=== PATIENT | female | born 1945 | race Caucasian/White ===

== ENCOUNTER 2016-07-11 23:00 | Inpatient (IN) | payer MEDICARE, MEDICAID ==
[2016-07-11] MEDS ORDERED: NORMAL SALINE 1000 ML 1,000 ML IV ONE (23:37)
[2016-07-11 23:45] LABS: VENOUS BLOOD HCO3 32.3 mmol/L (20-32); VENOUS BLOOD PCO2 60.3 mmHg (35-63); VENOUS BLOOD PH 7.35 (7.30-7.42)
[2016-07-11 23:47] LABS: ABSOLUTE EOSINOPHILS # (AUTO) 0.1 10^3/uL (0.0-0.6); ABSOLUTE LYMPHOCYTES (AUTO) 1.2 10^3/uL (0.5-4.7); ABSOLUTE MONOCYTES (AUTO) 0.8 10^3/uL (0.1-1.4); ABSOLUTE NEUT (AUTO) 6.4 10^3/uL (1.7-8.2); BASOPHILS % (AUTO) 0.1 % (0-2); EOSINOPHILS % (AUTO) 0.6 % (0-6); HEMATOCRIT 35.5 % (36.0-47.0); HEMOGLOBIN 11.8 g/dL (12.0-15.5); HGB HCT DIFFERENCE -0.1; LYMPHOCYTES % (AUTO) 13.7 % (13-45); MEAN CORPUSCULAR HEMOGLOBIN 29.1 pg (27.0-33.4); MEAN CORPUSCULAR HGB CONC 33.4 g/dL (32.0-36.0); MEAN CORPUSCULAR VOLUME 87 fl (80-97); MONOCYTES % (AUTO) 9.1 % (3-13); RED BLOOD COUNT 4.08 10^6/uL (3.72-5.28); RED CELL DISTRIBUTION WIDTH 15.5 % (11.5-14.0); SEGMENTED NEUTROPHILS % (AUTO) 76.5 % (42-78); WHITE BLOOD COUNT 8.4 10^3/uL (4.0-10.5)
[2016-07-11 23:53] LABS: PROTHROMBIN TIME 13.2 SEC (11.4-15.4)
[2016-07-11 23:59] LABS: ALANINE AMINOTRANSFERASE 31 U/L (9-52); ALKALINE PHOSPHATASE 133 U/L (38-126); ANION GAP 8 (5-19); ASPARTATE AMINO TRANSFERASE 20 U/L (14-36); BILIRUBIN,TOTAL 0.2 mg/dL (0.2-1.3); BLOOD UREA NITROGEN 42 mg/dL (7-20); CALCIUM 8.8 mg/dL (8.4-10.2); CARBON DIOXIDE 36 mmol/L (22-30); CHLORIDE 98 mmol/L (98-107); CREATINE KINASE 43 U/L (30-135); GLUCOSE 159 mg/dL (75-110); POTASSIUM 3.7 mmol/L (3.6-5.0); SODIUM 142.1 mmol/L (137-145); TOTAL PROTEIN 5.7 g/dL (6.3-8.2)
[2016-07-12 00:15] LABS: TROPONIN I 0.064 ng/mL
[2016-07-12 00:56] LABS: AMORPHOUS SEDIMENT,URINE TRACE /HPF; APPEARANCE,URINE CLOUDY; BILIRUBIN,URINE NEGATIVE (NEGATIVE); GLUCOSE, URINE NEGATIVE (NEGATIVE); KETONES,URINE NEGATIVE (NEGATIVE); LEUKOCYTE ESTERASE,URINE LARGE (NEGATIVE); NITRITE,URINE POSITIVE (NEGATIVE); PROTEIN,URINE NEGATIVE (NEGATIVE); URIC ACID CRYSTALS,URINE TOO NUMEROUS TO CNT /HPF; URINE SPECIFIC GRAVITY 1.014; UROBILINOGEN,URINE NEGATIVE mg/dL (<2.0)
[2016-07-12] MEDS: MAGNESIUM SULFATE/D5W 100 ML IV SCH ×2 (01:25)
--- NOTE | 2016-07-12 03:13 | ER Document Report ---
ED Respiratory Problem - General Time seen by provider: 01:20 Mode of Arrival: Medic Information source: Patient TRAVEL OUTSIDE OF THE [place] IN LAST 30 DAYS: No - HPI Patient complains to provider of: COPD, Short of breath Onset: Other - see HPI Context: Hx COPD Associated symptoms: Short of breath <SERGIO MEZA - Last Filed: 07/12/16 03:57> <LANA GARCIA - Last Filed: 07/12/16 05:59> - General Chief Complaint: Shortness Of Breath Stated Complaint: SHORTNESS OF BREATH Notes: Patient is a 71 year old female presenting to the emergency department complaining of shortness of breath for the past 4 days. Patient is from the [facility] and she was recently discharged from the hospital on . Patient continued her IV antibiotics until 06/21 and her steroid was recently decreased from 60-30mg. Patient states she had bronchitis in March and had pneumonia from May to May. Patient denies any chest pain or discomfort. Patient states her breathing got worse today. Patient had a 99.8 F temperature this afternoon. Patient received 2 nebulizer treatments at [facility] and 1 125 mg Solumedrol treatment from EMS in [facility]. 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 Villafana next week. (SERGIO MEZA) - Related Data Allergies/Adverse Reactions: Sulfa (Sulfonamide Antibiotics) Allergy (Intermediate, Verified 10/01/15 18:47) adhesive tape Allergy (Verified 10/01/15 18:47) atorvastatin calcium [From Lipitor] Allergy (Verified 10/01/15 18:47) celecoxib [From Celebrex] Allergy (Verified 10/01/15 18:47) Past Medical History - General Information source: Patient - Social History Smoking Status: Former Smoker Family History: Arthritis, CAD, CVA, DM, Hypertension - Past Medical History Cardiac Medical History: Reports: Hx Atrial Fibrillation, Hx Congestive Heart Failure, Hx Heart Attack, Hx Hypertension - essential, Hx Pulmonary Embolism, Hx Heart Murmur Pulmonary Medical History: Reports: Hx Asthma, Hx Bronchitis, Hx COPD, Hx Pneumonia - Recent history of MRSA pneumonia., Hx Sleep Apnea Endocrine Medical History: Reports: Hx Diabetes Mellitus Type 2 Renal/ Medical History: Reports: Hx Renal Insufficiency GI Medical History: Reports: Hx Gastroesophageal Reflux Disease, Hx Hiatal Hernia Musculoskeltal Medical History: Reports Hx Arthritis, Reports Hx Fibromyalgia, Reports Hx Gout, Reports Hx Muscle Weakness Psychiatric Medical History: Reports: Hx Anxiety, Hx Depression Infectious Medical History: Reports: Hx MRSA Past Surgical History: Reports: Hx Appendectomy, Hx Cholecystectomy, Hx Hysterectomy, Hx Orthopedic Surgery - Multiple left hip or seizures, 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 - Immunizations Hx Diphtheria, Pertussis, Tetanus Vaccination: Yes Hx Pneumococcal Vaccination: 05/20/13 <SERGIO MEZA - Last Filed: 07/12/16 03:57> Review of Systems - Review of Systems Constitutional: No symptoms reported EENT: No symptoms reported Cardiovascular: No symptoms reported Respiratory: See HPI, Short of breath, Wheezing Gastrointestinal: No symptoms reported Genitourinary: No symptoms reported Female Genitourinary: No symptoms reported Musculoskeletal: No symptoms reported Skin: No symptoms reported Hematologic/Lymphatic: No symptoms reported Neurological/Psychological: No symptoms reported -: Yes All other systems reviewed and negative <SERGIO MEZA - Last Filed: 07/12/16 03:57> Physical Exam - Vital signs Interpretation: Hypotensive, Tachycardic - General General appearance: Alert In distress: Mild - HEENT Head: Normocephalic, Atraumatic Eyes: Normal Pupils: PERRL Mucous membranes: Normal - Respiratory Respiratory status: Retractions Chest status: Nontender Breath sounds: Wheezing Chest palpation: Normal - Cardiovascular Rhythm: Regular Heart sounds: Normal auscultation - Abdominal Inspection: Normal Distension: No distension Bowel sounds: Normal Tenderness: Nontender Organomegaly: No organomegaly - Back Back: Normal, Nontender - Extremities General upper extremity: Normal inspection, Normal ROM, Normal strength General lower extremity: Normal inspection, Normal ROM, Normal strength - Neurological Neuro grossly intact: Yes Cognition: Normal Orientation: AAOx4 Upper Tract Coma Scale Eye Opening: Spontaneous Duy Coma Scale Verbal: Oriented Upper Tract Coma Scale Motor: Obeys Commands Duy Coma Scale Total: 15 Speech: Normal - Psychological Associated symptoms: Normal affect, Normal mood - Skin Skin Temperature: Warm Skin Moisture: Dry <SERGIO MEZA - Last Filed: 07/12/16 03:57> Course - Laboratory Result Diagrams: 07/11/16 23:25 07/11/16 23:25 <SERGIO MEZA - Last Filed: 07/12/16 03:57> - Laboratory Result Diagrams: 07/11/16 23:25 07/11/16 23:25 <LANA GARCIA - Last Filed: 07/12/16 05:59> - Re-evaluation Re-evalutation: 07/12/16 05:52 Patient is a 71-year-old female with a recent hospital admission for pneumonia and ESBL urine. Patient comes in with difficulty breathing. Patient was feeling better after side measuring, DuoNeb. Patient is also given magnesium. Patient was initially tachycardic and hypotensive but has responded well to fluids. Patient does still have episodes of tachycardia when she is asleep. No evidence for atrial fibrillation. Patient states that she is having increasing trouble breathing over the last 4 days. Patient will be referred to the hospital service for admission due to her COPD exacerbation today. No evidence for pneumonia. Patient has been afebrile. Patient is concerned about her urine and does have some white blood cells leuk esterase. Ertapenem was started. Cultures have been sent. (LANA GARCIA) - Vital Signs Vital signs: Temp Pulse Resp BP Pulse Ox 98.1 F 130/70 H 95 07/11/16 23:04 07/12/16 01:31 07/12/16 01:31 (SERGIO MEZA) (LANA GARCIA) - Laboratory Laboratory results interpreted by me: 07/11/16 07/11/16 07/11/16 23:25 23:25 23:25 Hgb 11.8 L Hct 35.5 L RDW 15.5 H VBG HCO3 32.3 H Carbon Dioxide 36 H BUN 42 H Est GFR ( Amer) 53 L Est GFR (Non-Af Amer) 44 L Glucose 159 H Alkaline Phosphatase 133 H Total Protein 5.7 L Albumin 3.0 L Urine Nitrite Ur Leukocyte Esterase Urine Ascorbic Acid 07/12/16 00:34 Hgb Hct RDW VBG HCO3 Carbon Dioxide BUN Est GFR ( Amer) Est GFR (Non-Af Amer) Glucose Alkaline Phosphatase Total Protein Albumin Urine Nitrite POSITIVE H Ur Leukocyte Esterase LARGE H Urine Ascorbic Acid 40 H (SERGIO MEZA) (LANA GARCIA) Discharge <SERGIO MEZA - Last Filed: 07/12/16 03:57> - Discharge Admitting Provider: Hospitalist Unit Admitted: I[facility]U <LANA GARCIA - Last Filed: 07/12/16 05:59> - Discharge Clinical Impression: Obstructive sleep apnea, COPD exacerbation Urinary tract infection Qualifiers: Urinary tract infection type: catheter-associated UTI Indwelling urinary catheter type: indwelling urethral catheter Encounter type: initial encounter Qualified Code(s): T83.511A - Infection and inflammatory reaction due to indwelling urethral catheter, initial encounter Condition: Stable Disposition: ADMITTED INPATIENT Referrals: MUSA HODGSON MD [Primary Care Provider] - Follow up as needed Scribe Attestation: 07/12/16 05:59 I personally performed the services described in the documentation, reviewed and edited the documentation which was dictated to the scribe in my presence, and it accurately records my words and actions. (LANA GARCIA) Scribe Documentation <SERGIO MEZA - Last Filed: 07/12/16 03:57> <LANA GARCIA - Last Filed: 07/12/16 05:59> - Scribe Written by Liliane:: SEFERINO HANCOCK 07/12/16 0552 Acting as scribe for: Dr. Garcia (SERGIO MEZA) (LANA GARCIA)
[2016-07-12] MEDS ORDERED: IPRATROPIUM/ALBUTEROL 0.5-2.5 MG/3 ML AMPUL NEB ONE (04:26)
[2016-07-12] MEDS ORDERED: ERTAPENEM SODIUM INJ 1 GM VIAL IV ONE (04:27)
[2016-07-12] MEDS ORDERED: LEVALBUTEROL HCL NEB 0.63 MG/3 ML AMPUL NEB PRN (08:21)
[2016-07-12] MEDS ORDERED: VANCOMYCIN HCL 0 MG in DEXTROSE 5%-WATER 250 ML IV NR (08:30)
--- NOTE | 2016-07-12 09:04 | PDOC H&P ---
History of Present Illness Admission Date/PCP: 07[facility]12[facility]16 06[facility] Patient complains of: Dyspnea History of Present Illness: PORSHA WALDRON is a 71 year old female who is well known to the hospitalist and the emergency department. The patient presented to the emergency department from [facility] complaining of shortness of breath for the past 4 days. The patient has frequent readmissions due to recurrent pneumonia and UTIs associated with chronic indwelling catheter. She was recently discharged from the hospital on 06/10. Patient continued her IV antibiotics until 06/21 and her steroid was recently decreased from 60-30mg. Patient states she had bronchitis in March and had pneumonia from May to May. Patient denies any chest pain or discomfort. Patient states her breathing got worse just prior to presentation. Patient had a 99.8 F temperature the evening of presentation. Patient received 2 nebulizer treatments at [facility] and 125 mg Solumedrol treatment from EMS in [facility]. Patient states she has an appointment with her swinging cut off saw operator Dr. Ahuja next week. Upon presentation to emergency department the patient was found to have a significant white count and findings on UA a to suggest a urinary tract infection. Although the patient's chest x-ray did not show an overt area of pneumonia the patient is significantly congested and is requiring O2. The patient's been referred to the hospitalist remission and management. MEDICATIONS: The medications listed in this document may have been auto- populated from previous contact and may not been verified or reconciled. This may not be an accurate reflection of the patient's home medication(s); however, authors are unable to edit or delete the medications listed in this document as "home medications". Past Medical History Cardiac Medical History: Reports: Atrial Fibrillation, Congestive Heart Failure - Diastolic dysfunction, Myocardial Infarction, Hypertension - essential, Pulmonary Embolism Pulmonary Medical History: Reports: Chronic Obstructive Pulmonary Disease (COPD) , Pneumonia - Recurrent MRSA pneumonia., Sleep Apnea - Uses C Pap Endocrine Medical History: Reports: Diabetes Mellitus Type 2, Other - Adrenal insufficiency Renal/ Medical History: Reports: Chronic Kidney Disease - Stage II to 3 GI Medical History: Reports: Gastroesophageal Reflux Disease, Hiatal Hernia Musculoskeltal Medical History: Reports: Arthritis, Fibromyalgia, Gout, Other - Bedbound status Psychiatric Medical History: Reports: Depression, General Anxiety Disorder - Benzodiazepine dependency continuous, Other - Opiate dependency continuous Hematology: Reports: Anemia Infectious Medical History: Reports: Methicillin-Resistant Staph Aureus Past Surgical History Past Surgical History: Reports: Appendectomy, Cholecystectomy, Hysterectomy, Orthopedic Surgery - Multiple left hip or seizures, 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 Social History Information Source: Patient Occupation: Disabled, retired Lives with: [facility] Smoking Status: Former Smoker Frequency of Alcohol Use: None Hx Recreational Drug Use: No Drugs: None Hx Prescription Drug Abuse: No - Advance Directive Resuscitation Status: Do Not Resuscitate - Portable DO NOT RESUSCITATE DO NOT INTUBATE Surrogate healthcare decision maker:: Her granddaughter Family History Family History: Arthritis, CAD, CVA, DM, Hypertension Parental Family History Reviewed: Yes Children Family History Reviewed: Yes Sibling(s) Family History Reviewed.: Yes Medication/Allergy Home Medications: Fluticasone Propionate [Flonase Nasal [place] 50 Mcg/[place] 16 gm] 2 spray IH Q12 04/02/15 Olopatadine HCl [Patanol 0.1% Oph Soln 5 ml] 1 drop BTH_EYE DAILY 04/02/15 Tiotropium [place] [Spiriva Handihaler 18 mcg/dose (30 Dose)] 1 cap IH DAILY 09/12 Sennosides/Docusate 8.6-50 mg [Senna Plus Tablet] 1 each PO BID #60 tablet 04/06 Apixaban [Eliquis 2.5 mg Tablet] 2.5 mg PO BID 09/09/15 Cetirizine HCl [Zyrtec 10 mg Tablet] 10 mg PO QHS 09/09/15 Montelukast Sodium [Singulair 10 mg Tablet] 10 mg PO DAILY 09/09/15 Amlodipine Besylate [Norvasc 5 mg Tablet] 5 mg PO DAILY 11/07/15 Polyethylene Glycol 3350 [Miralax Powder 17 gm/Packet] 1 packet PO BID 11/07/15 Simethicone [Gas-X] 80 mg PO DAILY PRN 11/07/15 Melatonin 5 mg PO QHS 11/13/15 Ascorbic Acid [Vitamin C 500 mg Tablet] 500 mg PO BID 01/05/16 Benzonatate [Tessalon Perle 100 mg Capsule] 400 mg PO QHS 01/05/16 Clonidine HCl [Catapres 0.2 mg Tablet] 0.2 mg PO Q12 01/05/16 Duloxetine HCl [Cymbalta] 90 mg PO DAILY 01/05/16 Ferrous Sulfate [Feosol] 325 mg PO BID 01/05/16 Saccharomyces Boulardii [Florastor] 250 mg PO BID 01/05/16 Budesonide [Pulmicort Neb 0.5 mg/2 ml Ampul] 0.5 mg NEB RTQ12 ampul.neb Bupropion HCl [Wellbutrin 75 mg Tablet] 75 mg PO DAILY tablet 01/10/16 Albuterol Sulfate [Ventolin 0.083% Neb 2.5 mg/3 mL Ampul] 2.5 mg NEB RTQ6 PRN Ipratropium [place] [Atrovent 0.06% Nasal [place]] 1 spray NASL BID 02/12/16 Potassium Chloride [Klor-Con 10 Meq Tablet.sa] 20 meq PO Q12 tablet.sa Hydrocortisone Acetate [Hydrocortisone] 1 applic TD Q8 04/18/16 Mag Oxide/D3/Turmeric Rt Xt [Magnesium-Vit D3-Turmeric Cap] 400 mg PO BID Menthol [Biofreeze] 1 applic TD Q8 PRN 04/18/16 Baclofen [Baclofen 10 mg Tablet] 10 mg PO TID #20 tablet 04/23/16 Lidocaine [Lidoderm 5% (700 mg) Transdermal Patch] 3 patch TP DAILY #7 adh..patch 04/23/16 Alprazolam [Xanax 0.25 mg Tablet] 0.25 mg PO TID #15 tablet 05/18/16 Fentanyl [Duragesic 50 Mcg/Hr Transdermal Patch] 1 each TD Q3DAYS #2 patch.td72 05/18/16 Clonidine HCl [Catapres 0.2 mg Tablet] 0.2 mg PO Q12 06/10/16 Cranberry [Cranberry 400 mg Capsule] 1 tab PO BID 06/10/16 Gabapentin 300 mg PO TID 06/10/16 Omeprazole Magnesium [Prilosec Otc] 1 tab PO QAM 06/10/16 Oxycodone HCl [Oxycodone HCl 10 MG Tablet] 10 mg PO Q6 06/10/16 Ertapenem Sodium [Invanz Inj 1 gm Vial] 1 gm IV DAILY #5 vial 06/15/16 Furosemide [Lasix 40 mg Tablet] 40 mg PO BID tablet 06/15/16 Guaifenesin [Mucinex Sr 600 mg Tablet.sa] 1,200 mg PO Q12 tablet.sa 06/15/16 Pregabalin [Lyrica 100 mg Capsule] 100 mg PO TID #90 capsule 06/15/16 Acetaminophen [Tylenol 325 mg Tablet] 650 mg PO Q4HP PRN tablet 06/16/16 Glipizide [Glucotrol 10 mg Tablet] 10 mg PO BIDBS tablet 06/16/16 Insulin Glargine,Hum.rec.anlog [Lantus] 20 unit SQ QAM #1 vial 06/16/16 Metformin HCl 500 mg PO BID #60 tablet 06/16/16 Prednisone [Deltasone 20 mg Tablet] 30 mg PO BID tablet 06/16/16 Sitagliptin Phosphate [Januvia 50 mg Tablet] 50 mg PO BIDACBS tablet 06/16/16 Allergies/Adverse Reactions: Sulfa (Sulfonamide Antibiotics) Allergy (Intermediate, Verified 10/01/15 18:47) adhesive tape Allergy (Verified 10/01/15 18:47) atorvastatin calcium [From Lipitor] Allergy (Verified 10/01/15 18:47) celecoxib [From Celebrex] Allergy (Verified 10/01/15 18:47) Review of Systems Constitutional: PRESENT: chills, fatigue, fever(s), headache(s), weakness. ABSENT: anorexia, weight gain, weight loss Eyes: ABSENT: visual disturbances Ears: ABSENT: hearing changes Nose, Mouth, and Throat: PRESENT: headache(s), sore throat, vertigo. ABSENT: mouth pain Cardiovascular: PRESENT: dyspnea on exertion, edema, orthropnea. ABSENT: chest pain, palpitations Respiratory: PRESENT: cough, dyspnea. ABSENT: hemoptysis, sputum Gastrointestinal: PRESENT: abdominal pain, bloating, constipation, heartburn, nausea. ABSENT: coffee ground emesis, diarrhea, dysphagia, hematemesis, hematochezia, melena, vomiting Genitourinary: PRESENT: other - Indwelling catheter. ABSENT: hematuria Musculoskeletal: PRESENT: back pain - Chronic, muscle weakness - Chronic. ABSENT: joint swelling Integumentary: PRESENT: diaphoresis. ABSENT: erythema, lesions, pruritus, rash Neurological: PRESENT: memory loss - Associated polypharmacy, vertigo, weakness. ABSENT: abnormal speech, confusion, convulsions, dizziness, focal weakness, frequent falls, lack of coordination, numbness, paresthesias, restless legs, syncope, tingling, tremor(s) Psychiatric: PRESENT: anxiety, depression. ABSENT: hallucinations, homidical ideation, suicidal ideation Endocrine: ABSENT: cold intolerance, flushing, heat intolerance, polydipsia, polyphagia, polyuria Hematologic/Lymphatic: ABSENT: easy bleeding, easy bruising, lymphadenopathy Allergic/Immunologic: PRESENT: seasonal rhinorrhea Physical Exam Vital Signs: Temp Pulse Resp BP Pulse Ox 98.1 F 128/66 H 96 07/11/16 23:04 07/12/16 07:21 07/12/16 07:21 General appearance: PRESENT: no acute distress, cooperative, disheveled, obese, other - Chronically ill-appearing Head exam: PRESENT: atraumatic, normocephalic Eye exam: PRESENT: conjunctiva pale, periorbital swelling, PERRLA. ABSENT: scleral icterus Ear exam: PRESENT: normal external ear exam Mouth exam: PRESENT: moist, neck supple, tongue midline. ABSENT: dry mucosa, laceration Teeth exam: ABSENT: poor dentation Throat exam: ABSENT: post pharyngeal erythema, tonsillar erythema Neck exam: ABSENT: carotid bruit, full ROM, JVD, lymphadenopathy, tenderness, thyromegaly, tracheal deviation, tracheostomy Respiratory exam: PRESENT: accessory muscle use, decreased breath sounds, rhonchi, symmetrical, tachypnea, wheezes. ABSENT: chest wall tenderness, unlabored Cardiovascular exam: PRESENT: RRR. ABSENT: gallop, irregular rhythm, tachycardia Pulses: PRESENT: +1 pedal pulses bilateral Vascular exam: PRESENT: pallor GI/Abdominal exam: PRESENT: firm, normal bowel sounds. ABSENT: ascites, diminished bowel sounds, distended, guarding, mass, organolmegaly, tenderness Rectal exam: PRESENT: deferred Gentrourinary exam: PRESENT: indwelling catheter - Sediment field Extremities exam: PRESENT: clubbing. ABSENT: pedal edema, tenderness Musculoskeletal exam: ABSENT: ambulatory Neurological exam: PRESENT: alert, awake, oriented to person, oriented to place , oriented to time, oriented to situation. ABSENT: normal gait, aphasic Psychiatric exam: PRESENT: anxious, unusual affect, other - Patient is at her baseline. ABSENT: homicidal ideation, suicidal ideation Skin exam: PRESENT: dry, intact, pallor. ABSENT: cyanosis, erythema, jaundice Results Laboratory Results: Labs- Last Values WBC 8.4 10^3/uL (4.0-10.5) 07/11/16 23: RBC 4.08 10^6/uL (3.72-5.28) 07/11/16 23:25 Hgb 11.8 g/dL (12.0-15.5) L 07/11/16 23:25 Hct 35.5 % (36.0-47.0) L 07/11/16 23: MCV 87 fl (80-97) 07/11/16 23: MCH 29.1 pg (27.0-33.4) 07/11/16: MCHC 33.4 g/dL (32.0-36.0) 07/11/16: RDW 15.5 % (11.5-14.0) H 07/11/16: Plt Count 160 10^3/uL (150-450) 07/11/16: Seg Neutrophils % 76.5 % (42-78) 07/11/16: Lymphocytes % 13.7 % (13-45) 07/11/16: Monocytes % 9.1 % (3-13) 07/11/16: Eosinophils % 0.6 % (0-6) 07/11/16: Basophils % 0.1 % (0-2) 07/11/16: Absolute Neutrophils 6.4 10^3/uL (1.7-8.2) 07/11/16: Absolute Lymphocytes 1.2 10^3/uL (0.5-4.7) 07/11/16: Absolute Monocytes 0.8 10^3/uL (0.1-1.4) 07/11/16: Absolute Eosinophils 0.1 10^3/uL (0.0-0.6) 07/11/16: Absolute Basophils 0.0 10^3/uL (0.0-0.2) 07/11/16 23:25 PT 13.2 SEC (11.4-15.4) 07/11/16 23:25 INR 0.97 07/11/16 23: VBG pH 7.35 (7.30-7.42) 07/11/16 23:25 VBG pCO2 60.3 mmHg (35-63) 07/11/16 23:25 VBG HCO3 32.3 mmol/L (20-32) H 07/11/16 23:25 VBG Base Excess 5.0 mmol/L 07/11/16 23:25 Sodium 142.1 mmol/L (137-145) 07/11/16 23:25 Potassium 3.7 mmol/L (3.6-5.0) 07/11/16 23:25 Chloride 98 mmol/L (98-107) 07/11/16 23:25 Carbon Dioxide 36 mmol/L (22-30) H 07/11/16 23:25 Anion Gap 8 (5-19) 07/11/16 23:25 BUN 42 mg/dL (7-20) H 07/11/16 23:25 Creatinine 1.20 mg/dL (0.52-1.25) 07/11/16 23:25 Est GFR ( Amer) 53 (>60) L 07/11/16:25 Est GFR (Non-Af Amer) 44 (>60) L 07/11/16 23:25 Glucose 159 mg/dL (75-110) H 07/11/16 23:25 Lactic Acid 1.5 mmol/L (0.7-2.1) 07/11/16:25 Calcium 8.8 mg/dL (8.4-10.2) 07/11/16:25 Total Bilirubin 0.2 mg/dL (0.2-1.3) 07/11/16: Direct Bilirubin 0.0 mg/dL (0.0-0.3) 07/11/16 23:25 AST 20 U/L (14-36) 07/11/16 23:25 ALT 31 U/L (9-52) 07/11/16 23:25 Alkaline Phosphatase 133 U/L (38-126) H 07/11/16 23:25 Creatine Kinase 43 U/L (30-135) 07/11/16 23:25 CK-MB (CK-2) 2.00 ng/mL (<4.55) 07/11/16 23:25 Troponin I 0.064 ng/mL 07/11/16 23:25 NT-Pro-B Natriuret Pep 852 pg/mL (5-900) 07/11/16 23:25 Total Protein 5.7 g/dL (6.3-8.2) L 07/11/16 23:25 Albumin 3.0 g/dL (3.5-5.0) L 07/11/16 23:25 Urine Color YELLOW 07/12/16 00:34 Urine Appearance CLOUDY 07/12/16 00:34 Urine pH 8.0 (5.0-9.0) 07/12/16 00:34 Ur Specific [place] 1.014 07/12/16 00:34 Urine Protein NEGATIVE mg/dL (NEGATIVE) 07/12/16 00:34 Urine Glucose (UA) NEGATIVE mg/dL (NEGATIVE) 07/12/16 00:34 Urine Ketones NEGATIVE mg/dL (NEGATIVE) 07/12/16 00:34 Urine Blood NEGATIVE (NEGATIVE) 07/12/16 00:34 Urine Nitrite POSITIVE (NEGATIVE) H 07/12/16 00:34 Urine Bilirubin NEGATIVE (NEGATIVE) 07/12/16 00:34 Urine Urobilinogen NEGATIVE mg/dL (<2.0) 07/12/16 00:34 Ur Leukocyte Esterase LARGE (NEGATIVE) H 07/12/16 00:34 Urine WBC (Auto) 12 /HPF 07/12/16 00:34 Urine RBC (Auto) 3 /HPF 07/12/16 00:34 Squamous Epi Cells Auto 1 /HPF 07/12/16 00:34 Uric Acid Cryst (Auto) TOO NUMEROUS TO CNT /HPF 07/12/16 00:34 Amorphous Sediment Auto TRACE /HPF 07/12/16 00:34 Urine Ascorbic Acid 40 (NEGATIVE) H 07/12/16 00:34 Impressions: Chest X-Ray 07/11/16 23:04 IMPRESSION: HEART ENLARGED WITHOUT FAILURE. NO OTHER SIGNIFICANT RADIOGRAPHIC FINDING IN THE CHEST. Assessment & Plan - Diagnosis (1) UTI (urinary tract infection) due to urinary indwelling Barton catheter Qualifiers: Indwelling urinary catheter type: indwelling urethral catheter Encounter type: initial encounter Qualified Code(s): T83.511A - Infection and inflammatory reaction due to indwelling urethral catheter, initial encounter; N39.0 - Urinary tract infection, site not specified Is this a current diagnosis for this admission?: YesPlan: Will start the patient broad-spectrum antibiotic coverage and await culture and sensitivity. 07/12/16 00:34 Ur Leukocyte Esterase LARGE H Urine WBC (Auto) 12 06/10/16 08:20 Urine Culture - Final Catheterized Urine Escherichia Coli Esbl 07/12/16 00:34 Urine Culture - Pending Catheterized Urine (2) Acute exacerbation of chronic obstructive pulmonary disease (COPD) Is this a current diagnosis for this admission?: YesPlan: Will schedule nebulizers and steroids. (3) Obstructive sleep apnea Is this a current diagnosis for this admission?: YesPlan: Will add C Pap at night (4) Adrenal insufficiency Is this a current diagnosis for this admission?: YesPlan: Resume home steroids. (5) Chronic kidney disease Qualifiers: Chronic kidney disease stage: stage 3 (moderate) Qualified Code(s): N18.3 - Chronic kidney disease, stage 3 (moderate) Is this a current diagnosis for this admission?: YesPlan: Patient is around her baseline. 05/18/16 07/11/16 06:40 23:25 Creatinine 1.04 1.20 (6) Diabetes mellitus type II, controlled Qualifiers: Diabetes mellitus complication status: without complication Diabetes mellitus exterminator helper insulin use: without nursing home use Qualified Code(s): E11.9 - Type 2 diabetes mellitus without complications Is this a current diagnosis for this admission?: YesPlan: Will continue home medications. (7) Diastolic dysfunction Is this a current diagnosis for this admission?: YesPlan: Patient appears optivolemic at this point. (8) Gastroesophageal reflux disease Qualifiers: Esophagitis presence: without esophagitis Qualified Code(s): K21.9 - Gastro-esophageal reflux disease without esophagitis Is this a current diagnosis for this admission?: YesPlan: Will continue home medications. 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 (11) Major depression Qualifiers: Major depression recurrence: recurrent Active/Remission status: remission status unspecified Qualified Code(s): F33.9 - Major depressive disorder, recurrent, unspecified Is this a current diagnosis for this admission?: YesPlan: Will continue home medications. (12) Morbid (severe) obesity with alveolar hypoventilation Is this a current diagnosis for this admission?: Yes (13) Physical debility Is this a current diagnosis for this admission?: Yes (14) A-fib Qualifiers: Atrial fibrillation type: paroxysmal Qualified Code(s): I48.0 - Paroxysmal atrial fibrillation Is this a current diagnosis for this admission?: Yes (15) Anemia, chronic disease Is this a current diagnosis for this admission?: Yes (16) Generalized anxiety disorder Is this a current diagnosis for this admission?: YesPlan: Will continue home medications. (17) Benzodiazepine dependence, continuous Is this a current diagnosis for this admission?: YesPlan: Will continue home medications. (18) Chronic pain syndrome Is this a current diagnosis for this admission?: Yes (19) Opiate dependence, continuous Is this a current diagnosis for this admission?: Yes (20) Polypharmacy Is this a current diagnosis for this admission?: Yes (21) DVT prophylaxis Is this a current diagnosis for this admission?: Yes (22) Do not resuscitate Is this a current diagnosis for this admission?: Yes (23) History of MRSA infection of lungs Is this a current diagnosis for this admission?: Yes (24) History of ESBL E. coli infection Is this a current diagnosis for this admission?: Yes - Time Time Spent with patient: Time spent on this admission including assessment, plan, physical examination, extensive review of records, and patient education is 70 minutes. Time Spent: Greater than 70 Minutes Medications reviewed and adjusted accordingly: Yes Anticipated discharge: SNF Within: within 48 hours Disposition: The patient is a DO NOT RESUSCITATE DO NOT INTUBATE. Pending patient's symptomatology and diagnostic findings will reevaluate as needed. - Inpatient Certification Based on my medical assessment, after consideration of the patient's comorbidities, presenting symptoms, or acuity I expect that the services needed warrant INPATIENT care.: Yes I certify that my determination is in accordance with my understanding of Medicare's requirements for reasonable and necessary INPATIENT services [42 CFR 412.3e].: Yes Medical Necessity: Significant Comorbidiites Make Outpatient Treatment Too Risky , Need Close Monitoring Due to Risk of Patient Decompensation, Need For Continuous Telemetry Monitoring, Need for Nebulizer Therapy and Monitoring of Response, Need for Pain Control, Need for IV Antibiotics Post Hospital Care: D/C or Transfer Summary
--- NOTE | 2016-07-12 09:43 | EKG REPORT ---
SEVERITY:- ABNORMAL ECG - SINUS TACHYCARDIA WITH IRREGULAR RATE [id number] INCOMPLETE LEFT BUNDLE BRANCH BLOCK LVH WITH SECONDARY REPOLARIZATION ABNORMALITY : Confirmed by: Yesenia Graham MD 12-Jul-2016 09:42:03
[2016-07-12 10:11] LABS: HEMATOCRIT 35.7 % (36.0-47.0); HEMOGLOBIN 11.8 g/dL (12.0-15.5); HGB HCT DIFFERENCE -0.3; MEAN CORPUSCULAR VOLUME 88 fl (80-97); RED BLOOD COUNT 4.07 10^6/uL (3.72-5.28); RED CELL DISTRIBUTION WIDTH 15.8 % (11.5-14.0); WHITE BLOOD COUNT 11.9 10^3/uL (4.0-10.5)
[2016-07-12 10:26] LABS: ANION GAP 11 (5-19); BLOOD UREA NITROGEN 35 mg/dL (7-20); CALCIUM 8.8 mg/dL (8.4-10.2); CARBON DIOXIDE 32 mmol/L (22-30); CHLORIDE 100 mmol/L (98-107); GLUCOSE 246 mg/dL (75-110); MAGNESIUM 2.7 mg/dL (1.6-2.3); POTASSIUM 4.2 mmol/L (3.6-5.0); SODIUM 143.3 mmol/L (137-145)
[2016-07-12 10:46] LABS: ANISOCYTOSIS SLIGHT; BASOPHILS % (MANUAL) 0 % (0-2); EOSINOPHILS % (MANUAL) 0 % (0-6); LYMPHOCYTES % (MANUAL) 4 % (13-45); TOTAL CELLS COUNTED 100; TOXIC GRANULATION SLIGHT
[2016-07-12] MEDS ORDERED: VANCOMYCIN HCL 1,500 MG in DEXTROSE 5%-WATER 250 ML IV ONE (11:00)
[2016-07-12] MEDS ORDERED: ACETAMINOPHEN 325 MG TABLET PO PRN ×2 (11:37→14:53)
[2016-07-12] MEDS ORDERED: (PENDING PHARMACY ID) (Menthol [Biofreeze] 1 APPLIC) TD PRN (11:37)
[2016-07-12] MEDS ORDERED: SIMETHICONE 80 MG TAB.CHEW PO PRN (11:37)
[2016-07-12] MEDS ORDERED: DULOXETINE HCL 90 MG PO SCH (11:45)
[2016-07-12] MEDS ORDERED: PIPERACILLIN SODIUM/TAZOBACTAM 4.5 GM in NORMAL SALINE 100 ML IV SCH (12:00)
[2016-07-12] MEDS ORDERED: LIDOCAINE 5% (700 MG) TRANSDERMAL ADH..PATCH TP ONE (13:00)
[2016-07-12] MEDS ORDERED: FENTANYL 50 MCG/HR PATCH.TD72 TD ONE (13:45)
[2016-07-12] MEDS ORDERED: GUAIFENESIN 600 MG TABLET.SA PO ONE (14:00)
[2016-07-12] MEDS ORDERED: MONTELUKAST SODIUM 10 MG TABLET PO ONE (14:00)
[2016-07-12] MEDS ORDERED: ALBUTEROL SULFATE 0.083% NEB 2.5 MG/3 ML AMPUL NEB SCH (14:00)
[2016-07-12] MEDS ORDERED: HYDROCORTISONE ACETATE TD SCH (14:00)
[2016-07-12] MEDS: LEVALBUTEROL HCL NEB 1.25 MG/3 ML AMPUL NEB SCH ×2 (14:25→19:27)
[2016-07-12] MEDS: ALPRAZOLAM 0.25 MG TABLET PO SCH ×2 (15:39→18:23)
[2016-07-12] MEDS: GABAPENTIN 300 MG CAPSULE PO SCH ×2 (15:39→21:24)
[2016-07-12] MEDS: BACLOFEN 10 MG TABLET PO SCH ×2 (15:40→21:24)
[2016-07-12] MEDS: PREGABALIN 100 MG CAPSULE PO SCH ×2 (15:40→18:23)
[2016-07-12] MEDS: SITAGLIPTIN PHOSPHATE 50 MG TABLET PO SCH (15:40)
[2016-07-12] MEDS ORDERED: CLONIDINE HCL 0.2 MG TABLET PO ONE (16:00)
[2016-07-12] MEDS: GLIPIZIDE 10 MG TABLET PO SCH (16:02)
[2016-07-12] MEDS ORDERED: D3 PO SCH (18:00)
[2016-07-12] MEDS ORDERED: CRANBERRY PO SCH (18:00)
[2016-07-12] MEDS ORDERED: (PENDING PHARMACY ID) (Saccharomyces Boulardii [Florastor] 250 MG) PO SCH (18:00)
[2016-07-12] MEDS ORDERED: TURMERIC RT XT PO SCH (18:00)
[2016-07-12] MEDS ORDERED: [UNRECOGNIZED DRUG - OTHER] PO SCH (18:00)
[2016-07-12] MEDS ORDERED: MAG OXIDE PO SCH (18:00)
[2016-07-12] MEDS: LACTOBACILLUS ACIDOPHILUS 250 MG TAB PO SCH (18:10)
[2016-07-12] MEDS: PREDNISONE 10 MG TABLET PO SCH (18:11)
[2016-07-12] MEDS: FERROUS SULFATE 325 MG TABLET PO SCH (18:11)
[2016-07-12] MEDS: MAGNESIUM OXIDE 400 MG TABLET PO SCH (18:11)
[2016-07-12] MEDS: METFORMIN HCL 500 MG TABLET PO SCH (18:12)
[2016-07-12] MEDS: FUROSEMIDE 40 MG TABLET PO SCH (18:12)
[2016-07-12] MEDS: SENNOSIDES/DOCUSATE 8.6-50 MG 1 EACH TABLET PO SCH (18:12)
[2016-07-12] MEDS: OXYCODONE HCL IR 5 MG TABLET PO SCH ×2 (18:13→23:37)
[2016-07-12] MEDS: APIXABAN 2.5 MG TABLET PO SCH (18:14)
[2016-07-12] MEDS: ASCORBIC ACID 500 MG TABLET PO SCH (18:14)
[2016-07-12] MEDS: POLYETHYLENE GLYCOL 3350 POWDER 17 GM/1 PACKET PO SCH (18:14)
[2016-07-12] MEDS: IPRATROPIUM BROMIDE 0.06% NASAL SPRAY 15 ML NASL SCH (18:20)
[2016-07-12] MEDS: HYDROCORTISONE 0.5% CREAM 28.35 GM TP SCH ×2 (18:23→21:31)
[2016-07-12] MEDS: BUDESONIDE NEB 0.5 MG/2 ML AMPUL NEB SCH (19:28)
[2016-07-12] MEDS: CLONIDINE HCL 0.2 MG TABLET PO SCH (21:23)
[2016-07-12] MEDS: CETIRIZINE 10 MG TABLET PO SCH (21:23)
[2016-07-12] MEDS: PIPERACILLIN SODIUM/TAZOBACTAM 4.5 GM in NORMAL SALINE 100 ML IV SCH (21:23)
[2016-07-12] MEDS: BENZONATATE 100 MG CAPSULE PO SCH (21:24)
[2016-07-12] MEDS: GUAIFENESIN 600 MG TABLET.SA PO SCH (21:25)
[2016-07-12] MEDS: POTASSIUM CHLORIDE 10 MEQ TABLET.SA PO SCH (21:25)
[2016-07-12] MEDS: FLUTICASONE NASAL SPRAY 50 MCG/SPRY 120 SPRAY/16 GM NASL SCH (21:32)
[2016-07-12] MEDS ORDERED: (PENDING PHARMACY ID) (Melatonin [Melatonin] 5 MG) PO SCH (22:00)
[2016-07-12] MEDS: DILTIAZEM HCL INJ 25 MG/5 ML VIAL IV PRN (23:32)
[2016-07-13] MEDS: PIPERACILLIN SODIUM/TAZOBACTAM 4.5 GM in NORMAL SALINE 100 ML IV SCH ×4 (03:38→20:57)
[2016-07-13 04:36] LABS: VENOUS BLOOD BASE EXCESS 5.4 mmol/L; VENOUS BLOOD HCO3 32.9 mmol/L (20-32); VENOUS BLOOD PCO2 56.3 mmHg (35-63); VENOUS BLOOD PH 7.38 (7.30-7.42)
[2016-07-13] MEDS: OXYCODONE HCL IR 5 MG TABLET PO SCH ×3 (06:13→18:46)
[2016-07-13] MEDS: LANSOPRAZOLE 15 MG TAB.RAP.DR PO SCH (06:13)
[2016-07-13] MEDS: HYDROCORTISONE 0.5% CREAM 28.35 GM TP SCH ×3 (06:14→22:58)
[2016-07-13] MEDS: GABAPENTIN 300 MG CAPSULE PO SCH ×3 (06:14→22:52)
[2016-07-13] MEDS: BACLOFEN 10 MG TABLET PO SCH ×3 (06:14→22:52)
[2016-07-13] MEDS: LEVALBUTEROL HCL NEB 1.25 MG/3 ML AMPUL NEB SCH ×3 (07:37→19:03)
[2016-07-13] MEDS: BUDESONIDE NEB 0.5 MG/2 ML AMPUL NEB SCH ×2 (07:38→19:04)
[2016-07-13] MEDS ORDERED: (PENDING PHARMACY ID) (Omeprazole Magnesium [Prilosec Otc] 1 TAB) PO SCH (08:00)
[2016-07-13] MEDS: GLIPIZIDE 10 MG TABLET PO SCH ×2 (08:42→16:25)
[2016-07-13] MEDS: SITAGLIPTIN PHOSPHATE 50 MG TABLET PO SCH ×2 (08:42→16:24)
[2016-07-13] MEDS: INSULIN GLARGINE,HUM.REC.ANLOG 300 UNIT/3 ML INSULN.PEN SUBCUT SCH (08:42)
--- NOTE | 2016-07-13 09:14 | PDOC PROGRESS REPORT ---
Subjective Progress Note for:: 07/13/16 Subjective:: The patient is currently lying in bed. The patient denies any vomiting, diarrhea, , dizziness, chest pain, fevers, or chills. Overnight the patient states that she did have a strong cough which was productive of yellow sputum. The patient states that "my heart went crazy overnight" describing heart palpitations. Patient did have some episodes of sinus tachycardia but no evidence of atrial fibrillation was noted on the monitor. Patient admits to persistent dyspnea. These are mainly associated with her neb treatments. The patient has remained afebrile. Blood pressures have been in a good range. The patient voices no other concerns at this time. Review of systems: The rest of the review of systems is negative. Physical Exam Vital Signs: Temp Pulse Resp BP Pulse Ox 98.2 F 73 19 128/75 H 97 07/13/16 07:40 07/13/16 07:40 07/13/16 07:40 07/13/16 07:40 07/13/16 07:40 Intake & Output 07/11/16 07/12/16 07/13/16 23:59 23:59 23:59 Intake Total 322 715 Output Total 1800 1350 Balance -1478 -635 Weight 105.4 kg 248.7 kg General appearance: PRESENT: no acute distress, cooperative, disheveled, obese, other - Chronically ill-appearing Head exam: PRESENT: atraumatic, normocephalic Eye exam: PRESENT: conjunctiva pale, periorbital swelling, PERRLA. ABSENT: scleral icterus Ear exam: PRESENT: normal external ear exam Mouth exam: PRESENT: moist, neck supple, tongue midline. ABSENT: dry mucosa, laceration Teeth exam: ABSENT: poor dentation Throat exam: ABSENT: post pharyngeal erythema, tonsillar erythema Neck exam: ABSENT: carotid bruit, full ROM, JVD, lymphadenopathy, tenderness, thyromegaly, tracheal deviation, tracheostomy Respiratory exam: PRESENT: no accessory muscle use, decreased breath sounds, symmetrical, wheezes. ABSENT: chest wall tenderness, unlabored Cardiovascular exam: PRESENT: RRR. ABSENT: gallop, irregular rhythm, tachycardia Pulses: PRESENT: +1 pedal pulses bilateral Vascular exam: PRESENT: pallor GI/Abdominal exam: PRESENT: firm, normal bowel sounds. ABSENT: ascites, diminished bowel sounds, distended, guarding, mass, organolmegaly, tenderness Rectal exam: PRESENT: deferred Gentrourinary exam: PRESENT: indwelling catheter - Sediment field Extremities exam: PRESENT: clubbing. ABSENT: pedal edema, tenderness Musculoskeletal exam: ABSENT: ambulatory Neurological exam: PRESENT: alert, awake, oriented to person, oriented to place , oriented to time, oriented to situation. ABSENT: normal gait, aphasic Psychiatric exam: PRESENT: anxious, unusual affect, other - Patient is at her baseline. ABSENT: homicidal ideation, suicidal ideation Skin exam: PRESENT: dry, intact, pallor. ABSENT: cyanosis, erythema, jaundice Results Laboratory Results: 07/12/16 09:00 07/12/16 09:00 07/12/16 07/12/16 07/12/16 09:00 09:00 09:00 WBC 11.9 H RBC 4.07 Hgb 11.8 L Hct 35.7 L MCV 88 MCH 29.0 MCHC 33.0 RDW 15.8 H Plt Count 174 Seg Neutrophils % Not Reportable Lymphocytes % Not Reportable Monocytes % Not Reportable Eosinophils % Not Reportable Basophils % Not Reportable Absolute Neutrophils Not Reportable Absolute Lymphocytes Not Reportable Absolute Monocytes Not Reportable Absolute Eosinophils Not Reportable Absolute Basophils Not Reportable VBG pH VBG pCO2 VBG HCO3 VBG Base Excess Sodium 143.3 Potassium 4.2 Chloride 100 Carbon Dioxide 32 H Anion Gap 11 BUN 35 H Creatinine 0.90 Est GFR ( Amer) > 60 Est GFR (Non-Af Amer) > 60 Glucose 246 H Calcium 8.8 Magnesium 2.7 H TSH 0.59 07/13/16 04:13 WBC RBC Hgb Hct MCV MCH MCHC RDW Plt Count Seg Neutrophils % Lymphocytes % Monocytes % Eosinophils % Basophils % Absolute Neutrophils Absolute Lymphocytes Absolute Monocytes Absolute Eosinophils Absolute Basophils VBG pH 7.38 VBG pCO2 56.3 VBG HCO3 32.9 H VBG Base Excess 5.4 Sodium Potassium Chloride Carbon Dioxide Anion Gap BUN Creatinine Est GFR ( Amer) Est GFR (Non-Af Amer) Glucose Calcium Magnesium TSH 07/12/16 09:00 Troponin I 0.043 Impressions: Chest X-Ray 07/11/16 23:04 IMPRESSION: HEART ENLARGED WITHOUT FAILURE. NO OTHER SIGNIFICANT RADIOGRAPHIC FINDING IN THE CHEST. Assessment & Plan - Diagnosis (1) UTI (urinary tract infection) due to urinary indwelling Barton catheter Qualifiers: Indwelling urinary catheter type: indwelling urethral catheter Encounter type: initial encounter Qualified Code(s): T83.511A - Infection and inflammatory reaction due to indwelling urethral catheter, initial encounter; N39.0 - Urinary tract infection, site not specified Is this a current diagnosis for this admission?: YesPlan: Will continue the patient broad-spectrum antibiotic coverage and await culture and sensitivity. 07/12/16 00:34 Ur Leukocyte Esterase LARGE H Urine WBC (Auto) 12 06/10/16 08:20 Urine Culture - Final Catheterized Urine Escherichia Coli Esbl 07/12/16 00:34 Urine Culture - Pending Catheterized Urine (2) Acute exacerbation of chronic obstructive pulmonary disease (COPD) Is this a current diagnosis for this admission?: YesPlan: Will schedule nebulizers and steroids. (3) Obstructive sleep apnea Is this a current diagnosis for this admission?: YesPlan: Will add C Pap at night (4) Adrenal insufficiency Is this a current diagnosis for this admission?: YesPlan: Resume home steroids. (5) Chronic kidney disease Qualifiers: Chronic kidney disease stage: stage 3 (moderate) Qualified Code(s): N18.3 - Chronic kidney disease, stage 3 (moderate) Is this a current diagnosis for this admission?: YesPlan: Patient is around her baseline. 05/18/16 07/11/16 06:40 23:25 Creatinine 1.04 1.20 (6) Diabetes mellitus type II, controlled Qualifiers: Diabetes mellitus complication status: without complication Diabetes mellitus longterm insulin use: without supervisor intermediates use Qualified Code(s): E11.9 - Type 2 diabetes mellitus without complications Is this a current diagnosis for this admission?: YesPlan: Will continue home medications. (7) Diastolic dysfunction Is this a current diagnosis for this admission?: YesPlan: Patient appears optivolemic at this point. (8) Gastroesophageal reflux disease Qualifiers: Esophagitis presence: without esophagitis Qualified Code(s): K21.9 - Gastro-esophageal reflux disease without esophagitis Is this a current diagnosis for this admission?: YesPlan: Will continue home medications. 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 (11) Major depression Qualifiers: Major depression recurrence: recurrent Active/Remission status: remission status unspecified Qualified Code(s): F33.9 - Major depressive disorder, recurrent, unspecified Is this a current diagnosis for this admission?: YesPlan: Will continue home medications. (12) Morbid (severe) obesity with alveolar hypoventilation Is this a current diagnosis for this admission?: Yes (13) Physical debility Is this a current diagnosis for this admission?: Yes (14) A-fib Qualifiers: Atrial fibrillation type: paroxysmal Qualified Code(s): I48.0 - Paroxysmal atrial fibrillation Is this a current diagnosis for this admission?: Yes (15) Anemia, chronic disease Is this a current diagnosis for this admission?: Yes (16) Generalized anxiety disorder Is this a current diagnosis for this admission?: YesPlan: Will continue home medications. (17) Benzodiazepine dependence, continuous Is this a current diagnosis for this admission?: YesPlan: Will continue home medications. (18) Chronic pain syndrome Is this a current diagnosis for this admission?: Yes (19) Opiate dependence, continuous Is this a current diagnosis for this admission?: Yes (20) Polypharmacy Is this a current diagnosis for this admission?: Yes (21) DVT prophylaxis Is this a current diagnosis for this admission?: Yes (22) Do not resuscitate Is this a current diagnosis for this admission?: Yes (23) History of MRSA infection of lungs Is this a current diagnosis for this admission?: Yes (24) History of ESBL E. coli infection Is this a current diagnosis for this admission?: Yes - Time Time Spent with patient: on this visit including assessment, plan, physical examination, and patient education is 35 minutes. Time Spent with patient: 35 or more minutes Medications reviewed and adjusted accordingly: Yes Anticipated discharge: Home Within: within 48 hours Disposition: The patient is a DO NOT RESUSCITATE DO NOT INTUBATE. Pending patient's symptomatology and diagnostic findings will reevaluate as needed.
[2016-07-13] MEDS: VANCOMYCIN HCL 1,000 MG in DEXTROSE 5%-WATER 250 ML IV SCH (09:46)
[2016-07-13] MEDS: TIOTROPIUM BROMIDE DPI 5 CAP/KIT (18 MCG/CAP) IH SCH (09:46)
[2016-07-13] MEDS: FLUTICASONE NASAL SPRAY 50 MCG/SPRY 120 SPRAY/16 GM NASL SCH ×2 (09:47→22:56)
[2016-07-13] MEDS: OLOPATADINE HCL 0.1% OPH SOLN 5 ML OU SCH (09:47)
[2016-07-13] MEDS: LIDOCAINE 5% (700 MG) TRANSDERMAL ADH..PATCH TP SCH (09:47)
[2016-07-13] MEDS: DULOXETINE HCL 30 MG CAPSULE.DR PO SCH (09:48)
[2016-07-13] MEDS: POLYETHYLENE GLYCOL 3350 POWDER 17 GM/1 PACKET PO SCH ×2 (09:48→18:49)
[2016-07-13] MEDS: CLONIDINE HCL 0.2 MG TABLET PO SCH ×2 (09:49→22:52)
[2016-07-13] MEDS: MAGNESIUM OXIDE 400 MG TABLET PO SCH ×2 (09:49→18:48)
[2016-07-13] MEDS: LACTOBACILLUS ACIDOPHILUS 250 MG TAB PO SCH ×2 (09:49→18:48)
[2016-07-13] MEDS: GUAIFENESIN 600 MG TABLET.SA PO SCH ×2 (09:50→22:52)
[2016-07-13] MEDS: PREGABALIN 100 MG CAPSULE PO SCH ×3 (09:50→18:46)
[2016-07-13] MEDS: BUPROPION HCL 75 MG TABLET PO SCH (09:50)
[2016-07-13] MEDS: SENNOSIDES/DOCUSATE 8.6-50 MG 1 EACH TABLET PO SCH ×2 (09:50→18:46)
[2016-07-13] MEDS: POTASSIUM CHLORIDE 10 MEQ TABLET.SA PO SCH ×2 (09:50→22:52)
[2016-07-13] MEDS: FUROSEMIDE 40 MG TABLET PO SCH ×2 (09:50→18:48)
[2016-07-13] MEDS: APIXABAN 2.5 MG TABLET PO SCH ×2 (09:50→18:48)
[2016-07-13] MEDS: METFORMIN HCL 500 MG TABLET PO SCH ×2 (09:51→18:46)
[2016-07-13] MEDS: ASCORBIC ACID 500 MG TABLET PO SCH ×2 (09:51→18:48)
[2016-07-13] MEDS: AMLODIPINE BESYLATE 5 MG TABLET PO SCH (09:51)
[2016-07-13] MEDS: PREDNISONE 10 MG TABLET PO SCH ×2 (09:51→18:45)
[2016-07-13] MEDS: ALPRAZOLAM 0.25 MG TABLET PO SCH ×3 (09:51→18:46)
[2016-07-13] MEDS: IPRATROPIUM BROMIDE 0.06% NASAL SPRAY 15 ML NASL SCH ×2 (09:52→18:49)
[2016-07-13] MEDS: FERROUS SULFATE 325 MG TABLET PO SCH ×2 (09:52→19:00)
[2016-07-13] MEDS: MONTELUKAST SODIUM 10 MG TABLET PO SCH (09:52)
[2016-07-13] MEDS ORDERED: LIDOCAINE 5% (700 MG) TRANSDERMAL ADH..PATCH TP SCH (10:00)
--- NOTE | 2016-07-13 14:56 | EKG REPORT ---
SEVERITY:- ABNORMAL ECG - SINUS RHYTHM MULTIPLE ATRIAL PREMATURE COMPLEXES INCOMPLETE LEFT BUNDLE BRANCH BLOCK LVH WITH SECONDARY REPOLARIZATION ABNORMALITY : Confirmed by: Jung Olvera 13-Jul-2016 14:56:08
[2016-07-13] MEDS: BENZONATATE 100 MG CAPSULE PO SCH (22:51)
[2016-07-13] MEDS: CETIRIZINE 10 MG TABLET PO SCH (22:52)
[2016-07-14] MEDS: OXYCODONE HCL IR 5 MG TABLET PO SCH ×4 (00:07→17:03)
[2016-07-14] MEDS: PIPERACILLIN SODIUM/TAZOBACTAM 4.5 GM in NORMAL SALINE 100 ML IV SCH ×4 (02:48→20:08)
[2016-07-14] MEDS: BACLOFEN 10 MG TABLET PO SCH ×3 (05:41→22:29)
[2016-07-14] MEDS: GABAPENTIN 300 MG CAPSULE PO SCH ×3 (05:41→22:29)
[2016-07-14] MEDS: LANSOPRAZOLE 15 MG TAB.RAP.DR PO SCH (05:41)
[2016-07-14] MEDS: HYDROCORTISONE 0.5% CREAM 28.35 GM TP SCH ×3 (05:42→22:30)
[2016-07-14] MEDS: BUDESONIDE NEB 0.5 MG/2 ML AMPUL NEB SCH ×2 (08:15→20:29)
[2016-07-14] MEDS: LEVALBUTEROL HCL NEB 1.25 MG/3 ML AMPUL NEB SCH ×3 (08:15→20:29)
[2016-07-14] MEDS: PREDNISONE 10 MG TABLET PO SCH ×2 (09:15→17:02)
[2016-07-14] MEDS: GUAIFENESIN 600 MG TABLET.SA PO SCH ×2 (09:15→22:29)
[2016-07-14] MEDS: SENNOSIDES/DOCUSATE 8.6-50 MG 1 EACH TABLET PO SCH ×2 (09:16→17:03)
[2016-07-14] MEDS: BUPROPION HCL 75 MG TABLET PO SCH (09:16)
[2016-07-14] MEDS: MONTELUKAST SODIUM 10 MG TABLET PO SCH (09:16)
[2016-07-14] MEDS: FERROUS SULFATE 325 MG TABLET PO SCH ×2 (09:17→17:02)
[2016-07-14] MEDS: AMLODIPINE BESYLATE 5 MG TABLET PO SCH (09:17)
[2016-07-14] MEDS: POTASSIUM CHLORIDE 10 MEQ TABLET.SA PO SCH ×2 (09:17→22:29)
[2016-07-14] MEDS: SITAGLIPTIN PHOSPHATE 50 MG TABLET PO SCH ×2 (09:17→15:54)
[2016-07-14] MEDS: PREGABALIN 100 MG CAPSULE PO SCH ×3 (09:17→17:04)
[2016-07-14] MEDS: GLIPIZIDE 10 MG TABLET PO SCH ×2 (09:18→17:03)
[2016-07-14] MEDS: ALPRAZOLAM 0.25 MG TABLET PO SCH ×3 (09:18→22:29)
[2016-07-14] MEDS: APIXABAN 2.5 MG TABLET PO SCH ×2 (09:18→17:03)
[2016-07-14] MEDS: FUROSEMIDE 40 MG TABLET PO SCH ×2 (09:18→17:02)
[2016-07-14] MEDS: MAGNESIUM OXIDE 400 MG TABLET PO SCH ×2 (09:18→17:04)
[2016-07-14] MEDS: CLONIDINE HCL 0.2 MG TABLET PO SCH (09:18)
[2016-07-14] MEDS: ASCORBIC ACID 500 MG TABLET PO SCH ×2 (09:19→17:03)
[2016-07-14] MEDS: LACTOBACILLUS ACIDOPHILUS 250 MG TAB PO SCH ×2 (09:19→17:03)
[2016-07-14] MEDS: METFORMIN HCL 500 MG TABLET PO SCH ×2 (09:19→17:03)
[2016-07-14] MEDS: DULOXETINE HCL 30 MG CAPSULE.DR PO SCH (09:19)
[2016-07-14] MEDS: TIOTROPIUM BROMIDE DPI 5 CAP/KIT (18 MCG/CAP) IH SCH (09:20)
[2016-07-14] MEDS: FLUTICASONE NASAL SPRAY 50 MCG/SPRY 120 SPRAY/16 GM NASL SCH ×2 (09:20→22:29)
[2016-07-14] MEDS: OLOPATADINE HCL 0.1% OPH SOLN 5 ML OU SCH (09:21)
[2016-07-14] MEDS: LIDOCAINE 5% (700 MG) TRANSDERMAL ADH..PATCH TP SCH (09:21)
[2016-07-14] MEDS: VANCOMYCIN HCL 1,000 MG in DEXTROSE 5%-WATER 250 ML IV SCH (09:22)
[2016-07-14] MEDS: POLYETHYLENE GLYCOL 3350 POWDER 17 GM/1 PACKET PO SCH (09:22)
[2016-07-14] MEDS: INSULIN GLARGINE,HUM.REC.ANLOG 300 UNIT/3 ML INSULN.PEN SUBCUT SCH (09:25)
[2016-07-14] MEDS: IPRATROPIUM BROMIDE 0.06% NASAL SPRAY 15 ML NASL SCH ×2 (09:31→17:05)
[2016-07-14] MEDS: DILTIAZEM HCL 30 MG TABLET PO SCH ×2 (13:19→17:03)
--- NOTE | 2016-07-14 14:54 | PDOC PROGRESS REPORT ---
Subjective Progress Note for:: 07/14/16 Subjective:: The patient is currently lying in bed. The patient denies any vomiting, diarrhea, , dizziness, chest pain, fevers, or chills. Overnight the patient states that she did have a strong cough which was productive of yellow sputum. The patient does admit to feeling much better. Patient did have some episodes of sinus tachycardia and brief episodes of A. fib with spontaneous conversion. These are mainly associated with her neb treatments. Patient admits to persistent dyspnea. The patient has remained afebrile. Blood pressures have been in a good range. The patient voices no other concerns at this time. Review of systems: The rest of the review of systems is negative. Physical Exam Vital Signs: Temp Pulse Resp BP Pulse Ox 98.3 F 87 18 130/85 H 97 07/14/16 06:50 07/14/16 14:13 07/14/16 14:13 07/14/16 06:50 07/14/16 08:15 Intake & Output 07/12/16 07/13/16 07/14/16 23:59 23:59 23:59 Intake Total 322 1518 1658 Output Total 1800 2950 2200 Balance -3088 -1432 -542 Weight 105.4 kg 248.7 kg 109.1 kg General appearance: PRESENT: no acute distress, cooperative, disheveled, obese, other - Chronically ill-appearing Head exam: PRESENT: atraumatic, normocephalic Eye exam: PRESENT: conjunctiva pale, periorbital swelling, PERRLA. ABSENT: scleral icterus Ear exam: PRESENT: normal external ear exam Mouth exam: PRESENT: moist, neck supple, tongue midline. ABSENT: dry mucosa, laceration Teeth exam: ABSENT: poor dentation Throat exam: ABSENT: post pharyngeal erythema, tonsillar erythema Neck exam: ABSENT: carotid bruit, full ROM, JVD, lymphadenopathy, tenderness, thyromegaly, tracheal deviation, tracheostomy Respiratory exam: PRESENT: no accessory muscle use, decreased breath sounds, symmetrical, wheezes. ABSENT: chest wall tenderness, unlabored Cardiovascular exam: PRESENT: RRR. ABSENT: gallop, irregular rhythm, tachycardia Pulses: PRESENT: +1 pedal pulses bilateral Vascular exam: PRESENT: pallor GI/Abdominal exam: PRESENT: firm, normal bowel sounds. ABSENT: ascites, diminished bowel sounds, distended, guarding, mass, organolmegaly, tenderness Rectal exam: PRESENT: deferred Gentrourinary exam: PRESENT: indwelling catheter - Sediment field Extremities exam: PRESENT: clubbing. ABSENT: pedal edema, tenderness Musculoskeletal exam: ABSENT: ambulatory Neurological exam: PRESENT: alert, awake, oriented to person, oriented to place , oriented to time, oriented to situation. ABSENT: normal gait, aphasic Psychiatric exam: PRESENT: anxious, unusual affect, other - Patient is at her baseline. ABSENT: homicidal ideation, suicidal ideation Skin exam: PRESENT: dry, intact, pallor. ABSENT: cyanosis, erythema, jaundice Results Laboratory Results: 07/12/16 09:00 07/12/16 09:00 07/12/16 10:30 Sputum Gram Stain - Final 07/12/16 09:00 Troponin I 0.043 Impressions: Chest X-Ray 07/11/16 23:04 IMPRESSION: HEART ENLARGED WITHOUT FAILURE. NO OTHER SIGNIFICANT RADIOGRAPHIC FINDING IN THE CHEST. Assessment & Plan - Diagnosis (1) Bronchitis, mucopurulent recurrent Is this a current diagnosis for this admission?: YesPlan: The patient's sputum is also multi-microbial at this point in time. The patient had no evidence of overt pneumonia on chest x-ray or infiltrate. Patient has requested to see her director of radiology. 07/12/16 10:30 Gram Stain - Final Sputum Sputum Culture - Preliminary Gram Positive Cocci Clusters Gram Negative Rods C.albicans/C.dubliniensis Normal Catarina Absent (2) UTI (urinary tract infection) due to urinary indwelling Barton catheter Qualifiers: Indwelling urinary catheter type: indwelling urethral catheter Encounter type: initial encounter Qualified Code(s): T83.511A - Infection and inflammatory reaction due to indwelling urethral catheter, initial encounter; N39.0 - Urinary tract infection, site not specified Is this a current diagnosis for this admission?: YesPlan: Will continue current antibiotic coverage appears the patient has 2 separate organisms showing growth at this point in time. The patient does have a history of multi-microbial infections. 07/12/16 00:34 Urine Culture - Preliminary Catheterized Urine Gram Negative Rods Gram Negative Rods#2 (3) Acute exacerbation of chronic obstructive pulmonary disease (COPD) Is this a current diagnosis for this admission?: YesPlan: Will schedule nebulizers and steroids. (4) Obstructive sleep apnea Is this a current diagnosis for this admission?: YesPlan: Will add C Pap at night (5) Adrenal insufficiency Is this a current diagnosis for this admission?: YesPlan: Resume home steroids. (6) Chronic kidney disease Qualifiers: Chronic kidney disease stage: stage 3 (moderate) Qualified Code(s): N18.3 - Chronic kidney disease, stage 3 (moderate) Is this a current diagnosis for this admission?: YesPlan: Patient is around her baseline. 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 (8) Diastolic dysfunction Is this a current diagnosis for this admission?: YesPlan: Patient appears optivolemic at this point. (9) Gastroesophageal reflux disease Qualifiers: Esophagitis presence: without esophagitis Qualified Code(s): K21.9 - Gastro-esophageal reflux disease without esophagitis Is this a current diagnosis for this admission?: YesPlan: Will continue home medications. (10) Hypersomnia due to drug Is this a current diagnosis for this admission?: Yes (11) Hypertension Qualifiers: Hypertension type: essential hypertension Qualified Code(s): I10 - Essential (primary) hypertension Is this a current diagnosis for this admission?: YesPlan: Will continue home medications. (12) Major depression Qualifiers: Major depression recurrence: recurrent Active/Remission status: remission status unspecified Qualified Code(s): F33.9 - Major depressive disorder, recurrent, unspecified Is this a current diagnosis for this admission?: YesPlan: Will continue home medications. (13) Morbid (severe) obesity with alveolar hypoventilation Is this a current diagnosis for this admission?: Yes (14) Physical debility Is this a current diagnosis for this admission?: Yes (15) A-fib Qualifiers: Atrial fibrillation type: paroxysmal Qualified Code(s): I48.0 - Paroxysmal atrial fibrillation Is this a current diagnosis for this admission?: YesPlan: Wean the patient from clonidine. The patient has a preserved EF will use Cardizem for anti-dysrhythmia. (16) Anemia, chronic disease Is this a current diagnosis for this admission?: Yes (17) Generalized anxiety disorder Is this a current diagnosis for this admission?: YesPlan: Will continue home medications. (18) Benzodiazepine dependence, continuous Is this a current diagnosis for this admission?: YesPlan: Will continue home medications. (19) Chronic pain syndrome Is this a current diagnosis for this admission?: Yes (20) Opiate dependence, continuous Is this a current diagnosis for this admission?: Yes (21) Polypharmacy Is this a current diagnosis for this admission?: Yes (22) DVT prophylaxis Is this a current diagnosis for this admission?: Yes (23) Do not resuscitate Is this a current diagnosis for this admission?: Yes (24) History of MRSA infection of lungs Is this a current diagnosis for this admission?: Yes (25) History of ESBL E. coli infection Is this a current diagnosis for this admission?: Yes - Time Time Spent with patient: on this visit including assessment, plan, physical examination, and patient education is 35 minutes. Time Spent with patient: 35 or more minutes Medications reviewed and adjusted accordingly: Yes Anticipated discharge: SNF Within: within 48 hours Disposition: The patient is a DO NOT RESUSCITATE DO NOT INTUBATE. Pending patient's symptomatology and diagnostic findings will reevaluate as needed.
[2016-07-14] MEDS: LACTULOSE SYRUP 20 GM/30 ML UDCUP PO SCH (17:02)
[2016-07-14] MEDS: BENZONATATE 100 MG CAPSULE PO SCH (22:28)
[2016-07-14] MEDS: CETIRIZINE 10 MG TABLET PO SCH (22:28)
[2016-07-15] MEDS: OXYCODONE HCL IR 5 MG TABLET PO SCH ×4 (00:16→17:58)
[2016-07-15] MEDS: DILTIAZEM HCL 30 MG TABLET PO SCH ×4 (00:17→18:00)
[2016-07-15] MEDS: PIPERACILLIN SODIUM/TAZOBACTAM 4.5 GM in NORMAL SALINE 100 ML IV SCH (02:54)
[2016-07-15 03:59] LABS: HEMATOCRIT 36.4 % (36.0-47.0); HEMOGLOBIN 11.6 g/dL (12.0-15.5); HGB HCT DIFFERENCE -1.6; MEAN CORPUSCULAR HEMOGLOBIN 28.3 pg (27.0-33.4); MEAN CORPUSCULAR HGB CONC 31.9 g/dL (32.0-36.0); MEAN CORPUSCULAR VOLUME 89 fl (80-97); RED CELL DISTRIBUTION WIDTH 15.6 % (11.5-14.0)
[2016-07-15 04:15] LABS: ANION GAP 11 (5-19); BLOOD UREA NITROGEN 35 mg/dL (7-20); CALCIUM 9.1 mg/dL (8.4-10.2); CARBON DIOXIDE 34 mmol/L (22-30); CHLORIDE 98 mmol/L (98-107); CREATININE RESULT 1.05 mg/dL (0.52-1.25); GLUCOSE 195 mg/dL (75-110); MAGNESIUM 2.3 mg/dL (1.6-2.3); POTASSIUM 3.8 mmol/L (3.6-5.0); SODIUM 143.4 mmol/L (137-145)
[2016-07-15] MEDS: ALPRAZOLAM 0.25 MG TABLET PO SCH ×3 (06:17→22:41)
[2016-07-15] MEDS: BACLOFEN 10 MG TABLET PO SCH ×3 (06:17→22:41)
[2016-07-15] MEDS: GABAPENTIN 300 MG CAPSULE PO SCH ×3 (06:17→22:41)
[2016-07-15] MEDS: LANSOPRAZOLE 15 MG TAB.RAP.DR PO SCH (06:18)
[2016-07-15] MEDS: HYDROCORTISONE 0.5% CREAM 28.35 GM TP SCH ×3 (06:24→22:55)
[2016-07-15] MEDS: LEVALBUTEROL HCL NEB 1.25 MG/3 ML AMPUL NEB SCH ×3 (08:19→19:56)
[2016-07-15] MEDS: BUDESONIDE NEB 0.5 MG/2 ML AMPUL NEB SCH ×2 (08:25→19:56)
[2016-07-15] MEDS ORDERED: GENTAMICIN SULFATE 0 MG in DEXTROSE 5%-WATER 100 ML IV NR (09:00)
[2016-07-15 10:41] LABS: CREATININE RESULT 1.12 mg/dL (0.52-1.25)
[2016-07-15] MEDS: LIDOCAINE 5% (700 MG) TRANSDERMAL ADH..PATCH TP SCH (11:02)
[2016-07-15] MEDS: FENTANYL 50 MCG/HR PATCH.TD72 TD SCH (11:04)
[2016-07-15] MEDS: GUAIFENESIN 600 MG TABLET.SA PO SCH ×2 (11:06→22:40)
[2016-07-15] MEDS: SENNOSIDES/DOCUSATE 8.6-50 MG 1 EACH TABLET PO SCH ×2 (11:07→18:00)
[2016-07-15] MEDS: LACTULOSE SYRUP 20 GM/30 ML UDCUP PO SCH ×2 (11:07→18:00)
[2016-07-15] MEDS: GLIPIZIDE 10 MG TABLET PO SCH ×2 (11:07→17:59)
[2016-07-15] MEDS: DULOXETINE HCL 30 MG CAPSULE.DR PO SCH (11:08)
[2016-07-15] MEDS: ASCORBIC ACID 500 MG TABLET PO SCH ×2 (11:09→17:58)
[2016-07-15] MEDS: FUROSEMIDE 40 MG TABLET PO SCH ×2 (11:09→17:58)
[2016-07-15] MEDS: MONTELUKAST SODIUM 10 MG TABLET PO SCH (11:09)
[2016-07-15] MEDS: SITAGLIPTIN PHOSPHATE 50 MG TABLET PO SCH ×2 (11:10→17:59)
[2016-07-15] MEDS: PREDNISONE 10 MG TABLET PO SCH ×2 (11:10→18:00)
[2016-07-15] MEDS: FERROUS SULFATE 325 MG TABLET PO SCH ×2 (11:11→17:59)
[2016-07-15] MEDS: LACTOBACILLUS ACIDOPHILUS 250 MG TAB PO SCH ×2 (11:11→17:59)
[2016-07-15] MEDS: BUPROPION HCL 75 MG TABLET PO SCH (11:11)
[2016-07-15] MEDS: AMLODIPINE BESYLATE 5 MG TABLET PO SCH (11:12)
[2016-07-15] MEDS: APIXABAN 2.5 MG TABLET PO SCH ×2 (11:13→17:58)
[2016-07-15] MEDS: METFORMIN HCL 500 MG TABLET PO SCH ×2 (11:13→17:59)
[2016-07-15] MEDS: POTASSIUM CHLORIDE 10 MEQ TABLET.SA PO SCH ×2 (11:13→22:40)
[2016-07-15] MEDS: PREGABALIN 100 MG CAPSULE PO SCH ×3 (11:13→18:00)
[2016-07-15] MEDS: FLUTICASONE NASAL SPRAY 50 MCG/SPRY 120 SPRAY/16 GM NASL SCH ×2 (11:14→22:41)
[2016-07-15] MEDS: IPRATROPIUM BROMIDE 0.06% NASAL SPRAY 15 ML NASL SCH ×2 (11:14→18:12)
[2016-07-15] MEDS: TIOTROPIUM BROMIDE DPI 5 CAP/KIT (18 MCG/CAP) IH SCH (11:15)
[2016-07-15] MEDS: OLOPATADINE HCL 0.1% OPH SOLN 5 ML OU SCH (11:15)
[2016-07-15] MEDS: INSULIN GLARGINE,HUM.REC.ANLOG 300 UNIT/3 ML INSULN.PEN SUBCUT SCH (11:16)
[2016-07-15] MEDS: MAGNESIUM OXIDE 400 MG TABLET PO SCH ×2 (11:24→17:59)
--- NOTE | 2016-07-15 14:26 | PDOC PROGRESS REPORT ---
Subjective Progress Note for:: 07/15/16 Subjective:: The patient is currently lying in bed. The patient denies any vomiting, diarrhea, , dizziness, chest pain, fevers, or chills. Overnight the patient states that she did have a strong cough which was productive of yellow sputum. The patient does admit to feeling much better. Episodes of tachycardia have improved since starting Cardizem.. These are mainly associated with her neb treatments. Patient admits to persistent dyspnea. The patient has remained afebrile. Blood pressures have been in a good range. The patient voices no other concerns at this time. Review of systems: The rest of the review of systems is negative. Physical Exam Vital Signs: Temp Pulse Resp BP Pulse Ox 98.2 F 84 20 145/68 H 97 07/15/16 11:30 07/15/16 11:30 07/15/16 11:30 07/15/16 11:30 07/15/16 11:30 Intake & Output 07/13/16 07/14/16 07/15/16 23:59 23:59 23:59 Intake Total 1518 4618 980 Output Total 2950 3850 2700 Balance -1432 768 -1720 Weight 248.7 kg 109.1 kg 109.1 kg General appearance: PRESENT: no acute distress, cooperative, disheveled, obese, other - Chronically ill-appearing Head exam: PRESENT: atraumatic, normocephalic Eye exam: PRESENT: conjunctiva pale, periorbital swelling, PERRLA. ABSENT: scleral icterus Ear exam: PRESENT: normal external ear exam Mouth exam: PRESENT: moist, neck supple, tongue midline. ABSENT: dry mucosa, laceration Teeth exam: ABSENT: poor dentation Throat exam: ABSENT: post pharyngeal erythema, tonsillar erythema Neck exam: ABSENT: carotid bruit, full ROM, JVD, lymphadenopathy, tenderness, thyromegaly, tracheal deviation, tracheostomy Respiratory exam: PRESENT: no accessory muscle use, decreased breath sounds, symmetrical, wheezes. ABSENT: chest wall tenderness, unlabored Cardiovascular exam: PRESENT: RRR. ABSENT: gallop, irregular rhythm, tachycardia Pulses: PRESENT: +1 pedal pulses bilateral Vascular exam: PRESENT: pallor GI/Abdominal exam: PRESENT: firm, normal bowel sounds. ABSENT: ascites, diminished bowel sounds, distended, guarding, mass, organolmegaly, tenderness Rectal exam: PRESENT: deferred Gentrourinary exam: PRESENT: indwelling catheter - Sediment field Extremities exam: PRESENT: clubbing. ABSENT: pedal edema, tenderness Musculoskeletal exam: ABSENT: ambulatory Neurological exam: PRESENT: alert, awake, oriented to person, oriented to place , oriented to time, oriented to situation. ABSENT: normal gait, aphasic Psychiatric exam: PRESENT: anxious, unusual affect, other - Patient is at her baseline. ABSENT: homicidal ideation, suicidal ideation Skin exam: PRESENT: dry, intact, pallor. ABSENT: cyanosis, erythema, jaundice Results Laboratory Results: 07/15/16 03:33 07/15/16 09:55 07/15/16 07/15/16 07/15/16 03:33 03:33 09:55 WBC 8.0 RBC 4.10 Hgb 11.6 L Hct 36.4 MCV 89 MCH 28.3 MCHC 31.9 L RDW 15.6 H Plt Count 169 Sodium 143.4 Potassium 3.8 Chloride 98 Carbon Dioxide 34 H Anion Gap 11 BUN 35 H Creatinine 1.05 1.12 Est GFR ( Amer) > 60 58 L Est GFR (Non-Af Amer) 51 L 48 L Glucose 195 H Calcium 9.1 Magnesium 2.3 07/12/16 10:30 Sputum Gram Stain - Final 07/12/16 09:00 Troponin I 0.043 Impressions: Chest X-Ray 07/11/16 23:04 IMPRESSION: HEART ENLARGED WITHOUT FAILURE. NO OTHER SIGNIFICANT RADIOGRAPHIC FINDING IN THE CHEST. Assessment & Plan - Diagnosis (1) Bronchitis, mucopurulent recurrent Is this a current diagnosis for this admission?: YesPlan: Patient's sputum has grown out MRSA and gram-negative sarai is still pending. The patient's the Siemens Dr. Ahuja. Discussed the case will add tobramycin nebs. Will cover with gentamicin given that the patient's UTI was also sensitive to this. (2) Acute on chronic respiratory failure with hypoxia and hypercapnia Is this a current diagnosis for this admission?: Yes (3) UTI (urinary tract infection) due to urinary indwelling Barton catheter Qualifiers: Indwelling urinary catheter type: indwelling urethral catheter Encounter type: initial encounter Qualified Code(s): T83.511A - Infection and inflammatory reaction due to indwelling urethral catheter, initial encounter; N39.0 - Urinary tract infection, site not specified Is this a current diagnosis for this admission?: YesPlan: Both organisms are sensitive to gentamicin will cover 07/12/16 00:34 Urine Culture - Final Catheterized Urine Proteus Mirabilis Escherichia Coli Esbl (4) Acute exacerbation of chronic obstructive pulmonary disease (COPD) Is this a current diagnosis for this admission?: YesPlan: Will schedule nebulizers and steroids. (5) Obstructive sleep apnea Is this a current diagnosis for this admission?: YesPlan: Will add C Pap at night (6) Adrenal insufficiency Is this a current diagnosis for this admission?: YesPlan: Resume home steroids. (7) Chronic kidney disease Qualifiers: Chronic kidney disease stage: stage 3 (moderate) Qualified Code(s): N18.3 - Chronic kidney disease, stage 3 (moderate) Is this a current diagnosis for this admission?: YesPlan: Patient is around her baseline. 05/18/16 07/11/16 06:40 23:25 Creatinine 1.04 1.20 (8) Diabetes mellitus type II, controlled Qualifiers: Diabetes mellitus complication status: without complication Diabetes mellitus terminal superintendent insulin use: without custodial use Qualified Code(s): E11.9 - Type 2 diabetes mellitus without complications Is this a current diagnosis for this admission?: YesPlan: Will continue home medications. (9) Diastolic dysfunction Is this a current diagnosis for this admission?: YesPlan: Patient appears optivolemic at this point. (10) Gastroesophageal reflux disease Qualifiers: Esophagitis presence: without esophagitis Qualified Code(s): K21.9 - Gastro-esophageal reflux disease without esophagitis Is this a current diagnosis for this admission?: YesPlan: Will continue home medications. (11) Hypersomnia due to drug Is this a current diagnosis for this admission?: Yes (12) Hypertension Qualifiers: Hypertension type: essential hypertension Qualified Code(s): I10 - Essential (primary) hypertension Is this a current diagnosis for this admission?: YesPlan: Will continue home medications. (13) Major depression Qualifiers: Major depression recurrence: recurrent Active/Remission status: remission status unspecified Qualified Code(s): F33.9 - Major depressive disorder, recurrent, unspecified Is this a current diagnosis for this admission?: YesPlan: Will continue home medications. (14) Morbid (severe) obesity with alveolar hypoventilation Is this a current diagnosis for this admission?: Yes (15) Physical debility Is this a current diagnosis for this admission?: Yes (16) A-fib Qualifiers: Atrial fibrillation type: paroxysmal Qualified Code(s): I48.0 - Paroxysmal atrial fibrillation Is this a current diagnosis for this admission?: YesPlan: Wean the patient from clonidine. The patient has a preserved EF will use Cardizem for anti-dysrhythmia. (17) Anemia, chronic disease Is this a current diagnosis for this admission?: Yes (18) Generalized anxiety disorder Is this a current diagnosis for this admission?: YesPlan: Will continue home medications. (19) Benzodiazepine dependence, continuous Is this a current diagnosis for this admission?: YesPlan: Will continue home medications. (20) Chronic pain syndrome Is this a current diagnosis for this admission?: Yes (21) Opiate dependence, continuous Is this a current diagnosis for this admission?: Yes (22) Polypharmacy Is this a current diagnosis for this admission?: Yes (23) MRSA infection Is this a current diagnosis for this admission?: Yes (24) ESBL (extended spectrum beta-lactamase) producing bacteria infection Is this a current diagnosis for this admission?: Yes (25) Proteus mirabilis infection Is this a current diagnosis for this admission?: Yes (26) DVT prophylaxis Is this a current diagnosis for this admission?: Yes (27) Do not resuscitate Is this a current diagnosis for this admission?: Yes - Time Time Spent with patient: on this visit including assessment, plan, physical examination, family meeting, and specialty collaboration, and patient education is 35 minutes. Time Spent with patient: 35 or more minutes Medications reviewed and adjusted accordingly: Yes Anticipated discharge: SNF Within: within 24 hours
[2016-07-15] MEDS ORDERED: METHYL SALICYLATE/MENTHOL BALM 29 GM TP PRN (14:28)
[2016-07-15] MEDS: GENTAMICIN SULFATE 150 MG in DEXTROSE 5%-WATER 100 ML IV SCH (14:35)
--- NOTE | 2016-07-15 17:50 | PDOC CONSULTATION ---
Consultation Consult Date: 07/15/16 Attending physician:: PAXTON FOFANA Consult reason:: Acute on chronic respiratory History of Present Illness Admission Date/PCP: 07/12/16 08:21 MUSA HODGSON History of Present Illness: PORSHA WALDRON is a 71 year [facility] Chronic respiratory failure chronic atrial fibrillation;Chronic aspiration due to dysphagia emergency room shortness of breath. She is currently a resident of [facility] multiple antibiotic resistant agents She has been complaining of progressive cough and dyspnea over 48 hours prior to admission;Currently she has slowly been improving and is wearing her BiPAP at nighttime Past Medical History Cardiac Medical History: Reports: Atrial Fibrillation, Congestive Heart Failure - Diastolic dysfunction, Myocardial Infarction, Hypertension - essential, Pulmonary Embolism, Heart Murmur Denies: Coronary Artery Disease, DVT, Hyperlipidema, Peripheral Vascular Disease Pulmonary Medical History: Reports: Asthma, Bronchitis, Chronic Obstructive Pulmonary Disease (COPD), Pneumonia - Recurrent MRSA pneumonia., Sleep Apnea - Uses C Pap Denies: Tuberculosis Neurological Medical History: Denies: Seizures Endocrine Medical History: Reports: Diabetes Mellitus Type 2, Other - Adrenal insufficiency Denies: Diabetes Mellitus Type 1, Hyperthyroidism, Hypothyroidism Renal/ Medical History: Reports: Chronic Kidney Disease - Stage II to 3 GI Medical History: Reports: Gastroesophageal Reflux Disease, Hiatal Hernia Denies: Cirrhosis, Hepatitis Musculoskeltal Medical History: Reports: Arthritis, Fibromyalgia, Gout, Other - Bedbound status Skin Medical History: Denies: Eczema, Psoriasis Psychiatric Medical History: Reports: Depression, General Anxiety Disorder - Benzodiazepine dependency continuous, Other - Opiate dependency continuous Hematology: Reports: Anemia Infectious Medical History: Reports: Methicillin-Resistant Staph Aureus Past Surgical History Past Surgical History: Reports: Appendectomy, Cholecystectomy, Hysterectomy, Orthopedic Surgery - Multiple left hip or seizures, 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 Social History Information Source: Patient, [facility] Records Lives with: Intermediate Smoking Status: Former Smoker Passive smoke exposure as: Both Frequency of Alcohol Use: None Hx Recreational Drug Use: No Drugs: None Hx Prescription Drug Abuse: No Do you have pets?: No Have you had any respiratory illnesses as a child?: No Have you been exposed to any sick contacts recently?: No Have you had any recent respiratory illnesses?: Yes Have you travelled outside of [place] in the past 12 months?: No - Advance Directive Resuscitation Status: Do Not Resuscitate - Portable DO NOT RESUSCITATE DO NOT INTUBATE Family History Family History: Arthritis, CAD, CVA, DM, Hypertension Parental Family History Reviewed: Yes Children Family History Reviewed: Yes Sibling(s) Family History Reviewed.: Yes Medication/Allergy Home Medications: Fluticasone Propionate [Flonase Nasal Welton 50 Mcg/Welton 16 gm] 2 spray IH Q12 04/02/15 Olopatadine HCl [Patanol 0.1% Oph Soln 5 ml] 1 drop BTH_EYE DAILY 04/02/15 Tiotropium Sterling [Spiriva Handihaler 18 mcg/dose (30 Dose)] 1 cap IH DAILY 09/12 Sennosides/Docusate 8.6-50 mg [Senna Plus Tablet] 1 each PO BID #60 tablet 04/06 Apixaban [Eliquis 2.5 mg Tablet] 2.5 mg PO BID 09/09/15 Cetirizine HCl [Zyrtec 10 mg Tablet] 10 mg PO QHS 09/09/15 Montelukast Sodium [Singulair 10 mg Tablet] 10 mg PO DAILY 09/09/15 Amlodipine Besylate [Norvasc 5 mg Tablet] 5 mg PO DAILY 11/07/15 Polyethylene Glycol 3350 [Miralax Powder 17 gm/Packet] 1 packet PO BID 11/07/15 Simethicone [Gas-X] 80 mg PO DAILYP PRN 11/07/15 Melatonin 5 mg PO QHS 11/13/15 Ascorbic Acid [Vitamin C 500 mg Tablet] 500 mg PO BID 01/05/16 Benzonatate [Tessalon Perle 100 mg Capsule] 400 mg PO QHS 01/05/16 Clonidine HCl [Catapres 0.2 mg Tablet] 0.2 mg PO Q12 01/05/16 Duloxetine HCl [Cymbalta] 90 mg PO DAILY 01/05/16 Ferrous Sulfate [Feosol] 325 mg PO BID 01/05/16 Saccharomyces Boulardii [Florastor] 250 mg PO BID 01/05/16 Budesonide [Pulmicort Neb 0.5 mg/2 ml Ampul] 0.5 mg NEB RTQ12 ampul.neb Bupropion HCl [Wellbutrin 75 mg Tablet] 75 mg PO DAILY tablet 01/10/16 Albuterol Sulfate [Ventolin 0.083% Neb 2.5 mg/3 mL Ampul] 2.5 mg NEB RTQ6 PRN Ipratropium Sterling [Atrovent 0.06% Nasal Welton] 1 spray NASL BID 02/12/16 Potassium Chloride [Klor-Con 10 Meq Tablet.sa] 20 meq PO Q12 tablet.sa Hydrocortisone Acetate [Hydrocortisone] 1 applic TOP Q8 04/18/16 Mag Oxide/D3/Turmeric Rt Xt [Magnesium-Vit D3-Turmeric Cap] 400 mg PO BID Menthol [Biofreeze] 1 applic TP Q8HP PRN 04/18/16 Baclofen [Baclofen 10 mg Tablet] 10 mg PO TID #20 tablet 04/23/16 Lidocaine [Lidoderm 5% (700 mg) Transdermal Patch] 3 patch TP DAILY #7 adh..patch 04/23/16 Alprazolam [Xanax 0.25 mg Tablet] 0.25 mg PO TID #15 tablet 05/18/16 Fentanyl [Duragesic 50 Mcg/Hr Transdermal Patch] 1 each TD Q3DAYS #2 patch.td72 05/18/16 Cranberry [Cranberry 400 mg Capsule] 1 tab PO BID 06/10/16 Gabapentin 300 mg PO TID 06/10/16 Omeprazole Magnesium [Prilosec Otc] 20 mg PO QAM 06/10/16 Oxycodone HCl [Oxycodone HCl 10 MG Tablet] 10 mg PO Q6 06/10/16 Ertapenem Sodium [Invanz Inj 1 gm Vial] 1 gm IV DAILY #5 vial 06/15/16 Furosemide [Lasix 40 mg Tablet] 40 mg PO BID tablet 06/15/16 Guaifenesin [Mucinex Sr 600 mg Tablet.sa] 1,200 mg PO Q12 tablet.sa 06/15/16 Pregabalin [Lyrica 100 mg Capsule] 100 mg PO TID #90 capsule 06/15/16 Glipizide [Glucotrol 10 mg Tablet] 10 mg PO BIDBS tablet 06/16/16 Insulin Glargine,Hum.rec.anlog [Lantus] 20 unit SQ QAM #1 vial 06/16/16 Metformin HCl 500 mg PO BID #60 tablet 06/16/16 Prednisone [Deltasone 20 mg Tablet] 30 mg PO BID tablet 06/16/16 Sitagliptin Phosphate [Januvia 50 mg Tablet] 50 mg PO BIDACBS tablet 06/16/16 Acetaminophen [Tylenol 325 mg Tablet] 650 mg PO Q4HP PRN 07/12/16 Allergies/Adverse Reactions: Sulfa (Sulfonamide Antibiotics) Allergy (Intermediate, Verified 10/01/15 18:47) adhesive tape Allergy (Verified 10/01/15 18:47) atorvastatin calcium [From Lipitor] Allergy (Verified 10/01/15 18:47) celecoxib [From Celebrex] Allergy (Verified 10/01/15 18:47) Review of Systems All systems: reviewed and no additional remarkable complaints except as stated Physical Exam Vital Signs: Temp Pulse Resp BP Pulse Ox 98.3 F 83 17 145/71 H 97 07/15/16 07:20 07/15/16 08:25 07/15/16 08:25 07/15/16 07:20 07/15/16 07:20 Intake & Output 07/14/16 07/15/16 07/16/16 06:59 06:59 06:59 Intake Total 2461 3940 Output Total 3800 4350 Balance -1339 -410 Weight 109.1 kg 109.1 kg General appearance: PRESENT: cooperative, disheveled, obese Head exam: PRESENT: atraumatic, normocephalic Eye exam: PRESENT: conjunctiva pale, EOMI Mouth exam: PRESENT: moist, neck supple Neck exam: ABSENT: carotid bruit, JVD, lymphadenopathy, thyromegaly Respiratory exam: PRESENT: decreased breath sounds, prolonged expiratory phas, rhonchi, symmetrical, wheezes Cardiovascular exam: PRESENT: irregular rhythm Pulses: PRESENT: normal radial pulses GI/Abdominal exam: PRESENT: normal bowel sounds, soft. ABSENT: distended, guarding, mass, organolmegaly, rebound, tenderness Rectal exam: PRESENT: deferred Gentrourinary exam: PRESENT: indwelling catheter Extremities exam: PRESENT: pedal edema Neurological exam: PRESENT: alert Psychiatric exam: PRESENT: normal mood Skin exam: PRESENT: dry, warm Results Laboratory Results: 07/15/16 03:33 07/15/16 09:55 07/15/16 07/15/16 07/15/16 03:33 03:33 09:55 WBC 8.0 RBC 4.10 Hgb 11.6 L Hct 36.4 MCV 89 MCH 28.3 MCHC 31.9 L RDW 15.6 H Plt Count 169 Sodium 143.4 Potassium 3.8 Chloride 98 Carbon Dioxide 34 H Anion Gap 11 BUN 35 H Creatinine 1.05 1.12 Est GFR ( Amer) > 60 58 L Est GFR (Non-Af Amer) 51 L 48 L Glucose 195 H Calcium 9.1 Magnesium 2.3 07/12/16 10:30 Sputum Gram Stain - Final 07/12/16 09:00 Troponin I 0.043 Impressions: Chest X-Ray 07/11/16 23:04 IMPRESSION: HEART ENLARGED WITHOUT FAILURE. NO OTHER SIGNIFICANT RADIOGRAPHIC FINDING IN THE CHEST. Assessment & Plan - Diagnosis (1) Obstructive sleep apnea Is this a current diagnosis for this admission?: YesPlan: Continue BiPAP machine from home (2) Acute exacerbation of chronic obstructive pulmonary disease (COPD) Is this a current diagnosis for this admission?: YesPlan: Bronchodilator therapy as well as steroids (3) Acute on chronic respiratory failure with hypoxia and hypercapnia Is this a current diagnosis for this admission?: YesPlan: Chronic respiratory failure and hypoventilation as well as ROSETTA should be addressed with the use of BiPAP
[2016-07-15] MEDS: METHYL SALICYLATE/MENTHOL BALM 29 GM TP PRN (18:01)
[2016-07-15] MEDS: BACITRACIN ZINC OINTMENT 15 GM TP SCH (18:09)
[2016-07-15] MEDS: TOBRAMYCIN SULFATE NEB 40 MG/ML 30 ML NEB SCH (19:56)
[2016-07-15] MEDS ORDERED: TOBRAMYCIN SULFATE INJ 80 MG/2 ML VIAL NEB SCH (20:00)
[2016-07-15] MEDS: CETIRIZINE 10 MG TABLET PO SCH (22:41)
[2016-07-15] MEDS: BENZONATATE 100 MG CAPSULE PO SCH (22:41)
[2016-07-16] MEDS: OXYCODONE HCL IR 5 MG TABLET PO SCH ×5 (00:48→23:53)
[2016-07-16] MEDS: DILTIAZEM HCL 30 MG TABLET PO SCH ×5 (00:49→23:53)
[2016-07-16] MEDS: GABAPENTIN 300 MG CAPSULE PO SCH ×3 (05:31→22:12)
[2016-07-16] MEDS: ALPRAZOLAM 0.25 MG TABLET PO SCH ×3 (05:31→22:11)
[2016-07-16] MEDS: LANSOPRAZOLE 15 MG TAB.RAP.DR PO SCH (05:31)
[2016-07-16] MEDS: BACLOFEN 10 MG TABLET PO SCH ×3 (05:32→22:12)
[2016-07-16] MEDS: HYDROCORTISONE 0.5% CREAM 28.35 GM TP SCH ×3 (05:32→22:23)
[2016-07-16] MEDS: LEVALBUTEROL HCL NEB 1.25 MG/3 ML AMPUL NEB SCH ×3 (07:53→19:48)
[2016-07-16] MEDS: BUDESONIDE NEB 0.5 MG/2 ML AMPUL NEB SCH ×2 (07:54→19:50)
[2016-07-16] MEDS: TOBRAMYCIN SULFATE NEB 40 MG/ML 30 ML NEB SCH ×2 (07:54→19:47)
[2016-07-16] MEDS: INSULIN GLARGINE,HUM.REC.ANLOG 300 UNIT/3 ML INSULN.PEN SUBCUT SCH (08:16)
[2016-07-16] MEDS: SITAGLIPTIN PHOSPHATE 50 MG TABLET PO SCH ×2 (10:27→17:50)
[2016-07-16] MEDS: GLIPIZIDE 10 MG TABLET PO SCH ×2 (10:29→17:56)
[2016-07-16] MEDS: ASCORBIC ACID 500 MG TABLET PO SCH ×2 (10:32→17:56)
[2016-07-16] MEDS: APIXABAN 2.5 MG TABLET PO SCH ×2 (10:33→17:56)
[2016-07-16] MEDS: METFORMIN HCL 500 MG TABLET PO SCH ×2 (10:33→17:56)
[2016-07-16] MEDS: MONTELUKAST SODIUM 10 MG TABLET PO SCH (10:34)
[2016-07-16] MEDS: PREDNISONE 10 MG TABLET PO SCH ×2 (10:34→17:56)
[2016-07-16] MEDS: FUROSEMIDE 40 MG TABLET PO SCH ×2 (10:34→17:50)
[2016-07-16] MEDS: BUPROPION HCL 75 MG TABLET PO SCH (10:35)
[2016-07-16] MEDS: SENNOSIDES/DOCUSATE 8.6-50 MG 1 EACH TABLET PO SCH ×2 (10:35→17:50)
[2016-07-16] MEDS: FERROUS SULFATE 325 MG TABLET PO SCH ×2 (10:35→17:55)
[2016-07-16] MEDS: LACTULOSE SYRUP 20 GM/30 ML UDCUP PO SCH ×2 (10:36→17:56)
[2016-07-16] MEDS: GUAIFENESIN 600 MG TABLET.SA PO SCH ×2 (10:36→22:11)
[2016-07-16] MEDS: POTASSIUM CHLORIDE 10 MEQ TABLET.SA PO SCH ×2 (10:36→22:23)
[2016-07-16] MEDS: MAGNESIUM OXIDE 400 MG TABLET PO SCH ×2 (10:37→17:55)
[2016-07-16] MEDS: DULOXETINE HCL 30 MG CAPSULE.DR PO SCH (10:38)
[2016-07-16] MEDS: PREGABALIN 100 MG CAPSULE PO SCH ×3 (10:38→17:55)
[2016-07-16] MEDS: LACTOBACILLUS ACIDOPHILUS 250 MG TAB PO SCH ×2 (10:39→17:55)
[2016-07-16] MEDS: AMLODIPINE BESYLATE 5 MG TABLET PO SCH (10:39)
[2016-07-16] MEDS: TIOTROPIUM BROMIDE DPI 5 CAP/KIT (18 MCG/CAP) IH SCH (10:44)
[2016-07-16] MEDS: FLUTICASONE NASAL SPRAY 50 MCG/SPRY 120 SPRAY/16 GM NASL SCH ×2 (10:46→22:20)
[2016-07-16] MEDS: LIDOCAINE 5% (700 MG) TRANSDERMAL ADH..PATCH TP SCH (10:47)
[2016-07-16] MEDS: OLOPATADINE HCL 0.1% OPH SOLN 5 ML OU SCH (10:47)
[2016-07-16] MEDS: IPRATROPIUM BROMIDE 0.06% NASAL SPRAY 15 ML NASL SCH ×2 (10:47→18:05)
[2016-07-16] MEDS: BACITRACIN ZINC OINTMENT 15 GM TP SCH ×2 (10:48→18:03)
--- NOTE | 2016-07-16 11:36 | PDOC PROGRESS REPORT ---
Subjective Progress Note for:: 07/16/16 Subjective:: feel better but I am not ready yet Physical Exam Vital Signs: Temp Pulse Resp BP Pulse Ox 98.1 F 76 20 173/79 H 97 07/16/16 07:59 07/16/16 07:59 07/16/16 07:59 07/16/16 07:59 07/16/16 07:59 Intake & Output 07/15/16 07/16/16 07/17/16 06:59 06:59 06:59 Intake Total 3940 2417 Output Total 4350 4400 Balance -410 Weight 109.1 kg 109.1 kg General appearance: PRESENT: no acute distress, cooperative, disheveled, morbidly obese Head exam: PRESENT: atraumatic, normocephalic Eye exam: PRESENT: conjunctiva pale, EOMI Mouth exam: PRESENT: moist, neck supple, tongue midline Neck exam: ABSENT: carotid bruit, JVD, lymphadenopathy, thyromegaly Respiratory exam: PRESENT: decreased breath sounds, prolonged expiratory phas, rhonchi, symmetrical, unlabored Cardiovascular exam: PRESENT: RRR, +S1, +S2 GI/Abdominal exam: PRESENT: normal bowel sounds, soft. ABSENT: distended, guarding, mass, organolmegaly, rebound, tenderness Rectal exam: PRESENT: deferred Gentrourinary exam: PRESENT: indwelling catheter Musculoskeletal exam: PRESENT: normal inspection Neurological exam: PRESENT: alert, awake Psychiatric exam: PRESENT: normal mood Skin exam: PRESENT: warm Results Laboratory Results: 07/15/16 03:33 07/15/16 09:55 07/12/16 10:30 Sputum Gram Stain - Final 07/12/16 09:00 Troponin I 0.043 Impressions: Chest X-Ray 07/11/16 23:04 IMPRESSION: HEART ENLARGED WITHOUT FAILURE. NO OTHER SIGNIFICANT RADIOGRAPHIC FINDING IN THE CHEST. Assessment & Plan - Diagnosis (1) Obstructive sleep apnea Is this a current diagnosis for this admission?: YesPlan: Continue BiPAP machine from home (2) Acute exacerbation of chronic obstructive pulmonary disease (COPD) Is this a current diagnosis for this admission?: YesPlan: Increased air movement over the last 24 hours (3) Acute on chronic respiratory failure with hypoxia and hypercapnia Is this a current diagnosis for this admission?: YesPlan: Improving
[2016-07-16] MEDS: GENTAMICIN SULFATE 150 MG in DEXTROSE 5%-WATER 100 ML IV SCH (12:09)
--- NOTE | 2016-07-16 13:17 | PDOC PROGRESS REPORT ---
Subjective Progress Note for:: 07/16/16 Subjective:: The patient is currently lying in bed. The patient denies any vomiting, diarrhea, dizziness, chest pain, fevers, or chills. The patient does admit to feeling much better. Episodes of tachycardia have improved since starting Cardizem. These are mainly associated with her neb treatments. Patient admits to persistent dyspnea. The patient has remained afebrile. Blood pressures have been in a good range. The patient voices no other concerns at this time. Review of systems: The rest of the review of systems is negative. Brief history: Ms. Clements is 71-year-old female that is well known to our service. The patient presented with shortness of breath. She was found to have a UA consistent with UTI as well as on producing yellow sputum. The patient had no findings of overt pneumonia or infiltrate on chest x-ray but given the patient's history and fever or white count patient was referred to hospitals for [facility] and management. The patient does have multi microbial infections. At this time all organisms are sensitive to gentamicin. The patient does have a gram-negative sarai pending and her sputum which can only be assumed to be Pseudomonas therefore it should be sensitive to gent. The patient has been seen and evaluated by her fnp Dr. Ahuja and tobramycin nebs have been recommended as will treat this as a bronchiectasis given the patient's recurrence. Physical Exam Vital Signs: Temp Pulse Resp BP Pulse Ox 98.1 F 76 20 173/79 H 97 07/16/16 07:59 07/16/16 07:59 07/16/16 07:59 07/16/16 07:59 07/16/16 07:59 Intake & Output 07/14/16 07/15/16 07/16/16 23:59 23:59 23:59 Intake Total 4618 2490 1707 Output Total 4310 9300 4100 Balance 458 -6078 -5993 Weight 109.1 kg 109.1 kg 109.1 kg General appearance: PRESENT: no acute distress, cooperative, disheveled, obese, other - Chronically ill-appearing Head exam: PRESENT: atraumatic, normocephalic Eye exam: PRESENT: conjunctiva pale, periorbital swelling, PERRLA. ABSENT: scleral icterus Ear exam: PRESENT: normal external ear exam Mouth exam: PRESENT: moist, neck supple, tongue midline. ABSENT: dry mucosa, laceration Teeth exam: ABSENT: poor dentation Throat exam: ABSENT: post pharyngeal erythema, tonsillar erythema Neck exam: ABSENT: carotid bruit, full ROM, JVD, lymphadenopathy, tenderness, thyromegaly, tracheal deviation, tracheostomy Respiratory exam: PRESENT: no accessory muscle use, decreased breath sounds, symmetrical, wheezes. ABSENT: chest wall tenderness, unlabored Cardiovascular exam: PRESENT: RRR. ABSENT: gallop, irregular rhythm, tachycardia Pulses: PRESENT: +1 pedal pulses bilateral Vascular exam: PRESENT: pallor GI/Abdominal exam: PRESENT: firm, normal bowel sounds. ABSENT: ascites, diminished bowel sounds, distended, guarding, mass, organolmegaly, tenderness Rectal exam: PRESENT: deferred Gentrourinary exam: PRESENT: indwelling catheter - Sediment field Extremities exam: PRESENT: clubbing. ABSENT: pedal edema, tenderness Musculoskeletal exam: ABSENT: ambulatory Neurological exam: PRESENT: alert, awake, oriented to person, oriented to place , oriented to time, oriented to situation. ABSENT: normal gait, aphasic Psychiatric exam: PRESENT: anxious, unusual affect, other - Patient is at her baseline. ABSENT: homicidal ideation, suicidal ideation Skin exam: PRESENT: dry, intact, pallor. ABSENT: cyanosis, erythema, jaundice Results Laboratory Results: 07/15/16 03:33 07/15/16 09:55 07/12/16 10:30 Sputum Gram Stain - Final 07/12/16 09:00 Troponin I 0.043 Impressions: Chest X-Ray 07/11/16 23:04 IMPRESSION: HEART ENLARGED WITHOUT FAILURE. NO OTHER SIGNIFICANT RADIOGRAPHIC FINDING IN THE CHEST. Assessment & Plan - Diagnosis (1) Bronchitis, mucopurulent recurrent Is this a current diagnosis for this admission?: YesPlan: Patient's sputum has grown out MRSA and gram-negative sarai is still pending. Will cover with gentamicin given that the patient's UTI was also sensitive to this. (2) Bronchiectasis Qualifiers: Bronchiectasis type: with acute exacerbation Qualified Code(s): J47.1 - Bronchiectasis with (acute) exacerbation Is this a current diagnosis for this admission?: YesPlan: The patient has been seen by Dr. Ahuja. Will treat aggressively with tobramycin nebs for a total of 28 days. (3) Acute on chronic respiratory failure with hypoxia and hypercapnia Is this a current diagnosis for this admission?: Yes (4) UTI (urinary tract infection) due to urinary indwelling Barton catheter Qualifiers: Indwelling urinary catheter type: indwelling urethral catheter Encounter type: initial encounter Qualified Code(s): T83.511A - Infection and inflammatory reaction due to indwelling urethral catheter, initial encounter; N39.0 - Urinary tract infection, site not specified Is this a current diagnosis for this admission?: YesPlan: Both organisms are sensitive to gentamicin will cover 07/12/16 00:34 Urine Culture - Final Catheterized Urine Proteus Mirabilis Escherichia Coli Esbl (5) Acute exacerbation of chronic obstructive pulmonary disease (COPD) Is this a current diagnosis for this admission?: No (6) Obstructive sleep apnea Is this a current diagnosis for this admission?: YesPlan: Will continue C Pap at night (7) Adrenal insufficiency Is this a current diagnosis for this admission?: YesPlan: On chronic home steroids. (8) Chronic kidney disease Qualifiers: Chronic kidney disease stage: stage 3 (moderate) Qualified Code(s): N18.3 - Chronic kidney disease, stage 3 (moderate) Is this a current diagnosis for this admission?: YesPlan: At baseline (9) Diabetes mellitus type II, controlled Qualifiers: Diabetes mellitus complication status: without complication Diabetes mellitus intermediate insulin use: without supervisor intermediates use Qualified Code(s): E11.9 - Type 2 diabetes mellitus without complications Is this a current diagnosis for this admission?: YesPlan: Will continue home medications (10) Diastolic dysfunction Is this a current diagnosis for this admission?: YesPlan: The patient is optivolemic at this point (11) Gastroesophageal reflux disease Qualifiers: Esophagitis presence: without esophagitis Qualified Code(s): K21.9 - Gastro-esophageal reflux disease without esophagitis Is this a current diagnosis for this admission?: YesPlan: Will continue home medications. (12) Hypersomnia due to drug Is this a current diagnosis for this admission?: Yes (13) Hypertension Qualifiers: Hypertension type: essential hypertension Qualified Code(s): I10 - Essential (primary) hypertension Is this a current diagnosis for this admission?: YesPlan: Will continue home medications (14) Major depression Qualifiers: Major depression recurrence: recurrent Active/Remission status: remission status unspecified Qualified Code(s): F33.9 - Major depressive disorder, recurrent, unspecified Is this a current diagnosis for this admission?: Yes (15) Morbid (severe) obesity with alveolar hypoventilation Is this a current diagnosis for this admission?: Yes (16) Physical debility Is this a current diagnosis for this admission?: Yes (17) A-fib Qualifiers: Atrial fibrillation type: paroxysmal Qualified Code(s): I48.0 - Paroxysmal atrial fibrillation Is this a current diagnosis for this admission?: YesPlan: The patient has been weaned from clonidine. The patient has a preserved EF will use Cardizem for anti-dysrhythmia. (18) Anemia, chronic disease Is this a current diagnosis for this admission?: Yes (19) Generalized anxiety disorder Is this a current diagnosis for this admission?: YesPlan: Will continue home medications. (20) Benzodiazepine dependence, continuous Is this a current diagnosis for this admission?: YesPlan: Will continue home medications. (21) Chronic pain syndrome Is this a current diagnosis for this admission?: Yes (22) Opiate dependence, continuous Is this a current diagnosis for this admission?: Yes (23) Polypharmacy Is this a current diagnosis for this admission?: Yes (24) MRSA infection Is this a current diagnosis for this admission?: Yes (25) ESBL (extended spectrum beta-lactamase) producing bacteria infection Is this a current diagnosis for this admission?: Yes (26) Proteus mirabilis infection Is this a current diagnosis for this admission?: Yes (27) DVT prophylaxis Is this a current diagnosis for this admission?: Yes (28) Do not resuscitate Is this a current diagnosis for this admission?: Yes - Time Time Spent with patient: on this visit including assessment, plan, physical examination, family meeting, and specialty collaboration, and patient education is 35 minutes. Time Spent with patient: 35 or more minutes Medications reviewed and adjusted accordingly: Yes Anticipated discharge: SNF Within: within 48 hours Disposition: The patient is a DO NOT RESUSCITATE DO NOT INTUBATE. Pending patient's symptomatology and diagnostic findings will reevaluate as needed.
[2016-07-16] MEDS: BENZONATATE 100 MG CAPSULE PO SCH (22:10)
[2016-07-16] MEDS: CETIRIZINE 10 MG TABLET PO SCH (22:11)
[2016-07-17 05:34] LABS: ALANINE AMINOTRANSFERASE 35 U/L (9-52); ALBUMIN 3.3 g/dL (3.5-5.0); ALKALINE PHOSPHATASE 129 U/L (38-126); ANION GAP 10 (5-19); ASPARTATE AMINO TRANSFERASE 21 U/L (14-36); BILIRUBIN,TOTAL 0.3 mg/dL (0.2-1.3); BLOOD UREA NITROGEN 35 mg/dL (7-20); CALCIUM 9.7 mg/dL (8.4-10.2); CARBON DIOXIDE 39 mmol/L (22-30); CHLORIDE 94 mmol/L (98-107); CREATININE RESULT 1.12 mg/dL (0.52-1.25); GLUCOSE 185 mg/dL (75-110); MAGNESIUM 2.5 mg/dL (1.6-2.3); POTASSIUM 4.6 mmol/L (3.6-5.0); SODIUM 143.1 mmol/L (137-145); TOTAL PROTEIN 6.3 g/dL (6.3-8.2)
[2016-07-17 05:47] LABS: HEMATOCRIT 38.7 % (36.0-47.0); HEMOGLOBIN 12.2 g/dL (12.0-15.5); HGB HCT DIFFERENCE -2.1; MEAN CORPUSCULAR HGB CONC 31.5 g/dL (32.0-36.0); MEAN CORPUSCULAR VOLUME 89 fl (80-97); RED BLOOD COUNT 4.36 10^6/uL (3.72-5.28); RED CELL DISTRIBUTION WIDTH 15.7 % (11.5-14.0); WHITE BLOOD COUNT 11.1 10^3/uL (4.0-10.5)
[2016-07-17 06:10] LABS: BASOPHILS % (MANUAL) 0 % (0-2); EOSINOPHILS % (MANUAL) 1 % (0-6); LYMPHOCYTES % (MANUAL) 12 % (13-45); TOTAL CELLS COUNTED 100
[2016-07-17 06:12] LABS: ANISOCYTOSIS SLIGHT; OVALOCYTES SLIGHT; POIKILOCYTOSIS SLIGHT; TOXIC GRANULATION SLIGHT
[2016-07-17] MEDS: DILTIAZEM HCL 30 MG TABLET PO SCH (06:19)
[2016-07-17] MEDS: LANSOPRAZOLE 15 MG TAB.RAP.DR PO SCH (06:19)
[2016-07-17] MEDS: BACLOFEN 10 MG TABLET PO SCH ×3 (06:20→22:28)
[2016-07-17] MEDS: ALPRAZOLAM 0.25 MG TABLET PO SCH ×3 (06:20→22:27)
[2016-07-17] MEDS: OXYCODONE HCL IR 5 MG TABLET PO SCH ×4 (06:20→23:56)
[2016-07-17] MEDS: GABAPENTIN 300 MG CAPSULE PO SCH ×3 (06:20→22:28)
[2016-07-17] MEDS: HYDROCORTISONE 0.5% CREAM 28.35 GM TP SCH ×3 (06:23→22:30)
[2016-07-17] MEDS: BUDESONIDE NEB 0.5 MG/2 ML AMPUL NEB SCH ×2 (08:38→19:31)
[2016-07-17] MEDS: LEVALBUTEROL HCL NEB 1.25 MG/3 ML AMPUL NEB SCH ×3 (08:38→19:31)
[2016-07-17] MEDS: TOBRAMYCIN SULFATE NEB 40 MG/ML 30 ML NEB SCH ×2 (08:39→19:31)
[2016-07-17] MEDS ORDERED: DILTIAZEM HCL 30 MG TABLET PO SCH (08:50)
[2016-07-17] MEDS: GUAIFENESIN 600 MG TABLET.SA PO SCH ×2 (10:01→22:27)
[2016-07-17] MEDS: MONTELUKAST SODIUM 10 MG TABLET PO SCH (10:02)
[2016-07-17] MEDS: FUROSEMIDE 40 MG TABLET PO SCH ×2 (10:02→17:23)
[2016-07-17] MEDS: MAGNESIUM OXIDE 400 MG TABLET PO SCH ×2 (10:02→17:25)
[2016-07-17] MEDS: DULOXETINE HCL 30 MG CAPSULE.DR PO SCH (10:03)
[2016-07-17] MEDS: POTASSIUM CHLORIDE 10 MEQ TABLET.SA PO SCH ×2 (10:03→22:27)
[2016-07-17] MEDS: SENNOSIDES/DOCUSATE 8.6-50 MG 1 EACH TABLET PO SCH ×2 (10:03→17:22)
[2016-07-17] MEDS: METFORMIN HCL 500 MG TABLET PO SCH ×2 (10:03→17:24)
[2016-07-17] MEDS: AMLODIPINE BESYLATE 5 MG TABLET PO SCH (10:04)
[2016-07-17] MEDS: APIXABAN 2.5 MG TABLET PO SCH ×2 (10:04→17:24)
[2016-07-17] MEDS: PREGABALIN 100 MG CAPSULE PO SCH ×3 (10:04→17:22)
[2016-07-17] MEDS: PREDNISONE 10 MG TABLET PO SCH ×2 (10:04→17:23)
[2016-07-17] MEDS: FERROUS SULFATE 325 MG TABLET PO SCH ×2 (10:05→17:24)
[2016-07-17] MEDS: LACTOBACILLUS ACIDOPHILUS 250 MG TAB PO SCH ×2 (10:05→17:24)
[2016-07-17] MEDS: SITAGLIPTIN PHOSPHATE 50 MG TABLET PO SCH ×2 (10:05→17:23)
[2016-07-17] MEDS: GLIPIZIDE 10 MG TABLET PO SCH ×2 (10:05→17:24)
[2016-07-17] MEDS: BUPROPION HCL 75 MG TABLET PO SCH (10:05)
[2016-07-17] MEDS: ASCORBIC ACID 500 MG TABLET PO SCH ×2 (10:05→17:24)
[2016-07-17] MEDS: LIDOCAINE 5% (700 MG) TRANSDERMAL ADH..PATCH TP SCH (10:09)
[2016-07-17] MEDS: TIOTROPIUM BROMIDE DPI 5 CAP/KIT (18 MCG/CAP) IH SCH (10:10)
[2016-07-17] MEDS: OLOPATADINE HCL 0.1% OPH SOLN 5 ML OU SCH (10:11)
[2016-07-17] MEDS: IPRATROPIUM BROMIDE 0.06% NASAL SPRAY 15 ML NASL SCH ×2 (10:11→17:25)
[2016-07-17] MEDS: FLUTICASONE NASAL SPRAY 50 MCG/SPRY 120 SPRAY/16 GM NASL SCH ×2 (10:11→22:29)
[2016-07-17] MEDS: BACITRACIN ZINC OINTMENT 15 GM TP SCH ×2 (10:12→17:25)
[2016-07-17] MEDS: LACTULOSE SYRUP 20 GM/30 ML UDCUP PO SCH ×2 (12:06→17:22)
[2016-07-17] MEDS: GENTAMICIN SULFATE 150 MG in DEXTROSE 5%-WATER 100 ML IV SCH (12:07)
[2016-07-17] MEDS: INSULIN GLARGINE,HUM.REC.ANLOG 300 UNIT/3 ML INSULN.PEN SUBCUT SCH (12:08)
[2016-07-17] MEDS: DILTIAZEM HCL 60 MG TABLET PO SCH ×3 (12:08→23:57)
[2016-07-17 12:20] LABS: CREATININE RESULT 1.14 mg/dL (0.52-1.25)
[2016-07-17 12:27] LABS: GENTAMICIN-TROUGH < 0.6 ug/mL (<2.0); TROUGH DRAW TIME 1152
[2016-07-17 14:09] LABS: GENTAMICIN-PEAK 7.1 ug/mL (5.0-10.0)
[2016-07-17] MEDS: BENZONATATE 100 MG CAPSULE PO SCH (22:27)
[2016-07-17] MEDS: CETIRIZINE 10 MG TABLET PO SCH (22:28)
[2016-07-17] MEDS: METHYL SALICYLATE/MENTHOL BALM 29 GM TP PRN (22:30)
[2016-07-18] MEDS: OXYCODONE HCL IR 5 MG TABLET PO SCH ×3 (06:30→18:59)
[2016-07-18] MEDS: GABAPENTIN 300 MG CAPSULE PO SCH ×3 (06:31→23:31)
[2016-07-18] MEDS: BACLOFEN 10 MG TABLET PO SCH ×3 (06:31→23:31)
[2016-07-18] MEDS: ALPRAZOLAM 0.25 MG TABLET PO SCH ×3 (06:31→23:31)
[2016-07-18] MEDS: DILTIAZEM HCL 60 MG TABLET PO SCH ×3 (06:32→18:18)
[2016-07-18] MEDS: LANSOPRAZOLE 15 MG TAB.RAP.DR PO SCH (06:32)
[2016-07-18] MEDS: HYDROCORTISONE 0.5% CREAM 28.35 GM TP SCH ×3 (06:37→23:39)
[2016-07-18] MEDS: LEVALBUTEROL HCL NEB 1.25 MG/3 ML AMPUL NEB SCH ×3 (08:25→19:32)
[2016-07-18] MEDS: BUDESONIDE NEB 0.5 MG/2 ML AMPUL NEB SCH ×2 (08:25→19:33)
[2016-07-18] MEDS: TOBRAMYCIN SULFATE NEB 40 MG/ML 30 ML NEB SCH ×2 (08:26→19:32)
--- NOTE | 2016-07-18 11:10 | PDOC PROGRESS REPORT ---
Subjective Progress Note for:: 07/17/16 Subjective:: feel better but I am not ready yet Physical Exam Vital Signs: Temp Pulse Resp BP Pulse Ox 98.0 F 83 22 H 174/87 H 100 07/17/16 06:46 07/17/16 08:00 07/17/16 08:00 07/17/16 06:46 07/17/16 08:00 Intake & Output 07/16/16 07/17/16 07/18/16 06:59 06:59 06:59 Intake Total 2417 2213 Output Total 4407 9465 -1982 Weight 109.1 kg 109.3 kg General appearance: PRESENT: no acute distress, cooperative, disheveled Head exam: PRESENT: atraumatic, normocephalic Eye exam: PRESENT: conjunctiva pale, EOMI Mouth exam: PRESENT: neck supple, tongue midline Neck exam: ABSENT: carotid bruit, JVD, lymphadenopathy, thyromegaly Respiratory exam: PRESENT: decreased breath sounds, prolonged expiratory phas, rhonchi, symmetrical, unlabored, wheezes Cardiovascular exam: PRESENT: RRR, +S1, +S2 Pulses: PRESENT: normal radial pulses GI/Abdominal exam: PRESENT: normal bowel sounds, soft. ABSENT: distended, guarding, mass, organolmegaly, rebound, tenderness Rectal exam: PRESENT: deferred Gentrourinary exam: PRESENT: indwelling catheter Musculoskeletal exam: PRESENT: normal inspection Neurological exam: PRESENT: alert, awake Psychiatric exam: PRESENT: normal mood Skin exam: PRESENT: dry, warm Results Laboratory Results: 07/17/16 03:59 07/17/16 03:59 07/17/16 07/17/16 03:59 03:59 WBC 11.1 H RBC 4.36 Hgb 12.2 Hct 38.7 MCV 89 MCH 28.0 MCHC 31.5 L RDW 15.7 H Plt Count 186 Seg Neutrophils % Not Reportable Lymphocytes % Not Reportable Monocytes % Not Reportable Eosinophils % Not Reportable Basophils % Not Reportable Absolute Neutrophils Not Reportable Absolute Lymphocytes Not Reportable Absolute Monocytes Not Reportable Absolute Eosinophils Not Reportable Absolute Basophils Not Reportable Sodium 143.1 Potassium 4.6 Chloride 94 L Carbon Dioxide 39 H Anion Gap 10 BUN 35 H Creatinine 1.12 Est GFR ( Amer) 58 L Est GFR (Non-Af Amer) 48 L Glucose 185 H Calcium 9.7 Magnesium 2.5 H Total Bilirubin 0.3 AST 21 ALT 35 Alkaline Phosphatase 129 H Total Protein 6.3 Albumin 3.3 L 07/12/16 10:30 Sputum Gram Stain - Final 07/12/16 10:30 Sputum Sputum Culture - Final Mrsa (Meth Resis Staph Aureus) Klebsiella Pneumoniae C.albicans/C.dubliniensis Normal Catarina Absent 07/12/16 09:00 Troponin I 0.043 Impressions: Chest X-Ray 07/11/16 23:04 IMPRESSION: HEART ENLARGED WITHOUT FAILURE. NO OTHER SIGNIFICANT RADIOGRAPHIC FINDING IN THE CHEST. Assessment & Plan - Diagnosis (1) Obstructive sleep apnea Is this a current diagnosis for this admission?: YesPlan: Continue BiPAP machine from home (2) Acute exacerbation of chronic obstructive pulmonary disease (COPD) Is this a current diagnosis for this admission?: NoPlan: Increased air movement over the last 24 hours (3) Acute on chronic respiratory failure with hypoxia and hypercapnia Is this a current diagnosis for this admission?: YesPlan: Improving multiple drug-resistant organisms in sputum and urine
--- NOTE | 2016-07-18 11:12 | PDOC PROGRESS REPORT ---
Subjective Progress Note for:: 07/17/16 Subjective:: Patient seen on morning rounds. She is presently resting in bed. She states she is feeling much better. She is breathing easier. She denies any chest pain, dyspnea or dizziness. She denies any nausea, vomiting, or diarrhea. She complains of neck pain, and back pain which is chronic. She denies any other complaints at the present time. Patient's rest of review of systems are negative. Physical Exam Vital Signs: Temp Pulse Resp BP Pulse Ox 98.0 F 89 18 129/72 H 97 07/18/16 07:56 07/18/16 08:00 07/18/16 08:00 07/18/16 07:56 07/18/16 08:00 Intake & Output 07/17/16 07/18/16 07/19/16 06:59 06:59 06:59 Intake Total 2213 2448 Output Total 3675 3650 Balance -1462 -1202 Weight 109.3 kg 109.5 kg General appearance: PRESENT: no acute distress, well-developed, well-nourished Head exam: PRESENT: atraumatic, normocephalic Eye exam: PRESENT: conjunctiva pink, EOMI, PERRLA. ABSENT: scleral icterus Ear exam: PRESENT: normal external ear exam Mouth exam: PRESENT: moist, tongue midline Neck exam: ABSENT: carotid bruit, JVD, lymphadenopathy, thyromegaly Respiratory exam: PRESENT: clear to auscultation elia. ABSENT: rales, rhonchi, wheezes Cardiovascular exam: PRESENT: RRR. ABSENT: diastolic murmur, rubs, systolic murmur Pulses: PRESENT: normal dorsalis pedis pul Vascular exam: PRESENT: normal capillary refill GI/Abdominal exam: PRESENT: normal bowel sounds, soft. ABSENT: distended, guarding, mass, organolmegaly, rebound, tenderness Rectal exam: PRESENT: deferred Extremities exam: PRESENT: full ROM. ABSENT: calf tenderness, clubbing, pedal edema Neurological exam: PRESENT: alert, awake, oriented to person, oriented to place , oriented to time, oriented to situation, CN II-XII grossly intact. ABSENT: motor sensory deficit Psychiatric exam: PRESENT: appropriate affect, normal mood. ABSENT: homicidal ideation, suicidal ideation Skin exam: PRESENT: dry, intact, warm. ABSENT: cyanosis, rash Results Laboratory Results: 07/17/16 03:59 07/17/16 11:52 07/17/16 11:52 Creatinine 1.14 Est GFR ( Amer) 57 L Est GFR (Non-Af Amer) 47 L 07/12/16 09:00 Troponin I 0.043 Impressions: Chest X-Ray 07/11/16 23:04 IMPRESSION: HEART ENLARGED WITHOUT FAILURE. NO OTHER SIGNIFICANT RADIOGRAPHIC FINDING IN THE CHEST. Assessment & Plan - Diagnosis (1) Acute on chronic respiratory failure with hypoxia and hypercapnia Is this a current diagnosis for this admission?: YesPlan: Much improved patient now on a nasal cannula at 2l/min via which is her baseline. 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 She is on appropriate coverage for both. She is no longer coughing productively. (2) Bronchiectasis Qualifiers: Bronchiectasis type: with acute exacerbation Qualified Code(s): J47.1 - Bronchiectasis with (acute) exacerbation Is this a current diagnosis for this admission?: YesPlan: Continue nebulizers treatments and antibiotics. (3) MRSA infection Is this a current diagnosis for this admission?: YesPlan: Continue present antibiotics (4) Diabetes mellitus type II, controlled Qualifiers: Diabetes mellitus complication status: without complication Diabetes mellitus mcfp insulin use: without mcfp use Qualified Code(s): E11.9 - Type 2 diabetes mellitus without complications Is this a current diagnosis for this admission?: YesPlan: Continue current medications and sliding scale coverage. (5) Gastroesophageal reflux disease Qualifiers: Esophagitis presence: without esophagitis Qualified Code(s): K21.9 - Gastro-esophageal reflux disease without esophagitis Is this a current diagnosis for this admission?: YesPlan: Continue PPI therapy (6) Generalized anxiety disorder Is this a current diagnosis for this admission?: YesPlan: Continue current antianxiety medications (7) Major depression Qualifiers: Major depression recurrence: recurrent Active/Remission status: remission status unspecified Qualified Code(s): F33.9 - Major depressive disorder, recurrent, unspecified Is this a current diagnosis for this admission?: YesPlan: Continue current medications (8) UTI (urinary tract infection) due to urinary indwelling Barton catheter Qualifiers: Indwelling urinary catheter type: indwelling urethral catheter Encounter type: initial encounter Qualified Code(s): T83.511A - Infection and inflammatory reaction due to indwelling urethral catheter, initial encounter; N39.0 - Urinary tract infection, site not specified Is this a current diagnosis for this admission?: YesPlan: Continue current medications as directed (9) A-fib Qualifiers: Atrial fibrillation type: paroxysmal Qualified Code(s): I48.0 - Paroxysmal atrial fibrillation Is this a current diagnosis for this admission?: YesPlan: Cardiazem dose increased now rate controlled (10) Anemia, chronic disease Is this a current diagnosis for this admission?: Yes (11) Do not resuscitate Is this a current diagnosis for this admission?: YesPlan: Patient's request. Her MPOA agrees (12) Opiate dependence, continuous Is this a current diagnosis for this admission?: YesPlan: Continue prn opioid pain medications - Time Time Spent with patient: 25-34 minutes Critical Time spent with patient: 25-34 minutes Medications reviewed and adjusted accordingly: Yes Anticipated discharge: SNF
[2016-07-18] MEDS: GUAIFENESIN 600 MG TABLET.SA PO SCH ×2 (11:17→23:32)
[2016-07-18] MEDS: LACTOBACILLUS ACIDOPHILUS 250 MG TAB PO SCH ×2 (11:17→18:19)
[2016-07-18] MEDS: BUPROPION HCL 75 MG TABLET PO SCH (11:17)
[2016-07-18] MEDS: POTASSIUM CHLORIDE 10 MEQ TABLET.SA PO SCH ×2 (11:18→23:32)
[2016-07-18] MEDS: MAGNESIUM OXIDE 400 MG TABLET PO SCH ×2 (11:18→18:19)
[2016-07-18] MEDS: PREDNISONE 10 MG TABLET PO SCH ×2 (11:18→18:21)
[2016-07-18] MEDS: SITAGLIPTIN PHOSPHATE 50 MG TABLET PO SCH ×2 (11:19→15:54)
[2016-07-18] MEDS: SENNOSIDES/DOCUSATE 8.6-50 MG 1 EACH TABLET PO SCH ×2 (11:19→18:20)
[2016-07-18] MEDS: AMLODIPINE BESYLATE 5 MG TABLET PO SCH (11:19)
[2016-07-18] MEDS: METFORMIN HCL 500 MG TABLET PO SCH ×2 (11:19→18:20)
[2016-07-18] MEDS: GLIPIZIDE 10 MG TABLET PO SCH ×2 (11:20→18:20)
[2016-07-18] MEDS: PREGABALIN 100 MG CAPSULE PO SCH ×3 (11:20→23:32)
[2016-07-18] MEDS: MONTELUKAST SODIUM 10 MG TABLET PO SCH (11:20)
[2016-07-18] MEDS: APIXABAN 2.5 MG TABLET PO SCH ×2 (11:21→18:19)
[2016-07-18] MEDS: ASCORBIC ACID 500 MG TABLET PO SCH ×2 (11:21→18:21)
[2016-07-18] MEDS: FUROSEMIDE 40 MG TABLET PO SCH ×2 (11:21→18:18)
[2016-07-18] MEDS: FERROUS SULFATE 325 MG TABLET PO SCH ×2 (11:21→18:19)
[2016-07-18] MEDS: DULOXETINE HCL 30 MG CAPSULE.DR PO SCH (11:22)
[2016-07-18] MEDS: LACTULOSE SYRUP 20 GM/30 ML UDCUP PO SCH ×2 (11:22→18:21)
[2016-07-18] MEDS: GENTAMICIN SULFATE 150 MG in DEXTROSE 5%-WATER 100 ML IV SCH (11:22)
[2016-07-18] MEDS: FENTANYL 50 MCG/HR PATCH.TD72 TD SCH (11:23)
[2016-07-18] MEDS: FLUTICASONE NASAL SPRAY 50 MCG/SPRY 120 SPRAY/16 GM NASL SCH ×2 (11:25→23:38)
[2016-07-18] MEDS: IPRATROPIUM BROMIDE 0.06% NASAL SPRAY 15 ML NASL SCH ×2 (11:25→18:22)
[2016-07-18] MEDS: OLOPATADINE HCL 0.1% OPH SOLN 5 ML OU SCH (11:25)
[2016-07-18] MEDS: TIOTROPIUM BROMIDE DPI 5 CAP/KIT (18 MCG/CAP) IH SCH (11:26)
[2016-07-18] MEDS: INSULIN GLARGINE,HUM.REC.ANLOG 300 UNIT/3 ML INSULN.PEN SUBCUT SCH (11:27)
[2016-07-18] MEDS: LIDOCAINE 5% (700 MG) TRANSDERMAL ADH..PATCH TP SCH (11:30)
[2016-07-18] MEDS: BACITRACIN ZINC OINTMENT 15 GM TP SCH ×2 (11:31→18:22)
[2016-07-18] MEDS: BENZONATATE 100 MG CAPSULE PO SCH (23:30)
[2016-07-18] MEDS: CETIRIZINE 10 MG TABLET PO SCH (23:33)
[2016-07-19] MEDS: DILTIAZEM HCL 60 MG TABLET PO SCH ×4 (00:01→18:39)
[2016-07-19] MEDS: OXYCODONE HCL IR 5 MG TABLET PO SCH ×3 (05:19→12:02)
[2016-07-19] MEDS: BACLOFEN 10 MG TABLET PO SCH ×3 (05:20→22:20)
[2016-07-19] MEDS: ALPRAZOLAM 0.25 MG TABLET PO SCH ×2 (05:20→22:19)
[2016-07-19] MEDS: LANSOPRAZOLE 15 MG TAB.RAP.DR PO SCH (05:20)
[2016-07-19] MEDS: GABAPENTIN 300 MG CAPSULE PO SCH ×3 (05:20→22:20)
[2016-07-19] MEDS: PREGABALIN 100 MG CAPSULE PO SCH ×3 (05:21→22:21)
[2016-07-19] MEDS: HYDROCORTISONE 0.5% CREAM 28.35 GM TP SCH ×3 (05:24→22:22)
[2016-07-19] MEDS: TOBRAMYCIN SULFATE NEB 40 MG/ML 30 ML NEB SCH ×2 (08:47→19:48)
[2016-07-19] MEDS: BUDESONIDE NEB 0.5 MG/2 ML AMPUL NEB SCH ×2 (08:47→19:49)
[2016-07-19] MEDS: LEVALBUTEROL HCL NEB 1.25 MG/3 ML AMPUL NEB SCH ×3 (08:48→19:49)
[2016-07-19] MEDS ORDERED: NA PHOS,M-B/NA PHOS,DI-BA (ADULT) 133 ML ENEMA PR PRN (09:32)
[2016-07-19] MEDS ORDERED: BISACODYL 10 MG SUPP.RECT PR PRN (09:32)
[2016-07-19] MEDS ORDERED: DOCUSATE SODIUM 100 MG CAPSULE PO ONE (11:00)
[2016-07-19] MEDS: INSULIN GLARGINE,HUM.REC.ANLOG 300 UNIT/3 ML INSULN.PEN SUBCUT SCH (11:00)
[2016-07-19] MEDS: SENNOSIDES/DOCUSATE 8.6-50 MG 1 EACH TABLET PO SCH ×2 (11:58→18:38)
[2016-07-19] MEDS: MONTELUKAST SODIUM 10 MG TABLET PO SCH (11:58)
[2016-07-19] MEDS: APIXABAN 2.5 MG TABLET PO SCH ×2 (11:58→18:38)
[2016-07-19] MEDS: ASCORBIC ACID 500 MG TABLET PO SCH ×2 (11:59→18:38)
[2016-07-19] MEDS: AMLODIPINE BESYLATE 5 MG TABLET PO SCH (11:59)
[2016-07-19] MEDS: PREDNISONE 10 MG TABLET PO SCH ×2 (12:00→18:37)
[2016-07-19] MEDS: METFORMIN HCL 500 MG TABLET PO SCH ×2 (12:00→18:39)
[2016-07-19] MEDS: MAGNESIUM OXIDE 400 MG TABLET PO SCH ×2 (12:00→18:37)
[2016-07-19] MEDS: GUAIFENESIN 600 MG TABLET.SA PO SCH ×2 (12:00→22:19)
[2016-07-19] MEDS: FUROSEMIDE 40 MG TABLET PO SCH ×2 (12:01→18:37)
[2016-07-19] MEDS: BUPROPION HCL 75 MG TABLET PO SCH (12:01)
[2016-07-19] MEDS: SITAGLIPTIN PHOSPHATE 50 MG TABLET PO SCH ×2 (12:01→15:46)
[2016-07-19] MEDS: GLIPIZIDE 10 MG TABLET PO SCH ×2 (12:01→18:38)
[2016-07-19] MEDS: FERROUS SULFATE 325 MG TABLET PO SCH ×2 (12:01→18:37)
[2016-07-19] MEDS: LACTOBACILLUS ACIDOPHILUS 250 MG TAB PO SCH ×2 (12:02→18:38)
[2016-07-19] MEDS: POTASSIUM CHLORIDE 10 MEQ TABLET.SA PO SCH ×2 (12:02→22:19)
[2016-07-19] MEDS: DULOXETINE HCL 30 MG CAPSULE.DR PO SCH (12:02)
[2016-07-19] MEDS: LACTULOSE SYRUP 20 GM/30 ML UDCUP PO SCH ×2 (12:03→18:40)
[2016-07-19] MEDS: GENTAMICIN SULFATE 150 MG in DEXTROSE 5%-WATER 100 ML IV SCH (12:04)
[2016-07-19] MEDS: LIDOCAINE 5% (700 MG) TRANSDERMAL ADH..PATCH TP SCH (12:05)
[2016-07-19] MEDS: FLUTICASONE NASAL SPRAY 50 MCG/SPRY 120 SPRAY/16 GM NASL SCH ×2 (12:06→22:22)
[2016-07-19] MEDS: OLOPATADINE HCL 0.1% OPH SOLN 5 ML OU SCH (12:06)
[2016-07-19] MEDS: IPRATROPIUM BROMIDE 0.06% NASAL SPRAY 15 ML NASL SCH ×2 (12:07→18:40)
[2016-07-19] MEDS: TIOTROPIUM BROMIDE DPI 5 CAP/KIT (18 MCG/CAP) IH SCH (12:07)
[2016-07-19] MEDS: BACITRACIN ZINC OINTMENT 15 GM TP SCH ×2 (12:08→18:40)
[2016-07-19] MEDS ORDERED: ALPRAZOLAM 0.25 MG TABLET PO ONE (17:15)
[2016-07-19] MEDS: DOCUSATE SODIUM 100 MG CAPSULE PO SCH (18:37)
[2016-07-19] MEDS: BENZONATATE 100 MG CAPSULE PO SCH (22:20)
[2016-07-19] MEDS: CETIRIZINE 10 MG TABLET PO SCH (22:20)
[2016-07-20] MEDS: OXYCODONE HCL IR 5 MG TABLET PO SCH ×5 (00:25→23:21)
[2016-07-20] MEDS: DILTIAZEM HCL 60 MG TABLET PO SCH ×5 (00:26→23:24)
[2016-07-20 06:26] LABS: ABSOLUTE LYMPHOCYTES (AUTO) 0.8 10^3/uL (0.5-4.7); ABSOLUTE MONOCYTES (AUTO) 0.6 10^3/uL (0.1-1.4); ABSOLUTE NEUT (AUTO) 13.7 10^3/uL (1.7-8.2); BASOPHILS % (AUTO) 0.2 % (0-2); EOSINOPHILS % (AUTO) 0.1 % (0-6); HEMATOCRIT 39.5 % (36.0-47.0); HEMOGLOBIN 12.4 g/dL (12.0-15.5); HGB HCT DIFFERENCE -2.3; LYMPHOCYTES % (AUTO) 5.4 % (13-45); MEAN CORPUSCULAR HEMOGLOBIN 28.1 pg (27.0-33.4); MEAN CORPUSCULAR HGB CONC 31.5 g/dL (32.0-36.0); MEAN CORPUSCULAR VOLUME 89 fl (80-97); MONOCYTES % (AUTO) 3.7 % (3-13); RED BLOOD COUNT 4.42 10^6/uL (3.72-5.28); RED CELL DISTRIBUTION WIDTH 15.3 % (11.5-14.0); SEGMENTED NEUTROPHILS % (AUTO) 90.6 % (42-78); WHITE BLOOD COUNT 15.1 10^3/uL (4.0-10.5)
[2016-07-20] MEDS: LANSOPRAZOLE 15 MG TAB.RAP.DR PO SCH (06:28)
[2016-07-20] MEDS: ALPRAZOLAM 0.25 MG TABLET PO SCH ×3 (06:28→23:19)
[2016-07-20] MEDS: PREGABALIN 100 MG CAPSULE PO SCH ×3 (06:28→23:20)
[2016-07-20] MEDS: BACLOFEN 10 MG TABLET PO SCH ×3 (06:28→23:21)
[2016-07-20] MEDS: GABAPENTIN 300 MG CAPSULE PO SCH ×3 (06:29→23:18)
[2016-07-20 06:30] LABS: ANION GAP 11 (5-19); BLOOD UREA NITROGEN 45 mg/dL (7-20); CALCIUM 10.1 mg/dL (8.4-10.2); CARBON DIOXIDE 39 mmol/L (22-30); CHLORIDE 93 mmol/L (98-107); CREATININE RESULT 1.01 mg/dL (0.52-1.25); GLUCOSE 157 mg/dL (75-110); POTASSIUM 4.7 mmol/L (3.6-5.0); SODIUM 142.9 mmol/L (137-145)
[2016-07-20] MEDS: HYDROCORTISONE 0.5% CREAM 28.35 GM TP SCH ×3 (06:30→23:23)
[2016-07-20] MEDS: BUDESONIDE NEB 0.5 MG/2 ML AMPUL NEB SCH ×2 (07:45→19:56)
[2016-07-20] MEDS: LEVALBUTEROL HCL NEB 1.25 MG/3 ML AMPUL NEB SCH ×3 (07:45→19:56)
[2016-07-20] MEDS: TOBRAMYCIN SULFATE NEB 40 MG/ML 30 ML NEB SCH ×2 (07:46→19:57)
[2016-07-20] MEDS: TIOTROPIUM BROMIDE DPI 5 CAP/KIT (18 MCG/CAP) IH SCH (09:19)
[2016-07-20] MEDS: IPRATROPIUM BROMIDE 0.06% NASAL SPRAY 15 ML NASL SCH ×2 (09:20→18:44)
[2016-07-20] MEDS: BACITRACIN ZINC OINTMENT 15 GM TP SCH ×2 (09:20→18:44)
[2016-07-20] MEDS: FLUTICASONE NASAL SPRAY 50 MCG/SPRY 120 SPRAY/16 GM NASL SCH ×2 (09:20→23:23)
[2016-07-20] MEDS: OLOPATADINE HCL 0.1% OPH SOLN 5 ML OU SCH (09:21)
[2016-07-20] MEDS: LACTULOSE SYRUP 20 GM/30 ML UDCUP PO SCH ×2 (09:22→17:59)
[2016-07-20] MEDS: LACTOBACILLUS ACIDOPHILUS 250 MG TAB PO SCH ×2 (09:23→18:02)
[2016-07-20] MEDS: POTASSIUM CHLORIDE 10 MEQ TABLET.SA PO SCH ×2 (09:23→23:20)
[2016-07-20] MEDS: AMLODIPINE BESYLATE 5 MG TABLET PO SCH (09:23)
[2016-07-20] MEDS: BUPROPION HCL 75 MG TABLET PO SCH (09:23)
[2016-07-20] MEDS: GUAIFENESIN 600 MG TABLET.SA PO SCH ×2 (09:23→23:17)
[2016-07-20] MEDS: APIXABAN 2.5 MG TABLET PO SCH ×2 (09:23→18:01)
[2016-07-20] MEDS: ASCORBIC ACID 500 MG TABLET PO SCH ×2 (09:23→18:00)
[2016-07-20] MEDS: FERROUS SULFATE 325 MG TABLET PO SCH ×2 (09:23→18:00)
[2016-07-20] MEDS: PREDNISONE 20 MG TABLET PO SCH (09:24)
[2016-07-20] MEDS: MAGNESIUM OXIDE 400 MG TABLET PO SCH ×2 (09:24→18:01)
[2016-07-20] MEDS: DOCUSATE SODIUM 100 MG CAPSULE PO SCH ×2 (09:24→18:02)
[2016-07-20] MEDS: FUROSEMIDE 40 MG TABLET PO SCH ×2 (09:24→18:02)
[2016-07-20] MEDS: METFORMIN HCL 500 MG TABLET PO SCH ×2 (09:24→17:59)
[2016-07-20] MEDS: GLIPIZIDE 10 MG TABLET PO SCH ×2 (09:24→18:01)
[2016-07-20] MEDS: DULOXETINE HCL 30 MG CAPSULE.DR PO SCH (09:25)
[2016-07-20] MEDS: SITAGLIPTIN PHOSPHATE 50 MG TABLET PO SCH ×2 (09:25→18:01)
[2016-07-20] MEDS: SENNOSIDES/DOCUSATE 8.6-50 MG 1 EACH TABLET PO SCH ×2 (09:25→18:01)
[2016-07-20] MEDS: MONTELUKAST SODIUM 10 MG TABLET PO SCH (09:25)
[2016-07-20] MEDS: INSULIN GLARGINE,HUM.REC.ANLOG 300 UNIT/3 ML INSULN.PEN SUBCUT SCH (09:26)
[2016-07-20] MEDS: LIDOCAINE 5% (700 MG) TRANSDERMAL ADH..PATCH TP SCH (09:26)
[2016-07-20 12:50] LABS: CREATININE RESULT 1.03 mg/dL (0.52-1.25)
[2016-07-20 12:53] LABS: GENTAMICIN-TROUGH 0.8 ug/mL (<2.0)
[2016-07-20] MEDS: GENTAMICIN SULFATE 150 MG in DEXTROSE 5%-WATER 100 ML IV SCH (13:42)
--- NOTE | 2016-07-20 16:19 | PDOC PROGRESS REPORT ---
Subjective Progress Note for:: 07/20/16 Subjective:: Patient seen on morning rounds. She is presently resting in bed. She states she is feeling much better. She is breathing easier. She denies any chest pain, dyspnea or dizziness. She denies any nausea, vomiting, or diarrhea. She complains of neck pain, and back pain which is chronic. She denies any other complaints at the present time. Patient's rest of review of systems are negative. Physical Exam Vital Signs: Temp Pulse Resp BP Pulse Ox 97.8 F 88 18 137/69 H 98 07/20/16 12:31 07/20/16 13:37 07/20/16 13:37 07/20/16 12:31 07/20/16 13:37 Intake & Output 07/19/16 07/20/16 07/21/16 06:59 06:59 06:59 Intake Total 1858 1628 222 Output Total 3500 2600 900 Balance -1642 -972 -678 Weight 111.4 kg 112 kg General appearance: PRESENT: no acute distress, morbidly obese, well-developed, well-nourished Head exam: PRESENT: atraumatic, normocephalic Eye exam: PRESENT: conjunctiva pink, EOMI, PERRLA. ABSENT: scleral icterus Ear exam: PRESENT: normal external ear exam Mouth exam: PRESENT: moist, tongue midline Neck exam: ABSENT: carotid bruit, JVD, lymphadenopathy, thyromegaly Respiratory exam: PRESENT: crackles - bilteral bases. ABSENT: rales, rhonchi, wheezes Cardiovascular exam: PRESENT: RRR. ABSENT: diastolic murmur, rubs, systolic murmur Pulses: PRESENT: normal dorsalis pedis pul Vascular exam: PRESENT: normal capillary refill GI/Abdominal exam: PRESENT: normal bowel sounds, soft. ABSENT: distended, guarding, mass, organolmegaly, rebound, tenderness Rectal exam: PRESENT: deferred Extremities exam: PRESENT: full ROM. ABSENT: calf tenderness, clubbing, pedal edema Neurological exam: PRESENT: alert, awake, oriented to person, oriented to place , oriented to time, oriented to situation, CN II-XII grossly intact. ABSENT: motor sensory deficit Psychiatric exam: PRESENT: appropriate affect, normal mood. ABSENT: homicidal ideation, suicidal ideation Results Laboratory Results: 07/20/16 05:07 07/20/16 12:16 07/20/16 07/20/16 07/20/16 05:07 05:07 12:16 WBC 15.1 H RBC 4.42 Hgb 12.4 Hct 39.5 MCV 89 MCH 28.1 MCHC 31.5 L RDW 15.3 H Plt Count 223 Seg Neutrophils % 90.6 H Lymphocytes % 5.4 L Monocytes % 3.7 Eosinophils % 0.1 Basophils % 0.2 Absolute Neutrophils 13.7 H Absolute Lymphocytes 0.8 Absolute Monocytes 0.6 Absolute Eosinophils 0.0 Absolute Basophils 0.0 Sodium 142.9 Potassium 4.7 Chloride 93 L Carbon Dioxide 39 H Anion Gap 11 BUN 45 H Creatinine 1.01 1.03 Est GFR ( Amer) > 60 > 60 Est GFR (Non-Af Amer) 54 L 53 L Glucose 157 H Calcium 10.1 07/12/16 09:00 Troponin I 0.043 Impressions: Chest X-Ray 07/20/16 00:00 IMPRESSION: Cardiomegaly and vascular congestion Assessment & Plan - Diagnosis (1) Acute on chronic respiratory failure with hypoxia and hypercapnia Is this a current diagnosis for this admission?: YesPlan: Much improved patient now on a nasal cannula at 2l/min via which is her baseline. 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 She is on appropriate coverage for both. She is no longer coughing productively. (2) Bronchiectasis Qualifiers: Bronchiectasis type: with acute exacerbation Qualified Code(s): J47.1 - Bronchiectasis with (acute) exacerbation Is this a current diagnosis for this admission?: YesPlan: Continue nebulizers treatments and antibiotics. (3) MRSA infection Is this a current diagnosis for this admission?: YesPlan: Continue present antibiotics (4) Diabetes mellitus type II, controlled Qualifiers: Diabetes mellitus complication status: without complication Diabetes mellitus longterm insulin use: without longterm use Qualified Code(s): E11.9 - Type 2 diabetes mellitus without complications Is this a current diagnosis for this admission?: YesPlan: Continue current medications and sliding scale coverage. (5) Gastroesophageal reflux disease Qualifiers: Esophagitis presence: without esophagitis Qualified Code(s): K21.9 - Gastro-esophageal reflux disease without esophagitis Is this a current diagnosis for this admission?: YesPlan: Continue PPI therapy (6) Generalized anxiety disorder Is this a current diagnosis for this admission?: YesPlan: Continue current antianxiety medications (7) Major depression Qualifiers: Major depression recurrence: recurrent Active/Remission status: remission status unspecified Qualified Code(s): F33.9 - Major depressive disorder, recurrent, unspecified Is this a current diagnosis for this admission?: YesPlan: Continue current medications (8) UTI (urinary tract infection) due to urinary indwelling Barton catheter Qualifiers: Indwelling urinary catheter type: indwelling urethral catheter Encounter type: initial encounter Qualified Code(s): T83.511A - Infection and inflammatory reaction due to indwelling urethral catheter, initial encounter; N39.0 - Urinary tract infection, site not specified Is this a current diagnosis for this admission?: YesPlan: Continue current medications as directed (9) A-fib Qualifiers: Atrial fibrillation type: paroxysmal Qualified Code(s): I48.0 - Paroxysmal atrial fibrillation Is this a current diagnosis for this admission?: YesPlan: Cardiazem dose increased now rate controlled (10) Anemia, chronic disease Is this a current diagnosis for this admission?: YesPlan: Stable hemoglobin (11) Do not resuscitate Is this a current diagnosis for this admission?: YesPlan: Patient's request. Her MPOA agrees (12) Opiate dependence, continuous Is this a current diagnosis for this admission?: YesPlan: Continue prn opioid pain medications - Time Time Spent with patient: 25-34 minutes Critical Time spent with patient: 15-24 minutes Medications reviewed and adjusted accordingly: Yes Anticipated discharge: SNF
[2016-07-20] MEDS: BENZONATATE 100 MG CAPSULE PO SCH (23:19)
[2016-07-20] MEDS: CETIRIZINE 10 MG TABLET PO SCH (23:20)
[2016-07-21] MEDS: ALPRAZOLAM 0.25 MG TABLET PO SCH ×3 (05:50→21:35)
[2016-07-21] MEDS: OXYCODONE HCL IR 5 MG TABLET PO SCH ×4 (05:50→23:45)
[2016-07-21] MEDS: BACLOFEN 10 MG TABLET PO SCH ×3 (05:50→21:35)
[2016-07-21] MEDS: GABAPENTIN 300 MG CAPSULE PO SCH ×3 (05:50→21:34)
[2016-07-21] MEDS: DILTIAZEM HCL 60 MG TABLET PO SCH ×4 (05:51→23:46)
[2016-07-21] MEDS: LANSOPRAZOLE 15 MG TAB.RAP.DR PO SCH (05:51)
[2016-07-21] MEDS: PREGABALIN 100 MG CAPSULE PO SCH ×3 (05:51→21:35)
[2016-07-21] MEDS: HYDROCORTISONE 0.5% CREAM 28.35 GM TP SCH ×3 (05:57→21:37)
[2016-07-21] MEDS: BUDESONIDE NEB 0.5 MG/2 ML AMPUL NEB SCH ×2 (08:53→19:57)
[2016-07-21] MEDS: LEVALBUTEROL HCL NEB 1.25 MG/3 ML AMPUL NEB SCH ×3 (08:53→20:02)
[2016-07-21] MEDS: TOBRAMYCIN SULFATE NEB 40 MG/ML 30 ML NEB SCH ×2 (08:54→19:57)
[2016-07-21] MEDS: OLOPATADINE HCL 0.1% OPH SOLN 5 ML OU SCH (10:04)
[2016-07-21] MEDS: LIDOCAINE 5% (700 MG) TRANSDERMAL ADH..PATCH TP SCH (10:04)
[2016-07-21] MEDS: IPRATROPIUM BROMIDE 0.06% NASAL SPRAY 15 ML NASL SCH ×2 (10:04→18:21)
[2016-07-21] MEDS: FLUTICASONE NASAL SPRAY 50 MCG/SPRY 120 SPRAY/16 GM NASL SCH ×2 (10:05→21:36)
[2016-07-21] MEDS: LACTULOSE SYRUP 20 GM/30 ML UDCUP PO SCH ×2 (10:06→18:19)
[2016-07-21] MEDS: SITAGLIPTIN PHOSPHATE 50 MG TABLET PO SCH ×2 (10:07→18:19)
[2016-07-21] MEDS: PREDNISONE 20 MG TABLET PO SCH (10:07)
[2016-07-21] MEDS: METFORMIN HCL 500 MG TABLET PO SCH ×2 (10:07→18:18)
[2016-07-21] MEDS: MAGNESIUM OXIDE 400 MG TABLET PO SCH ×2 (10:07→18:18)
[2016-07-21] MEDS: SENNOSIDES/DOCUSATE 8.6-50 MG 1 EACH TABLET PO SCH ×2 (10:07→18:18)
[2016-07-21] MEDS: APIXABAN 2.5 MG TABLET PO SCH ×2 (10:07→18:18)
[2016-07-21] MEDS: DULOXETINE HCL 30 MG CAPSULE.DR PO SCH (10:07)
[2016-07-21] MEDS: DOCUSATE SODIUM 100 MG CAPSULE PO SCH ×2 (10:08→18:17)
[2016-07-21] MEDS: ASCORBIC ACID 500 MG TABLET PO SCH ×2 (10:08→18:26)
[2016-07-21] MEDS: MONTELUKAST SODIUM 10 MG TABLET PO SCH (10:08)
[2016-07-21] MEDS: GLIPIZIDE 10 MG TABLET PO SCH ×2 (10:09→18:18)
[2016-07-21] MEDS: FUROSEMIDE 40 MG TABLET PO SCH ×2 (10:09→18:18)
[2016-07-21] MEDS: FERROUS SULFATE 325 MG TABLET PO SCH ×2 (10:09→18:19)
[2016-07-21] MEDS: GUAIFENESIN 600 MG TABLET.SA PO SCH ×2 (10:09→21:35)
[2016-07-21] MEDS: BUPROPION HCL 75 MG TABLET PO SCH (10:09)
[2016-07-21] MEDS: LACTOBACILLUS ACIDOPHILUS 250 MG TAB PO SCH ×2 (10:09→18:19)
[2016-07-21] MEDS: BACITRACIN ZINC OINTMENT 15 GM TP SCH ×2 (10:10→18:21)
[2016-07-21] MEDS: AMLODIPINE BESYLATE 5 MG TABLET PO SCH (10:10)
[2016-07-21] MEDS: FENTANYL 50 MCG/HR PATCH.TD72 TD SCH (10:10)
[2016-07-21] MEDS: POTASSIUM CHLORIDE 10 MEQ TABLET.SA PO SCH ×2 (10:10→21:34)
[2016-07-21] MEDS: INSULIN GLARGINE,HUM.REC.ANLOG 300 UNIT/3 ML INSULN.PEN SUBCUT SCH (10:10)
--- NOTE | 2016-07-21 12:12 | PDOC PROGRESS REPORT ---
Subjective Progress Note for:: 07/21/16 Subjective:: Patient seen on morning rounds. She is presently resting in bed. She states she is feeling much better. She is breathing easier. She denies any chest pain, dyspnea or dizziness. She denies any nausea, vomiting, or diarrhea. She complains of neck pain, and back pain which is chronic. She denies any other complaints at the present time. Patient's rest of review of systems are negative. Physical Exam Vital Signs: Temp Pulse Resp BP Pulse Ox 98.2 F 92 20 128/59 H 97 07/21/16 07:25 07/21/16 08:00 07/21/16 08:00 07/21/16 07:25 07/21/16 08:00 Intake & Output 07/20/16 07/21/16 07/22/16 06:59 06:59 06:59 Intake Total 1628 1677 Output Total 2600 2700 Balance -972 -1023 Weight 112 kg 110 kg General appearance: PRESENT: no acute distress, morbidly obese, well-developed, well-nourished Head exam: PRESENT: atraumatic, normocephalic Eye exam: PRESENT: conjunctiva pink, EOMI, PERRLA. ABSENT: scleral icterus Ear exam: PRESENT: normal external ear exam Mouth exam: PRESENT: moist, tongue midline Neck exam: ABSENT: carotid bruit, JVD, lymphadenopathy, thyromegaly Respiratory exam: PRESENT: decreased breath sounds. ABSENT: rales, rhonchi, wheezes Cardiovascular exam: PRESENT: RRR. ABSENT: diastolic murmur, rubs, systolic murmur Pulses: PRESENT: normal dorsalis pedis pul GI/Abdominal exam: PRESENT: normal bowel sounds, soft. ABSENT: distended, guarding, mass, organolmegaly, rebound, tenderness Rectal exam: PRESENT: deferred Extremities exam: PRESENT: full ROM. ABSENT: calf tenderness, clubbing, pedal edema Neurological exam: PRESENT: alert, awake, oriented to person, oriented to place , oriented to time, oriented to situation, CN II-XII grossly intact. ABSENT: motor sensory deficit Psychiatric exam: PRESENT: appropriate affect, normal mood Skin exam: PRESENT: dry, intact, warm. ABSENT: cyanosis, rash Results Laboratory Results: 07/20/16 05:07 07/20/16 12:16 07/20/16 12:16 Creatinine 1.03 Est GFR ( Amer) > 60 Est GFR (Non-Af Amer) 53 L 07/12/16 09:00 Troponin I 0.043 Impressions: Chest X-Ray 07/20/16 00:00 IMPRESSION: Cardiomegaly and vascular congestion Assessment & Plan - Diagnosis (1) Acute on chronic respiratory failure with hypoxia and hypercapnia Is this a current diagnosis for this admission?: YesPlan: Much improved patient now on a nasal cannula at 2l/min via which is her baseline. 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 She is on appropriate coverage for both. She is no longer coughing productively. (2) Bronchiectasis Qualifiers: Bronchiectasis type: with acute exacerbation Qualified Code(s): J47.1 - Bronchiectasis with (acute) exacerbation Is this a current diagnosis for this admission?: YesPlan: Continue nebulizers treatments and antibiotics. 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 (5) Gastroesophageal reflux disease Qualifiers: Esophagitis presence: without esophagitis Qualified Code(s): K21.9 - Gastro-esophageal reflux disease without esophagitis Is this a current diagnosis for this admission?: YesPlan: Continue PPI therapy (6) Generalized anxiety disorder Is this a current diagnosis for this admission?: YesPlan: Continue current antianxiety medications (7) Major depression Qualifiers: Major depression recurrence: recurrent Active/Remission status: remission status unspecified Qualified Code(s): F33.9 - Major depressive disorder, recurrent, unspecified Is this a current diagnosis for this admission?: YesPlan: Continue current medications (8) UTI (urinary tract infection) due to urinary indwelling Barton catheter Qualifiers: Indwelling urinary catheter type: indwelling urethral catheter Encounter type: initial encounter Qualified Code(s): T83.511A - Infection and inflammatory reaction due to indwelling urethral catheter, initial encounter; N39.0 - Urinary tract infection, site not specified Is this a current diagnosis for this admission?: YesPlan: Continue current medications as directed (9) A-fib Qualifiers: Atrial fibrillation type: paroxysmal Qualified Code(s): I48.0 - Paroxysmal atrial fibrillation Is this a current diagnosis for this admission?: YesPlan: Cardiazem dose increased now rate controlled (10) Anemia, chronic disease Is this a current diagnosis for this admission?: YesPlan: Stable hemoglobin (11) Do not resuscitate Is this a current diagnosis for this admission?: YesPlan: Patient's request. Her MPOA agrees (12) Opiate dependence, continuous Is this a current diagnosis for this admission?: YesPlan: Continue prn opioid pain medications - Time Time Spent with patient: 25-34 minutes Critical Time spent with patient: 15-24 minutes Medications reviewed and adjusted accordingly: Yes Anticipated discharge: SNF
[2016-07-21] MEDS: GENTAMICIN SULFATE 150 MG in DEXTROSE 5%-WATER 100 ML IV SCH (13:32)
[2016-07-21] MEDS: TIOTROPIUM BROMIDE DPI 5 CAP/KIT (18 MCG/CAP) IH SCH (13:34)
[2016-07-21] MEDS: BENZONATATE 100 MG CAPSULE PO SCH ×2 (13:35→21:34)
[2016-07-21] MEDS ORDERED: MAG HYDROX/AL HYDROX/SIMETH SUSP 30 ML UDCUP ONE (16:11)
[2016-07-21] MEDS: DILTIAZEM HCL INJ 25 MG/5 ML VIAL IV PRN (18:15)
[2016-07-21] MEDS: CETIRIZINE 10 MG TABLET PO SCH (21:35)
[2016-07-22 05:13] LABS: ABSOLUTE EOSINOPHILS # (AUTO) 0.1 10^3/uL (0.0-0.6); ABSOLUTE LYMPHOCYTES (AUTO) 1.2 10^3/uL (0.5-4.7); ABSOLUTE MONOCYTES (AUTO) 0.8 10^3/uL (0.1-1.4); ABSOLUTE NEUT (AUTO) 10.1 10^3/uL (1.7-8.2); BASOPHILS % (AUTO) 0.2 % (0-2); EOSINOPHILS % (AUTO) 0.5 % (0-6); HEMATOCRIT 37.7 % (36.0-47.0); HEMOGLOBIN 11.9 g/dL (12.0-15.5); LYMPHOCYTES % (AUTO) 9.4 % (13-45); MEAN CORPUSCULAR HEMOGLOBIN 27.8 pg (27.0-33.4); MEAN CORPUSCULAR HGB CONC 31.5 g/dL (32.0-36.0); MEAN CORPUSCULAR VOLUME 88 fl (80-97); MONOCYTES % (AUTO) 6.8 % (3-13); RED BLOOD COUNT 4.27 10^6/uL (3.72-5.28); RED CELL DISTRIBUTION WIDTH 15.5 % (11.5-14.0); SEGMENTED NEUTROPHILS % (AUTO) 83.1 % (42-78); WHITE BLOOD COUNT 12.2 10^3/uL (4.0-10.5)
[2016-07-22 05:30] LABS: BLOOD UREA NITROGEN 40 mg/dL (7-20); CHLORIDE 93 mmol/L (98-107); CREATININE RESULT 1.08 mg/dL (0.52-1.25); GLUCOSE 125 mg/dL (75-110); POTASSIUM 4.1 mmol/L (3.6-5.0); SODIUM 141.1 mmol/L (137-145)
[2016-07-22 05:46] LABS: ANION GAP 8 (5-19)
[2016-07-22 05:54] LABS: CARBON DIOXIDE 40 mmol/L (22-30)
[2016-07-22] MEDS: LANSOPRAZOLE 15 MG TAB.RAP.DR PO SCH (06:53)
[2016-07-22] MEDS: ALPRAZOLAM 0.25 MG TABLET PO SCH ×3 (06:53→21:38)
[2016-07-22] MEDS: BENZONATATE 100 MG CAPSULE PO SCH ×3 (06:53→21:39)
[2016-07-22] MEDS: GABAPENTIN 300 MG CAPSULE PO SCH ×3 (06:53→21:38)
[2016-07-22] MEDS: OXYCODONE HCL IR 5 MG TABLET PO SCH ×3 (06:53→17:14)
[2016-07-22] MEDS: PREGABALIN 100 MG CAPSULE PO SCH ×3 (06:53→21:38)
[2016-07-22] MEDS: DILTIAZEM HCL 60 MG TABLET PO SCH ×3 (06:54→17:30)
[2016-07-22] MEDS: BACLOFEN 10 MG TABLET PO SCH ×3 (06:54→21:38)
[2016-07-22] MEDS: HYDROCORTISONE 0.5% CREAM 28.35 GM TP SCH ×3 (06:55→21:43)
[2016-07-22] MEDS: BUDESONIDE NEB 0.5 MG/2 ML AMPUL NEB SCH ×2 (07:33→20:07)
[2016-07-22] MEDS: TOBRAMYCIN SULFATE NEB 40 MG/ML 30 ML NEB SCH (07:33)
[2016-07-22] MEDS: LEVALBUTEROL HCL NEB 1.25 MG/3 ML AMPUL NEB SCH ×3 (07:33→20:07)
[2016-07-22] MEDS ORDERED: MAG HYDROX/AL HYDROX/SIMETH SUSP 30 ML UDCUP PO PRN (08:30)
[2016-07-22] MEDS ORDERED: MAGNESIUM HYDROXIDE SUSP 30 ML UDCUP PO PRN (08:32)
[2016-07-22] MEDS ORDERED: ALTEPLASE INJ 2 MG VIAL (CATH CLEARANCE) IV ONE (09:32)
[2016-07-22] MEDS: GLIPIZIDE 10 MG TABLET PO SCH ×2 (09:44→17:14)
[2016-07-22] MEDS: GUAIFENESIN 600 MG TABLET.SA PO SCH ×2 (09:45→21:37)
[2016-07-22] MEDS: SITAGLIPTIN PHOSPHATE 50 MG TABLET PO SCH ×2 (09:45→17:15)
[2016-07-22] MEDS: DOCUSATE SODIUM 100 MG CAPSULE PO SCH ×2 (09:45→17:15)
[2016-07-22] MEDS: SENNOSIDES/DOCUSATE 8.6-50 MG 1 EACH TABLET PO SCH ×2 (09:45→17:45)
[2016-07-22] MEDS: LACTULOSE SYRUP 20 GM/30 ML UDCUP PO SCH ×3 (09:45→17:45)
[2016-07-22] MEDS: BUPROPION HCL 75 MG TABLET PO SCH (09:45)
[2016-07-22] MEDS: APIXABAN 2.5 MG TABLET PO SCH ×2 (09:45→17:14)
[2016-07-22] MEDS: FUROSEMIDE 40 MG TABLET PO SCH (09:46)
[2016-07-22] MEDS: MONTELUKAST SODIUM 10 MG TABLET PO SCH (09:46)
[2016-07-22] MEDS: AMLODIPINE BESYLATE 5 MG TABLET PO SCH (09:46)
[2016-07-22] MEDS: DULOXETINE HCL 30 MG CAPSULE.DR PO SCH (09:46)
[2016-07-22] MEDS: METFORMIN HCL 500 MG TABLET PO SCH ×2 (09:47→17:15)
[2016-07-22] MEDS: POTASSIUM CHLORIDE 10 MEQ TABLET.SA PO SCH ×2 (09:47→21:38)
[2016-07-22] MEDS: FERROUS SULFATE 325 MG TABLET PO SCH ×2 (09:47→17:45)
[2016-07-22] MEDS: ASCORBIC ACID 500 MG TABLET PO SCH ×2 (09:47→17:14)
[2016-07-22] MEDS: PREDNISONE 20 MG TABLET PO SCH (09:47)
[2016-07-22] MEDS: INSULIN GLARGINE,HUM.REC.ANLOG 300 UNIT/3 ML INSULN.PEN SUBCUT SCH (09:47)
[2016-07-22] MEDS: LACTOBACILLUS ACIDOPHILUS 250 MG TAB PO SCH ×2 (09:48→17:16)
[2016-07-22] MEDS: TIOTROPIUM BROMIDE DPI 5 CAP/KIT (18 MCG/CAP) IH SCH (09:48)
[2016-07-22] MEDS: BACITRACIN ZINC OINTMENT 15 GM TP SCH (09:48)
[2016-07-22] MEDS: MAGNESIUM OXIDE 400 MG TABLET PO SCH ×2 (09:48→17:15)
[2016-07-22] MEDS: IPRATROPIUM BROMIDE 0.06% NASAL SPRAY 15 ML NASL SCH ×2 (09:49→17:45)
[2016-07-22] MEDS: FLUTICASONE NASAL SPRAY 50 MCG/SPRY 120 SPRAY/16 GM NASL SCH ×2 (09:49→21:42)
[2016-07-22] MEDS: OLOPATADINE HCL 0.1% OPH SOLN 5 ML OU SCH (09:49)
--- NOTE | 2016-07-22 11:07 | PDOC PROGRESS REPORT ---
Subjective Progress Note for:: 07/22/16 Subjective:: Patient seen on morning rounds. She is presently resting in bed. She states she is feeling much better. She is breathing easier. She denies any chest pain, dyspnea or dizziness. She denies any nausea, vomiting, or diarrhea. She is complaining of feeling bloated and constipated. Her bowels haven't moved in 2 days. She complains of neck pain, and back pain which is chronic. She denies any other complaints at the present time. Patient's rest of review of systems are negative. Physical Exam Vital Signs: Temp Pulse Resp BP Pulse Ox 97.2 F 120 H 18 125/62 97 07/22/16 07:30 07/22/16 07:33 07/22/16 07:33 07/22/16 07:30 07/22/16 07:33 Intake & Output 07/21/16 07/22/16 07/23/16 06:59 06:59 06:59 Intake Total 1677 1720 Output Total 2700 3350 Balance -1023 -1630 Weight 110 kg 111.3 kg General appearance: PRESENT: no acute distress, morbidly obese, well-developed, well-nourished Head exam: PRESENT: atraumatic, normocephalic Eye exam: PRESENT: conjunctiva pink, EOMI, PERRLA. ABSENT: scleral icterus Ear exam: PRESENT: normal external ear exam Mouth exam: PRESENT: moist, tongue midline Neck exam: ABSENT: carotid bruit, JVD, lymphadenopathy, thyromegaly Respiratory exam: PRESENT: clear to auscultation elia. ABSENT: rales, rhonchi, wheezes Cardiovascular exam: PRESENT: RRR. ABSENT: diastolic murmur, rubs, systolic murmur Pulses: PRESENT: normal dorsalis pedis pul Vascular exam: PRESENT: normal capillary refill GI/Abdominal exam: PRESENT: distended, normal bowel sounds, soft Rectal exam: PRESENT: deferred Extremities exam: PRESENT: full ROM. ABSENT: calf tenderness, clubbing, pedal edema Neurological exam: PRESENT: alert, awake, oriented to person, oriented to place , oriented to time, oriented to situation, CN II-XII grossly intact. ABSENT: motor sensory deficit Psychiatric exam: PRESENT: appropriate affect, normal mood. ABSENT: homicidal ideation, suicidal ideation Skin exam: PRESENT: dry, intact, warm. ABSENT: cyanosis, rash Results Laboratory Results: 07/22/16 04:01 07/22/16 04:01 07/22/16 07/22/16 04:01 04:01 WBC 12.2 H RBC 4.27 Hgb 11.9 L Hct 37.7 MCV 88 MCH 27.8 MCHC 31.5 L RDW 15.5 H Plt Count 215 Seg Neutrophils % 83.1 H Lymphocytes % 9.4 L Monocytes % 6.8 Eosinophils % 0.5 Basophils % 0.2 Absolute Neutrophils 10.1 H Absolute Lymphocytes 1.2 Absolute Monocytes 0.8 Absolute Eosinophils 0.1 Absolute Basophils 0.0 Sodium 141.1 Potassium 4.1 Chloride 93 L Carbon Dioxide 40 H* Anion Gap 8 BUN 40 H Creatinine 1.08 Est GFR ( Amer) > 60 Est GFR (Non-Af Amer) 50 L Glucose 125 H Calcium 10.0 07/12/16 09:00 Troponin I 0.043 Impressions: Chest X-Ray 07/20/16 00:00 IMPRESSION: Cardiomegaly and vascular congestion Assessment & Plan - Diagnosis (1) Acute on chronic respiratory failure with hypoxia and hypercapnia Is this a current diagnosis for this admission?: YesPlan: Much improved patient now on a nasal cannula at 2l/min via which is her baseline. 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 She is on appropriate coverage for both. She is no longer coughing productively. (2) Bronchiectasis Qualifiers: Bronchiectasis type: with acute exacerbation Qualified Code(s): J47.1 - Bronchiectasis with (acute) exacerbation Is this a current diagnosis for this admission?: YesPlan: Continue nebulizers treatments and antibiotics. (3) MRSA infection Is this a current diagnosis for this admission?: YesPlan: Continue present antibiotics (4) Diabetes mellitus type II, controlled Qualifiers: Diabetes mellitus complication status: without complication Diabetes mellitus snf insulin use: without adjunct faculty for medical terminology use Qualified Code(s): E11.9 - Type 2 diabetes mellitus without complications Is this a current diagnosis for this admission?: YesPlan: Continue current medications and sliding scale coverage. (5) Gastroesophageal reflux disease Qualifiers: Esophagitis presence: without esophagitis Qualified Code(s): K21.9 - Gastro-esophageal reflux disease without esophagitis Is this a current diagnosis for this admission?: YesPlan: Continue PPI therapy (6) Generalized anxiety disorder Is this a current diagnosis for this admission?: YesPlan: Continue current antianxiety medications (7) Major depression Qualifiers: Major depression recurrence: recurrent Active/Remission status: remission status unspecified Qualified Code(s): F33.9 - Major depressive disorder, recurrent, unspecified Is this a current diagnosis for this admission?: YesPlan: Continue current medications (8) UTI (urinary tract infection) due to urinary indwelling Barton catheter Qualifiers: Indwelling urinary catheter type: indwelling urethral catheter Encounter type: initial encounter Qualified Code(s): T83.511A - Infection and inflammatory reaction due to indwelling urethral catheter, initial encounter; N39.0 - Urinary tract infection, site not specified Is this a current diagnosis for this admission?: YesPlan: Continue current medications as directed (9) A-fib Qualifiers: Atrial fibrillation type: paroxysmal Qualified Code(s): I48.0 - Paroxysmal atrial fibrillation Is this a current diagnosis for this admission?: YesPlan: Cardiazem dose increased now rate controlled (10) Anemia, chronic disease Is this a current diagnosis for this admission?: YesPlan: Stable hemoglobin (11) Do not resuscitate Is this a current diagnosis for this admission?: YesPlan: Patient's request. Her MPOA agrees (12) Opiate dependence, continuous Is this a current diagnosis for this admission?: YesPlan: Continue prn opioid pain medications (13) Constipation due to opioid therapy Is this a current diagnosis for this admission?: YesPlan: Will increase lactulose to tid, prn enema - Time Time Spent with patient: 25-34 minutes Medications reviewed and adjusted accordingly: Yes Anticipated discharge: SNF
[2016-07-22 12:46] LABS: GENTAMICIN-TROUGH 0.9 ug/mL (<2.0)
[2016-07-22] MEDS ORDERED: GENTAMICIN SULFATE 150 MG in DEXTROSE 5%-WATER 100 ML IV ONE (14:30)
[2016-07-22] MEDS: LIDOCAINE 5% (700 MG) TRANSDERMAL ADH..PATCH TP SCH (14:57)
[2016-07-22 17:22] LABS: GENTAMICIN-PEAK 8.9 ug/mL (5.0-10.0)
[2016-07-22] MEDS: CETIRIZINE 10 MG TABLET PO SCH (21:37)
[2016-07-23] MEDS: OXYCODONE HCL IR 5 MG TABLET PO SCH ×3 (00:06→14:10)
[2016-07-23] MEDS: DILTIAZEM HCL 60 MG TABLET PO SCH ×3 (00:07→14:10)
[2016-07-23 04:59] LABS: ABSOLUTE LYMPHOCYTES (AUTO) 0.9 10^3/uL (0.5-4.7); ABSOLUTE MONOCYTES (AUTO) 0.8 10^3/uL (0.1-1.4); ABSOLUTE NEUT (AUTO) 10.2 10^3/uL (1.7-8.2); BASOPHILS % (AUTO) 0.1 % (0-2); EOSINOPHILS % (AUTO) 0.3 % (0-6); HEMATOCRIT 37.8 % (36.0-47.0); HGB HCT DIFFERENCE -1.8; LYMPHOCYTES % (AUTO) 7.4 % (13-45); MEAN CORPUSCULAR HEMOGLOBIN 28.1 pg (27.0-33.4); MEAN CORPUSCULAR HGB CONC 31.8 g/dL (32.0-36.0); MEAN CORPUSCULAR VOLUME 88 fl (80-97); MONOCYTES % (AUTO) 6.7 % (3-13); RED BLOOD COUNT 4.29 10^6/uL (3.72-5.28); RED CELL DISTRIBUTION WIDTH 15.3 % (11.5-14.0); SEGMENTED NEUTROPHILS % (AUTO) 85.5 % (42-78)
[2016-07-23 05:05] LABS: BLOOD UREA NITROGEN 37 mg/dL (7-20); CALCIUM 10.4 mg/dL (8.4-10.2); CHLORIDE 92 mmol/L (98-107); CREATININE RESULT 1.09 mg/dL (0.52-1.25); GLUCOSE 114 mg/dL (75-110); POTASSIUM 4.4 mmol/L (3.6-5.0); SODIUM 143.2 mmol/L (137-145)
[2016-07-23 05:19] LABS: ANION GAP 9 (5-19)
[2016-07-23 05:20] LABS: CARBON DIOXIDE 42 mmol/L (22-30)
[2016-07-23] MEDS: BACLOFEN 10 MG TABLET PO SCH ×2 (06:11→14:32)
[2016-07-23] MEDS: LANSOPRAZOLE 15 MG TAB.RAP.DR PO SCH (06:11)
[2016-07-23] MEDS: ALPRAZOLAM 0.25 MG TABLET PO SCH ×2 (06:11→14:32)
[2016-07-23] MEDS: BENZONATATE 100 MG CAPSULE PO SCH ×2 (06:11→14:34)
[2016-07-23] MEDS: PREGABALIN 100 MG CAPSULE PO SCH ×2 (06:12→14:33)
[2016-07-23] MEDS: GABAPENTIN 300 MG CAPSULE PO SCH ×2 (06:12→14:32)
[2016-07-23] MEDS: HYDROCORTISONE 0.5% CREAM 28.35 GM TP SCH ×2 (06:15→14:35)
[2016-07-23] MEDS: LEVALBUTEROL HCL NEB 1.25 MG/3 ML AMPUL NEB SCH ×2 (07:38→14:10)
[2016-07-23] MEDS: BUDESONIDE NEB 0.5 MG/2 ML AMPUL NEB SCH (07:38)
--- NOTE | 2016-07-23 08:42 | PDOC TRANSFER SUMMARY ---
General - Admit/Disc Date/PCP Admission Date/Primary Care [facility]: 07[facility]23/16 - Discharge Diagnosis (1) Acute on chronic respiratory failure with hypoxia and hypercapnia Is this a current diagnosis for this admission?: YesSummary: Hypercapnea and hypoxia have resolved. Patient treated 10 days for mucopurulent bronchiectasis (2) Bronchiectasis Is this a current diagnosis for this admission?: YesSummary: Improved. 10 days of antibiotic treatment have been completed (3) MRSA infection Is this a current diagnosis for this admission?: YesSummary: Treated and improved. (4) Diabetes mellitus type II, controlled Is this a current diagnosis for this admission?: YesSummary: Continue present insulin coverage (5) Gastroesophageal reflux disease Is this a current diagnosis for this admission?: YesSummary: Continue PPI therapy (6) Generalized anxiety disorder Is this a current diagnosis for this admission?: YesSummary: Continue xanax as directed (7) Major depression Is this a current diagnosis for this admission?: YesSummary: Continue SSRI (8) UTI (urinary tract infection) due to urinary indwelling Barton catheter Is this a current diagnosis for this admission?: YesSummary: Completed antibiotic course (9) A-fib Is this a current diagnosis for this admission?: YesSummary: Paroxymal increase Cardiazem on Eliquis (10) Anemia, chronic disease Is this a current diagnosis for this admission?: YesSummary: Stable (11) Do not resuscitate Is this a current diagnosis for this admission?: YesSummary: Patient and MPOA agree (12) Opiate dependence, continuous Is this a current diagnosis for this admission?: YesSummary: Continue current pain regimen (13) Constipation due to opioid therapy Is this a current diagnosis for this admission?: YesSummary: Continue bowel regimen. - Additional Information Resuscitation Status: Do Not Resuscitate - Portable DO NOT RESUSCITATE DO NOT INTUBATE Discharge Diet: Cardiac, Diabetic Discharge Activity: Activity As Tolerated Home Medications: Fluticasone Propionate [Flonase Nasal [place] 50 Mcg/[place] 16 gm] 2 spray IH Q12 04/02/15 Olopatadine HCl [Patanol 0.1% Oph Soln 5 ml] 1 drop BTH_EYE DAILY 04/02/15 Tiotropium [place] [Spiriva Handihaler 18 mcg/dose (30 Dose)] 1 cap IH DAILY 09/12 Sennosides/Docusate 8.6-50 mg [Senna Plus Tablet] 1 each PO BID #60 tablet 04/06 Apixaban [Eliquis 2.5 mg Tablet] 2.5 mg PO BID 09/09/15 Cetirizine HCl [Zyrtec 10 mg Tablet] 10 mg PO QHS 09/09/15 Montelukast Sodium [Singulair 10 mg Tablet] 10 mg PO DAILY 09/09/15 Amlodipine Besylate [Norvasc 5 mg Tablet] 5 mg PO DAILY 11/07/15 Polyethylene Glycol 3350 [Miralax Powder 17 gm/Packet] 1 packet PO BID 11/07/15 Simethicone [Gas-X] 80 mg PO DAILYP PRN 11/07/15 Melatonin 5 mg PO QHS 11/13/15 Ascorbic Acid [Vitamin C 500 mg Tablet] 500 mg PO BID 01/05/16 Clonidine HCl [Catapres 0.2 mg Tablet] 0.2 mg PO Q12 01/05/16 Duloxetine HCl [Cymbalta] 90 mg PO DAILY 01/05/16 Ferrous Sulfate [Feosol] 325 mg PO BID 01/05/16 Saccharomyces Boulardii [Florastor] 250 mg PO BID 01/05/16 Budesonide [Pulmicort Neb 0.5 mg/2 ml Ampul] 0.5 mg NEB RTQ12 ampul.neb Bupropion HCl [Wellbutrin 75 mg Tablet] 75 mg PO DAILY tablet 01/10/16 Albuterol Sulfate [Ventolin 0.083% Neb 2.5 mg/3 mL Ampul] 2.5 mg NEB RTQ6 PRN Ipratropium [place] [Atrovent 0.06% Nasal [place]] 1 spray NASL BID 02/12/16 Potassium Chloride [Klor-Con 10 Meq Tablet.sa] 20 meq PO Q12 tablet.sa Hydrocortisone Acetate [Hydrocortisone] 1 applic TOP Q8 04/18/16 Mag Oxide/D3/Turmeric Rt Xt [Magnesium-Vit D3-Turmeric Cap] 400 mg PO BID Menthol [Biofreeze] 1 applic TP Q8HP PRN 04/18/16 Baclofen [Baclofen 10 mg Tablet] 10 mg PO TID #20 tablet 04/23/16 Lidocaine [Lidoderm 5% (700 mg) Transdermal Patch] 3 patch TP DAILY #7 adh..patch 04/23/16 Fentanyl [Duragesic 50 Mcg/Hr Transdermal Patch] 1 each TD Q3DAYS #2 patch.td72 05/18/16 Cranberry [Cranberry 400 mg Capsule] 1 tab PO BID 06/10/16 Gabapentin 300 mg PO TID 06/10/16 Omeprazole Magnesium [Prilosec Otc] 20 mg PO QAM 06/10/16 Furosemide [Lasix 40 mg Tablet] 40 mg PO BID tablet 06/15/16 Guaifenesin [Mucinex Sr 600 mg Tablet.sa] 1,200 mg PO Q12 tablet.sa 06/15/16 Pregabalin [Lyrica 100 mg Capsule] 100 mg PO TID #90 capsule 06/15/16 Glipizide [Glucotrol 10 mg Tablet] 10 mg PO BIDBS tablet 06/16/16 Insulin Glargine,Hum.rec.anlog [Lantus] 20 unit SQ QAM #1 vial 06/16/16 Metformin HCl 500 mg PO BID #60 tablet 06/16/16 Prednisone [Deltasone 20 mg Tablet] 30 mg PO BID tablet 06/16/16 Sitagliptin Phosphate [Januvia 50 mg Tablet] 50 mg PO BIDACBS tablet 06/16/16 Acetaminophen [Tylenol 325 mg Tablet] 650 mg PO Q4HP PRN 07/12/16 Alprazolam [Xanax 0.25 mg Tablet] 0.25 mg PO TID #15 tablet 07/23/16 Benzonatate [Tessalon Perles 100 mg Capsule] 200 mg PO Q8 capsule 07/23/16 Diltiazem HCl [Cardizem 60 mg Tablet] 60 mg PO Q6 tablet 07/23/16 Magnesium Hydroxide [Milk of Magnesia 30 ml Udcup] 30 ml PO Q6HP PRN udc Na Phos,M-B/Na Phos,Di-Ba [Fleet Enema (Adult) 133 ml] 133 ml PA DAILYP PRN enema 07/23/16 Oxycodone HCl [Oxycodone HCl 10 MG Tablet] 10 mg PO Q6 #20 tablet 07/23/16 History of Present Illness Admission Date/PCP: 07/12/16 08:21 MUSA HODGSON Patient complains of: Cough, shortness of breath and dyspnea History of Present Illness: PORSHA WALDRON is a 71 year [facility] Chronic respiratory failure chronic atrial fibrillation;Chronic aspiration due to dysphagia emergency room shortness of breath. She is currently a resident of [facility] multiple antibiotic resistant agents She has been complaining of progressive cough and dyspnea over 48 hours prior to admission;Currently she has slowly been improving and is wearing her BiPAP at nighttime Hospital Course Hospital Course: Patient was admitted to the Hospitalist service from the ED with acute on chronic respiratory failure with hypoxia and hypercapnea , and UTI. She was admitted to the IMCU on telemetry. She was pancultured and started on empiric antibiotic therapy according to previous cultures. Dr Ahuja saw the patient for pulmonary consult. After cultures were obtained. Her antibiotics were descalated. Sputum culture grew MRSA and CRE bacteria. [facility] was consulted. She was covered with 10 day course of Tobramycin nebulizer and IV Gentamycin. Her leucocytosis and fever resolved. Her cough has improved. She was reminded she needs to wear CPAP all night. Today she is ready to return to [place]. Physical Exam Vital Signs: Temp Pulse Resp BP Pulse Ox 98.0 F 89 20 151/70 H 98 07/23/16 04:06 07/23/16 07:00 07/23/16 04:06 07/23/16 04:06 07/23/16 04:06 Intake & Output 07/22/16 07/23/16 07/24/16 06:59 06:59 06:59 Intake Total 1720 1265 Output Total 3350 2550 Balance -1630 -1285 Weight 111.3 kg 111.7 kg General appearance: PRESENT: no acute distress, morbidly obese, well-developed, well-nourished Head exam: PRESENT: atraumatic, normocephalic Eye exam: PRESENT: conjunctiva pink, EOMI, PERRLA. ABSENT: scleral icterus Ear exam: PRESENT: normal external ear exam Mouth exam: PRESENT: moist, tongue midline Neck exam: ABSENT: carotid bruit, JVD, lymphadenopathy, thyromegaly Respiratory exam: PRESENT: decreased breath sounds, symmetrical, unlabored Pulses: PRESENT: normal dorsalis pedis pul Vascular exam: PRESENT: normal capillary refill Rectal exam: PRESENT: deferred Extremities exam: PRESENT: full ROM. ABSENT: calf tenderness, clubbing, pedal edema Neurological exam: PRESENT: alert, awake, oriented to person, oriented to place , oriented to time, oriented to situation, CN II-XII grossly intact. ABSENT: motor sensory deficit Psychiatric exam: PRESENT: appropriate affect, normal mood. ABSENT: homicidal ideation, suicidal ideation Skin exam: PRESENT: dry, intact, warm. ABSENT: cyanosis, rash Results Laboratory Results: 07/23/16 03:36 07/23/16 03:36 07/22/16 07/23/16 07/23/16 12:00 03:36 03:36 WBC 12.0 H RBC 4.29 Hgb 12.0 Hct 37.8 MCV 88 MCH 28.1 MCHC 31.8 L RDW 15.3 H Plt Count 230 Seg Neutrophils % 85.5 H Lymphocytes % 7.4 L Monocytes % 6.7 Eosinophils % 0.3 Basophils % 0.1 Absolute Neutrophils 10.2 H Absolute Lymphocytes 0.9 Absolute Monocytes 0.8 Absolute Eosinophils 0.0 Absolute Basophils 0.0 Sodium 143.2 Potassium 4.4 Chloride 92 L Carbon Dioxide 42 H* Anion Gap 9 BUN 37 H Creatinine 1.20 1.09 Est GFR ( Amer) 53 L > 60 Est GFR (Non-Af Amer) 44 L 49 L Glucose 114 H Calcium 10.4 H 07/12/16 09:00 Troponin I 0.043 Impressions: Chest X-Ray 07/20/16 00:00 IMPRESSION: Cardiomegaly and vascular congestion Transfer Plan - Disposition Transfer Plan: Patient will return to [facility] Qualifiers [facility] BEING DISCHARGED WITH ANY OF THE FOLLOWING DIAGNOSIS?: No Plan Time Spent: Less than 30 Minutes
[2016-07-23] MEDS: POTASSIUM CHLORIDE 10 MEQ TABLET.SA PO SCH (10:47)
[2016-07-23] MEDS: MAGNESIUM OXIDE 400 MG TABLET PO SCH (10:49)
[2016-07-23] MEDS: GLIPIZIDE 10 MG TABLET PO SCH (10:49)
[2016-07-23] MEDS: GUAIFENESIN 600 MG TABLET.SA PO SCH (10:50)
[2016-07-23] MEDS: SITAGLIPTIN PHOSPHATE 50 MG TABLET PO SCH (10:50)
[2016-07-23] MEDS: DULOXETINE HCL 30 MG CAPSULE.DR PO SCH (10:51)
[2016-07-23] MEDS: BUPROPION HCL 75 MG TABLET PO SCH (10:51)
[2016-07-23] MEDS: FERROUS SULFATE 325 MG TABLET PO SCH (10:52)
[2016-07-23] MEDS: METFORMIN HCL 500 MG TABLET PO SCH (10:52)
[2016-07-23] MEDS: FUROSEMIDE 40 MG TABLET PO SCH (10:52)
[2016-07-23] MEDS: AMLODIPINE BESYLATE 5 MG TABLET PO SCH (10:53)
[2016-07-23] MEDS: ASCORBIC ACID 500 MG TABLET PO SCH (10:53)
[2016-07-23] MEDS: SENNOSIDES/DOCUSATE 8.6-50 MG 1 EACH TABLET PO SCH (10:53)
[2016-07-23] MEDS: DOCUSATE SODIUM 100 MG CAPSULE PO SCH (10:53)
[2016-07-23] MEDS: LACTOBACILLUS ACIDOPHILUS 250 MG TAB PO SCH (10:54)
[2016-07-23] MEDS: PREDNISONE 20 MG TABLET PO SCH (10:54)
[2016-07-23] MEDS: APIXABAN 2.5 MG TABLET PO SCH (10:54)
[2016-07-23] MEDS: MONTELUKAST SODIUM 10 MG TABLET PO SCH (10:54)
[2016-07-23] MEDS: FLUTICASONE NASAL SPRAY 50 MCG/SPRY 120 SPRAY/16 GM NASL SCH (10:55)
[2016-07-23] MEDS: TIOTROPIUM BROMIDE DPI 5 CAP/KIT (18 MCG/CAP) IH SCH (10:56)
[2016-07-23] MEDS: IPRATROPIUM BROMIDE 0.06% NASAL SPRAY 15 ML NASL SCH (10:57)
[2016-07-23] MEDS: INSULIN GLARGINE,HUM.REC.ANLOG 300 UNIT/3 ML INSULN.PEN SUBCUT SCH (10:58)
[2016-07-23] MEDS: OLOPATADINE HCL 0.1% OPH SOLN 5 ML OU SCH (10:58)
[2016-07-23] MEDS: LACTULOSE SYRUP 20 GM/30 ML UDCUP PO SCH ×2 (11:07→14:35)
[2016-07-23] MEDS: LIDOCAINE 5% (700 MG) TRANSDERMAL ADH..PATCH TP SCH (11:07)
[2016-07-23 12:13] VITALS: BP 150/71
== END 2016-07-23 15:38 | DRG 698 ==
LOC: ER 23:00 → UNDOADMIN 07-12 06:29 → EH 07-12 06:29 → 3N 07-12 14:12
PROVIDERS: ADMIT Family Medicine; ATTEND Family Medicine
PROC: 3E0F73Z Introduction of Anti-inflammatory into Respiratory Tract, Via Natural or Artificial Opening (ICD-10-PCS; 2016-07-12)
PROC: 5A09457 Assistance with Respiratory Ventilation, 24-96 Consecutive Hours, Continuous Positive Airway Pressure (ICD-10-PCS; principal; 2016-07-13)
DX: T83.511A Infection and inflammatory reaction due to indwelling urethral catheter, initial encounter (principal); J96.21 Acute and chronic respiratory failure with hypoxia; J96.22 Acute and chronic respiratory failure with hypercapnia; J47.1 Bronchiectasis with (acute) exacerbation; I50.32 Chronic diastolic (congestive) heart failure; I13.0 Hypertensive heart and chronic kidney disease with heart failure and stage 1 through stage 4 chronic kidney disease, or unspecified chronic kidney disease; F33.9 Major depressive disorder, recurrent, unspecified; E66.2 Morbid (severe) obesity with alveolar hypoventilation; Z68.42 Body mass index [BMI] 45.0-49.9, adult; E27.40 Unspecified adrenocortical insufficiency; N39.0 Urinary tract infection, site not specified; K21.9 Gastro-esophageal reflux disease without esophagitis; F41.1 Generalized anxiety disorder; Z66 Do not resuscitate; K59.03 Drug induced constipation; T40.2X5A Adverse effect of other opioids, initial encounter; B96.89 Other specified bacterial agents as the cause of diseases classified elsewhere; Z16.10 Resistance to unspecified beta lactam antibiotics; J45.909 Unspecified asthma, uncomplicated; E11.22 Type 2 diabetes mellitus with diabetic chronic kidney disease; N18.3 Chronic kidney disease, stage 3 (moderate); D63.1 Anemia in chronic kidney disease; M19.90 Unspecified osteoarthritis, unspecified site; M10.9 Gout, unspecified; I25.2 Old myocardial infarction; I48.0 Paroxysmal atrial fibrillation; F19.982 Other psychoactive substance use, unspecified with psychoactive substance-induced sleep disorder; G89.4 Chronic pain syndrome; B95.62 Methicillin resistant Staphylococcus aureus infection as the cause of diseases classified elsewhere; B96.4 Proteus (mirabilis) (morganii) as the cause of diseases classified elsewhere; Z79.899 Other long term (current) drug therapy; Z88.2 Allergy status to sulfonamides; Z88.8 Allergy status to other drugs, medicaments and biological substances; Z79.4 Long term (current) use of insulin; Z86.711 Personal history of pulmonary embolism; Z74.01 Bed confinement status; Z90.49 Acquired absence of other specified parts of digestive tract; Z90.710 Acquired absence of both cervix and uterus; Z87.891 Personal history of nicotine dependence; Z82.61 Family history of arthritis; Z83.3 Family history of diabetes mellitus; Z82.49 Family history of ischemic heart disease and other diseases of the circulatory system; Z82.3 Family history of stroke
CPT/HCPCS: 36415; 71010; 80048; 80053; 80170; 80202; 81001; 82550; 82553; 82565; 82728; 82803; 82962; 83540; 83550; 83605; 83735; 83880; 84443; 84484; 85025; 85027; 85610; 87040; 87070; 87077; 87086; 87088; 87186; 87205; 93005; 93010; 94640; 94660; 94668; 94799; 96361; 96365; 99285; J1580; J1642; J1815; J2543; J2997; J3370; J3475; J3490; J7030; J7060; J7512; J7614; J7620; J7685

== ENCOUNTER 2016-07-26 15:55 | Emergency (ER) | payer MEDICARE, MEDICAID ==
[2016-07-26] MEDS ORDERED: HEPARIN SOD (PORCINE) 1 UNIT/ML PF 3 ML SYRINGE IV ONE (17:06)
[2016-07-26] MEDS ORDERED: IPRATROPIUM/ALBUTEROL 0.5-2.5 MG/3 ML AMPUL NEB SCH (17:30)
--- NOTE | 2016-07-26 17:33 | ER Document Report ---
ED Respiratory Problem - General Chief Complaint: Shortness Of Breath Stated Complaint: DIFFICULTY BREATHING Information source: Patient Notes: Patient is a 71-year-old female who comes from the [facility] care with past medical history as recorded including some chronic respiratory issues who presents today with some shortness of breath and cough. Patient was just discharged on 07/27/2016 for acute on chronic respiratory failure with hypoxia and hypercapnia. Patient received a ten-day course of antibiotics. Patient is a DO NOT RESUSCITATE. Patient denies any chest pain, nausea, vomiting, or diarrhea. On this previous admission she had some sputum that grew MRSA and CRE bacteria. da infectious disease was consulted. She was covered with a ten-day course of tobramycin nebulizer and IV gentamicin. Her leukocytosis and fever resolved. Patient has had no fevers at the facility. TRAVEL OUTSIDE OF THE [place] IN LAST 30 DAYS: No - HPI Patient complains to provider of: Short of breath Onset: Other - See above Duration: Better, Continuous Quality of pain: No pain Severity: Moderate Pain Level: Denies Context: Other - See above Short of Breath: Moderate Cough: Nonproductive Sputum amount: None Associated symptoms: Other - See above - Related Data Allergies/Adverse Reactions: Sulfa (Sulfonamide Antibiotics) Allergy (Intermediate, Verified 10/01/15 18:47) adhesive tape Allergy (Verified 10/01/15 18:47) atorvastatin calcium [From Lipitor] Allergy (Verified 10/01/15 18:47) celecoxib [From Celebrex] Allergy (Verified 10/01/15 18:47) Past Medical History - General Information source: Patient - Social History Smoking Status: Unknown if Ever Smoked Cigarette use (# per day): No Chew tobacco use (# tins/day): No Smoking Education Provided: No Frequency of alcohol use: None Drug Abuse: None Family History: Arthritis, CAD, CVA, DM, Hypertension - Past Medical History Cardiac Medical History: Reports: Hx Atrial Fibrillation, Hx Congestive Heart Failure - Diastolic dysfunction, Hx Heart Attack, Hx Hypertension - essential, Hx Pulmonary Embolism, Hx Heart Murmur Denies: Hx Coronary Artery Disease, Hx DVT, Hx Hypercholesterolemia, Hx Peripheral Vascular Disease Pulmonary Medical History: Reports: Hx Asthma, Hx Bronchitis, Hx COPD, Hx Pneumonia - Recurrent MRSA pneumonia., Hx Sleep Apnea - Uses C Pap Denies: Hx Tuberculosis Neurological Medical History: Denies: Hx Seizures Endocrine Medical History: Reports: Hx Diabetes Mellitus Type 2. Denies: Hx Diabetes Mellitus Type 1, Hx Hyperthyroidism, Hx Hypothyroidism Renal/ Medical History: Reports: Hx Renal Insufficiency GI Medical History: Reports: Hx Gastroesophageal Reflux Disease, Hx Hiatal Hernia. Denies: Hx Cirrhosis, Hx Hepatitis Musculoskeltal Medical History: Reports Hx Arthritis, Reports Hx Fibromyalgia, Reports Hx Gout, Reports Hx Muscle Weakness Skin Medical History: Denies Hx Eczema, Denies Hx Psoriasis Psychiatric Medical History: Reports: Hx Anxiety, Hx Depression Infectious Medical History: Reports: Hx MRSA. 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 - Immunizations Hx Diphtheria, Pertussis, Tetanus Vaccination: Yes Hx Pneumococcal Vaccination: 05/20/13 Review of Systems - Review of Systems Constitutional: denies: Fever EENT: denies: Eye discharge, Nose discharge Cardiovascular: denies: Chest pain, Palpitations, Heart racing, Lightheaded Respiratory: Cough, Short of breath. denies: Hurts to breathe, Hemoptysis Gastrointestinal: denies: Vomiting Genitourinary: denies: Dysuria Musculoskeletal: denies: Leg swelling Skin: Other - no hives. denies: Rash Neurological/Psychological: Other - no slurred speech -: Yes All other systems reviewed and negative Physical Exam - Vital signs Vitals: Temp Pulse Resp BP Pulse Ox 98.2 F 80 16 133/78 H 100 07/26/16 16:05 07/26/16 16:05 07/26/16 16:05 07/26/16 16:05 07/26/16 16:05 Notes: Reviewed vital signs and nursing note as charted by RN. CONSTITUTIONAL: Alert and oriented and responds appropriately to questions. Patient is sitting wearing a nasal cannula speaking in complete sentences. NECK: Supple without meningismus; non-tender; no cervical lymphadenopathy, no masses CARD: Regular rate and rhythm; no murmurs, no clicks, no rubs, no gallops; symmetric distal pulses RESP: Normal chest excursion without splinting or tachypnea; breath sounds clear and equal bilaterally; minimal end expiratory wheezing on auscultation without any obvious rhonchi or rales. ABD/GI: Normal bowel sounds; very elevated BMI; soft, non-tender BACK: The back appears normal and is non-tender to palpation, there is no CVA tenderness EXT: Normal ROM in all joints; non-tender to palpation; no cyanosis, no effusions, 1+ bilateral tibial edema. No calf pain or unilateral leg swelling. SKIN: Normal color for age and race; warm; dry; good turgor; capillary refill < 2 seconds; no acute lesions noted NEURO: Moves all extremities equally; Motor and sensory function intact PSYCH: The patient's mood and manner are appropriate. Grooming and personal hygiene are appropriate. Course - Re-evaluation Re-evalutation: 07/26/16 17:32 Given the history and physical examination, with stable vital signs, heart rate in the 70s, and oxygen saturation at 100%, I will order basic labs, cardiac labs , x-ray of the chest, and EKG. Given the previous cultures, a blood and sputum culture has been ordered. Patient denies any and all chest pain. I believe the risk of pulmonary embolism and aortic dissection to be unlikely. 07/26/16 19:04 X-ray of the chest as recorded. Patient has a history of cardiomegaly. Patient 's BMP is actually better than it was this past recent admission. I detect no obvious infiltrates. Patient's creatinine is slightly elevated. 500 mL of normal saline has been given. Patient still is excellent oxygen saturations. 07/26/16 19:11 EKG shows a heart of 81, normal sinus rhythm, left axis deviation, PACs present , no obvious ST elevation or depression. Old EKG from 07/12/2016 shows no obvious appreciable change. Troponin appears to be at baseline for the patient. 07/26/16 19:19 I spoke with Jennifer one of the nurses who takes care of the patient. I've explained the history and physical examination as well as laboratory values. Patient is currently sleeping in the room snoring loudly satting 97% on her baseline oxygen. Patient is not tachycardic and has a stable blood pressure. I believe given the risk of nosocomial infection in this sick patient, with stable vital signs and labs as recorded above that it may benefit the patient to actually go back to the facility with strict return precautions and follow- up on the cultures. Jennifer is agreeable to this plan as is the patient. - Vital Signs Vital signs: Temp Pulse Resp BP Pulse Ox 98.2 F 80 17 130/64 H 96 07/26/16 16:05 07/26/16 16:05 07/26/16 19:00 07/26/16 17:01 07/26/16 19:00 - Laboratory Result Diagrams: 07/26/16 18:00 07/26/16 18:00 Laboratory results interpreted by me: 07/26/16 07/26/16 18:00 18:00 WBC 11.5 H Hgb 11.0 L Hct 35.6 L MCHC 30.8 L RDW 15.5 H Seg Neuts % (Manual) 79 H Band Neutrophils % 1 L Lymphocytes % (Manual) 12 L Metamyelocytes % 1 H Abs Neuts (Manual) 9.3 H Chloride 93 L Carbon Dioxide 39 H BUN 43 H Creatinine 1.41 H Est GFR ( Amer) 44 L Est GFR (Non-Af Amer) 37 L Discharge - Discharge Clinical Impression: Shortness of breath, Cough Condition: Good Disposition: HOME, SELF-CARE Additional Instructions: Please come back immediately for any return of shortness of breath, any fevers, leg swelling, vomiting, or any other acute problems. Please make sure that her primary care physician follows up on her kidney function with a creatinine today of 1.4 as well as to recheck the patient's breathing status as well as to follow-up on the blood and sputum cultures. Please feel free to send the patient back to this facility at any time for further evaluation and care.
[2016-07-26 18:28] LABS: HEMATOCRIT 35.6 % (36.0-47.0); HGB HCT DIFFERENCE -2.6; MEAN CORPUSCULAR HEMOGLOBIN 27.3 pg (27.0-33.4); MEAN CORPUSCULAR HGB CONC 30.8 g/dL (32.0-36.0); MEAN CORPUSCULAR VOLUME 89 fl (80-97); RED BLOOD COUNT 4.02 10^6/uL (3.72-5.28); RED CELL DISTRIBUTION WIDTH 15.5 % (11.5-14.0); WHITE BLOOD COUNT 11.5 10^3/uL (4.0-10.5)
[2016-07-26 18:46] LABS: ANION GAP 8 (5-19); BLOOD UREA NITROGEN 43 mg/dL (7-20); CALCIUM 9.3 mg/dL (8.4-10.2); CARBON DIOXIDE 39 mmol/L (22-30); CHLORIDE 93 mmol/L (98-107); CREATININE RESULT 1.41 mg/dL (0.52-1.25); GLUCOSE 100 mg/dL (75-110); POTASSIUM 4.9 mmol/L (3.6-5.0); SODIUM 140.1 mmol/L (137-145)
[2016-07-26 18:55] LABS: BAND NEUTROPHILS % (MANUAL) 1 % (3-5); BASOPHILS % (MANUAL) 0 % (0-2); EOSINOPHILS % (MANUAL) 0 % (0-6); LYMPHOCYTES % (MANUAL) 12 % (13-45); TOTAL CELLS COUNTED 100
[2016-07-26 18:57] LABS: ANISOCYTOSIS SLIGHT; TOXIC GRANULATION SLIGHT
[2016-07-26 19:00] LABS: TROPONIN I 0.045 ng/mL
[2016-07-26] MEDS ORDERED: NORMAL SALINE 1000 ML 500 ML IV ONE (19:05)
--- NOTE | 2016-07-26 19:21 | EKG REPORT ---
SEVERITY:- ABNORMAL ECG - SINUS RHYTHM MULTIPLE ATRIAL PREMATURE COMPLEXES LEFT ANTERIOR FASCICULAR BLOCK LEFT VENTRICULAR HYPERTROPHY : Confirmed by: Yesenia Graham MD 26-Jul-2016 19:20:39
[2016-07-27 00:01] VITALS: BP 140/84
== END 2016-07-27 00:26 | disposition home or self-care (01) ==
LOC: ER 15:55
DX: R06.02 Shortness of breath (principal); R05 Cough; R06.00 Dyspnea, unspecified; I48.91 Unspecified atrial fibrillation; I50.9 Heart failure, unspecified; I10 Essential (primary) hypertension; J45.909 Unspecified asthma, uncomplicated; J44.9 Chronic obstructive pulmonary disease, unspecified; E11.9 Type 2 diabetes mellitus without complications; Z66 Do not resuscitate; Z86.14 Personal history of Methicillin resistant Staphylococcus aureus infection; Z86.711 Personal history of pulmonary embolism; I25.2 Old myocardial infarction; Z88.2 Allergy status to sulfonamides; Z90.49 Acquired absence of other specified parts of digestive tract; Z90.710 Acquired absence of both cervix and uterus
CPT/HCPCS: 93005; 94640; 99285; 36415; 87040; 85025; 80048; 84484; 83880; 71020; 93010; A9270; J1642; J7620

== ENCOUNTER 2016-07-29 16:01 | Inpatient (IN) | payer MEDICARE, MEDICAID ==
--- NOTE | 2016-07-29 17:09 | ER Document Report ---
[id number] EVALUATION Mode of Arrival: Medic Information source: Patient, Transfer Record, Emergency Med Personnel TRAVEL OUTSIDE OF THE [place] IN LAST 30 DAYS: No - HPI Patient complains to provider of: Cough, Hurts to breath, Short of breath Onset: Other - SEVERAL DAYS Duration: Intermittent episodes Initiating Event: URI Quality of pain: Dull, Other - SORENESS Severity: Moderate Context: Hx asthma. denies: Recent cardiac event, Smoker Short of Breath: Moderate Chest pain/discomfort: Center - AND BOTH COSTAL MARGINS Cough: Productive - MINIMAL Sputum amount: Scant Sputum color: White Sputum consistency: Mucoid EMS treatments: Bronchodilators, CPAP Associated symptoms: Chest pain/discomfort, Congestion, Cough, Heart racing, Short of breath Similar symptoms previously: Yes Recently seen / treated by doctor: Yes - Related Data Allergies/Adverse Reactions: Sulfa (Sulfonamide Antibiotics) Allergy (Intermediate, Verified 07/29/16 21:27) adhesive tape Allergy (Verified 07/29/16 21:27) atorvastatin calcium [From Lipitor] Allergy (Verified 07/29/16 21:27) celecoxib [From Celebrex] Allergy (Verified 07/29/16 21:27) Past Medical History - General Information source: Patient, [facility] Records - Social History Smoking Status: Former Smoker Cigarette use (# per day): No Chew tobacco use (# tins/day): No Frequency of alcohol use: None Drug Abuse: None Lives with: [facility] Family History: Arthritis, CAD, CVA, DM, Hypertension - Past Medical History Cardiac Medical History: Reports: Hx Atrial Fibrillation, Hx Congestive Heart Failure - Diastolic dysfunction, Hx Heart Attack, Hx Hypertension - essential, Hx Pulmonary Embolism, Hx Heart Murmur Denies: Hx Coronary Artery Disease, Hx DVT, Hx Hypercholesterolemia, Hx Peripheral Vascular Disease Pulmonary Medical History: Reports: Hx Asthma, Hx Bronchitis, Hx COPD, Hx Pneumonia - Recurrent MRSA pneumonia., Hx Sleep Apnea - Uses C Pap Denies: Hx Tuberculosis Neurological Medical History: Denies: Hx Seizures Endocrine Medical History: Reports: Hx Diabetes Mellitus Type 2. Denies: Hx Diabetes Mellitus Type 1, Hx Hyperthyroidism, Hx Hypothyroidism Renal/ Medical History: Reports: Hx Renal Insufficiency GI Medical History: Reports: Hx Gastroesophageal Reflux Disease, Hx Hiatal Hernia. Denies: Hx Cirrhosis, Hx Hepatitis Musculoskeltal Medical History: Reports Hx Arthritis, Reports Hx Fibromyalgia, Reports Hx Gout, Reports Hx Muscle Weakness Skin Medical History: Denies Hx Eczema, Denies Hx Psoriasis Psychiatric Medical History: Reports: Hx Anxiety, Hx Depression Infectious Medical History: Reports: Hx MRSA. 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 - Immunizations Hx Diphtheria, Pertussis, Tetanus Vaccination: Yes Hx Pneumococcal Vaccination: 05/20/13 Review of Systems - Review of Systems Constitutional: Diaphoresis EENT: No symptoms reported Cardiovascular: See HPI Respiratory: See HPI Gastrointestinal: Nausea Genitourinary: No symptoms reported Female Genitourinary: Post menopausal Musculoskeletal: No symptoms reported Skin: No symptoms reported Neurological/Psychological: No symptoms reported Physical Exam - Vital signs Vitals: Resp Pulse Ox 16 96 07/29/16 16:16 07/29/16 16:16 Interpretation: Tachycardic - INTERMITTENTLY. No: Hypoxic, Tachypneic, Febrile - General General appearance: Alert, Anxious In distress: None - HEENT Head: Normocephalic Eyes: Normal Conjunctiva: Normal Ears: Normal Nasal: Normal Mouth/Lips: Normal Mucous membranes: Normal Pharynx: Normal Neck: Normal - Respiratory Respiratory status: No respiratory distress Chest status: Tender - COSTOCHONDRAL AND COSTAL MARGINS Breath sounds: Rales - FEW BASILAR, BILATERAL - Cardiovascular Rhythm: Regular - MOSTLY, Irregularly irregular - INTERMITTENTLY, Tachycardia - INTERMITTENTLY Heart sounds: Normal auscultation Murmur: No - Abdominal Inspection: Obese Bowel sounds: Normal Tenderness: Nontender - Extremities General upper extremity: Normal inspection General lower extremity: Edema - 1+ BILATERAL. No: Normal inspection - Neurological Neuro grossly intact: Yes Cognition: Normal Orientation: AAOx4 - Psychological Associated symptoms: Normal affect, Normal mood - Skin Skin Temperature: Warm Skin Moisture: Dry Skin Color: Normal Skin Turgor: Elastic Course - Vital Signs Vital signs: Temp Pulse Resp BP Pulse Ox 97.9 F 78 20 127/66 H 98 08/01/16 15:42 08/01/16 19:50 08/01/16 19:50 08/01/16 15:42 08/01/16 19:50 - Laboratory Result Diagrams: 08/01/16 06:00 08/01/16 06:00 Laboratory results interpreted by me: 07/29/16 07/29/1607/29/17 18:30 18:30 18:30 WBC 19.3 H MCHC 31.9 L RDW 15.7 H Seg Neuts % (Manual) 90 H Lymphocytes % (Manual) 7 L Abs Neuts (Manual) 17.4 H Chloride 93 L Carbon Dioxide 35 H BUN 40 H Creatinine 1.41 H Est GFR ( Amer) 44 L Est GFR (Non-Af Amer) 37 L POC Glucose Magnesium 2.4 H Creatine Kinase 27 L TSH Ur Leukocyte Esterase Urine Ascorbic Acid 07/29/16 07/29/16 07/29/16 18:30 21:15 21:18 WBC MCHC RDW Seg Neuts % (Manual) Lymphocytes % (Manual) Abs Neuts (Manual) Chloride Carbon Dioxide BUN Creatinine Est GFR ( Amer) Est GFR (Non-Af Amer) POC Glucose 129 H Magnesium Creatine Kinase TSH 0.15 L Ur Leukocyte Esterase MODERATE H Urine Ascorbic Acid 40 H - Diagnostic Test Radiology reviewed: Image reviewed, Reports reviewed - EKG Interpretation by Ga EKG shows normal: Sinus rhythm - WITH RUNS OF PAROXYSMAL A. FIB / RVR. Rate: Tachycardia Rhythm: NSR, A.Fib - Consults DR. HERNANDEZ Time consulted: 19:54 Reason for consultation: 07/29/16 20:03 AGREES TO ADMIT - IMCU Consulted provider: will come to ER Critical Care Note - Critical Care Note Total time excluding time spent on procedures (mins): 30 Comments: UNSTABLE VITAL SIGNS REQUIRING INTRAVENOUS MEDICATION FOR STABILIZATION. Discharge - Discharge Clinical Impression: Paroxysmal atrial fibrillation with RVR, Bronchitis, mucopurulent recurrent, Shortness of breath Condition: Fair Disposition: ADMITTED OBSERVATION Admitting Provider: Hospitalist Unit Admitted: IMCU
[2016-07-29 19:04] LABS: HEMATOCRIT 37.9 % (36.0-47.0); HEMOGLOBIN 12.1 g/dL (12.0-15.5); HGB HCT DIFFERENCE -1.6; MEAN CORPUSCULAR HEMOGLOBIN 28.1 pg (27.0-33.4); MEAN CORPUSCULAR HGB CONC 31.9 g/dL (32.0-36.0); MEAN CORPUSCULAR VOLUME 88 fl (80-97); RED BLOOD COUNT 4.31 10^6/uL (3.72-5.28); RED CELL DISTRIBUTION WIDTH 15.7 % (11.5-14.0); WHITE BLOOD COUNT 19.3 10^3/uL (4.0-10.5)
[2016-07-29 19:19] LABS: MAGNESIUM 2.4 mg/dL (1.6-2.3)
[2016-07-29 19:20] LABS: ALANINE AMINOTRANSFERASE 49 U/L (9-52); ALBUMIN 3.7 g/dL (3.5-5.0); ALKALINE PHOSPHATASE 89 U/L (38-126); ANION GAP 12 (5-19); ASPARTATE AMINO TRANSFERASE 19 U/L (14-36); BILIRUBIN,TOTAL 0.5 mg/dL (0.2-1.3); BLOOD UREA NITROGEN 40 mg/dL (7-20); CALCIUM 9.4 mg/dL (8.4-10.2); CARBON DIOXIDE 35 mmol/L (22-30); CHLORIDE 93 mmol/L (98-107); CREATININE RESULT 1.41 mg/dL (0.52-1.25); GLUCOSE 77 mg/dL (75-110); POTASSIUM 3.9 mmol/L (3.6-5.0); SODIUM 140.3 mmol/L (137-145); TOTAL PROTEIN 7.4 g/dL (6.3-8.2)
[2016-07-29 19:26] LABS: BASOPHILS % (MANUAL) 0 % (0-2); EOSINOPHILS % (MANUAL) 0 % (0-6); LYMPHOCYTES % (MANUAL) 7 % (13-45); RBC MORPHOLOGY COMMENT NORMO-CYTIC/CHROMIC; TOTAL CELLS COUNTED 100; TOXIC GRANULATION SLIGHT
[2016-07-29 19:32] LABS: CREATINE KINASE MB 1.3 ng/mL (<4.55)
[2016-07-29 19:39] LABS: TROPONIN I 0.053 ng/mL
[2016-07-29] MEDS ORDERED: DILTIAZEM HCL/D5W 125 ML IV PRN (20:00)
[2016-07-29 21:54] LABS: APPEARANCE,URINE SLIGHTLY-CLOUDY; BILIRUBIN,URINE NEGATIVE (NEGATIVE); GLUCOSE, URINE NEGATIVE (NEGATIVE); KETONES,URINE NEGATIVE (NEGATIVE); LEUKOCYTE ESTERASE,URINE MODERATE (NEGATIVE); NITRITE,URINE NEGATIVE (NEGATIVE); PROTEIN,URINE NEGATIVE (NEGATIVE); URINE SPECIFIC GRAVITY 1.015; UROBILINOGEN,URINE NEGATIVE mg/dL (<2.0)
--- NOTE | 2016-07-29 23:03 | EKG REPORT ---
SEVERITY:- ABNORMAL ECG - LEFT ANTERIOR FASCICULAR BLOCK LVH WITH SECONDARY REPOLARIZATION ABNORMALITY SVT TO SINUS RHYTHM : Confirmed by: Yesenia Graham MD 29-Jul-2016 23:02:06
[2016-07-29] MEDS ORDERED: DEXTROSE 50%-WATER 25 GM/50 ML DISP.SYRIN IV PRN ×2 (23:06)
[2016-07-29] MEDS ORDERED: GLUCAGON,HUMAN RECOMB 1 MG INJ IM PRN (23:06)
[2016-07-29] MEDS ORDERED: DEXTROSE 40% GEL 15 GM TUBE PO PRN ×2 (23:06)
[2016-07-29] MEDS ORDERED: DILTIAZEM HCL/D5W 125 MG/125 ML RTUINJ IV PRN (23:08)
[2016-07-29] MEDS ORDERED: ACETAMINOPHEN 325 MG TABLET PO PRN (23:08)
[2016-07-29] MEDS ORDERED: ALBUTEROL SULFATE 0.083% NEB 2.5 MG/3 ML AMPUL NEB PRN (23:08)
[2016-07-29] MEDS ORDERED: GENTAMICIN SULFATE 0 MG in DEXTROSE 5%-WATER 100 ML IV NR (23:15)
[2016-07-29] MEDS ORDERED: TOBRAMYCIN SULFATE INJ 80 MG/2 ML VIAL NEB SCH (23:15)
--- NOTE | 2016-07-29 23:39 | PDOC H&P ---
History of Present Illness Admission Date/PCP: 07/29/16 20:[address] Patient complains of: Difficulty breathing History of Present Illness: POSRHA WALDRON is a 71 year old obese diabetic female, with underlying asthma and 24/7 3 L per nasal cannula oxygen-dependent COPD, along with underlying obstructive sleep apnea, diabetes mellitus, and multiple other comorbidities, well known to the hospitalist service for multiple admissions for respiratory problems and/or recurrent urinary tract infections, who presents to the emergency room for evaluation of above complaint. She describes a 2 day history or so of slowly progressive difficulty breathing, subjective fever, increased cough, gradually producing more and more sputum. Hospitalized on our service the through the of this month with final diagnoses including acute on chronic respiratory failure with hypoxia and hypercapnia along with bronchiectasis, and MRSA infection, along with multiple other diagnoses. 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 Infectious diseases at [facility] was consulted. She was covered with a 10 day course of tobramycin nebulizer and intravenous gentamicin. She did make the comment that upon transfer back to [facility], she felt "the best I' ve felt in a while." No nausea vomiting diarrhea or dysuria. No abdominal pain. Occasional mild brief chest "soreness", only with a cough. Noted to be in atrial fib, with rapid ventricular response, requiring Cardizem drip, started by ER MD. Chronic indwelling Barton catheter since December of last year. CPAP daily at bedtime, with setting of "7.2." States she is due to be evaluated in the near future for possible need for BiPAP. Patient has been discussed with emergency room physician who evaluated the patient. . Laboratory results are listed in [employer] and are reviewed. X-ray summary results are listed below, with full report(s) reviewed. . EKG reviewed. And compared to July 26 of this year. Social history/personal habits: . Long-term resident of [facility]. No use of alcohol tobacco or illicit drugs. Allergies/adverse reactions are listed in [employer] and are reviewed. Home medications are reviewed from a copy of the medication administration record from her snf and are to be reconciled by nursing staff in [facility]. Home medications initially autopopulated into [employer] may not accurately reflect patient's true medications, dosages, and/or frequencies. REVIEW OF SYSTEMS: Constitutional: See history and present illness. Eyes: Wears glasses. ENT: No swallowing problems or complaints. No hearing problems or complaints. Pulmonary: See history and present illness. Cardiovascular: See history and present illness. Gastrointestinal: No current complaints, including nausea or vomiting. Skin: No current complaints, including rashes. Hematologic: Easy bruising. Neurologic: Chronic intermittent numbness and tingling of her feet area Musculoskeletal: Joint pain from arthritis. Psychiatric: Anxiety depression; denies suicidal or homicidal ideation. Endocrine: No current complaints, including polyuria. Genitourinary: No current complaints, including dysuria. PHYSICAL EXAMINATION: Neither height nor weight are recorded on the chart. Blood pressure 149/78. Pulse 107 and slightly irregular. 97% saturation on 3 L oxygen per nasal cannula. Respirations are 16 and unlabored. Temperature 99.1. Obese chronically ill-appearing female who appears perhaps a bit older than her stated age. Initially asleep, but awakens easily. Pleasant awake alert and cooperative. No obvious distress other than somewhat anxious. Skin is warm and dry. No grossly obvious evidence of rash in areas of skin examined. No subcutaneous nodules palpated. ENT: Hearing grossly normal to normal conversation. Tongue midline on protrusion pink and slightly moist. Eyes: No scleral icterus. Pupils equal and reactive to light at 4 mm. [place] conjunctivae. Neck is supple and nontender to gentle active range of motion and palpation. Midline trachea. No palpable thyroid nodule mass enlargement or tenderness. Lymphatic: No palpable cervical or clavicular nodes. Neck and lymphatic exams limited by patient body habitus. Psychiatric: Reasonable insight into acute and chronic medical issues. Oriented to time location and why here. Lungs: Auscultation reveals equal breath sounds bilaterally. No use of accessory respiratory muscles. Mild brief diffuse expiratory wheezing bilaterally. Cardiovascular: Heart slightly irregular rate and rhythm, without gallop murmur or rub. No carotid or abdominal aortic bruits. No ankle or pedal edema. Faintly palpable dorsalis pedis pulses. Abdomen: soft, obese, nontender with positive bowel sounds. Unable to adequately evaluate abdomen for masses or organomegaly due to body habitus. Extremities: Feet are warm and dry. No calf tenderness to compression. No grossly obvious visual evidence of calf swelling. Gentle manipulation of lower extremities fails to reveal any obvious evidence of injury or instability to knees hips or ankles, although chronic (per patient) quite limited range of motion at left hip due to multiple prior surgeries. Neurologic: Moves upper extremities grossly normally. Patellar reflexes absent. Absent Babinski. Light touch is intact at feet. Dorsiflexion and plantarflexion of feet 5 / 5 and symmetric. Past Medical History Cardiac Medical History: Reports: Atrial Fibrillation, Congestive Heart Failure - Diastolic dysfunction, Myocardial Infarction, Hypertension - essential, Pulmonary Embolism, Heart Murmur Denies: Coronary Artery Disease, DVT, Hyperlipidema, Peripheral Vascular Disease Pulmonary Medical History: Reports: Asthma, Bronchitis, Chronic Obstructive Pulmonary Disease (COPD), Pneumonia - Recurrent MRSA pneumonia., Sleep Apnea - Uses C Pap Denies: Tuberculosis Neurological Medical History: Denies: Seizures Endocrine Medical History: Reports: Diabetes Mellitus Type 2 Denies: Diabetes Mellitus Type 1, Hyperthyroidism, Hypothyroidism GI Medical History: Reports: Gastroesophageal Reflux Disease, Hiatal Hernia Denies: Cirrhosis, Hepatitis Musculoskeltal Medical History: Reports: Arthritis, Fibromyalgia, Gout Skin Medical History: Denies: Eczema, Psoriasis Psychiatric Medical History: Reports: Depression Hematology: Reports: Anemia Infectious Medical History: Reports: Methicillin-Resistant Staph Aureus Past Surgical History Past Surgical History: Reports: Appendectomy, Cholecystectomy, Hysterectomy, Orthopedic Surgery - Multiple left hip procedures, 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 Social History Information Source: Patient, Emergency Med Personnel, [facility] Records Lives with: Long Term Smoking Status: Unknown if Ever Smoked Frequency of Alcohol Use: None Hx Recreational Drug Use: No Drugs: None Hx Prescription Drug Abuse: No - Advance Directive Resuscitation Status: Do Not Resuscitate - Portable document snf, as has been the case in the past, and confirmed by ER nurses. Will follow this directive. Surrogate healthcare decision maker:: Her niece Lida Cowart Family History Family History: Arthritis, CAD, CVA, DM, Hypertension Parental Family History Reviewed: Yes Children Family History Reviewed: Yes Sibling(s) Family History Reviewed.: Yes Medication/Allergy Home Medications: Fluticasone Propionate [Flonase Nasal [place] 50 Mcg/[place] 16 gm] 2 spray IH Q12 04/02/15 Olopatadine HCl [Patanol 0.1% Oph Soln 5 ml] 1 drop BTH_EYE DAILY 04/02/15 Tiotropium [place] [Spiriva Handihaler 18 mcg/dose (30 Dose)] 1 cap IH DAILY 09/12 Sennosides/Docusate 8.6-50 mg [Senna Plus Tablet] 1 each PO BID #60 tablet 04/06 Apixaban [Eliquis 2.5 mg Tablet] 2.5 mg PO BID 09/09/15 Cetirizine HCl [Zyrtec 10 mg Tablet] 10 mg PO QHS 09/09/15 Montelukast Sodium [Singulair 10 mg Tablet] 10 mg PO DAILY 09/09/15 Amlodipine Besylate [Norvasc 5 mg Tablet] 5 mg PO DAILY 11/07/15 Polyethylene Glycol 3350 [Miralax Powder 17 gm/Packet] 1 packet PO BID 11/07/15 Simethicone [Gas-X] 80 mg PO DAILYP PRN 11/07/15 Melatonin 5 mg PO QHS 11/13/15 Ascorbic Acid [Vitamin C 500 mg Tablet] 500 mg PO BID 01/05/16 Clonidine HCl [Catapres 0.2 mg Tablet] 0.2 mg PO Q12 01/05/16 Duloxetine HCl [Cymbalta] 90 mg PO DAILY 01/05/16 Ferrous Sulfate [Feosol] 325 mg PO BID 01/05/16 Saccharomyces Boulardii [Florastor] 250 mg PO BID 01/05/16 Budesonide [Pulmicort Neb 0.5 mg/2 ml Ampul] 0.5 mg NEB RTQ12 ampul.neb Bupropion HCl [Wellbutrin 75 mg Tablet] 75 mg PO DAILY tablet 01/10/16 Albuterol Sulfate [Ventolin 0.083% Neb 2.5 mg/3 mL Ampul] 2.5 mg NEB RTQ6 PRN Ipratropium [place] [Atrovent 0.06% Nasal [place]] 1 spray NASL BID 02/12/16 Potassium Chloride [Klor-Con 10 Meq Tablet.sa] 20 meq PO Q12 tablet.sa Hydrocortisone Acetate [Hydrocortisone] 1 applic TOP Q8 04/18/16 Mag Oxide/D3/Turmeric Rt Xt [Magnesium-Vit D3-Turmeric Cap] 400 mg PO BID Menthol [Biofreeze] 1 applic TP Q8HP PRN 04/18/16 Baclofen [Baclofen 10 mg Tablet] 10 mg PO TID #20 tablet 04/23/16 Lidocaine [Lidoderm 5% (700 mg) Transdermal Patch] 3 patch TP DAILY #7 adh..patch 04/23/16 Fentanyl [Duragesic 50 Mcg/Hr Transdermal Patch] 1 each TD Q3DAYS #2 patch.td72 05/18/16 Cranberry [Cranberry 400 mg Capsule] 1 tab PO BID 06/10/16 Gabapentin 300 mg PO TID 06/10/16 Omeprazole Magnesium [Prilosec Otc] 20 mg PO QAM 06/10/16 Furosemide [Lasix 40 mg Tablet] 40 mg PO BID tablet 06/15/16 Guaifenesin [Mucinex Sr 600 mg Tablet.sa] 1,200 mg PO Q12 tablet.sa 06/15/16 Pregabalin [Lyrica 100 mg Capsule] 100 mg PO TID #90 capsule 06/15/16 Glipizide [Glucotrol 10 mg Tablet] 10 mg PO BIDBS tablet 06/16/16 Insulin Glargine,Hum.rec.anlog [Lantus] 20 unit SQ QAM #1 vial 06/16/16 Metformin HCl 500 mg PO BID #60 tablet 06/16/16 Prednisone [Deltasone 20 mg Tablet] 30 mg PO BID tablet 06/16/16 Sitagliptin Phosphate [Januvia 50 mg Tablet] 50 mg PO BIDACBS tablet 06/16/16 Acetaminophen [Tylenol 325 mg Tablet] 650 mg PO Q4HP PRN 07/12/16 Alprazolam [Xanax 0.25 mg Tablet] 0.25 mg PO TID #15 tablet 07/23/16 Benzonatate [Tessalon Perles 100 mg Capsule] 200 mg PO Q8 capsule 07/23/16 Diltiazem HCl [Cardizem 60 mg Tablet] 60 mg PO Q6 tablet 07/23/16 Magnesium Hydroxide [Milk of Magnesia 30 ml Udcup] 30 ml PO Q6HP PRN udc Na Phos,M-B/Na Phos,Di-Ba [Fleet Enema (Adult) 133 ml] 133 ml DC DAILYP PRN enema 07/23/16 Oxycodone HCl [Oxycodone HCl 10 MG Tablet] 10 mg PO Q6 #20 tablet 07/23/16 Allergies/Adverse Reactions: Sulfa (Sulfonamide Antibiotics) Allergy (Intermediate, Verified 07/29/16 21:27) adhesive tape Allergy (Verified 07/29/16 21:27) atorvastatin calcium [From Lipitor] Allergy (Verified 07/29/16 21:27) celecoxib [From Celebrex] Allergy (Verified 07/29/16 21:27) Physical Exam Vital Signs: Temp Pulse Resp BP Pulse Ox 99.1 F 15 149/78 H 96 07/29/16 21:17 07/29/16 22:01 07/29/16 22:01 07/29/16 22:01 Results Laboratory Results: 07/29/16 21:18 Urine Color YELLOW Urine Appearance SLIGHTLY-CLOUDY Urine pH 5.0 Ur Specific [place] 1.015 Urine Protein NEGATIVE Urine Glucose (UA) NEGATIVE Urine Ketones NEGATIVE Urine Blood NEGATIVE Urine Nitrite NEGATIVE Ur Leukocyte Esterase MODERATE H Urine WBC (Auto) 49 Urine RBC (Auto) 6 Impressions: Chest X-Ray 07/29/16 17:21 IMPRESSION: Minimal lingular atelectasis. Assessment & Plan - Diagnosis (1) Asthma exacerbation Is this a current diagnosis for this admission?: Yes (2) COPD exacerbation Is this a current diagnosis for this admission?: YesPlan: Patient will be admitted under COPD exacerbation asthma and pneumonia protocol. Incentive spirometry twice a day. Scheduled DuoNeb's. PRN albuterol nebs daily prednisone. Prevacid for gastritis prophylaxis. Antibiotics will consist of intravenous gentamicin; tobramycin nebs also, from review of her recent transfer summary. Pharmacy to assist with gentamicin dosing.. Knee high SCDs for DVT prophylaxis; with patient on Eliquis, no need for Lovenox or heparin. Impression and plans were discussed with patient, who concurs. Time spent in evaluation and management of patient: 80 minutes. (3) Paroxysmal atrial fibrillation with RVR Is this a current diagnosis for this admission?: YesPlan: Continue current Cardizem drip, to be titrated as tolerated. Serial troponins. (4) UTI (urinary tract infection) Qualifiers: Urinary tract infection type: site unspecified Is this a current diagnosis for this admission?: YesPlan: Blood and urine cultures have been ordered. (5) Pneumonia involving left lung Qualifiers: Pneumonia type: due to unspecified organism Lung location: upper lobe of lung Qualified Code(s): J18.1 - Lobar pneumonia, unspecified organism Is this a current diagnosis for this admission?: Yes (6) History of MRSA infection Is this a current diagnosis for this admission?: YesPlan: Contact precautions. (7) CKD (chronic kidney disease), stage III Is this a current diagnosis for this admission?: Yes (8) Do not resuscitate Is this a current diagnosis for this admission?: Yes (9) Obstructive sleep apnea Is this a current diagnosis for this admission?: YesPlan: Daily at bedtime CPAP. - Inpatient Certification Based on my medical assessment, after consideration of the patient's comorbidities, presenting symptoms, or acuity I expect that the services needed warrant INPATIENT care.: Yes I certify that my determination is in accordance with my understanding of Medicare's requirements for reasonable and necessary INPATIENT services [42 CFR 412.3e].: Yes Medical Necessity: Significant Comorbidiites Make Outpatient Treatment Too Risky , Need Close Monitoring Due to Risk of Patient Decompensation, Need For Continuous Telemetry Monitoring, Need for Nebulizer Therapy and Monitoring of Response, Need for IV Antibiotics, Risk of Diagnosis Which Will Require Inpatient Eval/Care/Monitoring Post Hospital Care: D/C or Transfer Summary
[2016-07-30] MEDS ORDERED: NORMAL SALINE IV ONE (00:15)
[2016-07-30] MEDS ORDERED: GENTAMICIN SULFATE IV ONE (00:15)
[2016-07-30] MEDS ORDERED: PREDNISONE 20 MG TABLET PO ONE (01:45)
[2016-07-30] MEDS ORDERED: GENTAMICIN SULFATE INJ 80 MG/2 ML VIAL ONE ×2 (01:48→02:21)
[2016-07-30 02:29] LABS: VENOUS BLOOD BASE EXCESS 8.8 mmol/L; VENOUS BLOOD HCO3 35.8 mmol/L (20-32); VENOUS BLOOD PCO2 60.4 mmHg (35-63); VENOUS BLOOD PH 7.39 (7.30-7.42)
[2016-07-30] MEDS ORDERED: LANSOPRAZOLE 30 MG TAB.RAP.DR PO SCH (06:00)
[2016-07-30 07:39] LABS: HEMATOCRIT 35.7 % (36.0-47.0); HEMOGLOBIN 11.6 g/dL (12.0-15.5); HGB HCT DIFFERENCE -0.9; MEAN CORPUSCULAR HEMOGLOBIN 28.3 pg (27.0-33.4); MEAN CORPUSCULAR HGB CONC 32.6 g/dL (32.0-36.0); MEAN CORPUSCULAR VOLUME 87 fl (80-97); RED BLOOD COUNT 4.12 10^6/uL (3.72-5.28); RED CELL DISTRIBUTION WIDTH 15.4 % (11.5-14.0); WHITE BLOOD COUNT 15.3 10^3/uL (4.0-10.5)
[2016-07-30] MEDS ORDERED: ALBUTEROL SULFATE 0.083% NEB 2.5 MG/3 ML AMPUL NEB PRN (07:48)
[2016-07-30 07:51] LABS: ANION GAP 7 (5-19); BLOOD UREA NITROGEN 33 mg/dL (7-20); CALCIUM 9.1 mg/dL (8.4-10.2); CARBON DIOXIDE 37 mmol/L (22-30); CHLORIDE 95 mmol/L (98-107); CREATININE RESULT 1.07 mg/dL (0.52-1.25); GLUCOSE 146 mg/dL (75-110); POTASSIUM 3.7 mmol/L (3.6-5.0); SODIUM 139.3 mmol/L (137-145)
[2016-07-30 08:05] LABS: BASOPHILS % (MANUAL) 0 % (0-2); EOSINOPHILS % (MANUAL) 1 % (0-6); LYMPHOCYTES % (MANUAL) 1 % (13-45); TOTAL CELLS COUNTED 100
[2016-07-30 08:06] LABS: ANISOCYTOSIS SLIGHT; TOXIC GRANULATION SLIGHT
[2016-07-30] MEDS ORDERED: BENZONATATE 100 MG CAPSULE PO PRN (08:13)
[2016-07-30] MEDS ORDERED: (PENDING PHARMACY ID) (Oxycodone Hcl [Oxycodone Hcl 10 Mg Tablet] 5 MG) PO PRN (08:13)
[2016-07-30] MEDS: IPRATROPIUM/ALBUTEROL 0.5-2.5 MG/3 ML AMPUL NEB SCH ×3 (08:30→19:58)
[2016-07-30] MEDS ORDERED: MORPHINE SULFATE 10 MG/ML INJ IV ONE (09:00)
[2016-07-30] MEDS ORDERED: GLIPIZIDE 10 MG TABLET PO ONE (09:00)
[2016-07-30] MEDS ORDERED: INSULIN GLARGINE,HUM.REC.ANLOG 1,000 UNIT/10 ML UNIT SUBCUT ONE (09:00)
[2016-07-30] MEDS ORDERED: NA PHOS,M-B/NA PHOS,DI-BA (ADULT) 133 ML ENEMA PR PRN (09:13)
[2016-07-30] MEDS ORDERED: ACETAMINOPHEN 325 MG TABLET PO PRN (09:13)
[2016-07-30] MEDS ORDERED: MORPHINE SULFATE 10 MG/ML INJ IV PRN (09:16)
--- NOTE | 2016-07-30 09:25 | PDOC PROGRESS REPORT ---
Subjective Progress Note for:: 07/30/16 Subjective:: Patient is complaining of severe pain pains all over in her back and hips and especially in the left calf that she says is now swollen and extremely painful. Her breathing is better She's had no fever no chills no abdominal pain nausea vomiting She is still in atrial fibrillation with better controlled vent ventricular rate on Cardizem drip Physical Exam Vital Signs: Temp Pulse Resp BP Pulse Ox 98.5 F 90 20 167/73 H 99 07/30/16 07:07 07/30/16 08:44 07/30/16 08:44 07/30/16 09:02 07/30/16 08:44 Intake & Output 07/29/16 07/30/16 07/31/16 00:59 00:59 00:59 Intake Total 0 183 Output Total 0 0 Balance 0 183 Weight 101.2 kg 101.2 kg General appearance: PRESENT: mild distress, obese Head exam: PRESENT: atraumatic, normocephalic Eye exam: PRESENT: conjunctiva pink, EOMI, PERRLA. ABSENT: scleral icterus Neck exam: ABSENT: carotid bruit, JVD, lymphadenopathy, thyromegaly Respiratory exam: PRESENT: decreased breath sounds - Bilaterally, wheezes - Bilaterally. ABSENT: accessory muscle use, prolonged expiratory phas Cardiovascular exam: PRESENT: irregular rhythm, tachycardia. ABSENT: diastolic murmur, rubs, systolic murmur GI/Abdominal exam: PRESENT: normal bowel sounds, soft. ABSENT: distended, guarding, mass, organolmegaly, rebound, tenderness Extremities exam: PRESENT: other - Left lower extremity 2+ edema the calf is tender and swollen Neurological exam: PRESENT: alert, awake, oriented to person, oriented to place , oriented to time, oriented to situation, CN II-XII grossly intact. ABSENT: motor sensory deficit Results Laboratory Results: 07/30/16 06:45 07/30/16 06:45 07/30/16 07/30/16 07/30/16 02:20 06:45 06:45 WBC 15.3 H RBC 4.12 Hgb 11.6 L Hct 35.7 L MCV 87 MCH 28.3 MCHC 32.6 RDW 15.4 H Plt Count 174 Seg Neutrophils % Not Reportable Lymphocytes % Not Reportable Monocytes % Not Reportable Eosinophils % Not Reportable Basophils % Not Reportable Absolute Neutrophils Not Reportable Absolute Lymphocytes Not Reportable Absolute Monocytes Not Reportable Absolute Eosinophils Not Reportable Absolute Basophils Not Reportable VBG pH 7.39 VBG pCO2 60.4 VBG HCO3 35.8 H VBG Base Excess 8.8 Sodium 139.3 Potassium 3.7 Chloride 95 L Carbon Dioxide 37 H Anion Gap 7 BUN 33 H Creatinine 1.07 Est GFR ( Amer) > 60 Est GFR (Non-Af Amer) 50 L Glucose 146 H Calcium 9.1 07/30/16 07/30/16 00:45 06:45 Troponin I 0.051 0.047 Impressions: Chest X-Ray 07/29/16 17:21 IMPRESSION: Minimal lingular atelectasis. Assessment & Plan - Diagnosis (1) Bronchitis, mucopurulent recurrent Is this a current diagnosis for this admission?: YesPlan: Patient had a culture of the sputum is positive for MRSA and Klebsiella during the last admission Patient had improved with the gentamicin IV and tobramycin nebs which were continued during this admission (2) COPD exacerbation Is this a current diagnosis for this admission?: YesPlan: Patient has had multiple admissions in the past She is responding to steroids and antibiotics (3) Paroxysmal atrial fibrillation with RVR Is this a current diagnosis for this admission?: YesPlan: We will increase Cardizem by mouth and wean off the Cardizem drip Patient is chronically anticoagulated on Eliquis (4) UTI (urinary tract infection) Qualifiers: Urinary tract infection type: site unspecified Is this a current diagnosis for this admission?: YesPlan: Urine analysis is positive for leukocytes Cultures pending (5) Acute on chronic respiratory failure with hypoxia and hypercapnia Is this a current diagnosis for this admission?: YesPlan: Secondary to acute on chronic COPD Continue O2 supplementation (7) CKD (chronic kidney disease), stage III Is this a current diagnosis for this admission?: Yes (8) Opiate dependence, continuous Is this a current diagnosis for this admission?: YesPlan: Patient is complaining of severe pain and was crying earlier We did order intermittent doses of morphine Continue other opiates (9) Swelling of left lower extremity Is this a current diagnosis for this admission?: YesPlan: DVT study is pending Noted that patient is chronically anticoagulated on Eliquis 2.5 mg twice a day - Time Time Spent with patient: 35 or more minutes
[2016-07-30] MEDS: BUDESONIDE NEB 0.5 MG/2 ML AMPUL NEB SCH ×2 (09:31→19:58)
[2016-07-30] MEDS: TOBRAMYCIN SULFATE NEB 40 MG/ML 30 ML NEB SCH ×2 (09:46→19:57)
[2016-07-30] MEDS ORDERED: MAG OXIDE PO SCH (10:00)
[2016-07-30] MEDS ORDERED: HEPARIN SOD (PORCINE) 5,000 UNIT/ML 1 ML SYRINGE SUBCUT SCH (10:00)
[2016-07-30] MEDS ORDERED: D3 PO SCH (10:00)
[2016-07-30] MEDS ORDERED: TURMERIC RT XT PO SCH (10:00)
[2016-07-30] MEDS ORDERED: DULOXETINE HCL 90 MG PO SCH (10:00)
[2016-07-30] MEDS ORDERED: [UNRECOGNIZED DRUG - OTHER] PO SCH (10:00)
[2016-07-30] MEDS ORDERED: AMLODIPINE BESYLATE 5 MG TABLET PO SCH (10:00)
[2016-07-30] MEDS ORDERED: (PENDING PHARMACY ID) (Saccharomyces Boulardii [Florastor] 250 MG) PO SCH (10:00)
[2016-07-30] MEDS: INSULIN GLARGINE,HUM.REC.ANLOG 300 UNIT/3 ML INSULN.PEN SUBCUT SCH (11:38)
[2016-07-30] MEDS: INSULIN LISPRO 100 UNIT/ML 3 ML VIAL SUBCUT PRN ×2 (11:38→18:12)
[2016-07-30] MEDS: OLOPATADINE HCL 0.1% OPH SOLN 5 ML OU SCH (11:39)
[2016-07-30] MEDS: LIDOCAINE 5% (700 MG) TRANSDERMAL ADH..PATCH TP SCH (11:39)
[2016-07-30] MEDS: TIOTROPIUM BROMIDE DPI 5 CAP/KIT (18 MCG/CAP) IH SCH (11:40)
[2016-07-30] MEDS: FLUTICASONE NASAL SPRAY 50 MCG/SPRY 120 SPRAY/16 GM NASL SCH (11:41)
[2016-07-30] MEDS: IPRATROPIUM BROMIDE 0.06% NASAL SPRAY 15 ML NASL SCH ×2 (11:42→18:15)
[2016-07-30] MEDS: SITAGLIPTIN PHOSPHATE 25 MG TABLET PO SCH (11:44)
[2016-07-30] MEDS: POLYETHYLENE GLYCOL 3350 POWDER 17 GM/1 PACKET PO SCH ×2 (11:44→18:15)
[2016-07-30] MEDS: MAGNESIUM HYDROXIDE SUSP 30 ML UDCUP PO PRN (11:45)
[2016-07-30] MEDS: FENTANYL 50 MCG/HR PATCH.TD72 TD SCH (11:46)
[2016-07-30] MEDS: BACLOFEN 10 MG TABLET PO SCH ×2 (11:47→18:14)
[2016-07-30] MEDS: POTASSIUM CHLORIDE 10 MEQ TABLET.SA PO SCH ×2 (11:47→23:02)
[2016-07-30] MEDS: OXYCODONE HCL IR 5 MG TABLET PO PRN (11:48)
[2016-07-30] MEDS: APIXABAN 2.5 MG TABLET PO SCH ×2 (11:48→23:03)
[2016-07-30] MEDS: FERROUS SULFATE 325 MG TABLET PO SCH ×2 (11:49→18:14)
[2016-07-30] MEDS: GABAPENTIN 300 MG CAPSULE PO SCH ×2 (11:49→18:14)
[2016-07-30] MEDS: PREDNISONE 20 MG TABLET PO SCH (11:50)
[2016-07-30] MEDS: DILTIAZEM HCL 240 MG CAPSULE.CR PO SCH ×2 (11:50→23:03)
[2016-07-30] MEDS: GUAIFENESIN 600 MG TABLET.SA PO SCH ×2 (11:51→23:02)
[2016-07-30] MEDS: MAGNESIUM OXIDE 400 MG TABLET PO SCH ×2 (11:51→18:13)
[2016-07-30] MEDS: DULOXETINE HCL 30 MG CAPSULE.DR PO SCH (11:52)
[2016-07-30] MEDS: FUROSEMIDE 40 MG TABLET PO SCH ×2 (11:52→18:13)
[2016-07-30] MEDS: PREGABALIN 100 MG CAPSULE PO SCH (11:54)
[2016-07-30] MEDS: LACTOBACILLUS ACIDOPHILUS 250 MG TAB PO SCH ×2 (11:55→18:14)
[2016-07-30] MEDS: CLONIDINE HCL 0.2 MG TABLET PO SCH ×2 (11:55→23:04)
[2016-07-30] MEDS: ASCORBIC ACID 500 MG TABLET PO SCH ×2 (11:55→18:14)
[2016-07-30] MEDS: SENNOSIDES/DOCUSATE 8.6-50 MG 1 EACH TABLET PO SCH ×2 (11:56→18:13)
[2016-07-30] MEDS: BUPROPION HCL 75 MG TABLET PO SCH (11:56)
[2016-07-30] MEDS: METFORMIN HCL 500 MG TABLET PO SCH ×2 (11:57→18:14)
[2016-07-30] MEDS ORDERED: DILTIAZEM HCL 60 MG TABLET PO SCH (12:00)
[2016-07-30 12:36] LABS: VENOUS BLOOD BASE EXCESS 5.7 mmol/L; VENOUS BLOOD HCO3 33.2 mmol/L (20-32); VENOUS BLOOD PCO2 61.6 mmHg (35-63); VENOUS BLOOD PH 7.35 (7.30-7.42)
[2016-07-30] MEDS ORDERED: HYDROCORTISONE ACETATE TOP SCH (14:00)
[2016-07-30] MEDS: HYDROCORTISONE 0.5% CREAM 28.35 GM TP SCH ×2 (15:18→23:05)
--- NOTE | 2016-07-30 15:48 | XCELERA REPORT ---
[address] [address] Lower Extremity Venous Evaluation Name: PORSHA WALDRON Age: 71 yrs Gender: Female : 1945 Patient Status: Inpatient Patient Location: [id number] Study Date: 07/30/2016 11:39 AM Procedure: Color flow and duplex imaging of the veins of the left lower extremity as well as the right Common Femoral vein. Reason For Study: LLE swollen painful Ordering Physician: CRYS DANIEL Performed By: Joaquim Tavarez Right Sided Venous Evaluation The right common femoral vein is fully compressible. Spontaneous and phasic flow is present in the right common femoral vein. Left Sided Venous Evaluation Normal vessel filling wall to wall, compression and augmentation as well as Colour flow down to the infrageniculate veins. Interpretation Summary No duplex evidence of DVT or obstruction in the left lower extremity nor in the right Common Femoral vein. : CRYS DANIEL > Rivas Triplett
[2016-07-30] MEDS ORDERED: (PENDING PHARMACY ID) (Melatonin [Melatonin] 5 MG) PO SCH (22:00)
[2016-07-30] MEDS: PHARMACY COMMUNICATION ORDER MC SCH (23:00)
[2016-07-30] MEDS: MONTELUKAST SODIUM 10 MG TABLET PO SCH (23:04)
[2016-07-30] MEDS: CETIRIZINE 5 MG TABLET PO SCH (23:04)
[2016-07-31] MEDS: ALPRAZOLAM 0.25 MG TABLET PO PRN ×2 (00:11→22:54)
[2016-07-31] MEDS: OXYCODONE HCL IR 5 MG TABLET PO PRN ×4 (00:12→23:50)
[2016-07-31] MEDS: INSULIN LISPRO 100 UNIT/ML 3 ML VIAL SUBCUT PRN ×2 (00:14→22:45)
[2016-07-31] MEDS: GENTAMICIN SULFATE 160 MG in DEXTROSE 5%-WATER 100 ML IV SCH (06:15)
[2016-07-31] MEDS: LANSOPRAZOLE 15 MG TAB.RAP.DR PO SCH (06:15)
[2016-07-31] MEDS: HYDROCORTISONE 0.5% CREAM 28.35 GM TP SCH ×3 (06:22→23:06)
--- NOTE | 2016-07-31 09:56 | PDOC PROGRESS REPORT ---
Subjective Progress Note for:: 07/31/16 Subjective:: Patient is complaining of recurrent vomiting after she eats And indeed she did vomit yesterday Patient states she has dysphagia for solids No chest pains No heartburn Dysphasia has been going on for 3-4 weeks On the monitor patient is now in normal sinus rhythm with APCs Physical Exam Vital Signs: Temp Pulse Resp BP Pulse Ox 98.2 F 86 22 H 125/65 100 07/31/16 03:14 07/31/16 07:00 07/31/16 03:14 07/31/16 03:14 07/31/16 06:40 Intake & Output 07/30/16 07/31/16 08/01/16 00:59 00:59 00:59 Intake Total 0 1561 330 Output Total 0 3400 560 Balance 0 -1839 -230 Weight 101.2 kg 101.2 kg General appearance: PRESENT: no acute distress, well-developed, well-nourished Head exam: PRESENT: atraumatic, normocephalic Eye exam: PRESENT: conjunctiva pink, EOMI, PERRLA. ABSENT: scleral icterus Ear exam: PRESENT: normal external ear exam Mouth exam: PRESENT: moist, tongue midline Neck exam: ABSENT: carotid bruit, JVD, lymphadenopathy, thyromegaly Respiratory exam: PRESENT: decreased breath sounds, wheezes. ABSENT: rales, rhonchi Cardiovascular exam: PRESENT: RRR. ABSENT: diastolic murmur, rubs, systolic murmur Pulses: PRESENT: normal dorsalis pedis pul Vascular exam: PRESENT: normal capillary refill GI/Abdominal exam: PRESENT: normal bowel sounds, soft. ABSENT: distended, guarding, mass, organolmegaly, rebound, tenderness Rectal exam: PRESENT: deferred Extremities exam: PRESENT: full ROM. ABSENT: calf tenderness, clubbing, pedal edema Neurological exam: PRESENT: alert, awake, oriented to person, oriented to place , oriented to time, oriented to situation, CN II-XII grossly intact. ABSENT: motor sensory deficit Psychiatric exam: PRESENT: appropriate affect, normal mood. ABSENT: homicidal ideation, suicidal ideation Skin exam: PRESENT: dry, intact, warm. ABSENT: cyanosis, rash Results Laboratory Results: 07/30/16 06:45 07/30/16 06:45 07/30/16 12:23 VBG pH 7.35 VBG pCO2 61.6 VBG HCO3 33.2 H VBG Base Excess 5.7 07/30/16 07/30/16 00:45 06:45 Troponin I 0.051 0.047 Impressions: Chest X-Ray 07/29/16 17:21 IMPRESSION: Minimal lingular atelectasis. Assessment & Plan - Diagnosis (1) Bronchitis, mucopurulent recurrent Is this a current diagnosis for this admission?: Yes (2) COPD exacerbation Is this a current diagnosis for this admission?: Yes (3) Paroxysmal atrial fibrillation with RVR Is this a current diagnosis for this admission?: YesPlan: Patient is now in normal sinus rhythm with APCs ;we have increase Cardizem CD to 240 mg by mouth every 12 Cardizem drip has been discontinued (4) UTI (urinary tract infection) Qualifiers: Urinary tract infection type: site unspecified Is this a current diagnosis for this admission?: Yes (5) Acute on chronic respiratory failure with hypoxia and hypercapnia Is this a current diagnosis for this admission?: Yes (7) CKD (chronic kidney disease), stage III Is this a current diagnosis for this admission?: Yes (8) Opiate dependence, continuous Is this a current diagnosis for this admission?: Yes (9) Swelling of left lower extremity Is this a current diagnosis for this admission?: YesPlan: There was no evidence of DVT Edema likely secondary to venous stasis We will apply teds (10) Dysphagia Qualifiers: Dysphagia type: unspecified Qualified Code(s): R13.10 - Dysphagia, unspecified Is this a current diagnosis for this admission?: YesPlan: Unfortunately patient is not a candidate for EGD because of the respiratory status We will schedule the patient for barium swallow in a.m. Protonix IV will be prescribed Dysphagia may be secondary to stricture secondary to reflux esophagitis Patient may also have gastroparesis secondary to diabetes - Time Time Spent with patient: 35 or more minutes - Patient's condition is overall improved Noted also that she had mild renal dysfunction on admission; and the creatinine has improved after hydration
[2016-07-31] MEDS: BUDESONIDE NEB 0.5 MG/2 ML AMPUL NEB SCH ×2 (10:09→20:39)
[2016-07-31] MEDS: TOBRAMYCIN SULFATE NEB 40 MG/ML 30 ML NEB SCH ×2 (10:09→20:39)
[2016-07-31] MEDS: IPRATROPIUM/ALBUTEROL 0.5-2.5 MG/3 ML AMPUL NEB SCH ×3 (10:09→20:39)
[2016-07-31] MEDS ORDERED: HEPARIN SOD (PORCINE) 1 UNIT/ML PF 3 ML SYRINGE IV PRN (10:32)
[2016-07-31] MEDS: FERROUS SULFATE 325 MG TABLET PO SCH ×2 (11:33→18:26)
[2016-07-31] MEDS: LACTOBACILLUS ACIDOPHILUS 250 MG TAB PO SCH ×2 (11:34→18:26)
[2016-07-31] MEDS: GLIPIZIDE 10 MG TABLET PO SCH (11:34)
[2016-07-31] MEDS: MAGNESIUM OXIDE 400 MG TABLET PO SCH ×2 (11:34→18:26)
[2016-07-31] MEDS: DILTIAZEM HCL 240 MG CAPSULE.CR PO SCH ×2 (11:35→22:56)
[2016-07-31] MEDS: GUAIFENESIN 600 MG TABLET.SA PO SCH ×2 (11:36→22:55)
[2016-07-31] MEDS: PREDNISONE 20 MG TABLET PO SCH (11:37)
[2016-07-31] MEDS: DULOXETINE HCL 30 MG CAPSULE.DR PO SCH (11:38)
[2016-07-31] MEDS: PREGABALIN 100 MG CAPSULE PO SCH (11:38)
[2016-07-31] MEDS: ASCORBIC ACID 500 MG TABLET PO SCH ×2 (11:39→18:25)
[2016-07-31] MEDS: SENNOSIDES/DOCUSATE 8.6-50 MG 1 EACH TABLET PO SCH ×2 (11:39→18:27)
[2016-07-31] MEDS: GABAPENTIN 300 MG CAPSULE PO SCH ×2 (11:39→18:27)
[2016-07-31] MEDS: POTASSIUM CHLORIDE 10 MEQ TABLET.SA PO SCH ×2 (11:40→22:54)
[2016-07-31] MEDS: CLONIDINE HCL 0.2 MG TABLET PO SCH ×2 (11:40→22:53)
[2016-07-31] MEDS: BUPROPION HCL 75 MG TABLET PO SCH (11:41)
[2016-07-31] MEDS: APIXABAN 2.5 MG TABLET PO SCH ×2 (11:42→22:54)
[2016-07-31] MEDS: FUROSEMIDE 40 MG TABLET PO SCH ×2 (11:42→18:27)
[2016-07-31] MEDS: BACLOFEN 10 MG TABLET PO SCH ×2 (11:43→18:25)
[2016-07-31] MEDS: METFORMIN HCL 500 MG TABLET PO SCH ×2 (11:43→18:25)
[2016-07-31] MEDS: TIOTROPIUM BROMIDE DPI 5 CAP/KIT (18 MCG/CAP) IH SCH (11:44)
[2016-07-31] MEDS: PANTOPRAZOLE SODIUM 40 MG VIAL IV SCH ×2 (11:44→22:58)
[2016-07-31] MEDS: OLOPATADINE HCL 0.1% OPH SOLN 5 ML OU SCH (11:46)
[2016-07-31] MEDS: IPRATROPIUM BROMIDE 0.06% NASAL SPRAY 15 ML NASL SCH ×2 (11:47→18:28)
[2016-07-31] MEDS: POLYETHYLENE GLYCOL 3350 POWDER 17 GM/1 PACKET PO SCH ×2 (11:47→18:29)
[2016-07-31] MEDS: FLUTICASONE NASAL SPRAY 50 MCG/SPRY 120 SPRAY/16 GM NASL SCH (11:48)
[2016-07-31] MEDS: SITAGLIPTIN PHOSPHATE 25 MG TABLET PO SCH (11:49)
[2016-07-31] MEDS: LIDOCAINE 5% (700 MG) TRANSDERMAL ADH..PATCH TP SCH (11:49)
[2016-07-31] MEDS: PHARMACY COMMUNICATION ORDER MC SCH (22:45)
[2016-07-31] MEDS: MONTELUKAST SODIUM 10 MG TABLET PO SCH (22:52)
[2016-07-31] MEDS: CETIRIZINE 5 MG TABLET PO SCH (22:56)
[2016-07-31] MEDS: LACTULOSE SYRUP 20 GM/30 ML UDCUP PO SCH (22:57)
[2016-08-01] MEDS: GENTAMICIN SULFATE 160 MG in DEXTROSE 5%-WATER 100 ML IV SCH (05:54)
[2016-08-01] MEDS: OXYCODONE HCL IR 5 MG TABLET PO PRN ×3 (05:54→22:23)
[2016-08-01] MEDS: LANSOPRAZOLE 15 MG TAB.RAP.DR PO SCH (05:54)
[2016-08-01] MEDS: HYDROCORTISONE 0.5% CREAM 28.35 GM TP SCH ×2 (06:04→14:50)
[2016-08-01 06:36] LABS: ABSOLUTE MONOCYTES (AUTO) 0.9 10^3/uL (0.1-1.4); BASOPHILS % (AUTO) 0.1 % (0-2); EOSINOPHILS % (AUTO) 0.2 % (0-6); HEMATOCRIT 35.5 % (36.0-47.0); HEMOGLOBIN 11.7 g/dL (12.0-15.5); HGB HCT DIFFERENCE -0.4; LYMPHOCYTES % (AUTO) 9.1 % (13-45); MEAN CORPUSCULAR HEMOGLOBIN 28.9 pg (27.0-33.4); MEAN CORPUSCULAR VOLUME 88 fl (80-97); MONOCYTES % (AUTO) 8.5 % (3-13); RED BLOOD COUNT 4.06 10^6/uL (3.72-5.28); RED CELL DISTRIBUTION WIDTH 15.4 % (11.5-14.0); SEGMENTED NEUTROPHILS % (AUTO) 82.1 % (42-78)
[2016-08-01 06:52] LABS: ANION GAP 10 (5-19); BLOOD UREA NITROGEN 34 mg/dL (7-20); CALCIUM 8.9 mg/dL (8.4-10.2); CARBON DIOXIDE 37 mmol/L (22-30); CHLORIDE 98 mmol/L (98-107); CREATININE RESULT 0.95 mg/dL (0.52-1.25); GLUCOSE 72 mg/dL (75-110); SODIUM 144.9 mmol/L (137-145)
[2016-08-01] MEDS: IPRATROPIUM/ALBUTEROL 0.5-2.5 MG/3 ML AMPUL NEB SCH ×3 (08:46→19:57)
[2016-08-01] MEDS: TOBRAMYCIN SULFATE NEB 40 MG/ML 30 ML NEB SCH ×2 (08:46→19:57)
[2016-08-01] MEDS: BUDESONIDE NEB 0.5 MG/2 ML AMPUL NEB SCH ×2 (08:46→19:58)
[2016-08-01] MEDS: INSULIN GLARGINE,HUM.REC.ANLOG 300 UNIT/3 ML INSULN.PEN SUBCUT SCH (09:11)
[2016-08-01] MEDS: BACLOFEN 10 MG TABLET PO SCH ×2 (09:12→17:21)
[2016-08-01] MEDS: PREDNISONE 20 MG TABLET PO SCH (09:12)
[2016-08-01] MEDS: SITAGLIPTIN PHOSPHATE 25 MG TABLET PO SCH (09:12)
[2016-08-01] MEDS: DULOXETINE HCL 30 MG CAPSULE.DR PO SCH (09:13)
[2016-08-01] MEDS: LACTOBACILLUS ACIDOPHILUS 250 MG TAB PO SCH ×2 (09:13→17:22)
[2016-08-01] MEDS: FUROSEMIDE 40 MG TABLET PO SCH ×2 (09:13→17:23)
[2016-08-01] MEDS: SENNOSIDES/DOCUSATE 8.6-50 MG 1 EACH TABLET PO SCH ×2 (09:14→17:22)
[2016-08-01] MEDS: ASCORBIC ACID 500 MG TABLET PO SCH ×2 (09:14→17:23)
[2016-08-01] MEDS: GABAPENTIN 300 MG CAPSULE PO SCH ×2 (09:14→17:20)
[2016-08-01] MEDS: PREGABALIN 100 MG CAPSULE PO SCH (09:14)
[2016-08-01] MEDS: CLONIDINE HCL 0.2 MG TABLET PO SCH ×2 (09:15→22:20)
[2016-08-01] MEDS: METFORMIN HCL 500 MG TABLET PO SCH ×2 (09:15→17:21)
[2016-08-01] MEDS: FERROUS SULFATE 325 MG TABLET PO SCH ×2 (09:16→17:22)
[2016-08-01] MEDS: POTASSIUM CHLORIDE 10 MEQ TABLET.SA PO SCH ×2 (09:16→22:21)
[2016-08-01] MEDS: APIXABAN 2.5 MG TABLET PO SCH ×2 (09:16→22:23)
[2016-08-01] MEDS: DILTIAZEM HCL 240 MG CAPSULE.CR PO SCH ×2 (09:16→22:22)
[2016-08-01] MEDS: BUPROPION HCL 75 MG TABLET PO SCH (09:16)
[2016-08-01] MEDS: GUAIFENESIN 600 MG TABLET.SA PO SCH ×2 (09:17→22:22)
[2016-08-01] MEDS: MAGNESIUM OXIDE 400 MG TABLET PO SCH ×2 (09:17→17:22)
[2016-08-01] MEDS: GLIPIZIDE 10 MG TABLET PO SCH (09:17)
[2016-08-01] MEDS: POLYETHYLENE GLYCOL 3350 POWDER 17 GM/1 PACKET PO SCH ×2 (09:17→17:25)
[2016-08-01] MEDS: PANTOPRAZOLE SODIUM 40 MG VIAL IV SCH ×2 (09:18→22:24)
[2016-08-01] MEDS: TIOTROPIUM BROMIDE DPI 5 CAP/KIT (18 MCG/CAP) IH SCH (09:18)
[2016-08-01] MEDS: FLUTICASONE NASAL SPRAY 50 MCG/SPRY 120 SPRAY/16 GM NASL SCH (09:19)
[2016-08-01] MEDS: IPRATROPIUM BROMIDE 0.06% NASAL SPRAY 15 ML NASL SCH ×2 (09:19→17:25)
[2016-08-01] MEDS: OLOPATADINE HCL 0.1% OPH SOLN 5 ML OU SCH (09:20)
[2016-08-01] MEDS: LIDOCAINE 5% (700 MG) TRANSDERMAL ADH..PATCH TP SCH (09:21)
[2016-08-01] MEDS: ALPRAZOLAM 0.25 MG TABLET PO PRN (12:33)
[2016-08-01] MEDS: INSULIN LISPRO 100 UNIT/ML 3 ML VIAL SUBCUT PRN ×3 (12:33→22:30)
[2016-08-01] MEDS: SIMETHICONE 80 MG TAB.CHEW PO PRN (12:33)
--- NOTE | 2016-08-01 14:41 | PDOC PROGRESS REPORT ---
Subjective Progress Note for:: 08/01/16 Subjective:: Patient is depressed She had barium swallow this morning , did tolerate barium well results are pending Her respiratory status is stable and improved no fever chills, chesp pain or SOB Physical Exam Vital Signs: Temp Pulse Resp BP Pulse Ox 98.5 F 83 18 126/65 H 92 08/01/16 11:55 08/01/16 14:17 08/01/16 14:17 08/01/16 11:55 08/01/16 11:55 Intake & Output 07/31/16 08/01/16 08/02/16 00:59 00:59 00:59 Intake Total 1561 2259 645 Output Total 3400 0160 1800 Balance -3989 -3929 -2653 Weight 101.2 kg 104.1 kg General appearance: PRESENT: no acute distress, obese Head exam: PRESENT: atraumatic, normocephalic Eye exam: PRESENT: conjunctiva pink, EOMI, PERRLA. ABSENT: scleral icterus Neck exam: ABSENT: carotid bruit, JVD, lymphadenopathy, thyromegaly Respiratory exam: PRESENT: rhonchi, wheezes. ABSENT: accessory muscle use, rales Cardiovascular exam: PRESENT: RRR. ABSENT: diastolic murmur, rubs, systolic murmur GI/Abdominal exam: PRESENT: normal bowel sounds, soft. ABSENT: distended, guarding, mass, organolmegaly, rebound, tenderness Extremities exam: PRESENT: full ROM. ABSENT: calf tenderness, clubbing, pedal edema Neurological exam: PRESENT: alert, awake, oriented to person, oriented to place , oriented to time, oriented to situation, CN II-XII grossly intact. ABSENT: motor sensory deficit Results Laboratory Results: 08/01/16 06:00 08/01/16 06:00 08/01/16 08/01/16 06:00 06:00 WBC 11.0 H RBC 4.06 Hgb 11.7 L Hct 35.5 L MCV 88 MCH 28.9 MCHC 33.0 RDW 15.4 H Plt Count 241 Seg Neutrophils % 82.1 H Lymphocytes % 9.1 L Monocytes % 8.5 Eosinophils % 0.2 Basophils % 0.1 Absolute Neutrophils 9.0 H Absolute Lymphocytes 1.0 Absolute Monocytes 0.9 Absolute Eosinophils 0.0 Absolute Basophils 0.0 Sodium 144.9 Potassium 4.0 Chloride 98 Carbon Dioxide 37 H Anion Gap 10 BUN 34 H Creatinine 0.95 Est GFR ( Amer) > 60 Est GFR (Non-Af Amer) 58 L Glucose 72 L Calcium 8.9 07/30/16 07/30/16 00:45 06:45 Troponin I 0.051 0.047 Impressions: Chest X-Ray 07/29/16 17:21 IMPRESSION: Minimal lingular atelectasis. Assessment & Plan - Diagnosis (1) Bronchitis, mucopurulent recurrent Is this a current diagnosis for this admission?: Yes (2) COPD exacerbation Is this a current diagnosis for this admission?: Yes (3) Paroxysmal atrial fibrillation with RVR Is this a current diagnosis for this admission?: Yes (4) UTI (urinary tract infection) Qualifiers: Urinary tract infection type: site unspecified Is this a current diagnosis for this admission?: Yes (5) Acute on chronic respiratory failure with hypoxia and hypercapnia Is this a current diagnosis for this admission?: Yes (7) CKD (chronic kidney disease), stage III Is this a current diagnosis for this admission?: Yes (8) Opiate dependence, continuous Is this a current diagnosis for this admission?: Yes (9) Swelling of left lower extremity Is this a current diagnosis for this admission?: Yes (10) Dysphagia Qualifiers: Dysphagia type: unspecified Qualified Code(s): R13.10 - Dysphagia, unspecified Is this a current diagnosis for this admission?: Yes - Time Time Spent with patient: continue present management repeat sputum cultures pending gram stain gram pos cocci, gram negative bacilli and yeast will add fluconazole and doxycycline (prior cultures MRSA and klebsiella sensitive to doxy and genta) Time Spent with patient: 25-34 minutes
[2016-08-01] MEDS ORDERED: DOXYCYCLINE HYCLATE 100 MG TABLET PO ONE (15:30)
[2016-08-01] MEDS: FLUCONAZOLE 100 MG TABLET PO SCH (17:24)
[2016-08-01] MEDS: MONTELUKAST SODIUM 10 MG TABLET PO SCH (22:21)
[2016-08-01] MEDS: LACTULOSE SYRUP 20 GM/30 ML UDCUP PO SCH (22:22)
[2016-08-01] MEDS: DOXYCYCLINE HYCLATE 100 MG TABLET PO SCH (22:23)
[2016-08-02] MEDS: PHARMACY COMMUNICATION ORDER MC SCH (00:27)
[2016-08-02] MEDS: HYDROCORTISONE 0.5% CREAM 28.35 GM TP SCH ×3 (00:27→15:00)
[2016-08-02] MEDS: OXYCODONE HCL IR 5 MG TABLET PO PRN (04:22)
[2016-08-02] MEDS: CETIRIZINE 5 MG TABLET PO SCH ×2 (04:54→22:56)
[2016-08-02] MEDS: GENTAMICIN SULFATE 160 MG in DEXTROSE 5%-WATER 100 ML IV SCH (06:01)
[2016-08-02] MEDS: LANSOPRAZOLE 15 MG TAB.RAP.DR PO SCH (06:02)
[2016-08-02 06:31] LABS: GENTAMICIN-TROUGH 0.9 ug/mL (<2.0)
[2016-08-02] MEDS: IPRATROPIUM/ALBUTEROL 0.5-2.5 MG/3 ML AMPUL NEB SCH ×3 (08:00→19:20)
[2016-08-02] MEDS: TOBRAMYCIN SULFATE NEB 40 MG/ML 30 ML NEB SCH ×2 (08:01→19:20)
[2016-08-02] MEDS: BUDESONIDE NEB 0.5 MG/2 ML AMPUL NEB SCH ×2 (08:01→19:21)
[2016-08-02] MEDS: INSULIN GLARGINE,HUM.REC.ANLOG 300 UNIT/3 ML INSULN.PEN SUBCUT SCH (08:55)
[2016-08-02] MEDS: GLIPIZIDE 10 MG TABLET PO SCH (08:56)
[2016-08-02 09:05] LABS: GENTAMICIN-PEAK 9.6 ug/mL (5.0-10.0)
[2016-08-02] MEDS: GUAIFENESIN 600 MG TABLET.SA PO SCH ×2 (09:33→22:54)
[2016-08-02] MEDS: DILTIAZEM HCL 240 MG CAPSULE.CR PO SCH ×2 (09:34→22:55)
[2016-08-02] MEDS: ALPRAZOLAM 0.25 MG TABLET PO PRN (09:34)
[2016-08-02] MEDS: FERROUS SULFATE 325 MG TABLET PO SCH ×2 (09:34→17:55)
[2016-08-02] MEDS: LACTOBACILLUS ACIDOPHILUS 250 MG TAB PO SCH ×2 (09:34→17:54)
[2016-08-02] MEDS: MAGNESIUM OXIDE 400 MG TABLET PO SCH ×2 (09:34→17:56)
[2016-08-02] MEDS: METFORMIN HCL 500 MG TABLET PO SCH ×2 (09:36→17:53)
[2016-08-02] MEDS: BACLOFEN 10 MG TABLET PO SCH ×2 (09:36→17:53)
[2016-08-02] MEDS: CLONIDINE HCL 0.2 MG TABLET PO SCH ×2 (09:36→22:54)
[2016-08-02] MEDS: BUPROPION HCL 75 MG TABLET PO SCH (09:36)
[2016-08-02] MEDS: POTASSIUM CHLORIDE 10 MEQ TABLET.SA PO SCH ×2 (09:37→22:53)
[2016-08-02] MEDS: FUROSEMIDE 40 MG TABLET PO SCH ×2 (09:37→17:57)
[2016-08-02] MEDS: APIXABAN 2.5 MG TABLET PO SCH ×2 (09:37→22:54)
[2016-08-02] MEDS: GABAPENTIN 300 MG CAPSULE PO SCH ×2 (09:38→17:54)
[2016-08-02] MEDS: PREDNISONE 20 MG TABLET PO SCH (09:38)
[2016-08-02] MEDS: ASCORBIC ACID 500 MG TABLET PO SCH ×2 (09:39→17:58)
[2016-08-02] MEDS: PREGABALIN 100 MG CAPSULE PO SCH (09:39)
[2016-08-02] MEDS: DULOXETINE HCL 30 MG CAPSULE.DR PO SCH (09:39)
[2016-08-02] MEDS: SENNOSIDES/DOCUSATE 8.6-50 MG 1 EACH TABLET PO SCH ×2 (09:41→17:54)
[2016-08-02] MEDS: IPRATROPIUM BROMIDE 0.06% NASAL SPRAY 15 ML NASL SCH ×2 (09:41→17:53)
[2016-08-02] MEDS: TIOTROPIUM BROMIDE DPI 5 CAP/KIT (18 MCG/CAP) IH SCH (09:42)
[2016-08-02] MEDS: OLOPATADINE HCL 0.1% OPH SOLN 5 ML OU SCH (09:43)
[2016-08-02] MEDS: FLUTICASONE NASAL SPRAY 50 MCG/SPRY 120 SPRAY/16 GM NASL SCH (09:43)
[2016-08-02] MEDS: POLYETHYLENE GLYCOL 3350 POWDER 17 GM/1 PACKET PO SCH ×2 (09:44→17:59)
[2016-08-02] MEDS: SITAGLIPTIN PHOSPHATE 25 MG TABLET PO SCH (09:46)
[2016-08-02] MEDS: LIDOCAINE 5% (700 MG) TRANSDERMAL ADH..PATCH TP SCH (09:46)
[2016-08-02] MEDS: DOXYCYCLINE HYCLATE 100 MG TABLET PO SCH ×2 (11:17→22:55)
[2016-08-02] MEDS: FENTANYL 50 MCG/HR PATCH.TD72 TD SCH (11:18)
[2016-08-02] MEDS ORDERED: MELATONIN 7.5 MG PO SCH (12:52)
[2016-08-02] MEDS: ALPRAZOLAM 0.25 MG TABLET PO SCH ×3 (14:04→22:54)
--- NOTE | 2016-08-02 15:03 | PDOC PROGRESS REPORT ---
Subjective Progress Note for:: 08/02/16 Subjective:: Patient states her breathing is better but she could not sleep last night and was extremely anxious no chest pain no nausea or vomiting Patient yesterday underwent Barium swallow which showed reflux esophagitis and distal esophageal stricture diet was changed to mechanical soft Physical Exam Vital Signs: Temp Pulse Resp BP Pulse Ox 98.4 F 87 16 113/87 H 98 08/02/16 11:43 08/02/16 13:45 08/02/16 13:45 08/02/16 11:43 08/02/16 11:43 Intake & Output 08/01/16 08/02/16 08/03/16 00:59 00:59 00:59 Intake Total 2259 1105 475 Output Total 8342 1570 2075 Balance -150 Weight 104.1 kg 105.2 kg General appearance: PRESENT: mild distress, morbidly obese Head exam: PRESENT: atraumatic, normocephalic Eye exam: PRESENT: conjunctiva pink, EOMI, PERRLA. ABSENT: scleral icterus Neck exam: ABSENT: carotid bruit, JVD, lymphadenopathy, thyromegaly Respiratory exam: PRESENT: decreased breath sounds, rhonchi, wheezes Cardiovascular exam: PRESENT: RRR. ABSENT: diastolic murmur, rubs, systolic murmur GI/Abdominal exam: PRESENT: normal bowel sounds, soft. ABSENT: distended, guarding, mass, organolmegaly, rebound, tenderness Musculoskeletal exam: PRESENT: full ROM Neurological exam: PRESENT: alert, awake, oriented to person, oriented to place , oriented to time, oriented to situation, CN II-XII grossly intact. ABSENT: motor sensory deficit Skin exam: PRESENT: dry, intact, warm. ABSENT: cyanosis, rash Results Laboratory Results: 08/01/16 06:00 08/02/16 06:58 08/02/16 06:58 Creatinine 1.00 Est GFR ( Amer) > 60 Est GFR (Non-Af Amer) 54 L 07/30/16 05:30 Sputum Gram Stain - Final 07/30/16 07/30/16 00:45 06:45 Troponin I 0.051 0.047 08/01/16 06:30 Urine Culture - Preliminary Catheterized Urine Gram Negative Rods 07/30/16 05:30 Gram Stain - Final Sputum Sputum Culture - Preliminary Gram Positive Cocci Clusters C.albicans/C.dubliniensis Normal Catarina Impressions: Chest X-Ray 07/29/16 17:21 IMPRESSION: Minimal lingular atelectasis. Esophagus X-Ray 08/01/16 08:00 IMPRESSION: Very limited study. No retained food bolus. Prominent tertiary contractions. Gastroesophageal reflux. Assessment & Plan - Diagnosis (1) Bronchitis, mucopurulent recurrent Is this a current diagnosis for this admission?: YesPlan: continue present antibiotics awaiting identification and sensitivity sputum culture (2) COPD exacerbation Is this a current diagnosis for this admission?: YesPlan: improving (3) Paroxysmal atrial fibrillation with RVR Is this a current diagnosis for this admission?: Yes (4) UTI (urinary tract infection) Qualifiers: Urinary tract infection type: site unspecified Is this a current diagnosis for this admission?: YesPlan: gram negative rods identification sensitivity pending (5) Acute on chronic respiratory failure with hypoxia and hypercapnia Is this a current diagnosis for this admission?: Yes (7) CKD (chronic kidney disease), stage III Is this a current diagnosis for this admission?: Yes (8) Opiate dependence, continuous Is this a current diagnosis for this admission?: Yes (9) Swelling of left lower extremity Is this a current diagnosis for this admission?: YesPlan: secondary to venous stasis no evidence of DVT (10) Dysphagia Qualifiers: Dysphagia type: unspecified Qualified Code(s): R13.10 - Dysphagia, unspecified Is this a current diagnosis for this admission?: YesPlan: secondary to esophageal stricture will change diet to mechanical soft continue PPI Patient declined GI consult for endoscopy - Time Time Spent with patient: continue present management patient likely will remain in the hospital for 48- 72 hours Time Spent with patient: 25-34 minutes
[2016-08-02] MEDS: INSULIN LISPRO 100 UNIT/ML 3 ML VIAL SUBCUT PRN ×2 (17:53→22:59)
[2016-08-02] MEDS: FLUCONAZOLE 100 MG TABLET PO SCH (17:55)
[2016-08-02] MEDS: OXYCODONE HCL IR 5 MG TABLET PO SCH ×2 (17:56→22:56)
[2016-08-02] MEDS: MONTELUKAST SODIUM 10 MG TABLET PO SCH (22:55)
[2016-08-02] MEDS: LACTULOSE SYRUP 20 GM/30 ML UDCUP PO SCH (22:58)
[2016-08-03] MEDS: HYDROCORTISONE 0.5% CREAM 28.35 GM TP SCH ×3 (01:49→13:50)
[2016-08-03] MEDS: PHARMACY COMMUNICATION ORDER MC SCH (01:49)
[2016-08-03] MEDS ORDERED: GENTAMICIN SULFATE 150 MG in DEXTROSE 5%-WATER 100 ML IV SCH (06:00)
[2016-08-03] MEDS: LANSOPRAZOLE 15 MG TAB.RAP.DR PO SCH (06:13)
[2016-08-03] MEDS: OXYCODONE HCL IR 5 MG TABLET PO SCH ×3 (06:14→18:17)
[2016-08-03] MEDS: IPRATROPIUM/ALBUTEROL 0.5-2.5 MG/3 ML AMPUL NEB SCH ×3 (08:07→19:38)
[2016-08-03] MEDS: TOBRAMYCIN SULFATE NEB 40 MG/ML 30 ML NEB SCH ×2 (08:07→19:38)
[2016-08-03] MEDS: BUDESONIDE NEB 0.5 MG/2 ML AMPUL NEB SCH ×2 (08:07→19:38)
[2016-08-03] MEDS: BUPROPION HCL 75 MG TABLET PO SCH (10:39)
[2016-08-03] MEDS: PREGABALIN 100 MG CAPSULE PO SCH (10:40)
[2016-08-03] MEDS: POTASSIUM CHLORIDE 10 MEQ TABLET.SA PO SCH ×2 (10:40→21:45)
[2016-08-03] MEDS: FUROSEMIDE 40 MG TABLET PO SCH ×2 (10:41→18:15)
[2016-08-03] MEDS: SITAGLIPTIN PHOSPHATE 25 MG TABLET PO SCH (10:41)
[2016-08-03] MEDS: MAGNESIUM OXIDE 400 MG TABLET PO SCH ×2 (10:42→18:19)
[2016-08-03] MEDS: GUAIFENESIN 600 MG TABLET.SA PO SCH ×2 (10:42→21:43)
[2016-08-03] MEDS: METFORMIN HCL 500 MG TABLET PO SCH ×2 (10:43→18:19)
[2016-08-03] MEDS: FERROUS SULFATE 325 MG TABLET PO SCH ×2 (10:43→18:19)
[2016-08-03] MEDS: DOXYCYCLINE HYCLATE 100 MG TABLET PO SCH ×2 (10:44→21:47)
[2016-08-03] MEDS: DULOXETINE HCL 30 MG CAPSULE.DR PO SCH (10:44)
[2016-08-03] MEDS: CLONIDINE HCL 0.2 MG TABLET PO SCH ×2 (10:45→21:47)
[2016-08-03] MEDS: DILTIAZEM HCL 240 MG CAPSULE.CR PO SCH ×2 (10:45→21:46)
[2016-08-03] MEDS: ALPRAZOLAM 0.25 MG TABLET PO SCH ×4 (10:45→21:47)
[2016-08-03] MEDS: APIXABAN 2.5 MG TABLET PO SCH ×2 (10:46→21:46)
[2016-08-03] MEDS: PREDNISONE 20 MG TABLET PO SCH (10:46)
[2016-08-03] MEDS: GLIPIZIDE 10 MG TABLET PO SCH (10:47)
[2016-08-03] MEDS: LACTOBACILLUS ACIDOPHILUS 250 MG TAB PO SCH ×2 (10:48→18:19)
[2016-08-03] MEDS: BACLOFEN 10 MG TABLET PO SCH ×2 (10:48→18:19)
[2016-08-03] MEDS: GABAPENTIN 300 MG CAPSULE PO SCH ×2 (10:48→18:17)
[2016-08-03] MEDS: SENNOSIDES/DOCUSATE 8.6-50 MG 1 EACH TABLET PO SCH ×2 (10:49→18:18)
[2016-08-03] MEDS: INSULIN GLARGINE,HUM.REC.ANLOG 300 UNIT/3 ML INSULN.PEN SUBCUT SCH (10:49)
[2016-08-03] MEDS: ASCORBIC ACID 500 MG TABLET PO SCH ×2 (10:49→18:18)
[2016-08-03] MEDS: TIOTROPIUM BROMIDE DPI 5 CAP/KIT (18 MCG/CAP) IH SCH (10:50)
[2016-08-03] MEDS: LIDOCAINE 5% (700 MG) TRANSDERMAL ADH..PATCH TP SCH (10:51)
[2016-08-03] MEDS: OLOPATADINE HCL 0.1% OPH SOLN 5 ML OU SCH (10:52)
[2016-08-03] MEDS: FLUTICASONE NASAL SPRAY 50 MCG/SPRY 120 SPRAY/16 GM NASL SCH (10:53)
[2016-08-03] MEDS: POLYETHYLENE GLYCOL 3350 POWDER 17 GM/1 PACKET PO SCH ×2 (10:54→18:14)
[2016-08-03] MEDS: IPRATROPIUM BROMIDE 0.06% NASAL SPRAY 15 ML NASL SCH ×2 (10:55→18:20)
[2016-08-03] MEDS ORDERED: HYDROCORTISONE 0.5% CREAM 28.35 GM TP PRN (14:44)
[2016-08-03] MEDS ORDERED: ALTEPLASE INJ 2 MG VIAL (CATH CLEARANCE) INJ PRN (14:52)
--- NOTE | 2016-08-03 17:54 | PDOC PROGRESS REPORT ---
Subjective Progress Note for:: 08/03/16 Subjective:: Patient is finally feeling somewhat better Cough is still persistent as well as wheezing She has less dysphagia and now she is careful to take small bites No abdominal pain no fever no chills Physical Exam Vital Signs: Temp Pulse Resp BP Pulse Ox 98.2 F 79 16 111/59 L 96 08/02/16 15:31 08/03/16 14:27 08/03/16 14:27 08/02/16 15:31 08/02/16 19:21 Intake & Output 08/02/16 08/03/16 08/04/16 00:59 00:59 00:59 Intake Total 1105 1560 1352 Output Total 3100 4651 1700 Balance -1995 -3115 -348 Weight 104.1 kg 105.2 kg 105.3 kg General appearance: PRESENT: cooperative, mild distress Head exam: PRESENT: atraumatic, normocephalic Eye exam: PRESENT: conjunctiva pink, EOMI, PERRLA. ABSENT: scleral icterus Neck exam: ABSENT: carotid bruit, JVD, lymphadenopathy, thyromegaly Respiratory exam: PRESENT: rhonchi, wheezes. ABSENT: accessory muscle use, chest wall tenderness Cardiovascular exam: PRESENT: RRR. ABSENT: diastolic murmur, rubs, systolic murmur GI/Abdominal exam: PRESENT: normal bowel sounds, soft. ABSENT: distended, guarding, mass, organolmegaly, rebound, tenderness Gentrourinary exam: ABSENT: ecchymosis, erythema Extremities exam: PRESENT: full ROM. ABSENT: calf tenderness, clubbing, pedal edema Neurological exam: PRESENT: alert, awake, oriented to person, oriented to place , oriented to time, oriented to situation, CN II-XII grossly intact. ABSENT: motor sensory deficit Results Laboratory Results: 08/01/16 06:00 08/02/16 06:58 07/30/16 05:30 Sputum Gram Stain - Final 07/30/16 07/30/16 00:45 06:45 Troponin I 0.051 0.047 Impressions: Chest X-Ray 07/29/16 17:21 IMPRESSION: Minimal lingular atelectasis. Esophagus X-Ray 08/01/16 08:00 IMPRESSION: Very limited study. No retained food bolus. Prominent tertiary contractions. Gastroesophageal reflux. Assessment & Plan - Diagnosis (1) Bronchitis, mucopurulent recurrent Is this a current diagnosis for this admission?: Yes (2) COPD exacerbation Is this a current diagnosis for this admission?: Yes (3) Paroxysmal atrial fibrillation with RVR Is this a current diagnosis for this admission?: Yes (4) UTI (urinary tract infection) Qualifiers: Urinary tract infection type: site unspecified Is this a current diagnosis for this admission?: Yes (5) Acute on chronic respiratory failure with hypoxia and hypercapnia Is this a current diagnosis for this admission?: Yes (7) CKD (chronic kidney disease), stage III Is this a current diagnosis for this admission?: Yes (8) Opiate dependence, continuous Is this a current diagnosis for this admission?: Yes (9) Swelling of left lower extremity Is this a current diagnosis for this admission?: Yes (10) Dysphagia Qualifiers: Dysphagia type: unspecified Qualified Code(s): R13.10 - Dysphagia, unspecified Is this a current diagnosis for this admission?: Yes - Time Time Spent with patient: Sputum is positive for MRSA We will initiate vancomycin Continue other meds Time Spent with patient: 25-34 minutes
[2016-08-03] MEDS ORDERED: VANCOMYCIN HCL 0 MG in DEXTROSE 5%-WATER 250 ML IV NR (18:00)
[2016-08-03] MEDS ORDERED: GLIPIZIDE 10 MG TABLET PO SCH (18:02)
[2016-08-03] MEDS: LACTULOSE SYRUP 20 GM/30 ML UDCUP PO SCH (18:15)
[2016-08-03] MEDS: FLUCONAZOLE 100 MG TABLET PO SCH (18:15)
[2016-08-03] MEDS: MONTELUKAST SODIUM 10 MG TABLET PO SCH (21:46)
[2016-08-03] MEDS: VANCOMYCIN HCL 1,500 MG in DEXTROSE 5%-WATER 250 ML IV SCH (22:41)
[2016-08-04] MEDS: PHARMACY COMMUNICATION ORDER MC SCH (01:22)
[2016-08-04] MEDS: ERTAPENEM SODIUM 1 GM in NORMAL SALINE 50 ML IV SCH (02:04)
[2016-08-04] MEDS: CETIRIZINE 5 MG TABLET PO SCH (02:12)
[2016-08-04] MEDS: OXYCODONE HCL IR 5 MG TABLET PO SCH ×5 (05:22→23:12)
[2016-08-04] MEDS: LANSOPRAZOLE 15 MG TAB.RAP.DR PO SCH (05:29)
[2016-08-04 05:56] LABS: HEMATOCRIT 34.2 % (36.0-47.0); HEMOGLOBIN 11.4 g/dL (12.0-15.5); MEAN CORPUSCULAR HEMOGLOBIN 28.7 pg (27.0-33.4); MEAN CORPUSCULAR HGB CONC 33.3 g/dL (32.0-36.0); MEAN CORPUSCULAR VOLUME 86 fl (80-97); RED BLOOD COUNT 3.97 10^6/uL (3.72-5.28); RED CELL DISTRIBUTION WIDTH 15.3 % (11.5-14.0); WHITE BLOOD COUNT 9.9 10^3/uL (4.0-10.5)
[2016-08-04 06:18] LABS: ANION GAP 9 (5-19); BLOOD UREA NITROGEN 31 mg/dL (7-20); CALCIUM 9.6 mg/dL (8.4-10.2); CARBON DIOXIDE 39 mmol/L (22-30); CHLORIDE 94 mmol/L (98-107); CREATININE RESULT 0.92 mg/dL (0.52-1.25); GLUCOSE 155 mg/dL (75-110); POTASSIUM 4.2 mmol/L (3.6-5.0); SODIUM 141.5 mmol/L (137-145)
[2016-08-04] MEDS: BUDESONIDE NEB 0.5 MG/2 ML AMPUL NEB SCH ×2 (08:29→20:59)
[2016-08-04] MEDS: IPRATROPIUM/ALBUTEROL 0.5-2.5 MG/3 ML AMPUL NEB SCH ×3 (08:29→20:59)
[2016-08-04] MEDS: TOBRAMYCIN SULFATE NEB 40 MG/ML 30 ML NEB SCH ×2 (08:30→20:59)
--- NOTE | 2016-08-04 08:35 | PDOC PROGRESS REPORT ---
Subjective Progress Note for:: 08/04/16 Subjective:: Patient is feeling a lot better Cough and the shortness of breath have improved Leukocytosis is resolving Culture and sensitivity are not all available yet from sputum and urine And definitive antibiotic management will be decided later today or tomorrow Vancomycin was initiated IV Physical Exam Vital Signs: Temp Pulse Resp BP Pulse Ox 97.6 F 70 20 122/64 98 08/04/16 07:18 08/04/16 07:18 08/04/16 07:18 08/04/16 07:18 08/04/16 07:18 Intake & Output 08/03/16 08/04/16 08/05/16 00:59 00:59 00:59 Intake Total 1560 2452 Output Total 4647 6590 1400 Balance -1915 -6288 -0952 Weight 105.2 kg 105.3 kg 110.2 kg General appearance: PRESENT: no acute distress, morbidly obese Head exam: PRESENT: atraumatic, normocephalic Eye exam: PRESENT: conjunctiva pink, EOMI, PERRLA. ABSENT: scleral icterus Neck exam: ABSENT: carotid bruit, JVD, lymphadenopathy, thyromegaly Respiratory exam: PRESENT: decreased breath sounds, rhonchi, wheezes. ABSENT: rales Cardiovascular exam: PRESENT: RRR. ABSENT: diastolic murmur, rubs, systolic murmur Pulses: PRESENT: normal dorsalis pedis pul Vascular exam: PRESENT: normal capillary refill GI/Abdominal exam: PRESENT: normal bowel sounds, soft. ABSENT: distended, guarding, mass, organolmegaly, rebound, tenderness Extremities exam: PRESENT: full ROM. ABSENT: calf tenderness, clubbing, pedal edema Neurological exam: PRESENT: alert, awake, oriented to person, oriented to place , oriented to time, oriented to situation, CN II-XII grossly intact. ABSENT: motor sensory deficit Results Laboratory Results: 08/04/16 05:45 08/04/16 05:45 08/04/16 08/04/16 05:45 05:45 WBC 9.9 RBC 3.97 Hgb 11.4 L Hct 34.2 L MCV 86 MCH 28.7 MCHC 33.3 RDW 15.3 H Plt Count 215 Sodium 141.5 Potassium 4.2 Chloride 94 L Carbon Dioxide 39 H Anion Gap 9 BUN 31 H Creatinine 0.92 Est GFR ( Amer) > 60 Est GFR (Non-Af Amer) > 60 Glucose 155 H Calcium 9.6 07/30/16 05:30 Sputum Gram Stain - Final 07/30/16 05:30 Sputum Sputum Culture - Final Mrsa (Meth Resis Staph Aureus) C.albicans/C.dubliniensis Normal Catarina 07/30/16 07/30/16 00:45 06:45 Troponin I 0.051 0.047 08/01/16 06:30 Urine Culture - Preliminary Catheterized Urine Gram Negative Rods Gram Negative Rods#2 07/30/16 05:30 Gram Stain - Final Sputum Sputum Culture - Final Mrsa (Meth Resis Staph Aureus) C.albicans/C.dubliniensis Normal Catarina 07/30/16 00:45 Blood Culture - Preliminary Blood NO GROWTH 4 DAYS 07/29/16 18:30 Blood Culture - Final Blood NO GROWTH IN 5 DAYS 07/26/16 18:00 Blood Culture - Final Blood NO GROWTH IN 5 DAYS Impressions: Chest X-Ray 07/29/16 17:21 IMPRESSION: Minimal lingular atelectasis. Esophagus X-Ray 08/01/16 08:00 IMPRESSION: Very limited study. No retained food bolus. Prominent tertiary contractions. Gastroesophageal reflux. Assessment & Plan - Diagnosis (1) Bronchitis, mucopurulent recurrent Is this a current diagnosis for this admission?: Yes (2) COPD exacerbation Is this a current diagnosis for this admission?: Yes (3) Paroxysmal atrial fibrillation with RVR Is this a current diagnosis for this admission?: Yes (4) UTI (urinary tract infection) Qualifiers: Urinary tract infection type: site unspecified Is this a current diagnosis for this admission?: Yes (5) Acute on chronic respiratory failure with hypoxia and hypercapnia Is this a current diagnosis for this admission?: Yes (7) CKD (chronic kidney disease), stage III Is this a current diagnosis for this admission?: Yes (8) Opiate dependence, continuous Is this a current diagnosis for this admission?: Yes (9) Swelling of left lower extremity Is this a current diagnosis for this admission?: Yes (10) Dysphagia Qualifiers: Dysphagia type: unspecified Qualified Code(s): R13.10 - Dysphagia, unspecified Is this a current diagnosis for this admission?: Yes - Time Time Spent with patient: Awaiting culture results Most likely [facility] will be [facility] 2 [facility] of antibiotic therapy We will review prescribed medications and discontinue the non-essential ones Time Spent with patient: 25-34 minutes
[2016-08-04] MEDS: GLIPIZIDE 5 MG TABLET PO SCH (10:15)
[2016-08-04] MEDS: POLYETHYLENE GLYCOL 3350 POWDER 17 GM/1 PACKET PO SCH ×2 (10:15→18:06)
[2016-08-04] MEDS: LIDOCAINE 5% (700 MG) TRANSDERMAL ADH..PATCH TP SCH (10:16)
[2016-08-04] MEDS: ALPRAZOLAM 0.25 MG TABLET PO SCH ×4 (10:17→23:11)
[2016-08-04] MEDS: APIXABAN 2.5 MG TABLET PO SCH ×2 (10:17→23:10)
[2016-08-04] MEDS: METFORMIN HCL 500 MG TABLET PO SCH ×2 (10:17→18:05)
[2016-08-04] MEDS: LACTOBACILLUS ACIDOPHILUS 250 MG TAB PO SCH ×2 (10:17→18:04)
[2016-08-04] MEDS: POTASSIUM CHLORIDE 10 MEQ TABLET.SA PO SCH ×2 (10:17→23:11)
[2016-08-04] MEDS: CLONIDINE HCL 0.2 MG TABLET PO SCH ×2 (10:17→23:13)
[2016-08-04] MEDS: PREGABALIN 100 MG CAPSULE PO SCH (10:18)
[2016-08-04] MEDS: BUPROPION HCL 75 MG TABLET PO SCH (10:18)
[2016-08-04] MEDS: PREDNISONE 20 MG TABLET PO SCH (10:18)
[2016-08-04] MEDS: DULOXETINE HCL 30 MG CAPSULE.DR PO SCH (10:18)
[2016-08-04] MEDS: GABAPENTIN 300 MG CAPSULE PO SCH ×2 (10:18→18:06)
[2016-08-04] MEDS: SENNOSIDES/DOCUSATE 8.6-50 MG 1 EACH TABLET PO SCH ×2 (10:19→18:04)
[2016-08-04] MEDS: FUROSEMIDE 40 MG TABLET PO SCH ×2 (10:19→18:06)
[2016-08-04] MEDS: MAGNESIUM OXIDE 400 MG TABLET PO SCH ×2 (10:19→18:05)
[2016-08-04] MEDS: BACLOFEN 10 MG TABLET PO SCH ×2 (10:20→18:04)
[2016-08-04] MEDS: DILTIAZEM HCL 240 MG CAPSULE.CR PO SCH ×2 (10:20→23:10)
[2016-08-04] MEDS: GUAIFENESIN 600 MG TABLET.SA PO SCH ×2 (10:20→23:09)
[2016-08-04] MEDS: MAGNESIUM HYDROXIDE SUSP 30 ML UDCUP PO PRN ×2 (10:21→18:12)
[2016-08-04] MEDS: LACTULOSE SYRUP 20 GM/30 ML UDCUP PO SCH ×2 (10:21→18:04)
[2016-08-04] MEDS: OLOPATADINE HCL 0.1% OPH SOLN 5 ML OU SCH (10:39)
[2016-08-04] MEDS: FLUTICASONE NASAL SPRAY 50 MCG/SPRY 120 SPRAY/16 GM NASL SCH (10:39)
[2016-08-04] MEDS: IPRATROPIUM BROMIDE 0.06% NASAL SPRAY 15 ML NASL SCH ×2 (10:39→18:07)
[2016-08-04] MEDS: INSULIN GLARGINE,HUM.REC.ANLOG 300 UNIT/3 ML INSULN.PEN SUBCUT SCH (10:40)
[2016-08-04] MEDS: SITAGLIPTIN PHOSPHATE 25 MG TABLET PO SCH (10:45)
[2016-08-04] MEDS: TIOTROPIUM BROMIDE DPI 5 CAP/KIT (18 MCG/CAP) IH SCH (10:45)
[2016-08-04] MEDS: FLUCONAZOLE 100 MG TABLET PO SCH (18:04)
[2016-08-04] MEDS: VANCOMYCIN HCL 1,500 MG in DEXTROSE 5%-WATER 250 ML IV SCH (21:48)
[2016-08-04] MEDS: MONTELUKAST SODIUM 10 MG TABLET PO SCH (23:12)
[2016-08-05] MEDS: OXYCODONE HCL IR 5 MG TABLET PO SCH ×3 (06:00→18:51)
[2016-08-05] MEDS: PHARMACY COMMUNICATION ORDER MC SCH ×2 (06:04→22:50)
[2016-08-05] MEDS: ERTAPENEM SODIUM 1 GM in NORMAL SALINE 50 ML IV SCH (06:05)
[2016-08-05] MEDS: BUDESONIDE NEB 0.5 MG/2 ML AMPUL NEB SCH ×2 (09:01→20:06)
[2016-08-05] MEDS: IPRATROPIUM/ALBUTEROL 0.5-2.5 MG/3 ML AMPUL NEB SCH ×3 (09:02→20:06)
[2016-08-05] MEDS: TOBRAMYCIN SULFATE NEB 40 MG/ML 30 ML NEB SCH ×2 (09:02→20:07)
[2016-08-05] MEDS: POLYETHYLENE GLYCOL 3350 POWDER 17 GM/1 PACKET PO SCH ×2 (09:31→18:53)
[2016-08-05] MEDS: CLONIDINE HCL 0.2 MG TABLET PO SCH ×2 (09:32→22:49)
[2016-08-05] MEDS: POTASSIUM CHLORIDE 10 MEQ TABLET.SA PO SCH ×2 (09:32→22:50)
[2016-08-05] MEDS: BUPROPION HCL 75 MG TABLET PO SCH (09:32)
[2016-08-05] MEDS: DILTIAZEM HCL 240 MG CAPSULE.CR PO SCH ×2 (09:33→22:50)
[2016-08-05] MEDS: APIXABAN 2.5 MG TABLET PO SCH ×2 (09:33→22:49)
[2016-08-05] MEDS: DULOXETINE HCL 30 MG CAPSULE.DR PO SCH (09:33)
[2016-08-05] MEDS: BACLOFEN 10 MG TABLET PO SCH ×2 (09:33→18:50)
[2016-08-05] MEDS: GLIPIZIDE 5 MG TABLET PO SCH (09:33)
[2016-08-05] MEDS: MAGNESIUM OXIDE 400 MG TABLET PO SCH ×2 (09:38→18:50)
[2016-08-05] MEDS: SENNOSIDES/DOCUSATE 8.6-50 MG 1 EACH TABLET PO SCH ×2 (09:38→18:51)
[2016-08-05] MEDS: GUAIFENESIN 600 MG TABLET.SA PO SCH ×2 (09:38→22:49)
[2016-08-05] MEDS: PREDNISONE 20 MG TABLET PO SCH (09:38)
[2016-08-05 09:39] LABS: HEMATOCRIT 34.3 % (36.0-47.0); HEMOGLOBIN 11.2 g/dL (12.0-15.5); HGB HCT DIFFERENCE -0.7; MEAN CORPUSCULAR HEMOGLOBIN 28.4 pg (27.0-33.4); MEAN CORPUSCULAR HGB CONC 32.6 g/dL (32.0-36.0); MEAN CORPUSCULAR VOLUME 87 fl (80-97); RED BLOOD COUNT 3.93 10^6/uL (3.72-5.28); RED CELL DISTRIBUTION WIDTH 15.5 % (11.5-14.0); WHITE BLOOD COUNT 11.9 10^3/uL (4.0-10.5)
[2016-08-05] MEDS: ALPRAZOLAM 0.25 MG TABLET PO SCH ×4 (09:39→22:49)
[2016-08-05] MEDS: LACTOBACILLUS ACIDOPHILUS 250 MG TAB PO SCH ×2 (09:39→18:50)
[2016-08-05] MEDS: GABAPENTIN 300 MG CAPSULE PO SCH ×2 (09:39→18:52)
[2016-08-05] MEDS: METFORMIN HCL 500 MG TABLET PO SCH ×2 (09:39→18:51)
[2016-08-05] MEDS: PREGABALIN 100 MG CAPSULE PO SCH (09:39)
[2016-08-05] MEDS: FUROSEMIDE 40 MG TABLET PO SCH ×2 (09:39→18:50)
[2016-08-05] MEDS: LACTULOSE SYRUP 20 GM/30 ML UDCUP PO SCH ×2 (09:40→18:50)
[2016-08-05] MEDS: SITAGLIPTIN PHOSPHATE 25 MG TABLET PO SCH (09:41)
[2016-08-05] MEDS ORDERED: IMIPENEM/CILASTATIN SODIUM 1,000 MG in NORMAL SALINE 250 ML IV SCH (09:45)
[2016-08-05] MEDS: FENTANYL 50 MCG/HR PATCH.TD72 TD SCH (09:48)
[2016-08-05] MEDS: FLUTICASONE NASAL SPRAY 50 MCG/SPRY 120 SPRAY/16 GM NASL SCH (09:49)
[2016-08-05] MEDS: LANSOPRAZOLE 15 MG TAB.RAP.DR PO SCH (09:49)
[2016-08-05] MEDS: LIDOCAINE 5% (700 MG) TRANSDERMAL ADH..PATCH TP SCH (09:49)
[2016-08-05] MEDS: IPRATROPIUM BROMIDE 0.06% NASAL SPRAY 15 ML NASL SCH ×2 (09:49→18:41)
[2016-08-05] MEDS: OLOPATADINE HCL 0.1% OPH SOLN 5 ML OU SCH (09:49)
[2016-08-05] MEDS: INSULIN GLARGINE,HUM.REC.ANLOG 300 UNIT/3 ML INSULN.PEN SUBCUT SCH (10:00)
[2016-08-05 10:08] LABS: ANION GAP 8 (5-19); BLOOD UREA NITROGEN 34 mg/dL (7-20); CALCIUM 9.4 mg/dL (8.4-10.2); CARBON DIOXIDE 39 mmol/L (22-30); CHLORIDE 91 mmol/L (98-107); CREATININE RESULT 1.03 mg/dL (0.52-1.25); GLUCOSE 167 mg/dL (75-110); POTASSIUM 4.4 mmol/L (3.6-5.0); SODIUM 138.4 mmol/L (137-145)
[2016-08-05] MEDS ORDERED: NYSTATIN TOPICAL POWDER 15 GM TP ONE (11:00)
[2016-08-05] MEDS: IMIPENEM/CILASTATIN SODIUM 500 MG in NORMAL SALINE 100 ML IV SCH ×2 (12:46→18:52)
[2016-08-05] MEDS: TIOTROPIUM BROMIDE DPI 5 CAP/KIT (18 MCG/CAP) IH SCH (12:48)
--- NOTE | 2016-08-05 16:40 | PDOC PROGRESS REPORT ---
Subjective Progress Note for:: 08/05/16 Subjective:: Patient is finally improving. Her breathing is is better She's no chest pain No fever no chills she is eating better Urine culture recovered Providencia and Pseudomonas in the urine and MRSA in sputum Patient was placed on imipenem and vancomycin Physical Exam Vital Signs: Temp Pulse Resp BP Pulse Ox 97.6 F 77 20 123/68 94 08/05/16 15:24 08/05/16 15:24 08/05/16 15:24 08/05/16 15:24 08/05/16 15:24 Intake & Output 08/04/16 08/05/16 08/06/16 00:59 00:59 00:59 Intake Total 2452 1856 585 Output Total 4900 3150 1150 Balance -2448 -1294 -565 Weight 105.3 kg 110.2 kg 108 kg General appearance: PRESENT: no acute distress, morbidly obese Head exam: PRESENT: atraumatic, normocephalic Eye exam: PRESENT: conjunctiva pink, EOMI, PERRLA. ABSENT: scleral icterus Ear exam: PRESENT: normal external ear exam Mouth exam: PRESENT: moist, tongue midline Neck exam: ABSENT: carotid bruit, JVD, lymphadenopathy, thyromegaly Respiratory exam: PRESENT: decreased breath sounds, rhonchi, wheezes - Decreased. ABSENT: rales Cardiovascular exam: PRESENT: RRR. ABSENT: diastolic murmur, rubs, systolic murmur Pulses: PRESENT: normal dorsalis pedis pul Vascular exam: PRESENT: normal capillary refill GI/Abdominal exam: PRESENT: normal bowel sounds, soft. ABSENT: distended, guarding, mass, organolmegaly, rebound, tenderness Rectal exam: PRESENT: deferred Extremities exam: PRESENT: full ROM. ABSENT: calf tenderness, clubbing, pedal edema Neurological exam: PRESENT: alert, awake, oriented to person, oriented to place , oriented to time, oriented to situation, CN II-XII grossly intact. ABSENT: motor sensory deficit Psychiatric exam: PRESENT: appropriate affect, normal mood. ABSENT: homicidal ideation, suicidal ideation Skin exam: PRESENT: dry, intact, warm. ABSENT: cyanosis, rash Results Laboratory Results: 08/05/16 09:18 08/05/16 09:18 08/05/16 08/05/16 09:18 09:18 WBC 11.9 H RBC 3.93 Hgb 11.2 L Hct 34.3 L MCV 87 MCH 28.4 MCHC 32.6 RDW 15.5 H Plt Count 215 Sodium 138.4 Potassium 4.4 Chloride 91 L Carbon Dioxide 39 H Anion Gap 8 BUN 34 H Creatinine 1.03 Est GFR ( Amer) > 60 Est GFR (Non-Af Amer) 53 L Glucose 167 H Calcium 9.4 08/01/16 06:30 Catheterized Urine Urine Culture - Final Providencia Stuartii Pseudomonas Aeruginosa 07/30/16 07/30/16 00:45 06:45 Troponin I 0.051 0.047 Impressions: Chest X-Ray 07/29/16 17:21 IMPRESSION: Minimal lingular atelectasis. Esophagus X-Ray 08/01/16 08:00 IMPRESSION: Very limited study. No retained food bolus. Prominent tertiary contractions. Gastroesophageal reflux. Assessment & Plan - Diagnosis (1) Bronchitis, mucopurulent recurrent Is this a current diagnosis for this admission?: YesPlan: Continue vancomycin and fluconazole We'll discharge patient to weeks treatment (2) COPD exacerbation Is this a current diagnosis for this admission?: Yes (3) Paroxysmal atrial fibrillation with RVR Is this a current diagnosis for this admission?: Yes (4) UTI (urinary tract infection) Qualifiers: Urinary tract infection type: site unspecified Is this a current diagnosis for this admission?: YesPlan: Recurrent Continue Primaxin for 2 weeks (5) Acute on chronic respiratory failure with hypoxia and hypercapnia Is this a current diagnosis for this admission?: Yes (7) CKD (chronic kidney disease), stage III Is this a current diagnosis for this admission?: Yes (8) Opiate dependence, continuous Is this a current diagnosis for this admission?: Yes (9) Swelling of left lower extremity Is this a current diagnosis for this admission?: Yes (10) Dysphagia Qualifiers: Dysphagia type: unspecified Qualified Code(s): R13.10 - Dysphagia, unspecified Is this a current diagnosis for this admission?: Yes - Time Time Spent with patient: 25-34 minutes - We will discharge patient in a.m. back to shelter if still stable
[2016-08-05] MEDS: NYSTATIN TOPICAL POWDER 15 GM TP SCH (18:41)
[2016-08-05] MEDS: FLUCONAZOLE 100 MG TABLET PO SCH (18:52)
[2016-08-05] MEDS: VANCOMYCIN HCL 1,500 MG in DEXTROSE 5%-WATER 250 ML IV SCH (20:55)
[2016-08-05] MEDS: MONTELUKAST SODIUM 10 MG TABLET PO SCH (22:48)
[2016-08-06] MEDS: OXYCODONE HCL IR 5 MG TABLET PO SCH ×4 (00:50→16:52)
[2016-08-06] MEDS: IMIPENEM/CILASTATIN SODIUM 500 MG in NORMAL SALINE 100 ML IV SCH ×3 (02:40→11:16)
[2016-08-06] MEDS: LANSOPRAZOLE 15 MG TAB.RAP.DR PO SCH (05:34)
[2016-08-06 06:13] LABS: HEMATOCRIT 34.3 % (36.0-47.0); HEMOGLOBIN 11.5 g/dL (12.0-15.5); HGB HCT DIFFERENCE 0.2; MEAN CORPUSCULAR HEMOGLOBIN 28.5 pg (27.0-33.4); MEAN CORPUSCULAR HGB CONC 33.4 g/dL (32.0-36.0); MEAN CORPUSCULAR VOLUME 86 fl (80-97); RED BLOOD COUNT 4.01 10^6/uL (3.72-5.28); WHITE BLOOD COUNT 10.4 10^3/uL (4.0-10.5)
[2016-08-06 06:23] LABS: BLOOD UREA NITROGEN 37 mg/dL (7-20); CALCIUM 9.5 mg/dL (8.4-10.2); CHLORIDE 87 mmol/L (98-107); CREATININE RESULT 1.42 mg/dL (0.52-1.25); POTASSIUM 4.7 mmol/L (3.6-5.0); SODIUM 137.1 mmol/L (137-145)
[2016-08-06 06:24] LABS: GLUCOSE 138 mg/dL (75-110)
[2016-08-06 06:28] LABS: ANION GAP 10 (5-19)
[2016-08-06 06:36] LABS: CARBON DIOXIDE 40 mmol/L (22-30)
[2016-08-06 06:38] LABS: ANISOCYTOSIS SLIGHT; BASOPHILS % (MANUAL) 0 % (0-2); EOSINOPHILS % (MANUAL) 1 % (0-6); LYMPHOCYTES % (MANUAL) 5 % (13-45); TOTAL CELLS COUNTED 100
[2016-08-06] MEDS: IPRATROPIUM/ALBUTEROL 0.5-2.5 MG/3 ML AMPUL NEB SCH ×3 (09:00→20:58)
[2016-08-06] MEDS: BUDESONIDE NEB 0.5 MG/2 ML AMPUL NEB SCH ×2 (09:00→20:58)
[2016-08-06] MEDS ORDERED: NORMAL SALINE 1000 ML 1,000 ML IV PRN (09:41)
[2016-08-06] MEDS: INSULIN GLARGINE,HUM.REC.ANLOG 300 UNIT/3 ML INSULN.PEN SUBCUT SCH (10:45)
[2016-08-06] MEDS: GUAIFENESIN SYRP 200 MG/10 ML UDC PO PRN (10:46)
[2016-08-06] MEDS: POTASSIUM CHLORIDE 10 MEQ TABLET.SA PO SCH ×2 (10:47→22:18)
[2016-08-06] MEDS: DULOXETINE HCL 30 MG CAPSULE.DR PO SCH (10:47)
[2016-08-06] MEDS: DILTIAZEM HCL 240 MG CAPSULE.CR PO SCH ×2 (10:47→22:18)
[2016-08-06] MEDS: GABAPENTIN 300 MG CAPSULE PO SCH ×2 (10:47→16:51)
[2016-08-06] MEDS: CLONIDINE HCL 0.2 MG TABLET PO SCH ×2 (10:48→22:19)
[2016-08-06] MEDS: MAGNESIUM HYDROXIDE SUSP 30 ML UDCUP PO PRN (10:48)
[2016-08-06] MEDS: APIXABAN 2.5 MG TABLET PO SCH ×2 (10:48→22:19)
[2016-08-06] MEDS: SENNOSIDES/DOCUSATE 8.6-50 MG 1 EACH TABLET PO SCH ×2 (10:48→16:51)
[2016-08-06] MEDS: LACTULOSE SYRUP 20 GM/30 ML UDCUP PO SCH ×2 (10:48→16:53)
[2016-08-06] MEDS: PREDNISONE 20 MG TABLET PO SCH (10:48)
[2016-08-06] MEDS: FUROSEMIDE 40 MG TABLET PO SCH ×2 (10:49→16:51)
[2016-08-06] MEDS: BACLOFEN 10 MG TABLET PO SCH ×2 (10:49→16:52)
[2016-08-06] MEDS: ALPRAZOLAM 0.25 MG TABLET PO SCH ×4 (10:49→22:19)
[2016-08-06] MEDS: SIMETHICONE 80 MG TAB.CHEW PO PRN (10:49)
[2016-08-06] MEDS: LACTOBACILLUS ACIDOPHILUS 250 MG TAB PO SCH ×2 (10:49→16:50)
[2016-08-06] MEDS: SITAGLIPTIN PHOSPHATE 25 MG TABLET PO SCH (10:49)
[2016-08-06] MEDS: MAGNESIUM OXIDE 400 MG TABLET PO SCH ×2 (10:49→16:51)
[2016-08-06] MEDS: GLIPIZIDE 5 MG TABLET PO SCH (10:49)
[2016-08-06] MEDS: PREGABALIN 100 MG CAPSULE PO SCH (10:50)
[2016-08-06] MEDS: METFORMIN HCL 500 MG TABLET PO SCH ×2 (10:50→16:51)
[2016-08-06] MEDS: POLYETHYLENE GLYCOL 3350 POWDER 17 GM/1 PACKET PO SCH ×2 (10:51→16:53)
[2016-08-06] MEDS: BUPROPION HCL 75 MG TABLET PO SCH (10:51)
[2016-08-06] MEDS: NYSTATIN TOPICAL POWDER 15 GM TP SCH ×2 (10:51→16:53)
[2016-08-06] MEDS: LIDOCAINE 5% (700 MG) TRANSDERMAL ADH..PATCH TP SCH (10:52)
[2016-08-06] MEDS: FLUTICASONE NASAL SPRAY 50 MCG/SPRY 120 SPRAY/16 GM NASL SCH (10:53)
[2016-08-06] MEDS: IPRATROPIUM BROMIDE 0.06% NASAL SPRAY 15 ML NASL SCH ×2 (10:54→19:00)
[2016-08-06] MEDS: OLOPATADINE HCL 0.1% OPH SOLN 5 ML OU SCH (10:55)
[2016-08-06] MEDS: GUAIFENESIN 600 MG TABLET.SA PO SCH ×2 (11:15→22:18)
[2016-08-06] MEDS: TIOTROPIUM BROMIDE DPI 5 CAP/KIT (18 MCG/CAP) IH SCH (14:59)
[2016-08-06] MEDS: FLUCONAZOLE 100 MG TABLET PO SCH (16:50)
--- NOTE | 2016-08-06 17:54 | PDOC DISCHARGE SUMMARY ---
General - Admit/Disc Date/PCP Admission Date/Primary Care Provider: 07/29/16 23:08 Danna Camarillo [facility] Discharge Date: 08/07/16 - Discharge Diagnosis (1) Bronchitis, mucopurulent recurrent Is this a current diagnosis for this admission?: YesSummary: culture grew MRSA Patient was discharged on doxycycline 100 mg by mouth twice a day for 14 days She was treated with vancomycin during her hospital stay (2) COPD exacerbation Is this a current diagnosis for this admission?: YesSummary: Has improved; patient was treated during the hospital stay with nebs and steroids Patient was discharged on 20 mg of prednisone by mouth for 1 week; and prednisone to be tapered to 10 mg daily (3) Paroxysmal atrial fibrillation with RVR Is this a current diagnosis for this admission?: YesSummary: Cardizem dose was increased to 240 mg by mouth every 12 At discharge patient's rate is controlled Patient is chronically anticoagulated on Eliquis (4) UTI (urinary tract infection) Is this a current diagnosis for this admission?: YesSummary: 2 gram-negative were isolated in the urine, sensitive to cefepime She should be treated for 15 days (5) Acute on chronic respiratory failure with hypoxia and hypercapnia Is this a current diagnosis for this admission?: YesSummary: Patient is O2 dependent continue O2 supplementation (7) CKD (chronic kidney disease), stage III Is this a current diagnosis for this admission?: YesSummary: CK disease stage III Day prior to discharge her creatinine was 1.4 Vancomycin was discontinued Suggest to repeat a BMP in a week (8) Opiate dependence, continuous Is this a current diagnosis for this admission?: YesSummary: Continue prior fentanyl patch (9) Swelling of left lower extremity Is this a current diagnosis for this admission?: YesSummary: Left lower extremity was extremely swollen DVT study was negative Swelling likely to be secondary to venous stasis (10) Dysphagia Is this a current diagnosis for this admission?: YesSummary: Patient has dysphagia for solids Barium swallow showed stricture of the distal esophagus likely to be secondary to esophagitis Patient should continue PPI twice a day If dysphagia worsens patient should be evaluated by bunch maker hand and undergo endoscopy (11) Fungal dermatitis Is this a current diagnosis for this admission?: YesSummary: Patient was treated with nystatin powder and fluconazole (12) Morbid obesity with BMI of 40.0-44.9, adult Is this a current diagnosis for this admission?: Yes - Additional Information Resuscitation Status: Do Not Resuscitate - Portable document care home, as has been the case in the past, and confirmed by ER nurses. Will follow this directive. Home Medications: Fluticasone Propionate [Flonase Nasal [place] 50 Mcg/[place] 16 gm] 2 spray IH Q12 04/02/15 Olopatadine HCl [Patanol 0.1% Oph Soln 5 ml] 1 drop BTH_EYE DAILY 04/02/15 Tiotropium [place] [Spiriva Handihaler 18 mcg/dose (30 Dose)] 1 cap IH DAILY 09/12 Sennosides/Docusate 8.6-50 mg [Senna Plus Tablet] 1 each PO BID #60 tablet 04/06 Apixaban [Eliquis 2.5 mg Tablet] 2.5 mg PO BID 09/09/15 Cetirizine HCl [Zyrtec 10 mg Tablet] 10 mg PO QHS 09/09/15 Montelukast Sodium [Singulair 10 mg Tablet] 10 mg PO DAILY 09/09/15 Polyethylene Glycol 3350 [Miralax Powder 17 gm/Packet] 1 packet PO BID 11/07/15 Simethicone [Gas-X] 80 mg PO DAILYP PRN 11/07/15 Melatonin 5 mg PO QHS 11/13/15 Clonidine HCl [Catapres 0.2 mg Tablet] 0.2 mg PO Q12 01/05/16 Duloxetine HCl [Cymbalta] 90 mg PO DAILY 01/05/16 Ferrous Sulfate [Feosol] 325 mg PO BID 01/05/16 Saccharomyces Boulardii [Florastor] 250 mg PO BID 01/05/16 Budesonide [Pulmicort Neb 0.5 mg/2 ml Ampul] 0.5 mg NEB RTQ12 ampul.neb Bupropion HCl [Wellbutrin 75 mg Tablet] 75 mg PO DAILY tablet 01/10/16 Albuterol Sulfate [Ventolin 0.083% Neb 2.5 mg/3 mL Ampul] 2.5 mg NEB RTQ6 PRN Ipratropium [place] [Atrovent 0.06% Nasal [place]] 1 spray NASL BID 02/12/16 Potassium Chloride [Klor-Con 10 Meq Tablet.sa] 20 meq PO Q12 tablet.sa Hydrocortisone Acetate [Hydrocortisone] 1 applic TOP Q8 04/18/16 Mag Oxide/D3/Turmeric Rt Xt [Magnesium-Vit D3-Turmeric Cap] 400 mg PO BID Baclofen [Baclofen 10 mg Tablet] 10 mg PO TID #20 tablet 04/23/16 Lidocaine [Lidoderm 5% (700 mg) Transdermal Patch] 3 patch TP DAILY #7 adh..patch 04/23/16 Omeprazole Magnesium [Prilosec Otc] 20 mg PO QAM 06/10/16 Furosemide [Lasix 40 mg Tablet] 40 mg PO BID tablet 06/15/16 Guaifenesin [Mucinex Sr 600 mg Tablet.sa] 1,200 mg PO Q12 tablet.sa 06/15/16 Insulin Glargine,Hum.rec.anlog [Lantus] 20 unit SQ QAM #1 vial 06/16/16 Metformin HCl 500 mg PO BID #60 tablet 06/16/16 Sitagliptin Phosphate [Januvia 50 mg Tablet] 50 mg PO BIDACBS tablet 06/16/16 Acetaminophen [Tylenol 325 mg Tablet] 650 mg PO Q4HP PRN 07/12/16 Alprazolam [Xanax 0.25 mg Tablet] 0.25 mg PO TID #15 tablet 07/23/16 Benzonatate [Tessalon Perles 100 mg Capsule] 200 mg PO Q8 capsule 07/23/16 Magnesium Hydroxide [Milk of Magnesia 30 ml Udcup] 30 ml PO Q6HP PRN udc Na Phos,M-B/Na Phos,Di-Ba [Fleet Enema (Adult) 133 ml] 133 ml [place] DAILYP PRN enema 07/23/16 Oxycodone HCl [Oxycodone HCl 10 MG Tablet] 10 mg PO Q6 #20 tablet 07/23/16 Cefepime 1 gm/D5w RTU [Maxipime RTU 1 gm/D5w 50 ml Premix Bag] 1 gm IV DAILY # 15 rtupb 08/06/16 Diltiazem HCl [Cardizem Cd 240 mg Capsule.cr] 240 mg PO Q12 #60 capsule.cr 08/06 Doxycycline Hyclate 100 mg PO BID #30 tablet 08/06/16 Fentanyl [Duragesic 50 Mcg/Hr Transdermal Patch] 1 each TD Q3DAYS #8 patch.td72 08/06/16 Fentanyl [Duragesic 50 Mcg/Hr Transdermal Patch] 1 each TD Q3DAYS #8 patch.td72 08/06/16 Fluconazole [Diflucan 100 mg Tablet] 100 mg PO QPM #15 tablet 08/06/16 Gabapentin [Neurontin 300 mg Capsule] 300 mg PO BID #60 capsule 08/06/16 Glipizide [Glucotrol 5 mg Tablet] 5 mg PO QAM #30 tablet 08/06/16 Insulin Lispro [Humalog Insulin (Lispro) 100 unit/mL] 0 - 12 unit SUBCUT ACHSP PRN #1 unit 08/06/16 Lactulose [Cephulac Syrup 20 gm/30 ml Udcup] 20 gm PO BID #1 udc 08/06/16 Nystatin [Mycostatin Topical Powder 15 gm] 1 applic TP BID #1 bottle 08/06/16 Prednisone [Deltasone 20 mg Tablet] 20 mg PO DAILY #15 tablet 08/06/16 Pregabalin [Lyrica 100 mg Capsule] 100 mg PO DAILY #30 capsule 08/06/16 History of Present Illness Patient complains of: Shortness of breath History of Present Illness: PORSHA WALDRON is a 71 year old female obese diabetic female, with underlying asthma and 24/7 3 L per nasal cannula oxygen-dependent COPD, along with underlying obstructive sleep apnea, diabetes mellitus, and multiple other comorbidities, well known to the hospitalist service for multiple admissions for respiratory problems and/or recurrent urinary tract infections, who presents to the emergency room for evaluation of above complaint. She describes a 2 day history or so of slowly progressive difficulty breathing, subjective fever, increased cough, gradually producing more and more sputum. Hospitalized on our service the through the of this month with final diagnoses including acute on chronic respiratory failure with hypoxia and hypercapnia along with bronchiectasis, and MRSA infection, along with multiple other diagnoses. 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 Infectious diseases at [facility] was consulted. She was covered with a 10 day course of tobramycin nebulizer and intravenous gentamicin. She did make the comment that upon transfer back to [facility], she felt "the best I' ve felt in a while." Hospital Course Hospital Course: see above Physical Exam Vital Signs: Temp Pulse Resp BP Pulse Ox 97.9 F 77 17 130/67 H 99 08/06/16 00:51 08/06/16 14:34 08/06/16 14:34 08/06/16 11:40 08/06/16 11:40 Intake & Output 08/05/16 08/06/16 08/07/16 00:59 00:59 00:59 Intake Total 1856 1885 880 Output Total 3150 3050 1400 Balance -1294 -1165 -520 Weight 110.2 kg 108 kg 105 kg General appearance: PRESENT: morbidly obese Head exam: PRESENT: atraumatic, normocephalic Eye exam: PRESENT: conjunctiva pink, EOMI, PERRLA. ABSENT: scleral icterus Neck exam: ABSENT: carotid bruit, JVD, lymphadenopathy, thyromegaly Respiratory exam: PRESENT: decreased breath sounds. ABSENT: rales, rhonchi, wheezes Pulses: PRESENT: normal dorsalis pedis pul Vascular exam: PRESENT: normal capillary refill GI/Abdominal exam: PRESENT: normal bowel sounds, soft. ABSENT: distended, guarding, mass, organolmegaly, rebound, tenderness Extremities exam: PRESENT: full ROM, +2 edema - Left lower extremity. ABSENT: calf tenderness, clubbing, pedal edema Neurological exam: PRESENT: alert, awake, oriented to person, oriented to place , oriented to time, oriented to situation, CN II-XII grossly intact. ABSENT: motor sensory deficit Psychiatric exam: PRESENT: appropriate affect, normal mood. ABSENT: homicidal ideation, suicidal ideation Results Laboratory Results: 08/06/16 05:00 08/06/16 05:00 08/06/16 08/06/16 05:00 05:00 WBC 10.4 RBC 4.01 Hgb 11.5 L Hct 34.3 L MCV 86 MCH 28.5 MCHC 33.4 RDW 15.0 H Plt Count 224 Seg Neutrophils % Not Reportable Lymphocytes % Not Reportable Monocytes % Not Reportable Eosinophils % Not Reportable Basophils % Not Reportable Absolute Neutrophils Not Reportable Absolute Lymphocytes Not Reportable Absolute Monocytes Not Reportable Absolute Eosinophils Not Reportable Absolute Basophils Not Reportable Sodium 137.1 Potassium 4.7 Chloride 87 L Carbon Dioxide 40 H* Anion Gap 10 BUN 37 H Creatinine 1.42 H Est GFR ( Amer) 44 L Est GFR (Non-Af Amer) 36 L Glucose 138 H Calcium 9.5 08/01/16 06:30 Catheterized Urine Urine Culture - Final Providencia Stuartii Pseudomonas Aeruginosa 07/30/16 07/30/16 00:45 06:45 Troponin I 0.051 0.047 08/06/16 08/06/16 05:00 05:00 Hgb 11.5 L Hct 34.3 L MCV 86 BUN 37 H Creatinine 1.42 H 07/30/16 05:30 Gram Stain - Final Sputum Sputum Culture - Final Mrsa (Meth Resis Staph Aureus) C.albicans/C.dubliniensis Normal Catarina 07/30/16 00:45 Blood Culture - Final Blood NO GROWTH IN 5 DAYS 07/29/16 18:30 Blood Culture - Final Blood NO GROWTH IN 5 DAYS Using another was MSSA right by her is still not with a very deep Impressions: Chest X-Ray 07/29/16 17:21 IMPRESSION: Minimal lingular atelectasis. Esophagus X-Ray 08/01/16 08:00 IMPRESSION: Very limited study. No retained food bolus. Prominent tertiary contractions. Gastroesophageal reflux. Plan Discharge Plan: Transferred back to care home Suggest repeat BMP in a week Patient to have repeat urine culture in 2 weeks Time Spent: Greater than 30 Minutes
[2016-08-06 20:36] LABS: CREATININE RESULT 1.34 mg/dL (0.52-1.25)
[2016-08-06] MEDS: PHARMACY COMMUNICATION ORDER MC SCH (22:00)
[2016-08-06] MEDS: MONTELUKAST SODIUM 10 MG TABLET PO SCH (22:18)
[2016-08-06] MEDS: DOXYCYCLINE HYCLATE 100 MG TABLET PO SCH (22:31)
[2016-08-07] MEDS: OXYCODONE HCL IR 5 MG TABLET PO SCH ×3 (00:01→11:55)
[2016-08-07 05:36] LABS: BLOOD UREA NITROGEN 40 mg/dL (7-20); CALCIUM 9.5 mg/dL (8.4-10.2); CHLORIDE 89 mmol/L (98-107); CREATININE RESULT 1.19 mg/dL (0.52-1.25); GLUCOSE 115 mg/dL (75-110); POTASSIUM 4.4 mmol/L (3.6-5.0); SODIUM 138.9 mmol/L (137-145)
[2016-08-07 05:44] LABS: ANION GAP 11 (5-19)
[2016-08-07 05:48] LABS: CARBON DIOXIDE 39 mmol/L (22-30)
[2016-08-07] MEDS: SIMETHICONE 80 MG TAB.CHEW PO PRN (06:47)
[2016-08-07] MEDS: LANSOPRAZOLE 15 MG TAB.RAP.DR PO SCH (06:47)
[2016-08-07] MEDS: GUAIFENESIN SYRP 200 MG/10 ML UDC PO PRN (07:42)
[2016-08-07] MEDS: GLIPIZIDE 5 MG TABLET PO SCH (07:43)
[2016-08-07] MEDS: INSULIN GLARGINE,HUM.REC.ANLOG 300 UNIT/3 ML INSULN.PEN SUBCUT SCH (07:43)
[2016-08-07] MEDS: BUDESONIDE NEB 0.5 MG/2 ML AMPUL NEB SCH (08:33)
[2016-08-07] MEDS: IPRATROPIUM/ALBUTEROL 0.5-2.5 MG/3 ML AMPUL NEB SCH ×2 (08:33→13:58)
[2016-08-07] MEDS: OLOPATADINE HCL 0.1% OPH SOLN 5 ML OU SCH (09:38)
[2016-08-07] MEDS: IPRATROPIUM BROMIDE 0.06% NASAL SPRAY 15 ML NASL SCH (09:39)
[2016-08-07] MEDS: FLUTICASONE NASAL SPRAY 50 MCG/SPRY 120 SPRAY/16 GM NASL SCH (09:39)
[2016-08-07] MEDS: NYSTATIN TOPICAL POWDER 15 GM TP SCH (09:40)
[2016-08-07] MEDS: LACTULOSE SYRUP 20 GM/30 ML UDCUP PO SCH (09:48)
[2016-08-07] MEDS: POLYETHYLENE GLYCOL 3350 POWDER 17 GM/1 PACKET PO SCH (09:49)
[2016-08-07] MEDS: LIDOCAINE 5% (700 MG) TRANSDERMAL ADH..PATCH TP SCH (09:49)
[2016-08-07] MEDS: DOXYCYCLINE HYCLATE 100 MG TABLET PO SCH (09:49)
[2016-08-07] MEDS: TIOTROPIUM BROMIDE DPI 5 CAP/KIT (18 MCG/CAP) IH SCH (09:49)
[2016-08-07] MEDS: POTASSIUM CHLORIDE 10 MEQ TABLET.SA PO SCH (09:50)
[2016-08-07] MEDS: ALPRAZOLAM 0.25 MG TABLET PO SCH ×2 (09:51→13:08)
[2016-08-07] MEDS: DILTIAZEM HCL 240 MG CAPSULE.CR PO SCH (09:51)
[2016-08-07] MEDS: PREGABALIN 100 MG CAPSULE PO SCH (09:51)
[2016-08-07] MEDS: LACTOBACILLUS ACIDOPHILUS 250 MG TAB PO SCH (09:51)
[2016-08-07] MEDS: APIXABAN 2.5 MG TABLET PO SCH (09:51)
[2016-08-07] MEDS: SENNOSIDES/DOCUSATE 8.6-50 MG 1 EACH TABLET PO SCH (09:51)
[2016-08-07] MEDS: PREDNISONE 20 MG TABLET PO SCH (09:52)
[2016-08-07] MEDS: METFORMIN HCL 500 MG TABLET PO SCH (09:52)
[2016-08-07] MEDS: DULOXETINE HCL 30 MG CAPSULE.DR PO SCH (09:52)
[2016-08-07] MEDS: GABAPENTIN 300 MG CAPSULE PO SCH (09:52)
[2016-08-07] MEDS: CLONIDINE HCL 0.2 MG TABLET PO SCH (09:52)
[2016-08-07] MEDS: MAGNESIUM OXIDE 400 MG TABLET PO SCH (09:52)
[2016-08-07] MEDS: BACLOFEN 10 MG TABLET PO SCH (09:53)
[2016-08-07] MEDS: BUPROPION HCL 75 MG TABLET PO SCH (09:53)
[2016-08-07] MEDS: FUROSEMIDE 40 MG TABLET PO SCH (09:53)
[2016-08-07] MEDS ORDERED: CEFEPIME 1 GM/D5W RTU 50 ML IV SCH (10:00)
[2016-08-07] MEDS: SITAGLIPTIN PHOSPHATE 25 MG TABLET PO SCH (10:02)
[2016-08-07] MEDS: GUAIFENESIN 600 MG TABLET.SA PO SCH (10:06)
[2016-08-07 12:54] VITALS: BP 135/67
--- NOTE | 2016-08-07 18:56 | PDOC PROGRESS REPORT ---
Subjective Progress Note for:: 08/07/16 Subjective:: Patient was admitted to the hospital for pneumonia treated with appropriate antibiotics and found to have MRSA in her sputum and pseudomonas in her urine. She tolerated treatment without difficulty. She has progressive that she is clinically stable for transfer back to the [facility] facility with continued IV antibiotics for the pseudomonas and oral antibiotics for the bronchitis. Please see Dr. Medrano discharge summary from yesterday for full details. I found the patient hemodynamically stable, sitting upright in bed alert and oriented to person place and time, no obvious JVD, oral mucosa is moist, she moves all 4 extremities. Commands, there is chronic lower extremity edema trace to 1+ ankles unchanged from baseline, she is in no respiratory distress able to speak in complete sentences without positive for respiration and no increased work of breathing. This time patient is stable for transfer back to [facility] facility. Physical Exam Vital Signs: Temp Pulse Resp BP Pulse Ox 98.0 F 81 16 135/67 H 98 08/07/16 11:22 08/07/16 13:58 08/07/16 13:58 08/07/16 11:22 08/07/16 13:58 Intake & Output 08/06/16 08/07/16 08/08/16 06:59 06:59 06:59 Intake Total 2417 6235 350 Output Total 3750 4925 1000 Balance -1333 1310 -650 Weight 105 kg 106.8 kg Results Laboratory Results: 08/06/16 05:00 08/07/16 05:00 08/06/16 08/07/16 19:45 05:00 Sodium 138.9 Potassium 4.4 Chloride 89 L Carbon Dioxide 39 H Anion Gap 11 BUN 40 H Creatinine 1.34 H 1.19 Est GFR ( Amer) 47 L 54 L Est GFR (Non-Af Amer) 39 L 44 L Glucose 115 H Calcium 9.5 07/30/16 07/30/16 00:45 06:45 Troponin I 0.051 0.047 Reviewed and stable Impressions: Chest X-Ray 07/29/16 17:21 IMPRESSION: Minimal lingular atelectasis. Esophagus X-Ray 08/01/16 08:00 IMPRESSION: Very limited study. No retained food bolus. Prominent tertiary contractions. Gastroesophageal reflux. Status: Imported from PACS
== END 2016-08-07 16:07 | DRG 190 ==
LOC: ER 16:01 → EH 20:26 → UNDOADMOB 20:26 → EH 23:08 → OBSVTOIN 23:08 → 3W 07-30 00:09
PROVIDERS: ADMIT Family Medicine; ATTEND Family Medicine
DX: J41.1 Mucopurulent chronic bronchitis (principal); J96.22 Acute and chronic respiratory failure with hypercapnia; J96.21 Acute and chronic respiratory failure with hypoxia; N39.0 Urinary tract infection, site not specified; Z68.41 Body mass index [BMI] 40.0-44.9, adult; F11.20 Opioid dependence, uncomplicated; I48.0 Paroxysmal atrial fibrillation; B96.5 Pseudomonas (aeruginosa) (mallei) (pseudomallei) as the cause of diseases classified elsewhere; B96.89 Other specified bacterial agents as the cause of diseases classified elsewhere; N18.3 Chronic kidney disease, stage 3 (moderate); R13.10 Dysphagia, unspecified; M79.89 Other specified soft tissue disorders; B36.9 Superficial mycosis, unspecified; G47.33 Obstructive sleep apnea (adult) (pediatric); E66.01 Morbid (severe) obesity due to excess calories; Z79.899 Other long term (current) drug therapy; Z79.4 Long term (current) use of insulin; Z86.14 Personal history of Methicillin resistant Staphylococcus aureus infection; Z99.81 Dependence on supplemental oxygen; Z66 Do not resuscitate
CPT/HCPCS: 36415; 71020; 74220; 80048; 80053; 80170; 80202; 81001; 82550; 82553; 82565; 82803; 82962; 83735; 83880; 84443; 84484; 85025; 85027; 87040; 87070; 87077; 87086; 87088; 87186; 87205; 93005; 93010; 93971; 94640; 94660; 94799; 99285; J0692; J0743; J1335; J1580; J1642; J1815; J2270; J2997; J3370; J3490; J7030; J7060; J7512; J7620; J7685; S0164

== ENCOUNTER 2016-08-16 21:05 | Emergency (ER) | payer MEDICARE, MEDICAID ==
[2016-08-16 21:44] LABS: ABSOLUTE EOSINOPHILS # (AUTO) 0.1 10^3/uL (0.0-0.6); ABSOLUTE LYMPHOCYTES (AUTO) 1.1 10^3/uL (0.5-4.7); ABSOLUTE MONOCYTES (AUTO) 0.8 10^3/uL (0.1-1.4); ABSOLUTE NEUT (AUTO) 7.2 10^3/uL (1.7-8.2); BASOPHILS % (AUTO) 0.3 % (0-2); EOSINOPHILS % (AUTO) 0.6 % (0-6); HEMATOCRIT 33.9 % (36.0-47.0); HEMOGLOBIN 11.2 g/dL (12.0-15.5); HGB HCT DIFFERENCE -0.3; LYMPHOCYTES % (AUTO) 11.5 % (13-45); MEAN CORPUSCULAR HEMOGLOBIN 28.8 pg (27.0-33.4); MEAN CORPUSCULAR VOLUME 87 fl (80-97); RED BLOOD COUNT 3.88 10^6/uL (3.72-5.28); RED CELL DISTRIBUTION WIDTH 15.8 % (11.5-14.0); SEGMENTED NEUTROPHILS % (AUTO) 78.6 % (42-78); WHITE BLOOD COUNT 9.2 10^3/uL (4.0-10.5)
[2016-08-16 21:46] LABS: PROTHROMBIN TIME 13.1 SEC (11.4-15.4)
[2016-08-16 22:01] LABS: ALANINE AMINOTRANSFERASE 39 U/L (9-52); ALBUMIN 3.4 g/dL (3.5-5.0); ALKALINE PHOSPHATASE 98 U/L (38-126); ANION GAP 10 (5-19); ASPARTATE AMINO TRANSFERASE 22 U/L (14-36); BILIRUBIN,TOTAL 0.3 mg/dL (0.2-1.3); BLOOD UREA NITROGEN 41 mg/dL (7-20); CALCIUM 9.6 mg/dL (8.4-10.2); CARBON DIOXIDE 31 mmol/L (22-30); CHLORIDE 98 mmol/L (98-107); CREATINE KINASE 32 U/L (30-135); CREATININE RESULT 1.26 mg/dL (0.52-1.25); GLUCOSE 144 mg/dL (75-110); POTASSIUM 3.8 mmol/L (3.6-5.0); SODIUM 139.2 mmol/L (137-145); TOTAL PROTEIN 6.6 g/dL (6.3-8.2)
[2016-08-16 22:13] LABS: CREATINE KINASE MB 1.72 ng/mL (<4.55)
[2016-08-16 22:15] LABS: TROPONIN I 0.043 ng/mL
--- NOTE | 2016-08-16 23:38 | ER Document Report ---
ED Cardiac - General Chief Complaint: Chest Tightness Stated Complaint: CHEST PAIN Time seen by provider: 23:37 Mode of Arrival: Stretcher Information source: Patient TRAVEL OUTSIDE OF THE [place] IN LAST 30 DAYS: No - HPI Patient complains to provider of: Chest tightness Was the onset of pain: Sudden Is the pain a: Chronic problem Quality of pain: Tightness Severity now: None Severity at worst: Moderate Pain level currently: Denies Chest pain precipitating factors: At Rest Positive cardiac history: Yes Exacerbated by: Denies Relieved by: Nothing Similar symptoms previously: Yes Recently seen / treated by doctor: Yes Notes: Patient is a 71-year-old female who presents to the emergency room complaining of palpitations that started just prior to arrival and lasted approximately 30- 45 minutes, resolved without intervention, she reports a history of atrial fibrillation with similar symptoms previously, she was recently admitted to this hospital for this, states this is the first time since being discharged she had an episode, during the episode of atrial fibrillation she felt squeezing chest pain and the sensation of her heart pounding, at time of my evaluation she reports feeling much better and has no symptoms, she reports that she previously was taking Cardizem 240 mg twice daily, but at the long term today they started to give it to her as 120 mg doses 4 times a day, she believes this is likely why she had an episode this evening - Related Data Allergies/Adverse Reactions: Sulfa (Sulfonamide Antibiotics) Allergy (Intermediate, Verified 07/29/16 21:27) adhesive tape Allergy (Verified 07/29/16 21:27) atorvastatin calcium [From Lipitor] Allergy (Verified 07/29/16 21:27) celecoxib [From Celebrex] Allergy (Verified 07/29/16 21:27) Past Medical History - General Information source: Patient - Social History Smoking Status: Never Smoker Family History: Arthritis, CAD, CVA, DM, Hypertension - Past Medical History Cardiac Medical History: Reports: Hx Atrial Fibrillation, Hx Congestive Heart Failure - Diastolic dysfunction, Hx Heart Attack, Hx Hypertension - essential, Hx Pulmonary Embolism, Hx Heart Murmur Denies: Hx Coronary Artery Disease, Hx DVT, Hx Hypercholesterolemia, Hx Peripheral Vascular Disease Pulmonary Medical History: Reports: Hx Asthma, Hx Bronchitis, Hx COPD, Hx Pneumonia - Recurrent MRSA pneumonia., Hx Sleep Apnea - Uses C Pap Denies: Hx Tuberculosis Neurological Medical History: Denies: Hx Seizures Endocrine Medical History: Reports: Hx Diabetes Mellitus Type 2. Denies: Hx Diabetes Mellitus Type 1, Hx Hyperthyroidism, Hx Hypothyroidism Renal/ Medical History: Reports: Hx Renal Insufficiency GI Medical History: Reports: Hx Gastroesophageal Reflux Disease, Hx Hiatal Hernia. Denies: Hx Cirrhosis, Hx Hepatitis Musculoskeltal Medical History: Reports Hx Arthritis, Reports Hx Fibromyalgia, Reports Hx Gout, Reports Hx Muscle Weakness Skin Medical History: Denies Hx Eczema, Denies Hx Psoriasis Psychiatric Medical History: Reports: Hx Anxiety, Hx Depression Infectious Medical History: Reports: Hx MRSA. Denies: Hx Hepatitis Past Surgical History: Reports: Hx Appendectomy, Hx Cholecystectomy, Hx Hysterectomy, Hx Orthopedic Surgery - Multiple left hip procedures, 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 - Immunizations Hx Diphtheria, Pertussis, Tetanus Vaccination: Yes Hx Pneumococcal Vaccination: 05/20/13 Review of Systems - Review of Systems Constitutional: No symptoms reported EENT: No symptoms reported Cardiovascular: Chest pain, Palpitations, Heart racing Respiratory: No symptoms reported Gastrointestinal: No symptoms reported Genitourinary: No symptoms reported Female Genitourinary: No symptoms reported Musculoskeletal: No symptoms reported Skin: No symptoms reported Hematologic/Lymphatic: No symptoms reported Neurological/Psychological: No symptoms reported -: Yes All other systems reviewed and negative Physical Exam - Vital signs Vitals: Temp 98.6 F 08/16/16 21:09 Interpretation: Normal - General General appearance: Appears well, Alert - HEENT Head: Normocephalic, Atraumatic Eyes: Normal Pupils: PERRL - Respiratory Respiratory status: No respiratory distress Chest status: Nontender Breath sounds: Normal Chest palpation: Normal - Cardiovascular Rhythm: Irregularly irregular Heart sounds: Normal auscultation Murmur: No - Abdominal Inspection: Normal Distension: No distension Bowel sounds: Normal Tenderness: Nontender Organomegaly: No organomegaly - Back Back: Normal, Nontender - Extremities General upper extremity: Normal inspection, Nontender, Normal color, Normal ROM , Normal temperature General lower extremity: Normal inspection, Nontender, Edema, Normal color, Normal ROM, Normal temperature. No: Tavo's sign - Neurological Neuro grossly intact: Yes Cognition: Normal Orientation: AAOx4 [place] Coma Scale Eye Opening: Spontaneous Duy Coma Scale Verbal: Oriented [place] Coma Scale Motor: Obeys Commands Duy Coma Scale Total: 15 Speech: Normal Motor strength normal: LUE, RUE, LLE, RLE Sensory: Normal - Psychological Associated symptoms: Normal affect, Normal mood - Skin Skin Temperature: Warm Skin Moisture: Dry Skin Color: Normal Course - Re-evaluation Re-evalutation: 08/17/16 03:20 Patient with paroxysmal A. fib, episode lasted 30-45 minutes this evening, and then resolved without intervention, she has a history of A. fib previously, is currently on Cardizem for this although she tells me that they changed her dosing from 240 twice a day to 120 four times a day, likely the cause of her episodes this evening, patient was advised to continue taking 240 mg twice a day , follow up with her nutrition services manager in one to 2 days or return if symptoms worsen , patient acknowledges understanding and agreement with this plan - Vital Signs Vital signs: Temp Pulse Resp BP Pulse Ox 98.6 F 18 145/74 H 96 08/16/16 21:09 08/17/16 00:33 08/17/16 00:33 08/17/16 00:33 - Laboratory Result Diagrams: 08/16/16 21:20 08/16/16 21:20 Laboratory results interpreted by me: 08/16/16 08/16/16 21:20 21:20 Hgb 11.2 L Hct 33.9 L RDW 15.8 H Seg Neutrophils % 78.6 H Lymphocytes % 11.5 L Carbon Dioxide 31 H BUN 41 H Creatinine 1.26 H Est GFR ( Amer) 50 L Est GFR (Non-Af Amer) 42 L Glucose 144 H Albumin 3.4 L - Diagnostic Test Radiology reviewed: Image reviewed, Reports reviewed - EKG Interpretation by Me Rate: Normal Rhythm: A.Fib Discharge - Discharge Clinical Impression: Paroxysmal atrial fibrillation with RVR Condition: Stable Disposition: HOME, SELF-CARE Instructions: Atrial Fibrillation ([facility]) Additional Instructions: Follow up with your primary care provider in one to 2 days. Return to the emergency room immediately if symptoms worsen or any additional concerns. Referrals: MUSA HODGSON MD [Primary Care Provider] - Follow up as needed
[2016-08-17 00:44] VITALS: BP 145/74
--- NOTE | 2016-08-17 12:39 | EKG REPORT ---
SEVERITY:- ABNORMAL ECG - SINUS RHYTHM WITH FREQUENT APCs LEFT ANTERIOR FASCICULAR BLOCK LVH WITH SECONDARY REPOLARIZATION ABNORMALITY : Confirmed by: Jung Olvera 17-Aug-2016 12:38:36
== END 2016-08-17 00:45 | disposition home or self-care (01) ==
LOC: ER 21:05
DX: I48.0 Paroxysmal atrial fibrillation (principal); R07.89 Other chest pain; I25.2 Old myocardial infarction; I10 Essential (primary) hypertension; J45.909 Unspecified asthma, uncomplicated; J44.9 Chronic obstructive pulmonary disease, unspecified; E11.9 Type 2 diabetes mellitus without complications; Z87.01 Personal history of pneumonia (recurrent); Z86.711 Personal history of pulmonary embolism; Z91.048 Other nonmedicinal substance allergy status; Z88.8 Allergy status to other drugs, medicaments and biological substances; Z88.2 Allergy status to sulfonamides; Z86.14 Personal history of Methicillin resistant Staphylococcus aureus infection
CPT/HCPCS: 36415; 36591; 71010; 80053; 82550; 82553; 83690; 84484; 85025; 85610; 93005; 93010; 99285

== ENCOUNTER 2016-08-24 15:42 | Inpatient (IN) | payer MEDICARE, MEDICAID ==
--- NOTE | 2016-08-24 16:28 | ER Document Report ---
ED Respiratory Problem - General Time seen by provider: 16:19 Mode of Arrival: Medic - Friendly Information source: Patient, Emergency Med Personnel TRAVEL OUTSIDE OF THE [place] IN LAST 30 DAYS: No - HPI Patient complains to provider of: CHF, COPD, Cough, Short of breath Onset: Other - see HPI note Context: Hx CHF, Hx COPD Cough: Productive At home treatment: Oxygen EMS treatments: Oxygen <SERGIO MEZA - Last Filed: 08/24/16 17:34> <LANA GARCIA - Last Filed: 08/24/16 21:47> - General Stated Complaint: SHORTNESS OF BREATH Notes: Patient is a 71 year old female presenting to the emergency department for difficulty breathing. Patient has a history of COPD and has been to the emergency department several times in the past for this. Patient resides at [facility] [place]. Patient states that she is having increased difficulty breathing that started a few days ago. Patient states that she has been coughing up mucus which is a new symptom and she also has some new left lung pain. Patient states she had a fever of 104.2 F at [facility] and was given 2 Tylenol; patient's temperature was 99.9 F upon arrival. Patient is on 2-3 LPM of O2. Patient states she has been falling asleep a lot today. Friendly transport personnel state patient also has some edema to her lower extremities bilaterally. Patient is allergic to sulfa drugs. (SERGIO MEZA) - Related Data Allergies/Adverse Reactions: Sulfa (Sulfonamide Antibiotics) Allergy (Intermediate, Verified 07/29/16 21:27) adhesive tape Allergy (Verified 07/29/16 21:27) atorvastatin calcium [From Lipitor] Allergy (Verified 07/29/16 21:27) celecoxib [From Celebrex] Allergy (Verified 07/29/16 21:27) Past Medical History - General Information source: Patient, [facility] Records - Social History Smoking Status: Smoker,Current Status Unk Family History: Arthritis, CAD, CVA, DM, Hypertension - Past Medical History Cardiac Medical History: Reports: Hx Atrial Fibrillation, Hx Congestive Heart Failure - Diastolic dysfunction, Hx Heart Attack, Hx Hypertension - essential, Hx Pulmonary Embolism, Hx Heart Murmur Pulmonary Medical History: Reports: Hx Asthma, Hx Bronchitis, Hx COPD, Hx Pneumonia - Recurrent MRSA pneumonia., Hx Sleep Apnea - Uses C Pap Endocrine Medical History: Reports: Hx Diabetes Mellitus Type 2 Renal/ Medical History: Reports: Hx Renal Insufficiency GI Medical History: Reports: Hx Gastroesophageal Reflux Disease, Hx Hiatal Hernia Musculoskeltal Medical History: Reports Hx Arthritis, Reports Hx Fibromyalgia, Reports Hx Gout, Reports Hx Muscle Weakness Psychiatric Medical History: Reports: Hx Anxiety, Hx Depression Infectious Medical History: Reports: Hx MRSA Past Surgical History: Reports: Hx Appendectomy, Hx Cholecystectomy, Hx Hysterectomy, Hx Orthopedic Surgery - Multiple left hip procedures, 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 - Immunizations Hx Diphtheria, Pertussis, Tetanus Vaccination: Yes Hx Pneumococcal Vaccination: 05/20/13 <SERGIO MEZA - Last Filed: 08/24/16 17:34> Review of Systems - Review of Systems Constitutional: See HPI, Fever EENT: No symptoms reported Cardiovascular: No symptoms reported Respiratory: See HPI, Cough, Short of breath, Sputum, Wheezing Gastrointestinal: No symptoms reported Genitourinary: No symptoms reported Female Genitourinary: No symptoms reported Musculoskeletal: See HPI Skin: No symptoms reported Hematologic/Lymphatic: No symptoms reported Neurological/Psychological: No symptoms reported -: Yes All other systems reviewed and negative <SERGIO MEZA - Last Filed: 08/24/16 17:34> Physical Exam - Vital signs Interpretation: Tachycardic, Hypoxic - General General appearance: Alert In distress: Mild - HEENT Head: Normocephalic, Atraumatic Eyes: Normal Pupils: PERRL Mucous membranes: Moist - Respiratory Respiratory status: No respiratory distress Chest status: Nontender, Other - port in the right upper chest Breath sounds: Productive cough, Rales - in the left, Wheezing - in the apices bilaterally Chest palpation: Normal - Cardiovascular Rhythm: Regular, Tachycardia Heart sounds: Normal auscultation Murmur: No - Abdominal Inspection: Obese Distension: No distension Bowel sounds: Normal Tenderness: Nontender Organomegaly: No organomegaly - Back Back: Normal, Nontender - Extremities General upper extremity: Normal inspection, Normal ROM, Normal strength General lower extremity: Normal inspection, Edema - non-pitting edema bilaterally, Normal ROM, Normal strength - Neurological Neuro grossly intact: Yes Cognition: Normal Orientation: AAOx4 [place] Coma Scale Eye Opening: Spontaneous Duy Coma Scale Verbal: Oriented [place] Coma Scale Motor: Obeys Commands Duy Coma Scale Total: 15 Speech: Normal - Psychological Associated symptoms: Normal affect, Normal mood - Skin Skin Temperature: Hot Skin Moisture: Dry <SUSANASERGIO - Last Filed: 08/24/16 17:34> Course - Laboratory Result Diagrams: 08/24/16 16:28 08/24/16 16:28 - Consults Dr. Mendoza Time consulted: 17:02 Consulted provider: will see as inpatient <SERGIO MEZA - Last Filed: 08/24/16 17:34> - Laboratory Result Diagrams: 08/24/16 16:28 08/24/16 16:28 - Consults Dr. He Time consulted: 17:35 Consulted provider: will come to ER - Transfer of Care Care transferred to following provider: Neri <LANA GARCIA - Last Filed: 08/24/16 21:47> - Re-evaluation Re-evalutation: 08/24/16 21:44 Patient is a 71-year-old female with a history of COPD and CHF who comes in with a fever and productive cough that began 2-3 days ago. Patient initially was having some difficulty breathing and responded to nebulizer treatments. Patient then became very shaky and states she didn't feel well. Temperature is taken and patient with fever. Patient became very tired at that time and BiPAP was initiated for hypoxia. Patient responded well to BiPAP. Patient has DNR/ DNI paperwork but states that she would like to be intubated if necessary to maintain her airway. Patient is lucid at the time of this discussion. Repeat ABG is showing good response to BiPAP. Patient has been cultured and started on cefepime, Levaquin, and vancomycin for her left-sided pneumonia. COPD treated with Solu-Medrol, nebulizers, and magnesium. Patient was discussed with Dr. He and will be admitted to the ICU. (LANA GARCIA) - Vital Signs Vital signs: Temp Pulse Resp BP Pulse Ox 98.3 F 108 H 15 126/64 H 95 08/24/16 20:01 08/24/16 20:01 08/24/16 21:01 08/24/16 21:01 08/24/16 21:01 (LANA GARCIA) - Laboratory Laboratory results interpreted by me: 08/24/16 08/24/16 08/24/16 16:28 16:28 16:28 Hgb 11.1 L Hct 33.5 L RDW 16.3 H VBG pH 7.45 H VBG HCO3 34.5 H Chloride 96 L Carbon Dioxide 34 H BUN 27 H Est GFR ( Amer) 58 L Est GFR (Non-Af Amer) 48 L Total Protein 6.2 L Albumin 3.4 L (LANA GARCIA) - Consults Dr. Mendoza Reason for consultation: 08/24/16 17:[address] Mendoza for possible admission. Patient will be admitted and Dr. Mendoza will call back. (SERGIO MEZA) Dr. He Reason for consultation: 08/24/16 21:46 Admission to ICU (LANA GARCIA) Critical Care Note - Critical Care Note Total time excluding time spent on procedures (mins): 90 - evaluation and management of respiratory distress, multiple re-evaluations, diagnosis of pneumonia, initiation of BiPAP, coordination of admission to ICU, multiple re- evaluations, counseling of patient <LANA GARCIA - Last Filed: 08/24/16 21:47> Discharge <SERGIO MEZA - Last Filed: 08/24/16 17:34> - Discharge Admitting Provider: Karishma He Unit Admitted: ICU <LANA GARCIA - Last Filed: 08/24/16 21:47> - Discharge Clinical Impression: COPD exacerbation, Hypoxia Pneumonia Qualifiers: Pneumonia type: due to unspecified organism Laterality: left Lung location: lower lobe of lung Qualified Code(s): J18.1 - Lobar pneumonia, unspecified organism Condition: Stable Disposition: ADMITTED INPATIENT Scribe Attestation: 08/24/16 21:47 I personally performed the services described in the documentation, reviewed and edited the documentation which was dictated to the scribe in my presence, and it accurately records my words and actions. (LANA GARCIA) Scribe Documentation - Scribe Written by Scribe:: Sergio Mzea 08/24/16 17:40 acting as scribe for :: Debbie <SERGIO MEZA - Last Filed: 08/24/16 17:34>
[2016-08-24] MEDS ORDERED: IPRATROPIUM/ALBUTEROL 0.5-2.5 MG/3 ML AMPUL NEB ONE ×3 (16:32→17:49)
[2016-08-24] MEDS: MAGNESIUM SULFATE/D5W 100 ML IV SCH ×2 (16:38→19:48)
[2016-08-24 16:53] LABS: VENOUS BLOOD BASE EXCESS 9.1 mmol/L; VENOUS BLOOD HCO3 34.5 mmol/L (20-32); VENOUS BLOOD PCO2 50.3 mmHg (35-63); VENOUS BLOOD PH 7.45 (7.30-7.42)
--- NOTE | 2016-08-24 16:56 | EKG REPORT ---
SEVERITY:- ABNORMAL ECG - SINUS RHYTHM ATRIAL PREMATURE COMPLEX LEFT ANTERIOR FASCICULAR BLOCK PROBABLE LVH WITH SECONDARY REPOL ABNRM : Confirmed by: Yesenia Graham MD 24-Aug-2016 16:55:24
[2016-08-24 16:58] LABS: ABSOLUTE EOSINOPHILS # (AUTO) 0.1 10^3/uL (0.0-0.6); ABSOLUTE LYMPHOCYTES (AUTO) 1.5 10^3/uL (0.5-4.7); ABSOLUTE MONOCYTES (AUTO) 0.7 10^3/uL (0.1-1.4); BASOPHILS % (AUTO) 0.3 % (0-2); HEMATOCRIT 33.5 % (36.0-47.0); HEMOGLOBIN 11.1 g/dL (12.0-15.5); HGB HCT DIFFERENCE -0.2; LYMPHOCYTES % (AUTO) 16.1 % (13-45); MEAN CORPUSCULAR HEMOGLOBIN 29.3 pg (27.0-33.4); MEAN CORPUSCULAR HGB CONC 33.2 g/dL (32.0-36.0); MEAN CORPUSCULAR VOLUME 88 fl (80-97); RED CELL DISTRIBUTION WIDTH 16.3 % (11.5-14.0); SEGMENTED NEUTROPHILS % (AUTO) 74.6 % (42-78); WHITE BLOOD COUNT 9.4 10^3/uL (4.0-10.5)
[2016-08-24] MEDS ORDERED: VANCOMYCIN HCL INJ 1000 MG VIAL IV ONE (17:02)
[2016-08-24] MEDS ORDERED: LEVOFLOXACIN 750 MG/D5W RTU 150 ML IV ONE (17:02)
[2016-08-24] MEDS ORDERED: CEFEPIME 2 GM/D5W RTU 50 ML IV ONE (17:02)
[2016-08-24 17:09] LABS: PROTHROMBIN TIME 15.1 SEC (11.4-15.4)
[2016-08-24 17:19] LABS: ALANINE AMINOTRANSFERASE 34 U/L (9-52); ALBUMIN 3.4 g/dL (3.5-5.0); ALKALINE PHOSPHATASE 86 U/L (38-126); ANION GAP 10 (5-19); ASPARTATE AMINO TRANSFERASE 19 U/L (14-36); BILIRUBIN,TOTAL 0.7 mg/dL (0.2-1.3); BLOOD UREA NITROGEN 27 mg/dL (7-20); CALCIUM 9.6 mg/dL (8.4-10.2); CARBON DIOXIDE 34 mmol/L (22-30); CHLORIDE 96 mmol/L (98-107); CREATININE RESULT 1.12 mg/dL (0.52-1.25); GLUCOSE 97 mg/dL (75-110); POTASSIUM 3.6 mmol/L (3.6-5.0); SODIUM 140.3 mmol/L (137-145); TOTAL PROTEIN 6.2 g/dL (6.3-8.2)
[2016-08-24] MEDS ORDERED: ACETAMINOPHEN 650 MG SUPP.RECT PR ONE (17:39)
[2016-08-24] MEDS ORDERED: METHYLPREDNISOLONE INJ 125 MG/2 ML SDV IV ONE (17:49)
[2016-08-24 17:50] LABS: TROPONIN I 0.053 ng/mL
[2016-08-24] MEDS ORDERED: NORMAL SALINE 1000 ML 1,000 ML IV PRN (18:30)
[2016-08-24] MEDS ORDERED: VANCOMYCIN HCL 0 MG in DEXTROSE 5%-WATER 250 ML IV NR (18:45)
[2016-08-24] MEDS ORDERED: GENTAMICIN SULFATE 0 MG in DEXTROSE 5%-WATER 100 ML IV NR (18:45)
[2016-08-24] MEDS ORDERED: GLUCAGON,HUMAN RECOMB 1 MG INJ IM PRN (19:05)
[2016-08-24] MEDS ORDERED: DEXTROSE 50%-WATER 25 GM/50 ML DISP.SYRIN IV PRN ×2 (19:05)
[2016-08-24] MEDS ORDERED: DEXTROSE 40% GEL 15 GM TUBE PO PRN ×2 (19:05)
--- NOTE | 2016-08-24 19:09 | PDOC H&P ---
History of Present Illness Admission Date/PCP: MUSA HOGDSON MD Patient complains of: Shortness of breath and fever History of Present Illness: PORSHA WALDRON is a 71 year old female with multiple comorbid conditions currently a resident at [facility] just recently discharged from this facility for an MRSA bronchitis and multidrug resistant Pseudomonas urinary tract infection with underlying O2 and steroid dependent COPD, morbid obesity, obstructive sleep apnea CPAP dependent presents to the emergency department with a 2 to three-day history of progressive shortness of breath and cough productive of phlegm. She reported to staff at temperature of 104.2 at the facility and spiked a fever to 101 while in our emergency department according to my conversation with the ER physician. With her temperature she started having RIGORS, became confused and reportedly dropped her O2 sat 78% in spite of her usual supplemental O2; as a result she is now on BiPAP therapy with an FiO2 of 50% pressures of 14/6 and rate 12. She is currently lethargic, difficult to awaken for long periods of time and therefore unable to get a reliable review of systems her medical history at this time. According to the emergency room physician, and while in her right state of mind , she expressed her desire for intubation and wished to resend her community DO NOT RESUSCITATE. Evaluation in the emergency department is consistent with a left lower lobe pneumonia and acute on chronic hypoxic respiratory failure requiring admission to the ICU for further treatment and monitoring. Of note, in review of her previous cultures she grows extremely resistant organisms in her sputum including a carbopenem resistant Klebsiella susceptible only to gentamicin, MRSA, Cookie albicans, Moraxella paralysis, Pseudomonas aeruginosa among others. Past Medical History Cardiac Medical History: Reports: Atrial Fibrillation, Congestive Heart Failure - Diastolic dysfunction, Myocardial Infarction, Hypertension - essential, Pulmonary Embolism, Heart Murmur Denies: Coronary Artery Disease, DVT, Hyperlipidema, Peripheral Vascular Disease Pulmonary Medical History: Reports: Asthma, Bronchitis, Chronic Obstructive Pulmonary Disease (COPD), Pneumonia - Recurrent MRSA pneumonia., Sleep Apnea - Uses C Pap Denies: Tuberculosis Neurological Medical History: Denies: Seizures Endocrine Medical History: Reports: Diabetes Mellitus Type 2 Denies: Diabetes Mellitus Type 1, Hyperthyroidism, Hypothyroidism GI Medical History: Reports: Gastroesophageal Reflux Disease, Hiatal Hernia Denies: Cirrhosis, Hepatitis Musculoskeltal Medical History: Reports: Arthritis, Fibromyalgia, Gout Skin Medical History: Denies: Eczema, Psoriasis Psychiatric Medical History: Reports: Depression Hematology: Reports: Anemia Infectious Medical History: Reports: Methicillin-Resistant Staph Aureus Past Surgical History Past Surgical History: Reports: Appendectomy, Cholecystectomy, Hysterectomy, Orthopedic Surgery - Multiple left hip procedures, 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 Social History Smoking Status: Smoker,Current Status Unk Frequency of Alcohol Use: None Hx Recreational Drug Use: No Drugs: None Hx Prescription Drug Abuse: No - Advance Directive Resuscitation Status: Full Code - She willingly rescinded her DO NOT RESUSCITATE order. Family History Family History: Arthritis, CAD, CVA, DM, Hypertension Parental Family History Reviewed: Yes Children Family History Reviewed: Yes Sibling(s) Family History Reviewed.: Yes Medication/Allergy Home Medications: Fluticasone Propionate [Flonase Nasal [place] 50 Mcg/[place] 16 gm] 2 spray IH Q12 04/02/15 Olopatadine HCl [Patanol 0.1% Oph Soln 5 ml] 1 drop BTH_EYE DAILY 04/02/15 Tiotropium Paulina [Spiriva Handihaler 18 mcg/dose (30 Dose)] 1 cap IH DAILY 09/12 Sennosides/Docusate 8.6-50 mg [Senna Plus Tablet] 1 each PO BID #60 tablet 04/06 Apixaban [Eliquis 2.5 mg Tablet] 2.5 mg PO BID 09/09/15 Cetirizine HCl [Zyrtec 10 mg Tablet] 10 mg PO QHS 09/09/15 Montelukast Sodium [Singulair 10 mg Tablet] 10 mg PO DAILY 09/09/15 Polyethylene Glycol 3350 [Miralax Powder 17 gm/Packet] 1 packet PO BID 11/07/15 Simethicone [Gas-X] 80 mg PO DAILYP PRN 11/07/15 Melatonin 5 mg PO QHS 11/13/15 Clonidine HCl [Catapres 0.2 mg Tablet] 0.2 mg PO Q12 01/05/16 Duloxetine HCl [Cymbalta] 90 mg PO DAILY 01/05/16 Ferrous Sulfate [Feosol] 325 mg PO BID 01/05/16 Saccharomyces Boulardii [Florastor] 250 mg PO BID 01/05/16 Budesonide [Pulmicort Neb 0.5 mg/2 ml Ampul] 0.5 mg NEB RTQ12 ampul.neb Bupropion HCl [Wellbutrin 75 mg Tablet] 75 mg PO DAILY tablet 01/10/16 Albuterol Sulfate [Ventolin 0.083% Neb 2.5 mg/3 mL Ampul] 2.5 mg NEB RTQ6 PRN Ipratropium Paulina [Atrovent 0.06% Nasal [place]] 1 spray NASL BID 02/12/16 Potassium Chloride [Klor-Con 10 Meq Tablet.sa] 20 meq PO Q12 tablet.sa Hydrocortisone Acetate [Hydrocortisone] 1 applic TOP Q8 04/18/16 Mag Oxide/D3/Turmeric Rt Xt [Magnesium-Vit D3-Turmeric Cap] 400 mg PO BID Baclofen [Baclofen 10 mg Tablet] 10 mg PO TID #20 tablet 04/23/16 Lidocaine [Lidoderm 5% (700 mg) Transdermal Patch] 3 patch TP DAILY #7 adh..patch 04/23/16 Omeprazole Magnesium [Prilosec Otc] 20 mg PO QAM 06/10/16 Furosemide [Lasix 40 mg Tablet] 40 mg PO BID tablet 06/15/16 Guaifenesin [Mucinex Sr 600 mg Tablet.] 1,200 mg PO Q12 tablet. 06/15/16 Insulin Glargine,Hum.rec.anlog [Lantus] 20 unit SQ QAM #1 vial 06/16/16 Metformin HCl 500 mg PO BID #60 tablet 06/16/16 Sitagliptin Phosphate [Januvia 50 mg Tablet] 50 mg PO BIDACBS tablet 06/16/16 Acetaminophen [Tylenol 325 mg Tablet] 650 mg PO Q4HP PRN 07/12/16 Alprazolam [Xanax 0.25 mg Tablet] 0.25 mg PO TID #15 tablet 07/23/16 Benzonatate [Tessalon Perles 100 mg Capsule] 200 mg PO Q8 capsule 07/23/16 Magnesium Hydroxide [Milk of Magnesia 30 ml Udcup] 30 ml PO Q6HP PRN udc Na Phos,M-B/Na Phos,Di-Ba [Fleet Enema (Adult) 133 ml] 133 ml VA DAILYP PRN enema 07/23/16 Oxycodone HCl [Oxycodone HCl 10 MG Tablet] 10 mg PO Q6 #20 tablet 07/23/16 Cefepime 1 gm/D5w RTU [Maxipime RTU 1 gm/D5w 50 ml Premix Bag] 1 gm IV DAILY # 15 rtupb 08/06/16 Diltiazem HCl [Cardizem Cd 240 mg Capsule.cr] 240 mg PO Q12 #60 capsule.cr 08/06 Doxycycline Hyclate 100 mg PO BID #30 tablet 08/06/16 Fentanyl [Duragesic 50 Mcg/Hr Transdermal Patch] 1 each TD Q3DAYS #8 patch.td72 08/06/16 Fentanyl [Duragesic 50 Mcg/Hr Transdermal Patch] 1 each TD Q3DAYS #8 patch.td72 08/06/16 Fluconazole [Diflucan 100 mg Tablet] 100 mg PO QPM #15 tablet 08/06/16 Gabapentin [Neurontin 300 mg Capsule] 300 mg PO BID #60 capsule 08/06/16 Glipizide [Glucotrol 5 mg Tablet] 5 mg PO QAM #30 tablet 08/06/16 Insulin Lispro [Humalog Insulin (Lispro) 100 unit/mL] 0 - 12 unit SUBCUT ACHSP PRN #1 unit 08/06/16 Lactulose [Cephulac Syrup 20 gm/30 ml Udcup] 20 gm PO BID #1 udc 08/06/16 Nystatin [Mycostatin Topical Powder 15 gm] 1 applic TP BID #1 bottle 08/06/16 Prednisone [Deltasone 20 mg Tablet] 20 mg PO DAILY #15 tablet 08/06/16 Pregabalin [Lyrica 100 mg Capsule] 100 mg PO DAILY #30 capsule 08/06/16 Allergies/Adverse Reactions: Sulfa (Sulfonamide Antibiotics) Allergy (Intermediate, Verified 07/29/16 21:27) adhesive tape Allergy (Verified 07/29/16 21:27) atorvastatin calcium [From Lipitor] Allergy (Verified 07/29/16 21:27) celecoxib [From Celebrex] Allergy (Verified 07/29/16 21:27) Review of Systems ROS unobtainable: Due to mental status Physical Exam Vital Signs: Temp Pulse Resp BP Pulse Ox 99.9 F 19 126/48 H 90 L 08/24/16 15:49 08/24/16 16:02 08/24/16 16:02 08/24/16 16:02 PHYSICAL EXAM GENERAL: Lethargic, difficult to keep awake; morbidly obese; alert and oriented to person, place,, situation HEENT: normocephalic, atraumatic; no conjunctival injection, no scleral icterus ; oral mucosa dry,; neck supple, no LAD, RESPIRATORY: Abdominal accessory muscle use, increased WOB, poor air entry bilaterally diminished at the bases left greater than right; coarse diffuse crackles, anterior faint end expiratory wheezes CARDIO: no JVD; sinus arrhythmia on the monitor with tachycardia, appears to be underlying sinus rhythm with a first-degree AV block and frequent PACs VASCULAR: no pallor; 2+ radial, DP pulse; normal capillary refill GI: soft; massive pannus, diminished bowel sounds; no rebound, rigidity, guarding, no grimace to palpation NEURO: normal patella reflexes; MSK: Normal muscle tone; normal ROM hips; ambulatory without assistance; no tenderness EXTREMITIES: no calf tender; no palpable cords in calf; no clubbing, cyanosis ; 2+ bilateral pedal edema SKIN: warm; moist; no petechiae; no telengectasias; no jaundice; no rash Results Laboratory Results: 08/24/16 16:28 08/24/16 16:28 08/24/16 08/24/16 08/24/16 16:28 16:28 16:28 WBC 9.4 RBC 3.80 Hgb 11.1 L Hct 33.5 L MCV 88 MCH 29.3 MCHC 33.2 RDW 16.3 H Plt Count 174 Seg Neutrophils % 74.6 Lymphocytes % 16.1 Monocytes % 8.0 Eosinophils % 1.0 Basophils % 0.3 Absolute Neutrophils 7.0 Absolute Lymphocytes 1.5 Absolute Monocytes 0.7 Absolute Eosinophils 0.1 Absolute Basophils 0.0 VBG pH VBG pCO2 VBG HCO3 VBG Base Excess Sodium 140.3 Potassium 3.6 Chloride 96 L Carbon Dioxide 34 H Anion Gap 10 BUN 27 H Creatinine 1.12 Est GFR ( Amer) 58 L Est GFR (Non-Af Amer) 48 L Glucose 97 Lactic Acid 1.3 Calcium 9.6 Total Bilirubin 0.7 AST 19 ALT 34 Alkaline Phosphatase 86 Total Protein 6.2 L Albumin 3.4 L 08/24/16 16:28 WBC RBC Hgb Hct MCV MCH MCHC RDW Plt Count Seg Neutrophils % Lymphocytes % Monocytes % Eosinophils % Basophils % Absolute Neutrophils Absolute Lymphocytes Absolute Monocytes Absolute Eosinophils Absolute Basophils VBG pH 7.45 H VBG pCO2 50.3 VBG HCO3 34.5 H VBG Base Excess 9.1 Sodium Potassium Chloride Carbon Dioxide Anion Gap BUN Creatinine Est GFR ( Amer) Est GFR (Non-Af Amer) Glucose Lactic Acid Calcium Total Bilirubin AST ALT Alkaline Phosphatase Total Protein Albumin 08/24/16 16:28 Troponin I 0.053 NT-Pro-B Natriuret Pep 676 Labs and culture results reviewed, as noted above and in the history of present illness Impressions: Chest X-Ray 08/24/16 16:10 IMPRESSION: Left basilar densities as noted above. Other findings as noted above Status: Image reviewed by ar - Chest x-ray reviewed and compared to prior and there does appear to be some focal airspace disease at the left base Assessment & Plan - Diagnosis (1) Pneumonia involving left lung Qualifiers: Pneumonia type: due to unspecified organism Lung location: upper lobe of lung Qualified Code(s): J18.1 - Lobar pneumonia, unspecified organism Is this a current diagnosis for this admission?: YesPlan: Given her recent hospitalizations and previous culture results she will need all the antibiotics including cefepime, gentamicin, azithromycin, vancomycin, and had Diflucan if she fails to improve. She'll be admitted to the ICU and continued on BiPAP therapy with arterial blood gas, if she fails to awaken her show CO2 retention she will need to be intubated. Consult pulmonary, may need bronchoscopy for BAL and culture. (2) Acute on chronic respiratory failure with hypoxia and hypercapnia Is this a current diagnosis for this admission?: YesPlan: Normally wears 2-3 L of O2 continuous at home. She is also steroid dependent, so will place on Solu-Cortef 100 mg IV every 8 hours. (3) Adrenal insufficiency Is this a current diagnosis for this admission?: YesPlan: Stress dose steroids as noted above. (4) Chronic kidney disease Qualifiers: Chronic kidney disease stage: stage 3 (moderate) Qualified Code(s): N18.3 - Chronic kidney disease, stage 3 (moderate) Is this a current diagnosis for this admission?: YesPlan: Careful monitoring of volume status, renal function appears to be at baseline. (5) Diabetes mellitus type II, controlled Qualifiers: Diabetes mellitus complication status: without complication Diabetes mellitus assistant terminal manager insulin use: without assistant terminal manager use Qualified Code(s): E11.9 - Type 2 diabetes mellitus without complications Is this a current diagnosis for this admission?: YesPlan: Cover with sliding scale insulin every 6 hours for now. (6) Diastolic dysfunction Is this a current diagnosis for this admission?: YesPlan: Careful monitoring of her volume status as she has a propensity for third spacing (7) Dysphagia Qualifiers: Dysphagia type: unspecified Qualified Code(s): R13.10 - Dysphagia, unspecified Is this a current diagnosis for this admission?: YesPlan: On review of the old record she reportedly has dysphagia to solid foods reportedly secondary to distal esophageal stricture, unclear whether or not she aspirated to cause this latest pneumonia. May need gastroenterology consult. (8) History of MRSA infection Is this a current diagnosis for this admission?: YesPlan: Recent MRSA bronchitis, cover as noted above. (9) Generalized anxiety disorder Is this a current diagnosis for this admission?: YesPlan: Is usually micromanaging her medications, we will need to monitor for worsening anxiety and treat accordingly. (10) Obstructive sleep apnea Is this a current diagnosis for this admission?: YesPlan: Normally CPAP dependent and chronically hypercapnic. See above (11) ESBL (extended spectrum beta-lactamase) producing bacteria infection Is this a current diagnosis for this admission?: YesPlan: Coverages noted above - Time Time Spent: Greater than 70 Minutes Medications reviewed and adjusted accordingly: Yes Anticipated discharge: Other - May need transfer to tertiary care center if her condition were to decline given multiple comorbidities and lack of subspecialty support - Inpatient Certification Medical Necessity: Significant Comorbidiites Make Outpatient Treatment Too Risky , Need For IV Fluids, Need For Continuous Telemetry Monitoring, Need for IV Antibiotics, Risk of Complication if Not Cared For in Hospital
[2016-08-24 20:55] LABS: ARTERIAL BLOOD BASE EXCESS 6.2 mmol/L
[2016-08-24] MEDS ORDERED: VANCOMYCIN HCL INJ 1000 MG VIAL ONE (21:06)
[2016-08-24] MEDS ORDERED: GENTAMICIN SULFATE 180 MG in DEXTROSE 5%-WATER 100 ML IV ONE (23:00)
[2016-08-25] MEDS: DILTIAZEM HCL 240 MG CAPSULE.CR PO SCH ×3 (00:26→21:22)
[2016-08-25] MEDS: FAMOTIDINE INJ/PF 20 MG/2 ML SDV IV SCH ×3 (00:34→21:23)
[2016-08-25] MEDS: HYDROCORTISONE SOD SUCCINATE INJ/PF 100 MG/2 ML SDV IV SCH ×4 (00:35→21:23)
[2016-08-25] MEDS: IPRATROPIUM/ALBUTEROL 0.5-2.5 MG/3 ML AMPUL NEB SCH ×3 (00:48→16:40)
[2016-08-25 01:19] LABS: VENOUS BLOOD BASE EXCESS 7.6 mmol/L; VENOUS BLOOD HCO3 35.5 mmol/L (20-32); VENOUS BLOOD PH 7.34 (7.30-7.42)
[2016-08-25] MEDS ORDERED: CEFEPIME INJ 2 GM VIAL IV SCH (05:00)
[2016-08-25 05:12] LABS: VENOUS BLOOD BASE EXCESS 6.9 mmol/L; VENOUS BLOOD HCO3 33.3 mmol/L (20-32); VENOUS BLOOD PCO2 55.8 mmHg (35-63); VENOUS BLOOD PH 7.39 (7.30-7.42)
[2016-08-25 05:32] LABS: ANION GAP 11 (5-19); BLOOD UREA NITROGEN 25 mg/dL (7-20); CALCIUM 9.6 mg/dL (8.4-10.2); CARBON DIOXIDE 31 mmol/L (22-30); CHLORIDE 97 mmol/L (98-107); CREATININE RESULT 0.84 mg/dL (0.52-1.25); GLUCOSE 285 mg/dL (75-110); POTASSIUM 4.3 mmol/L (3.6-5.0); SODIUM 138.7 mmol/L (137-145)
[2016-08-25 05:38] LABS: HEMATOCRIT 32.9 % (36.0-47.0); HEMOGLOBIN 11.1 g/dL (12.0-15.5); HGB HCT DIFFERENCE 0.4; MEAN CORPUSCULAR HEMOGLOBIN 29.5 pg (27.0-33.4); MEAN CORPUSCULAR HGB CONC 33.9 g/dL (32.0-36.0); MEAN CORPUSCULAR VOLUME 87 fl (80-97); RED BLOOD COUNT 3.78 10^6/uL (3.72-5.28); RED CELL DISTRIBUTION WIDTH 16.1 % (11.5-14.0); WHITE BLOOD COUNT 11.5 10^3/uL (4.0-10.5)
[2016-08-25 05:53] LABS: AMORPHOUS SEDIMENT,URINE 1+ /HPF; APPEARANCE,URINE CLOUDY; BILIRUBIN,URINE NEGATIVE (NEGATIVE); GLUCOSE, URINE 150 mg/dL (NEGATIVE); KETONES,URINE TRACE mg/dL (NEGATIVE); LEUKOCYTE ESTERASE,URINE LARGE (NEGATIVE); NITRITE,URINE NEGATIVE (NEGATIVE); PROTEIN,URINE 30 mg/dL (NEGATIVE); URINE SPECIFIC GRAVITY 1.016; UROBILINOGEN,URINE NEGATIVE mg/dL (<2.0)
[2016-08-25] MEDS ORDERED: CEFEPIME 2 GM/D5W RTU 2 GM/50 ML RTUPB IV SCH (06:00)
[2016-08-25 06:14] LABS: ANISOCYTOSIS 1+; BASOPHILS % (MANUAL) 0 % (0-2); EOSINOPHILS % (MANUAL) 0 % (0-6); LYMPHOCYTES % (MANUAL) 3 % (13-45); OVALOCYTES SLIGHT; POIKILOCYTOSIS SLIGHT; POLYCHROMASIA SLIGHT; TOTAL CELLS COUNTED 100; TOXIC GRANULATION SLIGHT
[2016-08-25] MEDS: ACETAMINOPHEN 325 MG TABLET PO PRN (08:55)
[2016-08-25] MEDS ORDERED: CEFEPIME HCL 2 GM in DEXTROSE 5%-WATER 50 ML IV ONE (09:00)
[2016-08-25] MEDS: APIXABAN 2.5 MG TABLET PO SCH ×2 (11:32→17:15)
[2016-08-25] MEDS: INSULIN LISPRO 100 UNIT/ML 3 ML VIAL SUBCUT PRN (12:44)
[2016-08-25] MEDS ORDERED: GABAPENTIN 300 MG CAPSULE PO ONE (13:00)
[2016-08-25] MEDS ORDERED: FENTANYL 50 MCG/HR PATCH.TD72 TD ONE (13:00)
[2016-08-25] MEDS ORDERED: DULOXETINE HCL 30 MG CAPSULE.DR PO ONE (13:00)
--- NOTE | 2016-08-25 14:32 | PDOC PROGRESS REPORT ---
Subjective Progress Note for:: 08/25/16 Subjective:: Reason for visit: Follow-up pneumonia, acute on chronic hypoxic respiratory failure, sepsis Hospital course:PORSHA WALDRON is a 71 year old female with multiple comorbid conditions currently a resident at [facility] just recently discharged from this facility for an MRSA bronchitis and multidrug resistant Pseudomonas urinary tract infection with underlying O2 and steroid dependent COPD, morbid obesity, obstructive sleep apnea CPAP dependent presents to the emergency department with a 2 to three-day history of progressive shortness of breath and cough productive of phlegm. She reported to staff at temperature of 104.2 at the facility and spiked a fever to 101 while in our emergency department according to my conversation with the ER physician. With her temperature she started having RIGORS, became confused and reportedly dropped her O2 sat 78% in spite of her usual supplemental O2; as a result she is now on BiPAP therapy with an FiO2 of 50% pressures of 14/6 and rate 12. She is currently lethargic, difficult to awaken for long periods of time and therefore unable to get a reliable review of systems her medical history at this time. According to the emergency room physician, and while in her right state of mind , she expressed her desire for intubation and wished to resend her community DO NOT RESUSCITATE. Evaluation in the emergency department is consistent with a left lower lobe pneumonia and acute on chronic hypoxic respiratory failure requiring admission to the ICU for further treatment and monitoring. Of note, in review of her previous cultures she grows extremely resistant organisms in her sputum including a carbopenem resistant Klebsiella susceptible only to gentamicin, MRSA, Cookie albicans, Moraxella paralysis, Pseudomonas aeruginosa among others. Patient was admitted to the hospital and started on multidrug broad-spectrum antibiotic regimen given her history of resistant organisms as noted above. She spent the night utilizing BiPAP therapy and that seems to have improved her overall condition such that she is more awake alert and interactive this morning. She states that she hasn't been feeling well for the last several days and had become acutely short of breath on the 5 hours prior to her arrival. Subjective: The patient is clearly feeling better and she is now keenly aware of the fact she is not receiving many of the more than 40 medications she is routinely prescribed, seeking to have as many of those reinitiated as possible particularly her analgesics and anti-anxiety medicines. She endorses: Shortness of breath, fevers, chills, chest pain, headache, muscle aches, joint aches, abdominal pain, nausea, vomiting - essentially it is a positive review of systems. Physical Exam Vital Signs: Temp Pulse Resp BP Pulse Ox 99 F 102 H 20 135/76 H 98 08/25/16 14:08 08/25/16 12:00 08/25/16 14:00 08/25/16 13:39 08/25/16 14:00 Pulse Oximeter Continuous Start: 08/24/16 18: 36 Freq: RTQ4 Status: Complete Document 08/25/16 00:00 STI (Rec: 08/25/16 00:55 STI [id number]) Pulse Oximetry Assessment Oxygen Saturation (92-100) 100 Oxygen Delivery Method Bi-pap Fraction of Inspired Oxygen (FIO2) 50 Equipment Usage Equipment Standby Continuous SpO2 Machine # ER MONITOR Intake & Output 08/24/16 08/25/16 08/26/16 06:59 06:59 06:59 Intake Total 237 Output Total 900 Balance -900 237 Weight 104.8 kg PHYSICAL EXAM GENERAL: Awake, in no acute distress; morbidly obese; alert and oriented to person, place and situation HEENT: normocephalic, atraumatic; no conjunctival injection, no scleral icterus ; oral mucosa dry; neck supple, no LAD, RESPIRATORY: No accessory muscle use, no increased WOB, persistent poor air entry bilaterally diminished at the bases left greater than right; coarse diffuse crackles, and resolution of anterior faint end expiratory wheezes CARDIO: no JVD; sinus arrhythmia on the monitor with tachycardia, appears to be underlying sinus rhythm with a first-degree AV block and frequent PACs VASCULAR: no pallor; 2+ radial, DP pulse; normal capillary refill GI: soft; massive pannus, diminished bowel sounds; no rebound, rigidity, guarding, no grimace to palpation NEURO: Moves all extremities spontaneously will follow commands, speech is clear and lucid MSK: Normal muscle tone; normal ROM hips; EXTREMITIES: no calf tender; no palpable cords in calf; no clubbing, cyanosis ; 2+ bilateral pedal edema SKIN: warm; moist; no petechiae; no telengectasias; no jaundice; no rash Results Laboratory Results: 08/25/16 04:52 08/25/16 04:52 08/24/16 08/25/16 08/25/16 20:01 01:09 04:40 WBC RBC Hgb Hct MCV MCH MCHC RDW Plt Count Seg Neutrophils % Lymphocytes % Monocytes % Eosinophils % Basophils % Absolute Neutrophils Absolute Lymphocytes Absolute Monocytes Absolute Eosinophils Absolute Basophils Carbonic Acid 1.54 H HCO3/H2CO3 Ratio 20:1 ABG pH 7.41 ABG pCO2 51.1 H ABG pO2 74.7 L ABG HCO3 32.0 H ABG O2 Saturation 95.0 ABG Base Excess 6.2 VBG pH 7.34 VBG pCO2 67.0 H* VBG HCO3 35.5 H VBG Base Excess 7.6 FiO2 50% Sodium Potassium Chloride Carbon Dioxide Anion Gap BUN Creatinine Est GFR ( Amer) Est GFR (Non-Af Amer) Glucose Calcium Urine Color YELLOW Urine Appearance CLOUDY Urine pH 5.0 Ur Specific [place] 1.016 Urine Protein 30 H Urine Glucose (UA) 150 H Urine Ketones TRACE H Urine Blood SMALL H Urine Nitrite NEGATIVE Ur Leukocyte Esterase LARGE H Urine WBC (Auto) >182 Urine RBC (Auto) 7 08/25/16 08/25/16 08/25/16 04:52 04:52 05:05 WBC 11.5 H RBC 3.78 Hgb 11.1 L Hct 32.9 L MCV 87 MCH 29.5 MCHC 33.9 RDW 16.1 H Plt Count 137 L Seg Neutrophils % Not Reportable Lymphocytes % Not Reportable Monocytes % Not Reportable Eosinophils % Not Reportable Basophils % Not Reportable Absolute Neutrophils Not Reportable Absolute Lymphocytes Not Reportable Absolute Monocytes Not Reportable Absolute Eosinophils Not Reportable Absolute Basophils Not Reportable Carbonic Acid HCO3/H2CO3 Ratio ABG pH ABG pCO2 ABG pO2 ABG HCO3 ABG O2 Saturation ABG Base Excess VBG pH 7.39 VBG pCO2 55.8 VBG HCO3 33.3 H VBG Base Excess 6.9 FiO2 Sodium 138.7 Potassium 4.3 Chloride 97 L Carbon Dioxide 31 H Anion Gap 11 BUN 25 H Creatinine 0.84 Est GFR ( Amer) > 60 Est GFR (Non-Af Amer) > 60 Glucose 285 H Calcium 9.6 Urine Color Urine Appearance Urine pH Ur Specific [place] Urine Protein Urine Glucose (UA) Urine Ketones Urine Blood Urine Nitrite Ur Leukocyte Esterase Urine WBC (Auto) Urine RBC (Auto) 08/25/16 04:52 NT-Pro-B Natriuret Pep 585 Labs reviewed and show an encouraging trend in general Impressions: Chest X-Ray 08/24/16 16:10 IMPRESSION: Left basilar densities as noted above. Other findings as noted above Assessment & Plan - Diagnosis (1) Pneumonia involving left lung Qualifiers: Pneumonia type: due to unspecified organism Lung location: upper lobe of lung Qualified Code(s): J18.1 - Lobar pneumonia, unspecified organism Is this a current diagnosis for this admission?: YesPlan: Given her recent hospitalizations and previous culture results she will need all the antibiotics including cefepime, gentamicin, azithromycin, vancomycin, and add Diflucan if she fails to improve. She is stable to downgraded to telemetry at this time. Consult pulmonary, may need bronchoscopy for BAL and culture. (2) Acute on chronic respiratory failure with hypoxia and hypercapnia Is this a current diagnosis for this admission?: YesPlan: Improved. Wean BiPAP off. Normally wears 2-3 L of O2 continuous at home. She is also steroid dependent, so will place on Solu-Cortef 100 mg IV every 8 hours. (3) Adrenal insufficiency Is this a current diagnosis for this admission?: YesPlan: Stress dose steroids as noted above. (4) Chronic kidney disease Qualifiers: Chronic kidney disease stage: stage 3 (moderate) Qualified Code(s): N18.3 - Chronic kidney disease, stage 3 (moderate) Is this a current diagnosis for this admission?: Yes (5) Diabetes mellitus type II, controlled Qualifiers: Diabetes mellitus complication status: without complication Diabetes mellitus penitentiary insulin use: without director long term care use Qualified Code(s): E11.9 - Type 2 diabetes mellitus without complications Is this a current diagnosis for this admission?: Yes (6) Diastolic dysfunction Is this a current diagnosis for this admission?: Yes (7) Dysphagia Qualifiers: Dysphagia type: unspecified Qualified Code(s): R13.10 - Dysphagia, unspecified Is this a current diagnosis for this admission?: Yes (8) History of MRSA infection Is this a current diagnosis for this admission?: Yes (9) Generalized anxiety disorder Is this a current diagnosis for this admission?: Yes (10) Obstructive sleep apnea Is this a current diagnosis for this admission?: Yes (11) ESBL (extended spectrum beta-lactamase) producing bacteria infection Is this a current diagnosis for this admission?: Yes - Time Time Spent with patient: 25-34 minutes Medications reviewed and adjusted accordingly: Yes
[2016-08-25] MEDS: CEFEPIME HCL 2 GM in DEXTROSE 5%-WATER 50 ML IV SCH (17:15)
[2016-08-25] MEDS: VANCOMYCIN HCL 1,500 MG in DEXTROSE 5%-WATER 250 ML IV SCH (17:15)
[2016-08-25] MEDS: MOXIFLOXACIN HCL 0.5% OPH SOLN 3 ML OS SCH ×2 (17:23→17:30)
--- NOTE | 2016-08-25 19:00 | PDOC CONSULTATION ---
Consultation Consult Date: 08/25/16 Attending physician:: NASIM LÓPEZ Consult reason:: chronic resp failure History of Present Illness Admission Date/PCP: 08/24/16 18:30 MUSA HODGSON MD History of Present Illness: PORSHA WALDRON is a 71 year old female with multiple comorbid conditions currently a resident at [facility] just recently discharged from this facility for an MRSA bronchitis and multidrug resistant Pseudomonas urinary tract infection with underlying O2 and steroid dependent COPD, morbid obesity, obstructive sleep apnea CPAP dependent presents to the emergency department with a 2 to three-day history of progressive shortness of breath and cough productive of phlegm. She reported to staff at temperature of 104.2 at the facility and spiked a fever to 101 while in our emergency department according to my conversation with the ER physician. With her temperature she started having RIGORS, became confused and reportedly dropped her O2 sat 78% in spite of her usual supplemental O2; as a result she is now on BiPAP therapy with an FiO2 of 50% pressures of 14/6 and rate 12. She is currently lethargic, difficult to awaken for long periods of time and therefore unable to get a reliable review of systems her medical history at a left lower lobe pneumonia and acute on chronic hypoxic respiratory failure requiring admission to the ICU for further treatment and monitoring. Of note, in review of her previous cultures she grows extremely resistant organisms in her sputum including a carbopenem resistant Klebsiella susceptible only to gentamicin, MRSA, Cookie albicans, Moraxella paralysis, Pseudomonas aeruginosa among others. Past Medical History Cardiac Medical History: Reports: Atrial Fibrillation, Congestive Heart Failure - Diastolic dysfunction, Myocardial Infarction, Hypertension - essential, Pulmonary Embolism, Heart Murmur Denies: Coronary Artery Disease, DVT, Hyperlipidema, Peripheral Vascular Disease Pulmonary Medical History: Reports: Asthma, Bronchitis, Chronic Obstructive Pulmonary Disease (COPD), Pneumonia - Recurrent MRSA pneumonia., Sleep Apnea - Uses C Pap Denies: Tuberculosis Neurological Medical History: Denies: Seizures Endocrine Medical History: Reports: Diabetes Mellitus Type 2 Denies: Diabetes Mellitus Type 1, Hyperthyroidism, Hypothyroidism GI Medical History: Reports: Gastroesophageal Reflux Disease, Hiatal Hernia Denies: Cirrhosis, Hepatitis Musculoskeltal Medical History: Reports: Arthritis, Fibromyalgia, Gout Skin Medical History: Denies: Eczema, Psoriasis Psychiatric Medical History: Reports: Depression Hematology: Reports: Anemia Infectious Medical History: Reports: Methicillin-Resistant Staph Aureus Past Surgical History Past Surgical History: Reports: Appendectomy, Cholecystectomy, Hysterectomy, Orthopedic Surgery - Multiple left hip procedures, 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 Social History Information Source: [facility] Records Smoking Status: Current Every Day Smoker Passive smoke exposure as: Both Frequency of Alcohol Use: None Hx Recreational Drug Use: No Drugs: None Hx Prescription Drug Abuse: No Do you have pets?: No Have you had any recent respiratory illnesses?: Yes Have you travelled outside of [place] in the past 12 months?: No - Advance Directive Resuscitation Status: Full Code - She willingly rescinded her DO NOT RESUSCITATE order. Family History Family History: Arthritis, CAD, CVA, DM, Hypertension Parental Family History Reviewed: No Children Family History Reviewed: No Sibling(s) Family History Reviewed.: No Medication/Allergy Home Medications: Fluticasone Propionate [Flonase Nasal [place] 50 Mcg/[place] 16 gm] 2 spray IH Q12 04/02/15 Olopatadine HCl [Patanol 0.1% Oph Soln 5 ml] 1 drop BTH_EYE DAILY 04/02/15 Tiotropium [place] [Spiriva Handihaler 18 mcg/dose (30 Dose)] 1 cap IH DAILY 09/12 Sennosides/Docusate 8.6-50 mg [Senna Plus Tablet] 1 each PO BID #60 tablet 04/06 Apixaban [Eliquis 2.5 mg Tablet] 2.5 mg PO BID 09/09/15 Cetirizine HCl [Zyrtec 10 mg Tablet] 10 mg PO QHS 09/09/15 Montelukast Sodium [Singulair 10 mg Tablet] 10 mg PO DAILY 09/09/15 Polyethylene Glycol 3350 [Miralax Powder 17 gm/Packet] 1 packet PO BID 11/07/15 Simethicone [Gas-X] 80 mg PO DAILYP PRN 11/07/15 Melatonin 5 mg PO QHS 11/13/15 Clonidine HCl [Catapres 0.2 mg Tablet] 0.2 mg PO Q12 01/05/16 Duloxetine HCl [Cymbalta] 90 mg PO DAILY 01/05/16 Ferrous Sulfate [Feosol] 325 mg PO BID 01/05/16 Saccharomyces Boulardii [Florastor] 250 mg PO BID 01/05/16 Budesonide [Pulmicort Neb 0.5 mg/2 ml Ampul] 0.5 mg NEB RTQ12 ampul.neb Bupropion HCl [Wellbutrin 75 mg Tablet] 75 mg PO DAILY tablet 01/10/16 Albuterol Sulfate [Ventolin 0.083% Neb 2.5 mg/3 mL Ampul] 2.5 mg NEB RTQ6 PRN Ipratropium [place] [Atrovent 0.06% Nasal [place]] 1 spray NASL BID 02/12/16 Potassium Chloride [Klor-Con 10 Meq Tablet.sa] 20 meq PO Q12 tablet.sa Hydrocortisone Acetate [Hydrocortisone] 1 applic TOP Q8 04/18/16 Baclofen [Baclofen 10 mg Tablet] 10 mg PO TID #20 tablet 04/23/16 Lidocaine [Lidoderm 5% (700 mg) Transdermal Patch] 3 patch TP DAILY #7 adh..patch 04/23/16 Omeprazole Magnesium [Prilosec Otc] 20 mg PO QAM 06/10/16 Furosemide [Lasix 40 mg Tablet] 40 mg PO BID tablet 06/15/16 Guaifenesin [Mucinex Sr 600 mg Tablet.sa] 1,200 mg PO Q12 tablet.sa 06/15/16 Insulin Glargine,Hum.rec.anlog [Lantus] 20 unit SQ QAM #1 vial 06/16/16 Metformin HCl 500 mg PO BID #60 tablet 06/16/16 Sitagliptin Phosphate [Januvia 50 mg Tablet] 50 mg PO BIDACBS tablet 06/16/16 Acetaminophen [Tylenol 325 mg Tablet] 650 mg PO Q4HP PRN 07/12/16 Alprazolam [Xanax 0.25 mg Tablet] 0.25 mg PO TID #15 tablet 07/23/16 Na Phos,M-B/Na Phos,Di-Ba [Fleet Enema (Adult) 133 ml] 133 ml MN DAILYP PRN enema 07/23/16 Oxycodone HCl [Oxycodone HCl 10 MG Tablet] 10 mg PO Q6 #20 tablet 07/23/16 Fentanyl [Duragesic 50 Mcg/Hr Transdermal Patch] 1 each TD Q3DAYS #8 patch.td72 08/06/16 Gabapentin [Neurontin 300 mg Capsule] 300 mg PO BID #60 capsule 08/06/16 Glipizide [Glucotrol 5 mg Tablet] 5 mg PO QAM #30 tablet 08/06/16 Lactulose [Cephulac Syrup 20 gm/30 ml Udcup] 20 gm PO BID #1 udc 08/06/16 Nystatin [Mycostatin Topical Powder 15 gm] 1 applic TP BID #1 bottle 08/06/16 Pregabalin [Lyrica 100 mg Capsule] 100 mg PO DAILY #30 capsule 08/06/16 Allergies/Adverse Reactions: Sulfa (Sulfonamide Antibiotics) Allergy (Intermediate, Verified 07/29/16 21:27) adhesive tape Allergy (Verified 07/29/16 21:27) atorvastatin calcium [From Lipitor] Allergy (Verified 07/29/16 21:27) celecoxib [From Celebrex] Allergy (Verified 07/29/16 21:27) Physical Exam Vital Signs: Temp Pulse Resp BP Pulse Ox 98.1 F 101 H 14 111/63 100 08/25/16 04:41 08/25/16 08:00 08/25/16 09:39 08/25/16 09:39 08/25/16 09:39 Pulse Oximeter Continuous Start: 08/24/16 18: 36 Freq: RTQ4 Status: Complete Document 08/25/16 00:00 STI (Rec: 08/25/16 00:55 STI [id number]) Pulse Oximetry Assessment Oxygen Saturation (92-100) 100 Oxygen Delivery Method Bi-pap Fraction of Inspired Oxygen (FIO2) 50 Equipment Usage Equipment Standby Continuous SpO2 Machine # ER MONITOR Intake & Output 08/24/16 08/25/16 08/26/16 06:59 06:59 06:59 Output Total 900 Balance -900 Weight 104.8 kg General appearance: PRESENT: no acute distress, disheveled, morbidly obese Head exam: PRESENT: atraumatic, normocephalic Eye exam: PRESENT: conjunctiva pale, EOMI Mouth exam: PRESENT: neck supple Neck exam: ABSENT: carotid bruit, JVD, lymphadenopathy, thyromegaly Respiratory exam: PRESENT: decreased breath sounds, prolonged expiratory phas, rhonchi, unlabored, wheezes Cardiovascular exam: PRESENT: RRR, +S1, +S2 Pulses: PRESENT: normal radial pulses GI/Abdominal exam: PRESENT: normal bowel sounds, soft. ABSENT: distended, guarding, mass, organolmegaly, rebound, tenderness Rectal exam: PRESENT: deferred Gentrourinary exam: PRESENT: indwelling catheter Extremities exam: PRESENT: +1 edema Neurological exam: PRESENT: alert, awake Psychiatric exam: PRESENT: normal mood Skin exam: PRESENT: dry, intact, warm Results Laboratory Results: 08/25/16 04:52 08/25/16 04:52 08/24/16 08/25/16 08/25/16 20:01 01:09 04:40 WBC RBC Hgb Hct MCV MCH MCHC RDW Plt Count Seg Neutrophils % Lymphocytes % Monocytes % Eosinophils % Basophils % Absolute Neutrophils Absolute Lymphocytes Absolute Monocytes Absolute Eosinophils Absolute Basophils Carbonic Acid 1.54 H HCO3/H2CO3 Ratio 20:1 ABG pH 7.41 ABG pCO2 51.1 H ABG pO2 74.7 L ABG HCO3 32.0 H ABG O2 Saturation 95.0 ABG Base Excess 6.2 VBG pH 7.34 VBG pCO2 67.0 H* VBG HCO3 35.5 H VBG Base Excess 7.6 FiO2 50% Sodium Potassium Chloride Carbon Dioxide Anion Gap BUN Creatinine Est GFR ( Amer) Est GFR (Non-Af Amer) Glucose Calcium Urine Color YELLOW Urine Appearance CLOUDY Urine pH 5.0 Ur Specific [place] 1.016 Urine Protein 30 H Urine Glucose (UA) 150 H Urine Ketones TRACE H Urine Blood SMALL H Urine Nitrite NEGATIVE Ur Leukocyte Esterase LARGE H Urine WBC (Auto) >182 Urine RBC (Auto) 7 08/25/16 08/25/16 08/25/16 04:52 04:52 05:05 WBC 11.5 H RBC 3.78 Hgb 11.1 L Hct 32.9 L MCV 87 MCH 29.5 MCHC 33.9 RDW 16.1 H Plt Count 137 L Seg Neutrophils % Not Reportable Lymphocytes % Not Reportable Monocytes % Not Reportable Eosinophils % Not Reportable Basophils % Not Reportable Absolute Neutrophils Not Reportable Absolute Lymphocytes Not Reportable Absolute Monocytes Not Reportable Absolute Eosinophils Not Reportable Absolute Basophils Not Reportable Carbonic Acid HCO3/H2CO3 Ratio ABG pH ABG pCO2 ABG pO2 ABG HCO3 ABG O2 Saturation ABG Base Excess VBG pH 7.39 VBG pCO2 55.8 VBG HCO3 33.3 H VBG Base Excess 6.9 FiO2 Sodium 138.7 Potassium 4.3 Chloride 97 L Carbon Dioxide 31 H Anion Gap 11 BUN 25 H Creatinine 0.84 Est GFR ( Amer) > 60 Est GFR (Non-Af Amer) > 60 Glucose 285 H Calcium 9.6 Urine Color Urine Appearance Urine pH Ur Specific [place] Urine Protein Urine Glucose (UA) Urine Ketones Urine Blood Urine Nitrite Ur Leukocyte Esterase Urine WBC (Auto) Urine RBC (Auto) 08/25/16 04:52 NT-Pro-B Natriuret Pep 585 Impressions: Chest X-Ray 08/24/16 16:10 IMPRESSION: Left basilar densities as noted above. Other findings as noted above Assessment & Plan - Diagnosis (1) Bronchiectasis Qualifiers: Bronchiectasis type: with acute exacerbation Qualified Code(s): J47.1 - Bronchiectasis with (acute) exacerbation Is this a current diagnosis for this admission?: YesPlan: 06/11/16 14:47 Gram Stain - Final Sputum Sputum Culture - Final C.albicans/C.dubliniensis Greatly Reduced Normal Catarina 06/10/16 08:20 Urine Culture - Final Catheterized Urine Escherichia Coli Esbl 05/14/16 12:40 Gram Stain - Final Sputum Sputum Culture - Final Morax.(Branhamella)Catarrhalis Normal Catarina 05/14/16 12:40 Urine Culture - Final Catheterized Urine Providencia Stuartii Escherichia Coli Esbl 08/01/16 06:30 Urine Culture - Final Catheterized Urine Providencia Stuartii Pseudomonas Aeruginosa 07/30/16 05:30 Gram Stain - Final Sputum Sputum Culture - Final Mrsa (Meth Resis Staph Aureus) C.albicans/C.dubliniensis Normal Catarina 07/12/16 10:30 Gram Stain - Final Sputum Sputum Culture - Final Mrsa (Meth Resis Staph Aureus) Klebsiella Pneumoniae C.albicans/C.dubliniensis Normal Catarina Absent 07/12/16 00:34 Urine Culture - Final Catheterized Urine Proteus Mirabilis Escherichia Coli Esbl (2) COPD exacerbation Is this a current diagnosis for this admission?: Yes (3) Acute on chronic respiratory failure with hypoxia and hypercapnia Is this a current diagnosis for this admission?: Yes
[2016-08-25] MEDS: AZITHROMYCIN 500 MG in DEXTROSE 5%-WATER 250 ML IV SCH (21:22)
[2016-08-25] MEDS: GABAPENTIN 300 MG CAPSULE PO SCH (21:22)
[2016-08-25] MEDS: OXYCODONE HCL IR 5 MG TABLET PO PRN (21:29)
[2016-08-25] MEDS: GENTAMICIN SULFATE 200 MG in DEXTROSE 5%-WATER 100 ML IV SCH (23:26)
[2016-08-26] MEDS: CEFEPIME HCL 2 GM in DEXTROSE 5%-WATER 50 ML IV SCH ×2 (06:22→17:01)
[2016-08-26] MEDS: HYDROCORTISONE SOD SUCCINATE INJ/PF 100 MG/2 ML SDV IV SCH ×3 (06:22→21:28)
[2016-08-26 06:42] LABS: ABSOLUTE LYMPHOCYTES (AUTO) 0.8 10^3/uL (0.5-4.7); ABSOLUTE MONOCYTES (AUTO) 0.6 10^3/uL (0.1-1.4); ABSOLUTE NEUT (AUTO) 8.4 10^3/uL (1.7-8.2); BASOPHILS % (AUTO) 0.1 % (0-2); EOSINOPHILS % (AUTO) 0.1 % (0-6); HEMATOCRIT 28.7 % (36.0-47.0); HEMOGLOBIN 9.7 g/dL (12.0-15.5); HGB HCT DIFFERENCE 0.4; LYMPHOCYTES % (AUTO) 7.9 % (13-45); MEAN CORPUSCULAR HEMOGLOBIN 29.4 pg (27.0-33.4); MEAN CORPUSCULAR HGB CONC 33.7 g/dL (32.0-36.0); MEAN CORPUSCULAR VOLUME 87 fl (80-97); MONOCYTES % (AUTO) 6.6 % (3-13); RED CELL DISTRIBUTION WIDTH 15.8 % (11.5-14.0); SEGMENTED NEUTROPHILS % (AUTO) 85.3 % (42-78); WHITE BLOOD COUNT 9.8 10^3/uL (4.0-10.5)
[2016-08-26 06:58] LABS: ANION GAP 9 (5-19); BLOOD UREA NITROGEN 23 mg/dL (7-20); CALCIUM 9.5 mg/dL (8.4-10.2); CARBON DIOXIDE 32 mmol/L (22-30); CHLORIDE 99 mmol/L (98-107); CREATININE RESULT 0.87 mg/dL (0.52-1.25); GLUCOSE 128 mg/dL (75-110); POTASSIUM 3.6 mmol/L (3.6-5.0)
[2016-08-26] MEDS: IPRATROPIUM/ALBUTEROL 0.5-2.5 MG/3 ML AMPUL NEB SCH ×3 (07:57→16:14)
[2016-08-26] MEDS: DILTIAZEM HCL 240 MG CAPSULE.CR PO SCH ×2 (10:25→21:28)
[2016-08-26] MEDS: PREGABALIN 100 MG CAPSULE PO SCH (10:26)
[2016-08-26] MEDS: GABAPENTIN 300 MG CAPSULE PO SCH ×2 (10:26→21:29)
[2016-08-26] MEDS: DULOXETINE HCL 30 MG CAPSULE.DR PO SCH (10:26)
[2016-08-26] MEDS: FAMOTIDINE INJ/PF 20 MG/2 ML SDV IV SCH ×2 (10:26→21:28)
[2016-08-26] MEDS: LACTULOSE SYRUP 20 GM/30 ML UDCUP PO SCH ×2 (10:27→17:42)
[2016-08-26] MEDS: ALPRAZOLAM 0.25 MG TABLET PO PRN ×2 (10:28→21:29)
[2016-08-26] MEDS: MOXIFLOXACIN HCL 0.5% OPH SOLN 3 ML OS SCH (11:07)
[2016-08-26] MEDS ORDERED: BENZONATATE 100 MG CAPSULE PO ONE (11:45)
[2016-08-26] MEDS: INSULIN LISPRO 100 UNIT/ML 3 ML VIAL SUBCUT PRN (12:03)
[2016-08-26] MEDS: ALBUTEROL SULFATE 0.083% NEB 2.5 MG/3 ML AMPUL NEB PRN (13:48)
--- NOTE | 2016-08-26 14:14 | PDOC PROGRESS REPORT ---
Subjective Progress Note for:: 08/26/16 Subjective:: Reason for visit: Follow-up pneumonia, acute on chronic hypoxic respiratory failure, sepsis Hospital course:PORSHA WALDRON is a 71 year old female with multiple comorbid conditions currently a resident at [facility] just recently discharged from this facility for an MRSA bronchitis and multidrug resistant Pseudomonas urinary tract infection with underlying O2 and steroid dependent COPD, morbid obesity, obstructive sleep apnea CPAP dependent presents to the emergency department with a 2 to three-day history of progressive shortness of breath and cough productive of phlegm. She reported to staff at temperature of 104.2 at the facility and spiked a fever to 101 while in our emergency department according to my conversation with the ER physician. With her temperature she started having RIGORS, became confused and reportedly dropped her O2 sat 78% in spite of her usual supplemental O2; as a result she is now on BiPAP therapy with an FiO2 of 50% pressures of 14/6 and rate 12. She is currently lethargic, difficult to awaken for long periods of time and therefore unable to get a reliable review of systems her medical history at this time. According to the emergency room physician, and while in her right state of mind , she expressed her desire for intubation and wished to resend her community DO NOT RESUSCITATE. Evaluation in the emergency department is consistent with a left lower lobe pneumonia and acute on chronic hypoxic respiratory failure requiring admission to the ICU for further treatment and monitoring. Of note, in review of her previous cultures she grows extremely resistant organisms in her sputum including a carbopenem resistant Klebsiella susceptible only to gentamicin, MRSA, Cookie albicans, Moraxella paralysis, Pseudomonas aeruginosa among others. Patient was admitted to the hospital and started on multidrug broad-spectrum antibiotic regimen given her history of resistant organisms as noted above. She spent the night utilizing BiPAP therapy and that seems to have improved her overall condition such that she is more awake alert and interactive this morning. She states that she hasn't been feeling well for the last several days and had become acutely short of breath on the 5 hours prior to her arrival. Subjective: Complaining of hemoptysis, Shortness of breath, fevers, chills, chest pain, headache, muscle aches, joint aches, abdominal pain, nausea, vomiting - essentially it remains a positive review of systems, she does not endorse improvement in her condition. Physical Exam Vital Signs: Temp Pulse Resp BP Pulse Ox 98.5 F 83 17 157/74 H 95 02/26/17 11:48 08/26/16 11:48 08/26/16 11:48 08/26/16 11:48 08/26/16 11:48 Intake & Output 08/25/16 08/26/16 08/27/16 06:59 06:59 06:59 Intake Total 2700 Output Total 900 1650 Balance -900 1050 Weight 104.8 kg 106.2 kg PHYSICAL EXAM GENERAL: Awake, mild emotional distress; morbidly obese; alert and oriented to person, place and situation HEENT: normocephalic, atraumatic; no conjunctival injection, no scleral icterus ; oral mucosa dry; neck supple, no LAD, RESPIRATORY: No accessory muscle use, no increased WOB, persistent poor air entry bilaterally diminished at the bases; coarse diffuse crackles, and anterior faint end expiratory wheezes CARDIO: no JVD; regular rate and rhythm, distant heart sounds hard to auscultate for murmurs VASCULAR: no pallor; 2+ radial, DP pulse; normal capillary refill GI: soft; massive pannus, diminished bowel sounds; no rebound, rigidity, guarding, no grimace to palpation NEURO: Moves all extremities spontaneously will follow commands, speech is clear and lucid MSK: Normal muscle tone; normal ROM hips; EXTREMITIES: no calf tender; no palpable cords in calf; no clubbing, cyanosis ; 2+ bilateral pedal edema SKIN: warm; moist; no petechiae; no telengectasias; no jaundice; no rash Results Laboratory Results: 08/26/16 06:00 08/26/16 06:00 08/26/16 08/26/16 06:00 06:00 WBC 9.8 RBC 3.30 L Hgb 9.7 L Hct 28.7 L MCV 87 MCH 29.4 MCHC 33.7 RDW 15.8 H Plt Count 155 Seg Neutrophils % 85.3 H Lymphocytes % 7.9 L Monocytes % 6.6 Eosinophils % 0.1 Basophils % 0.1 Absolute Neutrophils 8.4 H Absolute Lymphocytes 0.8 Absolute Monocytes 0.6 Absolute Eosinophils 0.0 Absolute Basophils 0.0 Sodium 140.0 Potassium 3.6 Chloride 99 Carbon Dioxide 32 H Anion Gap 9 BUN 23 H Creatinine 0.87 Est GFR ( Amer) > 60 Est GFR (Non-Af Amer) > 60 Glucose 128 H Calcium 9.5 08/25/16 04:52 NT-Pro-B Natriuret Pep 585 Labs reviewed, CBC reassuring Assessment & Plan - Diagnosis (1) Hemoptysis Is this a current diagnosis for this admission?: YesPlan: Blood-tinged sputum noted at the bedside, most likely due to paroxysms of cough and the severity of her pneumonia while on eliquis. hold anticoagulant and continue to monitor. CBC reassuring so far, contincue to trend. (2) Pneumonia involving left lung Qualifiers: Pneumonia type: due to unspecified organism Lung location: upper lobe of lung Qualified Code(s): J18.1 - Lobar pneumonia, unspecified organism Is this a current diagnosis for this admission?: YesPlan: Given her recent hospitalizations and previous culture results she will need all the antibiotics including cefepime, gentamicin, azithromycin, vancomycin, and add Diflucan if she fails to improve. Consult pulmonary, may need bronchoscopy for BAL and culture. See Dr. Ahuja's notes for details (3) Acute on chronic respiratory failure with hypoxia and hypercapnia Is this a current diagnosis for this admission?: YesPlan: Improved. Continue nocturnal and as needed BiPAP. Normally wears 2-3 L of O2 continuous at home. She is also steroid dependent, so will place on Solu- Cortef 100 mg IV every 8 hours for 48 hours and then taper down. (4) Adrenal insufficiency Is this a current diagnosis for this admission?: YesPlan: Systemic steroids as noted above. (5) Chronic kidney disease Qualifiers: Chronic kidney disease stage: stage 3 (moderate) Qualified Code(s): N18.3 - Chronic kidney disease, stage 3 (moderate) Is this a current diagnosis for this admission?: Yes (6) Diabetes mellitus type II, controlled Qualifiers: Diabetes mellitus complication status: without complication Diabetes mellitus custodial insulin use: without custodial use Qualified Code(s): E11.9 - Type 2 diabetes mellitus without complications Is this a current diagnosis for this admission?: Yes (7) Diastolic dysfunction Is this a current diagnosis for this admission?: Yes (8) Dysphagia Qualifiers: Dysphagia type: unspecified Qualified Code(s): R13.10 - Dysphagia, unspecified Is this a current diagnosis for this admission?: Yes (9) History of MRSA infection Is this a current diagnosis for this admission?: Yes (10) Generalized anxiety disorder Is this a current diagnosis for this admission?: Yes (11) Obstructive sleep apnea Is this a current diagnosis for this admission?: Yes (12) ESBL (extended spectrum beta-lactamase) producing bacteria infection Is this a current diagnosis for this admission?: Yes - Time Time Spent with patient: 35 or more minutes
[2016-08-26] MEDS ORDERED: GUAIFENESIN 600 MG TABLET.SA PO ONE (15:00)
[2016-08-26] MEDS: BENZONATATE 100 MG CAPSULE PO SCH (17:34)
[2016-08-26] MEDS: OXYCODONE HCL IR 5 MG TABLET PO PRN (17:34)
[2016-08-26] MEDS: VANCOMYCIN HCL 1,500 MG in DEXTROSE 5%-WATER 250 ML IV SCH (17:41)
[2016-08-26] MEDS: GENTAMICIN SULFATE 200 MG in DEXTROSE 5%-WATER 100 ML IV SCH (21:28)
[2016-08-26] MEDS: GUAIFENESIN 600 MG TABLET.SA PO SCH (21:28)
[2016-08-26] MEDS: AZITHROMYCIN 500 MG in DEXTROSE 5%-WATER 250 ML IV SCH (23:40)
[2016-08-27] MEDS: IPRATROPIUM/ALBUTEROL 0.5-2.5 MG/3 ML AMPUL NEB SCH ×4 (00:06→23:56)
[2016-08-27] MEDS: HYDROCORTISONE SOD SUCCINATE INJ/PF 100 MG/2 ML SDV IV SCH ×3 (05:44→21:33)
[2016-08-27] MEDS: CEFEPIME HCL 2 GM in DEXTROSE 5%-WATER 50 ML IV SCH ×2 (05:44→17:39)
[2016-08-27] MEDS: INSULIN LISPRO 100 UNIT/ML 3 ML VIAL SUBCUT PRN ×3 (08:16→17:39)
[2016-08-27] MEDS: OXYCODONE HCL IR 5 MG TABLET PO PRN ×3 (08:35→20:39)
[2016-08-27] MEDS: BENZONATATE 100 MG CAPSULE PO SCH ×3 (09:25→17:39)
[2016-08-27] MEDS: GABAPENTIN 300 MG CAPSULE PO SCH ×2 (09:26→21:33)
[2016-08-27] MEDS: DULOXETINE HCL 30 MG CAPSULE.DR PO SCH (09:26)
[2016-08-27] MEDS: PREGABALIN 100 MG CAPSULE PO SCH (09:26)
[2016-08-27] MEDS: DILTIAZEM HCL 240 MG CAPSULE.CR PO SCH ×2 (09:26→21:33)
[2016-08-27] MEDS: FAMOTIDINE INJ/PF 20 MG/2 ML SDV IV SCH ×2 (09:27→21:33)
[2016-08-27] MEDS: GUAIFENESIN 600 MG TABLET.SA PO SCH ×2 (09:27→21:33)
[2016-08-27] MEDS: ALPRAZOLAM 0.25 MG TABLET PO PRN (09:33)
[2016-08-27] MEDS: LACTULOSE SYRUP 20 GM/30 ML UDCUP PO SCH ×2 (09:38→17:39)
--- NOTE | 2016-08-27 11:51 | PDOC PROGRESS REPORT ---
Subjective Progress Note for:: 08/27/16 Subjective:: Reason for visit: Follow-up pneumonia, acute on chronic hypoxic respiratory failure, sepsis Hospital course:PORSHA WALDRON is a 71 year old female with multiple comorbid conditions currently a resident at [facility] just recently discharged from this facility for an MRSA bronchitis and multidrug resistant Pseudomonas urinary tract infection with underlying O2 and steroid dependent COPD, morbid obesity, obstructive sleep apnea CPAP dependent presents to the emergency department with a 2 to three-day history of progressive shortness of breath and cough productive of phlegm. She reported to staff at temperature of 104.2 at the facility and spiked a fever to 101 while in our emergency department according to my conversation with the ER physician. With her temperature she started having RIGORS, became confused and reportedly dropped her O2 sat 78% in spite of her usual supplemental O2; as a result she is now on BiPAP therapy with an FiO2 of 50% pressures of 14/6 and rate 12. She is currently lethargic, difficult to awaken for long periods of time and therefore unable to get a reliable review of systems her medical history at this time. According to the emergency room physician, and while in her right state of mind , she expressed her desire for intubation and wished to resend her community DO NOT RESUSCITATE. Evaluation in the emergency department is consistent with a left lower lobe pneumonia and acute on chronic hypoxic respiratory failure requiring admission to the ICU for further treatment and monitoring. Of note, in review of her previous cultures she grows extremely resistant organisms in her sputum including a carbopenem resistant Klebsiella susceptible only to gentamicin, MRSA, Cookie albicans, Moraxella paralysis, Pseudomonas aeruginosa among others. Patient was admitted to the hospital and started on multidrug broad-spectrum antibiotic regimen given her history of resistant organisms as noted above. She spent the night utilizing BiPAP therapy and that seems to have improved her overall condition such that she is more awake alert and interactive this morning. She states that she hasn't been feeling well for the last several days and had become acutely short of breath on the 5 hours prior to her arrival. She developed mild hemoptysis that was more consistent with blood-tinged sputum then true hemoptysis, nevertheless her eliquis was discontinued, cough medicine was started and by this morning seems to have resolved. Urine cultures come back positive for an ESBL Escherichia coli, she remains on gentamicin. Subjective: She continues to endorse Shortness of breath, fevers, chills, chest pain, headache, muscle aches, joint aches, abdominal pain, nausea, vomiting - essentially it remains a positive review of systems and only reluctantly admits to at least a minimal improvement in her overall condition. Physical Exam Vital Signs: Temp Pulse Resp BP Pulse Ox 97.6 F 85 18 142/70 H 95 08/27/16 07:32 08/27/16 07:32 08/27/16 07:32 08/27/16 07:32 08/27/16 07:32 Intake & Output 08/26/16 08/27/16 08/28/16 06:59 06:59 06:59 Intake Total 2700 3026 Output Total 1650 2100 Balance 1050 926 Weight 106.2 kg 107.2 kg PHYSICAL EXAM GENERAL: Awake, no emotional distress this morning; morbidly obese; alert and oriented to person, place and situation HEENT: normocephalic, atraumatic; no conjunctival injection, no scleral icterus ; oral mucosa dry; neck supple, no LAD, RESPIRATORY: No accessory muscle use, no increased WOB, persistent poor air entry bilaterally diminished at the bases; coarse diffuse crackles, and resolution of anterior faint end expiratory wheezes CARDIO: no JVD; regular rate and rhythm, distant heart sounds hard to auscultate for murmurs VASCULAR: no pallor; 2+ radial, DP pulse; normal capillary refill GI: soft; massive pannus, diminished bowel sounds; no rebound, rigidity, guarding, no grimace to palpation NEURO: Moves all extremities spontaneously will follow commands, speech is clear and lucid MSK: Normal muscle tone; normal ROM hips; EXTREMITIES: no calf tender; no palpable cords in calf; no clubbing, cyanosis ; 1+ bilateral pedal edema SKIN: warm; moist; no petechiae; no telengectasias; no jaundice; no rash Results Laboratory Results: 08/25/16 04:40 Barton Catheter Urine Culture - Final Escherichia Coli Esbl Impressions: Chest X-Ray 08/24/16 16:10 IMPRESSION: Left basilar densities as noted above. Other findings as noted above Assessment & Plan - Diagnosis (1) Hemoptysis Is this a current diagnosis for this admission?: YesPlan: Blood-tinged sputum noted at the bedside, most likely due to paroxysms of cough and the severity of her pneumonia while on eliquis. Continue to hold anticoagulant and monitor for recurrence. CBC reassuring so far, continue to trend. (2) Pneumonia involving left lung Qualifiers: Pneumonia type: due to unspecified organism Lung location: upper lobe of lung Qualified Code(s): J18.1 - Lobar pneumonia, unspecified organism Is this a current diagnosis for this admission?: YesPlan: Given her recent hospitalizations and previous culture results she will need all the antibiotics including cefepime, gentamicin, azithromycin, vancomycin, and add Diflucan if she fails to improve. Consult pulmonary, may need bronchoscopy for BAL and culture. See Dr. Ahuja's notes for details (3) Acute on chronic respiratory failure with hypoxia and hypercapnia Is this a current diagnosis for this admission?: YesPlan: Improved. Continue nocturnal and as needed BiPAP. Normally wears 2-3 L of O2 continuous at home. She is also steroid dependent, so placed on Solu-Cortef 100 mg IV every 8 hours ok to taper down starting Saturday morning. (4) Adrenal insufficiency Is this a current diagnosis for this admission?: YesPlan: Systemic steroids as noted above. (5) ESBL (extended spectrum beta-lactamase) producing bacteria infection Is this a current diagnosis for this admission?: YesPlan: Awaiting final susceptibilities but should be covered by the gentamicin. (6) Chronic kidney disease Qualifiers: Chronic kidney disease stage: stage 3 (moderate) Qualified Code(s): N18.3 - Chronic kidney disease, stage 3 (moderate) Is this a current diagnosis for this admission?: Yes (7) Diabetes mellitus type II, controlled Qualifiers: Diabetes mellitus complication status: without complication Diabetes mellitus oysterman insulin use: without oysterman use Qualified Code(s): E11.9 - Type 2 diabetes mellitus without complications Is this a current diagnosis for this admission?: Yes (8) Diastolic dysfunction Is this a current diagnosis for this admission?: Yes (9) Dysphagia Qualifiers: Dysphagia type: unspecified Qualified Code(s): R13.10 - Dysphagia, unspecified Is this a current diagnosis for this admission?: Yes (10) History of MRSA infection Is this a current diagnosis for this admission?: Yes (11) Generalized anxiety disorder Is this a current diagnosis for this admission?: Yes (12) Obstructive sleep apnea Is this a current diagnosis for this admission?: Yes - Time Time Spent with patient: 15-24 minutes Medications reviewed and adjusted accordingly: Yes - Plan Summary Plan Summary: In spite of her willingness to admitted, clinically she does continue to improve day by day and will likely be ready for transfer back to [facility] in 48- 72 hours.
[2016-08-27] MEDS: VANCOMYCIN HCL 1,500 MG in DEXTROSE 5%-WATER 250 ML IV SCH (17:39)
[2016-08-27 19:25] LABS: CREATININE RESULT 0.77 mg/dL (0.52-1.25)
[2016-08-27] MEDS: AZITHROMYCIN 500 MG in DEXTROSE 5%-WATER 250 ML IV SCH (21:33)
[2016-08-27 23:01] LABS: GENTAMICIN-TROUGH 1.3 ug/mL (<2.0)
[2016-08-27] MEDS: GENTAMICIN SULFATE 200 MG in DEXTROSE 5%-WATER 100 ML IV SCH (23:54)
[2016-08-28] MEDS: CEFEPIME HCL 2 GM in DEXTROSE 5%-WATER 50 ML IV SCH (06:29)
[2016-08-28] MEDS: HYDROCORTISONE SOD SUCCINATE INJ/PF 100 MG/2 ML SDV IV SCH ×2 (06:29→17:55)
[2016-08-28] MEDS ORDERED: DILTIAZEM HCL INJ 25 MG/5 ML VIAL ONE (08:24)
[2016-08-28] MEDS: IPRATROPIUM/ALBUTEROL 0.5-2.5 MG/3 ML AMPUL NEB SCH ×2 (08:34→15:32)
[2016-08-28] MEDS: OXYCODONE HCL IR 5 MG TABLET PO PRN ×2 (08:54→15:57)
[2016-08-28] MEDS: ALPRAZOLAM 0.25 MG TABLET PO PRN ×2 (08:55→17:55)
[2016-08-28] MEDS ORDERED: DILTIAZEM HCL INJ 25 MG/5 ML VIAL IV ONE (09:00)
--- NOTE | 2016-08-28 09:42 | PDOC PROGRESS REPORT ---
Subjective Progress Note for:: 08/28/16 Subjective:: Patient is quite depressed this morning If family members suggested to her that should be on hospice She is crying, and went into A. fib with rapid ventricular rate at 170 The rate was controlled with 10 mg of Cardizem IV and we tried to comfort her Patient has had no fever no chills Under breathing appears stable; her oxygenation is adequate on nasal O2 and the urine grew Escherichia coli ESBL sensitive to ertapenem and resistant to gentamicin Physical Exam Vital Signs: Temp Pulse Resp BP Pulse Ox 98.4 F 92 20 170/84 H 98 08/28/16 08:00 08/28/16 08:00 08/28/16 08:00 08/28/16 08:00 08/28/16 08:00 Pulse Oximeter Continuous Start: 08/24/16 18: 36 Freq: RTQ4 Status: Complete Document 08/25/16 00:00 STI (Rec: 08/25/16 00:55 STI [email or web address]) Pulse Oximetry Assessment Oxygen Saturation (92-100) 100 Oxygen Delivery Method Bi-pap Fraction of Inspired Oxygen (FIO2) 50 Equipment Usage Equipment Standby Continuous SpO2 Machine # ER MONITOR Intake & Output 08/27/16 08/28/16 08/29/16 00:59 00:59 00:59 Intake Total 3226 2681 905 Output Total 2700 2940 425 Balance 526 -259 480 Weight 106.2 kg 107.2 kg 111.1 kg General appearance: PRESENT: mild distress, morbidly obese Head exam: PRESENT: atraumatic, normocephalic Eye exam: PRESENT: conjunctiva pink, EOMI, PERRLA. ABSENT: scleral icterus Ear exam: PRESENT: normal external ear exam Respiratory exam: PRESENT: decreased breath sounds, wheezes - Bilaterally. ABSENT: accessory muscle use Cardiovascular exam: PRESENT: irregular rhythm. ABSENT: diastolic murmur, rubs , systolic murmur GI/Abdominal exam: PRESENT: normal bowel sounds, soft - Obese. ABSENT: distended, guarding, mass, organolmegaly, rebound, tenderness Extremities exam: PRESENT: full ROM. ABSENT: calf tenderness, clubbing, pedal edema Neurological exam: PRESENT: alert, awake, oriented to person, oriented to place , oriented to time, oriented to situation, CN II-XII grossly intact. ABSENT: motor sensory deficit Results Laboratory Results: 08/26/16 06:00 08/27/16 18:49 08/27/16 18:49 Creatinine 0.77 Est GFR ( Amer) > 60 Est GFR (Non-Af Amer) > 60 08/25/16 04:40 Barton Catheter Urine Culture - Final Escherichia Coli Esbl 08/25/16 04:52 NT-Pro-B Natriuret Pep 585 Impressions: Chest X-Ray 08/24/16 16:10 IMPRESSION: Left basilar densities as noted above. Other findings as noted above Assessment & Plan - Diagnosis (1) Adrenal insufficiency Is this a current diagnosis for this admission?: Yes (2) Bronchitis, mucopurulent recurrent Is this a current diagnosis for this admission?: Yes (3) Diabetes mellitus type II, controlled Qualifiers: Diabetes mellitus complication status: without complication Diabetes mellitus watermelon harvesting supervisor insulin use: without watermelon harvesting supervisor use Qualified Code(s): E11.9 - Type 2 diabetes mellitus without complications Is this a current diagnosis for this admission?: Yes (4) Diastolic dysfunction Is this a current diagnosis for this admission?: Yes (5) UTI (urinary tract infection) due to urinary indwelling Barton catheter Qualifiers: Indwelling urinary catheter type: indwelling urethral catheter Encounter type: initial encounter Qualified Code(s): T83.511A - Infection and inflammatory reaction due to indwelling urethral catheter, initial encounter; N39.0 - Urinary tract infection, site not specified Is this a current diagnosis for this admission?: Yes (6) A-fib Qualifiers: Atrial fibrillation type: paroxysmal Qualified Code(s): I48.0 - Paroxysmal atrial fibrillation Is this a current diagnosis for this admission?: Yes (7) Do not resuscitate Is this a current diagnosis for this admission?: Yes (8) Generalized anxiety disorder Is this a current diagnosis for this admission?: Yes - Time Time Spent with patient: The antibiotics was switched to ertapenem and vancomycin We did add digoxin by mouth to the present medication regimen Continue all other medications as prescribed Unfortunately patient has a chronic condition, she clinically is deteriorating She wishes to be released again to [facility] when she is stable Time Spent with patient: 35 or more minutes
[2016-08-28] MEDS: FAMOTIDINE INJ/PF 20 MG/2 ML SDV IV SCH ×2 (11:25→21:20)
[2016-08-28] MEDS: DULOXETINE HCL 30 MG CAPSULE.DR PO SCH (11:25)
[2016-08-28] MEDS: DILTIAZEM HCL 240 MG CAPSULE.CR PO SCH (11:26)
[2016-08-28] MEDS: GABAPENTIN 300 MG CAPSULE PO SCH ×2 (11:26→21:21)
[2016-08-28] MEDS: PREGABALIN 100 MG CAPSULE PO SCH (11:26)
[2016-08-28] MEDS: GUAIFENESIN 600 MG TABLET.SA PO SCH ×2 (11:26→21:20)
[2016-08-28] MEDS: BENZONATATE 100 MG CAPSULE PO SCH ×3 (11:26→17:55)
[2016-08-28] MEDS: FENTANYL 50 MCG/HR PATCH.TD72 TD SCH (11:27)
[2016-08-28] MEDS: LACTULOSE SYRUP 20 GM/30 ML UDCUP PO SCH ×2 (11:29→17:56)
[2016-08-28] MEDS ORDERED: DIGOXIN 0.25 MG TABLET PO ONE (11:30)
[2016-08-28] MEDS: ALBUTEROL SULFATE 0.083% NEB 2.5 MG/3 ML AMPUL NEB PRN (14:35)
[2016-08-28] MEDS: INSULIN LISPRO 100 UNIT/ML 3 ML VIAL SUBCUT PRN ×2 (15:58→21:20)
[2016-08-28] MEDS: ERTAPENEM SODIUM 1 GM in NORMAL SALINE 50 ML IV SCH (16:04)
[2016-08-28] MEDS: ACETAMINOPHEN 325 MG TABLET PO PRN (17:54)
[2016-08-28] MEDS: VANCOMYCIN HCL 1,500 MG in DEXTROSE 5%-WATER 250 ML IV SCH (17:54)
--- NOTE | 2016-08-28 18:24 | EKG REPORT ---
SEVERITY:- ABNORMAL ECG - ATRIAL FIBRILLATION, V-RATE 70-110 NONSPECIFIC IVCD WITH LAD LATE TRANSITION. : Confirmed by: Inocencio Aguilar MD 28-Aug-2016 18:23:45
[2016-08-28] MEDS: DILTIAZEM HCL/D5W 125 MG/125 ML RTUINJ IV PRN (23:40)
[2016-08-29] MEDS: IPRATROPIUM/ALBUTEROL 0.5-2.5 MG/3 ML AMPUL NEB SCH ×3 (00:23→16:27)
[2016-08-29] MEDS: HYDROCORTISONE SOD SUCCINATE INJ/PF 100 MG/2 ML SDV IV SCH ×2 (06:10→17:38)
--- NOTE | 2016-08-29 08:28 | EKG REPORT ---
SEVERITY:- ABNORMAL ECG - SINUS TACHYCARDIA SUPRAVENTRICULAR BIGEMINY LEFT ANTERIOR FASCICULAR BLOCK PROBABLE LVH WITH SECONDARY REPOL ABNRM : Confirmed by: Inocencio Aguilar MD 29-Aug-2016 08:28:03
[2016-08-29] MEDS: DIGOXIN 0.25 MG TABLET PO SCH (09:00)
[2016-08-29] MEDS: DULOXETINE HCL 30 MG CAPSULE.DR PO SCH (09:01)
[2016-08-29] MEDS: GUAIFENESIN 600 MG TABLET.SA PO SCH ×2 (09:01→21:47)
[2016-08-29] MEDS: DILTIAZEM HCL/D5W 125 MG/125 ML RTUINJ IV PRN ×3 (09:01→23:22)
[2016-08-29] MEDS: LACTULOSE SYRUP 20 GM/30 ML UDCUP PO SCH ×2 (09:02→17:40)
[2016-08-29] MEDS: PREGABALIN 100 MG CAPSULE PO SCH (09:02)
[2016-08-29] MEDS: BENZONATATE 100 MG CAPSULE PO SCH ×3 (09:04→17:37)
[2016-08-29] MEDS: OXYCODONE HCL IR 5 MG TABLET PO PRN ×3 (09:04→21:48)
[2016-08-29] MEDS: ALPRAZOLAM 0.25 MG TABLET PO PRN ×2 (09:04→21:48)
[2016-08-29] MEDS: FAMOTIDINE INJ/PF 20 MG/2 ML SDV IV SCH ×2 (09:05→21:47)
[2016-08-29] MEDS: GABAPENTIN 300 MG CAPSULE PO SCH ×2 (09:05→21:47)
--- NOTE | 2016-08-29 12:05 | PDOC PROGRESS REPORT ---
Subjective Progress Note for:: 08/29/16 Subjective:: Patient is in atrial fibrillation was rapid ventricular rate She is on the Cardizem drip Yesterday we initiated digoxin IV and then by mouth We will give the patient metoprolol 50 mg by mouth every 12; and continue the Cardizem drip Lasix 20 mg IV every 12 was also ordered Patient is extremely depressed about her chronic condition And she states that she wishes to be DNR/DNI She has constipation no chest pain Physical Exam Vital Signs: Temp Pulse Resp BP Pulse Ox 98.2 F 91 18 153/77 H 95 08/29/16 07:52 08/29/16 07:49 08/29/16 07:52 08/29/16 06:02 08/29/16 07:52 Pulse Oximeter Continuous Start: 08/24/16 18: 36 Freq: RTQ4 Status: Complete Document 08/25/16 00:00 STI (Rec: 08/25/16 00:55 STI [email or web address]) Pulse Oximetry Assessment Oxygen Saturation (92-100) 100 Oxygen Delivery Method Bi-pap Fraction of Inspired Oxygen (FIO2) 50 Equipment Usage Equipment Standby Continuous SpO2 Machine # ER MONITOR Intake & Output 08/28/16 08/29/16 08/30/16 00:59 00:59 00:59 Intake Total 2681 2950 86 Output Total 2940 3125 Balance -259 -175 86 Weight 107.2 kg 111.1 kg General appearance: PRESENT: mild distress, morbidly obese Head exam: PRESENT: atraumatic, normocephalic Eye exam: PRESENT: conjunctiva pink, EOMI, PERRLA. ABSENT: scleral icterus Neck exam: ABSENT: carotid bruit, JVD, lymphadenopathy, thyromegaly Respiratory exam: PRESENT: decreased breath sounds, wheezes Cardiovascular exam: PRESENT: irregular rhythm. ABSENT: rubs, systolic murmur Pulses: PRESENT: normal dorsalis pedis pul Vascular exam: PRESENT: normal capillary refill Extremities exam: PRESENT: full ROM. ABSENT: calf tenderness, clubbing, pedal edema Neurological exam: PRESENT: alert, awake, oriented to person, oriented to place , oriented to time, oriented to situation, CN II-XII grossly intact. ABSENT: motor sensory deficit Results Laboratory Results: 08/26/16 06:00 08/27/16 18:49 08/25/16 04:52 NT-Pro-B Natriuret Pep 585 Impressions: Chest X-Ray 08/24/16 16:10 IMPRESSION: Left basilar densities as noted above. Other findings as noted above Assessment & Plan - Diagnosis (1) Adrenal insufficiency Is this a current diagnosis for this admission?: Yes (2) Bronchitis, mucopurulent recurrent Is this a current diagnosis for this admission?: Yes (3) Diabetes mellitus type II, controlled Qualifiers: Diabetes mellitus complication status: without complication Diabetes mellitus oil heaterman insulin use: without detention use Qualified Code(s): E11.9 - Type 2 diabetes mellitus without complications Is this a current diagnosis for this admission?: Yes (4) Diastolic dysfunction Is this a current diagnosis for this admission?: YesPlan: Chronic diastolic CHF we will diurese the patient (5) UTI (urinary tract infection) due to urinary indwelling Barton catheter Qualifiers: Indwelling urinary catheter type: indwelling urethral catheter Encounter type: initial encounter Qualified Code(s): T83.511A - Infection and inflammatory reaction due to indwelling urethral catheter, initial encounter; N39.0 - Urinary tract infection, site not specified Is this a current diagnosis for this admission?: Yes (6) A-fib Qualifiers: Atrial fibrillation type: paroxysmal Qualified Code(s): I48.0 - Paroxysmal atrial fibrillation Is this a current diagnosis for this admission?: YesPlan: A. fib with rapid ventricular rate Continue Cardizem IV Initiate beta blockers We'll keep the patient on Cardizem drip until rate is controlled (7) Do not resuscitate Is this a current diagnosis for this admission?: Yes (8) Generalized anxiety disorder Is this a current diagnosis for this admission?: Yes - Time Time Spent with patient: 25-34 minutes
[2016-08-29] MEDS ORDERED: FUROSEMIDE INJ/PF 40 MG/4 ML SDV IV ONE (12:30)
[2016-08-29] MEDS: ERTAPENEM SODIUM 1 GM in NORMAL SALINE 50 ML IV SCH (14:51)
[2016-08-29] MEDS: FUROSEMIDE INJ/PF 40 MG/4 ML SDV IV SCH (21:47)
[2016-08-29] MEDS: LINEZOLID 600 MG TABLET PO SCH (21:48)
[2016-08-29] MEDS: INSULIN LISPRO 100 UNIT/ML 3 ML VIAL SUBCUT PRN (21:49)
[2016-08-29] MEDS: ACETAMINOPHEN 325 MG TABLET PO PRN (23:30)
[2016-08-30] MEDS: IPRATROPIUM/ALBUTEROL 0.5-2.5 MG/3 ML AMPUL NEB SCH ×3 (00:16→16:26)
[2016-08-30] MEDS: HYDROCORTISONE SOD SUCCINATE INJ/PF 100 MG/2 ML SDV IV SCH ×2 (05:35→17:33)
[2016-08-30 06:00] LABS: HEMATOCRIT 33.6 % (36.0-47.0); HEMOGLOBIN 11.5 g/dL (12.0-15.5); HGB HCT DIFFERENCE 0.9; MEAN CORPUSCULAR HEMOGLOBIN 29.2 pg (27.0-33.4); MEAN CORPUSCULAR HGB CONC 34.1 g/dL (32.0-36.0); MEAN CORPUSCULAR VOLUME 86 fl (80-97); RED BLOOD COUNT 3.93 10^6/uL (3.72-5.28); RED CELL DISTRIBUTION WIDTH 15.6 % (11.5-14.0); WHITE BLOOD COUNT 9.4 10^3/uL (4.0-10.5)
[2016-08-30 06:08] LABS: ANION GAP 12 (5-19); BLOOD UREA NITROGEN 13 mg/dL (7-20); CALCIUM 8.9 mg/dL (8.4-10.2); CARBON DIOXIDE 32 mmol/L (22-30); CHLORIDE 97 mmol/L (98-107); CREATININE RESULT 0.69 mg/dL (0.52-1.25); GLUCOSE 144 mg/dL (75-110)
[2016-08-30 06:48] LABS: POTASSIUM 2.9 mmol/L (3.6-5.0)
[2016-08-30 06:54] LABS: BAND NEUTROPHILS % (MANUAL) 2 % (3-5); BASOPHILS % (MANUAL) 1 % (0-2); EOSINOPHILS % (MANUAL) 2 % (0-6); LYMPHOCYTES % (MANUAL) 11 % (13-45); TOTAL CELLS COUNTED 100
[2016-08-30 06:55] LABS: ANISOCYTOSIS SLIGHT; HYPOCHROMASIA SLIGHT; OVALOCYTES SLIGHT; POIKILOCYTOSIS SLIGHT; POLYCHROMASIA SLIGHT; TOXIC GRANULATION SLIGHT
[2016-08-30] MEDS: DILTIAZEM HCL/D5W 125 MG/125 ML RTUINJ IV PRN (07:29)
[2016-08-30] MEDS: POTASSIUM CHLORIDE 20 MEQ/50 ML RTU IV SCH ×3 (07:32→12:03)
[2016-08-30] MEDS: FUROSEMIDE INJ/PF 40 MG/4 ML SDV IV SCH ×2 (09:37→21:32)
[2016-08-30] MEDS: FAMOTIDINE INJ/PF 20 MG/2 ML SDV IV SCH ×2 (09:37→21:32)
[2016-08-30] MEDS: OXYCODONE HCL IR 5 MG TABLET PO PRN ×2 (09:38→17:33)
[2016-08-30] MEDS: PREGABALIN 100 MG CAPSULE PO SCH (09:38)
[2016-08-30] MEDS: GABAPENTIN 300 MG CAPSULE PO SCH ×2 (09:38→21:33)
[2016-08-30] MEDS: DULOXETINE HCL 30 MG CAPSULE.DR PO SCH (09:38)
[2016-08-30] MEDS: ALPRAZOLAM 0.25 MG TABLET PO PRN ×2 (09:39→17:33)
[2016-08-30] MEDS: LINEZOLID 600 MG TABLET PO SCH ×2 (09:39→21:33)
[2016-08-30] MEDS: BENZONATATE 100 MG CAPSULE PO SCH ×3 (09:39→17:33)
[2016-08-30] MEDS: GUAIFENESIN 600 MG TABLET.SA PO SCH ×2 (09:39→21:33)
[2016-08-30] MEDS: DIGOXIN 0.25 MG TABLET PO SCH (09:40)
[2016-08-30] MEDS: LACTULOSE SYRUP 20 GM/30 ML UDCUP PO SCH ×2 (09:43→17:25)
[2016-08-30] MEDS: ERTAPENEM SODIUM 1 GM in NORMAL SALINE 50 ML IV SCH (12:09)
[2016-08-30] MEDS: INSULIN LISPRO 100 UNIT/ML 3 ML VIAL SUBCUT PRN ×2 (12:20→21:32)
[2016-08-30] MEDS: ACETAMINOPHEN 325 MG TABLET PO PRN (21:32)
[2016-08-31] MEDS: IPRATROPIUM/ALBUTEROL 0.5-2.5 MG/3 ML AMPUL NEB SCH ×3 (00:01→15:53)
[2016-08-31] MEDS: DILTIAZEM HCL/D5W 125 MG/125 ML RTUINJ IV PRN ×3 (00:02→16:15)
[2016-08-31] MEDS: HYDROCORTISONE SOD SUCCINATE INJ/PF 100 MG/2 ML SDV IV SCH (05:10)
[2016-08-31 07:02] LABS: ANION GAP 7 (5-19); BLOOD UREA NITROGEN 16 mg/dL (7-20); CALCIUM 9.5 mg/dL (8.4-10.2); CHLORIDE 95 mmol/L (98-107); CREATININE RESULT 0.93 mg/dL (0.52-1.25); GLUCOSE 172 mg/dL (75-110); POTASSIUM 3.3 mmol/L (3.6-5.0); SODIUM 141.7 mmol/L (137-145)
[2016-08-31 07:24] LABS: CARBON DIOXIDE 40 mmol/L (22-30)
[2016-08-31] MEDS: OXYCODONE HCL IR 5 MG TABLET PO PRN ×2 (07:51→18:13)
[2016-08-31] MEDS: ALPRAZOLAM 0.25 MG TABLET PO PRN ×2 (07:52→18:13)
[2016-08-31] MEDS ORDERED: POTASSIUM CHLORIDE 10 MEQ TABLET.SA PO ONE (09:30)
[2016-08-31 10:07] LABS: ARTERIAL BLOOD BASE EXCESS 11.2 mmol/L; ARTERIAL BLOOD O2 SATURATION 93.2 % (94-98)
[2016-08-31] MEDS: FUROSEMIDE INJ/PF 40 MG/4 ML SDV IV SCH ×2 (10:13→22:35)
[2016-08-31] MEDS: FENTANYL 50 MCG/HR PATCH.TD72 TD SCH (10:14)
[2016-08-31] MEDS: FAMOTIDINE INJ/PF 20 MG/2 ML SDV IV SCH ×2 (10:14→22:35)
[2016-08-31] MEDS: DULOXETINE HCL 30 MG CAPSULE.DR PO SCH (10:17)
[2016-08-31] MEDS: GUAIFENESIN 600 MG TABLET.SA PO SCH ×2 (10:18→22:34)
[2016-08-31] MEDS: POTASSIUM CHLORIDE 10 MEQ TABLET.SA PO SCH ×2 (10:18→22:34)
[2016-08-31] MEDS: LINEZOLID 600 MG TABLET PO SCH ×2 (10:18→22:34)
[2016-08-31] MEDS: DILTIAZEM HCL 60 MG TABLET PO SCH ×3 (10:19→23:51)
[2016-08-31] MEDS: BENZONATATE 100 MG CAPSULE PO SCH ×3 (10:19→18:13)
[2016-08-31] MEDS: DIGOXIN 0.25 MG TABLET PO SCH (10:20)
[2016-08-31] MEDS: PREGABALIN 100 MG CAPSULE PO SCH (10:20)
[2016-08-31] MEDS: GABAPENTIN 300 MG CAPSULE PO SCH ×2 (10:20→22:34)
[2016-08-31] MEDS: LACTULOSE SYRUP 20 GM/30 ML UDCUP PO SCH ×2 (10:21→18:10)
[2016-08-31] MEDS: ACETAMINOPHEN 325 MG TABLET PO PRN ×2 (10:29→22:35)
[2016-08-31] MEDS: ERTAPENEM SODIUM 1 GM in NORMAL SALINE 50 ML IV SCH (11:41)
[2016-08-31] MEDS: INSULIN LISPRO 100 UNIT/ML 3 ML VIAL SUBCUT PRN (12:21)
--- NOTE | 2016-08-31 16:26 | PDOC PROGRESS REPORT ---
Subjective Progress Note for:: 08/31/16 Subjective:: still anxious and complaining of SOB overall stable ABG's performed this am compatible with chronic respiratory acidosis Physical Exam Vital Signs: Temp Pulse Resp BP Pulse Ox 98.3 F 91 16 126/89 H 96 08/31/16 05:00 08/31/16 15:53 08/31/16 15:53 08/31/16 15:43 08/31/16 15:53 Pulse Oximeter Continuous Start: 08/24/16 18: 36 Freq: RTQ4 Status: Complete Document 08/25/16 00:00 STI (Rec: 08/25/16 00:55 STI [id number]) Pulse Oximetry Assessment Oxygen Saturation (92-100) 100 Oxygen Delivery Method Bi-pap Fraction of Inspired Oxygen (FIO2) 50 Equipment Usage Equipment Standby Continuous SpO2 Machine # ER MONITOR Intake & Output 08/30/16 08/31/16 09/01/16 00:59 00:59 00:59 Intake Total 2381 2599 1006 Output Total 5707 6360 600 Balance -7377 -5035 406 Weight 111.1 kg 108.5 kg 109.2 kg General appearance: PRESENT: no acute distress Head exam: PRESENT: atraumatic Eye exam: PRESENT: conjunctiva pink, EOMI, PERRLA. ABSENT: scleral icterus Neck exam: ABSENT: carotid bruit, JVD, lymphadenopathy, thyromegaly Respiratory exam: PRESENT: decreased breath sounds, wheezes. ABSENT: rales, rhonchi Cardiovascular exam: PRESENT: irregular rhythm. ABSENT: diastolic murmur, rubs , systolic murmur GI/Abdominal exam: PRESENT: normal bowel sounds, soft. ABSENT: distended, guarding, mass, organolmegaly, rebound, tenderness Neurological exam: PRESENT: alert, awake, oriented to person, oriented to place , oriented to time, oriented to situation, CN II-XII grossly intact. ABSENT: motor sensory deficit Results Laboratory Results: 08/30/16 05:43 08/31/16 05:15 08/31/16 08/31/16 05:15 09:38 Carbonic Acid 1.90 H HCO3/H2CO3 Ratio 20:1 ABG pH 7.40 ABG pCO2 63.2 H ABG pO2 68.3 L ABG HCO3 38.6 H ABG O2 Saturation 93.2 L ABG Base Excess 11.2 FiO2 2L Sodium 141.7 Potassium 3.3 L Chloride 95 L Carbon Dioxide 40 H* Anion Gap 7 BUN 16 Creatinine 0.93 Est GFR ( Amer) > 60 Est GFR (Non-Af Amer) 59 L Glucose 172 H Calcium 9.5 Magnesium 2.0 08/25/16 04:52 NT-Pro-B Natriuret Pep 585 Impressions: Chest X-Ray 08/24/16 16:10 IMPRESSION: Left basilar densities as noted above. Other findings as noted above Assessment & Plan - Diagnosis (1) Adrenal insufficiency Is this a current diagnosis for this admission?: Yes (2) Bronchitis, mucopurulent recurrent Is this a current diagnosis for this admission?: Yes (3) Diabetes mellitus type II, controlled Qualifiers: Diabetes mellitus complication status: without complication Diabetes mellitus termite inspector insulin use: without termite inspector use Qualified Code(s): E11.9 - Type 2 diabetes mellitus without complications Is this a current diagnosis for this admission?: Yes (4) Diastolic dysfunction Is this a current diagnosis for this admission?: Yes (5) UTI (urinary tract infection) due to urinary indwelling Barton catheter Qualifiers: Indwelling urinary catheter type: indwelling urethral catheter Encounter type: initial encounter Qualified Code(s): T83.511A - Infection and inflammatory reaction due to indwelling urethral catheter, initial encounter; N39.0 - Urinary tract infection, site not specified Is this a current diagnosis for this admission?: Yes (6) A-fib Qualifiers: Atrial fibrillation type: paroxysmal Qualified Code(s): I48.0 - Paroxysmal atrial fibrillation Is this a current diagnosis for this admission?: Yes (7) Do not resuscitate Is this a current diagnosis for this admission?: Yes (8) Generalized anxiety disorder Is this a current diagnosis for this admission?: Yes - Time Time Spent with patient: will continue present Rx investigating pulmonary rehab for patient at discharge if possible Time Spent with patient: 25-34 minutes
[2016-09-01] MEDS: INSULIN LISPRO 100 UNIT/ML 3 ML VIAL SUBCUT PRN (00:03)
[2016-09-01] MEDS: DILTIAZEM HCL/D5W 125 MG/125 ML RTUINJ IV PRN ×2 (00:03→08:35)
[2016-09-01] MEDS: IPRATROPIUM/ALBUTEROL 0.5-2.5 MG/3 ML AMPUL NEB SCH ×2 (00:11→08:34)
[2016-09-01] MEDS: DILTIAZEM HCL 60 MG TABLET PO SCH (05:50)
--- NOTE | 2016-09-01 09:13 | PDOC TRANSFER SUMMARY ---
General Admission Date/PCP: 08/24/16 18:30 MUSA HODGSON MD Admission Date: 08/24/16 Transfer Date: 09/01/16 Accepting Facility: Other (Comments) - [facility] Resuscitation Status: Full Code - She willingly rescinded her DO NOT RESUSCITATE order. - Transfer Diagnosis (1) Bronchitis, mucopurulent recurrent Is this a current diagnosis for this admission?: YesDiagnosis Summary: reccurent MRSA and various gram negative infections Patient has been on tobramycin nebs for prolonged time without improvement 08/01/16 06:30 Urine Culture - Final Catheterized Urine Providencia Stuartii Pseudomonas Aeruginosa 07/30/16 05:30 Gram Stain - Final Sputum Sputum Culture - Final Mrsa (Meth Resis Staph Aureus) C.albicans/C.dubliniensis Normal Catarina 07/12/16 10:30 Gram Stain - Final Sputum Sputum Culture - Final Mrsa (Meth Resis Staph Aureus) Klebsiella Pneumoniae C.albicans/C.dubliniensis Normal Catarina Absent 07/12/16 00:34 Urine Culture - Final Catheterized Urine Proteus Mirabilis Escherichia Coli Esbl currently on ertapenem and Linezolid CXR did not show any infiltrate (2) Diabetes mellitus type II, controlled Is this a current diagnosis for this admission?: YesDiagnosis Summary: insulin dependant faily well controlled 08/16/16 08/31/16 08/31/16 12:10 11:44 16:17 POC Glucose 216 H 138 H Hemoglobin A1c % 6.7 H 08/31/16 09/01/16 22:39 05:48 POC Glucose 190 H 148 H Hemoglobin A1c % (3) Diastolic dysfunction Is this a current diagnosis for this admission?: YesDiagnosis Summary: Acute on chronic diastolic CHF last Echo in 2013 shows EF 50-55% and diastolic dysfunction Patient has been treated with IV lasix and improved (4) UTI (urinary tract infection) due to urinary indwelling Ghotra catheter Is this a current diagnosis for this admission?: YesDiagnosis Summary: reccurent ESBL infection and sepsis Patient has an indwelling ghotra currently treated with Ertapenem 06/10/16 08:20 Urine Culture - Final Catheterized Urine Escherichia Coli Esbl 08/25/16 04:40 Urine Culture - Final Ghotra Catheter Escherichia Coli Esbl 07/12/16 00:34 Urine Culture - Final Catheterized Urine Proteus Mirabilis Escherichia Coli Esbl (5) A-fib Is this a current diagnosis for this admission?: YesDiagnosis Summary: Paroxysmal afib with RVR was on cardizem drip which is being tapered down treated with cardizem , metoprolol, digoxin Patient had bloody sputum on admission Eliquis was held bleeding resolved ; we resumed anticoagualtion at time of transfer with eliquis 5 mg po bid H/H has been stable 08/30/16 05:43 Hgb 11.5 L Hct 33.6 L Plt Count 195 (6) Do not resuscitate Is this a current diagnosis for this admission?: Yes (7) Generalized anxiety disorder Is this a current diagnosis for this admission?: Yes (8) Respiratory failure with hypercapnia Is this a current diagnosis for this admission?: YesDiagnosis Summary: acute and chronic respiratory failure with hypoxemia and hypercapnia using bipap at night last ABG's : 08/31/16 09:38 ABG pH 7.40 ABG pCO2 63.2 H ABG pO2 68.3 L ABG HCO3 38.6 H ABG O2 Saturation 93.2 L FiO2 2L (9) Chronic kidney disease Is this a current diagnosis for this admission?: YesDiagnosis Summary: CKD stage 3 08/31/16 05:15 BUN 16 Creatinine 0.93 Est GFR (Non-Af Amer) 59 L (10) Morbid (severe) obesity with alveolar hypoventilation Is this a current diagnosis for this admission?: YesDiagnosis Summary: BMI 44 - Transfer Medications Home Medications: Fluticasone Propionate [Flonase Nasal [place] 50 Mcg/[place] 16 gm] 2 spray IH Q12 04/02/15 Olopatadine HCl [Patanol 0.1% Oph Soln 5 ml] 1 drop BTH_EYE DAILY 04/02/15 Tiotropium [place] [Spiriva Handihaler 18 mcg/dose (30 Dose)] 1 cap IH DAILY 09/12 Apixaban [Eliquis 2.5 mg Tablet] 2.5 mg PO BID 09/09/15 Cetirizine HCl [Zyrtec 10 mg Tablet] 10 mg PO QHS 09/09/15 Montelukast Sodium [Singulair 10 mg Tablet] 10 mg PO DAILY 09/09/15 Polyethylene Glycol 3350 [Miralax Powder 17 gm/Packet] 1 packet PO BID 05/09/16 Simethicone [Gas-X] 80 mg PO DAILYP PRN 11/07/15 Melatonin 5 mg PO QHS 11/13/15 Clonidine HCl [Catapres 0.2 mg Tablet] 0.2 mg PO Q12 01/05/16 Duloxetine HCl [Cymbalta] 90 mg PO DAILY 01/05/16 Ferrous Sulfate [Feosol] 325 mg PO BID 01/05/16 Saccharomyces Boulardii [Florastor] 250 mg PO BID 01/05/16 Albuterol Sulfate [Ventolin 0.083% Neb 2.5 mg/3 mL Ampul] 2.5 mg NEB RTQ6 PRN Ipratropium [place] [Atrovent 0.06% Nasal [place]] 1 spray NASL BID 02/12/16 Hydrocortisone Acetate [Hydrocortisone] 1 applic TOP Q8 04/18/16 Omeprazole Magnesium [Prilosec Otc] 20 mg PO QAM 06/10/16 Acetaminophen [Tylenol 325 mg Tablet] 650 mg PO Q4HP PRN 07/12/16 Alprazolam [Xanax 0.25 mg Tablet] 0.25 mg PO Q8 08/27/16 Gabapentin [Neurontin 300 mg Capsule] 300 mg PO Q12 08/27/16 Transfer Medications: Current Medications Acetaminophen (Tylenol 325 Mg Tablet) 650 mg PO Q4HP PRN PRN Reason: pain or temp greater than 101F Stop: 09/23/16 18:39 Last Admin: 08/31/16 22:35 Dose: 650 mg Albuterol (Ventolin 0.083% Neb 2.5 Mg/3 Ml Ampul) 2.5 mg NEB RTQ2HP PRN PRN Reason: SHORTNESS OF BREATH/WHEEZING Stop: 09/23/16 18:29 Last Admin: 08/28/16 14:35 Dose: 2.5 mg Albuterol/Ipratropium (Duoneb 3 Ml Ampul) 3 ml NEB RTQ8 ASA Stop: 09/24/16 00:00 Last Admin: 09/01/16 08:34 Dose: 3 ml Alprazolam (Xanax 0.25 Mg Tablet) 0.25 mg PO Q8HP PRN PRN Reason: ANXIETY Stop: 09/02/16 08:13 Last Admin: 08/31/16 18:13 Dose: 0.25 mg Benzonatate (Tessalon Perles 100 Mg Capsule) 100 mg PO TID [facility] Stop: 09/25/16 17:59 Last Admin: 08/31/16 18:13 Dose: 100 mg Dextrose (Dextrose Inj 50% Syringe (25 Gm/50 Ml)) 12.5 gm IV PRN PRN; Protocol PRN Reason: FOR BG 50-69 IN ALERT PATIENT Stop: 09/23/16 19:04 Dextrose (Dextrose Inj 50% Syringe (25 Gm/50 Ml)) 25 gm IV PRN PRN PRN Reason: Protocol Stop: 09/23/16 19:04 Digoxin (Lanoxin 0.25 Mg Tablet) 0.25 mg PO DAILY [facility] Stop: 09/28/16 09:59 Last Admin: 08/31/16 10:20 Dose: 0.25 mg Diltiazem HCl (Cardizem 60 Mg Tablet) 60 mg PO Q6 ASA Stop: 09/30/16 11:59 Last Admin: 09/01/16 05:50 Dose: 60 mg Duloxetine HCl (Cymbalta 30 Mg Capsule.Dr) 90 mg PO DAILY ASA Stop: 09/25/16 09:59 Last Admin: 08/31/16 10:17 Dose: 90 mg Famotidine (Pepcid Inj/Pf 20 Mg/2 Ml Sdv) 20 mg IV Q12 ASA Stop: 09/23/16 21:59 Last Admin: 08/31/16 22:35 Dose: 20 mg Fentanyl (Duragesic 50 Mcg/Hr Transdermal Patch) 1 each TD Q3DAYS ASA Stop: 09/04/16 09:59 Last Admin: 08/31/16 10:14 Dose: 1 each Furosemide (Lasix Inj/Pf 40 Mg/4 Ml Sdv) 40 mg IV Q12 ASA Stop: 09/28/16 21:59 Last Admin: 08/31/16 22:35 Dose: 40 mg Gabapentin (Neurontin 300 Mg Capsule) 300 mg PO Q12 ASA Stop: 09/24/16 21:59 Last Admin: 08/31/16 22:34 Dose: 300 mg Glucagon (Glucagen Inj 1 Mg Vial) 1 mg IM PRN PRN; Protocol PRN Reason: Evaluate for BG < 70 Stop: 09/23/16 19:04 Glucose (Glutose 40% Gel 15 Gm Tube) 15 gm PO PRN PRN; Protocol PRN Reason: FOR BG 50-69 IN ALERT PATIENT Stop: 09/23/16 19:04 Glucose (Glutose 40% Gel 15 Gm Tube) 30 gm PO PRN PRN; Protocol PRN Reason: FOR BG < 50 IN ALERT PATIENT Stop: 09/23/16 19:04 Guaifenesin (Mucinex Sr 600 Mg Tablet.Sa) 1,200 mg PO Q12 [facility] Stop: 09/25/16 21:59 Last Admin: 08/31/16 22:34 Dose: 1,200 mg Ertapenem 1 gm/ Sodium (Chloride) 50 mls @ 100 mls/hr IV DAILY@1200 ASA Stop: 09/04/16 11:59 Last Admin: 08/31/16 11:41 Dose: 1 gm Diltiazem HCl (Cardizem Rtu Inj 125 Mg-D5w 125 Ml Premix) 125 mg in 125 mls @ 0 mls/hr IV CONTINUOUS PRN; Protocol; Titrate PRN Reason: THIS MED IS NOT "PRN" Stop: 09/27/16 20:29 Last Admin: 09/01/16 08:35 Dose: 125 ml Insulin Human Lispro (Humalog Insulin 100 Unit/1 Ml 3 Ml Vial) 0 - 12 unit SUBCUT Q6HP PRN PRN Reason: Protocol Stop: 09/23/16 19:04 Last Admin: 09/01/16 00:03 Dose: 2 unit Lactulose (Cephulac Syrup 20 Gm/30 Ml Udcup) 20 gm PO BID [facility] Stop: 09/25/16 09:59 Last Admin: 08/31/16 18:10 Dose: Not Given Linezolid (Zyvox 600 Mg Tablet) 600 mg PO Q12 [facility] Stop: 09/05/16 21:59 Last Admin: 08/31/16 22:34 Dose: 600 mg Oxycodone HCl (Oxy-Ir 5 Mg Tablet) 5 mg PO Q6HP PRN PRN Reason: FOR PAIN Stop: 09/01/16 11:50 Last Admin: 08/31/16 18:13 Dose: 5 mg Potassium Chloride (Klor-Con 10 Meq Tablet.Sa) 20 meq PO Q12 [facility] Stop: 09/30/16 09:59 Last Admin: 08/31/16 22:34 Dose: 20 meq Pregabalin (Lyrica 100 Mg Capsule) 100 mg PO DAILY [facility] Stop: 09/25/16 09:59 Last Admin: 08/31/16 10:20 Dose: 100 mg Sodium Chloride (Saline Flush 2.5 Ml Monoject Prefil Syrin) 2.5 ml IV Q8 [facility] Stop: 09/23/16 21:59 Last Admin: 09/01/16 05:50 Dose: 2.5 ml Apixaban 5 mg po bid - Allergies Allergies/Adverse Reactions: Sulfa (Sulfonamide Antibiotics) Allergy (Intermediate, Verified 07/29/16 21:27) adhesive tape Allergy (Verified 07/29/16 21:27) atorvastatin calcium [From Lipitor] Allergy (Verified 07/29/16 21:27) celecoxib [From Celebrex] Allergy (Verified 07/29/16 21:27) - Diet/Activity Discharge Diet: Diabetic Discharge Activity: Bedrest Hospital Course Hospital Course: 71 year old female with multiple comorbid conditions currently a resident at [facility] just recently discharged from this facility for an MRSA bronchitis and multidrug resistant Pseudomonas urinary tract infection with underlying O2 and steroid dependent COPD, morbid obesity, obstructive sleep apnea CPAP dependent presents to the emergency department with a 2 to three-day history of progressive shortness of breath and cough productive of phlegm. She reported to staff at temperature of 104.2 at the facility and spiked a fever to 101 while in our emergency department according to my conversation with the ER physician. With her temperature she started having RIGORS, became confused and reportedly dropped her O2 sat 78% in spite of her usual supplemental O2; as a result she is now on BiPAP therapy with an FiO2 of 50% pressures of 14/6 and rate 12. She is currently lethargic, difficult to awaken for long periods of time and therefore unable to get a reliable review of systems her medical history at this time. According to the emergency room physician, and while in her right state of mind , she expressed her desire for intubation and wished to resend her community DO NOT RESUSCITATE. Evaluation in the emergency department is consistent with a left lower lobe pneumonia and acute on chronic hypoxic respiratory failure requiring admission to the ICU for further treatment and monitoring. Of note, in review of her previous cultures she grows extremely resistant organisms in her sputum including a carbopenem resistant Klebsiella susceptible only to gentamicin, MRSA, Cookie albicans, Moraxella paralysis, Pseudomonas aeruginosa among others. Patient improved somewhat during hospital stay we felt strongly that she should be transfered to pulmonary rehab facility as she failed to improve in the past 6 montjhs and her condition is slowly deteriorating see above for detailed issues Physical Exam Vital Signs: Temp Pulse Resp BP Pulse Ox 97.7 F 89 14 133/65 H 96 09/01/16 04:00 09/01/16 08:34 09/01/16 08:34 09/01/16 08:12 09/01/16 08:34 Pulse Oximeter Continuous Start: 08/24/16 18: 36 Freq: RTQ4 Status: Complete Document 08/25/16 00:00 STI (Rec: 08/25/16 00:55 STI [id number]) Pulse Oximetry Assessment Oxygen Saturation (92-100) 100 Oxygen Delivery Method Bi-pap Fraction of Inspired Oxygen (FIO2) 50 Equipment Usage Equipment Standby Continuous SpO2 Machine # ER MONITOR Intake & Output 08/31/16 09/01/16 09/02/16 00:59 00:59 00:59 Intake Total 7811 3335 570 Output Total 6395 2700 1000 Balance -3726 635 -430 Weight 108.5 kg 109.2 kg 106.6 kg General appearance: PRESENT: no acute distress, morbidly obese Head exam: PRESENT: atraumatic, normocephalic Eye exam: PRESENT: conjunctiva pink, EOMI, PERRLA. ABSENT: scleral icterus Neck exam: ABSENT: carotid bruit, JVD, lymphadenopathy, thyromegaly Respiratory exam: PRESENT: decreased breath sounds, wheezes - occasional. ABSENT: accessory muscle use Pulses: PRESENT: normal dorsalis pedis pul Vascular exam: PRESENT: normal capillary refill GI/Abdominal exam: PRESENT: normal bowel sounds, soft. ABSENT: distended, guarding, mass, organolmegaly, rebound, tenderness Extremities exam: PRESENT: full ROM. ABSENT: calf tenderness, clubbing, pedal edema Neurological exam: PRESENT: alert, awake, CN II-XII grossly intact Skin exam: PRESENT: dry, intact, warm. ABSENT: cyanosis, rash Results Laboratory Results: 08/30/16 05:43 08/31/16 05:15 08/31/16 09:38 Carbonic Acid 1.90 H HCO3/H2CO3 Ratio 20:1 ABG pH 7.40 ABG pCO2 63.2 H ABG pO2 68.3 L ABG HCO3 38.6 H ABG O2 Saturation 93.2 L ABG Base Excess 11.2 FiO2 2L 08/25/16 04:52 NT-Pro-B Natriuret Pep 585 Labs- Entire Visit 08/24/16 08/24/16 08/24/16 16:28 16:28 16:28 WBC 9.4 RBC 3.80 Hgb 11.1 L Hct 33.5 L MCV 88 MCH 29.3 MCHC 33.2 RDW 16.3 H Plt Count 174 Total Counted Seg Neutrophils % 74.6 Seg Neuts % (Manual) Band Neutrophils % Lymphocytes % 16.1 Lymphocytes % (Manual) Monocytes % 8.0 Monocytes % (Manual) Eosinophils % 1.0 Eosinophils % (Manual) Basophils % 0.3 Basophils % (Manual) Metamyelocytes % Absolute Neutrophils 7.0 Abs Neuts (Manual) Absolute Lymphocytes 1.5 Abs Lymphs (Manual) Absolute Monocytes 0.7 Abs Monocytes (Manual) Absolute Eosinophils 0.1 Absolute Eos (Manual) Absolute Basophils 0.0 Abs Basophils (Manual) Toxic Granulation Platelet Comment Polychromasia Hypochromasia Poikilocytosis Anisocytosis Ovalocytes PT 15.1 INR 1.15 Carbonic Acid HCO3/H2CO3 Ratio ABG pH ABG pCO2 ABG pO2 ABG HCO3 ABG Total CO2 ABG O2 Saturation ABG Base Excess VBG pH VBG pCO2 VBG HCO3 VBG Base Excess FiO2 Sodium 140.3 Potassium 3.6 Chloride 96 L Carbon Dioxide 34 H Anion Gap 10 BUN 27 H Creatinine 1.12 Est GFR ( Amer) 58 L Est GFR (Non-Af Amer) 48 L Glucose 97 POC Glucose Lactic Acid Calcium 9.6 Magnesium Total Bilirubin 0.7 Direct Bilirubin 0.0 AST 19 ALT 34 Alkaline Phosphatase 86 Troponin I NT-Pro-B Natriuret Pep Total Protein 6.2 L Albumin 3.4 L Urine Color Urine Appearance Urine pH Ur Specific [place] Urine Protein Urine Glucose (UA) Urine Ketones Urine Blood Urine Nitrite Urine Bilirubin Urine Urobilinogen Ur Leukocyte Esterase Urine WBC (Auto) Urine RBC (Auto) Urine Bacteria (Auto) Urine WBC Clumps Squamous Epi Cells Auto U Non-Squamous Epis Auto Amorphous Sediment Auto Urine Mucus (Auto) Urine Ascorbic Acid Time Trough Drawn Gentamicin Trough Vancomycin Trough Digoxin 08/24/16 08/24/16 08/24/16 16:28 16:28 16:28 WBC RBC Hgb Hct MCV MCH MCHC RDW Plt Count Total Counted Seg Neutrophils % Seg Neuts % (Manual) Band Neutrophils % Lymphocytes % Lymphocytes % (Manual) Monocytes % Monocytes % (Manual) Eosinophils % Eosinophils % (Manual) Basophils % Basophils % (Manual) Metamyelocytes % Absolute Neutrophils Abs Neuts (Manual) Absolute Lymphocytes Abs Lymphs (Manual) Absolute Monocytes Abs Monocytes (Manual) Absolute Eosinophils Absolute Eos (Manual) Absolute Basophils Abs Basophils (Manual) Toxic Granulation Platelet Comment Polychromasia Hypochromasia Poikilocytosis Anisocytosis Ovalocytes PT INR Carbonic Acid HCO3/H2CO3 Ratio ABG pH ABG pCO2 ABG pO2 ABG HCO3 ABG Total CO2 ABG O2 Saturation ABG Base Excess VBG pH 7.45 H VBG pCO2 50.3 VBG HCO3 34.5 H VBG Base Excess 9.1 FiO2 Sodium Potassium Chloride Carbon Dioxide Anion Gap BUN Creatinine Est GFR ( Amer) Est GFR (Non-Af Amer) Glucose POC Glucose Lactic Acid 1.3 Calcium Magnesium Total Bilirubin Direct Bilirubin AST ALT Alkaline Phosphatase Troponin I 0.053 NT-Pro-B Natriuret Pep 676 Total Protein Albumin Urine Color Urine Appearance Urine pH Ur Specific [place] Urine Protein Urine Glucose (UA) Urine Ketones Urine Blood Urine Nitrite Urine Bilirubin Urine Urobilinogen Ur Leukocyte Esterase Urine WBC (Auto) Urine RBC (Auto) Urine Bacteria (Auto) Urine WBC Clumps Squamous Epi Cells Auto U Non-Squamous Epis Auto Amorphous Sediment Auto Urine Mucus (Auto) Urine Ascorbic Acid Time Trough Drawn Gentamicin Trough Vancomycin Trough Digoxin 08/24/16 08/24/16 08/24/16 16:50 19:55 20:01 WBC RBC Hgb Hct MCV MCH MCHC RDW Plt Count Total Counted Seg Neutrophils % Seg Neuts % (Manual) Band Neutrophils % Lymphocytes % Lymphocytes % (Manual) Monocytes % Monocytes % (Manual) Eosinophils % Eosinophils % (Manual) Basophils % Basophils % (Manual) Metamyelocytes % Absolute Neutrophils Abs Neuts (Manual) Absolute Lymphocytes Abs Lymphs (Manual) Absolute Monocytes Abs Monocytes (Manual) Absolute Eosinophils Absolute Eos (Manual) Absolute Basophils Abs Basophils (Manual) Toxic Granulation Platelet Comment Polychromasia Hypochromasia Poikilocytosis Anisocytosis Ovalocytes PT INR Carbonic Acid 1.54 H HCO3/H2CO3 Ratio 20:1 ABG pH 7.41 ABG pCO2 51.1 H ABG pO2 74.7 L ABG HCO3 32.0 H ABG Total CO2 33.5 H ABG O2 Saturation 95.0 ABG Base Excess 6.2 VBG pH VBG pCO2 VBG HCO3 VBG Base Excess FiO2 50% Sodium Potassium Chloride Carbon Dioxide Anion Gap BUN Creatinine Est GFR ( Amer) Est GFR (Non-Af Amer) Glucose POC Glucose 97 125 H Lactic Acid Calcium Magnesium Total Bilirubin Direct Bilirubin AST ALT Alkaline Phosphatase Troponin I NT-Pro-B Natriuret Pep Total Protein Albumin Urine Color Urine Appearance Urine pH Ur Specific [place] Urine Protein Urine Glucose (UA) Urine Ketones Urine Blood Urine Nitrite Urine Bilirubin Urine Urobilinogen Ur Leukocyte Esterase Urine WBC (Auto) Urine RBC (Auto) Urine Bacteria (Auto) Urine WBC Clumps Squamous Epi Cells Auto U Non-Squamous Epis Auto Amorphous Sediment Auto Urine Mucus (Auto) Urine Ascorbic Acid Time Trough Drawn Gentamicin Trough Vancomycin Trough Digoxin 08/25/16 08/25/16 08/25/16 01:09 04:40 04:52 WBC 11.5 H RBC 3.78 Hgb 11.1 L Hct 32.9 L MCV 87 MCH 29.5 MCHC 33.9 RDW 16.1 H Plt Count 137 L Total Counted 100 Seg Neutrophils % Not Reportable Seg Neuts % (Manual) 94 H Band Neutrophils % Lymphocytes % Not Reportable Lymphocytes % (Manual) 3 L Monocytes % Not Reportable Monocytes % (Manual) 3 Eosinophils % Not Reportable Eosinophils % (Manual) 0 Basophils % Not Reportable Basophils % (Manual) 0 Metamyelocytes % Absolute Neutrophils Not Reportable Abs Neuts (Manual) 10.8 H Absolute Lymphocytes Not Reportable Abs Lymphs (Manual) 0.3 L Absolute Monocytes Not Reportable Abs Monocytes (Manual) 0.3 Absolute Eosinophils Not Reportable Absolute Eos (Manual) 0.0 Absolute Basophils Not Reportable Abs Basophils (Manual) 0.0 Toxic Granulation SLIGHT Platelet Comment DECREASED Polychromasia SLIGHT Hypochromasia Poikilocytosis SLIGHT Anisocytosis 1+ Ovalocytes SLIGHT PT INR Carbonic Acid HCO3/H2CO3 Ratio ABG pH ABG pCO2 ABG pO2 ABG HCO3 ABG Total CO2 ABG O2 Saturation ABG Base Excess VBG pH 7.34 VBG pCO2 67.0 H* VBG HCO3 35.5 H VBG Base Excess 7.6 FiO2 Sodium Potassium Chloride Carbon Dioxide Anion Gap BUN Creatinine Est GFR ( Amer) Est GFR (Non-Af Amer) Glucose POC Glucose Lactic Acid Calcium Magnesium Total Bilirubin Direct Bilirubin AST ALT Alkaline Phosphatase Troponin I NT-Pro-B Natriuret Pep Total Protein Albumin Urine Color YELLOW Urine Appearance CLOUDY Urine pH 5.0 Ur Specific [place] 1.016 Urine Protein 30 H Urine Glucose (UA) 150 H Urine Ketones TRACE H Urine Blood SMALL H Urine Nitrite NEGATIVE Urine Bilirubin NEGATIVE Urine Urobilinogen NEGATIVE Ur Leukocyte Esterase LARGE H Urine WBC (Auto) >182 Urine RBC (Auto) 7 Urine Bacteria (Auto) 3+ Urine WBC Clumps MANY Squamous Epi Cells Auto 2 U Non-Squamous Epis Auto 2 Amorphous Sediment Auto 1+ Urine Mucus (Auto) RARE Urine Ascorbic Acid NEGATIVE Time Trough Drawn Gentamicin Trough Vancomycin Trough Digoxin 08/25/16 08/25/16 08/25/16 04:52 04:52 05:05 WBC RBC Hgb Hct MCV MCH MCHC RDW Plt Count Total Counted Seg Neutrophils % Seg Neuts % (Manual) Band Neutrophils % Lymphocytes % Lymphocytes % (Manual) Monocytes % Monocytes % (Manual) Eosinophils % Eosinophils % (Manual) Basophils % Basophils % (Manual) Metamyelocytes % Absolute Neutrophils Abs Neuts (Manual) Absolute Lymphocytes Abs Lymphs (Manual) Absolute Monocytes Abs Monocytes (Manual) Absolute Eosinophils Absolute Eos (Manual) Absolute Basophils Abs Basophils (Manual) Toxic Granulation Platelet Comment Polychromasia Hypochromasia Poikilocytosis Anisocytosis Ovalocytes PT INR Carbonic Acid HCO3/H2CO3 Ratio ABG pH ABG pCO2 ABG pO2 ABG HCO3 ABG Total CO2 ABG O2 Saturation ABG Base Excess VBG pH 7.39 VBG pCO2 55.8 VBG HCO3 33.3 H VBG Base Excess 6.9 FiO2 Sodium 138.7 Potassium 4.3 Chloride 97 L Carbon Dioxide 31 H Anion Gap 11 BUN 25 H Creatinine 0.84 Est GFR ( Amer) > 60 Est GFR (Non-Af Amer) > 60 Glucose 285 H POC Glucose Lactic Acid Calcium 9.6 Magnesium Total Bilirubin Direct Bilirubin AST ALT Alkaline Phosphatase Troponin I NT-Pro-B Natriuret Pep 585 Total Protein Albumin Urine Color Urine Appearance Urine pH Ur Specific [place] Urine Protein Urine Glucose (UA) Urine Ketones Urine Blood Urine Nitrite Urine Bilirubin Urine Urobilinogen Ur Leukocyte Esterase Urine WBC (Auto) Urine RBC (Auto) Urine Bacteria (Auto) Urine WBC Clumps Squamous Epi Cells Auto U Non-Squamous Epis Auto Amorphous Sediment Auto Urine Mucus (Auto) Urine Ascorbic Acid Time Trough Drawn Gentamicin Trough Vancomycin Trough Digoxin 08/25/16 08/26/16 08/26/16 16:42 00:07 06:00 WBC 9.8 RBC 3.30 L Hgb 9.7 L Hct 28.7 L MCV 87 MCH 29.4 MCHC 33.7 RDW 15.8 H Plt Count 155 Total Counted Seg Neutrophils % 85.3 H Seg Neuts % (Manual) Band Neutrophils % Lymphocytes % 7.9 L Lymphocytes % (Manual) Monocytes % 6.6 Monocytes % (Manual) Eosinophils % 0.1 Eosinophils % (Manual) Basophils % 0.1 Basophils % (Manual) Metamyelocytes % Absolute Neutrophils 8.4 H Abs Neuts (Manual) Absolute Lymphocytes 0.8 Abs Lymphs (Manual) Absolute Monocytes 0.6 Abs Monocytes (Manual) Absolute Eosinophils 0.0 Absolute Eos (Manual) Absolute Basophils 0.0 Abs Basophils (Manual) Toxic Granulation Platelet Comment Polychromasia Hypochromasia Poikilocytosis Anisocytosis Ovalocytes PT INR Carbonic Acid HCO3/H2CO3 Ratio ABG pH ABG pCO2 ABG pO2 ABG HCO3 ABG Total CO2 ABG O2 Saturation ABG Base Excess VBG pH VBG pCO2 VBG HCO3 VBG Base Excess FiO2 Sodium Potassium Chloride Carbon Dioxide Anion Gap BUN Creatinine Est GFR ( Amer) Est GFR (Non-Af Amer) Glucose POC Glucose 130 H 187 H Lactic Acid Calcium Magnesium Total Bilirubin Direct Bilirubin AST ALT Alkaline Phosphatase Troponin I NT-Pro-B Natriuret Pep Total Protein Albumin Urine Color Urine Appearance Urine pH Ur Specific [place] Urine Protein Urine Glucose (UA) Urine Ketones Urine Blood Urine Nitrite Urine Bilirubin Urine Urobilinogen Ur Leukocyte Esterase Urine WBC (Auto) Urine RBC (Auto) Urine Bacteria (Auto) Urine WBC Clumps Squamous Epi Cells Auto U Non-Squamous Epis Auto Amorphous Sediment Auto Urine Mucus (Auto) Urine Ascorbic Acid Time Trough Drawn Gentamicin Trough Vancomycin Trough Digoxin 08/26/16 08/26/16 08/26/16 06:00 11:32 16:44 WBC RBC Hgb Hct MCV MCH MCHC RDW Plt Count Total Counted Seg Neutrophils % Seg Neuts % (Manual) Band Neutrophils % Lymphocytes % Lymphocytes % (Manual) Monocytes % Monocytes % (Manual) Eosinophils % Eosinophils % (Manual) Basophils % Basophils % (Manual) Metamyelocytes % Absolute Neutrophils Abs Neuts (Manual) Absolute Lymphocytes Abs Lymphs (Manual) Absolute Monocytes Abs Monocytes (Manual) Absolute Eosinophils Absolute Eos (Manual) Absolute Basophils Abs Basophils (Manual) Toxic Granulation Platelet Comment Polychromasia Hypochromasia Poikilocytosis Anisocytosis Ovalocytes PT INR Carbonic Acid HCO3/H2CO3 Ratio ABG pH ABG pCO2 ABG pO2 ABG HCO3 ABG Total CO2 ABG O2 Saturation ABG Base Excess VBG pH VBG pCO2 VBG HCO3 VBG Base Excess FiO2 Sodium 140.0 Potassium 3.6 Chloride 99 Carbon Dioxide 32 H Anion Gap 9 BUN 23 H Creatinine 0.87 Est GFR ( Amer) > 60 Est GFR (Non-Af Amer) > 60 Glucose 128 H POC Glucose 214 H 145 H Lactic Acid Calcium 9.5 Magnesium Total Bilirubin Direct Bilirubin AST ALT Alkaline Phosphatase Troponin I NT-Pro-B Natriuret Pep Total Protein Albumin Urine Color Urine Appearance Urine pH Ur Specific [place] Urine Protein Urine Glucose (UA) Urine Ketones Urine Blood Urine Nitrite Urine Bilirubin Urine Urobilinogen Ur Leukocyte Esterase Urine WBC (Auto) Urine RBC (Auto) Urine Bacteria (Auto) Urine WBC Clumps Squamous Epi Cells Auto U Non-Squamous Epis Auto Amorphous Sediment Auto Urine Mucus (Auto) Urine Ascorbic Acid Time Trough Drawn Gentamicin Trough Vancomycin Trough Digoxin 08/26/16 08/27/16 08/27/16 23:39 06:53 11:09 WBC RBC Hgb Hct MCV MCH MCHC RDW Plt Count Total Counted Seg Neutrophils % Seg Neuts % (Manual) Band Neutrophils % Lymphocytes % Lymphocytes % (Manual) Monocytes % Monocytes % (Manual) Eosinophils % Eosinophils % (Manual) Basophils % Basophils % (Manual) Metamyelocytes % Absolute Neutrophils Abs Neuts (Manual) Absolute Lymphocytes Abs Lymphs (Manual) Absolute Monocytes Abs Monocytes (Manual) Absolute Eosinophils Absolute Eos (Manual) Absolute Basophils Abs Basophils (Manual) Toxic Granulation Platelet Comment Polychromasia Hypochromasia Poikilocytosis Anisocytosis Ovalocytes PT INR Carbonic Acid HCO3/H2CO3 Ratio ABG pH ABG pCO2 ABG pO2 ABG HCO3 ABG Total CO2 ABG O2 Saturation ABG Base Excess VBG pH VBG pCO2 VBG HCO3 VBG Base Excess FiO2 Sodium Potassium Chloride Carbon Dioxide Anion Gap BUN Creatinine Est GFR ( Amer) Est GFR (Non-Af Amer) Glucose POC Glucose 158 H 156 H 227 H Lactic Acid Calcium Magnesium Total Bilirubin Direct Bilirubin AST ALT Alkaline Phosphatase Troponin I NT-Pro-B Natriuret Pep Total Protein Albumin Urine Color Urine Appearance Urine pH Ur Specific [place] Urine Protein Urine Glucose (UA) Urine Ketones Urine Blood Urine Nitrite Urine Bilirubin Urine Urobilinogen Ur Leukocyte Esterase Urine WBC (Auto) Urine RBC (Auto) Urine Bacteria (Auto) Urine WBC Clumps Squamous Epi Cells Auto U Non-Squamous Epis Auto Amorphous Sediment Auto Urine Mucus (Auto) Urine Ascorbic Acid Time Trough Drawn Gentamicin Trough Vancomycin Trough Digoxin 08/27/16 08/27/16 08/27/16 16:30 18:49 18:49 WBC RBC Hgb Hct MCV MCH MCHC RDW Plt Count Total Counted Seg Neutrophils % Seg Neuts % (Manual) Band Neutrophils % Lymphocytes % Lymphocytes % (Manual) Monocytes % Monocytes % (Manual) Eosinophils % Eosinophils % (Manual) Basophils % Basophils % (Manual) Metamyelocytes % Absolute Neutrophils Abs Neuts (Manual) Absolute Lymphocytes Abs Lymphs (Manual) Absolute Monocytes Abs Monocytes (Manual) Absolute Eosinophils Absolute Eos (Manual) Absolute Basophils Abs Basophils (Manual) Toxic Granulation Platelet Comment Polychromasia Hypochromasia Poikilocytosis Anisocytosis Ovalocytes PT INR Carbonic Acid HCO3/H2CO3 Ratio ABG pH ABG pCO2 ABG pO2 ABG HCO3 ABG Total CO2 ABG O2 Saturation ABG Base Excess VBG pH VBG pCO2 VBG HCO3 VBG Base Excess FiO2 Sodium Potassium Chloride Carbon Dioxide Anion Gap BUN Creatinine 0.77 Est GFR ( Amer) > 60 Est GFR (Non-Af Amer) > 60 Glucose POC Glucose 167 H Lactic Acid Calcium Magnesium Total Bilirubin Direct Bilirubin AST ALT Alkaline Phosphatase Troponin I NT-Pro-B Natriuret Pep Total Protein Albumin Urine Color Urine Appearance Urine pH Ur Specific [place] Urine Protein Urine Glucose (UA) Urine Ketones Urine Blood Urine Nitrite Urine Bilirubin Urine Urobilinogen Ur Leukocyte Esterase Urine WBC (Auto) Urine RBC (Auto) Urine Bacteria (Auto) Urine WBC Clumps Squamous Epi Cells Auto U Non-Squamous Epis Auto Amorphous Sediment Auto Urine Mucus (Auto) Urine Ascorbic Acid Time Trough Drawn 1849 Gentamicin Trough Vancomycin Trough 10.8 Digoxin 08/27/16 08/27/16 08/28/16 21:41 22:00 06:32 WBC RBC Hgb Hct MCV MCH MCHC RDW Plt Count Total Counted Seg Neutrophils % Seg Neuts % (Manual) Band Neutrophils % Lymphocytes % Lymphocytes % (Manual) Monocytes % Monocytes % (Manual) Eosinophils % Eosinophils % (Manual) Basophils % Basophils % (Manual) Metamyelocytes % Absolute Neutrophils Abs Neuts (Manual) Absolute Lymphocytes Abs Lymphs (Manual) Absolute Monocytes Abs Monocytes (Manual) Absolute Eosinophils Absolute Eos (Manual) Absolute Basophils Abs Basophils (Manual) Toxic Granulation Platelet Comment Polychromasia Hypochromasia Poikilocytosis Anisocytosis Ovalocytes PT INR Carbonic Acid HCO3/H2CO3 Ratio ABG pH ABG pCO2 ABG pO2 ABG HCO3 ABG Total CO2 ABG O2 Saturation ABG Base Excess VBG pH VBG pCO2 VBG HCO3 VBG Base Excess FiO2 Sodium Potassium Chloride Carbon Dioxide Anion Gap BUN Creatinine Est GFR ( Amer) Est GFR (Non-Af Amer) Glucose POC Glucose 201 H 148 H Lactic Acid Calcium Magnesium Total Bilirubin Direct Bilirubin AST ALT Alkaline Phosphatase Troponin I NT-Pro-B Natriuret Pep Total Protein Albumin Urine Color Urine Appearance Urine pH Ur Specific [place] Urine Protein Urine Glucose (UA) Urine Ketones Urine Blood Urine Nitrite Urine Bilirubin Urine Urobilinogen Ur Leukocyte Esterase Urine WBC (Auto) Urine RBC (Auto) Urine Bacteria (Auto) Urine WBC Clumps Squamous Epi Cells Auto U Non-Squamous Epis Auto Amorphous Sediment Auto Urine Mucus (Auto) Urine Ascorbic Acid Time Trough Drawn 2200 Gentamicin Trough 1.3 Vancomycin Trough Digoxin 08/28/16 08/28/16 08/28/16 11:24 18:00 21:07 WBC RBC Hgb Hct MCV MCH MCHC RDW Plt Count Total Counted Seg Neutrophils % Seg Neuts % (Manual) Band Neutrophils % Lymphocytes % Lymphocytes % (Manual) Monocytes % Monocytes % (Manual) Eosinophils % Eosinophils % (Manual) Basophils % Basophils % (Manual) Metamyelocytes % Absolute Neutrophils Abs Neuts (Manual) Absolute Lymphocytes Abs Lymphs (Manual) Absolute Monocytes Abs Monocytes (Manual) Absolute Eosinophils Absolute Eos (Manual) Absolute Basophils Abs Basophils (Manual) Toxic Granulation Platelet Comment Polychromasia Hypochromasia Poikilocytosis Anisocytosis Ovalocytes PT INR Carbonic Acid HCO3/H2CO3 Ratio ABG pH ABG pCO2 ABG pO2 ABG HCO3 ABG Total CO2 ABG O2 Saturation ABG Base Excess VBG pH VBG pCO2 VBG HCO3 VBG Base Excess FiO2 Sodium Potassium Chloride Carbon Dioxide Anion Gap BUN Creatinine Est GFR ( Amer) Est GFR (Non-Af Amer) Glucose POC Glucose 208 H 93 167 H Lactic Acid Calcium Magnesium Total Bilirubin Direct Bilirubin AST ALT Alkaline Phosphatase Troponin I NT-Pro-B Natriuret Pep Total Protein Albumin Urine Color Urine Appearance Urine pH Ur Specific [place] Urine Protein Urine Glucose (UA) Urine Ketones Urine Blood Urine Nitrite Urine Bilirubin Urine Urobilinogen Ur Leukocyte Esterase Urine WBC (Auto) Urine RBC (Auto) Urine Bacteria (Auto) Urine WBC Clumps Squamous Epi Cells Auto U Non-Squamous Epis Auto Amorphous Sediment Auto Urine Mucus (Auto) Urine Ascorbic Acid Time Trough Drawn Gentamicin Trough Vancomycin Trough Digoxin 08/28/16 08/29/16 08/29/16 22:39 06:11 11:48 WBC RBC Hgb Hct MCV MCH MCHC RDW Plt Count Total Counted Seg Neutrophils % Seg Neuts % (Manual) Band Neutrophils % Lymphocytes % Lymphocytes % (Manual) Monocytes % Monocytes % (Manual) Eosinophils % Eosinophils % (Manual) Basophils % Basophils % (Manual) Metamyelocytes % Absolute Neutrophils Abs Neuts (Manual) Absolute Lymphocytes Abs Lymphs (Manual) Absolute Monocytes Abs Monocytes (Manual) Absolute Eosinophils Absolute Eos (Manual) Absolute Basophils Abs Basophils (Manual) Toxic Granulation Platelet Comment Polychromasia Hypochromasia Poikilocytosis Anisocytosis Ovalocytes PT INR Carbonic Acid HCO3/H2CO3 Ratio ABG pH ABG pCO2 ABG pO2 ABG HCO3 ABG Total CO2 ABG O2 Saturation ABG Base Excess VBG pH VBG pCO2 VBG HCO3 VBG Base Excess FiO2 Sodium Potassium Chloride Carbon Dioxide Anion Gap BUN Creatinine Est GFR ( Amer) Est GFR (Non-Af Amer) Glucose POC Glucose 131 H 172 H Lactic Acid Calcium Magnesium Total Bilirubin Direct Bilirubin AST ALT Alkaline Phosphatase Troponin I NT-Pro-B Natriuret Pep Total Protein Albumin Urine Color Urine Appearance Urine pH Ur Specific [place] Urine Protein Urine Glucose (UA) Urine Ketones Urine Blood Urine Nitrite Urine Bilirubin Urine Urobilinogen Ur Leukocyte Esterase Urine WBC (Auto) Urine RBC (Auto) Urine Bacteria (Auto) Urine WBC Clumps Squamous Epi Cells Auto U Non-Squamous Epis Auto Amorphous Sediment Auto Urine Mucus (Auto) Urine Ascorbic Acid Time Trough Drawn Gentamicin Trough Vancomycin Trough Digoxin 0.41 L 08/29/16 08/29/16 08/30/16 15:52 21:20 05:43 WBC RBC Hgb Hct MCV MCH MCHC RDW Plt Count Total Counted Seg Neutrophils % Seg Neuts % (Manual) Band Neutrophils % Lymphocytes % Lymphocytes % (Manual) Monocytes % Monocytes % (Manual) Eosinophils % Eosinophils % (Manual) Basophils % Basophils % (Manual) Metamyelocytes % Absolute Neutrophils Abs Neuts (Manual) Absolute Lymphocytes Abs Lymphs (Manual) Absolute Monocytes Abs Monocytes (Manual) Absolute Eosinophils Absolute Eos (Manual) Absolute Basophils Abs Basophils (Manual) Toxic Granulation Platelet Comment Polychromasia Hypochromasia Poikilocytosis Anisocytosis Ovalocytes PT INR Carbonic Acid HCO3/H2CO3 Ratio ABG pH ABG pCO2 ABG pO2 ABG HCO3 ABG Total CO2 ABG O2 Saturation ABG Base Excess VBG pH VBG pCO2 VBG HCO3 VBG Base Excess FiO2 Sodium 141.0 Potassium 2.9 L* Chloride 97 L Carbon Dioxide 32 H Anion Gap 12 BUN 13 Creatinine 0.69 Est GFR ( Amer) > 60 Est GFR (Non-Af Amer) > 60 Glucose 144 H POC Glucose 183 H 248 H Lactic Acid Calcium 8.9 Magnesium Total Bilirubin Direct Bilirubin AST ALT Alkaline Phosphatase Troponin I NT-Pro-B Natriuret Pep Total Protein Albumin Urine Color Urine Appearance Urine pH Ur Specific [place] Urine Protein Urine Glucose (UA) Urine Ketones Urine Blood Urine Nitrite Urine Bilirubin Urine Urobilinogen Ur Leukocyte Esterase Urine WBC (Auto) Urine RBC (Auto) Urine Bacteria (Auto) Urine WBC Clumps Squamous Epi Cells Auto U Non-Squamous Epis Auto Amorphous Sediment Auto Urine Mucus (Auto) Urine Ascorbic Acid Time Trough Drawn Gentamicin Trough Vancomycin Trough Digoxin 08/30/16 08/30/16 08/30/16 05:43 05:58 11:13 WBC 9.4 RBC 3.93 Hgb 11.5 L Hct 33.6 L MCV 86 MCH 29.2 MCHC 34.1 RDW 15.6 H Plt Count 195 Total Counted 100 Seg Neutrophils % Not Reportable Seg Neuts % (Manual) 69 Band Neutrophils % 2 L Lymphocytes % Not Reportable Lymphocytes % (Manual) 11 L Monocytes % Not Reportable Monocytes % (Manual) 14 H Eosinophils % Not Reportable Eosinophils % (Manual) 2 Basophils % Not Reportable Basophils % (Manual) 1 Metamyelocytes % 1 H Absolute Neutrophils Not Reportable Abs Neuts (Manual) 6.8 Absolute Lymphocytes Not Reportable Abs Lymphs (Manual) 1.0 Absolute Monocytes Not Reportable Abs Monocytes (Manual) 1.3 Absolute Eosinophils Not Reportable Absolute Eos (Manual) 0.2 Absolute Basophils Not Reportable Abs Basophils (Manual) 0.1 Toxic Granulation SLIGHT Platelet Comment ADEQUATE Polychromasia SLIGHT Hypochromasia SLIGHT Poikilocytosis SLIGHT Anisocytosis SLIGHT Ovalocytes SLIGHT PT INR Carbonic Acid HCO3/H2CO3 Ratio ABG pH ABG pCO2 ABG pO2 ABG HCO3 ABG Total CO2 ABG O2 Saturation ABG Base Excess VBG pH VBG pCO2 VBG HCO3 VBG Base Excess FiO2 Sodium Potassium Chloride Carbon Dioxide Anion Gap BUN Creatinine Est GFR ( Amer) Est GFR (Non-Af Amer) Glucose POC Glucose 145 H 217 H Lactic Acid Calcium Magnesium Total Bilirubin Direct Bilirubin AST ALT Alkaline Phosphatase Troponin I NT-Pro-B Natriuret Pep Total Protein Albumin Urine Color Urine Appearance Urine pH Ur Specific [place] Urine Protein Urine Glucose (UA) Urine Ketones Urine Blood Urine Nitrite Urine Bilirubin Urine Urobilinogen Ur Leukocyte Esterase Urine WBC (Auto) Urine RBC (Auto) Urine Bacteria (Auto) Urine WBC Clumps Squamous Epi Cells Auto U Non-Squamous Epis Auto Amorphous Sediment Auto Urine Mucus (Auto) Urine Ascorbic Acid Time Trough Drawn Gentamicin Trough Vancomycin Trough Digoxin 08/30/16 08/30/16 08/31/16 15:51 21:04 05:15 WBC RBC Hgb Hct MCV MCH MCHC RDW Plt Count Total Counted Seg Neutrophils % Seg Neuts % (Manual) Band Neutrophils % Lymphocytes % Lymphocytes % (Manual) Monocytes % Monocytes % (Manual) Eosinophils % Eosinophils % (Manual) Basophils % Basophils % (Manual) Metamyelocytes % Absolute Neutrophils Abs Neuts (Manual) Absolute Lymphocytes Abs Lymphs (Manual) Absolute Monocytes Abs Monocytes (Manual) Absolute Eosinophils Absolute Eos (Manual) Absolute Basophils Abs Basophils (Manual) Toxic Granulation Platelet Comment Polychromasia Hypochromasia Poikilocytosis Anisocytosis Ovalocytes PT INR Carbonic Acid HCO3/H2CO3 Ratio ABG pH ABG pCO2 ABG pO2 ABG HCO3 ABG Total CO2 ABG O2 Saturation ABG Base Excess VBG pH VBG pCO2 VBG HCO3 VBG Base Excess FiO2 Sodium 141.7 Potassium 3.3 L Chloride 95 L Carbon Dioxide 40 H* Anion Gap 7 BUN 16 Creatinine 0.93 Est GFR ( Amer) > 60 Est GFR (Non-Af Amer) 59 L Glucose 172 H POC Glucose 136 H 199 H Lactic Acid Calcium 9.5 Magnesium 2.0 Total Bilirubin Direct Bilirubin AST ALT Alkaline Phosphatase Troponin I NT-Pro-B Natriuret Pep Total Protein Albumin Urine Color Urine Appearance Urine pH Ur Specific [place] Urine Protein Urine Glucose (UA) Urine Ketones Urine Blood Urine Nitrite Urine Bilirubin Urine Urobilinogen Ur Leukocyte Esterase Urine WBC (Auto) Urine RBC (Auto) Urine Bacteria (Auto) Urine WBC Clumps Squamous Epi Cells Auto U Non-Squamous Epis Auto Amorphous Sediment Auto Urine Mucus (Auto) Urine Ascorbic Acid Time Trough Drawn Gentamicin Trough Vancomycin Trough Digoxin 08/31/16 08/31/16 08/31/16 06:17 09:38 11:44 WBC RBC Hgb Hct MCV MCH MCHC RDW Plt Count Total Counted Seg Neutrophils % Seg Neuts % (Manual) Band Neutrophils % Lymphocytes % Lymphocytes % (Manual) Monocytes % Monocytes % (Manual) Eosinophils % Eosinophils % (Manual) Basophils % Basophils % (Manual) Metamyelocytes % Absolute Neutrophils Abs Neuts (Manual) Absolute Lymphocytes Abs Lymphs (Manual) Absolute Monocytes Abs Monocytes (Manual) Absolute Eosinophils Absolute Eos (Manual) Absolute Basophils Abs Basophils (Manual) Toxic Granulation Platelet Comment Polychromasia Hypochromasia Poikilocytosis Anisocytosis Ovalocytes PT INR Carbonic Acid 1.90 H HCO3/H2CO3 Ratio 20:1 ABG pH 7.40 ABG pCO2 63.2 H ABG pO2 68.3 L ABG HCO3 38.6 H ABG Total CO2 40.6 H ABG O2 Saturation 93.2 L ABG Base Excess 11.2 VBG pH VBG pCO2 VBG HCO3 VBG Base Excess FiO2 2L Sodium Potassium Chloride Carbon Dioxide Anion Gap BUN Creatinine Est GFR ( Amer) Est GFR (Non-Af Amer) Glucose POC Glucose 157 H 216 H Lactic Acid Calcium Magnesium Total Bilirubin Direct Bilirubin AST ALT Alkaline Phosphatase Troponin I NT-Pro-B Natriuret Pep Total Protein Albumin Urine Color Urine Appearance Urine pH Ur Specific [place] Urine Protein Urine Glucose (UA) Urine Ketones Urine Blood Urine Nitrite Urine Bilirubin Urine Urobilinogen Ur Leukocyte Esterase Urine WBC (Auto) Urine RBC (Auto) Urine Bacteria (Auto) Urine WBC Clumps Squamous Epi Cells Auto U Non-Squamous Epis Auto Amorphous Sediment Auto Urine Mucus (Auto) Urine Ascorbic Acid Time Trough Drawn Gentamicin Trough Vancomycin Trough Digoxin 08/31/16 08/31/16 09/01/16 16:17 22:39 05:48 WBC RBC Hgb Hct MCV MCH MCHC RDW Plt Count Total Counted Seg Neutrophils % Seg Neuts % (Manual) Band Neutrophils % Lymphocytes % Lymphocytes % (Manual) Monocytes % Monocytes % (Manual) Eosinophils % Eosinophils % (Manual) Basophils % Basophils % (Manual) Metamyelocytes % Absolute Neutrophils Abs Neuts (Manual) Absolute Lymphocytes Abs Lymphs (Manual) Absolute Monocytes Abs Monocytes (Manual) Absolute Eosinophils Absolute Eos (Manual) Absolute Basophils Abs Basophils (Manual) Toxic Granulation Platelet Comment Polychromasia Hypochromasia Poikilocytosis Anisocytosis Ovalocytes PT INR Carbonic Acid HCO3/H2CO3 Ratio ABG pH ABG pCO2 ABG pO2 ABG HCO3 ABG Total CO2 ABG O2 Saturation ABG Base Excess VBG pH VBG pCO2 VBG HCO3 VBG Base Excess FiO2 Sodium Potassium Chloride Carbon Dioxide Anion Gap BUN Creatinine Est GFR ( Amer) Est GFR (Non-Af Amer) Glucose POC Glucose 138 H 190 H 148 H Lactic Acid Calcium Magnesium Total Bilirubin Direct Bilirubin AST ALT Alkaline Phosphatase Troponin I NT-Pro-B Natriuret Pep Total Protein Albumin Urine Color Urine Appearance Urine pH Ur Specific [place] Urine Protein Urine Glucose (UA) Urine Ketones Urine Blood Urine Nitrite Urine Bilirubin Urine Urobilinogen Ur Leukocyte Esterase Urine WBC (Auto) Urine RBC (Auto) Urine Bacteria (Auto) Urine WBC Clumps Squamous Epi Cells Auto U Non-Squamous Epis Auto Amorphous Sediment Auto Urine Mucus (Auto) Urine Ascorbic Acid Time Trough Drawn Gentamicin Trough Vancomycin Trough Digoxin EKG Comments: SINUS TACHYCARDIA [SVBIG] . SUPRAVENTRICULAR BIGEMINY [LAFB] . LEFT ANTERIOR FASCICULAR BLOCK [LVHPRE] . PROBABLE LVH WITH SECONDARY REPOL ABNRM Impressions: Chest X-Ray 08/24/16 16:10 IMPRESSION: Left basilar densities as noted above. Other findings as noted above Plan Discharge Plan: transfer to [facility] Time Spent: Greater than 30 Minutes
[2016-09-01] MEDS ORDERED: APIXABAN 2.5 MG TABLET PO SCH ×2 (10:00)
[2016-09-01] MEDS: FAMOTIDINE INJ/PF 20 MG/2 ML SDV IV SCH (10:16)
[2016-09-01] MEDS: FUROSEMIDE INJ/PF 40 MG/4 ML SDV IV SCH (10:16)
[2016-09-01] MEDS: OXYCODONE HCL IR 5 MG TABLET PO PRN (10:17)
[2016-09-01] MEDS: ALPRAZOLAM 0.25 MG TABLET PO PRN (10:18)
[2016-09-01] MEDS: DIGOXIN 0.25 MG TABLET PO SCH (10:18)
[2016-09-01] MEDS: DULOXETINE HCL 30 MG CAPSULE.DR PO SCH (10:18)
[2016-09-01] MEDS: ACETAMINOPHEN 325 MG TABLET PO PRN (10:19)
[2016-09-01] MEDS: POTASSIUM CHLORIDE 10 MEQ TABLET.SA PO SCH (10:19)
[2016-09-01] MEDS: BENZONATATE 100 MG CAPSULE PO SCH (10:20)
[2016-09-01] MEDS: GUAIFENESIN 600 MG TABLET.SA PO SCH (10:20)
[2016-09-01] MEDS: GABAPENTIN 300 MG CAPSULE PO SCH (10:21)
[2016-09-01] MEDS: PREGABALIN 100 MG CAPSULE PO SCH (10:21)
[2016-09-01] MEDS: LACTULOSE SYRUP 20 GM/30 ML UDCUP PO SCH (10:27)
[2016-09-01] MEDS: LINEZOLID 600 MG TABLET PO SCH (10:27)
[2016-09-01 13:21] VITALS: BP 123/86
== END 2016-09-01 12:20 | disposition hospice, home (50) | DRG 190 ==
LOC: ER 15:42 → EH 18:30 → ICU 08-25 04:30 → 5 08-25 14:49 → 3N 08-28 23:32
PROVIDERS: ADMIT Family Medicine; ATTEND Family Medicine
DX: J41.1 Mucopurulent chronic bronchitis (principal); I50.33 Acute on chronic diastolic (congestive) heart failure; J96.21 Acute and chronic respiratory failure with hypoxia; J96.22 Acute and chronic respiratory failure with hypercapnia; I13.0 Hypertensive heart and chronic kidney disease with heart failure and stage 1 through stage 4 chronic kidney disease, or unspecified chronic kidney disease; Z68.41 Body mass index [BMI] 40.0-44.9, adult; T83.511A Infection and inflammatory reaction due to indwelling urethral catheter, initial encounter; N39.0 Urinary tract infection, site not specified; E27.40 Unspecified adrenocortical insufficiency; Z16.12 Extended spectrum beta lactamase (ESBL) resistance; B96.20 Unspecified Escherichia coli [E. coli] as the cause of diseases classified elsewhere; E11.22 Type 2 diabetes mellitus with diabetic chronic kidney disease; R13.10 Dysphagia, unspecified; F41.1 Generalized anxiety disorder; N18.3 Chronic kidney disease, stage 3 (moderate); I48.91 Unspecified atrial fibrillation; Z86.14 Personal history of Methicillin resistant Staphylococcus aureus infection; I48.0 Paroxysmal atrial fibrillation; G47.33 Obstructive sleep apnea (adult) (pediatric); E66.01 Morbid (severe) obesity due to excess calories; M19.90 Unspecified osteoarthritis, unspecified site; M79.7 Fibromyalgia; M10.9 Gout, unspecified; F32.9 Major depressive disorder, single episode, unspecified; Z79.899 Other long term (current) drug therapy; Z79.4 Long term (current) use of insulin; Z79.51 Long term (current) use of inhaled steroids; Z99.81 Dependence on supplemental oxygen; I25.2 Old myocardial infarction; Z86.711 Personal history of pulmonary embolism; Z90.49 Acquired absence of other specified parts of digestive tract; Z90.710 Acquired absence of both cervix and uterus; F17.210 Nicotine dependence, cigarettes, uncomplicated; Z88.1 Allergy status to other antibiotic agents; Z88.8 Allergy status to other drugs, medicaments and biological substances; Z66 Do not resuscitate
CPT/HCPCS: 36415; 36600; 71010; 80048; 80053; 80162; 80170; 80202; 81001; 82565; 82803; 82962; 83605; 83735; 83880; 84484; 85025; 85610; 87040; 87086; 87088; 87186; 93005; 93010; 94640; 94660; 96365; 96367; 99291; 99292; J0456; J0692; J1335; J1580; J1720; J1815; J1940; J1956; J2930; J3370; J3475; J3480; J3490; J7030; J7060; J7620; S0028

== ENCOUNTER 2016-10-17 20:15 | Inpatient (IN) | payer MEDICARE, MEDICAID ==
[2016-10-17] MEDS ORDERED: PREDNISONE 20 MG TABLET PO ONE (21:26)
[2016-10-17] MEDS ORDERED: IPRATROPIUM/ALBUTEROL 0.5-2.5 MG/3 ML AMPUL NEB ONE ×2 (21:26→21:36)
[2016-10-17] MEDS ORDERED: METHYLPREDNISOLONE INJ 125 MG/2 ML SDV IV ONE (21:37)
[2016-10-17] MEDS ORDERED: ALBUTEROL SULFATE 0.083% NEB 2.5 MG/3 ML AMPUL NEB SCH (21:41)
--- NOTE | 2016-10-17 21:41 | ER Document Report ---
ED General - General Chief Complaint: Shortness Of Breath Stated Complaint: SHORTNESS OF BREATH Notes: Patient is a 71-year-old female [id number] for chief complaint of fever since yesterday up to 102 which she has also had today, she also states that she has had bladder spasms and coughing with increased shortness of breath from her baseline. Patient has COPD with chronic respiratory failure, chronic steroid use, 24/7 4 L nasal cannula use, morbid obesity, ROSETTA, atrial fibrillation, type II diabetes, and history of Escherichia coli and MRSA infections. She denies chest pain. She has been intubated in the past. She states she has a DO NOT RESUSCITATE status. TRAVEL OUTSIDE OF THE [place] IN LAST 30 DAYS: No - Related Data Allergies/Adverse Reactions: Sulfa (Sulfonamide Antibiotics) Allergy (Intermediate, Verified 07/29/16 21:27) adhesive tape Allergy (Verified 07/29/16 21:27) atorvastatin calcium [From Lipitor] Allergy (Verified 07/29/16 21:27) celecoxib [From Celebrex] Allergy (Verified 07/29/16 21:27) Past Medical History - General Information source: Patient, Emergency Med Personnel - Social History Smoking Status: Never Smoker Frequency of alcohol use: None Drug Abuse: None Lives with: Longterm Family History: Arthritis, CAD, CVA, DM, Hypertension - Past Medical History Cardiac Medical History: Reports: Hx Atrial Fibrillation, Hx Congestive Heart Failure - Diastolic dysfunction, Hx Heart Attack, Hx Hypertension - essential, Hx Pulmonary Embolism, Hx Heart Murmur Denies: Hx Coronary Artery Disease, Hx DVT, Hx Hypercholesterolemia, Hx Peripheral Vascular Disease Pulmonary Medical History: Reports: Hx Asthma, Hx Bronchitis, Hx COPD, Hx Pneumonia - Recurrent MRSA pneumonia., Hx Sleep Apnea - Uses C Pap Denies: Hx Tuberculosis Neurological Medical History: Denies: Hx Seizures Endocrine Medical History: Reports: Hx Diabetes Mellitus Type 2. Denies: Hx Diabetes Mellitus Type 1, Hx Hyperthyroidism, Hx Hypothyroidism Renal/ Medical History: Reports: Hx Renal Insufficiency. Denies: Hx Peritoneal Dialysis GI Medical History: Reports: Hx Gastroesophageal Reflux Disease, Hx Hiatal Hernia. Denies: Hx Cirrhosis, Hx Hepatitis Musculoskeltal Medical History: Reports Hx Arthritis, Reports Hx Fibromyalgia, Reports Hx Gout, Reports Hx Muscle Weakness Skin Medical History: Denies Hx Eczema, Denies Hx Psoriasis Psychiatric Medical History: Reports: Hx Anxiety, Hx Depression Infectious Medical History: Reports: Hx MRSA. Denies: Hx Hepatitis Past Surgical History: Reports: Hx Appendectomy, Hx Cholecystectomy, Hx Hysterectomy, Hx Orthopedic Surgery - Multiple left hip procedures, 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 - Immunizations Hx Diphtheria, Pertussis, Tetanus Vaccination: Yes Hx Pneumococcal Vaccination: 05/20/13 Review of Systems - Review of Systems Constitutional: See HPI EENT: No symptoms reported Cardiovascular: No symptoms reported Respiratory: See HPI Gastrointestinal: No symptoms reported Genitourinary: No symptoms reported Female Genitourinary: No symptoms reported Musculoskeletal: No symptoms reported Skin: No symptoms reported Hematologic/Lymphatic: No symptoms reported Neurological/Psychological: No symptoms reported Physical Exam - Vital signs Vitals: Resp BP Pulse Ox 19 126/51 H 97 10/17/16 22:18 10/17/16 22:18 10/17/16 22:18 Interpretation: Normal - General General appearance: Appears well, Alert In distress: None - HEENT Head: Normocephalic, Atraumatic Eyes: Normal Extraocular movements intact: Yes Eyelashes: Normal Pupils: PERRL Nasal: Normal Mouth/Lips: Normal Mucous membranes: Normal Pharynx: Normal Neck: Normal - Respiratory Respiratory status: No respiratory distress Chest status: Nontender Breath sounds: Decreased air movement, Rhonchi, Wheezing Chest palpation: Normal - Cardiovascular Rhythm: Regular Heart sounds: Normal auscultation, S1 appreciated, S2 appreciated Murmur: Yes - 07/06 - Abdominal Inspection: Normal Distension: No distension Bowel sounds: Normal Tenderness: Nontender. No: Tender, Guarding Organomegaly: No organomegaly - Back Back: Normal, Nontender. No: Tender - Extremities General upper extremity: Normal inspection, Nontender, Normal ROM, Normal strength General lower extremity: Normal inspection, Nontender, Normal ROM, Normal strength - Neurological Neuro grossly intact: Yes Cognition: Normal Orientation: AAOx4 Duy Coma Scale Eye Opening: Spontaneous Duy Coma Scale Verbal: Oriented [place] Coma Scale Motor: Obeys Commands Duy Coma Scale Total: 15 Speech: Normal Motor strength normal: LUE, RUE, LLE, RLE Sensory: Normal - Psychological Associated symptoms: Normal affect, Normal mood - Skin Skin Temperature: Warm Skin Moisture: Dry Skin Color: Normal Course - Re-evaluation Re-evalutation: Patient initially with wheezing and tachypnea, this resolved with treatments. Abdomen is benign, patient is not tachycardic or hypotensive. CBC shows leukocytosis at 21,000 with elevation of neutrophils, patient reported to be febrile, patient began running a fever in the emergency department as well. Chest x-ray is unremarkable, urinalysis consistent with infection, this was drawn off through the port instead of taken from the bag, I do suspect this is the source of possible sepsis. Patient treated with Zosyn and vancomycin. Lactic acid is not elevated. EKG shows borderline ST segment depressions, discussed with Dr. Davis. Troponin is elevated at 0.6, patient is denying any chest pain, could be demand ischemia. I did discuss at length with patient who is very alert and oriented, she states she does not want transfer, she is not interested in any interventional procedure regardless of whether she is having a heart attack or not, she states that she would want to be treated medically only even if she does have a heart attack going on. Patient emphasizes that she also wants to remain a DO NOT RESUSCITATE status. Treated with aspirin, Lovenox, confirmed again with Dr. Davis. Troponin repeated it is actually downtrending. Patient is still not complaining of chest pain. Patient has improved in appearance and by states and under evaluations, vital signs remain unremarkable. Discussed with Dr. Borges, patient will be admitted to IMCU. He recommends patient given Invanz because of history of ESBL with intermediate resistance to vancomycin. - Vital Signs Vital signs: Temp Pulse Resp BP Pulse Ox 98.1 F 18 141/63 H 99 10/18/16 04:01 10/18/16 04:01 10/18/16 04:01 10/18/16 04:01 - Laboratory Result Diagrams: 10/17/16 23:20 10/17/16 23:20 Laboratory results interpreted by nd: 10/17/16 10/17/16 10/17/16 23:20 23:20 23:20 WBC 21.9 H RDW 16.1 H Plt Count 111 L Seg Neuts % (Manual) 82 H Abs Neuts (Manual) 18.0 H VBG pH 7.44 H Potassium 3.4 L Chloride 95 L Carbon Dioxide 31 H BUN 34 H Est GFR ( Amer) 58 L Est GFR (Non-Af Amer) 48 L Glucose 182 H Creatine Kinase < 20 L Total Protein 5.5 L Albumin 3.1 L Urine Protein Urine Blood Urine Nitrite Urine Urobilinogen Ur Leukocyte Esterase Urine Ascorbic Acid 10/18/16 02:06 WBC RDW Plt Count Seg Neuts % (Manual) Abs Neuts (Manual) VBG pH Potassium Chloride Carbon Dioxide BUN Est GFR ( Amer) Est GFR (Non-Af Amer) Glucose Creatine Kinase Total Protein Albumin Urine Protein 100 H Urine Blood MODERATE H Urine Nitrite POSITIVE H Urine Urobilinogen 4.0 H Ur Leukocyte Esterase LARGE H Urine Ascorbic Acid 40 H Discharge - Discharge Clinical Impression: COPD exacerbation, Shortness of breath UTI (urinary tract infection) Qualifiers: Urinary tract infection type: site unspecified Hematuria presence: without hematuria Qualified Code(s): N39.0 - Urinary tract infection, site not specified Leukocytosis Qualifiers: Leukocytosis type: unspecified Qualified Code(s): D72.829 - Elevated white blood cell count, unspecified Fever Qualifiers: Fever type: unspecified Qualified Code(s): R50.9 - Fever, unspecified Unit Admitted: [facility]
[2016-10-17] MEDS ORDERED: HYDROCODONE/ACETAMINOPHEN 5-325 MG TABLET PO ONE (22:56)
[2016-10-17] MEDS ORDERED: OXYCODONE HCL IR 5 MG TABLET PO ONE (23:19)
[2016-10-17 23:35] LABS: VENOUS BLOOD BASE EXCESS 6.4 mmol/L; VENOUS BLOOD HCO3 31.5 mmol/L (20-32); VENOUS BLOOD PH 7.44 (7.30-7.42)
[2016-10-17 23:46] LABS: ALANINE AMINOTRANSFERASE 51 U/L (9-52); ALBUMIN 3.1 g/dL (3.5-5.0); ALKALINE PHOSPHATASE 124 U/L (38-126); ANION GAP 12 (5-19); ASPARTATE AMINO TRANSFERASE 29 U/L (14-36); BILIRUBIN,TOTAL 0.8 mg/dL (0.2-1.3); BLOOD UREA NITROGEN 34 mg/dL (7-20); CALCIUM 9.3 mg/dL (8.4-10.2); CARBON DIOXIDE 31 mmol/L (22-30); CHLORIDE 95 mmol/L (98-107); CREATININE RESULT 1.12 mg/dL (0.52-1.25); GLUCOSE 182 mg/dL (75-110); POTASSIUM 3.4 mmol/L (3.6-5.0); SODIUM 137.8 mmol/L (137-145); TOTAL PROTEIN 5.5 g/dL (6.3-8.2)
[2016-10-17 23:47] LABS: CREATINE KINASE < 20 U/L (30-135)
[2016-10-17 23:53] LABS: HEMATOCRIT 37.9 % (36.0-47.0); HEMOGLOBIN 12.7 g/dL (12.0-15.5); HGB HCT DIFFERENCE 0.2; MEAN CORPUSCULAR HEMOGLOBIN 29.7 pg (27.0-33.4); MEAN CORPUSCULAR HGB CONC 33.5 g/dL (32.0-36.0); MEAN CORPUSCULAR VOLUME 89 fl (80-97); RED BLOOD COUNT 4.28 10^6/uL (3.72-5.28); RED CELL DISTRIBUTION WIDTH 16.1 % (11.5-14.0); WHITE BLOOD COUNT 21.9 10^3/uL (4.0-10.5)
[2016-10-17 23:57] LABS: CREATINE KINASE MB 1.87 ng/mL (<4.55)
[2016-10-18 00:01] LABS: TROPONIN I 0.612 ng/mL
[2016-10-18 00:12] LABS: BASOPHILS % (MANUAL) 0 % (0-2); EOSINOPHILS % (MANUAL) 0 % (0-6); LYMPHOCYTES % (MANUAL) 15 % (13-45); TOTAL CELLS COUNTED 100
[2016-10-18 00:17] LABS: ANISOCYTOSIS 1+; TOXIC GRANULATION SLIGHT; TOXIC VACUOLATION PRESENT
[2016-10-18] MEDS ORDERED: VANCOMYCIN HCL INJ 1000 MG VIAL IV ONE (00:17)
[2016-10-18] MEDS ORDERED: PIPERACILLIN/TAZOBACTAM 3.375 GM VIAL IV ONE (00:17)
[2016-10-18] MEDS ORDERED: ASPIRIN 81 MG TABLET, CHEWABLE PO ONE (00:34)
[2016-10-18] MEDS ORDERED: ACETAMINOPHEN 325 MG TABLET PO ONE (00:54)
[2016-10-18] MEDS ORDERED: ENOXAPARIN SODIUM INJ 100 MG/1 ML DISP.SYRIN SUBCUT SCH ×2 (01:00→10:00)
[2016-10-18 02:42] LABS: APPEARANCE,URINE CLOUDY; BILIRUBIN,URINE NEGATIVE (NEGATIVE); GLUCOSE, URINE NEGATIVE (NEGATIVE); KETONES,URINE NEGATIVE (NEGATIVE); LEUKOCYTE ESTERASE,URINE LARGE (NEGATIVE); NITRITE,URINE POSITIVE (NEGATIVE); PROTEIN,URINE 100 mg/dL (NEGATIVE); URINE SPECIFIC GRAVITY 1.011
[2016-10-18] MEDS ORDERED: ERTAPENEM SODIUM INJ 1 GM VIAL IV ONE (06:12)
--- NOTE | 2016-10-18 07:38 | EKG REPORT ---
SEVERITY:- ABNORMAL ECG - SINUS TACHYCARDIA WITH IRREGULAR RATE 65-136 INCOMPLETE LEFT BUNDLE BRANCH BLOCK LVH WITH SECONDARY REPOLARIZATION ABNORMALITY : Confirmed by: Yesenia Graham MD 18-Oct-2016 07:38:03
[2016-10-18 07:57] LABS: VENOUS BLOOD BASE EXCESS 1.6 mmol/L; VENOUS BLOOD HCO3 27.3 mmol/L (20-32); VENOUS BLOOD PCO2 47.7 mmHg (35-63); VENOUS BLOOD PH 7.38 (7.30-7.42)
[2016-10-18] MEDS ORDERED: NORMAL SALINE 1000 ML 1,000 ML IV PRN (07:57)
[2016-10-18] MEDS ORDERED: DEXTROSE 50%-WATER 25 GM/50 ML DISP.SYRIN IV PRN ×2 (08:00)
[2016-10-18] MEDS ORDERED: GLUCAGON,HUMAN RECOMB 1 MG INJ IM PRN (08:00)
[2016-10-18] MEDS ORDERED: DEXTROSE 40% GEL 15 GM TUBE PO PRN ×2 (08:00)
[2016-10-18] MEDS ORDERED: IMIPENEM/CILASTATIN SODIUM INJ 500 MG VIAL IV SCH (08:15)
[2016-10-18] MEDS ORDERED: PHARMACY COMMUNICATION ORDER MC SCH (08:15)
[2016-10-18] MEDS ORDERED: POTASSI CL 20 MEQ/50 ML RIDER 50 ML IV ONE (09:00)
[2016-10-18] MEDS ORDERED: ENOXAPARIN SODIUM INJ 100 MG/1 ML DISP.SYRIN SUBCUT ONE (10:00)
--- NOTE | 2016-10-18 10:09 | PDOC H&P ---
History of Present Illness Admission Date/PCP: 10/18/16 06:22 MUSA HODGSON MD Patient complains of: Fever History of Present Illness: PORSHA WALDRON is a 71 year old female resident of [facility], well known to the hospitalist service for multiple admissions, typically for urinary tract infection and/or COPD exacerbation with acute on chronic respiratory failure, who presents to the emergency room for evaluation of above complaint. Patient has been discussed with emergency room nurse practitioner who evaluated the patient. Patient herself is quite somnolent, not able to be fully awoken, and is able to provide no history whatsoever in terms of acute or chronic events , review of systems, personal habits, family history, etc. No friends or family are present. Old inpatient records are reviewed. Maintaining her airway well. Per nurse practitioner notes, intermittent fever to 102 for the last 24-36 hours. Report of bladder spasms and coughing with increased shortness of breath from her baseline. 24/ 4 L oxygen per nasal cannula use. Chronic steroid use. Obstructive sleep apnea, with CPAP or BiPAP. Patient did deny chest pain to the nurse practitioner. Stated she also desired DO NOT RESUSCITATE status. Elevated troponins were discussed with patient by emergency room nurse practitioner, with implications of possible acute myocardial infarction. Patient reportedly told nurse practitioner she desired no intervention related to same, and did not wish to be transferred to a larger medical center. Again, above information obtained by discussion with emergency room nurse practitioner and review of his notes. . Hospitalized on our service August 24 through September 01 of this year with final diagnoses including recurrent mucopurulent bronchitis, diabetes mellitus type II , controlled, diastolic dysfunction, urinary tract infection due to indwelling Barton catheter, among other diagnoses. Copy of the discharge summary has been reviewed. hospitalized on our service 29 of July of this year with diagnoses including asthma and COPD exacerbation paroxysmal atrial fibrillation with rapid ventricular response, urinary tract infection, and left lung pneumonia. Copy of the history and physical has been reviewed. Laboratory results are listed in [facility] and are reviewed. X-ray summary results are listed below, with full report(s) reviewed. . EKG reviewed. And compared to a tracing from August 29 of this year. Social history/personal habits: Per prior records, she is a . Long-term resident of [facility]. No use of alcohol tobacco or illicit drugs.No further information available this point in time. Allergies/adverse reactions are listed in [facility] and are reviewed. Home medications longterm medications initially autopopulated into [employer] may not accurately reflect patient's true medications, dosages, and/or frequencies. screening tech to reconcile medications. Unfortunately, patient not able to provide any information related to medications/dosages/frequencies, due to her current status.. REVIEW OF SYSTEMS: See history and present illness.No further information available this point in time, due to patient's current status.. PHYSICAL EXAMINATION: 5 feet 3 inches tall. 97.1 kg. BMI 37.9 kg/m. Blood pressure 144/95. Pulse 87 and regular. 100% saturation on 5 L oxygen per nasal cannula.; This is decreased to 3 L due to patient's underlying COPD, and tendency to retain CO2. Respirations are 17 and unlabored. Temperature 98.1. Obese chronically ill-appearing female who appears perhaps a bit older than her stated age. Asleep. Does open eyes slightly when spoken to in raised volume, but Not able to be completely awoken. maintaining her airway well. Skin is warm and dry. No grossly obvious evidence of rash in areas of skin examined. No subcutaneous nodules palpated. ENT: Hearing difficult to adequately evaluate due to her current status. Eyes: No scleral icterus. Pupils equal and reactive to light at 4 mm. Raub conjunctivae. No raccoon eyes. Neck is nontender to palpation. Midline trachea. No palpable thyroid nodule mass enlargement or tenderness. Lymphatic: No palpable cervical or clavicular nodes. Neck and lymphatic exams limited by patient body habitus. Psychiatric: Not able to be adequately evaluated due to her current status. Lungs: Auscultation reveals equal breath sounds bilaterally. No use of accessory respiratory muscles. Mild brief early expiratory wheezing bilaterally. Cardiovascular: Heart regular rate and rhythm, without gallop murmur or rub. No carotid or abdominal aortic bruits. Bilateral symmetric slightly pitting ankle and pedal edema. Faintly palpable dorsalis pedis pulses. Abdomen: soft, obese, nontender with positive bowel sounds. Unable to adequately evaluate abdomen for masses or organomegaly due to body habitus. Extremities: Feet are warm and dry. No calf tenderness to compression. No grossly obvious visual evidence of calf swelling. Gentle manipulation of lower extremities fails to reveal any obvious evidence of injury or instability to knees hips or ankles, although range of motion, left lower extremity is chronically less than right. Neurologic: Patellar reflexes absent. Absent Babinski. Light touch can't be adequately determined due to her current status. Past Medical History Cardiac Medical History: Reports: Atrial Fibrillation, Congestive Heart Failure - Diastolic dysfunction, Myocardial Infarction, Hypertension - essential, Pulmonary Embolism, Heart Murmur Denies: Coronary Artery Disease, DVT, Hyperlipidema, Peripheral Vascular Disease Pulmonary Medical History: Reports: Asthma, Bronchitis, Chronic Obstructive Pulmonary Disease (COPD), Pneumonia - Recurrent MRSA pneumonia., Sleep Apnea - Uses C Pap Denies: Tuberculosis Neurological Medical History: Denies: Seizures Endocrine Medical History: Reports: Diabetes Mellitus Type 2 Denies: Diabetes Mellitus Type 1, Hyperthyroidism, Hypothyroidism GI Medical History: Reports: Gastroesophageal Reflux Disease, Hiatal Hernia Denies: Cirrhosis, Hepatitis Musculoskeltal Medical History: Reports: Arthritis, Fibromyalgia, Gout Skin Medical History: Denies: Eczema, Psoriasis Psychiatric Medical History: Reports: Depression Hematology: Reports: Anemia Infectious Medical History: Reports: Methicillin-Resistant Staph Aureus Past Surgical History Past Surgical History: Reports: Appendectomy, Cholecystectomy, Hysterectomy, Orthopedic Surgery - Multiple left hip procedures, 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 Social History Information Source: Emergency Med Personnel, [facility] Lives with: Snf Smoking Status: Never Smoker Frequency of Alcohol Use: None Hx Recreational Drug Use: No Drugs: None Hx Prescription Drug Abuse: No - Advance Directive Resuscitation Status: Do Not Resuscitate - Per emergency room nurse practitioner , patient desires DO NOT RESUSCITATE status. Surrogate healthcare decision maker:: Uncertain at this point in time. Family History Family History: Arthritis, CAD, CVA, DM, Hypertension Parental Family History Reviewed: Yes - per review of history and exam, July 29 of this year, by Dr. Borges. Children Family History Reviewed: Yes - per review of history and exam, July 29 of this year, by Dr. Borges. Sibling(s) Family History Reviewed.: Yes - per review of history and exam, July 29 this year, by Dr. Borges. Medication/Allergy Home Medications: Duloxetine HCl [Cymbalta] 90 mg PO DAILY 01/05/16 Albuterol Sulfate [Ventolin 0.083% Neb 2.5 mg/3 mL Ampul] 2.5 mg NEB Q2HP PRN Omeprazole Magnesium [Prilosec Otc] 20 mg PO QAM 12/11/16 Guaifenesin [Mucinex Sr 600 mg Tablet.sa] 1,200 mg PO Q12 tablet.sa 06/15/16 Acetaminophen [Tylenol 325 mg Tablet] 650 mg PO Q4HP PRN 07/12/16 Apixaban [Eliquis 5 mg Tablet] 5 mg PO DAILY 10/18/16 Budesonide [Pulmicort Neb 0.5 mg/2 ml Ampul] 0.5 mg NEB Q4H 10/18/16 Buspirone HCl [Buspar 5 mg Tablet] 5 mg PO BID 10/18/16 Dextromethorphan HBr [Delsym] 10 ml PO Q12HP PRN 10/18/16 Dextrose 50 % in Water [Dextrose 50%-Water Vial] 50 ml IV PRN PRN 10/18/16 Digoxin [Lanoxin 0.25 mg Tablet] 0.25 mg PO DAILY 10/18/16 Diltiazem HCl [Cardizem 60 mg Tablet] 60 mg PO Q6 10/18/16 Diphenhydramine HCl [Benadryl] 25 mg PO Q6HP PRN 10/18/16 Dronabinol [Marinol 2.5 mg Capsule] 2.5 mg PO BID 10/18/16 Famotidine [Pepcid 20 mg Tablet] 20 mg PO BID 10/18/16 Fentanyl [Duragesic 25 mcg/hr Transdermal Patch] 1 patch TOP Q3D 10/18/16 Glucagon,Human Recombinant [Glucagon Emergency Kit] 1 mg SQ PRN PRN 10/18/16 Heparin Sodium,Porcine/Pf [Heparin 1,000 Unit/10 (100/ml)] 3 ml IV Q12 10/18/16 Hydrocodone/Acetaminophen [[place] 5-325 mg Tablet] 1 tab PO Q4HP PRN 10/18/16 Insulin Aspart [Novolog Insulin (Aspart) 100 unit/mL] See Protocol SQ ACHS 10/18 Insulin Detemir [Levemir Flextouch] 30 units SQ DAILY 10/18/16 Ipratropium [place] [Atrovent 0.02% Neb 0.5 mg/2.5 ml Ampul] 1 vial NEB Q4H Lactulose [Cephulac Syrup 20 gm/30 ml Udcup] 30 ml PO BID 10/18/16 Levalbuterol HCl [Xopenex Concentrate] 1 vial NEB Q4 10/18/16 Linaclotide [Linzess 145 Mcg Capsule] 145 mcg PO QAM 10/18/16 Metoclopramide HCl [Reglan] 5 mg PO MEALS 10/18/16 Nitroglycerin [Nitrostat] 0.4 mg SL Q5M 10/18/16 Prednisone [Deltasone 20 mg Tablet] 20 mg PO BID 10/18/16 Pregabalin [Lyrica 100 mg Capsule] 100 mg PO BID 10/18/16 Promethazine HCl [Phenergan 25 mg Tablet] 25 mg PO Q6HP PRN 10/18/16 Furosemide [Lasix] 40 mg PO DAILY 10/19/16 Allergies/Adverse Reactions: Sulfa (Sulfonamide Antibiotics) Allergy (Intermediate, Verified 07/29/16 21:27) adhesive tape Allergy (Verified 07/29/16 21:27) atorvastatin calcium [From Lipitor] Allergy (Verified 07/29/16 21:27) celecoxib [From Celebrex] Allergy (Verified 07/29/16 21:27) Physical Exam Vital Signs: Temp Pulse Resp BP Pulse Ox 98.1 F 18 141/63 H 99 10/18/16 04:01 10/18/16 04:01 10/18/16 04:01 10/18/16 04:01 Results Laboratory Results: 10/18/16 07:47 VBG pH 7.38 VBG pCO2 47.7 VBG HCO3 27.3 VBG Base Excess 1.6 Impressions: Chest X-Ray 10/17/16 22:46 IMPRESSION: No interval change in the chest. No acute findings. Assessment & Plan - Diagnosis (1) Elevated troponin Is this a current diagnosis for this admission?: YesPlan: Likely due to underlying infection. Cardiology consult. (2) Hypokalemia Is this a current diagnosis for this admission?: YesPlan: Potassium replacement, with follow-up chemistry. (3) Thrombocytopenia Is this a current diagnosis for this admission?: YesPlan: Likely at least partly due to underlying infection. Follow-up CBC. (4) UTI (urinary tract infection) Qualifiers: Urinary tract infection type: site unspecified Is this a current diagnosis for this admission?: YesPlan: Blood and urine cultures. Recent urine culture results noted. IV antibiotics. SCD's for DVT prophylaxis. (5) History of MRSA infection Is this a current diagnosis for this admission?: YesPlan: Contact precautions. (6) Hypersomnia Is this a current diagnosis for this admission?: YesPlan: Suspect due at least in part related to underlying CO2 retention. BiPAP to be applied. Follow-up venous gas. Discussed with daytime hospitalist team. - Inpatient Certification Based on my medical assessment, after consideration of the patient's comorbidities, presenting symptoms, or acuity I expect that the services needed warrant INPATIENT care.: Yes I certify that my determination is in accordance with my understanding of Medicare's requirements for reasonable and necessary INPATIENT services [42 CFR 412.3e].: Yes Medical Necessity: Significant Comorbidiites Make Outpatient Treatment Too Risky , Need Close Monitoring Due to Risk of Patient Decompensation, Need For IV Fluids, Need For Continuous Telemetry Monitoring, Need for Nebulizer Therapy and Monitoring of Response, Need for IV Antibiotics, Risk of Complication if Not Cared For in Hospital Post Hospital Care: D/C or Transfer Summary
[2016-10-18] MEDS ORDERED: IMIPENEM/CILASTATIN SODIUM 500 MG in NORMAL SALINE 100 ML IV SCH (12:00)
[2016-10-18] MEDS: INSULIN LISPRO 100 UNIT/ML 3 ML VIAL SUBCUT PRN (12:30)
--- NOTE | 2016-10-18 13:00 | PDOC CONSULTATION ---
Consultation Consult Date: 10/18/16 Attending physician:: CHRISTIANNE HERNANDEZ Consult reason:: Dyspnea, elevated troponin I History of Present Illness Admission Date/PCP: 10/18/16 06:22 MUSA HODGSON MD Patient complains of: Shortness of breath, general fatigue, tiredness and urinary tract infection History of Present Illness: Patient is a 71-year-old female that comes from [facility] for chief complaint of fever since yesterday up to 102 which she has also had today, she also states that she has had bladder spasms and coughing with increased shortness of breath from her baseline. Patient has COPD with chronic respiratory failure, chronic steroid use, 21/01 4 L nasal cannula use, morbid obesity, ROSETTA, atrial fibrillation, type II diabetes, and history of Escherichia coli and MRSA infections. She denies chest pain. She has been intubated in the past. She states she has a DO NOT RESUSCITATE status. Patient was subsequently admitted to the hospital. She was noted to have positive troponin I. On questioning this morning she denied any recent chest pains over last several weeks. She does complain of shortness of breath, fatigue and tiredness. This history was confirmed, supplements and agree with it. Past Medical History Cardiac Medical History: Reports: Atrial Fibrillation, Congestive Heart Failure - Diastolic dysfunction, Myocardial Infarction, Hypertension - essential, Pulmonary Embolism, Heart Murmur Denies: Coronary Artery Disease, DVT, Hyperlipidema, Peripheral Vascular Disease Pulmonary Medical History: Reports: Asthma, Bronchitis, Chronic Obstructive Pulmonary Disease (COPD), Pneumonia - Recurrent MRSA pneumonia., Sleep Apnea - Uses C Pap Denies: Tuberculosis Neurological Medical History: Denies: Seizures Endocrine Medical History: Reports: Diabetes Mellitus Type 2 Denies: Diabetes Mellitus Type 1, Hyperthyroidism, Hypothyroidism GI Medical History: Reports: Gastroesophageal Reflux Disease, Hiatal Hernia Denies: Cirrhosis, Hepatitis Musculoskeltal Medical History: Reports: Arthritis, Fibromyalgia, Gout Skin Medical History: Denies: Eczema, Psoriasis Psychiatric Medical History: Reports: Depression Hematology: Reports: Anemia Infectious Medical History: Reports: Methicillin-Resistant Staph Aureus Past Surgical History Past Surgical History: Reports: Appendectomy, Cholecystectomy, Hysterectomy, Orthopedic Surgery - Multiple left hip procedures, 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 Social History Information Source: Patient Lives with: [facility] Smoking Status: Never Smoker Frequency of Alcohol Use: None Hx Recreational Drug Use: No Drugs: None Hx Prescription Drug Abuse: No - Advance Directive Resuscitation Status: Do Not Resuscitate - Per emergency room nurse practitioner , patient desires DO NOT RESUSCITATE status. Family History Family History: Arthritis, CAD, CVA, DM, Hypertension Parental Family History Reviewed: Yes Children Family History Reviewed: Yes Sibling(s) Family History Reviewed.: Yes Medication/Allergy Home Medications: Duloxetine HCl [Cymbalta] 90 mg PO DAILY 01/05/16 Albuterol Sulfate [Ventolin 0.083% Neb 2.5 mg/3 mL Ampul] 2.5 mg NEB Q2HP PRN Omeprazole Magnesium [Prilosec Otc] 20 mg PO QAM 06/10/16 Furosemide [Lasix 40 mg Tablet] 40 mg PO BID tablet 06/15/16 Guaifenesin [Mucinex Sr 600 mg Tablet.sa] 1,200 mg PO Q12 tablet.sa 06/15/16 Acetaminophen [Tylenol 325 mg Tablet] 650 mg PO Q4HP PRN 07/12/16 Apixaban [Eliquis 5 mg Tablet] 5 mg PO DAILY 10/18/16 Budesonide [Pulmicort Neb 0.5 mg/2 ml Ampul] 0.5 mg NEB Q4H 10/18/16 Buspirone HCl [Buspar 5 mg Tablet] 5 mg PO BID 10/18/16 Dextromethorphan HBr [Delsym] 10 ml PO Q12HP PRN 10/18/16 Dextrose 50 % in Water [Dextrose 50%-Water Vial] 50 ml IV PRN PRN 10/18/16 Digoxin [Lanoxin 0.25 mg Tablet] 0.25 mg PO DAILY 10/18/16 Diltiazem HCl [Cardizem 60 mg Tablet] 60 mg PO Q6 10/18/16 Diphenhydramine HCl [Benadryl] 25 mg PO Q6HP PRN 10/18/16 Dronabinol [Marinol 2.5 mg Capsule] 2.5 mg PO BID 10/18/16 Famotidine [Pepcid 20 mg Tablet] 20 mg PO DAILY 10/18/16 Fentanyl [Duragesic 25 mcg/hr Transdermal Patch] 1 patch TOP Q3D 10/18/16 Glucagon,Human Recombinant [Glucagon Emergency Kit] 1 mg SQ PRN PRN 10/18/16 Heparin Sodium,Porcine/Pf [Heparin 1,000 Unit/10 (100/ml)] 3 ml IV Q12 10/18/16 Hydrocodone/Acetaminophen [[place] 5-325 mg Tablet] 1 tab PO Q4HP PRN 10/18/16 Insulin Aspart [Novolog Insulin (Aspart) 100 unit/mL] See Protocol SQ ACHS 10/18 Insulin Detemir [Levemir Flextouch] 30 units SQ DAILY 10/18/16 Ipratropium [place] [Atrovent 0.02% Neb 0.5 mg/2.5 ml Ampul] 1 vial NEB Q4H Lactulose [Cephulac Syrup 20 gm/30 ml Udcup] 30 ml PO BID 10/18/16 Levalbuterol HCl [Xopenex Concentrate] 1 vial NEB Q4 10/18/16 Linaclotide [Linzess 145 Mcg Capsule] 145 mcg PO QAM 10/18/16 Metoclopramide HCl [Reglan] 5 mg PO MEALS 10/18/16 Nitroglycerin [Nitrostat] 0.4 mg SL Q5M 10/18/16 Prednisone [Deltasone 20 mg Tablet] 20 mg PO BID 10/18/16 Pregabalin [Lyrica 100 mg Capsule] 100 mg PO BID 10/18/16 Promethazine HCl [Phenergan 25 mg Tablet] 25 mg PO Q6HP PRN 10/18/16 Allergies/Adverse Reactions: Sulfa (Sulfonamide Antibiotics) Allergy (Intermediate, Verified 07/29/16 21:27) adhesive tape Allergy (Verified 07/29/16 21:27) atorvastatin calcium [From Lipitor] Allergy (Verified 07/29/16 21:27) celecoxib [From Celebrex] Allergy (Verified 07/29/16 21:27) Review of Systems Review of Systems: Please see history of present illness and past medical history as wall. Constitutional: Fever and chills reported. Head : No recent chronic headaches, recent head injury. Eyes: No recent eye pain, diplopia, redness, discharge, acute visual changes. Ears: No recent chronic ear pain, acute hearing loss, ear discharge. Oral cavity: No recent ulcerations, bleeding, oral cavity discomfort. Neck: No recent acute neck pain reported. Hematologic: No recent easy bruising or bleeding or hematologic malignancy reported. Lymphatic: No recent lymphatic malignancy, chronic lymphadenopathy reported yet Cardiovascular system review: See history of present illness. Respiratory system review: No recent chronic cough, hemoptysis, blood clots in the lungs reported. Mild Shortness of breath on exertion Gastrointestinal system review: Negative for any recent acute or chronic abdominal pain, hematemesis, melena, recent change in bowel habits. Genitourinary system review: No recent acute or chronic hematuria, flank pain, recurrent UTI reported. Skin system review: Negative for any recent abnormal bruising, no rash, no pruritus reported. Neurologic: No prior history of strokes, mini strokes, seizure disorder. Psychologic: No history of major psychosis or major depression reported. Musculoskeletal: Minor aches and pains reported. No acute joint swelling reported. Patient claims significant weakness in both lower extremity and claims to be wheelchair-bound. Endocrine: No recent polyuria, polydipsia, recent heat or cold intolerance. Physical Exam Vital Signs: Temp Pulse Resp BP Pulse Ox 98.1 F 24 H 119/59 L 97 10/18/16 04:01 10/18/16 10:03 10/18/16 10:03 10/18/16 10:03 Exam: GENERAL: well-nourished and in no acute distress. Alert and oriented x3 HEAD: Atraumatic, normocephalic. EYES: Pupils equal round and reactive to light, extraocular movements intact, sclera anicteric, conjunctiva are normal. ENT: TMs normal, nares patent, oropharynx clear without exudates. Moist mucous membranes. No oral ulcerations or bleeding gums noted NECK: supple without lymphadenopathy. Trachea is central. No cervical or axillary lymphadenopathy noted. Carotids are 2+, JVD WNL LUNGS: Respiration seems nonlabored, no significant accessory muscle action noted. Breath sounds clear to auscultation bilaterally and equal noted. No wheezes rales or rhonchi noted. No significant dullness noted on percussion. CHEST: Palpation of the chest wall shows no significant chest wall tenderness. No other significant abnormalities noted. HEART: [place] [employer], No PSH, 1/6 REBECA aortic area, 1/6 morley systolic murmur mitral area, no rubs, no gallops. ABDOMEN: Soft, no significant tenderness appreciated, normoactive bowel sounds. No guarding, no rebound. No rigidity noted . No masses appreciated. EXTREMITIES: Pedal pulses are 1-2+, no calf tenderness noted. No clubbing or cyanosis.trace to 1+ pedal edema noted NEUROLOGICAL: Focused neurological exam showed no significant neurologic deficit. Normal speech, patient describes bilateral lower extremity weakness. A formal strength exam was not performed. PSYCH: Normal mood, normal affect. Judgment and insight within normal limits. SKIN: No significant ecchymosis, rash, ulcerations or signs of pruritus noted. MUSCULOSKELETAL EXAM: No significant joint swelling noted. Results Laboratory Results: 10/18/16 07:47 VBG pH 7.38 VBG pCO2 47.7 VBG HCO3 27.3 VBG Base Excess 1.6 EKG Comments: Sinus rhythm with left axis deviation, short PAT runs, ST-T wave changes are noted Impressions: Chest X-Ray 10/17/16 22:46 IMPRESSION: No interval change in the chest. No acute findings. Assessment & Plan - Diagnosis (1) Elevated troponin Is this a current diagnosis for this admission?: Yes (2) Fever Qualifiers: Fever type: unspecified Qualified Code(s): R50.9 - Fever, unspecified Is this a current diagnosis for this admission?: Yes (3) Shortness of breath Is this a current diagnosis for this admission?: Yes (4) UTI (urinary tract infection) Qualifiers: Urinary tract infection type: site unspecified Is this a current diagnosis for this admission?: Yes (5) Abnormal electrocardiogram Is this a current diagnosis for this admission?: Yes (6) Paroxysmal atrial tachycardia Is this a current diagnosis for this admission?: Yes - Notes Notes: Elevated troponin I: Most likely related to paroxysmal atrial tachycardia, sepsis etc. Patient does have abnormal EKG with some ST segment changes therefore cannot rule out acute coronary syndrome. However would recommend medical management at this point. Have placed patient on metoprolol succinate, aspirin, Ranexa, continue anticoagulation for total of 72-96 hours. Will recommend statin therapy. Febrile illness: Most likely related to recurrent UTI. Dyspnea: Most likely related to general debility, possible sepsis. Will order a 2-D echocardiogram to evaluate this further. Urinary tract infection: Most likely recurrent. Continue antibiotic therapy. Abnormal electrocardiogram: Please see assessment under elevated troponin I. Paroxysmal atrial tachycardia: Have placed patient on metoprolol succinate, Ranexa might help in this regard as well. Patient at risk for going into A. fib. - Time Time Spent: 50 to 70 Minutes - CODE STATUS : was discussed, patient remains DO NOT RESUSCITATE. Surrogate decision-maker unchanged. Multiple medical problems were addressed.More than 50% of the time spent coordinating care, discussing management plans with involved caregivers. Management plans discussed with involved personnels. Medical decision making was of moderate to high complexity, patient's has multiple severe comorbidities.
[2016-10-18] MEDS ORDERED: METOPROLOL SUCCINATE 25 MG TAB.SR.24H PO ONE (14:00)
[2016-10-18] MEDS ORDERED: RANOLAZINE 500 MG TAB.SR.12H PO ONE (14:00)
[2016-10-18 14:42] LABS: ARTERIAL BLOOD BASE EXCESS 2.5 mmol/L; ARTERIAL BLOOD O2 SATURATION 92.9 % (94-98)
[2016-10-18] MEDS: IMIPENEM/CILASTATIN SODIUM 500 MG in NORMAL SALINE 100 ML IV SCH ×2 (14:54→21:25)
[2016-10-18] MEDS: IPRATROPIUM/ALBUTEROL 0.5-2.5 MG/3 ML AMPUL NEB PRN ×2 (18:38→22:42)
--- NOTE | 2016-10-18 18:49 | XCELERA REPORT ---
[address] [address] Transthoracic Echocardiogram Report Name: PORSHA WALDRON Age: 71 yrs Gender: Female : 1945 Patient Status: Inpatient Patient Location: 3N\S\301\S\A Study Date: 10/18/2016 02:44 PM Height: 63 in Weight: 214 lb BSA: 2.0 m2 Procedure: A complete two-dimensional transthoracic echocardiogram was performed (2D, M-mode, spectral and color flow Doppler). The study was technically difficult with many images being suboptimal in quality. Reason For Study: non-STEMI Ordering Physician: JUNG MOHAN Performed By: Zora Gan Interpretation Summary The study was technically difficult with many images being suboptimal in quality. Left ventricular systolic function is low normal. Doppler measurements suggest pseudonormalized left ventricular relaxation, which is associated with grade II/IV or mild to moderate diastolic dysfunction There is mild concentric left ventricular hypertrophy. The left ventricle is grossly normal size. Wall motion cannot be accurately commented on, but no definite regional wall motion abnormalities noted. The right ventricle appears to be hypertrophied The right ventricular systolic function is normal. The left atrial size is normal. The right atrium is normal. There is a trace amount of mitral regurgitation There is no mitral valve stenosis. No aortic regurgitation is present. There is no aortic valve stenosis There is a trace or physiologic amount of tricuspid regurgitation Tricuspid regurgitation jet envelope not well defined to measure RV systolic pressure accurately. The aortic root is not well visualized. The inferior vena cava was not visualized Small pericardial effusion. There are no echocardiographic or Doppler indications for cardiac tamponade MMode/2D Measurements \T\ Calculations RVDd: 2.2 cm LVIDd: 5.2 cm FS: 29.6 % Ao root diam: 2.5 cm IVSd: 1.2 cm LVIDs: 3.6 cm EDV(Teich): 126.9 ml LVPWd: 1.2 cm ESV(Teich): 55.4 ml Ao root area: 5.0 cm2 EF(Teich): 56.3 % LA dimension: 3.5 cm Doppler Measurements \T\ Calculations MV E max master: MV P1/2t max master: Ao V2 max: LV V1 max P.2 cm/sec 122.2 cm/sec 203.6 cm/sec 13.7 mmHg MV A max master: MV P1/2t: 74.6 msec Ao max PG: LV V1 max: 145.0 cm/sec 16.6 mmHg 185.1 cm/sec MV E/A: 0.84 MVA(P1/2t): 2.9 cm2 MV dec slope: 479.4 cm/sec2 MV dec time: 0.26 sec PA V2 max: TR max master: 180.2 cm/sec 220.7 cm/sec PA max PG: TR max P.5 mmHg 13.0 mmHg Left Ventricle The left ventricle is grossly normal size. There is mild concentric left ventricular hypertrophy. Left ventricular systolic function is low normal. Doppler measurements suggest pseudonormalized left ventricular relaxation, which is associated with grade II/IV or mild to moderate diastolic dysfunction. Wall motion cannot be accurately commented on, but no definite regional wall motion abnormalities noted. Right Ventricle The right ventricle is normal size. The right ventricle appears to be hypertrophied. The right ventricular systolic function is normal. Atria The right atrium is normal. The left atrial size is normal. Interarterial septum not well visualized and not well dopplered. Cannot comment on ASD/PFO presence. Mitral Valve The mitral valve is grossly normal. There is no mitral valve stenosis. There is a trace amount of mitral regurgitation. Aortic Valve The aortic valve is not well visualized secondary to technical limitations. There is no aortic valve stenosis. No aortic regurgitation is present. Tricuspid Valve The tricuspid valve is not well visualized secondary to technical limitations. There is no tricuspid stenosis. There is a trace or physiologic amount of tricuspid regurgitation. Tricuspid regurgitation jet envelope not well defined to measure RV systolic pressure accurately. Pulmonic Valve The pulmonic valve is not well visualized. Great Vessels The aortic root is not well visualized. The inferior vena cava was not visualized. Effusions Small pericardial effusion. There are no echocardiographic or Doppler indications for cardiac tamponade. : JUNG MOHAN > Jung Mohan
[2016-10-18] MEDS: HYDROCODONE/ACETAMINOPHEN 5-325 MG TABLET PO PRN (19:00)
[2016-10-18] MEDS: METOPROLOL SUCCINATE 25 MG TAB.SR.24H PO SCH (21:28)
[2016-10-18] MEDS: PREGABALIN 100 MG CAPSULE PO SCH (21:32)
[2016-10-18] MEDS: RANOLAZINE 500 MG TAB.SR.12H PO SCH (21:34)
[2016-10-19] MEDS: INSULIN LISPRO 100 UNIT/ML 3 ML VIAL SUBCUT PRN ×4 (00:29→23:10)
[2016-10-19] MEDS: IMIPENEM/CILASTATIN SODIUM 500 MG in NORMAL SALINE 100 ML IV SCH ×4 (03:00→21:00)
[2016-10-19 05:28] LABS: HEMATOCRIT 31.9 % (36.0-47.0); HEMOGLOBIN 10.7 g/dL (12.0-15.5); HGB HCT DIFFERENCE 0.2; MEAN CORPUSCULAR HGB CONC 33.4 g/dL (32.0-36.0); MEAN CORPUSCULAR VOLUME 90 fl (80-97); RED BLOOD COUNT 3.56 10^6/uL (3.72-5.28); RED CELL DISTRIBUTION WIDTH 15.5 % (11.5-14.0); WHITE BLOOD COUNT 12.2 10^3/uL (4.0-10.5)
[2016-10-19 05:52] LABS: ANION GAP 8 (5-19); BLOOD UREA NITROGEN 32 mg/dL (7-20); CALCIUM 9.2 mg/dL (8.4-10.2); CARBON DIOXIDE 33 mmol/L (22-30); CHLORIDE 102 mmol/L (98-107); CREATININE RESULT 0.94 mg/dL (0.52-1.25); GLUCOSE 235 mg/dL (75-110); POTASSIUM 3.3 mmol/L (3.6-5.0); SODIUM 142.7 mmol/L (137-145)
[2016-10-19 05:59] LABS: BASOPHILS % (MANUAL) 0 % (0-2); EOSINOPHILS % (MANUAL) 0 % (0-6); LYMPHOCYTES % (MANUAL) 1 % (13-45); TOTAL CELLS COUNTED 100
[2016-10-19 06:01] LABS: ANISOCYTOSIS 1+; POLYCHROMASIA SLIGHT
[2016-10-19] MEDS: LANSOPRAZOLE 15 MG TAB.RAP.DR PO SCH (08:33)
[2016-10-19] MEDS ORDERED: DIPHENHYDRAMINE HCL 25 MG CAPSULE PO PRN (09:17)
--- NOTE | 2016-10-19 09:36 | PDOC PROGRESS REPORT ---
Subjective Progress Note for:: 10/19/16 Subjective:: Patient complains of coughing. Has chronic shortness of breath and sneezing and allergies. There is postnasal drip noted as well. No chills or fever reported. No diarrhea. No nausea or vomiting. Patient tolerating oral intake. Blood cultures were positive as well as urine for gram-negative rods. Physical Exam Vital Signs: Temp Pulse Resp BP Pulse Ox 98.3 F 65 18 136/50 H 97 10/19/16 06:02 10/19/16 07:00 10/19/16 06:02 10/19/16 06:02 10/19/16 06:02 Intake & Output 10/18/16 10/19/16 10/20/16 06:59 06:59 06:59 Intake Total 1140 Output Total 1000 Balance 140 Weight 100.3 kg General appearance: PRESENT: mild distress, morbidly obese Head exam: PRESENT: normocephalic Eye exam: PRESENT: conjunctiva pale, EOMI Mouth exam: PRESENT: moist, neck supple Respiratory exam: PRESENT: decreased breath sounds, rhonchi - few bilateral. ABSENT: wheezes Cardiovascular exam: PRESENT: irregular rhythm. ABSENT: gallop GI/Abdominal exam: PRESENT: hypoactive bowel sounds, soft. ABSENT: distended - Obese Extremities exam: PRESENT: +1 edema Neurological exam: PRESENT: alert, awake, oriented to situation Skin exam: PRESENT: dry, warm. ABSENT: cyanosis Results Laboratory Results: 10/19/16 05:00 10/19/16 05:00 10/18/16 10/19/16 10/19/16 14:25 05:00 05:00 WBC 12.2 H RBC 3.56 L Hgb 10.7 L Hct 31.9 L MCV 90 MCH 30.0 MCHC 33.4 RDW 15.5 H Plt Count 88 L Seg Neutrophils % Not Reportable Lymphocytes % Not Reportable Monocytes % Not Reportable Eosinophils % Not Reportable Basophils % Not Reportable Absolute Neutrophils Not Reportable Absolute Lymphocytes Not Reportable Absolute Monocytes Not Reportable Absolute Eosinophils Not Reportable Absolute Basophils Not Reportable Carbonic Acid 1.39 H HCO3/H2CO3 Ratio 20:1 ABG pH 7.40 ABG pCO2 46.2 H ABG pO2 65.9 L ABG HCO3 27.8 H ABG O2 Saturation 92.9 L ABG Base Excess 2.5 FiO2 28% Sodium 142.7 Potassium 3.3 L Chloride 102 Carbon Dioxide 33 H Anion Gap 8 BUN 32 H Creatinine 0.94 Est GFR ( Amer) > 60 Est GFR (Non-Af Amer) 58 L Glucose 235 H Calcium 9.2 Impressions: Chest X-Ray 10/17/16 22:46 IMPRESSION: No interval change in the chest. No acute findings. Assessment & Plan - Diagnosis (1) Sepsis Qualifiers: Sepsis type: sepsis due to unspecified organism Qualified Code(s): A41.9 - Sepsis, unspecified organism Is this a current diagnosis for this admission?: Yes (2) UTI (urinary tract infection) due to urinary indwelling Barton catheter Qualifiers: Indwelling urinary catheter type: indwelling urethral catheter Encounter type: initial encounter Qualified Code(s): T83.511A - Infection and inflammatory reaction due to indwelling urethral catheter, initial encounter; N39.0 - Urinary tract infection, site not specified Is this a current diagnosis for this admission?: Yes (3) Abnormal cardiac enzyme level Is this a current diagnosis for this admission?: Yes (4) Hypokalemia Is this a current diagnosis for this admission?: Yes (5) COPD (chronic obstructive pulmonary disease) Qualifiers: COPD type: unspecified COPD Qualified Code(s): J44.9 - Chronic obstructive pulmonary disease, unspecified Is this a current diagnosis for this admission?: Yes (6) Chronic respiratory failure with hypoxia Is this a current diagnosis for this admission?: Yes (7) Diabetes mellitus type II, controlled Qualifiers: Diabetes mellitus complication status: without complication Diabetes mellitus chcf insulin use: without 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 operator 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 Qualified Code(s): E11.9 - Type 2 diabetes mellitus without complications Is this a current diagnosis for this admission?: Yes (8) Morbid (severe) obesity with alveolar hypoventilation Is this a current diagnosis for this admission?: Yes (9) A-fib Qualifiers: Atrial fibrillation type: paroxysmal Qualified Code(s): I48.0 - Paroxysmal atrial fibrillation Is this a current diagnosis for this admission?: Yes (10) Anemia, chronic disease Is this a current diagnosis for this admission?: Yes (11) CKD (chronic kidney disease), stage III Is this a current diagnosis for this admission?: Yes (12) Chronic pain syndrome Is this a current diagnosis for this admission?: Yes (13) Generalized anxiety disorder Is this a current diagnosis for this admission?: Yes (14) Hypertension Qualifiers: Hypertension type: essential hypertension Qualified Code(s): I10 - Essential (primary) hypertension Is this a current diagnosis for this admission?: Yes (15) Obstructive sleep apnea Is this a current diagnosis for this admission?: Yes (16) Polypharmacy Is this a current diagnosis for this admission?: Yes (17) Heart failure Qualifiers: Heart failure type: diastolic Heart failure chronicity: chronic Qualified Code(s): I50.32 - Chronic diastolic (congestive) heart failure Is this a current diagnosis for this admission?: Yes (18) History of pulmonary embolism Is this a current diagnosis for this admission?: Yes - Time Time Spent with patient: 25-34 minutes - Plan Summary Plan Summary: I'm going to resume the patient's home bronchodilators as well as steroids. We will also resume inhaled steroids. I will add Zyrtec and Tessalon Perles. On data current antibiotics for now. Follow cultures. Continue supportive care. Decrease intravenous fluids.
[2016-10-19] MEDS: POTASSI CL 20 MEQ/50 ML RIDER 50 ML IV SCH ×2 (09:56→09:57)
[2016-10-19] MEDS ORDERED: DULOXETINE HCL 90 MG PO SCH (10:00)
[2016-10-19] MEDS ORDERED: PREGABALIN 100 MG CAPSULE PO SCH (10:00)
[2016-10-19] MEDS ORDERED: FUROSEMIDE 40 MG TABLET PO SCH (10:00)
[2016-10-19] MEDS: POTASSIUM CHLORIDE 10 MEQ TABLET.SA PO SCH ×2 (10:45→14:45)
[2016-10-19] MEDS: PREDNISONE 20 MG TABLET PO SCH ×2 (10:46→17:12)
[2016-10-19] MEDS: PREGABALIN 100 MG CAPSULE PO SCH ×2 (10:46→22:16)
[2016-10-19] MEDS: DIGOXIN 0.25 MG TABLET PO SCH (10:46)
[2016-10-19] MEDS: DULOXETINE HCL 30 MG CAPSULE.DR PO SCH (10:46)
[2016-10-19] MEDS: BENZONATATE 100 MG CAPSULE PO SCH ×2 (10:46→17:11)
[2016-10-19] MEDS: BUSPIRONE HCL 10 MG TABLET PO SCH ×2 (10:47→17:12)
[2016-10-19] MEDS: ASPIRIN 81 MG TABLET, ENT COATED PO SCH (10:47)
[2016-10-19] MEDS: HYDROCODONE/ACETAMINOPHEN 5-325 MG TABLET PO PRN ×3 (10:47→23:10)
[2016-10-19] MEDS: CETIRIZINE 10 MG TABLET PO SCH (10:47)
[2016-10-19] MEDS: METOPROLOL SUCCINATE 25 MG TAB.SR.24H PO SCH ×2 (10:48→22:16)
[2016-10-19] MEDS: APIXABAN 5 MG TABLET PO SCH (10:48)
[2016-10-19] MEDS: TIOTROPIUM BROMIDE DPI 5 CAP/KIT (18 MCG/CAP) IH SCH (10:48)
[2016-10-19] MEDS: INSULIN DETEMIR 100 UNIT/ML 3 ML PEN SUBCUT SCH (10:48)
[2016-10-19] MEDS: RANOLAZINE 500 MG TAB.SR.12H PO SCH ×2 (10:49→22:16)
[2016-10-19] MEDS: IPRATROPIUM/ALBUTEROL 0.5-2.5 MG/3 ML AMPUL NEB PRN ×3 (11:26→20:02)
[2016-10-19] MEDS ORDERED: BUDESONIDE NEB 0.5 MG/2 ML AMPUL NEB SCH (12:00)
--- NOTE | 2016-10-19 12:20 | PDOC PROGRESS REPORT ---
Subjective Progress Note for:: 10/19/16 Subjective:: Patient seems to be doing better with gradual improvement. Pt is denying any chest arm or neck discomfort. Patient denying any PND, orthopnea. Patient denied any sustained palpitations, dizziness, syncope, near syncope. Patient denying any fever chills. Patient denying any other significant discomfort. Patient is maintaining sinus rhythm. Patient has noted some nausea. Cardiac- espinosa she claims to be doing better. Review of systems: Rest review of systems negative. Medications: Medications have been reviewed. Nuclear stress test procedure, risks benefits were discussed with the patient. Patient however declines to pursue it. Patient understands that there is possible underlying CAD. Physical Exam Vital Signs: Temp Pulse Resp BP Pulse Ox 98.8 F 91 20 145/65 H 94 10/19/16 11:24 10/19/16 11:26 10/19/16 11:26 10/19/16 11:24 10/19/16 11:26 Intake & Output 10/18/16 10/19/16 10/20/16 06:59 06:59 06:59 Intake Total 1140 420 Output Total 1000 250 Balance 140 170 Weight 100.3 kg Exam: GENERAL: well-nourished and in no acute distress. Alert and oriented x3 HEAD: Atraumatic, normocephalic. EYES: Pupils equal round and reactive to light, extraocular movements intact, sclera anicteric, conjunctiva are normal. ENT: TMs normal, nares patent, oropharynx clear without exudates. Moist mucous membranes. No oral ulcerations or bleeding gums noted NECK: supple without lymphadenopathy. Trachea is central. No cervical or axillary lymphadenopathy noted. Carotids are 2+, JVD WNL LUNGS: Respiration seems nonlabored, no significant accessory muscle action noted. Breath sounds clear to auscultation bilaterally except for few wheezing and crackles. No dullness noted. CHEST: Palpation of the chest wall shows no significant chest wall tenderness. No other significant abnormalities noted. 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 ABDOMEN: Soft, no significant tenderness appreciated, normoactive bowel sounds. No guarding, no rebound. No rigidity noted . No masses appreciated. EXTREMITIES: Pedal pulses are 1-2+, no calf tenderness noted. No clubbing or cyanosis.trace to 1+ pedal edema noted NEUROLOGICAL: Focused neurological exam showed no significant neurologic deficit. Normal speech, lower extremity bilaterally weak but formal strength not checked. PSYCH: Normal mood, normal affect. Judgment and insight within normal limits. SKIN: No significant ecchymosis, rash, ulcerations or signs of pruritus noted. MUSCULOSKELETAL EXAM: No significant joint swelling noted. Results Laboratory Results: 10/19/16 05:00 10/19/16 05:00 10/18/16 10/19/16 10/19/16 14:25 05:00 05:00 WBC 12.2 H RBC 3.56 L Hgb 10.7 L Hct 31.9 L MCV 90 MCH 30.0 MCHC 33.4 RDW 15.5 H Plt Count 88 L Seg Neutrophils % Not Reportable Lymphocytes % Not Reportable Monocytes % Not Reportable Eosinophils % Not Reportable Basophils % Not Reportable Absolute Neutrophils Not Reportable Absolute Lymphocytes Not Reportable Absolute Monocytes Not Reportable Absolute Eosinophils Not Reportable Absolute Basophils Not Reportable Carbonic Acid 1.39 H HCO3/H2CO3 Ratio 20:1 ABG pH 7.40 ABG pCO2 46.2 H ABG pO2 65.9 L ABG HCO3 27.8 H ABG O2 Saturation 92.9 L ABG Base Excess 2.5 FiO2 28% Sodium 142.7 Potassium 3.3 L Chloride 102 Carbon Dioxide 33 H Anion Gap 8 BUN 32 H Creatinine 0.94 Est GFR ( Amer) > 60 Est GFR (Non-Af Amer) 58 L Glucose 235 H Calcium 9.2 Impressions: Chest X-Ray 10/17/16 22:46 IMPRESSION: No interval change in the chest. No acute findings. Assessment & Plan - Diagnosis (1) Elevated troponin Is this a current diagnosis for this admission?: Yes (2) Fever Qualifiers: Fever type: unspecified Qualified Code(s): R50.9 - Fever, unspecified Is this a current diagnosis for this admission?: Yes (3) Shortness of breath Is this a current diagnosis for this admission?: Yes (4) UTI (urinary tract infection) Qualifiers: Urinary tract infection type: site unspecified Is this a current diagnosis for this admission?: Yes (5) Abnormal electrocardiogram Is this a current diagnosis for this admission?: Yes (6) Paroxysmal atrial tachycardia Is this a current diagnosis for this admission?: Yes - Notes Notes: 2-D echocardiogram results were discussed. It showed lower limit of normal LVEF. No significant valvular stenosis or regurgitations were noted. As noted above patient did decline to pursue a nuclear stress test. Elevated troponin I: Most likely related to paroxysmal atrial tachycardia, sepsis etc. Patient does have abnormal EKG with some ST segment changes therefore cannot rule out acute coronary syndrome. Medical management is being recommended.. Have placed patient on metoprolol succinate, aspirin, Ranexa, continue anticoagulation with ELIQUIS for other condition that patient has. Will recommend statin therapy. Febrile illness: Most likely related to recurrent UTI. Dyspnea: Most likely related to general debility, possible sepsis. Will order a 2-D echocardiogram to evaluate this further. Urinary tract infection: Most likely recurrent. Continue antibiotic therapy. Abnormal electrocardiogram: Please see assessment under elevated troponin I. Paroxysmal atrial tachycardia: Have placed patient on metoprolol succinate, Ranexa might help in this regard as well. Patient at risk for going back into A. fib. Recent studies have shown that Ranexa may be of some in preventing recurrence of atrial fibrillation. I'm told by the hospitalist that patient has a prior history of pulmonary embolism and atrial fibrillation. - Time Time with patient: Greater than 35 minutes - CODE STATUS : was discussed, patient remains DO NOT RESUSCITATE. Surrogate decision-maker unchanged. Multiple medical problems were addressed.More than 50% of the time spent coordinating care, discussing management plans with involved caregivers. Management plans discussed with involved personnels. Medical decision making was of moderate to high complexity, patient's has multiple severe comorbidities.
[2016-10-19] MEDS: BUDESONIDE NEB 0.5 MG/2 ML AMPUL NEB SCH (20:02)
[2016-10-20] MEDS: IMIPENEM/CILASTATIN SODIUM 500 MG in NORMAL SALINE 100 ML IV SCH ×4 (03:00→21:08)
[2016-10-20] MEDS: BENZONATATE 100 MG CAPSULE PO SCH ×3 (03:25→18:05)
[2016-10-20 07:18] LABS: ANION GAP 9 (5-19); BLOOD UREA NITROGEN 29 mg/dL (7-20); CALCIUM 9.1 mg/dL (8.4-10.2); CARBON DIOXIDE 30 mmol/L (22-30); CHLORIDE 102 mmol/L (98-107); CREATININE RESULT 0.75 mg/dL (0.52-1.25); GLUCOSE 236 mg/dL (75-110); POTASSIUM 4.4 mmol/L (3.6-5.0); SODIUM 141.3 mmol/L (137-145)
[2016-10-20] MEDS: IPRATROPIUM/ALBUTEROL 0.5-2.5 MG/3 ML AMPUL NEB PRN ×3 (08:18→15:16)
[2016-10-20] MEDS: BUDESONIDE NEB 0.5 MG/2 ML AMPUL NEB SCH ×2 (08:18→19:40)
[2016-10-20] MEDS: INSULIN LISPRO 100 UNIT/ML 3 ML VIAL SUBCUT PRN ×2 (08:29→18:04)
[2016-10-20] MEDS: LANSOPRAZOLE 15 MG TAB.RAP.DR PO SCH (08:30)
[2016-10-20] MEDS: HYDROCODONE/ACETAMINOPHEN 5-325 MG TABLET PO PRN ×2 (08:31→15:31)
[2016-10-20] MEDS: POTASSIUM CHLORIDE 10 MEQ TABLET.SA PO SCH (10:43)
[2016-10-20] MEDS: DULOXETINE HCL 30 MG CAPSULE.DR PO SCH (10:44)
[2016-10-20] MEDS: DIGOXIN 0.25 MG TABLET PO SCH (10:45)
[2016-10-20] MEDS: PREGABALIN 100 MG CAPSULE PO SCH ×2 (10:45→21:09)
[2016-10-20] MEDS: APIXABAN 5 MG TABLET PO SCH (10:45)
[2016-10-20] MEDS: CETIRIZINE 10 MG TABLET PO SCH (10:45)
[2016-10-20] MEDS: RANOLAZINE 500 MG TAB.SR.12H PO SCH ×2 (10:45→21:08)
[2016-10-20] MEDS: METOPROLOL SUCCINATE 25 MG TAB.SR.24H PO SCH ×2 (10:47→21:08)
[2016-10-20] MEDS: PREDNISONE 20 MG TABLET PO SCH ×2 (10:47→18:05)
[2016-10-20] MEDS: FUROSEMIDE 40 MG TABLET PO SCH (10:48)
[2016-10-20] MEDS: BUSPIRONE HCL 10 MG TABLET PO SCH ×2 (10:48→18:05)
[2016-10-20] MEDS: ASPIRIN 81 MG TABLET, ENT COATED PO SCH (10:49)
[2016-10-20] MEDS: TIOTROPIUM BROMIDE DPI 5 CAP/KIT (18 MCG/CAP) IH SCH (11:00)
[2016-10-20] MEDS: INSULIN DETEMIR 100 UNIT/ML 3 ML PEN SUBCUT SCH (11:01)
--- NOTE | 2016-10-20 11:14 | PDOC PROGRESS REPORT ---
Subjective Progress Note for:: 10/20/16 Subjective:: Patient seems to be doing better with gradual improvement. Pt is denying any chest arm or neck discomfort. Patient denying any PND, orthopnea. Patient denied any sustained palpitations, dizziness, syncope, near syncope. Patient denying any fever chills. Patient denying any other significant discomfort. Patient is maintaining sinus rhythm. Patient continues to have mild nausea. Cardiac-espinosa she claims to be doing better. Review of systems: Rest review of systems negative. Medications: Medications have been reviewed. Nuclear stress test procedure, risks benefits were again discussed with the patient. Patient however declines to pursue it. Patient understands that there is possible underlying CAD. Physical Exam Vital Signs: Temp Pulse Resp BP Pulse Ox 98.0 F 90 20 161/83 H 95 10/20/16 07:46 10/20/16 08:18 10/20/16 08:18 10/20/16 07:46 10/20/16 08:18 Intake & Output 10/19/16 10/20/16 10/21/16 06:59 06:59 06:59 Intake Total 1140 1205 Output Total 1000 1700 Balance 140 -495 Weight 100.3 kg 103.8 kg Exam: GENERAL: well-nourished and in no acute distress. Alert and oriented x3 HEAD: Atraumatic, normocephalic. EYES: Pupils equal round and reactive to light, extraocular movements intact, sclera anicteric, conjunctiva are normal. ENT: TMs normal, nares patent, oropharynx clear without exudates. Moist mucous membranes. No oral ulcerations or bleeding gums noted NECK: supple without lymphadenopathy. Trachea is central. No cervical or axillary lymphadenopathy noted. Carotids are 2+, JVD WNL LUNGS: Respiration seems nonlabored, no significant accessory muscle action noted. Breath sounds clear to auscultation bilaterally and equal noted. No wheezes rales or rhonchi noted. No significant dullness noted on percussion. CHEST: Palpation of the chest wall shows no significant chest wall tenderness. No other significant abnormalities noted. 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 ABDOMEN: Soft, no significant tenderness appreciated, normoactive bowel sounds. No guarding, no rebound. No rigidity noted . No masses appreciated. EXTREMITIES: Pedal pulses are 1-2+, no calf tenderness noted. No clubbing or cyanosis.trace to 1+ pedal edema noted NEUROLOGICAL: Focused neurological exam showed no significant neurologic deficit. Normal speech, bilateral mild lower extremity weakness noted. PSYCH: Normal mood, normal affect. Judgment and insight within normal limits. SKIN: No significant ecchymosis, rash, ulcerations or signs of pruritus noted. MUSCULOSKELETAL EXAM: No significant joint swelling noted. Results Laboratory Results: 10/19/16 05:00 10/20/16 06:26 10/20/16 06:26 Sodium 141.3 Potassium 4.4 Chloride 102 Carbon Dioxide 30 Anion Gap 9 BUN 29 H Creatinine 0.75 Est GFR ( Amer) > 60 Est GFR (Non-Af Amer) > 60 Glucose 236 H Calcium 9.1 Impressions: Chest X-Ray 10/17/16 22:46 IMPRESSION: No interval change in the chest. No acute findings. Assessment & Plan - Diagnosis (1) Elevated troponin Is this a current diagnosis for this admission?: Yes (2) Fever Qualifiers: Fever type: unspecified Qualified Code(s): R50.9 - Fever, unspecified Is this a current diagnosis for this admission?: Yes (3) Shortness of breath Is this a current diagnosis for this admission?: Yes (4) UTI (urinary tract infection) Qualifiers: Urinary tract infection type: site unspecified Is this a current diagnosis for this admission?: Yes (5) Abnormal electrocardiogram Is this a current diagnosis for this admission?: Yes (6) Paroxysmal atrial tachycardia Is this a current diagnosis for this admission?: Yes - Notes Notes: Elevated troponin I: Most likely related to paroxysmal atrial tachycardia, sepsis etc. Patient does have abnormal EKG with some ST segment changes therefore cannot rule out acute coronary syndrome. Patient has declined to pursue an ischemia evaluation therefore on medical management. Have optimized medical management and placed patient on metoprolol succinate, aspirin, Ranexa, ELIQUIS. Continue statin therapy Febrile illness: Most likely related to recurrent UTI. Dyspnea: Most likely related to general debility, possible sepsis. 2-D echo results were reviewed.. Urinary tract infection: Most likely recurrent. Continue antibiotic therapy. Abnormal electrocardiogram: Please see assessment under elevated troponin I. Paroxysmal atrial tachycardia: Continue patient on metoprolol succinate, Ranexa might help in this regard as well. Patient was noted to be placed on digoxin at 0.25 mg by mouth daily, believe this is a high dose and have reduced digoxin to 0.125 mg by mouth daily. - Time Time with patient: 15-25 minutes - CODE STATUS : was discussed, patient remains DO NOT RESUSCITATE. Surrogate decision-maker patient's daughter by the name Lida Cowart. Multiple medical problems were addressed.More than 50% of the time spent coordinating care, discussing management plans with involved caregivers. Management plans discussed with involved personnels. Medical decision making was of moderate complexity, patient's has multiple severe comorbidities.
[2016-10-20] MEDS ORDERED: NORMAL SALINE 1000 ML 1,000 ML IV PRN (11:15)
--- NOTE | 2016-10-20 11:20 | PDOC PROGRESS REPORT ---
Subjective Progress Note for:: 10/20/16 Subjective:: Patient is resting comfortably. No reported temperature spikes or respiratory distress. Patient has a lot of anxiety on all issues, patient states that she needs an enema although she had bowel movements, she is having a lot of coughing that she attributes to allergies and wanting medication for allergies and so on. Her medications were decreased when she was in rehabilitation in [place], and likewise when she was at [facility]. Physical Exam Vital Signs: Temp Pulse Resp BP Pulse Ox 98.0 F 90 20 161/83 H 95 10/20/16 07:46 10/20/16 08:18 10/20/16 08:18 10/20/16 07:46 10/20/16 08:18 Intake & Output 10/19/16 10/20/16 10/21/16 06:59 06:59 06:59 Intake Total 1140 1205 Output Total 1000 1700 Balance 140 -495 Weight 100.3 kg 103.8 kg General appearance: PRESENT: no acute distress, obese Head exam: PRESENT: normocephalic Eye exam: PRESENT: conjunctiva pale Mouth exam: PRESENT: moist, neck supple Neck exam: ABSENT: JVD Respiratory exam: PRESENT: rhonchi - Scattered bilateral, unlabored. ABSENT: wheezes Cardiovascular exam: PRESENT: irregular rhythm. ABSENT: gallop GI/Abdominal exam: PRESENT: hypoactive bowel sounds, soft. ABSENT: tenderness Extremities exam: PRESENT: other - Trace lower extremity edema Skin exam: PRESENT: dry, warm. ABSENT: cyanosis Results Laboratory Results: 10/19/16 05:00 10/20/16 06:26 10/20/16 06:26 Sodium 141.3 Potassium 4.4 Chloride 102 Carbon Dioxide 30 Anion Gap 9 BUN 29 H Creatinine 0.75 Est GFR ( Amer) > 60 Est GFR (Non-Af Amer) > 60 Glucose 236 H Calcium 9.1 Impressions: Chest X-Ray 10/17/16 22:46 IMPRESSION: No interval change in the chest. No acute findings. Assessment & Plan - Diagnosis (1) Sepsis Qualifiers: Sepsis type: sepsis due to unspecified organism Qualified Code(s): A41.9 - Sepsis, unspecified organism Is this a current diagnosis for this admission?: Yes (2) UTI (urinary tract infection) due to urinary indwelling Barton catheter Qualifiers: Indwelling urinary catheter type: indwelling urethral catheter Encounter type: initial encounter Qualified Code(s): T83.511A - Infection and inflammatory reaction due to indwelling urethral catheter, initial encounter; N39.0 - Urinary tract infection, site not specified Is this a current diagnosis for this admission?: Yes (3) Abnormal cardiac enzyme level Is this a current diagnosis for this admission?: Yes (4) Hypokalemia Is this a current diagnosis for this admission?: Yes (5) COPD (chronic obstructive pulmonary disease) Qualifiers: COPD type: unspecified COPD Qualified Code(s): J44.9 - Chronic obstructive pulmonary disease, unspecified Is this a current diagnosis for this admission?: Yes (6) Chronic respiratory failure with hypoxia Is this a current diagnosis for this admission?: Yes (7) Diabetes mellitus type II, controlled Qualifiers: Diabetes mellitus complication status: without complication 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: without retirement use Qualified Code(s): E11.9 - Type 2 diabetes mellitus without complications Is this a current diagnosis for this admission?: Yes (8) Morbid (severe) obesity with alveolar hypoventilation Is this a current diagnosis for this admission?: Yes (9) A-fib Qualifiers: Atrial fibrillation type: paroxysmal Qualified Code(s): I48.0 - Paroxysmal atrial fibrillation Is this a current diagnosis for this admission?: Yes (10) Anemia, chronic disease Is this a current diagnosis for this admission?: Yes (11) CKD (chronic kidney disease), stage III Is this a current diagnosis for this admission?: Yes (12) Chronic pain syndrome Is this a current diagnosis for this admission?: Yes (13) Generalized anxiety disorder Is this a current diagnosis for this admission?: Yes (14) Hypertension Qualifiers: Hypertension type: essential hypertension Qualified Code(s): I10 - Essential (primary) hypertension Is this a current diagnosis for this admission?: Yes (15) Obstructive sleep apnea Is this a current diagnosis for this admission?: Yes (16) Polypharmacy Is this a current diagnosis for this admission?: Yes (17) Heart failure Qualifiers: Heart failure type: diastolic Heart failure chronicity: chronic Qualified Code(s): I50.32 - Chronic diastolic (congestive) heart failure Is this a current diagnosis for this admission?: Yes (18) History of pulmonary embolism Is this a current diagnosis for this admission?: Yes - Time Time Spent with patient: 15-24 minutes - Plan Summary Plan Summary: Continue current antibiotics. Follow cultures. So far Specimen is negative we will keep the IV line for now. Decrease intravenous fluids. Continue other medication and supportive care. Monitor electrolytes.
[2016-10-21] MEDS: INSULIN LISPRO 100 UNIT/ML 3 ML VIAL SUBCUT PRN ×3 (01:19→17:18)
[2016-10-21] MEDS: BENZONATATE 100 MG CAPSULE PO SCH ×3 (01:20→17:16)
[2016-10-21] MEDS: HYDROCODONE/ACETAMINOPHEN 5-325 MG TABLET PO PRN ×4 (01:44→22:09)
[2016-10-21] MEDS: IMIPENEM/CILASTATIN SODIUM 500 MG in NORMAL SALINE 100 ML IV SCH ×4 (03:51→22:08)
[2016-10-21 04:43] LABS: HEMATOCRIT 32.2 % (36.0-47.0); HEMOGLOBIN 10.8 g/dL (12.0-15.5); HGB HCT DIFFERENCE 0.2; MEAN CORPUSCULAR HEMOGLOBIN 30.1 pg (27.0-33.4); MEAN CORPUSCULAR HGB CONC 33.6 g/dL (32.0-36.0); MEAN CORPUSCULAR VOLUME 90 fl (80-97); RED BLOOD COUNT 3.59 10^6/uL (3.72-5.28); RED CELL DISTRIBUTION WIDTH 15.6 % (11.5-14.0); WHITE BLOOD COUNT 6.3 10^3/uL (4.0-10.5)
[2016-10-21] MEDS: BUDESONIDE NEB 0.5 MG/2 ML AMPUL NEB SCH ×2 (07:24→20:06)
[2016-10-21] MEDS: IPRATROPIUM/ALBUTEROL 0.5-2.5 MG/3 ML AMPUL NEB PRN ×2 (07:24→13:22)
[2016-10-21] MEDS: LANSOPRAZOLE 15 MG TAB.RAP.DR PO SCH (08:23)
[2016-10-21] MEDS: INSULIN DETEMIR 100 UNIT/ML 3 ML PEN SUBCUT SCH (09:35)
[2016-10-21] MEDS: TIOTROPIUM BROMIDE DPI 5 CAP/KIT (18 MCG/CAP) IH SCH (09:36)
[2016-10-21] MEDS: POTASSIUM CHLORIDE 10 MEQ TABLET.SA PO SCH (09:37)
[2016-10-21] MEDS: DULOXETINE HCL 30 MG CAPSULE.DR PO SCH (09:38)
[2016-10-21] MEDS: PREDNISONE 20 MG TABLET PO SCH ×2 (09:40→17:15)
[2016-10-21] MEDS: ASPIRIN 81 MG TABLET, ENT COATED PO SCH (09:40)
[2016-10-21] MEDS: DIGOXIN 0.125 MG TABLET PO SCH (09:41)
[2016-10-21] MEDS: CETIRIZINE 10 MG TABLET PO SCH (09:41)
[2016-10-21] MEDS: FUROSEMIDE 40 MG TABLET PO SCH (09:41)
[2016-10-21] MEDS: PREGABALIN 100 MG CAPSULE PO SCH ×2 (09:41→22:09)
[2016-10-21] MEDS: BUSPIRONE HCL 10 MG TABLET PO SCH ×2 (09:41→17:16)
[2016-10-21] MEDS: APIXABAN 5 MG TABLET PO SCH (09:42)
[2016-10-21] MEDS: RANOLAZINE 500 MG TAB.SR.12H PO SCH ×2 (09:43→22:14)
[2016-10-21] MEDS: METOPROLOL SUCCINATE 25 MG TAB.SR.24H PO SCH ×2 (09:43→22:09)
--- NOTE | 2016-10-21 10:53 | PDOC PROGRESS REPORT ---
Subjective Progress Note for:: 10/21/16 Subjective:: Patient has a lot of anxiety, reportedly needs laxatives when she actually has bowel movements, complaining of pneumonia, but no worsening congestion or cough nor wheezing. Patient reports aches and pain and has been on OxyContin and oxycodone in the [facility], however on the med rec patient is on as needed oxycodone. Reportedly her medications were reviewed, when she was in long-term acute care at [facility], wanting to resume back her sleeping pill. Physical Exam Vital Signs: Temp Pulse Resp BP Pulse Ox 98.0 F 84 24 H 177/93 H 100 10/21/16 08:33 10/21/16 08:33 10/21/16 08:33 10/21/16 08:33 10/21/16 08:33 Intake & Output 10/20/16 10/21/16 10/22/16 06:59 06:59 06:59 Intake Total 1205 2494 Output Total 1700 2425 Balance -495 69 Weight 103.8 kg 105.3 kg General appearance: PRESENT: no acute distress, morbidly obese Head exam: PRESENT: normocephalic Eye exam: PRESENT: EOMI Mouth exam: PRESENT: moist, neck supple Neck exam: ABSENT: JVD Respiratory exam: PRESENT: rhonchi - few, unlabored. ABSENT: wheezes Cardiovascular exam: PRESENT: RRR. ABSENT: gallop GI/Abdominal exam: PRESENT: normal bowel sounds, soft. ABSENT: distended - Obese, tenderness Extremities exam: PRESENT: other - Trace pretibial edema Neurological exam: PRESENT: alert, awake, oriented to situation Skin exam: PRESENT: dry, warm. ABSENT: cyanosis Results Laboratory Results: 10/21/16 03:35 10/20/16 06:26 10/21/16 03:35 WBC 6.3 RBC 3.59 L Hgb 10.8 L Hct 32.2 L MCV 90 MCH 30.1 MCHC 33.6 RDW 15.6 H Plt Count 95 L 10/18/16 21:00 Nasophary ([facility] Only) MRSA Surveillance Culture - Final MRSA RECOVERED Impressions: Chest X-Ray 10/17/16 22:46 IMPRESSION: No interval change in the chest. No acute findings. Assessment & Plan - Diagnosis (1) Sepsis Qualifiers: Sepsis type: sepsis due to unspecified organism Qualified Code(s): A41.9 - Sepsis, unspecified organism Is this a current diagnosis for this admission?: Yes (2) UTI (urinary tract infection) due to urinary indwelling Barton catheter Qualifiers: Indwelling urinary catheter type: indwelling urethral catheter Encounter type: initial encounter Qualified Code(s): T83.511A - Infection and inflammatory reaction due to indwelling urethral catheter, initial encounter; N39.0 - Urinary tract infection, site not specified Is this a current diagnosis for this admission?: Yes (3) Abnormal cardiac enzyme level Is this a current diagnosis for this admission?: Yes (4) Hypokalemia Is this a current diagnosis for this admission?: Yes (5) COPD (chronic obstructive pulmonary disease) Qualifiers: COPD type: unspecified COPD Qualified Code(s): J44.9 - Chronic obstructive pulmonary disease, unspecified Is this a current diagnosis for this admission?: Yes (6) Chronic respiratory failure with hypoxia Is this a current diagnosis for this admission?: Yes (7) Diabetes mellitus type II, controlled Qualifiers: Diabetes mellitus complication status: without complication Diabetes mellitus alf insulin use: without alf use Qualified Code(s): E11.9 - Type 2 diabetes mellitus without complications Is this a current diagnosis for this admission?: Yes (8) Morbid (severe) obesity with alveolar hypoventilation Is this a current diagnosis for this admission?: Yes (9) A-fib Qualifiers: Atrial fibrillation type: paroxysmal Qualified Code(s): I48.0 - Paroxysmal atrial fibrillation Is this a current diagnosis for this admission?: Yes (10) Anemia, chronic disease Is this a current diagnosis for this admission?: Yes (11) CKD (chronic kidney disease), stage III Is this a current diagnosis for this admission?: Yes (12) Chronic pain syndrome Is this a current diagnosis for this admission?: Yes (13) Generalized anxiety disorder Is this a current diagnosis for this admission?: Yes (14) Hypertension Qualifiers: Hypertension type: essential hypertension Qualified Code(s): I10 - Essential (primary) hypertension Is this a current diagnosis for this admission?: Yes (15) Obstructive sleep apnea Is this a current diagnosis for this admission?: Yes (16) Polypharmacy Is this a current diagnosis for this admission?: Yes (17) Heart failure Qualifiers: Heart failure type: diastolic Heart failure chronicity: chronic Qualified Code(s): I50.32 - Chronic diastolic (congestive) heart failure Is this a current diagnosis for this admission?: Yes (18) History of pulmonary embolism Is this a current diagnosis for this admission?: Yes - Plan Summary Plan Summary: We will arrange for 2 weeks of IV antibiotics in the prison with Primaxin. I will resume her melatonin, we will add Serevent to patient's inhaler, currently on Spiriva and Pulmicort. Continue supportive care. I have encouraged her to discontinue the Barton catheter, she is agreeable to start. We will discontinue it and monitor for voiding or retention
[2016-10-21] MEDS: LACTULOSE SYRUP 20 GM/30 ML UDCUP PO PRN (17:17)
--- NOTE | 2016-10-21 19:51 | PDOC PROGRESS REPORT ---
Subjective Progress Note for:: 10/21/16 Subjective:: Patient seems to be doing worse with increased wheezing and shortness of breath. Pt is denying any chest arm or neck discomfort. Patient denying any PND, orthopnea. Patient denied any sustained palpitations, dizziness, syncope, near syncope. Patient denying any fever chills. Patient denying any other significant discomfort. Patient concerned about CHF and also pneumonia being developing. Patient claims that she used to take Lasix 40 mg by mouth twice a day at home. Patient is maintaining sinus rhythm. Medications: Medications have been reviewed. Physical Exam Vital Signs: Temp Pulse Resp BP Pulse Ox 98.2 F 82 20 169/74 H 100 10/21/16 15:26 10/21/16 15:26 10/21/16 15:26 10/21/16 15:26 10/21/16 15:26 Intake & Output 10/20/16 10/21/16 10/22/16 06:59 06:59 06:59 Intake Total 1205 2494 650 Output Total 1700 2425 700 Balance -495 69 -50 Weight 103.8 kg 105.3 kg Exam: GENERAL: well-nourished and in no acute distress. Alert and oriented x3 HEAD: Atraumatic, normocephalic. EYES: Pupils equal round and reactive to light, extraocular movements intact, sclera anicteric, conjunctiva are normal. ENT: TMs normal, nares patent, oropharynx clear without exudates. Moist mucous membranes. No oral ulcerations or bleeding gums noted NECK: supple without lymphadenopathy. Trachea is central. No cervical or axillary lymphadenopathy noted. Carotids are 2+, JVD WNL LUNGS: Respiration seems nonlabored, no significant accessory muscle action noted. Bilateral wheezing noted bibasilar crackles noted CHEST: Palpation of the chest wall shows no significant chest wall tenderness. No other significant abnormalities noted. 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 ABDOMEN: Soft, no significant tenderness appreciated, normoactive bowel sounds. No guarding, no rebound. No rigidity noted . No masses appreciated. EXTREMITIES: Pedal pulses are 1-2+, no calf tenderness noted. No clubbing or cyanosis.1+ pedal edema noted NEUROLOGICAL: Focused neurological exam showed no significant neurologic deficit. Normal speech, patient claims bilateral lower extremity weakness. PSYCH: Normal mood, normal affect. Judgment and insight within normal limits. SKIN: No significant ecchymosis, rash, ulcerations or signs of pruritus noted. MUSCULOSKELETAL EXAM: No significant joint swelling noted. Results Laboratory Results: 10/21/16 03:35 10/20/16 06:26 10/21/16 03:35 WBC 6.3 RBC 3.59 L Hgb 10.8 L Hct 32.2 L MCV 90 MCH 30.1 MCHC 33.6 RDW 15.6 H Plt Count 95 L Impressions: Chest X-Ray 10/17/16 22:46 IMPRESSION: No interval change in the chest. No acute findings. Assessment & Plan - Diagnosis (1) Shortness of breath Is this a current diagnosis for this admission?: Yes (2) Elevated troponin Is this a current diagnosis for this admission?: Yes (3) Fever Qualifiers: Fever type: unspecified Qualified Code(s): R50.9 - Fever, unspecified Is this a current diagnosis for this admission?: Yes (4) UTI (urinary tract infection) Qualifiers: Urinary tract infection type: site unspecified Is this a current diagnosis for this admission?: Yes (5) Abnormal electrocardiogram Is this a current diagnosis for this admission?: Yes (6) Paroxysmal atrial tachycardia Is this a current diagnosis for this admission?: Yes - Notes Notes: Dyspnea: This is worse today. Patient and send about pneumonia and CHF. Will increase Lasix to 40 twice a day which she was taking at home. We'll check a BNP level, EKG and a chest x-ray PA and lateral in the morning. Elevated troponin I: Patient declines stress test. She has declined further evaluation. Have optimize therapy for underlying presumed CAD. Urinary tract infection: Seems improved. Paroxysmal atrial tachycardia: Telemetry strips reviewed no recurrence. Patient to report any recurrence. - Time Time with patient: 15-25 minutes - CODE STATUS : was discussed, patient remains DO NOT RESUSCITATE. Surrogate decision-maker unchanged. Multiple medical problems were addressed.More than 50% of the time spent coordinating care, discussing management plans with involved caregivers. Management plans discussed with involved personnels. Medical decision making was of moderate to high complexity, patient's has multiple severe comorbidities.
[2016-10-22] MEDS: INSULIN LISPRO 100 UNIT/ML 3 ML VIAL SUBCUT PRN ×4 (00:22→18:38)
[2016-10-22] MEDS: BENZONATATE 100 MG CAPSULE PO SCH ×3 (01:29→18:38)
[2016-10-22] MEDS: IMIPENEM/CILASTATIN SODIUM 500 MG in NORMAL SALINE 100 ML IV SCH ×4 (03:54→21:16)
[2016-10-22] MEDS ORDERED: ENALAPRILAT DIHYDRATE INJ/PF 1.25 MG/1 ML SDV IV ONE ×2 (04:12→04:30)
[2016-10-22] MEDS: HYDROCODONE/ACETAMINOPHEN 5-325 MG TABLET PO PRN ×3 (06:40→21:05)
[2016-10-22] MEDS: IPRATROPIUM/ALBUTEROL 0.5-2.5 MG/3 ML AMPUL NEB PRN ×2 (08:24→12:57)
[2016-10-22] MEDS: BUDESONIDE NEB 0.5 MG/2 ML AMPUL NEB SCH ×2 (08:24→19:40)
[2016-10-22] MEDS: LANSOPRAZOLE 15 MG TAB.RAP.DR PO SCH (08:40)
[2016-10-22] MEDS: INSULIN DETEMIR 100 UNIT/ML 3 ML PEN SUBCUT SCH (09:08)
[2016-10-22] MEDS: POTASSIUM CHLORIDE 10 MEQ TABLET.SA PO SCH (09:11)
[2016-10-22] MEDS: FUROSEMIDE 40 MG TABLET PO SCH ×2 (09:12→18:38)
[2016-10-22] MEDS: ASPIRIN 81 MG TABLET, ENT COATED PO SCH (09:12)
[2016-10-22] MEDS: BUSPIRONE HCL 10 MG TABLET PO SCH ×2 (09:13→18:39)
[2016-10-22] MEDS: PREGABALIN 100 MG CAPSULE PO SCH ×2 (09:13→21:07)
[2016-10-22] MEDS: CETIRIZINE 10 MG TABLET PO SCH (09:14)
[2016-10-22] MEDS: DULOXETINE HCL 30 MG CAPSULE.DR PO SCH (09:14)
[2016-10-22] MEDS: TIOTROPIUM BROMIDE DPI 5 CAP/KIT (18 MCG/CAP) IH SCH (09:16)
[2016-10-22] MEDS: RANOLAZINE 500 MG TAB.SR.12H PO SCH ×2 (09:16→21:07)
[2016-10-22] MEDS: PREDNISONE 20 MG TABLET PO SCH ×2 (09:16→18:39)
[2016-10-22] MEDS: DIGOXIN 0.125 MG TABLET PO SCH (09:18)
[2016-10-22] MEDS: METOPROLOL SUCCINATE 25 MG TAB.SR.24H PO SCH ×2 (09:18→21:06)
[2016-10-22] MEDS: APIXABAN 5 MG TABLET PO SCH (09:19)
--- NOTE | 2016-10-22 10:44 | EKG REPORT ---
SEVERITY:- ABNORMAL ECG - SINUS RHYTHM ATRIAL PREMATURE COMPLEX INCOMPLETE LEFT BUNDLE BRANCH BLOCK LVH WITH SECONDARY REPOLARIZATION ABNORMALITY : Confirmed by: Jung Olvera 22-Oct-2016 10:43:11
--- NOTE | 2016-10-22 11:57 | PDOC PROGRESS REPORT ---
Subjective Progress Note for:: 10/22/16 Subjective:: Patient chronically anxious. Complains of pneumonia also time, chest x-ray was negative for acute infiltrate. No temperature spikes. WBC is now normal. Patient apparently complains of no bowel movement as well, staff reports patient has good bowel. Denies diarrhea however. Able to void without Barton catheter. Finally agreed to discontinue Barton catheter completely. Physical Exam Vital Signs: Temp Pulse Resp BP Pulse Ox 98.1 F 79 18 172/89 H 100 10/22/16 08:03 10/22/16 08:24 10/22/16 08:24 10/22/16 08:03 10/22/16 08:24 Intake & Output 10/21/16 10/22/16 10/23/16 06:59 06:59 06:59 Intake Total 2494 1106 Output Total 2425 700 Balance 69 406 Weight 105.3 kg 104 kg General appearance: PRESENT: no acute distress, obese Head exam: PRESENT: normocephalic Eye exam: PRESENT: EOMI Mouth exam: PRESENT: moist, neck supple Neck exam: ABSENT: JVD Respiratory exam: PRESENT: rhonchi - B/L. ABSENT: wheezes Cardiovascular exam: PRESENT: RRR. ABSENT: gallop GI/Abdominal exam: PRESENT: hypoactive bowel sounds, soft. ABSENT: distended, tenderness Extremities exam: PRESENT: other - Trace lower extremity edema Neurological exam: PRESENT: alert, awake, oriented to situation Skin exam: PRESENT: dry, warm. ABSENT: cyanosis Results Laboratory Results: 10/21/16 03:35 10/20/16 06:26 10/22/16 03:30 NT-Pro-B Natriuret Pep 5570 H Impressions: Chest X-Ray 10/22/16 00:00 IMPRESSION: No acute cardiopulmonary findings. Assessment & Plan - Diagnosis (1) Sepsis Qualifiers: Sepsis type: sepsis due to unspecified organism Qualified Code(s): A41.9 - Sepsis, unspecified organism Is this a current diagnosis for this admission?: Yes (2) UTI (urinary tract infection) due to urinary indwelling Barton catheter Qualifiers: Indwelling urinary catheter type: indwelling urethral catheter Encounter type: initial encounter Qualified Code(s): T83.511A - Infection and inflammatory reaction due to indwelling urethral catheter, initial encounter; N39.0 - Urinary tract infection, site not specified Is this a current diagnosis for this admission?: Yes (3) Abnormal cardiac enzyme level Is this a current diagnosis for this admission?: Yes (4) Hypokalemia Is this a current diagnosis for this admission?: Yes (5) COPD (chronic obstructive pulmonary disease) Qualifiers: COPD type: unspecified COPD Qualified Code(s): J44.9 - Chronic obstructive pulmonary disease, unspecified Is this a current diagnosis for this admission?: Yes (6) Chronic respiratory failure with hypoxia Is this a current diagnosis for this admission?: Yes (7) Diabetes mellitus type II, controlled Qualifiers: Diabetes mellitus complication status: without complication 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 mellitus termination clerk insulin use: without termination clerk use Qualified Code(s): E11.9 - Type 2 diabetes mellitus without complications Is this a current diagnosis for this admission?: Yes (8) Morbid (severe) obesity with alveolar hypoventilation Is this a current diagnosis for this admission?: Yes (9) A-fib Qualifiers: Atrial fibrillation type: paroxysmal Qualified Code(s): I48.0 - Paroxysmal atrial fibrillation Is this a current diagnosis for this admission?: Yes (10) Anemia, chronic disease Is this a current diagnosis for this admission?: Yes (11) CKD (chronic kidney disease), stage III Is this a current diagnosis for this admission?: Yes (12) Chronic pain syndrome Is this a current diagnosis for this admission?: Yes (13) Generalized anxiety disorder Is this a current diagnosis for this admission?: Yes (14) Hypertension Qualifiers: Hypertension type: essential hypertension Qualified Code(s): I10 - Essential (primary) hypertension Is this a current diagnosis for this admission?: Yes (15) Obstructive sleep apnea Is this a current diagnosis for this admission?: Yes (16) Polypharmacy Is this a current diagnosis for this admission?: Yes (17) Heart failure Qualifiers: Heart failure type: diastolic Heart failure chronicity: chronic Qualified Code(s): I50.32 - Chronic diastolic (congestive) heart failure Is this a current diagnosis for this admission?: Yes (18) History of pulmonary embolism Is this a current diagnosis for this admission?: Yes - Time Time Spent with patient: 25-34 minutes - Plan Summary Plan Summary: Her blood culture specimen from the carly-cath site is now growing gram- negative rods. We we will consult interventional radiology, to place a PICC line, consult surgery to remove Port-A-Cath after PICC line is placed. Repeat blood cultures after Port-A-Cath was removed. Case discussed with infectious disease. Follow-up blood culture needs to be negative, total of 2 weeks of IV antibiotics if the repeat .blood culture is negative.
[2016-10-22 13:49] LABS: PARTIAL THROMBOPLASTIN TIME 28.1 SEC (23.5-35.8); PROTHROMBIN TIME 15.1 SEC (11.4-15.4)
[2016-10-22] MEDS ORDERED: LIDOCAINE 0.5% INJ-PF (5 MG/ML) 50 ML SDV ONE ×2 (15:17→15:28)
[2016-10-22] MEDS ORDERED: LIDOCAINE 2% INJ-PF (100 MG/5 ML) SYRINGE ONE (15:17)
--- NOTE | 2016-10-22 16:20 | Operative Report ---
Operative Report DATE OF SURGERY: 10/22/16 PREOPERATIVE DIAGNOSIS: Sepsis; portacatheter infection POSTOPERATIVE DIAGNOSIS: Same OPERATION: Removal of right subclavian [id number] catheter SURGEON: LEW PATTERSON ANESTHESIA: Local TISSUE REMOVED OR ALTERED: port removal COMPLICATIONS: see below ESTIMATED BLOOD LOSS: scant INTRAOPERATIVE FINDINGS: See below PROCEDURE: After informed consent was obtained, the right subclavian area and the patient was prepped with Betadine. Surgical plan and surgical timeout. The skin was anesthetized with 1% lidocaine without epinephrine. Approximately 3 cm incision was made over the previous scar in the right subclavian position. The dual-lumen Port-A-Cath was removed uneventfully. The exit site of the subcutaneous tissue leading into the area was oversewn with 2-0 Vicryl sutures, 2. Closed with interrupted 3-0 Ethilon suture and a compressive dressing applied. Patient tolerated procedure well Plan #1 leave dressing on for 48 hours 2. Hold off on PICC line insertion for at least 12-24 hours. 3. Hold off on 10 A inhibitor for this coming evening
--- NOTE | 2016-10-22 19:40 | PDOC PROGRESS REPORT ---
Subjective Progress Note for:: 10/22/16 Subjective:: Patient seems to be doing better today with less wheezing and shortness of breath. Pt is denying any chest arm or neck discomfort. Patient denying any PND, orthopnea. Patient denied any sustained palpitations, dizziness, syncope, near syncope. Patient denying any fever chills. Patient denying any other significant discomfort. Patient does describe generalized weakness. Patient was placed on increased Lasix dose yesterday. Chest x-ray shows cardiomegaly with mild pulmonary venous congestion. This was ordered and reviewed today. Twelve-lead EKG showed sinus rhythm with APCs and some ST-T wave changes. BNP level came back elevated. Patient is maintaining sinus rhythm. Medications: Medications have been reviewed. Physical Exam Vital Signs: Temp Pulse Resp BP Pulse Ox 97.9 F 78 20 158/80 H 97 10/22/16 16:57 10/22/16 16:57 10/22/16 16:57 10/22/16 16:57 10/22/16 16:57 Intake & Output 10/21/16 10/22/16 10/23/16 06:59 06:59 06:59 Intake Total 2494 1106 1291 Output Total 2425 700 Balance 69 406 1291 Weight 105.3 kg 104 kg Exam: GENERAL: well-nourished and in no acute distress. Alert and oriented x3 HEAD: Atraumatic, normocephalic. EYES: Pupils equal round and reactive to light, extraocular movements intact, sclera anicteric, conjunctiva are normal. ENT: TMs normal, nares patent, oropharynx clear without exudates. Moist mucous membranes. No oral ulcerations or bleeding gums noted NECK: supple without lymphadenopathy. Trachea is central. No cervical or axillary lymphadenopathy noted. Carotids are 2+, JVD WNL LUNGS: Respiration seems nonlabored, no significant accessory muscle action noted. Bibasilar mild crackles and wheezing noted. CHEST: Palpation of the chest wall shows no significant chest wall tenderness. No other significant abnormalities noted. 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 ABDOMEN: Soft, no significant tenderness appreciated, normoactive bowel sounds. No guarding, no rebound. No rigidity noted . No masses appreciated. EXTREMITIES: Pedal pulses are 1-2+, no calf tenderness noted. No clubbing or cyanosis.trace to 1+ pedal edema noted NEUROLOGICAL: Focused neurological exam showed no significant neurologic deficit. Normal speech, patient claims bilateral lower extremity weakness and difficulty with ambulation. PSYCH: Normal mood, normal affect. Judgment and insight within normal limits. SKIN: No significant ecchymosis, rash, ulcerations or signs of pruritus noted. MUSCULOSKELETAL EXAM: No significant joint swelling noted. Results Laboratory Results: 10/21/16 03:35 10/20/16 06:26 10/22/16 03:30 NT-Pro-B Natriuret Pep 5570 H Impressions: Chest X-Ray 10/22/16 00:00 IMPRESSION: No acute cardiopulmonary findings. Assessment & Plan - Diagnosis (1) Shortness of breath Is this a current diagnosis for this admission?: Yes (2) Elevated troponin Is this a current diagnosis for this admission?: Yes (3) Fever Qualifiers: Fever type: unspecified Qualified Code(s): R50.9 - Fever, unspecified Is this a current diagnosis for this admission?: Yes (4) UTI (urinary tract infection) Qualifiers: Urinary tract infection type: site unspecified Is this a current diagnosis for this admission?: Yes (5) Abnormal electrocardiogram Is this a current diagnosis for this admission?: Yes (6) Paroxysmal atrial tachycardia Is this a current diagnosis for this admission?: Yes - Notes Notes: Shortness of breath: This is due to multitudes of factors including CHF, COPD, acute bronchitis. Patient being treated for all these 3 conditions. Patient has been advised to reduce salt and fluid intake. Diuretic dose was optimized. Will continue to follow. Elevated troponin I: Patient has declined to pursue a stress test. Medical management is being pursued for presumed underlying CAD. Febrile illness: Possibly related to UTI, possible bronchitis. This is improved. Paroxysmal atrial tachycardia: No recurrence. History of atrial fibrillation: Patient to continue with chronic anticoagulation. Will follow patient tomorrow and if patient remains stable will consider signing off. - Time Time with patient: 15-25 minutes - CODE STATUS : was discussed, patient remains DO NOT RESUSCITATE. Surrogate decision-maker unchanged. Multiple medical problems were addressed. Medications reviewed and adjusted accordingly: Yes
[2016-10-23] MEDS: INSULIN LISPRO 100 UNIT/ML 3 ML VIAL SUBCUT PRN ×5 (00:53→22:45)
[2016-10-23] MEDS: IMIPENEM/CILASTATIN SODIUM 500 MG in NORMAL SALINE 100 ML IV SCH ×4 (02:46→22:44)
[2016-10-23] MEDS: BENZONATATE 100 MG CAPSULE PO SCH ×3 (04:20→17:25)
[2016-10-23] MEDS: HYDROCODONE/ACETAMINOPHEN 5-325 MG TABLET PO PRN ×3 (05:32→22:45)
[2016-10-23] MEDS: BUDESONIDE NEB 0.5 MG/2 ML AMPUL NEB SCH ×2 (08:00→19:36)
[2016-10-23] MEDS: IPRATROPIUM/ALBUTEROL 0.5-2.5 MG/3 ML AMPUL NEB PRN ×3 (08:00→19:36)
[2016-10-23] MEDS: LANSOPRAZOLE 15 MG TAB.RAP.DR PO SCH (08:04)
[2016-10-23] MEDS: INSULIN DETEMIR 100 UNIT/ML 3 ML PEN SUBCUT SCH (12:03)
[2016-10-23] MEDS: RANOLAZINE 500 MG TAB.SR.12H PO SCH ×2 (12:05→22:45)
[2016-10-23] MEDS: TIOTROPIUM BROMIDE DPI 5 CAP/KIT (18 MCG/CAP) IH SCH (12:05)
[2016-10-23] MEDS: DULOXETINE HCL 30 MG CAPSULE.DR PO SCH (12:06)
[2016-10-23] MEDS: POTASSIUM CHLORIDE 10 MEQ TABLET.SA PO SCH (12:07)
[2016-10-23] MEDS: METOPROLOL SUCCINATE 25 MG TAB.SR.24H PO SCH ×2 (12:07→22:45)
[2016-10-23] MEDS: FUROSEMIDE 40 MG TABLET PO SCH ×2 (12:07→17:25)
[2016-10-23] MEDS: CETIRIZINE 10 MG TABLET PO SCH (12:07)
[2016-10-23] MEDS: APIXABAN 5 MG TABLET PO SCH (12:08)
[2016-10-23] MEDS: DIGOXIN 0.125 MG TABLET PO SCH (12:09)
[2016-10-23] MEDS: BUSPIRONE HCL 10 MG TABLET PO SCH ×2 (12:09→17:25)
[2016-10-23] MEDS: PREGABALIN 100 MG CAPSULE PO SCH ×2 (12:09→22:46)
[2016-10-23] MEDS: ASPIRIN 81 MG TABLET, ENT COATED PO SCH (12:10)
[2016-10-23] MEDS: PREDNISONE 20 MG TABLET PO SCH ×2 (12:10→17:24)
--- NOTE | 2016-10-23 14:09 | PDOC PROGRESS REPORT ---
Subjective Progress Note for:: 10/23/16 Subjective:: Complains of pain in her hip. Physical Exam Vital Signs: Temp Pulse Resp BP Pulse Ox 98.2 F 78 18 177/64 H 97 10/23/16 12:01 10/23/16 13:51 10/23/16 13:51 10/23/16 12:01 10/23/16 13:51 Intake & Output 10/22/16 10/23/16 10/24/16 06:59 06:59 06:59 Intake Total 1106 1995 360 Output Total 700 150 Balance 406 1845 360 Weight 104 kg 97.2 kg General appearance: PRESENT: no acute distress Eye exam: PRESENT: conjunctiva pink. ABSENT: scleral icterus Mouth exam: PRESENT: moist, tongue midline Neck exam: ABSENT: carotid bruit, JVD, lymphadenopathy, thyromegaly Respiratory exam: PRESENT: wheezes - Scattered respiratory wheezes. ABSENT: rales, rhonchi Cardiovascular exam: PRESENT: RRR. ABSENT: diastolic murmur, rubs, systolic murmur GI/Abdominal exam: PRESENT: normal bowel sounds, soft. ABSENT: distended, guarding, mass, organolmegaly, rebound, tenderness Extremities exam: ABSENT: calf tenderness, clubbing, pedal edema Neurological exam: PRESENT: alert, awake, oriented to person, oriented to place , oriented to time, oriented to situation, CN II-XII grossly intact. ABSENT: motor sensory deficit Psychiatric exam: PRESENT: anxious Skin exam: PRESENT: dry, intact, warm. ABSENT: cyanosis, rash Results Laboratory Results: 10/21/16 03:35 10/20/16 06:26 10/18/16 21:00 Blood Blood Culture - Final Escherichia Coli Esbl 10/22/16 03:30 NT-Pro-B Natriuret Pep 5570 H Impressions: Chest X-Ray 10/22/16 00:00 IMPRESSION: No acute cardiopulmonary findings. Interventional Vascular Procedure 10/23/16 00:00 IMPRESSION: SUCCESSFUL PLACEMENT OF A 5 FR DUAL LUMEN 43 CM PICC IN THE left basilic VEIN. PICC Line Insertion 10/23/16 08:00 IMPRESSION: SUCCESSFUL PLACEMENT OF A 5 FR DUAL LUMEN 43 CM PICC IN THE left basilic VEIN. Assessment & Plan - Diagnosis (1) Sepsis Qualifiers: Sepsis type: sepsis due to unspecified organism Qualified Code(s): A41.9 - Sepsis, unspecified organism Is this a current diagnosis for this admission?: YesPlan: The patient has had positive blood cultures. The source is felt to be the Port- A-Cath. This has been removed and she has a PICC line in place now. (2) Elevated troponin Is this a current diagnosis for this admission?: Yes (3) COPD exacerbation Is this a current diagnosis for this admission?: YesPlan: Patient is currently on prednisone and nebulizers when necessary. (4) UTI (urinary tract infection) Qualifiers: Urinary tract infection type: site unspecified Is this a current diagnosis for this admission?: YesPlan: Patient is growing out Escherichia coli and Proteus. Continue imipenem. (5) Chronic respiratory failure with hypoxia Is this a current diagnosis for this admission?: YesPlan: Secondary to COPD. (6) COPD (chronic obstructive pulmonary disease) Qualifiers: COPD type: unspecified COPD Qualified Code(s): J44.9 - Chronic obstructive pulmonary disease, unspecified Is this a current diagnosis for this admission?: YesPlan: Continue with steroids and nebulizers. (7) Diabetes mellitus type II, controlled Qualifiers: Diabetes mellitus complication status: without complication Diabetes mellitus nursing home insulin use: without nursing home use Qualified Code(s): E11.9 - Type 2 diabetes mellitus without complications Is this a current diagnosis for this admission?: YesPlan: Continue with Levemir and sliding scale insulin. (8) Thrombocytopenia Is this a current diagnosis for this admission?: YesPlan: Most likely secondary to her underlying illness. Patient has seen oncology in the past and requests to see Dr. Choi (9) Adrenal insufficiency Is this a current diagnosis for this admission?: YesPlan: Patient is on steroids orally. (10) Chronic kidney disease Qualifiers: Chronic kidney disease stage: stage 3 (moderate) Qualified Code(s): N18.3 - Chronic kidney disease, stage 3 (moderate) Is this a current diagnosis for this admission?: YesPlan: Patient's creatinine has normalized. (11) Diastolic dysfunction Is this a current diagnosis for this admission?: YesPlan: Patient is euvolemic currently. (12) Major depression Qualifiers: Major depression recurrence: recurrent Active/Remission status: remission status unspecified Qualified Code(s): F33.9 - Major depressive disorder, recurrent, unspecified Is this a current diagnosis for this admission?: Yes (13) Morbid obesity with BMI of 40.0-44.9, adult Is this a current diagnosis for this admission?: Yes (14) A-fib Qualifiers: Atrial fibrillation type: paroxysmal Qualified Code(s): I48.0 - Paroxysmal atrial fibrillation Is this a current diagnosis for this admission?: Yes (15) Anemia, chronic disease Is this a current diagnosis for this admission?: Yes (16) Chronic pain syndrome Is this a current diagnosis for this admission?: YesPlan: Patient requests to be restarted on her fentanyl patch. We will try tramadol first see if that will control her pain with nonnarcotics. (17) Do not resuscitate Is this a current diagnosis for this admission?: Yes (18) Hypertension Qualifiers: Hypertension type: essential hypertension Qualified Code(s): I10 - Essential (primary) hypertension Is this a current diagnosis for this admission?: YesPlan: Continue with metoprolol. (19) Obstructive sleep apnea Is this a current diagnosis for this admission?: Yes - Time Time Spent with patient: 25-34 minutes - Inpatient Certification Medical Necessity: Need Close Monitoring Due to Risk of Patient Decompensation
--- NOTE | 2016-10-23 18:26 | PDOC CONSULTATION ---
Consultation Consult Date: 10/23/16 Attending physician:: LEW MCCRARY Consult reason:: Thrombocytopenia History of Present Illness Admission Date/PCP: 10/18/16 07:57 MUSA HODGSON MD Patient complains of: Thrombocytopenia History of Present Illness: 71-year-old female that I have seen in the past who is a chronic longterm patient, I have seen her in the past for iron deficiency anemia and have given her IV iron. On this visit she presented with recurrent UTI, was also found to be septic with positive blood cultures, she had Escherichia coli, ESBL. Upon admission she was found to be thrombocytopenic with a platelet count of 113 and it has gone down to 85. She did have a lower platelet count in August as well but had a normal platelet count in August. In August, she presented again with UTI at that time. Her hemoglobin has been 10-11, white count has been elevated. Past Medical History Cardiac Medical History: Reports: Atrial Fibrillation, Congestive Heart Failure - Diastolic dysfunction, Myocardial Infarction, Hypertension - essential, Pulmonary Embolism, Heart Murmur Denies: Coronary Artery Disease, DVT, Hyperlipidema, Peripheral Vascular Disease Pulmonary Medical History: Reports: Asthma, Bronchitis, Chronic Obstructive Pulmonary Disease (COPD), Pneumonia - Recurrent MRSA pneumonia., Sleep Apnea - Uses C Pap Denies: Tuberculosis Neurological Medical History: Denies: Seizures Endocrine Medical History: Reports: Diabetes Mellitus Type 2 Denies: Diabetes Mellitus Type 1, Hyperthyroidism, Hypothyroidism GI Medical History: Reports: Gastroesophageal Reflux Disease, Hiatal Hernia Denies: Cirrhosis, Hepatitis Musculoskeltal Medical History: Reports: Arthritis, Fibromyalgia, Gout Skin Medical History: Denies: Eczema, Psoriasis Psychiatric Medical History: Reports: Depression Hematology: Reports: Anemia Infectious Medical History: Reports: Methicillin-Resistant Staph Aureus Past Surgical History Past Surgical History: Reports: Appendectomy, Cholecystectomy, Hysterectomy, Orthopedic Surgery - Multiple left hip procedures, 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 Social History Lives with: Jail Smoking Status: Never Smoker Frequency of Alcohol Use: None Hx Recreational Drug Use: No Drugs: None Hx Prescription Drug Abuse: No - Advance Directive Resuscitation Status: Do Not Resuscitate - Per emergency room nurse practitioner , patient desires DO NOT RESUSCITATE status. Family History Family History: Arthritis, CAD, CVA, DM, Hypertension Parental Family History Reviewed: Yes Children Family History Reviewed: Yes Sibling(s) Family History Reviewed.: Yes Medication/Allergy Home Medications: Duloxetine HCl [Cymbalta] 90 mg PO DAILY 01/05/16 Albuterol Sulfate [Ventolin 0.083% Neb 2.5 mg/3 mL Ampul] 2.5 mg NEB Q2HP PRN Omeprazole Magnesium [Prilosec Otc] 20 mg PO QAM 06/10/16 Guaifenesin [Mucinex Sr 600 mg Tablet.sa] 1,200 mg PO Q12 tablet.sa 06/15/16 Acetaminophen [Tylenol 325 mg Tablet] 650 mg PO Q4HP PRN 07/12/16 Apixaban [Eliquis 5 mg Tablet] 5 mg PO DAILY 10/18/16 Budesonide [Pulmicort Neb 0.5 mg/2 ml Ampul] 0.5 mg NEB Q4H 10/18/16 Buspirone HCl [Buspar 5 mg Tablet] 5 mg PO BID 10/18/16 Dextromethorphan HBr [Delsym] 10 ml PO Q12HP PRN 10/18/16 Dextrose 50 % in Water [Dextrose 50%-Water Vial] 50 ml IV PRN PRN 10/18/16 Digoxin [Lanoxin 0.25 mg Tablet] 0.25 mg PO DAILY 10/18/16 Diltiazem HCl [Cardizem 60 mg Tablet] 60 mg PO Q6 10/18/16 Diphenhydramine HCl [Benadryl] 25 mg PO Q6HP PRN 10/18/16 Dronabinol [Marinol 2.5 mg Capsule] 2.5 mg PO BID 10/18/16 Famotidine [Pepcid 20 mg Tablet] 20 mg PO BID 10/18/16 Fentanyl [Duragesic 25 mcg/hr Transdermal Patch] 1 patch TOP Q3D 10/18/16 Glucagon,Human Recombinant [Glucagon Emergency Kit] 1 mg SQ PRN PRN 10/18/16 Heparin Sodium,Porcine/Pf [Heparin 1,000 Unit/10 (100/ml)] 3 ml IV Q12 10/18/16 Hydrocodone/Acetaminophen [[place] 5-325 mg Tablet] 1 tab PO Q4HP PRN 10/18/16 Insulin Aspart [Novolog Insulin (Aspart) 100 unit/mL] See Protocol SQ ACHS 10/18 Insulin Detemir [Levemir Flextouch] 30 units SQ DAILY 10/18/16 Ipratropium Kiln [Atrovent 0.02% Neb 0.5 mg/2.5 ml Ampul] 1 vial NEB Q4H Lactulose [Cephulac Syrup 20 gm/30 ml Udcup] 30 ml PO BID 10/18/16 Levalbuterol HCl [Xopenex Concentrate] 1 vial NEB Q4 10/18/16 Linaclotide [Linzess 145 Mcg Capsule] 145 mcg PO QAM 10/18/16 Metoclopramide HCl [Reglan] 5 mg PO MEALS 10/18/16 Nitroglycerin [Nitrostat] 0.4 mg SL Q5M 10/18/16 Prednisone [Deltasone 20 mg Tablet] 20 mg PO BID 10/18/16 Pregabalin [Lyrica 100 mg Capsule] 100 mg PO BID 10/18/16 Promethazine HCl [Phenergan 25 mg Tablet] 25 mg PO Q6HP PRN 10/18/16 Furosemide [Lasix] 40 mg PO DAILY 10/19/16 Allergies/Adverse Reactions: Sulfa (Sulfonamide Antibiotics) Allergy (Intermediate, Verified 07/29/16 21:27) adhesive tape Allergy (Verified 07/29/16 21:27) atorvastatin calcium [From Lipitor] Allergy (Verified 07/29/16 21:27) celecoxib [From Celebrex] Allergy (Verified 07/29/16 21:27) Physical Exam Vital Signs: Temp Pulse Resp BP Pulse Ox 98.4 F 81 18 140/46 H 98 10/23/16 15:34 10/23/16 15:34 10/23/16 15:34 10/23/16 15:34 10/23/16 15:34 Intake & Output 10/22/16 10/23/16 10/24/16 06:59 06:59 06:59 Intake Total 1106 1995 360 Output Total 700 150 Balance 406 1845 360 Weight 104 kg 97.2 kg General appearance: PRESENT: no acute distress, well-developed, well-nourished Head exam: PRESENT: atraumatic, normocephalic Eye exam: PRESENT: conjunctiva pink, EOMI, PERRLA. ABSENT: scleral icterus Ear exam: PRESENT: normal external ear exam Mouth exam: PRESENT: moist, tongue midline Neck exam: ABSENT: carotid bruit, JVD, lymphadenopathy, thyromegaly Respiratory exam: PRESENT: clear to auscultation elia. ABSENT: rales, rhonchi, wheezes Cardiovascular exam: PRESENT: RRR. ABSENT: diastolic murmur, rubs, systolic murmur Pulses: PRESENT: normal dorsalis pedis pul Vascular exam: PRESENT: normal capillary refill GI/Abdominal exam: PRESENT: normal bowel sounds, soft. ABSENT: distended, guarding, mass, organolmegaly, rebound, tenderness Rectal exam: PRESENT: deferred Extremities exam: PRESENT: full ROM. ABSENT: calf tenderness, clubbing, pedal edema Neurological exam: PRESENT: alert, awake, oriented to person, oriented to place , oriented to time, oriented to situation, CN II-XII grossly intact. ABSENT: motor sensory deficit Psychiatric exam: PRESENT: appropriate affect, normal mood. ABSENT: homicidal ideation, suicidal ideation Skin exam: PRESENT: dry, intact, warm. ABSENT: cyanosis, rash Results Laboratory Results: 10/21/16 03:35 10/20/16 06:26 10/18/16 21:00 Blood Blood Culture - Final Escherichia Coli Esbl 10/22/16 03:30 NT-Pro-B Natriuret Pep 5570 H Impressions: Chest X-Ray 10/22/16 00:00 IMPRESSION: No acute cardiopulmonary findings. Interventional Vascular Procedure 10/23/16 00:00 IMPRESSION: SUCCESSFUL PLACEMENT OF A 5 FR DUAL LUMEN 43 CM PICC IN THE left basilic VEIN. PICC Line Insertion 10/23/16 08:00 IMPRESSION: SUCCESSFUL PLACEMENT OF A 5 FR DUAL LUMEN 43 CM PICC IN THE left basilic VEIN. Assessment & Plan - Diagnosis (1) Thrombocytopenia Is this a current diagnosis for this admission?: YesPlan: Likely thrombocytopenia from myelosuppression from the sepsis and UTI, she may have a small element of DIC as well. Regardless, she is on appropriate antibiotics and this should resolve as the sepsis and UTI improves. However could take 1-2 weeks to rebound fully. But I do expect it to rebound fully. We will monitor while in house. (2) Anemia Qualifiers: Anemia type: iron deficiency Iron deficiency anemia type: other iron deficiency Qualified Code(s): D50.8 - Other iron deficiency anemias Is this a current diagnosis for this admission?: YesPlan: Previous history of iron deficiency anemia, she asked me whether she did get more IV iron right now, given the fact she is acutely infected I would recommend against it. We can test her as an outpatient and treat accordingly. - Time Time Spent: 50 to 70 Minutes Critical Time spent with patient: 25-34 minutes - Inpatient Certification Based on my medical assessment, after consideration of the patient's comorbidities, presenting symptoms, or acuity I expect that the services needed warrant INPATIENT care.: Yes I certify that my determination is in accordance with my understanding of Medicare's requirements for reasonable and necessary INPATIENT services [42 CFR 412.3e].: Yes Medical Necessity: Need for IV Antibiotics
--- NOTE | 2016-10-23 19:36 | PDOC PROGRESS REPORT ---
Subjective Progress Note for:: 10/23/16 Subjective:: Patient was noted to have a infected Port-A-Cath which was removed yesterday. Today she is undergoing a PICC line placement. Patient was noted to have positive blood cultures. Cardiac-espinosa, Patient seems to be doing better today with less wheezing and shortness of breath. Pt is denying any chest arm or neck discomfort. Patient denying any PND, orthopnea. Patient denied any sustained palpitations, dizziness, syncope, near syncope. Patient denying any fever chills. Patient denying any other significant discomfort. Patient does describe generalized weakness. Patient was placed on increased Lasix dose yesterday. Chest x-ray shows cardiomegaly with mild pulmonary venous congestion. This was ordered and reviewed today. Twelve-lead EKG showed sinus rhythm with APCs and some ST-T wave changes. BNP level came back elevated. Patient was placed on increased dose of diuretics. Patient is maintaining sinus rhythm. Will bleed EKG from today reviewed. It showed sinus rhythm with frequent APCs but otherwise unchanged. Medications: Medications have been reviewed. Physical Exam Vital Signs: Temp Pulse Resp BP Pulse Ox 98.4 F 81 18 140/46 H 98 10/23/16 15:34 10/23/16 15:34 10/23/16 15:34 10/23/16 15:34 10/23/16 15:34 Intake & Output 10/22/16 10/23/16 10/24/16 06:59 06:59 06:59 Intake Total 1106 1995 600 Output Total 700 150 Balance 406 1845 600 Weight 104 kg 97.2 kg Exam: GENERAL: well-nourished and in no acute distress. Alert and oriented x3 HEAD: Atraumatic, normocephalic. EYES: Pupils equal round and reactive to light, extraocular movements intact, sclera anicteric, conjunctiva are normal. ENT: TMs normal, nares patent, oropharynx clear without exudates. Moist mucous membranes. No oral ulcerations or bleeding gums noted NECK: supple without lymphadenopathy. Trachea is central. No cervical or axillary lymphadenopathy noted. Carotids are 2+, JVD WNL LUNGS: Respiration seems nonlabored, no significant accessory muscle action noted. Breath sounds clear to auscultation bilaterally and equal noted. No wheezes rales or rhonchi noted. No significant dullness noted on percussion. CHEST: Palpation of the chest wall shows no significant chest wall tenderness. No other significant abnormalities noted. 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 ABDOMEN: Soft, no significant tenderness appreciated, normoactive bowel sounds. No guarding, no rebound. No rigidity noted . No masses appreciated. EXTREMITIES: Pedal pulses are 1-2+, no calf tenderness noted. No clubbing or cyanosis.trace to 1+ pedal edema noted NEUROLOGICAL: Focused neurological exam showed no significant neurologic deficit. Normal speech, bilateral lower extremity weakness reported by the patient. PSYCH: Normal mood, normal affect. Judgment and insight within normal limits. SKIN: No significant ecchymosis, rash, ulcerations or signs of pruritus noted. MUSCULOSKELETAL EXAM: No significant joint swelling noted. Results Laboratory Results: 10/21/16 03:35 10/20/16 06:26 10/18/16 21:00 Blood Blood Culture - Final Escherichia Coli Esbl 10/22/16 03:30 NT-Pro-B Natriuret Pep 5570 H Impressions: Chest X-Ray 10/22/16 00:00 IMPRESSION: No acute cardiopulmonary findings. Interventional Vascular Procedure 10/23/16 00:00 IMPRESSION: SUCCESSFUL PLACEMENT OF A 5 FR DUAL LUMEN 43 CM PICC IN THE left basilic VEIN. PICC Line Insertion 10/23/16 08:00 IMPRESSION: SUCCESSFUL PLACEMENT OF A 5 FR DUAL LUMEN 43 CM PICC IN THE left basilic VEIN. Assessment & Plan - Diagnosis (1) Shortness of breath Is this a current diagnosis for this admission?: Yes (2) Elevated troponin Is this a current diagnosis for this admission?: Yes (3) Fever Qualifiers: Fever type: unspecified Qualified Code(s): R50.9 - Fever, unspecified Is this a current diagnosis for this admission?: Yes (4) UTI (urinary tract infection) Qualifiers: Urinary tract infection type: site unspecified Is this a current diagnosis for this admission?: Yes (5) Abnormal electrocardiogram Is this a current diagnosis for this admission?: Yes (6) Paroxysmal atrial tachycardia Is this a current diagnosis for this admission?: Yes - Notes Notes: Shortness of breath: This is due to multitudes of factors including CHF, COPD, acute bronchitis. Patient being treated for all these 3 conditions. Patient has been advised to reduce salt and fluid intake. Diuretic dose was optimized. Patient informed about salt and fluid restriction. Patient given my card and she could follow-up with me if she chooses.. Elevated troponin I: This is felt to be related to sepsis. Patient now has positive blood cultures. Patient has declined to pursue a stress test. Medical management is being pursued for presumed underlying CAD. Febrile illness: Possibly related to UTI, possible bronchitis. This is improved. Most likely related to urosepsis. Paroxysmal atrial tachycardia: No recurrence. History of atrial fibrillation: Patient to continue with chronic anticoagulation. Patient has remained stable from cardiac standpoint. Please reconsult if needed. Will sign off. Cardiac evaluations during this hospitalization reviewed with the patient. - Time Time with patient: 15-25 minutes - CODE STATUS : was discussed, patient remains DO NOT RESUSCITATE. Surrogate decision-maker unchanged. Multiple medical problems were addressed. Surrogate decision-maker unchanged. Multiple medical problems were addressed.More than 50% of the time spent coordinating care, discussing management plans with involved caregivers. Management plans discussed with involved personnels. Medical decision making was of moderate complexity, patient's has multiple severe comorbidities.
[2016-10-24] MEDS: BENZONATATE 100 MG CAPSULE PO SCH ×3 (02:59→18:39)
[2016-10-24] MEDS: IMIPENEM/CILASTATIN SODIUM 500 MG in NORMAL SALINE 100 ML IV SCH ×4 (03:57→21:55)
[2016-10-24 05:23] LABS: HEMATOCRIT 37.9 % (36.0-47.0); HEMOGLOBIN 12.7 g/dL (12.0-15.5); HGB HCT DIFFERENCE 0.2; MEAN CORPUSCULAR HEMOGLOBIN 29.4 pg (27.0-33.4); MEAN CORPUSCULAR HGB CONC 33.5 g/dL (32.0-36.0); MEAN CORPUSCULAR VOLUME 88 fl (80-97); RED BLOOD COUNT 4.31 10^6/uL (3.72-5.28); RED CELL DISTRIBUTION WIDTH 15.4 % (11.5-14.0); WHITE BLOOD COUNT 9.6 10^3/uL (4.0-10.5)
[2016-10-24 05:40] LABS: ANION GAP 12 (5-19); BLOOD UREA NITROGEN 42 mg/dL (7-20); CALCIUM 9.6 mg/dL (8.4-10.2); CARBON DIOXIDE 37 mmol/L (22-30); CHLORIDE 91 mmol/L (98-107); CREATININE RESULT 0.94 mg/dL (0.52-1.25); GLUCOSE 201 mg/dL (75-110); POTASSIUM 4.4 mmol/L (3.6-5.0); SODIUM 139.7 mmol/L (137-145)
[2016-10-24 06:06] LABS: ANISOCYTOSIS SLIGHT; BAND NEUTROPHILS % (MANUAL) 1 % (3-5); BASOPHILS % (MANUAL) 0 % (0-2); EOSINOPHILS % (MANUAL) 0 % (0-6); LYMPHOCYTES % (MANUAL) 10 % (13-45); POIKILOCYTOSIS SLIGHT; POLYCHROMASIA SLIGHT; TOTAL CELLS COUNTED 100; TOXIC GRANULATION SLIGHT
[2016-10-24 06:07] LABS: OVALOCYTES SLIGHT; TEAR DROP CELLS SLIGHT
--- NOTE | 2016-10-24 07:43 | EKG REPORT ---
SEVERITY:- ABNORMAL ECG - SINUS RHYTHM ATRIAL PREMATURE COMPLEX LVH WITH IVCD, LAD AND SECONDARY REPOL ABNRM : Confirmed by: uJng Olvera 24-Oct-2016 07:43:25
[2016-10-24] MEDS: INSULIN LISPRO 100 UNIT/ML 3 ML VIAL SUBCUT PRN ×3 (08:31→23:40)
[2016-10-24] MEDS: LANSOPRAZOLE 15 MG TAB.RAP.DR PO SCH (08:32)
--- NOTE | 2016-10-24 08:36 | PDOC PROGRESS REPORT ---
Subjective Progress Note for:: 10/24/16 Subjective:: No acute events overnight Physical Exam Vital Signs: Temp Pulse Resp BP Pulse Ox 98.2 F 79 19 105/69 97 10/24/16 08:17 10/24/16 08:17 10/24/16 08:17 10/24/16 08:17 10/24/16 08:17 Intake & Output 10/23/16 10/24/16 10/25/16 06:59 06:59 06:59 Intake Total 1994 152 Output Total 150 Balance 1845 1520 Weight 97.2 kg 98.9 kg General appearance: PRESENT: no acute distress, well-developed, well-nourished Head exam: PRESENT: atraumatic, normocephalic Eye exam: PRESENT: conjunctiva pink, EOMI, PERRLA. ABSENT: scleral icterus Ear exam: PRESENT: normal external ear exam Mouth exam: PRESENT: moist, tongue midline Neck exam: ABSENT: carotid bruit, JVD, lymphadenopathy, thyromegaly Respiratory exam: PRESENT: clear to auscultation elia. ABSENT: rales, rhonchi, wheezes Cardiovascular exam: PRESENT: RRR. ABSENT: diastolic murmur, rubs, systolic murmur Pulses: PRESENT: normal dorsalis pedis pul Vascular exam: PRESENT: normal capillary refill GI/Abdominal exam: PRESENT: normal bowel sounds, soft. ABSENT: distended, guarding, mass, organolmegaly, rebound, tenderness Rectal exam: PRESENT: deferred Extremities exam: PRESENT: full ROM. ABSENT: calf tenderness, clubbing, pedal edema Neurological exam: PRESENT: alert, awake, oriented to person, oriented to place , oriented to time, oriented to situation, CN II-XII grossly intact. ABSENT: motor sensory deficit Psychiatric exam: PRESENT: appropriate affect, normal mood. ABSENT: homicidal ideation, suicidal ideation Skin exam: PRESENT: dry, intact, warm. ABSENT: cyanosis, rash Results Laboratory Results: 10/24/16 05:03 10/24/16 05:03 10/24/16 10/24/16 05:03 05:03 WBC 9.6 RBC 4.31 Hgb 12.7 Hct 37.9 MCV 88 MCH 29.4 MCHC 33.5 RDW 15.4 H Plt Count 259 Seg Neutrophils % Not Reportable Lymphocytes % Not Reportable Monocytes % Not Reportable Eosinophils % Not Reportable Basophils % Not Reportable Absolute Neutrophils Not Reportable Absolute Lymphocytes Not Reportable Absolute Monocytes Not Reportable Absolute Eosinophils Not Reportable Absolute Basophils Not Reportable Sodium 139.7 Potassium 4.4 Chloride 91 L Carbon Dioxide 37 H Anion Gap 12 BUN 42 H Creatinine 0.94 Est GFR ( Amer) > 60 Est GFR (Non-Af Amer) 58 L Glucose 201 H Calcium 9.6 10/18/16 21:00 Blood Blood Culture - Final Escherichia Coli Esbl 10/22/16 03:30 NT-Pro-B Natriuret Pep 5570 H Impressions: Chest X-Ray 10/22/16 00:00 IMPRESSION: No acute cardiopulmonary findings. Interventional Vascular Procedure 10/23/16 00:00 IMPRESSION: SUCCESSFUL PLACEMENT OF A 5 FR DUAL LUMEN 43 CM PICC IN THE left basilic VEIN. PICC Line Insertion 10/23/16 08:00 IMPRESSION: SUCCESSFUL PLACEMENT OF A 5 FR DUAL LUMEN 43 CM PICC IN THE left basilic VEIN. Assessment & Plan - Diagnosis (1) Thrombocytopenia Is this a current diagnosis for this admission?: YesPlan: Resolved, secondary to myelosuppression, platelets are normal now, reassured patient, spent about 20 minutes talking with patient today. (2) Anemia Qualifiers: Anemia type: iron deficiency Iron deficiency anemia type: other iron deficiency Qualified Code(s): D50.8 - Other iron deficiency anemias Is this a current diagnosis for this admission?: YesPlan: Hb stable, continue to monitor - Time Time Spent with patient: 15-24 minutes Critical Time spent with patient: 15-24 minutes
[2016-10-24] MEDS: BUDESONIDE NEB 0.5 MG/2 ML AMPUL NEB SCH ×2 (08:50→19:30)
[2016-10-24] MEDS: IPRATROPIUM/ALBUTEROL 0.5-2.5 MG/3 ML AMPUL NEB PRN ×2 (08:50→19:29)
[2016-10-24] MEDS: INSULIN DETEMIR 100 UNIT/ML 3 ML PEN SUBCUT SCH (09:42)
[2016-10-24] MEDS: APIXABAN 5 MG TABLET PO SCH (09:44)
[2016-10-24] MEDS: METOPROLOL SUCCINATE 25 MG TAB.SR.24H PO SCH ×2 (09:44→22:59)
[2016-10-24] MEDS: TIOTROPIUM BROMIDE DPI 5 CAP/KIT (18 MCG/CAP) IH SCH (09:45)
[2016-10-24] MEDS: BUSPIRONE HCL 10 MG TABLET PO SCH ×2 (09:46→18:40)
[2016-10-24] MEDS: PREGABALIN 100 MG CAPSULE PO SCH ×2 (09:47→23:07)
[2016-10-24] MEDS: DULOXETINE HCL 30 MG CAPSULE.DR PO SCH (09:47)
[2016-10-24] MEDS: DIGOXIN 0.125 MG TABLET PO SCH (09:47)
[2016-10-24] MEDS: CETIRIZINE 10 MG TABLET PO SCH (09:48)
[2016-10-24] MEDS: ASPIRIN 81 MG TABLET, ENT COATED PO SCH (09:49)
[2016-10-24] MEDS: POTASSIUM CHLORIDE 10 MEQ TABLET.SA PO SCH (09:49)
[2016-10-24] MEDS: PREDNISONE 20 MG TABLET PO SCH ×2 (09:50→18:40)
[2016-10-24] MEDS: FUROSEMIDE 40 MG TABLET PO SCH ×2 (09:50→18:40)
[2016-10-24] MEDS: RANOLAZINE 500 MG TAB.SR.12H PO SCH ×2 (09:51→23:00)
[2016-10-24] MEDS: TRAMADOL HCL 50 MG TABLET PO PRN ×3 (10:02→23:40)
--- NOTE | 2016-10-24 12:08 | PDOC PROGRESS REPORT ---
Subjective Progress Note for:: 10/24/16 Subjective:: Reports that her pain is better with tramadol. Physical Exam Vital Signs: Temp Pulse Resp BP Pulse Ox 98.2 F 78 18 105/69 97 10/24/16 08:17 10/24/16 08:50 10/24/16 08:50 10/24/16 08:17 10/24/16 08:17 Intake & Output 10/23/16 10/24/16 10/25/16 06:59 06:59 06:59 Intake Total 1994 1520 Output Total 150 Balance 1845 1520 Weight 97.2 kg 98.9 kg General appearance: PRESENT: no acute distress Eye exam: PRESENT: conjunctiva pink. ABSENT: scleral icterus Mouth exam: PRESENT: moist, tongue midline Neck exam: ABSENT: JVD Respiratory exam: PRESENT: clear to auscultation elia. ABSENT: rales, rhonchi, wheezes Cardiovascular exam: PRESENT: RRR. ABSENT: diastolic murmur, rubs, systolic murmur GI/Abdominal exam: PRESENT: normal bowel sounds, soft. ABSENT: distended, guarding, mass, organolmegaly, rebound, tenderness Extremities exam: ABSENT: calf tenderness, clubbing, pedal edema Neurological exam: PRESENT: alert, awake, oriented to person, oriented to place , oriented to time, oriented to situation, CN II-XII grossly intact. ABSENT: motor sensory deficit Psychiatric exam: PRESENT: appropriate affect Results Laboratory Results: 10/24/16 05:03 10/24/16 05:03 10/24/16 10/24/16 05:03 05:03 WBC 9.6 RBC 4.31 Hgb 12.7 Hct 37.9 MCV 88 MCH 29.4 MCHC 33.5 RDW 15.4 H Plt Count 259 Seg Neutrophils % Not Reportable Lymphocytes % Not Reportable Monocytes % Not Reportable Eosinophils % Not Reportable Basophils % Not Reportable Absolute Neutrophils Not Reportable Absolute Lymphocytes Not Reportable Absolute Monocytes Not Reportable Absolute Eosinophils Not Reportable Absolute Basophils Not Reportable Sodium 139.7 Potassium 4.4 Chloride 91 L Carbon Dioxide 37 H Anion Gap 12 BUN 42 H Creatinine 0.94 Est GFR ( Amer) > 60 Est GFR (Non-Af Amer) 58 L Glucose 201 H Calcium 9.6 10/18/16 21:00 Blood Blood Culture - Final Escherichia Coli Esbl 10/22/16 03:30 NT-Pro-B Natriuret Pep 5570 H Impressions: Chest X-Ray 10/22/16 00:00 IMPRESSION: No acute cardiopulmonary findings. Interventional Vascular Procedure 10/23/16 00:00 IMPRESSION: SUCCESSFUL PLACEMENT OF A 5 FR DUAL LUMEN 43 CM PICC IN THE left basilic VEIN. PICC Line Insertion 10/23/16 08:00 IMPRESSION: SUCCESSFUL PLACEMENT OF A 5 FR DUAL LUMEN 43 CM PICC IN THE left basilic VEIN. Assessment & Plan - Diagnosis (1) Sepsis Qualifiers: Sepsis type: sepsis due to unspecified organism Qualified Code(s): A41.9 - Sepsis, unspecified organism Is this a current diagnosis for this admission?: YesPlan: The patient has had positive blood cultures. The source is felt to be the Port- A-Cath. This has been removed and she has a PICC line in place now. Blood cultures done on the are negative up to date. If they remain negative by tomorrow we can hopefully discharge home on IV antibiotics for total of 14 days of imipenem. (2) Elevated troponin Is this a current diagnosis for this admission?: Yes (3) COPD exacerbation Is this a current diagnosis for this admission?: YesPlan: Patient is currently on prednisone and nebulizers when necessary. (4) UTI (urinary tract infection) Qualifiers: Urinary tract infection type: site unspecified Is this a current diagnosis for this admission?: YesPlan: Patient is growing out Escherichia coli and Proteus. Continue imipenem. (5) Chronic respiratory failure with hypoxia Is this a current diagnosis for this admission?: YesPlan: Secondary to COPD. (6) COPD (chronic obstructive pulmonary disease) Qualifiers: COPD type: unspecified COPD Qualified Code(s): J44.9 - Chronic obstructive pulmonary disease, unspecified Is this a current diagnosis for this admission?: YesPlan: Continue with steroids and nebulizers. (7) Diabetes mellitus type II, controlled Qualifiers: Diabetes mellitus complication status: without complication Diabetes mellitus fci insulin use: without fci use Qualified Code(s): E11.9 - Type 2 diabetes mellitus without complications Is this a current diagnosis for this admission?: YesPlan: Continue with Levemir and sliding scale insulin. (8) Thrombocytopenia Is this a current diagnosis for this admission?: YesPlan: Most likely secondary to her underlying illness. It has resolved. Patient has seen Dr. Choi (9) Adrenal insufficiency Is this a current diagnosis for this admission?: YesPlan: Patient is on steroids orally. (10) Chronic kidney disease Qualifiers: Chronic kidney disease stage: stage 3 (moderate) Qualified Code(s): N18.3 - Chronic kidney disease, stage 3 (moderate) Is this a current diagnosis for this admission?: YesPlan: Patient's creatinine has normalized. (11) Diastolic dysfunction Is this a current diagnosis for this admission?: YesPlan: Patient is euvolemic currently. (12) Major depression Qualifiers: Major depression recurrence: recurrent Active/Remission status: remission status unspecified Qualified Code(s): F33.9 - Major depressive disorder, recurrent, unspecified Is this a current diagnosis for this admission?: Yes (13) Morbid obesity with BMI of 40.0-44.9, adult Is this a current diagnosis for this admission?: Yes (14) A-fib Qualifiers: Atrial fibrillation type: paroxysmal Qualified Code(s): I48.0 - Paroxysmal atrial fibrillation Is this a current diagnosis for this admission?: Yes (15) Anemia, chronic disease Is this a current diagnosis for this admission?: Yes (16) Chronic pain syndrome Is this a current diagnosis for this admission?: YesPlan: Patient reports that the tramadol is controlling her pain at this time. (17) Do not resuscitate Is this a current diagnosis for this admission?: Yes (18) Hypertension Qualifiers: Hypertension type: essential hypertension Qualified Code(s): I10 - Essential (primary) hypertension Is this a current diagnosis for this admission?: YesPlan: Continue with metoprolol. (19) Obstructive sleep apnea Is this a current diagnosis for this admission?: Yes - Time Time Spent with patient: 25-34 minutes - Inpatient Certification Medical Necessity: Need for IV Antibiotics - Plan Summary Plan Summary: If her cultures remain negative by tomorrow we can [facility].
[2016-10-24] MEDS: LACTULOSE SYRUP 20 GM/30 ML UDCUP PO PRN ×2 (16:46→23:39)
[2016-10-24] MEDS: GUAIFENESIN 600 MG TABLET.SA PO SCH (22:59)
[2016-10-25] MEDS: BENZONATATE 100 MG CAPSULE PO SCH ×2 (01:31→10:01)
[2016-10-25] MEDS: IMIPENEM/CILASTATIN SODIUM 500 MG in NORMAL SALINE 100 ML IV SCH ×2 (04:04→10:06)
[2016-10-25 06:52] LABS: HEMATOCRIT 40.4 % (36.0-47.0); HEMOGLOBIN 13.7 g/dL (12.0-15.5); HGB HCT DIFFERENCE 0.7; MEAN CORPUSCULAR HEMOGLOBIN 29.7 pg (27.0-33.4); MEAN CORPUSCULAR HGB CONC 33.8 g/dL (32.0-36.0); MEAN CORPUSCULAR VOLUME 88 fl (80-97); RED CELL DISTRIBUTION WIDTH 15.7 % (11.5-14.0)
[2016-10-25 07:01] LABS: ANION GAP 13 (5-19); BLOOD UREA NITROGEN 41 mg/dL (7-20); CALCIUM 9.6 mg/dL (8.4-10.2); CARBON DIOXIDE 35 mmol/L (22-30); CHLORIDE 93 mmol/L (98-107); CREATININE RESULT 0.92 mg/dL (0.52-1.25); GLUCOSE 231 mg/dL (75-110); POTASSIUM 4.6 mmol/L (3.6-5.0); SODIUM 140.7 mmol/L (137-145)
[2016-10-25 07:21] LABS: BASOPHILS % (MANUAL) 0 % (0-2); EOSINOPHILS % (MANUAL) 0 % (0-6); LYMPHOCYTES % (MANUAL) 22 % (13-45); TOTAL CELLS COUNTED 100
[2016-10-25 07:22] LABS: ANISOCYTOSIS SLIGHT; POLYCHROMASIA SLIGHT
[2016-10-25] MEDS: IPRATROPIUM/ALBUTEROL 0.5-2.5 MG/3 ML AMPUL NEB PRN (08:32)
[2016-10-25] MEDS: BUDESONIDE NEB 0.5 MG/2 ML AMPUL NEB SCH (08:32)
[2016-10-25] MEDS: PREDNISONE 20 MG TABLET PO SCH (09:53)
[2016-10-25] MEDS: TRAMADOL HCL 50 MG TABLET PO PRN (09:54)
[2016-10-25] MEDS: METOPROLOL SUCCINATE 25 MG TAB.SR.24H PO SCH (09:54)
[2016-10-25] MEDS: DIGOXIN 0.125 MG TABLET PO SCH (09:55)
[2016-10-25] MEDS: APIXABAN 5 MG TABLET PO SCH (09:57)
[2016-10-25] MEDS: FUROSEMIDE 40 MG TABLET PO SCH (09:57)
[2016-10-25] MEDS: ASPIRIN 81 MG TABLET, ENT COATED PO SCH (09:58)
[2016-10-25] MEDS: POTASSIUM CHLORIDE 10 MEQ TABLET.SA PO SCH (09:58)
[2016-10-25] MEDS: GUAIFENESIN 600 MG TABLET.SA PO SCH (09:59)
[2016-10-25] MEDS: PREGABALIN 100 MG CAPSULE PO SCH (10:00)
[2016-10-25] MEDS: CETIRIZINE 10 MG TABLET PO SCH (10:00)
[2016-10-25] MEDS: BUSPIRONE HCL 10 MG TABLET PO SCH (10:01)
[2016-10-25] MEDS: DULOXETINE HCL 30 MG CAPSULE.DR PO SCH (10:02)
[2016-10-25] MEDS: LANSOPRAZOLE 15 MG TAB.RAP.DR PO SCH (10:02)
[2016-10-25] MEDS: RANOLAZINE 500 MG TAB.SR.12H PO SCH (10:03)
[2016-10-25] MEDS: INSULIN DETEMIR 100 UNIT/ML 3 ML PEN SUBCUT SCH (10:03)
[2016-10-25] MEDS: TIOTROPIUM BROMIDE DPI 5 CAP/KIT (18 MCG/CAP) IH SCH (10:04)
--- NOTE | 2016-10-25 13:24 | PDOC TRANSFER SUMMARY ---
General - Admit/Disc Date/PCP Admission Date/Primary Care Provider: 10/18/16 07:57 MUSA HODGSON MD Discharge Date: 10/25/16 - Discharge Diagnosis (1) Sepsis Is this a current diagnosis for this admission?: YesSummary: Secondary to an infected Port-A-Cath which has been removed. Growing Escherichia coli ESBL from blood cultures. (2) Elevated troponin Is this a current diagnosis for this admission?: YesSummary: [place] to be secondary to her underlying illness. (3) COPD exacerbation Is this a current diagnosis for this admission?: Yes (4) UTI (urinary tract infection) Is this a current diagnosis for this admission?: YesSummary: Growing Escherichia coli and Proteus. (5) Chronic respiratory failure with hypoxia Is this a current diagnosis for this admission?: Yes (6) COPD (chronic obstructive pulmonary disease) Is this a current diagnosis for this admission?: Yes (7) Diabetes mellitus type II, controlled Is this a current diagnosis for this admission?: Yes (8) Thrombocytopenia Is this a current diagnosis for this admission?: YesSummary: Evaluated by Dr. Choi of oncology. (9) Adrenal insufficiency Is this a current diagnosis for this admission?: YesSummary: On chronic prednisone. (10) Chronic kidney disease Is this a current diagnosis for this admission?: Yes (11) Diastolic dysfunction Is this a current diagnosis for this admission?: Yes (12) Major depression Is this a current diagnosis for this admission?: Yes (13) Morbid obesity with BMI of 40.0-44.9, adult Is this a current diagnosis for this admission?: Yes (14) A-fib Is this a current diagnosis for this admission?: Yes (15) Anemia, chronic disease Is this a current diagnosis for this admission?: Yes (16) Chronic pain syndrome Is this a current diagnosis for this admission?: Yes (17) Do not resuscitate Is this a current diagnosis for this admission?: Yes (18) Hypertension Is this a current diagnosis for this admission?: Yes (19) Obstructive sleep apnea Is this a current diagnosis for this admission?: Yes - Additional Information Resuscitation Status: Do Not Resuscitate - Per emergency room nurse practitioner , patient desires DO NOT RESUSCITATE status. Discharge Diet: Cardiac, Diabetic Discharge Activity: Activity As Tolerated Home Medications: Duloxetine HCl [Cymbalta] 90 mg PO DAILY 01/05/16 Albuterol Sulfate [Ventolin 0.083% Neb 2.5 mg/3 mL Ampul] 2.5 mg NEB Q2HP PRN Omeprazole Magnesium [Prilosec Otc] 20 mg PO QAM 06/10/16 Guaifenesin [Mucinex Sr 600 mg Tablet.sa] 1,200 mg PO Q12 tablet.sa 06/15/16 Acetaminophen [Tylenol 325 mg Tablet] 650 mg PO Q4HP PRN 07/12/16 Apixaban [Eliquis 5 mg Tablet] 5 mg PO DAILY 10/18/16 Budesonide [Pulmicort Neb 0.5 mg/2 ml Ampul] 0.5 mg NEB Q4H 10/18/16 Buspirone HCl [Buspar 5 mg Tablet] 5 mg PO BID 10/18/16 Dextromethorphan HBr [Delsym] 10 ml PO Q12HP PRN 10/18/16 Dextrose 50 % in Water [Dextrose 50%-Water Vial] 50 ml IV PRN PRN 10/18/16 Digoxin [Lanoxin 0.25 mg Tablet] 0.25 mg PO DAILY 10/18/16 Diltiazem HCl [Cardizem 60 mg Tablet] 60 mg PO Q6 10/18/16 Diphenhydramine HCl [Benadryl] 25 mg PO Q6HP PRN 10/18/16 Famotidine [Pepcid 20 mg Tablet] 20 mg PO BID 10/18/16 Fentanyl [Duragesic 25 mcg/hr Transdermal Patch] 1 patch TOP Q3D 10/18/16 Glucagon,Human Recombinant [Glucagon Emergency Kit] 1 mg SQ PRN PRN 10/18/16 Heparin Sodium,Porcine/Pf [Heparin 1,000 Unit/10 (100/ml)] 3 ml IV Q12 10/18/16 Insulin Aspart [Novolog Insulin (Aspart) 100 unit/mL] See Protocol SQ ACHS 10/18 Insulin Detemir [Levemir Flextouch] 30 units SQ DAILY 10/18/16 Ipratropium [place] [Atrovent 0.02% Neb 0.5 mg/2.5 ml Ampul] 1 vial NEB Q4H Lactulose [Cephulac Syrup 20 gm/30 ml Udcup] 30 ml PO BID 10/18/16 Levalbuterol HCl [Xopenex Concentrate] 1 vial NEB Q4 10/18/16 Linaclotide [Linzess 145 Mcg Capsule] 145 mcg PO QAM 10/18/16 Metoclopramide HCl [Reglan] 5 mg PO MEALS 10/18/16 Nitroglycerin [Nitrostat] 0.4 mg SL Q5M 10/18/16 Prednisone [Deltasone 20 mg Tablet] 20 mg PO BID 10/18/16 Promethazine HCl [Phenergan 25 mg Tablet] 25 mg PO Q6HP PRN 10/18/16 Furosemide [Lasix] 40 mg PO DAILY 10/19/16 Aspirin [Ecotrin 81 mg EC Tablet] 81 mg PO DAILY tabec 10/25/16 Dronabinol [Marinol 2.5 mg Capsule] 2.5 mg PO BID #60 capsule 10/25/16 Hydrocodone/Acetaminophen [[place] 5-325 mg Tablet] 1 tab PO Q4HP PRN #30 tablet 10/25/16 Imipenem/Cilastatin Sodium [Imipenem-Cilastatin 500 mg Vl] 500 mg IV Q6 #28 vial 10/25/16 Metoprolol Succinate [Toprol Xl 25 mg Tab.sr] 25 mg PO Q12 tab.sr.24h 10/25/16 Potassium Chloride [Klor-Con 10 Meq Tablet.sa] 40 meq PO DAILY tablet.sa Pregabalin [Lyrica 100 mg Capsule] 100 mg PO BID #60 capsule 10/25/16 Ranolazine [Ranexa 500 mg Tab.sr] 500 mg PO Q12 tab.sr.12h 10/25/16 Tramadol HCl [Ultram 50 mg Tablet] 50 mg PO Q6HP PRN #90 tablet 10/25/16 History of Present Illness Admission Date/PCP: 10/18/16 07:57 MUSA HODGSON MD History of Present Illness: 71-year-old female who presented with a fever and confusion. Patient was found to have a urinary tract infection and she has a history of COPD, chronic pain, chronic respiratory failure. She was also noted have elevated troponin she presented but did not have any complaints of chest pain. The patient does have problems with chronic back and hip pain for which she takes narcotics on a regular basis. Hospital Course Hospital Course: 71-year-old female who presented with fever and confusion and was found to have sepsis. Was initially thought to be secondary to urinary tract infection which she had however her blood cultures grew out Escherichia coli with ESBL. She had a Port-A-Cath placed and given the positive cultures was felt that the Port- A-Cath was the likely source. Patient had this removed and had a PICC line placed. Patient has been treated with imipenem and will need an additional 7 days of imipenem done as an outpatient. The patient while here was noted have elevated troponins which was felt to be secondary to her underlying sepsis. Patient was evaluated by cardiology. She also is noted have thrombocytopenia which has resolved. She was evaluated by Dr. Serrato of oncology who suggested no further workup. Physical Exam Vital Signs: Temp Pulse Resp BP Pulse Ox 98.2 F 73 19 126/78 H 93 10/25/16 12:29 10/25/16 12:29 10/25/16 12:29 10/25/16 12:29 10/25/16 12:29 Intake & Output 10/24/16 10/25/16 10/26/16 06:59 06:59 06:59 Intake Total 1520 590 350 Balance 1520 590 350 Weight 98.9 kg 98.8 kg General appearance: PRESENT: no acute distress Eye exam: PRESENT: conjunctiva pink. ABSENT: scleral icterus Ear exam: PRESENT: normal external ear exam Mouth exam: PRESENT: moist, tongue midline Neck exam: ABSENT: JVD Respiratory exam: PRESENT: clear to auscultation elia. ABSENT: rales, rhonchi, wheezes Cardiovascular exam: PRESENT: RRR. ABSENT: diastolic murmur, rubs, systolic murmur GI/Abdominal exam: PRESENT: normal bowel sounds, soft. ABSENT: distended, guarding, mass, organolmegaly, rebound, tenderness Extremities exam: ABSENT: calf tenderness, clubbing, pedal edema Neurological exam: PRESENT: alert, awake, oriented to person, oriented to place , oriented to time, oriented to situation, CN II-XII grossly intact. ABSENT: motor sensory deficit Psychiatric exam: PRESENT: appropriate affect Skin exam: PRESENT: dry, intact, warm. ABSENT: cyanosis, rash Results Laboratory Results: 10/25/16 05:54 10/25/16 05:54 10/25/16 10/25/16 05:54 05:54 WBC 11.0 H RBC 4.60 Hgb 13.7 Hct 40.4 MCV 88 MCH 29.7 MCHC 33.8 RDW 15.7 H Plt Count 288 Seg Neutrophils % Not Reportable Lymphocytes % Not Reportable Monocytes % Not Reportable Eosinophils % Not Reportable Basophils % Not Reportable Absolute Neutrophils Not Reportable Absolute Lymphocytes Not Reportable Absolute Monocytes Not Reportable Absolute Eosinophils Not Reportable Absolute Basophils Not Reportable Sodium 140.7 Potassium 4.6 Chloride 93 L Carbon Dioxide 35 H Anion Gap 13 BUN 41 H Creatinine 0.92 Est GFR ( Amer) > 60 Est GFR (Non-Af Amer) > 60 Glucose 231 H Calcium 9.6 10/22/16 03:30 NT-Pro-B Natriuret Pep 5570 H Impressions: Chest X-Ray 10/22/16 00:00 IMPRESSION: No acute cardiopulmonary findings. Interventional Vascular Procedure 10/23/16 00:00 IMPRESSION: SUCCESSFUL PLACEMENT OF A 5 FR DUAL LUMEN 43 CM PICC IN THE left basilic VEIN. PICC Line Insertion 10/23/16 08:00 IMPRESSION: SUCCESSFUL PLACEMENT OF A 5 FR DUAL LUMEN 43 CM PICC IN THE left basilic VEIN. Transfer Plan - Disposition Transfer Plan: The patient is transferred back to [facility]. - Time Spent with Patient Time spent with patient: Greater than 30 Minutes Qualifiers PATEINT BEING DISCHARGED WITH ANY OF THE FOLLOWING DIAGNOSIS?: No Plan Discharge Plan: Patient transferred back to [facility]. Time Spent: Greater than 30 Minutes
[2016-10-25] MEDS: HYDROCODONE/ACETAMINOPHEN 5-325 MG TABLET PO PRN (13:36)
[2016-10-25 17:05] VITALS: BP 147/79
== END 2016-10-25 18:00 | DRG 314 ==
LOC: ER 20:15 → EH 10-18 06:22 → UNDOADMIN 10-18 06:22 → EH 10-18 07:57 → 3N 10-18 13:40
PROVIDERS: ADMIT Family Medicine; ATTEND Family Medicine
PROC: 0JPT0XZ Removal of Tunneled Vascular Access Device from Trunk Subcutaneous Tissue and Fascia, Open Approach (ICD-10-PCS; principal; 2016-10-22)
PROC: 02HV33Z Insertion of Infusion Device into Superior Vena Cava, Percutaneous Approach (ICD-10-PCS; 2016-10-23)
PROC: B548ZZA Ultrasonography of Superior Vena Cava, Guidance (ICD-10-PCS; 2016-10-23)
DX: T80.219A Unspecified infection due to central venous catheter, initial encounter (principal); A41.51 Sepsis due to Escherichia coli [E. coli]; T83.511A Infection and inflammatory reaction due to indwelling urethral catheter, initial encounter; N39.0 Urinary tract infection, site not specified; I13.0 Hypertensive heart and chronic kidney disease with heart failure and stage 1 through stage 4 chronic kidney disease, or unspecified chronic kidney disease; I50.32 Chronic diastolic (congestive) heart failure; J44.1 Chronic obstructive pulmonary disease with (acute) exacerbation; J96.11 Chronic respiratory failure with hypoxia; E27.40 Unspecified adrenocortical insufficiency; Z68.41 Body mass index [BMI] 40.0-44.9, adult; E11.22 Type 2 diabetes mellitus with diabetic chronic kidney disease; N18.3 Chronic kidney disease, stage 3 (moderate); D63.1 Anemia in chronic kidney disease; B96.20 Unspecified Escherichia coli [E. coli] as the cause of diseases classified elsewhere; B96.4 Proteus (mirabilis) (morganii) as the cause of diseases classified elsewhere; D69.6 Thrombocytopenia, unspecified; I48.0 Paroxysmal atrial fibrillation; E87.6 Hypokalemia; D50.8 Other iron deficiency anemias; K21.9 Gastro-esophageal reflux disease without esophagitis; K44.9 Diaphragmatic hernia without obstruction or gangrene; M19.90 Unspecified osteoarthritis, unspecified site; M79.7 Fibromyalgia; F41.1 Generalized anxiety disorder; F32.9 Major depressive disorder, single episode, unspecified; E66.01 Morbid (severe) obesity due to excess calories; M10.9 Gout, unspecified; G89.4 Chronic pain syndrome; Z66 Do not resuscitate; G47.33 Obstructive sleep apnea (adult) (pediatric); Z79.01 Long term (current) use of anticoagulants; Z79.4 Long term (current) use of insulin; Z79.82 Long term (current) use of aspirin; Z79.899 Other long term (current) drug therapy; I25.2 Old myocardial infarction; Z86.711 Personal history of pulmonary embolism; Z86.14 Personal history of Methicillin resistant Staphylococcus aureus infection; Z90.49 Acquired absence of other specified parts of digestive tract; Z90.710 Acquired absence of both cervix and uterus; Z74.01 Bed confinement status; Z88.8 Allergy status to other drugs, medicaments and biological substances; Z88.1 Allergy status to other antibiotic agents
CPT/HCPCS: 36415; 36569; 36591; 36600; 71010; 76937; 80048; 80053; 81001; 82550; 82553; 82803; 82962; 83605; 83880; 84484; 85025; 85027; 85610; 85730; 87040; 87077; 87086; 87088; 87186; 93005; 93010; 93306; 94640; 94660; 96365; 96372; 96375; 99285; J0743; J1335; J1642; J1650; J1815; J2543; J2930; J3370; J3480; J3490; J7030; J7512; J7620

== ENCOUNTER 2016-11-24 16:51 | Inpatient (IN) | payer MEDICARE, MEDICAID ==
--- NOTE | 2016-11-24 17:28 | ER Document Report ---
ED General - General Chief Complaint: Weakness Stated Complaint: LETHARGIC Time Seen by Provider: 11/24/16 17:25 Mode of Arrival: Medic Information source: Patient, [facility] Records Notes: 71-year-old female with a history of COPD (3 L nasal cannula, CPAP), CAD, hypertension, diabetes, CHF, atrial fibrillation (Eliquis, Cardizem, Toprol, digoxin). Patient is brought in by EMS from [facility] because of lethargy and bradycardia. Patient denies any chest pain or shortness of breath. Baseline: Patient is Nonambulatory for 8 years due to severe osteoarthritis and utilizes a motorized wheelchair. TRAVEL OUTSIDE OF THE [place] IN LAST 30 DAYS: No - HPI Onset: Just prior to arrival Onset/Duration: Gradual Quality of pain: No pain Severity: None Pain Level: Denies Associated symptoms: denies: Chest pain, Fever, Shortness of breath - Patient has chronic obstructive sleep apnea and COPD : There have been no changes. Exacerbated by: Denies Relieved by: Denies Similar symptoms previously: No Recently seen / treated by doctor: Yes - Related Data Allergies/Adverse Reactions: Sulfa (Sulfonamide Antibiotics) Allergy (Intermediate, Verified 11/24/16 17:35) adhesive tape Allergy (Verified 11/24/16 17:35) atorvastatin calcium [From Lipitor] Allergy (Verified 11/24/16 17:35) celecoxib [From Celebrex] Allergy (Verified 11/24/16 17:35) Past Medical History - General Information source: Patient - Social History Smoking Status: Former Smoker Cigarette use (# per day): No Chew tobacco use (# tins/day): No Frequency of alcohol use: None Drug Abuse: None Lives with: [facility] Family History: Arthritis, CAD, CVA, DM, Hypertension - Past Medical History Cardiac Medical History: Reports: Hx Atrial Fibrillation, Hx Congestive Heart Failure - Diastolic dysfunction, Hx Heart Attack, Hx Hypertension - essential, Hx Pulmonary Embolism, Hx Heart Murmur Denies: Hx Coronary Artery Disease, Hx DVT, Hx Hypercholesterolemia, Hx Peripheral Vascular Disease Pulmonary Medical History: Reports: Hx Asthma, Hx Bronchitis, Hx COPD, Hx Pneumonia - Recurrent MRSA pneumonia., Hx Sleep Apnea - Uses C Pap Denies: Hx Tuberculosis Neurological Medical History: Denies: Hx Seizures Endocrine Medical History: Reports: Hx Diabetes Mellitus Type 2. Denies: Hx Diabetes Mellitus Type 1, Hx Hyperthyroidism, Hx Hypothyroidism Renal/ Medical History: Reports: Hx Renal Insufficiency. Denies: Hx Peritoneal Dialysis GI Medical History: Reports: Hx Gastroesophageal Reflux Disease, Hx Hiatal Hernia. Denies: Hx Cirrhosis, Hx Hepatitis Musculoskeltal Medical History: Reports Hx Arthritis, Reports Hx Fibromyalgia, Reports Hx Gout, Reports Hx Muscle Weakness Skin Medical History: Denies Hx Eczema, Denies Hx Psoriasis Psychiatric Medical History: Reports: Hx Anxiety, Hx Depression Infectious Medical History: Reports: Hx MRSA. Denies: Hx Hepatitis Past Surgical History: Reports: Hx Appendectomy, Hx Cholecystectomy, Hx Hysterectomy, Hx Orthopedic Surgery - Multiple left hip procedures, 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 - Immunizations Hx Diphtheria, Pertussis, Tetanus Vaccination: Yes Hx Pneumococcal Vaccination: 05/20/13 Review of Systems - Review of Systems Constitutional: denies: Chills, Fever EENT: No symptoms reported Cardiovascular: See HPI Respiratory: No symptoms reported Gastrointestinal: No symptoms reported Genitourinary: No symptoms reported Female Genitourinary: No symptoms reported Musculoskeletal: No symptoms reported Skin: No symptoms reported Hematologic/Lymphatic: No symptoms reported Neurological/Psychological: No symptoms reported Physical Exam - Vital signs Vitals: Temp Pulse Resp BP Pulse Ox 98.5 F 67 21 H 150/88 H 100 11/24/16 17:05 11/24/16 17:05 11/24/16 17:05 11/24/16 17:05 11/24/16 17:05 Notes: GENERAL: 71-year-old female, no acute distress. HEAD: Atraumatic, normocephalic. EYES: Pupils equal round and reactive to light, extraocular movements intact, sclera anicteric, conjunctiva are normal. ENT: TMs normal, nares patent, oropharynx clear without exudates. Moist mucous membranes. NECK: Normal range of motion, supple without lymphadenopathy or JVD. LUNGS: Breath sounds clear to auscultation bilaterally and equal. No wheezes rales or rhonchi. HEART: Regular rate and rhythm without murmurs, rubs or gallops. ABDOMEN: Soft, normoactive bowel sounds. No tenderness to palpation. No guarding, no rebound. No masses appreciated. EXTREMITIES: Normal range of motion, no pitting or edema. No clubbing or cyanosis. NEUROLOGICAL: Cranial nerves II through XII grossly intact. Normal speech, normal gait. PSYCH: Normal mood, normal affect. SKIN: Warm, Dry, normal turgor, no rashes or lesions noted. Physical exam: Course - Re-evaluation Re-evalutation: 11/24/16 19:[address] Graham who recommends holding the digoxin, Cardizem and metoprolol and observe on monitor. Discussed case with the hospitalist Dr. Mejía who requests repeat troponin. 11/24/16 20:48 Note: Poison control did call back and recommended giving Digibind (a full dose would be 4 vials). Given that the patient has been hemodynamically stable For the past several hours and the heart rate is in the 60s, the plan will just be to watch closely for now, hold all beta blockers, calcium blockers and obviously the dig. If patient becomes hemodynamically unstable: Then give the Digibind which would be 4 vials. - Vital Signs Vital signs: Temp Pulse Resp BP Pulse Ox 98.5 F 67 19 146/75 H 99 11/24/16 17:05 11/24/16 17:05 11/24/16 18:31 11/24/16 18:31 11/24/16 18:31 - Laboratory Result Diagrams: 11/24/16 17:25 11/24/16 17:25 Laboratory results interpreted by me: 11/24/16 11/24/16 11/24/16 17:25 17:25 19:45 RBC 3.52 L Hgb 10.5 L Hct 31.6 L RDW 16.1 H Seg Neuts % (Manual) 80 H Band Neutrophils % 1 L Potassium 5.6 H Carbon Dioxide 34 H BUN 28 H Est GFR ( Amer) 59 L Est GFR (Non-Af Amer) 49 L Glucose 221 H Creatine Kinase < 20 L Albumin 3.2 L Urine Nitrite POSITIVE H Ur Leukocyte Esterase TRACE H Digoxin 3.48 H* - Diagnostic Test Radiology reviewed: Image reviewed, Reports reviewed - Chest x-ray shows no significant change from previous - EKG Interpretation by Me Rate: Bradycardia Rhythm: NSR - EKG shows sinus bradycardia with a ventricular rate of 64, left axis deviation, IVCD. No significant change from previous EKG 1 month previous. Discharge - Discharge Clinical Impression: Bradycardia, Dig toxicity, Chronic kidney disease Condition: Serious Disposition: ADMITTED INPATIENT Admitting Provider: Hospitalist - Dr. Mejía Unit Admitted: [facility]
[2016-11-24 17:52] LABS: HEMATOCRIT 31.6 % (36.0-47.0); HEMOGLOBIN 10.5 g/dL (12.0-15.5); HGB HCT DIFFERENCE -0.1; MEAN CORPUSCULAR HEMOGLOBIN 29.9 pg (27.0-33.4); MEAN CORPUSCULAR HGB CONC 33.3 g/dL (32.0-36.0); MEAN CORPUSCULAR VOLUME 90 fl (80-97); RED BLOOD COUNT 3.52 10^6/uL (3.72-5.28); RED CELL DISTRIBUTION WIDTH 16.1 % (11.5-14.0); WHITE BLOOD COUNT 8.5 10^3/uL (4.0-10.5)
--- NOTE | 2016-11-24 18:01 | RADIOLOGY REPORT (SQ) ---
EXAM DESCRIPTION: CHEST SINGLE VIEW COMPLETED DATE/TIME: 11/24/2016 5:49 pm REASON FOR STUDY: sob COMPARISON: September 2016 EXAM PARAMETERS: NUMBER OF VIEWS: One view. TECHNIQUE: Single frontal radiographic view of the chest acquired. RADIATION DOSE: NA LIMITATIONS: Patient has made a shallow inspiration. FINDINGS: LUNGS AND PLEURA: No opacities, masses or pneumothorax. No pleural effusion. MEDIASTINUM AND HILAR STRUCTURES: The previously described hilar fullness is again identified. HEART AND VASCULAR STRUCTURES: Cardiac silhouette is unchanged in configuration. BONES: No acute findings. HARDWARE: None in the chest. OTHER: No other significant finding. IMPRESSION: No significant interval change. No acute findings. Other findings as noted above TECHNICAL DOCUMENTATION: JOB ID: [id number]
[2016-11-24 18:18] LABS: ALANINE AMINOTRANSFERASE 37 U/L (9-52); ALBUMIN 3.2 g/dL (3.5-5.0); ALKALINE PHOSPHATASE 114 U/L (38-126); ANION GAP 6 (5-19); ASPARTATE AMINO TRANSFERASE 15 U/L (14-36); BAND NEUTROPHILS % (MANUAL) 1 % (3-5); BASOPHILS % (MANUAL) 0 % (0-2); BILIRUBIN,DIRECT 0.4 mg/dL (0.0-0.4); BILIRUBIN,TOTAL 0.6 mg/dL (0.2-1.3); BLOOD UREA NITROGEN 28 mg/dL (7-20); CALCIUM 9.4 mg/dL (8.4-10.2); CARBON DIOXIDE 34 mmol/L (22-30); CHLORIDE 99 mmol/L (98-107); CREATINE KINASE < 20 U/L (30-135); EOSINOPHILS % (MANUAL) 0 % (0-6); GLUCOSE 221 mg/dL (75-110); LYMPHOCYTES % (MANUAL) 14 % (13-45); POTASSIUM 5.6 mmol/L (3.6-5.0); SODIUM 138.9 mmol/L (137-145); TOTAL CELLS COUNTED 100; TOTAL PROTEIN 6.4 g/dL (6.3-8.2)
[2016-11-24 18:19] LABS: ANISOCYTOSIS 1+; HYPOCHROMASIA SLIGHT
[2016-11-24 18:26] LABS: CREATINE KINASE MB 1.94 ng/mL (<4.55)
[2016-11-24 18:34] LABS: DIGOXIN 3.48 ng/mL (0.8-2.0)
[2016-11-24 18:35] LABS: TROPONIN I 0.104 ng/mL
[2016-11-24] MEDS ORDERED: IPRATROPIUM/ALBUTEROL 0.5-2.5 MG/3 ML AMPUL NEB ONE (19:56)
[2016-11-24 20:09] LABS: APPEARANCE,URINE SLIGHTLY-CLOUDY; BILIRUBIN,URINE NEGATIVE (NEGATIVE); GLUCOSE, URINE NEGATIVE (NEGATIVE); KETONES,URINE NEGATIVE (NEGATIVE); LEUKOCYTE ESTERASE,URINE TRACE (NEGATIVE); NITRITE,URINE POSITIVE (NEGATIVE); PROTEIN,URINE NEGATIVE (NEGATIVE); URINE SPECIFIC GRAVITY 1.013; UROBILINOGEN,URINE NEGATIVE mg/dL (<2.0)
--- NOTE | 2016-11-24 20:19 | EKG REPORT ---
SEVERITY:- ABNORMAL ECG - SINUS RHYTHM LVH WITH IVCD, LAD AND SECONDARY REPOL ABNRM : Confirmed by: Inocencio Aguilar MD 24-Nov-2016 20:18:40
[2016-11-24] MEDS ORDERED: NORMAL SALINE 1000 ML 1,000 ML IV SCH (20:45)
[2016-11-24] MEDS ORDERED: GLUCAGON,HUMAN RECOMB 1 MG INJ IM PRN (20:45)
[2016-11-24] MEDS ORDERED: DEXTROSE 50%-WATER 25 GM/50 ML DISP.SYRIN IV PRN ×2 (20:45)
[2016-11-24] MEDS ORDERED: IPRATROPIUM/ALBUTEROL 0.5-2.5 MG/3 ML AMPUL NEB PRN (20:45)
[2016-11-24] MEDS ORDERED: DEXTROSE 40% GEL 15 GM TUBE PO PRN ×2 (20:45)
[2016-11-24] MEDS ORDERED: MAGNESIUM HYDROXIDE SUSP 30 ML UDCUP PO ONE (20:47)
[2016-11-25] MEDS: IPRATROPIUM/ALBUTEROL 0.5-2.5 MG/3 ML AMPUL NEB SCH ×4 (00:40→23:46)
--- NOTE | 2016-11-25 02:38 | PDOC H&P ---
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 Cardiology is consulted for management recommending telemetry monitoring. She was referred to the hospitalist for admission. She is found by hospitalist unable to stay awake and twitching evaluation of her chemistry reveals a bicarb of 34 she is started on BiPAP. Additional history is unavailable Past Medical History Cardiac Medical History: Reports: Atrial Fibrillation, Congestive Heart Failure - Diastolic dysfunction, Myocardial Infarction, Hypertension - essential, Pulmonary Embolism, Heart Murmur Denies: Coronary Artery Disease, DVT, Hyperlipidema, Peripheral Vascular Disease Pulmonary Medical History: Reports: Asthma, Bronchitis, Chronic Obstructive Pulmonary Disease (COPD), Pneumonia - Recurrent MRSA pneumonia., Sleep Apnea - Uses C Pap Denies: Tuberculosis Neurological Medical History: Denies: Seizures Endocrine Medical History: Reports: Diabetes Mellitus Type 2 Denies: Diabetes Mellitus Type 1, Hyperthyroidism, Hypothyroidism GI Medical History: Reports: Gastroesophageal Reflux Disease, Hiatal Hernia Denies: Cirrhosis, Hepatitis Musculoskeltal Medical History: Reports: Arthritis, Fibromyalgia, Gout Skin Medical History: Denies: Eczema, Psoriasis Psychiatric Medical History: Reports: Depression Hematology: Reports: Anemia Infectious Medical History: Reports: Methicillin-Resistant Staph Aureus Past Surgical History Past Surgical History: Reports: Appendectomy, Cholecystectomy, Hysterectomy, Orthopedic Surgery - Multiple left hip procedures, 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 Social History Information Source: [facility] Records Lives with: Group Home Smoking Status: Former Smoker Frequency of Alcohol Use: None Hx Recreational Drug Use: No Drugs: None Hx Prescription Drug Abuse: No - Advance Directive Resuscitation Status: Full Code Family History Family History: Arthritis, CAD, CVA, DM, Hypertension Parental Family History Reviewed: No - Obtainable Children Family History Reviewed: No Sibling(s) Family History Reviewed.: No - Unobtainable Medication/Allergy Home Medications: Duloxetine HCl [Cymbalta] 90 mg PO DAILY 01/05/16 Albuterol Sulfate [Ventolin 0.083% Neb 2.5 mg/3 mL Ampul] 2.5 mg NEB Q2HP PRN Omeprazole Magnesium [Prilosec Otc] 20 mg PO QAM 06/10/16 Guaifenesin [Mucinex Sr 600 mg Tablet.sa] 1,200 mg PO Q12 tablet.sa 06/15/16 Acetaminophen [Tylenol 325 mg Tablet] 650 mg PO Q4HP PRN 07/12/16 Apixaban [Eliquis 5 mg Tablet] 5 mg PO DAILY 10/18/16 Budesonide [Pulmicort Neb 0.5 mg/2 ml Ampul] 0.5 mg NEB Q4H 10/18/16 Buspirone HCl [Buspar 5 mg Tablet] 5 mg PO BID 10/18/16 Dextromethorphan HBr [Delsym] 10 ml PO Q12HP PRN 10/18/16 Digoxin [Lanoxin 0.25 mg Tablet] 0.25 mg PO DAILY 10/18/16 Diltiazem HCl [Cardizem 60 mg Tablet] 60 mg PO Q6 10/18/16 Diphenhydramine HCl [Benadryl] 25 mg PO Q6HP PRN 10/18/16 Famotidine [Pepcid 20 mg Tablet] 20 mg PO BID 10/18/16 Fentanyl [Duragesic 25 mcg/hr Transdermal Patch] 1 patch TOP Q3D 10/18/16 Insulin Detemir [Levemir Flextouch] 30 units SQ DAILY 10/18/16 Ipratropium [place] [Atrovent 0.02% Neb 0.5 mg/2.5 ml Ampul] 1 vial NEB Q4H Lactulose [Cephulac Syrup 20 gm/30 ml Udcup] 30 ml PO BID 10/18/16 Levalbuterol HCl [Xopenex Concentrate] 1 vial NEB Q4 10/18/16 Linaclotide [Linzess 145 Mcg Capsule] 145 mcg PO QAM 10/18/16 Nitroglycerin [Nitrostat] 0.4 mg SL Q5M 10/18/16 Prednisone [Deltasone 20 mg Tablet] 20 mg PO BID 10/18/16 Promethazine HCl [Phenergan 25 mg Tablet] 25 mg PO Q6HP PRN 10/18/16 Furosemide [Lasix] 40 mg PO DAILY 10/19/16 Aspirin [Ecotrin 81 mg EC Tablet] 81 mg PO DAILY tabec 10/25/16 Dronabinol [Marinol 2.5 mg Capsule] 2.5 mg PO BID #60 capsule 10/25/16 Hydrocodone/Acetaminophen [[place] 5-325 mg Tablet] 1 tab PO Q4HP PRN #30 tablet 10/25/16 Metoprolol Succinate [Toprol Xl 25 mg Tab.sr] 25 mg PO Q12 tab.sr.24h 10/25/16 Potassium Chloride [Klor-Con 10 Meq Tablet.sa] 40 meq PO DAILY tablet.sa Pregabalin [Lyrica 100 mg Capsule] 100 mg PO BID #60 capsule 10/25/16 Ranolazine [Ranexa 500 mg Tab.sr] 500 mg PO Q12 tab.sr.12h 10/25/16 Tramadol HCl [Ultram 50 mg Tablet] 50 mg PO Q6HP PRN #90 tablet 10/25/16 Allergies/Adverse Reactions: Sulfa (Sulfonamide Antibiotics) Allergy (Intermediate, Verified 11/24/16 17:35) adhesive tape Allergy (Verified 11/24/16 17:35) atorvastatin calcium [From Lipitor] Allergy (Verified 11/24/16 17:35) celecoxib [From Celebrex] Allergy (Verified 11/24/16 17:35) Review of Systems ROS unobtainable: Due to mental status Physical Exam Vital Signs: Temp Pulse Resp BP Pulse Ox 98.4 F 68 20 146/74 H 97 11/25/16 00:01 11/25/16 00:40 11/25/16 00:40 11/25/16 00:01 11/25/16 00:40 General appearance: PRESENT: disheveled, mild distress, morbidly obese. ABSENT : cooperative Head exam: PRESENT: atraumatic, normocephalic Eye exam: PRESENT: conjunctiva pink, EOMI, PERRLA. ABSENT: scleral icterus Ear exam: PRESENT: normal external ear exam Mouth exam: PRESENT: dry mucosa, tongue midline Neck exam: ABSENT: carotid bruit, JVD, lymphadenopathy, thyromegaly Respiratory exam: PRESENT: clear to auscultation elia, prolonged expiratory phas. ABSENT: rales, rhonchi, wheezes Cardiovascular exam: PRESENT: RRR. ABSENT: bradycardia, clicks, diastolic murmur, gallop, rubs, systolic murmur Pulses: PRESENT: normal dorsalis pedis pul Vascular exam: PRESENT: normal capillary refill GI/Abdominal exam: PRESENT: normal bowel sounds, soft. ABSENT: distended, guarding, mass, organolmegaly, rebound, tenderness Rectal exam: PRESENT: deferred Extremities exam: PRESENT: full ROM. ABSENT: calf tenderness, clubbing, pedal edema Neurological exam: PRESENT: altered Skin exam: PRESENT: dry, intact, warm. ABSENT: cyanosis, rash Results Impressions: Chest X-Ray 11/24/16 17:29 IMPRESSION: No significant interval change. No acute findings. Other findings as noted above Assessment & Plan - Diagnosis (1) Bradycardia Is this a current diagnosis for this admission?: YesPlan: The patient is dig toxic with a level of 3. She has nonsustained bradycardia currently in the 60s I will consider Digibind and cardiology consultation if bradycardia returns, digoxin is discontinued. (2) Hypercapnic respiratory failure Is this a current diagnosis for this admission?: YesPlan: Reduction in oxygen for O2 saturations of 89%, BiPAP avoidance of sedation and ABG (3) Hypokalemia Is this a current diagnosis for this admission?: YesPlan: Kayexalate versus lactulose, reevaluation of chemistry discontinue potassium supplements (4) COPD (chronic obstructive pulmonary disease) Qualifiers: COPD type: unspecified COPD Qualified Code(s): J44.9 - Chronic obstructive pulmonary disease, unspecified Is this a current diagnosis for this admission?: YesPlan: Albuterol and Atrovent, flutter valve, supplemental oxygen avoidance of sedation - Time Time Spent: 50 to 70 Minutes - Inpatient Certification Medical Necessity: Need Close Monitoring Due to Risk of Patient Decompensation
[2016-11-25 04:56] LABS: ARTERIAL BLOOD BASE EXCESS 5.5 mmol/L; ARTERIAL BLOOD O2 SATURATION 91.6 % (94-98)
[2016-11-25 05:08] LABS: MEAN CORPUSCULAR HEMOGLOBIN 29.5 pg (27.0-33.4); MEAN CORPUSCULAR HGB CONC 33.4 g/dL (32.0-36.0); MEAN CORPUSCULAR VOLUME 89 fl (80-97); RED BLOOD COUNT 3.39 10^6/uL (3.72-5.28); RED CELL DISTRIBUTION WIDTH 15.9 % (11.5-14.0); WHITE BLOOD COUNT 7.3 10^3/uL (4.0-10.5)
[2016-11-25 05:20] LABS: ANION GAP 6 (5-19); BLOOD UREA NITROGEN 24 mg/dL (7-20); CALCIUM 8.8 mg/dL (8.4-10.2); CARBON DIOXIDE 31 mmol/L (22-30); CHLORIDE 105 mmol/L (98-107); CREATININE RESULT 0.77 mg/dL (0.52-1.25); GLUCOSE 87 mg/dL (75-110); MAGNESIUM 2.1 mg/dL (1.6-2.3); SODIUM 141.9 mmol/L (137-145)
[2016-11-25 05:32] LABS: POTASSIUM 3.9 mmol/L (3.6-5.0)
[2016-11-25 05:39] LABS: BAND NEUTROPHILS % (MANUAL) 1 % (3-5); BASOPHILS % (MANUAL) 0 % (0-2); EOSINOPHILS % (MANUAL) 1 % (0-6); LYMPHOCYTES % (MANUAL) 11 % (13-45); TOTAL CELLS COUNTED 100
[2016-11-25] MEDS: HEPARIN SOD (PORCINE) 5,000 UNIT/ML 1 ML SYRINGE SUBCUT SCH ×3 (05:44→22:14)
[2016-11-25 05:47] LABS: POLYCHROMASIA SLIGHT; TOXIC GRANULATION 1+
[2016-11-25 05:48] LABS: ANISOCYTOSIS 1+; OVALOCYTES 1+; POIKILOCYTOSIS SLIGHT
[2016-11-25] MEDS: DOCUSATE SODIUM 100 MG CAPSULE PO SCH ×2 (09:56→16:56)
--- NOTE | 2016-11-25 10:11 | PDOC PROGRESS REPORT ---
Subjective Progress Note for:: 11/25/16 Subjective:: PORSHA WALDRON is a 71 year old female with a past medical history of MRSA pneumonia, Pseudomonas UTI, obstructive sleep apnea, COPD, morbid obesity, and gait disorder who is a long-term [facility] resident and found to have bradycardia and lethargy she is brought to the emergency room for evaluation where she is found to have a digoxin level of 3, heart rate of 40 which improved to 65 without intervention, excessive lethargy with twitching. Cardiology is consulted for management recommending telemetry monitoring. She was referred to the hospitalist for admission. She is found by hospitalist unable to stay awake and twitching evaluation of her chemistry reveals a bicarb of 34 she is started on BiPAP. This morning she is awake and alert. She is off BiPAP. As a loose coarse cough. Physical Exam Vital Signs: Temp Pulse Resp BP Pulse Ox 98.0 F 82 20 162/64 H 94 11/25/16 07:27 11/25/16 07:46 11/25/16 07:46 11/25/16 07:27 11/25/16 07:46 Intake & Output 11/24/16 11/25/16 11/26/16 06:59 06:59 06:59 Intake Total 5 Output Total 0 Balance 5 Weight 102.9 kg General appearance: PRESENT: no acute distress, morbidly obese, other - loose coarse cough Head exam: PRESENT: atraumatic, normocephalic Eye exam: PRESENT: conjunctiva pink, EOMI, PERRLA. ABSENT: scleral icterus Ear exam: PRESENT: normal external ear exam Mouth exam: PRESENT: moist, tongue midline Respiratory exam: PRESENT: decreased breath sounds, other - coarse breath sounds bilaterally. Loose, coarse cough. Cardiovascular exam: PRESENT: RRR. ABSENT: diastolic murmur, rubs, systolic murmur Pulses: PRESENT: normal dorsalis pedis pul GI/Abdominal exam: PRESENT: normal bowel sounds, soft, other - obese. ABSENT: distended, guarding, mass, organolmegaly, rebound, tenderness Rectal exam: PRESENT: deferred Extremities exam: PRESENT: full ROM. ABSENT: calf tenderness, clubbing, pedal edema Neurological exam: PRESENT: alert, awake, oriented to person, oriented to place , oriented to time, oriented to situation, CN II-XII grossly intact. ABSENT: motor sensory deficit Psychiatric exam: PRESENT: appropriate affect, normal mood. ABSENT: homicidal ideation, suicidal ideation Skin exam: PRESENT: dry, intact, warm. ABSENT: cyanosis, rash Results Laboratory Results: 11/25/16 04:18 11/25/16 04:18 11/25/16 11/25/16 11/25/16 04:18 04:18 04:40 WBC 7.3 RBC 3.39 L Hgb 10.0 L Hct 30.0 L MCV 89 MCH 29.5 MCHC 33.4 RDW 15.9 H Plt Count 232 Seg Neutrophils % Not Reportable Lymphocytes % Not Reportable Monocytes % Not Reportable Eosinophils % Not Reportable Basophils % Not Reportable Absolute Neutrophils Not Reportable Absolute Lymphocytes Not Reportable Absolute Monocytes Not Reportable Absolute Eosinophils Not Reportable Absolute Basophils Not Reportable Carbonic Acid 1.60 H HCO3/H2CO3 Ratio 19:1 ABG pH 7.39 ABG pCO2 53.2 H ABG pO2 63.3 L ABG HCO3 31.4 H ABG O2 Saturation 91.6 L ABG Base Excess 5.5 FiO2 21% Sodium 141.9 Potassium 3.9 D Chloride 105 Carbon Dioxide 31 H Anion Gap 6 BUN 24 H Creatinine 0.77 Est GFR ( Amer) > 60 Est GFR (Non-Af Amer) > 60 Glucose 87 Calcium 8.8 Magnesium 2.1 Impressions: Chest X-Ray 11/24/16 17:29 IMPRESSION: No significant interval change. No acute findings. Other findings as noted above Assessment & Plan - Diagnosis (1) Bradycardia Is this a current diagnosis for this admission?: YesPlan: Resolved. (2) Digoxin toxicity Qualifiers: Encounter type: initial encounter Injury intent: accidental or unintentional Qualified Code(s): T46.0X1A - Poisoning by cardiac- stimulant glycosides and drugs of similar action, accidental (unintentional), initial encounter Is this a current diagnosis for this admission?: YesPlan: We will recheck digoxin level in the morning. (3) Hypercapnic respiratory failure Qualifiers: Chronicity: acute Qualified Code(s): J96.02 - Acute respiratory failure with hypercapnia Is this a current diagnosis for this admission?: YesPlan: She is now off BiPAP and does not appear to require it any further. (4) COPD with acute bronchitis Is this a current diagnosis for this admission?: YesPlan: Check sputum culture. Monitor blood counts. (5) Morbid obesity with BMI of 40.0-44.9, adult Is this a current diagnosis for this admission?: Yes
[2016-11-25] MEDS: ACETAMINOPHEN 325 MG TABLET PO PRN (12:00)
--- NOTE | 2016-11-25 16:43 | CONSULTATION REPORT E ---
Consultation Report NAME: PORSHA WALDRON : 1945 AGE: 71Y DATE: 11/25/2016 313 A TO: SHANIKA BOWEN M.D. FROM: JANAE JONES M.D. Requesting Physician NOTE: I saw the patient from 10:50 a.m. to 11:30 a.m., a total of 40 minutes. REASON FOR CONSULTATION: Bradycardia with a raised digoxin level and indeterminate troponins in the patient. HISTORY OF PRESENT ILLNESS: The patient is a very poor historian and often contradicts herself. She says one history to the attending physician hospitalist and she tells me a different history. She is also very hard of hearing and finds it difficult to understand unless we talk very loudly to her. The patient is a 71-year-old female who is bedridden in [facility] due to her gait disturbance who has a history of paroxysmal atrial fibrillation, was found to be bradycardic and lethargic in the alf and sent to the emergency room. The heart rate was in the 40s but patient's blood pressure is stable. She was also found to be hypoxic and in acute exacerbation of COPD and initial blood gases showed both hypercapnia and hypoxia. She was placed on a CPAP and her heart rate went up into the 60s with a stable blood pressure. The ER physician, Dr. Echavarria called me last night whether to give her Digibind, since the dig level was only 3.48. Since the patient has no renal failure and since the heart rate is up, I told him not to give any Digibind but to hold the metoprolol XL and the digoxin and monitor the patient on telemetry. The patient denies any chest pain or discomfort. She does have some shortness of breath. She is actively wheezing and has rhonchi. She states she has a history of hypertension and history of paroxysmal atrial fibrillation but she is on Eliquis only on 5 mg once a day. She told another doctor that she had a history of congestive heart failure and NM, but she denies that to me. She says she has not had congestive heart failure or NM. The patient states that she is coughing up some yellowish green sputum and this has been sent for culture. The patient states it started 2 days prior to admission. She does have orthopnea but no PND. There is no leg edema although she says intermittently her legs swell. At present she has no chest pain or discomfort and the patient is in chaotic atrial mechanism/wandering atrial pacemaker) with a heart rate of 99 beats per minute with stable blood pressure. Note that the patient's troponin I was 0.104 and today has come down to 0.088. This I think is not a non-ST elevation NM; this is secondary to patient's hypoxia and acute exacerbation of COPD rather than a non-ST elevation NM. PAST MEDICAL HISTORY: Positive for history of MRSA pneumonia. She has also obstructive sleep apnea but it is not clear whether she uses CPAP. She has a history of COPD. She has morbid obesity. 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 She has a history of paroxysmal atrial fibrillation. She has a history of hypertension. She states she has a history of pulmonary embolism in the past. She has a history of asthma and COPD. To the other doctor she said that she uses CPAP for her sleep apnea. There is no history of TIA or CVA. She had a history of diabetes mellitus type 2. There is no history of chronic kidney disease. She has a history of arthritis, fibromyalgia, gout and also depression and also anemia. PAST SURGICAL HISTORY: Positive for appendectomy, cholecystectomy, hysterectomy, orthopedic surgery, multiple left hip procedures 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 SOCIAL HISTORY: To me she said she has never smoked and has COPD secondary to asthma, but to the attending physician she said that she quit smoking a long time ago. ADVANCED DIRECTIVE: When asked whether she wanted to be intubated or CPR done on her, she flatly refused it and wanted to be a DNR/DNI and, hence, this was conveyed to the attending physician covering the patient today by the nurse to get appropriate orders. ALLERGIES: 1. SULFA. 2. ADHESIVE TAPE. 3. LIPITOR. 4. CELEBREX. FAMILY HISTORY: Positive for arthritis, coronary artery disease, CVA, diabetes mellitus, and hypertension. It is not clear whether this is just the parents or grandparents or brothers or sisters, since the patient is not a good historian. PRESENT MEDICATIONS: 1. Tylenol 325 mg p.o. q.4 h. p.r.n. 2. Glucose 40% gel 10 gm p.o. p.r.n. and 30 gm p.o. p.r.n. hypoglycemia. 3. Dextrose 50% 12.5 gm IV and 25 gm IV p.r.n. hypoglycemia. 4. Colace 100 mg p.o. b.i.d. 5. Glucagon 1 mg IM p.r.n. 6. Heparin 5000 units subcutaneously q.8 h. 7. She did get normal saline 1000 mL IV into 2 bags. 8. Accu-Cheks t.i.d. and at bedtime with sliding scale insulin coverage. 9. Ipratropium Albuterol 3 mL nebulizer q.4 h. p.r.n. 10. Ipratropium Albuterol 3 mL nebulizer treatment q.8 h. p.r.n. 11. Magnesium hydroxide 30 mL p.o. x1. REVIEW OF SYSTEMS: CONSTITUTIONAL: Complains of generalized fatigue and weakness. HEENT: Head: Denies any headaches or head injury. Eyes: No history of amblyopia or diplopia. No history of amaurosis fugax. Ears: The patient is hard of hearing but no recurrent ear infections. Nose: No history of hay fever. No history of nosebleeds. Mouth: No history of ulcers in the mouth, no bleeding from the gums, no altered taste sensation. Throat: No odynophagia or dysphagia and no recurrent sore throats. SKIN: The patient denies any psoriasis, pruritus or skin cancer. NECK: Denies any neck pain. There is no goiter. There is no swelling of the lymph nodes in the neck. LUNGS: History of asthma, history of pulmonary embolism, history of COPD with now acute exacerbation, history of sleep apnea. According to the chart she is using CPAP. Past history of MRSA pneumonia. She does have cough which is productive of yellowish sputum now and the patient is actually wheezing and is on BiPAP. CARDIAC: History of palpitations. History of paroxysmal atrial fibrillation. At present the patient is in chaotic atrial mechanism/wandering atrial pacemaker. Note: Yesterday the patient was bradycardic with a stable blood pressure for a few minutes which is most likely secondary to hypoxemia and respiratory failure and raised dig level. She denies any *------* or nausea or vomiting suggestive of dig toxicity except for the bradycardia. To me she says she has no coronary artery disease or NM and no history of congestive heart failure. She says that intermittently her legs swell. There is no palpitations or syncope. MUSCULOSKELETAL: The patient has arthritis but no collagen vascular disease. She is not able to walk and is bedbound due to multiple hip procedures/surgeries. GASTROINTESTINAL: History of GERD present. History of hiatal hernia. No history of GI bleed. No history of fatty food intolerance. No history of altered bowel movements. RENAL: No history of chronic kidney disease. She has a past history of pseudomonal UTI, none recently. No hematuria, polyuria or dysuria recently. At present no symptoms of UTI. CENTRAL NERVOUS SYSTEM: No history of TIA or CVA. No history of seizures or headaches or migraines. History of sleep apnea present. PSYCHIATRIC: The patient has a history of depression but no history of anxiety, suicidal ideation or homicidal ideation. HEMATOLOGICAL: The patient claims that she has a history of chronic anemia, but she does not know the cause. There is no lymphoma. VASCULAR: No history of DVT, no history of calf or buttock claudication but the patient does not walk. PHYSICAL EXAMINATION: GENERAL: Patient is in mild respiratory distress but is not using accessory muscle use. She is morbidly obese. VITAL SIGNS: Her temperature is 99.1 degrees Fahrenheit, pulse is 95 beats per minute, blood pressure 106/69, respirations are 20 per minute, 02 sats are 91% on BIPAP. HEENT: Head is atraumatic, normocephalic. Eyes: Pupils are equal, round, regular, reactive to light and accommodation. Extraocular movements are normal. There is no conjunctival pallor. There is no scleral icterus. Ears: Tympanic membranes are intact. External auditory canals are clear. Nose: There is no deviated nasal septum. There is no inflammation of the nasal mucous membranes. Mouth: Mucous membranes of the mouth are moist. Tongue is moist. There are no ulcers in the mouth. There is no bleeding from the gums. Throat: There is no redness of the oropharynx. There is no exudate. SKIN: There are no skin rashes. There is no petechia or ecchymosis. There are no skin lesions. NECK: Supple. There is no JVD. Carotids are equal. There is no bruit. There is no goiter. Trachea is central. LUNGS: Show bilateral wheezing and rhonchi. There is diminished air entry and prolonged expiration. There is hyperresonance on percussion. HEART: S1 and S2 are heard. There is no S3 gallop. There is no S4 gallop. There is a systolic murmur in the left sternal border and the apex. There is no rub. ABDOMEN: Soft, obese, nontender. There is no hepatosplenomegaly. EXTREMITIES: Femorals are diminished. There are no femoral bruits. Leg pulses are diminished. There is no pedal edema. CENTRAL NERVOUS SYSTEM: The patient does seem to have some weakness in the lower extremities. She is awake, alert and oriented x3 but a very bad historian. PSYCHIATRIC: The patient does not appear to be anxious or depressed. I cannot assess her judgment and insight. DIAGNOSTIC TEST RESULTS: The patient's chest x-ray shows no acute findings. There is no evidence of congestive heart failure or pneumonia. The patient's EKG done yesterday shows chaotic atrial mechanism or wandering atrial pacemaker with 3 different T-wave morphologies. There is LVH with IVCD, left axis deviation, and secondary repolarization changes. The patient's EKG done today shows chaotic atrial mechanism with a rate of 91 beats per minute. There is left anterior fascicular block. There is possible LVH with secondary repolarization changes. Cannot exclude abnormality probably ischemia of the anterolateral leads, but the patient has no chest pain. The patient's sodium is 141.9, potassium 3.9, chloride 105, CO2 31, BUN 24, creatinine 0.77, GFR is greater than 60, glucose is 87, the patient's calcium is 8.8, the patient's magnesium is 2.1. The patient's CPK-MB was negative, yesterday her troponin I was 0.014; today it is 0.088. TSH is 1.31, lactic acid was 1.7 yesterday. Her ABG this morning showed a pH of 7.39, PCO2 is 53.2, PO2 63.3, and O2 sats are 91.6 on FiO2 of 21%. Her dig level yesterday was 3.48; today is 1.95. The patient's white count is 7300, hemoglobin is 10, hematocrit is 30, the platelet count is 232,000. IMPRESSION/PLAN: 1. Bradycardia due to elevated dig level and hypoxemia. This has resolved. Also the patient was on Toprol XL and Cardizem which Cardizem can increase the patient's dig level. At present the patient's dig level is within normal limits; yesterday's was 3.48, today it is 1.95. Would recommend holding the dig, the Toprol XL and the Cardizem. Will restart the Cardizem later at smaller doses. 2. Hypoxic hypercapnic respiratory failure. The patient is on anti-COPD inhalers and also the patient is on BIPAP and oxygen. 3. Indeterminate troponin I secondary to hypoxemia and respiratory failure. No evidence of non-ST elevation NM. 4. Acute exacerbation of COPD. Continue her anti-COPD medication and the patient most likely has bronchitis. Would recommend antibiotics. 5. Acute bronchitis. 6. History of asthma. 7. Hyperkalemia on admission. Now resolved. 8. Hypertension. Blood pressure acceptable range. 9. Diabetes mellitus type 2 insulin-dependent. 10. History of paroxysmal atrial fibrillation. 11. Now patient in chaotic atrial mechanism/wandering atrial pacemaker. 12. Past history of MRSA pneumonia. 13. Morbid obesity. 14. Bedbound due to gait disorder. 15. Depression. 16. History of GERD. 17. Questionable CAD. 18. Questionable history of NM. 19. History of pulmonary embolism. Would recommend continuing the patient on Eliquis. NOTE: Her medications have been reviewed. Will strongly recommend starting the patient on steroids, antibiotics and start the patient on Eliquis in view of her previous pulmonary embolism and the patient's bedbound status and the patient's morbid obesity. NOTE: Forty minutes spent on this patient with more than 50% of the time spent on direct patient care and also reviewing the patient's medications and discussions with the attending physician on the patient and also coordination of care done with other caregivers on the case. Would also recommend a pulmonary consult. Will follow with you. Thanking you. DICTATING PHYSICIAN: SHANIKA BOWEN M.D. [id number] PHY#: [id number] ID: [id number] JOB#: [id number] ACCT: [id number] cc:SHANIKA BOWEN M.D. >
--- NOTE | 2016-11-25 17:28 | EKG REPORT ---
SEVERITY:- ABNORMAL ECG - SINUS RHYTHM LEFT ANTERIOR FASCICULAR BLOCK PROBABLE LVH WITH SECONDARY REPOL ABNRM ABNORMAL T, PROBABLE ISCHEMIA, ANT-LAT LEADS : Confirmed by: Inocencio Aguilar MD 25-Nov-2016 17:27:57
[2016-11-25] MEDS ORDERED: BUSPIRONE HCL 10 MG TABLET PO ONE (23:30)
[2016-11-26] MEDS: ACETAMINOPHEN 325 MG TABLET PO PRN ×2 (03:15→21:45)
[2016-11-26] MEDS: DOCUSATE SODIUM 100 MG CAPSULE PO SCH ×2 (03:15→18:04)
[2016-11-26] MEDS: HEPARIN SOD (PORCINE) 5,000 UNIT/ML 1 ML SYRINGE SUBCUT SCH (05:36)
[2016-11-26 06:14] LABS: ANION GAP 8 (5-19); BLOOD UREA NITROGEN 16 mg/dL (7-20); CALCIUM 8.9 mg/dL (8.4-10.2); CARBON DIOXIDE 29 mmol/L (22-30); CHLORIDE 103 mmol/L (98-107); CREATININE RESULT 0.78 mg/dL (0.52-1.25); DIGOXIN 1.78 ng/mL (0.8-2.0); GLUCOSE 139 mg/dL (75-110); POTASSIUM 3.6 mmol/L (3.6-5.0); SODIUM 139.8 mmol/L (137-145)
[2016-11-26 06:15] LABS: HEMATOCRIT 32.3 % (36.0-47.0); HEMOGLOBIN 10.8 g/dL (12.0-15.5); HGB HCT DIFFERENCE 0.1; MEAN CORPUSCULAR HEMOGLOBIN 29.6 pg (27.0-33.4); MEAN CORPUSCULAR HGB CONC 33.5 g/dL (32.0-36.0); MEAN CORPUSCULAR VOLUME 88 fl (80-97); RED BLOOD COUNT 3.65 10^6/uL (3.72-5.28); RED CELL DISTRIBUTION WIDTH 16.3 % (11.5-14.0); WHITE BLOOD COUNT 8.2 10^3/uL (4.0-10.5)
[2016-11-26 06:38] LABS: BASOPHILS % (MANUAL) 0 % (0-2); EOSINOPHILS % (MANUAL) 0 % (0-6); LYMPHOCYTES % (MANUAL) 22 % (13-45); NUCLEATED RED BLOOD CELLS 1 /100 WBC (0); TOTAL CELLS COUNTED 100
[2016-11-26 06:39] LABS: POLYCHROMASIA SLIGHT; TOXIC GRANULATION SLIGHT
[2016-11-26 06:40] LABS: ANISOCYTOSIS 1+; OVALOCYTES SLIGHT; POIKILOCYTOSIS SLIGHT
[2016-11-26] MEDS: IPRATROPIUM/ALBUTEROL 0.5-2.5 MG/3 ML AMPUL NEB SCH (08:51)
[2016-11-26] MEDS ORDERED: NITROGLYCERIN 0.4 MG/TAB 25 TAB/BOTTLE SL PRN (09:29)
[2016-11-26] MEDS ORDERED: PROMETHAZINE HCL 25 MG TABLET PO PRN (09:29)
[2016-11-26] MEDS ORDERED: HYDROCODONE/ACETAMINOPHEN 5-325 MG TABLET PO PRN (09:29)
[2016-11-26] MEDS ORDERED: DIPHENHYDRAMINE HCL 25 MG CAPSULE PO PRN (09:29)
--- NOTE | 2016-11-26 09:29 | PDOC PROGRESS REPORT ---
Subjective Progress Note for:: 11/26/16 Subjective:: PORSHA WALDRON is a 71 year old female with a past medical history of MRSA pneumonia, Pseudomonas UTI, obstructive sleep apnea, COPD, morbid obesity, and gait disorder who is a long-term [facility] resident and found to have bradycardia and lethargy she is brought to the emergency room for evaluation where she is found to have a digoxin level of 3, heart rate of 40 which improved to 65 without intervention, excessive lethargy with twitching. Cardiology is consulted for management recommending telemetry monitoring. She was referred to the hospitalist for admission. She is found by hospitalist unable to stay awake and twitching evaluation of her chemistry reveals a bicarb of 34 she is started on BiPAP. 11/25 - This morning she is awake and alert. She is off BiPAP. She has a loose coarse cough. 11/26 -She is receiving breathing treatments. Her breath sounds are much improved. Admission chest x-ray of 11/24/2016 showed no acute changes. He has been afebrile. White blood count is normal. Her main complaint is of pain all over. She requests her OxyContin. The reason for admission was bradycardia related to digitalis toxicity. Digoxin 0.25 mg daily has been on hold. The digoxin level is now within treatment range. Heart rate this morning is 105. Will resume digoxin at a lower dose 0.125 mg daily. Physical Exam Vital Signs: Temp Pulse Resp BP Pulse Ox 98.1 F 105 H 20 166/86 H 97 11/26/16 08:36 11/26/16 08:36 11/26/16 08:36 11/26/16 08:36 11/26/16 08:36 Intake & Output 11/25/16 11/26/16 11/27/16 06:59 06:59 06:59 Intake Total 5 600 Output Total 0 1 Balance 5 599 Weight 102.9 kg 101.5 kg Additional comments: General appearance: PRESENT: no acute distress, morbidly obese, other - loose coarse cough Head exam: PRESENT: atraumatic, normocephalic Eye exam: PRESENT: conjunctiva pink, EOMI, PERRLA. ABSENT: scleral icterus Ear exam: PRESENT: normal external ear exam Mouth exam: PRESENT: moist, tongue midline Respiratory exam: PRESENT: Breath sounds much improved with decreased wheeze and better air movement. No rhonchus. Cardiovascular exam: PRESENT: RRR. ABSENT: diastolic murmur, rubs, systolic murmur Pulses: PRESENT: normal dorsalis pedis pul GI/Abdominal exam: PRESENT: normal bowel sounds, soft, other - obese. ABSENT: distended, guarding, mass, organolmegaly, rebound, tenderness Rectal exam: PRESENT: deferred Extremities exam: PRESENT: full ROM. ABSENT: calf tenderness, clubbing, pedal edema Neurological exam: PRESENT: alert, awake, oriented to person, oriented to place , oriented to time, oriented to situation, CN II-XII grossly intact. ABSENT: motor sensory deficit Psychiatric exam: PRESENT: anxious. ABSENT: homicidal ideation, suicidal ideation Skin exam: PRESENT: dry, intact, warm. ABSENT: cyanosis, rash Results Laboratory Results: 11/26/16 05:07 11/26/16 05:07 11/26/16 11/26/16 05:07 05:07 WBC 8.2 RBC 3.65 L Hgb 10.8 L Hct 32.3 L MCV 88 MCH 29.6 MCHC 33.5 RDW 16.3 H Plt Count 246 Seg Neutrophils % Not Reportable Lymphocytes % Not Reportable Monocytes % Not Reportable Eosinophils % Not Reportable Basophils % Not Reportable Absolute Neutrophils Not Reportable Absolute Lymphocytes Not Reportable Absolute Monocytes Not Reportable Absolute Eosinophils Not Reportable Absolute Basophils Not Reportable Sodium 139.8 Potassium 3.6 Chloride 103 Carbon Dioxide 29 Anion Gap 8 BUN 16 Creatinine 0.78 Est GFR ( Amer) > 60 Est GFR (Non-Af Amer) > 60 Glucose 139 H Calcium 8.9 Impressions: Chest X-Ray 11/24/16 17:29 IMPRESSION: No significant interval change. No acute findings. Other findings as noted above Assessment & Plan - Diagnosis (1) Bradycardia Is this a current diagnosis for this admission?: YesPlan: Resolved. (2) Digoxin toxicity Qualifiers: Encounter type: initial encounter Injury intent: accidental or unintentional Qualified Code(s): T46.0X1A - Poisoning by cardiac- stimulant glycosides and drugs of similar action, accidental (unintentional), initial encounter Is this a current diagnosis for this admission?: YesPlan: Digoxin level now within treatment range. Resume digoxin at a lower dose 0.125 mg daily. (3) Hypercapnic respiratory failure Qualifiers: Chronicity: acute Qualified Code(s): J96.02 - Acute respiratory failure with hypercapnia Is this a current diagnosis for this admission?: YesPlan: She is now off BiPAP and does not appear to require it any further. Breath sounds much improved with nebulized bronchodilator treatments. (4) COPD with acute bronchitis Is this a current diagnosis for this admission?: YesPlan: She has remained afebrile her white blood count is normal. Chest x-ray of 2016 shows no acute disease. Sputum culture of 11/25/2016 is pending. Will continue off antibiotics for now. (5) Morbid obesity with BMI of 40.0-44.9, adult Is this a current diagnosis for this admission?: Yes
[2016-11-26] MEDS ORDERED: ASPIRIN 81 MG TABLET, ENT COATED PO SCH (10:00)
[2016-11-26] MEDS ORDERED: DIGOXIN 0.125 MG TABLET PO SCH (10:00)
[2016-11-26] MEDS ORDERED: FENTANYL 25 MCG/HR PATCH.TD72 TD SCH (10:00)
[2016-11-26] MEDS ORDERED: METOPROLOL SUCCINATE 25 MG TAB.SR.24H PO SCH (10:00)
[2016-11-26] MEDS ORDERED: (PENDING PHARMACY ID) (Potassium Chloride [K-Tab Er] 40 MEQ) PO SCH (10:00)
[2016-11-26] MEDS: PREGABALIN 100 MG CAPSULE PO SCH ×2 (11:05→21:45)
[2016-11-26] MEDS: POTASSIUM CHLORIDE 10 MEQ TABLET.SA PO SCH (11:06)
[2016-11-26] MEDS: DULOXETINE HCL 30 MG CAPSULE.DR PO SCH (11:06)
[2016-11-26] MEDS: RANOLAZINE 500 MG TAB.SR.12H PO SCH ×2 (11:07→21:44)
[2016-11-26] MEDS: FUROSEMIDE 40 MG TABLET PO SCH (11:08)
[2016-11-26] MEDS: PREDNISONE 20 MG TABLET PO SCH ×2 (11:08→18:03)
[2016-11-26] MEDS: FAMOTIDINE 20 MG TABLET PO SCH ×2 (11:10→18:04)
[2016-11-26] MEDS: BUSPIRONE HCL 10 MG TABLET PO SCH ×2 (11:10→18:03)
[2016-11-26] MEDS: LACTULOSE SYRUP 20 GM/30 ML UDCUP PO SCH ×2 (11:11→18:04)
[2016-11-26] MEDS: INSULIN DETEMIR 100 UNIT/ML 3 ML PEN SUBCUT SCH (11:12)
[2016-11-26] MEDS: TRAMADOL HCL 50 MG TABLET PO PRN ×2 (11:26→18:03)
[2016-11-26] MEDS: IPRATROPIUM BROMIDE 0.02% NEB 0.5 MG/2.5 ML AMPUL NEB SCH ×4 (11:41→23:50)
[2016-11-26] MEDS ORDERED: BUDESONIDE NEB 0.5 MG/2 ML AMPUL NEB SCH (12:00)
[2016-11-26] MEDS ORDERED: DILTIAZEM HCL 60 MG TABLET PO SCH (12:00)
[2016-11-26] MEDS: DILTIAZEM HCL 60 MG TABLET PO SCH ×2 (14:31→21:45)
--- NOTE | 2016-11-26 16:33 | PROGRESS NOTE E ---
Progress Note NAME: PORSHA WALDRON : 1945 AGE: 71Y DATE: 11/26/2016 ROOM: 313 Note, that the patient was seen from 11:45 a.m. to 12:15 p.m. SUBJECTIVE: The patient states that her shortness of breath is slightly improved, but she is still having cough some scanty yellowish green sputum. She denies any chest pain or discomfort. The patient's monitor shows that the patient is multifocal atrial tachycardia (3 different *------* morphologies). There is no recurrence of atrial fibrillation. There is no bradycardia. The patient has chronic orthopnea, but no PND. The patient has no leg swelling. Note, the patient is bedridden. OBJECTIVE: GENERAL: On examination, the patient is morbidly obese. She is well groomed. VITAL SIGNS: She is afebrile with a temperature of 98.2 degrees Fahrenheit orally, pulse is 102 beats per minute with the monitor showing that the patient is in multifocal atrial tachycardia, her blood pressure is 163/81, respirations are 18 per minute, O2 sats are 100% on 2 L nasal cannula. HEAD: Atraumatic, normocephalic. EYES: Pupils are equal, round, regular, and reactive to light and accommodation. Extraocular movements are normal. There is no conjunctival pallor. There is no sclerae icterus. EARS: Tympanic membranes are intact. External auditory canals are clear. NOSE: There is no deviated nasal septum. There is no inflammation of the nasal mucous membranes. MOUTH: Mucous membranes of the mouth are moist. Tongue is moist. There are no ulcers in the mouth. There is no bleeding from the gums. THROAT: There is no redness of the oropharynx. There are no exudates. SKIN: There are no skin rashes. There is no petechiae or ecchymosis. There are no skin lesions. NECK: Supple. There is no JVD. Carotids are equal. There are no bruits. There is no goiter. Trachea is central. LUNGS: Lungs show bilateral rhonchi still present, but no wheezing. There is diminished air entry with prolonged expiration. There is hyperresonance on percussion. HEART: S1 and S2 are heard. There is no S3 gallop. There is no S4 gallop. There is a systolic murmur in the left sternal border and the apex. There is no rub. ABDOMEN: Soft, obese, and nontender. There is no hepatosplenomegaly. The bowel sounds are well heard. EXTREMITIES: Femorals are diminished. There are no femoral bruits. Leg pulses are diminished. There is no pedal edema. There is no DVT or cellulitis. There is no cyanosis or clubbing. CENTRAL NERVOUS SYSTEM: The patient does seem to have some weakness in the lower extremities. She is awake, alert, and oriented x3, but very bad historian and very hard of hearing. PSYCHIATRIC: The patient does not appear to be anxious or depressed. Her judgment and insight seem to be intact. MONITOR: Note that the patient's monitor shows multifocal atrial tachycardia. INTAKE/OUTPUT: The patient's intake and output are not accurate. DIAGNOSTIC DATA: The patient's white count is 8,200; hemoglobin is 10.8; hematocrit is 32.3; platelet count is 246,000. The patient's dig level is 1.78. The patient's sodium is 139.8, potassium is 3.6, chloride is 103, CO2 is 29. The patient's BUN is 16, creatinine is 0.78, and GFR is greater than 60, glucose is 136, calcium is 8.9. ASSESSMENT AND PLAN: 1. BRADYCARDIA DUE TO ELEVATED DIG LEVEL AND HYPOXEMIA; THIS HAS RESOLVED. Also, the patient was on Toprol XL and Cardizem, which Cardizem can increase the patient's dig level. At present, the patient's dig level is within normal limits, but would restart the patient on Cardizem only and would hold off on the metoprolol until the patient's lung function improves, also would stop the patient's digoxin since digoxin has been causing multifocal atrial tachycardia. 2. HYPOXIC HYPERCAPNIC RESPIRATORY FAILURE. The patient is on anti-COPD inhalers and also the patient is presently on *------* inhalers with good saturation on nasal cannula oxygen. 3. INDETERMINATE TROPONIN-I SECONDARY TO HYPOXEMIA AND RESPIRATORY FAILURE. NO EVIDENCE OF DFJ-OL-COSRDEBKM WI. 4. ACUTE EXACERBATION OF COPD. Continue anti-COPD medication. 5. ACUTE BRONCHITIS. I would recommend antibiotics. 6. HISTORY OF ASTHMA. 7. HYPERKALEMIA ON ADMISSION. NOW RESOLVED. 8. HYPERTENSION. BLOOD PRESSURE IS SLIGHTLY ELEVATED. 9. DIABETES MELLITUS TYPE 2, INSULIN DEPENDENT. 10. HISTORY OF PAROXYSMAL ATRIAL FIBRILLATION. 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 AT PRESENT, THE PATIENT IS IN MULTIFOCAL ATRIAL TACHYCARDIA. 12. PAST HISTORY OF MRSA PNEUMONIA. NOTE THAT THE PATIENT'S SPUTUM CULTURE SHOWS GRAM-POSITIVE COCCI IN CLUSTERS. 13. MORBID OBESITY. 14. BED BOUND DUE TO GAIT DISORDER. 15. DEPRESSION. 16. HISTORY OF GERD. 17. QUESTIONABLE CAD. THE PATIENT DENIES. 18. QUESTIONABLE HISTORY OF WI. THE PATIENT DENIES. 19. HISTORY OF PULMONARY EMBOLISM. Would recommend continuing the patient on Eliquis. Since the patient is bedridden, she is high risk for this. FURTHER RECOMMENDATIONS: Will see if the Cardizem will lower the patient's blood pressure, otherwise may have to add an CHARLIE inhibitor in view of the patient being a diabetic. Note, I strongly recommend antibiotics in spite of the white count being normal. The patient has wheezing and she is bringing up yellowish-green sputum. Note that the patient had an echo only a month ago, which showed LV ejection fraction being low normal. TIME SPENT: Note, 30 minutes were spent on this patient with more than 50% of that time spent in direct patient care, and medications were reviewed and medications were adjusted. Note, the case was also discussed with the hospitalist attending and the nurse taking care of the patient. This case did need highly complex medical decision making in view of choice of the medications to control the patient's heart rate. Will follow with you. I strongly recommend antibiotics, as mentioned earlier, can use oral antibiotics. Thanking you. DICTATING PHYSICIAN: SHANIKA BOWEN M.D. [id number] PHY#: [id number] ID: [id number] JOB#: [id number] ACCT: [id number] cc: >
[2016-11-26] MEDS: APIXABAN 2.5 MG TABLET PO SCH (17:59)
[2016-11-26] MEDS: INSULIN LISPRO 100 UNIT/ML 3 ML VIAL SUBCUT PRN ×2 (18:00→21:52)
[2016-11-26] MEDS: BUDESONIDE NEB 0.5 MG/2 ML AMPUL NEB SCH (20:00)
[2016-11-27] MEDS: IPRATROPIUM BROMIDE 0.02% NEB 0.5 MG/2.5 ML AMPUL NEB SCH ×4 (03:54→16:22)
[2016-11-27] MEDS: DILTIAZEM HCL 60 MG TABLET PO SCH ×2 (05:30→13:01)
[2016-11-27] MEDS: BUDESONIDE NEB 0.5 MG/2 ML AMPUL NEB SCH (09:02)
[2016-11-27] MEDS: BUSPIRONE HCL 10 MG TABLET PO SCH ×2 (10:22→17:34)
[2016-11-27] MEDS: LACTULOSE SYRUP 20 GM/30 ML UDCUP PO SCH ×2 (10:22→17:38)
[2016-11-27] MEDS: RANOLAZINE 500 MG TAB.SR.12H PO SCH (10:23)
[2016-11-27] MEDS: DULOXETINE HCL 30 MG CAPSULE.DR PO SCH (10:23)
[2016-11-27] MEDS: DOCUSATE SODIUM 100 MG CAPSULE PO SCH ×2 (10:23→17:34)
[2016-11-27] MEDS: POTASSIUM CHLORIDE 10 MEQ TABLET.SA PO SCH (10:23)
[2016-11-27] MEDS: FUROSEMIDE 40 MG TABLET PO SCH (10:24)
[2016-11-27] MEDS: FAMOTIDINE 20 MG TABLET PO SCH ×2 (10:24→17:34)
[2016-11-27] MEDS: TRAMADOL HCL 50 MG TABLET PO PRN ×2 (10:26→16:20)
[2016-11-27] MEDS: PREGABALIN 100 MG CAPSULE PO SCH (10:27)
[2016-11-27] MEDS: APIXABAN 2.5 MG TABLET PO SCH ×2 (10:27→17:35)
[2016-11-27] MEDS: INSULIN DETEMIR 100 UNIT/ML 3 ML PEN SUBCUT SCH (10:28)
[2016-11-27] MEDS: PREDNISONE 20 MG TABLET PO SCH ×2 (10:28→17:34)
--- NOTE | 2016-11-27 11:07 | PDOC TRANSFER SUMMARY ---
General - Admit/Disc Date/PCP Admission Date/Primary Care Provider: 11/24/16 20:45 Discharge Date: 11/27/16 - Discharge Diagnosis (1) Bradycardia Is this a current diagnosis for this admission?: YesSummary: 2/2 DIGOXIN TOXICITY EXACERBATED BY DUAL AV FRANTZ BLOCKADE. resolved with cessation of digoxin and toprol, cardiology recommending titrate cardizem to effect. f/u with dr wagoner in 2 wks for BP and rate control. (2) Digoxin toxicity Is this a current diagnosis for this admission?: YesSummary: per dr. wagoner will d/c digoxin (3) Acute on chronic respiratory failure with hypoxia and hypercapnia Is this a current diagnosis for this admission?: YesSummary: resolved and back to baseline 2L/min via NC. (4) History of MRSA infection Is this a current diagnosis for this admission?: YesSummary: sputum still growing MRSA but no evidence for acute infection with clear lungs, no leukocytosis and no fever. she is colonized and will always grow MRSA when sputum is colonized, recommending withholding Abx until clear clinical indicators of active infection. she is in agreement. - Additional Information Resuscitation Status: Full Code Discharge Diet: Cardiac Discharge Activity: Slowly Increase Activity, Supervised Activity Home Medications: Acetaminophen [Tylenol 325 mg Tablet] 650 mg PO Q4HP PRN 11/25/16 Albuterol Sulfate [Albuterol Sulfate 2.5mg/3 mL] 3 ml NEB RTQ2HP PRN 11/25/16 Aspirin [Ecotrin 81 mg EC Tablet] 81 mg PO DAILY 11/25/16 Budesonide [Pulmicort Neb 0.5 mg/2 ml Ampul] 2 ml NEB RTQ4 11/25/16 Buspirone HCl [Buspar 5 mg Tablet] 5 mg PO BID 11/25/16 Dextromethorphan HBr [Delsym] 10 ml PO Q12HP PRN 11/25/16 Diphenhydramine HCl [Benadryl 25 mg Capsule] 25 mg PO Q6HP PRN 11/25/16 Dronabinol [Marinol 2.5 mg Capsule] 2.5 mg PO BID 11/25/16 Duloxetine HCl 90 mg PO DAILY 11/25/16 Famotidine [Pepcid 20 mg Tablet] 20 mg PO BID 11/25/16 Furosemide [Lasix] 40 mg PO DAILY 11/25/16 Guaifenesin [Mucinex] 1,200 mg PO Q12 11/25/16 Hydrocodone/Acetaminophen [Aydlett 5-325 mg Tablet] 1 tab PO Q4HP PRN 11/25/16 Insulin Detemir [Levemir Insulin 100 units/mL] 30 units SQ DAILY 11/25/16 Ipratropium [place] [Atrovent 0.02% Neb 0.5 mg/2.5 ml Ampul] 2.5 ml NEB RTQ4 Lactulose [Cephulac Syrup 20 gm/30 ml Udcup] 30 ml PO BID 11/25/16 Levalbuterol HCl [Xopenex Neb 1.25 mg/3 ml Ampul] 3 ml NEB RTQ4 11/25/16 Linaclotide [Linzess 145 Mcg Capsule] 145 mg PO QAM 11/25/16 Nitroglycerin [Nitrostat 0.4 mg (1/150 Gr) Tabs 25/Bottle] 0.4 mg PO Q5MP PRN Omeprazole 20 mg PO QAM 11/25/16 Potassium Chloride [K-Tab ER] 40 meq PO DAILY 11/25/16 Prednisone [Deltasone 20 mg Tablet] 20 mg PO BID 11/25/16 Pregabalin [Lyrica 100 mg Capsule] 100 mg PO Q12 11/25/16 Promethazine HCl [Phenergan 25 mg Tablet] 25 mg PO Q6HP PRN 11/25/16 Ranolazine [Ranexa 500 mg Tab.sr] 500 mg PO Q12 11/25/16 Apixaban [Eliquis 2.5 mg Tablet] 2.5 mg PO BID tablet 11/27/16 Diltiazem HCl [Cardizem 60 mg Tablet] 60 mg PO Q8 tablet 11/27/16 Fentanyl [Duragesic 25 mcg/hr Transdermal Patch] 1 patch TD Q3DAYS #2 patch.td72 11/27/16 Tramadol HCl [Ultram 50 mg Tablet] 50 mg PO Q6HP PRN #7 tablet 11/27/16 History of Present Illness Admission Date/PCP: 11/24/16 20:45 History of Present Illness: presented to the hospital with bradycardia, fatigue and altered mental state; found to be digoxin toxic. Hospital Course Hospital Course: PORSHA WALDRON is a 71 year old female with a past medical history of MRSA pneumonia, Pseudomonas UTI, obstructive sleep apnea, COPD, morbid obesity, and gait disorder who is a long-term long-term resident and found to have bradycardia and lethargy she is brought to the emergency room for evaluation where she is found to have a digoxin level of 3, heart rate of 40 which improved to 65 without intervention, excessive lethargy with twitching. Cardiology is consulted for management recommending telemetry monitoring. She was referred to the hospitalist for admission. She is found by hospitalist unable to stay awake and twitching evaluation of her chemistry reveals a bicarb of 34 she is started on BiPAP. 11/25 - This morning she is awake and alert. She is off BiPAP. She has a loose coarse cough. 11/26 -She is receiving breathing treatments. Her breath sounds are much improved. Admission chest x-ray of 11/24/2016 showed no acute changes. He has been afebrile. White blood count is normal. Her main complaint is of pain all over. She requests her OxyContin. The reason for admission was bradycardia related to digitalis toxicity. Digoxin 0.25 mg daily has been on hold. The digoxin level is now within treatment range. Heart rate this morning is 105. Will resume digoxin at a lower dose 0.125 mg daily. cardio is recommending withdrawing digoxin altogether and holding toprol until her lung function improves and absolutely needed for HR or BP control. she is stable at this point on the cardizem only, further titration of her regimen per cardiology coordinated with her PCP. she is stable for d/c back to SNF at this point. Physical Exam Vital Signs: Temp Pulse Resp BP Pulse Ox 98.5 F 74 18 136/65 H 99 11/27/16 06:59 11/27/16 09:02 11/27/16 09:02 11/27/16 06:59 11/27/16 09:02 Intake & Output 11/26/16 11/27/16 11/28/16 06:59 06:59 06:59 Intake Total 600 1658 Output Total 1 Balance 599 1658 Weight 101.5 kg 100.7 kg General appearance: PRESENT: no acute distress, morbidly obese Head exam: PRESENT: atraumatic, normocephalic Eye exam: PRESENT: EOMI. ABSENT: conjunctival injection, scleral icterus Neck exam: ABSENT: JVD, tenderness Respiratory exam: PRESENT: clear to auscultation elia, unlabored. ABSENT: accessory muscle use Cardiovascular exam: PRESENT: irregular rhythm - rate controlled Pulses: PRESENT: normal radial pulses Vascular exam: PRESENT: normal capillary refill GI/Abdominal exam: PRESENT: normal bowel sounds, soft. ABSENT: tenderness Neurological exam: PRESENT: alert, awake, oriented to person, oriented to place , oriented to time, oriented to situation Psychiatric exam: PRESENT: appropriate affect, normal mood Skin exam: PRESENT: dry, warm Results Laboratory Results: 11/26/16 05:07 11/26/16 05:07 11/25/16 10:30 Sputum Gram Stain - Final Impressions: Chest X-Ray 11/24/16 17:29 IMPRESSION: No significant interval change. No acute findings. Other findings as noted above Status: Imported from PACS Transfer Plan - Disposition Transfer Plan: as outlined above; continue cardizem only Qualifiers PATEINT BEING DISCHARGED WITH ANY OF THE FOLLOWING DIAGNOSIS?: No VTE patient discharged on overlapping Therapy?: Yes
[2016-11-27 12:26] VITALS: BP 139/74
[2016-11-27] MEDS: INSULIN LISPRO 100 UNIT/ML 3 ML VIAL SUBCUT PRN ×2 (12:29→17:37)
[2016-11-27] MEDS: ACETAMINOPHEN 325 MG TABLET PO PRN (13:02)
== END 2016-11-27 18:21 | DRG 917 ==
LOC: ER 16:51 → EH 20:45 → UNDOADMIN 21:08 → EH 21:08 → 3W 11-25 00:27
PROVIDERS: ADMIT Internal Medicine; ATTEND Internal Medicine
PROC: 5A09457 Assistance with Respiratory Ventilation, 24-96 Consecutive Hours, Continuous Positive Airway Pressure (ICD-10-PCS; principal; 2016-11-24)
DX: T46.0X1A Poisoning by cardiac-stimulant glycosides and drugs of similar action, accidental (unintentional), initial encounter (principal); J96.02 Acute respiratory failure with hypercapnia; J96.01 Acute respiratory failure with hypoxia; J44.0 Chronic obstructive pulmonary disease with (acute) lower respiratory infection; Z68.41 Body mass index [BMI] 40.0-44.9, adult; J44.1 Chronic obstructive pulmonary disease with (acute) exacerbation; I50.32 Chronic diastolic (congestive) heart failure; I11.0 Hypertensive heart disease with heart failure; I48.0 Paroxysmal atrial fibrillation; J20.9 Acute bronchitis, unspecified; R00.1 Bradycardia, unspecified; Y92.129 Unspecified place in nursing home as the place of occurrence of the external cause; Z86.14 Personal history of Methicillin resistant Staphylococcus aureus infection; G47.33 Obstructive sleep apnea (adult) (pediatric); E66.01 Morbid (severe) obesity due to excess calories; R26.9 Unspecified abnormalities of gait and mobility; E11.9 Type 2 diabetes mellitus without complications; K21.9 Gastro-esophageal reflux disease without esophagitis; E87.6 Hypokalemia; K44.9 Diaphragmatic hernia without obstruction or gangrene; M79.7 Fibromyalgia; D64.9 Anemia, unspecified; M19.90 Unspecified osteoarthritis, unspecified site; F32.9 Major depressive disorder, single episode, unspecified; Z90.710 Acquired absence of both cervix and uterus; Z86.711 Personal history of pulmonary embolism; I25.2 Old myocardial infarction; Z22.322 Carrier or suspected carrier of Methicillin resistant Staphylococcus aureus; Z79.4 Long term (current) use of insulin; Z79.899 Other long term (current) drug therapy; Z88.2 Allergy status to sulfonamides; Z88.8 Allergy status to other drugs, medicaments and biological substances; R79.89 Other specified abnormal findings of blood chemistry; Z90.49 Acquired absence of other specified parts of digestive tract; Z74.01 Bed confinement status
CPT/HCPCS: 36415; 36600; 71010; 80048; 80053; 80162; 81001; 82550; 82553; 82803; 82962; 83605; 83735; 84443; 84484; 85025; 87070; 87077; 87186; 87205; 93005; 93010; 94660; 99285; J1644; J1815; J3490; J7512; J7620

== ENCOUNTER 2017-01-01 13:28 | Inpatient (IN) | payer MEDICARE, MEDICAID ==
[2017-01-01 13:52] LABS: VENOUS BLOOD BASE EXCESS 2.4 mmol/L; VENOUS BLOOD HCO3 28.6 mmol/L (20-32); VENOUS BLOOD PCO2 51.4 mmHg (35-63); VENOUS BLOOD PH 7.36 (7.30-7.42)
[2017-01-01 13:53] LABS: HEMOGLOBIN 11.5 g/dL (12.0-15.5); HGB HCT DIFFERENCE -0.5; MEAN CORPUSCULAR HEMOGLOBIN 29.4 pg (27.0-33.4); MEAN CORPUSCULAR VOLUME 89 fl (80-97); RED BLOOD COUNT 3.92 10^6/uL (3.72-5.28); RED CELL DISTRIBUTION WIDTH 15.4 % (11.5-14.0); WHITE BLOOD COUNT 11.2 10^3/uL (4.0-10.5)
--- NOTE | 2017-01-01 14:05 | ER Document Report ---
ED Respiratory Problem - General Chief Complaint: Shortness Of Breath Stated Complaint: SHORTNESS OF BREATH Time Seen by Provider: 01/01/17 14:00 Mode of Arrival: Medic - friendly Information source: Patient, Outside Facility Records TRAVEL OUTSIDE OF THE [place] IN LAST 30 DAYS: No - HPI Patient complains to provider of: Cough, Short of breath Onset: Other - 3 WEEKS Duration: Continuous Initiating Event: Other - UNKNOWN Quality of pain: Dull Context: Hx COPD Chest pain/discomfort: Left Cough: Productive Sputum amount: Moderate Sputum color: Yellow Sputum consistency: Mucoid At home treatment: Bronchodilators, Oral steroids, Oxygen Associated symptoms: Chest pain/discomfort, Chills, Fever - TO 101.5 TODAY Similar symptoms previously: Yes - NOT RECENT Recently seen / treated by doctor: No - ROUTINE CARE @ [facility] (DR. HODGSON) - Related Data Allergies/Adverse Reactions: Sulfa (Sulfonamide Antibiotics) Allergy (Intermediate, Verified 11/24/16 17:35) adhesive tape Allergy (Verified 11/24/16 17:35) atorvastatin calcium [From Lipitor] Allergy (Verified 11/24/16 17:35) celecoxib [From Celebrex] Allergy (Verified 11/24/16 17:35) Past Medical History - General Information source: Patient, [facility] Records - Social History Smoking Status: Never Smoker Cigarette use (# per day): No Chew tobacco use (# tins/day): No Frequency of alcohol use: None Drug Abuse: None Lives with: Long Term - [facility] Family History: Arthritis, CAD, CVA, DM, Hypertension Patient has suicidal ideation: No Patient has homicidal ideation: No - Past Medical History Cardiac Medical History: Reports: Hx Atrial Fibrillation, Hx Congestive Heart Failure - Diastolic dysfunction, Hx Heart Attack, Hx Hypertension - essential, Hx Pulmonary Embolism, Hx Heart Murmur Denies: Hx Coronary Artery Disease, Hx DVT, Hx Hypercholesterolemia, Hx Peripheral Vascular Disease Pulmonary Medical History: Reports: Hx Asthma, Hx Bronchitis, Hx COPD, Hx Pneumonia - Recurrent MRSA pneumonia., Hx Sleep Apnea - Uses C Pap Denies: Hx Tuberculosis Neurological Medical History: Denies: Hx Seizures Endocrine Medical History: Reports: Hx Diabetes Mellitus Type 2. Denies: Hx Diabetes Mellitus Type 1, Hx Hyperthyroidism, Hx Hypothyroidism Renal/ Medical History: Reports: Hx Renal Insufficiency. Denies: Hx Peritoneal Dialysis Malignancy Medical History: Reports: None GI Medical History: Reports: Hx Gastroesophageal Reflux Disease, Hx Hiatal Hernia. Denies: Hx Cirrhosis, Hx Hepatitis Musculoskeltal Medical History: Reports Hx Arthritis, Reports Hx Fibromyalgia, Reports Hx Gout, Reports Hx Muscle Weakness Skin Medical History: Denies Hx Eczema, Denies Hx Psoriasis Psychiatric Medical History: Reports: Hx Anxiety, Hx Depression Infectious Medical History: Reports: Hx MRSA. Denies: Hx Hepatitis Past Surgical History: Reports: Hx Appendectomy, Hx Cholecystectomy, Hx Hysterectomy, Hx Orthopedic Surgery - Multiple left hip procedures, 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 - Immunizations Hx Diphtheria, Pertussis, Tetanus Vaccination: Yes Hx Pneumococcal Vaccination: 05/20/13 Review of Systems - Review of Systems Constitutional: See HPI EENT: No symptoms reported Cardiovascular: No symptoms reported Respiratory: See HPI Gastrointestinal: Nausea Genitourinary: No symptoms reported Female Genitourinary: Post menopausal Musculoskeletal: No symptoms reported Skin: Other - ECCHYMOSES Hematologic/Lymphatic: Easy bruising Neurological/Psychological: No symptoms reported Physical Exam - Vital signs Vitals: Resp 22 H 01/01/17 13:30 Interpretation: Tachypneic, Febrile - General General appearance: Appears well, Alert In distress: None - HEENT Head: Normocephalic Eyes: Normal Conjunctiva: Normal Ears: Normal Nasal: Normal Mouth/Lips: Normal Mucous membranes: Normal Pharynx: Normal - Respiratory Respiratory status: No respiratory distress Chest status: Nontender Breath sounds: Productive cough, Rhonchi - FEW, SCATTERED. No: Rales, Wheezing - Cardiovascular Rhythm: Irregularly irregular Heart sounds: Normal auscultation Murmur: No - Abdominal Inspection: Morbidly Obese Bowel sounds: Normal - Extremities General upper extremity: Normal inspection General lower extremity: Edema - LEFT (CHRONIC) - Neurological Neuro grossly intact: Yes Cognition: Normal Orientation: AAOx4 - Psychological Associated symptoms: Normal affect, Normal mood - Skin Skin Temperature: Warm Skin Moisture: Dry Skin Color: Ecchymosis - ON FOREARMS Skin Turgor: Elastic Course - Vital Signs Vital signs: Temp Pulse Resp BP Pulse Ox 98.8 F 22 H 140/78 H 97 01/01/17 13:45 01/01/17 13:45 01/01/17 13:45 01/01/17 13:45 - Laboratory Result Diagrams: 01/01/17 13:40 01/01/17 13:40 Laboratory results interpreted by me: 01/01/17 01/01/17 13:40 13:40 WBC 11.2 H Hgb 11.5 L Hct 35.0 L RDW 15.4 H Seg Neuts % (Manual) 90 H Band Neutrophils % 1 L Lymphocytes % (Manual) 5 L Monocytes % (Manual) 1 L Metamyelocytes % 2 H Abs Neuts (Manual) 10.4 H Sodium 135.9 L BUN 29 H Est GFR ( Amer) 56 L Est GFR (Non-Af Amer) 46 L Glucose 257 H Direct Bilirubin 0.5 H - Diagnostic Test Radiology reviewed: Image reviewed, Reports reviewed - EKG Interpretation by Me EKG shows normal: Sinus rhythm, [place], Intervals. abnormal: QRS Complexes Rate: Normal Rhythm: NSR, APC's [place]/QRS: LAHB/LAFB Voltage: Consistant with LVH When compared to previous EKG there are: Changes noted - T ABNLS. RESOLVED - Consults DR. VERDUGO Time consulted: 14:50 Consulted provider: will come to ER Discharge - Discharge Clinical Impression: COPD with acute bronchitis, Paroxysmal atrial fibrillation with RVR, Morbid obesity with BMI of 40.0-44.9, adult Fever Qualifiers: Fever type: unspecified Qualified Code(s): R50.9 - Fever, unspecified Condition: Fair Disposition: ADMITTED INPATIENT Admitting Provider: Hospitalist Unit Admitted: [facility]
[2017-01-01 14:09] LABS: ALANINE AMINOTRANSFERASE 37 U/L (9-52); ALBUMIN 3.6 g/dL (3.5-5.0); ALKALINE PHOSPHATASE 111 U/L (38-126); ANION GAP 12 (5-19); ASPARTATE AMINO TRANSFERASE 17 U/L (14-36); BILIRUBIN,DIRECT 0.5 mg/dL (0.0-0.4); BILIRUBIN,TOTAL 0.8 mg/dL (0.2-1.3); BLOOD UREA NITROGEN 29 mg/dL (7-20); CALCIUM 9.2 mg/dL (8.4-10.2); CARBON DIOXIDE 26 mmol/L (22-30); CHLORIDE 98 mmol/L (98-107); CREATININE RESULT 1.15 mg/dL (0.52-1.25); GLUCOSE 257 mg/dL (75-110); POTASSIUM 4.6 mmol/L (3.6-5.0); SODIUM 135.9 mmol/L (137-145); TOTAL PROTEIN 6.7 g/dL (6.3-8.2)
--- NOTE | 2017-01-01 14:10 | RADIOLOGY REPORT (SQ) ---
EXAM DESCRIPTION: CHEST SINGLE VIEW COMPLETED DATE/TIME: 01/01/2017 1:56 pm REASON FOR STUDY: bed 1 sepsis protocol COMPARISON: 11/24/2016. NUMBER OF VIEWS: One view. TECHNIQUE: Single frontal radiographic view of the chest acquired. LIMITATIONS: None. FINDINGS: LUNGS AND PLEURA: Mild vascular congestion. No definitive pneumonia. MEDIASTINUM AND HILAR STRUCTURES: No masses. Contour normal. HEART AND VASCULAR STRUCTURES: Cardiac enlargement, stable. BONES: Osteopenic. Left shoulder DJD. Chronic deficiency in the right proximal humerus. HARDWARE: None in the chest. OTHER: No other significant finding. IMPRESSION: Cardiac enlargement and mild vascular congestion. TECHNICAL DOCUMENTATION: JOB ID: [id number] [employer]- All Rights Reserved
[2017-01-01 14:12] LABS: ANISOCYTOSIS SLIGHT; BAND NEUTROPHILS % (MANUAL) 1 % (3-5); BASOPHILS % (MANUAL) 0 % (0-2); EOSINOPHILS % (MANUAL) 0 % (0-6); LYMPHOCYTES % (MANUAL) 5 % (13-45); TOTAL CELLS COUNTED 100; TOXIC GRANULATION SLIGHT
[2017-01-01] MEDS ORDERED: DILTIAZEM HCL/D5W 125 ML IV PRN (14:45)
[2017-01-01 14:55] LABS: APPEARANCE,URINE SLIGHTLY-CLOUDY; BILIRUBIN,URINE NEGATIVE (NEGATIVE); GLUCOSE, URINE NEGATIVE (NEGATIVE); KETONES,URINE NEGATIVE (NEGATIVE); LEUKOCYTE ESTERASE,URINE MODERATE (NEGATIVE); NITRITE,URINE POSITIVE (NEGATIVE); PROTEIN,URINE NEGATIVE (NEGATIVE); URINE SPECIFIC GRAVITY 1.008; UROBILINOGEN,URINE NEGATIVE mg/dL (<2.0)
[2017-01-01] MEDS ORDERED: IPRATROPIUM/ALBUTEROL 0.5-2.5 MG/3 ML AMPUL NEB PRN (15:23)
[2017-01-01] MEDS ORDERED: PROMETHAZINE HCL 25 MG TABLET PO PRN (15:28)
[2017-01-01] MEDS ORDERED: DIPHENHYDRAMINE HCL 25 MG CAPSULE PO PRN (15:28)
[2017-01-01] MEDS ORDERED: DEXTROSE 40% GEL 15 GM TUBE PO PRN ×2 (15:39)
[2017-01-01] MEDS ORDERED: GLUCAGON,HUMAN RECOMB 1 MG INJ IM PRN (15:39)
[2017-01-01] MEDS ORDERED: DEXTROSE 50%-WATER 25 GM/50 ML DISP.SYRIN IV PRN ×2 (15:39)
[2017-01-01] MEDS ORDERED: VANCOMYCIN HCL 0 MG in DEXTROSE 5%-WATER 250 ML IV NR (15:45)
[2017-01-01] MEDS ORDERED: DEXTROMETHORPHAN HBR PO PRN (15:53)
[2017-01-01] MEDS ORDERED: BUDESONIDE NEB 0.5 MG/2 ML AMPUL NEB SCH (16:00)
[2017-01-01] MEDS ORDERED: LEVALBUTEROL HCL NEB 1.25 MG/3 ML AMPUL NEB SCH (16:00)
--- NOTE | 2017-01-01 16:10 | PDOC H&P ---
History of Present Illness Admission Date/PCP: 01/01/17 15:37 MUSA HODGSON MD Patient complains of: Increasing shortness of breath, productive cough and fever History of Present Illness: PORSHA WALDRON is a 71 year old obese diabetic female, with underlying asthma and 24/7 3 L per nasal cannula oxygen-dependent COPD, along with underlying obstructive sleep apnea, diabetes mellitus, and multiple other comorbidities, well known to the hospitalist service for multiple admissions for respiratory problems and/or recurrent urinary tract infections, who presents to the emergency room for evaluation of above complaint. She describes a 3 day history or so of slowly progressive difficulty breathing, subjective fever, increased cough, gradually producing more and more sputum. Past Medical History Cardiac Medical History: Reports: Atrial Fibrillation, Congestive Heart Failure - Diastolic dysfunction, Myocardial Infarction, Hypertension - essential, Pulmonary Embolism, Heart Murmur Denies: Coronary Artery Disease, DVT, Hyperlipidema, Peripheral Vascular Disease Pulmonary Medical History: Reports: Asthma, Bronchitis, Chronic Obstructive Pulmonary Disease (COPD), Pneumonia - Recurrent MRSA pneumonia., Sleep Apnea - Uses C Pap Denies: Tuberculosis EENT Medical History: Reports: None Neurological Medical History: Reports: None Denies: Seizures Endocrine Medical History: Reports: Diabetes Mellitus Type 2 Denies: Diabetes Mellitus Type 1, Hyperthyroidism, Hypothyroidism Renal/ Medical History: Reports: None Malignancy Medical History: Reports: None GI Medical History: Reports: Gastroesophageal Reflux Disease, Hiatal Hernia Denies: Cirrhosis, Hepatitis Musculoskeltal Medical History: Reports: Arthritis, Fibromyalgia, Gout Skin Medical History: Denies: Eczema, Psoriasis Psychiatric Medical History: Reports: Depression Traumatic Medical History: Reports: None Hematology: Reports: Anemia Infectious Medical History: Reports: Methicillin-Resistant Staph Aureus, Other - ESBL Past Surgical History Past Surgical History: Reports: Appendectomy, Cholecystectomy, Hysterectomy, Orthopedic Surgery - Multiple left hip procedures, 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 Social History Information Source: Patient, Transfer Record, [facility] Records, Outside Facility Records Lives with: [facility] Smoking Status: Never Smoker Frequency of Alcohol Use: None Hx Recreational Drug Use: No Drugs: None Hx Prescription Drug Abuse: No - Advance Directive Resuscitation Status: Do Not Resuscitate Surrogate healthcare decision maker:: Lida WESLEY Family History Family History: Arthritis, CAD, CVA, DM, Hypertension Parental Family History Reviewed: Yes Children Family History Reviewed: Yes Sibling(s) Family History Reviewed.: Yes Medication/Allergy Home Medications: Acetaminophen [Tylenol 325 mg Tablet] 650 mg PO Q4HP PRN 11/25/16 Albuterol Sulfate [Albuterol Sulfate 2.5mg/3 mL] 3 ml NEB RTQ2HP PRN 11/25/16 Aspirin [Ecotrin 81 mg EC Tablet] 81 mg PO DAILY 11/25/16 Budesonide [Pulmicort Neb 0.5 mg/2 ml Ampul] 2 ml NEB RTQ4 11/25/16 Buspirone HCl [Buspar 5 mg Tablet] 5 mg PO BID 11/25/16 Dextromethorphan HBr [Delsym] 10 ml PO Q12HP PRN 11/25/16 Diphenhydramine HCl [Benadryl 25 mg Capsule] 25 mg PO Q6HP PRN 11/25/16 Dronabinol [Marinol 2.5 mg Capsule] 2.5 mg PO BID 11/25/16 Duloxetine HCl 90 mg PO DAILY 11/25/16 Famotidine [Pepcid 20 mg Tablet] 20 mg PO BID 11/25/16 Furosemide [Lasix] 40 mg PO DAILY 11/25/16 Guaifenesin [Mucinex] 1,200 mg PO Q12 11/25/16 Hydrocodone/Acetaminophen [[place] 5-325 mg Tablet] 1 tab PO Q4HP PRN 11/25/16 Insulin Detemir [Levemir Insulin 100 units/mL] 30 units SQ DAILY 11/25/16 Ipratropium [place] [Atrovent 0.02% Neb 0.5 mg/2.5 ml Ampul] 2.5 ml NEB RTQ4 Lactulose [Cephulac Syrup 20 gm/30 ml Udcup] 30 ml PO BID 11/25/16 Levalbuterol HCl [Xopenex Neb 1.25 mg/3 ml Ampul] 3 ml NEB RTQ4 11/25/16 Linaclotide [Linzess 145 Mcg Capsule] 145 mg PO QAM 11/25/16 Nitroglycerin [Nitrostat 0.4 mg (1/150 Gr) Tabs 25/Bottle] 0.4 mg PO Q5MP PRN Omeprazole 20 mg PO QAM 11/25/16 Potassium Chloride [K-Tab ER] 40 meq PO DAILY 11/25/16 Prednisone [Deltasone 20 mg Tablet] 20 mg PO BID 11/25/16 Pregabalin [Lyrica 100 mg Capsule] 100 mg PO Q12 11/25/16 Promethazine HCl [Phenergan 25 mg Tablet] 25 mg PO Q6HP PRN 11/25/16 Ranolazine [Ranexa 500 mg Tab.sr] 500 mg PO Q12 11/25/16 Apixaban [Eliquis 2.5 mg Tablet] 2.5 mg PO BID tablet 11/27/16 Diltiazem HCl [Cardizem 60 mg Tablet] 60 mg PO Q8 tablet 11/27/16 Fentanyl [Duragesic 25 mcg/hr Transdermal Patch] 1 patch TD Q3DAYS #2 patch.td72 11/27/16 Tramadol HCl [Ultram 50 mg Tablet] 50 mg PO Q6HP PRN #7 tablet 11/27/16 Allergies/Adverse Reactions: Sulfa (Sulfonamide Antibiotics) Allergy (Intermediate, Verified 11/24/16 17:35) adhesive tape Allergy (Verified 11/24/16 17:35) atorvastatin calcium [From Lipitor] Allergy (Verified 11/24/16 17:35) celecoxib [From Celebrex] Allergy (Verified 11/24/16 17:35) Review of Systems Constitutional: PRESENT: chills, fatigue, fever(s), night sweats, weakness Eyes: ABSENT: visual disturbances Ears: ABSENT: hearing changes Nose, Mouth, and Throat: PRESENT: sore throat Cardiovascular: PRESENT: orthropnea, palpitations Respiratory: PRESENT: cough, dyspnea, sputum Gastrointestinal: PRESENT: constipation. ABSENT: abdominal pain, diarrhea, hematemesis, hematochezia, nausea, vomiting Genitourinary: PRESENT: other - Chronic indwelling ghotra Musculoskeletal: PRESENT: back pain, muscle weakness - lower extremities Integumentary: PRESENT: diaphoresis Neurological: PRESENT: restless legs, weakness, other - Bed or wheelchair bound Psychiatric: PRESENT: anxiety, depression Endocrine: ABSENT: cold intolerance, heat intolerance, polydipsia, polyuria Hematologic/Lymphatic: ABSENT: easy bleeding, easy bruising Physical Exam Vital Signs: Temp Pulse Resp BP Pulse Ox 99.2 F 21 H 126/75 H 97 01/01/17 15:41 01/01/17 15:41 01/01/17 15:41 01/01/17 15:41 General appearance: PRESENT: no acute distress, obese, well-developed, well- nourished Head exam: PRESENT: atraumatic, normocephalic Eye exam: PRESENT: conjunctiva pale Ear exam: PRESENT: normal external ear exam Mouth exam: PRESENT: moist, neck supple, tongue midline Throat exam: PRESENT: post pharyngeal erythema Neck exam: ABSENT: carotid bruit, JVD, lymphadenopathy, thyromegaly Respiratory exam: PRESENT: rhonchi - Bilaterally, symmetrical, unlabored Cardiovascular exam: PRESENT: irregular rhythm, +S1, +S2, tachycardia. ABSENT: diastolic murmur, rubs, systolic murmur Pulses: PRESENT: normal carotid pulses, normal radial pulses Vascular exam: PRESENT: normal capillary refill GI/Abdominal exam: PRESENT: hypoactive bowel sounds, soft Rectal exam: PRESENT: deferred Extremities exam: PRESENT: full ROM. ABSENT: calf tenderness, clubbing, pedal edema Neurological exam: PRESENT: alert, altered, oriented to person, oriented to place, oriented to time, oriented to situation, CN II-XII grossly intact, motor sensory deficit Psychiatric exam: PRESENT: appropriate affect Skin exam: PRESENT: dry, intact, warm. ABSENT: cyanosis, rash Results Impressions: Chest X-Ray 01/01/17 13:42 IMPRESSION: Cardiac enlargement and mild vascular congestion. Assessment & Plan - Diagnosis (1) Acute on chronic respiratory failure with hypoxia and hypercapnia Is this a current diagnosis for this admission?: YesPlan: Patient will be placed on BIPAP therapy prn. Broad spectrum antibiotics, nebulizer therapy and oral steroids. Chest xray does not show pneumonia (2) COPD with acute bronchitis Is this a current diagnosis for this admission?: YesPlan: As above (3) Paroxysmal atrial fibrillation with RVR Is this a current diagnosis for this admission?: YesPlan: Patient is on IV diltiazem will restart oral dialtiazem (4) Gastroesophageal reflux disease Qualifiers: Esophagitis presence: without esophagitis Qualified Code(s): K21.9 - Gastro-esophageal reflux disease without esophagitis Plan: Continue PPI therapy (5) Anemia, chronic disease Is this a current diagnosis for this admission?: YesPlan: Stable (6) Chronic pain syndrome Is this a current diagnosis for this admission?: YesPlan: Continue prn norco and fentanyl patch (7) Do not resuscitate Is this a current diagnosis for this admission?: Yes (8) Generalized anxiety disorder Is this a current diagnosis for this admission?: YesPlan: Continue SSRI, prn anxiolytics (9) Hypertension Qualifiers: Hypertension type: essential hypertension Qualified Code(s): I10 - Essential (primary) hypertension Is this a current diagnosis for this admission?: YesPlan: Continue home medications (10) Obstructive sleep apnea Is this a current diagnosis for this admission?: YesPlan: CPAP QHS (11) Opiate dependence, continuous Is this a current diagnosis for this admission?: Yes (12) Physical debility Is this a current diagnosis for this admission?: Yes - Time Time Spent: 50 to 70 Minutes Critical Time spent with patient: 25-34 minutes Medications reviewed and adjusted accordingly: Yes Anticipated discharge: SNF
[2017-01-01] MEDS: LANSOPRAZOLE 30 MG TAB.RAP.DR PO SCH (16:16)
[2017-01-01] MEDS: NORMAL SALINE 1000 ML 1,000 ML IV PRN (16:17)
[2017-01-01] MEDS ORDERED: LEVALBUTEROL HCL NEB 1.25 MG/3 ML AMPUL NEB PRN (17:00)
[2017-01-01] MEDS ORDERED: DRONABINOL 2.5 MG CAPSULE PO SCH (18:00)
[2017-01-01] MEDS: LACTOBACILLUS ACIDOPHILUS 250 MG TAB PO SCH (18:50)
[2017-01-01] MEDS: DOCUSATE SODIUM 100 MG CAPSULE PO SCH (18:50)
[2017-01-01] MEDS: BUSPIRONE HCL 10 MG TABLET PO SCH (18:51)
[2017-01-01] MEDS: APIXABAN 2.5 MG TABLET PO SCH (18:51)
[2017-01-01] MEDS: HYDROCODONE/ACETAMINOPHEN 5-325 MG TABLET PO PRN (18:52)
[2017-01-01] MEDS: PREDNISONE 20 MG TABLET PO SCH (18:53)
[2017-01-01] MEDS: LACTULOSE SYRUP 20 GM/30 ML UDCUP PO SCH (18:53)
[2017-01-01] MEDS: FAMOTIDINE 20 MG TABLET PO SCH (18:53)
[2017-01-01] MEDS: ERTAPENEM SODIUM 1 GM in NORMAL SALINE 50 ML IV SCH (19:22)
[2017-01-01] MEDS ORDERED: IPRATROPIUM/ALBUTEROL 0.5-2.5 MG/3 ML AMPUL NEB SCH (20:00)
--- NOTE | 2017-01-01 20:28 | EKG REPORT ---
SEVERITY:- ABNORMAL ECG - SINUS TACHYCARDIA MULTIPLE ATRIAL PREMATURE COMPLEXES LEFT ANTERIOR FASCICULAR BLOCK LVH WITH SECONDARY REPOLARIZATION ABNORMALITY : Confirmed by: Inocencio Aguilar MD 01-Jan-2017 20:26:58
[2017-01-01] MEDS: BUDESONIDE NEB 0.5 MG/2 ML AMPUL NEB SCH (20:31)
[2017-01-01] MEDS: IPRATROPIUM/ALBUTEROL 0.5-2.5 MG/3 ML AMPUL NEB SCH (20:31)
[2017-01-01] MEDS: VANCOMYCIN HCL 1,250 MG in DEXTROSE 5%-WATER 250 ML IV SCH (21:40)
[2017-01-01] MEDS ORDERED: GUAIFENESIN 600 MG TABLET.SA PO SCH (22:00)
[2017-01-01] MEDS: SENNOSIDES/DOCUSATE 8.6-50 MG 1 EACH TABLET PO SCH (22:53)
[2017-01-01] MEDS: PREGABALIN 100 MG CAPSULE PO SCH (22:54)
[2017-01-01] MEDS: DILTIAZEM HCL 60 MG TABLET PO SCH (22:55)
[2017-01-01] MEDS: GUAIFENESIN 600 MG TABLET.SA PO SCH (22:56)
[2017-01-01] MEDS: HEPARIN SOD (PORCINE) 5,000 UNIT/ML 1 ML SYRINGE SUBCUT SCH (23:05)
[2017-01-01] MEDS: INSULIN LISPRO 100 UNIT/ML 3 ML VIAL SUBCUT PRN (23:35)
[2017-01-02 05:16] LABS: ABSOLUTE LYMPHOCYTES (AUTO) 0.7 10^3/uL (0.5-4.7); ABSOLUTE MONOCYTES (AUTO) 0.7 10^3/uL (0.1-1.4); ABSOLUTE NEUT (AUTO) 7.2 10^3/uL (1.7-8.2); BASOPHILS % (AUTO) 0.2 % (0-2); EOSINOPHILS % (AUTO) 0.2 % (0-6); HEMATOCRIT 32.7 % (36.0-47.0); HGB HCT DIFFERENCE 0.3; MEAN CORPUSCULAR HEMOGLOBIN 29.7 pg (27.0-33.4); MEAN CORPUSCULAR HGB CONC 33.5 g/dL (32.0-36.0); MEAN CORPUSCULAR VOLUME 89 fl (80-97); MONOCYTES % (AUTO) 7.9 % (3-13); RED BLOOD COUNT 3.68 10^6/uL (3.72-5.28); RED CELL DISTRIBUTION WIDTH 15.5 % (11.5-14.0); SEGMENTED NEUTROPHILS % (AUTO) 83.7 % (42-78); WHITE BLOOD COUNT 8.6 10^3/uL (4.0-10.5)
[2017-01-02 05:51] LABS: ANION GAP 10 (5-19); BLOOD UREA NITROGEN 24 mg/dL (7-20); CALCIUM 9.3 mg/dL (8.4-10.2); CARBON DIOXIDE 29 mmol/L (22-30); CHLORIDE 99 mmol/L (98-107); CREATININE RESULT 0.96 mg/dL (0.52-1.25); GLUCOSE 217 mg/dL (75-110); POTASSIUM 4.1 mmol/L (3.6-5.0); SODIUM 137.6 mmol/L (137-145)
[2017-01-02] MEDS: DILTIAZEM HCL 60 MG TABLET PO SCH ×3 (06:38→21:22)
[2017-01-02] MEDS: LANSOPRAZOLE 30 MG TAB.RAP.DR PO SCH ×2 (06:39→17:15)
[2017-01-02] MEDS: HYDROCODONE/ACETAMINOPHEN 5-325 MG TABLET PO PRN (06:41)
[2017-01-02] MEDS ORDERED: LINACLOTIDE 145 MG PO SCH (08:00)
[2017-01-02] MEDS: INSULIN LISPRO 100 UNIT/ML 3 ML VIAL SUBCUT PRN ×4 (08:22→23:19)
[2017-01-02] MEDS: IPRATROPIUM/ALBUTEROL 0.5-2.5 MG/3 ML AMPUL NEB SCH ×4 (08:27→20:25)
[2017-01-02] MEDS: BUDESONIDE NEB 0.5 MG/2 ML AMPUL NEB SCH ×2 (08:27→20:26)
[2017-01-02] MEDS: HEPARIN SOD (PORCINE) 5,000 UNIT/ML 1 ML SYRINGE SUBCUT SCH ×3 (08:27→21:27)
[2017-01-02] MEDS ORDERED: PREDNISONE 20 MG TABLET PO SCH (10:00)
[2017-01-02] MEDS: PREGABALIN 100 MG CAPSULE PO SCH ×2 (10:25→21:24)
[2017-01-02] MEDS: FUROSEMIDE 40 MG TABLET PO SCH (10:25)
[2017-01-02] MEDS: BUSPIRONE HCL 10 MG TABLET PO SCH ×2 (10:25→17:15)
[2017-01-02] MEDS: LACTOBACILLUS ACIDOPHILUS 250 MG TAB PO SCH ×2 (10:25→17:15)
[2017-01-02] MEDS: DULOXETINE HCL 30 MG CAPSULE.DR PO SCH (10:26)
[2017-01-02] MEDS: FAMOTIDINE 20 MG TABLET PO SCH ×2 (10:26→17:15)
[2017-01-02] MEDS: APIXABAN 2.5 MG TABLET PO SCH ×2 (10:26→17:15)
[2017-01-02] MEDS: LACTULOSE SYRUP 20 GM/30 ML UDCUP PO SCH ×2 (10:26→17:15)
[2017-01-02] MEDS: GUAIFENESIN 600 MG TABLET.SA PO SCH ×2 (10:26→21:23)
[2017-01-02] MEDS: DOCUSATE SODIUM 100 MG CAPSULE PO SCH ×2 (10:26→17:15)
[2017-01-02] MEDS: PREDNISONE 20 MG TABLET PO SCH ×2 (10:26→17:15)
[2017-01-02] MEDS: INSULIN DETEMIR 100 UNIT/ML 3 ML PEN SUBCUT SCH (10:27)
[2017-01-02] MEDS: ASPIRIN 81 MG TABLET, ENT COATED PO SCH (10:29)
[2017-01-02] MEDS ORDERED: GENTAMICIN SULFATE 200 MG in DEXTROSE 5%-WATER 100 ML IV SCH (12:00)
[2017-01-02] MEDS: NORMAL SALINE 1000 ML 1,000 ML IV PRN (12:02)
[2017-01-02] MEDS: OXYCODONE HCL IR 5 MG TABLET PO PRN ×2 (13:18→21:24)
[2017-01-02] MEDS: BENZONATATE 100 MG CAPSULE PO SCH ×2 (13:18→21:24)
--- NOTE | 2017-01-02 14:58 | PDOC PROGRESS REPORT ---
Subjective Progress Note for:: 01/02/17 Subjective:: Patient seen on morning rounds. She is resting comfortably in bed at present time. She is off BiPAP on nasal cannula. She denies significant dyspnea at rest. She has a congested cough. She denies chest pain or palpitations. She denies any nausea, vomiting, or abdominal pain. She does have issues with constipation. She complains of chronic pain in her neck and back. Rest of the review of systems are negative. Physical Exam Vital Signs: Temp Pulse Resp BP Pulse Ox 98.7 F 104 H 16 141/84 H 96 01/02/17 11:34 01/02/17 14:00 01/02/17 13:22 01/02/17 11:34 01/02/17 13:22 Intake & Output 01/01/17 01/02/17 01/03/17 06:59 06:59 06:59 Intake Total 1700 Output Total 1500 Balance 200 Weight 99.7 kg 99.7 kg General appearance: PRESENT: no acute distress, morbidly obese, well-developed, well-nourished Head exam: PRESENT: atraumatic, normocephalic Eye exam: PRESENT: conjunctiva pink, EOMI, PERRLA. ABSENT: scleral icterus Ear exam: PRESENT: normal external ear exam Mouth exam: PRESENT: moist, tongue midline Neck exam: ABSENT: carotid bruit, JVD, lymphadenopathy, thyromegaly Respiratory exam: PRESENT: clear to auscultation elia. ABSENT: rales, rhonchi, wheezes Cardiovascular exam: PRESENT: irregular rhythm, +S1, +S2. ABSENT: diastolic murmur, rubs, systolic murmur Pulses: PRESENT: normal dorsalis pedis pul Vascular exam: PRESENT: normal capillary refill GI/Abdominal exam: PRESENT: normal bowel sounds, soft. ABSENT: distended, guarding, mass, organolmegaly, rebound, tenderness Rectal exam: PRESENT: deferred Extremities exam: PRESENT: full ROM. ABSENT: calf tenderness, clubbing, pedal edema Musculoskeletal exam: PRESENT: ambulatory, full ROM, normal inspection Neurological exam: PRESENT: alert, awake, oriented to person, oriented to place , oriented to time, oriented to situation, CN II-XII grossly intact. ABSENT: motor sensory deficit Psychiatric exam: PRESENT: appropriate affect, normal mood. ABSENT: homicidal ideation, suicidal ideation Skin exam: PRESENT: dry, intact, warm, other - forearms with echymotic areas. ABSENT: cyanosis, rash Results Laboratory Results: 01/02/17 04:49 01/02/17 04:49 01/02/17 01/02/17 04:49 04:49 WBC 8.6 RBC 3.68 L Hgb 11.0 L Hct 32.7 L MCV 89 MCH 29.7 MCHC 33.5 RDW 15.5 H Plt Count 195 Seg Neutrophils % 83.7 H Lymphocytes % 8.0 L Monocytes % 7.9 Eosinophils % 0.2 Basophils % 0.2 Absolute Neutrophils 7.2 Absolute Lymphocytes 0.7 Absolute Monocytes 0.7 Absolute Eosinophils 0.0 Absolute Basophils 0.0 Sodium 137.6 Potassium 4.1 Chloride 99 Carbon Dioxide 29 Anion Gap 10 BUN 24 H Creatinine 0.96 Est GFR ( Amer) > 60 Est GFR (Non-Af Amer) 57 L Glucose 217 H Calcium 9.3 01/02/17 04:49 NT-Pro-B Natriuret Pep 480 Impressions: Chest X-Ray 01/01/17 13:42 IMPRESSION: Cardiac enlargement and mild vascular congestion. Assessment & Plan - Diagnosis (1) Acute on chronic respiratory failure with hypoxia and hypercapnia Is this a current diagnosis for this admission?: YesPlan: Patient will be placed on BIPAP therapy prn. Broad spectrum antibiotics, nebulizer therapy and oral steroids. Chest xray does not show pneumonia (2) COPD with acute bronchitis Is this a current diagnosis for this admission?: YesPlan: As above (3) UTI (urinary tract infection) due to urinary indwelling [place] catheter Qualifiers: Indwelling urinary catheter type: indwelling urethral catheter Encounter type: sequela Qualified Code(s): T83.511S - Infection and inflammatory reaction due to indwelling urethral catheter, sequela; N39.0 - Urinary tract infection, site not specified Is this a current diagnosis for this admission?: YesPlan: Continue current IV antibiotics (4) Paroxysmal atrial fibrillation with RVR Is this a current diagnosis for this admission?: YesPlan: Patient is on IV diltiazem will restart oral dialtiazem (5) Gastroesophageal reflux disease Qualifiers: Esophagitis presence: without esophagitis Qualified Code(s): K21.9 - Gastro-esophageal reflux disease without esophagitis Plan: Continue PPI therapy (6) Anemia, chronic disease Is this a current diagnosis for this admission?: YesPlan: Stable (7) Chronic pain syndrome Is this a current diagnosis for this admission?: YesPlan: Continue prn norco and fentanyl patch (8) Do not resuscitate Is this a current diagnosis for this admission?: Yes (9) Generalized anxiety disorder Is this a current diagnosis for this admission?: YesPlan: Continue SSRI, prn anxiolytics (10) Hypertension Qualifiers: Hypertension type: essential hypertension Qualified Code(s): I10 - Essential (primary) hypertension Is this a current diagnosis for this admission?: YesPlan: Continue home medications (11) Obstructive sleep apnea Is this a current diagnosis for this admission?: YesPlan: CPAP QHS (12) Opiate dependence, continuous Is this a current diagnosis for this admission?: YesPlan: Will continue patient's current analgesics (13) Physical debility Is this a current diagnosis for this admission?: Yes - Time Time Spent with patient: 25-34 minutes Critical Time spent with patient: 15-24 minutes Medications reviewed and adjusted accordingly: Yes Anticipated discharge: SNF
[2017-01-02] MEDS: ERTAPENEM SODIUM 1 GM in NORMAL SALINE 50 ML IV SCH (17:16)
[2017-01-02] MEDS: SENNOSIDES/DOCUSATE 8.6-50 MG 1 EACH TABLET PO SCH (21:32)
[2017-01-02] MEDS: VANCOMYCIN HCL 1,250 MG in DEXTROSE 5%-WATER 250 ML IV SCH (21:39)
[2017-01-03] MEDS ORDERED: METOPROLOL TARTRATE PF/INJ 5 MG/5 ML SDV IV ONE ×2 (01:09→01:15)
[2017-01-03] MEDS: NORMAL SALINE 1000 ML 1,000 ML IV PRN (03:55)
[2017-01-03] MEDS: HEPARIN SOD (PORCINE) 5,000 UNIT/ML 1 ML SYRINGE SUBCUT SCH (05:40)
[2017-01-03] MEDS: LANSOPRAZOLE 30 MG TAB.RAP.DR PO SCH ×2 (05:44→17:42)
[2017-01-03] MEDS: DILTIAZEM HCL 60 MG TABLET PO SCH ×3 (05:45→23:45)
[2017-01-03] MEDS: BENZONATATE 100 MG CAPSULE PO SCH ×3 (05:45→23:46)
--- NOTE | 2017-01-03 08:00 | EKG REPORT ---
SEVERITY:- ABNORMAL ECG - SINUS TACHYCARDIA WITH FREQUENT PACS [id number] LEFT ANTERIOR FASCICULAR BLOCK LVH WITH SECONDARY REPOLARIZATION ABNORMALITY BORDERLINE PROLONGED QT INTERVAL : Confirmed by: Inocencio Aguilar MD 03-Jan-2017 08:00:13
[2017-01-03] MEDS: IPRATROPIUM/ALBUTEROL 0.5-2.5 MG/3 ML AMPUL NEB SCH ×4 (09:07→20:05)
[2017-01-03] MEDS: BUDESONIDE NEB 0.5 MG/2 ML AMPUL NEB SCH ×2 (09:07→20:05)
[2017-01-03] MEDS: OXYCODONE HCL IR 5 MG TABLET PO PRN ×2 (09:55→15:52)
[2017-01-03] MEDS: LACTULOSE SYRUP 20 GM/30 ML UDCUP PO SCH ×2 (09:58→17:42)
[2017-01-03] MEDS: INSULIN LISPRO 100 UNIT/ML 3 ML VIAL SUBCUT PRN ×2 (09:58→12:26)
[2017-01-03] MEDS: FUROSEMIDE 40 MG TABLET PO SCH (09:58)
[2017-01-03] MEDS: FAMOTIDINE 20 MG TABLET PO SCH ×2 (09:59→17:42)
[2017-01-03] MEDS: PREDNISONE 20 MG TABLET PO SCH ×2 (09:59→17:42)
[2017-01-03] MEDS: APIXABAN 2.5 MG TABLET PO SCH ×2 (09:59→17:42)
[2017-01-03] MEDS: DOCUSATE SODIUM 100 MG CAPSULE PO SCH ×2 (09:59→17:42)
[2017-01-03] MEDS: DULOXETINE HCL 30 MG CAPSULE.DR PO SCH (09:59)
[2017-01-03] MEDS: GUAIFENESIN 600 MG TABLET.SA PO SCH ×2 (09:59→23:44)
[2017-01-03] MEDS: LACTOBACILLUS ACIDOPHILUS 250 MG TAB PO SCH ×2 (09:59→17:42)
[2017-01-03] MEDS: PREGABALIN 100 MG CAPSULE PO SCH ×2 (09:59→23:46)
[2017-01-03] MEDS: INSULIN DETEMIR 100 UNIT/ML 3 ML PEN SUBCUT SCH (09:59)
[2017-01-03] MEDS: ASPIRIN 81 MG TABLET, ENT COATED PO SCH (09:59)
[2017-01-03] MEDS: BUSPIRONE HCL 10 MG TABLET PO SCH ×2 (09:59→17:42)
--- NOTE | 2017-01-03 11:14 | Physician Advisory Note ---
Physician Advisor ProgressNote .: Pursuant to the plan for Brad Ly, I have reviewed the medical record for this patient. Physician Advisor Statement: Nice documentation of chronic opioid dependence, ac/chr resp failure, Ac bronchitis w/Ac exac COPD, .... Please consider documentin. likely underlying cause of "anemia of chronic dz" - due to CKD? CA? hypothyroidism? ... 2. "Acute mild hyponatremia, now resolved, likely due to ____" 3. "morbid obesity with BMI 41" Supporting evidence for dx Ac on chr hypoxemic/hypercarbic resp failure: Pt requires 3L O2 24/7 at baseline for COPD/asthma, has ROSETTA & morbid obesity too. Initial eval by ED nurse documented labored breathing, pursed-lip breathing, tachypnea. CK
--- NOTE | 2017-01-03 14:18 | RADIOLOGY REPORT (SQ) ---
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 TECHNIQUE: Fluoroscopic and ultrasound guided PICC placement. LIMITATIONS: None. PROCEDURE: After written consent and assessment were obtained, the patient was brought into the fluo roscopy room and place supine on the table. Ultrasound was used on the patient's right arm for PICC access. The right arm was prepped and draped in a sterile fashion along with the ultrasound probe. Th e entry site was anesthetized with 1% lidocaine. A 21 gauge 7 cm needle was advanced through the skin and into the right basilic vein under live ultrasound guidance. An ultrasound image was saved to [facility] confirming access site. A .018 guide wire was then inserted through the needle and into the venou s system. The needle was the removed and an 11 blade scalpel was used to make a 1cm skin incision. A 5 fr peel-away sheath was advanced over the wire and into the venous system. A measurement was then made using the existing wire and live fluoroscopic guidance. The wire was then removed and the trimme d. The PICC was advanced through the peel-away sheath and into the venous system. The peel-away sheat h was removed and the catheter was adhered to the patients arm with a stat lock. The catheter was the n aspirated and flushed and a sterile bandage was placed over the access site. A fluoroscopic spot i mage was saved to PACS confirming the catheter tip within the superior vena cava. IMPRESSION: SUCCESSFUL PLACEMENT OF A 5 FR DUAL LUMEN 33 CM PICC IN THE right basilic VEIN. COMMENT: Patient medication list reviewed: Yes- Quality ID# 130:Eligible professional attests to doc umenting in the medical record they obtained, updated, or reviewed the patient's current medications. . Quality ID 145: Final reports for procedures using fluoroscopy that document radiation exposure jl artemio, or exposure time and number of fluorographic images (if radiation exposure indices are not avail able) Quality ID #76: The patient was prepped and draped using maximum sterile barrier technique including cap, mask, sterile gown, sterile gloves, a large sterile sheet, hand hygiene, and 2% Chlorhexidine fo r cutaneous antisepsis. When ultrasound is used, sterile ultrasound techniques are followed requiring sterile gel and sterile probes. TECHNICAL DOCUMENTATION: JOB ID: [id number] [email or web address]- All Rights Reserved
--- NOTE | 2017-01-03 14:18 | RADIOLOGY REPORT (SQ) ---
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 TECHNIQUE: Fluoroscopic and ultrasound guided PICC placement. LIMITATIONS: None. PROCEDURE: After written consent and assessment were obtained, the patient was brought into the fluo roscopy room and place supine on the table. Ultrasound was used on the patient's right arm for PICC access. The right arm was prepped and draped in a sterile fashion along with the ultrasound probe. Th e entry site was anesthetized with 1% lidocaine. A 21 gauge 7 cm needle was advanced through the skin and into the right basilic vein under live ultrasound guidance. An ultrasound image was saved to [facility] confirming access site. A .018 guide wire was then inserted through the needle and into the venou s system. The needle was the removed and an 11 blade scalpel was used to make a 1cm skin incision. A 5 fr peel-away sheath was advanced over the wire and into the venous system. A measurement was then made using the existing wire and live fluoroscopic guidance. The wire was then removed and the trimme d. The PICC was advanced through the peel-away sheath and into the venous system. The peel-away sheat h was removed and the catheter was adhered to the patients arm with a stat lock. The catheter was the n aspirated and flushed and a sterile bandage was placed over the access site. A fluoroscopic spot i mage was saved to PACS confirming the catheter tip within the superior vena cava. IMPRESSION: SUCCESSFUL PLACEMENT OF A 5 FR DUAL LUMEN 33 CM PICC IN THE right basilic VEIN. COMMENT: Patient medication list reviewed: Yes- Quality ID# 130:Eligible professional attests to doc umenting in the medical record they obtained, updated, or reviewed the patient's current medications. . Quality ID 145: Final reports for procedures using fluoroscopy that document radiation exposure jl artemio, or exposure time and number of fluorographic images (if radiation exposure indices are not avail able) Quality ID #76: The patient was prepped and draped using maximum sterile barrier technique including cap, mask, sterile gown, sterile gloves, a large sterile sheet, hand hygiene, and 2% Chlorhexidine fo r cutaneous antisepsis. When ultrasound is used, sterile ultrasound techniques are followed requiring sterile gel and sterile probes. TECHNICAL DOCUMENTATION: JOB ID: [id number] [employer]- All Rights Reserved
--- NOTE | 2017-01-03 14:18 | RADIOLOGY REPORT (SQ) ---
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 TECHNIQUE: Fluoroscopic and ultrasound guided PICC placement. LIMITATIONS: None. PROCEDURE: After written consent and assessment were obtained, the patient was brought into the fluo roscopy room and place supine on the table. Ultrasound was used on the patient's right arm for PICC access. The right arm was prepped and draped in a sterile fashion along with the ultrasound probe. Th e entry site was anesthetized with 1% lidocaine. A 21 gauge 7 cm needle was advanced through the skin and into the right basilic vein under live ultrasound guidance. An ultrasound image was saved to [facility] confirming access site. A .018 guide wire was then inserted through the needle and into the venou s system. The needle was the removed and an 11 blade scalpel was used to make a 1cm skin incision. A 5 fr peel-away sheath was advanced over the wire and into the venous system. A measurement was then made using the existing wire and live fluoroscopic guidance. The wire was then removed and the trimme d. The PICC was advanced through the peel-away sheath and into the venous system. The peel-away sheat h was removed and the catheter was adhered to the patients arm with a stat lock. The catheter was the n aspirated and flushed and a sterile bandage was placed over the access site. A fluoroscopic spot i mage was saved to PACS confirming the catheter tip within the superior vena cava. IMPRESSION: SUCCESSFUL PLACEMENT OF A 5 FR DUAL LUMEN 33 CM PICC IN THE right basilic VEIN. COMMENT: Patient medication list reviewed: Yes- Quality ID# 130:Eligible professional attests to doc umenting in the medical record they obtained, updated, or reviewed the patient's current medications. . Quality ID 145: Final reports for procedures using fluoroscopy that document radiation exposure jl artemio, or exposure time and number of fluorographic images (if radiation exposure indices are not avail able) Quality ID #76: The patient was prepped and draped using maximum sterile barrier technique including cap, mask, sterile gown, sterile gloves, a large sterile sheet, hand hygiene, and 2% Chlorhexidine fo r cutaneous antisepsis. When ultrasound is used, sterile ultrasound techniques are followed requiring sterile gel and sterile probes. TECHNICAL DOCUMENTATION: JOB ID: [id number] [employer]- All Rights Reserved
--- NOTE | 2017-01-03 14:35 | PDOC PROGRESS REPORT ---
Subjective Progress Note for:: 01/03/17 Subjective:: Patient seen on morning rounds. She is resting comfortably in bed at present time. She is off BiPAP on nasal cannula. She denies significant dyspnea at rest. She has a congested cough. She denies chest pain or palpitations. She denies any nausea, vomiting, or abdominal pain. She does have issues with constipation and has not had a bowel movement in 3 days. She complains of chronic pain in her neck and back. Rest of the review of systems are negative. Physical Exam Vital Signs: Temp Pulse Resp BP Pulse Ox 98.4 F 114 H 20 96/64 L 97 01/03/17 10:54 01/03/17 11:57 01/03/17 12:14 01/03/17 10:54 01/03/17 12:14 Intake & Output 01/02/17 01/03/17 01/04/17 06:59 06:59 06:59 Intake Total 1700 6676 400 Output Total 1500 2100 300 Balance 200 4576 100 Weight 99.7 kg 102.6 kg General appearance: PRESENT: no acute distress, morbidly obese, well-developed, well-nourished Head exam: PRESENT: atraumatic, normocephalic Eye exam: PRESENT: conjunctiva pale, EOMI, PERRLA. ABSENT: scleral icterus Ear exam: PRESENT: normal external ear exam Mouth exam: PRESENT: moist, tongue midline Neck exam: ABSENT: carotid bruit, JVD, lymphadenopathy, thyromegaly Respiratory exam: PRESENT: rhonchi - bilaterally, symmetrical, unlabored. ABSENT: rales, wheezes Cardiovascular exam: PRESENT: irregular rhythm, +S1, +S2 Pulses: PRESENT: normal carotid pulses, normal radial pulses Vascular exam: PRESENT: normal capillary refill GI/Abdominal exam: PRESENT: normal bowel sounds, soft. ABSENT: distended, guarding, mass, organolmegaly, rebound, tenderness Rectal exam: PRESENT: deferred Extremities exam: PRESENT: full ROM. ABSENT: calf tenderness, clubbing, pedal edema Musculoskeletal exam: PRESENT: ambulatory, full ROM, normal inspection Neurological exam: PRESENT: alert, awake, oriented to person, oriented to time, oriented to situation, CN II-XII grossly intact Psychiatric exam: PRESENT: appropriate affect, normal mood. ABSENT: homicidal ideation, suicidal ideation Skin exam: PRESENT: dry, intact, warm. ABSENT: cyanosis, rash Results Laboratory Results: 01/02/17 04:49 01/02/17 04:49 01/02/17 04:00 Sputum Gram Stain - Final 01/02/17 04:49 NT-Pro-B Natriuret Pep 480 Impressions: Chest X-Ray 01/01/17 13:42 IMPRESSION: Cardiac enlargement and mild vascular congestion. Guidance Fluoroscopy 01/03/17 00:00 IMPRESSION: SUCCESSFUL PLACEMENT OF A 5 FR DUAL LUMEN 33 CM PICC IN THE right basilic VEIN. Interventional Vascular Procedure 01/03/17 00:00 IMPRESSION: SUCCESSFUL PLACEMENT OF A 5 FR DUAL LUMEN 33 CM PICC IN THE right basilic VEIN. PICC Line Insertion 01/03/17 00:00 IMPRESSION: SUCCESSFUL PLACEMENT OF A 5 FR DUAL LUMEN 33 CM PICC IN THE right basilic VEIN. Assessment & Plan - Diagnosis (1) UTI (urinary tract infection) due to urinary indwelling Barton catheter Qualifiers: Indwelling urinary catheter type: indwelling urethral catheter Encounter type: sequela Qualified Code(s): T83.511S - Infection and inflammatory reaction due to indwelling urethral catheter, sequela; N39.0 - Urinary tract infection, site not specified Is this a current diagnosis for this admission?: YesPlan: Continue current IV antibiotics (2) Hyponatremia Is this a current diagnosis for this admission?: YesPlan: Resolved with IV hydration, secondary to mild intravascular dehydration secondary to infection (3) Acute on chronic respiratory failure with hypoxia and hypercapnia Is this a current diagnosis for this admission?: YesPlan: Patient will be placed on BIPAP therapy prn. Broad spectrum antibiotics, nebulizer therapy and oral steroids. Chest xray does not show pneumonia (4) COPD with acute bronchitis Is this a current diagnosis for this admission?: YesPlan: As above (5) Paroxysmal atrial fibrillation with RVR Is this a current diagnosis for this admission?: YesPlan: Patient is on IV diltiazem will restart oral dialtiazem. PRN IV metoprolol if rate increases (6) Gastroesophageal reflux disease Qualifiers: Esophagitis presence: without esophagitis Qualified Code(s): K21.9 - Gastro-esophageal reflux disease without esophagitis Plan: Continue PPI therapy (7) Anemia, chronic disease Is this a current diagnosis for this admission?: YesPlan: Stable. Likely secondary to chronic kidney disease (8) Chronic pain syndrome Is this a current diagnosis for this admission?: YesPlan: Patient has been on chronic opioids for several years being followed by pain management. Continue prn norco and fentanyl patch (9) Do not resuscitate Is this a current diagnosis for this admission?: Yes (10) Generalized anxiety disorder Is this a current diagnosis for this admission?: YesPlan: Continue SSRI, prn anxiolytics (11) Hypertension Qualifiers: Hypertension type: essential hypertension Qualified Code(s): I10 - Essential (primary) hypertension Is this a current diagnosis for this admission?: YesPlan: Continue home medications (12) Obstructive sleep apnea Is this a current diagnosis for this admission?: YesPlan: CPAP QHS (13) Opiate dependence, continuous Is this a current diagnosis for this admission?: YesPlan: Will continue patient's current analgesics (14) Physical debility Is this a current diagnosis for this admission?: Yes - Time Time Spent with patient: 25-34 minutes Critical Time spent with patient: 15-24 minutes Medications reviewed and adjusted accordingly: Yes Anticipated discharge: SNF
[2017-01-03] MEDS: METOPROLOL TARTRATE PF/INJ 5 MG/5 ML SDV IV PRN ×2 (17:43→23:50)
[2017-01-03] MEDS: ERTAPENEM SODIUM 1 GM in NORMAL SALINE 50 ML IV SCH (17:43)
[2017-01-03] MEDS: VANCOMYCIN HCL 1,250 MG in DEXTROSE 5%-WATER 250 ML IV SCH (20:58)
[2017-01-03] MEDS: SENNOSIDES/DOCUSATE 8.6-50 MG 1 EACH TABLET PO SCH (23:58)
[2017-01-04] MEDS: INSULIN LISPRO 100 UNIT/ML 3 ML VIAL SUBCUT PRN ×3 (00:18→23:11)
[2017-01-04] MEDS: METOPROLOL TARTRATE PF/INJ 5 MG/5 ML SDV IV PRN (04:58)
[2017-01-04] MEDS: BENZONATATE 100 MG CAPSULE PO SCH ×3 (06:26→22:18)
[2017-01-04] MEDS: LANSOPRAZOLE 30 MG TAB.RAP.DR PO SCH ×2 (06:27→17:54)
[2017-01-04] MEDS: DILTIAZEM HCL 60 MG TABLET PO SCH ×3 (06:27→22:18)
[2017-01-04 07:01] LABS: HEMATOCRIT 34.6 % (36.0-47.0); HEMOGLOBIN 11.3 g/dL (12.0-15.5); HGB HCT DIFFERENCE -0.7; MEAN CORPUSCULAR HEMOGLOBIN 29.2 pg (27.0-33.4); MEAN CORPUSCULAR HGB CONC 32.8 g/dL (32.0-36.0); MEAN CORPUSCULAR VOLUME 89 fl (80-97); RED BLOOD COUNT 3.89 10^6/uL (3.72-5.28); RED CELL DISTRIBUTION WIDTH 15.6 % (11.5-14.0); WHITE BLOOD COUNT 9.9 10^3/uL (4.0-10.5)
[2017-01-04 07:09] LABS: ANION GAP 10 (5-19); BLOOD UREA NITROGEN 25 mg/dL (7-20); CALCIUM 9.2 mg/dL (8.4-10.2); CARBON DIOXIDE 29 mmol/L (22-30); CHLORIDE 100 mmol/L (98-107); CREATININE RESULT 0.91 mg/dL (0.52-1.25); GLUCOSE 220 mg/dL (75-110); POTASSIUM 4.3 mmol/L (3.6-5.0); SODIUM 138.7 mmol/L (137-145)
[2017-01-04 07:42] LABS: BAND NEUTROPHILS % (MANUAL) 3 % (3-5); BASOPHILS % (MANUAL) 0 % (0-2); EOSINOPHILS % (MANUAL) 0 % (0-6); LYMPHOCYTES % (MANUAL) 14 % (13-45); TOTAL CELLS COUNTED 100
[2017-01-04 07:43] LABS: ANISOCYTOSIS SLIGHT; POLYCHROMASIA SLIGHT; TOXIC GRANULATION SLIGHT
[2017-01-04] MEDS: IPRATROPIUM/ALBUTEROL 0.5-2.5 MG/3 ML AMPUL NEB SCH ×4 (07:55→20:05)
[2017-01-04] MEDS: BUDESONIDE NEB 0.5 MG/2 ML AMPUL NEB SCH ×2 (07:55→20:05)
[2017-01-04] MEDS: APIXABAN 2.5 MG TABLET PO SCH ×2 (09:09→17:55)
[2017-01-04] MEDS: DOCUSATE SODIUM 100 MG CAPSULE PO SCH ×2 (09:12→17:55)
[2017-01-04] MEDS: ASPIRIN 81 MG TABLET, ENT COATED PO SCH (09:12)
[2017-01-04] MEDS: FAMOTIDINE 20 MG TABLET PO SCH ×2 (09:14→17:55)
[2017-01-04] MEDS: BUSPIRONE HCL 10 MG TABLET PO SCH ×2 (09:15→17:55)
[2017-01-04] MEDS: FENTANYL 25 MCG/HR PATCH.TD72 TD SCH (09:15)
[2017-01-04] MEDS: DULOXETINE HCL 30 MG CAPSULE.DR PO SCH (09:17)
[2017-01-04] MEDS: FUROSEMIDE 40 MG TABLET PO SCH (09:18)
[2017-01-04] MEDS: GUAIFENESIN 600 MG TABLET.SA PO SCH ×2 (09:19→22:17)
[2017-01-04] MEDS: LACTOBACILLUS ACIDOPHILUS 250 MG TAB PO SCH ×2 (09:19→17:56)
[2017-01-04] MEDS: PREDNISONE 20 MG TABLET PO SCH ×2 (09:20→17:55)
[2017-01-04] MEDS: LACTULOSE SYRUP 20 GM/30 ML UDCUP PO SCH ×2 (09:20→17:54)
[2017-01-04] MEDS: PREGABALIN 100 MG CAPSULE PO SCH ×2 (09:21→22:18)
[2017-01-04] MEDS: ACETAMINOPHEN 325 MG TABLET PO PRN (09:21)
[2017-01-04] MEDS: METOPROLOL TARTRATE 25 MG TABLET PO SCH ×2 (09:23→22:21)
[2017-01-04] MEDS: INSULIN DETEMIR 100 UNIT/ML 3 ML PEN SUBCUT SCH (10:54)
[2017-01-04] MEDS ORDERED: TOBRAMYCIN SULFATE INJ 80 MG/2 ML VIAL NEB SCH (11:15)
[2017-01-04] MEDS ORDERED: TRAMADOL HCL 50 MG TABLET PO PRN (11:50)
--- NOTE | 2017-01-04 15:55 | PDOC PROGRESS REPORT ---
Subjective Progress Note for:: 01/04/17 Subjective:: Patient seen on morning rounds. She is resting comfortably in bed at present time. She is on BiPAP at the present time. She denies significant dyspnea at rest. She continues to have a congested cough. She denies chest pain or palpitations. She denies any nausea, vomiting, or abdominal pain. She does have issues with constipation and has not had a bowel movement in 3 days. She complains of chronic pain in her neck and back. Rest of the review of systems are negative. Physical Exam Vital Signs: Temp Pulse Resp BP Pulse Ox 98.3 F 106 H 24 H 96/71 L 100 01/04/17 12:22 01/04/17 15:43 01/04/17 15:43 01/04/17 12:22 01/04/17 15:43 Intake & Output 01/03/17 01/04/17 01/05/17 06:59 06:59 06:59 Intake Total 6676 1450 150 Output Total 2100 2500 400 Balance 4576 -1050 -250 Weight 102.6 kg 106.1 kg General appearance: PRESENT: no acute distress, morbidly obese, well-developed, well-nourished Head exam: PRESENT: atraumatic, normocephalic Eye exam: PRESENT: conjunctiva pink, EOMI, PERRLA. ABSENT: scleral icterus Ear exam: PRESENT: normal external ear exam Mouth exam: PRESENT: moist, tongue midline Neck exam: ABSENT: carotid bruit, JVD, lymphadenopathy, thyromegaly Respiratory exam: PRESENT: rhonchi, symmetrical, unlabored. ABSENT: rales, wheezes Cardiovascular exam: PRESENT: irregular rhythm, +S1, +S2 Pulses: PRESENT: normal carotid pulses, normal radial pulses Vascular exam: PRESENT: normal capillary refill GI/Abdominal exam: PRESENT: normal bowel sounds, soft. ABSENT: distended, guarding, mass, organolmegaly, rebound, tenderness Rectal exam: PRESENT: deferred Extremities exam: PRESENT: full ROM. ABSENT: calf tenderness, clubbing, pedal edema Neurological exam: PRESENT: alert, awake, oriented to person, oriented to place , oriented to time, oriented to situation, CN II-XII grossly intact. ABSENT: motor sensory deficit Psychiatric exam: PRESENT: flat affect Skin exam: PRESENT: dry, intact, warm. ABSENT: cyanosis, rash Results Laboratory Results: 01/04/17 06:40 01/04/17 06:40 01/04/17 01/04/17 06:40 06:40 WBC 9.9 RBC 3.89 Hgb 11.3 L Hct 34.6 L MCV 89 MCH 29.2 MCHC 32.8 RDW 15.6 H Plt Count 256 Seg Neutrophils % Not Reportable Lymphocytes % Not Reportable Monocytes % Not Reportable Eosinophils % Not Reportable Basophils % Not Reportable Absolute Neutrophils Not Reportable Absolute Lymphocytes Not Reportable Absolute Monocytes Not Reportable Absolute Eosinophils Not Reportable Absolute Basophils Not Reportable Sodium 138.7 Potassium 4.3 Chloride 100 Carbon Dioxide 29 Anion Gap 10 BUN 25 H Creatinine 0.91 Est GFR ( Amer) > 60 Est GFR (Non-Af Amer) > 60 Glucose 220 H Calcium 9.2 01/02/17 04:00 Sputum Gram Stain - Final 01/02/17 04:49 NT-Pro-B Natriuret Pep 480 Impressions: Chest X-Ray 01/01/17 13:42 IMPRESSION: Cardiac enlargement and mild vascular congestion. Guidance Fluoroscopy 01/03/17 00:00 IMPRESSION: SUCCESSFUL PLACEMENT OF A 5 FR DUAL LUMEN 33 CM PICC IN THE right basilic VEIN. Interventional Vascular Procedure 01/03/17 00:00 IMPRESSION: SUCCESSFUL PLACEMENT OF A 5 FR DUAL LUMEN 33 CM PICC IN THE right basilic VEIN. PICC Line Insertion 01/03/17 00:00 IMPRESSION: SUCCESSFUL PLACEMENT OF A 5 FR DUAL LUMEN 33 CM PICC IN THE right basilic VEIN. Assessment & Plan - Diagnosis (1) UTI (urinary tract infection) due to urinary indwelling Barton catheter Qualifiers: Indwelling urinary catheter type: indwelling urethral catheter Encounter type: sequela Qualified Code(s): T83.511S - Infection and inflammatory reaction due to indwelling urethral catheter, sequela; N39.0 - Urinary tract infection, site not specified Is this a current diagnosis for this admission?: YesPlan: Continue current IV antibiotics (2) Acute on chronic respiratory failure with hypoxia and hypercapnia Is this a current diagnosis for this admission?: Yes (3) Hyponatremia Is this a current diagnosis for this admission?: YesPlan: Resolved with IV hydration, secondary to mild intravascular dehydration secondary to infection (4) COPD with acute bronchitis Is this a current diagnosis for this admission?: YesPlan: As above (5) Paroxysmal atrial fibrillation with RVR Is this a current diagnosis for this admission?: YesPlan: Patient is on IV diltiazem will restart oral dialtiazem. PRN IV metoprolol if rate increases (6) Gastroesophageal reflux disease Qualifiers: Esophagitis presence: without esophagitis Qualified Code(s): K21.9 - Gastro-esophageal reflux disease without esophagitis Plan: Continue PPI therapy (7) Anemia, chronic disease Is this a current diagnosis for this admission?: YesPlan: Stable. Likely secondary to chronic kidney disease (8) Chronic pain syndrome Is this a current diagnosis for this admission?: YesPlan: Patient has been on chronic opioids for several years being followed by pain management. Continue prn norco and fentanyl patch (9) Do not resuscitate Is this a current diagnosis for this admission?: Yes (10) Generalized anxiety disorder Is this a current diagnosis for this admission?: YesPlan: Continue SSRI, prn anxiolytics (11) Hypertension Qualifiers: Hypertension type: essential hypertension Qualified Code(s): I10 - Essential (primary) hypertension Is this a current diagnosis for this admission?: YesPlan: Continue home medications (12) Obstructive sleep apnea Is this a current diagnosis for this admission?: YesPlan: CPAP QHS (13) Opiate dependence, continuous Is this a current diagnosis for this admission?: YesPlan: Will continue patient's current analgesics (14) Physical debility Is this a current diagnosis for this admission?: Yes - Time Time Spent with patient: 25-34 minutes Critical Time spent with patient: 15-24 minutes Medications reviewed and adjusted accordingly: Yes Anticipated discharge: SNF
[2017-01-04] MEDS: ERTAPENEM SODIUM 1 GM in NORMAL SALINE 50 ML IV SCH (17:54)
[2017-01-04] MEDS: OXYCODONE HCL IR 5 MG TABLET PO PRN (17:56)
[2017-01-04] MEDS: TOBRAMYCIN SULFATE NEB 40 MG/ML 30 ML NEB SCH (20:06)
[2017-01-04] MEDS: SENNOSIDES/DOCUSATE 8.6-50 MG 1 EACH TABLET PO SCH (22:17)
[2017-01-04] MEDS: RANOLAZINE 500 MG TAB.SR.12H PO SCH (22:18)
[2017-01-04] MEDS: NORMAL SALINE 10 ML SDV (SCHEDULED) IV SCH (22:21)
[2017-01-05] MEDS: DILTIAZEM HCL 60 MG TABLET PO SCH ×3 (05:25→21:28)
[2017-01-05] MEDS: LANSOPRAZOLE 30 MG TAB.RAP.DR PO SCH ×2 (05:25→17:11)
[2017-01-05] MEDS: BENZONATATE 100 MG CAPSULE PO SCH ×3 (05:25→21:27)
[2017-01-05] MEDS: TOBRAMYCIN SULFATE NEB 40 MG/ML 30 ML NEB SCH ×2 (08:13→20:05)
[2017-01-05] MEDS: IPRATROPIUM/ALBUTEROL 0.5-2.5 MG/3 ML AMPUL NEB SCH ×4 (08:13→20:05)
[2017-01-05] MEDS: BUDESONIDE NEB 0.5 MG/2 ML AMPUL NEB SCH ×2 (08:13→20:05)
[2017-01-05] MEDS: APIXABAN 2.5 MG TABLET PO SCH ×2 (09:21→17:11)
[2017-01-05] MEDS: INSULIN LISPRO 100 UNIT/ML 3 ML VIAL SUBCUT PRN ×4 (09:21→21:40)
[2017-01-05] MEDS: GUAIFENESIN 600 MG TABLET.SA PO SCH ×2 (09:21→21:28)
[2017-01-05] MEDS: PREGABALIN 100 MG CAPSULE PO SCH ×2 (09:21→21:29)
[2017-01-05] MEDS: DOCUSATE SODIUM 100 MG CAPSULE PO SCH ×2 (09:22→17:14)
[2017-01-05] MEDS: PREDNISONE 20 MG TABLET PO SCH ×2 (09:22→17:14)
[2017-01-05] MEDS: LACTOBACILLUS ACIDOPHILUS 250 MG TAB PO SCH ×2 (09:22→17:11)
[2017-01-05] MEDS: FAMOTIDINE 20 MG TABLET PO SCH ×2 (09:22→17:14)
[2017-01-05] MEDS: DULOXETINE HCL 30 MG CAPSULE.DR PO SCH (09:22)
[2017-01-05] MEDS: BUSPIRONE HCL 10 MG TABLET PO SCH ×2 (09:22→17:11)
[2017-01-05] MEDS: METOPROLOL TARTRATE 25 MG TABLET PO SCH ×2 (09:22→21:29)
[2017-01-05] MEDS: RANOLAZINE 500 MG TAB.SR.12H PO SCH ×2 (09:22→21:30)
[2017-01-05] MEDS: ASPIRIN 81 MG TABLET, ENT COATED PO SCH (09:22)
[2017-01-05] MEDS: FUROSEMIDE 40 MG TABLET PO SCH (09:22)
[2017-01-05] MEDS: NORMAL SALINE 10 ML SDV (SCHEDULED) IV SCH ×2 (09:23→21:42)
[2017-01-05] MEDS: LACTULOSE SYRUP 20 GM/30 ML UDCUP PO SCH ×2 (09:23→17:14)
[2017-01-05] MEDS: INSULIN DETEMIR 100 UNIT/ML 3 ML PEN SUBCUT SCH (09:23)
[2017-01-05] MEDS: OXYCODONE HCL IR 5 MG TABLET PO PRN ×2 (09:26→21:31)
[2017-01-05] MEDS ORDERED: MAGNESIUM HYDROXIDE SUSP 30 ML UDCUP PO ONE (13:45)
[2017-01-05] MEDS ORDERED: MAGNESIUM HYDROXIDE SUSP 30 ML UDCUP PO PRN (13:52)
[2017-01-05] MEDS: ACETAMINOPHEN 325 MG TABLET PO PRN (13:57)
--- NOTE | 2017-01-05 15:04 | PDOC PROGRESS REPORT ---
Subjective Progress Note for:: 01/05/17 Subjective:: Patient seen on morning rounds. She is resting comfortably in bed at present time. She is on BiPAP at the present time. She denies significant dyspnea at rest. She continues to have a congested cough. She denies chest pain or palpitations. She denies any nausea, vomiting, or abdominal pain. She does have issues with constipation and has not had a bowel movement in 3 days. She complains of chronic pain in her neck and back. Rest of the review of systems are negative. Physical Exam Vital Signs: Temp Pulse Resp BP Pulse Ox 97.6 F 77 18 97/68 L 100 01/05/17 08:08 01/05/17 12:25 01/05/17 12:25 01/05/17 08:08 01/05/17 12:25 Intake & Output 01/04/17 01/05/17 01/06/17 06:59 06:59 06:59 Intake Total 1450 650 Output Total 2500 1600 Balance -1050 -950 Weight 106.1 kg 104.6 kg General appearance: PRESENT: no acute distress, morbidly obese, well-developed, well-nourished Head exam: PRESENT: atraumatic, normocephalic Eye exam: PRESENT: conjunctiva pink, EOMI, PERRLA. ABSENT: scleral icterus Ear exam: PRESENT: normal external ear exam Mouth exam: PRESENT: moist, tongue midline Neck exam: ABSENT: carotid bruit, JVD, lymphadenopathy, thyromegaly Respiratory exam: PRESENT: rhonchi, symmetrical, unlabored - bilaterally Cardiovascular exam: PRESENT: irregular rhythm, +S1, +S2 Pulses: PRESENT: normal dorsalis pedis pul Vascular exam: PRESENT: normal capillary refill GI/Abdominal exam: PRESENT: normal bowel sounds, soft. ABSENT: distended, guarding, mass, organolmegaly, rebound, tenderness Rectal exam: PRESENT: deferred Extremities exam: PRESENT: full ROM. ABSENT: calf tenderness, clubbing, pedal edema Neurological exam: PRESENT: alert, awake, oriented to person, oriented to place , oriented to time, oriented to situation, CN II-XII grossly intact. ABSENT: motor sensory deficit Psychiatric exam: PRESENT: appropriate affect, normal mood. ABSENT: homicidal ideation, suicidal ideation Skin exam: PRESENT: dry, intact, warm. ABSENT: cyanosis, rash Results Laboratory Results: 01/04/17 06:40 01/04/17 06:40 01/02/17 04:49 NT-Pro-B Natriuret Pep 480 Impressions: Chest X-Ray 01/01/17 13:42 IMPRESSION: Cardiac enlargement and mild vascular congestion. Guidance Fluoroscopy 01/03/17 00:00 IMPRESSION: SUCCESSFUL PLACEMENT OF A 5 FR DUAL LUMEN 33 CM PICC IN THE right basilic VEIN. Interventional Vascular Procedure 01/03/17 00:00 IMPRESSION: SUCCESSFUL PLACEMENT OF A 5 FR DUAL LUMEN 33 CM PICC IN THE right basilic VEIN. PICC Line Insertion 01/03/17 00:00 IMPRESSION: SUCCESSFUL PLACEMENT OF A 5 FR DUAL LUMEN 33 CM PICC IN THE right basilic VEIN. Assessment & Plan - Diagnosis (1) UTI (urinary tract infection) due to urinary indwelling Barton catheter Qualifiers: Indwelling urinary catheter type: indwelling urethral catheter Encounter type: sequela Qualified Code(s): T83.511S - Infection and inflammatory reaction due to indwelling urethral catheter, sequela; N39.0 - Urinary tract infection, site not specified Is this a current diagnosis for this admission?: YesPlan: Continue current IV antibiotics (2) Acute on chronic respiratory failure with hypoxia and hypercapnia Is this a current diagnosis for this admission?: YesPlan: Patient will be placed on BIPAP therapy prn. Sputum grew pseudomonas. Started on tobramycin nebulizers two times daily. Broad spectrum antibiotics, nebulizer therapy and oral steroids. Chest xray does not show pneumonia (3) COPD with acute bronchitis Is this a current diagnosis for this admission?: YesPlan: As above (4) Paroxysmal atrial fibrillation with RVR Is this a current diagnosis for this admission?: YesPlan: Patient is on IV diltiazem will restart oral dialtiazem. PRN IV metoprolol if rate increases (5) Gastroesophageal reflux disease Qualifiers: Esophagitis presence: without esophagitis Qualified Code(s): K21.9 - Gastro-esophageal reflux disease without esophagitis Plan: Continue PPI therapy (6) Anemia, chronic disease Is this a current diagnosis for this admission?: YesPlan: Stable. Likely secondary to chronic kidney disease (7) Chronic pain syndrome Is this a current diagnosis for this admission?: YesPlan: Patient has been on chronic opioids for several years being followed by pain management. Continue prn norco and fentanyl patch (8) Do not resuscitate Is this a current diagnosis for this admission?: Yes (9) Generalized anxiety disorder Is this a current diagnosis for this admission?: YesPlan: Continue SSRI, prn anxiolytics (10) Hypertension Qualifiers: Hypertension type: essential hypertension Qualified Code(s): I10 - Essential (primary) hypertension Is this a current diagnosis for this admission?: YesPlan: Continue home medications (11) Obstructive sleep apnea Is this a current diagnosis for this admission?: YesPlan: CPAP QHS (12) Opiate dependence, continuous Is this a current diagnosis for this admission?: YesPlan: Will continue patient's current analgesics (13) Physical debility Is this a current diagnosis for this admission?: Yes (14) Hyponatremia Is this a current diagnosis for this admission?: YesPlan: Resolved - Time Time Spent with patient: 25-34 minutes Critical Time spent with patient: 15-24 minutes Medications reviewed and adjusted accordingly: Yes Anticipated discharge: SNF Within: within 48 hours
[2017-01-05] MEDS: ERTAPENEM SODIUM 1 GM in NORMAL SALINE 50 ML IV SCH (17:15)
[2017-01-05] MEDS: NORMAL SALINE 10 ML SDV (AFTER EACH USE) IV PRN (18:01)
[2017-01-05] MEDS: SENNOSIDES/DOCUSATE 8.6-50 MG 1 EACH TABLET PO SCH (21:30)
[2017-01-06] MEDS: LANSOPRAZOLE 30 MG TAB.RAP.DR PO SCH ×2 (06:04→17:02)
[2017-01-06] MEDS: BENZONATATE 100 MG CAPSULE PO SCH ×3 (06:04→21:55)
[2017-01-06] MEDS: DILTIAZEM HCL 60 MG TABLET PO SCH ×3 (06:04→21:55)
[2017-01-06] MEDS: INSULIN LISPRO 100 UNIT/ML 3 ML VIAL SUBCUT PRN ×4 (07:37→21:45)
[2017-01-06] MEDS: BUDESONIDE NEB 0.5 MG/2 ML AMPUL NEB SCH ×2 (08:17→20:07)
[2017-01-06] MEDS: TOBRAMYCIN SULFATE NEB 40 MG/ML 30 ML NEB SCH ×2 (08:17→20:08)
[2017-01-06] MEDS: IPRATROPIUM/ALBUTEROL 0.5-2.5 MG/3 ML AMPUL NEB SCH ×4 (08:17→20:07)
[2017-01-06] MEDS: METOPROLOL TARTRATE 25 MG TABLET PO SCH ×2 (09:58→21:55)
[2017-01-06] MEDS: PREDNISONE 20 MG TABLET PO SCH ×2 (09:58→17:01)
[2017-01-06] MEDS: GUAIFENESIN 600 MG TABLET.SA PO SCH ×2 (09:58→21:55)
[2017-01-06] MEDS: APIXABAN 2.5 MG TABLET PO SCH ×2 (09:59→17:03)
[2017-01-06] MEDS: RANOLAZINE 500 MG TAB.SR.12H PO SCH ×2 (09:59→21:55)
[2017-01-06] MEDS: FAMOTIDINE 20 MG TABLET PO SCH ×2 (09:59→17:01)
[2017-01-06] MEDS: DULOXETINE HCL 30 MG CAPSULE.DR PO SCH (09:59)
[2017-01-06] MEDS: BUSPIRONE HCL 10 MG TABLET PO SCH ×2 (09:59→17:02)
[2017-01-06] MEDS: ASPIRIN 81 MG TABLET, ENT COATED PO SCH (09:59)
[2017-01-06] MEDS: OXYCODONE HCL IR 5 MG TABLET PO PRN (09:59)
[2017-01-06] MEDS: INSULIN DETEMIR 100 UNIT/ML 3 ML PEN SUBCUT SCH (10:00)
[2017-01-06] MEDS: LACTOBACILLUS ACIDOPHILUS 250 MG TAB PO SCH ×2 (10:00→17:01)
[2017-01-06] MEDS: FUROSEMIDE 40 MG TABLET PO SCH (10:00)
[2017-01-06] MEDS: LACTULOSE SYRUP 20 GM/30 ML UDCUP PO SCH ×2 (10:00→17:01)
[2017-01-06] MEDS: PREGABALIN 100 MG CAPSULE PO SCH ×2 (10:00→21:55)
[2017-01-06] MEDS: DOCUSATE SODIUM 100 MG CAPSULE PO SCH ×2 (10:00→17:01)
[2017-01-06] MEDS: NORMAL SALINE 10 ML SDV (SCHEDULED) IV SCH (10:01)
--- NOTE | 2017-01-06 10:12 | PDOC PROGRESS REPORT ---
Subjective Progress Note for:: 01/06/17 Subjective:: Patient seen on morning rounds. She is resting comfortably in bed at present time. She is on BiPAP at the present time. She denies significant dyspnea at rest. She continues to have a congested cough. She denies chest pain or palpitations. She denies any nausea, vomiting, or abdominal pain. She does have issues with constipation and has not had a bowel movement in 3 days. She complains of chronic pain in her neck and back. Rest of the review of systems are negative. Physical Exam Vital Signs: Temp Pulse Resp BP Pulse Ox 97.7 F 74 18 117/61 99 01/06/17 08:04 01/06/17 08:26 01/06/17 08:26 01/06/17 08:04 01/06/17 08:26 Intake & Output 01/05/17 01/06/17 01/07/17 06:59 06:59 06:59 Intake Total 650 1402 Output Total 1600 2500 Balance -950 -1098 Weight 104.6 kg 106 kg General appearance: PRESENT: no acute distress, morbidly obese, well-developed, well-nourished Head exam: PRESENT: atraumatic, normocephalic Eye exam: PRESENT: conjunctiva pink, EOMI, PERRLA. ABSENT: scleral icterus Ear exam: PRESENT: normal external ear exam Mouth exam: PRESENT: moist, tongue midline Neck exam: ABSENT: carotid bruit, JVD, lymphadenopathy, thyromegaly Respiratory exam: PRESENT: clear to auscultation elia. ABSENT: rales, rhonchi, wheezes Cardiovascular exam: PRESENT: RRR. ABSENT: diastolic murmur, rubs, systolic murmur Pulses: PRESENT: normal dorsalis pedis pul Vascular exam: PRESENT: normal capillary refill GI/Abdominal exam: PRESENT: normal bowel sounds, soft. ABSENT: distended, guarding, mass, organolmegaly, rebound, tenderness Rectal exam: PRESENT: deferred Extremities exam: PRESENT: full ROM. ABSENT: calf tenderness, clubbing, pedal edema Neurological exam: PRESENT: alert, awake, oriented to person, oriented to place , oriented to time, oriented to situation, CN II-XII grossly intact. ABSENT: motor sensory deficit Psychiatric exam: PRESENT: appropriate affect, normal mood. ABSENT: homicidal ideation, suicidal ideation Skin exam: PRESENT: dry, intact, warm. ABSENT: cyanosis, rash Results Laboratory Results: 01/04/17 06:40 01/04/17 06:40 01/02/17 04:00 Sputum Gram Stain - Final 01/02/17 04:00 Sputum Sputum Culture - Final Mrsa (Meth Resis Staph Aureus) Pseudomonas Aeruginosa Normal Catarina Absent 01/02/17 04:49 NT-Pro-B Natriuret Pep 480 Impressions: Chest X-Ray 01/01/17 13:42 IMPRESSION: Cardiac enlargement and mild vascular congestion. Guidance Fluoroscopy 01/03/17 00:00 IMPRESSION: SUCCESSFUL PLACEMENT OF A 5 FR DUAL LUMEN 33 CM PICC IN THE right basilic VEIN. Interventional Vascular Procedure 01/03/17 00:00 IMPRESSION: SUCCESSFUL PLACEMENT OF A 5 FR DUAL LUMEN 33 CM PICC IN THE right basilic VEIN. PICC Line Insertion 01/03/17 00:00 IMPRESSION: SUCCESSFUL PLACEMENT OF A 5 FR DUAL LUMEN 33 CM PICC IN THE right basilic VEIN. Assessment & Plan - Diagnosis (1) UTI (urinary tract infection) due to urinary indwelling Barton catheter Qualifiers: Indwelling urinary catheter type: indwelling urethral catheter Encounter type: sequela Qualified Code(s): T83.511S - Infection and inflammatory reaction due to indwelling urethral catheter, sequela; N39.0 - Urinary tract infection, site not specified Is this a current diagnosis for this admission?: YesPlan: Continue current IV antibiotics (2) Acute on chronic respiratory failure with hypoxia and hypercapnia Is this a current diagnosis for this admission?: YesPlan: Patient will be placed on BIPAP therapy prn. Sputum grew pseudomonas. Started on tobramycin nebulizers two times daily. Broad spectrum antibiotics, nebulizer therapy and oral steroids. Chest xray does not show pneumonia (3) COPD with acute bronchitis Is this a current diagnosis for this admission?: YesPlan: As above (4) Paroxysmal atrial fibrillation with RVR Is this a current diagnosis for this admission?: YesPlan: Patient is on IV diltiazem will restart oral dialtiazem. PRN IV metoprolol if rate increases (5) Gastroesophageal reflux disease Qualifiers: Esophagitis presence: without esophagitis Qualified Code(s): K21.9 - Gastro-esophageal reflux disease without esophagitis Plan: Continue PPI therapy (6) Anemia, chronic disease Is this a current diagnosis for this admission?: YesPlan: Stable. Likely secondary to chronic kidney disease (7) Chronic pain syndrome Is this a current diagnosis for this admission?: YesPlan: Patient has been on chronic opioids for several years being followed by pain management. Continue prn norco and fentanyl patch (8) Do not resuscitate Is this a current diagnosis for this admission?: Yes (9) Generalized anxiety disorder Is this a current diagnosis for this admission?: YesPlan: Continue SSRI, prn anxiolytics (10) Hypertension Qualifiers: Hypertension type: essential hypertension Qualified Code(s): I10 - Essential (primary) hypertension Is this a current diagnosis for this admission?: YesPlan: Continue home medications (11) Obstructive sleep apnea Is this a current diagnosis for this admission?: YesPlan: CPAP QHS (12) Opiate dependence, continuous Is this a current diagnosis for this admission?: YesPlan: Will continue patient's current analgesics (13) Physical debility Is this a current diagnosis for this admission?: Yes (14) Hyponatremia Is this a current diagnosis for this admission?: YesPlan: Resolved - Time Time Spent with patient: 25-34 minutes Critical Time spent with patient: 15-24 minutes Medications reviewed and adjusted accordingly: Yes Anticipated discharge: Home with Homehealth - Inpatient Certification Based on my medical assessment, after consideration of the patient's comorbidities, presenting symptoms, or acuity I expect that the services needed warrant INPATIENT care.: Yes I certify that my determination is in accordance with my understanding of Medicare's requirements for reasonable and necessary INPATIENT services [42 CFR 412.3e].: Yes Medical Necessity: Need for IV Antibiotics
[2017-01-06] MEDS ORDERED: POLYETHYLENE GLYCOL 3350 POWDER 17 GM/1 PACKET PO ONE (11:00)
[2017-01-06] MEDS: ACETAMINOPHEN 325 MG TABLET PO PRN (13:46)
[2017-01-06] MEDS: ERTAPENEM SODIUM 1 GM in NORMAL SALINE 50 ML IV SCH (17:02)
[2017-01-06] MEDS: SENNOSIDES/DOCUSATE 8.6-50 MG 1 EACH TABLET PO SCH (21:56)
[2017-01-06] MEDS: NORMAL SALINE 10 ML SDV (AFTER EACH USE) IV PRN (21:57)
[2017-01-07] MEDS: NORMAL SALINE 10 ML SDV (SCHEDULED) IV SCH ×2 (03:13→09:49)
[2017-01-07 05:41] LABS: ANION GAP 7 (5-19); BLOOD UREA NITROGEN 29 mg/dL (7-20); CALCIUM 8.7 mg/dL (8.4-10.2); CARBON DIOXIDE 31 mmol/L (22-30); CHLORIDE 99 mmol/L (98-107); CREATININE RESULT 1.08 mg/dL (0.52-1.25); GLUCOSE 225 mg/dL (75-110); POTASSIUM 4.2 mmol/L (3.6-5.0); SODIUM 136.8 mmol/L (137-145)
[2017-01-07] MEDS: DILTIAZEM HCL 60 MG TABLET PO SCH ×2 (06:11→14:20)
[2017-01-07] MEDS: BENZONATATE 100 MG CAPSULE PO SCH ×2 (06:11→14:20)
[2017-01-07] MEDS: LANSOPRAZOLE 30 MG TAB.RAP.DR PO SCH ×2 (06:12→16:07)
[2017-01-07 06:20] LABS: HEMATOCRIT 31.2 % (36.0-47.0); HEMOGLOBIN 10.5 g/dL (12.0-15.5); HGB HCT DIFFERENCE 0.3; MEAN CORPUSCULAR HEMOGLOBIN 29.6 pg (27.0-33.4); MEAN CORPUSCULAR HGB CONC 33.5 g/dL (32.0-36.0); MEAN CORPUSCULAR VOLUME 88 fl (80-97); RED BLOOD COUNT 3.53 10^6/uL (3.72-5.28); RED CELL DISTRIBUTION WIDTH 15.3 % (11.5-14.0)
[2017-01-07 06:24] LABS: BASOPHILS % (MANUAL) 0 % (0-2); EOSINOPHILS % (MANUAL) 0 % (0-6); LYMPHOCYTES % (MANUAL) 8 % (13-45); TOTAL CELLS COUNTED 100
[2017-01-07 06:29] LABS: ANISOCYTOSIS SLIGHT; HYPOCHROMASIA SLIGHT; POLYCHROMASIA SLIGHT; ROULEAUX SLIGHT
[2017-01-07] MEDS: IPRATROPIUM/ALBUTEROL 0.5-2.5 MG/3 ML AMPUL NEB SCH ×3 (08:05→16:13)
[2017-01-07] MEDS: BUDESONIDE NEB 0.5 MG/2 ML AMPUL NEB SCH (08:05)
[2017-01-07] MEDS: TOBRAMYCIN SULFATE NEB 40 MG/ML 30 ML NEB SCH (08:06)
[2017-01-07] MEDS: LACTULOSE SYRUP 20 GM/30 ML UDCUP PO SCH (09:41)
[2017-01-07] MEDS: BUSPIRONE HCL 10 MG TABLET PO SCH (09:42)
[2017-01-07] MEDS: FENTANYL 25 MCG/HR PATCH.TD72 TD SCH (09:44)
[2017-01-07] MEDS: FAMOTIDINE 20 MG TABLET PO SCH (09:45)
[2017-01-07] MEDS: RANOLAZINE 500 MG TAB.SR.12H PO SCH (09:45)
[2017-01-07] MEDS: PREDNISONE 20 MG TABLET PO SCH (09:46)
[2017-01-07] MEDS: ASPIRIN 81 MG TABLET, ENT COATED PO SCH (09:46)
[2017-01-07] MEDS: PREGABALIN 100 MG CAPSULE PO SCH (09:46)
[2017-01-07] MEDS: DOCUSATE SODIUM 100 MG CAPSULE PO SCH (09:46)
[2017-01-07] MEDS: DULOXETINE HCL 30 MG CAPSULE.DR PO SCH (09:46)
[2017-01-07] MEDS: GUAIFENESIN 600 MG TABLET.SA PO SCH (09:47)
[2017-01-07] MEDS: LACTOBACILLUS ACIDOPHILUS 250 MG TAB PO SCH (09:47)
[2017-01-07] MEDS: FUROSEMIDE 40 MG TABLET PO SCH (09:47)
[2017-01-07] MEDS: METOPROLOL TARTRATE 25 MG TABLET PO SCH (09:47)
[2017-01-07] MEDS: OXYCODONE HCL IR 5 MG TABLET PO PRN (09:48)
[2017-01-07] MEDS: APIXABAN 2.5 MG TABLET PO SCH (09:49)
[2017-01-07] MEDS ORDERED: POLYETHYLENE GLYCOL 3350 POWDER 17 GM/1 PACKET PO SCH (10:00)
[2017-01-07] MEDS: INSULIN DETEMIR 100 UNIT/ML 3 ML PEN SUBCUT SCH (10:01)
--- NOTE | 2017-01-07 11:53 | PDOC TRANSFER SUMMARY ---
General - Admit/Disc Date/PCP Admission Date/Primary Care Provider: 01/01/17 15:23 MUSA HODGSON MD Discharge Date: 01/07/17 - Discharge Diagnosis (1) UTI (urinary tract infection) due to urinary indwelling Barton catheter Is this a current diagnosis for this admission?: YesSummary: Continue Invanz for ESBL for 8 more days (2) Acute on chronic respiratory failure with hypoxia and hypercapnia Is this a current diagnosis for this admission?: YesSummary: Sputum grew pseudomonas, continue tobramycin nebulizers bid for the next 8 days (3) COPD with acute bronchitis Is this a current diagnosis for this admission?: YesSummary: As above, nebulizers, mucinex and delsym. Steroids weaned off (4) Paroxysmal atrial fibrillation with RVR Is this a current diagnosis for this admission?: YesSummary: Metoprolol added for improved rate control. Continue cardizem (5) Gastroesophageal reflux disease Summary: Continue PPO and H2 daniela (6) Anemia, chronic disease Is this a current diagnosis for this admission?: YesSummary: Stable (7) Chronic pain syndrome Is this a current diagnosis for this admission?: YesSummary: Continue current pain management (8) Do not resuscitate Is this a current diagnosis for this admission?: Yes (9) Generalized anxiety disorder Is this a current diagnosis for this admission?: YesSummary: Continue current medications (10) Hypertension Is this a current diagnosis for this admission?: YesSummary: Normotensive on current medications (11) Obstructive sleep apnea Is this a current diagnosis for this admission?: YesSummary: BIPAP at (12) Opiate dependence, continuous Is this a current diagnosis for this admission?: Yes (13) Physical debility Is this a current diagnosis for this admission?: Yes (14) Hyponatremia Is this a current diagnosis for this admission?: YesSummary: Resolved. Likely from mild dehydration resolved with hydration - Additional Information Resuscitation Status: Do Not Resuscitate Discharge Diet: Cardiac, Diabetic Discharge Activity: Activity As Tolerated, Balance Activity w/Rest Home Medications: Acetaminophen [Tylenol 325 mg Tablet] 650 mg PO Q4HP PRN 11/25/16 Albuterol Sulfate [Albuterol Sulfate 2.5mg/3 mL] 3 ml NEB RTQ2HP PRN 11/25/16 Aspirin [Ecotrin 81 mg EC Tablet] 81 mg PO DAILY 11/25/16 Buspirone HCl [Buspar 5 mg Tablet] 5 mg PO BID 11/25/16 Dextromethorphan HBr [Delsym] 10 ml PO Q12HP PRN 11/25/16 Diphenhydramine HCl [Benadryl 25 mg Capsule] 25 mg PO Q6HP PRN 11/25/16 Dronabinol [Marinol 2.5 mg Capsule] 2.5 mg PO BID 11/25/16 Duloxetine HCl 90 mg PO DAILY 11/25/16 Famotidine [Pepcid 20 mg Tablet] 20 mg PO BID 11/25/16 Furosemide [Lasix] 40 mg PO DAILY 11/25/16 Insulin Detemir [Levemir Insulin 100 units/mL] 30 units SQ DAILY 11/25/16 Ipratropium [place] [Atrovent 0.02% Neb 0.5 mg/2.5 ml Ampul] 2.5 ml NEB RTQ4 Lactulose [Cephulac Syrup 20 gm/30 ml Udcup] 30 ml PO BID 11/25/16 Levalbuterol HCl [Xopenex Neb 1.25 mg/3 ml Ampul] 3 ml NEB RTQ4 11/25/16 Linaclotide [Linzess 145 Mcg Capsule] 145 mg PO QAM 11/25/16 Nitroglycerin [Nitrostat 0.4 mg (1/150 Gr) Tabs 25/Bottle] 0.4 mg PO Q5MP PRN Omeprazole 20 mg PO QAM 11/25/16 Potassium Chloride [K-Tab ER] 40 meq PO DAILY 11/25/16 Pregabalin [Lyrica 100 mg Capsule] 100 mg PO Q12 11/25/16 Promethazine HCl [Phenergan 25 mg Tablet] 25 mg PO Q6HP PRN 11/25/16 Ranolazine [Ranexa 500 mg Tab.sr] 500 mg PO Q12 11/25/16 Apixaban [Eliquis 2.5 mg Tablet] 2.5 mg PO BID tablet 11/27/16 Diltiazem HCl [Cardizem 60 mg Tablet] 60 mg PO Q8 tablet 11/27/16 Benzonatate [Tessalon Perles 100 mg Capsule] 100 mg PO Q8 #30 capsule 01/07/17 Budesonide [Pulmicort Neb 0.5 mg/2 ml Ampul] 0.5 mg NEB RTQ12 ampul.neb Docusate Sodium [Colace 100 mg Capsule] 100 mg PO BID capsule 01/07/17 Ertapenem Sodium [Invanz Inj 1 gm Vial] 1 gm IV QPM vial 01/07/17 Fentanyl [Duragesic 25 mcg/hr Transdermal Patch] 1 patch TD Q3DAYS #2 patch.td72 01/07/17 Guaifenesin [Mucinex Sr 600 mg Tablet.sa] 1,200 mg PO Q12 tablet.sa 01/07/17 Heparin Sodium,Porcine [Heparin Flush 10 Unit/ml 5 ml Disp.syrg] 30 unit IV .AFTER EACH USE PRN disp.syrin 01/07/17 Heparin Sodium,Porcine [Heparin Flush 10 Unit/ml 5 ml Disp.syrg] 30 unit IV Q12 disp.syrin 01/07/17 Hydrocodone/Acetaminophen [[place] 5-325 mg Tablet] 1 tab PO Q4HP PRN #20 tablet 01/07/17 Ipratropium/Albuterol Sulfate [Duoneb 3 ml Ampul] 3 ml NEB [id number] vial.neb 04/16 Magnesium Hydroxide [Milk of Magnesia 30 ml Udcup] 30 ml PO DAILYP PRN udc 04/16 Metoprolol Tartrate [Lopressor 25 mg Tablet] 25 mg PO Q12 tablet 01/07/17 Polyethylene Glycol 3350 [Miralax Powder 17 gm/Packet] 17 gm PO DAILY powd.pack 01/07/17 Sennosides/Docusate 8.6-50 mg [Senna Plus Tablet] 2 each PO QHS tablet Tobramycin Sulfate [Tobramycin Neb 40 mg/ml 30 ml Vial] 300 mg NEB RTQ12 #0 ml 01/07/17 History of Present Illness Admission Date/PCP: 01/01/17 15:23 MUSA HODGSON MD Patient complains of: Fever and cough History of Present Illness: PORSHA WALDRON is a 71 year old obese diabetic female, with underlying asthma and 24/7 3 L per nasal cannula oxygen-dependent COPD, along with underlying obstructive sleep apnea, diabetes mellitus, and multiple other comorbidities, well known to the hospitalist service for multiple admissions for respiratory problems and/or recurrent urinary tract infections, who presents to the emergency room for evaluation of above complaint. She describes a 3 day history or so of slowly progressive difficulty breathing, subjective fever, increased cough, gradually producing more and more sputum. Hospital Course Hospital Course: Patient was started on IV diltiazem for rate control. She was restarted on her oral diltiazem and low-dose metoprolol. She has improved heart rate control with these medications. The IV diltiazem was discontinued. Urine is positive for UTI. Culture grew ESBL. Patient has been started on Invanz because of this to from prior cultures. Chest x-ray showed no infiltrates or effusions. Sputum grew Pseudomonas and MRSA. He was treated with IV gentamicin and tobramycin nebulizers. Labs normalized. She is back to baseline. Blood cultures remained clear. PICC line was placed to complete antibiotic treatment. She was transferred back to [facility] social work is aware. Physical Exam Vital Signs: Temp Pulse Resp BP Pulse Ox 97.5 F 64 20 125/71 100 01/07/17 07:17 01/07/17 08:05 01/07/17 08:05 01/07/17 07:17 01/07/17 08:05 Intake & Output 01/06/17 01/07/17 01/08/17 06:59 06:59 06:59 Intake Total 1402 1797 Output Total 2500 2790 Balance -1098 -993 Weight 106 kg 106.8 kg General appearance: PRESENT: no acute distress, morbidly obese, well-developed, well-nourished Head exam: PRESENT: atraumatic Eye exam: PRESENT: conjunctival injection Ear exam: PRESENT: normal external ear exam Mouth exam: PRESENT: moist, tongue midline Neck exam: ABSENT: carotid bruit, JVD, lymphadenopathy, thyromegaly Respiratory exam: PRESENT: rhonchi, symmetrical, unlabored Cardiovascular exam: PRESENT: irregular rhythm, +S1, +S2. ABSENT: diastolic murmur, rubs, systolic murmur Pulses: PRESENT: normal carotid pulses, normal radial pulses Vascular exam: PRESENT: normal capillary refill GI/Abdominal exam: PRESENT: normal bowel sounds, soft Rectal exam: PRESENT: deferred Extremities exam: PRESENT: full ROM, +1 edema - pedal. ABSENT: calf tenderness , clubbing, pedal edema Musculoskeletal exam: PRESENT: normal inspection Neurological exam: PRESENT: alert, awake, oriented to person, oriented to place , oriented to time, oriented to situation, CN II-XII grossly intact. ABSENT: motor sensory deficit Psychiatric exam: PRESENT: flat affect Skin exam: PRESENT: dry, intact, warm. ABSENT: cyanosis, rash Results Laboratory Results: 01/07/17 04:55 01/07/17 04:55 01/07/17 01/07/17 04:55 04:55 WBC 9.0 RBC 3.53 L Hgb 10.5 L Hct 31.2 L MCV 88 MCH 29.6 MCHC 33.5 RDW 15.3 H Plt Count 236 Seg Neutrophils % Not Reportable Lymphocytes % Not Reportable Monocytes % Not Reportable Eosinophils % Not Reportable Basophils % Not Reportable Absolute Neutrophils Not Reportable Absolute Lymphocytes Not Reportable Absolute Monocytes Not Reportable Absolute Eosinophils Not Reportable Absolute Basophils Not Reportable Sodium 136.8 L Potassium 4.2 Chloride 99 Carbon Dioxide 31 H Anion Gap 7 BUN 29 H Creatinine 1.08 Est GFR ( Amer) > 60 Est GFR (Non-Af Amer) 50 L Glucose 225 H Calcium 8.7 01/01/17 16:10 Blood Blood Culture - Final NO GROWTH IN 5 DAYS 01/02/17 04:49 NT-Pro-B Natriuret Pep 480 Impressions: Chest X-Ray 01/01/17 13:42 IMPRESSION: Cardiac enlargement and mild vascular congestion. Guidance Fluoroscopy 01/03/17 00:00 IMPRESSION: SUCCESSFUL PLACEMENT OF A 5 FR DUAL LUMEN 33 CM PICC IN THE right basilic VEIN. Interventional Vascular Procedure 01/03/17 00:00 IMPRESSION: SUCCESSFUL PLACEMENT OF A 5 FR DUAL LUMEN 33 CM PICC IN THE right basilic VEIN. PICC Line Insertion 01/03/17 00:00
[2017-01-07] MEDS: INSULIN LISPRO 100 UNIT/ML 3 ML VIAL SUBCUT PRN (12:09)
[2017-01-07 14:09] VITALS: BP 123/62
== END 2017-01-07 16:55 | DRG 698 ==
LOC: ER 13:28 → EH 15:23 → UNDOADMIN 15:37 → EH 15:37 → 3W 16:43
PROVIDERS: ADMIT Family Medicine; ATTEND Family Medicine
PROC: 5A09457 Assistance with Respiratory Ventilation, 24-96 Consecutive Hours, Continuous Positive Airway Pressure (ICD-10-PCS; principal; 2017-01-01)
PROC: 3E0F73Z Introduction of Anti-inflammatory into Respiratory Tract, Via Natural or Artificial Opening (ICD-10-PCS; 2017-01-01)
PROC: 02HV33Z Insertion of Infusion Device into Superior Vena Cava, Percutaneous Approach (ICD-10-PCS; 2017-01-03)
PROC: 3E04329 Introduction of Other Anti-infective into Central Vein, Percutaneous Approach (ICD-10-PCS; 2017-01-03)
PROC: B518ZZA Fluoroscopy of Superior Vena Cava, Guidance (ICD-10-PCS; 2017-01-03)
PROC: B548ZZA Ultrasonography of Superior Vena Cava, Guidance (ICD-10-PCS; 2017-01-03)
DX: T83.511A Infection and inflammatory reaction due to indwelling urethral catheter, initial encounter (principal); J96.21 Acute and chronic respiratory failure with hypoxia; J96.22 Acute and chronic respiratory failure with hypercapnia; J44.0 Chronic obstructive pulmonary disease with (acute) lower respiratory infection; E87.1 Hypo-osmolality and hyponatremia; Z68.41 Body mass index [BMI] 40.0-44.9, adult; I50.32 Chronic diastolic (congestive) heart failure; N39.0 Urinary tract infection, site not specified; B95.2 Enterococcus as the cause of diseases classified elsewhere; B96.20 Unspecified Escherichia coli [E. coli] as the cause of diseases classified elsewhere; J20.9 Acute bronchitis, unspecified; I48.0 Paroxysmal atrial fibrillation; K21.9 Gastro-esophageal reflux disease without esophagitis; G89.4 Chronic pain syndrome; Z66 Do not resuscitate; F41.1 Generalized anxiety disorder; G47.33 Obstructive sleep apnea (adult) (pediatric); E86.0 Dehydration; E11.9 Type 2 diabetes mellitus without complications; B95.62 Methicillin resistant Staphylococcus aureus infection as the cause of diseases classified elsewhere; E66.01 Morbid (severe) obesity due to excess calories; I11.0 Hypertensive heart disease with heart failure; I25.2 Old myocardial infarction; K44.9 Diaphragmatic hernia without obstruction or gangrene; M10.9 Gout, unspecified; F32.9 Major depressive disorder, single episode, unspecified; D63.1 Anemia in chronic kidney disease; Z79.891 Long term (current) use of opiate analgesic; Z79.899 Other long term (current) drug therapy; Z99.81 Dependence on supplemental oxygen; Z79.4 Long term (current) use of insulin; Z79.82 Long term (current) use of aspirin; Z88.2 Allergy status to sulfonamides; Z88.8 Allergy status to other drugs, medicaments and biological substances; Z86.711 Personal history of pulmonary embolism; Z90.49 Acquired absence of other specified parts of digestive tract; Z90.710 Acquired absence of both cervix and uterus; Z74.01 Bed confinement status; Z82.61 Family history of arthritis; Z83.3 Family history of diabetes mellitus; Z82.3 Family history of stroke; Z82.49 Family history of ischemic heart disease and other diseases of the circulatory system
CPT/HCPCS: 36415; 36569; 71010; 76937; 77001; 80048; 80053; 80202; 81001; 82803; 82962; 83605; 83880; 85025; 85610; 87040; 87070; 87077; 87086; 87088; 87186; 87205; 93005; 93010; 94660; 94667; 96365; 99285; J1335; J1580; J1642; J1815; J3370; J3490; J7030; J7060; J7512; J7620; J7685

== ENCOUNTER 2017-01-13 19:09 | Inpatient (IN) | payer MEDICARE, MEDICAID ==
[2017-01-13] MEDS ORDERED: ALBUTEROL SULFATE 0.083% NEB 2.5 MG/3 ML AMPUL NEB ONE (19:23)
[2017-01-13] MEDS ORDERED: IPRATROPIUM/ALBUTEROL 0.5-2.5 MG/3 ML AMPUL NEB ONE (19:23)
[2017-01-13] MEDS ORDERED: METHYLPREDNISOLONE INJ 125 MG/2 ML SDV IV ONE (19:25)
--- NOTE | 2017-01-13 19:31 | ER Document Report ---
ED General - General Stated Complaint: DIFFICULTY BREATHING Time Seen by Provider: 01/13/17 19:12 Notes: Patient is a 71-year-old female with an extensive past medical history including COPD with chronic oxygen dependence, chronic opiate dependency, recent pseudomonal pneumonia discharged on inhaled tobramycin which apparently she did not receive at the nursing facility, as well as a recurrent urinary tract infection. She has a PICC line in place for IV gentamicin and ertapenem which apparently she has been receiving. Patient arrives with 3 days of progressively worsening shortness of breath and generalized fatigue. States she is not able to exert herself at all or this makes her completely out of breath. States this is not all her normal. It is not improved by anything. She was referred to the hospital by her care home today. She has not had a recorded fever at that facility. History is otherwise limited at time of arrival secondary to patient's distress. TRAVEL OUTSIDE OF THE [place] IN LAST 30 DAYS: No - Related Data Allergies/Adverse Reactions: Sulfa (Sulfonamide Antibiotics) Allergy (Intermediate, Verified 11/24/16 17:35) adhesive tape Allergy (Verified 11/24/16 17:35) atorvastatin calcium [From Lipitor] Allergy (Verified 11/24/16 17:35) celecoxib [From Celebrex] Allergy (Verified 11/24/16 17:35) Past Medical History - General Information source: Patient, Emergency Med Personnel - Social History Smoking Status: Former Smoker Frequency of alcohol use: None Drug Abuse: None Lives with: [facility] Family History: Arthritis, CAD, CVA, DM, Hypertension - Past Medical History Cardiac Medical History: Reports: Hx Atrial Fibrillation, Hx Congestive Heart Failure - Diastolic dysfunction, Hx Heart Attack, Hx Hypertension - essential, Hx Pulmonary Embolism, Hx Heart Murmur Denies: Hx Coronary Artery Disease, Hx DVT, Hx Hypercholesterolemia, Hx Peripheral Vascular Disease Pulmonary Medical History: Reports: Hx Asthma, Hx Bronchitis, Hx COPD, Hx Pneumonia - Recurrent MRSA pneumonia., Hx Sleep Apnea - Uses C Pap Denies: Hx Tuberculosis Neurological Medical History: Denies: Hx Seizures Endocrine Medical History: Reports: Hx Diabetes Mellitus Type 2. Denies: Hx Diabetes Mellitus Type 1, Hx Hyperthyroidism, Hx Hypothyroidism Renal/ Medical History: Reports: Hx Renal Insufficiency. Denies: Hx Peritoneal Dialysis GI Medical History: Reports: Hx Gastroesophageal Reflux Disease, Hx Hiatal Hernia. Denies: Hx Cirrhosis, Hx Hepatitis Musculoskeltal Medical History: Reports Hx Arthritis, Reports Hx Fibromyalgia, Reports Hx Gout, Reports Hx Muscle Weakness Skin Medical History: Denies Hx Eczema, Denies Hx Psoriasis Psychiatric Medical History: Reports: Hx Anxiety, Hx Depression Infectious Medical History: Reports: Hx MRSA. Denies: Hx Hepatitis Past Surgical History: Reports: Hx Appendectomy, Hx Cholecystectomy, Hx Hysterectomy, Hx Orthopedic Surgery - Multiple left hip procedures, 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 - Immunizations Hx Diphtheria, Pertussis, Tetanus Vaccination: Yes Hx Pneumococcal Vaccination: 05/20/13 Review of Systems - Review of Systems Notes: Constitutional: Negative for fever. HENT: Negative for sore throat. Eyes: Negative for visual changes. Cardiovascular: Negative for chest pain. Respiratory: Positive for shortness of breath. Gastrointestinal: Negative for abdominal pain, vomiting or diarrhea. Genitourinary: Negative for dysuria. Musculoskeletal: Negative for back pain. Skin: Negative for rash. Neurological: Negative for headaches, weakness or numbness. 10 point ROS negative except as marked above and in HPI. Physical Exam - Vital signs Vitals: Temp Pulse Ox 99.3 F 100 01/13/17 19:26 01/13/17 19:26 Interpretation: Tachycardic, Tachypneic Notes: PHYSICAL EXAMINATION: GENERAL: Ill in appearance, in moderate to severe respiratory distress HEAD: Atraumatic, normocephalic. EYES: Pupils equal round and reactive to light, extraocular movements intact, sclera anicteric, conjunctiva are normal. ENT: nares patent, oropharynx clear without exudates. Moderately dry mucous membranes. NECK: Normal range of motion, supple without lymphadenopathy LUNGS: Diffuse wheezing in all lung mead worse on the expiratory phase. Mildly diminished air movement in all lung mead. HEART: Irregular tachycardia without murmurs ABDOMEN: Soft, nontender, normoactive bowel sounds. No guarding, no rebound. No masses appreciated. EXTREMITIES: Normal range of motion, no pitting or edema. No cyanosis. NEUROLOGICAL: No focal neurological deficits. Moves all extremities spontaneously and on command. PSYCH: Normal mood, normal affect. SKIN: Warm, Dry, normal turgor, there is erythema along the medial aspect of the distal left lower extremity which patient states has been present for a prolonged period of time. Course - Re-evaluation Re-evalutation: 01/13/17 19:29 Patient presents in moderate respiratory distress, initial respiratory rate of 32 saturating 98% on 4 L by nasal cannula which is 1 L above her baseline. Patient was recently discharged from this facility for pseudomonal pneumonia and currently receiving IV antibiotics through a PICC line. Patient was also supposed to be receiving tobramycin nebulizers as part of her therapy for the pseudomonal pneumonia. However review of the mar from [facility] reveals the patient has never received this medication during her stay in that facility despite the patient reported that she was told she had been given this medication. This would explain patient's clinical worsening as she has not received appropriate therapy for her diagnosed pseudomonal pneumonia. She does currently meet sepsis criteria secondary to her tachycardia, tachypnea, and presumed source of infection. sepsis laboratories have been obtained. She will placed on hospital monitor. She has significant expiratory wheezing in all lung mead on examination and I suspect a component of COPD exacerbation as prior to presentation today. She is in place on continuous nebulizers, IV Solu- Medrol and magnesium will be administered. Will begin IV fluids and place patient on a hospital monitor. Will also obtain a repeat chest x-ray. Patient is critically ill at this time will require frequent reassessments. 01/13/17 21:50 Patient continues to be with mild tachypnea current respiratory at 28 breaths per minute after receiving continuous nebulizers. She however appears much improved relative to initial assessment. Chest x-ray shows unchanged findings relative to prior chest x-ray. Other labs are overall unremarkable without any significant lactate elevation or acidosis on venous blood gas. However, given her continued tachypnea and inability to receive tobramycin nebulizers for pseudomonal pneumonia in her facility, will plan for admission to the hospitalist service. 01/14/17 02:43 Patient's work of breathing remains much improved since time of presentation after nebulizers, magnesium steroids and inhaled tobramycin. I discussed this case with Dr. Borges who is accepted the patient for admission. She is in stable condition at this time. - Vital Signs Vital signs: Temp Pulse Resp BP Pulse Ox 99.3 F 20 128/63 H 98 01/13/17 19:26 01/14/17 02:01 01/14/17 02:01 01/14/17 02:01 - Laboratory Result Diagrams: 01/13/17 19:40 01/13/17 19:40 Laboratory results interpreted by me: 01/13/17 01/13/17 01/13/17 19:40 19:40 19:40 RBC 3.70 L Hgb 10.7 L Hct 32.8 L RDW 15.7 H VBG HCO3 32.5 H Est GFR ( Amer) 59 L Est GFR (Non-Af Amer) 49 L Glucose 209 H Total Protein 6.2 L Albumin 3.1 L Ur Leukocyte Esterase 01/13/17 20:50 RBC Hgb Hct RDW VBG HCO3 Est GFR ( Amer) Est GFR (Non-Af Amer) Glucose Total Protein Albumin Ur Leukocyte Esterase MODERATE H - Diagnostic Test Radiology reviewed: Image reviewed, Reports reviewed Radiology results interpreted by me: 01/14/17 02:43 Chest x-ray: Unchanged from prior. No acute infiltrate. - EKG Interpretation by Me Additional EKG results interpreted by me: 01/14/17 02:43 Sinus rhythm with frequent PACs. Rate 96. No ST elevations or depressions. QTC is 471. Critical Care Note - Critical Care Note Total time excluding time spent on procedures (mins): 45 Comments: Critical care time spent obtaining history from patient or surrogate, discussions with consultants, development of treatment plan with patient or surrogate, evaluation of patient's response to treatment, examination of patient , ordering and performing treatments and interventions, ordering and review of laboratory studies, re-evaluation of patient's condition, ordering and review of radiographic studies and review of old charts Discharge - Discharge Clinical Impression: COPD exacerbation, Respiratory distress, Polypharmacy, Morbid obesity with BMI of 40.0-44.9, adult, Hypoxia Acute and chronic respiratory failure Qualifiers: Respiratory failure complication: hypoxia Qualified Code(s): J96.21 - Acute and chronic respiratory failure with hypoxia Condition: Fair Disposition: ADMITTED INPATIENT Admitting Provider: Hospitalist Unit Admitted: [facility]
[2017-01-13] MEDS ORDERED: CEFEPIME 2 GM/D5W RTU 50 ML IV ONE (19:33)
[2017-01-13] MEDS ORDERED: TOBRAMYCIN SULFATE INJ 80 MG/2 ML VIAL NEB ONE (19:34)
--- NOTE | 2017-01-13 20:07 | RADIOLOGY REPORT (SQ) ---
EXAM DESCRIPTION: CHEST SINGLE VIEW COMPLETED DATE/TIME: 01/13/2017 7:53 pm REASON FOR STUDY: bed 9 db COMPARISON: 01/01/2017. 11/24/2016. NUMBER OF VIEWS: One view. TECHNIQUE: Single frontal radiographic view of the chest acquired. LIMITATIONS: None. FINDINGS: LUNGS AND PLEURA: Streaky opacity in the lingula may be chronic scar. Present on radiogra phs from previously. No developing infiltrates or overt failure. MEDIASTINUM AND HILAR STRUCTURES: Stable contours. HEART AND VASCULAR STRUCTURES: Cardiac enlargement. BONES: Osteopenic. Limited assessment. Severe left shoulder arthropathy. Deficient right proximal humerus. HARDWARE: None in the chest. OTHER: No other significant finding. IMPRESSION: Suspect scar in the lingula. Heart enlarged without overt failure. Chest is felt to be relatively stable. TECHNICAL DOCUMENTATION: JOB ID: [id number] [employer]- All Rights Reserved
[2017-01-13] MEDS: MAGNESIUM SULFATE/D5W 100 ML IV SCH ×2 (20:10→21:21)
[2017-01-13 20:12] LABS: ABSOLUTE BASOPHILS # (AUTO) 0.1 10^3/uL (0.0-0.2); ABSOLUTE EOSINOPHILS # (AUTO) 0.1 10^3/uL (0.0-0.6); ABSOLUTE LYMPHOCYTES (AUTO) 1.5 10^3/uL (0.5-4.7); ABSOLUTE MONOCYTES (AUTO) 0.8 10^3/uL (0.1-1.4); ABSOLUTE NEUT (AUTO) 5.8 10^3/uL (1.7-8.2); BASOPHILS % (AUTO) 0.6 % (0-2); EOSINOPHILS % (AUTO) 1.4 % (0-6); HEMATOCRIT 32.8 % (36.0-47.0); HEMOGLOBIN 10.7 g/dL (12.0-15.5); HGB HCT DIFFERENCE -0.7; LYMPHOCYTES % (AUTO) 18.4 % (13-45); MEAN CORPUSCULAR HEMOGLOBIN 28.9 pg (27.0-33.4); MEAN CORPUSCULAR HGB CONC 32.6 g/dL (32.0-36.0); MEAN CORPUSCULAR VOLUME 89 fl (80-97); MONOCYTES % (AUTO) 10.1 % (3-13); RED CELL DISTRIBUTION WIDTH 15.7 % (11.5-14.0); SEGMENTED NEUTROPHILS % (AUTO) 69.5 % (42-78); WHITE BLOOD COUNT 8.4 10^3/uL (4.0-10.5)
[2017-01-13 20:17] LABS: ALANINE AMINOTRANSFERASE 29 U/L (9-52); ALBUMIN 3.1 g/dL (3.5-5.0); ALKALINE PHOSPHATASE 104 U/L (38-126); ANION GAP 10 (5-19); ASPARTATE AMINO TRANSFERASE 18 U/L (14-36); BILIRUBIN,DIRECT 0.4 mg/dL (0.0-0.4); BILIRUBIN,TOTAL 0.5 mg/dL (0.2-1.3); BLOOD UREA NITROGEN 12 mg/dL (7-20); CALCIUM 8.9 mg/dL (8.4-10.2); CARBON DIOXIDE 27 mmol/L (22-30); CHLORIDE 102 mmol/L (98-107); GLUCOSE 209 mg/dL (75-110); SODIUM 138.8 mmol/L (137-145); TOTAL PROTEIN 6.2 g/dL (6.3-8.2)
[2017-01-13] MEDS ORDERED: TOBRAMYCIN SULFATE INJ 80 MG/2 ML VIAL ONE (20:47)
[2017-01-13 21:03] LABS: VENOUS BLOOD BASE EXCESS 5.3 mmol/L; VENOUS BLOOD HCO3 32.5 mmol/L (20-32); VENOUS BLOOD PCO2 60.9 mmHg (35-63); VENOUS BLOOD PH 7.35 (7.30-7.42)
[2017-01-13 21:05] LABS: APPEARANCE,URINE SLIGHTLY-CLOUDY; BILIRUBIN,URINE NEGATIVE (NEGATIVE); GLUCOSE, URINE NEGATIVE (NEGATIVE); KETONES,URINE NEGATIVE (NEGATIVE); LEUKOCYTE ESTERASE,URINE MODERATE (NEGATIVE); NITRITE,URINE NEGATIVE (NEGATIVE); PROTEIN,URINE NEGATIVE (NEGATIVE); URINE SPECIFIC GRAVITY 1.017; UROBILINOGEN,URINE NEGATIVE mg/dL (<2.0)
--- NOTE | 2017-01-13 21:57 | EKG REPORT ---
SEVERITY:- ABNORMAL ECG - SINUS RHYTHM, WITH PACS INCOMPLETE LEFT BUNDLE BRANCH BLOCK LVH WITH SECONDARY REPOLARIZATION ABNORMALITY : Confirmed by: Inocencio Aguilar MD 13-Jan-2017 21:57:14
[2017-01-14] MEDS ORDERED: IPRATROPIUM/ALBUTEROL 0.5-2.5 MG/3 ML AMPUL NEB ONE (00:25)
[2017-01-14] MEDS ORDERED: ACETAMINOPHEN 325 MG TABLET ONE (00:26)
[2017-01-14] MEDS ORDERED: ACETAMINOPHEN 325 MG TABLET PO ONE (00:28)
[2017-01-14] MEDS ORDERED: ALBUTEROL SULFATE 0.083% NEB 2.5 MG/3 ML AMPUL NEB ONE (00:28)
[2017-01-14] MEDS ORDERED: DEXTROSE 40% GEL 15 GM TUBE PO PRN ×2 (03:09)
[2017-01-14] MEDS ORDERED: ALBUTEROL SULFATE 0.083% NEB 2.5 MG/3 ML AMPUL NEB PRN (03:09)
[2017-01-14] MEDS ORDERED: DEXTROSE 50%-WATER 25 GM/50 ML DISP.SYRIN IV PRN ×2 (03:09)
[2017-01-14] MEDS ORDERED: GLUCAGON,HUMAN RECOMB 1 MG INJ IM PRN (03:09)
[2017-01-14] MEDS ORDERED: NORMAL SALINE 1000 ML 1,000 ML IV PRN (03:24)
[2017-01-14] MEDS ORDERED: VANCOMYCIN HCL 0 MG in DEXTROSE 5%-WATER 250 ML IV NR (03:30)
[2017-01-14] MEDS ORDERED: PHARMACY COMMUNICATION ORDER MC SCH (03:30)
[2017-01-14] MEDS ORDERED: PIPERACILLIN/TAZOBACTAM 4.5 GM VIAL IV PRN (03:35)
[2017-01-14] MEDS ORDERED: VANCOMYCIN HCL INJ 1000 MG VIAL IV PRN (03:59)
[2017-01-14] MEDS ORDERED: METHYLPREDNISOLONE INJ 125 MG/2 ML SDV IV ONE (04:00)
--- NOTE | 2017-01-14 04:02 | PDOC H&P ---
History of Present Illness Admission Date/PCP: 01/14/17 03:04 MUSA HODGSON MD Patient complains of: Difficulty breathing History of Present Illness: PORSHA WALDRON is a 71 year old morbidly obese female, well-known to the hospitalist service for multiple admissions, typically for urinary tract infection, and/or COPD exacerbation with acute on chronic respiratory failure. Presents to the emergency room for evaluation of above complaint. Patient has been discussed with emergency room physician who evaluated the patient. Patient appears quite fatigued, and while she is maintaining her airway well, and does open her eyes when spoken to in a somewhat loud voice, is able to provide no history whatsoever in terms of acute or chronic events, review of systems, personal habits, family history, etc. No friends or family are present. Old inpatient records are reviewed. Was noted to be in significant respiratory distress upon initial evaluation in the emergency room, but has improved with treatment so far. According to the emergency room physician, when patient was recently transferred from our facility back to [facility], she was supposed to be receiving tobramycin nebulizer treatments twice a day. However, from his review of the [facility] record from the jail, she has not received these treatments. No further information available this point in time. Hospitalized on our service the fourth through the of this month with final diagnoses including ESBL E. coli urinary tract infection due to chronic indwelling Barton catheter, paroxysmal atrial fibrillation with rapid ventricular response, acute on chronic respiratory failure with hypoxia and hypercapnia, along with multiple other diagnoses. Sputum grew Pseudomonas and MRSA. History and physical and transfer summary have been reviewed. Laboratory results are listed in [facility] and are reviewed. X-ray summary results are listed below, with full report(s) reviewed. . EKG reviewed and compared to prior tracing from the sixth of this month. Social history/personal habits: From prior records, she is a . Long-term resident of [facility]. No use of alcohol tobacco or illicit drugs. No further information available this point in time. Allergies/adverse reactions are listed in [facility] and are reviewed. Home medications initially autopopulated into [employer] may not accurately reflect patient's true medications, dosages, and/or frequencies. 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 Unfortunately, patient cannot provide any information related to medications/ dosages/frequencies. REVIEW OF SYSTEMS: See history and present illness. No further information available this point in time. PHYSICAL EXAMINATION: 5 feet 2 inches tall. 99.8 kg. BMI 40.2 kg/m. Pulse 101 and regular. Blood pressure 128/63. 97% saturation on 4 L oxygen per nasal cannula, which is turned down to 3 L, due to her underlying COPD. Respirations are 24 and unlabored. Obese chronically ill-appearing female who appears a bit older than her stated age. Asleep, does awaken slightly when spoken to in a loud voice, but fairly quickly falls back asleep. Maintaining airway well. Respiratory therapy has been contacted to place BiPAP on patient, given her known obstructive sleep apnea. Skin is warm and dry. No grossly obvious evidence of rash in areas of skin examined. No subcutaneous nodules palpated. ENT: Hearing difficult to adequately evaluate due to her current status; see above comments. Eyes: No scleral icterus. Pupils equal and reactive to light at 4 mm. Amberg conjunctivae. No raccoon eyes. Neck is nontender to palpation. Midline trachea. No palpable thyroid nodule mass enlargement or tenderness. Lymphatic: No palpable cervical or clavicular nodes. Neck and lymphatic exams limited by patient body habitus. Psychiatric: Cannot be adequately evaluated due to her current status. See history and present illness. Lungs: Auscultation reveals clear and equal breath sounds bilaterally. No use of accessory respiratory muscles. Cardiovascular: Heart regular rate and rhythm, without gallop murmur or rub. No abdominal aortic bruits. Mild bilateral symmetric very slightly pitting calf ankle and pedal edema. Faintly palpable dorsalis pedis pulses. Not able to adequately auscultate for carotid bruits due to airway sounds. Abdomen:soft obese nontender with positive bowel sounds. Unable to adequately evaluate abdomen for masses or organomegaly due to body habitus. Extremities: Feet are warm and dry. No calf tenderness to compression. Gentle manipulation of lower extremities fails to reveal any obvious evidence of injury or instability to knees hips or ankles, although somewhat decreased range of motion, left lower extremity, likely due to chronic problem she has with her left hip, from multiple prior surgeries. Neurologic: Patellar reflexes absent. Absent Babinski. Light touch cannot be determined due to her current status. Dorsiflexion and plantarflexion of feet 5 / 5 and symmetric. Past Medical History Past Medical History: Information from current and prior records; patient not able to provide any information herself. Cardiac Medical History: Reports: Atrial Fibrillation, Congestive Heart Failure - Diastolic dysfunction, Myocardial Infarction, Hypertension - essential, Pulmonary Embolism, Heart Murmur Denies: Coronary Artery Disease, DVT, Hyperlipidema, Peripheral Vascular Disease Pulmonary Medical History: Reports: Asthma, Bronchitis, Chronic Obstructive Pulmonary Disease (COPD), Pneumonia - Recurrent MRSA pneumonia., Sleep Apnea - Uses C Pap Denies: Tuberculosis Neurological Medical History: Denies: Seizures Endocrine Medical History: Reports: Diabetes Mellitus Type 2 Denies: Diabetes Mellitus Type 1, Hyperthyroidism, Hypothyroidism GI Medical History: Reports: Gastroesophageal Reflux Disease, Hiatal Hernia Denies: Cirrhosis, Hepatitis Musculoskeltal Medical History: Reports: Arthritis, Fibromyalgia, Gout Skin Medical History: Denies: Eczema, Psoriasis Psychiatric Medical History: Reports: Depression Hematology: Reports: Anemia Infectious Medical History: Reports: Methicillin-Resistant Staph Aureus Past Surgical History Past Surgical History: Information from current and prior records; patient not able to provide any information herself. Past Surgical History: Reports: Appendectomy, Cholecystectomy, Hysterectomy, Orthopedic Surgery - Multiple left hip procedures, 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 Social History Information Source: Emergency Med Personnel, [facility] Records Lives with: Retirement Smoking Status: Former Smoker Frequency of Alcohol Use: None Hx Recreational Drug Use: No Drugs: None Hx Prescription Drug Abuse: No - Advance Directive Resuscitation Status: Do Not Resuscitate Surrogate healthcare decision maker:: Uncertain at this point in time. Family History Family History: Arthritis, CAD, CVA, DM, Hypertension Parental Family History Reviewed: Yes - Information from prior records; patient not able to supply any information. Children Family History Reviewed: No - Information from prior records; patient not able to supply any information. Sibling(s) Family History Reviewed.: No - Information from prior records; patient not able to supply any information. Medication/Allergy Home Medications: Acetaminophen [Tylenol 325 mg Tablet] 650 mg PO Q4HP PRN 01/14/17 Albuterol Sulfate [Albuterol Sulfate 2.5mg/3 mL] 2.5 mg IH RTQ2HP PRN 01/14/17 Aspirin [Aspirin 81 mg Chewable Tablet] 81 mg PO DAILY 01/14/17 Benzonatate [Tessalon Perles 100 mg Capsule] 100 mg PO Q8 01/14/17 Budesonide [Pulmicort Neb 0.5 mg/2 ml Ampul] 0.5 mg NEB RTQ12 01/14/17 Buspirone HCl [Buspar 5 mg Tablet] 5 mg PO Q12 01/14/17 Dextromethorphan HBr [Delsym] 60 mg PO Q12HP PRN 01/14/17 Diltiazem HCl [Cardizem 60 mg Tablet] 60 mg PO Q8 01/14/17 Diphenhydramine HCl [Benadryl 25 mg Capsule] 25 mg PO Q6HP PRN 01/14/17 Docusate Sodium [Colace 100 mg Capsule] 100 mg PO BID 01/14/17 Duloxetine HCl 90 mg PO DAILY 01/14/17 Ertapenem Sodium [Invanz Inj 1 gm Vial] 1 gm IVPB DAILY 01/14/17 Famotidine [Pepcid 20 mg Tablet] 20 mg PO BID 01/14/17 Fentanyl [Duragesic 25 Mcg/Hr Transdermal Patch] 1 each TD Q3D 01/14/17 Furosemide [Lasix] 40 mg PO QAM 01/14/17 Guaifenesin [Mucinex Sr 600 mg Tablet.sa] 1,200 mg PO Q12 01/14/17 Hydrocodone Bit/Acetaminophen [Hydrocodon-Acetaminophen 5-325] 1 tab PO Q4HP PRN 01/14/17 Insulin Aspart [Novolog Insulin 100 Unit/1 ml 10 ml] 0 unit SUBCUT .SLD SCALE Insulin Detemir [Levemir Flextouch] 30 unit SQ DAILY 01/14/17 Ipratropium/Albuterol Sulfate [Duoneb 3 ml Ampul] 3 ml NEB [id number] 01/14/17 Lactulose [Cephulac 20 gm/30 ml Syrup UD Cup] 20 gm PO BID 01/14/17 Levalbuterol HCl [Xopenex Neb 1.25 mg/3 ml Ampul] 1.25 mg NEB RTQ4 01/14/17 Linaclotide [Linzess 145 Mcg Capsule] 145 mcg PO QAM 01/14/17 Magnesium Hydroxide [Milk of Magnesia 30 ml Udcup] 30 ml PO DAILYP PRN 01/14/17 Metoprolol Tartrate [Lopressor 25 mg Tablet] 25 mg PO Q12 01/14/17 Nitroglycerin [Nitrostat 0.4 mg (1/150 Gr) Tabs 25/Bottle] 1 tab SL Q5MP PRN Omeprazole 20 mg PO Q6AM 01/14/17 Polyethylene Glycol 3350 [Miralax Powder 17 gm/Packet] 17 gm PO DAILY 01/14/17 Potassium Chloride [K-Tab] 40 meq PO DAILY 01/14/17 Pregabalin [Lyrica 100 Mg Capsule] 100 mg PO Q12 01/14/17 Promethazine HCl [Phenergan 25 mg Tablet] 25 mg PO Q6HP PRN 01/14/17 Ranolazine [Ranexa 500 mg Tab.sr] 500 mg PO Q12 01/14/17 Sennosides/Docusate 8.6-50 mg [Senna Plus Tablet] 2 tab PO QHS 01/14/17 Tobramycin Sulfate [Tobramycin Neb 40 mg/ml 30 ml Vial] 300 mg NEB RTQ12 Allergies/Adverse Reactions: Sulfa (Sulfonamide Antibiotics) Allergy (Intermediate, Verified 11/24/16 17:35) adhesive tape Allergy (Verified 11/24/16 17:35) atorvastatin calcium [From Lipitor] Allergy (Verified 11/24/16 17:35) celecoxib [From Celebrex] Allergy (Verified 11/24/16 17:35) Physical Exam Vital Signs: Temp Pulse Resp BP Pulse Ox 99.3 F 20 128/63 H 98 01/13/17 19:26 01/14/17 02:01 01/14/17 02:01 01/14/17 02:01 Results Impressions: Chest X-Ray 01/13/17 19:11 IMPRESSION: Suspect scar in the lingula. Heart enlarged without overt failure. Chest is felt to be relatively stable. Assessment & Plan - Diagnosis (1) ARF (acute renal failure) Qualifiers: Acute renal failure type: unspecified Qualified Code(s): N17.9 - Acute kidney failure, unspecified Is this a current diagnosis for this admission?: YesPlan: Suspect at least partially prerenal in etiology. IV fluids. Follow-up chemistry. (2) COPD exacerbation Is this a current diagnosis for this admission?: Yes (3) MRSA pneumonia Qualifiers: Laterality: unspecified laterality Lung location: unspecified part of lung Qualified Code(s): J15.212 - Pneumonia due to Methicillin resistant Staphylococcus aureus Is this a current diagnosis for this admission?: YesPlan: Patient will be admitted under COPD exacerbation and pneumonia protocol. Incentive spirometry twice a day. Scheduled DuoNeb's. As needed albuterol nebs. Solu-Medrol. Antibiotics will consist of Zosyn along with intravenous vancomycin; recent culture results reviewed. Pharmacy to assist with dosing. Knee high SCDs for DVT prophylaxis; with patient on systemic anticoagulation, no need for Lovenox or heparin. Time spent in evaluation and management of patient: 73 minutes. (4) Pseudomonal pneumonia Qualifiers: Laterality: unspecified laterality Lung location: unspecified part of lung Qualified Code(s): J15.1 - Pneumonia due to Pseudomonas Is this a current diagnosis for this admission?: YesPlan: As above. We will also reinstitute tobramycin nebulizer treatments. (5) UTI due to extended-spectrum beta lactamase (ESBL) producing Escherichia coli Is this a current diagnosis for this admission?: YesPlan: Recent culture results noted; Zosyn. (6) Obstructive sleep apnea Is this a current diagnosis for this admission?: YesPlan: BiPAP. (7) Do not resuscitate Is this a current diagnosis for this admission?: YesPlan: Portable document on chart. Will honor this directive. - Inpatient Certification Based on my medical assessment, after consideration of the patient's comorbidities, presenting symptoms, or acuity I expect that the services needed warrant INPATIENT care.: Yes I certify that my determination is in accordance with my understanding of Medicare's requirements for reasonable and necessary INPATIENT services [42 CFR 412.3e].: Yes Medical Necessity: Significant Comorbidiites Make Outpatient Treatment Too Risky , Need Close Monitoring Due to Risk of Patient Decompensation, Need For IV Fluids, Need For Continuous Telemetry Monitoring, Need for Nebulizer Therapy and Monitoring of Response, Need for IV Antibiotics, Risk of Diagnosis Which Will Require Inpatient Eval/Care/Monitoring Post Hospital Care: D/C or Transfer Summary
[2017-01-14] MEDS ORDERED: VANCOMYCIN HCL 2,000 MG in DEXTROSE 5%-WATER 500 ML IV ONE (05:00)
[2017-01-14] MEDS ORDERED: PIPERACILLIN SODIUM/TAZOBACTAM 4.5 GM in NORMAL SALINE 100 ML IV SCH (06:00)
[2017-01-14 06:53] LABS: VENOUS BLOOD BASE EXCESS -5.1 mmol/L; VENOUS BLOOD HCO3 20.9 mmol/L (20-32); VENOUS BLOOD PCO2 42.3 mmHg (35-63); VENOUS BLOOD PH 7.31 (7.30-7.42)
[2017-01-14 06:59] LABS: HEMATOCRIT 29.1 % (36.0-47.0); HGB HCT DIFFERENCE -3.6; MEAN CORPUSCULAR HEMOGLOBIN 28.9 pg (27.0-33.4); MEAN CORPUSCULAR HGB CONC 29.4 g/dL (32.0-36.0); RED BLOOD COUNT 2.96 10^6/uL (3.72-5.28); RED CELL DISTRIBUTION WIDTH 16.7 % (11.5-14.0); WHITE BLOOD COUNT 5.9 10^3/uL (4.0-10.5)
[2017-01-14 07:02] LABS: ANION GAP 11 (5-19); BLOOD UREA NITROGEN 11 mg/dL (7-20); CARBON DIOXIDE 19 mmol/L (22-30); CHLORIDE 84 mmol/L (98-107); CREATININE RESULT 0.68 mg/dL (0.52-1.25); POTASSIUM 3.6 mmol/L (3.6-5.0)
[2017-01-14 07:26] LABS: CALCIUM 6.5 mg/dL (8.4-10.2); GLUCOSE 1144 mg/dL (75-110); SODIUM 113.5 mmol/L (137-145)
[2017-01-14] MEDS ORDERED: TOBRAMYCIN SULFATE NEB 40 MG/ML 30 ML NEB SCH (08:00)
[2017-01-14] MEDS ORDERED: IPRATROPIUM/ALBUTEROL 0.5-2.5 MG/3 ML AMPUL NEB SCH (08:00)
[2017-01-14 08:14] LABS: BASOPHILS % (MANUAL) 0 % (0-2); EOSINOPHILS % (MANUAL) 0 % (0-6); LYMPHOCYTES % (MANUAL) 2 % (13-45); TOTAL CELLS COUNTED 100
[2017-01-14 08:15] LABS: ANISOCYTOSIS 1+; HYPOCHROMASIA SLIGHT
[2017-01-14 08:16] LABS: HEMOGLOBIN 8.5 g/dL (12.0-15.5); MEAN CORPUSCULAR VOLUME 98 fl (80-97)
[2017-01-14] MEDS ORDERED: NITROGLYCERIN 0.4 MG/TAB 25 TAB/BOTTLE SL PRN (11:51)
[2017-01-14] MEDS ORDERED: MAGNESIUM HYDROXIDE SUSP 30 ML UDCUP PO PRN (11:51)
[2017-01-14] MEDS ORDERED: PROMETHAZINE HCL 25 MG TABLET PO PRN (11:51)
[2017-01-14] MEDS ORDERED: DIPHENHYDRAMINE HCL 25 MG CAPSULE PO PRN (11:51)
[2017-01-14] MEDS ORDERED: ASPIRIN 81 MG TABLET, CHEWABLE PO ONE (13:00)
[2017-01-14] MEDS ORDERED: FUROSEMIDE INJ/PF 40 MG/4 ML SDV IV ONE (13:00)
[2017-01-14] MEDS ORDERED: METOPROLOL TARTRATE 25 MG TABLET PO ONE (13:00)
[2017-01-14] MEDS ORDERED: FENTANYL 25 MCG/HR PATCH.TD72 TD ONE (13:00)
[2017-01-14] MEDS: DILTIAZEM HCL 60 MG TABLET PO SCH ×2 (14:39→21:42)
[2017-01-14] MEDS: INSULIN LISPRO 100 UNIT/ML 3 ML VIAL SUBCUT PRN ×2 (14:43→19:48)
[2017-01-14] MEDS: METHYLPREDNISOLONE INJ 125 MG/2 ML SDV IV SCH ×2 (14:44→21:43)
[2017-01-14] MEDS: LEVALBUTEROL HCL NEB 1.25 MG/3 ML AMPUL NEB SCH (15:35)
--- NOTE | 2017-01-14 16:09 | PROGRESS NOTE E ---
Progress Note NAME: PORSHA WALDRON : 1945 AGE: 71Y DATE: 01/14/2017 ROOM: 313 SUBJECTIVE: The patient has been seen twice today on rounds. The patient reportedly is much better than when she came in. Apparently upon presentation, the patient was obtunded, however, she is now more appropriate and back to her baseline. She is currently on BiPAP and is tolerating nasal cannula. The patient still remains afebrile. Her blood pressures are improved. The patient's last chemistries are not credible in comparison to previous labs; however, repeat labs are still pending at the time of this dictation. There have been no reported episodes of vomiting nor diarrhea. The patient did not voice any concerns given her mental status. Called and discussed the case with Infectious Disease at [facility]. Spoke with Dr. Simons regarding this case. Presented the patient's case as she is well known to the hospitalist service. It appears that the patient has history of ESBL in both her urine and blood as well as MRSA in her sputum chronically with the first occurrence back in 2013 as well as previous CRE in the sputum, to get more defined criteria for treating this patient with antimicrobial agents. Recommendations have been made not to treat the patient with antibiotics unless she has 2 clinical indicators and 1 diagnostic indicator of infection. Example being a febrile state with elevated white count with positive findings on chest x-ray or positive blood cultures. Otherwise, the patient's microbiology finding should be considered and treated as a colonization and not an active infection. The patient had no diagnostic evidence of pneumonia. The patient's chest x-ray was unremarkable. She had no white count upon presentation. There was no bandemia. The patient also was afebrile and was not tachycardiac. The patient only presented with respiratory distress symptoms. REVIEW OF SYSTEMS: A full review of systems was unable to be appreciated given the patient's mental status. MEDICATIONS: An extensive list of the patient's medications have been reviewed. OBJECTIVE: GENERAL: On examination, the patient is a frail, chronically ill appearing, 71-year-old female who would awaken when addressed but was not very responsive. VITAL SIGNS: On initial examination are as follows: Temperature is 97.2, pulse 98, respirations 20, blood pressure 143/57, oxygen saturation is 96% on 2 L nasal cannula. SKIN: Pale and dry. No rash. She is not diaphoretic. HEENT: Pupils are reactive. Noted dark circles under the patient's eyes. There is no evidence of JVD. CARDIOVASCULAR: Heart is regular. There is no rub. CHEST: Coarse but diminished, symmetrical, unlabored. ABDOMEN: Soft, nontender, nondistended. BACK: There was no evidence of sacral edema. EXTREMITIES: No clubbing, cyanosis, edema. PSYCHIATRIC: Unable to be fully assessed. DIAGNOSTICS: Lab values are as follows: Hematology obtained on 01/14/2017: WBCs are 5.9, hemoglobin is 8.5, hematocrit is 29.1, platelet count is 193,000. Venous blood gas obtained on 01/14/2017: Her pH is 7.31, pCO2 is 42.3, bicarb is 20.9. Chemistry obtained on 01/14/2017 does not appear to be accurate. Repeat for this is pending. Lactic acid level was 0.9. Blood cultures obtained on 01/14/2017 are pending. IMPRESSION AND PLAN: 1. [id number] HYPOXEMIC RESPIRATORY FAILURE. The patient is no longer tachypneic. She is currently on nasal cannula. Patient overall appears much improved. Actually the wheezing has resolved on examination. Will begin to deescalate steroids and continue supportive measures. Will deescalate nebulizers given the patient's history of AFib. 2. HYPERTENSION. Will resume the patient's home blood pressure medications. 3. ACUTE EXACERBATION OF CHRONIC OBSTRUCTIVE PULMONARY DISEASE. Will continue the patient's home medications. 4. OBSTRUCTIVE SLEEP APNEA. Will continue CPAP at night. 5. ADRENAL INSUFFICIENCY. Will continue her chronic home steroids once this taper is complete. 6. CHRONIC INDWELLING CHAUDHARY. Will defer culture for now given the patient has no evidence of sepsis. 7. CHRONIC KIDNEY DISEASE STAGE III. The patient's creatinine is at baseline. 8. DIABETES MELLITUS TYPE 2. Blood glucose was reasonable upon presentation. Currently awaiting repeat labs. Will continue sliding scale coverage. 9. DIASTOLIC DYSFUNCTION. The patient appears that she may be a little volume up. Will actually diurese and follow. 10. GASTROESOPHAGEAL REFLUX DISEASE. Continue home medication. 11. POLYPHARMACY. This has been a chronic issue with this patient. 12. MAJOR DEPRESSION. Continue the patient's home medication. 13. MORBID OBESITY WITH HYPOVENTILATION SYNDROME. 14. PHYSICAL DEBILITY. 15. PAROXYSMAL ATRIAL FIBRILLATION. The patient is currently in sinus rhythm and rate controlled. Will continue her home medications. 16. ANEMIA OF CHRONIC DISEASE. Hemoglobin appears stable. 17. GENERAL ANXIETY DISORDER. Will continue the patient's home medication. 18. BENZODIAZEPINE DEPENDENCY CONTINUOUS. Continue home medications. 19. CHRONIC PAIN SYNDROME. Will continue the patient's home medications. 20. OPIATE DEPENDENCY CONTINUOUS. Continue the patient's home medication. 21. HISTORY OF MRSA PNEUMONIA. Spoken in detail to Infectious Disease. Will forego cultures for now given the patient does not have evidence of pneumonia on chest x-ray nor evidence of sepsis. 22. HISTORY OF ESBL UTI AND BACTEREMIA. Once again will forego urine culture for now as the patient has no evidence of sepsis. Blood cultures are pending. This should only be treated in the setting of a positive blood culture and other findings of sepsis. 23. HISTORY OF PROTEUS MIRABILIS INFECTION. Once again the patient has no evidence of active infection. 24. HISTORY OF CRE PNEUMONIA. Once again the patient is not producing any significant secretions. There is no evidence of pneumonia on chest x-ray. Will forego antibiotics for now. 25. DVT PROPHYLAXIS. Will continue subcutaneous heparin. 26. DO NOT RESUSCITATE/DO NOT INTUBATE status. DISPOSITION: The patient is a DO NOT RESUSCITATE/DO NOT INTUBATE. Pending patient's symptomatology and diagnostic findings, will reevaluate in the a.m. Time spent on this visit including assessment, plan, physical examination, patient education, and specialty collaboration is 35 minutes. DICTATING PHYSICIAN: PAXTON FOFANA NP [id number] PHY#: [id number] ID: [id number] JOB#: [id number] ACCT: [id number] cc: >
[2017-01-14 17:35] LABS: ANION GAP 10 (5-19); BLOOD UREA NITROGEN 14 mg/dL (7-20); CALCIUM 9.1 mg/dL (8.4-10.2); CARBON DIOXIDE 26 mmol/L (22-30); CHLORIDE 102 mmol/L (98-107); GLUCOSE 366 mg/dL (75-110); POTASSIUM 4.2 mmol/L (3.6-5.0)
[2017-01-14 17:46] LABS: SODIUM 138.4 mmol/L (137-145)
[2017-01-14] MEDS: FAMOTIDINE 20 MG TABLET PO SCH (19:46)
[2017-01-14] MEDS: HYDROCODONE/ACETAMINOPHEN 5-325 MG TABLET PO PRN (19:47)
[2017-01-14] MEDS: LACTULOSE SYRUP 20 GM/30 ML UDCUP PO SCH (19:53)
[2017-01-14] MEDS: DOCUSATE SODIUM 100 MG CAPSULE PO SCH (19:53)
[2017-01-14] MEDS: BUDESONIDE NEB 0.5 MG/2 ML AMPUL NEB SCH (20:35)
[2017-01-14] MEDS: LEVALBUTEROL HCL NEB 0.63 MG/3 ML AMPUL NEB PRN (20:35)
[2017-01-14] MEDS: ACETAMINOPHEN 325 MG TABLET PO PRN (21:40)
[2017-01-14] MEDS: RANOLAZINE 500 MG TAB.SR.12H PO SCH (21:41)
[2017-01-14] MEDS: SENNOSIDES/DOCUSATE 8.6-50 MG 1 EACH TABLET PO SCH (21:41)
[2017-01-14] MEDS: BUSPIRONE HCL 10 MG TABLET PO SCH (21:42)
[2017-01-14] MEDS: GUAIFENESIN 600 MG TABLET.SA PO SCH (21:42)
[2017-01-14] MEDS: METOPROLOL TARTRATE 25 MG TABLET PO SCH (21:42)
[2017-01-14] MEDS: PREGABALIN 100 MG CAPSULE PO SCH (21:42)
[2017-01-14] MEDS ORDERED: (PENDING PHARMACY ID) (Buspirone Hcl [Buspar 5 Mg Tablet] 5 MG) PO SCH (22:00)
[2017-01-15] MEDS: LEVALBUTEROL HCL NEB 1.25 MG/3 ML AMPUL NEB SCH ×3 (00:28→17:16)
[2017-01-15] MEDS: DILTIAZEM HCL 60 MG TABLET PO SCH ×3 (06:51→22:41)
[2017-01-15] MEDS: METHYLPREDNISOLONE INJ 125 MG/2 ML SDV IV SCH ×3 (06:52→22:41)
[2017-01-15] MEDS ORDERED: VANCOMYCIN HCL 1,500 MG in DEXTROSE 5%-WATER 250 ML IV SCH (08:00)
[2017-01-15] MEDS ORDERED: (PENDING PHARMACY ID) (Linaclotide 145 MCG) PO SCH (08:00)
[2017-01-15] MEDS: INSULIN LISPRO 100 UNIT/ML 3 ML VIAL SUBCUT PRN ×4 (08:00→22:41)
[2017-01-15] MEDS: BUDESONIDE NEB 0.5 MG/2 ML AMPUL NEB SCH ×2 (08:04→21:13)
[2017-01-15] MEDS ORDERED: INSULIN DETEMIR 100 UNIT/ML 3 ML PEN SUBCUT SCH (10:00)
[2017-01-15] MEDS: HYDROCODONE/ACETAMINOPHEN 5-325 MG TABLET PO PRN ×2 (11:51→18:53)
[2017-01-15] MEDS: RANOLAZINE 500 MG TAB.SR.12H PO SCH ×2 (11:51→22:41)
[2017-01-15] MEDS: FAMOTIDINE 20 MG TABLET PO SCH ×2 (11:52→18:45)
[2017-01-15] MEDS: PREGABALIN 100 MG CAPSULE PO SCH ×2 (11:52→22:41)
[2017-01-15] MEDS: DOCUSATE SODIUM 100 MG CAPSULE PO SCH ×2 (11:54→18:53)
[2017-01-15] MEDS: GUAIFENESIN 600 MG TABLET.SA PO SCH ×2 (11:54→22:41)
[2017-01-15] MEDS: DULOXETINE HCL 30 MG CAPSULE.DR PO SCH (11:55)
[2017-01-15] MEDS: BUSPIRONE HCL 10 MG TABLET PO SCH ×2 (11:56→22:41)
[2017-01-15] MEDS: ASPIRIN 81 MG TABLET, CHEWABLE PO SCH (11:56)
[2017-01-15] MEDS: METOPROLOL TARTRATE 25 MG TABLET PO SCH ×2 (12:03→22:41)
[2017-01-15] MEDS ORDERED: TIOTROPIUM BROMIDE DPI 5 CAP/KIT (18 MCG/CAP) IH ONE ×2 (12:07→15:00)
[2017-01-15] MEDS: LACTULOSE SYRUP 20 GM/30 ML UDCUP PO SCH ×2 (12:08→18:53)
[2017-01-15] MEDS: POLYETHYLENE GLYCOL 3350 POWDER 17 GM/1 PACKET PO SCH (12:08)
--- NOTE | 2017-01-15 12:33 | RADIOLOGY REPORT (SQ) ---
EXAM DESCRIPTION: PICC INSERTION; U/S GUIDE FOR VASCULAR ACCESS COMPLETED DATE/TIME: 01/15/2017 12:00 pm; 01/15/2017 11:25 am REASON FOR STUDY: PRIOR PICC PULLED OUT; PICC PULLED OUT COMPARISON: AP chest 01/13/2017 FLUOROSCOPY TIME: No fluoroscopy 1 limited digital chest radiograph, 1 ultrasound image saved to PACS. TECHNIQUE: Fluoroscopic and ultrasound guided PICC placement. LIMITATIONS: None. PROCEDURE: After written consent and assessment were obtained, bedside PICC insertion was performed. Ultrasound was used on the patient's right arm for PICC access. The right arm was prepped and drape d in a sterile fashion along with the ultrasound probe. The entry site was anesthetized with 4 mL of 1% lidocaine. A 21 gauge 7 cm needle was advanced through the skin and into the right basilic vein un hui live ultrasound guidance. An ultrasound image was saved to PACS confirming access site. A .018 guide wire was then inserted through the needle and into the venous system. The needle was the remove d and an 11 blade scalpel was used to make a 1cm skin incision. A 5 fr peel-away sheath was advanced over the wire and into the venous system. A measurement was then made using the existing wire and li ve fluoroscopic guidance. The wire was then removed and the trimmed. The PICC was advanced through th e peel-away sheath and into the venous system. The peel-away sheath was removed and the catheter was adhered to the patients arm with a stat lock. The catheter was then aspirated and flushed and a steri le bandage was placed over the access site. A portable limited chest image was saved to PACS confirm ing the catheter tip within the superior vena cava. IMPRESSION: SUCCESSFUL PLACEMENT OF A 5 FR DUAL LUMEN 37 CM PICC IN THE right basilic VEIN. COMMENT: Patient medication list reviewed: Yes- Quality ID# [id number]:Eligible professional attests to doc umenting in the medical record they obtained, updated, or reviewed the patient's current medications. . Quality ID 145: Final reports for procedures using fluoroscopy that document radiation exposure jl artemio, or exposure time and number of fluorographic images (if radiation exposure indices are not avail able) Quality ID #76: The patient was prepped and draped using maximum sterile barrier technique including cap, mask, sterile gown, sterile gloves, a large sterile sheet, hand hygiene, and 2% Chlorhexidine fo r cutaneous antisepsis. When ultrasound is used, sterile ultrasound techniques are followed requiring sterile gel and sterile probes. TECHNICAL DOCUMENTATION: JOB ID: [id number] [employer]- All Rights Reserved
[2017-01-15] MEDS: FLUTICASONE NASAL SPRAY 50 MCG/SPRY 120 SPRAY/16 GM NASL SCH (14:43)
[2017-01-15] MEDS ORDERED: LIDOCAINE 5% (700 MG) TRANSDERMAL ADH..PATCH TP ONE (15:00)
--- NOTE | 2017-01-15 15:09 | PDOC PROGRESS REPORT ---
Subjective Progress Note for:: 01/15/17 Subjective:: Patient was seen on morning rounds. She is resting in bed on BiPAP. She denies any respiratory distress at present time. She states she does have productive cough with thick white yellow mucus raised. She denies any chest pains, palpitations or dyspnea. She denies any nausea, vomiting or abdominal pain. She states most of her pain is in her neck and her back. She states she has not had her Lidoderm patches for the last several days. Remaining review of systems are all negative. Physical Exam Vital Signs: Temp Pulse Resp BP Pulse Ox 97.3 F 75 16 123/63 99 01/15/17 07:37 01/15/17 08:15 01/15/17 08:15 01/15/17 07:37 01/15/17 08:15 Intake & Output 01/14/17 01/15/17 01/16/17 06:59 06:59 06:59 Intake Total 442 Balance 442 Weight 103.7 kg General appearance: PRESENT: no acute distress, morbidly obese, well-developed, well-nourished Head exam: PRESENT: atraumatic, normocephalic Eye exam: PRESENT: conjunctiva pink, EOMI, PERRLA. ABSENT: scleral icterus Ear exam: PRESENT: normal external ear exam Mouth exam: PRESENT: moist, tongue midline Neck exam: ABSENT: carotid bruit, JVD, lymphadenopathy, thyromegaly Respiratory exam: PRESENT: clear to auscultation elia, rhonchi, symmetrical, unlabored. ABSENT: rales, wheezes Cardiovascular exam: PRESENT: irregular rhythm, +S1, +S2, systolic murmur Pulses: PRESENT: normal dorsalis pedis pul Vascular exam: PRESENT: normal capillary refill GI/Abdominal exam: PRESENT: normal bowel sounds, soft. ABSENT: distended, guarding, mass, organolmegaly, rebound, tenderness Rectal exam: PRESENT: deferred Extremities exam: PRESENT: full ROM. ABSENT: calf tenderness, clubbing, pedal edema Neurological exam: PRESENT: alert, awake, oriented to person, oriented to place , oriented to time, oriented to situation, CN II-XII grossly intact. ABSENT: motor sensory deficit Psychiatric exam: PRESENT: appropriate affect, normal mood. ABSENT: homicidal ideation, suicidal ideation Skin exam: PRESENT: dry, intact, warm. ABSENT: cyanosis, rash Results Laboratory Results: 01/14/17 06:40 01/14/17 14:40 01/14/17 14:40 Sodium 138.4 D Potassium 4.2 Chloride 102 Carbon Dioxide 26 Anion Gap 10 BUN 14 Creatinine 0.90 Est GFR ( Amer) > 60 Est GFR (Non-Af Amer) > 60 Glucose 366 H Calcium 9.1 Impressions: Chest X-Ray 01/13/17 19:11 IMPRESSION: Suspect scar in the lingula. Heart enlarged without overt failure. Chest is felt to be relatively stable. Interventional Vascular Procedure 01/15/17 00:00 IMPRESSION: SUCCESSFUL PLACEMENT OF A 5 FR DUAL LUMEN 37 CM PICC IN THE right basilic VEIN. PICC Line Insertion 01/15/17 00:00 IMPRESSION: SUCCESSFUL PLACEMENT OF A 5 FR DUAL LUMEN 37 CM PICC IN THE right basilic VEIN. Assessment & Plan - Diagnosis (1) Acute and chronic respiratory failure Qualifiers: Respiratory failure complication: hypoxia Qualified Code(s): J96.21 - Acute and chronic respiratory failure with hypoxia (3) COPD exacerbation Is this a current diagnosis for this admission?: Yes (4) Anemia Qualifiers: Anemia type: iron deficiency Iron deficiency anemia type: other iron deficiency Qualified Code(s): D50.8 - Other iron deficiency anemias Is this a current diagnosis for this admission?: Yes (5) Bronchitis, mucopurulent recurrent Is this a current diagnosis for this admission?: YesPlan: Continue nebulizer treatments and steroids (6) Constipation due to opioid therapy Is this a current diagnosis for this admission?: YesPlan: Continue bowel regimen (7) DVT prophylaxis Is this a current diagnosis for this admission?: YesPlan: Patient is on eliquis (8) Diabetes mellitus type II, controlled Qualifiers: Diabetes mellitus complication status: without complication Diabetes mellitus mcc insulin use: without terminologist use Qualified Code(s): E11.9 - Type 2 diabetes mellitus without complications Is this a current diagnosis for this admission?: YesPlan: continue current medications and sliding scale coverage (9) Morbid (severe) obesity with alveolar hypoventilation Is this a current diagnosis for this admission?: YesPlan: Counseled - Time Time Spent with patient: 25-34 minutes Critical Time spent with patient: 15-24 minutes Medications reviewed and adjusted accordingly: Yes Anticipated discharge: SNF
[2017-01-15] MEDS: LEVALBUTEROL HCL NEB 0.63 MG/3 ML AMPUL NEB PRN (21:13)
[2017-01-15] MEDS: SENNOSIDES/DOCUSATE 8.6-50 MG 1 EACH TABLET PO SCH (22:41)
[2017-01-15] MEDS ORDERED: INSULIN REG, HUMAN 100 UNIT/ML 3 ML VIAL (PYX) IV ONE (23:45)
[2017-01-16] MEDS: LEVALBUTEROL HCL NEB 1.25 MG/3 ML AMPUL NEB SCH ×3 (00:12→16:26)
[2017-01-16] MEDS: DILTIAZEM HCL 60 MG TABLET PO SCH ×3 (05:53→22:32)
[2017-01-16] MEDS: METHYLPREDNISOLONE INJ 125 MG/2 ML SDV IV SCH (05:54)
[2017-01-16] MEDS: INSULIN LISPRO 100 UNIT/ML 3 ML VIAL SUBCUT PRN ×3 (07:56→22:33)
[2017-01-16] MEDS: BUDESONIDE NEB 0.5 MG/2 ML AMPUL NEB SCH ×2 (08:23→20:39)
[2017-01-16] MEDS ORDERED: INSULIN DETEMIR 100 UNIT/ML 3 ML PEN SUBCUT SCH (10:00)
[2017-01-16] MEDS: POLYETHYLENE GLYCOL 3350 POWDER 17 GM/1 PACKET PO SCH (11:21)
[2017-01-16] MEDS: RANOLAZINE 500 MG TAB.SR.12H PO SCH ×2 (11:22→22:32)
[2017-01-16] MEDS: DULOXETINE HCL 30 MG CAPSULE.DR PO SCH (11:22)
[2017-01-16] MEDS: LACTULOSE SYRUP 20 GM/30 ML UDCUP PO SCH ×2 (11:22→17:49)
[2017-01-16] MEDS: LIDOCAINE 5% (700 MG) TRANSDERMAL ADH..PATCH TP SCH (11:24)
[2017-01-16] MEDS: GUAIFENESIN 600 MG TABLET.SA PO SCH ×2 (11:25→22:32)
[2017-01-16] MEDS: PREGABALIN 100 MG CAPSULE PO SCH ×2 (11:25→22:32)
[2017-01-16] MEDS: FAMOTIDINE 20 MG TABLET PO SCH ×2 (11:26→17:49)
[2017-01-16] MEDS: DOCUSATE SODIUM 100 MG CAPSULE PO SCH ×2 (11:26→17:49)
[2017-01-16] MEDS: METOPROLOL TARTRATE 25 MG TABLET PO SCH ×2 (11:27→22:32)
[2017-01-16] MEDS: ASPIRIN 81 MG TABLET, CHEWABLE PO SCH (11:27)
[2017-01-16] MEDS: FLUTICASONE NASAL SPRAY 50 MCG/SPRY 120 SPRAY/16 GM NASL SCH (11:28)
[2017-01-16] MEDS: ACETAMINOPHEN 325 MG TABLET PO PRN (11:29)
[2017-01-16] MEDS: TIOTROPIUM BROMIDE DPI 5 CAP/KIT (18 MCG/CAP) IH SCH (11:30)
[2017-01-16] MEDS: BUSPIRONE HCL 10 MG TABLET PO SCH ×2 (11:32→22:32)
[2017-01-16] MEDS: LEVALBUTEROL HCL NEB 0.63 MG/3 ML AMPUL NEB PRN ×2 (12:34→20:40)
--- NOTE | 2017-01-16 13:40 | PDOC PROGRESS REPORT ---
Subjective Progress Note for:: 01/16/17 Subjective:: Patient was seen on morning rounds. She is resting in bed on BiPAP. She denies any respiratory distress at present time. She states she does have productive cough with thick white yellow mucus raised. She denies any chest pains, palpitations or dyspnea. She denies any nausea, vomiting or abdominal pain. She states most of her pain is in her neck and her back. She states she has not had her Lidoderm patches for the last several days. Remaining review of systems are all negative. Physical Exam Vital Signs: Temp Pulse Resp BP Pulse Ox 98.2 F 73 18 128/60 H 98 01/16/17 06:56 01/16/17 12:34 01/16/17 12:34 01/16/17 06:56 01/16/17 06:56 Intake & Output 01/15/17 01/16/17 01/17/17 06:59 06:59 06:59 Intake Total 442 575 Balance 442 575 Weight 103.7 kg General appearance: PRESENT: no acute distress, morbidly obese, well-developed, well-nourished Head exam: PRESENT: atraumatic, normocephalic Eye exam: PRESENT: conjunctiva pink, EOMI, PERRLA. ABSENT: scleral icterus Ear exam: PRESENT: normal external ear exam Mouth exam: PRESENT: moist, tongue midline Neck exam: ABSENT: carotid bruit, JVD, lymphadenopathy, thyromegaly Respiratory exam: PRESENT: clear to auscultation elia, decreased breath sounds, symmetrical, unlabored Cardiovascular exam: PRESENT: irregular rhythm, +S1, +S2. ABSENT: diastolic murmur, rubs, systolic murmur Pulses: PRESENT: normal dorsalis pedis pul Vascular exam: PRESENT: normal capillary refill GI/Abdominal exam: PRESENT: normal bowel sounds, soft. ABSENT: distended, guarding, mass, organolmegaly, rebound, tenderness Rectal exam: PRESENT: deferred Extremities exam: PRESENT: full ROM. ABSENT: calf tenderness, clubbing, pedal edema Neurological exam: PRESENT: alert, awake, oriented to person, oriented to place , oriented to time, oriented to situation, CN II-XII grossly intact. ABSENT: motor sensory deficit Psychiatric exam: PRESENT: appropriate affect, normal mood. ABSENT: homicidal ideation, suicidal ideation Skin exam: PRESENT: dry, intact, warm. ABSENT: cyanosis, rash Results Laboratory Results: 01/14/17 06:40 01/14/17 14:40 Impressions: Chest X-Ray 01/13/17 19:11 IMPRESSION: Suspect scar in the lingula. Heart enlarged without overt failure. Chest is felt to be relatively stable. Interventional Vascular Procedure 01/15/17 00:00 IMPRESSION: SUCCESSFUL PLACEMENT OF A 5 FR DUAL LUMEN 37 CM PICC IN THE right basilic VEIN. PICC Line Insertion 01/15/17 00:00 IMPRESSION: SUCCESSFUL PLACEMENT OF A 5 FR DUAL LUMEN 37 CM PICC IN THE right basilic VEIN. Assessment & Plan - Diagnosis (1) Acute and chronic respiratory failure Qualifiers: Respiratory failure complication: hypoxia Qualified Code(s): J96.21 - Acute and chronic respiratory failure with hypoxia Is this a current diagnosis for this admission?: YesPlan: "Improved blood gas. Will wean steroids (2) Atrial fibrillation with rapid ventricular response Plan: Controlled rate on eliguis (3) COPD exacerbation Is this a current diagnosis for this admission?: YesPlan: Continue nebulizers, steroids and inhalers (4) Anemia Qualifiers: Anemia type: iron deficiency Iron deficiency anemia type: other iron deficiency Qualified Code(s): D50.8 - Other iron deficiency anemias Is this a current diagnosis for this admission?: YesPlan: Stable will continue to observe (5) Bronchitis, mucopurulent recurrent Is this a current diagnosis for this admission?: YesPlan: Continue nebulizer treatments and steroids (6) Constipation due to opioid therapy Is this a current diagnosis for this admission?: YesPlan: Continue bowel regimen (7) DVT prophylaxis Is this a current diagnosis for this admission?: YesPlan: Patient is on eliquis (8) Diabetes mellitus type II, controlled Qualifiers: Diabetes mellitus complication status: without complication Diabetes mellitus supervisor intermediates insulin use: without supervisor intermediates use Qualified Code(s): E11.9 - Type 2 diabetes mellitus without complications Is this a current diagnosis for this admission?: YesPlan: continue current medications and sliding scale coverage (9) Morbid (severe) obesity with alveolar hypoventilation Is this a current diagnosis for this admission?: YesPlan: Counseled - Time Time Spent with patient: 25-34 minutes Critical Time spent with patient: 15-24 minutes Medications reviewed and adjusted accordingly: Yes Anticipated discharge: SNF
[2017-01-16] MEDS: BENZONATATE 100 MG CAPSULE PO PRN (17:50)
[2017-01-16] MEDS ORDERED: PREDNISONE 20 MG TABLET PO SCH (18:00)
[2017-01-16] MEDS ORDERED: INSULIN REG, HUMAN 100 UNIT/ML 3 ML VIAL (PYX) ONE (18:51)
[2017-01-16] MEDS ORDERED: INSULIN REG, HUMAN 100 UNIT/ML 3 ML VIAL (PYX) IV ONE ×2 (19:45→22:30)
[2017-01-16] MEDS: SENNOSIDES/DOCUSATE 8.6-50 MG 1 EACH TABLET PO SCH (22:32)
[2017-01-17] MEDS: LEVALBUTEROL HCL NEB 1.25 MG/3 ML AMPUL NEB SCH ×3 (00:10→15:51)
[2017-01-17] MEDS: BENZONATATE 100 MG CAPSULE PO PRN (05:58)
[2017-01-17] MEDS: ACETAMINOPHEN 325 MG TABLET PO PRN (05:59)
[2017-01-17] MEDS: DILTIAZEM HCL 60 MG TABLET PO SCH ×3 (06:00→22:05)
[2017-01-17 06:46] LABS: ABSOLUTE LYMPHOCYTES (AUTO) 0.6 10^3/uL (0.5-4.7); ABSOLUTE MONOCYTES (AUTO) 0.7 10^3/uL (0.1-1.4); ABSOLUTE NEUT (AUTO) 6.2 10^3/uL (1.7-8.2); BASOPHILS % (AUTO) 0.1 % (0-2); HEMOGLOBIN 10.1 g/dL (12.0-15.5); HGB HCT DIFFERENCE -0.7; LYMPHOCYTES % (AUTO) 7.7 % (13-45); MEAN CORPUSCULAR HEMOGLOBIN 28.6 pg (27.0-33.4); MEAN CORPUSCULAR HGB CONC 32.5 g/dL (32.0-36.0); MONOCYTES % (AUTO) 9.6 % (3-13); RED BLOOD COUNT 3.51 10^6/uL (3.72-5.28); RED CELL DISTRIBUTION WIDTH 15.2 % (11.5-14.0); SEGMENTED NEUTROPHILS % (AUTO) 82.6 % (42-78); WHITE BLOOD COUNT 7.6 10^3/uL (4.0-10.5)
[2017-01-17 06:47] LABS: MEAN CORPUSCULAR VOLUME 88 fl (80-97)
[2017-01-17] MEDS ORDERED: INSULIN DETEMIR 100 UNIT/ML 3 ML PEN SUBCUT SCH (07:05)
[2017-01-17 07:33] LABS: ANION GAP 11 (5-19); BLOOD UREA NITROGEN 38 mg/dL (7-20); CALCIUM 9.4 mg/dL (8.4-10.2); CARBON DIOXIDE 28 mmol/L (22-30); CHLORIDE 98 mmol/L (98-107); CREATININE RESULT 1.15 mg/dL (0.52-1.25); GLUCOSE 304 mg/dL (75-110); SODIUM 137.4 mmol/L (137-145)
[2017-01-17] MEDS: BUDESONIDE NEB 0.5 MG/2 ML AMPUL NEB SCH ×2 (08:01→19:45)
[2017-01-17] MEDS: FUROSEMIDE 40 MG TABLET PO SCH (08:10)
[2017-01-17] MEDS: INSULIN LISPRO 100 UNIT/ML 3 ML VIAL SUBCUT PRN ×4 (08:10→23:16)
[2017-01-17] MEDS: LACTULOSE SYRUP 20 GM/30 ML UDCUP PO SCH ×2 (10:39→18:15)
[2017-01-17] MEDS: POLYETHYLENE GLYCOL 3350 POWDER 17 GM/1 PACKET PO SCH (10:40)
[2017-01-17] MEDS: ASPIRIN 81 MG TABLET, CHEWABLE PO SCH (10:40)
[2017-01-17] MEDS: PREGABALIN 100 MG CAPSULE PO SCH ×2 (10:40→22:02)
[2017-01-17] MEDS: FAMOTIDINE 20 MG TABLET PO SCH ×2 (10:41→18:15)
[2017-01-17] MEDS: METOPROLOL TARTRATE 25 MG TABLET PO SCH ×2 (10:41→22:06)
[2017-01-17] MEDS: BUSPIRONE HCL 10 MG TABLET PO SCH ×2 (10:41→22:04)
[2017-01-17] MEDS: RANOLAZINE 500 MG TAB.SR.12H PO SCH ×2 (10:42→22:02)
[2017-01-17] MEDS: PREDNISONE 20 MG TABLET PO SCH (10:42)
[2017-01-17] MEDS: DOCUSATE SODIUM 100 MG CAPSULE PO SCH ×2 (10:43→18:15)
[2017-01-17] MEDS: GUAIFENESIN 600 MG TABLET.SA PO SCH ×2 (10:43→22:03)
[2017-01-17] MEDS: DULOXETINE HCL 30 MG CAPSULE.DR PO SCH (10:43)
[2017-01-17] MEDS: FLUTICASONE NASAL SPRAY 50 MCG/SPRY 120 SPRAY/16 GM NASL SCH (10:44)
[2017-01-17] MEDS: TIOTROPIUM BROMIDE DPI 5 CAP/KIT (18 MCG/CAP) IH SCH (10:45)
[2017-01-17] MEDS: LIDOCAINE 5% (700 MG) TRANSDERMAL ADH..PATCH TP SCH (10:54)
[2017-01-17] MEDS: FENTANYL 25 MCG/HR PATCH.TD72 TD SCH (10:55)
[2017-01-17] MEDS ORDERED: BENZOCAINE/MENTHOL SORE THROAT LOZENGE BUCCAL PRN (11:21)
[2017-01-17] MEDS: HYDROCODONE/ACETAMINOPHEN 5-325 MG TABLET PO PRN ×2 (14:58→22:21)
--- NOTE | 2017-01-17 16:12 | PDOC PROGRESS REPORT ---
Subjective Progress Note for:: 01/17/17 Subjective:: Patient was seen on morning rounds. She is resting in bed on nasal cannula. She denies any respiratory distress at present time. She states she does have productive cough with thick white yellow mucus raised. She denies any chest pains, palpitations or dyspnea. She has not had a bowel movement in the last 2 days. She denies any nausea, vomiting or abdominal pain. She states most of her pain is in her neck and her back. Remaining review of systems are all negative. Physical Exam Vital Signs: Temp Pulse Resp BP Pulse Ox 98.7 F 73 18 153/95 H 98 01/17/17 11:16 01/17/17 15:51 01/17/17 15:51 01/17/17 11:16 01/17/17 15:51 Intake & Output 01/16/17 01/17/17 01/18/17 06:59 06:59 06:59 Intake Total 575 2035 475 Balance 575 2035 475 Weight 105 kg General appearance: PRESENT: no acute distress, morbidly obese, well-developed, well-nourished Head exam: PRESENT: atraumatic, normocephalic Eye exam: PRESENT: conjunctiva pink, EOMI, PERRLA. ABSENT: scleral icterus Ear exam: PRESENT: normal external ear exam Mouth exam: PRESENT: moist, tongue midline Neck exam: ABSENT: carotid bruit, JVD, lymphadenopathy, thyromegaly Respiratory exam: PRESENT: clear to auscultation elia. ABSENT: rales, rhonchi, wheezes Cardiovascular exam: PRESENT: RRR. ABSENT: diastolic murmur, rubs, systolic murmur Vascular exam: PRESENT: normal capillary refill GI/Abdominal exam: PRESENT: normal bowel sounds, soft. ABSENT: distended, guarding, mass, organolmegaly, rebound, tenderness Rectal exam: PRESENT: deferred Extremities exam: PRESENT: full ROM. ABSENT: calf tenderness, clubbing, pedal edema Neurological exam: PRESENT: alert, awake, oriented to person, oriented to place , oriented to time, oriented to situation, CN II-XII grossly intact. ABSENT: motor sensory deficit Psychiatric exam: PRESENT: appropriate affect, normal mood. ABSENT: homicidal ideation, suicidal ideation Skin exam: PRESENT: dry, intact, warm. ABSENT: cyanosis, rash Results Laboratory Results: 01/17/17 06:00 01/17/17 06:00 01/14/17 01/17/17 01/17/17 06:40 06:00 06:00 WBC 7.6 RBC 3.51 L Hgb 10.1 L Hct 31.0 L MCV 88 D MCH 28.6 MCHC 32.5 RDW 15.2 H Plt Count 262 Seg Neutrophils % 82.6 H Lymphocytes % 7.7 L Monocytes % 9.6 Eosinophils % 0.0 Basophils % 0.1 Absolute Neutrophils 6.2 Absolute Lymphocytes 0.6 Absolute Monocytes 0.7 Absolute Eosinophils 0.0 Absolute Basophils 0.0 VBG pH 7.31 VBG pCO2 42.3 VBG HCO3 20.9 VBG Base Excess -5.1 Sodium 137.4 Potassium 4.0 Chloride 98 Carbon Dioxide 28 Anion Gap 11 BUN 38 H Creatinine 1.15 Est GFR ( Amer) 56 L Est GFR (Non-Af Amer) 46 L Glucose 304 H Calcium 9.4 Impressions: Chest X-Ray 01/13/17 19:11 IMPRESSION: Suspect scar in the lingula. Heart enlarged without overt failure. Chest is felt to be relatively stable. Interventional Vascular Procedure 01/15/17 00:00 IMPRESSION: SUCCESSFUL PLACEMENT OF A 5 FR DUAL LUMEN 37 CM PICC IN THE right basilic VEIN. PICC Line Insertion 01/15/17 00:00 IMPRESSION: SUCCESSFUL PLACEMENT OF A 5 FR DUAL LUMEN 37 CM PICC IN THE right basilic VEIN. Assessment & Plan - Diagnosis (1) Acute and chronic respiratory failure Qualifiers: Respiratory failure complication: hypoxia Qualified Code(s): J96.21 - Acute and chronic respiratory failure with hypoxia Is this a current diagnosis for this admission?: YesPlan: "Improved blood gas. Will wean steroids (2) Atrial fibrillation with rapid ventricular response Plan: Controlled rate on eliguis (3) COPD exacerbation Is this a current diagnosis for this admission?: YesPlan: Continue nebulizers, steroids and inhalers (4) Anemia Qualifiers: Anemia type: iron deficiency Iron deficiency anemia type: other iron deficiency Qualified Code(s): D50.8 - Other iron deficiency anemias Is this a current diagnosis for this admission?: YesPlan: Stable will continue to observe (5) Bronchitis, mucopurulent recurrent Is this a current diagnosis for this admission?: YesPlan: Continue nebulizer treatments and steroids (6) Constipation due to opioid therapy Is this a current diagnosis for this admission?: YesPlan: Continue bowel regimen (7) DVT prophylaxis Is this a current diagnosis for this admission?: YesPlan: Patient is on eliquis (8) Diabetes mellitus type II, controlled Qualifiers: Diabetes mellitus complication status: without complication Diabetes mellitus prison insulin use: without medical terminologist use Qualified Code(s): E11.9 - Type 2 diabetes mellitus without complications Is this a current diagnosis for this admission?: YesPlan: continue current medications and sliding scale coverage (9) Morbid (severe) obesity with alveolar hypoventilation Is this a current diagnosis for this admission?: YesPlan: Counseled - Time Time Spent with patient: 25-34 minutes Critical Time spent with patient: 15-24 minutes Medications reviewed and adjusted accordingly: Yes Anticipated discharge: Home with Homehealth - Inpatient Certification Based on my medical assessment, after consideration of the patient's comorbidities, presenting symptoms, or acuity I expect that the services needed warrant INPATIENT care.: Yes I certify that my determination is in accordance with my understanding of Medicare's requirements for reasonable and necessary INPATIENT services [42 CFR 412.3e].: Yes
[2017-01-17] MEDS: SENNOSIDES/DOCUSATE 8.6-50 MG 1 EACH TABLET PO SCH (22:01)
[2017-01-18] MEDS: LEVALBUTEROL HCL NEB 1.25 MG/3 ML AMPUL NEB SCH ×4 (00:27→20:26)
[2017-01-18] MEDS: INSULIN LISPRO 100 UNIT/ML 3 ML VIAL SUBCUT PRN ×4 (06:48→23:07)
[2017-01-18] MEDS: DILTIAZEM HCL 60 MG TABLET PO SCH ×3 (06:48→22:59)
[2017-01-18] MEDS: BUDESONIDE NEB 0.5 MG/2 ML AMPUL NEB SCH ×2 (08:15→20:26)
[2017-01-18] MEDS: FUROSEMIDE 40 MG TABLET PO SCH (08:54)
[2017-01-18] MEDS ORDERED: INSULIN DETEMIR 100 UNIT/ML 3 ML PEN SUBCUT SCH (10:00)
[2017-01-18] MEDS: POLYETHYLENE GLYCOL 3350 POWDER 17 GM/1 PACKET PO SCH (10:15)
[2017-01-18] MEDS: LIDOCAINE 5% (700 MG) TRANSDERMAL ADH..PATCH TP SCH (10:15)
[2017-01-18] MEDS: LACTULOSE SYRUP 20 GM/30 ML UDCUP PO SCH ×2 (10:16→18:15)
[2017-01-18] MEDS: RANOLAZINE 500 MG TAB.SR.12H PO SCH ×2 (10:16→23:06)
[2017-01-18] MEDS: PREDNISONE 20 MG TABLET PO SCH (10:17)
[2017-01-18] MEDS: HYDROCODONE/ACETAMINOPHEN 5-325 MG TABLET PO PRN ×2 (10:17→20:52)
[2017-01-18] MEDS: PREGABALIN 100 MG CAPSULE PO SCH ×2 (10:17→23:00)
[2017-01-18] MEDS: DULOXETINE HCL 30 MG CAPSULE.DR PO SCH (10:18)
[2017-01-18] MEDS: FAMOTIDINE 20 MG TABLET PO SCH ×2 (10:18→17:55)
[2017-01-18] MEDS: GUAIFENESIN 600 MG TABLET.SA PO SCH ×2 (10:19→22:59)
[2017-01-18] MEDS: ASPIRIN 81 MG TABLET, CHEWABLE PO SCH (10:19)
[2017-01-18] MEDS: DOCUSATE SODIUM 100 MG CAPSULE PO SCH ×2 (10:20→17:55)
[2017-01-18] MEDS: BUSPIRONE HCL 10 MG TABLET PO SCH ×2 (10:20→22:58)
[2017-01-18] MEDS: METOPROLOL TARTRATE 25 MG TABLET PO SCH ×2 (10:20→23:01)
[2017-01-18] MEDS: FLUTICASONE NASAL SPRAY 50 MCG/SPRY 120 SPRAY/16 GM NASL SCH (10:22)
[2017-01-18] MEDS: TIOTROPIUM BROMIDE DPI 5 CAP/KIT (18 MCG/CAP) IH SCH (10:23)
[2017-01-18] MEDS: SENNOSIDES/DOCUSATE 8.6-50 MG 1 EACH TABLET PO SCH (22:58)
[2017-01-18] MEDS: LEVALBUTEROL HCL NEB 0.63 MG/3 ML AMPUL NEB PRN (23:50)
[2017-01-19] MEDS: INSULIN LISPRO 100 UNIT/ML 3 ML VIAL SUBCUT PRN ×4 (06:45→22:46)
[2017-01-19] MEDS: DILTIAZEM HCL 60 MG TABLET PO SCH ×3 (06:45→22:47)
[2017-01-19] MEDS: FUROSEMIDE 40 MG TABLET PO SCH (08:20)
[2017-01-19] MEDS: HYDROCODONE/ACETAMINOPHEN 5-325 MG TABLET PO PRN (08:21)
[2017-01-19] MEDS: BUDESONIDE NEB 0.5 MG/2 ML AMPUL NEB SCH ×2 (08:26→20:36)
[2017-01-19] MEDS: LEVALBUTEROL HCL NEB 0.63 MG/3 ML AMPUL NEB PRN ×2 (08:26→20:36)
[2017-01-19] MEDS ORDERED: INSULIN DETEMIR 100 UNIT/ML 3 ML PEN SUBCUT ONE (08:30)
[2017-01-19] MEDS: LEVALBUTEROL HCL NEB 1.25 MG/3 ML AMPUL NEB SCH ×2 (09:04→16:31)
[2017-01-19] MEDS ORDERED: ERTAPENEM SODIUM 1 GM in NORMAL SALINE 50 ML IV SCH (10:00)
[2017-01-19] MEDS: DOCUSATE SODIUM 100 MG CAPSULE PO SCH ×2 (10:02→17:25)
[2017-01-19] MEDS: FAMOTIDINE 20 MG TABLET PO SCH ×2 (10:02→17:25)
[2017-01-19] MEDS: ASPIRIN 81 MG TABLET, CHEWABLE PO SCH (10:02)
[2017-01-19] MEDS: GUAIFENESIN 600 MG TABLET.SA PO SCH ×2 (10:02→22:50)
[2017-01-19] MEDS: LIDOCAINE 5% (700 MG) TRANSDERMAL ADH..PATCH TP SCH (10:02)
[2017-01-19] MEDS: BUSPIRONE HCL 10 MG TABLET PO SCH ×2 (10:02→22:51)
[2017-01-19] MEDS: DULOXETINE HCL 30 MG CAPSULE.DR PO SCH (10:02)
[2017-01-19] MEDS: RANOLAZINE 500 MG TAB.SR.12H PO SCH ×2 (10:03→22:49)
[2017-01-19] MEDS: ACETAMINOPHEN 325 MG TABLET PO PRN ×2 (10:03→17:41)
[2017-01-19] MEDS: PREGABALIN 100 MG CAPSULE PO SCH ×2 (10:03→22:47)
[2017-01-19] MEDS: METOPROLOL TARTRATE 25 MG TABLET PO SCH ×2 (10:03→22:48)
[2017-01-19] MEDS: POLYETHYLENE GLYCOL 3350 POWDER 17 GM/1 PACKET PO SCH (10:03)
[2017-01-19] MEDS: PREDNISONE 20 MG TABLET PO SCH (10:03)
[2017-01-19] MEDS: FLUTICASONE NASAL SPRAY 50 MCG/SPRY 120 SPRAY/16 GM NASL SCH (10:04)
[2017-01-19] MEDS: BENZONATATE 100 MG CAPSULE PO PRN ×2 (10:04→22:46)
[2017-01-19] MEDS: LACTULOSE SYRUP 20 GM/30 ML UDCUP PO SCH ×2 (10:06→17:33)
[2017-01-19] MEDS: TIOTROPIUM BROMIDE DPI 5 CAP/KIT (18 MCG/CAP) IH SCH (11:19)
--- NOTE | 2017-01-19 14:22 | PDOC PROGRESS REPORT ---
Subjective Progress Note for:: 01/19/17 Subjective:: Patient was seen on morning rounds. She is resting in bed on nasal cannula. She denies any respiratory distress at present time. She states she does have productive cough with thick white yellow mucus raised. She denies any chest pains, palpitations or dyspnea. She has not had a bowel movement in the last 2 days. She denies any nausea, vomiting or abdominal pain. She states most of her pain is in her neck and her back. Remaining review of systems are all negative. Physical Exam Vital Signs: Temp Pulse Resp BP Pulse Ox 98.3 F 71 20 113/51 L 100 01/19/17 11:42 01/19/17 14:00 01/19/17 11:42 01/19/17 11:42 01/19/17 11:42 Intake & Output 01/18/17 01/19/17 01/20/17 06:59 06:59 06:59 Intake Total 2182 1561 637 Balance 2182 1561 637 Weight 104.9 kg 104 kg General appearance: PRESENT: no acute distress, morbidly obese, well-developed, well-nourished Head exam: PRESENT: atraumatic, normocephalic Eye exam: PRESENT: conjunctiva pink, EOMI, PERRLA. ABSENT: scleral icterus Ear exam: PRESENT: normal external ear exam Mouth exam: PRESENT: moist, tongue midline Neck exam: ABSENT: carotid bruit, JVD, lymphadenopathy, thyromegaly Respiratory exam: PRESENT: rhonchi - bilateral expiratory wheezing, symmetrical , unlabored, wheezes Cardiovascular exam: PRESENT: irregular rhythm, +S1, +S2 Pulses: PRESENT: normal dorsalis pedis pul Vascular exam: PRESENT: normal capillary refill GI/Abdominal exam: PRESENT: normal bowel sounds, soft. ABSENT: distended, guarding, mass, organolmegaly, rebound, tenderness Rectal exam: PRESENT: deferred Extremities exam: PRESENT: full ROM. ABSENT: calf tenderness, clubbing, pedal edema Neurological exam: PRESENT: alert, awake, oriented to person, oriented to place , oriented to time, oriented to situation, CN II-XII grossly intact. ABSENT: motor sensory deficit Psychiatric exam: PRESENT: appropriate affect, normal mood. ABSENT: homicidal ideation, suicidal ideation Skin exam: PRESENT: dry, intact, warm. ABSENT: cyanosis, rash Results Laboratory Results: 01/17/17 06:00 01/17/17 06:00 01/14/17 07:34 Blood Blood Culture - Final NO GROWTH IN 5 DAYS Impressions: Chest X-Ray 01/13/17 19:11 IMPRESSION: Suspect scar in the lingula. Heart enlarged without overt failure. Chest is felt to be relatively stable. Interventional Vascular Procedure 01/15/17 00:00 IMPRESSION: SUCCESSFUL PLACEMENT OF A 5 FR DUAL LUMEN 37 CM PICC IN THE right basilic VEIN. PICC Line Insertion 01/15/17 00:00 IMPRESSION: SUCCESSFUL PLACEMENT OF A 5 FR DUAL LUMEN 37 CM PICC IN THE right basilic VEIN. Assessment & Plan - Diagnosis (1) Acute and chronic respiratory failure Qualifiers: Respiratory failure complication: hypoxia Qualified Code(s): J96.21 - Acute and chronic respiratory failure with hypoxia Is this a current diagnosis for this admission?: YesPlan: "Improved blood gas. Will wean steroids (2) Gram-negative bacteremia Is this a current diagnosis for this admission?: YesPlan: Patient started on Invanz (3) Gram-negative bacteremia Is this a current diagnosis for this admission?: YesPlan: Will start Invanz and await final blood cultures (4) Atrial fibrillation with rapid ventricular response Plan: Controlled rate on eliguis (5) COPD exacerbation Is this a current diagnosis for this admission?: YesPlan: Continue nebulizers, steroids and inhalers (6) Anemia Qualifiers: Anemia type: iron deficiency Iron deficiency anemia type: other iron deficiency Qualified Code(s): D50.8 - Other iron deficiency anemias Is this a current diagnosis for this admission?: YesPlan: Stable will continue to observe (7) Bronchitis, mucopurulent recurrent Is this a current diagnosis for this admission?: YesPlan: Continue nebulizer treatments and steroids (8) Constipation due to opioid therapy Is this a current diagnosis for this admission?: YesPlan: Continue bowel regimen (9) DVT prophylaxis Is this a current diagnosis for this admission?: YesPlan: Patient is on eliquis (10) Diabetes mellitus type II, controlled Qualifiers: Diabetes mellitus complication status: without complication Diabetes mellitus terminal carman insulin use: without terminal carman use Qualified Code(s): E11.9 - Type 2 diabetes mellitus without complications Is this a current diagnosis for this admission?: YesPlan: continue current medications and sliding scale coverage (11) Morbid (severe) obesity with alveolar hypoventilation Is this a current diagnosis for this admission?: YesPlan: Counseled - Time Time Spent with patient: 25-34 minutes Critical Time spent with patient: 15-24 minutes Medications reviewed and adjusted accordingly: Yes Anticipated discharge: SNF Within: within 24 hours
[2017-01-19] MEDS ORDERED: NORMAL SALINE 10 ML SDV (AFTER EACH USE) IV PRN (15:47)
[2017-01-19] MEDS: SENNOSIDES/DOCUSATE 8.6-50 MG 1 EACH TABLET PO SCH (22:47)
[2017-01-19] MEDS: NORMAL SALINE 10 ML SDV (SCHEDULED) IV SCH (22:52)
[2017-01-20] MEDS: LEVALBUTEROL HCL NEB 1.25 MG/3 ML AMPUL NEB SCH ×4 (00:02→23:17)
[2017-01-20] MEDS: HYDROCODONE/ACETAMINOPHEN 5-325 MG TABLET PO PRN ×2 (00:33→22:59)
[2017-01-20] MEDS: DILTIAZEM HCL 60 MG TABLET PO SCH ×3 (06:57→23:01)
[2017-01-20] MEDS: INSULIN LISPRO 100 UNIT/ML 3 ML VIAL SUBCUT PRN ×4 (07:50→23:06)
[2017-01-20] MEDS: FUROSEMIDE 40 MG TABLET PO SCH (07:51)
[2017-01-20] MEDS: ACETAMINOPHEN 325 MG TABLET PO PRN (07:51)
[2017-01-20] MEDS: BUDESONIDE NEB 0.5 MG/2 ML AMPUL NEB SCH ×2 (08:44→20:08)
[2017-01-20] MEDS: ASPIRIN 81 MG TABLET, CHEWABLE PO SCH (10:00)
[2017-01-20] MEDS: BUSPIRONE HCL 10 MG TABLET PO SCH ×2 (10:01→23:02)
[2017-01-20] MEDS: DULOXETINE HCL 30 MG CAPSULE.DR PO SCH (10:02)
[2017-01-20] MEDS: DOCUSATE SODIUM 100 MG CAPSULE PO SCH ×2 (10:02→18:33)
[2017-01-20] MEDS: FAMOTIDINE 20 MG TABLET PO SCH ×2 (10:03→18:32)
[2017-01-20] MEDS: LACTULOSE SYRUP 20 GM/30 ML UDCUP PO SCH ×2 (10:04→19:08)
[2017-01-20] MEDS: FENTANYL 25 MCG/HR PATCH.TD72 TD SCH (10:04)
[2017-01-20] MEDS: GUAIFENESIN 600 MG TABLET.SA PO SCH ×2 (10:04→23:00)
[2017-01-20] MEDS: LIDOCAINE 5% (700 MG) TRANSDERMAL ADH..PATCH TP SCH (10:05)
[2017-01-20] MEDS: METOPROLOL TARTRATE 25 MG TABLET PO SCH ×2 (10:05→22:59)
[2017-01-20] MEDS: PREDNISONE 20 MG TABLET PO SCH (10:05)
[2017-01-20] MEDS: POLYETHYLENE GLYCOL 3350 POWDER 17 GM/1 PACKET PO SCH (10:05)
[2017-01-20] MEDS: NORMAL SALINE 10 ML SDV (SCHEDULED) IV SCH ×2 (10:06→23:04)
[2017-01-20] MEDS: RANOLAZINE 500 MG TAB.SR.12H PO SCH ×2 (10:06→23:01)
[2017-01-20] MEDS: PREGABALIN 100 MG CAPSULE PO SCH ×2 (10:06→23:00)
[2017-01-20] MEDS: FLUTICASONE NASAL SPRAY 50 MCG/SPRY 120 SPRAY/16 GM NASL SCH (10:07)
[2017-01-20] MEDS: TIOTROPIUM BROMIDE DPI 5 CAP/KIT (18 MCG/CAP) IH SCH (10:07)
[2017-01-20] MEDS: INSULIN DETEMIR 100 UNIT/ML 3 ML PEN SUBCUT SCH (10:09)
[2017-01-20] MEDS: BENZONATATE 100 MG CAPSULE PO PRN (10:25)
[2017-01-20] MEDS ORDERED: ACETYLCYSTEINE 20% SOLN 800 MG/4 ML VIAL.NEB NEB PRN (12:16)
--- NOTE | 2017-01-20 13:14 | PDOC PROGRESS REPORT ---
Subjective Progress Note for:: 01/20/17 Subjective:: Patient was seen on morning rounds. She is resting in bed on nasal cannula. She denies any respiratory distress at present time. She states she does have productive cough with thick white yellow mucus raised. She denies any chest pains, palpitations or dyspnea. She is complaining of posterior neck pain and headache. She denies any nausea, vomiting or abdominal pain. She states most of her pain is in her neck and her back. Remaining review of systems are all negative. Physical Exam Vital Signs: Temp Pulse Resp BP Pulse Ox 98.4 F 64 19 148/72 H 100 01/20/17 11:49 01/20/17 11:49 01/20/17 11:49 01/20/17 11:49 01/20/17 11:49 Intake & Output 01/19/17 01/20/17 01/21/17 06:59 06:59 06:59 Intake Total 1561 6 356 Balance 1562055 356 Weight 104 kg 104.9 kg General appearance: PRESENT: no acute distress, morbidly obese, well-developed, well-nourished Head exam: PRESENT: atraumatic, normocephalic Eye exam: PRESENT: conjunctiva pink, EOMI, PERRLA. ABSENT: scleral icterus Ear exam: PRESENT: normal external ear exam Mouth exam: PRESENT: moist, tongue midline Neck exam: ABSENT: carotid bruit, JVD, lymphadenopathy, thyromegaly Respiratory exam: PRESENT: rhonchi, symmetrical, unlabored, wheezes Cardiovascular exam: PRESENT: irregular rhythm, +S1, +S2. ABSENT: diastolic murmur, rubs, systolic murmur Pulses: PRESENT: normal carotid pulses Vascular exam: PRESENT: normal capillary refill GI/Abdominal exam: PRESENT: normal bowel sounds, soft. ABSENT: distended, guarding, mass, organolmegaly, rebound, tenderness Rectal exam: PRESENT: deferred Extremities exam: PRESENT: full ROM. ABSENT: calf tenderness, clubbing, pedal edema Musculoskeletal exam: PRESENT: normal inspection, tenderness - posterior neck Neurological exam: PRESENT: alert, awake, oriented to person, oriented to place , oriented to time, oriented to situation, CN II-XII grossly intact. ABSENT: motor sensory deficit Psychiatric exam: PRESENT: flat affect Skin exam: PRESENT: dry, intact, warm. ABSENT: cyanosis, rash Results Laboratory Results: 01/17/17 06:00 01/17/17 06:00 Impressions: Chest X-Ray 01/13/17 19:11 IMPRESSION: Suspect scar in the lingula. Heart enlarged without overt failure. Chest is felt to be relatively stable. Interventional Vascular Procedure 01/15/17 00:00 IMPRESSION: SUCCESSFUL PLACEMENT OF A 5 FR DUAL LUMEN 37 CM PICC IN THE right basilic VEIN. PICC Line Insertion 01/15/17 00:00 IMPRESSION: SUCCESSFUL PLACEMENT OF A 5 FR DUAL LUMEN 37 CM PICC IN THE right basilic VEIN. Assessment & Plan - Diagnosis (1) Acute and chronic respiratory failure Qualifiers: Respiratory failure complication: hypoxia Qualified Code(s): J96.21 - Acute and chronic respiratory failure with hypoxia Is this a current diagnosis for this admission?: YesPlan: Improved blood gas. Will wean steroids. She has some more congestion (2) Gram-negative bacteremia Is this a current diagnosis for this admission?: YesPlan: Patient started on Invanz (4) COPD exacerbation Is this a current diagnosis for this admission?: YesPlan: Continue nebulizers, steroids and inhalers (5) Anemia Qualifiers: Anemia type: iron deficiency Iron deficiency anemia type: other iron deficiency Qualified Code(s): D50.8 - Other iron deficiency anemias Is this a current diagnosis for this admission?: YesPlan: Stable will continue to observe (6) Bronchitis, mucopurulent recurrent Is this a current diagnosis for this admission?: YesPlan: Continue nebulizer treatments and steroids (7) Constipation due to opioid therapy Is this a current diagnosis for this admission?: YesPlan: Continue bowel regimen (8) DVT prophylaxis Is this a current diagnosis for this admission?: YesPlan: Patient is on eliquis (9) Diabetes mellitus type II, controlled Qualifiers: Diabetes mellitus complication status: without complication Diabetes mellitus group home insulin use: without technician terminal and repeater use Qualified Code(s): E11.9 - Type 2 diabetes mellitus without complications Is this a current diagnosis for this admission?: YesPlan: continue current medications and sliding scale coverage (10) Morbid (severe) obesity with alveolar hypoventilation Is this a current diagnosis for this admission?: YesPlan: Counseled - Time Time Spent with patient: 25-34 minutes Critical Time spent with patient: 15-24 minutes Medications reviewed and adjusted accordingly: Yes Anticipated discharge: SNF Within: within 24 hours
[2017-01-20] MEDS: BUTALB/ACETAMINOPHEN/CAFFEINE 1 TAB EACH PO PRN (13:59)
[2017-01-20] MEDS: LEVALBUTEROL HCL NEB 0.63 MG/3 ML AMPUL NEB PRN ×2 (14:36→20:08)
[2017-01-20] MEDS: ACETYLCYSTEINE 20% SOLN 800 MG/4 ML VIAL.NEB NEB SCH (20:04)
[2017-01-20] MEDS: SENNOSIDES/DOCUSATE 8.6-50 MG 1 EACH TABLET PO SCH (23:04)
[2017-01-21] MEDS: DILTIAZEM HCL 60 MG TABLET PO SCH ×2 (06:58→16:24)
--- NOTE | 2017-01-21 07:50 | PDOC TRANSFER SUMMARY ---
General - Admit/Disc Date/PCP Admission Date/Primary Care Provider: 01/14/17 03:09 MUSA HODGSON MD Discharge Date: 01/21/17 - Discharge Diagnosis (1) Acute and chronic respiratory failure Is this a current diagnosis for this admission?: YesSummary: Patient was hypercapneic. She had no pneumonia on chest xray or signs of sepsis. [facility] was consulted. They feel unless she has signs of sepsis or pneumonia antibiotic therapy should be avoided due to her multiple drug resistance. She was treated with IV steroids tapering dose of prednisone. She is presently down to prednisone 20 mg daily for the next 5 days (3) COPD exacerbation Is this a current diagnosis for this admission?: YesSummary: As above (4) Bronchitis, mucopurulent recurrent Is this a current diagnosis for this admission?: YesSummary: Treated with mucolytics and nebulizer treatments (5) Constipation due to opioid therapy Is this a current diagnosis for this admission?: YesSummary: Continue bowel regimen (6) Anemia Is this a current diagnosis for this admission?: YesSummary: Stable (7) Diabetes mellitus type II, controlled Is this a current diagnosis for this admission?: YesSummary: Continue current medications and sliding scale coverage (8) DVT prophylaxis Is this a current diagnosis for this admission?: YesSummary: Jennie (9) Morbid (severe) obesity with alveolar hypoventilation Is this a current diagnosis for this admission?: YesSummary: Counseled - Additional Information Resuscitation Status: Do Not Resuscitate Discharge Diet: Diabetic Discharge Activity: Activity As Tolerated Home Medications: Acetaminophen [Tylenol 325 mg Tablet] 650 mg PO Q4HP PRN 01/14/17 Albuterol Sulfate [Albuterol Sulfate 2.5mg/3 mL] 2.5 mg IH RTQ2HP PRN 01/14/17 Aspirin [Aspirin 81 mg Chewable Tablet] 81 mg PO DAILY 01/14/17 Benzonatate [Tessalon Perles 100 mg Capsule] 100 mg PO Q8 01/14/17 Budesonide [Pulmicort Neb 0.5 mg/2 ml Ampul] 0.5 mg NEB RTQ12 01/14/17 Buspirone HCl [Buspar 5 mg Tablet] 5 mg PO Q12 01/14/17 Dextromethorphan HBr [Delsym] 60 mg PO Q12HP PRN 01/14/17 Diltiazem HCl [Cardizem 60 mg Tablet] 60 mg PO Q8 01/14/17 Diphenhydramine HCl [Benadryl 25 mg Capsule] 25 mg PO Q6HP PRN 01/14/17 Docusate Sodium [Colace 100 mg Capsule] 100 mg PO BID 01/14/17 Duloxetine HCl 90 mg PO DAILY 01/14/17 Famotidine [Pepcid 20 mg Tablet] 20 mg PO BID 01/14/17 Furosemide [Lasix] 40 mg PO QAM 01/14/17 Guaifenesin [Mucinex Sr 600 mg Tablet.sa] 1,200 mg PO Q12 01/14/17 Insulin Aspart [Novolog Insulin (Aspart) 100 unit/mL] 0 unit SUBCUT .SLD SCALE 01/14/17 Insulin Detemir [Levemir Flextouch] 30 unit SQ DAILY 01/14/17 Ipratropium/Albuterol Sulfate [Duoneb 3 ml Ampul] 3 ml NEB [id number] 01/14/17 Lactulose [Cephulac Syrup 20 gm/30 ml Udcup] 20 gm PO BID 01/14/17 Linaclotide [Linzess 145 Mcg Capsule] 145 mcg PO QAM 01/14/17 Magnesium Hydroxide [Milk of Magnesia 30 ml Udcup] 30 ml PO DAILYP PRN 01/14/17 Metoprolol Tartrate [Lopressor 25 mg Tablet] 25 mg PO Q12 01/14/17 Nitroglycerin [Nitrostat 0.4 mg (1/150 Gr) Tabs 25/Bottle] 1 tab SL Q5MP PRN Omeprazole 20 mg PO Q6AM 01/14/17 Polyethylene Glycol 3350 [Miralax Powder 17 gm/Packet] 17 gm PO DAILY 01/14/17 Potassium Chloride [K-Tab ER] 40 meq PO DAILY 01/14/17 Pregabalin [Lyrica 100 mg Capsule] 100 mg PO Q12 01/14/17 Promethazine HCl [Phenergan 25 mg Tablet] 25 mg PO Q6HP PRN 01/14/17 Ranolazine [Ranexa 500 mg Tab.sr] 500 mg PO Q12 01/14/17 Sennosides/Docusate 8.6-50 mg [Senna Plus Tablet] 2 tab PO QHS 01/14/17 Tobramycin Sulfate [Tobramycin Neb 40 mg/ml 30 ml Vial] 300 mg NEB RTQ12 Benzocaine/Menthol [Chloraseptic Sore Throat Lozenge] 1 each BUCCAL Q1HP PRN lozenge 01/21/17 Butalb/Acetaminophen/Caffeine [Fioricet (50-325-40 mg) Tablet] 2 tab PO Q6HP PRN each 01/21/17 Fentanyl [Duragesic 25 mcg/hr Transdermal Patch] 1 each TD Q3D #2 patch.td72 Fluticasone Propionate [Flonase Nasal [place] 50 Mcg/[place] 16 gm] 2 spray NASL DAILY spray.pump 01/21/17 Hydrocodone Bit/Acetaminophen [Hydrocodon-Acetaminophen 5-325] 1 tab PO Q4HP PRN #18 tablet 01/21/17 Levalbuterol HCl [Xopenex Neb 1.25 mg/3 ml Ampul] 1.25 mg NEB RTQ8 vial.neb Lidocaine [Lidoderm 5% (700 mg) Transdermal Patch] 2 patch TP DAILY adh..patch 01/21/17 Prednisone [Deltasone 20 mg Tablet] 20 mg PO DAILY #5 tablet 01/21/17 Tiotropium [place] [Spiriva Handihaler 5 Cap/Kit (18 Mcg/Cap)] 1 cap IH DAILY kit 01/21/17 History of Present Illness Admission Date/PCP: 01/14/17 03:09 MUSA HODGSON MD Patient complains of: Shortness of breath and dyspnea History of Present Illness: PORSHA WALDRON is a 71 year old morbidly obese female, well-known to the hospitalist service for multiple admissions, typically for urinary tract infection, and/or COPD exacerbation with acute on chronic respiratory failure. Presents to the emergency room for evaluation of above complaint. Patient has been discussed with emergency room physician who evaluated the patient. Patient appears quite fatigued, and while she is maintaining her airway well, and does open her eyes when spoken to in a somewhat loud voice, is able to provide no history whatsoever in terms of acute or chronic events, review of systems, personal habits, family history, etc. No friends or family are present. Old inpatient records are reviewed. Was noted to be in significant respiratory distress upon initial evaluation in the emergency room, but has improved with treatment so far. According to the emergency room physician, when patient was recently transferred from our facility back to [facility], she was supposed to be receiving tobramycin nebulizer treatments twice a day. However, from his review of the medication administration record from the long-term, she has not received these treatments. No further information available this point in time. Hospitalized on our service the through the of this month with final diagnoses including ESBL E. coli urinary tract infection due to chronic indwelling Barton catheter, paroxysmal atrial fibrillation with rapid ventricular response, acute on chronic respiratory failure with hypoxia and hypercapnia, along with multiple other diagnoses. Sputum grew Pseudomonas and MRSA. History and physical and transfer summary have been reviewed. Laboratory results are listed in [facility] and are reviewed. X-ray summary results are listed below, with full report(s) reviewed. . EKG reviewed and compared to prior tracing from the sixth of this month. Social history/personal habits: From prior records, she is a . Long-term resident of [facility]. No use of alcohol tobacco or illicit drugs. No further information available this point in time. Allergies/adverse reactions are listed in [facility] and are reviewed. Home medications initially autopopulated into [employer] may not accurately reflect patient's true medications, dosages, and/or frequencies. instrumentation and control technician to reconcile medications. Unfortunately, patient cannot provide any information related to medications/ dosages/frequencies. Hospital Course Hospital Course: Patient was admitted to [facility] on telemetry. She was continued on IV solumedrol, nebulizer treatments and mucolytics. She was placed on BIPAP as needed during the day and all night. Her breathing status improved over the next 3 days. She had complaints of constipation and was given one soap suds enema with good results. She had one blood culture come back positive at 72 hrs for gram negative rods, which grew corynbacterium, a skin contaminant. She received no antibiotics. She also complained about headaches and was started on Fiorcet which helped. No other change in medications were made. Physical Exam Vital Signs: Temp Pulse Resp BP Pulse Ox 97.7 F 57 L 14 119/68 100 01/21/17 03:55 01/21/17 03:55 01/21/17 05:12 01/21/17 03:55 01/21/17 05:12 Intake & Output 01/20/17 01/21/17 01/22/17 06:59 06:59 06:59 Intake Total 2055 156 Balance 2055 1562 Weight 104.9 kg 105.2 kg General appearance: PRESENT: no acute distress, morbidly obese, well-developed, well-nourished Head exam: PRESENT: atraumatic, normocephalic Eye exam: PRESENT: conjunctiva pink, EOMI, PERRLA. ABSENT: scleral icterus Ear exam: PRESENT: normal external ear exam Mouth exam: PRESENT: moist, tongue midline Neck exam: ABSENT: carotid bruit, JVD, lymphadenopathy, thyromegaly Respiratory exam: PRESENT: rhonchi, symmetrical, unlabored Cardiovascular exam: PRESENT: irregular rhythm, +S1, +S2 Pulses: PRESENT: normal carotid pulses, normal radial pulses, normal femoral pulses GI/Abdominal exam: PRESENT: normal bowel sounds, soft. ABSENT: distended, guarding, mass, organolmegaly, rebound, tenderness Rectal exam: PRESENT: deferred Extremities exam: PRESENT: full ROM. ABSENT: calf tenderness, clubbing, pedal edema Musculoskeletal exam: PRESENT: full ROM - posterior neck, tenderness Neurological exam: PRESENT: alert, awake, oriented to person, oriented to place , oriented to time, oriented to situation, CN II-XII grossly intact. ABSENT: motor sensory deficit Psychiatric exam: PRESENT: flat affect Skin exam: PRESENT: dry, intact, warm. ABSENT: cyanosis, rash Results Laboratory Results: 01/17/17 06:00 01/17/17 06:00 Impressions: Chest X-Ray 01/13/17 19:11 IMPRESSION: Suspect scar in the lingula. Heart enlarged without overt failure. Chest is felt to be relatively stable. Interventional Vascular Procedure 01/15/17 00:00 IMPRESSION: SUCCESSFUL PLACEMENT OF A 5 FR DUAL LUMEN 37 CM PICC IN THE right basilic VEIN. PICC Line Insertion 01/15/17 00:00 IMPRESSION: SUCCESSFUL PLACEMENT OF A 5 FR DUAL LUMEN 37 CM PICC IN THE right basilic VEIN. Transfer Plan - Disposition Transfer Plan: Return to [facility] - Time Spent with Patient Time spent with patient: Less than 30 Minutes Plan Discharge Plan: Return to [place]
[2017-01-21 08:50] LABS: ABSOLUTE EOSINOPHILS # (AUTO) 0.1 10^3/uL (0.0-0.6); ABSOLUTE LYMPHOCYTES (AUTO) 1.2 10^3/uL (0.5-4.7); ABSOLUTE MONOCYTES (AUTO) 0.8 10^3/uL (0.1-1.4); ABSOLUTE NEUT (AUTO) 9.7 10^3/uL (1.7-8.2); BASOPHILS % (AUTO) 0.1 % (0-2); EOSINOPHILS % (AUTO) 0.6 % (0-6); HEMATOCRIT 31.3 % (36.0-47.0); HEMOGLOBIN 10.4 g/dL (12.0-15.5); HGB HCT DIFFERENCE -0.1; LYMPHOCYTES % (AUTO) 10.3 % (13-45); MEAN CORPUSCULAR HEMOGLOBIN 29.3 pg (27.0-33.4); MEAN CORPUSCULAR HGB CONC 33.2 g/dL (32.0-36.0); MEAN CORPUSCULAR VOLUME 88 fl (80-97); MONOCYTES % (AUTO) 6.5 % (3-13); RED BLOOD COUNT 3.55 10^6/uL (3.72-5.28); RED CELL DISTRIBUTION WIDTH 15.5 % (11.5-14.0); SEGMENTED NEUTROPHILS % (AUTO) 82.5 % (42-78); WHITE BLOOD COUNT 11.8 10^3/uL (4.0-10.5)
[2017-01-21] MEDS ORDERED: TRAMADOL HCL 50 MG TABLET PO PRN (09:15)
[2017-01-21 09:18] LABS: ANION GAP 6 (5-19); BLOOD UREA NITROGEN 23 mg/dL (7-20); CALCIUM 8.8 mg/dL (8.4-10.2); CARBON DIOXIDE 33 mmol/L (22-30); CHLORIDE 102 mmol/L (98-107); CREATININE RESULT 0.77 mg/dL (0.52-1.25); GLUCOSE 65 mg/dL (75-110); POTASSIUM 3.5 mmol/L (3.6-5.0); SODIUM 141.3 mmol/L (137-145)
[2017-01-21] MEDS: BUDESONIDE NEB 0.5 MG/2 ML AMPUL NEB SCH (09:39)
[2017-01-21] MEDS: LEVALBUTEROL HCL NEB 1.25 MG/3 ML AMPUL NEB SCH ×2 (09:39→16:27)
[2017-01-21] MEDS: ACETYLCYSTEINE 20% SOLN 800 MG/4 ML VIAL.NEB NEB SCH (09:40)
[2017-01-21] MEDS ORDERED: BUSPIRONE HCL 10 MG TABLET PO SCH (10:00)
[2017-01-21] MEDS: ASPIRIN 81 MG TABLET, CHEWABLE PO SCH (11:25)
[2017-01-21] MEDS: METOPROLOL TARTRATE 25 MG TABLET PO SCH (11:25)
[2017-01-21] MEDS: NORMAL SALINE 10 ML SDV (SCHEDULED) IV SCH (11:25)
[2017-01-21] MEDS: FUROSEMIDE 40 MG TABLET PO SCH (11:26)
[2017-01-21] MEDS: PREDNISONE 20 MG TABLET PO SCH (11:26)
[2017-01-21] MEDS: GUAIFENESIN 600 MG TABLET.SA PO SCH (11:26)
[2017-01-21] MEDS: DULOXETINE HCL 30 MG CAPSULE.DR PO SCH (11:27)
[2017-01-21] MEDS: PREGABALIN 100 MG CAPSULE PO SCH (11:31)
[2017-01-21] MEDS: RANOLAZINE 500 MG TAB.SR.12H PO SCH (11:31)
[2017-01-21] MEDS: TIOTROPIUM BROMIDE DPI 5 CAP/KIT (18 MCG/CAP) IH SCH (11:32)
[2017-01-21] MEDS: LIDOCAINE 5% (700 MG) TRANSDERMAL ADH..PATCH TP SCH (11:32)
[2017-01-21] MEDS: FAMOTIDINE 20 MG TABLET PO SCH ×2 (11:32→17:34)
[2017-01-21] MEDS: FLUTICASONE NASAL SPRAY 50 MCG/SPRY 120 SPRAY/16 GM NASL SCH (11:33)
[2017-01-21] MEDS: DOCUSATE SODIUM 100 MG CAPSULE PO SCH ×2 (11:34→17:34)
[2017-01-21] MEDS: LACTULOSE SYRUP 20 GM/30 ML UDCUP PO SCH ×2 (11:34→17:34)
[2017-01-21] MEDS: POLYETHYLENE GLYCOL 3350 POWDER 17 GM/1 PACKET PO SCH (11:34)
[2017-01-21] MEDS: BUTALB/ACETAMINOPHEN/CAFFEINE 1 TAB EACH PO PRN (11:49)
[2017-01-21] MEDS: INSULIN DETEMIR 100 UNIT/ML 3 ML PEN SUBCUT SCH (11:50)
[2017-01-21] MEDS: INSULIN LISPRO 100 UNIT/ML 3 ML VIAL SUBCUT PRN (16:24)
[2017-01-21 17:07] VITALS: BP 140/73
== END 2017-01-21 17:42 | DRG 190 ==
LOC: ER 19:09 → UNDOADMIN 01-14 03:04 → EH 01-14 03:04 → 3W 01-14 08:20
PROVIDERS: ADMIT Family Medicine; ATTEND Family Medicine
PROC: 5A09457 Assistance with Respiratory Ventilation, 24-96 Consecutive Hours, Continuous Positive Airway Pressure (ICD-10-PCS; 2017-01-14)
PROC: 3E0F73Z Introduction of Anti-inflammatory into Respiratory Tract, Via Natural or Artificial Opening (ICD-10-PCS; 2017-01-14)
PROC: 02HV33Z Insertion of Infusion Device into Superior Vena Cava, Percutaneous Approach (ICD-10-PCS; principal; 2017-01-15)
PROC: B548ZZA Ultrasonography of Superior Vena Cava, Guidance (ICD-10-PCS; 2017-01-15)
PROC: B518ZZA Fluoroscopy of Superior Vena Cava, Guidance (ICD-10-PCS; 2017-01-15)
DX: J44.0 Chronic obstructive pulmonary disease with (acute) lower respiratory infection (principal); J96.22 Acute and chronic respiratory failure with hypercapnia; N39.0 Urinary tract infection, site not specified; I50.32 Chronic diastolic (congestive) heart failure; I13.0 Hypertensive heart and chronic kidney disease with heart failure and stage 1 through stage 4 chronic kidney disease, or unspecified chronic kidney disease; N17.9 Acute kidney failure, unspecified; R78.81 Bacteremia; E66.2 Morbid (severe) obesity with alveolar hypoventilation; Z68.41 Body mass index [BMI] 40.0-44.9, adult; J20.9 Acute bronchitis, unspecified; J44.1 Chronic obstructive pulmonary disease with (acute) exacerbation; Z66 Do not resuscitate; K59.03 Drug induced constipation; T40.2X5A Adverse effect of other opioids, initial encounter; I48.0 Paroxysmal atrial fibrillation; K21.9 Gastro-esophageal reflux disease without esophagitis; K44.9 Diaphragmatic hernia without obstruction or gangrene; M19.90 Unspecified osteoarthritis, unspecified site; F32.9 Major depressive disorder, single episode, unspecified; M10.9 Gout, unspecified; N18.3 Chronic kidney disease, stage 3 (moderate); B96.20 Unspecified Escherichia coli [E. coli] as the cause of diseases classified elsewhere; D63.1 Anemia in chronic kidney disease; G89.4 Chronic pain syndrome; F41.1 Generalized anxiety disorder; D50.8 Other iron deficiency anemias; E11.22 Type 2 diabetes mellitus with diabetic chronic kidney disease; I25.2 Old myocardial infarction; Z79.891 Long term (current) use of opiate analgesic; Z79.82 Long term (current) use of aspirin; Z79.4 Long term (current) use of insulin; Z79.899 Other long term (current) drug therapy; Z86.14 Personal history of Methicillin resistant Staphylococcus aureus infection; Z86.711 Personal history of pulmonary embolism; Z90.49 Acquired absence of other specified parts of digestive tract; Z90.710 Acquired absence of both cervix and uterus; Z74.01 Bed confinement status; Z87.891 Personal history of nicotine dependence; Z88.8 Allergy status to other drugs, medicaments and biological substances; Z88.2 Allergy status to sulfonamides; Z82.61 Family history of arthritis; Z82.3 Family history of stroke; Z83.3 Family history of diabetes mellitus; Z82.49 Family history of ischemic heart disease and other diseases of the circulatory system
CPT/HCPCS: 36415; 36569; 71010; 76937; 80048; 80053; 81001; 82803; 82962; 83605; 83735; 85025; 87040; 87077; 93005; 93010; 94640; 94660; 94799; 96365; 96368; 96375; 99285; J0692; J1642; J1815; J1940; J2543; J2930; J3370; J3475; J3490; J7030; J7060; J7512; J7614; J7620; J7685

== ENCOUNTER 2017-02-01 08:49 | Emergency (ER) | payer MEDICARE, MEDICAID ==
[2017-02-01 09:27] LABS: VENOUS BLOOD BASE EXCESS 1.8 mmol/L; VENOUS BLOOD HCO3 28.1 mmol/L (20-32); VENOUS BLOOD PCO2 51.5 mmHg (35-63); VENOUS BLOOD PH 7.35 (7.30-7.42)
[2017-02-01 09:31] LABS: ABSOLUTE BASOPHILS # (AUTO) 0.1 10^3/uL (0.0-0.2); ABSOLUTE EOSINOPHILS # (AUTO) 0.1 10^3/uL (0.0-0.6); ABSOLUTE LYMPHOCYTES (AUTO) 1.3 10^3/uL (0.5-4.7); ABSOLUTE MONOCYTES (AUTO) 0.9 10^3/uL (0.1-1.4); ABSOLUTE NEUT (AUTO) 6.6 10^3/uL (1.7-8.2); BASOPHILS % (AUTO) 0.6 % (0-2); EOSINOPHILS % (AUTO) 1.1 % (0-6); HEMATOCRIT 32.7 % (36.0-47.0); HEMOGLOBIN 10.9 g/dL (12.0-15.5); LYMPHOCYTES % (AUTO) 14.8 % (13-45); MEAN CORPUSCULAR HEMOGLOBIN 29.4 pg (27.0-33.4); MEAN CORPUSCULAR HGB CONC 33.4 g/dL (32.0-36.0); MEAN CORPUSCULAR VOLUME 88 fl (80-97); MONOCYTES % (AUTO) 10.3 % (3-13); RED BLOOD COUNT 3.71 10^6/uL (3.72-5.28); RED CELL DISTRIBUTION WIDTH 16.3 % (11.5-14.0); SEGMENTED NEUTROPHILS % (AUTO) 73.2 % (42-78)
[2017-02-01 09:41] LABS: ALANINE AMINOTRANSFERASE 29 U/L (9-52); ALBUMIN 3.3 g/dL (3.5-5.0); ALKALINE PHOSPHATASE 106 U/L (38-126); ANION GAP 11 (5-19); ASPARTATE AMINO TRANSFERASE 18 U/L (14-36); BILIRUBIN,DIRECT 0.4 mg/dL (0.0-0.4); BILIRUBIN,TOTAL 0.6 mg/dL (0.2-1.3); BLOOD UREA NITROGEN 9 mg/dL (7-20); CALCIUM 9.2 mg/dL (8.4-10.2); CARBON DIOXIDE 27 mmol/L (22-30); CHLORIDE 101 mmol/L (98-107); CREATINE KINASE 27 U/L (30-135); CREATININE RESULT 0.98 mg/dL (0.52-1.25); GLUCOSE 232 mg/dL (75-110); LIPASE 15.6 U/L (23-300); MAGNESIUM 1.8 mg/dL (1.6-2.3); POTASSIUM 3.5 mmol/L (3.6-5.0); SODIUM 138.9 mmol/L (137-145); TOTAL PROTEIN 6.1 g/dL (6.3-8.2)
[2017-02-01 09:53] LABS: CREATINE KINASE MB 0.99 ng/mL (<4.55)
[2017-02-01 09:57] LABS: TROPONIN I 0.051 ng/mL
--- NOTE | 2017-02-01 10:18 | RADIOLOGY REPORT (SQ) ---
EXAM DESCRIPTION: CHEST SINGLE VIEW COMPLETED DATE/TIME: 02/01/2017 9:33 am REASON FOR STUDY: sob COMPARISON: 01/15/2017 EXAM PARAMETERS: NUMBER OF VIEWS: One view. TECHNIQUE: Single frontal radiographic view of the chest acquired. RADIATION DOSE: NA LIMITATIONS: None. FINDINGS: LUNGS AND PLEURA: Relatively low lung volumes. No acute infiltrates or effusions. MEDIASTINUM AND HILAR STRUCTURES: No masses. Contour normal. HEART AND VASCULAR STRUCTURES: Cardiomegaly without maddy CHF. BONES: No acute findings. HARDWARE: None in the chest. OTHER: No other significant finding. IMPRESSION: Cardiomegaly without CHF. TECHNICAL DOCUMENTATION: JOB ID: [id number]
[2017-02-01] MEDS ORDERED: MAGNESIUM SULFATE/D5W 100 ML IV ONE (11:26)
[2017-02-01] MEDS ORDERED: IPRATROPIUM/ALBUTEROL 0.5-2.5 MG/3 ML AMPUL NEB ONE (11:26)
--- NOTE | 2017-02-01 13:02 | EKG REPORT ---
SEVERITY:- ABNORMAL ECG - SINUS RHYTHM SUPRAVENTRICULAR BIGEMINY LEFT ANTERIOR FASCICULAR BLOCK LVH WITH SECONDARY REPOLARIZATION ABNORMALITY : Confirmed by: Inocencio Aguilar MD 01-Feb-2017 13:01:50
--- NOTE | 2017-02-01 14:14 | ER Document Report ---
ED General - General Chief Complaint: Shortness Of Breath Stated Complaint: SHORTNESS OF BREATH Time Seen by Provider: 02/01/17 09:21 TRAVEL OUTSIDE OF THE [place] IN LAST 30 DAYS: No - HPI Patient complains to provider of: Shortness of breath Notes: Patient coming in from snf center for evaluation shortness of breath. Patient has a history of multi resistant bacterial infections with multiple hospitalizations no fevers documented patient had outpatient chest x-ray performed showing probably hilar markings. Upon my evaluation patient is on her home O2 dose no signs of tachypnea or hypoxia patient states shortness of breath starting last 24 hours per - Related Data Allergies/Adverse Reactions: Sulfa (Sulfonamide Antibiotics) Allergy (Intermediate, Verified 02/01/17 09:00) adhesive tape Allergy (Verified 02/01/17 09:00) atorvastatin calcium [From Lipitor] Allergy (Verified 02/01/17 09:00) celecoxib [From Celebrex] Allergy (Verified 02/01/17 09:00) Home Medications: Current Home Medications Buspirone HCl [Buspar 10 mg Tablet] 5 mg PO Q12 02/01/17 [History] Past Medical History - Social History Smoking Status: Former Smoker Frequency of alcohol use: None Drug Abuse: None Family History: Arthritis, CAD, CVA, DM, Hypertension - Past Medical History Cardiac Medical History: Reports: Hx Atrial Fibrillation, Hx Congestive Heart Failure - Diastolic dysfunction, Hx Heart Attack, Hx Hypertension - essential, Hx Pulmonary Embolism, Hx Heart Murmur Denies: Hx Coronary Artery Disease, Hx DVT, Hx Hypercholesterolemia, Hx Peripheral Vascular Disease Pulmonary Medical History: Reports: Hx Asthma, Hx Bronchitis, Hx COPD, Hx Pneumonia - Recurrent MRSA pneumonia., Hx Sleep Apnea - Uses C Pap Denies: Hx Tuberculosis Neurological Medical History: Denies: Hx Seizures Endocrine Medical History: Reports: Hx Diabetes Mellitus Type 2. Denies: Hx Diabetes Mellitus Type 1, Hx Hyperthyroidism, Hx Hypothyroidism Renal/ Medical History: Reports: Hx Renal Insufficiency. Denies: Hx Peritoneal Dialysis GI Medical History: Reports: Hx Gastroesophageal Reflux Disease, Hx Hiatal Hernia. Denies: Hx Cirrhosis, Hx Hepatitis Musculoskeltal Medical History: Reports Hx Arthritis, Reports Hx Fibromyalgia, Reports Hx Gout, Reports Hx Muscle Weakness Skin Medical History: Denies Hx Eczema, Denies Hx Psoriasis Psychiatric Medical History: Reports: Hx Anxiety, Hx Depression Infectious Medical History: Reports: Hx MRSA. Denies: Hx Hepatitis Past Surgical History: Reports: Hx Appendectomy, Hx Cholecystectomy, Hx Hysterectomy, Hx Orthopedic Surgery - Multiple left hip procedures, 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 - Immunizations Hx Diphtheria, Pertussis, Tetanus Vaccination: Yes Hx Pneumococcal Vaccination: 05/20/13 Review of Systems - Review of Systems Constitutional: No symptoms reported EENT: No symptoms reported Cardiovascular: No symptoms reported Respiratory: Short of breath Gastrointestinal: No symptoms reported Genitourinary: No symptoms reported Female Genitourinary: No symptoms reported Musculoskeletal: No symptoms reported Skin: No symptoms reported Hematologic/Lymphatic: No symptoms reported Neurological/Psychological: No symptoms reported Physical Exam - Vital signs Vitals: Resp BP Pulse Ox 18 123/74 95 02/01/17 08:55 02/01/17 08:55 02/01/17 08:55 Interpretation: Normal - General General appearance: Appears well, Alert - HEENT Head: Normocephalic, Atraumatic Eyes: Normal Pupils: PERRL - Respiratory Respiratory status: No respiratory distress Chest status: Nontender Breath sounds: Wheezing Chest palpation: Normal - Cardiovascular Rhythm: Regular Heart sounds: Normal auscultation Murmur: No - Abdominal Inspection: Normal Distension: No distension Bowel sounds: Normal Tenderness: Nontender Organomegaly: No organomegaly - Back Back: Normal, Nontender - Extremities General upper extremity: Normal inspection, Nontender, Normal color, Normal ROM , Normal temperature General lower extremity: Normal inspection, Nontender, Edema, Normal color, Normal ROM, Normal temperature - Neurological Neuro grossly intact: Yes Cognition: Normal Orientation: AAOx4 Udy Coma Scale Eye Opening: Spontaneous Abercrombie Coma Scale Verbal: Oriented Abercrombie Coma Scale Motor: Obeys Commands Duy Coma Scale Total: 15 Speech: Normal Motor strength normal: LUE, RUE, LLE, RLE Sensory: Normal - Psychological Associated symptoms: Normal affect, Normal mood - Skin Skin Temperature: Warm Skin Moisture: Dry Skin Color: Normal Course - Re-evaluation Re-evalutation: 02/01/17 15:37 Lab work does not show any significant pathology. Troponins negative 2. Chest x-ray negative for infection. Patient was seen resting on home O2 with no signs of hypoxia no tachypnea. Wheezing improved after one single breathing treatment. Patient will be discharged back to snf follow-up with primary care physician. - Vital Signs Vital signs: Temp Pulse Resp BP Pulse Ox 98.8 F 94 22 H 118/77 98 02/01/17 15:16 02/01/17 08:59 02/01/17 15:16 02/01/17 15:16 02/01/17 15:16 - Laboratory Result Diagrams: 02/01/17 09:00 02/01/17 09:00 Laboratory results interpreted by me: 02/01/17 02/01/17 09:00 09:00 RBC 3.71 L Hgb 10.9 L Hct 32.7 L RDW 16.3 H Potassium 3.5 L Est GFR (Non-Af Amer) 56 L Glucose 232 H Creatine Kinase 27 L Total Protein 6.1 L Albumin 3.3 L Lipase 15.6 L Discharge - Discharge Clinical Impression: Do not resuscitate COPD (chronic obstructive pulmonary disease) Qualifiers: COPD type: unspecified COPD Qualified Code(s): J44.9 - Chronic obstructive pulmonary disease, unspecified Condition: Fair Disposition: HOME, SELF-CARE Instructions: Chronic Obstructive Lung Disease ([facility]) Additional Instructions: Patient has been observed here in the ER for greater than 4 hours. Patient upon arrival was given 1 single breathing treatment patient remained on her nasal cannula without any signs of hypoxia patient sleeping without any signs of hypoxia chest x-ray laboratory studies not show any signs of sepsis or impending severe infection. Recommend patient continue on her regular medications albuterol treatments at least every 4 hours for the next 5 days follow-up PCP in the next 24-48 hours Referrals: MUSA HODGSON MD [Primary Care Provider] -
[2017-02-01 15:19] VITALS: BP 118/77
== END 2017-02-01 15:43 | disposition home or self-care (01) ==
LOC: ER 08:49
DX: J44.9 Chronic obstructive pulmonary disease, unspecified (principal); Z99.81 Dependence on supplemental oxygen; I25.2 Old myocardial infarction; I10 Essential (primary) hypertension; Z66 Do not resuscitate; Z88.2 Allergy status to sulfonamides; Z91.048 Other nonmedicinal substance allergy status; Z88.6 Allergy status to analgesic agent; Z88.8 Allergy status to other drugs, medicaments and biological substances; Z87.891 Personal history of nicotine dependence; Z86.711 Personal history of pulmonary embolism; Z87.01 Personal history of pneumonia (recurrent); Z86.14 Personal history of Methicillin resistant Staphylococcus aureus infection
CPT/HCPCS: 93005; 94640; 99285; 96365; 36415; 82553; 82550; 83690; 83735; 85025; 80053; 84484; 82803; 71010; 93010; J3475; A9270; J7620

== ENCOUNTER 2017-02-04 02:16 | Emergency (ER) | payer MEDICARE, MEDICAID ==
[2017-02-04] MEDS ORDERED: IPRATROPIUM/ALBUTEROL 0.5-2.5 MG/3 ML AMPUL NEB ONE (02:31)
[2017-02-04] MEDS: MAGNESIUM SULFATE/D5W 100 ML IV SCH ×2 (02:50→03:50)
--- NOTE | 2017-02-04 03:33 | RADIOLOGY REPORT (SQ) ---
EXAM DESCRIPTION: CHEST SINGLE VIEW COMPLETED DATE/TIME: 02/04/2017 3:11 am REASON FOR STUDY: dyspnea COMPARISON: 8.4.17. 01/13/2017. EXAM PARAMETERS: NUMBER OF VIEWS: One view. TECHNIQUE: Single frontal radiographic view of the chest acquired. RADIATION DOSE: NA LIMITATIONS: None. FINDINGS: LUNGS AND PLEURA: Mild interstitial markings. Small atelectasis or scar of the peripheral and left mid lung field. MEDIASTINUM AND HILAR STRUCTURES: Mild bi hilar fullness. HEART AND VASCULAR STRUCTURES: Mild enlargement of the cardiac silhouette. BONES: No acute findings. Partial resection of the proximal right humerus. HARDWARE: None in the chest. OTHER: No other significant finding. IMPRESSION: No acute findings. TECHNICAL DOCUMENTATION: JOB ID: [id number]
[2017-02-04 03:37] LABS: ABSOLUTE BASOPHILS # (AUTO) 0.1 10^3/uL (0.0-0.2); ABSOLUTE EOSINOPHILS # (AUTO) 0.2 10^3/uL (0.0-0.6); ABSOLUTE LYMPHOCYTES (AUTO) 2.1 10^3/uL (0.5-4.7); ABSOLUTE NEUT (AUTO) 6.6 10^3/uL (1.7-8.2); BASOPHILS % (AUTO) 0.5 % (0-2); EOSINOPHILS % (AUTO) 1.6 % (0-6); HEMOGLOBIN 10.9 g/dL (12.0-15.5); HGB HCT DIFFERENCE -0.3; LYMPHOCYTES % (AUTO) 21.5 % (13-45); MEAN CORPUSCULAR VOLUME 88 fl (80-97); MONOCYTES % (AUTO) 10.4 % (3-13); RED BLOOD COUNT 3.75 10^6/uL (3.72-5.28); RED CELL DISTRIBUTION WIDTH 16.2 % (11.5-14.0); WHITE BLOOD COUNT 9.9 10^3/uL (4.0-10.5)
[2017-02-04 03:39] LABS: ALANINE AMINOTRANSFERASE 32 U/L (9-52); ALBUMIN 3.4 g/dL (3.5-5.0); ALKALINE PHOSPHATASE 116 U/L (38-126); ANION GAP 10 (5-19); ASPARTATE AMINO TRANSFERASE 20 U/L (14-36); BILIRUBIN,DIRECT 0.5 mg/dL (0.0-0.4); BILIRUBIN,TOTAL 0.6 mg/dL (0.2-1.3); BLOOD UREA NITROGEN 9 mg/dL (7-20); CALCIUM 9.2 mg/dL (8.4-10.2); CARBON DIOXIDE 26 mmol/L (22-30); CHLORIDE 104 mmol/L (98-107); CREATININE RESULT 1.13 mg/dL (0.52-1.25); GLUCOSE 165 mg/dL (75-110); POTASSIUM 4.4 mmol/L (3.6-5.0); SODIUM 139.8 mmol/L (137-145); TOTAL PROTEIN 6.5 g/dL (6.3-8.2)
[2017-02-04] MEDS ORDERED: ALBUTEROL SULFATE 0.083% NEB 2.5 MG/3 ML AMPUL NEB ONE (04:49)
--- NOTE | 2017-02-04 05:07 | ER Document Report ---
ED General - General Chief Complaint: Breathing Difficulty Stated Complaint: DIFFICULTY BREATHING Time Seen by Provider: 02/04/17 02:19 Notes: Patient is a 71-year-old female presents with complaint of difficulty breathing. She has a history of COPD. 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 Patient says for the last week she has felt unwell. She was seen here 4 days ago and received breathing treatments and was discharged home. She says tonight she started feeling short of breath again and therefore was brought to the ER. She received one breathing treatment [facility] the [facility] which did not help. She denies any fevers. No vomiting. No diarrhea. T-max at the [facility] was just over 99 . She was admitted to the hospital back in December and at that time infectious disease at [facility] was consulted and they recommend not starting the patient antibiotics and that she had a fever, or obvious infiltrate on chest x-ray. Patient is on inhaled tobramycin daily. Patient also mentions that she had a urinalysis sent off from the [facility] approximately a week ago but was never told the results by her doctor at the [facility]. TRAVEL OUTSIDE OF THE [place] IN LAST 30 DAYS: No - Related Data Allergies/Adverse Reactions: Sulfa (Sulfonamide Antibiotics) Allergy (Intermediate, Verified 02/01/17 09:00) adhesive tape Allergy (Verified 02/01/17 09:00) atorvastatin calcium [From Lipitor] Allergy (Verified 02/01/17 09:00) celecoxib [From Celebrex] Allergy (Verified 02/01/17 09:00) Past Medical History - Social History Smoking Status: Former Smoker Frequency of alcohol use: None Drug Abuse: None Family History: Arthritis, CAD, CVA, DM, Hypertension - Past Medical History Cardiac Medical History: Reports: Hx Atrial Fibrillation, Hx Congestive Heart Failure - Diastolic dysfunction, Hx Heart Attack, Hx Hypertension - essential, Hx Pulmonary Embolism, Hx Heart Murmur Denies: Hx Coronary Artery Disease, Hx DVT, Hx Hypercholesterolemia, Hx Peripheral Vascular Disease Pulmonary Medical History: Reports: Hx Asthma, Hx Bronchitis, Hx COPD, Hx Pneumonia - Recurrent MRSA pneumonia., Hx Sleep Apnea - Uses C Pap Denies: Hx Tuberculosis Neurological Medical History: Denies: Hx Seizures Endocrine Medical History: Reports: Hx Diabetes Mellitus Type 2. Denies: Hx Diabetes Mellitus Type 1, Hx Hyperthyroidism, Hx Hypothyroidism Renal/ Medical History: Reports: Hx Renal Insufficiency. Denies: Hx Peritoneal Dialysis GI Medical History: Reports: Hx Gastroesophageal Reflux Disease, Hx Hiatal Hernia. Denies: Hx Cirrhosis, Hx Hepatitis Musculoskeltal Medical History: Reports Hx Arthritis, Reports Hx Fibromyalgia, Reports Hx Gout, Reports Hx Muscle Weakness Skin Medical History: Denies Hx Eczema, Denies Hx Psoriasis Psychiatric Medical History: Reports: Hx Anxiety, Hx Depression Infectious Medical History: Reports: Hx MRSA. Denies: Hx Hepatitis Past Surgical History: Reports: Hx Appendectomy, Hx Cholecystectomy, Hx Hysterectomy, Hx Orthopedic Surgery - Multiple left hip procedures, 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 - Immunizations Hx Diphtheria, Pertussis, Tetanus Vaccination: Yes Hx Pneumococcal Vaccination: 05/20/13 Review of Systems - Review of Systems Notes: My Normal Review Basic REVIEW OF SYSTEMS: CONSTITUTIONAL : Denies fever, chills, or sweats. Has felt weak. EENT: Denies eye, ear, throat, or mouth pain or symptoms. Denies nasal or sinus congestion. CARDIOVASCULAR: Denies chest pain. RESPIRATORY: Wheezing and difficulty breathing. GASTROINTESTINAL: Denies abdominal pain. Denies nausea, vomiting, or diarrhea. GENITOURINARY: Denies difficulty urinating, painful urination, burning, frequency, or blood in urine. MUSCULOSKELETAL: Denies neck or back pain or joint pain or swelling. SKIN: Denies rash or skin lesions. NEUROLOGICAL: Denies altered mental status or loss of consciousness. Denies headache. Denies weakness or paralysis or loss of use of either side. Denies problems with gait or speech. Denies sensory or motor loss. ALL OTHER SYSTEMS REVIEWED AND NEGATIVE. Physical Exam - Vital signs Vitals: Pulse Ox 100 02/04/17 02:24 - Notes Notes: General Appearance: Well nourished, alert, cooperative, mild acute distress, no obvious discomfort. Vitals: reviewed, See vital signs table. Head: no swelling or tenderness to the head Eyes: PERRL, EOMI, Conjuctiva clear Mouth: No decreasd moisture Neck: Supple, no neck tenderness, No thyromegaly Lungs: Scattered wheezing. Mild tachypnea. Heart: Normal rate, Regular rythm, No murmur, no rub Abdomen: Normal BS, soft, No rigidity, No abdominal tenderness, No guarding, no rebound, no abdominal masses, no organomegaly Extremities: strength 5/5 in all extremities, good pulses in all extremities, no swelling or tenderness in the extremities, no edema. Skin: warm, dry, appropriate color, no rash Neuro: speech clear, oriented x 3, normal affect, responds appropriately to questions. Course - Re-evaluation Re-evalutation: 02/04/17 05:55 Patient's respiratory status is much improved. Her lung mead are clear. She is not tachypneic. Her oxygenation is normal on 1-1/2 L via nasal cannula. She [facility] 2[facility]/2 at the [facility]. She had a concern that she has been weak for last several days. A little back and see were Dr. Hodgson did order a urinalysis which is performed on January 29. It was positive. It does not appear the patient was placed on any antibiotics for this. There is no culture sent. I therefore sent a cath urine specimen which was positive. Due to her history of ESBL we will start her on nitrofurantoin. I sent her urine for culture. If it grows anything positive that is not appropriate with the current treatment and she will be called back to the ER for further treatment. I encouraged her return to ER immediately if she has difficulty breathing, fevers, or feels that she is worsening. Patient agrees with plan will be discharged home. Dictation of this chart was performed using voice recognition software; therefore, there may be some unintended grammatical errors. - Vital Signs Vital signs: Temp Pulse Resp BP Pulse Ox 88 22 H 140/74 H 96 02/04/17 02:30 02/04/17 05:02 02/04/17 05:02 02/04/17 05:02 - Laboratory Result Diagrams: 02/04/17 03:13 02/04/17 03:13 Laboratory results interpreted by me: 02/04/17 02/04/17 02/04/17 03:13 03:13 05:05 Hgb 10.9 L Hct 33.0 L RDW 16.2 H Est GFR ( Amer) 57 L Est GFR (Non-Af Amer) 47 L Glucose 165 H Direct Bilirubin 0.5 H Albumin 3.4 L Urine Protein 30 H Urine Nitrite POSITIVE H Ur Leukocyte Esterase LARGE H Discharge - Discharge Clinical Impression: Bronchitis UTI (urinary tract infection) Qualifiers: Urinary tract infection type: site unspecified Hematuria presence: without hematuria Qualified Code(s): N39.0 - Urinary tract infection, site not specified Condition: Good Disposition: HOME, SELF-CARE Additional Instructions: You do have some exacerbation of your COPD. This improved after receiving magnesium and breathing treatments. You do not have a pneumonia on chest xray. Your white count and temp are normal. You were concerned that you have been feeling weak over the last week. I saw where you had a positive UA 1 week ago. I repeated your UA via a cath specimen which was positive for infection. I will start you on Macrobid due to your history of ESBL. We will send your urine for culture. If your urine is positive for a bacteria not responding to the antibiotic than you will be called and notified to return so we can change your treatment. Please return to the ER immediately if you develop fevers, worsening difficulty breathing, or feel that you are worsening. Please get reevaluated by Dr. Hodgson in 1-2 days. Prescriptions: Nitrofurantoin Monohyd/M-Cryst [Macrobid 100 mg Capsule] 100 mg PO BID #14 capsule Referrals: MUSA HODGSON MD [Primary Care Provider] - Follow up tomorrow
[2017-02-04 05:40] LABS: APPEARANCE,URINE CLOUDY; BILIRUBIN,URINE NEGATIVE (NEGATIVE); GLUCOSE, URINE NEGATIVE (NEGATIVE); KETONES,URINE NEGATIVE (NEGATIVE); LEUKOCYTE ESTERASE,URINE LARGE (NEGATIVE); NITRITE,URINE POSITIVE (NEGATIVE); PROTEIN,URINE 30 mg/dL (NEGATIVE); URINE SPECIFIC GRAVITY 1.019; UROBILINOGEN,URINE NEGATIVE mg/dL (<2.0)
[2017-02-04] MEDS ORDERED: NITROFURANTOIN MONOHYD/M-CRYST 100 MG CAPSULE PO ONE (05:43)
[2017-02-04 08:01] VITALS: BP 151/79
--- NOTE | 2017-02-04 17:52 | EKG REPORT ---
SEVERITY:- ABNORMAL ECG - PEDIATRIC ECG INTERPRETATION SINUS RHYTHM ATRIAL PREMATURE COMPLEX NONSPECIFIC INTRAVENTRICULAR CONDUCTION DELAY BORDERLINE PROLONGED QT INTERVAL : Confirmed by: Jung Olvera 04-Feb-2017 17:51:12
== END 2017-02-04 08:01 | disposition home or self-care (01) ==
LOC: ER 02:16
DX: J40 Bronchitis, not specified as acute or chronic (principal); N39.0 Urinary tract infection, site not specified; R06.02 Shortness of breath; J44.9 Chronic obstructive pulmonary disease, unspecified; R50.9 Fever, unspecified; Z79.899 Other long term (current) drug therapy; Z87.891 Personal history of nicotine dependence
CPT/HCPCS: 94640 ×2; 99285; 51701; 96365; 96366; 36415; 87086; 85025; 87088; 80053; 81001; 87186; 71010; 93005; 93010; J3475; A9270 ×3; J7620; J8499

== ENCOUNTER 2017-02-22 15:06 | Emergency (ER) | payer MEDICARE, MEDICAID ==
[2017-02-22] MEDS ORDERED: GENTAMICIN SULFATE INJ 80 MG/2 ML VIAL IV ONE ×2 (15:10→15:45)
[2017-02-22] MEDS ORDERED: ERTAPENEM SODIUM INJ 1 GM VIAL IV ONE (15:10)
--- NOTE | 2017-02-22 15:22 | ER Document Report ---
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 IN LAST 30 DAYS: No - HPI Onset: Other Onset/Duration: Persistent, Worse Quality of pain: No pain Severity: Moderate Pain Level: Denies Associated symptoms: Productive cough, Shortness of breath Exacerbated by: Denies Relieved by: Denies Similar symptoms previously: Yes Recently seen / treated by doctor: Yes - Related Data Allergies/Adverse Reactions: Sulfa (Sulfonamide Antibiotics) Allergy (Intermediate, Verified 02/01/17 09:00) adhesive tape Allergy (Verified 02/01/17 09:00) atorvastatin calcium [From Lipitor] Allergy (Verified 02/01/17 09:00) celecoxib [From Celebrex] Allergy (Verified 02/01/17 09:00) Past Medical History - Social History Smoking Status: Never Smoker Cigarette use (# per day): No Chew tobacco use (# tins/day): No Smoking Education Provided: No Family History: Arthritis, CAD, CVA, DM, Hypertension - Past Medical History Cardiac Medical History: Reports: Hx Atrial Fibrillation, Hx Congestive Heart Failure - Diastolic dysfunction, Hx Heart Attack, Hx Hypertension - essential, Hx Pulmonary Embolism, Hx Heart Murmur Denies: Hx Coronary Artery Disease, Hx DVT, Hx Hypercholesterolemia, Hx Peripheral Vascular Disease Pulmonary Medical History: Reports: Hx Asthma, Hx Bronchitis, Hx COPD, Hx Pneumonia - Recurrent MRSA pneumonia., Hx Sleep Apnea - Uses C Pap Denies: Hx Tuberculosis Neurological Medical History: Denies: Hx Seizures Endocrine Medical History: Reports: Hx Diabetes Mellitus Type 2. Denies: Hx Diabetes Mellitus Type 1, Hx Hyperthyroidism, Hx Hypothyroidism Renal/ Medical History: Reports: Hx Renal Insufficiency. Denies: Hx Peritoneal Dialysis GI Medical History: Reports: Hx Gastroesophageal Reflux Disease, Hx Hiatal Hernia. Denies: Hx Cirrhosis, Hx Hepatitis Musculoskeltal Medical History: Reports Hx Arthritis, Reports Hx Fibromyalgia, Reports Hx Gout, Reports Hx Muscle Weakness Skin Medical History: Denies Hx Eczema, Denies Hx Psoriasis Psychiatric Medical History: Reports: Hx Anxiety, Hx Depression Infectious Medical History: Reports: Hx MRSA. Denies: Hx Hepatitis Past Surgical History: Reports: Hx Appendectomy, Hx Cholecystectomy, Hx Hysterectomy, Hx Orthopedic Surgery - Multiple left hip procedures, 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 - Immunizations Hx Diphtheria, Pertussis, Tetanus Vaccination: Yes Hx Pneumococcal Vaccination: 05/20/13 Review of Systems - Review of Systems Notes: REVIEW OF SYSTEMS: CONSTITUTIONAL : Denies fever, chills, or sweats. Denies recent illness. EENT: Denies eye, ear, throat, or mouth pain or symptoms. Denies nasal or sinus congestion or discharge. Denies throat, tongue, or mouth swelling or difficulty swallowing. CARDIOVASCULAR: Denies chest pain. Denies palpitations or racing or irregular heart beat. Denies ankle edema. RESPIRATORY: Admits to shortness of breath difficulty breathing GASTROINTESTINAL: Denies abdominal pain or distention. Denies nausea, vomiting , or diarrhea. Denies blood in vomitus, stools, or per rectum. Denies black, tarry stools. Denies constipation. GENITOURINARY: Denies difficulty urinating, painful urination, burning, frequency, blood in urine, or discharge. FEMALE GENITOURINARY: Denies vaginal bleeding, heavy or abnormal periods, irregular periods. Denies vaginal discharge or odor. MUSCULOSKELETAL: Denies back or neck pain or stiffness. Denies joint pain or swelling. SKIN: Denies rash, lesions or sores. HEMATOLOGIC : Denies easy bruising or bleeding. LYMPHATIC: Denies swollen, enlarged glands. NEUROLOGICAL: Denies confusion or altered mental status. Denies passing out or loss of consciousness. Denies dizziness or lightheadedness. Denies headache. Denies weakness or paralysis or loss of use of either side. Denies problems with gait or speech. Denies sensory loss, numbness, or tingling. Denies seizures. PSYCHIATRIC: Denies anxiety or stress. Denies depression, suicidal ideation, or homicidal ideation. ALL OTHER SYSTEMS REVIEWED AND NEGATIVE. PHYSICAL EXAMINATION: GENERAL: Well-appearing, well-nourished and in no acute distress. HEAD: Atraumatic, normocephalic. EYES: Pupils equal round and reactive to light, extraocular movements intact, conjunctiva are normal. ENT: Nares patent, oropharynx clear without exudates. Moist mucous membranes. NECK: Normal range of motion, supple without lymphadenopathy LUNGS: Coarse rhonchi at the bases HEART: Regular rate and rhythm without murmurs ABDOMEN: Soft, nontender, nondistended abdomen. No guarding, no rebound. No masses appreciated. Female : deferred Musculoskeletal: Normal range of motion, no pitting or edema. No cyanosis. NEUROLOGICAL: Cranial nerves grossly intact. Normal speech, normal gait. Normal sensory, motor exams PSYCH: Normal mood, normal affect. SKIN: Warm, Dry, normal turgor, no rashes or lesions noted. Dictation was performed using [employer] voice recognition software Physical Exam - Vital signs Vitals: Resp Pulse Ox 19 100 02/22/17 15:20 02/22/17 15:20 Course - Re-evaluation Re-evalutation: 02/22/17 15:25 Sputum culture results are noted in the computer system, it appears the CRE is sensitive to gentamicin, another culture which has a growth is noted to be sensitive to meropenem I will start both antibiotics at this time 02/22/17 15:[address] Ramírez she requests I do not start antibiotics given the patient is just colonized with CRE. Lab work imaging pending 02/22/17 18:[address] Mendoza, he requests duo neb and dc home 02/22/17 19:11 I will discharge home at this time Patient's vital signs are stable, she has no white count elevation, she does not have any pneumonia noted on x-ray We believe patient is colonized with this infectious process After performing a Medical Screening Examination, I estimate there is LOW risk for ACUTE CORONARY SYNDROME, RESPIRATORY FAILURE, SEPSIS OR MENINGITIS, thus I consider the discharge disposition reasonable. I have reevaluated this patient multiple times and no significant life threatening changes are noted. The patient and I have discussed the diagnosis and risks, and we agree with discharging home with close follow-up. We also discussed returning to the Emergency Department immediately if new or worsening symptoms occur. We have discussed the symptoms which are most concerning (e.g., changing or worsening pain, trouble swallowing or breathing, neck stiffness, fever) that necessitate immediate return. - Vital Signs Vital signs: Temp Pulse Resp BP Pulse Ox 25 H 135/70 H 99 02/22/17 17:01 02/22/17 17:01 02/22/17 17:01 - Laboratory Result Diagrams: 02/22/17 15:30 02/22/17 15:30 Laboratory results interpreted by me: 02/22/17 02/22/17 02/22/17 15:30 15:30 15:30 RBC 3.57 L Hgb 10.3 L Hct 31.1 L RDW 16.1 H Seg Neutrophils % 89.3 H Lymphocytes % 6.8 L Absolute Neutrophils 8.5 H BUN 27 H Creatinine 1.79 H Est GFR ( Amer) 34 L Est GFR (Non-Af Amer) 28 L Glucose 235 H Lactic Acid 2.3 H Direct Bilirubin 0.5 H - Diagnostic Test Radiology reviewed: Image reviewed, Reports reviewed Discharge - Discharge Clinical Impression: COPD exacerbation Condition: Stable Disposition: HOME, SELF-CARE Instructions: Chronic Obstructive Lung Disease ([facility]) Referrals: MUSA HODGSON MD [Primary Care Provider] - Follow up tomorrow
[2017-02-22 15:50] LABS: ABSOLUTE LYMPHOCYTES (AUTO) 0.7 10^3/uL (0.5-4.7); ABSOLUTE MONOCYTES (AUTO) 0.4 10^3/uL (0.1-1.4); ABSOLUTE NEUT (AUTO) 8.5 10^3/uL (1.7-8.2); BASOPHILS % (AUTO) 0.2 % (0-2); HEMATOCRIT 31.1 % (36.0-47.0); HEMOGLOBIN 10.3 g/dL (12.0-15.5); HGB HCT DIFFERENCE -0.2; LYMPHOCYTES % (AUTO) 6.8 % (13-45); MEAN CORPUSCULAR HEMOGLOBIN 28.7 pg (27.0-33.4); MEAN CORPUSCULAR VOLUME 87 fl (80-97); MONOCYTES % (AUTO) 3.7 % (3-13); RED BLOOD COUNT 3.57 10^6/uL (3.72-5.28); RED CELL DISTRIBUTION WIDTH 16.1 % (11.5-14.0); SEGMENTED NEUTROPHILS % (AUTO) 89.3 % (42-78); WHITE BLOOD COUNT 9.5 10^3/uL (4.0-10.5)
[2017-02-22] MEDS ORDERED: GENTAMICIN SULFATE 0.3% OPH SOLN 5 ML OD ONE (15:51)
[2017-02-22 15:56] LABS: PROTHROMBIN TIME 13.3 SEC (11.4-15.4)
[2017-02-22 16:22] LABS: ALANINE AMINOTRANSFERASE 30 U/L (9-52); ALBUMIN 3.7 g/dL (3.5-5.0); ALKALINE PHOSPHATASE 109 U/L (38-126); ANION GAP 14 (5-19); ASPARTATE AMINO TRANSFERASE 23 U/L (14-36); BILIRUBIN,DIRECT 0.5 mg/dL (0.0-0.4); BILIRUBIN,TOTAL 0.5 mg/dL (0.2-1.3); BLOOD UREA NITROGEN 27 mg/dL (7-20); CALCIUM 9.3 mg/dL (8.4-10.2); CARBON DIOXIDE 24 mmol/L (22-30); CHLORIDE 102 mmol/L (98-107); CREATININE RESULT 1.79 mg/dL (0.52-1.25); GLUCOSE 235 mg/dL (75-110); SODIUM 140.1 mmol/L (137-145); TOTAL PROTEIN 6.7 g/dL (6.3-8.2)
--- NOTE | 2017-02-22 16:44 | RADIOLOGY REPORT (SQ) ---
EXAM DESCRIPTION: CHEST SINGLE VIEW COMPLETED DATE/TIME: 02/22/2017 4:22 pm REASON FOR STUDY: + cre pneumonia COMPARISON: 02/04/2017 EXAM PARAMETERS: NUMBER OF VIEWS: One view. TECHNIQUE: Single frontal radiographic view of the chest acquired. RADIATION DOSE: NA LIMITATIONS: None. FINDINGS: LUNGS AND PLEURA: Mild scarring bilaterally. No acute opacities, masses or pneumothorax. No pleural effusion. MEDIASTINUM AND HILAR STRUCTURES: No masses. Contour normal. HEART AND VASCULAR STRUCTURES: Moderate cardiomegaly. Vasculature within normal limits. BONES: No acute findings. HARDWARE: None in the chest. OTHER: No other significant finding. IMPRESSION: Cardiomegaly and mild scarring without evidence of acute cardiopulmonary disease. TECHNICAL DOCUMENTATION: JOB ID: [id number]
[2017-02-22] MEDS ORDERED: NORMAL SALINE 1000 ML 1,000 ML IV ONE (16:50)
[2017-02-22] MEDS ORDERED: PREDNISONE 20 MG TABLET PO ONE (18:29)
[2017-02-22] MEDS ORDERED: IPRATROPIUM/ALBUTEROL 0.5-2.5 MG/3 ML AMPUL NEB ONE (18:29)
[2017-02-22] MEDS ORDERED: HYDROMORPHONE HCL INJ/PF 2 MG/ML AMPULE IV ONE (18:30)
[2017-02-22 19:30] VITALS: BP 108/58
--- NOTE | 2017-02-23 00:03 | EKG REPORT ---
SEVERITY:- ABNORMAL ECG - SINUS RHYTHM INCOMPLETE LEFT BUNDLE BRANCH BLOCK PROBABLE LEFT VENTRICULAR HYPERTROPHY : Confirmed by: Jung Olvera 23-Feb-2017 00:02:56
== END 2017-02-22 19:42 | disposition home or self-care (01) ==
LOC: ER 15:06
DX: J44.1 Chronic obstructive pulmonary disease with (acute) exacerbation (principal); B96.89 Other specified bacterial agents as the cause of diseases classified elsewhere; Z16.19 Resistance to other specified beta lactam antibiotics; R06.02 Shortness of breath; I10 Essential (primary) hypertension; I25.2 Old myocardial infarction; Z86.14 Personal history of Methicillin resistant Staphylococcus aureus infection; Z88.2 Allergy status to sulfonamides; Z91.048 Other nonmedicinal substance allergy status; Z88.8 Allergy status to other drugs, medicaments and biological substances; Z86.711 Personal history of pulmonary embolism; Z87.01 Personal history of pneumonia (recurrent)
CPT/HCPCS: 93005; 94640; 99285; 96361; 96375; 96365; 36415; 87040; 82962; 85025; 85610; 80053; 83605; 71010; 93010; J3490; J1335; J1170; A9270 ×2; J7030; J7512; J7620

== ENCOUNTER 2017-04-01 16:21 | Emergency (ER) | payer MEDICARE, MEDICAID ==
[2017-04-01 17:25] LABS: HEMATOCRIT 31.7 % (36.0-47.0); HEMOGLOBIN 10.7 g/dL (12.0-15.5); HGB HCT DIFFERENCE 0.4; MEAN CORPUSCULAR HEMOGLOBIN 28.9 pg (27.0-33.4); MEAN CORPUSCULAR HGB CONC 33.9 g/dL (32.0-36.0); MEAN CORPUSCULAR VOLUME 85 fl (80-97); RED BLOOD COUNT 3.71 10^6/uL (3.72-5.28); RED CELL DISTRIBUTION WIDTH 15.8 % (11.5-14.0); WHITE BLOOD COUNT 8.2 10^3/uL (4.0-10.5)
--- NOTE | 2017-04-01 17:28 | RADIOLOGY REPORT (SQ) ---
EXAM DESCRIPTION: CHEST SINGLE VIEW COMPLETED DATE/TIME: 04/01/2017 5:01 pm REASON FOR STUDY: bed 10 sob COMPARISON: 02/22/2017 EXAM PARAMETERS: NUMBER OF VIEWS: One view. TECHNIQUE: Single frontal radiographic view of the chest acquired. RADIATION DOSE: NA LIMITATIONS: None. FINDINGS: LUNGS AND PLEURA: There is subsegmental atelectasis in the left lung. There is no acute i nfiltrate or effusion. MEDIASTINUM AND HILAR STRUCTURES: No masses. Contour normal. HEART AND VASCULAR STRUCTURES: Cardiomegaly without failure. BONES: No acute findings. The right humeral head has been resected. Degenerative changes are seen i n the left shoulder. HARDWARE: None in the chest. OTHER: No other significant finding. IMPRESSION: Cardiomegaly without failure. TECHNICAL DOCUMENTATION: JOB ID: [id number]
[2017-04-01 17:34] LABS: ALANINE AMINOTRANSFERASE 22 U/L (9-52); ALKALINE PHOSPHATASE 149 U/L (38-126); ANION GAP 11 (5-19); ASPARTATE AMINO TRANSFERASE 14 U/L (14-36); BILIRUBIN,DIRECT 0.5 mg/dL (0.0-0.4); BILIRUBIN,TOTAL 0.5 mg/dL (0.2-1.3); BLOOD UREA NITROGEN 25 mg/dL (7-20); CALCIUM 9.6 mg/dL (8.4-10.2); CARBON DIOXIDE 27 mmol/L (22-30); CHLORIDE 104 mmol/L (98-107); CREATINE KINASE 23 U/L (30-135); CREATININE RESULT 1.58 mg/dL (0.52-1.25); GLUCOSE 233 mg/dL (75-110); POTASSIUM 4.9 mmol/L (3.6-5.0); SODIUM 142.3 mmol/L (137-145); TOTAL PROTEIN 6.7 g/dL (6.3-8.2)
[2017-04-01 17:45] LABS: CREATINE KINASE MB 2.15 ng/mL (<4.55); TROPONIN I 0.013 ng/mL
[2017-04-01 17:55] LABS: BASOPHILS % (MANUAL) 0 % (0-2); EOSINOPHILS % (MANUAL) 0 % (0-6); LYMPHOCYTES % (MANUAL) 12 % (13-45); TOTAL CELLS COUNTED 100
[2017-04-01 17:56] LABS: ANISOCYTOSIS SLIGHT; HYPOCHROMASIA 1+
[2017-04-01] MEDS ORDERED: IPRATROPIUM/ALBUTEROL 0.5-2.5 MG/3 ML AMPUL NEB ONE (18:29)
[2017-04-01] MEDS ORDERED: METHYLPREDNISOLONE INJ 125 MG/2 ML SDV IV ONE (18:29)
[2017-04-01] MEDS ORDERED: FUROSEMIDE INJ/PF 40 MG/4 ML SDV IV ONE (18:29)
--- NOTE | 2017-04-01 20:07 | ER Document Report ---
ED Respiratory Problem - General Chief Complaint: Shortness Of Breath Stated Complaint: SHORTNESS OF BREATH Time Seen by Provider: 04/01/17 18:02 Notes: The patient is a 71-year-old female, past medical history CHF, COPD, CRE colonization, presents from [facility] with mild shortness of breath. She tried an albuterol at home without much relief of her symptoms. She is taking 40 mg Lasix daily and her 10 mg prednisone daily was increased to 40 mg prednisone earlier today by her primary care physician. Patient denies chest pain, fevers, hemoptysis, nausea, vomiting, back pain, abdominal pain, numbness , tingling or headache. TRAVEL OUTSIDE OF THE [place] IN LAST 30 DAYS: No - Related Data Allergies/Adverse Reactions: Sulfa (Sulfonamide Antibiotics) Allergy (Intermediate, Verified 02/01/17 09:00) adhesive tape Allergy (Verified 02/01/17 09:00) atorvastatin calcium [From Lipitor] Allergy (Verified 02/01/17 09:00) celecoxib [From Celebrex] Allergy (Verified 02/01/17 09:00) Past Medical History - General Information source: Patient - Social History Smoking Status: Former Smoker Family History: Arthritis, CAD, CVA, DM, Hypertension - Past Medical History Cardiac Medical History: Reports: Hx Atrial Fibrillation, Hx Congestive Heart Failure - Diastolic dysfunction, Hx Heart Attack, Hx Hypertension - essential, Hx Pulmonary Embolism, Hx Heart Murmur Denies: Hx Coronary Artery Disease, Hx DVT, Hx Hypercholesterolemia, Hx Peripheral Vascular Disease Pulmonary Medical History: Reports: Hx Asthma, Hx Bronchitis, Hx COPD, Hx Pneumonia - Recurrent MRSA pneumonia., Hx Sleep Apnea - Uses C Pap Denies: Hx Tuberculosis Neurological Medical History: Denies: Hx Seizures Endocrine Medical History: Reports: Hx Diabetes Mellitus Type 2. Denies: Hx Diabetes Mellitus Type 1, Hx Hyperthyroidism, Hx Hypothyroidism Renal/ Medical History: Reports: Hx Renal Insufficiency. Denies: Hx Peritoneal Dialysis GI Medical History: Reports: Hx Gastroesophageal Reflux Disease, Hx Hiatal Hernia. Denies: Hx Cirrhosis, Hx Hepatitis Musculoskeltal Medical History: Reports Hx Arthritis, Reports Hx Fibromyalgia, Reports Hx Gout, Reports Hx Muscle Weakness Skin Medical History: Denies Hx Eczema, Denies Hx Psoriasis Psychiatric Medical History: Reports: Hx Anxiety, Hx Depression Infectious Medical History: Reports: Hx MRSA. Denies: Hx Hepatitis Past Surgical History: Reports: Hx Appendectomy, Hx Cholecystectomy, Hx Hysterectomy, Hx Orthopedic Surgery - Multiple left hip procedures, 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 - Immunizations Hx Diphtheria, Pertussis, Tetanus Vaccination: Yes Hx Pneumococcal Vaccination: 05/20/13 Review of Systems - Review of Systems Notes: REVIEW OF SYSTEMS: CONSTITUTIONAL: -fevers, -chills EENT: -eye pain, -difficulty swallowing, -nasal congestion CARDIOVASCULAR: -chest pain, -syncope. RESPIRATORY: -cough, +SOB GASTROINTESTINAL: -abdominal pain, - nausea, -vomiting, -diarrhea GENITOURINARY: -dysuria, -hematuria MUSCULOSKELETAL: -back pain, -neck pain SKIN: -rash or skin lesions. HEMATOLOGIC: -easy bruising or bleeding. LYMPHATIC: -swollen, enlarged glands. NEUROLOGICAL: -altered mental status or loss of consciousness, -headache, - neurologic symptoms PSYCHIATRIC: -anxiety, -depression. ALL OTHER SYSTEMS REVIEWED AND NEGATIVE. Physical Exam - Vital signs Vitals: Pulse Ox 98 04/01/17 16:35 - Notes Notes: PHYSICAL EXAMINATION: GENERAL: Well-appearing, well-nourished and in no acute distress. HEAD: Atraumatic, normocephalic. EYES: Pupils equal round and reactive to light, extraocular movements intact, sclera anicteric, conjunctiva are normal. ENT: nares patent, oropharynx clear without exudates. Moist mucous membranes. NECK: Normal range of motion, supple without lymphadenopathy LUNGS: Wheezing, mild respiratory distress, tachypnea HEART: Regular rate and rhythm without murmurs ABDOMEN: Soft, nontender, normoactive bowel sounds. No guarding, no rebound. No masses appreciated. EXTREMITIES: Normal range of motion, 1+ pitting edema in legs. No cyanosis. NEUROLOGICAL: Cranial nerves grossly intact. Normal speech, normal gait. Normal sensory and motor exams. PSYCH: Normal mood, normal affect. SKIN: Warm, Dry, normal turgor, no rashes or lesions noted. Course - Re-evaluation Re-evalutation: Patient appears well. After duonebs, IV steroids and IV Lasix, patient feels much better. Her repeat lung exam is clear. Chest x-ray does not show any acute abnormalities. Blood work is unremarkable, other than slightly elevated creatinine, but the value is lower than prior values. Pt had an episode of nausea that resolved after Zofran and she felt similar to her prior GERD episodes. She is eating without any nausea, vomiting or abdominal pain. Will discharge patient back to her senior living with strict return precautions and follow-up with her primary care physician tomorrow. - Vital Signs Vital signs: Temp Pulse Resp BP Pulse Ox 18 156/61 H 97 04/01/17 21:01 04/01/17 21:00 04/01/17 21:01 - Laboratory Result Diagrams: 04/01/17 16:44 04/01/17 16:44 Laboratory results interpreted by me: 04/01/17 04/01/17 16:44 16:44 RBC 3.71 L Hgb 10.7 L Hct 31.7 L RDW 15.8 H Seg Neuts % (Manual) 87 H Lymphocytes % (Manual) 12 L Monocytes % (Manual) 1 L BUN 25 H Creatinine 1.58 H Est GFR ( Amer) 39 L Est GFR (Non-Af Amer) 32 L Glucose 233 H Direct Bilirubin 0.5 H Alkaline Phosphatase 149 H Creatine Kinase 23 L - Diagnostic Test Radiology reviewed: Image reviewed, Reports reviewed Radiology results interpreted by me: CXR: cardiomegaly without evidence of failure - EKG Interpretation by Me EKG shows normal: Sinus rhythm, Rochelle, Intervals, QRS Complexes, ST-T Waves When compared to previous EKG there are: No significant change Discharge - Discharge Clinical Impression: COPD exacerbation Dyspnea Qualifiers: Dyspnea type: unspecified Qualified Code(s): R06.00 - Dyspnea, unspecified Condition: Stable Disposition: HOME, SELF-CARE Additional Instructions: SHORTNESS OF BREATH OR DYSPNEA: You were evaluated for shortness of breath, or dyspnea. Dyspnea has many causes, and some are more serious than others. Sometimes it's impossible to diagnose the cause of dyspnea with the tests that are available on an emergency basis. Based on our evaluation today, you do not need hospitalization now. We found no evidence of pneumonia, collapsed lung, blood clots in the lung, tumors , or heart failure. Causes of non-specific dyspnea can include asthma or bronchospasm, hyperventilation, emotional distress, heart disease, emphysema, fibrosis of the lung, and stiffness of the chest wall. In healthy individuals with a single episode, it's sometimes reasonable to do nothing but wait to see if the problem occurs again. Additional tests used to evaluate dyspnea can include cardiac stress testing, echocardiography, pulmonary function testing, CAT scan of the chest, bronchoscopy or pulmonary biopsy. Return if shortness of breath persists or worsens, or if you develop chest pain, fever, cough, confusion, or fainting. NORMAL EXAM AND WORKUP: At this time, your examination and workup show no significant abnormality. No significant abnormal physical findings were noted. All laboratory, EKG, and imaging (x-ray, CT scans, ultrasound) studies that were ordered show no significant abnormality. Although your examination and all studies that were ordered showed no significant abnormal finding, there are no examinations and no studies that are 100% accurate. There is always the possibility that some abnormality could exist and not be detected with physical examination or within the limits and capabilities of laboratory and other studies. You should return or follow up as you were instructed on your visit today for further evaluation if your symptoms do not resolve. FOLLOW-UP CARE: If you have been referred to a physician for follow-up care, call the physician s office for an appointment as you were instructed or within the next two days. If you experience worsening or a significant change in your symptoms, notify the physician immediately or return to the Emergency Department at any time for re-evaluation. BRONCHITIS WITH BRONCHOSPASM (WHEEZING): You have bronchitis with bronchospasm (wheezing). Sometimes people develop wheezing with a chest cold. This occurs either because of an underlying tendency toward asthma or because the virus itself irritates the bronchial tubes. This irritation causes cough, shortness of breath, and wheezing. Emergency treatment of bronchospasm may include adrenaline shots or bronchodilator aerosol. You may feel lightheaded and have a rapid pulse for an hour or two. Rest and get plenty of fluids. At home, we'll treat you with a bronchodilator inhaler. Corticosteroids may be required for some patients. Until you recover, avoid chemical fumes, dusts, pollens, and exercising in very cold or dry air. If you smoke, stop now! Most cases of bronchitis get better without antibiotics. We prescribe antibiotics when we believe bacteria are damaging your airways, or if there's high risk the bronchitis will worsen into pneumonia. Increase your fluid intake. A cool mist humidifier may make your lungs more comfortable. An expectorant (cough medicine that loosens phlegm) can help. Repeated episodes of bronchitis and bronchospasm may result in lung damage -- for example, chronic bronchitis, recurrent pneumonias, or emphysema. If you develop a fever, increased wheezing, chest pain, or severe shortness of breath, you should contact the doctor immediately. INHALED BRONCHODILATORS: You have received a treatment of and/or prescription for an inhaled bronchodilator -- a medication which stimulates the airways in the lung to dilate. This improves the flow of air in asthma, bronchitis, and emphysema. These medicines have some similarity to adrenaline, and can cause similar side effects: shakiness, racing heart, and a sense of nervousness. These side effects decrease with time. Contact your doctor if these side effects are severe. Do not over-use the medicine. Too-frequent use of the inhaler may make it ineffective. Call your doctor if the inhaler is not controlling your symptoms at the prescribed doses. STEROID MEDICATION: You have been given an injection of or oral medicine of the cortisone/ steroid class. This medication is used to control inflammation or allergy. Herbert t is usually only given for a short period of time, until the acute process subsides. There are usually no side effects from short-term use of cortisone-like medications. Some persons feel an increased sense of well-being and are not sleepy at bedtime. Long-term use of cortisone medications is best avoided, unless required for a severe condition. If your condition does not remit, or relapses after the course of corticosteroid medication, you should consult your physician. USE OF ACETAMINOPHEN (Tylenol): Acetaminophen may be taken for pain relief or fever control. It's much safer than aspirin, offering a wider range of "safe" dosages. It is safe during . Some brand names are Tylenol, Panadol, Datril, Anacin 3, Tempra, and Liquiprin. Acetaminophen can be repeated every four hours. The following are maximum recommended dosages: >89 pounds or adults 650 mg to 900 mg Acetaminophen can be repeated every four hours. Maximum dose not to exceed 4000 mg a day. SMOKING: If you smoke, you should stop smoking. The tar and chemicals in cigarette smoke are harmful. Smoking has been shown to cause: emphysema chronic bronchitis lung cancer mouth and throat cancer stomach and pancreas cancer premature aging defects In addition, smoking increases ear and lung infections in children of smokers. FOLLOW-UP CARE: If you have been referred to a physician for follow-up care, call the physician s office for an appointment as you were instructed or within the next two days. If you experience worsening or a significant change in your symptoms, notify the physician immediately or return to the Emergency Department at any time for re-evaluation. Prescriptions: Prednisone [Deltasone 10 mg Tablet] 10 mg PO ASDIR PRN #21 tablet PRN Reason: Referrals: MUSA HODGSON MD [Primary Care Provider] - Follow up as needed
[2017-04-01] MEDS ORDERED: ONDANSETRON HCL INJ/PF 4 MG/2 ML SDV IV ONE (20:36)
[2017-04-01] MEDS ORDERED: ONDANSETRON HCL INJ/PF 4 MG/2 ML SDV ONE (20:40)
[2017-04-01 21:02] LABS: APPEARANCE,URINE CLEAR; BILIRUBIN,URINE NEGATIVE (NEGATIVE); GLUCOSE, URINE NEGATIVE (NEGATIVE); KETONES,URINE NEGATIVE (NEGATIVE); LEUKOCYTE ESTERASE,URINE NEGATIVE (NEGATIVE); NITRITE,URINE NEGATIVE (NEGATIVE); PROTEIN,URINE NEGATIVE (NEGATIVE); URINE SPECIFIC GRAVITY 1.005; UROBILINOGEN,URINE NEGATIVE mg/dL (<2.0)
[2017-04-01 23:09] VITALS: BP 124/75
--- NOTE | 2017-04-02 04:45 | EKG REPORT ---
SEVERITY:- ABNORMAL ECG - SINUS RHYTHM ATRIAL PREMATURE COMPLEX LEFT ANTERIOR FASCICULAR BLOCK LEFT VENTRICULAR HYPERTROPHY : Confirmed by: Yesenia Graham MD 02-Apr-2017 04:28:41
== END 2017-04-01 23:20 | disposition home or self-care (01) ==
LOC: ER 16:21
DX: J44.1 Chronic obstructive pulmonary disease with (acute) exacerbation (principal); I50.9 Heart failure, unspecified; I48.91 Unspecified atrial fibrillation; E11.9 Type 2 diabetes mellitus without complications; Z88.2 Allergy status to sulfonamides; I25.2 Old myocardial infarction; Z86.711 Personal history of pulmonary embolism; Z86.14 Personal history of Methicillin resistant Staphylococcus aureus infection; Z90.49 Acquired absence of other specified parts of digestive tract; Z90.710 Acquired absence of both cervix and uterus; Z74.01 Bed confinement status
CPT/HCPCS: 93005; 94640; 99285; 96374; 96375; 36415; 87040; 82553; 82550; 85025; 80053; 81001; 84484; 71010; 93010; J1940; J2930; J2405; A9270; J7620

== ENCOUNTER 2017-04-17 08:07 | Emergency (ER) | payer MEDICARE, MEDICAID ==
[2017-04-17 08:57] LABS: ABSOLUTE EOSINOPHILS # (AUTO) 0.1 10^3/uL (0.0-0.6); ABSOLUTE LYMPHOCYTES (AUTO) 2.6 10^3/uL (0.5-4.7); ABSOLUTE MONOCYTES (AUTO) 1.2 10^3/uL (0.1-1.4); ABSOLUTE NEUT (AUTO) 7.2 10^3/uL (1.7-8.2); BASOPHILS % (AUTO) 0.3 % (0-2); EOSINOPHILS % (AUTO) 0.9 % (0-6); HEMATOCRIT 29.8 % (36.0-47.0); HGB HCT DIFFERENCE 0.2; LYMPHOCYTES % (AUTO) 23.6 % (13-45); MEAN CORPUSCULAR HEMOGLOBIN 28.6 pg (27.0-33.4); MEAN CORPUSCULAR HGB CONC 33.4 g/dL (32.0-36.0); MEAN CORPUSCULAR VOLUME 86 fl (80-97); MONOCYTES % (AUTO) 10.5 % (3-13); RED BLOOD COUNT 3.48 10^6/uL (3.72-5.28); RED CELL DISTRIBUTION WIDTH 16.8 % (11.5-14.0); SEGMENTED NEUTROPHILS % (AUTO) 64.7 % (42-78); WHITE BLOOD COUNT 11.2 10^3/uL (4.0-10.5)
[2017-04-17 08:58] LABS: VENOUS BLOOD BASE EXCESS 6.6 mmol/L; VENOUS BLOOD HCO3 32.6 mmol/L (20-32); VENOUS BLOOD PCO2 54.5 mmHg (35-63); VENOUS BLOOD PH 7.4 (7.30-7.42)
--- NOTE | 2017-04-17 09:03 | RADIOLOGY REPORT (SQ) ---
EXAM DESCRIPTION: CHEST SINGLE VIEW COMPLETED DATE/TIME: 04/17/2017 8:51 am REASON FOR STUDY: sob COMPARISON: CT angio chest 07/04/2014 Chest films 08/24/2016, 01/13/2017, 02/04/2017, 02/22/2017, 04/01/2017 EXAM PARAMETERS: NUMBER OF VIEWS: One view. TECHNIQUE: Single frontal radiographic view of the chest acquired. RADIATION DOSE: NA LIMITATIONS: Obese patient, portable technique FINDINGS: LUNGS AND PLEURA: There is bandlike airspace disease in the lingula, scarring versus atele ctasis. Lungs are otherwise free of focal infiltrates. No pleural effusion. No pneumothorax. MEDIASTINUM AND HILAR STRUCTURES: No masses. Contour normal. HEART AND VASCULAR STRUCTURES: Stable massive cardiomegaly BONES: Osteoporotic. Resection of the right humeral head. Advanced left glenohumeral joint arthriti s HARDWARE: None in the chest. OTHER: No other significant finding. IMPRESSION: Bandlike scarring or atelectasis in the lingula. Stable massive cardiomegaly. TECHNICAL DOCUMENTATION: JOB ID: [id number]
[2017-04-17 09:09] LABS: ALANINE AMINOTRANSFERASE 22 U/L (9-52); ALBUMIN 3.4 g/dL (3.5-5.0); ALKALINE PHOSPHATASE 131 U/L (38-126); ANION GAP 11 (5-19); ASPARTATE AMINO TRANSFERASE 12 U/L (14-36); BILIRUBIN,DIRECT 0.4 mg/dL (0.0-0.4); BILIRUBIN,TOTAL 0.6 mg/dL (0.2-1.3); BLOOD UREA NITROGEN 22 mg/dL (7-20); CARBON DIOXIDE 32 mmol/L (22-30); CHLORIDE 99 mmol/L (98-107); CREATINE KINASE 23 U/L (30-135); CREATININE RESULT 1.16 mg/dL (0.52-1.25); GLUCOSE 189 mg/dL (75-110); MAGNESIUM 2.3 mg/dL (1.6-2.3); POTASSIUM 3.8 mmol/L (3.6-5.0); SODIUM 142.2 mmol/L (137-145); TOTAL PROTEIN 5.6 g/dL (6.3-8.2)
[2017-04-17 09:22] LABS: CREATINE KINASE MB 1.66 ng/mL (<4.55); TROPONIN I 0.029 ng/mL
--- NOTE | 2017-04-17 10:53 | ER Document Report ---
ED General - General Chief Complaint: Breathing Difficulty Stated Complaint: SHORTNESS OF BREATH Time Seen by Provider: 04/17/17 08:17 TRAVEL OUTSIDE OF THE [place] IN LAST 30 DAYS: No - HPI Patient complains to provider of: Left leg swelling shortness of breath Notes: Patient coming in for evaluation of left leg swelling shortness of breath. Patient is in local skilled nursing. Patient has colonization a CRE VRE and MRSA. Patient has a history of COPD. Patient was recently seen for COPD exacerbation patient is on chronic steroids currently is on prednisone 30 mg. Patient states compliant with her medications as well as her nebulizer treatments. Patient was given an large treatment prior to arrival here. Upon my evaluation patient is on her home O2 dose 2 L with no signs of respiratory distress. Patient also complaining of left leg swelling. Patient has bruising to the lateral lower left leg patient has obvious swelling. Patient states this is been ongoing for the last 3-4 days after she hit her leg on her chair. Patient states that she is currently on Eliquis due to clotting disorder. Denies any head trauma. Patient resting comfortably - Related Data Allergies/Adverse Reactions: Sulfa (Sulfonamide Antibiotics) Allergy (Intermediate, Verified 02/01/17 09:00) adhesive tape Allergy (Verified 02/01/17 09:00) atorvastatin calcium [From Lipitor] Allergy (Verified 02/01/17 09:00) celecoxib [From Celebrex] Allergy (Verified 02/01/17 09:00) Past Medical History - Social History Smoking Status: Unknown if Ever Smoked Family History: Arthritis, CAD, CVA, DM, Hypertension Patient has suicidal ideation: No Patient has homicidal ideation: No - Past Medical History Cardiac Medical History: Reports: Hx Atrial Fibrillation, Hx Congestive Heart Failure - Diastolic dysfunction, Hx Heart Attack, Hx Hypertension - essential, Hx Pulmonary Embolism, Hx Heart Murmur Denies: Hx Coronary Artery Disease, Hx DVT, Hx Hypercholesterolemia, Hx Peripheral Vascular Disease Pulmonary Medical History: Reports: Hx Asthma, Hx Bronchitis, Hx COPD, Hx Pneumonia - Recurrent MRSA pneumonia., Hx Sleep Apnea - Uses C Pap Denies: Hx Tuberculosis Neurological Medical History: Denies: Hx Seizures Endocrine Medical History: Reports: Hx Diabetes Mellitus Type 2. Denies: Hx Diabetes Mellitus Type 1, Hx Hyperthyroidism, Hx Hypothyroidism Renal/ Medical History: Reports: Hx Renal Insufficiency. Denies: Hx Peritoneal Dialysis GI Medical History: Reports: Hx Gastroesophageal Reflux Disease, Hx Hiatal Hernia. Denies: Hx Cirrhosis, Hx Hepatitis Musculoskeltal Medical History: Reports Hx Arthritis, Reports Hx Fibromyalgia, Reports Hx Gout, Reports Hx Muscle Weakness Skin Medical History: Denies Hx Eczema, Denies Hx Psoriasis Psychiatric Medical History: Reports: Hx Anxiety, Hx Depression Infectious Medical History: Reports: Hx MRSA. Denies: Hx Hepatitis Past Surgical History: Reports: Hx Appendectomy, Hx Cholecystectomy, Hx Hysterectomy, Hx Orthopedic Surgery - Multiple left hip procedures, 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 - Immunizations Hx Diphtheria, Pertussis, Tetanus Vaccination: Yes Hx Pneumococcal Vaccination: 05/20/13 Review of Systems - Review of Systems Constitutional: No symptoms reported EENT: No symptoms reported Cardiovascular: No symptoms reported Respiratory: Short of breath Gastrointestinal: No symptoms reported Genitourinary: No symptoms reported Female Genitourinary: No symptoms reported Musculoskeletal: Leg swelling Skin: No symptoms reported Hematologic/Lymphatic: No symptoms reported Neurological/Psychological: No symptoms reported -: Yes All other systems reviewed and negative Physical Exam - Vital signs Vitals: Temp Resp BP Pulse Ox 99.0 F 16 123/82 98 04/17/17 08:15 04/17/17 08:15 04/17/17 08:15 04/17/17 08:15 Interpretation: Normal - General General appearance: Appears well, Alert - HEENT Head: Normocephalic, Atraumatic Eyes: Normal Pupils: PERRL - Respiratory Respiratory status: No respiratory distress Chest status: Nontender Breath sounds: Wheezing - Scattered Chest palpation: Normal - Cardiovascular Rhythm: Regular Heart sounds: Normal auscultation Murmur: No - Abdominal Inspection: Normal Distension: No distension Bowel sounds: Normal Tenderness: Nontender Organomegaly: No organomegaly - Back Back: Normal, Nontender - Extremities General upper extremity: Normal inspection, Nontender, Normal color, Normal ROM , Normal temperature General lower extremity: Normal inspection, Tender - Left leg tenderness, Edema - 2+ pitting edema with ecchymosis and bruising of the left lower leg. Right leg 1+ pitting edema, Normal color, Normal ROM, Normal temperature. No: Normal weight bearing - Neurological Neuro grossly intact: Yes Cognition: Normal Orientation: AAOx4 Spalding Coma Scale Eye Opening: Spontaneous Duy Coma Scale Verbal: Oriented Duy Coma Scale Motor: Obeys Commands Spalding Coma Scale Total: 15 Speech: Normal Motor strength normal: LUE, RUE, LLE, RLE Sensory: Normal - Psychological Associated symptoms: Normal affect, Normal mood - Skin Skin Temperature: Warm Skin Moisture: Dry Skin Color: Normal Course - Re-evaluation Re-evalutation: 04/17/17 14:35 Patient is afebrile with no significant leukocytosis bandemia. Ultrasound of the legs that showed clot however does show hematoma formation. Patient is in no signs of impingement distress will discharge patient back to skilled nursing to continue her care. - Vital Signs Vital signs: Temp Pulse Resp BP Pulse Ox 99.0 F 14 133/68 H 97 04/17/17 08:15 04/17/17 11:01 04/17/17 11:00 04/17/17 11:01 - Laboratory Result Diagrams: 04/17/17 08:40 04/17/17 08:40 Laboratory results interpreted by me: 04/17/17 04/17/17 04/17/17 08:40 08:40 08:40 WBC 11.2 H RBC 3.48 L Hgb 10.0 L Hct 29.8 L RDW 16.8 H VBG HCO3 32.6 H Carbon Dioxide 32 H BUN 22 H Est GFR ( Amer) 55 L Est GFR (Non-Af Amer) 46 L Glucose 189 H AST 12 L Alkaline Phosphatase 131 H Creatine Kinase 23 L Total Protein 5.6 L Albumin 3.4 L Discharge - Discharge Clinical Impression: COPD exacerbation Hematoma of left lower extremity Qualifiers: Encounter type: initial encounter Qualified Code(s): S80.12XA - Contusion of left lower leg, initial encounter Condition: Good Disposition: HOME, SELF-CARE Instructions: Chronic Obstructive Lung Disease ([facility]), Dependent Edema ([facility]) Additional Instructions: Your evaluation today shows slight COPD exacerbation chest x-ray does not show any signs of infection. Laboratory studies not show any acute changes. Your Doppler of your left lower leg does not show any blood clot but does show a large hematoma formation more likely from the trauma to experience no signs of any other pathology please continue your nebulizer treatments would recommend possibly increasing her albuterol from every 4 to every 2 hours as needed follow -up with your primary care physician return to the ER symptoms worsen. Referrals: MUSA HODGSON MD [Primary Care Provider] - Follow up as needed
[2017-04-17 11:20] VITALS: BP 133/68
--- NOTE | 2017-04-17 17:36 | EKG REPORT ---
SEVERITY:- ABNORMAL ECG - WANDERING PACEMAKER SUPRAVENTRICULAR BIGEMINY LEFT ANTERIOR FASCICULAR BLOCK LVH WITH SECONDARY REPOLARIZATION ABNORMALITY : Confirmed by: Yesenia Graham MD 17-Apr-2017 17:34:55
--- NOTE | 2017-04-18 08:15 | XCELERA REPORT ---
[address] [address] Lower Extremity Venous Evaluation Name: PORSHA WALDRON Age: 71 yrs Gender: Female : 1945 Patient Status: Emergency Patient Location: ER Study Date: 04/17/2017 09:40 AM Procedure: Color flow and duplex imaging of the veins of the left lower extremity as well as the right Common Femoral vein. Reason For Study: lle swelling Ordering Physician: ETIENNE CHAVEZ Performed By: Zora Gan Right Sided Venous Evaluation The right common femoral vein is fully compressible. Spontaneous and phasic flow is present in the right common femoral vein. Left Sided Venous Evaluation Normal vessel filling wall to wall, compression and augmentation as well as Colour flow down to the infrageniculate veins. Interpretation Summary No duplex evidence of DVT or obstruction in the left lower extremity nor in the right Common Femoral vein. : ETIENNE CHAVEZ > Rivas Triplett
== END 2017-04-17 11:35 | disposition home or self-care (01) ==
LOC: ER 08:07
DX: J44.1 Chronic obstructive pulmonary disease with (acute) exacerbation (principal); S80.12XA Contusion of left lower leg, initial encounter; R06.02 Shortness of breath; M79.89 Other specified soft tissue disorders; W22.03XA Walked into furniture, initial encounter; Z79.899 Other long term (current) drug therapy
CPT/HCPCS: 36415; 71010; 80053; 82550; 82553; 82803; 83735; 83880; 84484; 85025; 85610; 85730; 93005; 93010; 93971; 99285

== ENCOUNTER 2017-06-02 10:07 | Emergency (ER) | payer MEDICARE, MEDICAID ==
--- NOTE | 2017-06-02 10:19 | ER Document Report ---
ED General - General Stated Complaint: SHORTNESS OF BREATH Time Seen by Provider: 06/02/17 10:13 Mode of Arrival: Medic Information source: Patient, DrBarb Office Notes: 71-year-old female history COPD CHF asthma presents with complaints of shortness of breath. Patient was just diagnosed with pneumonia 5 days ago has been on Levaquin 500 mg daily with no improvement. Patient noted to have respiratory distress by EMS TRAVEL OUTSIDE OF THE [place] IN LAST 30 DAYS: No - HPI Onset: Last week Onset/Duration: Worse Quality of pain: Achy Severity: Mild Pain Level: 1 Associated symptoms: Productive cough, Shortness of breath Exacerbated by: Denies Relieved by: Denies Similar symptoms previously: Yes Recently seen / treated by doctor: Yes - Related Data Allergies/Adverse Reactions: Sulfa (Sulfonamide Antibiotics) Allergy (Intermediate, Verified 02/01/17 09:00) adhesive tape Allergy (Verified 02/01/17 09:00) atorvastatin calcium [From Lipitor] Allergy (Verified 02/01/17 09:00) celecoxib [From Celebrex] Allergy (Verified 02/01/17 09:00) Past Medical History - Social History Smoking Status: Former Smoker Cigarette use (# per day): No Chew tobacco use (# tins/day): No Smoking Education Provided: No Family History: Arthritis, CAD, CVA, DM, Hypertension - Past Medical History Cardiac Medical History: Reports: Hx Atrial Fibrillation, Hx Congestive Heart Failure - Diastolic dysfunction, Hx Heart Attack, Hx Hypertension - essential, Hx Pulmonary Embolism, Hx Heart Murmur Denies: Hx Coronary Artery Disease, Hx DVT, Hx Hypercholesterolemia, Hx Peripheral Vascular Disease Pulmonary Medical History: Reports: Hx Asthma, Hx Bronchitis, Hx COPD, Hx Pneumonia - Recurrent MRSA pneumonia., Hx Sleep Apnea - Uses C Pap Denies: Hx Tuberculosis Neurological Medical History: Denies: Hx Seizures Endocrine Medical History: Reports: Hx Diabetes Mellitus Type 2. Denies: Hx Diabetes Mellitus Type 1, Hx Hyperthyroidism, Hx Hypothyroidism Renal/ Medical History: Reports: Hx Renal Insufficiency. Denies: Hx Peritoneal Dialysis GI Medical History: Reports: Hx Gastroesophageal Reflux Disease, Hx Hiatal Hernia. Denies: Hx Cirrhosis, Hx Hepatitis Musculoskeltal Medical History: Reports Hx Arthritis, Reports Hx Fibromyalgia, Reports Hx Gout, Reports Hx Muscle Weakness Skin Medical History: Denies Hx Eczema, Denies Hx Psoriasis Psychiatric Medical History: Reports: Hx Anxiety, Hx Depression Infectious Medical History: Reports: Hx MRSA. Denies: Hx Hepatitis Past Surgical History: Reports: Hx Appendectomy, Hx Cholecystectomy, Hx Hysterectomy, Hx Orthopedic Surgery - Multiple left hip procedures, 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 - Immunizations Hx Diphtheria, Pertussis, Tetanus Vaccination: Yes Hx Pneumococcal Vaccination: 05/20/13 Review of Systems - Review of Systems Notes: REVIEW OF SYSTEMS: CONSTITUTIONAL : Denies fever, chills, or sweats. Denies recent illness. EENT: Denies eye, ear, throat, or mouth pain or symptoms. Denies nasal or sinus congestion or discharge. Denies throat, tongue, or mouth swelling or difficulty swallowing. CARDIOVASCULAR: Denies chest pain. Denies palpitations or racing or irregular heart beat. Denies ankle edema. RESPIRATORY: admits to sob, productive cough GASTROINTESTINAL: Denies abdominal pain or distention. Denies nausea, vomiting , or diarrhea. Denies blood in vomitus, stools, or per rectum. Denies black, tarry stools. Denies constipation. GENITOURINARY: Denies difficulty urinating, painful urination, burning, frequency, blood in urine, or discharge. FEMALE GENITOURINARY: Denies vaginal bleeding, heavy or abnormal periods, irregular periods. Denies vaginal discharge or odor. MUSCULOSKELETAL: Denies back or neck pain or stiffness. Denies joint pain or swelling. SKIN: Denies rash, lesions or sores. HEMATOLOGIC : Denies easy bruising or bleeding. LYMPHATIC: Denies swollen, enlarged glands. NEUROLOGICAL: Denies confusion or altered mental status. Denies passing out or loss of consciousness. Denies dizziness or lightheadedness. Denies headache. Denies weakness or paralysis or loss of use of either side. Denies problems with gait or speech. Denies sensory loss, numbness, or tingling. Denies seizures. PSYCHIATRIC: Denies anxiety or stress. Denies depression, suicidal ideation, or homicidal ideation. ALL OTHER SYSTEMS REVIEWED AND NEGATIVE. PHYSICAL EXAMINATION: GENERAL: Well-appearing, well-nourished and in no acute distress. HEAD: Atraumatic, normocephalic. EYES: Pupils equal round and reactive to light, extraocular movements intact, conjunctiva are normal. ENT: Nares patent, oropharynx clear without exudates. Moist mucous membranes. NECK: Normal range of motion, supple without lymphadenopathy LUNGS: coarse rhonchi all throughout HEART: Regular rate and rhythm without murmurs ABDOMEN: Soft, nontender, nondistended abdomen. No guarding, no rebound. No masses appreciated. Female : deferred Musculoskeletal: Normal range of motion, no pitting or edema. No cyanosis. NEUROLOGICAL: Cranial nerves grossly intact. Normal speech, normal gait. Normal sensory, motor exams PSYCH: Normal mood, normal affect. SKIN: chronic venous stasis legs Dictation was performed using [employer] voice recognition software Physical Exam - Vital signs Vitals: Temp Pulse Resp Pulse Ox 98.7 F 76 18 97 06/02/17 10:10 06/02/17 10:10 06/02/17 10:10 06/02/17 10:10 Course - Re-evaluation Re-evalutation: 06/02/17 10:23 Patient has not been improving on her antibiotics, septic workup pending 06/02/17 14:50 Patient's evaluation is quite benign, vital signs are stable, patient is in no distress, overall she looks well, I have had a very long discussion with her and I noted that she does have a UTI, I will start the patient on Macrobid based on previous E. coli microbiology results, patient's vital signs have been stable throughout, she does not ambulate at baseline, I did explain that given her presentation I will treat her symptomatically 06/02/17 14:51 After performing a Medical Screening Examination, I estimate there is LOW risk for ACUTE CORONARY SYNDROME, PULMONARY EMBOLI, RESPIRATORY FAILURE, SEPSIS OR MENINGITIS, thus I consider the discharge disposition reasonable. I have reevaluated this patient multiple times and no significant life threatening changes are noted. The patient and I have discussed the diagnosis and risks, and we agree with discharging home with close follow-up. We also discussed returning to the Emergency Department immediately if new or worsening symptoms occur. We have discussed the symptoms which are most concerning (e.g., changing or worsening pain, trouble swallowing or breathing, neck stiffness, fever) that necessitate immediate return. - Vital Signs Vital signs: Temp Pulse Resp BP Pulse Ox 98.3 F 76 14 130/72 H 98 06/02/17 14:16 06/02/17 10:10 06/02/17 14:00 06/02/17 14:16 06/02/17 14:00 - Laboratory Result Diagrams: 06/02/17 10:18 06/02/17 10:18 Laboratory results interpreted by me: 06/02/17 06/02/17 06/02/17 10:18 10:18 10:27 Hgb 11.0 L Hct 33.5 L RDW 15.3 H Seg Neutrophils % 79.9 H Lymphocytes % 8.7 L BUN 22 H Est GFR ( Amer) 53 L Est GFR (Non-Af Amer) 44 L Glucose 199 H POC Glucose Urine Nitrite POSITIVE H Ur Leukocyte Esterase TRACE H Urine Ascorbic Acid 40 H 06/02/17 10:38 Hgb Hct RDW Seg Neutrophils % Lymphocytes % BUN Est GFR ( Amer) Est GFR (Non-Af Amer) Glucose POC Glucose 197 H Urine Nitrite Ur Leukocyte Esterase Urine Ascorbic Acid Discharge - Discharge Clinical Impression: COPD exacerbation UTI (urinary tract infection) Qualifiers: Urinary tract infection type: acute cystitis Hematuria presence: without hematuria Qualified Code(s): N30.00 - Acute cystitis without hematuria Condition: Stable Disposition: HOME, SELF-CARE Instructions: Urinary Tract Infection ([facility]) Prescriptions: Hydrocodone Bit/Homatropine [Hycodan 5-1.5 mg Tablet] 1 tab PO Q4HP PRN #24 tablet PRN Reason: Nitrofurantoin Monohyd/M-Cryst [Macrobid 100 mg Capsule] 100 mg PO BID #14 capsule Prednisone [Deltasone 20 mg Tablet] 3 tab PO DAILY 5 Days tablet Referrals: MUSA HODGSON MD [Primary Care Provider] - Follow up tomorrow
[2017-06-02 10:38] LABS: VENOUS BLOOD BASE EXCESS 0.7 mmol/L; VENOUS BLOOD HCO3 27.3 mmol/L (20-32); VENOUS BLOOD PCO2 52.3 mmHg (35-63); VENOUS BLOOD PH 7.34 (7.30-7.42)
[2017-06-02 10:39] LABS: ABSOLUTE EOSINOPHILS # (AUTO) 0.2 10^3/uL (0.0-0.6); ABSOLUTE LYMPHOCYTES (AUTO) 0.8 10^3/uL (0.5-4.7); ABSOLUTE MONOCYTES (AUTO) 0.8 10^3/uL (0.1-1.4); ABSOLUTE NEUT (AUTO) 7.2 10^3/uL (1.7-8.2); BASOPHILS % (AUTO) 0.5 % (0-2); EOSINOPHILS % (AUTO) 1.7 % (0-6); HEMATOCRIT 33.5 % (36.0-47.0); HGB HCT DIFFERENCE -0.5; LYMPHOCYTES % (AUTO) 8.7 % (13-45); MEAN CORPUSCULAR HEMOGLOBIN 29.1 pg (27.0-33.4); MEAN CORPUSCULAR VOLUME 88 fl (80-97); MONOCYTES % (AUTO) 9.2 % (3-13); RED CELL DISTRIBUTION WIDTH 15.3 % (11.5-14.0); SEGMENTED NEUTROPHILS % (AUTO) 79.9 % (42-78); WHITE BLOOD COUNT 9.1 10^3/uL (4.0-10.5)
--- NOTE | 2017-06-02 10:40 | RADIOLOGY REPORT (SQ) ---
EXAM DESCRIPTION: CHEST SINGLE VIEW COMPLETED DATE/TIME: 06/02/2017 10:20 am REASON FOR STUDY: bed 2 sepsis protocol COMPARISON: 04/17/2017 NUMBER OF VIEWS: One view. TECHNIQUE: Single frontal radiographic view of the chest acquired. LIMITATIONS: None. FINDINGS: LUNGS AND PLEURA: No opacities, masses or pneumothorax. No pleural effusion. MEDIASTINUM AND HILAR STRUCTURES: No masses. Contour normal. HEART AND VASCULAR STRUCTURES: Heart enlarged without failure. Normal vasculature. BONES: No acute findings. HARDWARE: None in the chest. OTHER: No other significant finding. IMPRESSION: Cardiomegaly. No acute findings. TECHNICAL DOCUMENTATION: JOB ID: [id number] [employer]- All Rights Reserved
[2017-06-02 10:52] LABS: ALANINE AMINOTRANSFERASE 27 U/L (9-52); ALBUMIN 3.8 g/dL (3.5-5.0); ALKALINE PHOSPHATASE 114 U/L (38-126); ANION GAP 14 (5-19); ASPARTATE AMINO TRANSFERASE 17 U/L (14-36); BILIRUBIN,DIRECT 0.4 mg/dL (0.0-0.4); BILIRUBIN,TOTAL 0.5 mg/dL (0.2-1.3); BLOOD UREA NITROGEN 22 mg/dL (7-20); CALCIUM 9.3 mg/dL (8.4-10.2); CARBON DIOXIDE 26 mmol/L (22-30); CHLORIDE 105 mmol/L (98-107); CREATININE RESULT 1.21 mg/dL (0.52-1.25); GLUCOSE 199 mg/dL (75-110); POTASSIUM 4.3 mmol/L (3.6-5.0); SODIUM 144.6 mmol/L (137-145); TOTAL PROTEIN 6.3 g/dL (6.3-8.2)
[2017-06-02 10:59] LABS: APPEARANCE,URINE SLIGHTLY-CLOUDY; BILIRUBIN,URINE NEGATIVE (NEGATIVE); GLUCOSE, URINE NEGATIVE (NEGATIVE); KETONES,URINE NEGATIVE (NEGATIVE); LEUKOCYTE ESTERASE,URINE TRACE (NEGATIVE); NITRITE,URINE POSITIVE (NEGATIVE); PROTEIN,URINE NEGATIVE (NEGATIVE); URINE SPECIFIC GRAVITY 1.015; UROBILINOGEN,URINE NEGATIVE mg/dL (<2.0)
[2017-06-02 11:01] LABS: BACTERIA,URINE 2+ /HPF; WBC,URINE 0-1 /HPF
[2017-06-02 11:04] LABS: PROTHROMBIN TIME 13.2 SEC (11.4-15.4)
[2017-06-02 14:17] VITALS: BP 130/72
--- NOTE | 2017-06-02 17:41 | EKG REPORT ---
SEVERITY:- ABNORMAL ECG - SINUS RHYTHM INCOMPLETE LEFT BUNDLE BRANCH BLOCK PROBABLE LEFT VENTRICULAR HYPERTROPHY : Confirmed by: Inocencio Aguilar MD 02-Jun-2017 17:41:13
== END 2017-06-02 14:17 | disposition home or self-care (01) ==
LOC: ER 10:07
DX: J44.1 Chronic obstructive pulmonary disease with (acute) exacerbation (principal); N30.00 Acute cystitis without hematuria; R06.02 Shortness of breath; R05 Cough; Z87.891 Personal history of nicotine dependence
CPT/HCPCS: 36415; 71010; 80053; 81001; 82803; 82962; 83605; 83880; 85025; 85610; 87040; 87086; 87088; 87186; 93005; 93010; 99285

== ENCOUNTER 2017-06-26 12:03 | Inpatient (IN) | payer MEDICARE, MEDICAID ==
[2017-06-26 12:35] LABS: ABSOLUTE LYMPHOCYTES (AUTO) 0.6 10^3/uL (0.5-4.7); ABSOLUTE MONOCYTES (AUTO) 0.3 10^3/uL (0.1-1.4); ABSOLUTE NEUT (AUTO) 9.2 10^3/uL (1.7-8.2); EOSINOPHILS % (AUTO) 0.1 % (0-6); HEMATOCRIT 36.7 % (36.0-47.0); HEMOGLOBIN 11.9 g/dL (12.0-15.5); LYMPHOCYTES % (AUTO) 5.7 % (13-45); MEAN CORPUSCULAR HEMOGLOBIN 28.8 pg (27.0-33.4); MEAN CORPUSCULAR HGB CONC 32.3 g/dL (32.0-36.0); MEAN CORPUSCULAR VOLUME 89 fl (80-97); MONOCYTES % (AUTO) 2.9 % (3-13); PLATELET COUNT 186 10^3/uL (150-450); RED BLOOD COUNT 4.12 10^6/uL (3.72-5.28); SEGMENTED NEUTROPHILS % (AUTO) 91.3 % (42-78); TOTAL CELLS COUNTED % (AUTO) 100 %
[2017-06-26 12:47] LABS: ALANINE AMINOTRANSFERASE 28 U/L (9-52); ALBUMIN 3.9 g/dL (3.5-5.0); ALKALINE PHOSPHATASE 125 U/L (38-126); ANION GAP 11 (5-19); ASPARTATE AMINO TRANSFERASE 14 U/L (14-36); BILIRUBIN,DIRECT 0.4 mg/dL (0.0-0.4); BILIRUBIN,TOTAL 0.4 mg/dL (0.2-1.3); BLOOD UREA NITROGEN 24 mg/dL (7-20); CALCIUM 9.9 mg/dL (8.4-10.2); CARBON DIOXIDE 28 mmol/L (22-30); CHLORIDE 103 mmol/L (98-107); CREATINE KINASE 21 U/L (30-135); GLUCOSE 246 mg/dL (75-110); POTASSIUM 5.3 mmol/L (3.6-5.0); SODIUM 141.7 mmol/L (137-145); TOTAL PROTEIN 6.3 g/dL (6.3-8.2)
[2017-06-26 13:05] LABS: CREATINE KINASE MB 1.74 ng/mL (<4.55); NT PRO BNP 227 pg/mL (5-900)
[2017-06-26 13:06] LABS: TROPONIN I < 0.012 ng/mL
--- NOTE | 2017-06-26 13:19 | RADIOLOGY REPORT (SQ) ---
EXAM DESCRIPTION: CHEST SINGLE VIEW COMPLETED DATE/TIME: 06/26/2017 1:10 pm REASON FOR STUDY: SOB COMPARISON: 06/02/2017. NUMBER OF VIEWS: One view. TECHNIQUE: Single frontal radiographic view of the chest acquired. LIMITATIONS: None. FINDINGS: LUNGS AND PLEURA: No opacities, masses or pneumothorax. No pleural effusion. MEDIASTINUM AND HILAR STRUCTURES: No masses. Contour normal. HEART AND VASCULAR STRUCTURES: Heart enlarged without failure. Normal vasculature. BONES: No acute findings. Severe chronic changes in the shoulders. HARDWARE: None in the chest. OTHER: No other significant finding. IMPRESSION: HEART ENLARGED WITHOUT FAILURE. NO OTHER SIGNIFICANT RADIOGRAPHIC FINDING IN THE CHEST. TECHNICAL DOCUMENTATION: JOB ID: [id number] [employer]- All Rights Reserved
[2017-06-26] MEDS ORDERED: METHYLPREDNISOLONE INJ 125 MG/2 ML SDV IV ONE (13:20)
[2017-06-26] MEDS ORDERED: ALBUTEROL SULFATE 0.083% NEB 2.5 MG/3 ML AMPUL NEB ONE ×2 (13:20→15:39)
--- NOTE | 2017-06-26 13:21 | ER Document Report ---
ED General - General Mode of Arrival: Medic Information source: Patient TRAVEL OUTSIDE OF THE [place] IN LAST 30 DAYS: No - HPI Patient complains to provider of: Shortness of Breath Onset: Other - 6 weeks ago Associated symptoms: Other - see notes above <TIFFANIE ARANA - Last Filed: 06/26/17 19:10> <CHANDRA URIBE - Last Filed: 06/26/17 19:17> - General Chief Complaint: Breathing Difficulty Stated Complaint: BREATHING DIFFICULTY Time Seen by Provider: 06/26/17 12:55 Notes: 72 year old female with history of COPD (oxygen dependent on 2L), CHF, and atrial fibrillation presents to the ED complaining of shortness of breath that started 6 weeks ago, but exacerbated 3 days ago. 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 Patient is additionally complaining of left mid to upper back pain and states that she had similar pain when she had pneumonia in the past. Patient also has a productive cough (with no blood), nausea, dysuria, and chest pain with deep breathing. Patient denies fever. Patient normally uses 2L of oxygen at home, but has had to use 3L more recently. PCP: Dr. Borrego (TIFFANIE ARANA) - Related Data Allergies/Adverse Reactions: Sulfa (Sulfonamide Antibiotics) Allergy (Intermediate, Verified 06/26/17 12:49) adhesive tape Allergy (Verified 06/26/17 12:49) atorvastatin calcium [From Lipitor] Allergy (Verified 06/26/17 12:49) celecoxib [From Celebrex] Allergy (Verified 06/26/17 12:49) Past Medical History - General Information source: Patient - Social History Smoking Status: Former Smoker Chew tobacco use (# tins/day): No Drug Abuse: None Family History: Arthritis, CAD, CVA, DM, Hypertension Patient has suicidal ideation: No Patient has homicidal ideation: No - Past Medical History Cardiac Medical History: Reports: Hx Atrial Fibrillation, Hx Congestive Heart Failure - Diastolic dysfunction, Hx Heart Attack, Hx Hypertension - essential, Hx Pulmonary Embolism, Hx Heart Murmur Denies: Hx Coronary Artery Disease, Hx DVT, Hx Hypercholesterolemia, Hx Peripheral Vascular Disease Pulmonary Medical History: Reports: Hx Asthma, Hx Bronchitis, Hx COPD, Hx Pneumonia - Recurrent MRSA pneumonia., Hx Sleep Apnea - Uses C Pap Denies: Hx Tuberculosis Neurological Medical History: Denies: Hx Seizures Endocrine Medical History: Reports: Hx Diabetes Mellitus Type 2. Denies: Hx Diabetes Mellitus Type 1, Hx Hyperthyroidism, Hx Hypothyroidism Renal/ Medical History: Reports: Hx Renal Insufficiency. Denies: Hx Peritoneal Dialysis GI Medical History: Reports: Hx Gastroesophageal Reflux Disease, Hx Hiatal Hernia. Denies: Hx Cirrhosis, Hx Hepatitis Musculoskeltal Medical History: Reports Hx Arthritis, Reports Hx Fibromyalgia, Reports Hx Gout, Reports Hx Muscle Weakness Skin Medical History: Denies Hx Eczema, Denies Hx Psoriasis Psychiatric Medical History: Reports: Hx Anxiety, Hx Depression Infectious Medical History: Reports: Hx MRSA. Denies: Hx Hepatitis Past Surgical History: Reports: Hx Appendectomy, Hx Cholecystectomy, Hx Hysterectomy, Hx Orthopedic Surgery - Multiple left hip procedures, 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 - Immunizations Hx Diphtheria, Pertussis, Tetanus Vaccination: Yes Hx Pneumococcal Vaccination: 05/20/13 <TIFFANIE ARANA - Last Filed: 06/26/17 19:10> Review of Systems - Review of Systems Constitutional: No symptoms reported. denies: Fever EENT: No symptoms reported Cardiovascular: See HPI, Chest pain Respiratory: See HPI, Cough, Short of breath, Sputum. denies: Hemoptysis Gastrointestinal: See HPI, Nausea Genitourinary: See HPI, Burning, Dysuria Female Genitourinary: No symptoms reported Musculoskeletal: No symptoms reported Skin: No symptoms reported Hematologic/Lymphatic: No symptoms reported Neurological/Psychological: No symptoms reported <TIFFANIE ARANA - Last Filed: 06/26/17 19:10> Physical Exam <TIFFANIE ARANA - Last Filed: 06/26/17 19:10> <CHANDRA URIBE - Last Filed: 06/26/17 19:17> - Vital signs Vitals: Resp BP Pulse Ox 16 156/74 H 99 06/26/17 12:12 06/26/17 12:12 06/26/17 12:12 - Notes Notes: GENERAL: Alert, interacts well. HEAD: Normocephalic, atraumatic. EYES: Pupils equal, round, and reactive to light. Extraocular movements intact. ENT: Oral mucosa moist, tongue midline. NECK: Full range of motion. Supple. Trachea midline. LUNGS: Diffuse expiratory wheezing and right lower lobe rhonchi. No rales. Tachypnic. Appears short of breath. HEART: Regular rate and rhythm. No murmurs, gallops, or rubs. ABDOMEN: Soft. Bowel sounds present in all 4 quadrants. Mild diffuse abdominal tenderness to palpation. Mild distention. EXTREMITIES: Moves all 4 extremities spontaneously. Radial and dorsalis pedis pulses 2/4 bilaterally. No cyanosis. 1+ non-pitting edema bilaterally. Left leg is larger than right; appears chronic. NEUROLOGICAL: Alert and oriented x3. Normal speech. PSYCH: Normal affect, normal mood. SKIN: Warm and dry. No rashes or lesions noted. (TIFFANIE ARANA) Course - Laboratory Result Diagrams: 06/26/17 12:15 06/26/17 12:15 - Consults Dr. Childers Time consulted: 17:24 <TIFFANIE ARANA - Last Filed: 06/26/17 19:10> - Laboratory Result Diagrams: 06/26/17 12:15 06/26/17 12:15 <CHANDRA URIBE - Last Filed: 06/26/17 19:17> - Re-evaluation Re-evalutation: 06/26/17 15:40 Patient was rechecked and still has significant wheezing and appears more short of breath after the breathing treatment. Two more treatments will be given and if the patient still does not have relief she will be admitted. (TIFFANIE ARANA) 06/26/17 17:39 CBC shows anemia with hemoglobin 11.9, no leukocytosis, venous blood gas does not show any significant CO2 retention somewhat elevated 54.8 but not unexpected , no acidosis, chemistries show elevated glucose consistent with diabetes, mild renal failure, potassium somewhat elevated at 5.3, cardiac enzymes negative, proBNP unremarkable, chest x-ray shows no acute process. Despite being on Levaquin at the residential, multiple breathing treatments here and steroids here patient is not improving, still appears quite short of breath. Discussed with patient that she will need to be admitted for further breathing treatments and starting azithromycin. Discussed this is Dr. Childers the hospitalist who agreed to admit the patient to his service. 06/26/17 17:40 Patient just now began complaining of dysuria, patient will have straight cath performed to look for UTI and cultures will be sent for sensitivities. 06/26/17 17:41 Hospitalist will continue to follow hypertension as an inpatient. (CHANDRA URIBE) - Vital Signs Vital signs: Temp Pulse Resp BP Pulse Ox 15 144/75 H 100 06/26/17 15:00 06/26/17 14:02 06/26/17 15:00 - Laboratory Laboratory results interpreted by me: 06/26/17 06/26/17 12:15 12:15 Hgb 11.9 L RDW 15.0 H Seg Neutrophils % 91.3 H Lymphocytes % 5.7 L Monocytes % 2.9 L Absolute Neutrophils 9.2 H Potassium 5.3 H BUN 24 H Est GFR (Non-Af Amer) 52 L Glucose 246 H Creatine Kinase 21 L - EKG Interpretation by Me Additional EKG results interpreted by me: 06/26/17 17:40 EKG shows sinus rhythm at a rate of 65, incomplete left bundle branch block, no ST segment elevations or depressions, no T-wave inversions, nonspecific T-wave flattening in V2, poor R-wave progression per my interpretation. (CHANDRA URIBE) - Consults Dr. Childers Reason for consultation: 06/26/17 17:24 Patient was discussed with Dr. Childers who accepts to admit the patient. (TIFFANIE ARANA) Discharge <TIFFANIE ARANA - Last Filed: 06/26/17 19:10> - Discharge Admitting Provider: Hospitalist - [facility] Unit Admitted: [facility] <CHANDRA URIBE - Last Filed: 06/26/17 19:17> - Discharge Clinical Impression: Acute bronchitis with chronic obstructive pulmonary disease (COPD), Morbid obesity with BMI of 40.0-44.9, adult Hypertension Qualifiers: Hypertension type: essential hypertension Qualified Code(s): I10 - Essential ( primary) hypertension Condition: Fair Disposition: ADMITTED INPATIENT Scribe Attestation: 06/26/17 19:17 I personally performed the services described in the documentation, reviewed and edited the documentation which was dictated to the scribe in my presence, and it accurately records my words and actions. (CHANDRA URIBE) Scribe Documentation - Scribe Written by Scribe:: April Kearns, 06/26/2017 [id number] acting as scribe for :: Moshe <TIFFANIE ARANA - Last Filed: 06/26/17 19:10>
[2017-06-26 15:31] LABS: VENOUS BLOOD HCO3 31.5 mmol/L (20-32); VENOUS BLOOD PCO2 54.8 mmHg (35-63); VENOUS BLOOD PH 7.38 (7.30-7.42)
[2017-06-26] MEDS ORDERED: IPRATROPIUM/ALBUTEROL 0.5-2.5 MG/3 ML AMPUL NEB ONE (15:39)
[2017-06-26] MEDS ORDERED: AZITHROMYCIN INJ 500 MG VIAL IV ONE (17:22)
[2017-06-26] MEDS ORDERED: MAG HYDROX/AL HYDROX/SIMETH SUSP 30 ML UDCUP PO PRN (18:11)
[2017-06-26] MEDS ORDERED: ONDANSETRON HCL INJ/PF 4 MG/2 ML SDV IV PRN (18:11)
[2017-06-26] MEDS ORDERED: ACETAMINOPHEN 325 MG TABLET PO PRN ×2 (18:11→22:09)
--- NOTE | 2017-06-26 18:36 | PDOC H&P ---
History of Present Illness Admission Date/PCP: 06/26/17 18:04 Patient complains of: Shortness of breath History of Present Illness: PORSHA WALDRON is a 72 year old female with a history of chronic respiratory failure with hypoxia, 02 and steroid-dependent COPD, and morbid obesity who presents to the emergency department with a several day history of shortness of breath and cough. She states that she has been feeling poorly for several months. Her symptoms worsen in the last 3 days. She has been using her BiPAP more frequently as well as inhaled bronchodilators without significant improvement in her symptoms. She did not report fever or chills. Her cough has been nonproductive. He did not report chest pain or palpitations. She did not report GI symptoms either. She lives at [facility]. She is essentially bedbound. Past Medical History Cardiac Medical History: Reports: Atrial Fibrillation, Congestive Heart Failure - Diastolic dysfunction, Myocardial Infarction, Hypertension - essential, Pulmonary Embolism, Heart Murmur Denies: Coronary Artery Disease, DVT, Hyperlipidema, Peripheral Vascular Disease Pulmonary Medical History: Reports: Asthma, Bronchitis, Chronic Obstructive Pulmonary Disease (COPD), Pneumonia - Recurrent MRSA pneumonia., Sleep Apnea - Uses C Pap Denies: Tuberculosis Neurological Medical History: Denies: Seizures Endocrine Medical History: Reports: Diabetes Mellitus Type 2 Denies: Diabetes Mellitus Type 1, Hyperthyroidism, Hypothyroidism GI Medical History: Reports: Gastroesophageal Reflux Disease, Hiatal Hernia Denies: Cirrhosis, Hepatitis Musculoskeltal Medical History: Reports: Arthritis, Fibromyalgia, Gout Skin Medical History: Denies: Eczema, Psoriasis Psychiatric Medical History: Reports: Depression Hematology: Reports: Anemia Infectious Medical History: Reports: Methicillin-Resistant Staph Aureus Past Surgical History Past Surgical History: Reports: Appendectomy, Cholecystectomy, Hysterectomy, Orthopedic Surgery - Multiple left hip procedures, 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 Social History Information Source: Patient Lives with: Custodial Smoking Status: Never Smoker Frequency of Alcohol Use: None Hx Recreational Drug Use: No Drugs: None Hx Prescription Drug Abuse: No - Advance Directive Resuscitation Status: Do Not Resuscitate Family History Family History: Arthritis, CAD, CVA, DM, Hypertension Parental Family History Reviewed: No Children Family History Reviewed: No Sibling(s) Family History Reviewed.: No Medication/Allergy Allergies/Adverse Reactions: Sulfa (Sulfonamide Antibiotics) Allergy (Intermediate, Verified 06/26/17 12:49) adhesive tape Allergy (Verified 06/26/17 12:49) atorvastatin calcium [From Lipitor] Allergy (Verified 06/26/17 12:49) celecoxib [From Celebrex] Allergy (Verified 06/26/17 12:49) Review of Systems Constitutional: PRESENT: as per HPI Cardiovascular: ABSENT: chest pain, edema, palpitations Respiratory: PRESENT: cough, dyspnea. ABSENT: hemoptysis, sputum Gastrointestinal: PRESENT: as per HPI Musculoskeletal: PRESENT: deformity, muscle weakness Neurological: ABSENT: abnormal gait, abnormal speech, confusion, dizziness, focal weakness, syncope Psychiatric: ABSENT: anxiety, depression, homidical ideation, suicidal ideation Physical Exam Vital Signs: Temp Pulse Resp BP Pulse Ox 15 144/75 H 100 06/26/17 15:00 06/26/17 14:02 06/26/17 15:00 General appearance: PRESENT: no acute distress, morbidly obese Head exam: PRESENT: atraumatic, normocephalic Eye exam: PRESENT: EOMI, PERRLA Mouth exam: PRESENT: moist Teeth exam: PRESENT: poor dentation Neck exam: PRESENT: full ROM, JVD Respiratory exam: PRESENT: rhonchi, symmetrical, unlabored. ABSENT: accessory muscle use Cardiovascular exam: PRESENT: RRR. ABSENT: diastolic murmur, rubs, systolic murmur GI/Abdominal exam: PRESENT: normal bowel sounds, soft. ABSENT: distended, guarding, mass, organolmegaly, rebound, tenderness Rectal exam: PRESENT: deferred Extremities exam: PRESENT: pedal edema - Trace Neurological exam: PRESENT: alert, awake, oriented to person, oriented to place , oriented to time, oriented to situation, CN II-XII grossly intact. ABSENT: motor sensory deficit Psychiatric exam: PRESENT: appropriate affect, normal mood. ABSENT: homicidal ideation, suicidal ideation Skin exam: PRESENT: dry, intact, warm. ABSENT: cyanosis, rash Results Laboratory Results: Labs- All tests 24 hr 06/26/17 06/26/17 06/26/17 12:15 12:15 12:15 WBC 10.0 RBC 4.12 Hgb 11.9 L Hct 36.7 MCV 89 MCH 28.8 MCHC 32.3 RDW 15.0 H Plt Count 186 Seg Neutrophils % 91.3 H Lymphocytes % 5.7 L Monocytes % 2.9 L Eosinophils % 0.1 Basophils % 0.0 Absolute Neutrophils 9.2 H Absolute Lymphocytes 0.6 Absolute Monocytes 0.3 Absolute Eosinophils 0.0 Absolute Basophils 0.0 VBG pH VBG pCO2 VBG HCO3 VBG Base Excess Sodium 141.7 Potassium 5.3 H Chloride 103 Carbon Dioxide 28 Anion Gap 11 BUN 24 H Creatinine 1.03 Est GFR ( Amer) > 60 Est GFR (Non-Af Amer) 52 L Glucose 246 H Calcium 9.9 Total Bilirubin 0.4 Direct Bilirubin 0.4 Neonat Total Bilirubin Not Reportable Neonat Direct Bilirubin Not Reportable Neonat Indirect Bili Not Reportable AST 14 ALT 28 Alkaline Phosphatase 125 Creatine Kinase 21 L CK-MB (CK-2) 1.74 Troponin I < 0.012 NT-Pro-B Natriuret Pep 227 Total Protein 6.3 Albumin 3.9 06/26/17 15:04 WBC RBC Hgb Hct MCV MCH MCHC RDW Plt Count Seg Neutrophils % Lymphocytes % Monocytes % Eosinophils % Basophils % Absolute Neutrophils Absolute Lymphocytes Absolute Monocytes Absolute Eosinophils Absolute Basophils VBG pH 7.38 VBG pCO2 54.8 VBG HCO3 31.5 VBG Base Excess 5.0 Sodium Potassium Chloride Carbon Dioxide Anion Gap BUN Creatinine Est GFR ( Amer) Est GFR (Non-Af Amer) Glucose Calcium Total Bilirubin Direct Bilirubin Neonat Total Bilirubin Neonat Direct Bilirubin Neonat Indirect Bili AST ALT Alkaline Phosphatase Creatine Kinase CK-MB (CK-2) Troponin I NT-Pro-B Natriuret Pep Total Protein Albumin Impressions: Chest X-Ray 06/26/17 12:05 IMPRESSION: HEART ENLARGED WITHOUT FAILURE. NO OTHER SIGNIFICANT RADIOGRAPHIC FINDING IN THE CHEST. Assessment & Plan - Diagnosis (1) Morbid obesity with BMI of 40.0-44.9, adult Is this a current diagnosis for this admission?: Yes (2) Acute and chronic respiratory failure Qualifiers: Respiratory failure complication: hypoxia Qualified Code(s): J96.21 - Acute and chronic respiratory failure with hypoxia Is this a current diagnosis for this admission?: Yes Plan: Continue oxygen at 2 L via nasal cannula. Start Solu-Medrol 60 mg IV every 6. Continue inhaled bronchodilators. (3) COPD exacerbation Is this a current diagnosis for this admission?: Yes Plan: See above. 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 I suspect that her blood sugars will be a bit more elevated now that she is on IV steroids. (6) Diastolic dysfunction Is this a current diagnosis for this admission?: Yes (7) Do not resuscitate Is this a current diagnosis for this admission?: Yes (8) Obstructive sleep apnea Is this a current diagnosis for this admission?: Yes (9) Opiate dependence, continuous Is this a current diagnosis for this admission?: Yes (10) Physical debility Is this a current diagnosis for this admission?: Yes - Time Time Spent: Greater than 70 Minutes Medications reviewed and adjusted accordingly: Yes Anticipated discharge: SNF Within: within 72 hours
[2017-06-26 18:44] LABS: APPEARANCE,URINE SLIGHTLY-CLOUDY; BILIRUBIN,URINE NEGATIVE (NEGATIVE); COLOR,URINE YELLOW; GLUCOSE, URINE NEGATIVE (NEGATIVE); KETONES,URINE NEGATIVE (NEGATIVE); LEUKOCYTE ESTERASE,URINE SMALL (NEGATIVE); NITRITE,URINE NEGATIVE (NEGATIVE); PROTEIN,URINE NEGATIVE (NEGATIVE); URINE SPECIFIC GRAVITY 1.017; UROBILINOGEN,URINE NEGATIVE mg/dL (<2.0)
[2017-06-26] MEDS ORDERED: LEVALBUTEROL HCL NEB 0.63 MG/3 ML AMPUL NEB SCH (20:00)
[2017-06-26] MEDS ORDERED: IPRATROPIUM/ALBUTEROL 0.5-2.5 MG/3 ML AMPUL NEB SCH (20:00)
[2017-06-26] MEDS ORDERED: BENZOCAINE/MENTHOL SORE THROAT LOZENGE PO PRN (22:09)
[2017-06-26] MEDS ORDERED: (PENDING PHARMACY ID) (Menthol [Biofreeze] 1 APPLIC) TOP PRN (22:09)
[2017-06-26] MEDS ORDERED: DIPHENHYDRAMINE HCL 25 MG CAPSULE PO PRN (22:09)
[2017-06-26] MEDS ORDERED: MAGNESIUM HYDROXIDE SUSP 30 ML UDCUP PO PRN (22:09)
[2017-06-26] MEDS: METHYLPREDNISOLONE INJ 125 MG/2 ML SDV IV SCH (22:35)
[2017-06-26] MEDS ORDERED: SENNOSIDES/DOCUSATE 8.6-50 MG 1 EACH TABLET PO ONE (23:00)
[2017-06-26] MEDS ORDERED: LEVALBUTEROL HCL NEB 0.63 MG/3 ML AMPUL NEB PRN (23:17)
[2017-06-26] MEDS: IPRATROPIUM/ALBUTEROL 0.5-2.5 MG/3 ML AMPUL NEB SCH (23:55)
[2017-06-26] MEDS ORDERED: DEXTROSE 40% GEL 15 GM TUBE PO PRN (23:58)
[2017-06-26] MEDS ORDERED: GLUCAGON,HUMAN RECOMB 1 MG INJ IM PRN (23:58)
[2017-06-26] MEDS ORDERED: DEXTROSE 50%-WATER SYRINGE 12.5 GM/25 ML DOSE IV PRN (23:58)
[2017-06-26] MEDS ORDERED: DEXTROSE 40% GEL 15 GM TUBE X 2 PO PRN (23:58)
[2017-06-26] MEDS ORDERED: DEXTROSE 50%-WATER SYRINGE 25 GM/50 ML DOSE IV PRN (23:58)
[2017-06-27] MEDS ORDERED: IPRATROPIUM/ALBUTEROL 0.5-2.5 MG/3 ML AMPUL NEB SCH
[2017-06-27] MEDS ORDERED: LEVALBUTEROL HCL NEB 0.63 MG/3 ML AMPUL NEB SCH
[2017-06-27] MEDS: INSULIN LISPRO 100 UNIT/ML 3 ML VIAL SUBCUT PRN ×5 (00:48→22:39)
[2017-06-27] MEDS: OXYCODONE HCL IR 5 MG TABLET PO PRN ×3 (03:52→21:57)
[2017-06-27] MEDS: IPRATROPIUM/ALBUTEROL 0.5-2.5 MG/3 ML AMPUL NEB SCH ×6 (04:12→23:59)
[2017-06-27 05:02] LABS: HEMATOCRIT 37.4 % (36.0-47.0); HEMOGLOBIN 12.2 g/dL (12.0-15.5); MEAN CORPUSCULAR HEMOGLOBIN 28.7 pg (27.0-33.4); MEAN CORPUSCULAR HGB CONC 32.6 g/dL (32.0-36.0); MEAN CORPUSCULAR VOLUME 88 fl (80-97); PLATELET COUNT 188 10^3/uL (150-450); RED BLOOD COUNT 4.24 10^6/uL (3.72-5.28); RED CELL DISTRIBUTION WIDTH 14.8 % (11.5-14.0); WHITE BLOOD COUNT 10.1 10^3/uL (4.0-10.5)
[2017-06-27 05:22] LABS: ALANINE AMINOTRANSFERASE 24 U/L (9-52); ALBUMIN 3.9 g/dL (3.5-5.0); ALKALINE PHOSPHATASE 116 U/L (38-126); ANION GAP 12 (5-19); ASPARTATE AMINO TRANSFERASE 13 U/L (14-36); BILIRUBIN,DIRECT 0.3 mg/dL (0.0-0.4); BILIRUBIN,TOTAL 0.3 mg/dL (0.2-1.3); BLOOD UREA NITROGEN 27 mg/dL (7-20); CALCIUM 10.6 mg/dL (8.4-10.2); CARBON DIOXIDE 27 mmol/L (22-30); CHLORIDE 102 mmol/L (98-107); GLUCOSE 269 mg/dL (75-110); MAGNESIUM 2.2 mg/dL (1.6-2.3); PHOSPHORUS 3.5 mg/dL (2.5-4.5); POTASSIUM 4.7 mmol/L (3.6-5.0); SODIUM 141.2 mmol/L (137-145); TOTAL PROTEIN 6.4 g/dL (6.3-8.2)
[2017-06-27] MEDS: DILTIAZEM HCL 60 MG TABLET PO SCH ×3 (05:33→21:57)
[2017-06-27] MEDS: METHYLPREDNISOLONE INJ 125 MG/2 ML SDV IV SCH ×3 (05:33→21:57)
[2017-06-27] MEDS: LANSOPRAZOLE 15 MG TAB.RAP.DR PO SCH (05:34)
[2017-06-27] MEDS: BENZONATATE 100 MG CAPSULE PO SCH ×3 (05:34→21:57)
[2017-06-27] MEDS: PREGABALIN 75 MG CAPSULE PO SCH ×3 (05:34→21:57)
[2017-06-27] MEDS: BUTALB/ACETAMINOPHEN/CAFFEINE 1 TAB EACH PO PRN (06:41)
[2017-06-27] MEDS: BUDESONIDE NEB 0.5 MG/2 ML AMPUL NEB SCH ×2 (07:38→19:34)
--- NOTE | 2017-06-27 07:57 | EKG REPORT ---
SEVERITY:- ABNORMAL ECG - SINUS RHYTHM INCOMPLETE LEFT BUNDLE BRANCH BLOCK PROBABLE LEFT VENTRICULAR HYPERTROPHY : Confirmed by: Yesenia Graham MD 27-Jun-2017 07:56:44
[2017-06-27] MEDS ORDERED: FUROSEMIDE 20 MG TABLET PO SCH (08:00)
[2017-06-27] MEDS ORDERED: (PENDING PHARMACY ID) (Linaclotide 145 MCG) PO SCH (08:00)
[2017-06-27] MEDS: ASPIRIN 81 MG TABLET, CHEWABLE PO SCH (08:05)
[2017-06-27] MEDS: LORATADINE 10 MG TABLET PO SCH (08:07)
[2017-06-27] MEDS ORDERED: ONDANSETRON HCL INJ/PF 4 MG/2 ML SDV IV PRN (09:30)
[2017-06-27] MEDS ORDERED: (PENDING PHARMACY ID) (Potassium Chloride [K-Tab Er] 40 MEQ) PO SCH (10:00)
[2017-06-27] MEDS ORDERED: (PENDING PHARMACY ID) (Lactulose [Enulose 10 Gm/15 Ml Oral Solution] 30 ML) PO SCH (10:00)
[2017-06-27] MEDS ORDERED: (PENDING PHARMACY ID) (Ketotifen Fumarate [Refresh] 1 DROP) OU SCH (10:00)
[2017-06-27] MEDS ORDERED: BUSPIRONE HCL 10 MG TABLET PO SCH (10:00)
[2017-06-27] MEDS: ENOXAPARIN SODIUM INJ 40 MG/0.4 ML DISP.SYRIN SUBCUT SCH (10:14)
[2017-06-27] MEDS: INSULIN DETEMIR 100 UNIT/ML 3 ML PEN SUBCUT SCH (10:14)
[2017-06-27] MEDS: ASCORBIC ACID 500 MG TABLET PO SCH ×2 (10:15→17:23)
[2017-06-27] MEDS: AZITHROMYCIN 250 MG TABLET PO SCH (10:15)
[2017-06-27] MEDS: BACLOFEN 10 MG TABLET PO SCH ×3 (10:16→17:28)
[2017-06-27] MEDS: FERROUS SULFATE 325 MG TABLET PO SCH ×2 (10:19→17:24)
[2017-06-27] MEDS: RANOLAZINE 500 MG TAB.SR.12H PO SCH ×2 (10:19→22:07)
[2017-06-27] MEDS: DOCUSATE SODIUM 100 MG CAPSULE PO SCH ×2 (10:19→17:24)
[2017-06-27] MEDS: DULOXETINE HCL 30 MG CAPSULE.DR PO SCH (10:20)
[2017-06-27] MEDS: FAMOTIDINE 20 MG TABLET PO SCH ×2 (10:20→17:24)
[2017-06-27] MEDS: FLUTICASONE NASAL SPRAY 50 MCG/SPRY 120 SPRAY/16 GM NASL SCH (10:21)
[2017-06-27] MEDS: LUBIPROSTONE 24 MCG CAPSULE PO SCH ×2 (10:22→17:23)
[2017-06-27] MEDS: FLUTICASONE PROPIONATE HFA 110 MCG/PUFF 12 GM MDI IH SCH ×2 (10:23→17:24)
[2017-06-27] MEDS: POLYVINYL ALCOHOL 1.4% OPH SOLN 15 ML OU SCH ×4 (10:23→22:08)
[2017-06-27] MEDS: METOPROLOL TARTRATE 25 MG TABLET PO SCH ×2 (10:25→21:57)
[2017-06-27] MEDS: LIDOCAINE 5% (700 MG) TRANSDERMAL ADH..PATCH TOP SCH (10:28)
[2017-06-27] MEDS: LACTULOSE SYRUP 20 GM/30 ML UDCUP PO SCH ×2 (10:33→17:31)
[2017-06-27] MEDS: POLYETHYLENE GLYCOL 3350 POWDER 17 GM/1 PACKET PO SCH (10:33)
[2017-06-27] MEDS ORDERED: FUROSEMIDE 40 MG TABLET PO ONE (16:00)
--- NOTE | 2017-06-27 16:47 | PDOC PROGRESS REPORT ---
Subjective Progress Note for:: 06/27/17 Subjective:: Not feeling much better today. Reason For Visit: ACUTE ON CHRONIC RESPIRATORY FAILURE WITH HYPOXIA Physical Exam Vital Signs: Temp Pulse Resp BP Pulse Ox 99.3 F 80 20 158/65 H 100 06/27/17 13:00 06/27/17 14:00 06/27/17 13:00 06/27/17 13:00 06/27/17 13:00 Intake & Output 06/26/17 06/27/17 06/28/17 06:59 06:59 06:59 Intake Total 760 592 Output Total 1400 1300 Balance -640 -708 Weight 100.5 kg General appearance: PRESENT: no acute distress, morbidly obese Head exam: PRESENT: atraumatic, normocephalic Eye exam: PRESENT: conjunctiva pink, EOMI, PERRLA Mouth exam: PRESENT: moist Neck exam: PRESENT: full ROM Respiratory exam: PRESENT: prolonged expiratory phas, unlabored, wheezes. ABSENT: accessory muscle use Cardiovascular exam: PRESENT: RRR. ABSENT: diastolic murmur, rubs, systolic murmur GI/Abdominal exam: PRESENT: normal bowel sounds, soft. ABSENT: distended, guarding, mass, organolmegaly, rebound, tenderness Extremities exam: PRESENT: +1 edema - pretibial, bilateral Neurological exam: PRESENT: alert, awake, oriented to person, oriented to place , oriented to time, oriented to situation, CN II-XII grossly intact. ABSENT: motor sensory deficit Psychiatric exam: PRESENT: appropriate affect, normal mood. ABSENT: homicidal ideation, suicidal ideation Skin exam: PRESENT: dry, intact, warm. ABSENT: cyanosis, rash Results Laboratory Results: 06/27/17 04:25 06/27/17 04:25 06/26/17 06/27/17 06/27/17 18:15 04:25 04:25 WBC 10.1 RBC 4.24 Hgb 12.2 Hct 37.4 MCV 88 MCH 28.7 MCHC 32.6 RDW 14.8 H Plt Count 188 Sodium 141.2 Potassium 4.7 Chloride 102 Carbon Dioxide 27 Anion Gap 12 BUN 27 H Creatinine 1.00 Est GFR ( Amer) > 60 Est GFR (Non-Af Amer) 54 L Glucose 269 H Calcium 10.6 H Phosphorus 3.5 Magnesium 2.2 Total Bilirubin 0.3 AST 13 L ALT 24 Alkaline Phosphatase 116 Total Protein 6.4 Albumin 3.9 Urine Color YELLOW Urine Appearance SLIGHTLY-CLOUDY Urine pH 5.0 Ur Specific [place] 1.017 Urine Protein NEGATIVE Urine Glucose (UA) NEGATIVE Urine Ketones NEGATIVE Urine Blood NEGATIVE Urine Nitrite NEGATIVE Ur Leukocyte Esterase SMALL H Urine WBC (Auto) 71 Urine RBC (Auto) 1 Impressions: Chest X-Ray 06/26/17 12:05 IMPRESSION: HEART ENLARGED WITHOUT FAILURE. NO OTHER SIGNIFICANT RADIOGRAPHIC FINDING IN THE CHEST. Assessment & Plan - Diagnosis (1) Acute and chronic respiratory failure Qualifiers: Respiratory failure complication: hypoxia Qualified Code(s): J96.21 - Acute and chronic respiratory failure with hypoxia Is this a current diagnosis for this admission?: Yes Plan: Continue oxygen at 2 L via nasal cannula. Continue Solu-Medrol 60 mg IV every 6 hours for another day. Begin taper tomorrow. Continue inhaled bronchodilators. (2) COPD exacerbation Is this a current diagnosis for this admission?: Yes Plan: See above. (3) Morbid obesity with BMI of 40.0-44.9, adult Is this a current diagnosis for this admission?: Yes Plan: Very difficult situation. Is unable to exercise. Her weight is debilitating. (4) Diabetes mellitus type II, controlled Qualifiers: Diabetes mellitus complication status: with hyperglycemia Diabetes mellitus group home insulin use: with terminal worker use Qualified Code(s): E11.65 - Type 2 diabetes mellitus with hyperglycemia; Z79.4 - terminal worker (current) use of insulin; Z79.4 - terminal worker (current) use of insulin; Z79.4 - terminal worker ( current) use of insulin; Z79.4 - [facility] (current) use of insulin Is this a current diagnosis for this admission?: Yes Plan: Continue insulin. I suspect that her blood sugars will be a bit more elevated now that she is on IV steroids. Should improve after we start to taper off the steroids. (5) Diastolic dysfunction Is this a current diagnosis for this admission?: Yes Plan: Stable. (6) MRSA (methicillin resistant Staphylococcus aureus) colonization Is this a current diagnosis for this admission?: Yes Plan: Continue contact isolation (7) Do not resuscitate Is this a current diagnosis for this admission?: Yes Plan: Continue (8) Obstructive sleep apnea Is this a current diagnosis for this admission?: Yes Plan: BiPAP at night. (9) Opiate dependence, continuous Is this a current diagnosis for this admission?: Yes Plan: Continue has previously prescribed (10) Physical debility Is this a current diagnosis for this admission?: Yes Plan: Stable (11) Polypharmacy Is this a current diagnosis for this admission?: Yes Plan: No change - Time Time Spent with patient: 25-34 minutes Medications reviewed and adjusted accordingly: Yes Anticipated discharge: SNF - Inpatient Certification Medical Necessity: Failure to Improve With Outpatient Therapy, Need for Nebulizer Therapy and Monitoring of Response
[2017-06-27] MEDS: FUROSEMIDE 20 MG TABLET PO SCH (17:23)
[2017-06-27] MEDS: BUSPIRONE HCL 10 MG TABLET PO SCH (21:57)
[2017-06-27] MEDS: SENNOSIDES/DOCUSATE 8.6-50 MG 1 EACH TABLET PO SCH (21:57)
[2017-06-27] MEDS ORDERED: (PENDING PHARMACY ID) (Melatonin [Melatonin] 10 MG) PO SCH (22:00)
[2017-06-27] MEDS: PHARMACY COMMUNICATION ORDER MC SCH (22:12)
[2017-06-28] MEDS: IPRATROPIUM/ALBUTEROL 0.5-2.5 MG/3 ML AMPUL NEB SCH ×5 (04:06→19:11)
[2017-06-28] MEDS: DILTIAZEM HCL 60 MG TABLET PO SCH ×3 (05:40→21:20)
[2017-06-28] MEDS: PREGABALIN 75 MG CAPSULE PO SCH ×3 (05:40→21:20)
[2017-06-28] MEDS: LANSOPRAZOLE 15 MG TAB.RAP.DR PO SCH (05:40)
[2017-06-28] MEDS: METHYLPREDNISOLONE INJ 125 MG/2 ML SDV IV SCH ×2 (05:40→13:25)
[2017-06-28] MEDS: BENZONATATE 100 MG CAPSULE PO SCH ×3 (05:40→21:20)
[2017-06-28] MEDS: FUROSEMIDE 40 MG TABLET PO SCH (05:40)
[2017-06-28] MEDS: BUDESONIDE NEB 0.5 MG/2 ML AMPUL NEB SCH ×2 (07:56→19:11)
[2017-06-28] MEDS ORDERED: FUROSEMIDE 40 MG TABLET PO SCH (08:00)
[2017-06-28] MEDS: RANOLAZINE 500 MG TAB.SR.12H PO SCH ×2 (09:37→21:20)
[2017-06-28] MEDS: INSULIN LISPRO 100 UNIT/ML 3 ML VIAL SUBCUT PRN ×3 (09:38→18:46)
[2017-06-28] MEDS: INSULIN DETEMIR 100 UNIT/ML 3 ML PEN SUBCUT SCH (09:39)
[2017-06-28] MEDS: ASPIRIN 81 MG TABLET, CHEWABLE PO SCH (09:39)
[2017-06-28] MEDS: FAMOTIDINE 20 MG TABLET PO SCH ×2 (09:39→18:42)
[2017-06-28] MEDS: DULOXETINE HCL 30 MG CAPSULE.DR PO SCH (09:39)
[2017-06-28] MEDS: BACLOFEN 10 MG TABLET PO SCH ×3 (09:40→18:42)
[2017-06-28] MEDS: ASCORBIC ACID 500 MG TABLET PO SCH ×2 (09:40→18:41)
[2017-06-28] MEDS: METOPROLOL TARTRATE 25 MG TABLET PO SCH ×2 (09:40→21:19)
[2017-06-28] MEDS: FERROUS SULFATE 325 MG TABLET PO SCH ×2 (09:40→18:42)
[2017-06-28] MEDS: DOCUSATE SODIUM 100 MG CAPSULE PO SCH ×2 (09:41→18:42)
[2017-06-28] MEDS: BUTALB/ACETAMINOPHEN/CAFFEINE 1 TAB EACH PO PRN (09:41)
[2017-06-28] MEDS: LORATADINE 10 MG TABLET PO SCH (09:42)
[2017-06-28] MEDS: LUBIPROSTONE 24 MCG CAPSULE PO SCH ×2 (09:42→18:42)
[2017-06-28] MEDS: AZITHROMYCIN 250 MG TABLET PO SCH (09:43)
[2017-06-28] MEDS: BUSPIRONE HCL 10 MG TABLET PO SCH ×2 (09:43→21:20)
[2017-06-28] MEDS: POLYETHYLENE GLYCOL 3350 POWDER 17 GM/1 PACKET PO SCH (09:44)
[2017-06-28] MEDS: LIDOCAINE 5% (700 MG) TRANSDERMAL ADH..PATCH TOP SCH (09:45)
[2017-06-28] MEDS: FLUTICASONE PROPIONATE HFA 110 MCG/PUFF 12 GM MDI IH SCH ×2 (09:45→18:43)
[2017-06-28] MEDS: LACTULOSE SYRUP 20 GM/30 ML UDCUP PO SCH ×2 (09:46→18:41)
[2017-06-28] MEDS: FLUTICASONE NASAL SPRAY 50 MCG/SPRY 120 SPRAY/16 GM NASL SCH (09:46)
[2017-06-28] MEDS: POLYVINYL ALCOHOL 1.4% OPH SOLN 15 ML OU SCH ×4 (09:46→21:24)
[2017-06-28] MEDS: ENOXAPARIN SODIUM INJ 40 MG/0.4 ML DISP.SYRIN SUBCUT SCH (09:46)
[2017-06-28] MEDS: OXYCODONE HCL IR 5 MG TABLET PO PRN ×2 (13:24→20:06)
--- NOTE | 2017-06-28 14:16 | PDOC PROGRESS REPORT ---
Subjective Progress Note for:: 06/28/17 Subjective:: She still has a congested cough. Is concerned about her urine culture growing CRE. However, this is not new for her. She is agreeable to removing the Barton catheter. Reason For Visit: ACUTE ON CHRONIC RESPIRATORY FAILURE WITH HYPOXIA Physical Exam Vital Signs: Temp Pulse Resp BP Pulse Ox 98.3 F 66 18 151/80 H 100 06/28/17 12:28 06/28/17 12:28 06/28/17 12:28 06/28/17 12:28 06/28/17 12:28 Intake & Output 06/27/17 06/28/17 06/29/17 06:59 06:59 06:59 Intake Total 760 1820 350 Output Total 1400 2700 800 Balance -640 -880 -450 Weight 100.5 kg 102.5 kg General appearance: PRESENT: no acute distress, cooperative, morbidly obese Head exam: PRESENT: atraumatic, normocephalic Eye exam: PRESENT: EOMI, PERRLA Mouth exam: PRESENT: moist Teeth exam: PRESENT: poor dentation Neck exam: ABSENT: carotid bruit, JVD, lymphadenopathy, thyromegaly Respiratory exam: PRESENT: rhonchi, unlabored, wheezes. ABSENT: accessory muscle use Cardiovascular exam: PRESENT: RRR. ABSENT: diastolic murmur, rubs, systolic murmur GI/Abdominal exam: PRESENT: normal bowel sounds, soft. ABSENT: distended, guarding, mass, organolmegaly, rebound, tenderness Extremities exam: PRESENT: full ROM. ABSENT: calf tenderness, clubbing, pedal edema Musculoskeletal exam: ABSENT: ambulatory Neurological exam: PRESENT: alert, awake, oriented to person, oriented to place , oriented to time, oriented to situation, CN II-XII grossly intact. ABSENT: motor sensory deficit Psychiatric exam: PRESENT: appropriate affect, normal mood. ABSENT: homicidal ideation, suicidal ideation Skin exam: PRESENT: dry, intact, warm. ABSENT: cyanosis, rash Results Laboratory Results: 06/27/17 04:25 06/27/17 04:25 Impressions: Chest X-Ray 06/26/17 12:05 IMPRESSION: HEART ENLARGED WITHOUT FAILURE. NO OTHER SIGNIFICANT RADIOGRAPHIC FINDING IN THE CHEST. Assessment & Plan - Diagnosis (1) Acute and chronic respiratory failure Qualifiers: Respiratory failure complication: hypoxia Qualified Code(s): J96.21 - Acute and chronic respiratory failure with hypoxia Is this a current diagnosis for this admission?: Yes Plan: Continue oxygen at 2 L via nasal cannula. Discontinue Solu-Medrol. Start prednisone tomorrow. Continue inhaled bronchodilators. Add inhaled Mucomyst twice daily. She requested Magic mouthwash to use following Mucomyst therapy. Complete 5 day treat with Azithromycin. (2) COPD exacerbation Is this a current diagnosis for this admission?: Yes Plan: See above. (3) Morbid obesity with BMI of 40.0-44.9, adult Is this a current diagnosis for this admission?: Yes Plan: Very difficult situation. Is unable to exercise. Her weight is debilitating. 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 BG should improve starting tomorrow, now that Solumedrol will be stopped. (5) Diastolic dysfunction Is this a current diagnosis for this admission?: Yes Plan: Stable. (6) MRSA (methicillin resistant Staphylococcus aureus) colonization Is this a current diagnosis for this admission?: Yes Plan: Continue contact isolation (7) Do not resuscitate Is this a current diagnosis for this admission?: Yes Plan: Continue (8) Obstructive sleep apnea Is this a current diagnosis for this admission?: Yes Plan: BiPAP at night. (9) Opiate dependence, continuous Is this a current diagnosis for this admission?: Yes Plan: Continue has previously prescribed (10) Physical debility Is this a current diagnosis for this admission?: Yes Plan: Stable (11) Polypharmacy Is this a current diagnosis for this admission?: Yes Plan: No change - Time Time Spent with patient: 25-34 minutes Medications reviewed and adjusted accordingly: Yes Anticipated discharge: SNF - Inpatient Certification Based on my medical assessment, after consideration of the patient's comorbidities, presenting symptoms, or acuity I expect that the services needed warrant INPATIENT care.: Yes I certify that my determination is in accordance with my understanding of Medicare's requirements for reasonable and necessary INPATIENT services [42 CFR 412.3e].: Yes Medical Necessity: Failure to Improve With Outpatient Therapy, Significant Comorbidiites Make Outpatient Treatment Too Risky, Need Close Monitoring Due to Risk of Patient Decompensation, Need for Nebulizer Therapy and Monitoring of Response
[2017-06-28] MEDS: FUROSEMIDE 20 MG TABLET PO SCH (16:09)
[2017-06-28] MEDS ORDERED: NYSTATIN/DEXAMETH/DIPHEN SUSP 120 ML PO SCH (18:00)
[2017-06-28] MEDS: ACETYLCYSTEINE 10% NEB 400 MG/4 ML VIAL NEB SCH (19:18)
[2017-06-28] MEDS: NYSTATIN/DEXAMETH/DIPHEN SUSP 120 ML PO SCH (20:27)
[2017-06-28] MEDS: SENNOSIDES/DOCUSATE 8.6-50 MG 1 EACH TABLET PO SCH (21:20)
[2017-06-28] MEDS: PHARMACY COMMUNICATION ORDER MC SCH (21:24)
[2017-06-29] MEDS: IPRATROPIUM/ALBUTEROL 0.5-2.5 MG/3 ML AMPUL NEB SCH ×6 (00:08→19:38)
[2017-06-29] MEDS: INSULIN LISPRO 100 UNIT/ML 3 ML VIAL SUBCUT PRN ×5 (00:54→21:57)
[2017-06-29] MEDS: ACETYLCYSTEINE 10% NEB 400 MG/4 ML VIAL NEB SCH ×4 (02:20→19:37)
[2017-06-29] MEDS: NYSTATIN/DEXAMETH/DIPHEN SUSP 120 ML PO SCH ×4 (02:44→20:11)
[2017-06-29] MEDS: DILTIAZEM HCL 60 MG TABLET PO SCH ×3 (05:36→21:58)
[2017-06-29] MEDS: LANSOPRAZOLE 15 MG TAB.RAP.DR PO SCH (05:36)
[2017-06-29] MEDS: BENZONATATE 100 MG CAPSULE PO SCH ×3 (05:36→21:57)
[2017-06-29] MEDS: FUROSEMIDE 40 MG TABLET PO SCH (05:37)
[2017-06-29] MEDS: PREGABALIN 75 MG CAPSULE PO SCH ×3 (05:37→21:57)
[2017-06-29] MEDS: BUTALB/ACETAMINOPHEN/CAFFEINE 1 TAB EACH PO PRN ×2 (05:41→14:24)
[2017-06-29] MEDS: BUDESONIDE NEB 0.5 MG/2 ML AMPUL NEB SCH ×2 (07:50→19:37)
[2017-06-29] MEDS: ASPIRIN 81 MG TABLET, CHEWABLE PO SCH (08:29)
[2017-06-29] MEDS: LORATADINE 10 MG TABLET PO SCH (08:29)
[2017-06-29] MEDS: FENTANYL 25 MCG/HR PATCH.TD72 TD SCH (10:42)
[2017-06-29] MEDS: POLYVINYL ALCOHOL 1.4% OPH SOLN 15 ML OU SCH ×4 (10:43→21:58)
[2017-06-29] MEDS: DULOXETINE HCL 30 MG CAPSULE.DR PO SCH (10:43)
[2017-06-29] MEDS: PREDNISONE 20 MG TABLET PO SCH (10:44)
[2017-06-29] MEDS: METOPROLOL TARTRATE 25 MG TABLET PO SCH ×2 (10:44→21:58)
[2017-06-29] MEDS: BUSPIRONE HCL 10 MG TABLET PO SCH ×2 (10:44→22:02)
[2017-06-29] MEDS: FERROUS SULFATE 325 MG TABLET PO SCH ×2 (10:45→17:15)
[2017-06-29] MEDS: DOCUSATE SODIUM 100 MG CAPSULE PO SCH ×2 (10:45→17:15)
[2017-06-29] MEDS: BACLOFEN 10 MG TABLET PO SCH ×3 (10:45→17:15)
[2017-06-29] MEDS: AZITHROMYCIN 250 MG TABLET PO SCH (10:45)
[2017-06-29] MEDS: ASCORBIC ACID 500 MG TABLET PO SCH ×2 (10:45→17:15)
[2017-06-29] MEDS: FAMOTIDINE 20 MG TABLET PO SCH ×2 (10:46→17:15)
[2017-06-29] MEDS: RANOLAZINE 500 MG TAB.SR.12H PO SCH ×2 (10:46→21:58)
[2017-06-29] MEDS: LUBIPROSTONE 24 MCG CAPSULE PO SCH ×2 (10:46→17:16)
[2017-06-29] MEDS: POLYETHYLENE GLYCOL 3350 POWDER 17 GM/1 PACKET PO SCH (10:47)
[2017-06-29] MEDS: LIDOCAINE 5% (700 MG) TRANSDERMAL ADH..PATCH TOP SCH (10:48)
[2017-06-29] MEDS: FLUTICASONE NASAL SPRAY 50 MCG/SPRY 120 SPRAY/16 GM NASL SCH (10:49)
[2017-06-29] MEDS: OXYCODONE HCL IR 5 MG TABLET PO PRN ×2 (10:50→17:25)
[2017-06-29] MEDS: FLUTICASONE PROPIONATE HFA 110 MCG/PUFF 12 GM MDI IH SCH ×2 (10:50→17:16)
[2017-06-29] MEDS: INSULIN DETEMIR 100 UNIT/ML 3 ML PEN SUBCUT SCH (10:51)
[2017-06-29] MEDS: ENOXAPARIN SODIUM INJ 40 MG/0.4 ML DISP.SYRIN SUBCUT SCH (11:07)
[2017-06-29] MEDS: LACTULOSE SYRUP 20 GM/30 ML UDCUP PO SCH ×2 (11:07→17:16)
--- NOTE | 2017-06-29 14:05 | PDOC PROGRESS REPORT ---
Subjective Progress Note for:: 06/29/17 Subjective:: 72-year-old female with a history of chronic respiratory failure with hypoxia, O2 and steroid-dependent COPD, morbid obesity presented to the emergency department with a several day history of shortness of breath and cough. She stated that she was feeling poorly for several months. Her symptoms worsen in the past 3 days prior to admission. She states that she had been using her BiPAP more frequently as well as inhaled bronchodilators without significant improvement in her symptoms. She did not report fevers or chills. Her cough has been nonproductive. She lives at [facility]. She is essentially bedbound. She was admitted secondary to the above. She was continued on oxygen. She was treated with BiPAP at night. She was also started on high-dose IV steroids in addition to inhaled bronchodilators. Gradually her symptoms improved after Mucomyst was added to her nebs. She still has a congested cough. Today is the first day that she is starting to feel somewhat better. She says she did not sleep last night and is requesting melatonin. Reason For Visit: ACUTE ON CHRONIC RESPIRATORY FAILURE WITH HYPOXIA Physical Exam Vital Signs: Temp Pulse Resp BP Pulse Ox 98.1 F 72 16 147/77 H 95 06/29/17 07:13 06/29/17 12:26 06/29/17 12:26 06/29/17 07:13 06/29/17 12:26 Intake & Output 06/28/17 06/29/17 06/30/17 06:59 06:59 06:59 Intake Total 1820 970 Output Total 2700 1700 Balance -880 -730 Weight 102.5 kg 103.4 kg General appearance: PRESENT: no acute distress, morbidly obese Head exam: PRESENT: atraumatic, normocephalic Eye exam: PRESENT: EOMI, PERRLA Respiratory exam: PRESENT: rhonchi, unlabored. ABSENT: accessory muscle use, rales, wheezes Cardiovascular exam: PRESENT: RRR. ABSENT: diastolic murmur, rubs, systolic murmur GI/Abdominal exam: PRESENT: normal bowel sounds, soft. ABSENT: distended, guarding, mass, organolmegaly, rebound, tenderness Neurological exam: PRESENT: alert, awake, oriented to person, oriented to place , oriented to time, oriented to situation, CN II-XII grossly intact. ABSENT: motor sensory deficit Psychiatric exam: PRESENT: appropriate affect, normal mood. ABSENT: homicidal ideation, suicidal ideation Skin exam: PRESENT: dry, intact, warm. ABSENT: cyanosis, rash Results Laboratory Results: 06/27/17 04:25 06/27/17 04:25 Impressions: Chest X-Ray 06/26/17 12:05 IMPRESSION: HEART ENLARGED WITHOUT FAILURE. NO OTHER SIGNIFICANT RADIOGRAPHIC FINDING IN THE CHEST. Assessment & Plan - Diagnosis (1) Acute and chronic respiratory failure Qualifiers: Respiratory failure complication: hypoxia Qualified Code(s): J96.21 - Acute and chronic respiratory failure with hypoxia Is this a current diagnosis for this admission?: Yes Plan: Continue oxygen at 2 L via nasal cannula. Prednisone started today. Continue inhaled bronchodilators and Mucomyst twice daily along with Magic mouthwash to use following Mucomyst therapy. Day 3 of 5 of Azithromycin. (2) COPD exacerbation Is this a current diagnosis for this admission?: Yes Plan: See above. (3) Morbid obesity with BMI of 40.0-44.9, adult Is this a current diagnosis for this admission?: Yes Plan: Very difficult situation. Is unable to exercise. Her weight is debilitating. (4) Diabetes mellitus type II, controlled Qualifiers: Diabetes mellitus complication status: with hyperglycemia Diabetes mellitus longterm insulin use: with longterm use Qualified Code(s): E11.65 - Type 2 diabetes mellitus with hyperglycemia; Z79.4 - intermediate designer (current) use of insulin; Z79.4 - intermediate designer (current) use of insulin; Z79.4 - [facility] ( current) use of insulin; Z79.4 - intermediate designer (current) use of insulin Is this a current diagnosis for this admission?: Yes Plan: Continue insulin. BG should improve now that she is on prednisone. (5) Diastolic dysfunction Is this a current diagnosis for this admission?: Yes Plan: Stable. (6) MRSA (methicillin resistant Staphylococcus aureus) colonization Is this a current diagnosis for this admission?: Yes Plan: Continue contact isolation (7) Do not resuscitate Is this a current diagnosis for this admission?: Yes Plan: Continue (8) Obstructive sleep apnea Is this a current diagnosis for this admission?: Yes Plan: BiPAP at night. (9) Opiate dependence, continuous Is this a current diagnosis for this admission?: Yes Plan: Continue has previously prescribed (10) Physical debility Is this a current diagnosis for this admission?: Yes Plan: Stable (11) Polypharmacy Is this a current diagnosis for this admission?: Yes Plan: No change - Time Time Spent with patient: 15-24 minutes Medications reviewed and adjusted accordingly: Yes Anticipated discharge: SNF - Inpatient Certification Medical Necessity: Significant Comorbidiites Make Outpatient Treatment Too Risky , Need Close Monitoring Due to Risk of Patient Decompensation, Need for Nebulizer Therapy and Monitoring of Response
[2017-06-29] MEDS: FUROSEMIDE 20 MG TABLET PO SCH (17:14)
[2017-06-29] MEDS ORDERED: NYSTATIN/DEXAMETH/DIPHEN SUSP 120 ML PO SCH (20:00)
[2017-06-29] MEDS: SENNOSIDES/DOCUSATE 8.6-50 MG 1 EACH TABLET PO SCH (21:57)
[2017-06-29] MEDS: PHARMACY COMMUNICATION ORDER MC SCH (22:02)
[2017-06-30] MEDS: IPRATROPIUM/ALBUTEROL 0.5-2.5 MG/3 ML AMPUL NEB SCH ×6 (00:12→19:34)
[2017-06-30] MEDS: NYSTATIN/DEXAMETH/DIPHEN SUSP 120 ML PO SCH ×4 (01:28→20:50)
[2017-06-30] MEDS: ACETYLCYSTEINE 10% NEB 400 MG/4 ML VIAL NEB SCH ×4 (01:29→19:34)
[2017-06-30] MEDS: LEVALBUTEROL HCL NEB 0.63 MG/3 ML AMPUL NEB PRN (01:30)
[2017-06-30] MEDS: LANSOPRAZOLE 15 MG TAB.RAP.DR PO SCH (06:13)
[2017-06-30] MEDS: FUROSEMIDE 40 MG TABLET PO SCH (06:13)
[2017-06-30] MEDS: DILTIAZEM HCL 60 MG TABLET PO SCH ×3 (06:13→21:27)
[2017-06-30] MEDS: PREGABALIN 75 MG CAPSULE PO SCH ×3 (06:13→21:28)
[2017-06-30] MEDS: OXYCODONE HCL IR 5 MG TABLET PO PRN ×3 (06:14→21:28)
[2017-06-30] MEDS: BENZONATATE 100 MG CAPSULE PO SCH ×3 (06:14→21:27)
[2017-06-30] MEDS: BUDESONIDE NEB 0.5 MG/2 ML AMPUL NEB SCH ×2 (08:04→19:34)
[2017-06-30] MEDS: LORATADINE 10 MG TABLET PO SCH (08:29)
[2017-06-30] MEDS: ASPIRIN 81 MG TABLET, CHEWABLE PO SCH (08:29)
[2017-06-30] MEDS: INSULIN LISPRO 100 UNIT/ML 3 ML VIAL SUBCUT PRN ×3 (08:34→18:13)
--- NOTE | 2017-06-30 10:59 | PDOC PROGRESS REPORT ---
Subjective Progress Note for:: 06/30/17 Subjective:: The patient is a 72-year-old female who has acute on chronic hypoxic respiratory failure which appears to be due to steroid dependent COPD and super morbid obesity. The patient appears to be nearing her baseline. She is concerned because she has a carbapenem resistant urinary tract infection. 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 Reason For Visit: ACUTE ON CHRONIC RESPIRATORY FAILURE WITH HYPOXIA Physical Exam Vital Signs: Temp Pulse Resp BP Pulse Ox 99.0 F 51 L 22 H 139/70 H 97 06/30/17 08:47 06/30/17 08:47 06/30/17 08:47 06/30/17 08:47 06/30/17 08:47 Intake & Output 06/29/17 06/30/17 07/01/17 06:59 06:59 06:59 Intake Total 970 1438 Output Total 1700 2600 Balance -730 -1162 Weight 103.4 kg 94.8 kg Additional comments: The patient is alert, oriented 3 and competent. Her facial parents is unremarkable. Her lungs are diminished but clear throughout. Her cardiac exam is distant but regular. I do not appreciate any murmurs, gallops or rubs. The abdomen is obese but soft. Bowel sounds are noted in the lower quadrants. There is no guarding or rebound present and there are no hernias or masses present. The lower extremities are obese, but no pitting edema is present. The skin is warm, dry and intact without lesions or rashes. Results Laboratory Results: 06/27/17 04:25 06/27/17 04:25 Impressions: Chest X-Ray 06/26/17 12:05 IMPRESSION: HEART ENLARGED WITHOUT FAILURE. NO OTHER SIGNIFICANT RADIOGRAPHIC FINDING IN THE CHEST. Assessment & Plan - Diagnosis (1) Morbid obesity with BMI of 40.0-44.9, adult Is this a current diagnosis for this admission?: Yes (2) Acute and chronic respiratory failure Qualifiers: Respiratory failure complication: hypoxia Qualified Code(s): J96.21 - Acute and chronic respiratory failure with hypoxia Is this a current diagnosis for this admission?: Yes (3) COPD exacerbation Is this a current diagnosis for this admission?: Yes (4) Chronic respiratory failure with hypoxia Is this a current diagnosis for this admission?: Yes (5) Diabetes mellitus type II, controlled Qualifiers: Diabetes mellitus complication status: with hyperglycemia Diabetes mellitus long term care phlebotomist insulin use: with prison use Qualified Code(s): E11.65 - Type 2 diabetes mellitus with hyperglycemia; Z79.4 - intermission coordinator (current) use of insulin; Z79.4 - [facility] (current) use of insulin; Z79.4 - intermission coordinator ( current) use of insulin; Z79.4 - [facility] (current) use of insulin Is this a current diagnosis for this admission?: Yes (6) MRSA (methicillin resistant Staphylococcus aureus) colonization Is this a current diagnosis for this admission?: Yes (7) Morbid (severe) obesity with alveolar hypoventilation Is this a current diagnosis for this admission?: Yes (8) UTI (urinary tract infection) Qualifiers: Urinary tract infection type: acute cystitis Hematuria presence: without hematuria Qualified Code(s): N30.00 - Acute cystitis without hematuria Is this a current diagnosis for this admission?: No (9) Diastolic dysfunction Is this a current diagnosis for this admission?: Yes (10) Do not resuscitate Is this a current diagnosis for this admission?: Yes (11) Obstructive sleep apnea Is this a current diagnosis for this admission?: Yes (12) Physical debility Is this a current diagnosis for this admission?: Yes (13) Polypharmacy Is this a current diagnosis for this admission?: Yes - Time Time Spent with patient: 15-24 minutes - Inpatient Certification Medical Necessity: Need for Nebulizer Therapy and Monitoring of Response - The patient appears to be nearing her baseline. I anticipate that we can discharge her in the next 24-48 hours. - Plan Summary Plan Summary: The patient presented with acute on chronic hypoxic respiratory failure. This appears to be secondary to COPD with exacerbation and also exacerbated by her morbid obesity with a BMI of 40-45 and alveolar hypoventilation. In addition, patient has diastolic dysfunction which is not surprising due to her super morbid obesity. She also has obstructive sleep apnea. She is now back to her baseline dose of steroids at 60 mg per day. Opioid dependency complicates her picture. She is bedbound and physically disabled. As stated above she is nearing her baseline and I would like to get her back to [facility] in the next 24- 48 hours. She is colonized with a Klebsiella species. This is carbapenem resistant. She will not be treated for urinary tract infection unless she has fever, leukocytosis or symptoms.
[2017-06-30] MEDS: RANOLAZINE 500 MG TAB.SR.12H PO SCH ×2 (11:11→21:28)
[2017-06-30] MEDS: LUBIPROSTONE 24 MCG CAPSULE PO SCH ×2 (11:11→18:14)
[2017-06-30] MEDS: LIDOCAINE 5% (700 MG) TRANSDERMAL ADH..PATCH TOP SCH (11:11)
[2017-06-30] MEDS: FLUTICASONE PROPIONATE HFA 110 MCG/PUFF 12 GM MDI IH SCH ×2 (11:11→18:14)
[2017-06-30] MEDS: DULOXETINE HCL 30 MG CAPSULE.DR PO SCH (11:12)
[2017-06-30] MEDS: ENOXAPARIN SODIUM INJ 40 MG/0.4 ML DISP.SYRIN SUBCUT SCH (11:12)
[2017-06-30] MEDS: DOCUSATE SODIUM 100 MG CAPSULE PO SCH ×2 (11:12→18:26)
[2017-06-30] MEDS: LACTULOSE SYRUP 20 GM/30 ML UDCUP PO SCH ×2 (11:12→18:13)
[2017-06-30] MEDS: FERROUS SULFATE 325 MG TABLET PO SCH ×2 (11:12→18:14)
[2017-06-30] MEDS: BUSPIRONE HCL 10 MG TABLET PO SCH ×2 (11:13→21:26)
[2017-06-30] MEDS: FAMOTIDINE 20 MG TABLET PO SCH ×2 (11:13→18:27)
[2017-06-30] MEDS: AZITHROMYCIN 250 MG TABLET PO SCH (11:13)
[2017-06-30] MEDS: BACLOFEN 10 MG TABLET PO SCH ×3 (11:13→18:14)
[2017-06-30] MEDS: ASCORBIC ACID 500 MG TABLET PO SCH ×2 (11:13→18:13)
[2017-06-30] MEDS: INSULIN DETEMIR 100 UNIT/ML 3 ML PEN SUBCUT SCH (11:15)
[2017-06-30] MEDS: FLUTICASONE NASAL SPRAY 50 MCG/SPRY 120 SPRAY/16 GM NASL SCH (11:15)
[2017-06-30] MEDS: PREDNISONE 20 MG TABLET PO SCH (11:15)
[2017-06-30] MEDS: METOPROLOL TARTRATE 25 MG TABLET PO SCH ×2 (11:15→21:28)
[2017-06-30] MEDS: POLYETHYLENE GLYCOL 3350 POWDER 17 GM/1 PACKET PO SCH (11:15)
[2017-06-30] MEDS: POLYVINYL ALCOHOL 1.4% OPH SOLN 15 ML OU SCH ×4 (11:16→22:00)
[2017-06-30] MEDS: BUTALB/ACETAMINOPHEN/CAFFEINE 1 TAB EACH PO PRN (18:14)
[2017-06-30] MEDS: FUROSEMIDE 20 MG TABLET PO SCH (18:14)
[2017-06-30] MEDS: SENNOSIDES/DOCUSATE 8.6-50 MG 1 EACH TABLET PO SCH (21:26)
[2017-06-30] MEDS: PHARMACY COMMUNICATION ORDER MC SCH (22:00)
[2017-07-01] MEDS: IPRATROPIUM/ALBUTEROL 0.5-2.5 MG/3 ML AMPUL NEB SCH ×4 (00:22→20:01)
[2017-07-01] MEDS: LEVALBUTEROL HCL NEB 0.63 MG/3 ML AMPUL NEB PRN ×2 (01:13→12:44)
[2017-07-01] MEDS: ACETYLCYSTEINE 10% NEB 400 MG/4 ML VIAL NEB SCH ×3 (01:13→20:01)
[2017-07-01] MEDS: INSULIN LISPRO 100 UNIT/ML 3 ML VIAL SUBCUT PRN ×3 (01:52→21:58)
[2017-07-01] MEDS: OXYCODONE HCL IR 5 MG TABLET PO PRN ×2 (04:46→17:59)
[2017-07-01] MEDS: NYSTATIN/DEXAMETH/DIPHEN SUSP 120 ML PO SCH ×4 (04:47→19:46)
[2017-07-01] MEDS: PREGABALIN 75 MG CAPSULE PO SCH ×3 (05:16→21:34)
[2017-07-01] MEDS: BENZONATATE 100 MG CAPSULE PO SCH ×3 (05:16→21:34)
[2017-07-01] MEDS: LANSOPRAZOLE 15 MG TAB.RAP.DR PO SCH (05:16)
[2017-07-01] MEDS: DILTIAZEM HCL 60 MG TABLET PO SCH ×3 (05:16→21:33)
[2017-07-01] MEDS: FUROSEMIDE 40 MG TABLET PO SCH (05:17)
[2017-07-01] MEDS: ASPIRIN 81 MG TABLET, CHEWABLE PO SCH (07:29)
[2017-07-01] MEDS: PROMETHAZINE HCL 25 MG TABLET PO PRN (07:29)
[2017-07-01] MEDS: LORATADINE 10 MG TABLET PO SCH (07:29)
[2017-07-01] MEDS: BUDESONIDE NEB 0.5 MG/2 ML AMPUL NEB SCH ×2 (08:13→20:01)
[2017-07-01] MEDS ORDERED: PREDNISONE 20 MG TABLET PO ONE (11:00)
--- NOTE | 2017-07-01 11:11 | PDOC PROGRESS REPORT ---
Subjective Progress Note for:: 07/01/17 Subjective:: The patient is a 72-year-old female who has acute on chronic hypoxic respiratory failure which appears to be due to steroid dependent COPD and super morbid obesity. The patient appears to be nearing her baseline. She is concerned because she has a carbapenem resistant urinary tract infection. 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 Today, she mentioned that she has been sleeping poorly but she started to sleep better last evening. She feels that her breathing is certainly better than when she came in but not yet back to her baseline. Reason For Visit: ACUTE ON CHRONIC RESPIRATORY FAILURE WITH HYPOXIA Physical Exam Vital Signs: Temp Pulse Resp BP Pulse Ox 99.1 F 88 18 150/76 H 97 07/01/17 00:59 07/01/17 08:15 07/01/17 08:15 07/01/17 00:59 07/01/17 08:15 Intake & Output 06/30/17 07/01/17 07/02/17 06:59 06:59 06:59 Intake Total 1438 744 Output Total 2600 Balance -1162 744 Weight 94.8 kg 103 kg Additional comments: The patient is a morbidly obese white female. She does not appear to be in any distress. Her cognition and mentation are appropriate. Her lungs show coarse rales throughout. No end expiratory wheezing is noted. She did not have a cough during conversation. Her cardiac exam is regular but her exam is very distant. I did not appreciate any murmurs, gallops or rubs. The abdomen is obese but soft. Bowel sounds are present. The lower extremities demonstrate trace edema. The skin is otherwise warm, dry and intact without lesions or rashes. Results Laboratory Results: 06/27/17 04:25 06/27/17 04:25 06/26/17 18:15 Catheterized Urine Urine Culture - Final *Cre*Klebsiella Pneumoniae Escherichia Coli Esbl Impressions: Chest X-Ray 06/26/17 12:05 IMPRESSION: HEART ENLARGED WITHOUT FAILURE. NO OTHER SIGNIFICANT RADIOGRAPHIC FINDING IN THE CHEST. Assessment & Plan - Diagnosis (1) Morbid obesity with BMI of 40.0-44.9, adult Is this a current diagnosis for this admission?: Yes (2) Acute and chronic respiratory failure Qualifiers: Respiratory failure complication: hypoxia Qualified Code(s): J96.21 - Acute and chronic respiratory failure with hypoxia Is this a current diagnosis for this admission?: Yes (3) COPD exacerbation Is this a current diagnosis for this admission?: Yes (4) Chronic respiratory failure with hypoxia Is this a current diagnosis for this admission?: Yes (5) Diabetes mellitus type II, controlled Qualifiers: Diabetes mellitus complication status: with hyperglycemia Diabetes mellitus emt intermediate insulin use: with emt intermediate use Qualified Code(s): E11.65 - Type 2 diabetes mellitus with hyperglycemia; Z79.4 - emt intermediate (current) use of insulin; Z79.4 - emt intermediate (current) use of insulin; Z79.4 - [facility] ( current) use of insulin; Z79.4 - emt intermediate (current) use of insulin Is this a current diagnosis for this admission?: Yes (6) MRSA (methicillin resistant Staphylococcus aureus) colonization Is this a current diagnosis for this admission?: Yes (7) Morbid (severe) obesity with alveolar hypoventilation Is this a current diagnosis for this admission?: Yes (8) UTI (urinary tract infection) Qualifiers: Urinary tract infection type: acute cystitis Hematuria presence: without hematuria Qualified Code(s): N30.00 - Acute cystitis without hematuria Is this a current diagnosis for this admission?: No (9) Diastolic dysfunction Is this a current diagnosis for this admission?: Yes (10) Do not resuscitate Is this a current diagnosis for this admission?: Yes (11) Obstructive sleep apnea Is this a current diagnosis for this admission?: Yes (12) Physical debility Is this a current diagnosis for this admission?: Yes (13) Polypharmacy Is this a current diagnosis for this admission?: Yes - Time Time Spent with patient: 15-24 minutes - Plan Summary Plan Summary: The patient appears to be nearing her baseline. With the exception of corticosteroids she is now on her routine therapy. Today, I will begin to wean her prednisone. I plan on discharging her in the morning back to her assisted living facility.
[2017-07-01] MEDS: INSULIN DETEMIR 100 UNIT/ML 3 ML PEN SUBCUT SCH (11:31)
[2017-07-01] MEDS: LACTULOSE SYRUP 20 GM/30 ML UDCUP PO SCH ×2 (11:32→17:37)
[2017-07-01] MEDS: ENOXAPARIN SODIUM INJ 40 MG/0.4 ML DISP.SYRIN SUBCUT SCH (11:32)
[2017-07-01] MEDS: FAMOTIDINE 20 MG TABLET PO SCH ×2 (11:33→17:40)
[2017-07-01] MEDS: BUSPIRONE HCL 10 MG TABLET PO SCH ×2 (11:33→21:33)
[2017-07-01] MEDS: POLYETHYLENE GLYCOL 3350 POWDER 17 GM/1 PACKET PO SCH (11:33)
[2017-07-01] MEDS: DULOXETINE HCL 30 MG CAPSULE.DR PO SCH (11:34)
[2017-07-01] MEDS: ASCORBIC ACID 500 MG TABLET PO SCH ×2 (11:35→17:38)
[2017-07-01] MEDS: BACLOFEN 10 MG TABLET PO SCH ×3 (11:35→17:39)
[2017-07-01] MEDS: METOPROLOL TARTRATE 25 MG TABLET PO SCH ×2 (11:35→21:34)
[2017-07-01] MEDS: DOCUSATE SODIUM 100 MG CAPSULE PO SCH ×2 (11:36→17:39)
[2017-07-01] MEDS: FERROUS SULFATE 325 MG TABLET PO SCH ×2 (11:36→17:38)
[2017-07-01] MEDS: FLUTICASONE PROPIONATE HFA 110 MCG/PUFF 12 GM MDI IH SCH ×2 (11:37→17:41)
[2017-07-01] MEDS: FLUTICASONE NASAL SPRAY 50 MCG/SPRY 120 SPRAY/16 GM NASL SCH (11:37)
[2017-07-01] MEDS: LUBIPROSTONE 24 MCG CAPSULE PO SCH ×2 (11:38→17:41)
[2017-07-01] MEDS: RANOLAZINE 500 MG TAB.SR.12H PO SCH ×2 (11:38→21:33)
[2017-07-01] MEDS: LIDOCAINE 5% (700 MG) TRANSDERMAL ADH..PATCH TOP SCH (11:39)
[2017-07-01] MEDS ORDERED: ACETYLCYSTEINE 10% NEB 400 MG/4 ML VIAL NEB PRN (13:30)
[2017-07-01] MEDS: POLYVINYL ALCOHOL 1.4% OPH SOLN 15 ML OU SCH ×4 (13:35→21:44)
[2017-07-01] MEDS ORDERED: IPRATROPIUM/ALBUTEROL 0.5-2.5 MG/3 ML AMPUL NEB SCH (16:00)
[2017-07-01] MEDS: FUROSEMIDE 20 MG TABLET PO SCH (17:37)
[2017-07-01] MEDS: SENNOSIDES/DOCUSATE 8.6-50 MG 1 EACH TABLET PO SCH (21:33)
[2017-07-01] MEDS: PHARMACY COMMUNICATION ORDER MC SCH (21:34)
[2017-07-01] MEDS ORDERED: ERGOCALCIFEROL (VITAMIN D2) 50000 UNIT (1.25 MG) CAPSULE PO SCH (22:09)
[2017-07-02] MEDS: NYSTATIN/DEXAMETH/DIPHEN SUSP 120 ML PO SCH ×3 (02:17→13:50)
[2017-07-02] MEDS: BUTALB/ACETAMINOPHEN/CAFFEINE 1 TAB EACH PO PRN (04:07)
[2017-07-02] MEDS: FUROSEMIDE 40 MG TABLET PO SCH (05:31)
[2017-07-02] MEDS: PREGABALIN 75 MG CAPSULE PO SCH ×2 (05:31→13:48)
[2017-07-02] MEDS: LANSOPRAZOLE 15 MG TAB.RAP.DR PO SCH (05:31)
[2017-07-02] MEDS: BENZONATATE 100 MG CAPSULE PO SCH ×2 (05:32→13:48)
[2017-07-02] MEDS: DILTIAZEM HCL 60 MG TABLET PO SCH ×2 (05:32→13:48)
[2017-07-02] MEDS: PROMETHAZINE HCL 25 MG TABLET PO PRN (06:09)
[2017-07-02] MEDS: IPRATROPIUM/ALBUTEROL 0.5-2.5 MG/3 ML AMPUL NEB SCH ×2 (07:54→13:26)
[2017-07-02] MEDS: ACETYLCYSTEINE 10% NEB 400 MG/4 ML VIAL NEB SCH (07:54)
[2017-07-02] MEDS: BUDESONIDE NEB 0.5 MG/2 ML AMPUL NEB SCH (07:54)
[2017-07-02] MEDS: INSULIN LISPRO 100 UNIT/ML 3 ML VIAL SUBCUT PRN (08:16)
[2017-07-02] MEDS: ASPIRIN 81 MG TABLET, CHEWABLE PO SCH (08:16)
[2017-07-02] MEDS: LORATADINE 10 MG TABLET PO SCH (08:16)
[2017-07-02] MEDS ORDERED: PREDNISONE 20 MG TABLET PO SCH (10:00)
[2017-07-02] MEDS: ENOXAPARIN SODIUM INJ 40 MG/0.4 ML DISP.SYRIN SUBCUT SCH (11:03)
[2017-07-02] MEDS: FAMOTIDINE 20 MG TABLET PO SCH (11:03)
[2017-07-02] MEDS: LACTULOSE SYRUP 20 GM/30 ML UDCUP PO SCH (11:03)
[2017-07-02] MEDS: BACLOFEN 10 MG TABLET PO SCH ×2 (11:04→13:48)
[2017-07-02] MEDS: BUSPIRONE HCL 10 MG TABLET PO SCH (11:04)
[2017-07-02] MEDS: DULOXETINE HCL 30 MG CAPSULE.DR PO SCH (11:04)
[2017-07-02] MEDS: ASCORBIC ACID 500 MG TABLET PO SCH (11:04)
[2017-07-02] MEDS: FERROUS SULFATE 325 MG TABLET PO SCH (11:04)
[2017-07-02] MEDS: DOCUSATE SODIUM 100 MG CAPSULE PO SCH (11:05)
[2017-07-02] MEDS: LUBIPROSTONE 24 MCG CAPSULE PO SCH (11:06)
[2017-07-02] MEDS: RANOLAZINE 500 MG TAB.SR.12H PO SCH (11:06)
[2017-07-02] MEDS: METOPROLOL TARTRATE 25 MG TABLET PO SCH (11:06)
[2017-07-02] MEDS: FLUTICASONE PROPIONATE HFA 110 MCG/PUFF 12 GM MDI IH SCH (11:07)
[2017-07-02] MEDS: LIDOCAINE 5% (700 MG) TRANSDERMAL ADH..PATCH TOP SCH (11:07)
[2017-07-02] MEDS: FLUTICASONE NASAL SPRAY 50 MCG/SPRY 120 SPRAY/16 GM NASL SCH (11:07)
[2017-07-02] MEDS: POLYETHYLENE GLYCOL 3350 POWDER 17 GM/1 PACKET PO SCH (11:33)
[2017-07-02] MEDS: INSULIN DETEMIR 100 UNIT/ML 3 ML PEN SUBCUT SCH (11:33)
--- NOTE | 2017-07-02 12:02 | PDOC DISCHARGE SUMMARY ---
General - Admit/Disc Date/PCP Admission Date/Primary Care Provider: 06/26/17 18:04 Discharge Date: 07/02/17 - Discharge Diagnosis (1) Morbid obesity with BMI of 40.0-44.9, adult Is this a current diagnosis for this admission?: Yes (2) Acute and chronic respiratory failure Is this a current diagnosis for this admission?: Yes (3) COPD exacerbation Is this a current diagnosis for this admission?: Yes (4) Chronic respiratory failure with hypoxia Is this a current diagnosis for this admission?: Yes (5) Diabetes mellitus type II, controlled Is this a current diagnosis for this admission?: Yes (6) MRSA (methicillin resistant Staphylococcus aureus) colonization Is this a current diagnosis for this admission?: Yes (7) Morbid (severe) obesity with alveolar hypoventilation Is this a current diagnosis for this admission?: Yes (8) UTI (urinary tract infection) Is this a current diagnosis for this admission?: No (9) Diastolic dysfunction Is this a current diagnosis for this admission?: Yes (10) Do not resuscitate Is this a current diagnosis for this admission?: Yes (11) Obstructive sleep apnea Is this a current diagnosis for this admission?: Yes (12) Physical debility Is this a current diagnosis for this admission?: Yes (13) Polypharmacy Is this a current diagnosis for this admission?: Yes - Additional Information Resuscitation Status: Do Not Resuscitate Discharge Diet: Diabetic Discharge Activity: Supervised Activity Prescriptions: Acetylcysteine [Mucomist 10% Neb 400 mg/4 mL Vial] 400 mg NEB RTQ12 7 Days #14 vial.neb Dextrose [Glutose 40% Gel 15 gm Tube] 15 gm PO PRN PRN #1 tube PRN Reason: Glucagon,Human Recombinant [Glucagen Inj 1 mg Vial] 1 mg IM PRN PRN #1 vial PRN Reason: Home Medications: Acetaminophen [Tylenol 325 mg Tablet] 650 mg PO Q4HP PRN 06/26/17 Ascorbic Acid [Vitamin C 500 mg Tablet] 500 mg PO BID 06/26/17 Aspirin [Aspirin 81 mg Chewable Tablet] 81 mg PO QAM 06/26/17 Baclofen [Baclofen 10 mg Tablet] 10 mg PO TID 06/26/17 Benzocaine/Menthol [Chloraseptic Sore Throat Lozenge] 1 lozenge PO Q1HP PRN 12/ 27/17 Benzonatate [Tessalon Perles 100 mg Capsule] 200 mg PO Q8 06/26/17 Budesonide [Pulmicort 180 mcg Flexhaler] 2 puff IH BID 06/26/17 Budesonide [Pulmicort Neb 0.5 mg/2 ml Ampul] 2 ml NEB RTQ12 06/26/17 Buspirone HCl [Buspar 5 mg Tablet] 5 mg PO Q12 06/26/17 Butalb/Acetaminophen/Caffeine [Fioricet (50-325-40 mg) Tablet] 2 tab PO Q6HP PRN 06/26/17 Diltiazem HCl [Cardizem 60 mg Tablet] 60 mg PO Q8 06/26/17 Diphenhydramine HCl [Benadryl 25 mg Capsule] 25 mg PO Q6HP PRN 06/26/17 Docusate Sodium [Colace 100 mg Capsule] 100 mg PO BID 06/26/17 Duloxetine HCl [Cymbalta] 90 mg PO DAILY 06/26/17 Ergocalciferol (Vitamin D2) [Drisdol 50,000 unit (1.25MG) Capsule] 50,000 unit PO MO 06/26/17 Famotidine [Pepcid 20 mg Tablet] 20 mg PO BID 06/26/17 Fentanyl [Duragesic 25 mcg/hr Transdermal Patch] 1 patch TD Q72H 06/26/17 Ferrous Sulfate [Feosol 325 mg Tablet] 325 mg PO BID 06/26/17 Fluticasone Propionate [Flonase Nasal Draper 50 Mcg/Draper 16 gm] 2 spray NASL DAILY 06/26/17 Furosemide [Lasix 20 mg Tablet] 20 mg PO DAILY@1700 06/26/17 Furosemide [Lasix 20 mg Tablet] 40 mg PO QAM 06/26/17 Insulin Detemir [Levemir] 30 units SQ DAILY 06/26/17 Insulin Lispro [Humalog Insulin (Lispro) 100 unit/mL] 0 units SQ .[id number] 06/26/17 Ipratropium/Albuterol Sulfate [Duoneb 3 ml Ampul] 3 ml NEB RTQ4 06/26/17 Ketotifen Fumarate [Refresh] 1 drop OU QID 06/26/17 Lactulose [Enulose 10 gm/15 mL Oral Solution] 30 ml PO BID 06/26/17 Levalbuterol HCl [Xopenex Neb 0.63 mg/3 ml Ampul] 3 ml NEB RTQ8 06/26/17 Lidocaine [Lidoderm 5% (700 mg) Transdermal Patch] 3 patch TD DAILY 06/26/17 Linaclotide [Linzess 145 Mcg Capsule] 145 mcg PO QAM 06/26/17 Loratadine [Claritin 10 mg Tablet] 10 mg PO QAM 06/26/17 Magnesium Hydroxide [Milk of Magnesia 30 ml Udcup] 30 ml PO DAILYP PRN 06/26/17 Melatonin 10 mg PO QHS 06/26/17 Menthol [Biofreeze] 1 applic TOP PRN PRN 06/26/17 Metoprolol Tartrate [Lopressor 25 mg Tablet] 25 mg PO Q12 06/26/17 Nitrofurantoin Monohyd/M-Cryst [Macrobid 100 mg Capsule] 100 mg PO [id number] 06/26 Nitroglycerin [Nitrostat] 0.4 mg SL Q5MP PRN 06/26/17 Omeprazole 20 mg PO Q6AM 06/26/17 Oxycodone HCl [Oxycodone HCl 10 MG Tablet] 10 mg PO Q6 06/26/17 Polyethylene Glycol 3350 [Miralax Powder 17 gm/Packet] 17 gm PO DAILY 06/26/17 Potassium Chloride [K-Tab ER] 40 meq PO DAILY 06/26/17 Prednisone [Deltasone 20 mg Tablet] 40 mg PO [id number] 06/26/17 Pregabalin [Lyrica] 150 mg PO Q8 06/26/17 Promethazine HCl [Phenergan 25 mg Tablet] 25 mg PO Q6HP PRN 06/26/17 Ranolazine [Ranexa 500 mg Tab.sr] 500 mg PO Q12 06/26/17 Sennosides/Docusate 8.6-50 mg [Senna Plus Tablet] 2 tab PO QHS 06/26/17 Acetylcysteine [Mucomist 10% Neb 400 mg/4 mL Vial] 400 mg NEB RTQ12 7 Days #14 vial.neb 07/02/17 Dextrose [Glutose 40% Gel 15 gm Tube] 15 gm PO PRN PRN #1 tube 07/02/17 Glucagon,Human Recombinant [Glucagen Inj 1 mg Vial] 1 mg IM PRN PRN #1 vial 08/18 History of Present Illness History of Present Illness: PORSHA WALDRON is a 72 year old female with a history of chronic respiratory failure with hypoxia, 02 and steroid-dependent COPD, and morbid obesity who presents to the emergency department with a several day history of shortness of breath and cough. She states that she has been feeling poorly for several months. Her symptoms worsen in the last 3 days. She has been using her BiPAP more frequently as well as inhaled bronchodilators without significant improvement in her symptoms. She did not report fever or chills. Her cough has been nonproductive. He did not report chest pain or palpitations. She did not report GI symptoms either. She lives at [facility]. She is essentially bedbound. Hospital Course Hospital Course: The patient was admitted with acute on chronic respiratory failure secondary to a COPD exacerbation. Her respiratory status is also aggravated by her morbid obesity and underlying obstructive sleep apnea. During this hospitalization she was treated initially with IV corticosteroids followed by oral corticosteroids. She will be discharged on prednisone 40 mg. When she came into the hospital the lowest prednisone dose she was on is 30 mg. Therefore, I will defer further tapering of her steroids to her attending physician in the outpatient sector. In addition, during this hospitalization she was started on Mucomyst nebulizer treatments. She will also be discharged on Mucomyst nebulizer treatments. She was not treated with antibiotics during this hospitalization. Urinary culture demonstrated a carboplatinum resistant Klebsiella pneumoniae species. She did not receive antibiotics for this as she is felt to be colonized. Physical Exam Vital Signs: Temp Pulse Resp BP Pulse Ox 98.2 F 80 16 111/62 96 07/02/17 07:29 07/02/17 07:54 07/02/17 07:54 07/02/17 07:29 07/02/17 07:54 Intake & Output 07/01/17 07/02/17 07/03/17 06:59 06:59 06:59 Intake Total 744 1198 Output Total 300 Balance 744 898 Weight 103 kg 102.8 kg Additional comments: The patient relates that she feels that she is in her usual state of health. She does appear to be somewhat cushingoid. Her cognition and mentation are appropriate. She continues to have rhonchi on her pulmonary exam. This is bilateral. Her cardiac exam is regular. I do not appreciate any murmurs, gallops or rubs. The abdomen is obese but soft. Bowel sounds are present. The lower extremities do not demonstrate any pitting edema. The skin is warm, dry and intact without lesions or rashes. Results Laboratory Results: 06/27/17 04:25 06/27/17 04:25 Impressions: Chest X-Ray 06/26/17 12:05 IMPRESSION: HEART ENLARGED WITHOUT FAILURE. NO OTHER SIGNIFICANT RADIOGRAPHIC FINDING IN THE CHEST. Plan Discharge Plan: 1. Discharge back to [facility] facility 2. Discharge diet: Diabetic 3. Activity: Supervised 4. Follow-up: Attending of medical record in 1 week. Please note that the patient is currently on 40 mg of prednisone. She has been on 30 mg chronically. I defer further tapering to the attending of record in the outpatient setting. Time Spent: Greater than 30 Minutes
[2017-07-02 13:21] VITALS: BP 147/58
[2017-07-02] MEDS: FENTANYL 25 MCG/HR PATCH.TD72 TD SCH (13:49)
[2017-07-02] MEDS: POLYVINYL ALCOHOL 1.4% OPH SOLN 15 ML OU SCH ×2 (13:49→13:50)
== END 2017-07-02 14:57 | DRG 190 ==
LOC: ER 12:03 → EH 18:04 → 3N 21:22
PROVIDERS: ADMIT Pediatrics; ATTEND Pediatrics
DX: J44.1 Chronic obstructive pulmonary disease with (acute) exacerbation (principal); J96.21 Acute and chronic respiratory failure with hypoxia; F11.20 Opioid dependence, uncomplicated; Z68.41 Body mass index [BMI] 40.0-44.9, adult; N30.00 Acute cystitis without hematuria; E66.2 Morbid (severe) obesity with alveolar hypoventilation; Z66 Do not resuscitate; I50.9 Heart failure, unspecified; I11.0 Hypertensive heart disease with heart failure; J20.9 Acute bronchitis, unspecified; I48.2 Chronic atrial fibrillation; E11.9 Type 2 diabetes mellitus without complications; K21.9 Gastro-esophageal reflux disease without esophagitis; K44.9 Diaphragmatic hernia without obstruction or gangrene; R53.81 Other malaise; B96.1 Klebsiella pneumoniae [K. pneumoniae] as the cause of diseases classified elsewhere; Z16.39 Resistance to other specified antimicrobial drug; Z99.81 Dependence on supplemental oxygen; Z87.891 Personal history of nicotine dependence; Z86.14 Personal history of Methicillin resistant Staphylococcus aureus infection; Z74.01 Bed confinement status
CPT/HCPCS: 36415; 71010; 80053; 81001; 82550; 82553; 82803; 82962; 83735; 83880; 84100; 84484; 85025; 85027; 87040; 87086; 87088; 87186; 93005; 93010; 94640; 94660; 94667; 94668; 96374; 99285; J0456; J1650; J1815; J2405; J2930; J3490; J7512; J7614; J7620

== ENCOUNTER 2017-07-15 05:35 | Inpatient (IN) | payer MEDICARE, MEDICAID ==
[2017-07-15] MEDS ORDERED: IPRATROPIUM/ALBUTEROL 0.5-2.5 MG/3 ML AMPUL NEB ONE (06:06)
--- NOTE | 2017-07-15 06:07 | ER Document Report ---
ED General - General Chief Complaint: Shortness Of Breath Stated Complaint: FEVER Time Seen by Provider: 07/15/17 06:03 Notes: 72 year old female with history of COPD (oxygen dependent on 2L), CHF, atrial fibrillation, CRE, presents from [facility] after she began to have increased coughing and a fever today. She was admitted about 3 weeks ago treated for bronchitis. Patient is coughing up yellow phlegm and is having subjective shortness of breath. Patient denies increased leg swelling, chest pain, recent travel, hemoptysis, abdominal pain, nausea, vomiting TRAVEL OUTSIDE OF THE [place] IN LAST 30 DAYS: No - Related Data Allergies/Adverse Reactions: Sulfa (Sulfonamide Antibiotics) Allergy (Intermediate, Verified 06/26/17 12:49) adhesive tape Allergy (Verified 06/26/17 12:49) atorvastatin calcium [From Lipitor] Allergy (Verified 06/26/17 12:49) celecoxib [From Celebrex] Allergy (Verified 06/26/17 12:49) Past Medical History - General Information source: Patient, Emergency Med Personnel, Outside Facility Records - Social History Smoking Status: Never Smoker Chew tobacco use (# tins/day): No Frequency of alcohol use: None Drug Abuse: None Family History: Arthritis, CAD, CVA, DM, Hypertension Patient has suicidal ideation: No Patient has homicidal ideation: No - Past Medical History Cardiac Medical History: Reports: Hx Atrial Fibrillation, Hx Congestive Heart Failure - Diastolic dysfunction, Hx Heart Attack, Hx Hypertension - essential, Hx Pulmonary Embolism, Hx Heart Murmur Denies: Hx Coronary Artery Disease, Hx DVT, Hx Hypercholesterolemia, Hx Peripheral Vascular Disease Pulmonary Medical History: Reports: Hx Asthma, Hx Bronchitis, Hx COPD, Hx Pneumonia - Recurrent MRSA pneumonia., Hx Sleep Apnea - Uses C Pap Denies: Hx Tuberculosis Neurological Medical History: Denies: Hx Seizures Endocrine Medical History: Reports: Hx Diabetes Mellitus Type 2. Denies: Hx Diabetes Mellitus Type 1, Hx Hyperthyroidism, Hx Hypothyroidism Renal/ Medical History: Reports: Hx Renal Insufficiency. Denies: Hx Peritoneal Dialysis GI Medical History: Reports: Hx Gastroesophageal Reflux Disease, Hx Hiatal Hernia. Denies: Hx Cirrhosis, Hx Hepatitis Musculoskeltal Medical History: Reports Hx Arthritis, Reports Hx Fibromyalgia, Reports Hx Gout, Reports Hx Muscle Weakness Skin Medical History: Denies Hx Eczema, Denies Hx Psoriasis Psychiatric Medical History: Reports: Hx Anxiety, Hx Depression Infectious Medical History: Reports: Hx MRSA. Denies: Hx Hepatitis Past Surgical History: Reports: Hx Appendectomy, Hx Cholecystectomy, Hx Hysterectomy, Hx Orthopedic Surgery - Multiple left hip procedures, 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 - Immunizations Hx Diphtheria, Pertussis, Tetanus Vaccination: Yes Hx Pneumococcal Vaccination: 05/20/13 Review of Systems - Review of Systems Notes: REVIEW OF SYSTEMS: CONSTITUTIONAL: +fevers, +chills EENT: -eye pain, -difficulty swallowing, -nasal congestion CARDIOVASCULAR: -chest pain, -syncope. RESPIRATORY: +cough, +SOB GASTROINTESTINAL: -abdominal pain, -nausea, -vomiting, -diarrhea GENITOURINARY: -dysuria, -hematuria MUSCULOSKELETAL: -back pain, -neck pain SKIN: -rash or skin lesions. HEMATOLOGIC: -easy bruising or bleeding. LYMPHATIC: -swollen, enlarged glands. NEUROLOGICAL: -altered mental status or loss of consciousness, -headache, - neurologic symptoms PSYCHIATRIC: -anxiety, -depression. ALL OTHER SYSTEMS REVIEWED AND NEGATIVE. Physical Exam - Vital signs Vitals: Resp BP Pulse Ox 27 H 104/61 93 07/15/17 05:45 07/15/17 05:45 07/15/17 05:45 - Notes Notes: PHYSICAL EXAMINATION: GENERAL: Chronically ill-appearing. HEAD: Atraumatic, normocephalic. EYES: Pupils equal round and reactive to light, extraocular movements intact, sclera anicteric, conjunctiva are normal. ENT: nares patent, oropharynx clear without exudates. Moist mucous membranes. NECK: Normal range of motion, supple without lymphadenopathy LUNGS: Diffuse crackles, mild tachypnea. HEART: Tachycardia, irregularly irregular rhythm. ABDOMEN: Soft, nontender, normoactive bowel sounds. No guarding, no rebound. No masses appreciated. EXTREMITIES: Normal range of motion, no pitting or edema. No cyanosis. NEUROLOGICAL: Cranial nerves grossly intact. Normal speech. Normal sensory and motor exams. PSYCH: Normal mood, normal affect. SKIN: Warm, Dry, normal turgor, no rashes or lesions noted. Course - Re-evaluation Re-evalutation: Pt mildly tachypneic with productive cough and fever. She is satting 92% on her home 2 L nasal cannula. Susupect a HCAP clinically. CXR shows possible left lingula atelectasis, but suspect that the CXR is lagging behind her clinical picture. Looking through prior cultures, she frequently grows out MRSA, ESBL and CRE in her urine. She is in severe sepsis today with a lactate of 4.2 and hypotension. Patient provided with 30 mL/kg and broad-specturm antibiotics. Her MAP remained below 65 and Norepinephrine started for septic shock. Pt confirms that she is DNR and DNI, but she would like IVF, Abx and a central line. Pt verbally consented for the central line. 07/15/17 10:[address] Ruvalcaba and will admit patient to ICU as Inpatient. - Vital Signs Vital signs: Temp Pulse Resp BP Pulse Ox 101.2 F H 20 81/55 L 94 07/15/17 05:50 07/15/17 07:20 07/15/17 07:20 07/15/17 07:20 - Laboratory Result Diagrams: 07/15/17 06:20 07/15/17 06:20 Laboratory results interpreted by me: 07/15/17 07/15/17 07/15/17 06:20 06:20 06:20 WBC 13.3 H RDW 15.0 H Seg Neuts % (Manual) 90 H Lymphocytes % (Manual) 3 L Monocytes % (Manual) 2 L Abs Neuts (Manual) 12.6 H Abs Lymphs (Manual) 0.4 L BUN 32 H Creatinine 1.38 H Est GFR ( Amer) 45 L Est GFR (Non-Af Amer) 37 L Glucose 141 H Lactic Acid 4.2 H AST 79 H ALT 59 H Alkaline Phosphatase 140 H Total Protein 6.1 L Ur Leukocyte Esterase Urine Ascorbic Acid 07/15/17 06:20 WBC RDW Seg Neuts % (Manual) Lymphocytes % (Manual) Monocytes % (Manual) Abs Neuts (Manual) Abs Lymphs (Manual) BUN Creatinine Est GFR ( Amer) Est GFR (Non-Af Amer) Glucose Lactic Acid AST ALT Alkaline Phosphatase Total Protein Ur Leukocyte Esterase SMALL H Urine Ascorbic Acid 40 H - Diagnostic Test Radiology reviewed: Image reviewed, Reports reviewed Radiology results interpreted by me: CXR: 1. Cardiomegaly. 2. Linear opacities in the left midlung likely represent atelectasis. - EKG Interpretation by Me EKG shows normal: QRS Complexes Rate: Tachycardia Rhythm: A.Fib When compared to previous EKG there are: No significant change Procedures - Central Line Right Internal jugular Time completed: 09:55 Consent obtained: Yes - Verbal consent witnessed by RN and Tech Central line pre-insertion: Sterile PPE donned, Chloraprep applied, Sterile drapes applied Central line size (Fr.): 18 Central line lumen type: Triple Anesthetic type: 1% Lidocaine mL's of anesthesia: 5 Ultrasound guided: Yes CM at insertion site: 16 Line secured with sutures: Yes Central line post-insertion: Blood return from lumens, Biopatch applied, Sutured , Sterile dressing applied, Position confirmed w/ CXR Number of attempts: 1 Complications: No Critical Care Note - Critical Care Note Total time excluding time spent on procedures (mins): 40 Discharge - Discharge Clinical Impression: Septic shock Pneumonia Qualifiers: Pneumonia type: due to unspecified organism Laterality: left Lung location: lower lobe of lung Qualified Code(s): J18.1 - Lobar pneumonia, unspecified organism Condition: Serious Disposition: ADMITTED INPATIENT Admitting Provider: Hospitalist - [facility] Unit Admitted: ICU
[2017-07-15] MEDS ORDERED: IBUPROFEN 600 MG TABLET PO ONE (06:38)
[2017-07-15] MEDS ORDERED: NORMAL SALINE 1000 ML 1,000 ML IV ONE (06:38)
[2017-07-15 06:55] LABS: APPEARANCE,URINE SLIGHTLY-CLOUDY; BILIRUBIN,URINE NEGATIVE (NEGATIVE); COLOR,URINE YELLOW; GLUCOSE, URINE NEGATIVE (NEGATIVE); KETONES,URINE NEGATIVE (NEGATIVE); LEUKOCYTE ESTERASE,URINE SMALL (NEGATIVE); NITRITE,URINE NEGATIVE (NEGATIVE); PROTEIN,URINE NEGATIVE (NEGATIVE); URINE SPECIFIC GRAVITY 1.011; UROBILINOGEN,URINE NEGATIVE mg/dL (<2.0)
[2017-07-15 06:56] LABS: HEMOGLOBIN 13.5 g/dL (12.0-15.5); MEAN CORPUSCULAR HEMOGLOBIN 28.7 pg (27.0-33.4); MEAN CORPUSCULAR VOLUME 87 fl (80-97); PLATELET COUNT 177 10^3/uL (150-450); RED BLOOD COUNT 4.71 10^6/uL (3.72-5.28); WHITE BLOOD COUNT 13.3 10^3/uL (4.0-10.5)
[2017-07-15 07:06] LABS: ALANINE AMINOTRANSFERASE 59 U/L (9-52); ALBUMIN 3.7 g/dL (3.5-5.0); ALKALINE PHOSPHATASE 140 U/L (38-126); ANION GAP 14 (5-19); ASPARTATE AMINO TRANSFERASE 79 U/L (14-36); BILIRUBIN,DIRECT 0.4 mg/dL (0.0-0.4); BILIRUBIN,TOTAL 0.4 mg/dL (0.2-1.3); BLOOD UREA NITROGEN 32 mg/dL (7-20); CALCIUM 10.1 mg/dL (8.4-10.2); CARBON DIOXIDE 30 mmol/L (22-30); CHLORIDE 100 mmol/L (98-107); CREATINE KINASE 30 U/L (30-135); GLUCOSE 141 mg/dL (75-110); LIPASE 35.9 U/L (23-300); POTASSIUM 3.9 mmol/L (3.6-5.0); SODIUM 144.1 mmol/L (137-145); TOTAL PROTEIN 6.1 g/dL (6.3-8.2)
[2017-07-15 07:06] LABS: A TYPE INFLUENZA AG NEGATIVE (NEGATIVE); B INFLUENZA AG NEGATIVE (NEGATIVE)
--- NOTE | 2017-07-15 07:09 | RADIOLOGY REPORT (SQ) ---
EXAM DESCRIPTION: CHEST SINGLE VIEW CLINICAL HISTORY: fever COMPARISON: 06/26/2017 FINDINGS: Single frontal view of the chest. Cardiomegaly. Low lung volumes. Tortuosity of thoracic aorta. Leads overlie the chest. Linear opacities in the left midlung. No pneumothorax or large effusion. Upper abdominal soft tissues unremarkable. Degenerative change of the left glenohumeral joint. Unchanged appearance of the proximal right humerus IMPRESSION: 1. Cardiomegaly. 2. Linear opacities in the left midlung likely represent atelectasis.
[2017-07-15 07:18] LABS: ABSOLUTE LYMPHOCYTES# (MANUAL) 0.4 10^3/uL (0.5-4.7); ABSOLUTE MONOCYTES # (MANUAL) 0.3 10^3/uL (0.1-1.4); ABSOLUTE NEUTROPHILS# (MANUAL) 12.6 10^3/uL (1.7-8.2); BAND NEUTROPHILS % (MANUAL) 5 % (3-5); BASOPHILS % (MANUAL) 0 % (0-2); EOSINOPHILS % (MANUAL) 0 % (0-6); LYMPHOCYTES % (MANUAL) 3 % (13-45); MONOCYTES % (MANUAL) 2 % (3-13); SEGMENTED NEUTROPHILS % (MAN) 90 % (42-78); TOTAL CELLS COUNTED 100
[2017-07-15 07:19] LABS: PLATELET COMMENT ADEQUATE; POIKILOCYTOSIS 1+; STOMATOCYTES 1+
[2017-07-15] MEDS ORDERED: IMIPENEM/CILASTATIN SODIUM INJ 500 MG VIAL IV ONE (07:20)
[2017-07-15] MEDS ORDERED: VANCOMYCIN HCL INJ 1000 MG VIAL IV ONE (07:20)
[2017-07-15] MEDS ORDERED: NORMAL SALINE 1000 ML 1,000 ML IV PRN ×2 (07:24→10:18)
[2017-07-15 07:35] LABS: VENOUS BLOOD BASE EXCESS 4.1 mmol/L; VENOUS BLOOD HCO3 29.9 mmol/L (20-32); VENOUS BLOOD PCO2 49.3 mmHg (35-63); VENOUS BLOOD PH 7.4 (7.30-7.42)
[2017-07-15] MEDS ORDERED: DEXTROSE 5%-WATER 250 ML with NOREPINEPHRINE BITARTRATE 4 MG IV PRN ×2 (08:00)
[2017-07-15] MEDS ORDERED: FENTANYL CITRATE INJ/PF 100 MCG/2 ML AMPUL IV ONE (09:54)
[2017-07-15] MEDS ORDERED: ACETAMINOPHEN 325 MG TABLET PO PRN (10:18)
[2017-07-15] MEDS ORDERED: ZOLPIDEM TARTRATE 5 MG TABLET PO PRN (10:18)
[2017-07-15] MEDS ORDERED: OXYCODONE-ACETAMINOPHEN 5-325 MG TABLET PO PRN (10:18)
[2017-07-15] MEDS ORDERED: ONDANSETRON HCL INJ/PF 4 MG/2 ML SDV IV PRN (10:18)
--- NOTE | 2017-07-15 10:20 | RADIOLOGY REPORT (SQ) ---
EXAM DESCRIPTION: CHEST SINGLE VIEW COMPLETED DATE/TIME: 07/15/2017 10:10 am REASON FOR STUDY: central line placement COMPARISON: 07/15/2017 EXAM PARAMETERS: NUMBER OF VIEWS: One view. TECHNIQUE: Single frontal radiographic view of the chest acquired. RADIATION DOSE: NA LIMITATIONS: None. FINDINGS: LUNGS AND PLEURA: No new opacities, masses or pneumothorax. No pleural effusion. MEDIASTINUM AND HILAR STRUCTURES: No masses. Contour normal. HEART AND VASCULAR STRUCTURES: Heart stable in size. Normal vasculature. BONES: No acute findings. HARDWARE: Interval placement right IJ venous catheter terminating within the upper SVC. OTHER: No other significant finding. IMPRESSION: SATISFACTORY PLACEMENT RIGHT IJ VENOUS CATHETER WITHOUT COMPLICATION. OTHERWISE STABLE APPEARANCE OF THE CHEST. TECHNICAL DOCUMENTATION: JOB ID: [id number] [employer]- All Rights Reserved
[2017-07-15] MEDS ORDERED: VANCOMYCIN HCL 0 MG in DEXTROSE 5%-WATER 250 ML IV NR (10:30)
[2017-07-15] MEDS ORDERED: MEROPENEM 1 GM VIAL IV SCH (10:30)
[2017-07-15] MEDS ORDERED: NOREPINEPHRINE BITARTRATE INJ/PF 4 MG/4 ML SDV IV ONE (10:33)
[2017-07-15] MEDS ORDERED: VANCOMYCIN HCL INJ 1000 MG VIAL ONE (10:36)
[2017-07-15] MEDS: NORMAL SALINE 1000 ML 1,000 ML IV PRN ×2 (12:23→21:35)
[2017-07-15] MEDS: MEROPENEM 1 GM in NORMAL SALINE 50 ML IV SCH ×2 (13:14→23:30)
[2017-07-15] MEDS: ALBUTEROL SULFATE 0.083% NEB 2.5 MG/3 ML AMPUL NEB SCH ×4 (13:27→18:22)
--- NOTE | 2017-07-15 13:33 | PDOC H&P ---
History of Present Illness Patient complains of: Chest pain or shortness of breath worse today. History of Present Illness: PORSHA WALDRON is a 72 year old female was transferred from [facility] since patient has been having fever and cough. Patient states that since she was recently discharged from this facility she had not been doing well. She had been getting cough, chest pain and shortness of breath. Patient admits that she is DO NOT RESUSCITATE. She has been getting more and more ready with the idea that she will . On arrival to emergency room patient was hypotensive. Required insertion of is right IJ. Was administered 3 L of normal saline and was placed on levophed. MAP at the time of consulting was 60. Due to presentation of multiple comorbidities our service was consulted and prompted to admit for further management. Patient is on steroids chronically due to severe COPD. Past Medical History Cardiac Medical History: Reports: Atrial Fibrillation, Congestive Heart Failure - Diastolic dysfunction, Myocardial Infarction, Hypertension - essential, Pulmonary Embolism, Heart Murmur Denies: Coronary Artery Disease, DVT, Hyperlipidema, Peripheral Vascular Disease Pulmonary Medical History: Reports: Asthma, Bronchitis, Chronic Obstructive Pulmonary Disease (COPD), Pneumonia - Recurrent MRSA pneumonia., Sleep Apnea - Uses C Pap Denies: Tuberculosis EENT Medical History: Reports: Cataracts Neurological Medical History: Denies: Seizures Endocrine Medical History: Reports: Diabetes Mellitus Type 2 Denies: Diabetes Mellitus Type 1, Hyperthyroidism, Hypothyroidism Malignancy Medical History: Reports: None GI Medical History: Reports: Gastroesophageal Reflux Disease, Hiatal Hernia Denies: Cirrhosis, Hepatitis Musculoskeltal Medical History: Reports: Arthritis, Fibromyalgia, Gout Skin Medical History: Denies: Eczema, Psoriasis Psychiatric Medical History: Reports: Depression Traumatic Medical History: Reports: None Hematology: Reports: Anemia Infectious Medical History: Reports: Methicillin-Resistant Staph Aureus Past Surgical History Past Surgical History: Reports: Appendectomy, Cholecystectomy, Hysterectomy, Orthopedic Surgery - Multiple left hip procedures, 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 Social History Information Source: Patient, [facility] Records Lives with: [facility] Smoking Status: Never Smoker Frequency of Alcohol Use: None Hx Recreational Drug Use: No Drugs: None Hx Prescription Drug Abuse: No - Advance Directive Resuscitation Status: Do Not Resuscitate Family History Family History: Arthritis, CAD, CVA, DM, Hypertension Parental Family History Reviewed: Yes Children Family History Reviewed: Yes Sibling(s) Family History Reviewed.: Yes Medication/Allergy Allergies/Adverse Reactions: Sulfa (Sulfonamide Antibiotics) Allergy (Intermediate, Verified 06/26/17 12:49) adhesive tape Allergy (Verified 06/26/17 12:49) atorvastatin calcium [From Lipitor] Allergy (Verified 06/26/17 12:49) celecoxib [From Celebrex] Allergy (Verified 06/26/17 12:49) Review of Systems Constitutional: PRESENT: fatigue, fever(s), weakness. ABSENT: night sweats Eyes: ABSENT: visual disturbances Ears: ABSENT: hearing changes Nose, Mouth, and Throat: ABSENT: headache(s), mouth pain, sore throat Cardiovascular: PRESENT: chest pain Respiratory: PRESENT: cough, dyspnea Gastrointestinal: ABSENT: abdominal pain, diarrhea, nausea, vomiting Genitourinary: ABSENT: difficulty urinating, dysuria Neurological: PRESENT: weakness Psychiatric: PRESENT: depression Hematologic/Lymphatic: ABSENT: lymphadenopathy Physical Exam Vital Signs: Temp Pulse Resp BP Pulse Ox 101.2 F H 20 81/55 L 94 07/15/17 05:50 07/15/17 07:20 07/15/17 07:20 07/15/17 07:20 Intake & Output 07/14/17 07/15/17 07/16/17 06:59 06:59 06:59 Weight 97.522 kg General appearance: PRESENT: cooperative, obese Eye exam: PRESENT: conjunctiva pink, EOMI, periorbital swelling, PERRLA. ABSENT : scleral icterus Ear exam: PRESENT: normal external ear exam Mouth exam: PRESENT: moist Neck exam: ABSENT: JVD, lymphadenopathy, tenderness, thyromegaly Respiratory exam: PRESENT: crackles, decreased breath sounds, tachypnea Cardiovascular exam: PRESENT: tachycardia. ABSENT: diastolic murmur, systolic murmur Vascular exam: PRESENT: normal capillary refill GI/Abdominal exam: PRESENT: normal bowel sounds, soft. ABSENT: tenderness Extremities exam: PRESENT: pedal edema, other Neurological exam: PRESENT: alert, oriented to person, oriented to place, oriented to time, other - bedridden Psychiatric exam: PRESENT: depressed Skin exam: PRESENT: erythema - facial Results Laboratory Results: 07/15/17 06:20 07/15/17 06:20 07/15/17 07/15/17 07/15/17 06:20 06:20 06:20 WBC 13.3 H RBC 4.71 Hgb 13.5 Hct 41.0 MCV 87 MCH 28.7 MCHC 33.0 RDW 15.0 H Plt Count 177 Seg Neutrophils % Not Reportable Lymphocytes % Not Reportable Monocytes % Not Reportable Eosinophils % Not Reportable Basophils % Not Reportable Absolute Neutrophils Not Reportable Absolute Lymphocytes Not Reportable Absolute Monocytes Not Reportable Absolute Eosinophils Not Reportable Absolute Basophils Not Reportable VBG pH VBG pCO2 VBG HCO3 VBG Base Excess Sodium 144.1 Potassium 3.9 Chloride 100 Carbon Dioxide 30 Anion Gap 14 BUN 32 H Creatinine 1.38 H Est GFR ( Amer) 45 L Est GFR (Non-Af Amer) 37 L Glucose 141 H Lactic Acid 4.2 H Calcium 10.1 Total Bilirubin 0.4 AST 79 H ALT 59 H Alkaline Phosphatase 140 H Total Protein 6.1 L Albumin 3.7 Lipase 35.9 Urine Color Urine Appearance Urine pH Ur Specific [place] Urine Protein Urine Glucose (UA) Urine Ketones Urine Blood Urine Nitrite Ur Leukocyte Esterase Urine WBC (Auto) Urine RBC (Auto) 07/15/17 07/15/17 06:20 06:20 WBC RBC Hgb Hct MCV MCH MCHC RDW Plt Count Seg Neutrophils % Lymphocytes % Monocytes % Eosinophils % Basophils % Absolute Neutrophils Absolute Lymphocytes Absolute Monocytes Absolute Eosinophils Absolute Basophils VBG pH 7.40 VBG pCO2 49.3 VBG HCO3 29.9 VBG Base Excess 4.1 Sodium Potassium Chloride Carbon Dioxide Anion Gap BUN Creatinine Est GFR ( Amer) Est GFR (Non-Af Amer) Glucose Lactic Acid Calcium Total Bilirubin AST ALT Alkaline Phosphatase Total Protein Albumin Lipase Urine Color YELLOW Urine Appearance SLIGHTLY-CLOUDY Urine pH 5.0 Ur Specific [place] 1.011 Urine Protein NEGATIVE Urine Glucose (UA) NEGATIVE Urine Ketones NEGATIVE Urine Blood NEGATIVE Urine Nitrite NEGATIVE Ur Leukocyte Esterase SMALL H Urine WBC (Auto) 15 Urine RBC (Auto) 2 07/15/17 07/15/17 06:20 06:20 Creatine Kinase 30 NT-Pro-B Natriuret Pep 559 Impressions: Chest X-Ray 07/15/17 09:51 IMPRESSION: SATISFACTORY PLACEMENT RIGHT IJ VENOUS CATHETER WITHOUT COMPLICATION. OTHERWISE STABLE APPEARANCE OF THE CHEST. Assessment & Plan - Diagnosis (1) Septic shock Is this a current diagnosis for this admission?: Yes Plan: Continue Levophed which was started in emergency room and fluids. Patient does have a history of diastolic dysfunction and recommend close monitoring of fluids. To order Barton. To order meropenem and continue vancomycin IV. Patient to be admitted to ICU. To request lactic acid every 2 hours x3. (2) ARF (acute renal failure) Qualifiers: Acute renal failure type: unspecified Qualified Code(s): N17.9 - Acute kidney failure, unspecified Is this a current diagnosis for this admission?: Yes Plan: Likely due to septic shock. We will trend renal function. To order Barton catheter since patient states that she had not been able to pass water since she has been in emergency room. To order Flomax (3) Acute and chronic respiratory failure Qualifiers: Respiratory failure complication: hypoxia Qualified Code(s): J96.21 - Acute and chronic respiratory failure with hypoxia Is this a current diagnosis for this admission?: Yes Plan: Continue oxygen supplementation and CPAP (4) Adrenal insufficiency Is this a current diagnosis for this admission?: Yes (5) Anemia Qualifiers: Anemia type: iron deficiency Iron deficiency anemia type: other iron deficiency Qualified Code(s): D50.8 - Other iron deficiency anemias Is this a current diagnosis for this admission?: Yes Plan: Stable and to trend (6) Functional quadriplegia Is this a current diagnosis for this admission?: Yes Plan: Patient debilitated. Supportive and recommend decubiti precautions (7) Sleep apnea Qualifiers: Sleep apnea type: obstructive Qualified Code(s): G47.33 - Obstructive sleep apnea (adult) (pediatric) Is this a current diagnosis for this admission?: Yes Plan: Continue CPAP while in-house (8) COR (chronic cor pulmonale) Is this a current diagnosis for this admission?: Yes Plan: Patient is on Lasix as well for a history of diastolic dysfunction. Recommend to restart as soon as blood pressure allows (9) COPD exacerbation Is this a current diagnosis for this admission?: Yes Plan: Patient will be placed on nebulizer treatment, IV steroids, Daliresp and Mucinex - Time Time Spent: 50 to 70 Minutes Medications reviewed and adjusted accordingly: Yes Anticipated discharge: SNF Within: within 72 hours - Inpatient Certification Based on my medical assessment, after consideration of the patient's comorbidities, presenting symptoms, or acuity I expect that the services needed warrant INPATIENT care.: Yes I certify that my determination is in accordance with my understanding of Medicare's requirements for reasonable and necessary INPATIENT services [42 CFR 412.3e].: Yes Medical Necessity: Need Close Monitoring Due to Risk of Patient Decompensation, Need For IV Fluids, Need for IV Antibiotics
[2017-07-15] MEDS ORDERED: DEXTROSE 40% GEL 15 GM TUBE PO PRN ×2 (13:34)
[2017-07-15] MEDS ORDERED: GLUCAGON,HUMAN RECOMB 1 MG INJ IM PRN (13:34)
[2017-07-15] MEDS ORDERED: DEXTROSE 50%-WATER 25 GM/50 ML DISP.SYRIN IV PRN ×2 (13:34)
[2017-07-15] MEDS: IPRATROPIUM/ALBUTEROL 0.5-2.5 MG/3 ML AMPUL NEB SCH ×2 (14:32→20:36)
[2017-07-15] MEDS: HEPARIN SOD (PORCINE) 5,000 UNIT/ML 1 ML SYRINGE SUBCUT SCH ×2 (15:00→21:35)
[2017-07-15] MEDS: METHYLPREDNISOLONE INJ 40 MG/1 ML SDV IV SCH ×2 (15:01→21:30)
[2017-07-15] MEDS: ROFLUMILAST 500 MCG TABLET PO SCH (15:01)
--- NOTE | 2017-07-15 17:19 | EKG REPORT ---
SEVERITY:- ABNORMAL ECG - SINUS TACHYCARDIA MULTIPLE ATRIAL PREMATURE COMPLEXES LEFT POSTERIOR FASCICULAR BLOCK CONSIDER LEFT VENTRICULAR HYPERTROPHY ABNORMAL T, CONSIDER ISCHEMIA, INFERIOR LEADS : Confirmed by: Jung Olvera 15-Jul-2017 17:18:39
[2017-07-15] MEDS: OXYCODONE-ACETAMINOPHEN 5-325 MG TABLET PO PRN (21:30)
[2017-07-15] MEDS: INSULIN LISPRO 100 UNIT/ML 3 ML VIAL SUBCUT PRN (21:52)
[2017-07-15] MEDS ORDERED: METOPROLOL TARTRATE PF/INJ 5 MG/5 ML SDV IV ONE (23:25)
[2017-07-15] MEDS ORDERED: METOPROLOL TARTRATE PF/INJ 5 MG/5 ML SDV IV PRN (23:30)
[2017-07-16] MEDS ORDERED: DILTIAZEM HCL INJ 25 MG/5 ML VIAL ONE (02:18)
[2017-07-16] MEDS ORDERED: DILTIAZEM HCL INJ 25 MG/5 ML VIAL IV ONE (02:30)
[2017-07-16] MEDS: OXYCODONE-ACETAMINOPHEN 5-325 MG TABLET PO PRN ×2 (04:50→21:18)
[2017-07-16] MEDS: METHYLPREDNISOLONE INJ 40 MG/1 ML SDV IV SCH ×3 (04:52→21:19)
[2017-07-16] MEDS: HEPARIN SOD (PORCINE) 5,000 UNIT/ML 1 ML SYRINGE SUBCUT SCH ×3 (04:53→21:15)
[2017-07-16 05:48] LABS: HEMATOCRIT 35.6 % (36.0-47.0); HEMOGLOBIN 11.5 g/dL (12.0-15.5); MEAN CORPUSCULAR HEMOGLOBIN 28.5 pg (27.0-33.4); MEAN CORPUSCULAR HGB CONC 32.4 g/dL (32.0-36.0); MEAN CORPUSCULAR VOLUME 88 fl (80-97); PLATELET COUNT 117 10^3/uL (150-450); RED BLOOD COUNT 4.04 10^6/uL (3.72-5.28); RED CELL DISTRIBUTION WIDTH 15.1 % (11.5-14.0); WHITE BLOOD COUNT 23.2 10^3/uL (4.0-10.5)
[2017-07-16 05:56] LABS: ANION GAP 9 (5-19); BLOOD UREA NITROGEN 27 mg/dL (7-20); CALCIUM 8.7 mg/dL (8.4-10.2); CARBON DIOXIDE 28 mmol/L (22-30); CHLORIDE 106 mmol/L (98-107); GLUCOSE 236 mg/dL (75-110); PHOSPHORUS 3.6 mg/dL (2.5-4.5); POTASSIUM 4.4 mmol/L (3.6-5.0)
[2017-07-16] MEDS: VANCOMYCIN HCL 1,500 MG in DEXTROSE 5%-WATER 250 ML IV SCH (06:04)
[2017-07-16] MEDS: NORMAL SALINE 1000 ML 1,000 ML IV PRN (06:06)
[2017-07-16 06:51] LABS: ABSOLUTE LYMPHOCYTES# (MANUAL) 0.7 10^3/uL (0.5-4.7); ABSOLUTE MONOCYTES # (MANUAL) 0.9 10^3/uL (0.1-1.4); ABSOLUTE NEUTROPHILS# (MANUAL) 21.6 10^3/uL (1.7-8.2); BAND NEUTROPHILS % (MANUAL) 3 % (3-5); BASOPHILS % (MANUAL) 0 % (0-2); EOSINOPHILS % (MANUAL) 0 % (0-6); LYMPHOCYTES % (MANUAL) 3 % (13-45); MONOCYTES % (MANUAL) 4 % (3-13); SEGMENTED NEUTROPHILS % (MAN) 90 % (42-78); TOTAL CELLS COUNTED 100
[2017-07-16 06:52] LABS: ANISOCYTOSIS SLIGHT; OVALOCYTES SLIGHT; PLATELET COMMENT DECREASED; POIKILOCYTOSIS SLIGHT; TEAR DROP CELLS SLIGHT; TOXIC GRANULATION SLIGHT
[2017-07-16] MEDS: DOCUSATE SODIUM 100 MG CAPSULE PO SCH (08:35)
[2017-07-16] MEDS ORDERED: DILTIAZEM HCL 60 MG TABLET PO ONE (09:00)
[2017-07-16] MEDS ORDERED: FUROSEMIDE INJ/PF 20 MG/2 ML SDV IV ONE (09:00)
[2017-07-16] MEDS: IPRATROPIUM/ALBUTEROL 0.5-2.5 MG/3 ML AMPUL NEB SCH ×3 (09:13→19:40)
[2017-07-16] MEDS: FENTANYL 25 MCG/HR PATCH.TD72 TD SCH (09:50)
[2017-07-16] MEDS: GUAIFENESIN 600 MG TABLET.SA PO SCH ×2 (09:52→21:17)
[2017-07-16] MEDS: POLYETHYLENE GLYCOL 3350 POWDER 17 GM/1 PACKET PO SCH ×2 (09:53→17:12)
[2017-07-16] MEDS: PREGABALIN 75 MG CAPSULE PO SCH ×2 (09:54→21:17)
[2017-07-16] MEDS ORDERED: METOPROLOL SUCCINATE 50 MG TAB.SR.24H PO SCH ×2 (10:00→10:41)
[2017-07-16] MEDS: INSULIN LISPRO 100 UNIT/ML 3 ML VIAL SUBCUT PRN ×4 (10:01→21:15)
[2017-07-16] MEDS: TAMSULOSIN HCL 0.4 MG CAP.SR.24H PO SCH (10:07)
[2017-07-16] MEDS: RANOLAZINE 500 MG TAB.SR.12H PO SCH ×2 (10:07→21:16)
[2017-07-16] MEDS: INSULIN DETEMIR 100 UNIT/ML 3 ML PEN SUBCUT SCH (10:08)
[2017-07-16] MEDS ORDERED: DILTIAZEM HCL/D5W 125 MG/125 ML RTUINJ IV PRN (11:16)
[2017-07-16] MEDS ORDERED: METOPROLOL SUCCINATE 50 MG TAB.SR.24H PO ONE ×2 (11:30→12:30)
--- NOTE | 2017-07-16 11:36 | PDOC PROGRESS REPORT ---
Subjective Progress Note for:: 07/16/17 Subjective:: Patient complains of suffering from constipation and having a lot of gas. Patient also complained of soreness in her mouth and headache. She suffers from long-standing problems with headache. Reports that she is feeling better when compared to yesterday. Review of systems All organ systems evaluated and negative except as in subjective All laboratories and significant diagnostics have been reviewed Reason For Visit: SEPTIC SHOCK Physical Exam Vital Signs: Temp Pulse Resp BP Pulse Ox 97.2 F 86 17 149/82 H 98 07/16/17 05:10 07/15/17 20:35 07/16/17 06:00 07/16/17 05:26 07/16/17 06:00 Intake & Output 07/15/17 07/16/17 07/17/17 06:59 06:59 06:59 Intake Total 2972 Output Total 1125 Balance 1847 Weight 103 kg General appearance: PRESENT: no acute distress, cooperative, obese Head exam: PRESENT: atraumatic, normocephalic Eye exam: PRESENT: conjunctiva pink, EOMI, PERRLA, other - Mild edema of sclera Ear exam: PRESENT: normal external ear exam Mouth exam: PRESENT: moist, neck supple, other - Beefy tongue Neck exam: PRESENT: full ROM. ABSENT: JVD, tenderness, thyromegaly Respiratory exam: PRESENT: decreased breath sounds, rhonchi. ABSENT: tachypnea , unlabored Cardiovascular exam: PRESENT: tachycardia. ABSENT: diastolic murmur, systolic murmur Vascular exam: PRESENT: normal capillary refill GI/Abdominal exam: PRESENT: distended, normal bowel sounds, soft. ABSENT: tenderness Extremities exam: PRESENT: +2 edema. ABSENT: joint swelling Neurological exam: PRESENT: alert, oriented to person, oriented to place, oriented to time Skin exam: PRESENT: intact, normal color Results Laboratory Results: 07/16/17 04:35 07/16/17 04:35 07/15/17 07/16/17 07/16/17 11:30 04:35 04:35 WBC 23.2 H RBC 4.04 Hgb 11.5 L Hct 35.6 L MCV 88 MCH 28.5 MCHC 32.4 RDW 15.1 H Plt Count 117 L Seg Neutrophils % Not Reportable Lymphocytes % Not Reportable Monocytes % Not Reportable Eosinophils % Not Reportable Basophils % Not Reportable Absolute Neutrophils Not Reportable Absolute Lymphocytes Not Reportable Absolute Monocytes Not Reportable Absolute Eosinophils Not Reportable Absolute Basophils Not Reportable Sodium 143.0 Potassium 4.4 Chloride 106 Carbon Dioxide 28 Anion Gap 9 BUN 27 H Creatinine 1.00 Est GFR ( Amer) > 60 Est GFR (Non-Af Amer) 54 L Glucose 236 H Lactic Acid 2.6 H Calcium 8.7 Phosphorus 3.6 Magnesium 2.0 Impressions: Chest X-Ray 07/15/17 09:51 IMPRESSION: SATISFACTORY PLACEMENT RIGHT IJ VENOUS CATHETER WITHOUT COMPLICATION. OTHERWISE STABLE APPEARANCE OF THE CHEST. Assessment & Plan - Diagnosis (1) Septic shock Is this a current diagnosis for this admission?: Yes Plan: Resolved. Discontinue Levophed and IV fluids. Continue meropenem and vancomycin. So far culprit appears to be due to urinary tract infection (2) ARF (acute renal failure) Qualifiers: Acute renal failure type: unspecified Qualified Code(s): N17.9 - Acute kidney failure, unspecified Is this a current diagnosis for this admission?: Yes Plan: Resolving and trend (3) Acute and chronic respiratory failure Qualifiers: Respiratory failure complication: hypoxia Qualified Code(s): J96.21 - Acute and chronic respiratory failure with hypoxia Is this a current diagnosis for this admission?: Yes Plan: Continue oxygen supplementation and CPAP. Appears more comfortable today. Will order a dose of Lasix as she does have a history of diastolic dysfunction and received 3 L of fluid on admission while in ER (4) Adrenal insufficiency Is this a current diagnosis for this admission?: Yes Plan: Continue steroids (5) Anemia Qualifiers: Anemia type: iron deficiency Iron deficiency anemia type: other iron deficiency Qualified Code(s): D50.8 - Other iron deficiency anemias Is this a current diagnosis for this admission?: Yes Plan: There has been an acute drop however I do not think that patient is acutely bleeding but it was mostly due to volume contraction on admission. Will trend (6) Functional quadriplegia Is this a current diagnosis for this admission?: Yes Plan: Patient debilitated. Supportive and recommend decubiti precautions (7) Sleep apnea Qualifiers: Sleep apnea type: obstructive Qualified Code(s): G47.33 - Obstructive sleep apnea (adult) (pediatric) Is this a current diagnosis for this admission?: Yes Plan: Continue CPAP while in-house (8) COR (chronic cor pulmonale) Is this a current diagnosis for this admission?: Yes Plan: Patient is on Lasix as well for a history of diastolic dysfunction. To restart Lasix (9) COPD exacerbation Is this a current diagnosis for this admission?: Yes Plan: Continue present management and to add Mucomyst (10) HTN (hypertension) Qualifiers: Hypertension type: essential hypertension Qualified Code(s): I10 - Essential (primary) hypertension Is this a current diagnosis for this admission?: Yes Plan: To place on Toprol 100 mg p.o. daily. Will hold of Cardizem since patient having sustained tachycardia which is probably atrial fibrillation (11) Tachycardia Is this a current diagnosis for this admission?: Yes Plan: Persisting. Order EKG and to start Cardizem drip (12) Chronic headache Is this a current diagnosis for this admission?: Yes Plan: Restart Fioricet (13) Chronic pain Qualifiers: Chronic pain type: chronic pain syndrome Qualified Code(s): G89.4 - Chronic pain syndrome Is this a current diagnosis for this admission?: Yes Plan: Patient suffers from chronic pain which is multiple factorial including fibromyalgia. To continue outpatient regimen since patient opioid dependant (15) Constipation Qualifiers: Constipation type: unspecified constipation type Qualified Code(s): K59.00 - Constipation, unspecified Is this a current diagnosis for this admission?: Yes Plan: Multifactorial to placing bowel regimen and follow up response (16) Leukocytosis Qualifiers: Leukocytosis type: unspecified Qualified Code(s): D72.829 - Elevated white blood cell count, unspecified Is this a current diagnosis for this admission?: Yes Plan: May relate to leukocytes emargination secondary to steroid use. To trend. Patient clinically better - Time Time Spent with patient: 15-24 minutes Medications reviewed and adjusted accordingly: Yes Anticipated discharge: SNF Within: within 72 hours - Inpatient Certification Based on my medical assessment, after consideration of the patient's comorbidities, presenting symptoms, or acuity I expect that the services needed warrant INPATIENT care.: Yes I certify that my determination is in accordance with my understanding of Medicare's requirements for reasonable and necessary INPATIENT services [42 CFR 412.3e].: Yes Medical Necessity: Need Close Monitoring Due to Risk of Patient Decompensation, Need For Continuous Telemetry Monitoring, Need for Nebulizer Therapy and Monitoring of Response, Need for IV Antibiotics
[2017-07-16] MEDS ORDERED: DILTIAZEM HCL 60 MG TABLET PO SCH ×2 (12:00→14:00)
[2017-07-16] MEDS ORDERED: NYSTATIN 500000 UNIT/5 ML UDCUP PO SCH (12:00)
[2017-07-16] MEDS: MEROPENEM 1 GM in NORMAL SALINE 50 ML IV SCH ×2 (13:37→23:34)
[2017-07-16] MEDS: NYSTATIN 500000 UNIT/5 ML UDCUP PO SCH ×3 (13:40→23:35)
[2017-07-16] MEDS: ROFLUMILAST 500 MCG TABLET PO SCH (13:41)
[2017-07-16] MEDS: ACETYLCYSTEINE 10% NEB 400 MG/4 ML VIAL NEB SCH ×2 (14:52→19:40)
[2017-07-16] MEDS: DILTIAZEM HCL 60 MG TABLET PO SCH ×2 (17:11→23:35)
[2017-07-16] MEDS ORDERED: NITROGLYCERIN 0.4 MG/TAB 25 TAB/BOTTLE SL PRN (17:33)
[2017-07-16] MEDS ORDERED: PROMETHAZINE HCL 25 MG TABLET PO PRN (17:33)
[2017-07-16] MEDS: FERROUS SULFATE 325 MG TABLET PO SCH (18:11)
[2017-07-16] MEDS ORDERED: DULOXETINE HCL 30 MG CAPSULE.DR PO ONE (20:00)
[2017-07-16] MEDS ORDERED: ASPIRIN 81 MG TABLET, CHEWABLE PO ONE (20:00)
--- NOTE | 2017-07-16 20:25 | EKG REPORT ---
SEVERITY:- ABNORMAL ECG - SINUS RHYTHM WITH FREQUENT APCs SUPRAVENTRICULAR BIGEMINY INCOMPLETE LEFT BUNDLE BRANCH BLOCK PROBABLE LVH WITH SECONDARY REPOL ABNRM : Confirmed by: Jung Olvera 16-Jul-2017 20:24:49
[2017-07-16] MEDS: ZOLPIDEM TARTRATE 5 MG TABLET PO PRN (21:16)
[2017-07-16] MEDS: HYDRALAZINE HCL 25 MG TABLET PO SCH (21:17)
[2017-07-16] MEDS ORDERED: FUROSEMIDE 20 MG TABLET PO SCH (22:00)
--- NOTE | 2017-07-16 23:20 | Palliative Consultation Report ---
Consultation From:: CHERYL RAE - [facility] HPI: Palliative Consult Visit 07/16/17 2:45- 3:05pm Appreciate palliative consult with this 72 year old woman known to me from previous palliative care visits. Today, Ms Fernandez is asleep using her Bipap at 30 % oxygen. She did not seem to be in any distress. she is admitted this time with septic shock requiring Levophed to maintain B/P on admission. In the past we have discussed hospice services for Ms. Fernandez, however, she does not want to give up the option of being hospitalized for antibiotics when she needs to. She has always responded well to the antibiotics although it is difficult to treat the infections she frequently has gotten. Patient has had issues with compliance with diet and problems with chronic pain in the past. Will discuss these problems with her when I can visit without disturbing her sleep. At present nurse reports patient has good control of symptoms and no acute needs for management. She is DNR as per her request. Onset: Last week Onset/Duration: Persistent Associated Symptoms: Shortness of breath Past Medical History(Consults) - General Information Source: [facility] Records Home Medications: Acetaminophen [Tylenol 325 mg Tablet] 650 mg PO Q4HP PRN 07/16/17 Albuterol Sulfate [Proair Hfa Inhalation Aerosol 8.5 gm Mdi] 2 puff IH Q6HP PRN 07/16/17 Ascorbic Acid [Vitamin C 500 mg Tablet] 500 mg PO BID 07/16/17 Aspirin [Aspirin 81 mg Chewable Tablet] 81 mg PO DAILY 07/16/17 Baclofen [Baclofen 10 mg Tablet] 10 mg PO Q8HP PRN 07/16/17 Benzocaine/Menthol [Chloraseptic Sore Throat Lozenge] 1 lozenge MM Q1HP PRN Benzonatate [Tessalon Perles 100 mg Capsule] 200 mg PO Q8HP PRN 07/16/17 Biotin [Biotin 1 mg Tablet] 1 mg PO DAILY PRN 07/16/17 Budesonide [Pulmicort 180 mcg Flexhaler] 2 puff IH Q12 07/16/17 Budesonide [Pulmicort Neb 0.5 mg/2 ml Ampul] 0.5 mg NEB RTQ12 07/16/17 Buspirone HCl [Buspar 5 mg Tablet] 5 mg PO Q12 07/16/17 Butalb/Acetaminophen/Caffeine [Fioricet (50-325-40 mg) Tablet] 2 tab PO Q6HP PRN MDD 6 TABS 07/16/17 Carboxymethylcellulose Sodium [Refresh Plus 0.5% Oph Soln 0.4 ml Droperette] 1 drop OU QIDP PRN 07/16/17 Diltiazem HCl [Cardizem 60 mg Tablet] 60 mg PO Q8 07/16/17 Diphenhydramine HCl [Benadryl] 25 mg PO Q6HP PRN 07/16/17 Docusate Sodium [Colace 100 mg Capsule] 100 mg PO BID 07/16/17 Duloxetine HCl [Cymbalta] 90 mg PO DAILY 07/16/17 Ergocalciferol (Vitamin D2) [Drisdol 50,000 Unit (1.25MG) Capsule] 50,000 unit PO MO@1000 07/16/17 Fentanyl [Duragesic 25 Mcg/Hr Transdermal Patch] 1 each TD Q3D 07/16/17 Ferrous Sulfate [Feosol 325 mg Tablet] 325 mg PO BID 07/16/17 Fluticasone Propionate [Flonase Nasal Eaton 50 Mcg/Eaton 16 gm] 2 sprays NASL DAILY 07/16/17 Furosemide [Lasix 20 mg Tablet] 20 mg PO QPM 07/16/17 Furosemide [Lasix 40 mg Tablet] 40 mg PO QAM 07/16/17 Insulin Detemir [Levemir Flextouch] 30 unit SQ DAILY 07/16/17 Insulin Lispro [Humalog Insulin 100 Unit/1 ml 3 ml Vial] 0 unit SUBCUT .SLD SCALE 07/16/17 Ipratropium/Albuterol Sulfate [Duoneb 3 ml Ampul] 3 ml NEB [id number] 07/16/17 Lactulose [Enulose 10 gm/15 mL Oral Solution] 10 gm PO BIDP PRN 07/16/17 Levalbuterol HCl [Xopenex Neb 0.63 mg/3 ml Ampul] 0.63 mg NEB RTQ8 07/16/17 Lidocaine [Lidoderm 5% (700 mg) Transdermal Patch] 3 patch TP DAILY 07/16/17 Linaclotide [Linzess 145 Mcg Capsule] 145 mcg PO DAILY 07/16/17 Loratadine [Claritin 10 mg Tablet] 10 mg PO DAILY 07/16/17 Magnesium Hydroxide [Milk of Magnesia 30 ml Udcup] 30 ml PO DAILYP PRN 07/16/17 Melatonin/Pyridoxine [Melatonin 5 mg Tablet] 10 mg PO QHS 07/16/17 Menthol [Biofreeze] 1 applic TP PRN PRN 07/16/17 Metoprolol Tartrate [Lopressor 25 mg Tablet] 25 mg PO Q12 07/16/17 Nitroglycerin [Nitrostat 0.4 mg (1/150 Gr) Tabs 25/Bottle] 1 tab SL Q5MP PRN Omeprazole 20 mg PO Q6AM 07/16/17 Oxycodone HCl [Oxy-Ir 5 mg Tablet] 10 mg PO Q6 07/16/17 Polyethylene Glycol 3350 [Miralax Powder 17 gm/Packet] 1 packet PO DAILY Potassium Chloride [Klor-Con 10 Meq Tablet.sa] 40 meq PO DAILY 07/16/17 Prednisone [Deltasone 20 mg Tablet] 40 mg PO DAILY 07/16/17 Pregabalin [Lyrica 75 mg Capsule] 150 mg PO Q8 07/16/17 Promethazine HCl [Phenergan 25 mg Tablet] 25 mg PO Q6HP PRN 07/16/17 Ranitidine HCl [Zantac 150 mg Tablet] 150 mg PO BID 07/16/17 Ranolazine [Ranexa 500 mg Tab.sr] 500 mg PO Q12 07/16/17 Sennosides/Docusate 8.6-50 mg [Senna Plus Tablet] 1 tab PO QHS 07/16/17 Allergies/Adverse Reactions: Sulfa (Sulfonamide Antibiotics) Allergy (Intermediate, Verified 06/26/17 12:49) adhesive tape Allergy (Verified 06/26/17 12:49) atorvastatin calcium [From Lipitor] Allergy (Verified 06/26/17 12:49) celecoxib [From Celebrex] Allergy (Verified 06/26/17 12:49) - Social History Lives with: Usp, Other Family History: Arthritis, CAD, CVA, DM, Hypertension Parental Family History Reviewed: No Children Family History Reviewed: No Sibling(s) Family History Reviewed.: No Smoking Status: Never Smoker Frequency of Alcohol Use: None Hx Recreational Drug Use: No Drugs: None Hx Prescription Drug Abuse: No - Past Medical History Cardiac Medical History: Reports: Hx Atrial Fibrillation, Hx Congestive Heart Failure - Diastolic dysfunction, Hx Heart Attack, Hx Hypertension - essential, Hx Pulmonary Embolism, Hx Heart Murmur Denies: Hx Coronary Artery Disease, Hx DVT, Hx Hypercholesterolemia, Hx Peripheral Vascular Disease Pulmonary Medical History: Reports: Hx Asthma, Hx Bronchitis, Hx COPD, Hx Pneumonia - Recurrent MRSA pneumonia., Hx Sleep Apnea - Uses C Pap Denies: Hx Tuberculosis Neurological Medical History: Denies: Hx Seizures Endocrine Medical History: Reports: Hx Diabetes Mellitus Type 2. Denies: Hx Diabetes Mellitus Type 1, Hx Hyperthyroidism, Hx Hypothyroidism Renal/ Medical History: Reports: Hx Renal Insufficiency. Denies: Hx Peritoneal Dialysis Malignancy Medical History: Reports: None GI Medical History: Reports: Hx Gastroesophageal Reflux Disease, Hx Hiatal Hernia. Denies: Hx Cirrhosis, Hx Hepatitis Musculoskeltal Medical History: Reports Hx Arthritis, Reports Hx Fibromyalgia, Reports Hx Gout, Reports Hx Muscle Weakness Skin Medical History: Denies Hx Eczema, Denies Hx Psoriasis Psychiatric Medical History: Reports: Hx Anxiety, Hx Depression Traumatic Medical History: Reports: None Infectious Medical History: Reports: Hx MRSA. Denies: Hx Hepatitis Hematology: Reports: Anemia - Surgical History Past Surgical History: Reports: Hx Appendectomy, Hx Cholecystectomy, Hx Hysterectomy Review of systems ROS unobtainable: other - patient sleeping Ojective:Exam Vital Signs: Temp Pulse Resp BP Pulse Ox 98.6 F 75 14 135/61 H 97 07/16/17 20:00 07/16/17 20:00 07/16/17 22:27 07/16/17 22:27 07/16/17 22:27 Intake & Output 07/15/17 07/16/17 07/17/17 06:59 06:59 06:59 Intake Total 2972 414 Output Total 1125 2080 Balance 1847 -1666 Weight 103 kg - General General Appearance: Sleeping/easily aroused In distress: Mild - Respiratory Respiratory Status: Other - Bipap at 30% oxygen Breath sounds: Rhonchi - Cardiovascular Rhythm: Regular - Skin Skin Temperature: Warm Skin Moisture: Dry Skin Color: [place], Pale Objective-Diagnostic Laboratory: 07/16/17 04:35 07/16/17 04:35 07/16/17 07/16/17 04:35 04:35 WBC 23.2 H RBC 4.04 Hgb 11.5 L Hct 35.6 L MCV 88 MCH 28.5 MCHC 32.4 RDW 15.1 H Plt Count 117 L Seg Neutrophils % Not Reportable Lymphocytes % Not Reportable Monocytes % Not Reportable Eosinophils % Not Reportable Basophils % Not Reportable Absolute Neutrophils Not Reportable Absolute Lymphocytes Not Reportable Absolute Monocytes Not Reportable Absolute Eosinophils Not Reportable Absolute Basophils Not Reportable Sodium 143.0 Potassium 4.4 Chloride 106 Carbon Dioxide 28 Anion Gap 9 BUN 27 H Creatinine 1.00 Est GFR ( Amer) > 60 Est GFR (Non-Af Amer) 54 L Glucose 236 H Calcium 8.7 Phosphorus 3.6 Magnesium 2.0 07/16/17 11:35 NT-Pro-B Natriuret Pep 710 Plan and Recommendation Plan and Recommendation: Chart reviewed, and consultation with nurse shows no immediate palliative care needs. Patient asleep and left uninterrupted. Will visit again and discuss her advance directives and wishes for future care. Appreciate consult request, will follow. - Time Spent with Patient Time spent with patient: 15 to 30 Minutes Time: 20 min
[2017-07-16] MEDS: FUROSEMIDE INJ/PF 20 MG/2 ML SDV IV SCH (23:34)
[2017-07-17] MEDS: ALBUTEROL SULFATE 0.083% NEB 2.5 MG/3 ML AMPUL NEB PRN (01:55)
[2017-07-17] MEDS: ACETYLCYSTEINE 10% NEB 400 MG/4 ML VIAL NEB SCH ×4 (01:57→20:25)
[2017-07-17] MEDS: HEPARIN SOD (PORCINE) 5,000 UNIT/ML 1 ML SYRINGE SUBCUT SCH ×3 (06:01→22:34)
[2017-07-17] MEDS: DILTIAZEM HCL 60 MG TABLET PO SCH ×3 (06:02→17:54)
[2017-07-17] MEDS: INSULIN LISPRO 100 UNIT/ML 3 ML VIAL SUBCUT PRN ×4 (06:02→22:28)
[2017-07-17] MEDS: NYSTATIN 500000 UNIT/5 ML UDCUP PO SCH ×4 (06:03→23:37)
[2017-07-17] MEDS: METHYLPREDNISOLONE INJ 40 MG/1 ML SDV IV SCH ×3 (06:03→22:29)
[2017-07-17] MEDS: BUTALB/ACETAMINOPHEN/CAFFEINE 1 TAB EACH PO PRN (06:03)
[2017-07-17] MEDS: HYDRALAZINE HCL 25 MG TABLET PO SCH ×3 (06:03→22:32)
[2017-07-17] MEDS: VANCOMYCIN HCL 1,500 MG in DEXTROSE 5%-WATER 250 ML IV SCH (06:04)
[2017-07-17 06:53] LABS: HEMATOCRIT 35.5 % (36.0-47.0); HEMOGLOBIN 11.5 g/dL (12.0-15.5); MEAN CORPUSCULAR HEMOGLOBIN 28.1 pg (27.0-33.4); MEAN CORPUSCULAR HGB CONC 32.3 g/dL (32.0-36.0); MEAN CORPUSCULAR VOLUME 87 fl (80-97); PLATELET COUNT 123 10^3/uL (150-450); RED BLOOD COUNT 4.07 10^6/uL (3.72-5.28)
[2017-07-17 07:12] LABS: ALANINE AMINOTRANSFERASE 42 U/L (9-52); ALBUMIN 3.1 g/dL (3.5-5.0); ALKALINE PHOSPHATASE 100 U/L (38-126); ANION GAP 7 (5-19); ASPARTATE AMINO TRANSFERASE 15 U/L (14-36); BILIRUBIN,DIRECT 0.2 mg/dL (0.0-0.4); BILIRUBIN,TOTAL 0.2 mg/dL (0.2-1.3); BLOOD UREA NITROGEN 28 mg/dL (7-20); CALCIUM 9.3 mg/dL (8.4-10.2); CARBON DIOXIDE 30 mmol/L (22-30); CHLORIDE 103 mmol/L (98-107); GLUCOSE 250 mg/dL (75-110); POTASSIUM 4.3 mmol/L (3.6-5.0); SODIUM 140.1 mmol/L (137-145); TOTAL PROTEIN 5.5 g/dL (6.3-8.2)
[2017-07-17 07:18] LABS: ABSOLUTE LYMPHOCYTES# (MANUAL) 0.8 10^3/uL (0.5-4.7); ABSOLUTE MONOCYTES # (MANUAL) 0.6 10^3/uL (0.1-1.4); ABSOLUTE NEUTROPHILS# (MANUAL) 14.6 10^3/uL (1.7-8.2); BAND NEUTROPHILS % (MANUAL) 4 % (3-5); BASOPHILS % (MANUAL) 0 % (0-2); EOSINOPHILS % (MANUAL) 0 % (0-6); LYMPHOCYTES % (MANUAL) 4 % (13-45); MONOCYTES % (MANUAL) 4 % (3-13); SEGMENTED NEUTROPHILS % (MAN) 87 % (42-78); TOTAL CELLS COUNTED 100
[2017-07-17 07:20] LABS: ANISOCYTOSIS SLIGHT; OVALOCYTES SLIGHT; PLATELET COMMENT ADEQUATE; PLATELET GIANT PRESENT; PLATELET LARGE PRESENT; POIKILOCYTOSIS SLIGHT; TEAR DROP CELLS SLIGHT; TOXIC GRANULATION 2+
[2017-07-17] MEDS: IPRATROPIUM/ALBUTEROL 0.5-2.5 MG/3 ML AMPUL NEB SCH ×3 (07:54→20:25)
--- NOTE | 2017-07-17 08:45 | PDOC PROGRESS REPORT ---
Subjective Progress Note for:: 07/17/17 Subjective:: Patient is on BiPAP support when evaluated in the intensive care unit She is using BiPAP as needed She states that she has minimal shortness of breath at this time no fever no chills She is complaining of pain in the shoulders and the back as usual "I am feeling a lot better" on the monitor she is in a sinus rhythm She is off pressors Reason For Visit: SEPTIC SHOCK Physical Exam Vital Signs: Temp Pulse Resp BP Pulse Ox 98.1 F 74 14 152/75 H 96 07/17/17 05:37 07/17/17 08:00 07/17/17 06:26 07/17/17 06:26 07/17/17 06:26 Intake & Output 07/16/17 07/17/17 07/18/17 00:59 00:59 00:59 Intake Total 3386 Output Total 725 2520 750 Balance -725 866 -750 Weight 101.1 kg 103 kg 100.1 kg General appearance: PRESENT: no acute distress, morbidly obese Head exam: PRESENT: atraumatic, normocephalic Eye exam: PRESENT: EOMI, PERRLA, other - Subconjunctival edema Neck exam: ABSENT: carotid bruit, JVD, lymphadenopathy, thyromegaly Respiratory exam: PRESENT: decreased breath sounds, symmetrical, unlabored. ABSENT: accessory muscle use, rhonchi, tachypnea, wheezes Cardiovascular exam: PRESENT: RRR. ABSENT: diastolic murmur, rubs, systolic murmur Pulses: PRESENT: normal dorsalis pedis pul GI/Abdominal exam: PRESENT: normal bowel sounds, soft. ABSENT: distended, guarding, mass, organolmegaly, rebound, tenderness Rectal exam: PRESENT: deferred Neurological exam: PRESENT: alert, awake, oriented to time, oriented to situation Psychiatric exam: PRESENT: appropriate affect Results Laboratory Results: 07/17/17 06:30 07/17/17 06:30 07/17/17 07/17/17 06:30 06:30 WBC 16.0 H RBC 4.07 Hgb 11.5 L Hct 35.5 L MCV 87 MCH 28.1 MCHC 32.3 RDW 15.0 H Plt Count 123 L Seg Neutrophils % Not Reportable Lymphocytes % Not Reportable Monocytes % Not Reportable Eosinophils % Not Reportable Basophils % Not Reportable Absolute Neutrophils Not Reportable Absolute Lymphocytes Not Reportable Absolute Monocytes Not Reportable Absolute Eosinophils Not Reportable Absolute Basophils Not Reportable Sodium 140.1 Potassium 4.3 Chloride 103 Carbon Dioxide 30 Anion Gap 7 BUN 28 H Creatinine 0.94 Est GFR ( Amer) > 60 Est GFR (Non-Af Amer) 58 L Glucose 250 H Calcium 9.3 Magnesium 2.0 Total Bilirubin 0.2 AST 15 ALT 42 Alkaline Phosphatase 100 Total Protein 5.5 L Albumin 3.1 L 07/16/17 11:35 NT-Pro-B Natriuret Pep 710 07/15/17 06:20 Urine Culture - Final Catheterized Urine Escherichia Coli Esbl Impressions: Chest X-Ray 07/15/17 09:51 IMPRESSION: SATISFACTORY PLACEMENT RIGHT IJ VENOUS CATHETER WITHOUT COMPLICATION. OTHERWISE STABLE APPEARANCE OF THE CHEST. Assessment & Plan - Diagnosis (1) Constipation Qualifiers: Constipation type: unspecified constipation type Qualified Code(s): K59.00 - Constipation, unspecified Is this a current diagnosis for this admission?: Yes (2) Functional quadriplegia Is this a current diagnosis for this admission?: Yes (3) Acute and chronic respiratory failure Qualifiers: Respiratory failure complication: hypoxia Qualified Code(s): J96.21 - Acute and chronic respiratory failure with hypoxia Is this a current diagnosis for this admission?: Yes (4) Adrenal insufficiency Is this a current diagnosis for this admission?: Yes (5) Anemia Qualifiers: Anemia type: iron deficiency Iron deficiency anemia type: other iron deficiency Qualified Code(s): D50.8 - Other iron deficiency anemias Is this a current diagnosis for this admission?: Yes (9) UTI (urinary tract infection) due to urinary indwelling Barton catheter Qualifiers: Indwelling urinary catheter type: indwelling urethral catheter Encounter type: sequela Qualified Code(s): T83.511S - Infection and inflammatory reaction due to indwelling urethral catheter, sequela (10) Sepsis Qualifiers: Sepsis type: sepsis due to unspecified organism Qualified Code(s): A41.9 - Sepsis, unspecified organism Is this a current diagnosis for this admission?: Yes - Time Time Spent with patient: Sepsis has improved at this time Patient is off pressors Sepsis secondary to E. coli ESBL Continue meropenem Acute on chronic respiratory failure secondary secondary to COPD, Obstructive sleep apnea , morbid obesity and sepsis Is improving Continue BiPAP as needed d uring the day Patient may be transferred to IMCU when a bed is available Time Spent with patient: 35 or more minutes Total Critical Time (Minutes): 40
[2017-07-17] MEDS: POLYETHYLENE GLYCOL 3350 POWDER 17 GM/1 PACKET PO SCH ×2 (09:36→17:54)
[2017-07-17] MEDS: FUROSEMIDE INJ/PF 20 MG/2 ML SDV IV SCH ×2 (09:37→22:34)
[2017-07-17] MEDS: PREGABALIN 75 MG CAPSULE PO SCH ×2 (09:38→22:31)
[2017-07-17] MEDS: FERROUS SULFATE 325 MG TABLET PO SCH ×2 (09:38→17:46)
[2017-07-17] MEDS: TAMSULOSIN HCL 0.4 MG CAP.SR.24H PO SCH (09:39)
[2017-07-17] MEDS: ASPIRIN 81 MG TABLET, CHEWABLE PO SCH (09:39)
[2017-07-17] MEDS: GUAIFENESIN 600 MG TABLET.SA PO SCH ×2 (09:39→22:30)
[2017-07-17] MEDS: RANOLAZINE 500 MG TAB.SR.12H PO SCH ×2 (09:40→22:32)
[2017-07-17] MEDS: DOCUSATE SODIUM 100 MG CAPSULE PO SCH (09:40)
[2017-07-17] MEDS: DULOXETINE HCL 30 MG CAPSULE.DR PO SCH (09:40)
[2017-07-17] MEDS: LORATADINE 10 MG TABLET PO SCH (09:41)
[2017-07-17] MEDS: MEROPENEM 1 GM in NORMAL SALINE 50 ML IV SCH ×2 (09:41→17:46)
[2017-07-17] MEDS: INSULIN DETEMIR 100 UNIT/ML 3 ML PEN SUBCUT SCH (09:42)
[2017-07-17] MEDS: ROFLUMILAST 500 MCG TABLET PO SCH (15:46)
[2017-07-17] MEDS ORDERED: DILTIAZEM HCL INJ 25 MG/5 ML VIAL ONE (16:37)
[2017-07-17] MEDS ORDERED: DILTIAZEM HCL INJ 25 MG/5 ML VIAL IV ONE ×2 (17:30→18:00)
[2017-07-17] MEDS: DILTIAZEM HCL/D5W 125 MG/125 ML RTUINJ IV PRN (17:31)
[2017-07-17] MEDS ORDERED: METOPROLOL TARTRATE PF/INJ 5 MG/5 ML SDV IV ONE (19:00)
[2017-07-17] MEDS: OXYCODONE-ACETAMINOPHEN 5-325 MG TABLET PO PRN (22:29)
[2017-07-17] MEDS: ZOLPIDEM TARTRATE 5 MG TABLET PO PRN (22:31)
[2017-07-18] MEDS: DILTIAZEM HCL 60 MG TABLET PO SCH ×2 (00:54→05:42)
[2017-07-18] MEDS: DILTIAZEM HCL/D5W 125 MG/125 ML RTUINJ IV PRN ×3 (01:13→22:13)
[2017-07-18] MEDS: MEROPENEM 1 GM in NORMAL SALINE 50 ML IV SCH ×3 (01:13→17:40)
[2017-07-18] MEDS: ACETYLCYSTEINE 10% NEB 400 MG/4 ML VIAL NEB SCH ×4 (01:55→20:10)
[2017-07-18] MEDS: ALBUTEROL SULFATE 0.083% NEB 2.5 MG/3 ML AMPUL NEB PRN (01:55)
[2017-07-18] MEDS: HYDRALAZINE HCL 25 MG TABLET PO SCH ×3 (06:02→22:11)
[2017-07-18] MEDS: NYSTATIN 500000 UNIT/5 ML UDCUP PO SCH ×4 (06:03→23:20)
[2017-07-18] MEDS: METHYLPREDNISOLONE INJ 40 MG/1 ML SDV IV SCH ×3 (06:05→22:13)
[2017-07-18] MEDS: HEPARIN SOD (PORCINE) 5,000 UNIT/ML 1 ML SYRINGE SUBCUT SCH (06:07)
[2017-07-18 06:47] LABS: VANCOMYCIN,TROUGH 12.7 ug/mL (5.0-20.0)
[2017-07-18] MEDS: IPRATROPIUM/ALBUTEROL 0.5-2.5 MG/3 ML AMPUL NEB SCH ×3 (08:42→20:10)
[2017-07-18] MEDS ORDERED: FUROSEMIDE INJ/PF 20 MG/2 ML SDV IV SCH (09:11)
--- NOTE | 2017-07-18 09:21 | PDOC PROGRESS REPORT ---
Subjective Progress Note for:: 07/18/17 Subjective:: Patient is complaining of SOB no chest pains On the monitor she is in atrial fibrillation , at times rate 140 - 150 no fever or chills Reason For Visit: SEPTIC SHOCK Physical Exam Vital Signs: Temp Pulse Resp BP Pulse Ox 98.8 F 68 16 147/80 H 93 07/17/17 19:36 07/18/17 01:55 07/18/17 06:28 07/18/17 06:28 07/18/17 06:28 Intake & Output 07/17/17 07/18/17 07/19/17 00:59 00:59 00:59 Intake Total 3386 689 88 Output Total 4750 8190 425 Balance 739 -2771 -109 Weight 103 kg 100.1 kg 99.8 kg General appearance: PRESENT: mild distress, morbidly obese Head exam: PRESENT: atraumatic, normocephalic Eye exam: PRESENT: conjunctiva pink, EOMI, PERRLA. ABSENT: scleral icterus Neck exam: ABSENT: carotid bruit, JVD, lymphadenopathy, thyromegaly Respiratory exam: PRESENT: decreased breath sounds, wheezes Cardiovascular exam: PRESENT: irregular rhythm, tachycardia Pulses: PRESENT: normal dorsalis pedis pul GI/Abdominal exam: PRESENT: normal bowel sounds, soft, other - obese. ABSENT: distended, guarding, mass, organolmegaly, rebound, tenderness Rectal exam: PRESENT: deferred Extremities exam: PRESENT: full ROM. ABSENT: calf tenderness, clubbing, pedal edema Results Laboratory Results: 07/17/17 06:30 07/18/17 05:55 07/18/17 05:55 Creatinine 0.98 Est GFR ( Amer) > 60 Est GFR (Non-Af Amer) 55 L 07/16/17 11:35 NT-Pro-B Natriuret Pep 710 Impressions: Chest X-Ray 07/15/17 09:51 IMPRESSION: SATISFACTORY PLACEMENT RIGHT IJ VENOUS CATHETER WITHOUT COMPLICATION. OTHERWISE STABLE APPEARANCE OF THE CHEST. Assessment & Plan - Diagnosis (1) Constipation Qualifiers: Constipation type: unspecified constipation type Qualified Code(s): K59.00 - Constipation, unspecified Is this a current diagnosis for this admission?: Yes (2) Functional quadriplegia Is this a current diagnosis for this admission?: Yes (3) Acute and chronic respiratory failure Qualifiers: Respiratory failure complication: hypoxia Qualified Code(s): J96.21 - Acute and chronic respiratory failure with hypoxia Is this a current diagnosis for this admission?: Yes (4) Adrenal insufficiency Is this a current diagnosis for this admission?: Yes (5) Anemia Qualifiers: Anemia type: iron deficiency Iron deficiency anemia type: other iron deficiency Qualified Code(s): D50.8 - Other iron deficiency anemias Is this a current diagnosis for this admission?: Yes (9) UTI (urinary tract infection) due to urinary indwelling Barton catheter Qualifiers: Indwelling urinary catheter type: indwelling urethral catheter Encounter type: sequela Qualified Code(s): T83.511S - Infection and inflammatory reaction due to indwelling urethral catheter, sequela (10) Sepsis Qualifiers: Sepsis type: sepsis due to unspecified organism Qualified Code(s): A41.9 - Sepsis, unspecified organism Is this a current diagnosis for this admission?: Yes (11) Paroxysmal A-fib Is this a current diagnosis for this admission?: Yes Plan: Patient has been treated with cardizem and metoprolol , currently on cardizem dtip still has bouts of tachycardia at 140-[address] Bauer who will consult will add digoxin anticoagulate with lovenox - Time Time Spent with patient: will increase lasix patient looks clinically fluid overloaded CXR portable BNP Time Spent with patient: 35 or more minutes
[2017-07-18] MEDS ORDERED: DIGOXIN INJ 0.5 MG/2 ML AMPULE IV ONE (10:00)
--- NOTE | 2017-07-18 10:20 | RADIOLOGY REPORT (SQ) ---
EXAM DESCRIPTION: CHEST SINGLE VIEW COMPLETED DATE/TIME: 07/18/2017 9:58 am REASON FOR STUDY: SOB COMPARISON: 07/15/2017 EXAM PARAMETERS: NUMBER OF VIEWS: One view. TECHNIQUE: Single frontal radiographic view of the chest acquired. RADIATION DOSE: NA LIMITATIONS: None. FINDINGS: LUNGS AND PLEURA: No opacities, masses or pneumothorax. No pleural effusion. There are so me minimal linear densities in the mid lung mead which could represent subsegmental atelectasis or scarring. Which could represent subsegmental atelectasis or scarring. MEDIASTINUM AND HILAR STRUCTURES: No masses. Contour normal. HEART AND VASCULAR STRUCTURES: The configuration of the heart and mediastinal structures is unchanged . Cardiac silhouette appears enlarged. BONES: No acute findings. HARDWARE: Central line is unchanged in position. OTHER: No other significant finding. IMPRESSION: No significant interval change. No acute findings. Other findings as noted above TECHNICAL DOCUMENTATION: JOB ID: [id number] [employer]- All Rights Reserved
[2017-07-18] MEDS: LORATADINE 10 MG TABLET PO SCH (10:52)
[2017-07-18] MEDS: GUAIFENESIN 600 MG TABLET.SA PO SCH ×2 (10:52→22:11)
[2017-07-18] MEDS: DULOXETINE HCL 30 MG CAPSULE.DR PO SCH (10:53)
[2017-07-18] MEDS: ASPIRIN 81 MG TABLET, CHEWABLE PO SCH (10:53)
[2017-07-18] MEDS: OXYCODONE-ACETAMINOPHEN 5-325 MG TABLET PO PRN ×2 (10:53→23:21)
[2017-07-18] MEDS: DOCUSATE SODIUM 100 MG CAPSULE PO SCH (10:53)
[2017-07-18] MEDS: FUROSEMIDE INJ/PF 40 MG/4 ML SDV IV SCH ×2 (10:53→22:13)
[2017-07-18] MEDS: FERROUS SULFATE 325 MG TABLET PO SCH ×2 (10:53→17:23)
[2017-07-18] MEDS: RANOLAZINE 500 MG TAB.SR.12H PO SCH ×2 (10:53→22:12)
[2017-07-18] MEDS: TAMSULOSIN HCL 0.4 MG CAP.SR.24H PO SCH (10:53)
[2017-07-18] MEDS: PREGABALIN 75 MG CAPSULE PO SCH ×2 (10:53→22:10)
[2017-07-18] MEDS: INSULIN DETEMIR 100 UNIT/ML 3 ML PEN SUBCUT SCH (10:54)
[2017-07-18] MEDS: POLYETHYLENE GLYCOL 3350 POWDER 17 GM/1 PACKET PO SCH ×2 (10:54→17:23)
[2017-07-18] MEDS: ENOXAPARIN SODIUM INJ 100 MG/1 ML DISP.SYRIN SUBCUT SCH ×2 (10:54→22:12)
[2017-07-18] MEDS: INSULIN LISPRO 100 UNIT/ML 3 ML VIAL SUBCUT PRN ×3 (13:18→23:20)
[2017-07-18] MEDS: ROFLUMILAST 500 MCG TABLET PO SCH (13:54)
[2017-07-18] MEDS ORDERED: ONDANSETRON HCL INJ/PF 4 MG/2 ML SDV IV PRN (16:00)
--- NOTE | 2017-07-18 17:02 | EKG REPORT ---
SEVERITY:- ABNORMAL ECG - SINUS RHYTHM WITH MULTIFOCAL ATRIAL ECTOPICS LEFT ANTERIOR FASCICULAR BLOCK : Confirmed by: Jung Olvera 18-Jul-2017 17:01:19
[2017-07-18] MEDS: BUTALB/ACETAMINOPHEN/CAFFEINE 1 TAB EACH PO PRN (17:18)
[2017-07-18] MEDS: BACLOFEN 10 MG TABLET PO PRN (17:19)
[2017-07-18] MEDS: ZOLPIDEM TARTRATE 5 MG TABLET PO PRN (23:21)
--- NOTE | 2017-07-18 23:24 | CONSULTATION REPORT E ---
Consultation Report NAME: PORSHA WALDRON : 1945 AGE: 72Y DATE: 07/18/2017 ROOM: 334 A TO: SHANIKA BOWEN M.D. FROM: CHRISTY HANLEY M.D. Requesting Physician REASON FOR CONSULTATION: Patient with tachycardia, paroxysmal, with a diagnosis of atrial fibrillation and hence cardiology consulted. The patient is a 72-year-old female who was transferred from *------* since the patient is having fever and cough. The patient has a history of *------* COPD and the patient was found to be hypotensive in the emergency room, and the patient was placed on Levophed. The patient has been having runs of rapid tachycardia which on further of the rhythm strip showed that this is multifocal atrial tachycardia, not atrial fibrillation. The patient is on her Cardizem. She did receive 1 dose of digoxin 0.25. The patient does complain of shortness of breath with wheezing and orthopnea. There is no PND. There is leg edema which has come down since admission. The patient denies any chest pain or discomfort. She does have palpitations. She states that she has been having palpitations for the last few months and has been diagnosis as having the atrial fibrillation, but with the current review of the monitor strips, it seems to be that the patient has multifocal atrial tachycardia with the baseline EKG showing sinus arrhythmia with frequent APCs. INCOMPLETE DICTATION DICTATING PHYSICIAN: SHANIKA BOWEN M.D. [id number] PHY#: [id number] ID: [id number] JOB#: [id number] ACCT: [id number] cc:SHANIKA BOWEN M.D. >
[2017-07-19] MEDS: DIPHENHYDRAMINE HCL 25 MG CAPSULE PO PRN ×2 (01:30→23:09)
[2017-07-19] MEDS: MEROPENEM 1 GM in NORMAL SALINE 50 ML IV SCH ×3 (01:31→17:37)
[2017-07-19] MEDS: ALBUTEROL SULFATE 0.083% NEB 2.5 MG/3 ML AMPUL NEB PRN (02:04)
[2017-07-19] MEDS: ACETYLCYSTEINE 10% NEB 400 MG/4 ML VIAL NEB SCH ×4 (02:04→20:34)
[2017-07-19] MEDS: HYDRALAZINE HCL 25 MG TABLET PO SCH ×3 (05:13→23:03)
[2017-07-19] MEDS: NYSTATIN 500000 UNIT/5 ML UDCUP PO SCH ×4 (05:13→23:28)
[2017-07-19] MEDS: METHYLPREDNISOLONE INJ 40 MG/1 ML SDV IV SCH ×3 (05:13→23:08)
[2017-07-19 06:30] LABS: HEMATOCRIT 35.8 % (36.0-47.0); HEMOGLOBIN 12.1 g/dL (12.0-15.5); MEAN CORPUSCULAR HGB CONC 33.7 g/dL (32.0-36.0); MEAN CORPUSCULAR VOLUME 86 fl (80-97); PLATELET COUNT 131 10^3/uL (150-450); RED BLOOD COUNT 4.17 10^6/uL (3.72-5.28); RED CELL DISTRIBUTION WIDTH 14.8 % (11.5-14.0); WHITE BLOOD COUNT 6.8 10^3/uL (4.0-10.5)
[2017-07-19 06:33] LABS: APPEARANCE,URINE CLEAR; BILIRUBIN,URINE NEGATIVE (NEGATIVE); COLOR,URINE YELLOW; GLUCOSE, URINE >=500 mg/dL (NEGATIVE); KETONES,URINE NEGATIVE (NEGATIVE); LEUKOCYTE ESTERASE,URINE NEGATIVE (NEGATIVE); NITRITE,URINE NEGATIVE (NEGATIVE); PROTEIN,URINE NEGATIVE (NEGATIVE); URINE SPECIFIC GRAVITY 1.013; UROBILINOGEN,URINE NEGATIVE mg/dL (<2.0)
[2017-07-19] MEDS: DILTIAZEM HCL/D5W 125 MG/125 ML RTUINJ IV PRN ×2 (06:47→14:48)
[2017-07-19] MEDS: IPRATROPIUM/ALBUTEROL 0.5-2.5 MG/3 ML AMPUL NEB SCH ×3 (07:43→20:33)
[2017-07-19] MEDS: FUROSEMIDE INJ/PF 40 MG/4 ML SDV IV SCH ×2 (09:15→23:28)
[2017-07-19] MEDS: INSULIN LISPRO 100 UNIT/ML 3 ML VIAL SUBCUT PRN ×4 (09:15→23:08)
[2017-07-19] MEDS: ENOXAPARIN SODIUM INJ 100 MG/1 ML DISP.SYRIN SUBCUT SCH (09:15)
[2017-07-19] MEDS: INSULIN DETEMIR 100 UNIT/ML 3 ML PEN SUBCUT SCH (09:15)
[2017-07-19] MEDS: FENTANYL 25 MCG/HR PATCH.TD72 TD SCH (09:18)
[2017-07-19] MEDS: RANOLAZINE 500 MG TAB.SR.12H PO SCH ×2 (09:20→23:02)
[2017-07-19] MEDS: POLYETHYLENE GLYCOL 3350 POWDER 17 GM/1 PACKET PO SCH ×2 (09:20→17:37)
[2017-07-19] MEDS: METOPROLOL SUCCINATE 50 MG TAB.SR.24H PO SCH (09:21)
[2017-07-19] MEDS: GUAIFENESIN 600 MG TABLET.SA PO SCH ×2 (09:21→23:02)
[2017-07-19] MEDS: FERROUS SULFATE 325 MG TABLET PO SCH ×2 (09:21→17:37)
[2017-07-19] MEDS: DOCUSATE SODIUM 100 MG CAPSULE PO SCH (09:21)
[2017-07-19] MEDS: ASPIRIN 81 MG TABLET, CHEWABLE PO SCH (09:21)
[2017-07-19] MEDS: DULOXETINE HCL 30 MG CAPSULE.DR PO SCH (09:22)
[2017-07-19] MEDS: LORATADINE 10 MG TABLET PO SCH (09:22)
[2017-07-19] MEDS: TAMSULOSIN HCL 0.4 MG CAP.SR.24H PO SCH (09:22)
[2017-07-19] MEDS: PREGABALIN 75 MG CAPSULE PO SCH ×2 (09:23→23:05)
[2017-07-19] MEDS: BUTALB/ACETAMINOPHEN/CAFFEINE 1 TAB EACH PO PRN (10:47)
[2017-07-19] MEDS: BACLOFEN 10 MG TABLET PO PRN (10:48)
[2017-07-19] MEDS: OXYCODONE-ACETAMINOPHEN 5-325 MG TABLET PO PRN (14:37)
[2017-07-19] MEDS: ROFLUMILAST 500 MCG TABLET PO SCH (14:37)
--- NOTE | 2017-07-19 17:53 | PDOC PROGRESS REPORT ---
Subjective Progress Note for:: 07/19/17 Subjective:: Patient's shortness of breath is improved She has no chest pains On the monitor she is still in MAT at times but rate is better controlled Rhythm was reevaluated by Dr. Bauer who felt that it was not consistent with atrial fibrillation Patient is complaining of anxiety and pain in the left shoulder She is quite depressed but extremely stable Reason For Visit: SEPTIC SHOCK Physical Exam Vital Signs: Temp Pulse Resp BP Pulse Ox 98.8 F 58 L 18 163/61 H 97 07/19/17 16:25 07/19/17 16:25 07/19/17 16:25 07/19/17 16:02 07/19/17 16:25 Intake & Output 07/18/17 07/19/17 07/20/17 00:59 00:59 00:59 Intake Total 689 488 50 Output Total 6423 3275 1999 [facility] -2421 -2787 -1950 Weight 100.1 kg 99.8 kg 103.1 kg General appearance: PRESENT: no acute distress, morbidly obese Head exam: PRESENT: atraumatic, normocephalic Eye exam: PRESENT: conjunctiva pink, EOMI, PERRLA. ABSENT: scleral icterus Ear exam: PRESENT: normal external ear exam Mouth exam: PRESENT: moist, tongue midline Neck exam: ABSENT: carotid bruit, JVD, lymphadenopathy, thyromegaly Respiratory exam: PRESENT: decreased breath sounds, wheezes. ABSENT: rales, rhonchi Cardiovascular exam: PRESENT: irregular rhythm, tachycardia. ABSENT: diastolic murmur, rubs, systolic murmur Pulses: PRESENT: normal dorsalis pedis pul Vascular exam: PRESENT: normal capillary refill GI/Abdominal exam: PRESENT: normal bowel sounds, soft. ABSENT: distended, guarding, mass, organolmegaly, rebound, tenderness Rectal exam: PRESENT: deferred Extremities exam: PRESENT: full ROM. ABSENT: calf tenderness, clubbing, pedal edema Neurological exam: PRESENT: alert, awake, oriented to person, oriented to place , oriented to time, oriented to situation, CN II-XII grossly intact. ABSENT: motor sensory deficit Psychiatric exam: PRESENT: appropriate affect, normal mood. ABSENT: homicidal ideation, suicidal ideation Skin exam: PRESENT: dry, intact, warm. ABSENT: cyanosis, rash Results Laboratory Results: 07/19/17 06:05 07/18/17 05:55 07/19/17 07/19/17 06:05 06:05 WBC 6.8 RBC 4.17 Hgb 12.1 Hct 35.8 L MCV 86 MCH 29.0 MCHC 33.7 RDW 14.8 H Plt Count 131 L Urine Color YELLOW Urine Appearance CLEAR Urine pH 6.0 Ur Specific [place] 1.013 Urine Protein NEGATIVE Urine Glucose (UA) >=500 H Urine Ketones NEGATIVE Urine Blood NEGATIVE Urine Nitrite NEGATIVE Ur Leukocyte Esterase NEGATIVE Urine WBC (Auto) 1 Urine RBC (Auto) 2 07/16/17 07/18/17 07/18/17 11:35 13:20 18:55 Troponin I 0.016 0.027 NT-Pro-B Natriuret Pep 710 07/18/17 23:00 Troponin I 0.026 NT-Pro-B Natriuret Pep Impressions: Chest X-Ray 07/18/17 09:29 IMPRESSION: No significant interval change. No acute findings. Other findings as noted above Assessment & Plan - Diagnosis (1) Constipation Qualifiers: Constipation type: unspecified constipation type Qualified Code(s): K59.00 - Constipation, unspecified Is this a current diagnosis for this admission?: Yes (2) Functional quadriplegia Is this a current diagnosis for this admission?: Yes (3) Acute and chronic respiratory failure Qualifiers: Respiratory failure complication: hypoxia Qualified Code(s): J96.21 - Acute and chronic respiratory failure with hypoxia Is this a current diagnosis for this admission?: Yes (4) Adrenal insufficiency Is this a current diagnosis for this admission?: Yes (5) Anemia Qualifiers: Anemia type: iron deficiency Iron deficiency anemia type: other iron deficiency Qualified Code(s): D50.8 - Other iron deficiency anemias Is this a current diagnosis for this admission?: Yes (9) UTI (urinary tract infection) due to urinary indwelling Barton catheter Qualifiers: Indwelling urinary catheter type: indwelling urethral catheter Encounter type: sequela Qualified Code(s): T83.511S - Infection and inflammatory reaction due to indwelling urethral catheter, sequela (10) Sepsis Qualifiers: Sepsis type: sepsis due to unspecified organism Qualified Code(s): A41.9 - Sepsis, unspecified organism Is this a current diagnosis for this admission?: Yes (11) Multifocal atrial tachycardia Is this a current diagnosis for this admission?: Yes Plan: Management as per Dr. Graham ; we will discontinue anticoagulation - Time Time Spent with patient: Patient wishes to go back to [place] at discharge Discharge anticipated for Saturday Time Spent with patient: 25-34 minutes
[2017-07-19] MEDS ORDERED: ENOXAPARIN SODIUM INJ 100 MG/1 ML DISP.SYRIN SUBCUT SCH (17:55)
[2017-07-19] MEDS: BUDESONIDE NEB 0.5 MG/2 ML AMPUL NEB SCH (20:34)
[2017-07-19] MEDS ORDERED: DILTIAZEM HCL 120 MG CAP.SR.24H PO SCH (22:00)
[2017-07-19] MEDS: ZOLPIDEM TARTRATE 5 MG TABLET PO PRN (23:04)
[2017-07-19] MEDS: ENOXAPARIN SODIUM INJ 40 MG/0.4 ML DISP.SYRIN SUBCUT SCH (23:07)
[2017-07-19] MEDS: BUSPIRONE HCL 10 MG TABLET PO SCH (23:09)
--- NOTE | 2017-07-19 23:39 | Progress Note ---
Provider Note Provider Note: Palliative Care follow up visit 07/19/17 11:20-11:35 AM Follow up visit with this 72 year old woman who has been transferred out of ICU to regular floor. She is not having tachycardia now but was having increased hert rate yesterday now controlled with diltiazem. She reports feeling better but is anxious about returning to [facility] room [facility] where [facility]. She says she still feels very weak and tired. She is continuing to receive IV antibiotics and reports being able to breath better. Appetite good and sleeping well. Mrs. Fernandez would like to go to the rehab center, LT in [place] after discharge. SHe is hoping to get stronger and be able to do more for herself. She seems depressed but did not say that she is, but much quieter and reserved. No respiratory distress noted, less edema and continues her chronic pain . She states pain meds ordered help her, she continues her fentanyl transdermal patches. Will follow with patient next week for emotional support. Symptoms well managed at present.
[2017-07-20] MEDS: MEROPENEM 1 GM in NORMAL SALINE 50 ML IV SCH ×3 (01:54→17:24)
[2017-07-20] MEDS: ALBUTEROL SULFATE 0.083% NEB 2.5 MG/3 ML AMPUL NEB PRN (02:07)
[2017-07-20] MEDS: ACETYLCYSTEINE 10% NEB 400 MG/4 ML VIAL NEB SCH ×4 (02:07→19:32)
[2017-07-20] MEDS: NYSTATIN 500000 UNIT/5 ML UDCUP PO SCH ×4 (06:09→23:10)
[2017-07-20] MEDS: HYDRALAZINE HCL 25 MG TABLET PO SCH ×3 (06:09→22:09)
[2017-07-20 06:47] LABS: HEMATOCRIT 38.4 % (36.0-47.0); HEMOGLOBIN 12.8 g/dL (12.0-15.5); MEAN CORPUSCULAR HEMOGLOBIN 28.6 pg (27.0-33.4); MEAN CORPUSCULAR HGB CONC 33.4 g/dL (32.0-36.0); MEAN CORPUSCULAR VOLUME 86 fl (80-97); PLATELET COUNT 149 10^3/uL (150-450); RED BLOOD COUNT 4.48 10^6/uL (3.72-5.28); RED CELL DISTRIBUTION WIDTH 14.6 % (11.5-14.0); WHITE BLOOD COUNT 7.3 10^3/uL (4.0-10.5)
[2017-07-20 07:15] LABS: ABSOLUTE LYMPHOCYTES# (MANUAL) 0.4 10^3/uL (0.5-4.7); ABSOLUTE MONOCYTES # (MANUAL) 0.4 10^3/uL (0.1-1.4); ABSOLUTE NEUTROPHILS# (MANUAL) 6.5 10^3/uL (1.7-8.2); BAND NEUTROPHILS % (MANUAL) 2 % (3-5); BASOPHILS % (MANUAL) 0 % (0-2); EOSINOPHILS % (MANUAL) 0 % (0-6); LYMPHOCYTES % (MANUAL) 4 % (13-45); METAMYELOCYTES % (MANUAL) 1 % (0); MONOCYTES % (MANUAL) 5 % (3-13); SEGMENTED NEUTROPHILS % (MAN) 86 % (42-78); TOTAL CELLS COUNTED 100
[2017-07-20 07:16] LABS: ANISOCYTOSIS SLIGHT; PLATELET COMMENT DECREASED; TOXIC GRANULATION SLIGHT
[2017-07-20 07:21] LABS: ANION GAP 6 (5-19); BLOOD UREA NITROGEN 41 mg/dL (7-20); CARBON DIOXIDE 38 mmol/L (22-30); CHLORIDE 95 mmol/L (98-107); GLUCOSE 288 mg/dL (75-110); POTASSIUM 3.7 mmol/L (3.6-5.0); SODIUM 138.6 mmol/L (137-145)
[2017-07-20] MEDS: INSULIN LISPRO 100 UNIT/ML 3 ML VIAL SUBCUT PRN ×4 (08:07→22:43)
[2017-07-20] MEDS: BUDESONIDE NEB 0.5 MG/2 ML AMPUL NEB SCH ×2 (08:16→19:32)
[2017-07-20] MEDS: IPRATROPIUM/ALBUTEROL 0.5-2.5 MG/3 ML AMPUL NEB SCH ×3 (08:16→19:32)
[2017-07-20] MEDS ORDERED: DILTIAZEM HCL INJ 25 MG/5 ML VIAL IV ONE (10:00)
[2017-07-20] MEDS: PREGABALIN 75 MG CAPSULE PO SCH ×2 (10:00→22:08)
[2017-07-20] MEDS: DULOXETINE HCL 30 MG CAPSULE.DR PO SCH (10:01)
[2017-07-20] MEDS: BUTALB/ACETAMINOPHEN/CAFFEINE 1 TAB EACH PO PRN ×2 (10:01→20:37)
[2017-07-20] MEDS: BACLOFEN 10 MG TABLET PO PRN ×2 (10:01→20:37)
[2017-07-20] MEDS: INSULIN DETEMIR 100 UNIT/ML 3 ML PEN SUBCUT SCH (10:02)
[2017-07-20] MEDS: LORATADINE 10 MG TABLET PO SCH (10:02)
[2017-07-20] MEDS: FERROUS SULFATE 325 MG TABLET PO SCH ×2 (10:02→17:22)
[2017-07-20] MEDS: DOCUSATE SODIUM 100 MG CAPSULE PO SCH (10:02)
[2017-07-20] MEDS: RANOLAZINE 500 MG TAB.SR.12H PO SCH ×2 (10:02→22:09)
[2017-07-20] MEDS: GUAIFENESIN 600 MG TABLET.SA PO SCH ×2 (10:02→22:09)
[2017-07-20] MEDS: ASPIRIN 81 MG TABLET, CHEWABLE PO SCH (10:02)
[2017-07-20] MEDS: METOPROLOL SUCCINATE 50 MG TAB.SR.24H PO SCH (10:03)
[2017-07-20] MEDS: BUSPIRONE HCL 10 MG TABLET PO SCH ×2 (10:03→22:09)
[2017-07-20] MEDS: TAMSULOSIN HCL 0.4 MG CAP.SR.24H PO SCH (10:03)
[2017-07-20] MEDS: METHYLPREDNISOLONE INJ 40 MG/1 ML SDV IV SCH (10:04)
[2017-07-20] MEDS: DILTIAZEM HCL/D5W 125 MG/125 ML RTUINJ IV PRN ×2 (10:04→20:32)
[2017-07-20] MEDS: FUROSEMIDE INJ/PF 40 MG/4 ML SDV IV SCH ×2 (10:04→22:09)
[2017-07-20] MEDS: LIDOCAINE 5% (700 MG) TRANSDERMAL ADH..PATCH TP SCH (10:05)
[2017-07-20] MEDS: POLYETHYLENE GLYCOL 3350 POWDER 17 GM/1 PACKET PO SCH ×2 (10:05→17:25)
[2017-07-20] MEDS: ENOXAPARIN SODIUM INJ 40 MG/0.4 ML DISP.SYRIN SUBCUT SCH ×2 (11:51→22:10)
[2017-07-20] MEDS ORDERED: MAGNESIUM HYDROXIDE SUSP 30 ML UDCUP PO PRN (12:30)
[2017-07-20] MEDS ORDERED: LACTULOSE SYRUP 20 GM/30 ML UDCUP PO ONE (13:00)
[2017-07-20] MEDS: ROFLUMILAST 500 MCG TABLET PO SCH (13:34)
--- NOTE | 2017-07-20 15:43 | PDOC PROGRESS REPORT ---
Subjective Progress Note for:: 07/20/17 Subjective:: Patient's shortness of breath is improved She has no chest pains On the monitor she is still in MAT at times but rate is better controlled Rhythm was reevaluated by Dr. Bauer who felt that it was not consistent with atrial fibrillation Patient is complaining of anxiety and pain in the left shoulder She is quite depressed but extremely stable 07/20 Patient is still intermittently in atrial fibrillation or MAT Patient is still on a Cardizem drip She initially had been started on Lovenox anticoagulation at 1 mg/kg every 12; We did decrease it to Lovenox prophylaxis as per 's recommendation In general patient is feeling great Reason For Visit: SEPTIC SHOCK Physical Exam Vital Signs: Temp Pulse Resp BP Pulse Ox 97.9 F 101 H 16 159/103 H 97 07/20/17 07:38 07/20/17 08:16 07/20/17 08:16 07/20/17 07:38 07/20/17 08:16 Intake & Output 07/19/17 07/20/17 07/21/17 00:59 00:59 00:59 Intake Total 488 2669 1265 Output Total 3275 7400 1450 Balance -2787 -4731 -185 Weight 99.8 kg 103.1 kg 102 kg General appearance: PRESENT: no acute distress, morbidly obese Head exam: PRESENT: atraumatic, normocephalic Eye exam: PRESENT: conjunctiva pink, EOMI, PERRLA. ABSENT: scleral icterus Neck exam: ABSENT: carotid bruit, JVD, lymphadenopathy, thyromegaly Respiratory exam: PRESENT: clear to auscultation elia. ABSENT: rales, rhonchi, wheezes Cardiovascular exam: PRESENT: irregular rhythm. ABSENT: rubs, systolic murmur Pulses: PRESENT: normal dorsalis pedis pul GI/Abdominal exam: PRESENT: normal bowel sounds, soft. ABSENT: distended, guarding, mass, organolmegaly, rebound, tenderness Extremities exam: PRESENT: calf tenderness Neurological exam: PRESENT: alert, awake, oriented to person, oriented to place , oriented to time, oriented to situation, CN II-XII grossly intact. ABSENT: motor sensory deficit Results Laboratory Results: 07/20/17 06:00 07/20/17 06:00 07/20/17 07/20/17 06:00 06:00 WBC 7.3 RBC 4.48 Hgb 12.8 Hct 38.4 MCV 86 MCH 28.6 MCHC 33.4 RDW 14.6 H Plt Count 149 L Seg Neutrophils % Not Reportable Lymphocytes % Not Reportable Monocytes % Not Reportable Eosinophils % Not Reportable Basophils % Not Reportable Absolute Neutrophils Not Reportable Absolute Lymphocytes Not Reportable Absolute Monocytes Not Reportable Absolute Eosinophils Not Reportable Absolute Basophils Not Reportable Sodium 138.6 Potassium 3.7 Chloride 95 L Carbon Dioxide 38 H Anion Gap 6 BUN 41 H Creatinine 1.00 Est GFR ( Amer) > 60 Est GFR (Non-Af Amer) 54 L Glucose 288 H Calcium 9.0 07/16/17 07/18/17 07/18/17 11:35 13:20 18:55 Troponin I 0.016 0.027 NT-Pro-B Natriuret Pep 710 07/18/17 23:00 Troponin I 0.026 NT-Pro-B Natriuret Pep Impressions: Chest X-Ray 07/18/17 09:29 IMPRESSION: No significant interval change. No acute findings. Other findings as noted above Assessment & Plan - Diagnosis (1) Constipation Qualifiers: Constipation type: unspecified constipation type Qualified Code(s): K59.00 - Constipation, unspecified Is this a current diagnosis for this admission?: Yes (2) Functional quadriplegia Is this a current diagnosis for this admission?: Yes (3) Acute and chronic respiratory failure Qualifiers: Respiratory failure complication: hypoxia Qualified Code(s): J96.21 - Acute and chronic respiratory failure with hypoxia Is this a current diagnosis for this admission?: Yes (4) Adrenal insufficiency Is this a current diagnosis for this admission?: Yes (5) Anemia Qualifiers: Anemia type: iron deficiency Iron deficiency anemia type: other iron deficiency Qualified Code(s): D50.8 - Other iron deficiency anemias Is this a current diagnosis for this admission?: Yes (9) UTI (urinary tract infection) due to urinary indwelling Barton catheter Qualifiers: Indwelling urinary catheter type: indwelling urethral catheter Encounter type: sequela Qualified Code(s): T83.511S - Infection and inflammatory reaction due to indwelling urethral catheter, sequela Plan: Patient has UTI with E. coli ESBL She will complete meropenem IV on 07/25 (10) Sepsis Qualifiers: Sepsis type: sepsis due to unspecified organism Qualified Code(s): A41.9 - Sepsis, unspecified organism Is this a current diagnosis for this admission?: Yes Plan: Secondary to E. coli ESBL urinary tract infection Has resolved (11) Multifocal atrial tachycardia Is this a current diagnosis for this admission?: Yes Plan: We will increase Cardizem p.o. ; wean off Cardene drip If rhythm is consistent with atrial fibrillation chronic anticoagulation should be revisited and discussed with Dr. Bauer - Time Time Spent with patient: 25-34 minutes
[2017-07-20] MEDS ORDERED: DILTIAZEM HCL 120 MG CAP.SR.24H PO SCH (16:00)
[2017-07-20] MEDS: OXYCODONE-ACETAMINOPHEN 5-325 MG TABLET PO PRN (17:22)
[2017-07-20] MEDS: DILTIAZEM HCL 180 MG CAPSULE.CR PO SCH (17:23)
--- NOTE | 2017-07-20 19:34 | PROGRESS NOTE E ---
Progress Note NAME: PORSHA WALDRON : 1945 AGE: 72Y DATE: 07/20/2017 ROOM: 334 SUBJECTIVE: Note that the patient's shortness of breath has improved, but still does have some wheezing. She still has a cough productive of white sputum. She has orthopnea, but no PND. There is trace leg edema. The patient intermittently goes into MAT for short bursts. She is on a Cardizem drip at 10 mg, which has been increased to 15 mg/hr. She denies any chest pain or discomfort. There are no TIA or CVA symptoms. OBJECTIVE: On examination, the patient is morbidly obese. At present, the patient's heart rate is 104 beats per minute, sinus tachycardia. Blood pressure is 150/68, respirations 22 per minute. O2 sats are 95% on 1 liter nasal cannula. Head is atraumatic, normocephalic. Eyes: Pupils are equal, round, regular, reactive to light and accommodation. Extraocular movements are normal. There is no conjunctival pallor. There is no scleral icterus. ENT is negative. Neck is supple. There is no JVD. Carotids are equal. There is no bruit. There is no lymphadenopathy. There is no goiter. Trachea is central. Lungs show diminished air entry. Prolonged expirations throughout. There are scattered rhonchi and bilateral wheezing present. There is hyperresonance on percussion. S1, S2 heard. There is no S3 gallop. There is no S4 gallop. There is a systolic murmur at the left sternal border, at the apex. There is no rub. Abdomen is obese, but nontender. There is no hepatosplenomegaly. Bowel sounds are well-heard. There are no tender areas or masses. Extremities: Femorals are diminished. There are no femoral bruits. Leg pulses are diminished. There is trace pedal edema. There is no DVT or cellulitis. There is no cyanosis or clubbing. There is no calf tenderness. TELETYPE INSTALLER: The patient is conscious, awake, alert, oriented x3, with no focal deficits. Psychiatric: Patient's judgment and insight are intact. Her affect is normal. The patient's white count is 7300, hemoglobin is 12.8, hematocrit is 38.4, platelet count is 149,000. The patient's sodium is 138.6, potassium 3.7, chloride 95, CO2 is 38. The patient's BUN is 41, creatinine is 1.00. The patient's GFR is reduced to 54 mL. Glucose is 288. The patient's calcium is 9.0. Note that the patient is not able to ambulate because of functional weakness, generalized weakness. ASSESSMENT: 1. ACUTE ON CHRONIC RESPIRATORY FAILURE. 2. ADRENAL INSUFFICIENCY. 3. ACUTE EXACERBATION OF COPD. 4. ASTHMATIC BRONCHITIS. 5. FUNCTIONAL QUADRIPLEGIA. 6. URINARY TRACT INFECTION. 7. SEPSIS. 8. MULTIFOCAL ATRIAL TACHYCARDIA. NO EVIDENCE OF ATRIAL FIBRILLATION. 9. DIABETES MELLITUS TYPE 2, INSULIN-DEPENDENT. PLAN: 1. Continue insulin. 2. Continue respiratory treatment and antibiotics. 3. Continue Cardizem drip at 15 mg/hr. 4. Continue Lovenox at DVT prophylaxis dose. Note, 25 minutes spent on this patient, with more than 50% of the time spent on direct patient care. Also, medications have been reviewed and management plan has been discussed with the other caregiving providers on the case. Note that the patient is a DNR. Her daughter is her surrogate healthcare decision-maker. Note, medical decision-making is still highly complex in view of the patient continuing to have spurts of MAT and also making very slow progress. Note, for the adrenal insufficiency, would recommend continuing the patient's prednisone. Note that the patient has been encouraged to take increased fluid intake to prevent prerenal azotemia, secondary to dehydration. Will follow with you. DICTATING PHYSICIAN: SHANIKA BOWEN M.D. [id number] HEATH#: [id number] ID: [id number] JOB#: [id number] ACCT: [id number] cc: >
[2017-07-20] MEDS: LACTULOSE SYRUP 20 GM/30 ML UDCUP PO SCH (22:11)
[2017-07-20] MEDS: DIPHENHYDRAMINE HCL 25 MG CAPSULE PO PRN (22:42)
[2017-07-20] MEDS: ZOLPIDEM TARTRATE 5 MG TABLET PO PRN (22:43)
[2017-07-21] MEDS: MEROPENEM 1 GM in NORMAL SALINE 50 ML IV SCH ×3 (01:42→17:33)
[2017-07-21] MEDS: ALBUTEROL SULFATE 0.083% NEB 2.5 MG/3 ML AMPUL NEB PRN (02:06)
[2017-07-21] MEDS: ACETYLCYSTEINE 10% NEB 400 MG/4 ML VIAL NEB SCH ×4 (02:06→19:22)
[2017-07-21] MEDS: NYSTATIN 500000 UNIT/5 ML UDCUP PO SCH ×4 (05:47→23:25)
[2017-07-21] MEDS: DILTIAZEM HCL/D5W 125 MG/125 ML RTUINJ IV PRN (05:47)
[2017-07-21] MEDS: DILTIAZEM HCL 180 MG CAPSULE.CR PO SCH (05:47)
[2017-07-21] MEDS: HYDRALAZINE HCL 25 MG TABLET PO SCH ×3 (05:47→22:26)
[2017-07-21] MEDS: IPRATROPIUM/ALBUTEROL 0.5-2.5 MG/3 ML AMPUL NEB SCH ×3 (07:23→19:21)
[2017-07-21] MEDS: BUDESONIDE NEB 0.5 MG/2 ML AMPUL NEB SCH ×2 (07:23→19:21)
[2017-07-21] MEDS: ENOXAPARIN SODIUM INJ 40 MG/0.4 ML DISP.SYRIN SUBCUT SCH ×2 (09:37→22:22)
[2017-07-21] MEDS: INSULIN LISPRO 100 UNIT/ML 3 ML VIAL SUBCUT PRN ×3 (09:37→22:23)
[2017-07-21] MEDS: DULOXETINE HCL 30 MG CAPSULE.DR PO SCH (09:37)
[2017-07-21] MEDS: INSULIN DETEMIR 100 UNIT/ML 3 ML PEN SUBCUT SCH (09:37)
[2017-07-21] MEDS: RANOLAZINE 500 MG TAB.SR.12H PO SCH ×2 (09:37→22:26)
[2017-07-21] MEDS: DOCUSATE SODIUM 100 MG CAPSULE PO SCH (09:37)
[2017-07-21] MEDS: PREGABALIN 75 MG CAPSULE PO SCH ×2 (09:38→22:26)
[2017-07-21] MEDS: OXYCODONE-ACETAMINOPHEN 5-325 MG TABLET PO PRN ×2 (09:38→17:34)
[2017-07-21] MEDS: TAMSULOSIN HCL 0.4 MG CAP.SR.24H PO SCH (09:38)
[2017-07-21] MEDS: BUTALB/ACETAMINOPHEN/CAFFEINE 1 TAB EACH PO PRN ×2 (09:39→17:33)
[2017-07-21] MEDS: LORATADINE 10 MG TABLET PO SCH (09:39)
[2017-07-21] MEDS: BUSPIRONE HCL 10 MG TABLET PO SCH ×2 (09:39→22:24)
[2017-07-21] MEDS: METOPROLOL SUCCINATE 50 MG TAB.SR.24H PO SCH (09:39)
[2017-07-21] MEDS: GUAIFENESIN 600 MG TABLET.SA PO SCH ×2 (09:40→22:25)
[2017-07-21] MEDS: FERROUS SULFATE 325 MG TABLET PO SCH ×2 (09:40→17:34)
[2017-07-21] MEDS: PREDNISONE 20 MG TABLET PO SCH (09:40)
[2017-07-21] MEDS: BACLOFEN 10 MG TABLET PO PRN (09:41)
[2017-07-21] MEDS: ASPIRIN 81 MG TABLET, CHEWABLE PO SCH (09:41)
[2017-07-21] MEDS: FUROSEMIDE INJ/PF 40 MG/4 ML SDV IV SCH ×2 (09:42→22:21)
[2017-07-21] MEDS: POLYETHYLENE GLYCOL 3350 POWDER 17 GM/1 PACKET PO SCH ×2 (09:42→17:33)
[2017-07-21] MEDS: LIDOCAINE 5% (700 MG) TRANSDERMAL ADH..PATCH TP SCH (09:43)
[2017-07-21] MEDS ORDERED: DILTIAZEM HCL 60 MG TABLET PO ONE (12:00)
[2017-07-21] MEDS: ROFLUMILAST 500 MCG TABLET PO SCH (14:00)
[2017-07-21] MEDS ORDERED: MORPHINE SULFATE 10 MG/ML INJ IV PRN (14:07)
--- NOTE | 2017-07-21 15:09 | PDOC PROGRESS REPORT ---
Subjective Progress Note for:: 07/21/17 Reason For Visit: The patient is resting in her bed. She states that she is feeling somewhat better but is extremely weak and debilitated after this acute illness. She states that she discussed yesterday possible transfer to an LTAC in [place] that she has been to before. I will get the discharge planners involved and see if this is a possibility. Overall she denies fever chills. She has been weaned off of oxygen at this point. No further shortness of breath. She does have a little bit of a cough at times. She is tolerating her diet. No nausea vomiting or diarrhea. No abdominal pain. She remains with a Barton catheter in place. Physical Exam Vital Signs: Temp Pulse Resp BP Pulse Ox 98.4 F 54 L 14 134/109 H 94 07/21/17 12:37 07/21/17 14:48 07/21/17 14:48 07/21/17 12:37 07/21/17 12:37 Intake & Output 07/20/17 07/21/17 07/22/17 06:59 06:59 06:59 Intake Total 3644 1650 355 Output Total 6000 4050 750 Balance -7216 -2400 -395 Weight 102 kg 101.9 kg General appearance: PRESENT: no acute distress, morbidly obese, other - Chronically ill-appearing Head exam: PRESENT: atraumatic, normocephalic Eye exam: PRESENT: conjunctiva pink, EOMI, PERRLA. ABSENT: scleral icterus Mouth exam: PRESENT: moist, tongue midline Respiratory exam: PRESENT: crackles, decreased breath sounds - Especially in the lower bases, rhonchi Cardiovascular exam: PRESENT: RRR. ABSENT: diastolic murmur, rubs, systolic murmur GI/Abdominal exam: PRESENT: normal bowel sounds, soft, other - Her abdomen is obese. I could not assess for organomegaly due to the patient's body habitus. ABSENT: distended, guarding, mass, rebound, tenderness Rectal exam: PRESENT: deferred Extremities exam: PRESENT: full ROM, pedal edema. ABSENT: calf tenderness, clubbing Musculoskeletal exam: ABSENT: ambulatory Neurological exam: PRESENT: alert, awake, oriented to person, oriented to place , oriented to time, oriented to situation, CN II-XII grossly intact. ABSENT: motor sensory deficit Psychiatric exam: PRESENT: appropriate affect, normal mood. ABSENT: homicidal ideation, suicidal ideation Skin exam: PRESENT: dry, intact, warm. ABSENT: cyanosis, rash Results Laboratory Results: 07/20/17 06:00 07/20/17 06:00 07/16/17 07/18/17 07/18/17 11:35 13:20 18:55 Troponin I 0.016 0.027 NT-Pro-B Natriuret Pep 710 07/18/17 23:00 Troponin I 0.026 NT-Pro-B Natriuret Pep Impressions: Chest X-Ray 07/18/17 09:29 IMPRESSION: No significant interval change. No acute findings. Other findings as noted above Assessment & Plan - Diagnosis (1) Septic shock Is this a current diagnosis for this admission?: Yes Plan: Requiring intubation in the ICU. Resolved. This is likely due to a urinary tract infection. (2) Acute and chronic respiratory failure with hypoxia Plan: Requiring mechanical ventilation in the ICU. She has been successfully extubated. Her respiratory failure was due to septic shock. She states that she currently is not requiring oxygen and this is the first time she has not been on oxygen in the past 10 years. (3) UTI due to extended-spectrum beta lactamase (ESBL) producing Escherichia coli Is this a current diagnosis for this admission?: Yes Plan: She will continue IV meropenem through July 25, 2017 (4) Acute renal failure Is this a current diagnosis for this admission?: Yes Plan: Secondary to septic shock. Improving (5) Multifocal atrial tachycardia Is this a current diagnosis for this admission?: Yes Plan: Cardiology is following. We will await the recommendations. According to Dr. Graham he did not believe that this was atrial fibrillation. (6) Adrenal insufficiency Is this a current diagnosis for this admission?: Yes Plan: Continue prednisone (7) COR (chronic cor pulmonale) Is this a current diagnosis for this admission?: Yes Plan: Stable for now. Continue current regimen (8) COPD exacerbation Is this a current diagnosis for this admission?: Yes Plan: Currently on a prednisone taper (9) Obstructive sleep apnea Is this a current diagnosis for this admission?: Yes Plan: It is not clear whether she is using her CPAP at night. (10) Functional quadriplegia Is this a current diagnosis for this admission?: Yes Plan: Patient is requesting transfer to an LTAC in [place] that she has been to before. I will consult the discharge planners. This may be a good option for the patient. (11) Constipation Qualifiers: Constipation type: unspecified constipation type Qualified Code(s): K59.00 - Constipation, unspecified Is this a current diagnosis for this admission?: Yes Plan: Continue bowel regimen (12) Neck pain Is this a current diagnosis for this admission?: Yes Plan: Patient is complaining of increased neck pain this afternoon. We will give the patient a one-time dose of IV Toradol. She will continue to have baclofen available as well as Percocet. I will have IV morphine available for severe pain. (13) Anemia Is this a current diagnosis for this admission?: Yes Plan: Likely due to hemodilution. Resolved at this point. (14) Do not resuscitate Is this a current diagnosis for this admission?: Yes - Time Time Spent with patient: 25-34 minutes - Inpatient Certification Medical Necessity: Other - Inpatient hospitalization remains necessary. The patient is still requiring parenteral therapies. She is significantly debilitated after this acute illness. She is requesting transfer to an LTAC. I will get the discharge planners involved as I believe this could be a good option for the patient.
[2017-07-21] MEDS ORDERED: KETOROLAC TROMETHAMINE INJ/PF 30 MG/1 ML SDV IV ONE (15:30)
--- NOTE | 2017-07-21 16:44 | PROGRESS NOTE E ---
Progress Note NAME: PORSHA WALDRON : 1945 AGE: 72Y DATE: 07/21/2017 ROOM: 334 SUBJECTIVE: Note that the patient states her breathing is better but she has got a severe headache. She does have some cough which productive of very small quantities of white sputum. She denies any chest pain or discomfort. There is orthopnea present. There is no PND. There is no leg edema. The patient keeps going for short bursts of what seems to be multifocal atrial tachycardia. At present the patient has no PND, no chest pain suggestive of anginal symptoms. OBJECTIVE: GENERAL: On examination the patient is morbidly obese. VITAL SIGNS: She is afebrile with a temperature of 98.4 degrees Fahrenheit. Her pulse is 113 beats per minute, it shows multiple focal atrial tachycardia. Blood pressure is 134/109, respirations are 20 per minute, O2 saturations are 94% on room air. HEENT: Head is atraumatic, normocephalic. Eyes: Pupils are equal, round and regular, reactive to light and accommodation. Extraocular movements are normal. There is no conjunctival pallor. There is no scleral icterus. Ears: Tympanic membranes are intact, external auditory canals are clear. Nose: There is no deviated nasal septum. There is no inflammation of the nasal mucous membrane. Mouth: Mucous membranes of the mouth are moist. Tongue is moist. There are no ulcers, there is no bleeding from the gums. Throat: There is no redness of the oropharynx, there are no exudates. SKIN: There are no skin rashes. There is no skin lesion. There is no petechiae or ecchymosis. NECK: Supple. There is no JVD. There is no lymphadenopathy. There is no goiter. Carotids are equal. There is no bruit. There is no accessory muscle of respiration in use. Trachea is central. LUNGS: Show diminished air entry, prolonged expiration, and scattered a few minor wheezing and end-expiratory wheezing, and a few scattered rhonchi. There are no rales of CHF. HEART: S1, S2 is heard. There is no S3 gallop. There is no S4 gallop. There is a systolic murmur in the left sternal border and the apex. There is no rub. ABDOMEN: Soft, obese, nontender. There is no hepatosplenomegaly. Bowel sounds are well heard. EXTREMITIES: Femorals are diminished. There are no femoral bruits. Leg pulses are diminished. There is no pedal edema. There is no cyanosis or clubbing. There is no DVT or cellulitis. There is no calf tenderness. CENTRAL NERVOUS SYSTEM: The patient is conscious, awake, alert and oriented x3 with no focal deficits. PSYCHIATRIC: The patient's judgment and insight are intact. Her affect is normal. INTAKE/OUTPUT: The patient's 24 hour intake is 1650 mL, output is 4050 mL. The patient's blood sugar is 145. IMPRESSION: 1. HEADACHE, QUESTION *------*. 2. ACUTE ON CHRONIC RESPIRATORY FAILURE, IMPROVING. 3. ADRENAL INSUFFICIENCY. The patient is on steroids. 4. ACUTE EXACERBATION OF COPD. The patient is on Xopenex, steroids, and antibiotics. 5. ASTHMATIC BRONCHITIS. The patient, as mentioned earlier, is on respiratory treatments, steroids, and antibiotics. 6. FUNCTIONAL QUADRIPLEGIA. 7. MULTIFOCAL ATRIAL TACHYCARDIA. We will give the patient another 60 mg of Cardizem and increase the Cardizem CD to 240 mg p.o. q.12 hours. We will decrease the Cardizem drip to 0.5 mg per hour after half an hour after the first dose of p.o. Cardizem given. 8. DIABETES MELLITUS TYPE 2, INSULIN DEPENDENT. 9. URINARY TRACT INFECTION. 10. SEPSIS. RECOMMENDATION: Continue antibiotics, continue current treatment. We will increase the patient's Cardizem. Note since the patient is on multifocal atrial tachycardia no need for long-term anticoagulation. TIME SPENT: Note 30 minutes spent on this patient with more than 50% on the time spent on direct patient care. Her medications have been reviewed and medications adjusted as mentioned earlier. Note medical decision making is still of high complexity. DICTATING PHYSICIAN: SHANIKA BOWEN M.D. [id number] PHY#: [id number] ID: [id number] JOB#: [id number] ACCT: [id number] cc: >
[2017-07-21] MEDS ORDERED: DILTIAZEM HCL 240 MG CAPSULE.CR PO SCH (22:00)
[2017-07-21] MEDS: LACTULOSE SYRUP 20 GM/30 ML UDCUP PO SCH (22:21)
[2017-07-21] MEDS: DILTIAZEM HCL 240 MG CAPSULE.CR PO SCH (22:24)
[2017-07-21] MEDS: ZOLPIDEM TARTRATE 5 MG TABLET PO PRN (22:25)
[2017-07-21] MEDS: DIPHENHYDRAMINE HCL 25 MG CAPSULE PO PRN (22:26)
[2017-07-22] MEDS: ACETYLCYSTEINE 10% NEB 400 MG/4 ML VIAL NEB SCH ×4 (01:06→21:14)
[2017-07-22] MEDS: ALBUTEROL SULFATE 0.083% NEB 2.5 MG/3 ML AMPUL NEB PRN ×2 (01:06→21:14)
[2017-07-22] MEDS: MEROPENEM 1 GM in NORMAL SALINE 50 ML IV SCH ×3 (01:29→17:54)
[2017-07-22] MEDS: HYDRALAZINE HCL 25 MG TABLET PO SCH ×3 (05:18→22:28)
[2017-07-22] MEDS: NYSTATIN 500000 UNIT/5 ML UDCUP PO SCH ×3 (05:18→17:49)
[2017-07-22 06:02] LABS: APPEARANCE,URINE CLOUDY; BILIRUBIN,URINE NEGATIVE (NEGATIVE); COLOR,URINE YELLOW; GLUCOSE, URINE NEGATIVE (NEGATIVE); KETONES,URINE NEGATIVE (NEGATIVE); LEUKOCYTE ESTERASE,URINE LARGE (NEGATIVE); NITRITE,URINE NEGATIVE (NEGATIVE); PROTEIN,URINE NEGATIVE (NEGATIVE); URINE SPECIFIC GRAVITY 1.019; UROBILINOGEN,URINE NEGATIVE mg/dL (<2.0)
[2017-07-22 06:13] LABS: BLOOD UREA NITROGEN 53 mg/dL (7-20); CALCIUM 9.2 mg/dL (8.4-10.2); CHLORIDE 95 mmol/L (98-107); GLUCOSE 135 mg/dL (75-110); MAGNESIUM 2.5 mg/dL (1.6-2.3); POTASSIUM 3.3 mmol/L (3.6-5.0); SODIUM 141.5 mmol/L (137-145)
[2017-07-22 06:23] LABS: HEMATOCRIT 38.8 % (36.0-47.0); HEMOGLOBIN 12.9 g/dL (12.0-15.5); MEAN CORPUSCULAR HEMOGLOBIN 28.8 pg (27.0-33.4); MEAN CORPUSCULAR HGB CONC 33.4 g/dL (32.0-36.0); MEAN CORPUSCULAR VOLUME 86 fl (80-97); PLATELET COUNT 177 10^3/uL (150-450); RED BLOOD COUNT 4.49 10^6/uL (3.72-5.28); RED CELL DISTRIBUTION WIDTH 14.6 % (11.5-14.0); WHITE BLOOD COUNT 8.3 10^3/uL (4.0-10.5)
[2017-07-22 06:50] LABS: ANION GAP 8 (5-19); CARBON DIOXIDE 39 mmol/L (22-30)
[2017-07-22 07:19] LABS: ABSOLUTE LYMPHOCYTES# (MANUAL) 1.1 10^3/uL (0.5-4.7); ABSOLUTE MONOCYTES # (MANUAL) 0.7 10^3/uL (0.1-1.4); ABSOLUTE NEUTROPHILS# (MANUAL) 6.5 10^3/uL (1.7-8.2); BASOPHILS % (MANUAL) 0 % (0-2); EOSINOPHILS % (MANUAL) 0 % (0-6); LYMPHOCYTES % (MANUAL) 12 % (13-45); METAMYELOCYTES % (MANUAL) 2 % (0); MONOCYTES % (MANUAL) 9 % (3-13); PLATELET COMMENT ADEQUATE; RBC MORPHOLOGY COMMENT NORMO-CYTIC/CHROMIC; SEGMENTED NEUTROPHILS % (MAN) 76 % (42-78); TOTAL CELLS COUNTED 100; TOXIC GRANULATION 1+; TOXIC VACUOLATION PRESENT
[2017-07-22] MEDS: IPRATROPIUM/ALBUTEROL 0.5-2.5 MG/3 ML AMPUL NEB SCH ×3 (07:26→21:24)
[2017-07-22] MEDS: BUDESONIDE NEB 0.5 MG/2 ML AMPUL NEB SCH ×2 (07:26→21:14)
[2017-07-22] MEDS: FENTANYL 25 MCG/HR PATCH.TD72 TD SCH (10:34)
[2017-07-22] MEDS: POLYETHYLENE GLYCOL 3350 POWDER 17 GM/1 PACKET PO SCH ×2 (10:34→17:49)
[2017-07-22] MEDS: LIDOCAINE 5% (700 MG) TRANSDERMAL ADH..PATCH TP SCH (10:34)
[2017-07-22] MEDS: PREDNISONE 20 MG TABLET PO SCH (10:35)
[2017-07-22] MEDS: GUAIFENESIN 600 MG TABLET.SA PO SCH ×2 (10:35→22:29)
[2017-07-22] MEDS: DOCUSATE SODIUM 100 MG CAPSULE PO SCH (10:35)
[2017-07-22] MEDS: FERROUS SULFATE 325 MG TABLET PO SCH ×2 (10:35→17:49)
[2017-07-22] MEDS: ASPIRIN 81 MG TABLET, CHEWABLE PO SCH (10:36)
[2017-07-22] MEDS: BUSPIRONE HCL 10 MG TABLET PO SCH ×2 (10:36→22:30)
[2017-07-22] MEDS: PREGABALIN 75 MG CAPSULE PO SCH ×2 (10:36→22:28)
[2017-07-22] MEDS: TAMSULOSIN HCL 0.4 MG CAP.SR.24H PO SCH (10:36)
[2017-07-22] MEDS: INSULIN DETEMIR 100 UNIT/ML 3 ML PEN SUBCUT SCH (10:37)
[2017-07-22] MEDS: ENOXAPARIN SODIUM INJ 40 MG/0.4 ML DISP.SYRIN SUBCUT SCH ×2 (10:37→22:33)
[2017-07-22] MEDS: METOPROLOL SUCCINATE 50 MG TAB.SR.24H PO SCH (10:37)
[2017-07-22] MEDS: DILTIAZEM HCL 240 MG CAPSULE.CR PO SCH ×2 (10:38→22:27)
[2017-07-22] MEDS: DULOXETINE HCL 30 MG CAPSULE.DR PO SCH (10:38)
[2017-07-22] MEDS: BUTALB/ACETAMINOPHEN/CAFFEINE 1 TAB EACH PO PRN ×2 (10:38→17:49)
[2017-07-22] MEDS: LORATADINE 10 MG TABLET PO SCH (10:38)
[2017-07-22] MEDS: RANOLAZINE 500 MG TAB.SR.12H PO SCH ×2 (10:38→22:31)
[2017-07-22] MEDS: FUROSEMIDE INJ/PF 40 MG/4 ML SDV IV SCH (10:39)
[2017-07-22] MEDS: BACLOFEN 10 MG TABLET PO PRN (12:59)
[2017-07-22] MEDS: INSULIN LISPRO 100 UNIT/ML 3 ML VIAL SUBCUT PRN ×3 (12:59→22:32)
[2017-07-22] MEDS: ROFLUMILAST 500 MCG TABLET PO SCH (13:01)
[2017-07-22] MEDS ORDERED: ZOLPIDEM TARTRATE 5 MG TABLET PO PRN (16:23)
[2017-07-22] MEDS: OXYCODONE-ACETAMINOPHEN 5-325 MG TABLET PO PRN (17:48)
[2017-07-22] MEDS: METHYL SALICYLATE/MENTHOL BALM 29 GM TP SCH ×2 (18:50→22:41)
--- NOTE | 2017-07-22 19:28 | PDOC PROGRESS REPORT ---
Subjective Progress Note for:: 07/22/17 Subjective:: The patient is a 72-year-old obese female who was transferred from [place] with fever and hypotension appeared to be. She was found to have septic shock and was intubated in the ICU. Her septic shock due to an ESBL producing E. coli urinary tract infection. Her hospitalization has been complicated by acute renal failure and multifocal atrial tachycardia. Cardiology has been following. Overall she has been stabilized at this point and is doing better. She is significantly debilitated and has been referred out to a long-term acute care facility and [place]. She has been there before and has requested to be evaluated to see whether she could go there at discharge. She states she made tremendous strides when she went there before. Today she complains of ongoing neck pain. She is asking if we could stop her baclofen and try Flexeril. She states she has known disc issues in her neck and that she thinks the Flexeril would work better. She also continues to have a sore in her mouth on her tongue and is requesting some viscous lidocaine. She also is asking whether physical therapy and occupational therapy come work with her in the bed as she feels like she is losing her strength. Overall she states that she is feeling better. She denies fever or chills. No chest pain or heart palpitations. She is tolerating her diet. No nausea vomiting or diarrhea. She remains with a Barton catheter in place Reason For Visit: SEPTIC SHOCK Physical Exam Vital Signs: Temp Pulse Resp BP Pulse Ox 98.8 F 76 18 132/80 H 95 07/22/17 16:37 07/22/17 16:37 07/22/17 16:37 07/22/17 16:37 07/22/17 16:37 Intake & Output 07/21/17 07/22/17 07/23/17 06:59 06:59 06:59 Intake Total 1650 1585 1350 Output Total 4050 0 2100 Balance -1517 -651 -011 Weight 101.9 kg 100.6 kg General appearance: PRESENT: no acute distress, well-developed, well-nourished Head exam: PRESENT: atraumatic, normocephalic Eye exam: PRESENT: conjunctiva pink, EOMI, PERRLA. ABSENT: scleral icterus Ear exam: PRESENT: normal external ear exam Mouth exam: PRESENT: moist, tongue midline Respiratory exam: PRESENT: clear to auscultation elia. ABSENT: rales, rhonchi, wheezes Cardiovascular exam: PRESENT: RRR. ABSENT: diastolic murmur, rubs, systolic murmur Pulses: PRESENT: normal dorsalis pedis pul GI/Abdominal exam: PRESENT: normal bowel sounds, soft. ABSENT: distended, guarding, mass, organolmegaly, rebound, tenderness Rectal exam: PRESENT: deferred - The formis Extremities exam: PRESENT: full ROM. ABSENT: calf tenderness, clubbing, pedal edema Neurological exam: PRESENT: alert, awake, oriented to person, oriented to place , oriented to time, oriented to situation, CN II-XII grossly intact. ABSENT: motor sensory deficit Psychiatric exam: PRESENT: appropriate affect, normal mood. ABSENT: homicidal ideation, suicidal ideation Skin exam: PRESENT: dry, intact, warm. ABSENT: cyanosis, rash Results Laboratory Results: 07/22/17 05:20 07/22/17 05:20 07/22/17 07/22/17 07/22/17 05:20 05:20 05:20 WBC 8.3 RBC 4.49 Hgb 12.9 Hct 38.8 MCV 86 MCH 28.8 MCHC 33.4 RDW 14.6 H Plt Count 177 Seg Neutrophils % Not Reportable Lymphocytes % Not Reportable Monocytes % Not Reportable Eosinophils % Not Reportable Basophils % Not Reportable Absolute Neutrophils Not Reportable Absolute Lymphocytes Not Reportable Absolute Monocytes Not Reportable Absolute Eosinophils Not Reportable Absolute Basophils Not Reportable Sodium 141.5 Potassium 3.3 L Chloride 95 L Carbon Dioxide 39 H Anion Gap 8 BUN 53 H Creatinine 1.28 H Est GFR ( Amer) 49 L Est GFR (Non-Af Amer) 41 L Glucose 135 H Calcium 9.2 Magnesium 2.5 H Urine Color YELLOW Urine Appearance CLOUDY Urine pH 5.0 Ur Specific [place] 1.019 Urine Protein NEGATIVE Urine Glucose (UA) NEGATIVE Urine Ketones NEGATIVE Urine Blood NEGATIVE Urine Nitrite NEGATIVE Ur Leukocyte Esterase LARGE H Urine WBC (Auto) 120 Urine RBC (Auto) 9 07/16/17 07/18/17 07/18/17 11:35 13:20 18:55 Troponin I 0.016 0.027 NT-Pro-B Natriuret Pep 710 07/18/17 23:00 Troponin I 0.026 NT-Pro-B Natriuret Pep Impressions: Chest X-Ray 07/18/17 09:29 IMPRESSION: No significant interval change. No acute findings. Other findings as noted above Assessment & Plan - Diagnosis (1) Septic shock Is this a current diagnosis for this admission?: Yes Plan: Requiring intubation in the ICU. Resolved. This is likely due to a urinary tract infection. (2) Acute and chronic respiratory failure with hypoxia Plan: Requiring mechanical ventilation in the ICU. She has been successfully extubated. Her respiratory failure was due to septic shock. She states that she currently is not requiring oxygen and this is the first time she has not been on oxygen in the past 10 years. (3) UTI due to extended-spectrum beta lactamase (ESBL) producing Escherichia coli Is this a current diagnosis for this admission?: Yes Plan: She will continue IV meropenem through July 25, 2017 (4) Acute renal failure Is this a current diagnosis for this admission?: Yes Plan: Secondary to septic shock. Improving (5) Multifocal atrial tachycardia Is this a current diagnosis for this admission?: Yes Plan: Cardiology is following. Currently stable (6) Adrenal insufficiency Is this a current diagnosis for this admission?: Yes Plan: Continue prednisone (7) COR (chronic cor pulmonale) Is this a current diagnosis for this admission?: Yes Plan: Stable for now. Continue current regimen (8) COPD exacerbation Is this a current diagnosis for this admission?: Yes Plan: Currently on a prednisone taper (9) Obstructive sleep apnea Is this a current diagnosis for this admission?: Yes Plan: It is not clear whether she is using her CPAP at night. (10) Functional quadriplegia Is this a current diagnosis for this admission?: Yes Plan: Patient is requesting transfer to an LTAC in [place] that she has been to before. Discharge planning has referred her out. This may be a good option for the patient. (11) Constipation Qualifiers: Constipation type: unspecified constipation type Qualified Code(s): K59.00 - Constipation, unspecified Is this a current diagnosis for this admission?: Yes Plan: Continue bowel regimen (12) Neck pain Is this a current diagnosis for this admission?: Yes Plan: Patient is complaining of increased neck pain this afternoon. I will stop her baclofen and try Flexeril.. (13) Anemia Is this a current diagnosis for this admission?: Yes Plan: Likely due to hemodilution. Resolved at this point. (14) Do not resuscitate Is this a current diagnosis for this admission?: Yes - Time Time Spent with patient: 25-34 minutes - He went on yearly burn sometime within the lungs show you around [facility] - Inpatient Certification Medical Necessity: Other - Inpatient hospitalization remains necessary. The patient is improving. She has been referred out to an LTAC. If she is declined she likely will need to go back to her previous longterm facility. We will get physical therapy involved.
--- NOTE | 2017-07-22 21:49 | PROGRESS NOTE E ---
Progress Note NAME: PORSHA WALDRON : 1945 AGE: 72Y DATE: 07/22/2017 ROOM: 334 SUBJECTIVE: The patient states her shortness of breath is much improved and it is almost back to baseline. She does have chronic orthopnea but there is no PND. The patient remains in sinus rhythm without any recurrence of multifocal atrial tachycardia. She denies any chest pain or discomfort. There is no PND. There is no leg edema. There are no palpitations. There is no syncope or near syncope. The patient's cough has resolved. The patient has no further headache. OBJECTIVE: GENERAL: On examination the patient is morbidly obese in no acute distress. VITAL SIGNS: Her temperature is 98.2 degrees Fahrenheit and afebrile, pulse is 73 beats per minute, blood pressure 115/49, respirations are 18 per minute, O2 saturations are 94% on room air. HEENT: Head is atraumatic, normocephalic. Eyes: Pupils are equal, round and regular, reactive to light and accommodation. Extraocular movements are normal. There is no conjunctival pallor. There is no scleral icterus. Ears: Tympanic membranes are intact, external auditory canals are clear. Nose: There is no deviated nasal septum. There is no inflammation of the nasal mucous membrane. Mouth: Mucous membranes of the mouth are moist. Tongue is moist. There are no ulcers in the mouth, there is no bleeding from the gums. Throat: There is no redness of the oropharynx, there are no exudates. SKIN: There are no skin rashes. There is no skin lesion. There is no petechiae or ecchymosis. NECK: Supple. There is no JVD. There is no lymphadenopathy. Carotids are equal. There is no bruit. There is no accessory muscle of respiration in use. Trachea is central. LUNGS: Show diminished air entry, prolonged expiration without any rhonchi, rales, or wheezing. There are no rales of CHF. On percussion there is hyperresonance throughout. HEART: S1, S2 is heard. There is no S3 gallop. There is no S4 gallop. There is a systolic murmur in the left sternal border and the apex. There is no rub. ABDOMEN: Soft, obese, nontender. There is no hepatosplenomegaly. Bowel sounds are well heard. EXTREMITIES: Femorals are diminished. There are no femoral bruits. Leg pulses are diminished. There is no cyanosis or clubbing. There is no DVT or cellulitis. There is no calf tenderness. CENTRAL NERVOUS SYSTEM: The patient is conscious, awake, alert and oriented x3 with no focal deficits. PSYCHIATRIC: The patient's judgment and insight are intact. Her affect is normal. INTAKE/OUTPUT: Note that the patient's 24 hour intake is 1585 mL, output is 2050 mL. The patient's white count is 8300, hemoglobin is 12.9, hematocrit is 38.8, and the patient's platelet count is 177,000. The patient's sodium is 141.5, potassium is 3.3, chloride is 95, CO2 is 39. The patient's BUN is 53, creatinine 1.28, GFR is reduced at 41 which is chronic kidney disease stage 3, glucose is 135, calcium is 9.2, magnesium is 2.5. IMPRESSION: 1. HEADACHE, THIS IS RESOLVED. 2. ACUTE ON CHRONIC RESPIRATORY FAILURE, MUCH IMPROVED. The patient has good saturations on room air. 3. ADRENAL INSUFFICIENCY. The patient is on steroids. 4. ACUTE EXACERBATION OF COPD. The patient continues Xopenex, steroids, and antibiotics. Taper the steroids down. 5. ASTHMATIC BRONCHITIS. The patient, as mentioned earlier, is on respiratory treatments, steroids, and antibiotics. 6. FUNCTIONAL QUADRIPLEGIA. The patient may benefit from physiotherapy. 7. MULTIFOCAL ATRIAL TACHYCARDIA WITH NO RECURRENCE ON CARDIZEM CD 240 MG PO q.12 HOURS. 8. DIABETES MELLITUS TYPE 2, INSULIN DEPENDENT. 9. URINARY TRACT INFECTION SEEMS TO HAVE RESOLVED. Patient without any symptoms. 10. SEPSIS HAS RESOLVED. 11. CHRONIC KIDNEY DISEASE STAGE 3. RECOMMENDATION: As mentioned earlier. TIME SPENT: Twenty-five minutes spent on this patient with more than 50% of the time spent on direct patient care. Her medications have been reviewed and discussed the discharge medications with the attending physician on the case whenever the patient is being discharged. The patient's cardiac status is stable, will continue the patient on Cardizem CD as mentioned earlier. Note that the patient wants to be transferred to a long-term senior living facility in [place]. Cardiac status is stable, we will sign off the case. Medical decision making now is of moderate complexity. DICTATING PHYSICIAN: SHANIKA BOWEN M.D. [id number] PHY#: [id number] ID: [id number] JOB#: [id number] ACCT: [id number] cc: >
[2017-07-22] MEDS: CYCLOBENZAPRINE HCL 10 MG TABLET PO SCH (22:29)
[2017-07-22] MEDS: LACTULOSE SYRUP 20 GM/30 ML UDCUP PO SCH (22:32)
[2017-07-22] MEDS: LIDOCAINE 2% VISCOUS SOLN 20 ML UDCUP PO SCH (22:38)
[2017-07-23] MEDS: NYSTATIN 500000 UNIT/5 ML UDCUP PO SCH ×2 (01:40→05:43)
[2017-07-23] MEDS: MEROPENEM 1 GM in NORMAL SALINE 50 ML IV SCH ×3 (01:41→17:15)
[2017-07-23] MEDS: OXYCODONE-ACETAMINOPHEN 5-325 MG TABLET PO PRN (01:41)
[2017-07-23] MEDS: ACETYLCYSTEINE 10% NEB 400 MG/4 ML VIAL NEB SCH ×4 (02:45→21:05)
[2017-07-23] MEDS: ALBUTEROL SULFATE 0.083% NEB 2.5 MG/3 ML AMPUL NEB PRN ×2 (02:45→21:05)
[2017-07-23] MEDS: HYDRALAZINE HCL 25 MG TABLET PO SCH ×3 (05:42→21:35)
[2017-07-23] MEDS: CYCLOBENZAPRINE HCL 10 MG TABLET PO SCH ×3 (05:42→21:37)
[2017-07-23 06:10] LABS: ANION GAP 7 (5-19); BLOOD UREA NITROGEN 41 mg/dL (7-20); CALCIUM 8.7 mg/dL (8.4-10.2); CARBON DIOXIDE 37 mmol/L (22-30); CHLORIDE 97 mmol/L (98-107); GLUCOSE 118 mg/dL (75-110); MAGNESIUM 2.6 mg/dL (1.6-2.3); POTASSIUM 3.4 mmol/L (3.6-5.0); SODIUM 140.5 mmol/L (137-145)
[2017-07-23] MEDS: BUDESONIDE NEB 0.5 MG/2 ML AMPUL NEB SCH (08:31)
[2017-07-23] MEDS: IPRATROPIUM/ALBUTEROL 0.5-2.5 MG/3 ML AMPUL NEB SCH ×2 (08:31→13:37)
[2017-07-23] MEDS: ENOXAPARIN SODIUM INJ 40 MG/0.4 ML DISP.SYRIN SUBCUT SCH ×2 (09:26→21:34)
[2017-07-23] MEDS: LIDOCAINE 2% VISCOUS SOLN 20 ML UDCUP PO SCH ×4 (09:26→21:35)
[2017-07-23] MEDS: INSULIN DETEMIR 100 UNIT/ML 3 ML PEN SUBCUT SCH (09:26)
[2017-07-23] MEDS: PREGABALIN 75 MG CAPSULE PO SCH ×2 (09:32→21:36)
[2017-07-23] MEDS: TAMSULOSIN HCL 0.4 MG CAP.SR.24H PO SCH (09:32)
[2017-07-23] MEDS: METOPROLOL SUCCINATE 50 MG TAB.SR.24H PO SCH (09:33)
[2017-07-23] MEDS: RANOLAZINE 500 MG TAB.SR.12H PO SCH ×2 (09:33→21:38)
[2017-07-23] MEDS: FERROUS SULFATE 325 MG TABLET PO SCH ×2 (09:34→17:16)
[2017-07-23] MEDS: DULOXETINE HCL 30 MG CAPSULE.DR PO SCH (09:35)
[2017-07-23] MEDS: PREDNISONE 20 MG TABLET PO SCH (09:36)
[2017-07-23] MEDS: GUAIFENESIN 600 MG TABLET.SA PO SCH ×2 (09:36→21:38)
[2017-07-23] MEDS: LORATADINE 10 MG TABLET PO SCH (09:36)
[2017-07-23] MEDS: DOCUSATE SODIUM 100 MG CAPSULE PO SCH (09:37)
[2017-07-23] MEDS: DILTIAZEM HCL 240 MG CAPSULE.CR PO SCH ×2 (09:37→21:38)
[2017-07-23] MEDS: BUSPIRONE HCL 10 MG TABLET PO SCH ×2 (09:37→21:35)
[2017-07-23] MEDS: POLYETHYLENE GLYCOL 3350 POWDER 17 GM/1 PACKET PO SCH ×2 (09:38→17:16)
[2017-07-23] MEDS: LIDOCAINE 5% (700 MG) TRANSDERMAL ADH..PATCH TP SCH (09:38)
[2017-07-23] MEDS: ASPIRIN 81 MG TABLET, CHEWABLE PO SCH (09:38)
[2017-07-23] MEDS: METHYL SALICYLATE/MENTHOL BALM 29 GM TP SCH ×4 (09:41→21:57)
[2017-07-23] MEDS ORDERED: FUROSEMIDE 40 MG TABLET PO SCH (10:00)
[2017-07-23] MEDS: BUTALB/ACETAMINOPHEN/CAFFEINE 1 TAB EACH PO PRN ×2 (11:53→21:39)
[2017-07-23] MEDS: ROFLUMILAST 500 MCG TABLET PO SCH (14:00)
[2017-07-23] MEDS: INSULIN LISPRO 100 UNIT/ML 3 ML VIAL SUBCUT PRN (17:15)
[2017-07-23] MEDS: FUROSEMIDE 20 MG TABLET PO SCH (17:16)
--- NOTE | 2017-07-23 18:16 | PDOC PROGRESS REPORT ---
Subjective Progress Note for:: 07/23/17 Subjective:: Patient reports feels better however is concerned that she is only taking Lasix once a day Review of systems All organ systems evaluated and negative except as in subjective All laboratories and significant diagnostics have been reviewed Reason For Visit: SEPTIC SHOCK Physical Exam Vital Signs: Temp Pulse Resp BP Pulse Ox 97.5 F 92 30 H 115/51 L 100 07/23/17 02:00 07/23/17 07:00 07/23/17 05:41 07/23/17 02:00 07/23/17 02:00 Intake & Output 07/22/17 07/23/17 07/24/17 06:59 06:59 06:59 Intake Total 1585 1910 Output Total 0 2950 Balance -465 -1040 Weight 100.6 kg 92.8 kg General appearance: PRESENT: no acute distress, cooperative, obese Head exam: PRESENT: atraumatic, normocephalic Eye exam: PRESENT: conjunctiva pink, EOMI, PERRLA Ear exam: PRESENT: normal external ear exam, TM's normal bilaterally Mouth exam: PRESENT: moist, neck supple Neck exam: PRESENT: full ROM. ABSENT: JVD, lymphadenopathy, tenderness Respiratory exam: PRESENT: crackles - Soft basilar crackles Cardiovascular exam: PRESENT: diastolic murmur, RRR, systolic murmur Vascular exam: PRESENT: normal capillary refill GI/Abdominal exam: PRESENT: normal bowel sounds, soft. ABSENT: tenderness Extremities exam: ABSENT: clubbing, joint swelling, pedal edema, tenderness Musculoskeletal exam: ABSENT: ambulatory Neurological exam: PRESENT: alert, awake, oriented to person, oriented to place , oriented to time, oriented to situation, CN II-XII grossly intact Psychiatric exam: PRESENT: appropriate affect, normal mood Skin exam: PRESENT: intact, normal color Results Laboratory Results: 07/22/17 05:20 07/23/17 05:00 07/23/17 05:00 Sodium 140.5 Potassium 3.4 L Chloride 97 L Carbon Dioxide 37 H Anion Gap 7 BUN 41 H Creatinine 0.90 Est GFR ( Amer) > 60 Est GFR (Non-Af Amer) > 60 Glucose 118 H Calcium 8.7 Magnesium 2.6 H 07/16/17 07/18/17 07/18/17 11:35 13:20 18:55 Troponin I 0.016 0.027 NT-Pro-B Natriuret Pep 710 07/18/17 23:00 Troponin I 0.026 NT-Pro-B Natriuret Pep Impressions: Chest X-Ray 07/18/17 09:29 IMPRESSION: No significant interval change. No acute findings. Other findings as noted above Assessment & Plan - Diagnosis (1) Septic shock Is this a current diagnosis for this admission?: Yes Plan: Resolved. (2) ARF (acute renal failure) Qualifiers: Acute renal failure type: unspecified Qualified Code(s): N17.9 - Acute kidney failure, unspecified Is this a current diagnosis for this admission?: Yes Plan: Resolved (3) Acute and chronic respiratory failure Qualifiers: Respiratory failure complication: hypoxia Qualified Code(s): J96.21 - Acute and chronic respiratory failure with hypoxia Is this a current diagnosis for this admission?: Yes Plan: Continue oxygen supplementation and CPAP. Acute component resolved (4) Adrenal insufficiency Is this a current diagnosis for this admission?: Yes Plan: Due to long-standing use of steroids and to continue (5) Anemia Qualifiers: Anemia type: iron deficiency Iron deficiency anemia type: other iron deficiency Qualified Code(s): D50.8 - Other iron deficiency anemias Is this a current diagnosis for this admission?: Yes Plan: Stable. Drop related to dilutional issues (6) Functional quadriplegia Is this a current diagnosis for this admission?: Yes Plan: Patient debilitated. Supportive and recommend decubiti precautions (7) Sleep apnea Qualifiers: Sleep apnea type: obstructive Qualified Code(s): G47.33 - Obstructive sleep apnea (adult) (pediatric) Is this a current diagnosis for this admission?: Yes Plan: Continue CPAP while in-house (8) COR (chronic cor pulmonale) Is this a current diagnosis for this admission?: Yes (9) COPD exacerbation Is this a current diagnosis for this admission?: Yes Plan: Continue present management. Resolved (10) HTN (hypertension) Qualifiers: Hypertension type: essential hypertension Qualified Code(s): I10 - Essential (primary) hypertension Is this a current diagnosis for this admission?: Yes Plan: Improved (11) Chronic headache Is this a current diagnosis for this admission?: Yes Plan: Continue outpatient regimen (12) Chronic pain Qualifiers: Chronic pain type: chronic pain syndrome Qualified Code(s): G89.4 - Chronic pain syndrome Is this a current diagnosis for this admission?: Yes (13) Oral thrush Is this a current diagnosis for this admission?: Yes Plan: Continue nystatin (14) Constipation Qualifiers: Constipation type: unspecified constipation type Qualified Code(s): K59.00 - Constipation, unspecified Is this a current diagnosis for this admission?: Yes Plan: Multifactorial to placing bowel regimen. Continue current regimen (15) Leukocytosis Qualifiers: Leukocytosis type: unspecified Qualified Code(s): D72.829 - Elevated white blood cell count, unspecified Is this a current diagnosis for this admission?: Yes Plan: Resolved (16) Multifocal atrial tachycardia Is this a current diagnosis for this admission?: Yes Plan: Improved. Continue current regimen (17) UTI due to extended-spectrum beta lactamase (ESBL) producing Escherichia coli Is this a current diagnosis for this admission?: Yes Plan: Continue meropenem for a total of 10 day IV therapy - Time Time Spent with patient: 15-24 minutes Medications reviewed and adjusted accordingly: Yes Anticipated discharge: SNF Within: within 72 hours - Inpatient Certification Based on my medical assessment, after consideration of the patient's comorbidities, presenting symptoms, or acuity I expect that the services needed warrant INPATIENT care.: Yes I certify that my determination is in accordance with my understanding of Medicare's requirements for reasonable and necessary INPATIENT services [42 CFR 412.3e].: Yes Medical Necessity: Need for IV Antibiotics
--- NOTE | 2017-07-23 21:19 | Progress Note ---
Provider Note Provider Note: Palliative care follow up visit 07/23/17 1:40 PM Follow up visit with Mrs. Fernandez who is doing much better, Looks like tomorrow is her last day on Meropenem. She says she wants to go to LTAC, however, she has not heard if bed is going to be offered. If she is going to be finished woth ehr antibiotics, there may not be a reason to accept her at LTAC. Patient is complaining of headache. W discussed possible causes and she feels it is from tightness in her neck. SHe states her Baclofen was changed to flexeril today. This might help her neck muscles thus helping her headache, although there is always concern about stopping baclofen suddenly. She said her fiorcet helps some and just relaxing also helps. SHe feels the IV access in her right neck is causing her to hod her head in a position that increases her headache. 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 She has not had any fever for several days and labs are stable. She thinks the LTAC helped her before, but if there is no medical need this may not happen for her. I dont think case resource manager PT will help either, but she may benefit from some PT back at [facility] to help her regain some use of her muscles and be less dependent on others. Breathing is easier today and BS are clear anteriorly, not repositioned to listen to posterior BS due to ehadache. Less edema face and arms. No dyspnea noted and no cough. Eccymosis on forearms, some bleeding at IV access site right neck. No recommendations at this time, will follow for emotional support. Cristian still wants her neice to be her health care power of insurance attorney and she wants to continue DNR order.
[2017-07-23] MEDS: LACTULOSE SYRUP 20 GM/30 ML UDCUP PO SCH (21:34)
[2017-07-23] MEDS: FLUTICASONE/SALMETEROL DISKUS 500-50 MCG/DOSE IH SCH (21:37)
[2017-07-23 23:27] LABS: ANION GAP 9 (5-19); BLOOD UREA NITROGEN 41 mg/dL (7-20); CARBON DIOXIDE 33 mmol/L (22-30); CHLORIDE 97 mmol/L (98-107); GLUCOSE 272 mg/dL (75-110); POTASSIUM 3.6 mmol/L (3.6-5.0)
[2017-07-24] MEDS: MEROPENEM 1 GM in NORMAL SALINE 50 ML IV SCH (02:00)
[2017-07-24] MEDS: ALBUTEROL SULFATE 0.083% NEB 2.5 MG/3 ML AMPUL NEB PRN ×4 (02:20→20:53)
[2017-07-24] MEDS: ACETYLCYSTEINE 10% NEB 400 MG/4 ML VIAL NEB SCH ×4 (02:20→20:53)
[2017-07-24] MEDS: INSULIN LISPRO 100 UNIT/ML 3 ML VIAL SUBCUT PRN ×3 (05:34→18:22)
[2017-07-24] MEDS: HYDRALAZINE HCL 25 MG TABLET PO SCH ×3 (05:35→22:55)
[2017-07-24] MEDS: CYCLOBENZAPRINE HCL 10 MG TABLET PO SCH ×3 (05:35→22:55)
[2017-07-24] MEDS: LIDOCAINE 2% VISCOUS SOLN 20 ML UDCUP PO SCH ×4 (08:25→22:52)
[2017-07-24 08:48] LABS: HEMOGLOBIN 12.4 g/dL (12.0-15.5); MEAN CORPUSCULAR HEMOGLOBIN 28.8 pg (27.0-33.4); MEAN CORPUSCULAR HGB CONC 33.4 g/dL (32.0-36.0); MEAN CORPUSCULAR VOLUME 86 fl (80-97); PLATELET COUNT 219 10^3/uL (150-450); RED CELL DISTRIBUTION WIDTH 14.9 % (11.5-14.0); WHITE BLOOD COUNT 9.8 10^3/uL (4.0-10.5)
[2017-07-24 08:53] LABS: APPEARANCE,URINE SLIGHTLY-CLOUDY; BILIRUBIN,URINE NEGATIVE (NEGATIVE); COLOR,URINE YELLOW; GLUCOSE, URINE NEGATIVE (NEGATIVE); KETONES,URINE NEGATIVE (NEGATIVE); LEUKOCYTE ESTERASE,URINE SMALL (NEGATIVE); NITRITE,URINE NEGATIVE (NEGATIVE); PROTEIN,URINE NEGATIVE (NEGATIVE); URINE SPECIFIC GRAVITY 1.019; UROBILINOGEN,URINE NEGATIVE mg/dL (<2.0)
[2017-07-24] MEDS ORDERED: PREDNISONE 20 MG TABLET PO SCH (10:00)
[2017-07-24] MEDS: ENOXAPARIN SODIUM INJ 40 MG/0.4 ML DISP.SYRIN SUBCUT SCH ×2 (11:11→22:58)
[2017-07-24] MEDS: TIOTROPIUM BROMIDE DPI 5 CAP/KIT (18 MCG/CAP) IH SCH (11:12)
[2017-07-24] MEDS: FLUTICASONE/SALMETEROL DISKUS 500-50 MCG/DOSE IH SCH ×2 (11:16→22:56)
[2017-07-24] MEDS: RANOLAZINE 500 MG TAB.SR.12H PO SCH ×2 (11:17→22:55)
[2017-07-24] MEDS: BUTALB/ACETAMINOPHEN/CAFFEINE 1 TAB EACH PO PRN (11:17)
[2017-07-24] MEDS: TAMSULOSIN HCL 0.4 MG CAP.SR.24H PO SCH (11:18)
[2017-07-24] MEDS: DULOXETINE HCL 30 MG CAPSULE.DR PO SCH (11:19)
[2017-07-24] MEDS: FERROUS SULFATE 325 MG TABLET PO SCH ×2 (11:19→18:24)
[2017-07-24] MEDS: DILTIAZEM HCL 240 MG CAPSULE.CR PO SCH ×2 (11:20→22:52)
[2017-07-24] MEDS: GUAIFENESIN 600 MG TABLET.SA PO SCH ×2 (11:20→22:55)
[2017-07-24] MEDS: BUSPIRONE HCL 10 MG TABLET PO SCH ×2 (11:21→22:55)
[2017-07-24] MEDS: PREDNISONE 10 MG TABLET PO SCH (11:22)
[2017-07-24] MEDS: FUROSEMIDE 20 MG TABLET PO SCH (11:22)
[2017-07-24] MEDS: PREGABALIN 75 MG CAPSULE PO SCH ×2 (11:23→22:55)
[2017-07-24] MEDS: METOPROLOL SUCCINATE 50 MG TAB.SR.24H PO SCH (11:23)
[2017-07-24] MEDS: DOCUSATE SODIUM 100 MG CAPSULE PO SCH (11:24)
[2017-07-24] MEDS: ASPIRIN 81 MG TABLET, CHEWABLE PO SCH (11:24)
[2017-07-24] MEDS: POLYETHYLENE GLYCOL 3350 POWDER 17 GM/1 PACKET PO SCH ×2 (11:26→18:23)
[2017-07-24] MEDS: LIDOCAINE 5% (700 MG) TRANSDERMAL ADH..PATCH TP SCH (11:27)
[2017-07-24] MEDS: METHYL SALICYLATE/MENTHOL BALM 29 GM TP SCH ×4 (11:28→23:01)
[2017-07-24] MEDS: INSULIN DETEMIR 100 UNIT/ML 3 ML PEN SUBCUT SCH (13:42)
[2017-07-24] MEDS: OXYCODONE-ACETAMINOPHEN 5-325 MG TABLET PO PRN (13:43)
[2017-07-24] MEDS: ROFLUMILAST 500 MCG TABLET PO SCH (13:44)
[2017-07-24] MEDS ORDERED: SORBITOL 70% SOLUTION 30 ML UDC PO PRN (15:07)
--- NOTE | 2017-07-24 15:19 | PDOC PROGRESS REPORT ---
Subjective Progress Note for:: 07/24/17 Subjective:: Patient complains of not being able to move her bowels for the past 3 days. Patient complains of headache and she thinks she might be building up fluid. Review of systems All organ systems evaluated and negative except as in subjective All laboratories and significant diagnotics had been reviewed Reason For Visit: SEPTIC SHOCK Physical Exam Vital Signs: Temp Pulse Resp BP Pulse Ox 97.8 F 55 L 18 118/68 100 07/24/17 03:50 07/24/17 03:50 07/24/17 03:50 07/24/17 03:50 07/24/17 03:50 Intake & Output 07/23/17 07/24/17 07/25/17 06:59 06:59 06:59 Intake Total 1910 1905 Output Total 2950 2150 Balance -1040 -245 Weight 92.8 kg 101.8 kg General appearance: PRESENT: no acute distress, cooperative Head exam: PRESENT: atraumatic Eye exam: PRESENT: EOMI, PERRLA Ear exam: PRESENT: normal external ear exam Neck exam: PRESENT: full ROM. ABSENT: JVD, lymphadenopathy, tenderness Respiratory exam: PRESENT: clear to auscultation elia Cardiovascular exam: PRESENT: RRR. ABSENT: diastolic murmur, systolic murmur Vascular exam: PRESENT: normal capillary refill GI/Abdominal exam: PRESENT: normal bowel sounds, soft. ABSENT: tenderness Extremities exam: ABSENT: clubbing, full ROM, joint swelling, pedal edema Musculoskeletal exam: PRESENT: ambulatory Neurological exam: PRESENT: alert, awake, oriented to person, oriented to place , oriented to time, oriented to situation, CN II-XII grossly intact Psychiatric exam: PRESENT: appropriate affect, normal mood Skin exam: PRESENT: intact, normal color Results Laboratory Results: 07/22/17 05:20 07/23/17 22:40 07/23/17 22:40 Sodium 139.0 Potassium 3.6 Chloride 97 L Carbon Dioxide 33 H Anion Gap 9 BUN 41 H Creatinine 1.24 Est GFR ( Amer) 51 L Est GFR (Non-Af Amer) 42 L Glucose 272 H Calcium 9.0 07/16/17 07/18/17 07/18/17 11:35 13:20 18:55 Troponin I 0.016 0.027 NT-Pro-B Natriuret Pep 710 07/18/17 23:00 Troponin I 0.026 NT-Pro-B Natriuret Pep Impressions: Chest X-Ray 07/18/17 09:29 IMPRESSION: No significant interval change. No acute findings. Other findings as noted above Assessment & Plan - Diagnosis (1) Septic shock Is this a current diagnosis for this admission?: Yes Plan: Resolved. (2) ARF (acute renal failure) Qualifiers: Acute renal failure type: unspecified Qualified Code(s): N17.9 - Acute kidney failure, unspecified Is this a current diagnosis for this admission?: Yes Plan: Resolved (3) Acute and chronic respiratory failure Qualifiers: Respiratory failure complication: hypoxia Qualified Code(s): J96.21 - Acute and chronic respiratory failure with hypoxia Is this a current diagnosis for this admission?: Yes Plan: Continue oxygen supplementation and CPAP. Acute component resolved (4) Adrenal insufficiency Is this a current diagnosis for this admission?: Yes Plan: Due to long-standing use of steroids and to continue (5) Anemia Qualifiers: Anemia type: iron deficiency Iron deficiency anemia type: other iron deficiency Qualified Code(s): D50.8 - Other iron deficiency anemias Is this a current diagnosis for this admission?: Yes Plan: Stable. Drop related to dilutional issues (6) Functional quadriplegia Is this a current diagnosis for this admission?: Yes Plan: Patient debilitated. Supportive and recommend decubiti precautions (7) Sleep apnea Qualifiers: Sleep apnea type: obstructive Qualified Code(s): G47.33 - Obstructive sleep apnea (adult) (pediatric) Is this a current diagnosis for this admission?: Yes Plan: Continue CPAP while in-house (8) COR (chronic cor pulmonale) Is this a current diagnosis for this admission?: Yes Plan: Patient is on Lasix as well for a history of diastolic dysfunction. To continue lasix but to trend renal since may be cardiorenal (9) COPD exacerbation Is this a current diagnosis for this admission?: Yes Plan: Continue present management. Resolved (10) HTN (hypertension) Qualifiers: Hypertension type: essential hypertension Qualified Code(s): I10 - Essential (primary) hypertension Is this a current diagnosis for this admission?: Yes Plan: Improved (11) Chronic headache Qualifiers: Headache type: unspecified Is this a current diagnosis for this admission?: Yes Plan: Continue outpatient regimen (12) Chronic pain Qualifiers: Chronic pain type: chronic pain syndrome Qualified Code(s): G89.4 - Chronic pain syndrome Is this a current diagnosis for this admission?: Yes Plan: Patient suffers from chronic pain which is multiple factorial including fibromyalgia. ontinue outpatient regimen since patient opioid dependant (13) Oral thrush Is this a current diagnosis for this admission?: Yes Plan: Continue nystatin (14) Constipation Qualifiers: Constipation type: unspecified constipation type Qualified Code(s): K59.00 - Constipation, unspecified Is this a current diagnosis for this admission?: Yes Plan: Multifactorial to placing bowel regimen. Increase lactulose and add fleet enema prn (15) Leukocytosis Qualifiers: Leukocytosis type: unspecified Qualified Code(s): D72.829 - Elevated white blood cell count, unspecified Is this a current diagnosis for this admission?: Yes Plan: Resolved (16) Multifocal atrial tachycardia Is this a current diagnosis for this admission?: Yes Plan: Improved. Continue current regimen (17) UTI due to extended-spectrum beta lactamase (ESBL) producing Escherichia coli Is this a current diagnosis for this admission?: Yes Plan: Continue meropenem for a total of 10 day IV therapy. Today will be her last day of therapy. - Time Time Spent with patient: 15-24 minutes Medications reviewed and adjusted accordingly: Yes Anticipated discharge: SNF Within: within 48 hours - Inpatient Certification Based on my medical assessment, after consideration of the patient's comorbidities, presenting symptoms, or acuity I expect that the services needed warrant INPATIENT care.: Yes I certify that my determination is in accordance with my understanding of Medicare's requirements for reasonable and necessary INPATIENT services [42 CFR 412.3e].: Yes Medical Necessity: Need Close Monitoring Due to Risk of Patient Decompensation
[2017-07-24] MEDS: LACTULOSE SYRUP 20 GM/30 ML UDCUP PO SCH (18:22)
[2017-07-24] MEDS: NA PHOS,M-B/NA PHOS,DI-BA (ADULT) 133 ML ENEMA PR SCH (23:01)
[2017-07-25] MEDS: ALBUTEROL SULFATE 0.083% NEB 2.5 MG/3 ML AMPUL NEB PRN ×4 (02:53→19:49)
[2017-07-25] MEDS: ACETYLCYSTEINE 10% NEB 400 MG/4 ML VIAL NEB SCH ×4 (02:54→19:49)
[2017-07-25] MEDS: OXYCODONE-ACETAMINOPHEN 5-325 MG TABLET PO PRN ×3 (03:43→22:44)
[2017-07-25] MEDS: HYDRALAZINE HCL 25 MG TABLET PO SCH ×3 (05:28→22:42)
[2017-07-25] MEDS: CYCLOBENZAPRINE HCL 10 MG TABLET PO SCH ×3 (05:29→22:43)
[2017-07-25 06:59] LABS: ANION GAP 6 (5-19); BLOOD UREA NITROGEN 38 mg/dL (7-20); CALCIUM 8.7 mg/dL (8.4-10.2); CARBON DIOXIDE 32 mmol/L (22-30); CHLORIDE 104 mmol/L (98-107); GLUCOSE 79 mg/dL (75-110); POTASSIUM 3.7 mmol/L (3.6-5.0); SODIUM 141.8 mmol/L (137-145)
[2017-07-25] MEDS: NA PHOS,M-B/NA PHOS,DI-BA (ADULT) 133 ML ENEMA PR SCH ×2 (09:43→22:37)
[2017-07-25] MEDS: LIDOCAINE 2% VISCOUS SOLN 20 ML UDCUP PO SCH ×4 (09:56→22:48)
[2017-07-25] MEDS: LACTULOSE SYRUP 20 GM/30 ML UDCUP PO SCH ×2 (09:56→17:40)
[2017-07-25] MEDS: FLUTICASONE/SALMETEROL DISKUS 500-50 MCG/DOSE IH SCH ×2 (09:56→22:48)
[2017-07-25] MEDS: FERROUS SULFATE 325 MG TABLET PO SCH ×2 (09:57→17:39)
[2017-07-25] MEDS: BUSPIRONE HCL 10 MG TABLET PO SCH ×2 (09:57→22:44)
[2017-07-25] MEDS: METOPROLOL SUCCINATE 50 MG TAB.SR.24H PO SCH (09:57)
[2017-07-25] MEDS: DOCUSATE SODIUM 100 MG CAPSULE PO SCH (09:57)
[2017-07-25] MEDS: PREDNISONE 10 MG TABLET PO SCH (09:57)
[2017-07-25] MEDS: PREGABALIN 75 MG CAPSULE PO SCH ×2 (09:57→22:44)
[2017-07-25] MEDS: FUROSEMIDE 20 MG TABLET PO SCH (09:57)
[2017-07-25] MEDS: DILTIAZEM HCL 240 MG CAPSULE.CR PO SCH ×2 (09:57→22:43)
[2017-07-25] MEDS: GUAIFENESIN 600 MG TABLET.SA PO SCH ×2 (09:57→22:43)
[2017-07-25] MEDS: DULOXETINE HCL 30 MG CAPSULE.DR PO SCH (09:58)
[2017-07-25] MEDS: ASPIRIN 81 MG TABLET, CHEWABLE PO SCH (09:58)
[2017-07-25] MEDS: TIOTROPIUM BROMIDE DPI 5 CAP/KIT (18 MCG/CAP) IH SCH (09:58)
[2017-07-25] MEDS: TAMSULOSIN HCL 0.4 MG CAP.SR.24H PO SCH (09:58)
[2017-07-25] MEDS: ENOXAPARIN SODIUM INJ 40 MG/0.4 ML DISP.SYRIN SUBCUT SCH ×2 (09:58→22:48)
[2017-07-25] MEDS: LIDOCAINE 5% (700 MG) TRANSDERMAL ADH..PATCH TP SCH (09:58)
[2017-07-25] MEDS: RANOLAZINE 500 MG TAB.SR.12H PO SCH ×2 (09:58→22:43)
[2017-07-25] MEDS: INSULIN DETEMIR 100 UNIT/ML 3 ML PEN SUBCUT SCH (09:59)
[2017-07-25] MEDS: METHYL SALICYLATE/MENTHOL BALM 29 GM TP SCH ×4 (10:05→23:28)
[2017-07-25] MEDS: SIMETHICONE 80 MG TAB.CHEW PO PRN (10:19)
[2017-07-25] MEDS: POLYETHYLENE GLYCOL 3350 POWDER 17 GM/1 PACKET PO SCH ×2 (10:19→17:40)
--- NOTE | 2017-07-25 13:27 | PDOC PROGRESS REPORT ---
Subjective Progress Note for:: 07/25/17 Subjective:: Patient refers that feels fair and still feeling some chest congestion Review of systems All organ systems evaluated and negative except as in subjective All laboratories and significant diagnostics have been reviewed Reason For Visit: SEPTIC SHOCK Physical Exam Vital Signs: Temp Pulse Resp BP Pulse Ox 98.5 F 75 22 H 125/48 L 95 07/25/17 11:17 07/25/17 11:17 07/25/17 11:17 07/25/17 11:17 07/25/17 08:21 Intake & Output 07/24/17 07/25/17 07/26/17 06:59 06:59 06:59 Intake Total 1905 1210 400 Output Total 2150 1750 400 Balance -245 -540 0 Weight 101.8 kg 103.9 kg General appearance: PRESENT: no acute distress, cooperative, obese Head exam: PRESENT: atraumatic, normocephalic Eye exam: PRESENT: conjunctiva pink, EOMI, PERRLA Ear exam: PRESENT: normal external ear exam Mouth exam: PRESENT: moist Neck exam: PRESENT: full ROM. ABSENT: JVD, lymphadenopathy, tenderness Respiratory exam: PRESENT: rhonchi. ABSENT: tachypnea, unlabored, wheezes Cardiovascular exam: PRESENT: RRR. ABSENT: diastolic murmur, systolic murmur Vascular exam: PRESENT: normal capillary refill GI/Abdominal exam: PRESENT: normal bowel sounds, soft. ABSENT: tenderness Extremities exam: PRESENT: +2 edema Neurological exam: PRESENT: alert, awake, oriented to person, oriented to place , oriented to time, oriented to situation Psychiatric exam: PRESENT: depressed Skin exam: PRESENT: intact, normal color Results Laboratory Results: 07/24/17 08:20 07/25/17 05:30 07/24/17 07/25/17 22:00 05:30 Sodium 141.8 Potassium 3.7 Chloride 104 Carbon Dioxide 32 H Anion Gap 6 BUN 38 H Creatinine 0.90 Est GFR ( Amer) > 60 Est GFR (Non-Af Amer) > 60 Glucose 79 Calcium 8.7 Stool Occult Blood POSITIVE 07/16/17 07/18/17 07/18/17 11:35 13:20 18:55 Troponin I 0.016 0.027 NT-Pro-B Natriuret Pep 710 07/18/17 23:00 Troponin I 0.026 NT-Pro-B Natriuret Pep Impressions: Chest X-Ray 07/18/17 09:29 IMPRESSION: No significant interval change. No acute findings. Other findings as noted above Assessment & Plan - Diagnosis (1) Septic shock Is this a current diagnosis for this admission?: Yes Plan: Resolved. (2) ARF (acute renal failure) Qualifiers: Acute renal failure type: unspecified Qualified Code(s): N17.9 - Acute kidney failure, unspecified Is this a current diagnosis for this admission?: Yes Plan: Resolved (3) Acute and chronic respiratory failure Qualifiers: Respiratory failure complication: hypoxia Qualified Code(s): J96.21 - Acute and chronic respiratory failure with hypoxia Is this a current diagnosis for this admission?: Yes Plan: Continue oxygen supplementation and CPAP. Acute component resolved (4) Adrenal insufficiency Is this a current diagnosis for this admission?: Yes Plan: Due to long-standing use of steroids and to continue (5) Anemia Qualifiers: Anemia type: iron deficiency Iron deficiency anemia type: other iron deficiency Qualified Code(s): D50.8 - Other iron deficiency anemias Is this a current diagnosis for this admission?: Yes Plan: Stable. Drop related to dilutional issues (6) Functional quadriplegia Is this a current diagnosis for this admission?: Yes Plan: Patient debilitated. Supportive and recommend decubiti precautions (7) Sleep apnea Qualifiers: Sleep apnea type: obstructive Qualified Code(s): G47.33 - Obstructive sleep apnea (adult) (pediatric) Is this a current diagnosis for this admission?: Yes Plan: Continue CPAP while in-house (8) COR (chronic cor pulmonale) Is this a current diagnosis for this admission?: Yes Plan: Patient is on Lasix as well for a history of diastolic dysfunction. To continue lasix but to trend renal since may be cardiorenal (9) COPD exacerbation Is this a current diagnosis for this admission?: Yes Plan: Continue present management. Resolved. Order chest xray. Will keep over 9 basically to observe otherwise will be discharged in a.m. (10) HTN (hypertension) Qualifiers: Hypertension type: essential hypertension Qualified Code(s): I10 - Essential (primary) hypertension Is this a current diagnosis for this admission?: Yes Plan: Improved (11) Chronic headache Qualifiers: Headache type: unspecified Is this a current diagnosis for this admission?: Yes Plan: Continue outpatient regimen (12) Chronic pain Qualifiers: Chronic pain type: chronic pain syndrome Qualified Code(s): G89.4 - Chronic pain syndrome Is this a current diagnosis for this admission?: Yes Plan: Patient suffers from chronic pain which is multiple factorial including fibromyalgia. ontinue outpatient regimen since patient opioid dependant (13) Oral thrush Is this a current diagnosis for this admission?: Yes Plan: Continue nystatin. Patient has been encouraged as to clean the dentures very thoroughly since otherwise we will keep infection in her mouth (14) Constipation Qualifiers: Constipation type: unspecified constipation type Qualified Code(s): K59.00 - Constipation, unspecified Is this a current diagnosis for this admission?: Yes Plan: Multifactorial. Continue current regimen (15) Leukocytosis Qualifiers: Leukocytosis type: unspecified Qualified Code(s): D72.829 - Elevated white blood cell count, unspecified Is this a current diagnosis for this admission?: Yes Plan: Resolved (16) Multifocal atrial tachycardia Is this a current diagnosis for this admission?: Yes Plan: Resolved. Continue current regimen (17) UTI due to extended-spectrum beta lactamase (ESBL) producing Escherichia coli Is this a current diagnosis for this admission?: Yes Plan: Finalize 10 day meropenem on 07/24 - Time Time Spent with patient: Less than 15 minutes Medications reviewed and adjusted accordingly: Yes Anticipated discharge: SNF Within: within 24 hours - Inpatient Certification Based on my medical assessment, after consideration of the patient's comorbidities, presenting symptoms, or acuity I expect that the services needed warrant INPATIENT care.: Yes I certify that my determination is in accordance with my understanding of Medicare's requirements for reasonable and necessary INPATIENT services [42 CFR 412.3e].: Yes Medical Necessity: Need Close Monitoring Due to Risk of Patient Decompensation
[2017-07-25] MEDS: ROFLUMILAST 500 MCG TABLET PO SCH (14:14)
[2017-07-25] MEDS: BUTALB/ACETAMINOPHEN/CAFFEINE 1 TAB EACH PO PRN (14:55)
[2017-07-25] MEDS: INSULIN LISPRO 100 UNIT/ML 3 ML VIAL SUBCUT PRN (16:42)
[2017-07-26] MEDS: INSULIN LISPRO 100 UNIT/ML 3 ML VIAL SUBCUT PRN ×4 (00:33→17:29)
[2017-07-26] MEDS: ACETYLCYSTEINE 10% NEB 400 MG/4 ML VIAL NEB SCH ×3 (02:09→13:14)
[2017-07-26] MEDS: ALBUTEROL SULFATE 0.083% NEB 2.5 MG/3 ML AMPUL NEB PRN ×3 (02:09→13:15)
[2017-07-26] MEDS: CYCLOBENZAPRINE HCL 10 MG TABLET PO SCH ×2 (05:52→14:32)
[2017-07-26] MEDS: HYDRALAZINE HCL 25 MG TABLET PO SCH ×2 (05:53→14:33)
[2017-07-26 06:27] LABS: HEMATOCRIT 33.9 % (36.0-47.0); HEMOGLOBIN 11.4 g/dL (12.0-15.5); MEAN CORPUSCULAR HEMOGLOBIN 29.3 pg (27.0-33.4); MEAN CORPUSCULAR HGB CONC 33.7 g/dL (32.0-36.0); MEAN CORPUSCULAR VOLUME 87 fl (80-97); PLATELET COUNT 193 10^3/uL (150-450); RED BLOOD COUNT 3.91 10^6/uL (3.72-5.28); RED CELL DISTRIBUTION WIDTH 15.1 % (11.5-14.0); WHITE BLOOD COUNT 8.1 10^3/uL (4.0-10.5)
--- NOTE | 2017-07-26 08:40 | RADIOLOGY REPORT (SQ) ---
EXAM DESCRIPTION: CHEST SINGLE VIEW COMPLETED DATE/TIME: 07/25/2017 7:26 pm REASON FOR STUDY: chest congestion COMPARISON: 07/18/2017. NUMBER OF VIEWS: One view. TECHNIQUE: Single frontal radiographic view of the chest acquired. LIMITATIONS: None. FINDINGS: LUNGS AND PLEURA: Improved aeration. No focal infiltrates, masses or pneumothorax. No pl eural effusion. MEDIASTINUM AND HILAR STRUCTURES: No masses. Contour normal. HEART AND VASCULAR STRUCTURES: Heart enlarged without failure. Normal vasculature. BONES: No acute findings. Chronic changes in the shoulders. HARDWARE: Central line. OTHER: No other significant finding. IMPRESSION: STABLE CARDIOMEGALY. NO ACUTE RADIOGRAPHIC FINDING IN THE CHEST. TECHNICAL DOCUMENTATION: JOB ID: [id number] [employer]- All Rights Reserved
[2017-07-26 09:26] LABS: HEMATOCRIT 35.1 % (36.0-47.0); HEMOGLOBIN 11.6 g/dL (12.0-15.5); MEAN CORPUSCULAR HEMOGLOBIN 28.9 pg (27.0-33.4); MEAN CORPUSCULAR HGB CONC 33.1 g/dL (32.0-36.0); MEAN CORPUSCULAR VOLUME 87 fl (80-97); PLATELET COUNT 196 10^3/uL (150-450); RED BLOOD COUNT 4.02 10^6/uL (3.72-5.28); RED CELL DISTRIBUTION WIDTH 15.2 % (11.5-14.0); WHITE BLOOD COUNT 8.6 10^3/uL (4.0-10.5)
[2017-07-26 10:11] LABS: ABSOLUTE LYMPHOCYTES# (MANUAL) 1.5 10^3/uL (0.5-4.7); ABSOLUTE MONOCYTES # (MANUAL) 0.3 10^3/uL (0.1-1.4); ABSOLUTE NEUTROPHILS# (MANUAL) 6.6 10^3/uL (1.7-8.2); BAND NEUTROPHILS % (MANUAL) 2 % (3-5); BASOPHILS % (MANUAL) 0 % (0-2); EOSINOPHILS % (MANUAL) 1 % (0-6); LYMPHOCYTES % (MANUAL) 14 % (13-45); METAMYELOCYTES % (MANUAL) 1 % (0); MONOCYTES % (MANUAL) 4 % (3-13); SEGMENTED NEUTROPHILS % (MAN) 74 % (42-78); TOTAL CELLS COUNTED 100
[2017-07-26 10:12] LABS: ANISOCYTOSIS SLIGHT; PLATELET COMMENT ADEQUATE; ROULEAUX SLIGHT
[2017-07-26] MEDS: ENOXAPARIN SODIUM INJ 40 MG/0.4 ML DISP.SYRIN SUBCUT SCH (11:20)
[2017-07-26] MEDS: POLYETHYLENE GLYCOL 3350 POWDER 17 GM/1 PACKET PO SCH ×2 (11:21→17:30)
[2017-07-26] MEDS: LACTULOSE SYRUP 20 GM/30 ML UDCUP PO SCH ×2 (11:21→17:30)
[2017-07-26] MEDS: DULOXETINE HCL 30 MG CAPSULE.DR PO SCH (11:21)
[2017-07-26] MEDS: ASPIRIN 81 MG TABLET, CHEWABLE PO SCH (11:22)
[2017-07-26] MEDS: DOCUSATE SODIUM 100 MG CAPSULE PO SCH (11:22)
[2017-07-26] MEDS: FERROUS SULFATE 325 MG TABLET PO SCH ×2 (11:22→17:30)
[2017-07-26] MEDS: RANOLAZINE 500 MG TAB.SR.12H PO SCH (11:23)
[2017-07-26] MEDS: SIMETHICONE 80 MG TAB.CHEW PO PRN (11:23)
[2017-07-26] MEDS: GUAIFENESIN 600 MG TABLET.SA PO SCH (11:26)
[2017-07-26] MEDS: TAMSULOSIN HCL 0.4 MG CAP.SR.24H PO SCH (11:26)
[2017-07-26] MEDS: FUROSEMIDE 20 MG TABLET PO SCH (11:26)
[2017-07-26] MEDS: DILTIAZEM HCL 240 MG CAPSULE.CR PO SCH (11:26)
[2017-07-26] MEDS: BUSPIRONE HCL 10 MG TABLET PO SCH (11:27)
[2017-07-26] MEDS: PREDNISONE 10 MG TABLET PO SCH (11:27)
[2017-07-26] MEDS: PREGABALIN 75 MG CAPSULE PO SCH (11:27)
[2017-07-26] MEDS: OXYCODONE-ACETAMINOPHEN 5-325 MG TABLET PO PRN (11:28)
[2017-07-26] MEDS: TIOTROPIUM BROMIDE DPI 5 CAP/KIT (18 MCG/CAP) IH SCH (11:29)
[2017-07-26] MEDS: LIDOCAINE 2% VISCOUS SOLN 20 ML UDCUP PO SCH ×2 (11:29→16:35)
[2017-07-26] MEDS: LIDOCAINE 5% (700 MG) TRANSDERMAL ADH..PATCH TP SCH (11:30)
[2017-07-26] MEDS: FLUTICASONE/SALMETEROL DISKUS 500-50 MCG/DOSE IH SCH (11:31)
[2017-07-26] MEDS: INSULIN DETEMIR 100 UNIT/ML 3 ML PEN SUBCUT SCH (11:32)
[2017-07-26] MEDS: METOPROLOL SUCCINATE 50 MG TAB.SR.24H PO SCH (11:35)
[2017-07-26] MEDS: NA PHOS,M-B/NA PHOS,DI-BA (ADULT) 133 ML ENEMA PR SCH (11:37)
[2017-07-26] MEDS: METHYL SALICYLATE/MENTHOL BALM 29 GM TP SCH ×2 (11:38→17:38)
--- NOTE | 2017-07-26 14:08 | PDOC DISCHARGE SUMMARY ---
General - Admit/Disc Date/PCP Admission Date/Primary Care Provider: 07/15/17 11:29 Discharge Date: 07/26/17 - Discharge Diagnosis (1) Septic shock Is this a current diagnosis for this admission?: Yes (2) ARF (acute renal failure) Is this a current diagnosis for this admission?: Yes (3) Acute and chronic respiratory failure Is this a current diagnosis for this admission?: Yes (4) Adrenal insufficiency Is this a current diagnosis for this admission?: Yes (5) Anemia Is this a current diagnosis for this admission?: Yes (6) Functional quadriplegia Is this a current diagnosis for this admission?: Yes (7) Sleep apnea Is this a current diagnosis for this admission?: Yes (8) COR (chronic cor pulmonale) Is this a current diagnosis for this admission?: Yes (9) COPD exacerbation Is this a current diagnosis for this admission?: Yes (10) HTN (hypertension) Is this a current diagnosis for this admission?: Yes (11) Chronic headache Is this a current diagnosis for this admission?: Yes (12) Chronic pain Is this a current diagnosis for this admission?: Yes (13) Oral thrush Is this a current diagnosis for this admission?: Yes (14) Constipation Is this a current diagnosis for this admission?: Yes (15) Leukocytosis Is this a current diagnosis for this admission?: Yes (16) Multifocal atrial tachycardia Is this a current diagnosis for this admission?: Yes (17) UTI due to extended-spectrum beta lactamase (ESBL) producing Escherichia coli Is this a current diagnosis for this admission?: Yes - Additional Information Resuscitation Status: Do Not Resuscitate Prescriptions: Roflumilast [Daliresp 500 mcg Tablet] 500 mcg PO DAILY #30 tablet Home Medications: Acetaminophen [Tylenol 325 mg Tablet] 650 mg PO Q4HP PRN 07/16/17 Albuterol Sulfate [Proair HFA Inhalation Aerosol 8.5 gm MDI] 2 puff IH Q6HP PRN 07/16/17 Ascorbic Acid [Vitamin C 500 mg Tablet] 500 mg PO BID 07/16/17 Aspirin [Aspirin 81 mg Chewable Tablet] 81 mg PO DAILY 07/16/17 Baclofen [Baclofen 10 mg Tablet] 10 mg PO Q8HP PRN 07/16/17 Benzocaine/Menthol [Chloraseptic Sore Throat Lozenge] 1 lozenge MM Q1HP PRN 01/ 16/18 Benzonatate [Tessalon Perles 100 mg Capsule] 200 mg PO Q8HP PRN 07/16/17 Biotin [Biotin 1 mg Tablet] 1 mg PO DAILY PRN 07/16/17 Budesonide [Pulmicort 180 mcg Flexhaler] 2 puff IH Q12 07/16/17 Buspirone HCl [Buspar 5 mg Tablet] 5 mg PO Q12 07/16/17 Butalb/Acetaminophen/Caffeine [Fioricet (50-325-40 mg) Tablet] 2 tab PO Q6HP PRN MDD 6 TABS 07/16/17 Carboxymethylcellulose Sodium [Refresh Plus 0.5% Oph Soln 0.4 ml Droperette] 1 drop OU QIDP PRN 07/16/17 Docusate Sodium [Colace 100 mg Capsule] 100 mg PO BID 07/16/17 Duloxetine HCl [Cymbalta] 90 mg PO DAILY 07/16/17 Ergocalciferol (Vitamin D2) [Drisdol 50,000 unit (1.25MG) Capsule] 50,000 unit PO MO@1000 07/16/17 Fentanyl [Duragesic 25 mcg/hr Transdermal Patch] 1 each TD Q3D 07/16/17 Ferrous Sulfate [Feosol 325 mg Tablet] 325 mg PO BID 07/16/17 Fluticasone Propionate [Flonase Nasal Prue 50 Mcg/Prue 16 gm] 2 sprays NASL DAILY 07/16/17 Furosemide [Lasix 20 mg Tablet] 20 mg PO QPM 07/16/17 Furosemide [Lasix 40 mg Tablet] 40 mg PO QAM 07/16/17 Insulin Detemir [Levemir Flextouch] 30 unit SQ DAILY 07/16/17 Insulin Lispro [Humalog Insulin (Lispro) 100 unit/mL] 0 unit SUBCUT .SLD SCALE 07/16/17 Ipratropium/Albuterol Sulfate [Duoneb 3 ml Ampul] 3 ml NEB [id number] 07/16/17 Lactulose [Enulose 10 gm/15 mL Oral Solution] 10 gm PO BIDP PRN 07/16/17 Levalbuterol HCl [Xopenex Neb 0.63 mg/3 ml Ampul] 0.63 mg NEB RTQ8 07/16/17 Lidocaine [Lidoderm 5% (700 mg) Transdermal Patch] 3 patch TP DAILY 07/16/17 Linaclotide [Linzess 145 Mcg Capsule] 145 mcg PO DAILY 07/16/17 Loratadine [Claritin 10 mg Tablet] 10 mg PO DAILY 07/16/17 Magnesium Hydroxide [Milk of Magnesia 30 ml Udcup] 30 ml PO DAILYP PRN 07/16/17 Melatonin/Pyridoxine [Melatonin 5 mg Tablet] 10 mg PO QHS 07/16/17 Menthol [Biofreeze] 1 applic TP PRN PRN 07/16/17 Nitroglycerin [Nitrostat 0.4 mg (1/150 Gr) Tabs 25/Bottle] 1 tab SL Q5MP PRN Omeprazole 20 mg PO Q6AM 07/16/17 Oxycodone HCl [Oxy-Ir 5 mg Tablet] 10 mg PO Q6 07/16/17 Polyethylene Glycol 3350 [Miralax Powder 17 gm/Packet] 1 packet PO DAILY Potassium Chloride [Klor-Con 10 Meq Tablet.sa] 40 meq PO DAILY 07/16/17 Pregabalin [Lyrica 75 mg Capsule] 150 mg PO Q8 07/16/17 Promethazine HCl [Phenergan 25 mg Tablet] 25 mg PO Q6HP PRN 07/16/17 Ranitidine HCl [Zantac 150 mg Tablet] 150 mg PO BID 07/16/17 Ranolazine [Ranexa 500 mg Tab.sr] 500 mg PO Q12 07/16/17 Sennosides/Docusate 8.6-50 mg [Senna Plus Tablet] 1 tab PO QHS 07/16/17 Acetylcysteine [Mucomist 10% Neb 400 mg/4 mL Vial] 400 mg NEB RTQ6 vial.neb Fluticasone/Salmeterol [Advair 500-50 Diskus 14 Dose/Diskus] 1 inh IH Q12 inhaler 07/26/17 Hydralazine HCl [Apresoline 25 mg Tablet] 25 mg PO Q8 tablet 07/26/17 Metoprolol Succinate [Toprol Xl 50 mg Tab.sr] 50 mg PO DAILY tab.sr.24h Prednisone [Deltasone 10 mg Tablet] 10 mg PO DAILY tablet 07/26/17 Roflumilast [Daliresp 500 mcg Tablet] 500 mcg PO DAILY #30 tablet 07/26/17 Tamsulosin HCl [Flomax 0.4 mg Cap.sr] 0.4 mg PO DAILY cap.sr.24h 07/26/17 Tiotropium Mora [Spiriva Handihaler 5 Cap/Kit (18 Mcg/Cap)] 1 cap IH DAILY kit 07/26/17 History of Present Illness History of Present Illness: PORSHA WALDRON is a 72 year old female was transferred from [place] since patient has been having fever and cough. Patient stated that since she was recently discharged from this facility she had not been doing well. She had been getting cough, chest pain and shortness of breath. Patient reported that she is DO NOT RESUSCITATE. She has been getting more and more ready with the idea that she will . On arrival to emergency room patient was hypotensive. Required insertion of is right IJ. Was administered 3 L of normal saline and was placed on levophed. MAP at the time of consulting was 60. Due to presentation of multiple comorbidities the hospitalist service was consulted and prompted to admit for further management. Patient is on steroids chronically due to severe COPD. Hospital Course Hospital Course: Patient was initially admitted to ICU. She responded to fluid resuscitation and low-dose Levophed. She was wean off within 24 hours of being admitted to intensive care unit. She developed multifocal atrial tachycardia and we added Toprol XL. Since persisting consulted cardiology and added Cardizem to her regimen. Patient grew higher than 100,000 units of ESBL E. coli. She received a full course of 10 days of meropenem. Patient was treated also for an acute exacerbation of COPD with further improvement of pulmonary status. Patient also was treated for underlying cor pulmonale and chronic diastolic dysfunction. Recommend incoming facility to monitor patient's weight closely. At the time of discharge edema of lower extremities had resolved completely. It would be espinosa to monitor her leg swelling as an indicator of worsening of pulmonary and cardiac status since patient is basically bedbound. Patient's overall medical condition has been reasonably stabilized and since she had achieved maximum benefit of hospitalization stay prompted to discharge under stable condition. Physical Exam Vital Signs: Temp Pulse Resp BP Pulse Ox 98.6 F 82 16 162/65 H 97 07/26/17 11:15 07/26/17 13:18 07/26/17 13:18 07/26/17 11:15 07/26/17 13:18 Intake & Output 07/25/17 07/26/17 07/27/17 06:59 06:59 06:59 Intake Total 1210 919 0 Output Total 1750 800 Balance -540 119 0 Weight 103.9 kg 91 kg General appearance: PRESENT: no acute distress, cooperative, obese Head exam: PRESENT: atraumatic, normocephalic Eye exam: PRESENT: conjunctiva pink, EOMI, PERRLA Ear exam: PRESENT: normal external ear exam Mouth exam: PRESENT: moist, neck supple Neck exam: PRESENT: full ROM. ABSENT: JVD, tenderness Respiratory exam: PRESENT: clear to auscultation elia Cardiovascular exam: PRESENT: RRR. ABSENT: diastolic murmur, systolic murmur Vascular exam: PRESENT: normal capillary refill GI/Abdominal exam: PRESENT: normal bowel sounds, soft. ABSENT: tenderness Extremities exam: ABSENT: pedal edema, tenderness Musculoskeletal exam: PRESENT: deformity. ABSENT: ambulatory Neurological exam: PRESENT: alert, awake, oriented to person, oriented to place , oriented to time, oriented to situation Psychiatric exam: PRESENT: depressed Skin exam: PRESENT: intact, normal color Results Laboratory Results: 07/26/17 09:00 07/25/17 05:30 07/26/17 07/26/17 06:00 09:00 WBC 8.1 8.6 RBC 3.91 4.02 Hgb 11.4 L 11.6 L Hct 33.9 L 35.1 L MCV 87 87 MCH 29.3 28.9 MCHC 33.7 33.1 RDW 15.1 H 15.2 H Plt Count 193 196 Seg Neutrophils % Not Reportable Lymphocytes % Not Reportable Monocytes % Not Reportable Eosinophils % Not Reportable Basophils % Not Reportable Absolute Neutrophils Not Reportable Absolute Lymphocytes Not Reportable Absolute Monocytes Not Reportable Absolute Eosinophils Not Reportable Absolute Basophils Not Reportable 07/16/17 07/18/17 07/18/17 11:35 13:20 18:55 Troponin I 0.016 0.027 NT-Pro-B Natriuret Pep 710 07/18/17 23:00 Troponin I 0.026 NT-Pro-B Natriuret Pep Impressions: Chest X-Ray 07/25/17 07:00 IMPRESSION: STABLE CARDIOMEGALY. NO ACUTE RADIOGRAPHIC FINDING IN THE CHEST. Plan Discharge Plan: Discharge to SNF Time Spent: Less than 30 Minutes
[2017-07-26] MEDS: ROFLUMILAST 500 MCG TABLET PO SCH (14:32)
[2017-07-26 17:32] VITALS: BP 115/51
== END 2017-07-26 17:41 | DRG 871 ==
LOC: ER 05:35 → EH 11:29 → ICU 18:20 → 3S 07-18 16:35
PROVIDERS: ADMIT Emergency Medicine; ATTEND Emergency Medicine
PROC: 02HV33Z Insertion of Infusion Device into Superior Vena Cava, Percutaneous Approach (ICD-10-PCS; principal; 2017-07-15)
PROC: B548ZZA Ultrasonography of Superior Vena Cava, Guidance (ICD-10-PCS; 2017-07-15)
DX: A41.9 Sepsis, unspecified organism (principal); R53.2 Functional quadriplegia; J96.21 Acute and chronic respiratory failure with hypoxia; N17.9 Acute kidney failure, unspecified; E27.40 Unspecified adrenocortical insufficiency; J44.1 Chronic obstructive pulmonary disease with (acute) exacerbation; N39.0 Urinary tract infection, site not specified; B37.0 Candidal stomatitis; I50.30 Unspecified diastolic (congestive) heart failure; I27.81 Cor pulmonale (chronic); Z16.12 Extended spectrum beta lactamase (ESBL) resistance; I11.0 Hypertensive heart disease with heart failure; R51 Headache; K59.00 Constipation, unspecified; G89.29 Other chronic pain; I48.91 Unspecified atrial fibrillation; Z66 Do not resuscitate; Z74.01 Bed confinement status; R00.0 Tachycardia, unspecified; D50.8 Other iron deficiency anemias; G47.33 Obstructive sleep apnea (adult) (pediatric); E78.5 Hyperlipidemia, unspecified; I73.9 Peripheral vascular disease, unspecified; E11.9 Type 2 diabetes mellitus without complications; K21.9 Gastro-esophageal reflux disease without esophagitis; K44.9 Diaphragmatic hernia without obstruction or gangrene; M19.90 Unspecified osteoarthritis, unspecified site; M79.7 Fibromyalgia; M10.9 Gout, unspecified; F32.9 Major depressive disorder, single episode, unspecified; Z79.4 Long term (current) use of insulin; Z79.82 Long term (current) use of aspirin; Z79.899 Other long term (current) drug therapy; Z86.14 Personal history of Methicillin resistant Staphylococcus aureus infection; I25.2 Old myocardial infarction; Z86.711 Personal history of pulmonary embolism; Z86.718 Personal history of other venous thrombosis and embolism; Z90.49 Acquired absence of other specified parts of digestive tract; Z90.710 Acquired absence of both cervix and uterus; Z88.2 Allergy status to sulfonamides; Z88.8 Allergy status to other drugs, medicaments and biological substances
CPT/HCPCS: 36415; 71045; 80048; 80053; 80202; 81001; 82272; 82550; 82565; 82803; 82962; 83605; 83690; 83735; 83880; 84100; 84484; 85025; 85027; 87040; 87086; 87088; 87186; 87804; 93005; 93010; 94640; 94660; 96361; 96365; 96367; 96375; 99285; C1751; G8978-GP; G8979-GP; G8987-GO; G8988-GO; J0743; J1160; J1644; J1650; J1815; J1885; J1940; J2185; J2405; J2920; J3010; J3370; J3490; J7030; J7060; J7512; J7620

== ENCOUNTER 2017-08-03 12:34 | Inpatient (IN) | payer MEDICARE, MEDICAID ==
--- NOTE | 2017-08-03 13:30 | ER Document Report ---
ED Respiratory Problem - General Chief Complaint: Shortness Of Breath Stated Complaint: SHORTNESS OF BREATH Time Seen by Provider: 08/03/17 12:39 Information source: Patient Notes: 72-year-old female with past medical history of congestive heart failure, atrial fibrillation, and COPD on 2 L baseline oxygen who presents today with 3 days of worsening congestion and cough. She states some subjective fevers. She denies any chest pain. She denies any increased leg swelling. She denies any nausea, vomiting, sore throat, headache, or abdominal pain. Patient states he was discharged last Saturday secondary to a prolonged stay secondary to sepsis. TRAVEL OUTSIDE OF THE [place] IN LAST 30 DAYS: No - HPI Patient complains to provider of: Cough, Short of breath Onset: Other - see above Initiating Event: Other - See above Quality of pain: Other - See above Severity: Mild Pain Level: 2 Context: Other - See above Short of Breath: Mild Cough: Productive Sputum amount: None Sputum color: White Associated symptoms: Other - See above Similar symptoms previously: No Recently seen / treated by doctor: No - Related Data Allergies/Adverse Reactions: Sulfa (Sulfonamide Antibiotics) Allergy (Intermediate, Verified 06/26/17 12:49) adhesive tape Allergy (Verified 06/26/17 12:49) atorvastatin calcium [From Lipitor] Allergy (Verified 06/26/17 12:49) celecoxib [From Celebrex] Allergy (Verified 06/26/17 12:49) Past Medical History - General Information source: Patient - Social History Smoking Status: Former Smoker Cigarette use (# per day): No Chew tobacco use (# tins/day): No Smoking Education Provided: No Frequency of alcohol use: None Drug Abuse: None Family History: Arthritis, CAD, CVA, DM, Hypertension - Past Medical History Cardiac Medical History: Reports: Hx Atrial Fibrillation, Hx Congestive Heart Failure - Diastolic dysfunction, Hx Heart Attack, Hx Hypertension - essential, Hx Pulmonary Embolism, Hx Heart Murmur Denies: Hx Coronary Artery Disease, Hx DVT, Hx Hypercholesterolemia, Hx Peripheral Vascular Disease Pulmonary Medical History: Reports: Hx Asthma, Hx Bronchitis, Hx COPD, Hx Pneumonia - Recurrent MRSA pneumonia., Hx Sleep Apnea - Uses C Pap Denies: Hx Tuberculosis Neurological Medical History: Denies: Hx Seizures Endocrine Medical History: Reports: Hx Diabetes Mellitus Type 2. Denies: Hx Diabetes Mellitus Type 1, Hx Hyperthyroidism, Hx Hypothyroidism Renal/ Medical History: Reports: Hx Renal Insufficiency. Denies: Hx Peritoneal Dialysis GI Medical History: Reports: Hx Gastroesophageal Reflux Disease, Hx Hiatal Hernia. Denies: Hx Cirrhosis, Hx Hepatitis Musculoskeltal Medical History: Reports Hx Arthritis, Reports Hx Fibromyalgia, Reports Hx Gout, Reports Hx Muscle Weakness Skin Medical History: Denies Hx Eczema, Denies Hx Psoriasis Psychiatric Medical History: Reports: Hx Anxiety, Hx Depression Infectious Medical History: Reports: Hx MRSA. Denies: Hx Hepatitis Past Surgical History: Reports: Hx Appendectomy, Hx Cholecystectomy, Hx Hysterectomy, Hx Orthopedic Surgery - Multiple left hip procedures, 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 - Immunizations Hx Diphtheria, Pertussis, Tetanus Vaccination: Yes Hx Pneumococcal Vaccination: 05/20/13 Review of Systems - Review of Systems Constitutional: denies: Fever EENT: denies: Eye discharge, Nose discharge, Sinus discharge, Throat pain Cardiovascular: denies: Chest pain, Palpitations Respiratory: Short of breath. denies: Hurts to breathe, Hemoptysis Gastrointestinal: denies: Vomiting Genitourinary: denies: Dysuria Musculoskeletal: denies: Leg swelling Skin: Other - no hives. denies: Rash Neurological/Psychological: Other - no slurred speech -: Yes All other systems reviewed and negative Physical Exam - Vital signs Vitals: Resp 18 08/03/17 12:39 Notes: Reviewed vital signs and nursing note as charted by RN. CONSTITUTIONAL: Alert and oriented and responds appropriately to questions. Well -appearing; well-nourished HEAD: Normocephalic; atraumatic EYES: PERRL; Conjunctivae clear, sclerae non-icteric ENT: Normal nose; minimal bilateral nasal rhinorrhea; moist mucous membranes; pharynx without lesions noted NECK: Supple without meningismus; non-tender; no cervical lymphadenopathy, no masses CARD: Tachycardic and irregular; no murmurs, no clicks, no rubs, no gallops; symmetric distal pulses RESP: Normal chest excursion without splinting; breath sounds clear and equal bilaterally; patient has some end expiratory wheezing and scattered rhonchi ABD/GI: Normal bowel sounds; non-distended; soft, non-tender BACK: The back appears normal and is non-tender to palpation, there is no CVA tenderness EXT: Normal ROM in all joints; non-tender to palpation; bruising to bilateral lower extremities which she states is chronic; no obvious pitting edema present ; no calf pain SKIN: See above NEURO: Moves all extremities equally; Motor and sensory function intact PSYCH: The patient's mood and manner are appropriate. Grooming and personal hygiene are appropriate. Course - Re-evaluation Re-evalutation: 08/03/17 13:29 Given the history and physical examination we ordered a stat x-ray of the chest , EKG, place the patient on the monitor, obtain basic and cardiac labs, BNP, and will reassess. I currently believe given the constellation of symptoms without chest pain that the patient has a low pretest probability for pulmonary embolism or aortic dissection. 08/03/17 14:14 EKG shows a heart of 155, possibly a supraventricular tachycardia with an incomplete left bundle branch block. LVH is present. Patient does have a history of atrial fibrillation. Patient does have a previous history of an incomplete left bundle branch block. The rhythm is not irregular and it does not appear to be increased widening compared to previous EKGs. Given the history of atrial fibrillation I will provide a 10 mg bolus of diltiazem as well as a diltiazem drip. 08/03/17 14:21 X-ray of the chest shows cardiomegaly with no obvious infiltrates and no obvious increased lung markings. 08/03/17 15:04 Initial laboratory values as recorded. Diltiazem has taken the patient out of the rapid rhythm. The rhythm does look irregular. Repeat EKG has been ordered. Given the cardiac dysrhythmias upon arrival, albuterol/Atrovent was held. Steroids have been provided. 08/03/17 15:10 Repeat EKG shows heart rate of 75, PACs present, most P waves look very similar. Incomplete left bundle branch block is present. Given the above history, physical, wheezing, shortness of breath, intermittent cardiac dysrhythmias, patient will be admitted to the hospitalist for further evaluation. - Vital Signs Vital signs: Temp Pulse Resp BP Pulse Ox 17 139/76 H 98 08/03/17 14:01 08/03/17 14:01 08/03/17 14:01 - Laboratory Result Diagrams: 08/03/17 12:51 08/03/17 12:51 Laboratory results interpreted by me: 08/03/17 08/03/17 08/03/17 12:51 12:51 12:51 Hgb 11.2 L Hct 33.9 L RDW 15.8 H Seg Neuts % (Manual) 89 H Lymphocytes % (Manual) 5 L Monocytes % (Manual) 2 L BUN 25 H Est GFR ( Amer) 58 L Est GFR (Non-Af Amer) 48 L Glucose 239 H NT-Pro-B Natriuret Pep 1800 H Critical Care Note - Critical Care Note Total time excluding time spent on procedures (mins): 40 Discharge - Discharge Clinical Impression: Shortness of breath, Wheezing Cardiac dysrhythmia Qualifiers: Arrhythmia type: unspecified cardiac arrhythmia Qualified Code(s): I49.9 - Cardiac arrhythmia, unspecified Condition: Fair Disposition: ADMITTED INPATIENT Admitting Provider: Hospitalist Unit Admitted: Telemetry
[2017-08-03 13:39] LABS: HEMATOCRIT 33.9 % (36.0-47.0); HEMOGLOBIN 11.2 g/dL (12.0-15.5); MEAN CORPUSCULAR HGB CONC 33.1 g/dL (32.0-36.0); MEAN CORPUSCULAR VOLUME 88 fl (80-97); PLATELET COUNT 191 10^3/uL (150-450); RED BLOOD COUNT 3.87 10^6/uL (3.72-5.28); RED CELL DISTRIBUTION WIDTH 15.8 % (11.5-14.0); WHITE BLOOD COUNT 7.4 10^3/uL (4.0-10.5)
[2017-08-03 13:44] LABS: ANION GAP 10 (5-19); BLOOD UREA NITROGEN 25 mg/dL (7-20); CALCIUM 9.4 mg/dL (8.4-10.2); CARBON DIOXIDE 25 mmol/L (22-30); CHLORIDE 106 mmol/L (98-107); GLUCOSE 239 mg/dL (75-110); POTASSIUM 4.5 mmol/L (3.6-5.0); SODIUM 140.8 mmol/L (137-145)
--- NOTE | 2017-08-03 13:49 | RADIOLOGY REPORT (SQ) ---
EXAM DESCRIPTION: CHEST PA/LAT COMPLETED DATE/TIME: 08/03/2017 1:22 pm REASON FOR STUDY: sob COMPARISON: 07/29/2016 NUMBER OF VIEWS: Two view TECHNIQUE: Frontal and lateral radiographic images of the chest acquired. LIMITATIONS: None. FINDINGS: LUNGS AND PLEURA: Stable areas scarring in the lingula. No evidence of pneumonia. MEDIASTINUM AND HILAR STRUCTURES: Stable heart size and mediastinal structures. HEART AND VASCULAR STRUCTURES: Stable appearance. BONES: No acute findings. HARDWARE: None in the chest. OTHER: No other significant finding. IMPRESSION: Cardiomegaly. No acute findings. TECHNICAL DOCUMENTATION: JOB ID: [id number] [employer]- All Rights Reserved
[2017-08-03 13:56] LABS: NT PRO BNP 1800 pg/mL (5-900)
[2017-08-03 13:58] LABS: TROPONIN I < 0.012 ng/mL
[2017-08-03 14:00] LABS: ABSOLUTE LYMPHOCYTES# (MANUAL) 0.6 10^3/uL (0.5-4.7); ABSOLUTE MONOCYTES # (MANUAL) 0.1 10^3/uL (0.1-1.4); ABSOLUTE NEUTROPHILS# (MANUAL) 6.6 10^3/uL (1.7-8.2); BASOPHILS % (MANUAL) 1 % (0-2); EOSINOPHILS % (MANUAL) 0 % (0-6); LYMPHOCYTES % (MANUAL) 5 % (13-45); MONOCYTES % (MANUAL) 2 % (3-13); SEGMENTED NEUTROPHILS % (MAN) 89 % (42-78); TOTAL CELLS COUNTED 100
[2017-08-03 14:01] LABS: ANISOCYTOSIS SLIGHT; HYPOCHROMASIA SLIGHT; PLATELET COMMENT ADEQUATE
[2017-08-03 14:04] LABS: A TYPE INFLUENZA AG NEGATIVE (NEGATIVE); B INFLUENZA AG NEGATIVE (NEGATIVE)
[2017-08-03] MEDS ORDERED: DILTIAZEM HCL INJ 25 MG/5 ML VIAL IV ONE (14:20)
[2017-08-03] MEDS ORDERED: MAGNESIUM SULFATE/D5W 1 GM/100 ML RTUPB IV ONE (14:20)
[2017-08-03] MEDS ORDERED: OXYCODONE-ACETAMINOPHEN 5-325 MG TABLET PO ONE (14:32)
[2017-08-03 14:45] LABS: MAGNESIUM 2.1 mg/dL (1.6-2.3)
[2017-08-03] MEDS ORDERED: METHYLPREDNISOLONE INJ 125 MG/2 ML SDV IV ONE (15:04)
[2017-08-03] MEDS ORDERED: IPRATROPIUM/ALBUTEROL 0.5-2.5 MG/3 ML AMPUL NEB SCH (15:15)
[2017-08-03] MEDS ORDERED: LEVALBUTEROL HCL NEB 1.25 MG/3 ML AMPUL NEB ONE (15:18)
[2017-08-03] MEDS ORDERED: MAG HYDROX/AL HYDROX/SIMETH SUSP 30 ML UDCUP PO PRN (16:13)
[2017-08-03] MEDS ORDERED: MAGNESIUM HYDROXIDE SUSP 30 ML UDCUP PO PRN (16:13)
[2017-08-03] MEDS ORDERED: ONDANSETRON HCL INJ/PF 4 MG/2 ML SDV IV PRN (16:13)
[2017-08-03] MEDS ORDERED: CARBOXYMETHYLCELLULOSE SOD 0.5% 0.4 ML DROPERETTE OU PRN (16:22)
[2017-08-03] MEDS ORDERED: GLUCAGON,HUMAN RECOMB 1 MG INJ IM PRN (16:25)
[2017-08-03] MEDS ORDERED: DEXTROSE 50%-WATER 25 GM/50 ML DISP.SYRIN IV PRN ×2 (16:25)
[2017-08-03] MEDS ORDERED: DEXTROSE 40% GEL 15 GM TUBE PO PRN ×2 (16:25)
[2017-08-03] MEDS ORDERED: HYDRALAZINE HCL INJ/PF 20 MG/1 ML SDV IV PRN (16:44)
--- NOTE | 2017-08-03 16:49 | PDOC H&P ---
History of Present Illness Admission Date/PCP: 08/03/17 15:25 Patient complains of: Dyspnea History of Present Illness: PORSHA WALDRON is a 72 year old female with a past medical history of COPD, ROSETTA, CHF, hypertension, hyperlipidemia, chronic kidney disease stage III, atrial fibrillation, AL, DVT, hypothyroidism, GERD, depression, functional paraplegia, and morbid obesity who presents to the emergency department today with a complaint of dyspnea 3 days. The patient states that she was recently discharged from our facility on a prednisone taper and she felt fine during this time but the day following completion of the prednisone she had a sudden increase in dyspnea at rest and a productive cough. The patient also complains of palpitations, "I feel like my heart is in my throat." She denies fever, chills, myalgia, chest pain, orthopnea, and leg edema. Evaluation in the emergency department reveals mild anemia with a hemoglobin of 11.2 which is the patient's baseline, mild dehydration, and elevated proBNP to 1800, and a chest x-ray demonstrating cardiomegaly only with no acute findings. She is noted to have a heart rate of 155. She was provided a diltiazem bolus with appropriate heart rate response to 75. An EKG was obtained at that time capturing normal sinus rhythm with multiple premature atrial complexes and a incomplete left bundle branch block. At the time of my assessment, the patient' s heart rate had returned to the 150s. She is referred to the hospitalist service for admission. Past Medical History Cardiac Medical History: Reports: Atrial Fibrillation, Congestive Heart Failure - Diastolic dysfunction, Myocardial Infarction, Hypertension - essential, Pulmonary Embolism, Heart Murmur Denies: Coronary Artery Disease, DVT, Hyperlipidema, Peripheral Vascular Disease Pulmonary Medical History: Reports: Asthma, Bronchitis, Chronic Obstructive Pulmonary Disease (COPD), Pneumonia - Recurrent MRSA pneumonia., Sleep Apnea - Uses C Pap Denies: Tuberculosis EENT Medical History: Reports: None Neurological Medical History: Reports: Other - TIA Denies: Seizures Endocrine Medical History: Reports: Diabetes Mellitus Type 2 Denies: Diabetes Mellitus Type 1, Hyperthyroidism, Hypothyroidism Renal/ Medical History: Reports: Chronic Kidney Disease Malignancy Medical History: Reports: None GI Medical History: Reports: Gastroesophageal Reflux Disease, Hiatal Hernia Denies: Cirrhosis, Hepatitis Musculoskeltal Medical History: Reports: Arthritis, Fibromyalgia, Gout Skin Medical History: Denies: Eczema, Psoriasis Psychiatric Medical History: Reports: Depression Hematology: Reports: Anemia Infectious Medical History: Reports: Methicillin-Resistant Staph Aureus, Other Past Surgical History Past Surgical History: Reports: Appendectomy, Cholecystectomy, Hysterectomy, Orthopedic Surgery - Multiple left hip procedures, 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 Social History Information Source: Patient Lives with: Custodial Smoking Status: Former Smoker Frequency of Alcohol Use: None Hx Recreational Drug Use: No Drugs: None Hx Prescription Drug Abuse: No - Advance Directive Resuscitation Status: Do Not Resuscitate Family History Family History: Arthritis, CAD, CVA, DM, Hyperlipidemia, Hypertension Parental Family History Reviewed: Yes Children Family History Reviewed: Yes Sibling(s) Family History Reviewed.: Yes Medication/Allergy Home Medications: Acetaminophen [Tylenol 325 mg Tablet] 650 mg PO Q4HP PRN 07/16/17 Albuterol Sulfate [Proair HFA Inhalation Aerosol 8.5 gm MDI] 2 puff IH Q6HP PRN 07/16/17 Ascorbic Acid [Vitamin C 500 mg Tablet] 500 mg PO BID 07/16/17 Aspirin [Aspirin 81 mg Chewable Tablet] 81 mg PO DAILY 07/16/17 Baclofen [Baclofen 10 mg Tablet] 10 mg PO Q8HP PRN 07/16/17 Benzocaine/Menthol [Chloraseptic Sore Throat Lozenge] 1 lozenge MM Q1HP PRN Benzonatate [Tessalon Perles 100 mg Capsule] 200 mg PO Q8HP PRN 07/16/17 Biotin [Biotin 1 mg Tablet] 1 mg PO DAILY PRN 07/16/17 Budesonide [Pulmicort 180 mcg Flexhaler] 2 puff IH Q12 07/16/17 Buspirone HCl [Buspar 5 mg Tablet] 5 mg PO Q12 07/16/17 Butalb/Acetaminophen/Caffeine [Fioricet (50-325-40 mg) Tablet] 2 tab PO Q6HP PRN MDD 6 TABS 07/16/17 Carboxymethylcellulose Sodium [Refresh Plus 0.5% Oph Soln 0.4 ml Droperette] 1 drop OU QIDP PRN 07/16/17 Docusate Sodium [Colace 100 mg Capsule] 100 mg PO BID 07/16/17 Duloxetine HCl [Cymbalta] 90 mg PO DAILY 07/16/17 Ergocalciferol (Vitamin D2) [Drisdol 50,000 unit (1.25MG) Capsule] 50,000 unit PO MO@1000 07/16/17 Fentanyl [Duragesic 25 mcg/hr Transdermal Patch] 1 each TD Q3D 07/16/17 Ferrous Sulfate [Feosol 325 mg Tablet] 325 mg PO BID 07/16/17 Fluticasone Propionate [Flonase Nasal Endeavor 50 Mcg/Endeavor 16 gm] 2 sprays NASL DAILY 07/16/17 Furosemide [Lasix 20 mg Tablet] 20 mg PO QPM 07/16/17 Furosemide [Lasix 40 mg Tablet] 40 mg PO QAM 07/16/17 Insulin Detemir [Levemir Flextouch] 30 unit SQ DAILY 07/16/17 Insulin Lispro [Humalog Insulin (Lispro) 100 unit/mL] 0 unit SUBCUT .SLD SCALE 07/16/17 Ipratropium/Albuterol Sulfate [Duoneb 3 ml Ampul] 3 ml NEB [id number] 07/16/17 Lactulose [Enulose 10 gm/15 mL Oral Solution] 10 gm PO BIDP PRN 07/16/17 Levalbuterol HCl [Xopenex Neb 0.63 mg/3 ml Ampul] 0.63 mg NEB RTQ8 07/16/17 Lidocaine [Lidoderm 5% (700 mg) Transdermal Patch] 3 patch TP DAILY 07/16/17 Linaclotide [Linzess 145 Mcg Capsule] 145 mcg PO DAILY 07/16/17 Loratadine [Claritin 10 mg Tablet] 10 mg PO DAILY 07/16/17 Magnesium Hydroxide [Milk of Magnesia 30 ml Udcup] 30 ml PO DAILYP PRN 07/16/17 Melatonin/Pyridoxine [Melatonin 5 mg Tablet] 10 mg PO QHS 07/16/17 Menthol [Biofreeze] 1 applic TP PRN PRN 07/16/17 Nitroglycerin [Nitrostat 0.4 mg (1/150 Gr) Tabs 25/Bottle] 1 tab SL Q5MP PRN Omeprazole 20 mg PO Q6AM 07/16/17 Oxycodone HCl [Oxy-Ir 5 mg Tablet] 10 mg PO Q6 07/16/17 Polyethylene Glycol 3350 [Miralax Powder 17 gm/Packet] 1 packet PO DAILY Potassium Chloride [Klor-Con 10 Meq Tablet.sa] 40 meq PO DAILY 07/16/17 Pregabalin [Lyrica 75 mg Capsule] 150 mg PO Q8 07/16/17 Promethazine HCl [Phenergan 25 mg Tablet] 25 mg PO Q6HP PRN 07/16/17 Ranitidine HCl [Zantac 150 mg Tablet] 150 mg PO BID 07/16/17 Ranolazine [Ranexa 500 mg Tab.sr] 500 mg PO Q12 07/16/17 Sennosides/Docusate 8.6-50 mg [Senna Plus Tablet] 1 tab PO QHS 07/16/17 Acetylcysteine [Mucomist 10% Neb 400 mg/4 mL Vial] 400 mg NEB RTQ6 vial.neb Fluticasone/Salmeterol [Advair 500-50 Diskus 14 Dose/Diskus] 1 inh IH Q12 inhaler 07/26/17 Hydralazine HCl [Apresoline 25 mg Tablet] 25 mg PO Q8 tablet 07/26/17 Metoprolol Succinate [Toprol Xl 50 mg Tab.sr] 50 mg PO DAILY tab.sr.24h Prednisone [Deltasone 10 mg Tablet] 10 mg PO DAILY tablet 07/26/17 Roflumilast [Daliresp 500 mcg Tablet] 500 mcg PO DAILY #30 tablet 07/26/17 Tamsulosin HCl [Flomax 0.4 mg Cap.sr] 0.4 mg PO DAILY cap.sr.24h 07/26/17 Tiotropium [place] [Spiriva Handihaler 5 Cap/Kit (18 Mcg/Cap)] 1 cap IH DAILY kit 07/26/17 Allergies/Adverse Reactions: Sulfa (Sulfonamide Antibiotics) Allergy (Intermediate, Verified 06/26/17 12:49) adhesive tape Allergy (Verified 06/26/17 12:49) atorvastatin calcium [From Lipitor] Allergy (Verified 06/26/17 12:49) celecoxib [From Celebrex] Allergy (Verified 06/26/17 12:49) Review of Systems Constitutional: PRESENT: weakness. ABSENT: chills, fever(s), headache(s), weight gain, weight loss Eyes: ABSENT: visual disturbances Ears: ABSENT: hearing changes Cardiovascular: PRESENT: palpitations. ABSENT: chest pain, dyspnea on exertion , edema, orthropnea Respiratory: PRESENT: cough, dyspnea. ABSENT: hemoptysis Gastrointestinal: ABSENT: abdominal pain, constipation, diarrhea, hematemesis, hematochezia, nausea, vomiting Genitourinary: ABSENT: dysuria, hematuria Musculoskeletal: ABSENT: joint swelling Integumentary: ABSENT: rash, wounds Neurological: ABSENT: abnormal speech, confusion, dizziness, focal weakness, syncope Psychiatric: ABSENT: anxiety, depression, homidical ideation, suicidal ideation Endocrine: ABSENT: cold intolerance, heat intolerance, polydipsia, polyuria Hematologic/Lymphatic: ABSENT: easy bleeding, easy bruising Physical Exam Vital Signs: Temp Pulse Resp BP Pulse Ox 17 124/86 H 99 08/03/17 15:06 08/03/17 15:06 08/03/17 15:06 General appearance: PRESENT: mild distress, obese, well-developed, well- nourished Head exam: PRESENT: atraumatic, normocephalic Eye exam: PRESENT: conjunctiva pink, EOMI, PERRLA. ABSENT: scleral icterus Ear exam: PRESENT: normal external ear exam Mouth exam: PRESENT: moist, tongue midline Neck exam: ABSENT: carotid bruit, JVD, lymphadenopathy, thyromegaly Respiratory exam: PRESENT: prolonged expiratory phas, rhonchi, symmetrical, tachypnea, wheezes, other - Supplemental oxygen via nasal cannula. ABSENT: rales Cardiovascular exam: PRESENT: RRR, +S1, +S2, tachycardia. ABSENT: diastolic murmur, rubs, systolic murmur Pulses: PRESENT: normal dorsalis pedis pul Vascular exam: PRESENT: normal capillary refill GI/Abdominal exam: PRESENT: normal bowel sounds, soft. ABSENT: distended, guarding, mass, organolmegaly, rebound, tenderness Rectal exam: PRESENT: deferred Extremities exam: ABSENT: calf tenderness, clubbing, full ROM - Chronic right lower extremity reduced range of motion, pedal edema, +1 edema, +2 edema Neurological exam: PRESENT: alert, awake, oriented to person, oriented to place , oriented to time, oriented to situation, CN II-XII grossly intact. ABSENT: motor sensory deficit Psychiatric exam: PRESENT: appropriate affect, normal mood. ABSENT: homicidal ideation, suicidal ideation Skin exam: PRESENT: dry, intact, warm. ABSENT: cyanosis, rash Results Impressions: Chest X-Ray 08/03/17 12:39 IMPRESSION: Cardiomegaly. No acute findings. Assessment & Plan - Diagnosis (1) Acute on chronic respiratory failure Qualifiers: Respiratory failure complication: hypoxia and hypercapnia Qualified Code(s) : J96.21 - Acute and chronic respiratory failure with hypoxia Plan: The patient presents with a COPD exacerbation; tachypnea, rhonchi and wheezing throughout, and tachycardia with an increased mucopurulent cough. Her WBCs are normal, the patient reports that she has been afebrile, and chest x -ray is unrevealing for a pneumonia. Therefore will hold antibiotics at this time. She will be admitted to [facility] on continuous cardiac telemetry. 2 placed on supplemental oxygen to keep oxygen saturations greater than 88%. CPAP to be used nightly and as needed. She will receive IV Solu-Medrol. Xopenex as needed secondary to heart rate. Mucinex twice daily. Daily Singulair. We will continue her home medications; Spiriva and Flonase Once medication reconciliation is complete we will consider resuming the patient 's Mucomist, Pulmicort and Chrisp. (2) COPD exacerbation Is this a current diagnosis for this admission?: Yes Plan: As above. (3) Tachycardia Is this a current diagnosis for this admission?: Yes Plan: The patient does appear to be in a sinus tachycardia; however, she does have a strong history of atrial fibrillation with RVR. I am concerned that her heart rate is elevated to the 150s. Heart rate does respond to a diltiazem bolus. Therefore, we will start a diltiazem drip to titrate per protocols. Once medications are reconciled will resume the home medication. She will be admitted on continuous cardiac telemetry. Will obtain serial troponins and repeat proBNP in the morning. We will evaluate for PE with a CTA. (4) Gastroesophageal reflux disease Qualifiers: Esophagitis presence: without esophagitis Qualified Code(s): K21.9 - Gastro -esophageal reflux disease without esophagitis Plan: Continue PPI. (5) Heart failure Qualifiers: Heart failure type: diastolic Heart failure chronicity: chronic Qualified Code(s): I50.32 - Chronic diastolic (congestive) heart failure Plan: The patient does not appear to be volume overloaded at this time. Last echocardiogram from September 2016 mistreated a borderline normal LVEF. We will trend troponin and proBNP. Once medications were reconciled we will continue her home medication regimen. Patient is placed on a cardiac diet with daily weights. Strict I's and O's. (6) Anemia, chronic disease Is this a current diagnosis for this admission?: Yes Plan: We will continue the patient's home dose oral iron supplementation. (7) CKD (chronic kidney disease), stage III Is this a current diagnosis for this admission?: Yes Plan: We will monitor with daily chemistries. Avoid nephrotoxic medications. (8) Generalized anxiety disorder Is this a current diagnosis for this admission?: Yes Plan: We will continue the patient's home dose BuSpar twice daily. (9) Hypertension Qualifiers: Hypertension type: essential hypertension Qualified Code(s): I10 - Essential (primary) hypertension Is this a current diagnosis for this admission?: Yes Plan: The patient has been placed on a Cardizem drip. IV hydralazine is available as needed. We will resume the patient's home medications once reconciled. (10) Obstructive sleep apnea Plan: CPAP nightly. (11) Opiate dependence, continuous Is this a current diagnosis for this admission?: Yes Plan: The patient is noted to be wearing a fentanyl patch. Once home medications are reconciled we will continue her chronic pain medications. (12) Physical debility Is this a current diagnosis for this admission?: Yes Plan: Every 2 turns; supportive care. (13) Do not resuscitate Is this a current diagnosis for this admission?: Yes (14) History of pulmonary embolism Is this a current diagnosis for this admission?: Yes Plan: The patient states that she was previously on Eliquis which was discontinued secondary to hemorrhaging in her lower legs. As she does have a history of PE and is only on aspirin for preventative therapies and is bedbound at baseline presenting with tachycardia and hypoxia will obtain a CTA to rule out additional pulmonary embolus. She will be placed on heparin for DVT prophylaxis. 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 Accu-Cheks before meals and at bedtime with Humalog for sliding scale coverage. We will resume the patient's long-acting insulin once reconciled by pharmacy. - Time Time Spent: 50 to 70 Minutes Medications reviewed and adjusted accordingly: Yes - Inpatient Certification Based on my medical assessment, after consideration of the patient's comorbidities, presenting symptoms, or acuity I expect that the services needed warrant INPATIENT care.: Yes I certify that my determination is in accordance with my understanding of Medicare's requirements for reasonable and necessary INPATIENT services [42 CFR 412.3e].: Yes Medical Necessity: Failure to Improve With Outpatient Therapy, Need Close Monitoring Due to Risk of Patient Decompensation, Need For Continuous Telemetry Monitoring
[2017-08-03] MEDS ORDERED: MONTELUKAST SODIUM 10 MG TABLET PO ONE (17:00)
[2017-08-03] MEDS: INSULIN LISPRO 100 UNIT/ML 3 ML VIAL SUBCUT PRN (17:17)
--- NOTE | 2017-08-03 17:27 | RADIOLOGY REPORT (SQ) ---
EXAM DESCRIPTION: CTA CHEST COMPLETED DATE/TIME: 08/03/2017 5:08 pm REASON FOR STUDY: hypoxia, tachycardia COMPARISON: 07/14/2014 and to 318 TECHNIQUE: CT scan of the chest performed using helical scanning technique with dynamic intravenous contrast injection. Images reviewed with lung, soft tissue and bone windows. Reconstructed coronal and sagittal MPR images reviewed. Additional 3 dimensional post-processing performed to develop Maximal Intensity Projection images (TX P). All images stored on PACS. All CT scanners at this facility use dose modulation, iterative reconstruction, and/or weight based d osing when appropriate to reduce radiation dose to as low as reasonably achievable (ALARA). [facility]: Dose Right [facility]: CareDose [facility]: Dose Right [facility]: Teradose 4D [facility]: [place]inksport CONTRAST TYPE AND DOSE: contrast/concentration: Isovue 370.00 mg/ml; Total Contrast Delivered: 78.0 ml; Total Saline Delivered: 110.0 ml Contrast bolus optimized for the pulmonary arteries. Not diagnostic for the aorta. RENAL FUNCTION: BUN 25; creatinine 1.11 RADIATION DOSE: CT Rad equipment meets quality standard of care and radiation dose reduction techniq ues were employed. CTDIvol: 45.8 - 56.2 mGy. DLP: 1680 mGy-cm. . LIMITATIONS: None. FINDINGS: LUNGS AND PLEURA: Bibasilar atelectasis versus scarring. No masses, infiltrates, pneumoth orax. No pleural effusions, calcifications. AORTA AND GREAT VESSELS: No aneurysm. Contrast bolus not optimized for the aorta. HEART: Cardiomegaly. No pericardial effusion. Coronary artery calcifications are present. PULMONARY ARTERIES: No emboli visualized in the main pulmonary arteries or the segmental branches. HILAR AND MEDIASTINAL STRUCTURES: No identified masses or abnormal nodes. HARDWARE: None in the chest. UPPER ABDOMEN: Limited exam. Metallic density within the IVC may represent the tip of a caval filter . THYROID AND OTHER SOFT TISSUES: No masses. No adenopathy. BONES: No acute or significant finding. 3D MIPS: Confirm above findings. OTHER: No other significant finding. IMPRESSION: 1. No pulmonary emboli. 2. No evidence of acute infectious process. COMMENT: Quality ID # [id number]: Final reports with documentation of one or more dose reduction techniques (e.g., Automated exposure control, adjustment of the mA and/or kV according to patient size, use of iterative reconstruction technique) TECHNICAL DOCUMENTATION: JOB ID: [id number] [employer] [employer]- All Rights Reserved
--- NOTE | 2017-08-03 17:33 | EKG REPORT ---
SEVERITY:- ABNORMAL ECG - SINUS RHYTHM MULTIPLE ATRIAL PREMATURE COMPLEXES INCOMPLETE LEFT BUNDLE BRANCH BLOCK PROBABLE LVH WITH SECONDARY REPOL ABNRM : Confirmed by: Inocencio Aguilar MD 03-Aug-2017 17:32:38
--- NOTE | 2017-08-03 17:33 | EKG REPORT ---
SEVERITY:- ABNORMAL ECG - SUPRAVENTRICULAR TACHYCARDIA INCOMPLETE LEFT BUNDLE BRANCH BLOCK : Confirmed by: Inocencio Aguilar MD 03-Aug-2017 17:33:05
[2017-08-03] MEDS: LEVALBUTEROL HCL NEB 1.25 MG/3 ML AMPUL NEB PRN (17:36)
[2017-08-03] MEDS ORDERED: DILTIAZEM HCL/D5W 125 MG/125 ML RTUINJ IV ONE (17:37)
[2017-08-03] MEDS: DILTIAZEM HCL/D5W 125 MG/125 ML RTUINJ IV PRN (18:26)
[2017-08-03] MEDS: FERROUS SULFATE 325 MG TABLET PO SCH (20:00)
[2017-08-03] MEDS: FAMOTIDINE 20 MG TABLET PO SCH (21:56)
[2017-08-03] MEDS: BUSPIRONE HCL 10 MG TABLET PO SCH (21:56)
[2017-08-03] MEDS: METHYLPREDNISOLONE INJ 40 MG/1 ML SDV IV SCH (21:57)
[2017-08-03] MEDS: GUAIFENESIN 600 MG TABLET.SA PO SCH (21:57)
[2017-08-03] MEDS: HEPARIN SOD (PORCINE) 5,000 UNIT/ML 1 ML SYRINGE SUBCUT SCH (21:58)
[2017-08-03] MEDS ORDERED: RANOLAZINE 500 MG TAB.SR.12H PO ONE (23:00)
[2017-08-03] MEDS ORDERED: METOPROLOL SUCCINATE 50 MG TAB.SR.24H PO ONE (23:30)
[2017-08-04] MEDS: OXYCODONE HCL IR 5 MG TABLET PO PRN ×3 (01:38→21:36)
[2017-08-04] MEDS ORDERED: DILTIAZEM HCL/D5W 125 MG/125 ML RTUINJ IV ONE (01:51)
[2017-08-04] MEDS: DILTIAZEM HCL/D5W 125 MG/125 ML RTUINJ IV PRN (02:21)
[2017-08-04] MEDS: LEVALBUTEROL HCL NEB 1.25 MG/3 ML AMPUL NEB PRN ×3 (04:06→14:07)
[2017-08-04] MEDS ORDERED: BACLOFEN 10 MG TABLET ONE (04:32)
[2017-08-04] MEDS: HYDRALAZINE HCL 25 MG TABLET PO SCH ×3 (06:09→21:34)
[2017-08-04] MEDS: HEPARIN SOD (PORCINE) 5,000 UNIT/ML 1 ML SYRINGE SUBCUT SCH ×3 (06:09→21:33)
[2017-08-04] MEDS: BACLOFEN 10 MG TABLET PO PRN (06:09)
[2017-08-04] MEDS: METHYLPREDNISOLONE INJ 40 MG/1 ML SDV IV SCH ×3 (06:09→21:33)
[2017-08-04 07:51] LABS: ABSOLUTE LYMPHOCYTES (AUTO) 0.8 10^3/uL (0.5-4.7); ABSOLUTE MONOCYTES (AUTO) 0.5 10^3/uL (0.1-1.4); ABSOLUTE NEUT (AUTO) 5.6 10^3/uL (1.7-8.2); BASOPHILS % (AUTO) 0.1 % (0-2); HEMATOCRIT 31.9 % (36.0-47.0); HEMOGLOBIN 10.6 g/dL (12.0-15.5); LYMPHOCYTES % (AUTO) 11.5 % (13-45); MEAN CORPUSCULAR HEMOGLOBIN 29.2 pg (27.0-33.4); MEAN CORPUSCULAR HGB CONC 33.2 g/dL (32.0-36.0); MEAN CORPUSCULAR VOLUME 88 fl (80-97); MONOCYTES % (AUTO) 7.4 % (3-13); PLATELET COUNT 182 10^3/uL (150-450); RED BLOOD COUNT 3.63 10^6/uL (3.72-5.28); RED CELL DISTRIBUTION WIDTH 15.6 % (11.5-14.0); TOTAL CELLS COUNTED % (AUTO) 100 %
[2017-08-04] MEDS ORDERED: FUROSEMIDE 40 MG TABLET PO SCH (08:00)
[2017-08-04 08:18] LABS: ANION GAP 8 (5-19); BLOOD UREA NITROGEN 28 mg/dL (7-20); CALCIUM 9.9 mg/dL (8.4-10.2); CARBON DIOXIDE 26 mmol/L (22-30); CHLORIDE 104 mmol/L (98-107); GLUCOSE 264 mg/dL (75-110); POTASSIUM 4.4 mmol/L (3.6-5.0); SODIUM 137.6 mmol/L (137-145)
[2017-08-04] MEDS: INSULIN DETEMIR 100 UNIT/ML 3 ML PEN SUBCUT SCH (09:23)
[2017-08-04] MEDS: INSULIN LISPRO 100 UNIT/ML 3 ML VIAL SUBCUT PRN ×4 (09:23→21:49)
[2017-08-04] MEDS: FLUTICASONE NASAL SPRAY 50 MCG/SPRY 120 SPRAY/16 GM NASL SCH (09:24)
[2017-08-04] MEDS: TIOTROPIUM BROMIDE DPI 5 CAP/KIT (18 MCG/CAP) IH SCH (09:25)
[2017-08-04] MEDS: LACTULOSE SYRUP 20 GM/30 ML UDCUP PO SCH ×2 (09:33→18:22)
[2017-08-04] MEDS: DULOXETINE HCL 30 MG CAPSULE.DR PO SCH (09:34)
[2017-08-04] MEDS: METOPROLOL SUCCINATE 50 MG TAB.SR.24H PO SCH (09:36)
[2017-08-04] MEDS: TAMSULOSIN HCL 0.4 MG CAP.SR.24H PO SCH (09:37)
[2017-08-04] MEDS: PREGABALIN 75 MG CAPSULE PO SCH ×2 (09:38→21:34)
[2017-08-04] MEDS: FAMOTIDINE 20 MG TABLET PO SCH ×2 (09:38→21:35)
[2017-08-04] MEDS: GUAIFENESIN 600 MG TABLET.SA PO SCH ×2 (09:38→21:34)
[2017-08-04] MEDS: BUSPIRONE HCL 10 MG TABLET PO SCH ×2 (09:39→21:35)
[2017-08-04] MEDS: FERROUS SULFATE 325 MG TABLET PO SCH (09:40)
[2017-08-04] MEDS ORDERED: LORATADINE 10 MG TABLET PO SCH (10:00)
[2017-08-04] MEDS ORDERED: ASPIRIN 81 MG TABLET, CHEWABLE PO SCH (10:00)
[2017-08-04] MEDS ORDERED: ASPIRIN 81 MG TABLET, ENT COATED PO SCH (10:00)
[2017-08-04] MEDS ORDERED: DOCUSATE SODIUM 100 MG CAPSULE PO SCH (10:00)
[2017-08-04] MEDS ORDERED: DOXYCYCLINE HYCLATE 100 MG TABLET PO SCH ×2 (11:00→22:00)
[2017-08-04] MEDS ORDERED: DOXYCYCLINE HYCLATE 100 MG TABLET PO ONE (11:30)
[2017-08-04] MEDS: LIDOCAINE 5% (700 MG) TRANSDERMAL ADH..PATCH TP SCH (11:37)
[2017-08-04] MEDS: RANOLAZINE 500 MG TAB.SR.12H PO SCH ×2 (11:37→21:34)
[2017-08-04] MEDS ORDERED: CEFTRIAXONE SODIUM 1,000 MG in DEXTROSE 5%-WATER 100 ML IV SCH (12:00)
[2017-08-04] MEDS ORDERED: CEFTRIAXONE SODIUM 1,000 MG in NORMAL SALINE 50 ML IV ONE (13:00)
[2017-08-04] MEDS: CYCLOBENZAPRINE HCL 10 MG TABLET PO PRN ×2 (14:27→21:36)
--- NOTE | 2017-08-04 15:41 | PDOC PROGRESS REPORT ---
Subjective Progress Note for:: 08/04/17 Subjective:: Pt feels some better today, she is bretahing better but still with wheezing and now with some green sputum. She is having flare of her chronic multijoint pain. SHe is very sad and teary about her suffering that is many years long now. SHe spoke extensively about multiple family deaths incluidng her daughters tito from cancer. She confirms DNR DNI status and states that she is ready to a natrual when the time comes and wants to be kept comfortable at that time. Her neice is her HCPOA. SHe has no BM for 4 days, appetite improving. Wants to decrease the amount of opioids she takes. Reason For Visit: COPD EXACERBATION,SINUS TACHYCARDIA,HEARD FAILURE Physical Exam Vital Signs: Temp Pulse Resp BP Pulse Ox 98.2 F 79 21 H 189/135 H 91 L 08/04/17 12:00 08/04/17 14:07 08/04/17 14:07 08/04/17 12:23 08/04/17 14:07 Pulse Oximeter Continuous Start: 08/03/17 16: 15 Freq: RTQ4 Status: Active Document 08/04/17 08:36 DSH (Rec: 08/04/17 08:50 DSH [email or web address]) Pulse Oximetry Assessment Oxygen Saturation (92-100) 98 Oxygen Flow Rate (L/min) 2 Oxygen Delivery Method Nasal Cannula Equipment Usage Equipment Standby Continuous SpO2 Machine # -- Intake & Output 08/03/17 08/04/17 08/05/17 06:59 06:59 06:59 Intake Total 450 Output Total 175 215 Balance 275 -215 Weight 95.3 kg General appearance: PRESENT: no acute distress, mild distress Head exam: PRESENT: atraumatic, normocephalic Eye exam: PRESENT: conjunctiva pink, EOMI. ABSENT: scleral icterus Ear exam: PRESENT: normal external ear exam. ABSENT: bleeding Mouth exam: PRESENT: moist. ABSENT: neck supple Neck exam: ABSENT: lymphadenopathy, tenderness Respiratory exam: PRESENT: crackles, wheezes. ABSENT: accessory muscle use, chest wall tenderness, clear to auscultation elia, tachypnea, unlabored Cardiovascular exam: PRESENT: irregular rhythm. ABSENT: bradycardia, tachycardia Pulses: PRESENT: normal radial pulses GI/Abdominal exam: PRESENT: normal bowel sounds, soft, other - obese. ABSENT: distended, tenderness Rectal exam: PRESENT: deferred Extremities exam: PRESENT: other - chronic venous stasis changes Musculoskeletal exam: PRESENT: other - functional paraplegia, little LE movement Neurological exam: PRESENT: alert, oriented to person, oriented to place, oriented to time, oriented to situation, CN II-XII grossly intact Psychiatric exam: PRESENT: other - sad. ABSENT: anxious, depressed Skin exam: PRESENT: dry, warm Results Laboratory Results: 08/04/17 07:39 08/04/17 07:39 08/04/17 08/04/17 07:39 07:39 WBC 7.0 RBC 3.63 L Hgb 10.6 L Hct 31.9 L MCV 88 MCH 29.2 MCHC 33.2 RDW 15.6 H Plt Count 182 Seg Neutrophils % 81.0 H Lymphocytes % 11.5 L Monocytes % 7.4 Eosinophils % 0.0 Basophils % 0.1 Absolute Neutrophils 5.6 Absolute Lymphocytes 0.8 Absolute Monocytes 0.5 Absolute Eosinophils 0.0 Absolute Basophils 0.0 Sodium 137.6 Potassium 4.4 Chloride 104 Carbon Dioxide 26 Anion Gap 8 BUN 28 H Creatinine 1.06 Est GFR ( Amer) > 60 Est GFR (Non-Af Amer) 51 L Glucose 264 H Calcium 9.9 08/03/17 08/04/17 08/04/17 18:45 01:13 07:39 Troponin I < 0.012 < 0.012 0.013 Impressions: Chest/Abdomen CTA 08/03/17 00:00 IMPRESSION: 1. No pulmonary emboli. 2. No evidence of acute infectious process. Chest X-Ray 08/03/17 12:39 IMPRESSION: Cardiomegaly. No acute findings. 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: with snf use Chronic kidney disease stage: stage 3 (moderate) Is this a current diagnosis for this admission?: Yes Plan: Will work on good glycemic control with current long and short acting insulin, diabetic diet (2) Shortness of breath Is this a current diagnosis for this admission?: Yes Plan: seondary to CHF and COMMUNITY SERVICE REPRESENTATIVE and PNA, will treat underlying conditions and follow closely in ICU for now (3) Wheezing Is this a current diagnosis for this admission?: Yes Plan: due to COPD exacaerbation and PNA, will treat underlyign conditions and will use steroids and bronchodilators (4) ARF (acute renal failure) Qualifiers: Acute renal failure type: unspecified Qualified Code(s): N17.9 - Acute kidney failure, unspecified Is this a current diagnosis for this admission?: Yes Plan: creatinine normal with continued elevation of BUN, will monitor and will avoid nephrotoxins, she is being diuresed so will follow renal fxn closely (5) Acute and chronic respiratory failure with hypoxia Is this a current diagnosis for this admission?: Yes Plan: due to COPD and PNA, treat underlying conditions with steroids, ABX and bronchodilators (6) Atrial fibrillation with rapid ventricular response Is this a current diagnosis for this admission?: Yes Plan: chronic conditions, will continue diltiazem for now (7) COPD exacerbation Is this a current diagnosis for this admission?: Yes Plan: improved, steroids, ABX and bronchodilators, O2 as indicated (8) Chronic pain Qualifiers: Chronic pain type: chronic pain syndrome Qualified Code(s): G89.4 - Chronic pain syndrome Is this a current diagnosis for this admission?: Yes Plan: cont fentanyl patch, decrease oxycodone from 10 mg QID to 5 mg QID prn pain. Will add low dose flexeril as this has helped her in the past. (9) Constipation due to opioid therapy Is this a current diagnosis for this admission?: Yes Plan: add senna BID (10) Functional quadriplegia Is this a current diagnosis for this admission?: Yes Plan: lives in SNF, will return there on DC, fall precautions (11) Heart failure Qualifiers: Heart failure type: diastolic Heart failure chronicity: chronic Qualified Code(s): I50.32 - Chronic diastolic (congestive) heart failure Plan: due to volume overload will change lasix from po to IV until she is more euvolemic, cont other cardiac meds (12) Morbid (severe) obesity with alveolar hypoventilation Is this a current diagnosis for this admission?: Yes Plan: CPAP use, weight loss is very unlikely at this point in her life (13) Neck pain Is this a current diagnosis for this admission?: Yes Plan: flexeril added (14) Do not resuscitate Is this a current diagnosis for this admission?: Yes Plan: Discussed with pat, she confirms, reagan is HCPOA, will speak with her doctor about appropriateness of hospice care once DCed (15) Generalized anxiety disorder Is this a current diagnosis for this admission?: Yes Plan: consider increase buspar tomorrow due to continued, uncontrolled anxiety (16) Polypharmacy Is this a current diagnosis for this admission?: Yes Plan: pt would like to reduce number of meds she is on, this would be reasonable biju given that she may consider hospice - Time Time Spent with patient: 35 or more minutes Anticipated discharge: SNF Within: within 72 hours - Inpatient Certification Based on my medical assessment, after consideration of the patient's comorbidities, presenting symptoms, or acuity I expect that the services needed warrant INPATIENT care.: Yes I certify that my determination is in accordance with my understanding of Medicare's requirements for reasonable and necessary INPATIENT services [42 CFR 412.3e].: Yes Medical Necessity: Significant Comorbidiites Make Outpatient Treatment Too Risky , Need Close Monitoring Due to Risk of Patient Decompensation, Need For Continuous Telemetry Monitoring, Need for Nebulizer Therapy and Monitoring of Response, Risk of Complication if Not Cared For in Hospital Post Hospital Care: D/C Child Custody Evaluator Documentation - will return to SNF, if Pal Care available in SNF that would be appropriate for her
[2017-08-04] MEDS: SENNOSIDES/DOCUSATE 8.6-50 MG 1 EACH TABLET PO SCH (18:25)
[2017-08-04] MEDS: MONTELUKAST SODIUM 10 MG TABLET PO SCH (21:35)
[2017-08-04] MEDS: DOXYCYCLINE HYCLATE 100 MG TABLET PO SCH (21:36)
[2017-08-05 04:21] LABS: ABSOLUTE LYMPHOCYTES (AUTO) 0.7 10^3/uL (0.5-4.7); ABSOLUTE MONOCYTES (AUTO) 0.4 10^3/uL (0.1-1.4); ABSOLUTE NEUT (AUTO) 5.3 10^3/uL (1.7-8.2); BASOPHILS % (AUTO) 0.1 % (0-2); HEMATOCRIT 29.9 % (36.0-47.0); HEMOGLOBIN 10.1 g/dL (12.0-15.5); LYMPHOCYTES % (AUTO) 11.7 % (13-45); MEAN CORPUSCULAR HEMOGLOBIN 29.6 pg (27.0-33.4); MEAN CORPUSCULAR VOLUME 87 fl (80-97); MONOCYTES % (AUTO) 5.8 % (3-13); PLATELET COUNT 149 10^3/uL (150-450); RED BLOOD COUNT 3.43 10^6/uL (3.72-5.28); RED CELL DISTRIBUTION WIDTH 15.8 % (11.5-14.0); SEGMENTED NEUTROPHILS % (AUTO) 82.4 % (42-78); TOTAL CELLS COUNTED % (AUTO) 100 %; WHITE BLOOD COUNT 6.4 10^3/uL (4.0-10.5)
[2017-08-05 04:51] LABS: ANION GAP 8 (5-19); BLOOD UREA NITROGEN 42 mg/dL (7-20); CARBON DIOXIDE 27 mmol/L (22-30); CHLORIDE 105 mmol/L (98-107); GLUCOSE 243 mg/dL (75-110); POTASSIUM 4.5 mmol/L (3.6-5.0); SODIUM 139.7 mmol/L (137-145)
[2017-08-05] MEDS: CYCLOBENZAPRINE HCL 10 MG TABLET PO PRN ×2 (05:49→22:11)
[2017-08-05] MEDS: METHYLPREDNISOLONE INJ 40 MG/1 ML SDV IV SCH (05:49)
[2017-08-05] MEDS: HEPARIN SOD (PORCINE) 5,000 UNIT/ML 1 ML SYRINGE SUBCUT SCH ×3 (05:49→22:12)
[2017-08-05] MEDS: HYDRALAZINE HCL 25 MG TABLET PO SCH ×3 (05:50→21:29)
[2017-08-05] MEDS ORDERED: FENTANYL 25 MCG/HR PATCH.TD72 TD SCH (08:00)
[2017-08-05] MEDS: LEVALBUTEROL HCL NEB 1.25 MG/3 ML AMPUL NEB PRN ×3 (09:04→20:16)
[2017-08-05] MEDS: TAMSULOSIN HCL 0.4 MG CAP.SR.24H PO SCH (09:19)
[2017-08-05] MEDS: FAMOTIDINE 20 MG TABLET PO SCH ×2 (09:19→22:11)
[2017-08-05] MEDS: DULOXETINE HCL 30 MG CAPSULE.DR PO SCH (09:20)
[2017-08-05] MEDS: DOXYCYCLINE HYCLATE 100 MG TABLET PO SCH ×2 (09:20→22:11)
[2017-08-05] MEDS: PREGABALIN 75 MG CAPSULE PO SCH ×2 (09:21→22:11)
[2017-08-05] MEDS: SENNOSIDES/DOCUSATE 8.6-50 MG 1 EACH TABLET PO SCH ×2 (09:22→17:13)
[2017-08-05] MEDS: CETIRIZINE 10 MG TABLET PO SCH (09:22)
[2017-08-05] MEDS: BUSPIRONE HCL 10 MG TABLET PO SCH ×2 (09:23→22:11)
[2017-08-05] MEDS: GUAIFENESIN 600 MG TABLET.SA PO SCH ×2 (09:23→22:11)
[2017-08-05] MEDS: LACTULOSE SYRUP 20 GM/30 ML UDCUP PO SCH ×2 (09:24→17:05)
[2017-08-05] MEDS ORDERED: PROMETHAZINE HCL 25 MG TABLET PO PRN (09:25)
[2017-08-05] MEDS: ASPIRIN 81 MG TABLET, ENT COATED PO SCH (09:25)
[2017-08-05] MEDS: METOPROLOL SUCCINATE 50 MG TAB.SR.24H PO SCH ×2 (09:25→10:39)
[2017-08-05] MEDS: OXYCODONE HCL IR 5 MG TABLET PO PRN ×3 (09:28→23:21)
[2017-08-05] MEDS: RANOLAZINE 500 MG TAB.SR.12H PO SCH ×2 (09:29→22:12)
[2017-08-05] MEDS: LIDOCAINE 5% (700 MG) TRANSDERMAL ADH..PATCH TP SCH (09:29)
[2017-08-05] MEDS: FLUTICASONE NASAL SPRAY 50 MCG/SPRY 120 SPRAY/16 GM NASL SCH (09:30)
[2017-08-05] MEDS: INSULIN DETEMIR 100 UNIT/ML 3 ML PEN SUBCUT SCH (09:32)
[2017-08-05] MEDS: TIOTROPIUM BROMIDE DPI 5 CAP/KIT (18 MCG/CAP) IH SCH (09:35)
[2017-08-05] MEDS ORDERED: PREDNISONE 10 MG TABLET PO SCH (09:45)
[2017-08-05] MEDS ORDERED: FUROSEMIDE INJ/PF 40 MG/4 ML SDV IV SCH (10:00)
[2017-08-05] MEDS ORDERED: (PENDING PHARMACY ID) (Roflumilast [Daliresp 500 Mcg Tablet] 500 MCG) PO SCH (10:00)
[2017-08-05] MEDS ORDERED: FUROSEMIDE INJ/PF 20 MG/2 ML SDV IV SCH (10:00)
[2017-08-05] MEDS ORDERED: (PENDING PHARMACY ID) (Linaclotide 145 MCG) PO SCH (10:00)
[2017-08-05] MEDS ORDERED: CEFTRIAXONE SODIUM 1,000 MG in NORMAL SALINE 50 ML IV SCH (10:00)
[2017-08-05] MEDS ORDERED: (PENDING PHARMACY ID) (Budesonide [Pulmicort 180 Mcg Flexhaler] 2 PUFF) IH SCH (10:00)
[2017-08-05] MEDS: ROFLUMILAST 500 MCG TABLET PO SCH (10:40)
[2017-08-05] MEDS: PREDNISONE 10 MG TABLET PO SCH (10:41)
--- NOTE | 2017-08-05 11:19 | PDOC PROGRESS REPORT ---
Subjective Progress Note for:: 08/05/17 Subjective:: Patient thinks she is getting some better. She still wheezing. She is coughing up phlegm. She states she slept better last night than she has not a long time. Her joint pain after starting the Flexeril has improved. No new chest pain. No new palpitations. Fevers or chills. She had a large bowel movement yesterday and she had not had one several days prior. She continues to struggle with anxiety and sadness. Remained of ROS performed and was not positive. I reviewed labs and pertinent studies today. Reason For Visit: COPD EXACERBATION, HCA PNA, AFib with RVR,HEARD FAILURE exacerbation Physical Exam Vital Signs: Temp Pulse Resp BP Pulse Ox 98.6 F 82 15 134/62 H 99 08/05/17 08:00 08/05/17 09:04 08/05/17 10:00 08/05/17 08:00 08/05/17 10:00 Pulse Oximeter Continuous Start: 08/03/17 16: 15 Freq: RTQ4 Status: Hold Document 08/05/17 00:00 STI (Rec: 08/05/17 01:09 STI [email or web address]) Pulse Oximetry Assessment Oxygen Saturation (92-100) 96 Oxygen Flow Rate (L/min) 3.0 Oxygen Delivery Method CPAP Fraction of Inspired Oxygen (FIO2) 32 Equipment Usage Equipment Standby Continuous SpO2 Machine # ICU MONITOR Intake & Output 08/04/17 08/05/17 08/06/17 06:59 06:59 06:59 Intake Total 450 92 Output Total 175 1015 75 Balance 275 -923 -75 Weight 95.3 kg 98.9 kg General appearance: PRESENT: no acute distress, cooperative, hard of hearing, morbidly obese Head exam: PRESENT: atraumatic, normocephalic Eye exam: PRESENT: conjunctiva pink. ABSENT: scleral icterus Ear exam: PRESENT: normal external ear exam. ABSENT: bleeding Mouth exam: PRESENT: dry mucosa Teeth exam: PRESENT: edentulous Respiratory exam: PRESENT: decreased breath sounds, prolonged expiratory phas, rhonchi, wheezes. ABSENT: stridor, tachypnea Cardiovascular exam: PRESENT: irregular rhythm. ABSENT: bradycardia, tachycardia Pulses: PRESENT: normal radial pulses Vascular exam: PRESENT: pallor GI/Abdominal exam: PRESENT: normal bowel sounds, soft. ABSENT: distended, guarding, tenderness Rectal exam: PRESENT: deferred Gentrourinary exam: PRESENT: indwelling catheter, other - clear yellow urine Extremities exam: ABSENT: calf tenderness, pedal edema Neurological exam: PRESENT: alert, awake, oriented to person, oriented to place , oriented to situation, CN II-XII grossly intact Psychiatric exam: PRESENT: anxious. ABSENT: agitated Skin exam: PRESENT: dry, intact, warm Results Laboratory Results: 08/05/17 04:09 08/05/17 04:09 08/05/17 08/05/17 04:09 04:09 WBC 6.4 RBC 3.43 L Hgb 10.1 L Hct 29.9 L MCV 87 MCH 29.6 MCHC 34.0 RDW 15.8 H Plt Count 149 L Seg Neutrophils % 82.4 H Lymphocytes % 11.7 L Monocytes % 5.8 Eosinophils % 0.0 Basophils % 0.1 Absolute Neutrophils 5.3 Absolute Lymphocytes 0.7 Absolute Monocytes 0.4 Absolute Eosinophils 0.0 Absolute Basophils 0.0 Sodium 139.7 Potassium 4.5 Chloride 105 Carbon Dioxide 27 Anion Gap 8 BUN 42 H Creatinine 1.21 Est GFR ( Amer) 53 L Est GFR (Non-Af Amer) 43 L Glucose 243 H Calcium 10.0 08/03/17 08/04/17 08/04/17 18:45 01:13 07:39 Troponin I < 0.012 < 0.012 0.013 NT-Pro-B Natriuret Pep 08/05/17 04:09 Troponin I NT-Pro-B Natriuret Pep 982 H Impressions: Chest/Abdomen CTA 08/03/17 00:00 IMPRESSION: 1. No pulmonary emboli. 2. No evidence of acute infectious process. Chest X-Ray 08/03/17 12:39 IMPRESSION: Cardiomegaly. No acute findings. 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 Patient is also on steroids. We will continue her short acting Levemir with before meals and at bedtime CBG checks. We will increase her insulin detemir to 35 units daily. Continue diabetic diet. Titrate steroids as we are able. (2) Shortness of breath Is this a current diagnosis for this admission?: Yes Plan: Multifactorial. COPD with exacerbation, pneumonia with gram-positive cocci in pairs and clusters, failure with exacerbation. We will continue to treat underlying conditions. (3) Wheezing Is this a current diagnosis for this admission?: Yes Plan: Multifactorial. She has COPD with exacerbation possibly secondary to pneumonia. I have added back of her home breathing treatments. Continue with scheduled and as needed bronchodilators. We will continue with steroids. (4) ARF (acute renal failure) Qualifiers: Acute renal failure type: unspecified Qualified Code(s): N17.9 - Acute kidney failure, unspecified Is this a current diagnosis for this admission?: Yes Plan: Patient diuresed more vigorously yesterday. She had a bump in her BUN and creatinine. Will hold Lasix today, recheck BUN and creatinine Mccann and hopefully re-dose her Lasix tomorrow as she does have continued volume overload. (5) Acute and chronic respiratory failure with hypoxia Is this a current diagnosis for this admission?: Yes Plan: We will continue to treat underlying conditions causing her acute problems. We have restarted most of her home meds for her respiratory problems. No longer hypoxemic. (6) Atrial fibrillation with rapid ventricular response Is this a current diagnosis for this admission?: Yes Plan: Patient continues in A. fib. Her heart rate is in the 80s and 90s. Diltiazem drip was stopped. At this point I am going to increase her metoprolol succinate from 50 mg to 75 mg daily. (7) COPD exacerbation Is this a current diagnosis for this admission?: Yes Plan: Continue with antibiotics, doxycycline. Continue with bronchodilators and other breathing treatments as ordered. Continue steroids. (8) Chronic pain Qualifiers: Chronic pain type: chronic pain syndrome Qualified Code(s): G89.4 - Chronic pain syndrome Is this a current diagnosis for this admission?: Yes Plan: Stable, continue her fentanyl patch and reduced dose of as needed oxycodone. Continue Flexeril. (9) Constipation due to opioid therapy Is this a current diagnosis for this admission?: Yes Plan: Yesterday patient had a bowel movement. Will continue with senna 2 tabs p.o. twice daily. Will use lactulose as needed constipation. Stopped Colace. (10) Functional quadriplegia Is this a current diagnosis for this admission?: Yes Plan: Patient would benefit from physical therapy once she is over the acute illness. She will need [facility] be [facility] she [facility]. (11) Heart failure Qualifiers: Heart failure type: diastolic Heart failure chronicity: chronic Qualified Code(s): I50.32 - Chronic diastolic (congestive) heart failure Is this a current diagnosis for this admission?: Yes Plan: We will continue with metoprolol, Lasix when her renal function can tolerate. (12) Morbid (severe) obesity with alveolar hypoventilation Is this a current diagnosis for this admission?: Yes Plan: Patient is very immobile. She is almost completely bedbound. Weight loss is very unlikely. We will continue to treat underlying problems and will continue to encourage CPAP usage. (13) Neck pain Is this a current diagnosis for this admission?: Yes Plan: Improved with Flexeril. Continue. (14) Do not resuscitate Is this a current diagnosis for this admission?: Yes Plan: Patient discussed this again today, she confirmed her DNR/DNI status. (15) Generalized anxiety disorder Is this a current diagnosis for this admission?: Yes Plan: We will continue to monitor and consider increasing her BuSpar in the day or so. (16) Polypharmacy Is this a current diagnosis for this admission?: Yes Plan: We will try to review her medication list on discharge to see if there are any extraneous medications that can be discontinued. - Time Time Spent with patient: 35 or more minutes Anticipated discharge: Acute Rehab - Inpatient Certification Medical Necessity: Significant Comorbidiites Make Outpatient Treatment Too Risky , Need Close Monitoring Due to Risk of Patient Decompensation, Need for Nebulizer Therapy and Monitoring of Response Post Hospital Care: D/C Utility Sales Representative Documentation - Patient requesting change in her penitentiary facility
[2017-08-05] MEDS ORDERED: METOPROLOL SUCCINATE 25 MG TAB.SR.24H PO ONE (11:30)
[2017-08-05 13:11] LABS: ANION GAP 8 (5-19); BLOOD UREA NITROGEN 41 mg/dL (7-20); CALCIUM 9.9 mg/dL (8.4-10.2); CARBON DIOXIDE 25 mmol/L (22-30); CHLORIDE 103 mmol/L (98-107); GLUCOSE 316 mg/dL (75-110); POTASSIUM 4.8 mmol/L (3.6-5.0)
[2017-08-05] MEDS: CEFPODOXIME 200 MG TABLET PO SCH ×2 (13:16→22:11)
[2017-08-05] MEDS: ACETYLCYSTEINE 10% NEB 400 MG/4 ML VIAL NEB SCH ×2 (14:00→20:16)
[2017-08-05] MEDS: BACLOFEN 10 MG TABLET PO PRN (17:14)
[2017-08-05] MEDS: ACETAMINOPHEN 325 MG TABLET PO PRN (21:27)
[2017-08-05] MEDS: FLUTICASONE PROPIONATE HFA 110 MCG/PUFF 12 GM MDI IH SCH (22:11)
[2017-08-05] MEDS: MONTELUKAST SODIUM 10 MG TABLET PO SCH (22:11)
[2017-08-05] MEDS: PHARMACY COMMUNICATION ORDER MC SCH (22:15)
[2017-08-05] MEDS: INSULIN LISPRO 100 UNIT/ML 3 ML VIAL SUBCUT PRN (23:56)
[2017-08-06] MEDS: LEVALBUTEROL HCL NEB 1.25 MG/3 ML AMPUL NEB PRN ×4 (01:53→21:19)
[2017-08-06] MEDS: ACETYLCYSTEINE 10% NEB 400 MG/4 ML VIAL NEB SCH ×4 (01:53→21:18)
[2017-08-06 04:45] LABS: ANION GAP 7 (5-19); BLOOD UREA NITROGEN 46 mg/dL (7-20); CARBON DIOXIDE 28 mmol/L (22-30); CHLORIDE 105 mmol/L (98-107); GLUCOSE 147 mg/dL (75-110); SODIUM 140.2 mmol/L (137-145)
[2017-08-06 04:50] LABS: POTASSIUM 3.7 mmol/L (3.6-5.0)
[2017-08-06] MEDS: HEPARIN SOD (PORCINE) 5,000 UNIT/ML 1 ML SYRINGE SUBCUT SCH ×3 (07:05→22:38)
[2017-08-06] MEDS: OXYCODONE HCL IR 5 MG TABLET PO PRN ×3 (07:21→22:33)
[2017-08-06] MEDS: BACLOFEN 10 MG TABLET PO PRN ×2 (07:23→22:36)
[2017-08-06] MEDS: HYDRALAZINE HCL 25 MG TABLET PO SCH ×3 (07:23→22:37)
[2017-08-06] MEDS: METOPROLOL SUCCINATE 50 MG TAB.SR.24H PO SCH (09:17)
[2017-08-06] MEDS: PREGABALIN 75 MG CAPSULE PO SCH ×2 (09:17→22:35)
[2017-08-06] MEDS: TAMSULOSIN HCL 0.4 MG CAP.SR.24H PO SCH (09:18)
[2017-08-06] MEDS: ROFLUMILAST 500 MCG TABLET PO SCH (09:18)
[2017-08-06] MEDS: DULOXETINE HCL 30 MG CAPSULE.DR PO SCH (09:18)
[2017-08-06] MEDS: DOXYCYCLINE HYCLATE 100 MG TABLET PO SCH ×2 (09:19→22:36)
[2017-08-06] MEDS: GUAIFENESIN 600 MG TABLET.SA PO SCH ×2 (09:19→22:35)
[2017-08-06] MEDS: FAMOTIDINE 20 MG TABLET PO SCH ×2 (09:19→22:36)
[2017-08-06] MEDS: PREDNISONE 10 MG TABLET PO SCH (09:20)
[2017-08-06] MEDS: SENNOSIDES/DOCUSATE 8.6-50 MG 1 EACH TABLET PO SCH ×2 (09:20→17:32)
[2017-08-06] MEDS: BUSPIRONE HCL 10 MG TABLET PO SCH ×2 (09:21→22:34)
[2017-08-06] MEDS: ASPIRIN 81 MG TABLET, ENT COATED PO SCH (09:21)
[2017-08-06] MEDS: CETIRIZINE 10 MG TABLET PO SCH (09:21)
[2017-08-06] MEDS: CEFPODOXIME 200 MG TABLET PO SCH ×2 (09:23→22:35)
[2017-08-06] MEDS: RANOLAZINE 500 MG TAB.SR.12H PO SCH ×2 (09:23→22:35)
[2017-08-06] MEDS: LIDOCAINE 5% (700 MG) TRANSDERMAL ADH..PATCH TP SCH (09:24)
[2017-08-06] MEDS: FLUTICASONE NASAL SPRAY 50 MCG/SPRY 120 SPRAY/16 GM NASL SCH (09:24)
[2017-08-06] MEDS: FLUTICASONE PROPIONATE HFA 110 MCG/PUFF 12 GM MDI IH SCH ×2 (09:25→22:55)
[2017-08-06] MEDS: TIOTROPIUM BROMIDE DPI 5 CAP/KIT (18 MCG/CAP) IH SCH (09:27)
[2017-08-06] MEDS: LACTULOSE SYRUP 20 GM/30 ML UDCUP PO SCH ×2 (09:44→17:32)
[2017-08-06] MEDS: INSULIN DETEMIR 100 UNIT/ML 3 ML PEN SUBCUT SCH (10:00)
[2017-08-06] MEDS ORDERED: FUROSEMIDE INJ/PF 20 MG/2 ML SDV IV ONE (14:37)
[2017-08-06] MEDS ORDERED: FUROSEMIDE INJ/PF 40 MG/4 ML SDV IV ONE (15:30)
[2017-08-06] MEDS: CYCLOBENZAPRINE HCL 10 MG TABLET PO PRN (15:59)
--- NOTE | 2017-08-06 17:10 | PDOC PROGRESS REPORT ---
Subjective Progress Note for:: 08/06/17 Subjective:: Patient feels like she has some extra fluid on board. She does feel that her breathing overall is getting better though. Her wheezing is improving. She slept well last night. One bowel movement 2 days ago at home she stools daily. No new chest pain. Anxiety is reasonably well controlled. No new tingling numbness headache or vision changes. She is hard of hearing. Remainder of review of systems is performed and is negative. Pertinent diagnostic studies and labs have been reviewed by me today. Reason For Visit: COPD EXACERBATION,SINUS TACHYCARDIA,HEARD FAILURE Physical Exam Vital Signs: Temp Pulse Resp BP Pulse Ox 98.6 F 70 20 136/80 H 98 08/06/17 12:00 08/06/17 13:25 08/06/17 15:00 08/06/17 13:33 08/06/17 15:00 Pulse Oximeter Continuous Start: 08/03/17 16: 15 Freq: RTQ4 Status: Hold Document 08/05/17 00:00 STI (Rec: 08/05/17 01:09 STI [email or web address]) Pulse Oximetry Assessment Oxygen Saturation (92-100) 96 Oxygen Flow Rate (L/min) 3.0 Oxygen Delivery Method CPAP Fraction of Inspired Oxygen (FIO2) 32 Equipment Usage Equipment Standby Continuous SpO2 Machine # ICU MONITOR Intake & Output 08/05/17 08/06/17 08/07/17 06:59 06:59 06:59 Intake Total 92 850 Output Total 1015 1230 350 Balance -923 -380 -350 Weight 98.9 kg 102 kg General appearance: PRESENT: no acute distress, morbidly obese Head exam: PRESENT: atraumatic, normocephalic Eye exam: PRESENT: conjunctiva pale, EOMI. ABSENT: scleral icterus Mouth exam: PRESENT: moist, neck supple Neck exam: ABSENT: lymphadenopathy Respiratory exam: PRESENT: decreased breath sounds, rales, wheezes. ABSENT: unlabored Cardiovascular exam: PRESENT: RRR, other - Lung sounds would prevent auscultation of quiet murmur GI/Abdominal exam: PRESENT: normal bowel sounds, soft. ABSENT: distended, guarding, tenderness Rectal exam: PRESENT: deferred Extremities exam: ABSENT: calf tenderness, full ROM, pedal edema Musculoskeletal exam: PRESENT: deformity Neurological exam: PRESENT: alert, awake, oriented to person, oriented to place , oriented to situation. ABSENT: normal gait Psychiatric exam: PRESENT: anxious, depressed Skin exam: PRESENT: dry, intact, warm Results Laboratory Results: 08/05/17 04:09 08/06/17 04:07 08/06/17 04:07 Sodium 140.2 Potassium 3.7 D Chloride 105 Carbon Dioxide 28 Anion Gap 7 BUN 46 H Creatinine 1.17 Est GFR ( Amer) 55 L Est GFR (Non-Af Amer) 45 L Glucose 147 H Calcium 10.0 08/03/17 08/04/17 08/04/17 18:45 01:13 07:39 Troponin I < 0.012 < 0.012 0.013 NT-Pro-B Natriuret Pep 08/05/17 04:09 Troponin I NT-Pro-B Natriuret Pep 982 H Impressions: Chest/Abdomen CTA 08/03/17 00:00 IMPRESSION: 1. No pulmonary emboli. 2. No evidence of acute infectious process. Chest X-Ray 08/03/17 12:39 IMPRESSION: Cardiomegaly. No acute findings. Assessment & Plan - Diagnosis (1) Diabetes mellitus Qualifiers: Diabetes mellitus type: type 2 Diabetes mellitus complication detail: with chronic kidney disease Diabetes mellitus longwall foreman insulin use: with longwall foreman use Chronic kidney disease stage: stage 3 (moderate) Is this a current diagnosis for this admission?: Yes Plan: Long-acting insulin was increased yesterday. Morning fasting glucose was much improved. Will continue current long-acting and short acting as ordered. Continue diabetic diet. (2) ARF (acute renal failure) Qualifiers: Acute renal failure type: unspecified Qualified Code(s): N17.9 - Acute kidney failure, unspecified Is this a current diagnosis for this admission?: Yes Plan: Patient's creatinine has been climbing some though this may be due to under diuresis. Will attempt IV diuresis for the next several days and monitor renal function. (3) Acute and chronic respiratory failure with hypoxia Is this a current diagnosis for this admission?: Yes Plan: And has heart failure and COPD along with obstructive sleep apnea and probably obesity hypoventilation syndrome. Her acute components are improving though this patient respiratory status will never be normal. This point she is a hospice candidate. (4) Atrial fibrillation with rapid ventricular response Is this a current diagnosis for this admission?: Yes Plan: Rate controlled. Continue rate control agent. (5) COPD exacerbation Is this a current diagnosis for this admission?: Yes Plan: Her COPD treatments that she uses at home have been added back to her regimen. Will continue duo nebs as needed. (6) Chronic pain Qualifiers: Chronic pain type: chronic pain syndrome Qualified Code(s): G89.4 - Chronic pain syndrome Is this a current diagnosis for this admission?: Yes Plan: Stable, continue current care. (7) Constipation due to opioid therapy Is this a current diagnosis for this admission?: Yes Plan: Patient requesting dose of milk of magnesia and that has been given. Normally at home she stools every day and so we will aim for this. Senna has been added to her regimen. (8) Functional quadriplegia Is this a current diagnosis for this admission?: Yes Plan: Patient is completely bedbound except with assistance. She lives in a alf facility. (9) Heart failure Qualifiers: Heart failure type: diastolic Heart failure chronicity: chronic Qualified Code(s): I50.32 - Chronic diastolic (congestive) heart failure Is this a current diagnosis for this admission?: Yes Plan: We will try to maintain good blood pressure control. Will diurese as indicated. Other cardiac medications to be continued. (10) Morbid (severe) obesity with alveolar hypoventilation Is this a current diagnosis for this admission?: Yes Plan: Weight loss unlikely at this time. And is moving towards hospice most likely. (11) Neck pain Is this a current diagnosis for this admission?: Yes Plan: Improved with as needed Flexeril, this will be continued. (12) Do not resuscitate Is this a current diagnosis for this admission?: Yes Plan: Patient confirms. (13) Generalized anxiety disorder Is this a current diagnosis for this admission?: Yes Plan: We will readdress this again tomorrow and again consider increasing her BuSpar. (14) Polypharmacy Is this a current diagnosis for this admission?: Yes Plan: This is a difficult problem. If she does not fact enter hospice we will be able to stop some of her medications as they will no longer be appropriate in the hospice setting. - Time Time Spent with patient: 35 or more minutes - Spent time with patient in the ICU and also, with the patient's permission, had a phone conversation with her healthcare power of attorney recruiter niece regarding her current medical status and also we had a discussion about hospice end-of-life wishes. 20 minutes spent on advanced care planning topics. - Inpatient Certification Medical Necessity: Significant Comorbidiites Make Outpatient Treatment Too Risky , Need Close Monitoring Due to Risk of Patient Decompensation, Need for Nebulizer Therapy and Monitoring of Response, Risk of Complication if Not Cared For in Hospital
[2017-08-06] MEDS: MONTELUKAST SODIUM 10 MG TABLET PO SCH (22:36)
[2017-08-06] MEDS: PHARMACY COMMUNICATION ORDER MC SCH (22:42)
[2017-08-07] MEDS: INSULIN LISPRO 100 UNIT/ML 3 ML VIAL SUBCUT PRN ×2 (00:01→22:21)
[2017-08-07] MEDS: ACETYLCYSTEINE 10% NEB 400 MG/4 ML VIAL NEB SCH ×4 (01:51→20:09)
[2017-08-07] MEDS: LEVALBUTEROL HCL NEB 1.25 MG/3 ML AMPUL NEB PRN ×4 (01:51→20:09)
[2017-08-07 04:23] LABS: HEMATOCRIT 31.6 % (36.0-47.0); HEMOGLOBIN 10.9 g/dL (12.0-15.5); MEAN CORPUSCULAR HEMOGLOBIN 29.9 pg (27.0-33.4); MEAN CORPUSCULAR HGB CONC 34.6 g/dL (32.0-36.0); MEAN CORPUSCULAR VOLUME 86 fl (80-97); PLATELET COUNT 136 10^3/uL (150-450); RED BLOOD COUNT 3.66 10^6/uL (3.72-5.28); RED CELL DISTRIBUTION WIDTH 15.6 % (11.5-14.0); WHITE BLOOD COUNT 6.6 10^3/uL (4.0-10.5)
[2017-08-07 04:32] LABS: ALANINE AMINOTRANSFERASE 38 U/L (9-52); ALBUMIN 3.5 g/dL (3.5-5.0); ALKALINE PHOSPHATASE 80 U/L (38-126); ANION GAP 9 (5-19); ASPARTATE AMINO TRANSFERASE 14 U/L (14-36); BILIRUBIN,DIRECT 0.2 mg/dL (0.0-0.4); BILIRUBIN,TOTAL 0.2 mg/dL (0.2-1.3); BLOOD UREA NITROGEN 43 mg/dL (7-20); CALCIUM 9.6 mg/dL (8.4-10.2); CARBON DIOXIDE 30 mmol/L (22-30); CHLORIDE 106 mmol/L (98-107); GLUCOSE 112 mg/dL (75-110); MAGNESIUM 2.2 mg/dL (1.6-2.3); POTASSIUM 3.8 mmol/L (3.6-5.0); SODIUM 144.7 mmol/L (137-145); TOTAL PROTEIN 5.5 g/dL (6.3-8.2)
[2017-08-07 04:49] LABS: ABSOLUTE LYMPHOCYTES# (MANUAL) 1.8 10^3/uL (0.5-4.7); ABSOLUTE MONOCYTES # (MANUAL) 0.4 10^3/uL (0.1-1.4); ABSOLUTE NEUTROPHILS# (MANUAL) 4.4 10^3/uL (1.7-8.2); BASOPHILS % (MANUAL) 0 % (0-2); EOSINOPHILS % (MANUAL) 1 % (0-6); LYMPHOCYTES % (MANUAL) 25 % (13-45); MONOCYTES % (MANUAL) 6 % (3-13); SEGMENTED NEUTROPHILS % (MAN) 66 % (42-78); TOTAL CELLS COUNTED 100
[2017-08-07 04:53] LABS: HYPERSEGMENTED NEUTROPHILS PRESENT; PLATELET CLUMPS PRESENT; PLATELET COMMENT ADEQUATE; RBC MORPHOLOGY COMMENT NORMO-CYTIC/CHROMIC
[2017-08-07] MEDS: HEPARIN SOD (PORCINE) 5,000 UNIT/ML 1 ML SYRINGE SUBCUT SCH ×3 (06:22→22:20)
[2017-08-07] MEDS: HYDRALAZINE HCL 25 MG TABLET PO SCH ×3 (06:22→22:12)
[2017-08-07] MEDS: GUAIFENESIN 600 MG TABLET.SA PO SCH ×2 (09:13→22:11)
[2017-08-07] MEDS: PREDNISONE 10 MG TABLET PO SCH (09:14)
[2017-08-07] MEDS: CETIRIZINE 10 MG TABLET PO SCH (09:14)
[2017-08-07] MEDS: BUSPIRONE HCL 10 MG TABLET PO SCH ×2 (09:15→22:11)
[2017-08-07] MEDS: FAMOTIDINE 20 MG TABLET PO SCH ×2 (09:15→22:11)
[2017-08-07] MEDS: ASPIRIN 81 MG TABLET, ENT COATED PO SCH (09:15)
[2017-08-07] MEDS: PREGABALIN 75 MG CAPSULE PO SCH ×2 (09:16→22:11)
[2017-08-07] MEDS: SENNOSIDES/DOCUSATE 8.6-50 MG 1 EACH TABLET PO SCH ×2 (09:16→18:30)
[2017-08-07] MEDS: METOPROLOL SUCCINATE 50 MG TAB.SR.24H PO SCH (09:17)
[2017-08-07] MEDS: DULOXETINE HCL 30 MG CAPSULE.DR PO SCH (09:17)
[2017-08-07] MEDS: TAMSULOSIN HCL 0.4 MG CAP.SR.24H PO SCH (09:20)
[2017-08-07] MEDS: LACTULOSE SYRUP 20 GM/30 ML UDCUP PO SCH ×2 (09:21→18:30)
[2017-08-07] MEDS: DOXYCYCLINE HYCLATE 100 MG TABLET PO SCH ×2 (09:21→22:11)
[2017-08-07] MEDS: ROFLUMILAST 500 MCG TABLET PO SCH (09:22)
[2017-08-07] MEDS: FLUTICASONE NASAL SPRAY 50 MCG/SPRY 120 SPRAY/16 GM NASL SCH (09:23)
[2017-08-07] MEDS: FLUTICASONE PROPIONATE HFA 110 MCG/PUFF 12 GM MDI IH SCH ×2 (09:24→22:12)
[2017-08-07] MEDS: TIOTROPIUM BROMIDE DPI 5 CAP/KIT (18 MCG/CAP) IH SCH (09:24)
[2017-08-07] MEDS: LIDOCAINE 5% (700 MG) TRANSDERMAL ADH..PATCH TP SCH (09:28)
[2017-08-07] MEDS: CEFPODOXIME 200 MG TABLET PO SCH ×2 (09:29→22:10)
[2017-08-07] MEDS: RANOLAZINE 500 MG TAB.SR.12H PO SCH ×2 (09:29→22:12)
[2017-08-07] MEDS: INSULIN DETEMIR 100 UNIT/ML 3 ML PEN SUBCUT SCH (09:30)
[2017-08-07] MEDS: CYCLOBENZAPRINE HCL 10 MG TABLET PO PRN ×2 (11:51→22:10)
[2017-08-07] MEDS: OXYCODONE HCL IR 5 MG TABLET PO PRN (15:00)
--- NOTE | 2017-08-07 16:30 | PDOC PROGRESS REPORT ---
Subjective Progress Note for:: 08/07/17 Subjective:: No chest pain. Shortness of breath returning to normal. She feels better after diuresing yesterday. No nausea vomiting constipation or diarrhea. She is eating and drinking well. She feels very weak. She would like to get stronger before she goes home. No headache or vision changes. Her acute pain is returning to chronic pain. Remainder of review of systems is performed and is negative. I reviewed her labs and pertinent diagnostic studies today. Reason For Visit: COPD EXACERBATION,SINUS TACHYCARDIA,HEARD FAILURE Physical Exam Vital Signs: Temp Pulse Resp BP Pulse Ox 98.4 F 82 18 135/68 H 93 08/07/17 12:22 08/07/17 13:41 08/07/17 13:41 08/07/17 12:22 08/07/17 13:00 Pulse Oximeter Continuous Start: 08/03/17 16: 15 Freq: RTQ4 Status: Hold Document 08/05/17 00:00 STI (Rec: 08/05/17 01:09 STI [email or web address]) Pulse Oximetry Assessment Oxygen Saturation (92-100) 96 Oxygen Flow Rate (L/min) 3.0 Oxygen Delivery Method CPAP Fraction of Inspired Oxygen (FIO2) 32 Equipment Usage Equipment Standby Continuous SpO2 Machine # ICU MONITOR Intake & Output 08/06/17 08/07/17 08/08/17 06:59 06:59 06:59 Intake Total 850 370 120 Output Total 1230 2310 460 Balance -380 -1940 -340 Weight 102 kg 95.1 kg General appearance: PRESENT: no acute distress, cooperative Head exam: PRESENT: atraumatic, normocephalic Eye exam: PRESENT: conjunctiva pink Ear exam: PRESENT: normal external ear exam Mouth exam: PRESENT: moist Neck exam: PRESENT: lymphadenopathy. ABSENT: full ROM Respiratory exam: PRESENT: prolonged expiratory phas, wheezes. ABSENT: decreased breath sounds, stridor Cardiovascular exam: PRESENT: irregular rhythm. ABSENT: tachycardia Pulses: PRESENT: normal radial pulses, normal dorsalis pedis pul Vascular exam: PRESENT: normal capillary refill GI/Abdominal exam: PRESENT: hypoactive bowel sounds, soft. ABSENT: distended, guarding, tenderness Rectal exam: PRESENT: deferred Extremities exam: ABSENT: calf tenderness, pedal edema Neurological exam: PRESENT: alert, awake, oriented to person, oriented to place , oriented to situation Psychiatric exam: PRESENT: anxious, depressed Skin exam: PRESENT: dry, intact, warm Results Laboratory Results: 08/07/17 03:56 08/07/17 03:56 08/07/17 08/07/17 03:56 03:56 WBC 6.6 RBC 3.66 L Hgb 10.9 L Hct 31.6 L MCV 86 MCH 29.9 MCHC 34.6 RDW 15.6 H Plt Count 136 L Seg Neutrophils % Not Reportable Lymphocytes % Not Reportable Monocytes % Not Reportable Eosinophils % Not Reportable Basophils % Not Reportable Absolute Neutrophils Not Reportable Absolute Lymphocytes Not Reportable Absolute Monocytes Not Reportable Absolute Eosinophils Not Reportable Absolute Basophils Not Reportable Sodium 144.7 Potassium 3.8 Chloride 106 Carbon Dioxide 30 Anion Gap 9 BUN 43 H Creatinine 1.20 Est GFR ( Amer) 53 L Est GFR (Non-Af Amer) 44 L Glucose 112 H Calcium 9.6 Magnesium 2.2 Total Bilirubin 0.2 AST 14 ALT 38 Alkaline Phosphatase 80 Total Protein 5.5 L Albumin 3.5 08/04/17 00:45 Sputum Gram Stain - Final 08/04/17 00:45 Sputum Sputum Culture - Final Pseudomonas Aeruginosa Staphylococcus Aureus Group F Beta Streptococcus Normal Catarina 08/03/17 08/04/17 08/04/17 18:45 01:13 07:39 Troponin I < 0.012 < 0.012 0.013 NT-Pro-B Natriuret Pep 08/05/17 04:09 Troponin I NT-Pro-B Natriuret Pep 982 H Impressions: Chest/Abdomen CTA 08/03/17 00:00 IMPRESSION: 1. No pulmonary emboli. 2. No evidence of acute infectious process. Chest X-Ray 08/03/17 12:39 IMPRESSION: Cardiomegaly. No acute findings. Assessment & Plan - Diagnosis (1) Diabetes mellitus Qualifiers: Diabetes mellitus type: type 2 Diabetes mellitus complication detail: with chronic kidney disease Diabetes mellitus intermediate card tender insulin use: with intermediate card tender use Chronic kidney disease stage: stage 3 (moderate) Is this a current diagnosis for this admission?: Yes Plan: Reasonably well-controlled. Continue detemir and lispro. Continue diabetic diet. (2) ARF (acute renal failure) Qualifiers: Acute renal failure type: unspecified Qualified Code(s): N17.9 - Acute kidney failure, unspecified Is this a current diagnosis for this admission?: Yes Plan: Kidney function has changed slightly and that her creatinine is up to 1.2 and her GFR is slightly reduced from several days ago. She is benefiting respiratory status espinosa from the diuresis. I am going to hold her Lasix today and consider giving her another dose of 40 mg IV tomorrow. It does help her clinically but, as I have explained to her, she is in a tough position in which her cardiopulmonary status improves with diuresis but her kidneys do not tolerated very well. (3) Acute and chronic respiratory failure with hypoxia Is this a current diagnosis for this admission?: Yes Plan: Overall improving. Continue current care. (4) Atrial fibrillation with rapid ventricular response Is this a current diagnosis for this admission?: Yes Plan: Rate controlled. No changes to be made now. (5) COPD exacerbation Is this a current diagnosis for this admission?: Yes Plan: Improving. Continue current care. (6) Chronic pain Qualifiers: Chronic pain type: chronic pain syndrome Qualified Code(s): G89.4 - Chronic pain syndrome Is this a current diagnosis for this admission?: Yes Plan: Stable, continue current care. (7) Constipation due to opioid therapy Is this a current diagnosis for this admission?: Yes Plan: Not severe, continue to help patient with daily bowel movements as possible. (8) Functional quadriplegia Is this a current diagnosis for this admission?: Yes Plan: On top of her functional quadriplegia she is feeling extremely weakened by the hospitalization. She is hoping for some kind of acute rehab before she goes home. I have spoken with her housing case manager and we are looking for an LTAC placement for her after discharge. (9) Heart failure Qualifiers: Heart failure type: diastolic Heart failure chronicity: chronic Qualified Code(s): I50.32 - Chronic diastolic (congestive) heart failure Is this a current diagnosis for this admission?: Yes Plan: Improving with Lasix. Continue cardiac meds. (10) Morbid (severe) obesity with alveolar hypoventilation Is this a current diagnosis for this admission?: Yes Plan: Continue CPAP and cardiac along with pulmonary meds. Weight loss is and unrealistic expectation. (11) Neck pain Is this a current diagnosis for this admission?: Yes Plan: Improving with as needed Flexeril, no changes to be made today. (12) Do not resuscitate Is this a current diagnosis for this admission?: Yes Plan: No change in the plan. She continues DNR, this was confirmed today. She does not want to be a "do not hospitalize "however. (13) Generalized anxiety disorder Is this a current diagnosis for this admission?: Yes Plan: Her anxiety is poorly controlled. She states that she used to be on Xanax and it helped her considerably. As this patient is moving closer to the end of life , I believe that her prognosis is 6 months or less, I am going to start her back on a low-dose of as needed Xanax. She is also on BuSpar and that could be increased as well. For now I am going to add a low-dose of Xanax. (14) Polypharmacy Is this a current diagnosis for this admission?: Yes Plan: reduce meds as possible - Time Time Spent with patient: 25-34 minutes Medications reviewed and adjusted accordingly: Yes Anticipated discharge: Other Within: when bed available - Inpatient Certification Based on my medical assessment, after consideration of the patient's comorbidities, presenting symptoms, or acuity I expect that the services needed warrant INPATIENT care.: Yes I certify that my determination is in accordance with my understanding of Medicare's requirements for reasonable and necessary INPATIENT services [42 CFR 412.3e].: Yes Medical Necessity: Significant Comorbidiites Make Outpatient Treatment Too Risky , Need Close Monitoring Due to Risk of Patient Decompensation, Risk of Complication if Not Cared For in Hospital
[2017-08-07] MEDS ORDERED: BUPROPION HCL 75 MG TABLET PO SCH (18:00)
[2017-08-07] MEDS ORDERED: ALPRAZOLAM 0.25 MG TABLET PO PRN (21:58)
[2017-08-07] MEDS: BACLOFEN 10 MG TABLET PO PRN (22:10)
[2017-08-07] MEDS: MONTELUKAST SODIUM 10 MG TABLET PO SCH (22:12)
[2017-08-07] MEDS: PHARMACY COMMUNICATION ORDER MC SCH (22:13)
[2017-08-08] MEDS: LEVALBUTEROL HCL NEB 1.25 MG/3 ML AMPUL NEB PRN ×4 (02:05→19:26)
[2017-08-08] MEDS: ACETYLCYSTEINE 10% NEB 400 MG/4 ML VIAL NEB SCH ×4 (02:06→19:26)
[2017-08-08 04:31] LABS: HEMATOCRIT 31.2 % (36.0-47.0); HEMOGLOBIN 10.6 g/dL (12.0-15.5); MEAN CORPUSCULAR HEMOGLOBIN 29.6 pg (27.0-33.4); MEAN CORPUSCULAR HGB CONC 34.1 g/dL (32.0-36.0); MEAN CORPUSCULAR VOLUME 87 fl (80-97); PLATELET COUNT 127 10^3/uL (150-450); RED BLOOD COUNT 3.58 10^6/uL (3.72-5.28); RED CELL DISTRIBUTION WIDTH 15.9 % (11.5-14.0)
[2017-08-08 04:38] LABS: ANION GAP 7 (5-19); BLOOD UREA NITROGEN 32 mg/dL (7-20); CALCIUM 9.4 mg/dL (8.4-10.2); CARBON DIOXIDE 29 mmol/L (22-30); CHLORIDE 108 mmol/L (98-107); GLUCOSE 103 mg/dL (75-110); MAGNESIUM 2.2 mg/dL (1.6-2.3); POTASSIUM 3.8 mmol/L (3.6-5.0); SODIUM 144.1 mmol/L (137-145)
[2017-08-08 05:17] LABS: ABSOLUTE LYMPHOCYTES# (MANUAL) 1.3 10^3/uL (0.5-4.7); ABSOLUTE MONOCYTES # (MANUAL) 0.8 10^3/uL (0.1-1.4); ABSOLUTE NEUTROPHILS# (MANUAL) 4.7 10^3/uL (1.7-8.2); BASOPHILS % (MANUAL) 0 % (0-2); EOSINOPHILS % (MANUAL) 3 % (0-6); LYMPHOCYTES % (MANUAL) 18 % (13-45); MONOCYTES % (MANUAL) 12 % (3-13); SEGMENTED NEUTROPHILS % (MAN) 67 % (42-78); TOTAL CELLS COUNTED 100
[2017-08-08 05:19] LABS: ANISOCYTOSIS SLIGHT; HYPOCHROMASIA SLIGHT; POLYCHROMASIA SLIGHT
[2017-08-08 05:20] LABS: PLATELET COMMENT DECREASED
[2017-08-08] MEDS: HYDRALAZINE HCL 25 MG TABLET PO SCH ×3 (06:43→22:38)
[2017-08-08] MEDS: HEPARIN SOD (PORCINE) 5,000 UNIT/ML 1 ML SYRINGE SUBCUT SCH ×3 (06:44→22:35)
[2017-08-08] MEDS: OXYCODONE HCL IR 5 MG TABLET PO PRN ×2 (06:59→22:40)
[2017-08-08] MEDS: CETIRIZINE 10 MG TABLET PO SCH (08:31)
[2017-08-08] MEDS: ASPIRIN 81 MG TABLET, ENT COATED PO SCH (08:35)
[2017-08-08] MEDS: BUSPIRONE HCL 10 MG TABLET PO SCH ×2 (08:36→22:39)
[2017-08-08] MEDS: PREGABALIN 75 MG CAPSULE PO SCH ×2 (08:37→22:39)
[2017-08-08] MEDS: FAMOTIDINE 20 MG TABLET PO SCH ×2 (08:37→18:46)
[2017-08-08] MEDS: GUAIFENESIN 600 MG TABLET.SA PO SCH ×2 (08:38→22:39)
[2017-08-08] MEDS: FLUTICASONE NASAL SPRAY 50 MCG/SPRY 120 SPRAY/16 GM NASL SCH (08:38)
[2017-08-08] MEDS: DULOXETINE HCL 30 MG CAPSULE.DR PO SCH (08:39)
[2017-08-08] MEDS: TAMSULOSIN HCL 0.4 MG CAP.SR.24H PO SCH (08:41)
[2017-08-08] MEDS: ROFLUMILAST 500 MCG TABLET PO SCH (08:42)
[2017-08-08] MEDS: LACTULOSE SYRUP 20 GM/30 ML UDCUP PO SCH ×2 (08:43→18:48)
[2017-08-08] MEDS: RANOLAZINE 500 MG TAB.SR.12H PO SCH ×2 (08:44→22:39)
[2017-08-08] MEDS: DOXYCYCLINE HYCLATE 100 MG TABLET PO SCH ×2 (08:45→22:38)
[2017-08-08] MEDS: SENNOSIDES/DOCUSATE 8.6-50 MG 1 EACH TABLET PO SCH ×3 (08:45→22:38)
[2017-08-08] MEDS: CEFPODOXIME 200 MG TABLET PO SCH ×2 (08:46→22:39)
[2017-08-08] MEDS: FLUTICASONE PROPIONATE HFA 110 MCG/PUFF 12 GM MDI IH SCH ×2 (08:47→22:36)
[2017-08-08] MEDS: TIOTROPIUM BROMIDE DPI 5 CAP/KIT (18 MCG/CAP) IH SCH (08:47)
[2017-08-08] MEDS: INSULIN DETEMIR 100 UNIT/ML 3 ML PEN SUBCUT SCH (08:48)
[2017-08-08] MEDS: PREDNISONE 10 MG TABLET PO SCH (08:53)
[2017-08-08] MEDS: METOPROLOL SUCCINATE 50 MG TAB.SR.24H PO SCH (08:54)
[2017-08-08] MEDS: LIDOCAINE 5% (700 MG) TRANSDERMAL ADH..PATCH TP SCH (09:00)
[2017-08-08] MEDS: FENTANYL 25 MCG/HR PATCH.TD72 TD SCH (09:00)
[2017-08-08] MEDS ORDERED: MAGNESIUM HYDROXIDE SUSP 30 ML UDCUP PO PRN (13:19)
[2017-08-08] MEDS ORDERED: NITROGLYCERIN 0.4 MG/TAB 25 TAB/BOTTLE SL PRN (13:19)
[2017-08-08] MEDS ORDERED: BENZONATATE 100 MG CAPSULE PO PRN (13:19)
--- NOTE | 2017-08-08 13:24 | PDOC PROGRESS REPORT ---
Subjective Progress Note for:: 08/08/17 Subjective:: 72 year old female with a past medical history of COPD Congestive heart failure Obstructive sleep apnea Hyperlipidemia Hypertension Chronic kidney disease stage III Multifocal focal atrial tachycardia Chronic headache Chronic pain Coronary artery disease, [place] Deep vein thrombosis Hypothyroidism GERD Depression Morbid obesity. Anemia of chronic disease Quadriplegia Cor pulmonale Adrenal insufficiency Echo in September 2016 showed low normal left ventricular systolic function and mild to moderate diastolic dysfunction peer She presented to the hospital on August 03 with with shortness of breath and palpitations. She was found to She was recently discharged from [facility] after being treated for septic shock acute, urinary tract infection, renal failure and COPD exacerbation. The patient had rapid atrial fibrillation and was given a bolus of Cardizem and started on a Cardizem drip. She was found to have diastolic CHF exacerbation and COPD exacerbation and hypoxia and was started on IV steroids nebulizers and supplemental oxygen. She has improved with diuretics and steroids and is currently awaiting LTAC placement. The patient is asking something to help with her constipation. She also says that she was on Wellbutrin as an outpatient and this will be restarted. Reason For Visit: COPD EXACERBATION,SINUS TACHYCARDIA,HEARD FAILURE Physical Exam Vital Signs: Temp Pulse Resp BP Pulse Ox 97.9 F 87 20 146/82 H 95 08/08/17 03:55 08/08/17 07:53 08/08/17 06:00 08/08/17 05:34 08/08/17 06:00 Pulse Oximeter Continuous Start: 08/03/17 16: 15 Freq: RTQ4 Status: Hold Document 08/05/17 00:00 STI (Rec: 08/05/17 01:09 STI [email or web address]) Pulse Oximetry Assessment Oxygen Saturation (92-100) 96 Oxygen Flow Rate (L/min) 3.0 Oxygen Delivery Method CPAP Fraction of Inspired Oxygen (FIO2) 32 Equipment Usage Equipment Standby Continuous SpO2 Machine # ICU MONITOR Intake & Output 08/07/17 08/08/17 08/09/17 06:59 06:59 06:59 Intake Total 370 1140 Output Total 2840 7205 Balance -1940 -385 Weight 95.1 kg 97.9 kg Additional comments: Obese, elderly female lying in bed not in acute distress Lungs: Coarse breath sounds bilaterally no wheezing heard normal respiratory effort Cardiac: S1-S2 regular no murmurs heard no peripheral edema no cyanosis no calf tenderness Abdomen: Soft, obese, no focal tenderness, normal bowel sounds Skin: Warm and dry Genitourinary: Deferred Barton present Neurologic: Speech is clear and fluent no facial droop no tremor Psychiatric awake alert and oriented 3 no mood and affect Results Laboratory Results: 08/08/17 03:58 08/08/17 03:58 08/08/17 08/08/17 03:58 03:58 WBC 7.0 RBC 3.58 L Hgb 10.6 L Hct 31.2 L MCV 87 MCH 29.6 MCHC 34.1 RDW 15.9 H Plt Count 127 L Seg Neutrophils % Not Reportable Lymphocytes % Not Reportable Monocytes % Not Reportable Eosinophils % Not Reportable Basophils % Not Reportable Absolute Neutrophils Not Reportable Absolute Lymphocytes Not Reportable Absolute Monocytes Not Reportable Absolute Eosinophils Not Reportable Absolute Basophils Not Reportable Sodium 144.1 Potassium 3.8 Chloride 108 H Carbon Dioxide 29 Anion Gap 7 BUN 32 H Creatinine 0.97 Est GFR ( Amer) > 60 Est GFR (Non-Af Amer) 56 L Glucose 103 Calcium 9.4 Magnesium 2.2 08/04/17 00:45 Sputum Gram Stain - Final 08/04/17 00:45 Sputum Sputum Culture - Final Pseudomonas Aeruginosa Staphylococcus Aureus Group F Beta Streptococcus Normal Catarina 08/03/17 08/04/17 08/04/17 18:45 01:13 07:39 Troponin I < 0.012 < 0.012 0.013 NT-Pro-B Natriuret Pep 08/05/17 04:09 Troponin I NT-Pro-B Natriuret Pep 982 H Impressions: Chest/Abdomen CTA 08/03/17 00:00 IMPRESSION: 1. No pulmonary emboli. 2. No evidence of acute infectious process. Chest X-Ray 08/03/17 12:39 IMPRESSION: Cardiomegaly. No acute findings. Assessment & Plan - Diagnosis (1) Diastolic CHF, acute on chronic Is this a current diagnosis for this admission?: Yes Plan: Improving with diuresis. (2) Acute and chronic respiratory failure with hypoxia Is this a current diagnosis for this admission?: Yes Plan: See below. (3) Atrial fibrillation with rapid ventricular response Is this a current diagnosis for this admission?: Yes Plan: Resolved. Continue metoprolol. (4) COPD exacerbation Is this a current diagnosis for this admission?: Yes Plan: Day 4 of Cefpodoxime, continue steroid taper supplemental oxygen and bronchodilator nebulizers. (5) Chronic pain Qualifiers: Chronic pain type: chronic pain syndrome Qualified Code(s): G89.4 - Chronic pain syndrome Is this a current diagnosis for this admission?: Yes Plan: Continue outpatient opiates. (7) Diabetes mellitus type II, controlled Qualifiers: Diabetes mellitus complication status: with hyperglycemia Diabetes mellitus residential insulin use: with moth exterminator use Qualified Code(s): E11.65 - Type 2 diabetes mellitus with hyperglycemia; Z79.4 - watermaster (current) use of insulin; Z79.4 - watermaster (current) use of insulin; Z79.4 - senior care ( current) use of insulin; Z79.4 - watermaster (current) use of insulin Is this a current diagnosis for this admission?: Yes Plan: Levemir and sliding scale. (8) Functional quadriplegia Is this a current diagnosis for this admission?: Yes Plan: Will need LTAC upon discharge. (9) Gastroesophageal reflux disease Qualifiers: Esophagitis presence: without esophagitis Qualified Code(s): K21.9 - Gastro -esophageal reflux disease without esophagitis Is this a current diagnosis for this admission?: Yes Plan: On Pepcid (10) HTN (hypertension) Qualifiers: Hypertension type: essential hypertension Qualified Code(s): I10 - Essential (primary) hypertension Is this a current diagnosis for this admission?: Yes Plan: Continue metoprolol. (11) Sleep apnea Qualifiers: Sleep apnea type: obstructive Qualified Code(s): G47.33 - Obstructive sleep apnea (adult) (pediatric) (12) Anemia, chronic disease Is this a current diagnosis for this admission?: Yes (13) CKD (chronic kidney disease), stage III Is this a current diagnosis for this admission?: Yes (15) Generalized anxiety disorder Is this a current diagnosis for this admission?: Yes (16) History of pulmonary embolism Is this a current diagnosis for this admission?: Yes (17) Hypertension Qualifiers: Hypertension type: essential hypertension Qualified Code(s): I10 - Essential (primary) hypertension Is this a current diagnosis for this admission?: Yes (20) Opiate dependence, continuous Is this a current diagnosis for this admission?: Yes (21) Polypharmacy Is this a current diagnosis for this admission?: Yes - Time Time Spent with patient: 35 or more minutes
[2017-08-08] MEDS: CYCLOBENZAPRINE HCL 10 MG TABLET PO PRN (14:41)
[2017-08-08] MEDS ORDERED: (PENDING PHARMACY ID) (Ranitidine Hcl [Zantac 150 Mg Tablet] 150 MG) PO SCH (18:00)
[2017-08-08] MEDS: LACTOBACILLUS ACIDOPHILUS 250 MG TAB PO SCH (18:43)
[2017-08-08] MEDS: DOCUSATE SODIUM 100 MG CAPSULE PO SCH (18:46)
[2017-08-08] MEDS: ASCORBIC ACID 500 MG TABLET PO SCH (18:47)
[2017-08-08] MEDS: FUROSEMIDE 20 MG TABLET PO SCH (18:47)
[2017-08-08] MEDS: INSULIN LISPRO 100 UNIT/ML 3 ML VIAL SUBCUT PRN ×2 (18:54→22:34)
[2017-08-08] MEDS ORDERED: PYRIDOXINE PO SCH (22:00)
[2017-08-08] MEDS ORDERED: MELATONIN PO SCH (22:00)
[2017-08-08] MEDS: MELATONIN 5 MG TABLET PO SCH (22:37)
[2017-08-08] MEDS: MONTELUKAST SODIUM 10 MG TABLET PO SCH (22:37)
[2017-08-08] MEDS: BUPROPION HCL 100 MG TABLET PO SCH (22:38)
[2017-08-08] MEDS: BACLOFEN 10 MG TABLET PO PRN (22:39)
[2017-08-08] MEDS: PHARMACY COMMUNICATION ORDER MC SCH (22:41)
[2017-08-09] MEDS: ACETYLCYSTEINE 10% NEB 400 MG/4 ML VIAL NEB SCH ×4 (02:22→19:57)
[2017-08-09] MEDS: LEVALBUTEROL HCL NEB 1.25 MG/3 ML AMPUL NEB PRN ×4 (02:22→19:58)
[2017-08-09] MEDS: ACETAMINOPHEN 325 MG TABLET PO PRN (03:28)
[2017-08-09] MEDS: CYCLOBENZAPRINE HCL 10 MG TABLET PO PRN (03:28)
[2017-08-09 04:37] LABS: HEMATOCRIT 33.1 % (36.0-47.0); HEMOGLOBIN 11.3 g/dL (12.0-15.5); MEAN CORPUSCULAR HEMOGLOBIN 29.5 pg (27.0-33.4); MEAN CORPUSCULAR VOLUME 87 fl (80-97); PLATELET COUNT 140 10^3/uL (150-450); RED BLOOD COUNT 3.82 10^6/uL (3.72-5.28); RED CELL DISTRIBUTION WIDTH 15.7 % (11.5-14.0); WHITE BLOOD COUNT 9.2 10^3/uL (4.0-10.5)
[2017-08-09 04:41] LABS: ANION GAP 8 (5-19); BLOOD UREA NITROGEN 30 mg/dL (7-20); CALCIUM 9.8 mg/dL (8.4-10.2); CARBON DIOXIDE 29 mmol/L (22-30); CHLORIDE 106 mmol/L (98-107); GLUCOSE 109 mg/dL (75-110); MAGNESIUM 2.1 mg/dL (1.6-2.3); POTASSIUM 3.7 mmol/L (3.6-5.0); SODIUM 142.8 mmol/L (137-145)
[2017-08-09 05:14] LABS: ABSOLUTE LYMPHOCYTES# (MANUAL) 0.8 10^3/uL (0.5-4.7); ABSOLUTE MONOCYTES # (MANUAL) 0.7 10^3/uL (0.1-1.4); ABSOLUTE NEUTROPHILS# (MANUAL) 7.6 10^3/uL (1.7-8.2); BASOPHILS % (MANUAL) 0 % (0-2); EOSINOPHILS % (MANUAL) 0 % (0-6); LYMPHOCYTES % (MANUAL) 7 % (13-45); MONOCYTES % (MANUAL) 8 % (3-13); SEGMENTED NEUTROPHILS % (MAN) 83 % (42-78); TOTAL CELLS COUNTED 100
[2017-08-09 05:18] LABS: PLATELET COMMENT DECREASED
[2017-08-09 05:19] LABS: ANISOCYTOSIS 1+; PLATELET LARGE PRESENT
[2017-08-09] MEDS: HYDRALAZINE HCL 25 MG TABLET PO SCH ×3 (06:36→21:22)
[2017-08-09] MEDS: HEPARIN SOD (PORCINE) 5,000 UNIT/ML 1 ML SYRINGE SUBCUT SCH ×3 (06:37→21:30)
[2017-08-09] MEDS: LANSOPRAZOLE 15 MG TAB.RAP.DR PO SCH (06:37)
[2017-08-09] MEDS: DULOXETINE HCL 30 MG CAPSULE.DR PO SCH (08:27)
[2017-08-09] MEDS: PREDNISONE 10 MG TABLET PO SCH (08:28)
[2017-08-09] MEDS: TAMSULOSIN HCL 0.4 MG CAP.SR.24H PO SCH (08:28)
[2017-08-09] MEDS: ROFLUMILAST 500 MCG TABLET PO SCH (08:28)
[2017-08-09] MEDS: LACTOBACILLUS ACIDOPHILUS 250 MG TAB PO SCH ×2 (08:29→18:13)
[2017-08-09] MEDS: PREGABALIN 75 MG CAPSULE PO SCH ×2 (08:30→21:24)
[2017-08-09] MEDS: CETIRIZINE 10 MG TABLET PO SCH (08:31)
[2017-08-09] MEDS: ASCORBIC ACID 500 MG TABLET PO SCH ×2 (08:31→18:13)
[2017-08-09] MEDS: GUAIFENESIN 600 MG TABLET.SA PO SCH ×2 (08:32→21:25)
[2017-08-09] MEDS: FAMOTIDINE 20 MG TABLET PO SCH ×2 (08:32→18:14)
[2017-08-09] MEDS: BUSPIRONE HCL 10 MG TABLET PO SCH ×2 (08:33→21:24)
[2017-08-09] MEDS: DOXYCYCLINE HYCLATE 100 MG TABLET PO SCH ×2 (08:33→21:27)
[2017-08-09] MEDS: BUPROPION HCL 100 MG TABLET PO SCH ×2 (08:33→21:27)
[2017-08-09] MEDS: METOPROLOL SUCCINATE 50 MG TAB.SR.24H PO SCH (08:34)
[2017-08-09] MEDS: ASPIRIN 81 MG TABLET, ENT COATED PO SCH (08:34)
[2017-08-09] MEDS: FLUTICASONE NASAL SPRAY 50 MCG/SPRY 120 SPRAY/16 GM NASL SCH (08:36)
[2017-08-09] MEDS: FLUTICASONE PROPIONATE HFA 110 MCG/PUFF 12 GM MDI IH SCH ×2 (08:37→21:05)
[2017-08-09] MEDS: RANOLAZINE 500 MG TAB.SR.12H PO SCH ×2 (08:38→21:25)
[2017-08-09] MEDS: CEFPODOXIME 200 MG TABLET PO SCH ×2 (08:38→21:25)
[2017-08-09] MEDS: LACTULOSE SYRUP 20 GM/30 ML UDCUP PO SCH ×2 (08:40→18:08)
[2017-08-09] MEDS: DOCUSATE SODIUM 100 MG CAPSULE PO SCH ×2 (08:40→18:14)
[2017-08-09] MEDS: SENNOSIDES/DOCUSATE 8.6-50 MG 1 EACH TABLET PO SCH ×2 (08:45→21:26)
--- NOTE | 2017-08-09 09:13 | PROGRESS NOTE E ---
Progress Note NAME: PORSHA WALDRON : 1945 AGE: 72Y DATE: 08/09/2017 ROOM: 609 SUBJECTIVE: The patient is currently lying in bed. She states that she does not feel as well as she did yesterday. The patient is complaining of full body pain and worsening neck pain. The patient has had no episodes of vomiting or diarrhea. The patient has been afebrile and blood pressure has been in a good range. The patient states that she does not feel her antihistamine is working anymore and would like to switch to Claritin from the [facility]. The patient also is agreeable to a flutter valve. The patient does not voice any other concerns at this time. REVIEW OF SYSTEMS: The rest of the review of systems is negative. MEDICATIONS: Medications have been reviewed. OBJECTIVE: GENERAL: The patient is a 72-year-old female who is awake and alert. She is oriented to person, place, time, and situation, does not appear to be distressed. VITAL SIGNS: As follows: Temperature is 97.3, pulse 69, respirations 21, blood pressure is 138/83, oxygen saturation is 97% on 2 L nasal cannula. SKIN: Warm and dry. No rash. She is not diaphoretic. HEENT: Pupils are reactive. Conjunctiva is pale. Mucous membranes appear moist. CARDIOVASCULAR: Heart is regular. No rub. CHEST: Rhonchorous throughout both lung mead, symmetrical, unlabored. ABDOMEN: Soft, nontender, nondistended. BACK: No CVA tenderness or sacral edema. EXTREMITIES: No clubbing, cyanosis, edema. PSYCHIATRIC: The patient is appropriate and at baseline. DIAGNOSTICS: Lab values are as follows. Hematology obtained on 08/09/2017: WBCs are 9.2, hemoglobin is 11.3, hematocrit is 33.1, platelet count is 140,000. Chemistry obtained on 08/09/2017: Sodium is 142, potassium 3.7, chloride is 106, carbon dioxide 29, BUN 30, creatinine is 0.94, glucose 109, calcium 9.8, magnesium is 2.1. IMPRESSION AND PLAN: 1. CHRONIC OBSTRUCTIVE PULMONARY DISEASE EXACERBATION. Will continue steroids as well as nebulizers and follow. 2. POLYMICROBIAL PNEUMONIA. Will continue current antibiotic coverage and encourage the use of a flutter valve. 3. CHRONIC DIASTOLIC DYSFUNCTION. The patient has no evidence of overt failure. 4. OBSTRUCTIVE SLEEP APNEA. Will continue CPAP. 5. HYPERLIPIDEMIA. Will continue the patient's home medication. 6. HYPERTENSION. Will continue the patient's home meds. 7. CHRONIC KIDNEY DISEASE, STAGE 3. Creatinine is at baseline. 8. MULTIFOCAL ATRIAL TACHYCARDIA. Continue char agents. 9. CHRONIC PAIN WITH SUBSEQUENT OPIATE DEPENDENCY. Will continue the patient's home dosages. 10. CORONARY ARTERY DISEASE. Continue the patient's home medication. 11. HYPOTHYROIDISM. Continue levothyroxine. 12. GASTROESOPHAGEAL REFLUX DISEASE. Will continue medication. 13. DEPRESSION. Will continue home meds. 14. MORBID OBESITY WITH A BMI OF 39. The patient has actually lost some weight. 15. ANEMIA OF CHRONIC DISEASE, OVERALL STABLE. 16. FUNCTIONAL QUADRIPLEGIA. The patient has been bedridden. 17. COR PULMONALE. The patient has no evidence of overt failure. 18. ADRENAL INSUFFICIENCY. The patient is on chronic steroids. DISPOSITION: THE PATIENT IS A DO NOT RESUSCITATE/DO NOT INTUBATE. The patient is currently awaiting transfer to an LTAC. Time spent on this followup, including assessment/plan, physical examination, patient education, review of records, is 40 minutes. DICTATING PHYSICIAN: PAXTON FOFANA NP [id number] [id number] NOAMY#: [id number] ID: [id number] JOB#: [id number] ACCT: [id number] cc: >
[2017-08-09] MEDS: INSULIN DETEMIR 100 UNIT/ML 3 ML PEN SUBCUT SCH (10:41)
[2017-08-09] MEDS: TIOTROPIUM BROMIDE DPI 5 CAP/KIT (18 MCG/CAP) IH SCH (10:44)
[2017-08-09] MEDS: LIDOCAINE 5% (700 MG) TRANSDERMAL ADH..PATCH TP SCH (10:44)
[2017-08-09] MEDS: OXYCODONE HCL IR 5 MG TABLET PO SCH ×3 (10:51→21:23)
[2017-08-09] MEDS: LORATADINE 10 MG TABLET PO SCH (10:52)
[2017-08-09] MEDS: CYCLOBENZAPRINE HCL 10 MG TABLET PO SCH ×2 (13:04→21:26)
[2017-08-09] MEDS: FUROSEMIDE 20 MG TABLET PO SCH (18:13)
[2017-08-09] MEDS: BUTALB/ACETAMINOPHEN/CAFFEINE 1 TAB EACH PO PRN (18:19)
[2017-08-09] MEDS: BACLOFEN 10 MG TABLET PO PRN (18:20)
[2017-08-09] MEDS: INSULIN LISPRO 100 UNIT/ML 3 ML VIAL SUBCUT PRN ×2 (18:21→21:29)
[2017-08-09] MEDS: PHARMACY COMMUNICATION ORDER MC SCH (21:05)
[2017-08-09] MEDS: MELATONIN 5 MG TABLET PO SCH (21:23)
[2017-08-09] MEDS: MONTELUKAST SODIUM 10 MG TABLET PO SCH (21:26)
[2017-08-09] MEDS: ONDANSETRON HCL INJ/PF 4 MG/2 ML SDV IV PRN (22:29)
[2017-08-10] MEDS: ACETYLCYSTEINE 10% NEB 400 MG/4 ML VIAL NEB SCH ×4 (02:15→20:45)
[2017-08-10] MEDS: LEVALBUTEROL HCL NEB 1.25 MG/3 ML AMPUL NEB PRN ×4 (02:15→20:44)
[2017-08-10] MEDS: OXYCODONE HCL IR 5 MG TABLET PO SCH ×4 (03:13→21:12)
[2017-08-10] MEDS: HYDRALAZINE HCL 25 MG TABLET PO SCH ×3 (05:47→21:11)
[2017-08-10] MEDS: LANSOPRAZOLE 15 MG TAB.RAP.DR PO SCH (05:48)
[2017-08-10] MEDS: CYCLOBENZAPRINE HCL 10 MG TABLET PO SCH ×3 (05:48→21:11)
[2017-08-10] MEDS: BACLOFEN 10 MG TABLET PO PRN (05:48)
[2017-08-10] MEDS: HEPARIN SOD (PORCINE) 5,000 UNIT/ML 1 ML SYRINGE SUBCUT SCH ×3 (05:49→21:10)
--- NOTE | 2017-08-10 09:29 | PROGRESS NOTE E ---
Progress Note NAME: PORSHA WALDRON : 1945 AGE: 72Y DATE: 08/10/2017 ROOM: 609 SUBJECTIVE: The patient is currently lying in bed. She states she feels a little better than yesterday, but states she would feel much better if her Lyrica was 3 times a day and her Flexeril was 10 mg instead of 5. I went back and looked the patient's Med-Req and this indeed what she takes from here. The patient has had no reported episodes of vomiting, no diarrhea. The patient still has a wet congested cough. The patient has been afebrile. Blood pressure has been in a good range and the patient does not voice any other concerns at this time. REVIEW OF SYSTEMS: The rest of the review of systems is negative. MEDICATIONS: Medications have been reviewed. OBJECTIVE: GENERAL: The patient is a 72-year-old female who is awake, alert and oriented to person, place, time, and situation. She is verbal, conversational, does not appear to be in any acute distress. VITAL SIGNS: As follows: Temperature is 98.6, pulse 75, respirations 22, blood pressure is 116/59, oxygen saturation is 93% on 2 L nasal cannula. SKIN: Warm and dry. No rash. She is not diaphoretic. HEENT: Pupils are reactive. No evidence of JVP. Mucous membranes appear moist. CARDIOVASCULAR: Heart is regular. No rub. CHEST: The patient does have rhonchorous breath sounds throughout both lung mead, symmetrical, unlabored. ABDOMEN: Soft, obese. No area of focal tenderness. EXTREMITIES: No clubbing, cyanosis, edema. GENITOURINARY: Barton is running clear yellow urine. DIAGNOSTICS: Lab values are as follows: Hematology obtained on 08/09/2017: WBC 9.2, hemoglobin 11.3, hematocrit 33.1, platelet count 140,000. Chemistry obtained on 08/09/2017: Sodium 142, potassium 3.7, chloride 106, carbon dioxide 29, BUN 30, creatinine 0.94, glucose 109, calcium 9.8, magnesium 2.1. IMPRESSION AND PLAN: 1. POLYMICROBIAL PNEUMONIA. Will continue current antibiotic coverage, encourage the use of a flutter valve and follow. 2. CHRONIC OBSTRUCTIVE PULMONARY DISEASE EXACERBATION. We will continue steroid, nebulizer. 3. CHRONIC DIASTOLIC DYSFUNCTION. The patient has no evidence of failure at this time. 4. OBSTRUCTIVE SLEEP APNEA. Continue CPAP. 5. HYPERLIPIDEMIA. Continue home medication. 6. HYPERTENSION. Continue home meds. 7. CHRONIC KIDNEY DISEASE, STAGE 3. The patient's creatinine is at baseline. 8. MULTIFOCAL ATRIAL TACHYCARDIA. Continue her char agents. 9. CHRONIC PAIN WITH SUBSEQUENT OPIATE DEPENDENCY. Continue the patient's home dosages. 10. CORONARY ARTERY DISEASE. Continue the patient's home medication. 11. HYPOTHYROIDISM. Continue levothyroxine. 12. GASTROESOPHAGEAL REFLUX DISEASE. Continue the patient's home medication. 13. DEPRESSION. We will continue the patient's home meds. 14. MORBID OBESITY WITH A BODY MASS INDEX OF 39. The patient has actually appears to have lost some weight. 15. ANEMIA OF UNDERLYING CHRONIC DISEASE. Overall stable. 16. FUNCTIONAL QUADRIPLEGIA. The patient has been bedridden for years. Encourage upper body movements. 17. COR PULMONALE. Again, no evidence of failure. 18. ADRENAL INSUFFICIENCY. Continue chronic steroids. 19. POLYPHARMACY. DISPOSITION: THE PATIENT IS A DO NOT RESUSCITATE/DO NOT INTUBATE. The patient is currently awaiting transfer to an LTAC on Saturday. Time spent on this followup, including physical examination, patient education, review of records, is 20 minutes. DICTATING PHYSICIAN: PAXTON FOFANA NP [id number] [id number] NOAMY#: [id number] ID: [id number] JOB#: [id number] ACCT: [id number] cc: >
[2017-08-10] MEDS: DOCUSATE SODIUM 100 MG CAPSULE PO SCH ×2 (10:00→16:55)
[2017-08-10] MEDS: TAMSULOSIN HCL 0.4 MG CAP.SR.24H PO SCH (10:00)
[2017-08-10] MEDS: ROFLUMILAST 500 MCG TABLET PO SCH (10:00)
[2017-08-10] MEDS: DOXYCYCLINE HYCLATE 100 MG TABLET PO SCH ×2 (10:01→21:11)
[2017-08-10] MEDS: GUAIFENESIN 600 MG TABLET.SA PO SCH ×2 (10:01→21:11)
[2017-08-10] MEDS: FAMOTIDINE 20 MG TABLET PO SCH ×2 (10:01→16:54)
[2017-08-10] MEDS: BUPROPION HCL 100 MG TABLET PO SCH ×2 (10:02→21:11)
[2017-08-10] MEDS: ASCORBIC ACID 500 MG TABLET PO SCH ×2 (10:02→16:54)
[2017-08-10] MEDS: LORATADINE 10 MG TABLET PO SCH (10:02)
[2017-08-10] MEDS: ASPIRIN 81 MG TABLET, ENT COATED PO SCH (10:02)
[2017-08-10] MEDS: PREDNISONE 10 MG TABLET PO SCH (10:03)
[2017-08-10] MEDS: BUSPIRONE HCL 10 MG TABLET PO SCH ×2 (10:03→21:12)
[2017-08-10] MEDS: DULOXETINE HCL 30 MG CAPSULE.DR PO SCH (10:04)
[2017-08-10] MEDS: LACTOBACILLUS ACIDOPHILUS 250 MG TAB PO SCH ×2 (10:05→16:54)
[2017-08-10] MEDS: METOPROLOL SUCCINATE 50 MG TAB.SR.24H PO SCH (10:06)
[2017-08-10] MEDS: LACTULOSE SYRUP 20 GM/30 ML UDCUP PO SCH ×2 (10:10→16:53)
[2017-08-10] MEDS: CEFPODOXIME 200 MG TABLET PO SCH ×2 (10:11→22:10)
[2017-08-10] MEDS: FLUTICASONE NASAL SPRAY 50 MCG/SPRY 120 SPRAY/16 GM NASL SCH (10:11)
[2017-08-10] MEDS: LIDOCAINE 5% (700 MG) TRANSDERMAL ADH..PATCH TP SCH (10:12)
[2017-08-10] MEDS: FLUTICASONE PROPIONATE HFA 110 MCG/PUFF 12 GM MDI IH SCH ×2 (10:12→22:10)
[2017-08-10] MEDS: TIOTROPIUM BROMIDE DPI 5 CAP/KIT (18 MCG/CAP) IH SCH (10:13)
[2017-08-10] MEDS: RANOLAZINE 500 MG TAB.SR.12H PO SCH ×2 (10:14→21:12)
[2017-08-10] MEDS: INSULIN DETEMIR 100 UNIT/ML 3 ML PEN SUBCUT SCH (10:15)
[2017-08-10] MEDS: INSULIN LISPRO 100 UNIT/ML 3 ML VIAL SUBCUT PRN ×2 (11:24→21:18)
[2017-08-10] MEDS: ONDANSETRON HCL INJ/PF 4 MG/2 ML SDV IV PRN (12:14)
[2017-08-10] MEDS ORDERED: PREGABALIN 75 MG CAPSULE PO ONE (15:00)
[2017-08-10] MEDS: FUROSEMIDE 20 MG TABLET PO SCH (16:55)
[2017-08-10] MEDS: BUTALB/ACETAMINOPHEN/CAFFEINE 1 TAB EACH PO PRN (18:42)
[2017-08-10] MEDS: MONTELUKAST SODIUM 10 MG TABLET PO SCH (21:11)
[2017-08-10] MEDS: SENNOSIDES/DOCUSATE 8.6-50 MG 1 EACH TABLET PO SCH (21:11)
[2017-08-10] MEDS: MELATONIN 5 MG TABLET PO SCH (21:12)
[2017-08-10] MEDS: PREGABALIN 75 MG CAPSULE PO SCH (21:12)
[2017-08-10] MEDS: PHARMACY COMMUNICATION ORDER MC SCH (21:30)
[2017-08-11] MEDS: ACETYLCYSTEINE 10% NEB 400 MG/4 ML VIAL NEB SCH ×4 (01:57→20:32)
[2017-08-11] MEDS: LEVALBUTEROL HCL NEB 1.25 MG/3 ML AMPUL NEB PRN ×4 (01:58→20:32)
[2017-08-11] MEDS: OXYCODONE HCL IR 5 MG TABLET PO SCH ×4 (03:27→22:05)
[2017-08-11] MEDS: HYDRALAZINE HCL 25 MG TABLET PO SCH ×3 (05:19→22:02)
[2017-08-11] MEDS: LANSOPRAZOLE 15 MG TAB.RAP.DR PO SCH (05:19)
[2017-08-11] MEDS: CYCLOBENZAPRINE HCL 10 MG TABLET PO SCH ×3 (05:19→22:05)
[2017-08-11] MEDS: PREGABALIN 75 MG CAPSULE PO SCH ×3 (05:19→22:07)
[2017-08-11] MEDS: HEPARIN SOD (PORCINE) 5,000 UNIT/ML 1 ML SYRINGE SUBCUT SCH ×3 (05:20→22:00)
[2017-08-11 05:36] LABS: HEMOGLOBIN 10.6 g/dL (12.0-15.5); MEAN CORPUSCULAR HEMOGLOBIN 29.7 pg (27.0-33.4); MEAN CORPUSCULAR HGB CONC 34.2 g/dL (32.0-36.0); MEAN CORPUSCULAR VOLUME 87 fl (80-97); PLATELET COUNT 136 10^3/uL (150-450); RED BLOOD COUNT 3.57 10^6/uL (3.72-5.28); RED CELL DISTRIBUTION WIDTH 15.6 % (11.5-14.0); WHITE BLOOD COUNT 7.2 10^3/uL (4.0-10.5)
[2017-08-11 05:50] LABS: ANION GAP 10 (5-19); BLOOD UREA NITROGEN 30 mg/dL (7-20); CALCIUM 9.4 mg/dL (8.4-10.2); CARBON DIOXIDE 27 mmol/L (22-30); CHLORIDE 106 mmol/L (98-107); GLUCOSE 103 mg/dL (75-110); MAGNESIUM 1.9 mg/dL (1.6-2.3); POTASSIUM 3.6 mmol/L (3.6-5.0); SODIUM 142.6 mmol/L (137-145)
[2017-08-11] MEDS: LACTULOSE SYRUP 20 GM/30 ML UDCUP PO SCH ×2 (10:04→18:11)
[2017-08-11] MEDS: LIDOCAINE 5% (700 MG) TRANSDERMAL ADH..PATCH TP SCH (10:06)
[2017-08-11] MEDS: TIOTROPIUM BROMIDE DPI 5 CAP/KIT (18 MCG/CAP) IH SCH (10:06)
[2017-08-11] MEDS: LACTOBACILLUS ACIDOPHILUS 250 MG TAB PO SCH ×2 (10:07→18:10)
[2017-08-11] MEDS: BUSPIRONE HCL 10 MG TABLET PO SCH ×2 (10:07→22:07)
[2017-08-11] MEDS: BUPROPION HCL 100 MG TABLET PO SCH ×2 (10:07→22:07)
[2017-08-11] MEDS: DULOXETINE HCL 30 MG CAPSULE.DR PO SCH (10:08)
[2017-08-11] MEDS: ROFLUMILAST 500 MCG TABLET PO SCH (10:08)
[2017-08-11] MEDS: DOXYCYCLINE HYCLATE 100 MG TABLET PO SCH (10:08)
[2017-08-11] MEDS: LORATADINE 10 MG TABLET PO SCH (10:08)
[2017-08-11] MEDS: PREDNISONE 10 MG TABLET PO SCH (10:09)
[2017-08-11] MEDS: RANOLAZINE 500 MG TAB.SR.12H PO SCH ×2 (10:09→22:02)
[2017-08-11] MEDS: GUAIFENESIN 600 MG TABLET.SA PO SCH ×2 (10:09→22:02)
[2017-08-11] MEDS: TAMSULOSIN HCL 0.4 MG CAP.SR.24H PO SCH (10:10)
[2017-08-11] MEDS: FAMOTIDINE 20 MG TABLET PO SCH ×2 (10:10→18:10)
[2017-08-11] MEDS: METOPROLOL SUCCINATE 50 MG TAB.SR.24H PO SCH (10:10)
[2017-08-11] MEDS: CEFPODOXIME 200 MG TABLET PO SCH ×2 (10:11→22:01)
[2017-08-11] MEDS: ASCORBIC ACID 500 MG TABLET PO SCH ×2 (10:11→18:10)
[2017-08-11] MEDS: DOCUSATE SODIUM 100 MG CAPSULE PO SCH ×2 (10:12→18:10)
[2017-08-11] MEDS: FLUTICASONE NASAL SPRAY 50 MCG/SPRY 120 SPRAY/16 GM NASL SCH (10:12)
[2017-08-11] MEDS: ASPIRIN 81 MG TABLET, ENT COATED PO SCH (10:12)
[2017-08-11] MEDS: INSULIN DETEMIR 100 UNIT/ML 3 ML PEN SUBCUT SCH (10:15)
[2017-08-11] MEDS: FLUTICASONE PROPIONATE HFA 110 MCG/PUFF 12 GM MDI IH SCH ×2 (10:19→22:01)
[2017-08-11] MEDS: FENTANYL 25 MCG/HR PATCH.TD72 TD SCH (10:20)
[2017-08-11] MEDS: ONDANSETRON HCL INJ/PF 4 MG/2 ML SDV IV PRN (11:51)
[2017-08-11] MEDS: INSULIN LISPRO 100 UNIT/ML 3 ML VIAL SUBCUT PRN ×2 (16:14→22:01)
[2017-08-11] MEDS: FUROSEMIDE 20 MG TABLET PO SCH (18:09)
--- NOTE | 2017-08-11 18:33 | PROGRESS NOTE E ---
Progress Note NAME: PORSHA WALDRON : 1945 AGE: 72Y DATE: 08/11/2017 ROOM: 609 SUBJECTIVE: The patient is bill lying in bed. She states she feels okay today. The patient is looking forward to going to an LTAC stating that she got benefit from there last time she was there. She denies any nausea, vomiting, diarrhea, shortness of breath, dizziness, chest pain. Her pain appears to be well-controlled and the patient does not voice any other concerns at this time. REVIEW OF SYSTEMS: The rest of the review of systems negative. MEDICATIONS: Have been reviewed. OBJECTIVE: GENERAL: The patient is a 72-year-old female who is awake, alert, and oriented to person, time, place, situation. She is verbal, conversational. Does not appear to be in any acute distress. VITAL SIGNS: Temperature is 98.6, pulse 86, respirations 20, blood pressure is 114/63, oxygen saturation is 97% on 2 liters nasal cannula. SKIN: Pale, dry. No rash. She is not diaphoretic. HEENT: Pupils equal, round and reactive to light and accommodation. Conjunctivae are pink. No evidence of JVP. CARDIOVASCULAR: Heart is regular. No murmur or rub. CHEST: Rhonchorous throughout both lung mead. Symmetrical, unlabored. ABDOMEN: Soft, nontender, nondistended. BACK: No CVA tenderness, sacral edema. EXTREMITIES: No clubbing, cyanosis, edema. PSYCHIATRIC: Appropriate affect, pleasant mood. LABORATORY DATA: Hematology obtained on 08/11/2017; WBC is 7.2, hemoglobin 10.6, hematocrit is 31.0, platelet count is 136,000. Chemistry obtained on 08/11/2017; sodium is 142, potassium 3.6, chloride is 106, carbon dioxide 27, BUN 30, creatinine 2.06, glucose 103, calcium is 9.4, magnesium is 1.6. IMPRESSION AND PLAN: 1. POLYMICROBIAL PNEUMONIA. Will continue current antibiotic coverage. Encourage the use of flutter valve. 2. CHRONIC OBSTRUCTIVE PULMONARY DISEASE, EXACERBATION. Will continue steroid, nebulizer. 3. CHRONIC DIASTOLIC DYSFUNCTION. The patient has no evidence of overt failure at this time. 4. OBSTRUCTIVE SLEEP APNEA. Continue CPAP. 5. HYPERLIPIDEMIA. Continue home medication. 6. HYPERTENSION. Continue home meds. 7. CHRONIC KIDNEY DISEASE STAGE 3. Creatinine is at baseline. 8. MULTIFOCAL ATRIAL TACHYCARDIA. Continue char agents. 9. CHRONIC PAIN WITH SUBSEQUENT OPIATE DEPENDENCY CONTINUOUS. Will continue the patient's home medications. 10. CORONARY ARTERY DISEASE. Will continue the patient's home medications. 11. HYPOTHYROIDISM. Will continue levothyroxine. 12. GASTROESOPHAGEAL REFLUX DISEASE: Continue home meds. 13. DEPRESSION. Continue home meds. 14. MORBID OBESITY WITH A BMI OF 39. The patient actually has lost some weight. 15. ANEMIA OF UNDERLYING CHRONIC DISEASE, OVERALL STABLE. 16. FUNCTIONAL QUADRIPLEGIA. The patient has been bedridden for years. Encouraged upper body movements. 17. COR PULMONALE WITHOUT EVIDENCE OF ACUTE FAILURE. 18. ADRENAL INSUFFICIENCY. Continue chronic steroids. 19. POLYPHARMACY. CODE STATUS: The patient is a do not resuscitate/do not intubate. DISPOSITION: The patient is awaiting transfer to an LTAC, hopefully on Saturday. TIME SPENT: On this follow up, including assessment and plan, physical examination, patient education, review of records is 20 minutes. DICTATING PHYSICIAN: PAXTON FOFANA NP [id number] [id number] PHY#: [id number] ID: [id number] JOB#: [id number] ACCT: [id number] cc: > GIRMAD
[2017-08-11] MEDS: SENNOSIDES/DOCUSATE 8.6-50 MG 1 EACH TABLET PO SCH (22:05)
[2017-08-11] MEDS: MELATONIN 5 MG TABLET PO SCH (22:06)
[2017-08-11] MEDS: MONTELUKAST SODIUM 10 MG TABLET PO SCH (22:06)
[2017-08-11] MEDS: PHARMACY COMMUNICATION ORDER MC SCH (22:09)
[2017-08-12] MEDS: ACETYLCYSTEINE 10% NEB 400 MG/4 ML VIAL NEB SCH ×4 (01:29→21:17)
[2017-08-12] MEDS: LEVALBUTEROL HCL NEB 1.25 MG/3 ML AMPUL NEB PRN ×4 (01:29→21:17)
[2017-08-12] MEDS: OXYCODONE HCL IR 5 MG TABLET PO SCH ×4 (03:32→21:36)
[2017-08-12] MEDS: CYCLOBENZAPRINE HCL 10 MG TABLET PO SCH ×3 (05:45→21:36)
[2017-08-12] MEDS: HYDRALAZINE HCL 25 MG TABLET PO SCH ×3 (05:46→21:35)
[2017-08-12] MEDS: PREGABALIN 75 MG CAPSULE PO SCH ×3 (05:47→21:38)
[2017-08-12] MEDS: HEPARIN SOD (PORCINE) 5,000 UNIT/ML 1 ML SYRINGE SUBCUT SCH ×3 (05:47→21:38)
[2017-08-12] MEDS: LANSOPRAZOLE 15 MG TAB.RAP.DR PO SCH (05:47)
[2017-08-12] MEDS: DOCUSATE SODIUM 100 MG CAPSULE PO SCH ×2 (08:05→17:37)
[2017-08-12] MEDS: PREDNISONE 10 MG TABLET PO SCH (08:06)
[2017-08-12] MEDS: METOPROLOL SUCCINATE 50 MG TAB.SR.24H PO SCH (08:07)
[2017-08-12] MEDS: DULOXETINE HCL 30 MG CAPSULE.DR PO SCH (08:08)
[2017-08-12] MEDS: ASPIRIN 81 MG TABLET, ENT COATED PO SCH (08:09)
[2017-08-12] MEDS: BUSPIRONE HCL 10 MG TABLET PO SCH ×2 (08:09→21:35)
[2017-08-12] MEDS: LORATADINE 10 MG TABLET PO SCH (08:10)
[2017-08-12] MEDS: GUAIFENESIN 600 MG TABLET.SA PO SCH ×2 (08:10→21:37)
[2017-08-12] MEDS: BUPROPION HCL 100 MG TABLET PO SCH ×2 (08:10→21:37)
[2017-08-12] MEDS: LACTOBACILLUS ACIDOPHILUS 250 MG TAB PO SCH ×2 (08:11→17:37)
[2017-08-12] MEDS: FAMOTIDINE 20 MG TABLET PO SCH ×2 (08:13→17:37)
[2017-08-12] MEDS: FLUTICASONE NASAL SPRAY 50 MCG/SPRY 120 SPRAY/16 GM NASL SCH (08:13)
[2017-08-12] MEDS: INSULIN DETEMIR 100 UNIT/ML 3 ML PEN SUBCUT SCH (08:14)
[2017-08-12] MEDS: ASCORBIC ACID 500 MG TABLET PO SCH ×2 (08:15→17:37)
[2017-08-12] MEDS: FLUTICASONE PROPIONATE HFA 110 MCG/PUFF 12 GM MDI IH SCH ×2 (08:15→21:05)
[2017-08-12] MEDS: TIOTROPIUM BROMIDE DPI 5 CAP/KIT (18 MCG/CAP) IH SCH (08:16)
[2017-08-12] MEDS: LACTULOSE SYRUP 20 GM/30 ML UDCUP PO SCH ×2 (08:16→17:39)
[2017-08-12] MEDS: RANOLAZINE 500 MG TAB.SR.12H PO SCH ×2 (08:17→21:36)
[2017-08-12] MEDS: TAMSULOSIN HCL 0.4 MG CAP.SR.24H PO SCH (08:24)
[2017-08-12] MEDS: ROFLUMILAST 500 MCG TABLET PO SCH (08:24)
[2017-08-12] MEDS: LIDOCAINE 5% (700 MG) TRANSDERMAL ADH..PATCH TP SCH (10:48)
[2017-08-12] MEDS: FUROSEMIDE 20 MG TABLET PO SCH (17:38)
[2017-08-12] MEDS: INSULIN LISPRO 100 UNIT/ML 3 ML VIAL SUBCUT PRN ×2 (18:20→21:42)
[2017-08-12] MEDS: PHARMACY COMMUNICATION ORDER MC SCH (21:05)
[2017-08-12] MEDS: MONTELUKAST SODIUM 10 MG TABLET PO SCH (21:37)
[2017-08-12] MEDS: SENNOSIDES/DOCUSATE 8.6-50 MG 1 EACH TABLET PO SCH (21:37)
[2017-08-12] MEDS: MELATONIN 5 MG TABLET PO SCH (21:37)
[2017-08-13] MEDS: ACETYLCYSTEINE 10% NEB 400 MG/4 ML VIAL NEB SCH ×4 (01:27→20:45)
[2017-08-13] MEDS: OXYCODONE HCL IR 5 MG TABLET PO SCH ×4 (03:30→22:25)
[2017-08-13] MEDS: PREGABALIN 75 MG CAPSULE PO SCH ×3 (06:52→22:25)
[2017-08-13] MEDS: HEPARIN SOD (PORCINE) 5,000 UNIT/ML 1 ML SYRINGE SUBCUT SCH ×3 (06:53→22:29)
[2017-08-13] MEDS: HYDRALAZINE HCL 25 MG TABLET PO SCH ×3 (06:53→22:25)
[2017-08-13] MEDS: CYCLOBENZAPRINE HCL 10 MG TABLET PO SCH ×3 (06:53→22:27)
[2017-08-13] MEDS: LANSOPRAZOLE 15 MG TAB.RAP.DR PO SCH (06:53)
[2017-08-13] MEDS: LEVALBUTEROL HCL NEB 1.25 MG/3 ML AMPUL NEB PRN ×3 (08:47→20:44)
[2017-08-13] MEDS: METOPROLOL SUCCINATE 50 MG TAB.SR.24H PO SCH (10:30)
[2017-08-13] MEDS: BUSPIRONE HCL 10 MG TABLET PO SCH ×2 (10:30→22:25)
[2017-08-13] MEDS: FLUTICASONE PROPIONATE HFA 110 MCG/PUFF 12 GM MDI IH SCH ×2 (10:32→21:00)
[2017-08-13] MEDS: LACTOBACILLUS ACIDOPHILUS 250 MG TAB PO SCH ×2 (10:33→17:51)
[2017-08-13] MEDS: BUPROPION HCL 100 MG TABLET PO SCH ×2 (10:33→22:27)
[2017-08-13] MEDS: DULOXETINE HCL 30 MG CAPSULE.DR PO SCH (10:34)
[2017-08-13] MEDS: PREDNISONE 10 MG TABLET PO SCH (10:34)
[2017-08-13] MEDS: DOCUSATE SODIUM 100 MG CAPSULE PO SCH ×2 (10:35→17:51)
[2017-08-13] MEDS: GUAIFENESIN 600 MG TABLET.SA PO SCH ×2 (10:35→22:24)
[2017-08-13] MEDS: ROFLUMILAST 500 MCG TABLET PO SCH (10:36)
[2017-08-13] MEDS: TAMSULOSIN HCL 0.4 MG CAP.SR.24H PO SCH (10:36)
[2017-08-13] MEDS: ASPIRIN 81 MG TABLET, ENT COATED PO SCH (10:36)
[2017-08-13] MEDS: ASCORBIC ACID 500 MG TABLET PO SCH ×2 (10:36→17:51)
[2017-08-13] MEDS: RANOLAZINE 500 MG TAB.SR.12H PO SCH ×2 (10:37→22:27)
[2017-08-13] MEDS: FAMOTIDINE 20 MG TABLET PO SCH ×2 (10:37→17:51)
[2017-08-13] MEDS: LORATADINE 10 MG TABLET PO SCH (10:37)
[2017-08-13] MEDS: LIDOCAINE 5% (700 MG) TRANSDERMAL ADH..PATCH TP SCH (10:38)
[2017-08-13] MEDS: FLUTICASONE NASAL SPRAY 50 MCG/SPRY 120 SPRAY/16 GM NASL SCH (10:38)
[2017-08-13] MEDS: LACTULOSE SYRUP 20 GM/30 ML UDCUP PO SCH ×2 (10:39→17:50)
[2017-08-13] MEDS: TIOTROPIUM BROMIDE DPI 5 CAP/KIT (18 MCG/CAP) IH SCH (10:39)
[2017-08-13] MEDS: INSULIN DETEMIR 100 UNIT/ML 3 ML PEN SUBCUT SCH (11:05)
[2017-08-13] MEDS ORDERED: CEFEPIME 2 GM/D5W RTU 2 GM/50 ML RTUPB IV SCH (14:00)
[2017-08-13] MEDS: CEFEPIME HCL 2 GM in DEXTROSE 5%-WATER 100 ML IV SCH ×2 (14:35→22:28)
--- NOTE | 2017-08-13 15:30 | RADIOLOGY REPORT (SQ) ---
EXAM DESCRIPTION: PICC INSERTION; U/S GUIDE FOR VASCULAR ACCESS COMPLETED DATE/TIME: 08/13/2017 2:29 pm REASON FOR STUDY: Need for nursing home IV ABX; [facility] IV ABX COMPARISON: None. FLUOROSCOPY TIME: The procedure was performed in the intensive care unit using the portable x-ray ma nessae. No fluoroscopy done. 2 images saved to PACS. TECHNIQUE: Fluoroscopic and ultrasound guided PICC placement. LIMITATIONS: None. PROCEDURE: After written consent and assessment were obtained, ultrasound was used on the patient's right arm for PICC access. The right arm was prepped and draped in a sterile fashion along with the u ltrasound probe. The entry site was anesthetized with 1% lidocaine. A 21 gauge 7 cm needle was advanc ed through the skin and into the basilic vein under live ultrasound guidance. An ultrasound image wa s saved to PACS confirming access site. A .018 guide wire was then inserted through the needle and i nto the venous system. The needle was the removed and an 11 blade scalpel was used to make a 1cm skin incision. A 5 fr peel-away sheath was advanced over the wire and into the venous system. A measurem ent was then made using the existing wire. The wire was then removed and trimmed. The PICC was advanc ed through the peel-away sheath and into the venous system. The peel-away sheath was removed and the catheter was adhered to the patients arm with a stat lock. The catheter was then aspirated and flushe d and a sterile bandage was placed over the access site. Portable chest x-ray was saved to PACS conf irming the catheter tip within the superior vena cava. IMPRESSION: SUCCESSFUL PLACEMENT OF A 5 FR DUAL LUMEN 34 CM PICC IN THE RIGHT BASILIC VEIN. COMMENT: Patient medication list reviewed: Yes- Quality ID# [id number]:Eligible professional attests to doc umenting in the medical record they obtained, updated, or reviewed the patient's current medications. . Quality ID 145: Final reports for procedures using fluoroscopy that document radiation exposure jl artemio, or exposure time and number of fluorographic images (if radiation exposure indices are not avail able) Quality ID #76: The patient was prepped and draped using maximum sterile barrier technique including cap, mask, sterile gown, sterile gloves, a large sterile sheet, hand hygiene, and 2% Chlorhexidine fo r cutaneous antisepsis. When ultrasound is used, sterile ultrasound techniques are followed requiring sterile gel and sterile probes. TECHNICAL DOCUMENTATION: JOB ID: [id number] [employer] [facility] [employer]- All Rights Reserved
--- NOTE | 2017-08-13 15:30 | RADIOLOGY REPORT (SQ) ---
EXAM DESCRIPTION: PICC INSERTION; U/S GUIDE FOR VASCULAR ACCESS COMPLETED DATE/TIME: 08/13/2017 2:29 pm REASON FOR STUDY: Need for snf IV ABX; SKILLED NURSING IV ABX COMPARISON: None. FLUOROSCOPY TIME: The procedure was performed in the intensive care unit using the portable x-ray ma nessae. No fluoroscopy done. 2 images saved to PACS. TECHNIQUE: Fluoroscopic and ultrasound guided PICC placement. LIMITATIONS: None. PROCEDURE: After written consent and assessment were obtained, ultrasound was used on the patient's right arm for PICC access. The right arm was prepped and draped in a sterile fashion along with the u ltrasound probe. The entry site was anesthetized with 1% lidocaine. A 21 gauge 7 cm needle was advanc ed through the skin and into the basilic vein under live ultrasound guidance. An ultrasound image wa s saved to PACS confirming access site. A .018 guide wire was then inserted through the needle and i nto the venous system. The needle was the removed and an 11 blade scalpel was used to make a 1cm skin incision. A 5 fr peel-away sheath was advanced over the wire and into the venous system. A measurem ent was then made using the existing wire. The wire was then removed and trimmed. The PICC was advanc ed through the peel-away sheath and into the venous system. The peel-away sheath was removed and the catheter was adhered to the patients arm with a stat lock. The catheter was then aspirated and flushe d and a sterile bandage was placed over the access site. Portable chest x-ray was saved to PACS conf irming the catheter tip within the superior vena cava. IMPRESSION: SUCCESSFUL PLACEMENT OF A 5 FR DUAL LUMEN 34 CM PICC IN THE RIGHT BASILIC VEIN. COMMENT: Patient medication list reviewed: Yes- Quality ID# [id number]:Eligible professional attests to doc umenting in the medical record they obtained, updated, or reviewed the patient's current medications. . Quality ID 145: Final reports for procedures using fluoroscopy that document radiation exposure jl artemio, or exposure time and number of fluorographic images (if radiation exposure indices are not avail able) Quality ID #76: The patient was prepped and draped using maximum sterile barrier technique including cap, mask, sterile gown, sterile gloves, a large sterile sheet, hand hygiene, and 2% Chlorhexidine fo r cutaneous antisepsis. When ultrasound is used, sterile ultrasound techniques are followed requiring sterile gel and sterile probes. TECHNICAL DOCUMENTATION: JOB ID: [id number] [employer] [facility] [employer]- All Rights Reserved
--- NOTE | 2017-08-13 17:08 | PDOC PROGRESS REPORT ---
Subjective Progress Note for:: 08/13/17 Subjective:: The patient is a 72-year-old female with multiple medical problems. She is essentially bedbound. The plan was for discharge to a long-term care facility. However, I was informed by our corporate meeting planner yesterday that she no longer meets criteria for LTAC. Today, the patient states that she thinks something is going on her lungs. She feels that her cough has not gotten worse but she feels more congested in her chest. She has been coughing up any blood. Reason For Visit: COPD EXACERBATION,SINUS TACHYCARDIA,HEARD FAILURE Physical Exam Vital Signs: Temp Pulse Resp BP Pulse Ox 97.5 F 72 18 116/97 H 98 08/13/17 12:00 08/13/17 14:55 08/13/17 14:55 08/13/17 14:31 08/13/17 14:55 Pulse Oximeter Continuous Start: 08/03/17 16: 15 Freq: RTQ4 Status: Hold Document 08/05/17 00:00 STI (Rec: 08/05/17 01:09 STI [email or web address]) Pulse Oximetry Assessment Oxygen Saturation (92-100) 96 Oxygen Flow Rate (L/min) 3.0 Oxygen Delivery Method CPAP Fraction of Inspired Oxygen (FIO2) 32 Equipment Usage Equipment Standby Continuous SpO2 Machine # ICU MONITOR Intake & Output 08/12/17 08/13/17 08/14/17 06:59 06:59 06:59 Intake Total 500 0 Output Total 1775 1600 350 Balance -1275 -1600 -350 Weight 95.2 kg 94.5 kg Additional comments: Patient is an obese white female. She is tachypneic but does not appear to be in any distress. She does not appear to be septic. Her cognition is normal. Her facial appearance is significant for obesity but otherwise unremarkable. Her lungs show coarse rales both anteriorly and posteriorly. Her cardiac exam is regular. I do not appreciate any murmurs, gallops or rubs. The abdomen is obese but soft. Bowel sounds are present in all 4 quadrants. She does not have guarding or rebound noted and there are no hernias or masses present. The lower extremities demonstrate nonpitting edema which is stable. The skin is clean, warm, dry and intact. Results Laboratory Results: 08/11/17 05:12 08/11/17 05:12 08/03/17 08/04/17 08/04/17 18:45 01:13 07:39 Troponin I < 0.012 < 0.012 0.013 NT-Pro-B Natriuret Pep 08/05/17 04:09 Troponin I NT-Pro-B Natriuret Pep 982 H Impressions: Chest/Abdomen CTA 08/03/17 00:00 IMPRESSION: 1. No pulmonary emboli. 2. No evidence of acute infectious process. Chest X-Ray 08/03/17 12:39 IMPRESSION: Cardiomegaly. No acute findings. Interventional Vascular Procedure 08/13/17 00:00 IMPRESSION: SUCCESSFUL PLACEMENT OF A 5 FR DUAL LUMEN 34 CM PICC IN THE RIGHT BASILIC VEIN. PICC Line Insertion 08/13/17 00:00 IMPRESSION: SUCCESSFUL PLACEMENT OF A 5 FR DUAL LUMEN 34 CM PICC IN THE RIGHT BASILIC VEIN. Assessment & Plan - Diagnosis (1) Pneumonia Is this a current diagnosis for this admission?: Yes (2) COPD with exacerbation Is this a current diagnosis for this admission?: Yes (3) Diastolic dysfunction Is this a current diagnosis for this admission?: Yes (4) Obstructive sleep apnea Is this a current diagnosis for this admission?: Yes (5) Multifocal atrial tachycardia Is this a current diagnosis for this admission?: Yes (6) Chronic pain Is this a current diagnosis for this admission?: Yes (7) Narcotic dependency, continuous Is this a current diagnosis for this admission?: Yes (8) Adrenal insufficiency Is this a current diagnosis for this admission?: Yes (9) Morbid obesity Is this a current diagnosis for this admission?: Yes (10) Anemia, chronic disease Is this a current diagnosis for this admission?: Yes - Time Time Spent with patient: 15-24 minutes - Inpatient Certification Medical Necessity: Need for IV Antibiotics - Plan Summary Plan Summary: At this point time the patient appears clinically stable. Unfortunately, the antibiotics that the patient received during her hospitalization will not cover the Pseudomonas that grew from the sputum culture 08/05/2017. During this hospitalization the patient received ceftriaxone on 08/04 - 08/05. She received Vantin 08/05/2017 through 08/11/2017 and she received doxycycline 08/04/2017 through 08/11/2017. Today, I started cefepime 2 g every 8 hours which is going to be given for 10 days.. She will continue therapy for obstructive sleep apnea with CPAP. Her multifocal atrial tachycardia is stable. She will remain on narcotics for chronic pain and narcotic dependency. We will continue therapy for adrenal insufficiency, hypothyroidism. We will monitor her anemia of chronic disease. The plan will be to discharge to [facility] on antibiotic therapy. Arrangements are being made.
[2017-08-13] MEDS ORDERED: NORMAL SALINE 10 ML SDV (AFTER EACH USE) IV PRN (17:40)
[2017-08-13] MEDS: FUROSEMIDE 20 MG TABLET PO SCH (17:50)
[2017-08-13] MEDS: INSULIN LISPRO 100 UNIT/ML 3 ML VIAL SUBCUT PRN (17:52)
[2017-08-13] MEDS: PHARMACY COMMUNICATION ORDER MC SCH (21:00)
[2017-08-13] MEDS: MONTELUKAST SODIUM 10 MG TABLET PO SCH (22:26)
[2017-08-13] MEDS: MELATONIN 5 MG TABLET PO SCH (22:27)
[2017-08-13] MEDS: NORMAL SALINE 10 ML SDV (SCHEDULED) IV SCH (22:29)
[2017-08-13] MEDS: SENNOSIDES/DOCUSATE 8.6-50 MG 1 EACH TABLET PO SCH (22:29)
[2017-08-14] MEDS: LEVALBUTEROL HCL NEB 1.25 MG/3 ML AMPUL NEB PRN ×4 (02:09→19:31)
[2017-08-14] MEDS: ACETYLCYSTEINE 10% NEB 400 MG/4 ML VIAL NEB SCH ×4 (02:09→19:31)
[2017-08-14] MEDS: OXYCODONE HCL IR 5 MG TABLET PO SCH ×2 (04:04→08:01)
[2017-08-14] MEDS: PREGABALIN 75 MG CAPSULE PO SCH (06:10)
[2017-08-14] MEDS: CEFEPIME HCL 2 GM in DEXTROSE 5%-WATER 100 ML IV SCH ×3 (06:11→23:16)
[2017-08-14] MEDS: LANSOPRAZOLE 15 MG TAB.RAP.DR PO SCH (06:11)
[2017-08-14] MEDS: CYCLOBENZAPRINE HCL 10 MG TABLET PO SCH ×3 (06:11→23:13)
[2017-08-14] MEDS: HYDRALAZINE HCL 25 MG TABLET PO SCH ×3 (06:11→23:14)
[2017-08-14] MEDS: HEPARIN SOD (PORCINE) 5,000 UNIT/ML 1 ML SYRINGE SUBCUT SCH ×3 (06:12→23:15)
[2017-08-14] MEDS: PREDNISONE 10 MG TABLET PO SCH (08:02)
[2017-08-14] MEDS: DOCUSATE SODIUM 100 MG CAPSULE PO SCH ×2 (08:02→17:28)
[2017-08-14] MEDS: FAMOTIDINE 20 MG TABLET PO SCH ×2 (08:03→17:28)
[2017-08-14] MEDS: ASPIRIN 81 MG TABLET, ENT COATED PO SCH (08:04)
[2017-08-14] MEDS: BUSPIRONE HCL 10 MG TABLET PO SCH ×2 (08:04→23:15)
[2017-08-14] MEDS: DULOXETINE HCL 30 MG CAPSULE.DR PO SCH (08:05)
[2017-08-14] MEDS: GUAIFENESIN 600 MG TABLET.SA PO SCH ×2 (08:05→23:13)
[2017-08-14] MEDS: LACTOBACILLUS ACIDOPHILUS 250 MG TAB PO SCH ×2 (08:06→17:27)
[2017-08-14] MEDS: LORATADINE 10 MG TABLET PO SCH (08:07)
[2017-08-14] MEDS: RANOLAZINE 500 MG TAB.SR.12H PO SCH ×2 (08:07→23:15)
[2017-08-14] MEDS: FLUTICASONE NASAL SPRAY 50 MCG/SPRY 120 SPRAY/16 GM NASL SCH (08:08)
[2017-08-14] MEDS: ASCORBIC ACID 500 MG TABLET PO SCH ×2 (08:09→17:28)
[2017-08-14] MEDS: BUPROPION HCL 100 MG TABLET PO SCH ×2 (08:09→23:14)
[2017-08-14] MEDS: FLUTICASONE PROPIONATE HFA 110 MCG/PUFF 12 GM MDI IH SCH ×2 (08:10→23:15)
[2017-08-14] MEDS: NORMAL SALINE 10 ML SDV (SCHEDULED) IV SCH ×2 (08:11→23:16)
[2017-08-14] MEDS: ROFLUMILAST 500 MCG TABLET PO SCH (08:12)
[2017-08-14] MEDS: LACTULOSE SYRUP 20 GM/30 ML UDCUP PO SCH ×2 (08:13→17:29)
[2017-08-14] MEDS: TIOTROPIUM BROMIDE DPI 5 CAP/KIT (18 MCG/CAP) IH SCH (09:29)
[2017-08-14] MEDS: METOPROLOL SUCCINATE 50 MG TAB.SR.24H PO SCH (09:30)
[2017-08-14] MEDS: TAMSULOSIN HCL 0.4 MG CAP.SR.24H PO SCH (09:35)
[2017-08-14] MEDS: INSULIN DETEMIR 100 UNIT/ML 3 ML PEN SUBCUT SCH (09:36)
[2017-08-14] MEDS: LIDOCAINE 5% (700 MG) TRANSDERMAL ADH..PATCH TP SCH (09:36)
[2017-08-14] MEDS: FENTANYL 25 MCG/HR PATCH.TD72 TD SCH (09:39)
[2017-08-14 11:00] LABS: ARTERIAL BLOOD BASE EXCESS 2.1 mmol/L; ARTERIAL BLOOD FIO2 2L; ARTERIAL BLOOD HCO3 28.6 mmol/L (20-26); ARTERIAL BLOOD O2 SATURATION 95.3 % (94-98); ARTERIAL BLOOD PH 7.35 (7.35-7.45); ARTERIAL BLOOD PO2 80.9 mmHg (80-100); ARTERIAL BLOOD TOTAL CO2 30.2 mmol/L (21-25)
--- NOTE | 2017-08-14 11:36 | RADIOLOGY REPORT (SQ) ---
EXAM DESCRIPTION: CHEST SINGLE VIEW COMPLETED DATE/TIME: 08/14/2017 10:55 am REASON FOR STUDY: [place] of [place] COMPARISON: 08/13/2017 NUMBER OF VIEWS: One view. TECHNIQUE: Single frontal radiographic image of the chest acquired. LIMITATIONS: Body habitus. FINDINGS: LUNGS AND PLEURA: Subsegmental airspace disease lateral to the left heart border. Right l tess is clear. No large effusions. MEDIASTINUM AND HEART: Stable heart size and mediastinal structures. SUPPORT DEVICES: Appropriate location without change. BONY STRUCTURES: No acute findings. HARDWARE: None. OTHER: No other significant finding. IMPRESSION: Atelectasis or early pneumonia left upper lobe.
--- NOTE | 2017-08-14 12:25 | PDOC PROGRESS REPORT ---
Subjective Progress Note for:: 08/14/17 Subjective:: The patient is a 72-year-old female who is essentially bedbound secondary to morbid obesity and chronic pain. She presented with acute pneumonia, COPD with exacerbation and an acute exacerbation of her diastolic congestive heart failure. During this hospitalization her sputum culture results have grown Pseudomonas aeruginosa, Staphylococcus aureus, group F beta Streptococcus. Initially, the patient received 2 days of IV ceftriaxone plus doxycycline . She was then converted to oral Vantin and doxycycline. He improved clinically. However, over the last 48 hours she has gotten progressively worse with increasing shortness of breath and worsening congestion. Therefore, she was started on IV cefepime therapy yesterday targeting the Pseudomonas species and her sputum culture. This morning, the patient was much more lethargic than her baseline. Her arterial blood gas demonstrated a mild respiratory acidosis and she has been placed back on BiPAP. The etiology of this change is likely an increase in the dose of her narcotics. We will hold all sedatives and narcotics today and reintroduce her medications tomorrow at a lower dose. Reason For Visit: COPD EXACERBATION,SINUS TACHYCARDIA,HEARD FAILURE Physical Exam Vital Signs: Temp Pulse Resp BP Pulse Ox 98.0 F 71 22 H 111/59 L 95 08/14/17 08:00 08/14/17 08:27 08/14/17 11:09 08/14/17 08:00 08/14/17 11:09 Pulse Oximeter Continuous Start: 08/03/17 16: 15 Freq: RTQ4 Status: Hold Document 08/05/17 00:00 STI (Rec: 08/05/17 01:09 STI [email or web address]) Pulse Oximetry Assessment Oxygen Saturation (92-100) 96 Oxygen Flow Rate (L/min) 3.0 Oxygen Delivery Method CPAP Fraction of Inspired Oxygen (FIO2) 32 Equipment Usage Equipment Standby Continuous SpO2 Machine # ICU MONITOR Intake & Output 08/13/17 08/14/17 08/15/17 06:59 06:59 06:59 Intake Total 0 133 Output Total 1600 775 Balance -1600 -642 Weight 94.5 kg 95.2 kg Additional comments: The patient was sleeping when I entered the room but did respond to verbal stimuli. She said that she was tired and could not wake up, but, she did answer all of my questions appropriately. Her facial appearance was unremarkable. Her lungs actually had less rhonchi and rales today. Her cardiac exam is regular without murmurs, gallops or rubs. The abdomen is obese. The abdomen is soft. Bowel sounds are present. The abdomen is otherwise benign. The lower extremities are also obese but she does not have any pitting edema present. She does not have any acute skin lesions or rashes present. Results Laboratory Results: 08/11/17 05:12 08/11/17 05:12 08/14/17 10:50 Carbonic Acid 1.60 H HCO3/H2CO3 Ratio 17:1 ABG pH 7.35 ABG pCO2 53.0 H ABG pO2 80.9 ABG HCO3 28.6 H ABG O2 Saturation 95.3 ABG Base Excess 2.1 FiO2 2L 08/03/17 08/04/17 08/04/17 18:45 01:13 07:39 Troponin I < 0.012 < 0.012 0.013 NT-Pro-B Natriuret Pep 08/05/17 04:09 Troponin I NT-Pro-B Natriuret Pep 982 H Impressions: Chest/Abdomen CTA 08/03/17 00:00 IMPRESSION: 1. No pulmonary emboli. 2. No evidence of acute infectious process. Interventional Vascular Procedure 08/13/17 00:00 IMPRESSION: SUCCESSFUL PLACEMENT OF A 5 FR DUAL LUMEN 34 CM PICC IN THE RIGHT BASILIC VEIN. PICC Line Insertion 08/13/17 00:00 IMPRESSION: SUCCESSFUL PLACEMENT OF A 5 FR DUAL LUMEN 34 CM PICC IN THE RIGHT BASILIC VEIN. Chest X-Ray 08/14/17 10:34 IMPRESSION: Atelectasis or early pneumonia left upper lobe. Assessment & Plan - Diagnosis (1) Pneumonia Is this a current diagnosis for this admission?: Yes (2) COPD with exacerbation Is this a current diagnosis for this admission?: Yes (3) Diastolic dysfunction Is this a current diagnosis for this admission?: Yes (4) Obstructive sleep apnea Is this a current diagnosis for this admission?: Yes (5) Multifocal atrial tachycardia Is this a current diagnosis for this admission?: Yes (6) Chronic pain Is this a current diagnosis for this admission?: Yes (7) Narcotic dependency, continuous Is this a current diagnosis for this admission?: Yes (8) Adrenal insufficiency Is this a current diagnosis for this admission?: Yes (9) Morbid obesity Is this a current diagnosis for this admission?: Yes (10) Anemia, chronic disease Is this a current diagnosis for this admission?: Yes - Time Time Spent with patient: 25-34 minutes - Inpatient Certification Medical Necessity: Significant Comorbidiites Make Outpatient Treatment Too Risky , Need Close Monitoring Due to Risk of Patient Decompensation, Need for IV Antibiotics, Risk of Complication if Not Cared For in Hospital - Plan Summary Plan Summary: The patient is currently receiving antibiotic therapy for Pseudomonas with cefepime 2 g every 8 hours. This will be continued for 10 days. She will continue bronchodilators and corticosteroid therapy for her COPD exacerbation. These will be weaned as tolerated. She will continue nocturnal BiPAP for obesity with hypoventilation and obstructive sleep apnea. We will also treat her with BiPAP as needed excessive sleepiness and/or acute respiratory acidosis. I will need to decrease the doses of her narcotics which likely led to the acute respiratory acidosis today. She will continue her usual medications for adrenal insufficiency. At this point time the patient is no longer stable for discharge. We will need to reevaluate plans for discharge tomorrow.
[2017-08-14 12:37] LABS: HEMATOCRIT 33.3 % (36.0-47.0); HEMOGLOBIN 10.9 g/dL (12.0-15.5); MEAN CORPUSCULAR HEMOGLOBIN 28.8 pg (27.0-33.4); MEAN CORPUSCULAR HGB CONC 32.8 g/dL (32.0-36.0); MEAN CORPUSCULAR VOLUME 88 fl (80-97); PLATELET COUNT 175 10^3/uL (150-450); RED BLOOD COUNT 3.79 10^6/uL (3.72-5.28); RED CELL DISTRIBUTION WIDTH 15.8 % (11.5-14.0); WHITE BLOOD COUNT 11.9 10^3/uL (4.0-10.5)
[2017-08-14 12:55] LABS: ANION GAP 8 (5-19); BLOOD UREA NITROGEN 28 mg/dL (7-20); CALCIUM 9.9 mg/dL (8.4-10.2); CARBON DIOXIDE 29 mmol/L (22-30); CHLORIDE 102 mmol/L (98-107); GLUCOSE 165 mg/dL (75-110); MAGNESIUM 2.2 mg/dL (1.6-2.3); POTASSIUM 4.5 mmol/L (3.6-5.0); SODIUM 139.4 mmol/L (137-145)
[2017-08-14 13:14] LABS: ABSOLUTE LYMPHOCYTES# (MANUAL) 1.5 10^3/uL (0.5-4.7); ABSOLUTE NEUTROPHILS# (MANUAL) 9.4 10^3/uL (1.7-8.2); BAND NEUTROPHILS % (MANUAL) 1 % (3-5); BASOPHILS % (MANUAL) 0 % (0-2); EOSINOPHILS % (MANUAL) 0 % (0-6); LYMPHOCYTES % (MANUAL) 13 % (13-45); METAMYELOCYTES % (MANUAL) 2 % (0); MONOCYTES % (MANUAL) 8 % (3-13); SEGMENTED NEUTROPHILS % (MAN) 75 % (42-78); TOTAL CELLS COUNTED 100
[2017-08-14 13:15] LABS: MYELOCYTES % (MANUAL) 1 % (0); PLATELET COMMENT ADEQUATE; TOXIC GRANULATION SLIGHT
[2017-08-14 13:16] LABS: ANISOCYTOSIS SLIGHT; HYPOCHROMASIA SLIGHT; POLYCHROMASIA SLIGHT
[2017-08-14] MEDS: FUROSEMIDE 20 MG TABLET PO SCH (17:29)
[2017-08-14] MEDS: MELATONIN 5 MG TABLET PO SCH (21:47)
[2017-08-14] MEDS: MONTELUKAST SODIUM 10 MG TABLET PO SCH (23:13)
[2017-08-14] MEDS: SENNOSIDES/DOCUSATE 8.6-50 MG 1 EACH TABLET PO SCH (23:14)
[2017-08-14] MEDS: PHARMACY COMMUNICATION ORDER MC SCH (23:17)
[2017-08-14] MEDS: ACETAMINOPHEN 325 MG TABLET PO PRN (23:20)
[2017-08-14] MEDS: BACLOFEN 10 MG TABLET PO PRN (23:21)
[2017-08-15] MEDS: ACETYLCYSTEINE 10% NEB 400 MG/4 ML VIAL NEB SCH ×4 (01:38→19:52)
[2017-08-15] MEDS: LEVALBUTEROL HCL NEB 1.25 MG/3 ML AMPUL NEB PRN ×4 (01:38→19:52)
[2017-08-15] MEDS: HEPARIN SOD (PORCINE) 5,000 UNIT/ML 1 ML SYRINGE SUBCUT SCH ×2 (05:39→13:56)
[2017-08-15] MEDS: LANSOPRAZOLE 15 MG TAB.RAP.DR PO SCH (05:46)
[2017-08-15] MEDS: CEFEPIME HCL 2 GM in DEXTROSE 5%-WATER 100 ML IV SCH ×2 (05:46→14:03)
[2017-08-15] MEDS: HYDRALAZINE HCL 25 MG TABLET PO SCH ×2 (05:47→13:59)
[2017-08-15] MEDS: CYCLOBENZAPRINE HCL 10 MG TABLET PO SCH (05:47)
[2017-08-15] MEDS: FLUTICASONE NASAL SPRAY 50 MCG/SPRY 120 SPRAY/16 GM NASL SCH (08:30)
[2017-08-15] MEDS: TIOTROPIUM BROMIDE DPI 5 CAP/KIT (18 MCG/CAP) IH SCH (08:31)
[2017-08-15] MEDS: FLUTICASONE PROPIONATE HFA 110 MCG/PUFF 12 GM MDI IH SCH (08:32)
[2017-08-15] MEDS: ASPIRIN 81 MG TABLET, ENT COATED PO SCH (08:33)
[2017-08-15] MEDS: ASCORBIC ACID 500 MG TABLET PO SCH ×2 (08:33→15:58)
[2017-08-15] MEDS: DOCUSATE SODIUM 100 MG CAPSULE PO SCH ×2 (08:33→15:58)
[2017-08-15] MEDS: FAMOTIDINE 20 MG TABLET PO SCH ×2 (08:35→15:58)
[2017-08-15] MEDS: LACTOBACILLUS ACIDOPHILUS 250 MG TAB PO SCH ×2 (08:35→15:58)
[2017-08-15] MEDS: RANOLAZINE 500 MG TAB.SR.12H PO SCH (08:36)
[2017-08-15] MEDS: BUPROPION HCL 100 MG TABLET PO SCH (08:37)
[2017-08-15] MEDS: GUAIFENESIN 600 MG TABLET.SA PO SCH (08:37)
[2017-08-15] MEDS: BUSPIRONE HCL 10 MG TABLET PO SCH (08:37)
[2017-08-15] MEDS: DULOXETINE HCL 30 MG CAPSULE.DR PO SCH (08:38)
[2017-08-15] MEDS: ROFLUMILAST 500 MCG TABLET PO SCH (08:38)
[2017-08-15] MEDS: TAMSULOSIN HCL 0.4 MG CAP.SR.24H PO SCH (08:39)
[2017-08-15] MEDS: LACTULOSE SYRUP 20 GM/30 ML UDCUP PO SCH ×2 (08:40→17:00)
[2017-08-15] MEDS: METOPROLOL SUCCINATE 50 MG TAB.SR.24H PO SCH (08:40)
[2017-08-15] MEDS: LORATADINE 10 MG TABLET PO SCH (08:42)
[2017-08-15] MEDS: NORMAL SALINE 10 ML SDV (SCHEDULED) IV SCH (08:44)
[2017-08-15] MEDS: INSULIN DETEMIR 100 UNIT/ML 3 ML PEN SUBCUT SCH (08:46)
[2017-08-15] MEDS ORDERED: PREDNISONE 20 MG TABLET PO SCH (10:00)
[2017-08-15] MEDS ORDERED: OXYCODONE HCL IR 5 MG TABLET PO PRN (10:24)
--- NOTE | 2017-08-15 10:29 | PDOC PROGRESS REPORT ---
Subjective Progress Note for:: 08/12/17 Subjective:: The patient is a 72-year-old female with multiple medical problems. She is essentially bedbound. The plan was for discharge to a long-term care facility. However, I was informed by our equipment planner today that she is not sick enough and therefore we will try to make arrangements to discharge the patient back to [facility]. Today, the patient had no specific complaints. She continues to have a productive cough. She feels that she is nearing her baseline. Reason For Visit: COPD EXACERBATION,SINUS TACHYCARDIA,HEARD FAILURE Physical Exam Vital Signs: Temp Pulse Resp BP Pulse Ox 97.7 F 62 12 131/74 H 99 08/12/17 03:43 08/12/17 14:24 08/12/17 16:00 08/12/17 13:04 08/12/17 16:00 Pulse Oximeter Continuous Start: 08/03/17 16: 15 Freq: RTQ4 Status: Hold Document 08/05/17 00:00 STI (Rec: 08/05/17 01:09 STI [email or web address]) Pulse Oximetry Assessment Oxygen Saturation (92-100) 96 Oxygen Flow Rate (L/min) 3.0 Oxygen Delivery Method CPAP Fraction of Inspired Oxygen (FIO2) 32 Equipment Usage Equipment Standby Continuous SpO2 Machine # ICU MONITOR Intake & Output 08/11/17 08/12/17 08/13/17 06:59 06:59 06:59 Intake Total 610 500 Output Total 2850 7108 300 Balance -1120 -1275 -882 Weight 94 kg 95.2 kg Additional comments: The patient is a morbidly obese female. She is lying in bed at 30. Her mentation appears to be appropriate and she answers questions appropriately. She does have a frequent cough particularly when asked to take deep breaths. Her cardiac exam is regular. I do not appreciate any murmurs, gallops or rubs. The lungs are noted to be coarse bilaterally both anteriorly and posteriorly. Her cardiac exam is regular without murmurs, gallops or rubs. The abdomen is obese but soft. Bowel sounds are noted in the lower quadrants. The lower extremities demonstrate trace to 1+ edema. The skin does not demonstrate any acute skin lesions or rashes. She does have some hyperpigmentation of the lower extremities. Results Laboratory Results: 08/11/17 05:12 08/11/17 05:12 08/03/17 08/04/17 08/04/17 18:45 01:13 07:39 Troponin I < 0.012 < 0.012 0.013 NT-Pro-B Natriuret Pep 08/05/17 04:09 Troponin I NT-Pro-B Natriuret Pep 982 H Impressions: Chest/Abdomen CTA 08/03/17 00:00 IMPRESSION: 1. No pulmonary emboli. 2. No evidence of acute infectious process. Chest X-Ray 08/03/17 12:39 IMPRESSION: Cardiomegaly. No acute findings. Assessment & Plan - Diagnosis (1) Pneumonia Is this a current diagnosis for this admission?: Yes (2) COPD with exacerbation Is this a current diagnosis for this admission?: Yes (3) Diastolic dysfunction Is this a current diagnosis for this admission?: Yes (4) Obstructive sleep apnea Is this a current diagnosis for this admission?: Yes (5) Multifocal atrial tachycardia Is this a current diagnosis for this admission?: Yes (6) Chronic pain Is this a current diagnosis for this admission?: Yes (7) Narcotic dependency, continuous Is this a current diagnosis for this admission?: Yes (8) Adrenal insufficiency Is this a current diagnosis for this admission?: Yes (9) Morbid obesity Is this a current diagnosis for this admission?: Yes (10) Anemia, chronic disease Is this a current diagnosis for this admission?: Yes - Time Time Spent with patient: 15-24 minutes - Plan Summary Plan Summary: At this point time the patient appears clinically stable. I will ensure that she has received appropriate therapy for the multi-drug pneumonia with Pseudomonas, staph aureus, group F beta Streptococcus. She will continue therapy for obstructive sleep apnea with CPAP. Her multifocal atrial tachycardia is stable. She will remain on narcotics for chronic pain and narcotic dependency. We will continue therapy for adrenal insufficiency, hypothyroidism. We will monitor her anemia of chronic disease.
--- NOTE | 2017-08-15 10:40 | PDOC TRANSFER SUMMARY ---
General Admission Date/PCP: 08/03/17 15:25 Resuscitation Status: Do Not Resuscitate - Transfer Diagnosis (1) Pneumonia Is this a current diagnosis for this admission?: Yes (2) COPD with exacerbation Is this a current diagnosis for this admission?: Yes (3) Diastolic dysfunction Is this a current diagnosis for this admission?: Yes (4) Obstructive sleep apnea Is this a current diagnosis for this admission?: Yes (5) Multifocal atrial tachycardia Is this a current diagnosis for this admission?: Yes (6) Chronic pain Is this a current diagnosis for this admission?: Yes (7) Narcotic dependency, continuous Is this a current diagnosis for this admission?: Yes (8) Adrenal insufficiency Is this a current diagnosis for this admission?: Yes (9) Morbid obesity Is this a current diagnosis for this admission?: Yes (10) Anemia, chronic disease Is this a current diagnosis for this admission?: Yes - Transfer Medications Home Medications: Acetaminophen [Tylenol 325 mg Tablet] 650 mg PO Q4HP PRN 07/16/17 Albuterol Sulfate [Proair HFA Inhalation Aerosol 8.5 gm MDI] 2 puff IH Q6HP PRN 07/16/17 Ascorbic Acid [Vitamin C 500 mg Tablet] 500 mg PO BID 07/16/17 Aspirin [Aspirin 81 mg Chewable Tablet] 81 mg PO DAILY 07/16/17 Baclofen [Baclofen 10 mg Tablet] 10 mg PO Q8HP PRN 07/16/17 Benzocaine/Menthol [Chloraseptic Sore Throat Lozenge] 1 lozenge PO Q1HP PRN Benzonatate [Tessalon Perles 100 mg Capsule] 200 mg PO Q8HP PRN 07/16/17 Biotin [Biotin 1 mg Tablet] 1 mg PO DAILYP PRN 07/16/17 Budesonide [Pulmicort 180 mcg Flexhaler] 2 puff IH Q12 07/16/17 Buspirone HCl [Buspar 5 mg Tablet] 5 mg PO Q12 07/16/17 Butalb/Acetaminophen/Caffeine [Fioricet (50-325-40 mg) Tablet] 2 tab PO Q6HP PRN MDD 6 TABS 07/16/17 Carboxymethylcellulose Sodium [Refresh Plus 0.5% Oph Soln 0.4 ml Droperette] 1 drop OU QIDP PRN 07/16/17 Docusate Sodium [Colace 100 mg Capsule] 100 mg PO BID 07/16/17 Duloxetine HCl [Cymbalta] 90 mg PO DAILY 07/16/17 Ergocalciferol (Vitamin D2) [Drisdol 50,000 unit (1.25MG) Capsule] 50,000 unit PO MO@1000 07/16/17 Fentanyl [Duragesic 25 mcg/hr Transdermal Patch] 1 each TD Q3D 07/16/17 Ferrous Sulfate [Feosol 325 mg Tablet] 325 mg PO BID 07/16/17 Fluticasone Propionate [Flonase Nasal [place] 50 Mcg/[place] 16 gm] 2 sprays NASL DAILY 07/16/17 Furosemide [Lasix 20 mg Tablet] 20 mg PO QPM 07/16/17 Furosemide [Lasix 40 mg Tablet] 40 mg PO QAM 07/16/17 Insulin Detemir [Levemir Flextouch] 30 unit SQ DAILY 07/16/17 Insulin Lispro [Humalog Insulin (Lispro) 100 unit/mL] 0 unit SUBCUT .SLD SCALE 07/16/17 Ipratropium/Albuterol Sulfate [Duoneb 3 ml Ampul] 3 ml NEB [id number] 07/16/17 Lactulose [Enulose 10 gm/15 mL Oral Solution] 10 gm PO BIDP PRN 07/16/17 Levalbuterol HCl [Xopenex Neb 0.63 mg/3 ml Ampul] 0.63 mg NEB RTQ8 07/16/17 Lidocaine [Lidoderm 5% (700 mg) Transdermal Patch] 3 patch TP DAILY 07/16/17 Linaclotide [Linzess 145 Mcg Capsule] 145 mcg PO DAILY 07/16/17 Loratadine [Claritin 10 mg Tablet] 10 mg PO DAILY 07/16/17 Magnesium Hydroxide [Milk of Magnesia 30 ml Udcup] 30 ml PO DAILYP PRN 07/16/17 Melatonin/Pyridoxine [Melatonin 5 mg Tablet] 10 mg PO QHS 07/16/17 Menthol [Biofreeze] 1 applic TP PRN PRN 07/16/17 Nitroglycerin [Nitrostat 0.4 mg (1/150 Gr) Tabs 25/Bottle] 1 tab SL Q5MP PRN Omeprazole 20 mg PO Q6AM 07/16/17 Oxycodone HCl [Oxy-Ir 5 mg Tablet] 10 mg PO Q6 07/16/17 Polyethylene Glycol 3350 [Miralax Powder 17 gm/Packet] 1 packet PO DAILY Potassium Chloride [Klor-Con 10 Meq Tablet.sa] 10 meq PO DAILY 07/16/17 Pregabalin [Lyrica 75 mg Capsule] 150 mg PO Q8 07/16/17 Promethazine HCl [Phenergan 25 mg Tablet] 25 mg PO Q6HP PRN 07/16/17 Ranitidine HCl [Zantac 150 mg Tablet] 150 mg PO BID 07/16/17 Ranolazine [Ranexa 500 mg Tab.sr] 500 mg PO Q12 07/16/17 Sennosides/Docusate 8.6-50 mg [Senna Plus Tablet] 1 tab PO QHS 07/16/17 Transfer Medications: Current Medications Acetaminophen (Tylenol 325 Mg Tablet) 650 mg PO Q4HP PRN PRN Reason: pain or temp greater than 101F Stop: 09/02/17 16:12 Last Admin: 08/14/17 23:20 Dose: 650 mg Acetaminophen/Butalbital/Caffeine (Fioricet (50-325-40 Mg) Tablet) 2 tab PO Q6HP PRN PRN Reason: FOR HEADACHE Stop: 09/07/17 13:18 Last Admin: 08/10/17 18:42 Dose: 2 tab Acetylcysteine (Mucomist 10% Neb 400 Mg/4 Ml Vial) 400 mg NEB RTQ6 [facility] Stop: 09/04/17 13:59 Last Admin: 08/15/17 09:08 Dose: 400 mg Artificial Tears (Refresh Plus 0.5% Oph Soln 0.4 Ml Droperette) 1 drop OU QIDP PRN Stop: 09/02/17 16:21 Ascorbic Acid (Vitamin C 500 Mg Tablet) 500 mg PO BID [facility] Stop: 09/07/17 17:59 Last Admin: 08/15/17 08:33 Dose: 500 mg Aspirin (Ecotrin 81 Mg Ec Tablet) 81 mg PO DAILY [facility] Stop: 09/03/17 09:59 Last Admin: 08/15/17 08:33 Dose: 81 mg Baclofen (Baclofen 10 Mg Tablet) 10 mg PO Q12HP PRN PRN Reason: MUSCLE SPASMS Stop: 09/02/17 23:07 Last Admin: 08/14/17 23:21 Dose: 10 mg Benzonatate (Tessalon Perles 100 Mg Capsule) 200 mg PO Q8HP PRN PRN Reason: COUGH Stop: 09/07/17 13:18 Bupropion HCl (Wellbutrin 100 Mg Tablet) 100 mg PO Q12 [facility] Stop: 09/07/17 21:59 Last Admin: 08/15/17 08:37 Dose: 100 mg Buspirone HCl (Buspar 10 Mg Tablet) 5 mg PO Q12 [facility] Stop: 09/02/17 21:59 Last Admin: 08/15/17 08:37 Dose: 5 mg Dextrose (Dextrose Inj 50% Syringe (25 Gm/50 Ml)) 12.5 gm IV PRN PRN; Protocol PRN Reason: FOR BG 50-69 IN ALERT PATIENT Stop: 09/02/17 16:24 Dextrose (Dextrose Inj 50% Syringe (25 Gm/50 Ml)) 25 gm IV PRN PRN; Protocol PRN Reason: PER PROTOCOL Stop: 09/02/17 16:24 Docusate Sodium (Colace 100 Mg Capsule) 100 mg PO BID [facility] Stop: 09/07/17 17:59 Last Admin: 08/15/17 08:33 Dose: 100 mg Duloxetine HCl (Cymbalta 30 Mg Capsule.Dr) 90 mg PO DAILY [facility] Stop: 09/03/17 09:59 Last Admin: 08/15/17 08:38 Dose: 90 mg Famotidine (Pepcid 20 Mg Tablet) 20 mg PO BID [facility] Stop: 09/07/17 17:59 Last Admin: 08/15/17 08:35 Dose: 20 mg Fluticasone Propionate (Flonase Nasal [place] 50 Mcg/[place] 16 Gm) 2 spray NASL DAILY [facility] Stop: 09/03/17 09:59 Last Admin: 08/15/17 08:30 Dose: 2 spray Fluticasone Propionate (Flovent Hfa 110 Mcg Inhalation Aerosol 12 Gm) 2 puff IH Q12 [facility] Stop: 09/04/17 21:59 Last Admin: 08/15/17 08:32 Dose: 2 puff Furosemide (Lasix 20 Mg Tablet) 20 mg PO QPM [facility] Stop: 09/07/17 17:59 Last Admin: 08/14/17 17:29 Dose: 20 mg Glucagon (Glucagen Inj 1 Mg Vial) 1 mg IM PRN PRN; Protocol PRN Reason: Evaluate for BG < 70 Stop: 09/02/17 16:24 Glucose (Glutose 40% Gel 15 Gm Tube) 15 gm PO PRN PRN; Protocol PRN Reason: FOR BG 50-69 IN ALERT PATIENT Stop: 09/02/17 16:24 Glucose (Glutose 40% Gel 15 Gm Tube) 30 gm PO PRN PRN; Protocol PRN Reason: FOR BG < 50 IN ALERT PATIENT Stop: 09/02/17 16:24 Guaifenesin (Mucinex Sr 600 Mg Tablet.Sa) 1,200 mg PO Q12 [facility] Stop: 09/02/17 21:59 Last Admin: 08/15/17 08:37 Dose: 1,200 mg Heparin Sodium (Porcine) (Heparin Inj 5,000 Units/Ml 1 Ml Syringe) 5,000 unit SUBCUT Q8 [facility] Stop: 09/02/17 21:59 Last Admin: 08/15/17 05:39 Dose: Not Given Heparin Sodium (Porcine) (Heparin Flush 10 Unit/Ml 5 Ml Disp.Syrg) 30 unit IV Q12 [facility] Stop: 09/12/17 21:59 Last Admin: 08/15/17 08:41 Dose: 30 unit Heparin Sodium (Porcine) (Heparin Flush 10 Unit/Ml 5 Ml Disp.Syrg) 30 unit IV .AFTER EACH USE PRN Stop: 09/12/17 17:39 Last Admin: 08/13/17 22:28 Dose: 30 unit Hydralazine HCl (Apresoline Inj/Pf 20 Mg/1 Ml Sdv) 10 mg IV Q6HP PRN Stop: 09/02/17 16:43 Hydralazine HCl (Apresoline 25 Mg Tablet) 25 mg PO Q8 [facility] Stop: 09/03/17 05:59 Last Admin: 08/15/17 05:47 Dose: 25 mg Cefepime HCl 2 gm/ Dextrose 100 mls @ 200 mls/hr IV Q8 [facility] Stop: 08/20/17 13:59 Last Admin: 08/15/17 05:46 Dose: 2 gm Insulin Detemir (Levemir Insulin 300 Units/3 Ml Insuln.Pen) 35 unit SUBCUT DAILY [facility] Stop: 09/05/17 09:59 Last Admin: 08/15/17 08:46 Dose: 35 unit Insulin Human Lispro (Humalog Insulin 100 Unit/1 Ml 3 Ml Vial) 0 - 12 unit SUBCUT ACHSP PRN; Protocol PRN Reason: PER PROTOCOL Stop: 09/02/17 16:24 Last Admin: 08/13/17 17:52 Dose: 4 unit Lactobacillus Acidophilus (Bacid 250 Mg Tablet) 500 mg PO BID [facility] Stop: 09/07/17 17:59 Last Admin: 08/15/17 08:35 Dose: 500 mg Lactulose (Cephulac Syrup 20 Gm/30 Ml Udcup) 10 gm PO BID [facility] Stop: 09/03/17 09:59 Last Admin: 08/15/17 08:40 Dose: 10 gm Lansoprazole (Prevacid 15 Mg Odt Tablet) 15 mg PO Q6AM [facility] Stop: 09/08/17 05:59 Last Admin: 08/15/17 05:46 Dose: 15 mg Levalbuterol HCl (Xopenex Neb 1.25 Mg/3 Ml Ampul) 1.25 mg NEB RTQ3HP PRN PRN Reason: SHORTNESS OF BREATH Stop: 09/02/17 16:20 Last Admin: 08/15/17 09:08 Dose: 1.25 mg Lidocaine (Lidoderm 5% (700 Mg) Transdermal Patch) 2 patch TP DAILY [facility] Stop: 09/03/17 09:59 Last Admin: 08/14/17 09:36 Dose: Not Given Loratadine (Claritin 10 Mg Tablet) 10 mg PO DAILY [facility] Stop: 09/08/17 09:59 Last Admin: 08/15/17 08:42 Dose: Not Given Magnesium Hydroxide (Milk Of Magnesia 30 Ml Udcup) 30 ml PO DAILYP PRN PRN Reason: FOR CONSTIPATION Stop: 09/07/17 13:18 Last Admin: 08/13/17 15:57 Dose: 30 ml Melatonin (Melatonin 5 Mg Tablet) 10 mg PO QHS [facility] Stop: 09/07/17 21:59 Last Admin: 08/14/17 21:47 Dose: Not Given Metoprolol Succinate (Toprol Xl 50 Mg Tab.Sr) 75 mg PO DAILY [facility] Stop: 09/04/17 09:59 Last Admin: 08/15/17 08:40 Dose: 75 mg Montelukast Sodium (Singulair 10 Mg Tablet) 10 mg PO QHS [facility] Stop: 09/03/17 21:59 Last Admin: 08/14/17 23:13 Dose: 10 mg Nitroglycerin (Nitrostat 0.4 Mg (1/150 Gr) Tabs 25/Bottle) 1 tab SL Q5MP PRN Stop: 09/07/17 13:18 Ondansetron HCl (Zofran Inj/Pf 4 Mg/2 Ml Sdv) 4 mg IV Q6HP PRN PRN Reason: FOR NAUSEA/VOMITING Stop: 09/02/17 16:12 Last Admin: 08/11/17 11:51 Dose: 4 mg Oxycodone HCl (Oxy-Ir 5 Mg Tablet) 5 mg PO Q8HP PRN Stop: 08/22/17 10:23 Patient Own Medication (Linaclotide) 145 mcg PO .DAILY [facility] Stop: 09/04/17 09:59 Pharmacy Profile Note (Medication Communication Order) 1 each MC QHS [facility] Stop: 09/04/17 21:59 Last Admin: 08/14/17 23:17 Dose: Not Given Prednisone (Deltasone 20 Mg Tablet) 40 mg PO DAILY [facility] Stop: 09/14/17 09:59 Last Admin: 08/15/17 08:36 Dose: 40 mg Promethazine HCl (Phenergan 25 Mg Tablet) 25 mg PO Q6HP PRN PRN Reason: FOR NAUSEA/VOMITING Stop: 09/04/17 09:24 Ranolazine (Ranexa 500 Mg Tab.Sr) 500 mg PO Q12 [facility] Stop: 09/03/17 09:59 Last Admin: 08/15/17 08:36 Dose: 500 mg Roflumilast (Daliresp 500 Mcg Tablet) 500 mcg PO DAILY [facility] Stop: 09/04/17 09:59 Last Admin: 08/15/17 08:38 Dose: 500 mcg Senna/Docusate Sodium (Senna Plus Tablet) 1 each PO QHS [facility] Stop: 09/07/17 21:59 Last Admin: 08/14/17 23:14 Dose: 1 each Sodium Chloride (Nacl 0.9% Inj/Pf 10 Ml Sdv) 10 ml IV Q12 [facility] Stop: 09/12/17 21:59 Last Admin: 08/15/17 08:44 Dose: 10 ml Sodium Chloride (Nacl 0.9% Inj/Pf 10 Ml Sdv) 10 ml IV .AFTER EACH USE PRN Stop: 09/12/17 17:39 Tamsulosin HCl (Flomax 0.4 Mg Cap.Sr) 0.4 mg PO DAILY [facility] Stop: 09/03/17 09:59 Last Admin: 08/15/17 08:39 Dose: 0.4 mg Tiotropium [place] (Spiriva Handihaler 5 Cap/Kit (18 Mcg/Cap)) 1 cap IH DAILY [facility] Stop: 09/03/17 09:59 Last Admin: 08/15/17 08:31 Dose: 1 cap - Allergies Allergies/Adverse Reactions: Sulfa (Sulfonamide Antibiotics) Allergy (Intermediate, Verified 08/03/17 22:20) adhesive tape Allergy (Verified 08/03/17 22:20) atorvastatin calcium [From Lipitor] Allergy (Verified 08/03/17 22:20) celecoxib [From Celebrex] Allergy (Verified 08/03/17 22:20) Hospital Course Hospital Course: History of Present Illness: PORSHA WALDRON is a 72 year old female with a past medical history of COPD, ROSETTA, CHF, hypertension, hyperlipidemia, chronic kidney disease stage III, atrial fibrillation, DC, DVT, hypothyroidism, GERD, depression, functional paraplegia, and morbid obesity who presents to the emergency department today with a complaint of dyspnea 3 days. The patient states that she was recently discharged from our facility on a prednisone taper and she felt fine during this time but the day following completion of the prednisone she had a sudden increase in dyspnea at rest and a productive cough. The patient also complains of palpitations, "I feel like my heart is in my throat." She denies fever, chills, myalgia, chest pain, orthopnea, and leg edema. Evaluation in the emergency department reveals mild anemia with a hemoglobin of 11.2 which is the patient's baseline, mild dehydration, and elevated proBNP to 1800, and a chest x-ray demonstrating cardiomegaly only with no acute findings. She is noted to have a heart rate of 155. She was provided a diltiazem bolus with appropriate heart rate response to 75. An EKG was obtained at that time capturing normal sinus rhythm with multiple premature atrial complexes and a incomplete left bundle branch block. At the time of my assessment, the patient' s heart rate had returned to the 150s. She is referred to the hospitalist service for admission. Hospital course: The patient was admitted for acute on chronic respiratory failure secondary to pneumonia and COPD with exacerbation. Her sputum culture grew Pseudomonas Aeruginosa, Staphylococcus aureus and Group F Beta Streptococcus. Initially, the patient was treated with ceftriaxone on 08/04/2017 through 10/2017. On she was placed on Vantin and doxycycline which were continued through 05/2018. Unfortunately, the patient started to develop increasing cough and congestion. The antibiotics that she was receiving were not covering the Pseudomonas. Therefore, on 08/13/2017 she was started on a 10 day course of cefepime. Chest x-ray performed on 08/14/2017 does demonstrate a new infiltrate in the left upper lobe. It is recommended that the patient have a repeat chest x-ray at the conclusion of therapy in about 10 days. The patient feels that she is nearing her baseline. Her diastolic dysfunction during this hospitalization has remained stable. The patient did have an episode of multifocal atrial tachycardia which is now controlled with metoprolol. The patient did have some somnolence yesterday with mild respiratory acidosis. Therefore, I discontinued the patient's Lyrica and Flexeril. I also decreased her dose and frequency of oxycodone. She is awake and communicative this morning. She is looking forward to being transferred to the long-term care facility. Physical Exam Vital Signs: Temp Pulse Resp BP Pulse Ox 98.2 F 74 21 H 120/67 96 08/15/17 08:00 08/15/17 08:00 08/15/17 10:00 08/15/17 08:30 08/15/17 10:00 Pulse Oximeter Continuous Start: 08/03/17 16: 15 Freq: RTQ4 Status: Hold Document 08/05/17 00:00 [facility] (Rec: 08/05/17 01:09 [id number] [id number]) Pulse Oximetry Assessment Oxygen Saturation (92-100) 96 Oxygen Flow Rate (L/min) 3.0 Oxygen Delivery Method CPAP Fraction of Inspired Oxygen (FIO2) 32 Equipment Usage Equipment Standby Continuous SpO2 Machine # ICU MONITOR Intake & Output 08/14/17 08/15/17 08/16/17 06:59 06:59 06:59 Intake Total 133 720 Output Total 775 500 Balance -642 220 Weight 95.2 kg 96.4 kg Additional comments: The patient is an obese white female. This morning, she was wide awake. She had no complaints except for some gas, but, she just had a normal formed bowel movement and was not complaining of any nausea or vomiting. Her mentation is appropriate. She follows commands. Her facial appearance is stable and unremarkable. Her lungs are in fact fairly clear today. She has decreased rhonchi. Her lungs have improved significantly over the last 48 hours. Her cardiac exam is regular without murmurs, gallops or rubs. The abdomen is obese but soft. Bowel sounds are present in all 4 quadrants. She does not have guarding or rebound noted and there are no hernias or masses present. The lower extremities are obese but there is no significant pitting edema. The skin is clean, warm, dry and intact. Results Laboratory Results: 08/14/17 12:25 08/14/17 12:25 08/14/17 08/14/17 08/14/17 10:50 12:25 12:25 WBC 11.9 H RBC 3.79 Hgb 10.9 L Hct 33.3 L MCV 88 MCH 28.8 MCHC 32.8 RDW 15.8 H Plt Count 175 Seg Neutrophils % Not Reportable Lymphocytes % Not Reportable Monocytes % Not Reportable Eosinophils % Not Reportable Basophils % Not Reportable Absolute Neutrophils Not Reportable Absolute Lymphocytes Not Reportable Absolute Monocytes Not Reportable Absolute Eosinophils Not Reportable Absolute Basophils Not Reportable Carbonic Acid 1.60 H HCO3/H2CO3 Ratio 17:1 ABG pH 7.35 ABG pCO2 53.0 H ABG pO2 80.9 ABG HCO3 28.6 H ABG O2 Saturation 95.3 ABG Base Excess 2.1 FiO2 2L Sodium 139.4 Potassium 4.5 Chloride 102 Carbon Dioxide 29 Anion Gap 8 BUN 28 H Creatinine 0.99 Est GFR ( Amer) > 60 Est GFR (Non-Af Amer) 55 L Glucose 165 H Calcium 9.9 Magnesium 2.2 08/03/17 08/04/17 08/04/17 18:45 01:13 07:39 Troponin I < 0.012 < 0.012 0.013 NT-Pro-B Natriuret Pep 08/05/17 04:09 Troponin I NT-Pro-B Natriuret Pep 982 H Impressions: Chest/Abdomen CTA 08/03/17 00:00 IMPRESSION: 1. No pulmonary emboli. 2. No evidence of acute infectious process. Interventional Vascular Procedure 08/13/17 00:00 IMPRESSION: SUCCESSFUL PLACEMENT OF A 5 FR DUAL LUMEN 34 CM PICC IN THE RIGHT BASILIC VEIN. PICC Line Insertion 08/13/17 00:00 IMPRESSION: SUCCESSFUL PLACEMENT OF A 5 FR DUAL LUMEN 34 CM PICC IN THE RIGHT BASILIC VEIN. Chest X-Ray 08/14/17 10:34 IMPRESSION: Atelectasis or early pneumonia left upper lobe. Plan Discharge Plan: The patient will be transferred to a extermination supervisor care facility: [facility] care. Time Spent: Greater than 30 Minutes
[2017-08-15] MEDS: LIDOCAINE 5% (700 MG) TRANSDERMAL ADH..PATCH TP SCH (11:05)
[2017-08-15 11:32] LABS: PATH REVIEW PATHOLOGIST REVIEWED
[2017-08-15] MEDS: BACLOFEN 10 MG TABLET PO PRN (15:59)
[2017-08-15] MEDS: FUROSEMIDE 20 MG TABLET PO SCH (17:00)
[2017-08-15] MEDS: ACETAMINOPHEN 325 MG TABLET PO PRN (20:08)
[2017-08-15 21:53] VITALS: BP 128/78
== END 2017-08-15 20:27 | DRG 190 ==
LOC: ER 12:34 → EH 15:25 → ICU 08-04 00:43
PROVIDERS: ADMIT Student in an Organized Health Care Education/Training Program; ATTEND Student in an Organized Health Care Education/Training Program
PROC: 3E0F73Z Introduction of Anti-inflammatory into Respiratory Tract, Via Natural or Artificial Opening (ICD-10-PCS; principal; 2017-08-03)
PROC: 5A09457 Assistance with Respiratory Ventilation, 24-96 Consecutive Hours, Continuous Positive Airway Pressure (ICD-10-PCS; 2017-08-04)
PROC: 02HV33Z Insertion of Infusion Device into Superior Vena Cava, Percutaneous Approach (ICD-10-PCS; 2017-08-13)
PROC: B548ZZA Ultrasonography of Superior Vena Cava, Guidance (ICD-10-PCS; 2017-08-13)
DX: J44.1 Chronic obstructive pulmonary disease with (acute) exacerbation (principal); J18.9 Pneumonia, unspecified organism; J96.21 Acute and chronic respiratory failure with hypoxia; J96.22 Acute and chronic respiratory failure with hypercapnia; I47.1 Supraventricular tachycardia; E27.40 Unspecified adrenocortical insufficiency; I50.32 Chronic diastolic (congestive) heart failure; I13.0 Hypertensive heart and chronic kidney disease with heart failure and stage 1 through stage 4 chronic kidney disease, or unspecified chronic kidney disease; N17.9 Acute kidney failure, unspecified; E66.2 Morbid (severe) obesity with alveolar hypoventilation; R00.0 Tachycardia, unspecified; Z66 Do not resuscitate; J44.0 Chronic obstructive pulmonary disease with (acute) lower respiratory infection; N18.3 Chronic kidney disease, stage 3 (moderate); E66.01 Morbid (severe) obesity due to excess calories; Z68.38 Body mass index [BMI] 38.0-38.9, adult; D63.1 Anemia in chronic kidney disease; E78.00 Pure hypercholesterolemia, unspecified; I48.91 Unspecified atrial fibrillation; E03.9 Hypothyroidism, unspecified; K21.9 Gastro-esophageal reflux disease without esophagitis; F32.9 Major depressive disorder, single episode, unspecified; F44.4 Conversion disorder with motor symptom or deficit; B96.5 Pseudomonas (aeruginosa) (mallei) (pseudomallei) as the cause of diseases classified elsewhere; B95.61 Methicillin susceptible Staphylococcus aureus infection as the cause of diseases classified elsewhere; B95.2 Enterococcus as the cause of diseases classified elsewhere; E11.22 Type 2 diabetes mellitus with diabetic chronic kidney disease; K44.9 Diaphragmatic hernia without obstruction or gangrene; G89.4 Chronic pain syndrome; M10.9 Gout, unspecified; M79.7 Fibromyalgia; F41.1 Generalized anxiety disorder; I25.10 Atherosclerotic heart disease of native coronary artery without angina pectoris; Z99.81 Dependence on supplemental oxygen; I27.81 Cor pulmonale (chronic); M54.2 Cervicalgia; K59.03 Drug induced constipation; T40.2X5A Adverse effect of other opioids, initial encounter; R51 Headache; I25.2 Old myocardial infarction; Z86.718 Personal history of other venous thrombosis and embolism; Z79.891 Long term (current) use of opiate analgesic; Z86.14 Personal history of Methicillin resistant Staphylococcus aureus infection; Z79.899 Other long term (current) drug therapy; Z86.73 Personal history of transient ischemic attack (TIA), and cerebral infarction without residual deficits; Z74.01 Bed confinement status; Z90.49 Acquired absence of other specified parts of digestive tract; Z90.710 Acquired absence of both cervix and uterus; Z87.891 Personal history of nicotine dependence; Z79.82 Long term (current) use of aspirin; Z79.4 Long term (current) use of insulin; Z79.52 Long term (current) use of systemic steroids; Z88.2 Allergy status to sulfonamides; Z88.8 Allergy status to other drugs, medicaments and biological substances; Z86.711 Personal history of pulmonary embolism; Z82.61 Family history of arthritis; Z83.3 Family history of diabetes mellitus; Z82.49 Family history of ischemic heart disease and other diseases of the circulatory system; Z82.3 Family history of stroke
CPT/HCPCS: 36415; 36569; 71045; 71046; 71275; 76937; 80048; 80053; 82803; 82962; 83735; 83880; 84443; 84484; 85025; 85027; 87070; 87077; 87186; 87205; 87804; 93005; 93010; 94660; 94667; 94668; 96365; 96375; 99291; G8978-GP; G8979-GP; J0692; J0696; J1642; J1644; J1815; J1940; J2405; J2920; J2930; J3475; J3490; J7512

== ENCOUNTER 2017-09-09 12:16 | Inpatient (IN) | payer MEDICARE, MEDICAID ==
[2017-09-09] MEDS ORDERED: NORMAL SALINE 1000 ML 1,000 ML IV ONE ×2 (12:29→14:58)
[2017-09-09] MEDS ORDERED: PIPERACILLIN/TAZOBACTAM 3.375 GM VIAL IV ONE (12:31)
[2017-09-09] MEDS ORDERED: VANCOMYCIN HCL INJ 1000 MG VIAL IV ONE (12:31)
[2017-09-09] MEDS ORDERED: NOREPINEPHRINE BITARTRATE INJ/PF 4 MG/4 ML SDV IV ONE ×2 (13:06→20:01)
[2017-09-09 13:10] LABS: ARTERIAL BLOOD BASE EXCESS 1.2 mmol/L; ARTERIAL BLOOD H2CO3 1.23 mmol/L (1.05-1.35); ARTERIAL BLOOD HCO3 25.8 mmol/L (20-26); ARTERIAL BLOOD O2 SATURATION 99.2 % (94-98); ARTERIAL BLOOD PCO2 40.8 mmHg (35-45); ARTERIAL BLOOD PH 7.42 (7.35-7.45); ARTERIAL BLOOD PO2 168.6 mmHg (80-100); ARTERIAL BLOOD TOTAL CO2 27.1 mmol/L (21-25)
[2017-09-09 13:12] LABS: ARTERIAL BLOOD FIO2 100%
[2017-09-09 13:13] LABS: HEMATOCRIT 31.3 % (36.0-47.0); MEAN CORPUSCULAR HEMOGLOBIN 28.8 pg (27.0-33.4); MEAN CORPUSCULAR VOLUME 90 fl (80-97); PLATELET COUNT 176 10^3/uL (150-450); RED BLOOD COUNT 3.48 10^6/uL (3.72-5.28); RED CELL DISTRIBUTION WIDTH 16.2 % (11.5-14.0); WHITE BLOOD COUNT 25.6 10^3/uL (4.0-10.5)
[2017-09-09 13:16] LABS: INTERNATIONAL RATION (INR) 1.04; PROTHROMBIN TIME 14.3 SEC (11.4-15.4)
--- NOTE | 2017-09-09 13:19 | EKG REPORT ---
SEVERITY:- DEFECTIVE ECG - RIGHT AND LEFT ARM LEADS REVERSED, PLEASE REPEAT ECG : Confirmed by: Inocencio Aguilar MD 09-Sep-2017 13:18:46
[2017-09-09] MEDS: DEXTROSE 5%-WATER 250 ML with NOREPINEPHRINE BITARTRATE 4 MG IV PRN ×6 (13:26→20:12)
--- NOTE | 2017-09-09 13:27 | ER Document Report ---
ED General - General Chief Complaint: Shortness Of Breath Stated Complaint: SHORTNESS OF BREATH Time Seen by Provider: 09/09/17 12:29 Notes: The patient is a 72-year-old female, past medical history COPD, ROSETTA, CHF, hypertension, hyperlipidemia, chronic kidney disease stage III, atrial fibrillation, MT, DVT, hypothyroidism, GERD, depression, functional paraplegia, and morbid obesity, presents with increasing shortness of breath, nausea, vomiting and abdominal distention. When EMS arrived, her initial oxygen was in the low 80s and she is placed on nonrebreather mask. She took 40 mg of Lasix at her facility prior to arrival. Patient is confirmed to be DNR/DNI. Patient denies fevers, diarrhea, constipation, urinary symptoms, chest pain, rash, back pain or headache. TRAVEL OUTSIDE OF THE [place] IN LAST 30 DAYS: No - Related Data Allergies/Adverse Reactions: Sulfa (Sulfonamide Antibiotics) Allergy (Intermediate, Verified 08/03/17 22:20) adhesive tape Allergy (Verified 08/03/17 22:20) atorvastatin calcium [From Lipitor] Allergy (Verified 08/03/17 22:20) celecoxib [From Celebrex] Allergy (Verified 08/03/17 22:20) Past Medical History - General Information source: Patient, Emergency Med Personnel - Social History Smoking Status: Unknown if Ever Smoked Family History: Arthritis, CAD, CVA, DM, Hyperlipidemia, Hypertension - Past Medical History Cardiac Medical History: Reports: Hx Atrial Fibrillation, Hx Congestive Heart Failure - Diastolic dysfunction, Hx Heart Attack, Hx Hypertension - essential, Hx Pulmonary Embolism, Hx Heart Murmur Denies: Hx Coronary Artery Disease, Hx DVT, Hx Hypercholesterolemia, Hx Peripheral Vascular Disease Pulmonary Medical History: Reports: Hx Asthma, Hx Bronchitis, Hx COPD, Hx Pneumonia - Recurrent MRSA pneumonia., Hx Sleep Apnea - Uses C Pap Denies: Hx Tuberculosis Neurological Medical History: Denies: Hx Seizures Endocrine Medical History: Reports: Hx Diabetes Mellitus Type 2. Denies: Hx Diabetes Mellitus Type 1, Hx Hyperthyroidism, Hx Hypothyroidism Renal/ Medical History: Reports: Hx Renal Insufficiency. Denies: Hx Peritoneal Dialysis GI Medical History: Reports: Hx Gastroesophageal Reflux Disease, Hx Hiatal Hernia. Denies: Hx Cirrhosis, Hx Hepatitis Musculoskeltal Medical History: Reports Hx Arthritis, Reports Hx Fibromyalgia, Reports Hx Gout, Reports Hx Muscle Weakness Skin Medical History: Denies Hx Eczema, Denies Hx Psoriasis Psychiatric Medical History: Reports: Hx Anxiety, Hx Depression Infectious Medical History: Reports: Hx MRSA. Denies: Hx Hepatitis Past Surgical History: Reports: Hx Appendectomy, Hx Cholecystectomy, Hx Hysterectomy, Hx Orthopedic Surgery - Multiple left hip procedures, 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 - Immunizations Hx Diphtheria, Pertussis, Tetanus Vaccination: Yes Hx Pneumococcal Vaccination: 05/20/13 Review of Systems - Review of Systems Notes: REVIEW OF SYSTEMS: CONSTITUTIONAL: -fevers, -chills EENT: -eye pain, -difficulty swallowing, -nasal congestion CARDIOVASCULAR: -chest pain, -syncope. RESPIRATORY: -cough, +SOB GASTROINTESTINAL: +abdominal pain, +nausea, +vomiting, -diarrhea GENITOURINARY: -dysuria, -hematuria MUSCULOSKELETAL: -back pain, -neck pain SKIN: -rash or skin lesions. HEMATOLOGIC: -easy bruising or bleeding. LYMPHATIC: -swollen, enlarged glands. NEUROLOGICAL: -altered mental status or loss of consciousness, -headache, - neurologic symptoms PSYCHIATRIC: -anxiety, -depression. ALL OTHER SYSTEMS REVIEWED AND NEGATIVE. Physical Exam - Vital signs Vitals: Resp Pulse Ox 21 H 96 09/09/17 12:40 09/09/17 12:40 - Notes Notes: PHYSICAL EXAMINATION: GENERAL: Ill-appearing. HEAD: Atraumatic, normocephalic. EYES: Pupils equal round and reactive to light, extraocular movements intact, sclera anicteric, conjunctiva are normal. ENT: nares patent, oropharynx clear without exudates. Moist mucous membranes. NECK: Normal range of motion, supple without lymphadenopathy LUNGS: Mild tachypnea. Diffuse rales. HEART: Regular rate and rhythm ABDOMEN: Soft, diffuse tenderness, normoactive bowel sounds. Distended. No guarding, no rebound. No masses appreciated. EXTREMITIES: Peripheral edema. NEUROLOGICAL: Cranial nerves grossly intact. Normal speech. Normal sensory and motor exams. PSYCH: Normal mood, normal affect. SKIN: Warm, Dry, normal turgor, no rashes or lesions noted. Course - Re-evaluation Re-evalutation: Patient arrives hypotensive. Broad-spectrum antibiotics and IV fluids provided to patient. She does have a history of CHF and appears fluid overloaded already , so 30 mL/kg was not provided to the patient due to to concern about pulmonary edema leading to respiratory failure. She is DNR/DNI, but her respiratory status improved using BiPAP. Levophed was started early through a peripheral IV due to the hypotension and was quickly converted centrally after a central line was placed. 09/09/17 14:[address] Nash and she has accepted patient to ICU. Will continue IVF. - Vital Signs Vital signs: Temp Pulse Resp BP Pulse Ox 21 H 96 09/09/17 12:40 09/09/17 12:40 - Laboratory Result Diagrams: 09/09/17 12:40 09/09/17 12:40 Laboratory results interpreted by me: 09/09/17 09/09/17 09/09/17 12:40 12:40 12:40 WBC 25.6 H RBC 3.48 L Hgb 10.0 L Hct 31.3 L RDW 16.2 H Seg Neuts % (Manual) 91 H Band Neutrophils % 1 L Lymphocytes % (Manual) 2 L Abs Neuts (Manual) 23.6 H Abs Monocytes (Manual) 1.5 H ABG pO2 ABG Total CO2 ABG O2 Saturation BUN 27 H Creatinine 1.99 H Est GFR ( Amer) 30 L Est GFR (Non-Af Amer) 24 L Glucose 221 H Lactic Acid 3.6 H Direct Bilirubin 0.5 H Total Protein 5.5 L Albumin 3.1 L Urine Protein Ur Leukocyte Esterase Urine Ascorbic Acid 09/09/17 09/09/17 12:40 13:16 WBC RBC Hgb Hct RDW Seg Neuts % (Manual) Band Neutrophils % Lymphocytes % (Manual) Abs Neuts (Manual) Abs Monocytes (Manual) ABG pO2 168.6 H ABG Total CO2 27.1 H ABG O2 Saturation 99.2 H BUN Creatinine Est GFR ( Amer) Est GFR (Non-Af Amer) Glucose Lactic Acid Direct Bilirubin Total Protein Albumin Urine Protein 100 H Ur Leukocyte Esterase LARGE H Urine Ascorbic Acid 40 H - Diagnostic Test Radiology reviewed: Image reviewed, Reports reviewed Radiology results interpreted by me: CT A/P: 1 No evidence of acute process in the abdomen or pelvis. 2. Constipation. Colonic diverticulosis without evidence of diverticulitis. 3 Bilateral renal cysts. 4. The patient's total left hip prostheses produces artifact which limits detail in the pelvic region. The acetabular component of the prostheses protrudes into the pelvic region. The prostheses is superiorly elevated. 5. IVC filter. One of the IVC filter prongs protrudes outside of the lumen, located at about the level of the superior pole of the right kidney. No surrounding soft tissue mass or hematoma. 6. Additional findings as above. - EKG Interpretation by Me EKG shows normal: Sinus rhythm Rate: Normal [facility]/QRS: Left axis deviation When compared to previous EKG there are: No significant change Procedures - Central Line Right Internal jugular Time completed: 14:34 Consent obtained: Yes Central line pre-insertion: Sterile PPE donned, Chloraprep applied, Sterile drapes applied Central line lumen type: Triple Anesthetic type: 1% Lidocaine mL's of anesthesia: 5 Ultrasound guided: Yes CM at insertion site: 16 Line secured with sutures: Yes Central line post-insertion: Blood return from lumens, Biopatch applied, Sutured , Sterile dressing applied, Position confirmed w/ CXR Number of attempts: 1 Complications: No Critical Care Note - Critical Care Note Total time excluding time spent on procedures (mins): 45 Discharge - Discharge Clinical Impression: Septic shock ARF (acute renal failure) Qualifiers: Acute renal failure type: unspecified Qualified Code(s): N17.9 - Acute kidney failure, unspecified UTI (urinary tract infection) Qualifiers: Urinary tract infection type: site unspecified Hematuria presence: without hematuria Qualified Code(s): N39.0 - Urinary tract infection, site not specified Condition: Critical Disposition: ADMITTED INPATIENT Admitting Provider: Hospitalist - [facility] Admitted: ICU
[2017-09-09 13:31] LABS: ALANINE AMINOTRANSFERASE 29 U/L (9-52); ALBUMIN 3.1 g/dL (3.5-5.0); ALKALINE PHOSPHATASE 73 U/L (38-126); ANION GAP 12 (5-19); ASPARTATE AMINO TRANSFERASE 19 U/L (14-36); BILIRUBIN,DIRECT 0.5 mg/dL (0.0-0.4); BILIRUBIN,TOTAL 0.5 mg/dL (0.2-1.3); BLOOD UREA NITROGEN 27 mg/dL (7-20); CALCIUM 9.2 mg/dL (8.4-10.2); CARBON DIOXIDE 27 mmol/L (22-30); CHLORIDE 102 mmol/L (98-107); GLUCOSE 221 mg/dL (75-110); POTASSIUM 4.5 mmol/L (3.6-5.0); TOTAL PROTEIN 5.5 g/dL (6.3-8.2)
[2017-09-09 13:48] LABS: ABSOLUTE LYMPHOCYTES# (MANUAL) 0.5 10^3/uL (0.5-4.7); ABSOLUTE MONOCYTES # (MANUAL) 1.5 10^3/uL (0.1-1.4); ABSOLUTE NEUTROPHILS# (MANUAL) 23.6 10^3/uL (1.7-8.2); BAND NEUTROPHILS % (MANUAL) 1 % (3-5); BASOPHILS % (MANUAL) 0 % (0-2); EOSINOPHILS % (MANUAL) 0 % (0-6); LYMPHOCYTES % (MANUAL) 2 % (13-45); MONOCYTES % (MANUAL) 6 % (3-13); SEGMENTED NEUTROPHILS % (MAN) 91 % (42-78); TOTAL CELLS COUNTED 100
[2017-09-09 13:50] LABS: ANISOCYTOSIS 1+; OVALOCYTES SLIGHT; PLATELET COMMENT ADEQUATE; POIKILOCYTOSIS 1+; POLYCHROMASIA SLIGHT; STOMATOCYTES SLIGHT; TOXIC GRANULATION SLIGHT
[2017-09-09 14:05] LABS: APPEARANCE,URINE CLOUDY; BILIRUBIN,URINE NEGATIVE (NEGATIVE); COLOR,URINE AMBER; GLUCOSE, URINE NEGATIVE (NEGATIVE); KETONES,URINE NEGATIVE (NEGATIVE); LEUKOCYTE ESTERASE,URINE LARGE (NEGATIVE); NITRITE,URINE NEGATIVE (NEGATIVE); PROTEIN,URINE 100 mg/dL (NEGATIVE); URINE SPECIFIC GRAVITY 1.014; UROBILINOGEN,URINE NEGATIVE mg/dL (<2.0)
[2017-09-09] MEDS ORDERED: IMIPENEM/CILASTATIN SODIUM INJ 500 MG VIAL IV ONE (14:31)
--- NOTE | 2017-09-09 14:32 | RADIOLOGY REPORT (SQ) ---
EXAM DESCRIPTION: CT ABD/PELVIS NO ORAL OR IV COMPLETED DATE/TIME: 09/09/2017 2:06 pm REASON FOR STUDY: septic shock, JASPREET, abdominal distention COMPARISON: None. TECHNIQUE: CT scan of the abdomen and pelvis performed without intravenous or oral contrast. Images reviewed with lung, soft tissue, and bone windows. Reconstructed coronal and sagittal MPR images revi ewed. All images stored on PACS. All CT scanners at this facility use dose modulation, iterative reconstruction, and/or weight based d osing when appropriate to reduce radiation dose to as low as reasonably achievable (ALARA). [facility]: Dose Right [facility]: CareDose [facility]: Dose Right [facility]: Teradose 4D [facility]: [employer] RADIATION DOSE: CT Rad equipment meets quality standard of care and radiation dose reduction techniq ues were employed. CTDIvol: 18.3 mGy. DLP: 994 mGy-cm.mGy. LIMITATIONS: None. FINDINGS: LOWER CHEST: Mild atelectasis and or scar at the lung bases. NON-CONTRASTED LIVER, SPLEEN, ADRENALS: Hepatomegaly. Evaluation limited by lack of IV contrast. No identified significant masses. PANCREAS: Fatty infiltration. No masses. No peripancreatic inflammatory changes. GALLBLADDER: Prior cholecystectomy. RIGHT KIDNEY AND URETER: Right renal cysts. Lobulated contour to the kidney may be related to prior inflammatory changes versus lobulation. . Assessment limited by lack of IV contrast. No sign ificant calcifications. No hydronephrosis or hydroureter. LEFT KIDNEY AND URETER: Left renal cysts. Assessment limited by lack of IV contrast. No significa nt calcifications. No hydronephrosis or hydroureter. AORTA AND RETROPERITONEUM: Atherosclerotic changes involving the abdominal aorta and branch vessels. No aneurysm. A few borderline mesenteric lymph nodes which measure 10-11 mm in short axis diameter . No retroperitoneal masses. BOWEL AND PERITONEAL CAVITY: Colonic diverticulosis without evidence of diverticulitis. Constipatio n. No free fluid. APPENDIX: Prior appendectomy. PELVIS, BLADDER, AND ABDOMINAL WALL: Prior hysterectomy. The acetabular component of the patient's total left hip prostheses protrudes into the pelvic region. Artifact from the prostheses limits deta il in the pelvic region. The prosthesis is superiorly elevated and marked deformity of the acetabulu m is noted. Barton catheter within the urinary bladder. No free fluid. BONES: Total left hip prostheses. Degenerative changes involving the lumbar spine. OTHER: IVC filter. One of the IVC filter prongs extends outside of the lumen of the IVC at about th e level of the superior pole of the right kidney. No evidence of surrounding soft tissue mass. IMPRESSION: 1 No evidence of acute process in the abdomen or pelvis. 2. Constipation. Colonic diverticulosis without evidence of diverticulitis. 3 Bilateral renal cysts. 4. The patient's total left hip prostheses produces artifact which limits detail in the pelvic region . The acetabular component of the prostheses protrudes into the pelvic region. The prostheses is albarado periorly elevated. 5. IVC filter. One of the IVC filter prongs protrudes outside of the lumen, located at about the le master of the superior pole of the right kidney. No surrounding soft tissue mass or hematoma. 6. Additional findings as above. COMMENT: Quality ID # [id number]: Final reports with documentation of one or more dose reduction techniques (e.g., Automated exposure control, adjustment of the mA and/or kV according to patient size, use of iterative reconstruction technique) TECHNICAL DOCUMENTATION: JOB ID: [id number] [employer]- All Rights Reserved Reading location - IP/workstation name: [email or web address]
--- NOTE | 2017-09-09 14:41 | RADIOLOGY REPORT (SQ) ---
EXAM DESCRIPTION: CHEST SINGLE VIEW COMPLETED DATE/TIME: 09/09/2017 2:27 pm REASON FOR STUDY: SOB COMPARISON: 08/14/2017 EXAM PARAMETERS: NUMBER OF VIEWS: One view. TECHNIQUE: Single frontal radiographic view of the chest acquired. RADIATION DOSE: NA LIMITATIONS: None. FINDINGS: LUNGS AND PLEURA: The previously demonstrated atelectasis or early pneumonia in the left upper lobe is not visualized on the current examination. No pneumothorax or pleural effusion. MEDIASTINUM AND HILAR STRUCTURES: No masses. Contour normal. HEART AND VASCULAR STRUCTURES: Cardiomegaly, stable finding. Normal vasculature. BONES: The osseous structures are stable in appearance. HARDWARE: Interval removal of the right central venous line. OTHER: No other significant finding. IMPRESSION: 1 Low lung volumes. Previously demonstrated atelectasis or early pneumonia in the left upper lobe is not visualized on the current examination. 2. Cardiomegaly, unchanged finding. 3. Interval removal of the right central venous line. TECHNICAL DOCUMENTATION: JOB ID: [id number] [employer]- All Rights Reserved Reading location - IP/workstation name: [email or web address]
--- NOTE | 2017-09-09 16:17 | RADIOLOGY REPORT (SQ) ---
EXAM DESCRIPTION: CHEST SINGLE VIEW COMPLETED DATE/TIME: 09/09/2017 3:48 pm REASON FOR STUDY: central line placement COMPARISON: 09/09/2017 EXAM PARAMETERS: NUMBER OF VIEWS: One view. TECHNIQUE: Single frontal radiographic view of the chest acquired. RADIATION DOSE: NA LIMITATIONS: None. FINDINGS: LUNGS AND PLEURA: Relatively low lung volumes. No infiltrate or effusion. No pneumothora x. MEDIASTINUM AND HILAR STRUCTURES: No masses. Contour normal. HEART AND VASCULAR STRUCTURES: Cardiac silhouette is enlarged. There is no maddy failure. BONES: No acute findings. HARDWARE: Right internal jugular catheter has its tip in the superior vena cava. OTHER: No other significant finding. IMPRESSION: Successful catheter placement with no complication. Cardiomegaly without maddy CHF. TECHNICAL DOCUMENTATION: JOB ID: [id number] [employer]- All Rights Reserved Reading location - IP/workstation name: [email or web address]
--- NOTE | 2017-09-09 16:41 | PDOC H&P ---
History of Present Illness Admission Date/PCP: 09/09/17 15:14 History of Present Illness: PORSHA WALDRON is a 72 year old female with a past medical history of COPD, ROSETTA, CHF, hypertension, hyperlipidemia, chronic kidney disease stage III, atrial fibrillation, NE, DVT, hypothyroidism, GERD, depression, functional paraplegia, and morbid obesity who presents to the emergency department today with a complaint of chest pain and abdominal pain. EMS was called. The patient presented to the emergency department she had evidence of a septic shock with systolic blood pressures less than 70. She did not manifest a fever but she is quite ill with an elevated lactic acid level and severe leukocytosis. Urinalysis is significant for acute infection. Patient is also in acute renal failure. The patient is currently DNR and DNI. I am familiar with this patient as I cared for her recently. On 08/03/17 the patient was admitted for acute on chronic respiratory failure secondary to pneumonia and COPD with exacerbation. Her sputum culture grew Pseudomonas Aeruginosa, Staphylococcus aureus and Group F Beta Streptococcus. Initially, the patient was treated with ceftriaxone on 08/04/2017 through 10/2017. On 08/05/2017 she was placed on Vantin and doxycycline which were continued through 08/11/2017. Unfortunately, the patient started to develop increasing cough and congestion. The antibiotics that she was receiving were not covering the Pseudomonas. Therefore , on 08/13/2017 she was started on a 10 day course of cefepime. Chest x-ray performed on 08/14/2017 did demonstrate a new infiltrate in the left upper lobe. The patient was clinically stable and she was transferred to a long-term care facility on 08/15/2017. Chart review indicates that the patient has a history of pulmonary embolus but was taken off of Eliquis secondary to severe bleeding. Abdomen and pelvis CT scan performed today indicates that she has an IVC filter in place. Past Medical History Cardiac Medical History: Reports: Atrial Fibrillation, Congestive Heart Failure - Diastolic dysfunction, Myocardial Infarction, Hypertension - essential, Pulmonary Embolism, Heart Murmur Denies: Coronary Artery Disease, DVT, Hyperlipidema, Peripheral Vascular Disease Pulmonary Medical History: Reports: Asthma, Bronchitis, Chronic Obstructive Pulmonary Disease (COPD), Pneumonia - Recurrent MRSA pneumonia., Sleep Apnea - Uses C Pap Denies: Tuberculosis Neurological Medical History: Denies: Seizures Endocrine Medical History: Reports: Diabetes Mellitus Type 2 Denies: Diabetes Mellitus Type 1, Hyperthyroidism, Hypothyroidism GI Medical History: Reports: Gastroesophageal Reflux Disease, Hiatal Hernia Denies: Cirrhosis, Hepatitis Musculoskeltal Medical History: Reports: Arthritis, Fibromyalgia, Gout Skin Medical History: Denies: Eczema, Psoriasis Psychiatric Medical History: Reports: Depression Hematology: Reports: Anemia Infectious Medical History: Reports: Methicillin-Resistant Staph Aureus Past Surgical History Past Surgical History: Reports: Appendectomy, Cholecystectomy, Hysterectomy, Orthopedic Surgery - Multiple left hip procedures, 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 Social History Smoking Status: Unknown if Ever Smoked Frequency of Alcohol Use: None Hx Recreational Drug Use: No Drugs: None Hx Prescription Drug Abuse: No - Advance Directive Resuscitation Status: DO NOT RESUSCITATE/DO NOT INTUBATE Surrogate healthcare decision maker:: Patient is currently on BiPAP. I am unable to obtain her surrogate decision maker at this time, but, she is cognizant and does confirm that she is DO NOT INTUBATE and DO NOT RESUSCITATE at this time. Family History Family History: Reviewed & Not Pertinent, Arthritis, CAD, CVA, DM, Hyperlipidemia, Hypertension Parental Family History Reviewed: Yes Children Family History Reviewed: Yes Sibling(s) Family History Reviewed.: Yes Medication/Allergy Allergies/Adverse Reactions: Sulfa (Sulfonamide Antibiotics) Allergy (Intermediate, Verified 08/03/17 22:20) adhesive tape Allergy (Verified 08/03/17 22:20) atorvastatin calcium [From Lipitor] Allergy (Verified 08/03/17 22:20) celecoxib [From Celebrex] Allergy (Verified 08/03/17 22:20) Review of Systems Constitutional: ABSENT: as per HPI, anorexia, chills, fatigue, fever(s), headache(s), night sweats, weakness, weight gain, weight loss, other Eyes: ABSENT: as per HPI, visual disturbances, other Ears: ABSENT: as per HPI, hearing changes, other Nose, Mouth, and Throat: ABSENT: as per HPI, headache(s), mouth pain, sore throat, vertigo, other Breasts: ABSENT: as per HPI, other Cardiovascular: PRESENT: chest pain Respiratory: PRESENT: dyspnea Gastrointestinal: PRESENT: abdominal pain, nausea Genitourinary: ABSENT: as per HPI, difficulty urinating, dysuria, hematuria, nocturia, other Musculoskeletal: PRESENT: other - She has pain in the left hip Integumentary: ABSENT: as per HPI, diaphoresis, erythema, lesions, pruritus, rash, wounds, other Neurological: ABSENT: as per HPI, abnormal gait, abnormal movements, abnormal speech, confusion, convulsions, dizziness, focal weakness, frequent falls, lack of coordination, memory loss, numbness, paresthesias, restless legs, syncope, tingling, tremor(s), vertigo, weakness, other Psychiatric: ABSENT: as per HPI, anxiety, depression, hallucinations, homidical ideation, suicidal ideation, other Endocrine: ABSENT: as per HPI, cold intolerance, flushing, heat intolerance, menstrual abnormalities, polydipsia, polyphagia, polyuria, other Hematologic/Lymphatic: ABSENT: as per HPI, easy bleeding, easy bruising, lymphadenopathy, other Allergic/Immunologic: ABSENT: as per HPI, seasonal rhinorrhea, other Physical Exam Vital Signs: Temp Pulse Resp BP Pulse Ox 99.1 F 20 137/57 H 100 09/09/17 15:46 09/09/17 15:46 09/09/17 15:46 09/09/17 15:46 Additional comments: The patient is awake, alert and oriented. She does know that she is in the hospital. She confirms that she had onset of abdominal pain followed by chest pain associated with nausea. Her blood pressure at this time demonstrates a systolic of 120. Her facial appearance is significant for the fact that she has a BiPAP mask on her face. Otherwise, she is able to open both of her eyes. Her pupils are somewhat pinpoint. I cannot examine her oropharynx. Her neck is supple. Trachea is midline. Thyroid is nonpalpable. Patient's lungs him and straight severe rhonchi bilaterally. Her cardiac exam is distant but regular. I do not hear any murmurs, gallops or rubs at this time. The abdomen is severely obese but soft. Bowel sounds are hypoactive. She does not have guarding or rebound noted and there are no hernias or masses present. The lower extremities demonstrate edema. The edema is greater in the left leg than the right leg but it is nonpitting. She also he appears to have a bony malformation over the right owusu just superior to the ankle. The patient has bruises on the skin but otherwise I do not appreciate any acute skin lesions or rashes. Results Impressions: Abdomen/Pelvis CT 09/09/17 13:41 IMPRESSION: 1 No evidence of acute process in the abdomen or pelvis. 2. Constipation. Colonic diverticulosis without evidence of diverticulitis. 3 Bilateral renal cysts. 4. The patient's total left hip prostheses produces artifact which limits detail in the pelvic region. The acetabular component of the prostheses protrudes into the pelvic region. The prostheses is superiorly elevated. 5. IVC filter. One of the IVC filter prongs protrudes outside of the lumen, located at about the level of the superior pole of the right kidney. No surrounding soft tissue mass or hematoma. 6. Additional findings as above. Assessment & Plan - Diagnosis (1) Septic shock Is this a current diagnosis for this admission?: Yes Plan: The patient will be admitted to the intensive care unit. Despite the fact that she has a history of congestive heart failure and cor pulmonale she requires fluids. Her congestive heart failure diagnosis is primarily diastolic. She is currently on Levophed and appears to be clinically improving. (2) Acute renal failure Qualifiers: Acute renal failure type: unspecified Qualified Code(s): N17.9 - Acute kidney failure, unspecified Is this a current diagnosis for this admission?: Yes Plan: Patient has a history of chronic kidney disease stage III, but, her creatinine is twice what it was at discharge in August. Her baseline creatinine is 1. Hopefully, she will improve with IV fluids, but, with the severe hypotension that she presented with she may actually have a worsened deficit. We should avoid nephrotoxins as much as possible and dose all medications appropriately. (3) UTI (urinary tract infection) Qualifiers: Urinary tract infection type: site unspecified Hematuria presence: without hematuria Qualified Code(s): N39.0 - Urinary tract infection, site not specified Is this a current diagnosis for this admission?: Yes Plan: Cultures are pending. I would initiate therapy with cefepime. (4) Acute and chronic respiratory failure Qualifiers: Respiratory failure complication: hypoxia Qualified Code(s): J96.21 - Acute and chronic respiratory failure with hypoxia Is this a current diagnosis for this admission?: Yes Plan: The patient is currently on BiPAP. She is receiving supplemental oxygen. She is a DO NOT INTUBATE. (5) COR (chronic cor pulmonale) Is this a current diagnosis for this admission?: Yes Plan: This is secondary to the patient's super morbid obesity, obstructive sleep apnea and diastolic dysfunction. Continue supportive care. (6) DVT prophylaxis Is this a current diagnosis for this admission?: Yes Plan: Will be with renally dosed Lovenox. (7) Diabetes mellitus Qualifiers: Diabetes mellitus type: type 2 Diabetes mellitus roasterman insulin use: with usp use Diabetes mellitus complication detail: with chronic kidney disease Chronic kidney disease stage: stage 3 (moderate) Is this a current diagnosis for this admission?: Yes Plan: Will use sliding scale insulin for now. (8) Diastolic CHF, acute on chronic Is this a current diagnosis for this admission?: Yes Plan: Currently, patient is requiring pressors. Her home medications will need to be held for now. (9) Functional quadriplegia Is this a current diagnosis for this admission?: Yes (10) Gastroesophageal reflux disease Qualifiers: Esophagitis presence: without esophagitis Qualified Code(s): K21.9 - Gastro -esophageal reflux disease without esophagitis Is this a current diagnosis for this admission?: Yes Plan: Continue PPI therapy. (11) Morbid obesity Is this a current diagnosis for this admission?: Yes Plan: Patient is morbidly obese. This will increase the complexity of her care secondary to the need for specialty services, etc. (12) Obstructive sleep apnea Is this a current diagnosis for this admission?: Yes Plan: Continue noninvasive ventilation and wean to CPAP at at bedtime when tolerated. (13) Paroxysmal A-fib Is this a current diagnosis for this admission?: Yes Plan: Continue on telemetry. (14) Do not resuscitate Is this a current diagnosis for this admission?: Yes Plan: The patient is a DO NOT INTUBATE, DO NOT RESUSCITATE. - Time Time Spent: 50 to 70 Minutes - Inpatient Certification Medical Necessity: Need For IV Fluids, Need For Continuous Telemetry Monitoring , Need for IV Antibiotics, Risk of Complication if Not Cared For in Hospital, Risk of Diagnosis Which Will Require Inpatient Eval/Care/Monitoring
[2017-09-09] MEDS ORDERED: DEXTROSE 40% GEL 15 GM TUBE PO PRN ×4 (16:42→16:54)
[2017-09-09] MEDS ORDERED: GLUCAGON,HUMAN RECOMB 1 MG INJ SUBCUT PRN (16:42)
[2017-09-09] MEDS ORDERED: DEXTROSE 50%-WATER 25 GM/50 ML DISP.SYRIN IV PRN ×4 (16:42→16:54)
[2017-09-09] MEDS ORDERED: PROMETHAZINE HCL INJ 25 MG/1 ML VIAL IV PRN (16:42)
[2017-09-09] MEDS ORDERED: GLUCAGON,HUMAN RECOMB 1 MG INJ IM PRN (16:54)
[2017-09-09] MEDS ORDERED: VANCOMYCIN HCL 0 MG in DEXTROSE 5%-WATER 250 ML IV NR (17:00)
--- NOTE | 2017-09-09 17:30 | RADIOLOGY REPORT (SQ) ---
EXAM DESCRIPTION: CHEST SINGLE VIEW COMPLETED DATE/TIME: 09/09/2017 5:20 pm REASON FOR STUDY: Respiratory failure COMPARISON: 09/09/2017 EXAM PARAMETERS: NUMBER OF VIEWS: One view. TECHNIQUE: Single frontal radiographic view of the chest acquired. RADIATION DOSE: NA LIMITATIONS: None. FINDINGS: LUNGS AND PLEURA: No infiltrate, effusion, or pulmonary edema is seen. MEDIASTINUM AND HILAR STRUCTURES: No masses. Contour normal. HEART AND VASCULAR STRUCTURES: Cardiomegaly. BONES: No acute findings. HARDWARE: Right internal jugular catheter remains in place. OTHER: No other significant finding. IMPRESSION: Cardiomegaly without CHF. TECHNICAL DOCUMENTATION: JOB ID: [id number] [employer]- All Rights Reserved Reading location - IP/workstation name: [email or web address]
[2017-09-09] MEDS: IPRATROPIUM/ALBUTEROL 0.5-2.5 MG/3 ML AMPUL NEB SCH (20:25)
[2017-09-09] MEDS: CEFEPIME 1 GM/D5W RTU 1 GM/50 ML RTUPB IV SCH (21:35)
[2017-09-09] MEDS: DOCUSATE SODIUM 100 MG CAPSULE PO SCH (21:36)
[2017-09-09] MEDS ORDERED: FAMOTIDINE INJ/PF 20 MG/2 ML SDV IV SCH ×2 (22:00)
[2017-09-09] MEDS: INSULIN LISPRO 100 UNIT/ML 3 ML VIAL SUBCUT PRN (23:46)
[2017-09-10] MEDS: IPRATROPIUM/ALBUTEROL 0.5-2.5 MG/3 ML AMPUL NEB SCH ×4 (02:11→19:54)
[2017-09-10] MEDS: OXYCODONE-ACETAMINOPHEN 5-325 MG TABLET PO PRN (05:42)
[2017-09-10 06:09] LABS: HEMATOCRIT 29.2 % (36.0-47.0); HEMOGLOBIN 9.7 g/dL (12.0-15.5); MEAN CORPUSCULAR HEMOGLOBIN 29.3 pg (27.0-33.4); MEAN CORPUSCULAR HGB CONC 33.2 g/dL (32.0-36.0); MEAN CORPUSCULAR VOLUME 88 fl (80-97); PLATELET COUNT 143 10^3/uL (150-450); RED BLOOD COUNT 3.31 10^6/uL (3.72-5.28); RED CELL DISTRIBUTION WIDTH 15.8 % (11.5-14.0); WHITE BLOOD COUNT 18.5 10^3/uL (4.0-10.5)
[2017-09-10 06:22] LABS: ALANINE AMINOTRANSFERASE 39 U/L (9-52); ALBUMIN 3.2 g/dL (3.5-5.0); ALKALINE PHOSPHATASE 70 U/L (38-126); ANION GAP 9 (5-19); ASPARTATE AMINO TRANSFERASE 20 U/L (14-36); BILIRUBIN,DIRECT 0.5 mg/dL (0.0-0.4); BILIRUBIN,TOTAL 0.5 mg/dL (0.2-1.3); BLOOD UREA NITROGEN 30 mg/dL (7-20); CARBON DIOXIDE 30 mmol/L (22-30); CHLORIDE 105 mmol/L (98-107); GLUCOSE 97 mg/dL (75-110); POTASSIUM 3.9 mmol/L (3.6-5.0); SODIUM 143.9 mmol/L (137-145); TOTAL PROTEIN 5.8 g/dL (6.3-8.2)
[2017-09-10 06:25] LABS: INTERNATIONAL RATION (INR) 1.05; PROTHROMBIN TIME 14.5 SEC (11.4-15.4)
[2017-09-10 06:26] LABS: PARTIAL THROMBOPLASTIN TIME 40.3 SEC (23.5-35.8)
[2017-09-10] MEDS ORDERED: BENZONATATE 100 MG CAPSULE PO PRN (08:12)
[2017-09-10] MEDS ORDERED: LACTULOSE PO PRN (08:12)
[2017-09-10] MEDS ORDERED: BUTALB/ACETAMINOPHEN/CAFFEINE 1 TAB EACH PO PRN (08:12)
[2017-09-10] MEDS ORDERED: MAGNESIUM HYDROXIDE SUSP 30 ML UDCUP PO PRN (08:12)
[2017-09-10] MEDS ORDERED: CARBOXYMETHYLCELLULOSE SOD 0.5% 0.4 ML DROPERETTE OU PRN (08:12)
[2017-09-10] MEDS ORDERED: (PENDING PHARMACY ID) (Menthol [Biofreeze] 1 APPLIC) TOP PRN (08:12)
[2017-09-10 10:00] LABS: ARTERIAL BLOOD BASE EXCESS 3.9 mmol/L; ARTERIAL BLOOD H2CO3 1.44 mmol/L (1.05-1.35); ARTERIAL BLOOD HCO3 29.1 mmol/L (20-26); ARTERIAL BLOOD O2 SATURATION 99.3 % (94-98); ARTERIAL BLOOD PCO2 47.8 mmHg (35-45); ARTERIAL BLOOD TOTAL CO2 30.6 mmol/L (21-25)
[2017-09-10] MEDS ORDERED: (PENDING PHARMACY ID) (Linaclotide 145 MCG) PO SCH (10:00)
[2017-09-10] MEDS ORDERED: (PENDING PHARMACY ID) (Ranitidine Hcl [Zantac 150 Mg Tablet] 150 MG) PO SCH (10:00)
[2017-09-10] MEDS ORDERED: (PENDING PHARMACY ID) (Buspirone Hcl [Buspar 5 Mg Tablet] 5 MG) PO SCH (10:00)
[2017-09-10] MEDS ORDERED: (PENDING PHARMACY ID) (Roflumilast [Daliresp 500 Mcg Tablet] 500 MCG) PO SCH (10:00)
[2017-09-10 10:01] LABS: ARTERIAL BLOOD FIO2 45%
[2017-09-10] MEDS: TAMSULOSIN HCL 0.4 MG CAP.SR.24H PO SCH (10:16)
[2017-09-10] MEDS: PREDNISONE 10 MG TABLET PO SCH (10:16)
[2017-09-10] MEDS: ASPIRIN 81 MG TABLET, CHEWABLE PO SCH (10:17)
[2017-09-10] MEDS: DOCUSATE SODIUM 100 MG CAPSULE PO SCH ×2 (10:17→16:34)
[2017-09-10] MEDS: DULOXETINE HCL 30 MG CAPSULE.DR PO SCH (10:17)
[2017-09-10] MEDS: ENOXAPARIN SODIUM INJ 30 MG/0.3 ML DISP.SYRIN SUBCUT SCH (10:17)
[2017-09-10] MEDS: FERROUS SULFATE 325 MG TABLET PO SCH ×2 (10:17→16:35)
[2017-09-10] MEDS: LORATADINE 10 MG TABLET PO SCH (10:17)
[2017-09-10] MEDS: POLYETHYLENE GLYCOL 3350 POWDER 17 GM/1 PACKET PO SCH (10:19)
[2017-09-10] MEDS: FLUTICASONE/SALMETEROL DISKUS 500-50 MCG/DOSE IH SCH ×2 (10:19→21:33)
[2017-09-10] MEDS ORDERED: FENTANYL 25 MCG/HR PATCH.TD72 TOP ONE (13:00)
--- NOTE | 2017-09-10 13:07 | PDOC PROGRESS REPORT ---
Subjective Progress Note for:: 09/10/17 Subjective:: Patient relates that she feels better. She will like to have the medication for constipation such as MiraLAX and milk of magnesium, Lyrica. She still having a lot of thinking to do about hospice however she would like to explore hospice in [place] to see what they have to offer. She still having a lot of thinking to do because she worries about her 2 grandkids. Review of systems All organ systems evaluated and negative except as in subjective No significant laboratories and diagnostics have been reviewed Reason For Visit: SEPTIC SHOCK Physical Exam Vital Signs: Temp Pulse Resp BP Pulse Ox 98.8 F 81 12 115/68 96 09/10/17 06:40 09/10/17 02:11 09/10/17 06:21 09/10/17 06:40 09/10/17 06:40 Intake & Output 09/09/17 09/10/17 09/11/17 06:59 06:59 06:59 Output Total 700 Balance -700 Weight 95 kg General appearance: PRESENT: cooperative, obese Head exam: PRESENT: atraumatic, normocephalic Eye exam: PRESENT: conjunctiva pink, EOMI, PERRLA Mouth exam: PRESENT: moist Neck exam: PRESENT: full ROM. ABSENT: JVD, tenderness Respiratory exam: PRESENT: clear to auscultation elia Cardiovascular exam: PRESENT: RRR. ABSENT: diastolic murmur, systolic murmur Vascular exam: PRESENT: normal capillary refill GI/Abdominal exam: PRESENT: normal bowel sounds, soft. ABSENT: tenderness Extremities exam: PRESENT: +1 edema Musculoskeletal exam: ABSENT: ambulatory Neurological exam: PRESENT: alert, awake, oriented to person, oriented to place , oriented to time, oriented to situation Psychiatric exam: PRESENT: depressed Skin exam: PRESENT: normal color Results Laboratory Results: 09/10/17 05:50 09/10/17 05:50 09/09/17 09/10/17 09/10/17 16:45 05:50 05:50 WBC 18.5 H RBC 3.31 L Hgb 9.7 L Hct 29.2 L MCV 88 MCH 29.3 MCHC 33.2 RDW 15.8 H Plt Count 143 L Carbonic Acid HCO3/H2CO3 Ratio ABG pH ABG pCO2 ABG pO2 ABG HCO3 ABG O2 Saturation ABG Base Excess FiO2 Sodium 143.9 Potassium 3.9 Chloride 105 Carbon Dioxide 30 Anion Gap 9 BUN 30 H Creatinine 1.42 H Est GFR ( Amer) 44 L Est GFR (Non-Af Amer) 36 L Glucose 97 Lactic Acid 1.8 Calcium 9.0 Magnesium 2.1 Total Bilirubin 0.5 AST 20 ALT 39 Alkaline Phosphatase 70 Total Protein 5.8 L Albumin 3.2 L 09/10/17 06:10 WBC RBC Hgb Hct MCV MCH MCHC RDW Plt Count Carbonic Acid Cancelled HCO3/H2CO3 Ratio Cancelled ABG pH Cancelled ABG pCO2 Cancelled ABG pO2 Cancelled ABG HCO3 Cancelled ABG O2 Saturation Cancelled ABG Base Excess Cancelled FiO2 Cancelled Sodium Potassium Chloride Carbon Dioxide Anion Gap BUN Creatinine Est GFR ( Amer) Est GFR (Non-Af Amer) Glucose Lactic Acid Calcium Magnesium Total Bilirubin AST ALT Alkaline Phosphatase Total Protein Albumin Impressions: Abdomen/Pelvis CT 09/09/17 13:41 IMPRESSION: 1 No evidence of acute process in the abdomen or pelvis. 2. Constipation. Colonic diverticulosis without evidence of diverticulitis. 3 Bilateral renal cysts. 4. The patient's total left hip prostheses produces artifact which limits detail in the pelvic region. The acetabular component of the prostheses protrudes into the pelvic region. The prostheses is superiorly elevated. 5. IVC filter. One of the IVC filter prongs protrudes outside of the lumen, located at about the level of the superior pole of the right kidney. No surrounding soft tissue mass or hematoma. 6. Additional findings as above. Chest X-Ray 09/09/17 16:46 IMPRESSION: Cardiomegaly without CHF. Assessment & Plan - Diagnosis (1) COPD (chronic obstructive pulmonary disease) Is this a current diagnosis for this admission?: Yes Plan: To continue outpatient regimen. At the present time appears to be stable from the standpoint of view (2) Acute renal failure Qualifiers: Acute renal failure type: unspecified Qualified Code(s): N17.9 - Acute kidney failure, unspecified Is this a current diagnosis for this admission?: Yes Plan: Improving and we will continue monitoring renal functions (3) Septic shock Is this a current diagnosis for this admission?: Yes Plan: Resolved. (4) UTI (urinary tract infection) Qualifiers: Urinary tract infection type: site unspecified Hematuria presence: without hematuria Qualified Code(s): N39.0 - Urinary tract infection, site not specified Is this a current diagnosis for this admission?: Yes Plan: In the past patient had required meropenem for a urinary tract infection. Will continue cefepime since responding. We will follow-up urine culture results (5) Acute and chronic respiratory failure with hypoxia Is this a current diagnosis for this admission?: Yes Plan: Improve and continue oxygen supplementation. Will consult case management for hospice. Had long-standing conversation with patient since she returns back to the hospital like every 2-3 weeks (6) Adrenal insufficiency Is this a current diagnosis for this admission?: Yes Plan: Continue prednisone as outpatient (7) COR (chronic cor pulmonale) Is this a current diagnosis for this admission?: Yes Plan: Appears to be stable. Will hold off Lasix anticipate to restart in a.m. (8) Constipation Qualifiers: Constipation type: unspecified constipation type Qualified Code(s): K59.00 - Constipation, unspecified Is this a current diagnosis for this admission?: Yes Plan: Long-standing problem with patient. To restart outpatient regimen (9) Diabetes mellitus Qualifiers: Diabetes mellitus type: type 2 Diabetes mellitus detention insulin use: with detention use Diabetes mellitus complication detail: with chronic kidney disease Chronic kidney disease stage: stage 3 (moderate) Is this a current diagnosis for this admission?: Yes Plan: Continue insulin sliding scale and bedside glucose before meals and at bedtime (10) Functional quadriplegia Is this a current diagnosis for this admission?: Yes Plan: Long-standing problem. Decubiti precautions - Time Time Spent with patient: 15-24 minutes - Inpatient Certification Based on my medical assessment, after consideration of the patient's comorbidities, presenting symptoms, or acuity I expect that the services needed warrant INPATIENT care.: Yes I certify that my determination is in accordance with my understanding of Medicare's requirements for reasonable and necessary INPATIENT services [42 CFR 412.3e].: Yes Medical Necessity: Need For IV Fluids, Need For Continuous Telemetry Monitoring , Need for IV Antibiotics
[2017-09-10] MEDS: OXYCODONE HCL IR 5 MG TABLET PO SCH ×3 (13:26→23:25)
[2017-09-10] MEDS: PREGABALIN 75 MG CAPSULE PO SCH ×2 (13:26→21:36)
[2017-09-10] MEDS: ACETYLCYSTEINE 10% NEB 400 MG/4 ML VIAL NEB SCH ×2 (14:52→19:54)
[2017-09-10] MEDS ORDERED: VANCOMYCIN HCL 750 MG in DEXTROSE 5%-WATER 250 ML IV SCH (15:00)
[2017-09-10] MEDS ORDERED: FAMOTIDINE 20 MG TABLET PO SCH (18:00)
[2017-09-10] MEDS: ACETAMINOPHEN 325 MG TABLET PO PRN (18:43)
[2017-09-10] MEDS: INSULIN LISPRO 100 UNIT/ML 3 ML VIAL SUBCUT PRN (18:44)
[2017-09-10] MEDS ORDERED: DILTIAZEM HCL 60 MG TABLET PO ONE (21:30)
[2017-09-10] MEDS ORDERED: DILTIAZEM HCL INJ 25 MG/5 ML VIAL IV ONE (21:30)
[2017-09-10] MEDS: SENNOSIDES/DOCUSATE 8.6-50 MG 1 EACH TABLET PO SCH (21:35)
[2017-09-10] MEDS: BUSPIRONE HCL 10 MG TABLET PO SCH (21:36)
[2017-09-10] MEDS: MELATONIN 5 MG TABLET PO SCH (21:37)
[2017-09-10] MEDS ORDERED: NORMAL SALINE 1000 ML 1,000 ML IV ONE (22:00)
[2017-09-10] MEDS ORDERED: (PENDING PHARMACY ID) (Melatonin [Melatonin] 10 MG) PO SCH (22:00)
[2017-09-10] MEDS ORDERED: CEFEPIME 1 GM/D5W RTU 1 GM/50 ML RTUPB IV ONE (23:29)
[2017-09-10] MEDS: CEFEPIME 1 GM/D5W RTU 1 GM/50 ML RTUPB IV SCH (23:43)
[2017-09-10] MEDS ORDERED: DILTIAZEM HCL INJ 25 MG/5 ML VIAL ONE (23:47)
[2017-09-10] MEDS: DILTIAZEM HCL/D5W 125 MG/125 ML RTUINJ IV PRN (23:57)
[2017-09-11] MEDS: ACETYLCYSTEINE 10% NEB 400 MG/4 ML VIAL NEB SCH ×4 (02:43→20:52)
[2017-09-11] MEDS: IPRATROPIUM/ALBUTEROL 0.5-2.5 MG/3 ML AMPUL NEB SCH ×4 (02:43→20:53)
[2017-09-11] MEDS: ACETAMINOPHEN 325 MG TABLET PO PRN (03:46)
[2017-09-11] MEDS: LANSOPRAZOLE 15 MG TAB.RAP.DR PO SCH (05:09)
[2017-09-11] MEDS: PREGABALIN 75 MG CAPSULE PO SCH ×3 (05:09→22:01)
[2017-09-11] MEDS: OXYCODONE HCL IR 5 MG TABLET PO SCH ×4 (05:09→23:07)
[2017-09-11 05:31] LABS: HEMATOCRIT 25.7 % (36.0-47.0); HEMOGLOBIN 8.4 g/dL (12.0-15.5); MEAN CORPUSCULAR HEMOGLOBIN 29.3 pg (27.0-33.4); MEAN CORPUSCULAR HGB CONC 32.8 g/dL (32.0-36.0); MEAN CORPUSCULAR VOLUME 89 fl (80-97); PLATELET COUNT 137 10^3/uL (150-450); RED BLOOD COUNT 2.87 10^6/uL (3.72-5.28); RED CELL DISTRIBUTION WIDTH 15.9 % (11.5-14.0); WHITE BLOOD COUNT 9.1 10^3/uL (4.0-10.5)
[2017-09-11 05:45] LABS: PARTIAL THROMBOPLASTIN TIME 36.7 SEC (23.5-35.8); PROTHROMBIN TIME 13.9 SEC (11.4-15.4)
[2017-09-11 05:48] LABS: ALANINE AMINOTRANSFERASE 31 U/L (9-52); ALBUMIN 2.8 g/dL (3.5-5.0); ALKALINE PHOSPHATASE 66 U/L (38-126); ANION GAP 6 (5-19); ASPARTATE AMINO TRANSFERASE 12 U/L (14-36); BILIRUBIN,DIRECT 0.2 mg/dL (0.0-0.4); BILIRUBIN,TOTAL 0.2 mg/dL (0.2-1.3); BLOOD UREA NITROGEN 20 mg/dL (7-20); CALCIUM 8.6 mg/dL (8.4-10.2); CARBON DIOXIDE 31 mmol/L (22-30); CHLORIDE 106 mmol/L (98-107); GLUCOSE 125 mg/dL (75-110); POTASSIUM 3.5 mmol/L (3.6-5.0); SODIUM 143.1 mmol/L (137-145); TOTAL PROTEIN 5.2 g/dL (6.3-8.2)
[2017-09-11 06:58] LABS: ABSOLUTE LYMPHOCYTES (AUTO) 1.2 10^3/uL (0.5-4.7); ABSOLUTE MONOCYTES (AUTO) 0.7 10^3/uL (0.1-1.4); ABSOLUTE NEUT (AUTO) 7.1 10^3/uL (1.7-8.2); BASOPHILS % (AUTO) 0.4 % (0-2); EOSINOPHILS % (AUTO) 0.5 % (0-6); HEMATOCRIT 25.2 % (36.0-47.0); HEMOGLOBIN 8.3 g/dL (12.0-15.5); LYMPHOCYTES % (AUTO) 13.5 % (13-45); MEAN CORPUSCULAR HEMOGLOBIN 29.6 pg (27.0-33.4); MEAN CORPUSCULAR HGB CONC 33.1 g/dL (32.0-36.0); MEAN CORPUSCULAR VOLUME 89 fl (80-97); MONOCYTES % (AUTO) 7.2 % (3-13); PLATELET COUNT 136 10^3/uL (150-450); RED BLOOD COUNT 2.82 10^6/uL (3.72-5.28); RED CELL DISTRIBUTION WIDTH 15.7 % (11.5-14.0); SEGMENTED NEUTROPHILS % (AUTO) 78.4 % (42-78); TOTAL CELLS COUNTED % (AUTO) 100 %; WHITE BLOOD COUNT 9.1 10^3/uL (4.0-10.5)
[2017-09-11] MEDS ORDERED: POTASSIUM CHLORIDE 10 MEQ TABLET.SA PO ONE (08:00)
--- NOTE | 2017-09-11 08:20 | EKG REPORT ---
SEVERITY:- ABNORMAL ECG - SINUS TACHYCARDIA WITH PACS [phone] INCOMPLETE LEFT BUNDLE BRANCH BLOCK : Confirmed by: Inocencio Aguilar MD 11-Sep-2017 08:19:15
[2017-09-11] MEDS: ENOXAPARIN SODIUM INJ 30 MG/0.3 ML DISP.SYRIN SUBCUT SCH (09:03)
[2017-09-11] MEDS: POLYETHYLENE GLYCOL 3350 POWDER 17 GM/1 PACKET PO SCH (09:04)
[2017-09-11] MEDS: DULOXETINE HCL 30 MG CAPSULE.DR PO SCH (09:05)
[2017-09-11] MEDS: BUSPIRONE HCL 10 MG TABLET PO SCH ×2 (09:05→22:01)
[2017-09-11] MEDS: TIOTROPIUM BROMIDE DPI 5 CAP/KIT (18 MCG/CAP) IH SCH (09:06)
[2017-09-11] MEDS: ASPIRIN 81 MG TABLET, CHEWABLE PO SCH (09:06)
[2017-09-11] MEDS: FLUTICASONE/SALMETEROL DISKUS 500-50 MCG/DOSE IH SCH ×2 (09:06→22:02)
[2017-09-11] MEDS: TAMSULOSIN HCL 0.4 MG CAP.SR.24H PO SCH (09:07)
[2017-09-11] MEDS: LORATADINE 10 MG TABLET PO SCH (09:07)
[2017-09-11] MEDS: DOCUSATE SODIUM 100 MG CAPSULE PO SCH ×2 (09:07→17:53)
[2017-09-11] MEDS: PREDNISONE 10 MG TABLET PO SCH (09:08)
[2017-09-11] MEDS: ROFLUMILAST 500 MCG TABLET PO SCH (09:08)
[2017-09-11] MEDS: FERROUS SULFATE 325 MG TABLET PO SCH ×2 (09:08→17:54)
[2017-09-11] MEDS: INSULIN LISPRO 100 UNIT/ML 3 ML VIAL SUBCUT PRN ×3 (13:07→23:08)
[2017-09-11] MEDS ORDERED: MEROPENEM 500 MG in NORMAL SALINE 50 ML IV SCH (14:00)
[2017-09-11] MEDS ORDERED: MEROPENEM 500 MG in NORMAL SALINE 100 ML IV SCH (15:00)
[2017-09-11] MEDS: DILTIAZEM HCL/D5W 125 MG/125 ML RTUINJ IV PRN (15:01)
--- NOTE | 2017-09-11 15:15 | Progress Note ---
Provider Note Provider Note: ID Consult Note Asked to review this patient by Pharmacy. Ms Fernandez is a 72 yo with pmh including COPD, CHF, CKD, paraplegia. She has had multiple previous urine cultures with growth of an ESBL E. coli and carbapenem resistant Klebsiella pneumoniae. She presented on 09/09 with c/o SOB, N/V, and abdominal distention. She was found to be hypotensive, although she had no fever. She was empirically treated with cefepime before being switched to meropenem today. Her WBC count has improved from 26k on presentation to 18.5 and now to 9.1 I personally reviewed her CXR; it is unimpressive for pneumonia. Blood cx have been negative x 2 days. Urine culture has shown growth of ESBL E. coli and a 2nd gram negative sarai, pending identification. Impression/Recommendations Urinary colonization with ESBL E. coli and CRE Klebsiella pneumoniae - Her clinical improvement occurred while on antibiotic therapy that would not be expected to be active against the organisms isolated in her urine, suggesting that these are not true pathogens or clinically relevant. She does not have any obvious infection. - Discontinue antibiotics (meropenem) Gordon Brown MD pager [phone]
[2017-09-11] MEDS ORDERED: NITROGLYCERIN 0.4 MG/TAB 25 TAB/BOTTLE SL PRN (16:20)
--- NOTE | 2017-09-11 16:34 | PDOC PROGRESS REPORT ---
Subjective Progress Note for:: 09/11/17 Subjective:: Patient relates that she feels better. Constipation ois better.Constipation is better. Review of systems All organ systems evaluated and negative except as in subjective No significant laboratories and diagnostics have been reviewed Reason For Visit: SEPTIC SHOCK Physical Exam Vital Signs: Temp Pulse Resp BP Pulse Ox 97.8 F 90 25 H 123/43 L 98 09/11/17 03:21 09/11/17 03:21 09/11/17 04:00 09/11/17 06:01 09/11/17 04:00 Intake & Output 09/09/17 09/10/17 09/11/17 06:59 06:59 06:59 Intake Total 291 Output Total 700 Balance -700 291 Weight 95 kg 96.4 kg General appearance: PRESENT: cooperative, obese Head exam: PRESENT: atraumatic, normocephalic Eye exam: PRESENT: conjunctiva pink, EOMI, PERRLA Ear exam: PRESENT: normal external ear exam Mouth exam: PRESENT: moist Neck exam: PRESENT: full ROM. ABSENT: JVD, lymphadenopathy, tenderness Respiratory exam: PRESENT: clear to auscultation elia Cardiovascular exam: PRESENT: RRR. ABSENT: diastolic murmur Vascular exam: PRESENT: normal capillary refill GI/Abdominal exam: PRESENT: diminished bowel sounds, soft. ABSENT: normal bowel sounds, tenderness Extremities exam: PRESENT: +1 edema. ABSENT: full ROM, tenderness Musculoskeletal exam: ABSENT: ambulatory Neurological exam: PRESENT: alert, awake, oriented to person, oriented to place , oriented to time, oriented to situation, CN II-XII grossly intact Psychiatric exam: PRESENT: appropriate affect, normal mood Skin exam: PRESENT: intact, normal color Results Laboratory Results: 09/11/17 04:50 09/11/17 04:50 09/10/17 09/10/17 09/10/17 05:50 06:10 08:22 WBC RBC Hgb Hct MCV MCH MCHC RDW Plt Count Carbonic Acid Cancelled 1.44 H HCO3/H2CO3 Ratio Cancelled 20:1 ABG pH Cancelled 7.40 ABG pCO2 Cancelled 47.8 H ABG pO2 Cancelled 190.0 H ABG HCO3 Cancelled 29.1 H ABG O2 Saturation Cancelled 99.3 H ABG Base Excess Cancelled 3.9 FiO2 Cancelled 45% Sodium 143.9 Potassium 3.9 Chloride 105 Carbon Dioxide 30 Anion Gap 9 BUN 30 H Creatinine 1.42 H Est GFR ( Amer) 44 L Est GFR (Non-Af Amer) 36 L Glucose 97 Calcium 9.0 Magnesium 2.1 Total Bilirubin 0.5 AST 20 ALT 39 Alkaline Phosphatase 70 Total Protein 5.8 L Albumin 3.2 L 09/11/17 09/11/17 04:50 04:50 WBC 9.1 RBC 2.87 L Hgb 8.4 L Hct 25.7 L MCV 89 MCH 29.3 MCHC 32.8 RDW 15.9 H Plt Count 137 L Carbonic Acid HCO3/H2CO3 Ratio ABG pH ABG pCO2 ABG pO2 ABG HCO3 ABG O2 Saturation ABG Base Excess FiO2 Sodium 143.1 Potassium 3.5 L Chloride 106 Carbon Dioxide 31 H Anion Gap 6 BUN 20 Creatinine 1.22 Est GFR ( Amer) 52 L Est GFR (Non-Af Amer) 43 L Glucose 125 H Calcium 8.6 Magnesium 2.7 H Total Bilirubin 0.2 AST 12 L ALT 31 Alkaline Phosphatase 66 Total Protein 5.2 L Albumin 2.8 L Impressions: Abdomen/Pelvis CT 09/09/17 13:41 IMPRESSION: 1 No evidence of acute process in the abdomen or pelvis. 2. Constipation. Colonic diverticulosis without evidence of diverticulitis. 3 Bilateral renal cysts. 4. The patient's total left hip prostheses produces artifact which limits detail in the pelvic region. The acetabular component of the prostheses protrudes into the pelvic region. The prostheses is superiorly elevated. 5. IVC filter. One of the IVC filter prongs protrudes outside of the lumen, located at about the level of the superior pole of the right kidney. No surrounding soft tissue mass or hematoma. 6. Additional findings as above. Chest X-Ray 09/09/17 16:46 IMPRESSION: Cardiomegaly without CHF. Assessment & Plan - Diagnosis (1) COPD (chronic obstructive pulmonary disease) Is this a current diagnosis for this admission?: Yes Plan: To continue outpatient regimen. At the present time appears to be stable from the standpoint of view (2) Acute renal failure Qualifiers: Acute renal failure type: unspecified Qualified Code(s): N17.9 - Acute kidney failure, unspecified Is this a current diagnosis for this admission?: Yes Plan: Resolved (3) Septic shock Is this a current diagnosis for this admission?: No Plan: Suspect the patient may be having autonomic dysfunction. Chart evaluated by Dr. Brown who thinks that patient at the present time is colonized (4) UTI (urinary tract infection) Qualifiers: Urinary tract infection type: site unspecified Hematuria presence: without hematuria Qualified Code(s): N39.0 - Urinary tract infection, site not specified Is this a current diagnosis for this admission?: No Plan: Patient growing as usual ESBL organism and a second gram-negative bacilli, her most recent hospitalization. Chart evaluated by Dr. Brown who thinks that patient is colonized. Will discontinue meropenem. I agree with his recommendation (5) Acute and chronic respiratory failure with hypoxia Is this a current diagnosis for this admission?: Yes Plan: Back to baseline (6) Adrenal insufficiency Is this a current diagnosis for this admission?: Yes Plan: Continue prednisone as outpatient (7) COR (chronic cor pulmonale) Is this a current diagnosis for this admission?: Yes Plan: Appears to be stable. Restart Lasix (8) Constipation Qualifiers: Constipation type: unspecified constipation type Qualified Code(s): K59.00 - Constipation, unspecified Is this a current diagnosis for this admission?: Yes Plan: Long-standing problem with patient. To continue outpatient regimen (9) Diabetes mellitus Qualifiers: Diabetes mellitus type: type 2 Diabetes mellitus retirement insulin use: with retirement use Diabetes mellitus complication detail: with chronic kidney disease Chronic kidney disease stage: stage 3 (moderate) Is this a current diagnosis for this admission?: Yes Plan: Continue insulin sliding scale and bedside glucose before meals and at bedtime (10) Functional quadriplegia Is this a current diagnosis for this admission?: Yes Plan: Long-standing problem. Decubiti precautions (11) Hypokalemia Is this a current diagnosis for this admission?: Yes Plan: Replace orally and trend - Time Time Spent with patient: 15-24 minutes Medications reviewed and adjusted accordingly: Yes Anticipated discharge: SNF Within: within 48 hours - Inpatient Certification Based on my medical assessment, after consideration of the patient's comorbidities, presenting symptoms, or acuity I expect that the services needed warrant INPATIENT care.: Yes I certify that my determination is in accordance with my understanding of Medicare's requirements for reasonable and necessary INPATIENT services [42 CFR 412.3e].: Yes Medical Necessity: Need Close Monitoring Due to Risk of Patient Decompensation
[2017-09-11] MEDS: FUROSEMIDE 20 MG TABLET PO SCH (17:53)
[2017-09-11] MEDS ORDERED: DOCUSATE SODIUM 100 MG CAPSULE PO SCH (18:00)
[2017-09-11] MEDS: LACTULOSE SYRUP 20 GM/30 ML UDCUP PO PRN (22:00)
[2017-09-11] MEDS: RANOLAZINE 500 MG TAB.SR.12H PO SCH (22:00)
[2017-09-11] MEDS: HYDRALAZINE HCL 25 MG TABLET PO SCH (22:00)
[2017-09-11] MEDS: SENNOSIDES/DOCUSATE 8.6-50 MG 1 EACH TABLET PO SCH (22:01)
[2017-09-11] MEDS: MELATONIN 5 MG TABLET PO SCH (22:02)
[2017-09-12] MEDS: ACETYLCYSTEINE 10% NEB 400 MG/4 ML VIAL NEB SCH ×4 (01:53→21:11)
[2017-09-12] MEDS: IPRATROPIUM/ALBUTEROL 0.5-2.5 MG/3 ML AMPUL NEB SCH ×4 (01:53→21:10)
[2017-09-12 04:32] LABS: HEMATOCRIT 25.1 % (36.0-47.0); HEMOGLOBIN 8.3 g/dL (12.0-15.5); MEAN CORPUSCULAR HEMOGLOBIN 29.5 pg (27.0-33.4); MEAN CORPUSCULAR HGB CONC 33.1 g/dL (32.0-36.0); MEAN CORPUSCULAR VOLUME 89 fl (80-97); PLATELET COUNT 134 10^3/uL (150-450); RED BLOOD COUNT 2.82 10^6/uL (3.72-5.28); RED CELL DISTRIBUTION WIDTH 15.7 % (11.5-14.0)
[2017-09-12 04:47] LABS: ALANINE AMINOTRANSFERASE 33 U/L (9-52); ALKALINE PHOSPHATASE 66 U/L (38-126); ANION GAP 7 (5-19); ASPARTATE AMINO TRANSFERASE 10 U/L (14-36); BILIRUBIN,DIRECT 0.1 mg/dL (0.0-0.4); BILIRUBIN,TOTAL 0.2 mg/dL (0.2-1.3); BLOOD UREA NITROGEN 15 mg/dL (7-20); CALCIUM 9.2 mg/dL (8.4-10.2); CARBON DIOXIDE 34 mmol/L (22-30); CHLORIDE 102 mmol/L (98-107); GLUCOSE 106 mg/dL (75-110); POTASSIUM 3.9 mmol/L (3.6-5.0); SODIUM 142.6 mmol/L (137-145); TOTAL PROTEIN 5.3 g/dL (6.3-8.2)
[2017-09-12 04:58] LABS: INTERNATIONAL RATION (INR) 0.96; PROTHROMBIN TIME 13.5 SEC (11.4-15.4)
[2017-09-12 04:59] LABS: PARTIAL THROMBOPLASTIN TIME 36.6 SEC (23.5-35.8)
[2017-09-12] MEDS: BACLOFEN 10 MG TABLET PO PRN ×2 (05:50→22:07)
[2017-09-12] MEDS: ACETAMINOPHEN 325 MG TABLET PO PRN (05:51)
[2017-09-12] MEDS: HYDRALAZINE HCL 25 MG TABLET PO SCH ×3 (05:54→22:07)
[2017-09-12] MEDS: LANSOPRAZOLE 15 MG TAB.RAP.DR PO SCH (05:55)
[2017-09-12] MEDS: OXYCODONE HCL IR 5 MG TABLET PO SCH ×3 (05:55→17:35)
[2017-09-12] MEDS: PREGABALIN 75 MG CAPSULE PO SCH ×3 (05:55→22:07)
[2017-09-12] MEDS ORDERED: POTASSIUM CHLORIDE 10 MEQ TABLET.SA PO ONE (08:30)
[2017-09-12] MEDS: FUROSEMIDE 40 MG TABLET PO SCH (08:35)
[2017-09-12] MEDS: LORATADINE 10 MG TABLET PO SCH (10:40)
[2017-09-12] MEDS: BUSPIRONE HCL 10 MG TABLET PO SCH ×2 (10:40→22:07)
[2017-09-12] MEDS: DULOXETINE HCL 30 MG CAPSULE.DR PO SCH (10:40)
[2017-09-12] MEDS: ASPIRIN 81 MG TABLET, CHEWABLE PO SCH (10:40)
[2017-09-12] MEDS: PREDNISONE 10 MG TABLET PO SCH (10:41)
[2017-09-12] MEDS: POTASSIUM CHLORIDE 10 MEQ TABLET.SA PO SCH (10:41)
[2017-09-12] MEDS: RANOLAZINE 500 MG TAB.SR.12H PO SCH ×2 (10:41→22:08)
[2017-09-12] MEDS: METOPROLOL SUCCINATE 50 MG TAB.SR.24H PO SCH (10:41)
[2017-09-12] MEDS: POLYETHYLENE GLYCOL 3350 POWDER 17 GM/1 PACKET PO SCH (10:42)
[2017-09-12] MEDS: FERROUS SULFATE 325 MG TABLET PO SCH ×2 (10:42→17:34)
[2017-09-12] MEDS: ROFLUMILAST 500 MCG TABLET PO SCH (10:42)
[2017-09-12] MEDS: DOCUSATE SODIUM 100 MG CAPSULE PO SCH ×2 (10:42→17:34)
[2017-09-12] MEDS: TAMSULOSIN HCL 0.4 MG CAP.SR.24H PO SCH (10:42)
[2017-09-12] MEDS: TIOTROPIUM BROMIDE DPI 5 CAP/KIT (18 MCG/CAP) IH SCH (10:43)
[2017-09-12] MEDS: FLUTICASONE NASAL SPRAY 50 MCG/SPRY 120 SPRAY/16 GM NASL SCH (10:44)
[2017-09-12] MEDS: FLUTICASONE/SALMETEROL DISKUS 500-50 MCG/DOSE IH SCH ×2 (10:45→22:07)
[2017-09-12] MEDS: ENOXAPARIN SODIUM INJ 30 MG/0.3 ML DISP.SYRIN SUBCUT SCH (10:45)
[2017-09-12] MEDS: DILTIAZEM HCL/D5W 125 MG/125 ML RTUINJ IV PRN (12:32)
[2017-09-12] MEDS: PROMETHAZINE HCL 25 MG TABLET PO PRN (14:03)
[2017-09-12] MEDS: FUROSEMIDE 20 MG TABLET PO SCH (17:34)
[2017-09-12] MEDS: INSULIN LISPRO 100 UNIT/ML 3 ML VIAL SUBCUT PRN (17:34)
[2017-09-12] MEDS ORDERED: DILTIAZEM HCL 60 MG TABLET PO ONE (20:00)
--- NOTE | 2017-09-12 20:41 | PDOC PROGRESS REPORT ---
Subjective Progress Note for:: 09/12/17 Subjective:: Patient relates that she feels better. Requesting por-a-cath however she has history of infection. Patient was informed about ID impression about findings of urine. Patient made aware that she is currently doing the best she can be. Review of systems All organ systems evaluated and negative except as in subjective No significant laboratories and diagnostics have been reviewed Reason For Visit: SEPTIC SHOCK Physical Exam Vital Signs: Temp Pulse Resp BP Pulse Ox 98.0 F 101 H 18 126/58 H 92 09/12/17 00:05 09/12/17 02:00 09/12/17 01:55 09/12/17 02:01 09/11/17 20:06 Intake & Output 09/10/17 09/11/17 09/12/17 06:59 06:59 06:59 Intake Total 391 472 Output Total 700 Balance -700 391 472 Weight 95 kg 97 kg 97 kg General appearance: PRESENT: cooperative, obese Head exam: PRESENT: atraumatic, normocephalic Eye exam: PRESENT: conjunctiva pink, EOMI, PERRLA Mouth exam: PRESENT: moist Neck exam: PRESENT: full ROM. ABSENT: JVD, lymphadenopathy, tenderness Respiratory exam: PRESENT: clear to auscultation elia Cardiovascular exam: PRESENT: tachycardia. ABSENT: diastolic murmur, systolic murmur GI/Abdominal exam: PRESENT: normal bowel sounds, soft, tenderness Extremities exam: PRESENT: +2 edema. ABSENT: full ROM, tenderness Musculoskeletal exam: ABSENT: ambulatory Neurological exam: PRESENT: alert, awake, oriented to person, oriented to place , oriented to time, oriented to situation Psychiatric exam: PRESENT: appropriate affect, normal mood Skin exam: PRESENT: normal color Results Laboratory Results: 09/12/17 04:15 09/12/17 04:15 09/11/17 09/12/17 09/12/17 06:43 04:15 04:15 WBC 9.1 6.0 RBC 2.82 L 2.82 L Hgb 8.3 L 8.3 L Hct 25.2 L 25.1 L MCV 89 89 MCH 29.6 29.5 MCHC 33.1 33.1 RDW 15.7 H 15.7 H Plt Count 136 L 134 L Seg Neutrophils % 78.4 H Lymphocytes % 13.5 Monocytes % 7.2 Eosinophils % 0.5 Basophils % 0.4 Absolute Neutrophils 7.1 Absolute Lymphocytes 1.2 Absolute Monocytes 0.7 Absolute Eosinophils 0.0 Absolute Basophils 0.0 Sodium 142.6 Potassium 3.9 Chloride 102 Carbon Dioxide 34 H Anion Gap 7 BUN 15 Creatinine 0.96 Est GFR ( Amer) > 60 Est GFR (Non-Af Amer) 57 L Glucose 106 Calcium 9.2 Magnesium 2.2 Total Bilirubin 0.2 AST 10 L ALT 33 Alkaline Phosphatase 66 Total Protein 5.3 L Albumin 3.0 L Impressions: Abdomen/Pelvis CT 09/09/17 13:41 IMPRESSION: 1 No evidence of acute process in the abdomen or pelvis. 2. Constipation. Colonic diverticulosis without evidence of diverticulitis. 3 Bilateral renal cysts. 4. The patient's total left hip prostheses produces artifact which limits detail in the pelvic region. The acetabular component of the prostheses protrudes into the pelvic region. The prostheses is superiorly elevated. 5. IVC filter. One of the IVC filter prongs protrudes outside of the lumen, located at about the level of the superior pole of the right kidney. No surrounding soft tissue mass or hematoma. 6. Additional findings as above. Chest X-Ray 09/09/17 16:46 IMPRESSION: Cardiomegaly without CHF. Assessment & Plan - Diagnosis (1) COPD (chronic obstructive pulmonary disease) Qualifiers: Emphysema type: unspecified Is this a current diagnosis for this admission?: Yes Plan: To continue outpatient regimen. At the present time appears to be stable from this standpoint of view (2) Acute renal failure Qualifiers: Acute renal failure type: unspecified Qualified Code(s): N17.9 - Acute kidney failure, unspecified Is this a current diagnosis for this admission?: Yes Plan: Resolved (3) Septic shock Is this a current diagnosis for this admission?: No Plan: Suspect the patient may be having autonomic dysfunction. Chart evaluated by Dr. Brown who thinks that patient at the present time is colonized (4) UTI (urinary tract infection) Qualifiers: Urinary tract infection type: site unspecified Hematuria presence: without hematuria Qualified Code(s): N39.0 - Urinary tract infection, site not specified Is this a current diagnosis for this admission?: No Plan: Patient growing as usual ESBL organism and a second gram-negative bacilli as in her most recent hospitalization. Chart evaluated by Dr. Brown who thinks that patient is colonized. I agree with his recommendation (5) Acute and chronic respiratory failure with hypoxia Is this a current diagnosis for this admission?: Yes Plan: Back to baseline (6) Adrenal insufficiency Is this a current diagnosis for this admission?: Yes Plan: Continue prednisone as outpatient (7) COR (chronic cor pulmonale) Is this a current diagnosis for this admission?: Yes Plan: Appears to be stable. Continue Lasixmas outpatient (8) Constipation Qualifiers: Constipation type: unspecified constipation type Qualified Code(s): K59.00 - Constipation, unspecified Is this a current diagnosis for this admission?: Yes Plan: Long-standing problem with patient. To continue outpatient regimen (9) Diabetes mellitus Qualifiers: Diabetes mellitus type: type 2 Diabetes mellitus longterm insulin use: with longterm use Diabetes mellitus complication detail: with chronic kidney disease Chronic kidney disease stage: stage 3 (moderate) Is this a current diagnosis for this admission?: Yes Plan: Continue insulin sliding scale and bedside glucose before meals and at bedtime (10) Functional quadriplegia Is this a current diagnosis for this admission?: Yes Plan: Long-standing problem. 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 Is this a current diagnosis for this admission?: Yes Plan: Patient made aware that will tend to recur - Time Time Spent with patient: 15-24 minutes Medications reviewed and adjusted accordingly: Yes Anticipated discharge: SNF Within: within 48 hours - Inpatient Certification Based on my medical assessment, after consideration of the patient's comorbidities, presenting symptoms, or acuity I expect that the services needed warrant INPATIENT care.: Yes I certify that my determination is in accordance with my understanding of Medicare's requirements for reasonable and necessary INPATIENT services [42 CFR 412.3e].: Yes Medical Necessity: Need Close Monitoring Due to Risk of Patient Decompensation
[2017-09-12] MEDS: MELATONIN 5 MG TABLET PO SCH (22:06)
[2017-09-12] MEDS: SENNOSIDES/DOCUSATE 8.6-50 MG 1 EACH TABLET PO SCH (22:07)
[2017-09-13] MEDS: OXYCODONE HCL IR 5 MG TABLET PO SCH ×5 (00:03→23:58)
[2017-09-13] MEDS: ACETYLCYSTEINE 10% NEB 400 MG/4 ML VIAL NEB SCH ×4 (01:15→20:54)
[2017-09-13] MEDS: IPRATROPIUM/ALBUTEROL 0.5-2.5 MG/3 ML AMPUL NEB SCH ×4 (01:15→20:54)
[2017-09-13] MEDS: HYDRALAZINE HCL 25 MG TABLET PO SCH ×3 (05:48→21:56)
[2017-09-13] MEDS: LANSOPRAZOLE 15 MG TAB.RAP.DR PO SCH (05:49)
[2017-09-13] MEDS: DILTIAZEM HCL 60 MG TABLET PO SCH ×3 (05:49→21:55)
[2017-09-13] MEDS: PREGABALIN 75 MG CAPSULE PO SCH ×3 (05:50→21:55)
[2017-09-13] MEDS: FUROSEMIDE 40 MG TABLET PO SCH (08:07)
[2017-09-13] MEDS: FLUTICASONE/SALMETEROL DISKUS 500-50 MCG/DOSE IH SCH ×2 (11:02→21:54)
[2017-09-13] MEDS: ROFLUMILAST 500 MCG TABLET PO SCH (11:03)
[2017-09-13] MEDS: FLUTICASONE NASAL SPRAY 50 MCG/SPRY 120 SPRAY/16 GM NASL SCH (11:03)
[2017-09-13] MEDS: TIOTROPIUM BROMIDE DPI 5 CAP/KIT (18 MCG/CAP) IH SCH (11:04)
[2017-09-13] MEDS: POLYETHYLENE GLYCOL 3350 POWDER 17 GM/1 PACKET PO SCH (11:07)
[2017-09-13] MEDS: DULOXETINE HCL 30 MG CAPSULE.DR PO SCH (11:08)
[2017-09-13] MEDS: DOCUSATE SODIUM 100 MG CAPSULE PO SCH ×2 (11:08→17:22)
[2017-09-13] MEDS: FERROUS SULFATE 325 MG TABLET PO SCH ×2 (11:08→17:22)
[2017-09-13] MEDS: PREDNISONE 10 MG TABLET PO SCH (11:08)
[2017-09-13] MEDS: METOPROLOL SUCCINATE 50 MG TAB.SR.24H PO SCH (11:09)
[2017-09-13] MEDS: ASPIRIN 81 MG TABLET, CHEWABLE PO SCH (11:09)
[2017-09-13] MEDS: BUSPIRONE HCL 10 MG TABLET PO SCH ×2 (11:10→21:56)
[2017-09-13] MEDS: TAMSULOSIN HCL 0.4 MG CAP.SR.24H PO SCH (11:10)
[2017-09-13] MEDS: POTASSIUM CHLORIDE 10 MEQ TABLET.SA PO SCH (11:10)
[2017-09-13] MEDS: FENTANYL 25 MCG/HR PATCH.TD72 TOP SCH (11:11)
[2017-09-13] MEDS: RANOLAZINE 500 MG TAB.SR.12H PO SCH ×2 (11:11→21:56)
[2017-09-13] MEDS: LORATADINE 10 MG TABLET PO SCH (11:11)
[2017-09-13] MEDS: ENOXAPARIN SODIUM INJ 30 MG/0.3 ML DISP.SYRIN SUBCUT SCH (11:12)
[2017-09-13] MEDS: FUROSEMIDE 20 MG TABLET PO SCH (17:23)
--- NOTE | 2017-09-13 18:46 | PDOC PROGRESS REPORT ---
Subjective Progress Note for:: 09/13/17 Subjective:: No complaints voiced today Review of systems All organ systems evaluated and negative except as in subjective No significant laboratories and diagnostics have been reviewed Reason For Visit: SEPTIC SHOCK Physical Exam Vital Signs: Temp Pulse Resp BP Pulse Ox 98.3 F 78 18 122/62 98 09/13/17 15:39 09/13/17 15:39 09/13/17 15:39 09/13/17 15:39 09/13/17 15:39 Intake & Output 09/12/17 09/13/17 09/14/17 06:59 06:59 06:59 Intake Total 769 673 610 Output Total 250 Balance 769 673 360 Weight 96.8 kg 94.4 kg General appearance: PRESENT: cooperative, obese Head exam: PRESENT: atraumatic, normocephalic Eye exam: PRESENT: conjunctiva pink, EOMI, PERRLA Ear exam: PRESENT: normal external ear exam Mouth exam: PRESENT: moist Neck exam: PRESENT: full ROM. ABSENT: JVD, lymphadenopathy, tenderness Respiratory exam: PRESENT: other - Adequate movement of air with scattered rhonchi Cardiovascular exam: PRESENT: RRR. ABSENT: diastolic murmur, systolic murmur Vascular exam: PRESENT: normal capillary refill GI/Abdominal exam: PRESENT: normal bowel sounds, soft. ABSENT: tenderness Extremities exam: PRESENT: +2 edema. ABSENT: clubbing Musculoskeletal exam: ABSENT: ambulatory Neurological exam: PRESENT: alert, awake, oriented to person, oriented to place , oriented to time, oriented to situation, CN II-XII grossly intact Psychiatric exam: PRESENT: depressed. ABSENT: appropriate affect Skin exam: PRESENT: normal color Results Laboratory Results: 09/12/17 04:15 09/12/17 04:15 Impressions: Abdomen/Pelvis CT 09/09/17 13:41 IMPRESSION: 1 No evidence of acute process in the abdomen or pelvis. 2. Constipation. Colonic diverticulosis without evidence of diverticulitis. 3 Bilateral renal cysts. 4. The patient's total left hip prostheses produces artifact which limits detail in the pelvic region. The acetabular component of the prostheses protrudes into the pelvic region. The prostheses is superiorly elevated. 5. IVC filter. One of the IVC filter prongs protrudes outside of the lumen, located at about the level of the superior pole of the right kidney. No surrounding soft tissue mass or hematoma. 6. Additional findings as above. Chest X-Ray 09/09/17 16:46 IMPRESSION: Cardiomegaly without CHF. Assessment & Plan - Diagnosis (1) COPD (chronic obstructive pulmonary disease) Qualifiers: Emphysema type: unspecified Is this a current diagnosis for this admission?: Yes Plan: To continue outpatient regimen. At the present time appears to be stable from this standpoint of view (2) Acute renal failure Qualifiers: Acute renal failure type: unspecified Qualified Code(s): N17.9 - Acute kidney failure, unspecified Is this a current diagnosis for this admission?: Yes Plan: Resolved (3) Septic shock Is this a current diagnosis for this admission?: No Plan: Suspect the patient may be having autonomic dysfunction. Chart evaluated by Dr. Brown who thinks that patient at the present time is colonized (4) UTI (urinary tract infection) Qualifiers: Urinary tract infection type: site unspecified Hematuria presence: without hematuria Qualified Code(s): N39.0 - Urinary tract infection, site not specified Is this a current diagnosis for this admission?: No Plan: Patient growing as usual ESBL organism and a second gram-negative bacilli as in her most recent hospitalization. Chart evaluated by Dr. Brown who thinks that patient is colonized. I agree with his recommendation (5) Acute and chronic respiratory failure with hypoxia Is this a current diagnosis for this admission?: Yes Plan: Back to baseline (6) Adrenal insufficiency Is this a current diagnosis for this admission?: Yes (7) COR (chronic cor pulmonale) Is this a current diagnosis for this admission?: Yes Plan: Appears to be stable. Continue Lasix as outpatient (8) Constipation Qualifiers: Constipation type: unspecified constipation type Qualified Code(s): K59.00 - Constipation, unspecified Is this a current diagnosis for this admission?: Yes Plan: Long-standing problem with patient. 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 Is this a current diagnosis for this admission?: Yes Plan: Patient made aware that will tend to recur - Time Time Spent with patient: Less than 15 minutes Medications reviewed and adjusted accordingly: Yes Anticipated discharge: SNF Within: within 24 hours - Inpatient Certification Based on my medical assessment, after consideration of the patient's comorbidities, presenting symptoms, or acuity I expect that the services needed warrant INPATIENT care.: Yes I certify that my determination is in accordance with my understanding of Medicare's requirements for reasonable and necessary INPATIENT services [42 CFR 412.3e].: Yes Medical Necessity: Need Close Monitoring Due to Risk of Patient Decompensation
[2017-09-13] MEDS: MELATONIN 5 MG TABLET PO SCH (21:54)
[2017-09-13] MEDS: SENNOSIDES/DOCUSATE 8.6-50 MG 1 EACH TABLET PO SCH (21:55)
[2017-09-13] MEDS: INSULIN LISPRO 100 UNIT/ML 3 ML VIAL SUBCUT PRN (22:43)
[2017-09-14] MEDS: IPRATROPIUM/ALBUTEROL 0.5-2.5 MG/3 ML AMPUL NEB SCH ×4 (02:00→20:46)
[2017-09-14] MEDS: ACETYLCYSTEINE 10% NEB 400 MG/4 ML VIAL NEB SCH ×4 (02:00→20:45)
[2017-09-14] MEDS: DILTIAZEM HCL 60 MG TABLET PO SCH ×3 (06:06→21:32)
[2017-09-14] MEDS: HYDRALAZINE HCL 25 MG TABLET PO SCH ×3 (06:06→21:14)
[2017-09-14] MEDS: LANSOPRAZOLE 15 MG TAB.RAP.DR PO SCH (06:07)
[2017-09-14] MEDS: PREGABALIN 75 MG CAPSULE PO SCH ×3 (06:07→21:32)
[2017-09-14] MEDS: OXYCODONE HCL IR 5 MG TABLET PO SCH ×4 (06:08→23:40)
[2017-09-14] MEDS: LACTULOSE SYRUP 20 GM/30 ML UDCUP PO PRN (06:08)
[2017-09-14] MEDS: ENOXAPARIN SODIUM INJ 30 MG/0.3 ML DISP.SYRIN SUBCUT SCH (09:07)
[2017-09-14] MEDS: TAMSULOSIN HCL 0.4 MG CAP.SR.24H PO SCH (09:15)
[2017-09-14] MEDS: POTASSIUM CHLORIDE 10 MEQ TABLET.SA PO SCH (09:15)
[2017-09-14] MEDS: RANOLAZINE 500 MG TAB.SR.12H PO SCH ×2 (09:15→21:32)
[2017-09-14] MEDS: ASPIRIN 81 MG TABLET, CHEWABLE PO SCH (09:15)
[2017-09-14] MEDS: BUSPIRONE HCL 10 MG TABLET PO SCH ×2 (09:16→21:32)
[2017-09-14] MEDS: DOCUSATE SODIUM 100 MG CAPSULE PO SCH ×2 (09:16→17:48)
[2017-09-14] MEDS: METOPROLOL SUCCINATE 50 MG TAB.SR.24H PO SCH (09:17)
[2017-09-14] MEDS: PROMETHAZINE HCL 25 MG TABLET PO PRN (09:17)
[2017-09-14] MEDS: PREDNISONE 10 MG TABLET PO SCH (09:17)
[2017-09-14] MEDS: LORATADINE 10 MG TABLET PO SCH (09:18)
[2017-09-14] MEDS: DULOXETINE HCL 30 MG CAPSULE.DR PO SCH (09:18)
[2017-09-14] MEDS: FERROUS SULFATE 325 MG TABLET PO SCH ×2 (09:18→17:48)
[2017-09-14] MEDS: FUROSEMIDE 40 MG TABLET PO SCH (09:18)
[2017-09-14] MEDS: POLYETHYLENE GLYCOL 3350 POWDER 17 GM/1 PACKET PO SCH (09:19)
[2017-09-14] MEDS: TIOTROPIUM BROMIDE DPI 5 CAP/KIT (18 MCG/CAP) IH SCH (09:20)
[2017-09-14] MEDS: FLUTICASONE NASAL SPRAY 50 MCG/SPRY 120 SPRAY/16 GM NASL SCH (09:20)
[2017-09-14] MEDS: FLUTICASONE/SALMETEROL DISKUS 500-50 MCG/DOSE IH SCH ×2 (09:20→21:32)
[2017-09-14] MEDS: ROFLUMILAST 500 MCG TABLET PO SCH (09:21)
[2017-09-14] MEDS: OXYCODONE-ACETAMINOPHEN 5-325 MG TABLET PO PRN (13:48)
--- NOTE | 2017-09-14 16:54 | PDOC PROGRESS REPORT ---
Subjective Progress Note for:: 09/14/17 Subjective:: No complaints voiced today Review of systems All organ systems evaluated and negative except as in subjective No significant laboratories and diagnostics have been reviewed Reason For Visit: SEPTIC SHOCK Physical Exam Vital Signs: Temp Pulse Resp BP Pulse Ox 98.5 F 79 20 117/43 L 97 09/14/17 16:19 09/14/17 16:19 09/14/17 16:19 09/14/17 16:19 09/14/17 16:19 Intake & Output 09/13/17 09/14/17 09/15/17 06:59 06:59 06:59 Intake Total 673 1415 355 Output Total 250 Balance 673 1165 355 Weight 94.4 kg 94 kg General appearance: PRESENT: no acute distress, cooperative, obese Head exam: PRESENT: atraumatic, normocephalic Eye exam: PRESENT: conjunctiva pink, EOMI, PERRLA Ear exam: PRESENT: normal external ear exam Mouth exam: PRESENT: moist Neck exam: PRESENT: full ROM. ABSENT: JVD, lymphadenopathy, tenderness Respiratory exam: PRESENT: rhonchi - Adequate movement of air. ABSENT: tachypnea, unlabored Cardiovascular exam: PRESENT: RRR. ABSENT: diastolic murmur, systolic murmur GI/Abdominal exam: PRESENT: normal bowel sounds, soft. ABSENT: tenderness Extremities exam: PRESENT: +2 edema. ABSENT: full ROM, tenderness Musculoskeletal exam: ABSENT: ambulatory Neurological exam: PRESENT: alert, awake, oriented to person, oriented to place , oriented to time, oriented to situation, CN II-XII grossly intact Psychiatric exam: PRESENT: depressed Skin exam: PRESENT: intact, normal color Results Laboratory Results: 09/12/17 04:15 09/12/17 04:15 Impressions: Abdomen/Pelvis CT 09/09/17 13:41 IMPRESSION: 1 No evidence of acute process in the abdomen or pelvis. 2. Constipation. Colonic diverticulosis without evidence of diverticulitis. 3 Bilateral renal cysts. 4. The patient's total left hip prostheses produces artifact which limits detail in the pelvic region. The acetabular component of the prostheses protrudes into the pelvic region. The prostheses is superiorly elevated. 5. IVC filter. One of the IVC filter prongs protrudes outside of the lumen, located at about the level of the superior pole of the right kidney. No surrounding soft tissue mass or hematoma. 6. Additional findings as above. Chest X-Ray 09/09/17 16:46 IMPRESSION: Cardiomegaly without CHF. Assessment & Plan - Diagnosis (1) COPD (chronic obstructive pulmonary disease) Qualifiers: Emphysema type: unspecified Is this a current diagnosis for this admission?: Yes Plan: To continue outpatient regimen. At the present time appears to be stable from this standpoint of view (2) Acute renal failure Qualifiers: Acute renal failure type: unspecified Qualified Code(s): N17.9 - Acute kidney failure, unspecified Is this a current diagnosis for this admission?: Yes Plan: Resolved (3) UTI (urinary tract infection) Qualifiers: Urinary tract infection type: site unspecified Hematuria presence: without hematuria Qualified Code(s): N39.0 - Urinary tract infection, site not specified Is this a current diagnosis for this admission?: No (4) Acute and chronic respiratory failure with hypoxia Is this a current diagnosis for this admission?: Yes Plan: Back to baseline (5) Adrenal insufficiency Is this a current diagnosis for this admission?: Yes Plan: Continue prednisone as outpatient (6) COR (chronic cor pulmonale) Is this a current diagnosis for this admission?: Yes Plan: Appears to be stable. Continue Lasix as outpatient (7) Constipation Qualifiers: Constipation type: unspecified constipation type Qualified Code(s): K59.00 - Constipation, unspecified Is this a current diagnosis for this admission?: Yes Plan: Long-standing problem with patient. 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 Is this a current diagnosis for this admission?: Yes Plan: Patient made aware that will tend to recur - Time Time Spent with patient: Less than 15 minutes Medications reviewed and adjusted accordingly: Yes Anticipated discharge: SNF Within: within 48 hours - Inpatient Certification Based on my medical assessment, after consideration of the patient's comorbidities, presenting symptoms, or acuity I expect that the services needed warrant INPATIENT care.: Yes I certify that my determination is in accordance with my understanding of Medicare's requirements for reasonable and necessary INPATIENT services [42 CFR 412.3e].: Yes Medical Necessity: Need Close Monitoring Due to Risk of Patient Decompensation
[2017-09-14] MEDS: INSULIN LISPRO 100 UNIT/ML 3 ML VIAL SUBCUT PRN ×2 (17:46→22:50)
[2017-09-14] MEDS: FUROSEMIDE 20 MG TABLET PO SCH (17:48)
[2017-09-14] MEDS: BACLOFEN 10 MG TABLET PO PRN (17:48)
[2017-09-14] MEDS: MELATONIN 5 MG TABLET PO SCH (21:32)
[2017-09-14] MEDS: SENNOSIDES/DOCUSATE 8.6-50 MG 1 EACH TABLET PO SCH (21:32)
[2017-09-15] MEDS: IPRATROPIUM/ALBUTEROL 0.5-2.5 MG/3 ML AMPUL NEB SCH ×4 (02:03→20:36)
[2017-09-15] MEDS: ACETYLCYSTEINE 10% NEB 400 MG/4 ML VIAL NEB SCH ×4 (02:04→20:36)
[2017-09-15] MEDS: HYDRALAZINE HCL 25 MG TABLET PO SCH ×3 (05:05→21:21)
[2017-09-15] MEDS: DILTIAZEM HCL 60 MG TABLET PO SCH ×3 (05:14→21:27)
[2017-09-15] MEDS: LANSOPRAZOLE 15 MG TAB.RAP.DR PO SCH (05:14)
[2017-09-15] MEDS: PREGABALIN 75 MG CAPSULE PO SCH ×3 (05:14→21:27)
[2017-09-15] MEDS: OXYCODONE HCL IR 5 MG TABLET PO SCH ×3 (05:16→17:31)
[2017-09-15 06:36] LABS: ALANINE AMINOTRANSFERASE 17 U/L (9-52); ALBUMIN 3.3 g/dL (3.5-5.0); ALKALINE PHOSPHATASE 75 U/L (38-126); ANION GAP 10 (5-19); ASPARTATE AMINO TRANSFERASE 10 U/L (14-36); BILIRUBIN,DIRECT 0.3 mg/dL (0.0-0.4); BILIRUBIN,TOTAL 0.4 mg/dL (0.2-1.3); BLOOD UREA NITROGEN 19 mg/dL (7-20); CALCIUM 9.8 mg/dL (8.4-10.2); CARBON DIOXIDE 39 mmol/L (22-30); CHLORIDE 95 mmol/L (98-107); GLUCOSE 109 mg/dL (75-110); POTASSIUM 3.8 mmol/L (3.6-5.0); SODIUM 143.5 mmol/L (137-145); TOTAL PROTEIN 5.7 g/dL (6.3-8.2)
[2017-09-15 08:03] LABS: HEMATOCRIT 28.3 % (36.0-47.0); HEMOGLOBIN 9.3 g/dL (12.0-15.5); MEAN CORPUSCULAR HEMOGLOBIN 29.3 pg (27.0-33.4); MEAN CORPUSCULAR VOLUME 89 fl (80-97); PLATELET COUNT 187 10^3/uL (150-450); RED BLOOD COUNT 3.19 10^6/uL (3.72-5.28); RED CELL DISTRIBUTION WIDTH 15.1 % (11.5-14.0); WHITE BLOOD COUNT 6.8 10^3/uL (4.0-10.5)
[2017-09-15 08:21] LABS: ABSOLUTE LYMPHOCYTES# (MANUAL) 1.3 10^3/uL (0.5-4.7); ABSOLUTE MONOCYTES # (MANUAL) 0.2 10^3/uL (0.1-1.4); ABSOLUTE NEUTROPHILS# (MANUAL) 5.2 10^3/uL (1.7-8.2); BAND NEUTROPHILS % (MANUAL) 1 % (3-5); BASOPHILS % (MANUAL) 0 % (0-2); EOSINOPHILS % (MANUAL) 1 % (0-6); LYMPHOCYTES % (MANUAL) 18 % (13-45); METAMYELOCYTES % (MANUAL) 1 % (0); MONOCYTES % (MANUAL) 3 % (3-13); SEGMENTED NEUTROPHILS % (MAN) 75 % (42-78); TOTAL CELLS COUNTED 100
[2017-09-15 08:24] LABS: ANISOCYTOSIS SLIGHT; PLATELET COMMENT ADEQUATE; POLYCHROMASIA SLIGHT
[2017-09-15] MEDS: ENOXAPARIN SODIUM INJ 30 MG/0.3 ML DISP.SYRIN SUBCUT SCH (09:04)
[2017-09-15] MEDS: POLYETHYLENE GLYCOL 3350 POWDER 17 GM/1 PACKET PO SCH (09:04)
[2017-09-15] MEDS: FLUTICASONE/SALMETEROL DISKUS 500-50 MCG/DOSE IH SCH ×2 (09:04→21:27)
[2017-09-15] MEDS: FLUTICASONE NASAL SPRAY 50 MCG/SPRY 120 SPRAY/16 GM NASL SCH (09:05)
[2017-09-15] MEDS: RANOLAZINE 500 MG TAB.SR.12H PO SCH ×2 (09:07→21:27)
[2017-09-15] MEDS: FERROUS SULFATE 325 MG TABLET PO SCH ×2 (09:07→17:31)
[2017-09-15] MEDS: ASPIRIN 81 MG TABLET, CHEWABLE PO SCH (09:08)
[2017-09-15] MEDS: POTASSIUM CHLORIDE 10 MEQ TABLET.SA PO SCH (09:08)
[2017-09-15] MEDS: DOCUSATE SODIUM 100 MG CAPSULE PO SCH ×2 (09:08→17:31)
[2017-09-15] MEDS: DULOXETINE HCL 30 MG CAPSULE.DR PO SCH (09:09)
[2017-09-15] MEDS: TAMSULOSIN HCL 0.4 MG CAP.SR.24H PO SCH (09:09)
[2017-09-15] MEDS: ROFLUMILAST 500 MCG TABLET PO SCH (09:09)
[2017-09-15] MEDS: LORATADINE 10 MG TABLET PO SCH (09:09)
[2017-09-15] MEDS: FUROSEMIDE 40 MG TABLET PO SCH (09:10)
[2017-09-15] MEDS: BUSPIRONE HCL 10 MG TABLET PO SCH ×2 (09:10→21:27)
[2017-09-15] MEDS: PREDNISONE 10 MG TABLET PO SCH (09:10)
[2017-09-15] MEDS: METOPROLOL SUCCINATE 50 MG TAB.SR.24H PO SCH (09:13)
[2017-09-15] MEDS: TIOTROPIUM BROMIDE DPI 5 CAP/KIT (18 MCG/CAP) IH SCH (10:01)
[2017-09-15] MEDS ORDERED: BISACODYL 10 MG SUPP.RECT PR ONE (13:00)
[2017-09-15] MEDS: INSULIN LISPRO 100 UNIT/ML 3 ML VIAL SUBCUT PRN ×3 (13:19→22:43)
--- NOTE | 2017-09-15 16:06 | PDOC PROGRESS REPORT ---
Subjective Progress Note for:: 09/15/17 Subjective:: No complaints voiced today Review of systems All organ systems evaluated and negative except as in subjective No significant laboratories and diagnostics have been reviewed Reason For Visit: SEPTIC SHOCK Physical Exam Vital Signs: Temp Pulse Resp BP Pulse Ox 98.5 F 95 20 102/56 L 99 09/14/17 16:19 09/15/17 02:05 09/15/17 02:05 09/15/17 04:28 09/15/17 02:05 Intake & Output 09/14/17 09/15/17 09/16/17 06:59 06:59 06:59 Intake Total 1415 1630 Output Total 250 Balance 1165 1630 Weight 94 kg 93.2 kg General appearance: PRESENT: cooperative, obese Head exam: PRESENT: atraumatic, normocephalic Eye exam: PRESENT: conjunctiva pink, EOMI, PERRLA Ear exam: PRESENT: normal external ear exam Mouth exam: PRESENT: moist Neck exam: PRESENT: full ROM. ABSENT: JVD, lymphadenopathy, tenderness - Adequate movement of air with scattered rhonchi in upper airway Cardiovascular exam: PRESENT: RRR. ABSENT: diastolic murmur, systolic murmur Vascular exam: PRESENT: normal capillary refill GI/Abdominal exam: PRESENT: normal bowel sounds, soft. ABSENT: tenderness Extremities exam: PRESENT: +2 edema. ABSENT: full ROM Musculoskeletal exam: PRESENT: deformity. ABSENT: ambulatory Neurological exam: PRESENT: alert, awake, oriented to person, oriented to place , oriented to time, oriented to situation, CN II-XII grossly intact Psychiatric exam: PRESENT: depressed Skin exam: PRESENT: intact, normal color Results Laboratory Results: 09/12/17 04:15 09/15/17 05:20 09/15/17 05:20 Sodium 143.5 Potassium 3.8 Chloride 95 L Carbon Dioxide 39 H Anion Gap 10 BUN 19 Creatinine 1.15 Est GFR ( Amer) 56 L Est GFR (Non-Af Amer) 46 L Glucose 109 Calcium 9.8 Magnesium 1.9 Total Bilirubin 0.4 AST 10 L ALT 17 Alkaline Phosphatase 75 Total Protein 5.7 L Albumin 3.3 L Impressions: Abdomen/Pelvis CT 09/09/17 13:41 IMPRESSION: 1 No evidence of acute process in the abdomen or pelvis. 2. Constipation. Colonic diverticulosis without evidence of diverticulitis. 3 Bilateral renal cysts. 4. The patient's total left hip prostheses produces artifact which limits detail in the pelvic region. The acetabular component of the prostheses protrudes into the pelvic region. The prostheses is superiorly elevated. 5. IVC filter. One of the IVC filter prongs protrudes outside of the lumen, located at about the level of the superior pole of the right kidney. No surrounding soft tissue mass or hematoma. 6. Additional findings as above. Chest X-Ray 09/09/17 16:46 IMPRESSION: Cardiomegaly without CHF. Assessment & Plan - Diagnosis (1) COPD (chronic obstructive pulmonary disease) Qualifiers: Emphysema type: unspecified Is this a current diagnosis for this admission?: Yes Plan: To continue outpatient regimen. At the present time appears to be stable from this standpoint of view (2) Acute renal failure Qualifiers: Acute renal failure type: unspecified Qualified Code(s): N17.9 - Acute kidney failure, unspecified Is this a current diagnosis for this admission?: Yes Plan: Resolved (3) UTI (urinary tract infection) Qualifiers: Urinary tract infection type: site unspecified Hematuria presence: without hematuria Qualified Code(s): N39.0 - Urinary tract infection, site not specified Is this a current diagnosis for this admission?: No Plan: Patient growing as usual ESBL organism and a second gram-negative bacilli as in her most recent hospitalization. Chart evaluated by Dr. Brown who thinks that patient is colonized. I agree with his recommendation to discontinue meropenem (4) Acute and chronic respiratory failure with hypoxia Is this a current diagnosis for this admission?: Yes Plan: Back to baseline (5) Adrenal insufficiency Is this a current diagnosis for this admission?: Yes Plan: Continue prednisone as outpatient (6) COR (chronic cor pulmonale) Is this a current diagnosis for this admission?: Yes Plan: Appears to be stable. Continue Lasix as outpatient (7) Constipation Qualifiers: Constipation type: unspecified constipation type Qualified Code(s): K59.00 - Constipation, unspecified Is this a current diagnosis for this admission?: Yes Plan: Long-standing problem with patient. Continue outpatient regimen. 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 Is this a current diagnosis for this admission?: Yes Plan: Patient made aware that will tend to recur - Time Time Spent with patient: Less than 15 minutes Medications reviewed and adjusted accordingly: Yes Anticipated discharge: SNF Within: within 24 hours - Inpatient Certification Based on my medical assessment, after consideration of the patient's comorbidities, presenting symptoms, or acuity I expect that the services needed warrant INPATIENT care.: Yes I certify that my determination is in accordance with my understanding of Medicare's requirements for reasonable and necessary INPATIENT services [42 CFR 412.3e].: Yes Medical Necessity: Need Close Monitoring Due to Risk of Patient Decompensation
[2017-09-15] MEDS: FUROSEMIDE 20 MG TABLET PO SCH (17:31)
[2017-09-15] MEDS: SENNOSIDES/DOCUSATE 8.6-50 MG 1 EACH TABLET PO SCH (21:26)
[2017-09-15] MEDS: MELATONIN 5 MG TABLET PO SCH (21:26)
[2017-09-16] MEDS: OXYCODONE HCL IR 5 MG TABLET PO SCH ×3 (00:17→11:25)
[2017-09-16] MEDS: ACETYLCYSTEINE 10% NEB 400 MG/4 ML VIAL NEB SCH ×3 (01:21→14:33)
[2017-09-16] MEDS: IPRATROPIUM/ALBUTEROL 0.5-2.5 MG/3 ML AMPUL NEB SCH ×3 (01:21→14:33)
[2017-09-16] MEDS: ACETAMINOPHEN 325 MG TABLET PO PRN (03:00)
[2017-09-16 04:17] LABS: HEMATOCRIT 27.7 % (36.0-47.0); HEMOGLOBIN 9.2 g/dL (12.0-15.5); MEAN CORPUSCULAR HEMOGLOBIN 29.4 pg (27.0-33.4); MEAN CORPUSCULAR HGB CONC 33.3 g/dL (32.0-36.0); MEAN CORPUSCULAR VOLUME 88 fl (80-97); PLATELET COUNT 211 10^3/uL (150-450); RED BLOOD COUNT 3.14 10^6/uL (3.72-5.28); RED CELL DISTRIBUTION WIDTH 15.4 % (11.5-14.0); WHITE BLOOD COUNT 7.9 10^3/uL (4.0-10.5)
[2017-09-16 04:37] LABS: ABSOLUTE LYMPHOCYTES# (MANUAL) 1.8 10^3/uL (0.5-4.7); ABSOLUTE MONOCYTES # (MANUAL) 0.7 10^3/uL (0.1-1.4); ABSOLUTE NEUTROPHILS# (MANUAL) 5.3 10^3/uL (1.7-8.2); BAND NEUTROPHILS % (MANUAL) 1 % (3-5); BASOPHILS % (MANUAL) 0 % (0-2); EOSINOPHILS % (MANUAL) 1 % (0-6); LYMPHOCYTES % (MANUAL) 23 % (13-45); METAMYELOCYTES % (MANUAL) 1 % (0); MONOCYTES % (MANUAL) 9 % (3-13); SEGMENTED NEUTROPHILS % (MAN) 65 % (42-78); TOTAL CELLS COUNTED 100
[2017-09-16 04:39] LABS: ANISOCYTOSIS SLIGHT; HELMET CELLS SLIGHT; PLATELET COMMENT ADEQUATE; PLATELET GIANT PRESENT; PLATELET LARGE PRESENT; POIKILOCYTOSIS SLIGHT; SCHISTOCYTES SLIGHT; TOXIC GRANULATION SLIGHT
[2017-09-16] MEDS: HYDRALAZINE HCL 25 MG TABLET PO SCH ×2 (05:43→14:50)
[2017-09-16] MEDS: PREGABALIN 75 MG CAPSULE PO SCH ×2 (05:43→14:49)
[2017-09-16] MEDS: LANSOPRAZOLE 15 MG TAB.RAP.DR PO SCH (05:43)
[2017-09-16] MEDS: DILTIAZEM HCL 60 MG TABLET PO SCH ×2 (05:43→14:50)
[2017-09-16] MEDS ORDERED: PROMETHAZINE HCL INJ 25 MG/1 ML VIAL IV PRN ×2 (07:30)
[2017-09-16] MEDS: FUROSEMIDE 40 MG TABLET PO SCH (08:59)
[2017-09-16] MEDS: FLUTICASONE/SALMETEROL DISKUS 500-50 MCG/DOSE IH SCH (10:46)
[2017-09-16] MEDS: ENOXAPARIN SODIUM INJ 30 MG/0.3 ML DISP.SYRIN SUBCUT SCH (10:46)
[2017-09-16] MEDS: FLUTICASONE NASAL SPRAY 50 MCG/SPRY 120 SPRAY/16 GM NASL SCH (10:46)
[2017-09-16] MEDS: TIOTROPIUM BROMIDE DPI 5 CAP/KIT (18 MCG/CAP) IH SCH (10:47)
[2017-09-16] MEDS: POLYETHYLENE GLYCOL 3350 POWDER 17 GM/1 PACKET PO SCH (10:48)
[2017-09-16] MEDS: RANOLAZINE 500 MG TAB.SR.12H PO SCH (10:50)
[2017-09-16] MEDS: ROFLUMILAST 500 MCG TABLET PO SCH (10:50)
[2017-09-16] MEDS: ASPIRIN 81 MG TABLET, CHEWABLE PO SCH (10:50)
[2017-09-16] MEDS: POTASSIUM CHLORIDE 10 MEQ TABLET.SA PO SCH (10:50)
[2017-09-16] MEDS: TAMSULOSIN HCL 0.4 MG CAP.SR.24H PO SCH (10:51)
[2017-09-16] MEDS: FERROUS SULFATE 325 MG TABLET PO SCH (10:51)
[2017-09-16] MEDS: PREDNISONE 10 MG TABLET PO SCH (10:51)
[2017-09-16] MEDS: DULOXETINE HCL 30 MG CAPSULE.DR PO SCH (10:52)
[2017-09-16] MEDS: LORATADINE 10 MG TABLET PO SCH (10:52)
[2017-09-16] MEDS: DOCUSATE SODIUM 100 MG CAPSULE PO SCH (10:53)
[2017-09-16] MEDS: BUSPIRONE HCL 10 MG TABLET PO SCH (10:53)
[2017-09-16] MEDS: METOPROLOL SUCCINATE 50 MG TAB.SR.24H PO SCH (10:54)
[2017-09-16] MEDS: FENTANYL 25 MCG/HR PATCH.TD72 TOP SCH (10:55)
--- NOTE | 2017-09-16 12:15 | PDOC TRANSFER SUMMARY ---
General - Admit/Disc Date/PCP Admission Date/Primary Care Provider: 09/09/17 15:14 Discharge Date: 09/16/17 - Discharge Diagnosis (1) Autonomic dysreflexia Is this a current diagnosis for this admission?: Yes (2) Acute renal failure Is this a current diagnosis for this admission?: Yes (3) COPD (chronic obstructive pulmonary disease) Is this a current diagnosis for this admission?: Yes (4) UTI (urinary tract infection) Is this a current diagnosis for this admission?: No (5) Acute and chronic respiratory failure with hypoxia Is this a current diagnosis for this admission?: Yes (6) Adrenal insufficiency Is this a current diagnosis for this admission?: Yes (7) COR (chronic cor pulmonale) Is this a current diagnosis for this admission?: Yes (8) Constipation Is this a current diagnosis for this admission?: Yes (9) Diabetes mellitus Is this a current diagnosis for this admission?: Yes (10) Functional quadriplegia Is this a current diagnosis for this admission?: Yes (11) Hypokalemia Is this a current diagnosis for this admission?: Yes - Additional Information Resuscitation Status: DO NOT RESUSCITATE/DO NOT INTUBATE Discharge Diet: Diabetic Discharge Activity: Bedrest Home Medications: Acetaminophen [Tylenol 325 mg Tablet] 650 mg PO Q4HP PRN 09/09/17 Acetylcysteine [Mucomist 10% Neb 400 mg/4 mL Vial] 400 mg NEB RTQ6 09/09/17 Albuterol Sulfate [Proair HFA Inhalation Aerosol 8.5 gm MDI] 2 puff IH Q6HP PRN 09/09/17 Ascorbic Acid [Vitamin C 500 mg Tablet] 500 mg PO BID 09/09/17 Aspirin [Aspirin 81 mg Chewable Tablet] 81 mg PO DAILY 09/09/17 Baclofen [Baclofen 10 mg Tablet] 10 mg PO Q8HP PRN 09/09/17 Benzocaine/Menthol [Chloraseptic Sore Throat Lozenge] 1 ru PO Q1HP PRN Benzonatate [Tessalon Perles 100 mg Capsule] 200 mg PO Q8HP PRN 09/09/17 Biotin [Biotin 1 mg Tablet] 1 mg PO DAILYP PRN 09/09/17 Budesonide [Pulmicort 180 mcg Flexhaler] 2 puff IH Q12 09/09/17 Buspirone HCl [Buspar 5 mg Tablet] 5 mg PO Q12 09/09/17 Butalb/Acetaminophen/Caffeine [Xgxehf-Topwxqie-Tteb 50-325-40] 2 tab PO Q6HP PRN 09/09/17 Carboxymethylcellulose Sodium [Refresh Plus 0.5% Oph Soln 0.4 ml Droperette] 1 drop OU QIDP PRN 09/09/17 Docusate Sodium [Colace 100 mg Capsule] 100 mg PO BID 09/09/17 Duloxetine HCl [Cymbalta] 90 mg PO DAILY 09/09/17 Ergocalciferol (Vitamin D2) [Drisdol 50,000 unit (1.25MG) Capsule] 50,000 unit PO MO@1000 09/09/17 Fentanyl [Duragesic 25 mcg/hr Transdermal Patch] 1 patch TOP Q3D 09/09/17 Ferrous Sulfate [Feosol 325 mg Tablet] 325 mg PO BID 09/09/17 Fluticasone Propionate [Flonase Nasal [place] 50 Mcg/[place] 16 gm] 2 sprays NASL DAILY 09/09/17 Fluticasone/Salmeterol [Advair 500-50 Diskus 14 Dose/Diskus] 1 puff IH Q12 09/09 Furosemide [Lasix 20 mg Tablet] 20 mg PO QPM 09/09/17 Furosemide [Lasix 40 mg Tablet] 40 mg PO QAM 09/09/17 Hydralazine HCl [Apresoline 25 mg Tablet] 25 mg PO Q8 09/09/17 Insulin Detemir [Levemir Flextouch] 30 units SQ DAILY 09/09/17 Insulin Lispro [Humalog Insulin (Lispro) 100 unit/mL] 0 units SQ .SLIDING SCALE 09/09/17 Ipratropium/Albuterol Sulfate [Iprat-Albut 0.5-3(2.5) mg/3 ml] 3 ml NEB [id number] 09/09/17 Lactulose [Enulose 10 gm/15 mL Oral Solution] 15 ml PO BIDP PRN 09/09/17 Levalbuterol HCl [Xopenex Neb 0.63 mg/3 ml Ampul] 0.63 mg NEB RTQ8 09/09/17 Lidocaine [Lidoderm 5% (700 mg) Transdermal Patch] 1 patch TOP DAILY 09/09/17 Linaclotide [Linzess 145 Mcg Capsule] 145 mcg PO DAILY 09/09/17 Loratadine [Claritin 10 mg Tablet] 10 mg PO DAILY 09/09/17 Magnesium Hydroxide [Milk of Magnesia 30 ml Udcup] 30 ml PO DAILYP PRN 09/09/17 Melatonin 10 mg PO QHS 09/09/17 Menthol [Biofreeze] 1 applic TOP DAILYP PRN 09/09/17 Metoprolol Succinate [Toprol Xl 50 mg Tab.sr] 50 mg PO DAILY 09/09/17 Nitroglycerin [Nitrostat] 0.4 mg SL Q5MP PRN 09/09/17 Omeprazole 20 mg PO Q6AM 09/09/17 Oxycodone HCl [Oxy-Ir 5 mg Tablet] 5 mg PO Q6 09/09/17 Polyethylene Glycol 3350 [Miralax Powder 17 gm/Packet] 17 gm PO DAILY 09/09/17 Potassium Chloride [Klor-Con 10 Meq Tablet.sa] 10 meq PO DAILY 09/09/17 Prednisone [Deltasone 10 mg Tablet] 10 mg PO DAILY 09/09/17 Pregabalin [Lyrica 75 mg Capsule] 75 mg PO Q8 09/09/17 Promethazine HCl [Phenergan 25 mg Tablet] 25 mg PO Q6HP PRN 09/09/17 Ranitidine HCl [Zantac 150 mg Tablet] 150 mg PO BID 09/09/17 Ranolazine [Ranexa 500 mg Tab.sr] 500 mg PO Q12 09/09/17 Roflumilast [Daliresp 500 mcg Tablet] 500 mcg PO DAILY 09/09/17 Sennosides/Docusate 8.6-50 mg [Senna Plus Tablet] 1 tab PO QHS 09/09/17 Tamsulosin HCl [Flomax 0.4 mg Cap.sr] 0.4 mg PO DAILY 09/09/17 Tiotropium [place] [Spiriva Handihaler 5 Cap/Kit (18 Mcg/Cap)] 1 puff IH DAILY 09/09/17 History of Present Illness Admission Date/PCP: 09/09/17 15:14 History of Present Illness: PORSHA WALDRON is a 72 year old female with a past medical history of COPD, ROSETTA, CHF, hypertension, hyperlipidemia, chronic kidney disease stage III, paroxysmal atrial fibrillation,PAT, DC, DVT, hypothyroidism, GERD, depression, functional paraplegia, and morbid obesity presented to the emergency department today with a complaint of chest pain and abdominal pain. EMS was called. The patient presented to the emergency department she had evidence of a septic shock with systolic blood pressures less than 70. She did not manifest a fever but she was quite ill with an elevated lactic acid level and severe leukocytosis. Urinalysis is significant for acute infection. Patient was also in acute renal failure. The patient is DNR and DNI. Patient had presented under similar circumstances. Patient was admitted on the hospitalist service. Hospital Course Hospital Course: [place] usually the case patient was deemed to be going through septic shock. Antibiotic treatment was started. Patient does carry a history of urinary tract infection with E. coli ESBL. She recuperated within the first 48 hours of admission. Urine culture obtained grew ESBL E. coli. Patient's chart was evaluated by Dr. Brown who is ID senior solutions workflow consultant for the purpose of antibiotics stewarship. It was his opinion that this patient was colonized. We stopped meropenem since in agreemtn with his opinion. Since well familiarized with this patient reevaluated her current and previous admission and my opinion is that patient presentation relates to autonomic dysreflexia and adrenal insufficiency. My impression is that patient may present again under similar circumstances and may do better by addressing hypotension. Patient was restarted on her usual medication regimen. She experienced a short course of paroxysmal atrial tachycardia which improved once she was placed back on Cardizem. Patient has remained stable and with no other similar bouts while being off antibiotics. Polypharmacy is always a major concern on this patient. Since patient had achieved maximum benefit of hospitalization stay prompted to discharge under stable condition. Physical Exam Vital Signs: Temp Pulse Resp BP Pulse Ox 98.2 F 66 18 130/85 H 95 09/15/17 16:37 09/16/17 09:04 09/16/17 09:04 09/16/17 04:34 09/16/17 09:04 Intake & Output 09/15/17 09/16/17 09/17/17 06:59 06:59 06:59 Intake Total 1630 1305 Balance 1630 1305 Weight 93.2 kg 94.2 kg General appearance: PRESENT: cooperative, obese Head exam: PRESENT: atraumatic, normocephalic Eye exam: PRESENT: EOMI, PERRLA Ear exam: PRESENT: normal external ear exam Mouth exam: PRESENT: moist Neck exam: PRESENT: full ROM. ABSENT: JVD, lymphadenopathy, tenderness, thyromegaly Respiratory exam: ABSENT: tachypnea - Adequate movement of air with upper airway scattered rhonchi, unlabored Cardiovascular exam: PRESENT: RRR. ABSENT: diastolic murmur, systolic murmur Vascular exam: PRESENT: normal capillary refill GI/Abdominal exam: PRESENT: normal bowel sounds, soft. ABSENT: tenderness Extremities exam: PRESENT: +2 edema. ABSENT: tenderness Musculoskeletal exam: ABSENT: ambulatory Neurological exam: PRESENT: alert, awake, oriented to person, oriented to place , oriented to time, oriented to situation, CN II-XII grossly intact Psychiatric exam: PRESENT: appropriate affect, normal mood Skin exam: PRESENT: intact, normal color Results Laboratory Results: 09/16/17 04:00 09/15/17 05:20 09/16/17 04:00 WBC 7.9 RBC 3.14 L Hgb 9.2 L Hct 27.7 L MCV 88 MCH 29.4 MCHC 33.3 RDW 15.4 H Plt Count 211 Seg Neutrophils % Not Reportable Lymphocytes % Not Reportable Monocytes % Not Reportable Eosinophils % Not Reportable Basophils % Not Reportable Absolute Neutrophils Not Reportable Absolute Lymphocytes Not Reportable Absolute Monocytes Not Reportable Absolute Eosinophils Not Reportable Absolute Basophils Not Reportable Impressions: Abdomen/Pelvis CT 09/09/17 13:41 IMPRESSION: 1 No evidence of acute process in the abdomen or pelvis. 2. Constipation. Colonic diverticulosis without evidence of diverticulitis. 3 Bilateral renal cysts. 4. The patient's total left hip prostheses produces artifact which limits detail in the pelvic region. The acetabular component of the prostheses protrudes into the pelvic region. The prostheses is superiorly elevated. 5. IVC filter. One of the IVC filter prongs protrudes outside of the lumen, located at about the level of the superior pole of the right kidney. No surrounding soft tissue mass or hematoma. 6. Additional findings as above. Chest X-Ray 09/09/17 16:46 IMPRESSION: Cardiomegaly without CHF. Transfer Plan - Disposition Transfer Plan: To [facility] facility - Time Spent with Patient Time spent with patient: Less than 30 Minutes Qualifiers - * PATEINT BEING DISCHARGED WITH ANY OF THE FOLLOWING DIAGNOSIS?: No
[2017-09-16] MEDS: INSULIN LISPRO 100 UNIT/ML 3 ML VIAL SUBCUT PRN (13:03)
[2017-09-16 14:42] VITALS: BP 131/58
== END 2017-09-16 16:02 | DRG 871 ==
LOC: ER 12:16 → EH 15:14 → 5 09-10 14:22 → 3S 09-10 23:09
PROVIDERS: ADMIT Emergency Medicine; ATTEND Emergency Medicine
PROC: 02HV33Z Insertion of Infusion Device into Superior Vena Cava, Percutaneous Approach (ICD-10-PCS; principal; 2017-09-09)
DX: A41.9 Sepsis, unspecified organism (principal); R65.21 Severe sepsis with septic shock; J96.21 Acute and chronic respiratory failure with hypoxia; N17.9 Acute kidney failure, unspecified; Z66 Do not resuscitate; I50.33 Acute on chronic diastolic (congestive) heart failure; E11.22 Type 2 diabetes mellitus with diabetic chronic kidney disease; I48.0 Paroxysmal atrial fibrillation; E27.40 Unspecified adrenocortical insufficiency; I27.81 Cor pulmonale (chronic); G90.4 Autonomic dysreflexia; I13.0 Hypertensive heart and chronic kidney disease with heart failure and stage 1 through stage 4 chronic kidney disease, or unspecified chronic kidney disease; N39.0 Urinary tract infection, site not specified; E87.6 Hypokalemia; J44.9 Chronic obstructive pulmonary disease, unspecified; N18.3 Chronic kidney disease, stage 3 (moderate); E78.5 Hyperlipidemia, unspecified; E03.9 Hypothyroidism, unspecified; K21.9 Gastro-esophageal reflux disease without esophagitis; F44.4 Conversion disorder with motor symptom or deficit; K59.00 Constipation, unspecified; B96.20 Unspecified Escherichia coli [E. coli] as the cause of diseases classified elsewhere; B96.1 Klebsiella pneumoniae [K. pneumoniae] as the cause of diseases classified elsewhere; G47.33 Obstructive sleep apnea (adult) (pediatric); E66.01 Morbid (severe) obesity due to excess calories; Z16.12 Extended spectrum beta lactamase (ESBL) resistance; Z68.38 Body mass index [BMI] 38.0-38.9, adult; Z79.82 Long term (current) use of aspirin; Z79.4 Long term (current) use of insulin; Z79.51 Long term (current) use of inhaled steroids; Z79.52 Long term (current) use of systemic steroids; Z79.899 Other long term (current) drug therapy
CPT/HCPCS: 36415; 36600; 71045; 74176; 80053; 81001; 82803; 82962; 83605; 83735; 85025; 85027; 85610; 85730; 87040; 87086; 87088; 87186; 93005; 93010; 94640; 94660; 96361; 96365; 96375; 99291; C1751; J0692; J0743; J1650; J1815; J2185; J2543; J3370; J3490; J7030; J7060; J7512; J7620; S0028

== ENCOUNTER 2017-10-28 15:20 | Emergency (ER) | payer MEDICARE, MEDICAID ==
[2017-10-28 15:47] LABS: VENOUS BLOOD BASE EXCESS 5.6 mmol/L; VENOUS BLOOD PCO2 49.1 mmHg (35-63); VENOUS BLOOD PH 7.42 (7.30-7.42)
[2017-10-28 15:48] LABS: ABSOLUTE LYMPHOCYTES (AUTO) 0.7 10^3/uL (0.5-4.7); ABSOLUTE MONOCYTES (AUTO) 0.4 10^3/uL (0.1-1.4); ABSOLUTE NEUT (AUTO) 8.1 10^3/uL (1.7-8.2); BASOPHILS % (AUTO) 0.2 % (0-2); EOSINOPHILS % (AUTO) 0.2 % (0-6); HEMATOCRIT 30.5 % (36.0-47.0); LYMPHOCYTES % (AUTO) 7.3 % (13-45); MEAN CORPUSCULAR HEMOGLOBIN 28.4 pg (27.0-33.4); MEAN CORPUSCULAR HGB CONC 32.8 g/dL (32.0-36.0); MEAN CORPUSCULAR VOLUME 87 fl (80-97); MONOCYTES % (AUTO) 4.7 % (3-13); PLATELET COUNT 181 10^3/uL (150-450); RED BLOOD COUNT 3.52 10^6/uL (3.72-5.28); SEGMENTED NEUTROPHILS % (AUTO) 87.6 % (42-78); TOTAL CELLS COUNTED % (AUTO) 100 %; WHITE BLOOD COUNT 9.3 10^3/uL (4.0-10.5)
[2017-10-28 15:57] LABS: INTERNATIONAL RATION (INR) 1.01; PROTHROMBIN TIME 13.8 SEC (11.4-15.4)
[2017-10-28 16:04] LABS: ALANINE AMINOTRANSFERASE 29 U/L (9-52); ALBUMIN 3.7 g/dL (3.5-5.0); ALKALINE PHOSPHATASE 82 U/L (38-126); ANION GAP 9 (5-19); ASPARTATE AMINO TRANSFERASE 19 U/L (14-36); BILIRUBIN,DIRECT 0.3 mg/dL (0.0-0.4); BILIRUBIN,TOTAL 0.3 mg/dL (0.2-1.3); BLOOD UREA NITROGEN 17 mg/dL (7-20); CALCIUM 9.7 mg/dL (8.4-10.2); CARBON DIOXIDE 33 mmol/L (22-30); CHLORIDE 103 mmol/L (98-107); GLUCOSE 180 mg/dL (75-110); POTASSIUM 4.8 mmol/L (3.6-5.0); SODIUM 144.7 mmol/L (137-145); TOTAL PROTEIN 6.7 g/dL (6.3-8.2)
--- NOTE | 2017-10-28 16:13 | ER Document Report ---
ED General - General Chief Complaint: Shortness Of Breath Stated Complaint: SHORTNESS OF BREATH Time Seen by Provider: 10/28/17 15:26 Mode of Arrival: Medic Information source: Patient, [facility] Records Notes: 72-year-old female history of COPD asthma presents with complaints of intermittent shortness of breath over the past few days. Patient denies any fevers or chills denies any productivity to cough. Patient notes that overall she feels well and that her provider made rounds this morning and change medications around and she believes increased her steroids to baseline 15, patient notes she does not want her medications changed as a result since she does not want it to mix up anything TRAVEL OUTSIDE OF THE [place] IN LAST 30 DAYS: No - HPI Onset: Last week Onset/Duration: Intermittent Quality of pain: No pain Severity: Mild Pain Level: Denies Associated symptoms: Shortness of breath Exacerbated by: Denies Relieved by: Denies Similar symptoms previously: Yes Recently seen / treated by doctor: Yes - Related Data Allergies/Adverse Reactions: Sulfa (Sulfonamide Antibiotics) Allergy (Intermediate, Verified 08/03/17 22:20) adhesive tape Allergy (Verified 08/03/17 22:20) atorvastatin calcium [From Lipitor] Allergy (Verified 08/03/17 22:20) celecoxib [From Celebrex] Allergy (Verified 08/03/17 22:20) Past Medical History - Social History Smoking Status: Never Smoker Cigarette use (# per day): No Chew tobacco use (# tins/day): No Smoking Education Provided: No Family History: Reviewed & Not Pertinent, Arthritis, CAD, CVA, DM, Hyperlipidemia, Hypertension - Past Medical History Cardiac Medical History: Reports: Hx Atrial Fibrillation, Hx Congestive Heart Failure - Diastolic dysfunction, Hx Heart Attack, Hx Hypertension - essential, Hx Pulmonary Embolism, Hx Heart Murmur Denies: Hx Coronary Artery Disease, Hx DVT, Hx Hypercholesterolemia, Hx Peripheral Vascular Disease Pulmonary Medical History: Reports: Hx Asthma, Hx Bronchitis, Hx COPD, Hx Pneumonia - Recurrent MRSA pneumonia., Hx Sleep Apnea - Uses C Pap Denies: Hx Tuberculosis Neurological Medical History: Denies: Hx Seizures Endocrine Medical History: Reports: Hx Diabetes Mellitus Type 2. Denies: Hx Diabetes Mellitus Type 1, Hx Hyperthyroidism, Hx Hypothyroidism Renal/ Medical History: Reports: Hx Renal Insufficiency. Denies: Hx Peritoneal Dialysis GI Medical History: Reports: Hx Gastroesophageal Reflux Disease, Hx Hiatal Hernia. Denies: Hx Cirrhosis, Hx Hepatitis Musculoskeltal Medical History: Reports Hx Arthritis, Reports Hx Fibromyalgia, Reports Hx Gout, Reports Hx Muscle Weakness Skin Medical History: Denies Hx Eczema, Denies Hx Psoriasis Psychiatric Medical History: Reports: Hx Anxiety, Hx Depression Infectious Medical History: Reports: Hx MRSA. Denies: Hx Hepatitis Past Surgical History: Reports: Hx Appendectomy, Hx Cholecystectomy, Hx Hysterectomy, Hx Orthopedic Surgery - Multiple left hip procedures, 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 - Immunizations Hx Diphtheria, Pertussis, Tetanus Vaccination: Yes Hx Pneumococcal Vaccination: 05/20/13 Review of Systems - Review of Systems Notes: REVIEW OF SYSTEMS: CONSTITUTIONAL : Denies fever, chills, or sweats. Denies recent illness. EENT: Denies eye, ear, throat, or mouth pain or symptoms. Denies nasal or sinus congestion or discharge. Denies throat, tongue, or mouth swelling or difficulty swallowing. CARDIOVASCULAR: Denies chest pain. Denies palpitations or racing or irregular heart beat. Denies ankle edema. RESPIRATORY: Admits to cough shortness of breath GASTROINTESTINAL: Denies abdominal pain or distention. Denies nausea, vomiting , or diarrhea. Denies blood in vomitus, stools, or per rectum. Denies black, tarry stools. Denies constipation. GENITOURINARY: Denies difficulty urinating, painful urination, burning, frequency, blood in urine, or discharge. FEMALE GENITOURINARY: Denies vaginal bleeding, heavy or abnormal periods, irregular periods. Denies vaginal discharge or odor. MUSCULOSKELETAL: Denies back or neck pain or stiffness. Denies joint pain or swelling. SKIN: Denies rash, lesions or sores. HEMATOLOGIC : Denies easy bruising or bleeding. LYMPHATIC: Denies swollen, enlarged glands. NEUROLOGICAL: Denies confusion or altered mental status. Denies passing out or loss of consciousness. Denies dizziness or lightheadedness. Denies headache. Denies weakness or paralysis or loss of use of either side. Denies problems with gait or speech. Denies sensory loss, numbness, or tingling. Denies seizures. PSYCHIATRIC: Denies anxiety or stress. Denies depression, suicidal ideation, or homicidal ideation. ALL OTHER SYSTEMS REVIEWED AND NEGATIVE. PHYSICAL EXAMINATION: GENERAL: Chronically ill-appearing female no acute distress HEAD: Atraumatic, normocephalic. EYES: Pupils equal round and reactive to light, extraocular movements intact, conjunctiva are normal. ENT: Nares patent, oropharynx clear without exudates. Moist mucous membranes. NECK: Normal range of motion, supple without lymphadenopathy LUNGS: Breath sounds clear to auscultation bilaterally and equal. No wheezes rales or rhonchi. HEART: Regular rate and rhythm without murmurs ABDOMEN: Soft, nontender, nondistended abdomen. No guarding, no rebound. No masses appreciated. Female : deferred Musculoskeletal: Normal range of motion, no pitting or edema. No cyanosis. NEUROLOGICAL: Cranial nerves grossly intact. Normal speech, normal gait. Normal sensory, motor exams PSYCH: Normal mood, normal affect. SKIN: Warm, Dry, normal turgor, no rashes or lesions noted. Dictation was performed using [employer] recognition software Physical Exam - Vital signs Vitals: Resp Pulse Ox 19 97 10/28/17 15:41 10/28/17 15:41 Course - Re-evaluation Re-evalutation: 10/28/17 19:55 This is a chronically ill-appearing female history of COPD who presents with probable COPD exacerbation, on evaluation patient is satting well on her baseline 2 L nasal cannula, 99-100%, she is in absolutely no distress, chest x- ray lab work noted no significant abnormality, her vital signs are otherwise well-appearing as well, therefore I have very low suspicion that there is any life-threatening issues associated with this patient today. I did want to increase her steroid dosage however she wishes for her own physician at primary to do so Therefore I believe patient stable for discharge with understand that she returns immediately if there are any other concerns After performing a Medical Screening Examination, I estimate there is LOW risk for ACUTE CORONARY SYNDROME, PULMONARY EMBOLI, RESPIRATORY FAILURE, SEPSIS OR MENINGITIS, thus I consider the discharge disposition reasonable. I have reevaluated this patient multiple times and no significant life threatening changes are noted. The patient and I have discussed the diagnosis and risks, and we agree with discharging home with close follow-up. We also discussed returning to the Emergency Department immediately if new or worsening symptoms occur. We have discussed the symptoms which are most concerning (e.g., changing or worsening pain, trouble swallowing or breathing, neck stiffness, fever) that necessitate immediate return. - Vital Signs Vital signs: Temp Pulse Resp BP Pulse Ox 98.0 F 18 141/80 H 98 10/28/17 18:35 10/28/17 18:35 10/28/17 18:35 10/28/17 18:35 - Laboratory Result Diagrams: 10/28/17 15:35 10/28/17 15:35 Laboratory results interpreted by me: 10/28/17 10/28/17 10/28/17 15:35 15:35 17:35 RBC 3.52 L Hgb 10.0 L Hct 30.5 L RDW 15.0 H Seg Neutrophils % 87.6 H Lymphocytes % 7.3 L Carbon Dioxide 33 H Est GFR ( Amer) 53 L Est GFR (Non-Af Amer) 44 L Glucose 180 H Ur Leukocyte Esterase LARGE H Urine Ascorbic Acid 40 H - Diagnostic Test Radiology reviewed: Image reviewed - Chest x-ray notes no acute abnormality, Reports reviewed Discharge - Discharge Clinical Impression: CKD (chronic kidney disease), stage III, COPD with acute bronchitis Condition: Stable Disposition: HOME, SELF-CARE Instructions: Dyspnea, Nonspecific ([facility]) Referrals: GILBERT CASTANEDA DO [Primary Care Provider] - Follow up tomorrow
--- NOTE | 2017-10-28 16:28 | RADIOLOGY REPORT (SQ) ---
EXAM DESCRIPTION: CHEST SINGLE VIEW COMPLETED DATE/TIME: 10/28/2017 4:17 pm REASON FOR STUDY: bed 8 sepsis protocol COMPARISON: 09/09/2017 EXAM PARAMETERS: NUMBER OF VIEWS: One view. TECHNIQUE: Single frontal radiographic view of the chest acquired. RADIATION DOSE: NA LIMITATIONS: None. FINDINGS: LUNGS AND PLEURA: No opacities, masses or pneumothorax. No pleural effusion. MEDIASTINUM AND HILAR STRUCTURES: No masses. Contour normal. HEART AND VASCULAR STRUCTURES: Cardiomegaly. No evidence of failure. BONES: No acute findings. HARDWARE: None in the chest. OTHER: No other significant finding. IMPRESSION: Cardiomegaly without CHF. TECHNICAL DOCUMENTATION: JOB ID: [id number] [employer]- All Rights Reserved Reading location - IP/workstation name: [email or web address]
[2017-10-28] MEDS ORDERED: OXYCODONE HCL IR 5 MG TABLET PO ONE (17:24)
[2017-10-28 17:58] LABS: APPEARANCE,URINE CLEAR; BILIRUBIN,URINE NEGATIVE (NEGATIVE); COLOR,URINE YELLOW; GLUCOSE, URINE NEGATIVE (NEGATIVE); KETONES,URINE NEGATIVE (NEGATIVE); LEUKOCYTE ESTERASE,URINE LARGE (NEGATIVE); NITRITE,URINE NEGATIVE (NEGATIVE); PROTEIN,URINE NEGATIVE (NEGATIVE); URINE SPECIFIC GRAVITY 1.009; UROBILINOGEN,URINE NEGATIVE mg/dL (<2.0)
[2017-10-28 18:47] VITALS: BP 141/80
--- NOTE | 2017-10-28 22:26 | EKG REPORT ---
SEVERITY:- ABNORMAL ECG - SINUS RHYTHM INCOMPLETE LEFT BUNDLE BRANCH BLOCK LEFT VENTRICULAR HYPERTROPHY LAD : Confirmed by: Jung Olvera 28-Oct-2017 22:26:03
== END 2017-10-28 18:50 | disposition home or self-care (01) ==
LOC: ER 15:20
DX: J44.0 Chronic obstructive pulmonary disease with (acute) lower respiratory infection (principal); J20.9 Acute bronchitis, unspecified; E11.22 Type 2 diabetes mellitus with diabetic chronic kidney disease; I13.0 Hypertensive heart and chronic kidney disease with heart failure and stage 1 through stage 4 chronic kidney disease, or unspecified chronic kidney disease; N18.3 Chronic kidney disease, stage 3 (moderate); Z88.2 Allergy status to sulfonamides; Z86.14 Personal history of Methicillin resistant Staphylococcus aureus infection; Z90.49 Acquired absence of other specified parts of digestive tract
CPT/HCPCS: 93005; 99285; 51701; 36415; 87040; 87086; 85025; 85610; 87088; 80053; 81001; 87186; 82803; 83605; 71045; 93010; A9270

== ENCOUNTER → 2017-12-19 | Outpatient (CLI) | payer MEDICARE, MEDICAID ==
--- NOTE | 2017-12-19 14:14 | RADIOLOGY REPORT (SQ) ---
EXAM DESCRIPTION: CT ABD/PELVIS NO ORAL OR IV COMPLETED DATE/TIME: 12/19/2017 1:19 pm REASON FOR STUDY: ABDOMINAL PAIN, OTHER SPECIFIED SITE N28.9 DISORDER OF KIDNEY AND URETER, UNSPECI FIED COMPARISON: CT abdomen and pelvis 09/09/2017, 12/18/2012 TECHNIQUE: CT scan of the abdomen and pelvis performed without intravenous or oral contrast. Images reviewed with lung, soft tissue, and bone windows. Reconstructed coronal and sagittal MPR images revi ewed. All images stored on PACS. All CT scanners at this facility use dose modulation, iterative reconstruction, and/or weight based d osing when appropriate to reduce radiation dose to as low as reasonably achievable (ALARA). [facility]: Dose Right [facility]: CareDose [facility]: Dose Right [facility]: Teradose 4D [facility]: Smart LiftDNA RADIATION DOSE: CT Rad equipment meets quality standard of care and radiation dose reduction techniq ues were employed. CTDIvol: 20.7 mGy. DLP: 1033 mGy-cm.mGy. LIMITATIONS: None. FINDINGS: LOWER CHEST: No significant findings. No nodules or infiltrates. NON-CONTRASTED LIVER, SPLEEN, ADRENALS: Evaluation limited by lack of IV contrast. No identified sign ificant masses. PANCREAS: Profound fatty atrophy of the pancreas GALLBLADDER: No identified stones by CT criteria. No inflammatory changes to suggest cholecystitis. RIGHT KIDNEY AND URETER: 1.6 cm and 1 cm right lower pole renal cysts. No significant calcification s. No hydronephrosis or hydroureter. LEFT KIDNEY AND URETER: 4.8 cm left lower pole renal cyst. 1 cm left upper pole renal cyst. No sig nificant calcifications. No hydronephrosis or hydroureter. AORTA AND RETROPERITONEUM: No abdominal aortic aneurysm. IVC filter in place BOWEL AND PERITONEAL CAVITY: No free intraperitoneal air or fluid. No CT signs of bowel obstruction. Scattered colonic diverticuli. Streak artifact from a left hip replacement obscures fine detail ov er pelvic bowel loops. APPENDIX: Not identified PELVIS, BLADDER, AND ABDOMINAL WALL:Barton catheter drains the bladder. Post hysterectomy. No gross abdominal wall masses or hernias. BONES: There is a left-sided hip replacement. Protrusio of the acetabular component into the, on axi al image 66 and coronal image 82 similar compared to previous exams. OTHER: No other significant finding. IMPRESSION: No acute findings. COMMENT: Quality ID # [id number]: Final reports with documentation of one or more dose reduction techniques (e.g., Automated exposure control, adjustment of the mA and/or kV according to patient size, use of iterative reconstruction technique) TECHNICAL DOCUMENTATION: JOB ID: [id number] [employer]- All Rights Reserved Reading location - IP/workstation name: [email or web address]
== END ==
LOC: RAD 12:55
PROVIDERS: ATTEND Family Medicine
DX: N28.1 Cyst of kidney, acquired (principal); R10.9 Unspecified abdominal pain
CPT/HCPCS: 74176

== ENCOUNTER 2017-12-29 12:57 | Emergency (ER) | payer MEDICARE, MEDICAID ==
[2017-12-29 13:30] LABS: ALANINE AMINOTRANSFERASE 16 U/L (9-52); ALBUMIN 3.7 g/dL (3.5-5.0); ALKALINE PHOSPHATASE 78 U/L (38-126); ANION GAP 11 (5-19); ASPARTATE AMINO TRANSFERASE 28 U/L (14-36); BILIRUBIN,DIRECT 0.4 mg/dL (0.0-0.4); BILIRUBIN,TOTAL 0.4 mg/dL (0.2-1.3); BLOOD UREA NITROGEN 20 mg/dL (7-20); CALCIUM 9.5 mg/dL (8.4-10.2); CARBON DIOXIDE 33 mmol/L (22-30); CHLORIDE 103 mmol/L (98-107); GLUCOSE 136 mg/dL (75-110); LIPASE 17.7 U/L (23-300); POTASSIUM 3.4 mmol/L (3.6-5.0); SODIUM 146.6 mmol/L (137-145); TOTAL PROTEIN 7.1 g/dL (6.3-8.2)
--- NOTE | 2017-12-29 13:34 | ER Document Report ---
ED GI/ - General Chief Complaint: Flank Pain Stated Complaint: FLANK PAIN Time Seen by Provider: 12/29/17 13:17 Mode of Arrival: Medic Information source: Patient, Transfer Record Notes: Patient presents complaining of right flank pain for the past 4 days. Patient complains of diarrhea. Patient denies any fever, nausea or vomiting. Patient has a chronic indwelling catheter but states that it was changed a few days ago. Patient also reports frequent UTIs but states that she has chronic E. coli. Patient states she has also seen infectious disease doctor and states that she should not take antibiotics but only under certain circumstances. Patient reports starting Cipro for 7 day course on December 26 to treat a UTI. TRAVEL OUTSIDE OF THE [place] IN LAST 30 DAYS: No - HPI Patient complains to provider of: Diarrhea, Flank pain. No: Abdominal pain, Vomiting Onset: Other - 4 days Timing/Duration: Persistent Quality of pain: Sharp Pain Level: 4 Location: Right flank Vaginal bleeding (Compared to normal period): None Associated symptoms: Diarrhea, Fever. denies: Chest pain, Nausea, Urinary hesitancy, Urinary frequency, Urinary retention, Urinary urgency, Vomiting Exacerbated by: Denies Relieved by: Denies Similar symptoms previously: No Recently seen / treated by doctor: No - Related Data Allergies/Adverse Reactions: Sulfa (Sulfonamide Antibiotics) Allergy (Intermediate, Verified 08/03/17 22:20) adhesive tape Allergy (Verified 08/03/17 22:20) atorvastatin calcium [From Lipitor] Allergy (Verified 08/03/17 22:20) celecoxib [From Celebrex] Allergy (Verified 08/03/17 22:20) Past Medical History - General Information source: Patient - Social History Smoking Status: Never Smoker Chew tobacco use (# tins/day): No Frequency of alcohol use: None Drug Abuse: None Lives with: Shelter Family History: Reviewed & Not Pertinent, Arthritis, CAD, CVA, DM, Hyperlipidemia, Hypertension Patient has suicidal ideation: No Patient has homicidal ideation: No - Past Medical History Cardiac Medical History: Reports: Hx Atrial Fibrillation, Hx Congestive Heart Failure - Diastolic dysfunction, Hx Heart Attack, Hx Hypertension - essential, Hx Pulmonary Embolism, Hx Heart Murmur Denies: Hx Coronary Artery Disease, Hx DVT, Hx Hypercholesterolemia, Hx Peripheral Vascular Disease Pulmonary Medical History: Reports: Hx Asthma, Hx Bronchitis, Hx COPD, Hx Pneumonia - Recurrent MRSA pneumonia., Hx Sleep Apnea - Uses C Pap Denies: Hx Tuberculosis Neurological Medical History: Denies: Hx Seizures Endocrine Medical History: Reports: Hx Diabetes Mellitus Type 2. Denies: Hx Diabetes Mellitus Type 1, Hx Hyperthyroidism, Hx Hypothyroidism Renal/ Medical History: Reports: Hx Renal Insufficiency. Denies: Hx Peritoneal Dialysis GI Medical History: Reports: Hx Gastroesophageal Reflux Disease, Hx Hiatal Hernia. Denies: Hx Cirrhosis, Hx Hepatitis Musculoskeltal Medical History: Reports Hx Arthritis, Reports Hx Fibromyalgia, Reports Hx Gout, Reports Hx Muscle Weakness Skin Medical History: Denies Hx Eczema, Denies Hx Psoriasis Psychiatric Medical History: Reports: Hx Anxiety, Hx Depression Infectious Medical History: Reports: Hx MRSA. Denies: Hx Hepatitis Past Surgical History: Reports: Hx Appendectomy, Hx Cholecystectomy, Hx Hysterectomy, Hx Orthopedic Surgery - Multiple left hip procedures, 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 - Immunizations Hx Diphtheria, Pertussis, Tetanus Vaccination: Yes Hx Pneumococcal Vaccination: 05/20/13 Review of Systems - Review of Systems Constitutional: No symptoms reported. denies: Fever, Recent illness EENT: No symptoms reported Cardiovascular: No symptoms reported. denies: Chest pain Respiratory: No symptoms reported. denies: Cough, Short of breath Gastrointestinal: Abdominal pain, Diarrhea. denies: Nausea, Vomiting Genitourinary: Flank pain, Other - Chronic indwelling Barton. denies: Dysuria Female Genitourinary: No symptoms reported Musculoskeletal: Back pain Skin: No symptoms reported Hematologic/Lymphatic: No symptoms reported Neurological/Psychological: No symptoms reported Physical Exam - Vital signs Vitals: Temp Pulse BP Pulse Ox 98.6 F 70 131/79 H 94 12/29/17 12:58 12/29/17 12:58 12/29/17 12:58 12/29/17 12:58 - General General appearance: Appears well, Alert In distress: None - HEENT Head: Normocephalic, Atraumatic Eyes: Normal Conjunctiva: Normal Ears: Normal Nasal: Normal Mouth/Lips: Normal Mucous membranes: Normal Neck: Normal, Supple. No: Lymphadenopathy - Respiratory Respiratory status: No respiratory distress Chest status: Nontender Breath sounds: Normal, Wheezing Chest palpation: Normal - Cardiovascular Rhythm: Regular Heart sounds: S1 appreciated, S2 appreciated Murmur: No - Abdominal Inspection: Morbidly Obese Distension: No distension Bowel sounds: Normal Tenderness: Nontender - Back Back: CVA tenderness - right. No: Vertebra tenderness - Extremities General upper extremity: Normal inspection, Normal ROM General lower extremity: Normal inspection, Nontender - Neurological Neuro grossly intact: Yes Lebo Coma Scale Eye Opening: Spontaneous Lebo Coma Scale Verbal: Oriented Lebo Coma Scale Motor: Obeys Commands Duy Coma Scale Total: 15 - Psychological Associated symptoms: Normal affect, Normal mood - Skin Skin Temperature: Warm Skin Moisture: Dry Skin Color: Normal Course - Re-evaluation Re-evalutation: 12/29/17 15:[address] Alves regarding patient presentation. Recommends consultation with infectious disease doctor. Attempted to consult with patient' s [facility] supervisor [facility] regarding patient's history of chronic indwelling catheter with chronic E. coli ESBL infections. Patient states that she has seen infectious disease regarding this in the past and states that she had specific criteria under which she should be treated but patient does not know specifically what the criteria is. Consulted with Dr. Salazar, on-call for infectious disease at [facility], regarding patient presentation, diagnostic evaluation as well as previous history of E. coli ESBL infections. Reviewed patient's diagnostic evaluation as well as physical exam. Does not recommend any treatment with antibiotics at this time, does recommend culturing her urine. Consulted with Dr. Alves regarding this consultation, agrees with discharge plan of care at this time. No additional imaging advised at this time. Patient did have a recent outpatient CT scan performed on 12/19/2017 that demonstrated bilateral renal cyst, no evidence of any calculus. No concern for obstructive uropathy. No concern at this time for abscess. Patient without any significant elevated white blood cell count, afebrile and vital signs are stable. Abdomen is soft nontender. Patient nontoxic in appearance. - Vital Signs Vital signs: Temp Pulse Resp BP Pulse Ox 98.2 F 67 17 137/80 H 97 12/29/17 17:51 12/29/17 17:51 12/29/17 17:51 12/29/17 17:51 12/29/17 17:51 - Laboratory Result Diagrams: 12/29/17 12:35 12/29/17 12:35 Laboratory results interpreted by me: 12/29/17 12/29/17 12/29/17 12:35 12:35 13:01 WBC 10.6 H RBC 3.63 L Hgb 10.2 L Hct 30.5 L RDW 17.0 H Seg Neutrophils % 85.3 H Lymphocytes % 6.8 L Absolute Neutrophils 9.1 H Sodium 146.6 H Potassium 3.4 L Carbon Dioxide 33 H Est GFR ( Amer) 56 L Est GFR (Non-Af Amer) 47 L Glucose 136 H Lipase 17.7 L Ur Leukocyte Esterase LARGE H Urine Ascorbic Acid 40 H 12/29/17 14:45 WBC RBC Hgb Hct RDW Seg Neutrophils % Lymphocytes % Absolute Neutrophils Sodium Potassium Carbon Dioxide Est GFR ( Amer) Est GFR (Non-Af Amer) Glucose Lipase Ur Leukocyte Esterase LARGE H Urine Ascorbic Acid 40 H 12/29/17 18:29 Labs- Entire Visit 12/29/17 12/29/17 12/29/17 12:35 12:35 13:01 WBC 10.6 H RBC 3.63 L Hgb 10.2 L Hct 30.5 L MCV 84 MCH 28.0 MCHC 33.3 RDW 17.0 H Plt Count 224 Seg Neutrophils % 85.3 H Lymphocytes % 6.8 L Monocytes % 7.0 Eosinophils % 0.7 Basophils % 0.2 Absolute Neutrophils 9.1 H Absolute Lymphocytes 0.7 Absolute Monocytes 0.7 Absolute Eosinophils 0.1 Absolute Basophils 0.0 Sodium 146.6 H Potassium 3.4 L Chloride 103 Carbon Dioxide 33 H Anion Gap 11 BUN 20 Creatinine 1.14 Est GFR ( Amer) 56 L Est GFR (Non-Af Amer) 47 L Glucose 136 H Calcium 9.5 Total Bilirubin 0.4 Direct Bilirubin 0.4 Neonat Total Bilirubin Not Reportable Neonat Direct Bilirubin Not Reportable Neonat Indirect Bili Not Reportable AST 28 ALT 16 Alkaline Phosphatase 78 Total Protein 7.1 Albumin 3.7 Lipase 17.7 L Urine Color YELLOW Urine Appearance SLIGHTLY-CLOUDY Urine pH 5.0 Ur Specific [place] 1.015 Urine Protein NEGATIVE Urine Glucose (UA) NEGATIVE Urine Ketones NEGATIVE Urine Blood NEGATIVE Urine Nitrite NEGATIVE Urine Bilirubin NEGATIVE Urine Urobilinogen NEGATIVE Ur Leukocyte Esterase LARGE H Urine WBC (Auto) 118 Urine RBC (Auto) 12 U Hyaline Cast (Auto) 7 Urine Bacteria (Auto) 2+ Urine WBC Clumps Squamous Epi Cells Auto 1 Amorphous Sediment Auto Urine Mucus (Auto) RARE Urine Ascorbic Acid 40 H 12/29/17 14:45 WBC RBC Hgb Hct MCV MCH MCHC RDW Plt Count Seg Neutrophils % Lymphocytes % Monocytes % Eosinophils % Basophils % Absolute Neutrophils Absolute Lymphocytes Absolute Monocytes Absolute Eosinophils Absolute Basophils Sodium Potassium Chloride Carbon Dioxide Anion Gap BUN Creatinine Est GFR ( Amer) Est GFR (Non-Af Amer) Glucose Calcium Total Bilirubin Direct Bilirubin Neonat Total Bilirubin Neonat Direct Bilirubin Neonat Indirect Bili AST ALT Alkaline Phosphatase Total Protein Albumin Lipase Urine Color YELLOW Urine Appearance SLIGHTLY-CLOUDY Urine pH 5.0 Ur Specific [place] 1.010 Urine Protein NEGATIVE Urine Glucose (UA) NEGATIVE Urine Ketones NEGATIVE Urine Blood NEGATIVE Urine Nitrite NEGATIVE Urine Bilirubin NEGATIVE Urine Urobilinogen NEGATIVE Ur Leukocyte Esterase LARGE H Urine WBC (Auto) 112 Urine RBC (Auto) 9 U Hyaline Cast (Auto) 1 Urine Bacteria (Auto) 1+ Urine WBC Clumps MANY Squamous Epi Cells Auto 3 Amorphous Sediment Auto TRACE Urine Mucus (Auto) RARE Urine Ascorbic Acid 40 H - Diagnostic Test Radiology reviewed: Reports reviewed - From most recent outpatient CT scan report Discharge - Discharge Clinical Impression: Flank pain, Hypokalemia Condition: Stable Disposition: SNF-Other Instructions: Flank Pain ([facility]), Hypokalemia ([facility]) Additional Instructions: Return immediately for any new or worsening symptoms Followup with your primary care provider, call tomorrow to make a followup appointment Urine culture is pending, we will call if you need any different treatment. Your potassium was mildly decreased today, your primary doctor can recheck this test for you. Referrals: GILBERT CASTANEDA, [Primary Care Provider] - Follow up tomorrow
[2017-12-29 13:36] LABS: APPEARANCE,URINE SLIGHTLY-CLOUDY; BILIRUBIN,URINE NEGATIVE (NEGATIVE); COLOR,URINE YELLOW; GLUCOSE, URINE NEGATIVE (NEGATIVE); KETONES,URINE NEGATIVE (NEGATIVE); LEUKOCYTE ESTERASE,URINE LARGE (NEGATIVE); NITRITE,URINE NEGATIVE (NEGATIVE); PROTEIN,URINE NEGATIVE (NEGATIVE); URINE SPECIFIC GRAVITY 1.015; UROBILINOGEN,URINE NEGATIVE mg/dL (<2.0)
[2017-12-29 13:38] LABS: ABSOLUTE EOSINOPHILS # (AUTO) 0.1 10^3/uL (0.0-0.6); ABSOLUTE LYMPHOCYTES (AUTO) 0.7 10^3/uL (0.5-4.7); ABSOLUTE MONOCYTES (AUTO) 0.7 10^3/uL (0.1-1.4); ABSOLUTE NEUT (AUTO) 9.1 10^3/uL (1.7-8.2); BASOPHILS % (AUTO) 0.2 % (0-2); EOSINOPHILS % (AUTO) 0.7 % (0-6); HEMATOCRIT 30.5 % (36.0-47.0); HEMOGLOBIN 10.2 g/dL (12.0-15.5); LYMPHOCYTES % (AUTO) 6.8 % (13-45); MEAN CORPUSCULAR HGB CONC 33.3 g/dL (32.0-36.0); MEAN CORPUSCULAR VOLUME 84 fl (80-97); PLATELET COUNT 224 10^3/uL (150-450); RED BLOOD COUNT 3.63 10^6/uL (3.72-5.28); SEGMENTED NEUTROPHILS % (AUTO) 85.3 % (42-78); TOTAL CELLS COUNTED % (AUTO) 100 %; WHITE BLOOD COUNT 10.6 10^3/uL (4.0-10.5)
[2017-12-29 15:00] LABS: AMORPHOUS SEDIMENT,URINE TRACE /HPF; APPEARANCE,URINE SLIGHTLY-CLOUDY; BILIRUBIN,URINE NEGATIVE (NEGATIVE); COLOR,URINE YELLOW; GLUCOSE, URINE NEGATIVE (NEGATIVE); KETONES,URINE NEGATIVE (NEGATIVE); LEUKOCYTE ESTERASE,URINE LARGE (NEGATIVE); NITRITE,URINE NEGATIVE (NEGATIVE); PROTEIN,URINE NEGATIVE (NEGATIVE); UROBILINOGEN,URINE NEGATIVE mg/dL (<2.0)
[2017-12-29] MEDS ORDERED: POTASSIUM CHLORIDE 10 MEQ CAPSULE.ER PO ONE (16:02)
[2017-12-29] MEDS ORDERED: HYDROMORPHONE HCL INJ/PF 2 MG/ML AMPULE IV ONE (16:17)
[2017-12-29] MEDS ORDERED: LIDOCAINE 5% (700 MG) TRANSDERMAL ADH..PATCH TP ONE (16:18)
[2017-12-29 17:52] VITALS: BP 137/80
== END 2017-12-29 18:19 ==
LOC: ER 12:57
DX: E87.6 Hypokalemia (principal); R10.9 Unspecified abdominal pain; R19.7 Diarrhea, unspecified; R50.9 Fever, unspecified; I10 Essential (primary) hypertension; J44.9 Chronic obstructive pulmonary disease, unspecified; E11.9 Type 2 diabetes mellitus without complications
CPT/HCPCS: 99285; 51702; 96374; 36415; 87086; 83690; 85025; 87088; 80053; 81001; 87186; J1170; A9270

== ENCOUNTER 2018-01-13 16:01 | Inpatient (IN) | payer MEDICARE, MEDICAID ==
[2018-01-13] MEDS ORDERED: CEFTRIAXONE 1 GM/D5W RTU 1 GM/50 ML RTUPB IV ONE (16:18)
[2018-01-13] MEDS ORDERED: IPRATROPIUM/ALBUTEROL 0.5-2.5 MG/3 ML AMPUL NEB ONE (16:21)
--- NOTE | 2018-01-13 16:21 | ER Document Report ---
ED General - General Stated Complaint: RESPIRATORY DISTRESS Time Seen by Provider: 01/13/18 16:11 Mode of Arrival: Medic Information source: Patient, Emergency Med Personnel, Outside Facility Records Cannot obtain history due to: Altered mental status Notes: 72-year-old female history of COPD CHF based on 2 L nasal cannula presents with difficulty breathing coarse breath sounds over the past few days. Patient TRAVEL OUTSIDE OF THE [place] IN LAST 30 DAYS: No - HPI Onset: Other Onset/Duration: Persistent Quality of pain: Other Severity: Moderate Pain Level: 3 Associated symptoms: Body/muscle aches, Productive cough, Shortness of breath Exacerbated by: Walking, Coughing Relieved by: Denies Similar symptoms previously: No Recently seen / treated by doctor: No - Related Data Allergies/Adverse Reactions: Sulfa (Sulfonamide Antibiotics) Allergy (Intermediate, Verified 08/03/17 22:20) adhesive tape Allergy (Verified 08/03/17 22:20) atorvastatin calcium [From Lipitor] Allergy (Verified 08/03/17 22:20) celecoxib [From Celebrex] Allergy (Verified 08/03/17 22:20) Past Medical History - Social History Smoking Status: Former Smoker Cigarette use (# per day): No Chew tobacco use (# tins/day): No Smoking Education Provided: No Family History: Reviewed & Not Pertinent, Arthritis, CAD, CVA, DM, Hyperlipidemia, Hypertension - Past Medical History Cardiac Medical History: Reports: Hx Atrial Fibrillation, Hx Congestive Heart Failure - Diastolic dysfunction, Hx Heart Attack, Hx Hypertension - essential, Hx Pulmonary Embolism, Hx Heart Murmur Denies: Hx Coronary Artery Disease, Hx DVT, Hx Hypercholesterolemia, Hx Peripheral Vascular Disease Pulmonary Medical History: Reports: Hx Asthma, Hx Bronchitis, Hx COPD, Hx Pneumonia - Recurrent MRSA pneumonia., Hx Sleep Apnea - Uses C Pap Denies: Hx Tuberculosis Neurological Medical History: Denies: Hx Seizures Endocrine Medical History: Reports: Hx Diabetes Mellitus Type 2. Denies: Hx Diabetes Mellitus Type 1, Hx Hyperthyroidism, Hx Hypothyroidism Renal/ Medical History: Reports: Hx Renal Insufficiency. Denies: Hx Peritoneal Dialysis GI Medical History: Reports: Hx Gastroesophageal Reflux Disease, Hx Hiatal Hernia. Denies: Hx Cirrhosis, Hx Hepatitis Musculoskeletal Medical History: Reports Hx Arthritis, Reports Hx Fibromyalgia, Reports Hx Gout, Reports Hx Muscle Weakness Skin Medical History: Denies Hx Eczema, Denies Hx Psoriasis Psychiatric Medical History: Reports: Hx Anxiety, Hx Depression Infectious Medical History: Reports: Hx MRSA. Denies: Hx Hepatitis Past Surgical History: Reports: Hx Appendectomy, Hx Cholecystectomy, Hx Hysterectomy, Hx Orthopedic Surgery - Multiple left hip procedures, 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 - Immunizations Hx Diphtheria, Pertussis, Tetanus Vaccination: Yes Hx Pneumococcal Vaccination: 05/20/13 Review of Systems - Review of Systems Notes: I REVIEW OF SYSTEMS: CONSTITUTIONAL : Denies fever, chills, or sweats. Denies recent illness. EENT: Denies eye, ear, throat, or mouth pain or symptoms. Denies nasal or sinus congestion or discharge. Denies throat, tongue, or mouth swelling or difficulty swallowing. CARDIOVASCULAR: Denies chest pain. Denies palpitations or racing or irregular heart beat. Denies ankle edema. RESPIRATORY: Admits difficulty breathing shortness breath. GASTROINTESTINAL: Denies abdominal pain or distention. Denies nausea, vomiting , or diarrhea. Denies blood in vomitus, stools, or per rectum. Denies black, tarry stools. Denies constipation. GENITOURINARY: Denies difficulty urinating, painful urination, burning, frequency, blood in urine, or discharge. FEMALE GENITOURINARY: Denies vaginal bleeding, heavy or abnormal periods, irregular periods. Denies vaginal discharge or odor. MUSCULOSKELETAL: Denies back or neck pain or stiffness. Denies joint pain or swelling. SKIN: Denies rash, lesions or sores. HEMATOLOGIC : Denies easy bruising or bleeding. LYMPHATIC: Denies swollen, enlarged glands. NEUROLOGICAL: Confusion PSYCHIATRIC: Denies anxiety or stress. Denies depression, suicidal ideation, or homicidal ideation. ALL OTHER SYSTEMS REVIEWED AND NEGATIVE. PHYSICAL EXAMINATION: GENERAL: Chronically ill-appearing HEAD: Atraumatic, normocephalic. EYES: Pupils equal round and reactive to light, extraocular movements intact, conjunctiva are normal. ENT: Nares patent, oropharynx clear without exudates. Moist mucous membranes. NECK: Normal range of motion, supple without lymphadenopathy LUNGS: Coarse breath sounds all throughout HEART: Regular rate and rhythm without murmurs ABDOMEN: Soft, nontender, nondistended abdomen. No guarding, no rebound. No masses appreciated. Female : deferred Musculoskeletal: Normal range of motion, no pitting or edema. No cyanosis. NEUROLOGICAL: Cranial nerves grossly intact. Normal speech, normal gait. Normal sensory, motor exams PSYCH: Normal mood, normal affect. SKIN: Warm, Dry, normal turgor, no rashes or lesions noted. Dictation was performed using [employer] voice recognition software Physical Exam - Vital signs Vitals: Pulse Ox 100 01/13/18 16:13 Course - Re-evaluation Re-evalutation: 01/13/18 16:23 Patient is noted to have CRE in the urine, concern is for pneumonia based on her presentation generalized weakness, lab work pending patient will be started on antibiotics - Vital Signs Vital signs: Temp Pulse Resp BP Pulse Ox 98.4 F 12 125/55 L 97 01/13/18 17:04 01/13/18 17:32 01/13/18 17:32 01/13/18 17:32 - Laboratory Result Diagrams: 01/13/18 16:38 01/13/18 16:38 Laboratory results interpreted by me: 01/13/18 01/13/18 01/13/18 16:38 16:38 16:38 RBC 3.66 L Hgb 10.2 L Hct 30.7 L RDW 17.3 H Lymphocytes % 11.3 L Carbon Dioxide 35 H Est GFR ( Amer) 54 L Est GFR (Non-Af Amer) 44 L Direct Bilirubin 0.5 H Ur Leukocyte Esterase MODERATE H Urine Ascorbic Acid 40 H Discharge - Discharge Clinical Impression: COPD with acute bronchitis Condition: Stable Disposition: ADMITTED INPATIENT Admitting Provider: Hospitalist Unit Admitted: Telemetry Referrals: GILBERT CASTANEDA DO [Primary Care Provider] - Follow up as needed
--- NOTE | 2018-01-13 16:39 | RADIOLOGY REPORT (SQ) ---
EXAM DESCRIPTION: CHEST SINGLE VIEW COMPLETED DATE/TIME: 01/13/2018 4:29 pm REASON FOR STUDY: dyspnea COMPARISON: 10/28/2017 EXAM PARAMETERS: NUMBER OF VIEWS: One view. TECHNIQUE: Single frontal radiographic view of the chest acquired. RADIATION DOSE: NA LIMITATIONS: None. FINDINGS: LUNGS AND PLEURA: No opacities, masses or pneumothorax. No pleural effusion. MEDIASTINUM AND HILAR STRUCTURES: No masses. Contour normal. HEART AND VASCULAR STRUCTURES: The cardiac silhouette remains enlarged and is unchanged in configurat ion BONES: No acute findings. HARDWARE: None in the chest. OTHER: No other significant finding. IMPRESSION: No significant interval change. Cardiomegaly. Visualized lung mead are clear. Other findings as noted above TECHNICAL DOCUMENTATION: JOB ID: [id number] [employer]- All Rights Reserved Reading location - IP/workstation name: [email or web address]
[2018-01-13] MEDS ORDERED: CEFTRIAXONE INJ 1000 MG VIAL ONE (16:44)
[2018-01-13 16:59] LABS: ABSOLUTE EOSINOPHILS # (AUTO) 0.1 10^3/uL (0.0-0.6); ABSOLUTE LYMPHOCYTES (AUTO) 0.8 10^3/uL (0.5-4.7); ABSOLUTE MONOCYTES (AUTO) 0.7 10^3/uL (0.1-1.4); ABSOLUTE NEUT (AUTO) 5.4 10^3/uL (1.7-8.2); BASOPHILS % (AUTO) 0.5 % (0-2); EOSINOPHILS % (AUTO) 0.8 % (0-6); HEMATOCRIT 30.7 % (36.0-47.0); HEMOGLOBIN 10.2 g/dL (12.0-15.5); LYMPHOCYTES % (AUTO) 11.3 % (13-45); MEAN CORPUSCULAR HEMOGLOBIN 27.8 pg (27.0-33.4); MEAN CORPUSCULAR HGB CONC 33.3 g/dL (32.0-36.0); MEAN CORPUSCULAR VOLUME 84 fl (80-97); MONOCYTES % (AUTO) 9.6 % (3-13); PLATELET COUNT 182 10^3/uL (150-450); RED BLOOD COUNT 3.66 10^6/uL (3.72-5.28); RED CELL DISTRIBUTION WIDTH 17.3 % (11.5-14.0); SEGMENTED NEUTROPHILS % (AUTO) 77.8 % (42-78); TOTAL CELLS COUNTED % (AUTO) 100 %; WHITE BLOOD COUNT 6.9 10^3/uL (4.0-10.5)
[2018-01-13 17:23] LABS: ALANINE AMINOTRANSFERASE 19 U/L (9-52); ALBUMIN 3.6 g/dL (3.5-5.0); ALKALINE PHOSPHATASE 73 U/L (38-126); ANION GAP 10 (5-19); ASPARTATE AMINO TRANSFERASE 24 U/L (14-36); BILIRUBIN,DIRECT 0.5 mg/dL (0.0-0.4); BILIRUBIN,TOTAL 0.7 mg/dL (0.2-1.3); BLOOD UREA NITROGEN 20 mg/dL (7-20); CALCIUM 9.3 mg/dL (8.4-10.2); CARBON DIOXIDE 35 mmol/L (22-30); CHLORIDE 99 mmol/L (98-107); CREATINE KINASE 63 U/L (30-135); GLUCOSE 110 mg/dL (75-110); POTASSIUM 4.4 mmol/L (3.6-5.0); SODIUM 143.6 mmol/L (137-145); TOTAL PROTEIN 7.2 g/dL (6.3-8.2)
[2018-01-13 17:30] LABS: AMORPHOUS SEDIMENT,URINE TRACE /HPF; APPEARANCE,URINE CLOUDY; BILIRUBIN,URINE NEGATIVE (NEGATIVE); CALCIUM OXALATE CRYSTALS,URINE MANY /HPF; COLOR,URINE YELLOW; GLUCOSE, URINE NEGATIVE (NEGATIVE); KETONES,URINE NEGATIVE (NEGATIVE); LEUKOCYTE ESTERASE,URINE MODERATE (NEGATIVE); NITRITE,URINE NEGATIVE (NEGATIVE); PROTEIN,URINE NEGATIVE (NEGATIVE); URINE SPECIFIC GRAVITY 1.012; UROBILINOGEN,URINE NEGATIVE mg/dL (<2.0)
[2018-01-13 17:33] LABS: CREATINE KINASE MB 1.39 ng/mL (<4.55); NT PRO BNP 609 pg/mL (5-900); TROPONIN I < 0.012 ng/mL
[2018-01-13] MEDS ORDERED: ONDANSETRON 4 MG TAB.RAPDIS PO PRN (18:04)
--- NOTE | 2018-01-13 18:44 | PDOC H&P ---
History of Present Illness Admission Date/PCP: GILBERT CASTANEDA DO History of Present Illness: PORSHA WALDRON is a 72 year old female with extensive medical history including COPD, CAD, history of DVT, peripheral vascular disease, ROSETTA, CHF, hypothyroidism, hyperlipidemia, hypertension, stage III CKD, A. fib and depression, brought with chief complaint of shortness of breath of several day duration. Patient is somewhat somnolent and a complicated history from her. I got very brief history from ER attending note. Her blood works are unremarkable and her chest x-ray also reported as no acute pulmonary pathology except for cardiomegaly. They are attending considered the possibility of pneumonia but according my evaluation patient does not have pneumonia as she has COPD exacerbation. Review of system and further detailed history is unobtainable. Past Medical History Cardiac Medical History: Reports: Atrial Fibrillation, Congestive Heart Failure - Diastolic dysfunction, Myocardial Infarction, Hypertension - essential, Pulmonary Embolism, Heart Murmur Denies: Coronary Artery Disease, DVT, Hyperlipidema, Peripheral Vascular Disease Pulmonary Medical History: Reports: Asthma, Bronchitis, Chronic Obstructive Pulmonary Disease (COPD), Pneumonia - Recurrent MRSA pneumonia., Sleep Apnea - Uses C Pap Denies: Tuberculosis Neurological Medical History: Denies: Seizures Endocrine Medical History: Reports: Diabetes Mellitus Type 2 Denies: Diabetes Mellitus Type 1, Hyperthyroidism, Hypothyroidism GI Medical History: Reports: Gastroesophageal Reflux Disease, Hiatal Hernia Denies: Cirrhosis, Hepatitis Musculoskeltal Medical History: Reports: Arthritis, Fibromyalgia, Gout Skin Medical History: Denies: Eczema, Psoriasis Psychiatric Medical History: Reports: Depression Hematology: Reports: Anemia Infectious Medical History: Reports: Methicillin-Resistant Staph Aureus Past Surgical History Past Surgical History: Reports: Appendectomy, Cholecystectomy, Hysterectomy, Orthopedic Surgery - Multiple left hip procedures, 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 Social History Smoking Status: Former Smoker Frequency of Alcohol Use: None Hx Recreational Drug Use: No Drugs: None Hx Prescription Drug Abuse: No - Advance Directive Resuscitation Status: Do Not Resuscitate Family History Family History: Reviewed & Not Pertinent, Arthritis, CAD, CVA, DM, Hyperlipidemia, Hypertension Parental Family History Reviewed: Yes Children Family History Reviewed: Yes Sibling(s) Family History Reviewed.: Yes Medication/Allergy Home Medications: Acetaminophen [Tylenol 325 mg Tablet] 650 mg PO Q4HP PRN 09/09/17 Acetylcysteine [Mucomist 10% Neb 400 mg/4 mL Vial] 400 mg NEB RTQ6 09/09/17 Albuterol Sulfate [Proair HFA Inhalation Aerosol 8.5 gm MDI] 2 puff IH Q6HP PRN 09/09/17 Ascorbic Acid [Vitamin C 500 mg Tablet] 500 mg PO BID 09/09/17 Aspirin [Aspirin 81 mg Chewable Tablet] 81 mg PO DAILY 09/09/17 Baclofen [Baclofen 10 mg Tablet] 10 mg PO Q8HP PRN 09/09/17 Benzocaine/Menthol [Chloraseptic Sore Throat Lozenge] 1 ru PO Q1HP PRN Benzonatate [Tessalon Perles 100 mg Capsule] 200 mg PO Q8HP PRN 09/09/17 Biotin [Biotin 1 mg Tablet] 1 mg PO DAILYP PRN 09/09/17 Budesonide [Pulmicort 180 mcg Flexhaler] 2 puff IH Q12 09/09/17 Buspirone HCl [Buspar 5 mg Tablet] 5 mg PO Q12 09/09/17 Butalb/Acetaminophen/Caffeine [Aflttj-Vkaklwbm-Rxvq 50-325-40] 2 tab PO Q6HP PRN 09/09/17 Carboxymethylcellulose Sodium [Refresh Plus 0.5% Oph Soln 0.4 ml [place]] 1 drop OU QIDP PRN 09/09/17 Docusate Sodium [Colace 100 mg Capsule] 100 mg PO BID 09/09/17 Duloxetine HCl [Cymbalta] 90 mg PO DAILY 09/09/17 Ergocalciferol (Vitamin D2) [Drisdol 50,000 unit (1.25MG) Capsule] 50,000 unit PO MO@1000 09/09/17 Ferrous Sulfate [Feosol 325 mg Tablet] 325 mg PO BID 09/09/17 Fluticasone Propionate [Flonase Nasal [place] 50 Mcg/[place] 16 gm] 2 sprays NASL DAILY 09/09/17 Fluticasone/Salmeterol [Advair 500-50 Diskus 14 Dose/Diskus] 1 puff IH Q12 09/09 Furosemide [Lasix 20 mg Tablet] 20 mg PO QPM 09/09/17 Furosemide [Lasix 40 mg Tablet] 40 mg PO QAM 09/09/17 Hydralazine HCl [Apresoline 25 mg Tablet] 25 mg PO Q8 09/09/17 Insulin Detemir [Levemir Flextouch] 30 units SQ DAILY 09/09/17 Insulin Lispro [Humalog Insulin (Lispro) 100 unit/mL] 0 units SQ .SLIDING SCALE 09/09/17 Ipratropium/Albuterol Sulfate [Iprat-Albut 0.5-3(2.5) mg/3 ml] 3 ml NEB [id number] 09/09/17 Lactulose [Enulose 10 gm/15 mL Oral Solution] 15 ml PO BIDP PRN 09/09/17 Levalbuterol HCl [Xopenex Neb 0.63 mg/3 ml Ampul] 0.63 mg NEB RTQ8 09/09/17 Lidocaine [Lidoderm 5% (700 mg) Transdermal Patch] 1 patch TOP DAILY 09/09/17 Linaclotide [Linzess 145 Mcg Capsule] 145 mcg PO DAILY 09/09/17 Loratadine [Claritin 10 mg Tablet] 10 mg PO DAILY 09/09/17 Magnesium Hydroxide [Milk of Magnesia 30 ml Udcup] 30 ml PO DAILYP PRN 09/09/17 Melatonin 10 mg PO QHS 09/09/17 Menthol [Biofreeze] 1 applic TOP DAILYP PRN 09/09/17 Metoprolol Succinate [Toprol Xl 50 mg Tab.sr] 50 mg PO DAILY 09/09/17 Nitroglycerin [Nitrostat] 0.4 mg SL Q5MP PRN 09/09/17 Omeprazole 20 mg PO Q6AM 09/09/17 Polyethylene Glycol 3350 [Miralax Powder 17 gm/Packet] 17 gm PO DAILY 09/09/17 Potassium Chloride [Klor-Con 10 Meq Capsule ER] 10 meq PO DAILY 09/09/17 Prednisone [Deltasone 10 mg Tablet] 10 mg PO DAILY 09/09/17 Pregabalin [Lyrica 75 mg Capsule] 75 mg PO Q8 09/09/17 Promethazine HCl [Phenergan 25 mg Tablet] 25 mg PO Q6HP PRN 09/09/17 Ranitidine HCl [Zantac 150 mg Tablet] 150 mg PO BID 09/09/17 Ranolazine [Ranexa 500 mg Tab.sr] 500 mg PO Q12 09/09/17 Roflumilast [Daliresp 500 mcg Tablet] 500 mcg PO DAILY 09/09/17 Sennosides/Docusate 8.6-50 mg [Senna Plus Tablet] 1 tab PO QHS 09/09/17 Tamsulosin HCl [Flomax 0.4 mg Cap.sr] 0.4 mg PO DAILY 09/09/17 Tiotropium [place] [Spiriva Handihaler 5 Cap/Kit (18 Mcg/Cap)] 1 puff IH DAILY 09/09/17 Diltiazem HCl [Cardizem 60 mg Tablet] 60 mg PO Q8 tablet 09/16/17 Docusate Sodium [Colace 100 mg Capsule] 100 mg PO BID capsule 09/16/17 Fentanyl [Duragesic 25 mcg/hr Transdermal Patch] 1 patch TOP Q3D #1 09/16/17 Oxycodone HCl [Oxy-Ir 5 mg Tablet] 5 mg PO Q6 #5 09/16/17 Allergies/Adverse Reactions: Sulfa (Sulfonamide Antibiotics) Allergy (Intermediate, Verified 08/03/17 22:20) adhesive tape Allergy (Verified 08/03/17 22:20) atorvastatin calcium [From Lipitor] Allergy (Verified 08/03/17 22:20) celecoxib [From Celebrex] Allergy (Verified 08/03/17 22:20) Review of Systems ROS unobtainable: Due to mental status Physical Exam Vital Signs: Temp Pulse Resp BP Pulse Ox 98.4 F 12 125/55 L 97 01/13/18 17:04 01/13/18 17:32 01/13/18 17:32 01/13/18 17:32 Intake & Output 01/12/18 01/13/18 01/14/18 06:59 06:59 06:59 Weight 93.7 kg General appearance: PRESENT: mild distress Head exam: PRESENT: atraumatic Eye exam: PRESENT: conjunctiva pink Neck exam: ABSENT: carotid bruit, JVD, lymphadenopathy, thyromegaly Respiratory exam: PRESENT: rhonchi, wheezes Cardiovascular exam: PRESENT: diastolic murmur, irregular rhythm GI/Abdominal exam: PRESENT: normal bowel sounds, soft. ABSENT: distended, guarding, mass, organolmegaly, rebound, tenderness Neurological exam: PRESENT: other - Somnolent Results Laboratory Results: 01/13/18 16:38 01/13/18 16:38 01/13/18 01/13/18 01/13/18 16:38 16:38 16:38 WBC 6.9 RBC 3.66 L Hgb 10.2 L Hct 30.7 L MCV 84 MCH 27.8 MCHC 33.3 RDW 17.3 H Plt Count 182 Seg Neutrophils % 77.8 Lymphocytes % 11.3 L Monocytes % 9.6 Eosinophils % 0.8 Basophils % 0.5 Absolute Neutrophils 5.4 Absolute Lymphocytes 0.8 Absolute Monocytes 0.7 Absolute Eosinophils 0.1 Absolute Basophils 0.0 Sodium 143.6 Potassium 4.4 Chloride 99 Carbon Dioxide 35 H Anion Gap 10 BUN 20 Creatinine 1.19 Est GFR ( Amer) 54 L Est GFR (Non-Af Amer) 44 L Glucose 110 Calcium 9.3 Total Bilirubin 0.7 AST 24 ALT 19 Alkaline Phosphatase 73 Total Protein 7.2 Albumin 3.6 Urine Color YELLOW Urine Appearance CLOUDY Urine pH 5.0 Ur Specific [place] 1.012 Urine Protein NEGATIVE Urine Glucose (UA) NEGATIVE Urine Ketones NEGATIVE Urine Blood NEGATIVE Urine Nitrite NEGATIVE Ur Leukocyte Esterase MODERATE H Urine WBC (Auto) 25 Urine RBC (Auto) 41 01/13/18 01/13/18 16:38 16:38 Creatine Kinase 63 CK-MB (CK-2) 1.39 Troponin I < 0.012 NT-Pro-B Natriuret Pep 609 Impressions: Chest X-Ray 01/13/18 16:12 IMPRESSION: No significant interval change. Cardiomegaly. Visualized lung mead are clear. Other findings as noted above Assessment & Plan - Diagnosis (1) COPD with exacerbation Is this a current diagnosis for this admission?: Yes Plan: Patient has been started on bronchodilator, Zithromax, Solu-Medrol and Spiriva. (2) Chronic a-fib Is this a current diagnosis for this admission?: Yes Plan: Rate controlled. And will continue her home medications. (3) Type 2 diabetes mellitus Is this a current diagnosis for this admission?: Yes Plan: Continue be on sliding scale. Once she is able to tolerate p.o. feeding (4) Coronary artery disease Qualifiers: Coronary Disease-Associated Artery/Lesion type: [place] artery Is this a current diagnosis for this admission?: Yes Plan: Patient does not have chest pain. We will continue her home medications. (5) Hypothyroidism (acquired) Is this a current diagnosis for this admission?: Yes Plan: Continue her Synthroid (6) Obstructive sleep apnea Is this a current diagnosis for this admission?: Yes Plan: Patient has been started on CPAP. (7) Hypertension Qualifiers: Hypertension type: essential hypertension Qualified Code(s): I10 - Essential (primary) hypertension Is this a current diagnosis for this admission?: Yes Plan: Continue her home medications. (8) Hyperlipidemia Qualifiers: Hyperlipidemia type: unspecified Qualified Code(s): E78.5 - Hyperlipidemia , unspecified Is this a current diagnosis for this admission?: Yes Plan: Continue her home medications. - Time Time Spent: 30 to 50 Minutes - Inpatient Certification Medical Necessity: Need Close Monitoring Due to Risk of Patient Decompensation, Need For Continuous Telemetry Monitoring, Need for IV Antibiotics
--- NOTE | 2018-01-13 19:22 | EKG REPORT ---
SEVERITY:- ABNORMAL ECG - SINUS RHYTHM LEFT BUNDLE BRANCH BLOCK : Confirmed by: Jung Olvera 13-Jan-2018 19:21:02
[2018-01-13] MEDS ORDERED: METHYLPREDNISOLONE INJ 40 MG/1 ML SDV IV ONE (19:30)
[2018-01-13 19:31] LABS: ARTERIAL BLOOD BASE EXCESS 7.5 mmol/L; ARTERIAL BLOOD H2CO3 2.28 mmol/L (1.05-1.35); ARTERIAL BLOOD HCO3 36.3 mmol/L (20-26); ARTERIAL BLOOD O2 SATURATION 96.7 % (94-98); ARTERIAL BLOOD PO2 100.3 mmHg (80-100); ARTERIAL BLOOD TOTAL CO2 38.6 mmol/L (21-25)
[2018-01-13 19:38] LABS: ARTERIAL BLOOD FIO2 4.5L
[2018-01-13 19:40] LABS: ARTERIAL BLOOD PCO2 75.9 mmHg (35-45)
[2018-01-13] MEDS: IPRATROPIUM/ALBUTEROL 0.5-2.5 MG/3 ML AMPUL NEB SCH (20:08)
[2018-01-13] MEDS: AZITHROMYCIN 500 MG in DEXTROSE 5%-WATER 250 ML IV SCH (22:32)
[2018-01-13] MEDS: HEPARIN SOD (PORCINE) 5,000 UNIT/ML 1 ML SYRINGE SUBCUT SCH (22:32)
[2018-01-14] MEDS: IPRATROPIUM/ALBUTEROL 0.5-2.5 MG/3 ML AMPUL NEB SCH ×6 (00:09→19:36)
[2018-01-14] MEDS: METHYLPREDNISOLONE INJ 40 MG/1 ML SDV IV SCH ×3 (02:53→19:01)
[2018-01-14] MEDS: LANSOPRAZOLE 30 MG TAB.RAP.DR PO SCH (06:56)
[2018-01-14] MEDS: HEPARIN SOD (PORCINE) 5,000 UNIT/ML 1 ML SYRINGE SUBCUT SCH ×3 (06:58→21:05)
[2018-01-14 07:05] LABS: ABSOLUTE LYMPHOCYTES (AUTO) 0.5 10^3/uL (0.5-4.7); ABSOLUTE MONOCYTES (AUTO) 0.1 10^3/uL (0.1-1.4); ABSOLUTE NEUT (AUTO) 4.2 10^3/uL (1.7-8.2); BASOPHILS % (AUTO) 0.2 % (0-2); HEMATOCRIT 29.7 % (36.0-47.0); HEMOGLOBIN 10.2 g/dL (12.0-15.5); LYMPHOCYTES % (AUTO) 9.5 % (13-45); MEAN CORPUSCULAR HEMOGLOBIN 28.4 pg (27.0-33.4); MEAN CORPUSCULAR HGB CONC 34.4 g/dL (32.0-36.0); MEAN CORPUSCULAR VOLUME 83 fl (80-97); PLATELET COUNT 164 10^3/uL (150-450); RED BLOOD COUNT 3.59 10^6/uL (3.72-5.28); RED CELL DISTRIBUTION WIDTH 16.2 % (11.5-14.0); SEGMENTED NEUTROPHILS % (AUTO) 88.3 % (42-78); TOTAL CELLS COUNTED % (AUTO) 100 %; WHITE BLOOD COUNT 4.8 10^3/uL (4.0-10.5)
[2018-01-14 07:18] LABS: ANION GAP 10 (5-19); BLOOD UREA NITROGEN 20 mg/dL (7-20); CALCIUM 9.1 mg/dL (8.4-10.2); CARBON DIOXIDE 35 mmol/L (22-30); CHLORIDE 99 mmol/L (98-107); GLUCOSE 123 mg/dL (75-110); POTASSIUM 4.3 mmol/L (3.6-5.0); SODIUM 144.2 mmol/L (137-145)
[2018-01-14 12:22] LABS: ARTERIAL BLOOD BASE EXCESS 10.3 mmol/L; ARTERIAL BLOOD H2CO3 1.67 mmol/L (1.05-1.35); ARTERIAL BLOOD HCO3 36.2 mmol/L (20-26); ARTERIAL BLOOD O2 SATURATION 99.6 % (94-98); ARTERIAL BLOOD PCO2 55.6 mmHg (35-45); ARTERIAL BLOOD PH 7.43 (7.35-7.45); ARTERIAL BLOOD PO2 261.6 mmHg (80-100); ARTERIAL BLOOD TOTAL CO2 37.9 mmol/L (21-25)
[2018-01-14 12:24] LABS: ARTERIAL BLOOD FIO2 35%
--- NOTE | 2018-01-14 12:33 | PDOC PROGRESS REPORT ---
Subjective Progress Note for:: 01/14/18 Subjective:: This is 72 years old shelter resident brought with chief complaint of shortness of breath yesterday. Patient admitted as a case of COPD exacerbation evidenced by her ABG shows pH of 7.3 and PCO2 79.5. Patient has been started on bronchodilators, Solu-Medrol. Supplemental oxygen showed also on CPAP for her obstructive sleep apnea this morning ABG shows marked improvement her pH increased from 7.3 to7.43 and her PCO2 from 79.5 to 55.6. I seen patient propped up in bed. She does not know why she is brought to hospital. Reason For Visit: COPD EXACERBATION Physical Exam Vital Signs: Temp Pulse Resp BP Pulse Ox 97.7 F 83 23 H 141/65 H 100 01/14/18 08:09 01/14/18 12:00 01/14/18 12:00 01/14/18 08:09 01/14/18 12:00 Intake & Output 01/13/18 01/14/18 01/15/18 06:59 06:59 06:59 Intake Total 280 Output Total 800 Balance -520 Weight 92.5 kg General appearance: PRESENT: mild distress Neck exam: ABSENT: carotid bruit, JVD, lymphadenopathy, thyromegaly Respiratory exam: PRESENT: rhonchi, wheezes Cardiovascular exam: PRESENT: irregular rhythm GI/Abdominal exam: PRESENT: normal bowel sounds, soft. ABSENT: distended, guarding, mass, organolmegaly, rebound, tenderness Results Laboratory Results: 01/14/18 05:57 01/14/18 05:57 01/13/18 01/14/18 01/14/18 19:20 05:57 05:57 WBC 4.8 RBC 3.59 L Hgb 10.2 L Hct 29.7 L MCV 83 MCH 28.4 MCHC 34.4 RDW 16.2 H Plt Count 164 Seg Neutrophils % 88.3 H Lymphocytes % 9.5 L Monocytes % 2.0 L Eosinophils % 0.0 Basophils % 0.2 Absolute Neutrophils 4.2 Absolute Lymphocytes 0.5 Absolute Monocytes 0.1 Absolute Eosinophils 0.0 Absolute Basophils 0.0 Carbonic Acid 2.28 H HCO3/H2CO3 Ratio 15:1 ABG pH 7.30 L ABG pCO2 75.9 H* ABG pO2 100.3 H ABG HCO3 36.3 H ABG O2 Saturation 96.7 ABG Base Excess 7.5 FiO2 4.5L Sodium 144.2 Potassium 4.3 Chloride 99 Carbon Dioxide 35 H Anion Gap 10 BUN 20 Creatinine 1.01 Est GFR ( Amer) > 60 Est GFR (Non-Af Amer) 54 L Glucose 123 H Calcium 9.1 TSH 01/14/18 01/14/18 05:57 12:00 WBC RBC Hgb Hct MCV MCH MCHC RDW Plt Count Seg Neutrophils % Lymphocytes % Monocytes % Eosinophils % Basophils % Absolute Neutrophils Absolute Lymphocytes Absolute Monocytes Absolute Eosinophils Absolute Basophils Carbonic Acid 1.67 H HCO3/H2CO3 Ratio 21:1 ABG pH 7.43 ABG pCO2 55.6 H ABG pO2 261.6 H ABG HCO3 36.2 H ABG O2 Saturation 99.6 H ABG Base Excess 10.3 FiO2 35% Sodium Potassium Chloride Carbon Dioxide Anion Gap BUN Creatinine Est GFR ( Amer) Est GFR (Non-Af Amer) Glucose Calcium TSH 0.48 01/14/18 05:57 NT-Pro-B Natriuret Pep 416 Impressions: Chest X-Ray 01/13/18 16:12 IMPRESSION: No significant interval change. Cardiomegaly. Visualized lung mead are clear. Other findings as noted above Assessment & Plan - Diagnosis (1) COPD with exacerbation Is this a current diagnosis for this admission?: Yes Plan: Improving. Continue current regimen. (2) Chronic a-fib Is this a current diagnosis for this admission?: Yes Plan: Rate controlled. And will continue her home medications. (3) Type 2 diabetes mellitus Is this a current diagnosis for this admission?: Yes Plan: Continue be on sliding scale. Once she is able to tolerate p.o. feeding (4) Coronary artery disease Qualifiers: Coronary Disease-Associated Artery/Lesion type: [place] artery Is this a current diagnosis for this admission?: Yes Plan: Patient does not have chest pain. We will continue her home medications. (5) Hypothyroidism (acquired) Is this a current diagnosis for this admission?: Yes Plan: Continue her Synthroid (6) Obstructive sleep apnea Is this a current diagnosis for this admission?: Yes Plan: Patient has been started on CPAP. (7) Hypertension Qualifiers: Hypertension type: essential hypertension Qualified Code(s): I10 - Essential (primary) hypertension Is this a current diagnosis for this admission?: Yes Plan: Continue her home medications. (8) Hyperlipidemia Qualifiers: Hyperlipidemia type: unspecified Qualified Code(s): E78.5 - Hyperlipidemia , unspecified Is this a current diagnosis for this admission?: Yes Plan: Continue her home medications.
[2018-01-14] MEDS ORDERED: BENZONATATE 100 MG CAPSULE PO PRN (14:03)
[2018-01-14] MEDS ORDERED: CARBOXYMETHYLCELLULOSE SOD 0.5% 0.4 ML DROPERETTE OU PRN (14:03)
[2018-01-14] MEDS ORDERED: LACTULOSE PO PRN (14:03)
[2018-01-14] MEDS ORDERED: MAGNESIUM HYDROXIDE SUSP 30 ML UDCUP PO PRN (14:03)
[2018-01-14] MEDS ORDERED: BUTALB/ACETAMINOPHEN/CAFFEINE 1 TAB EACH PO PRN (14:03)
[2018-01-14] MEDS ORDERED: (PENDING PHARMACY ID) (Biotin [Biotin 1 Mg Tablet] 1 MG) PO PRN (14:03)
[2018-01-14] MEDS ORDERED: BENZOCAINE/MENTHOL SORE THROAT LOZENGE PO PRN (14:03)
[2018-01-14] MEDS ORDERED: ACETAMINOPHEN 325 MG TABLET PO PRN (14:03)
[2018-01-14] MEDS ORDERED: (PENDING PHARMACY ID) (Menthol [Biofreeze] 1 APPLIC) TOP PRN (14:03)
[2018-01-14] MEDS ORDERED: LACTULOSE SYRUP 20 GM/30 ML UDCUP PO PRN (15:01)
[2018-01-14] MEDS: BACLOFEN 10 MG TABLET PO PRN (16:18)
[2018-01-14] MEDS ORDERED: (PENDING PHARMACY ID) (Ranitidine Hcl [Zantac 150 Mg Tablet] 150 MG) PO SCH (18:00)
[2018-01-14] MEDS: FUROSEMIDE 20 MG TABLET PO SCH (19:00)
[2018-01-14] MEDS: OXYCODONE HCL IR 5 MG TABLET PO SCH (19:00)
[2018-01-14] MEDS: FERROUS SULFATE 325 MG TABLET PO SCH (19:00)
[2018-01-14] MEDS: ASCORBIC ACID 500 MG TABLET PO SCH (19:00)
[2018-01-14] MEDS: DOCUSATE SODIUM 100 MG CAPSULE PO SCH (19:01)
[2018-01-14] MEDS: ACETYLCYSTEINE 10% NEB 400 MG/4 ML VIAL NEB SCH (19:36)
[2018-01-14] MEDS: MELATONIN 5 MG TABLET PO SCH (21:04)
[2018-01-14] MEDS: FAMOTIDINE 20 MG TABLET PO SCH (21:04)
[2018-01-14] MEDS: SENNOSIDES/DOCUSATE 8.6-50 MG 1 EACH TABLET PO SCH (21:04)
[2018-01-14] MEDS: PREGABALIN 75 MG CAPSULE PO SCH (21:04)
[2018-01-14] MEDS: FLUTICASONE/SALMETEROL DISKUS 500-50 MCG/DOSE IH SCH (21:04)
[2018-01-14] MEDS: BUSPIRONE HCL 10 MG TABLET PO SCH (21:04)
[2018-01-14] MEDS: HYDRALAZINE HCL 25 MG TABLET PO SCH (21:05)
[2018-01-14] MEDS: DILTIAZEM HCL 60 MG TABLET PO SCH (21:05)
[2018-01-14] MEDS: AZITHROMYCIN 500 MG in DEXTROSE 5%-WATER 250 ML IV SCH (21:05)
[2018-01-14] MEDS: RANOLAZINE 500 MG TAB.SR.12H PO SCH (21:07)
[2018-01-14] MEDS ORDERED: (PENDING PHARMACY ID) (Budesonide [Pulmicort 180 Mcg Flexhaler] 2 PUFF) IH SCH (22:00)
[2018-01-14] MEDS ORDERED: (PENDING PHARMACY ID) (Buspirone Hcl [Buspar 5 Mg Tablet] 5 MG) PO SCH (22:00)
[2018-01-14] MEDS ORDERED: (PENDING PHARMACY ID) (Melatonin [Melatonin] 10 MG) PO SCH (22:00)
[2018-01-15] MEDS: IPRATROPIUM/ALBUTEROL 0.5-2.5 MG/3 ML AMPUL NEB SCH ×6 (00:05→19:44)
[2018-01-15] MEDS: BACLOFEN 10 MG TABLET PO PRN (01:15)
[2018-01-15] MEDS: METHYLPREDNISOLONE INJ 40 MG/1 ML SDV IV SCH ×3 (01:15→19:50)
[2018-01-15] MEDS: OXYCODONE HCL IR 5 MG TABLET PO SCH ×5 (01:15→23:27)
[2018-01-15] MEDS: ACETYLCYSTEINE 10% NEB 400 MG/4 ML VIAL NEB SCH ×3 (02:01→19:44)
[2018-01-15 05:34] LABS: ABSOLUTE LYMPHOCYTES (AUTO) 0.4 10^3/uL (0.5-4.7); ABSOLUTE MONOCYTES (AUTO) 0.2 10^3/uL (0.1-1.4); BASOPHILS % (AUTO) 0.2 % (0-2); HEMATOCRIT 32.7 % (36.0-47.0); HEMOGLOBIN 10.9 g/dL (12.0-15.5); LYMPHOCYTES % (AUTO) 9.4 % (13-45); MEAN CORPUSCULAR HEMOGLOBIN 27.7 pg (27.0-33.4); MEAN CORPUSCULAR HGB CONC 33.5 g/dL (32.0-36.0); MEAN CORPUSCULAR VOLUME 83 fl (80-97); MONOCYTES % (AUTO) 3.9 % (3-13); PLATELET COUNT 188 10^3/uL (150-450); RED BLOOD COUNT 3.95 10^6/uL (3.72-5.28); SEGMENTED NEUTROPHILS % (AUTO) 86.5 % (42-78); TOTAL CELLS COUNTED % (AUTO) 100 %; WHITE BLOOD COUNT 4.6 10^3/uL (4.0-10.5)
[2018-01-15 05:57] LABS: ANION GAP 12 (5-19); BLOOD UREA NITROGEN 23 mg/dL (7-20); CALCIUM 9.5 mg/dL (8.4-10.2); CARBON DIOXIDE 31 mmol/L (22-30); CHLORIDE 100 mmol/L (98-107); GLUCOSE 154 mg/dL (75-110); POTASSIUM 4.3 mmol/L (3.6-5.0)
[2018-01-15] MEDS: PREGABALIN 75 MG CAPSULE PO SCH ×3 (07:03→22:01)
[2018-01-15] MEDS: DILTIAZEM HCL 60 MG TABLET PO SCH ×3 (07:04→22:02)
[2018-01-15] MEDS: HEPARIN SOD (PORCINE) 5,000 UNIT/ML 1 ML SYRINGE SUBCUT SCH (07:07)
[2018-01-15] MEDS: LANSOPRAZOLE 30 MG TAB.RAP.DR PO SCH (07:07)
[2018-01-15] MEDS: HYDRALAZINE HCL 25 MG TABLET PO SCH ×3 (07:07→22:00)
[2018-01-15] MEDS: FUROSEMIDE 40 MG TABLET PO SCH (08:08)
[2018-01-15] MEDS ORDERED: (PENDING PHARMACY ID) (Roflumilast [Daliresp 500 Mcg Tablet] 500 MCG) PO SCH (10:00)
[2018-01-15] MEDS ORDERED: PREDNISONE 10 MG TABLET PO SCH (10:00)
[2018-01-15] MEDS ORDERED: (PENDING PHARMACY ID) (Linaclotide 145 MCG) PO SCH (10:00)
[2018-01-15] MEDS ORDERED: NITROGLYCERIN 0.4 MG/TAB 25 TAB/BOTTLE ONE (10:46)
[2018-01-15] MEDS: NITROGLYCERIN 0.4 MG/TAB 25 TAB/BOTTLE SL PRN ×2 (10:49→11:06)
[2018-01-15] MEDS: TAMSULOSIN HCL 0.4 MG CAP.SR.24H PO SCH (12:11)
[2018-01-15] MEDS: LORATADINE 10 MG TABLET PO SCH (12:12)
[2018-01-15] MEDS: METOPROLOL SUCCINATE 50 MG TAB.SR.24H PO SCH (12:13)
[2018-01-15] MEDS: FERROUS SULFATE 325 MG TABLET PO SCH ×2 (12:13→19:49)
[2018-01-15] MEDS: FAMOTIDINE 20 MG TABLET PO SCH ×2 (12:14→22:02)
[2018-01-15] MEDS: ASCORBIC ACID 500 MG TABLET PO SCH ×2 (12:14→19:50)
[2018-01-15] MEDS: BUSPIRONE HCL 10 MG TABLET PO SCH ×2 (12:14→22:01)
[2018-01-15] MEDS: DOCUSATE SODIUM 100 MG CAPSULE PO SCH ×2 (12:15→19:35)
[2018-01-15] MEDS: POTASSIUM CHLORIDE 10 MEQ CAPSULE.ER PO SCH (12:15)
[2018-01-15] MEDS: ROFLUMILAST 500 MCG TABLET PO SCH (12:15)
[2018-01-15] MEDS: POLYETHYLENE GLYCOL 3350 POWDER 17 GM/1 PACKET PO SCH (12:16)
[2018-01-15] MEDS: ASPIRIN 81 MG TABLET, CHEWABLE PO SCH (12:16)
[2018-01-15] MEDS: TIOTROPIUM BROMIDE DPI 5 CAP/KIT (18 MCG/CAP) IH SCH (12:17)
[2018-01-15] MEDS: FLUTICASONE/SALMETEROL DISKUS 500-50 MCG/DOSE IH SCH ×2 (12:17→22:02)
[2018-01-15] MEDS: DULOXETINE HCL 30 MG CAPSULE.DR PO SCH (12:18)
[2018-01-15] MEDS: FLUTICASONE NASAL SPRAY 50 MCG/SPRY 120 SPRAY/16 GM NASL SCH (12:20)
[2018-01-15] MEDS: RANOLAZINE 500 MG TAB.SR.12H PO SCH ×2 (12:20→22:02)
[2018-01-15] MEDS: LIDOCAINE 5% (700 MG) TRANSDERMAL ADH..PATCH TOP SCH (12:31)
[2018-01-15] MEDS: ENOXAPARIN SODIUM INJ 40 MG/0.4 ML DISP.SYRIN SUBCUT SCH (12:31)
[2018-01-15] MEDS: INSULIN DETEMIR 100 UNIT/ML 3 ML PEN SUBCUT SCH (12:32)
--- NOTE | 2018-01-15 12:43 | PDOC PROGRESS REPORT ---
Subjective Progress Note for:: 01/15/18 Subjective:: I seen patient propped up in bed and enjoying her breakfast. Her shortness of breath is relatively subsiding. But patient still wheezing. She requests for pain medication since she is aching all over the body due to her arthritis and fibromyalgia. No fever, chest pain, cough, nausea, vomiting or diarrhea. Reason For Visit: COPD EXACERBATION Physical Exam Vital Signs: Temp Pulse Resp BP Pulse Ox 98.7 F 117 H 24 H 111/74 96 01/15/18 11:06 01/15/18 11:06 01/15/18 11:06 01/15/18 11:06 01/15/18 11:06 Intake & Output 01/14/18 01/15/18 01/16/18 06:59 06:59 06:59 Intake Total 280 790 Output Total 800 600 Balance -520 190 Weight 92.5 kg 92.5 kg Results Laboratory Results: 01/15/18 04:43 01/15/18 04:43 01/15/18 01/15/18 04:43 04:43 WBC 4.6 RBC 3.95 Hgb 10.9 L Hct 32.7 L MCV 83 MCH 27.7 MCHC 33.5 RDW 17.0 H Plt Count 188 Seg Neutrophils % 86.5 H Lymphocytes % 9.4 L Monocytes % 3.9 Eosinophils % 0.0 Basophils % 0.2 Absolute Neutrophils 4.0 Absolute Lymphocytes 0.4 L Absolute Monocytes 0.2 Absolute Eosinophils 0.0 Absolute Basophils 0.0 Sodium 143.0 Potassium 4.3 Chloride 100 Carbon Dioxide 31 H Anion Gap 12 BUN 23 H Creatinine 0.91 Est GFR ( Amer) > 60 Est GFR (Non-Af Amer) > 60 Glucose 154 H Calcium 9.5 01/14/18 01/15/18 05:57 11:03 Troponin I 0.015 NT-Pro-B Natriuret Pep 416 Impressions: Chest X-Ray 01/13/18 16:12 IMPRESSION: No significant interval change. Cardiomegaly. Visualized lung mead are clear. Other findings as noted above Assessment & Plan - Diagnosis (1) COPD with exacerbation Is this a current diagnosis for this admission?: Yes Plan: Continue current regimen (2) Chronic a-fib Is this a current diagnosis for this admission?: Yes Plan: Rate controlled. And will continue her home medications. (3) Type 2 diabetes mellitus Is this a current diagnosis for this admission?: Yes Plan: Continue sliding scale, Accu-Chek before meals at bedtime (4) Coronary artery disease Qualifiers: Coronary Disease-Associated Artery/Lesion type: [place] artery Is this a current diagnosis for this admission?: Yes Plan: Patient does not have chest pain. We will continue her home medications. (5) Hypothyroidism (acquired) Is this a current diagnosis for this admission?: Yes Plan: Continue her Synthroid (6) Obstructive sleep apnea Is this a current diagnosis for this admission?: Yes Plan: Patient has been started on CPAP. (7) Hypertension Qualifiers: Hypertension type: essential hypertension Qualified Code(s): I10 - Essential (primary) hypertension Is this a current diagnosis for this admission?: Yes Plan: Continue her home medications. (8) Hyperlipidemia Qualifiers: Hyperlipidemia type: unspecified Qualified Code(s): E78.5 - Hyperlipidemia , unspecified Is this a current diagnosis for this admission?: Yes Plan: Continue her home medications.
[2018-01-15] MEDS ORDERED: FENTANYL 25 MCG/HR PATCH.TD72 TD ONE (13:00)
[2018-01-15 15:49] LABS: APPEARANCE,URINE SLIGHTLY-CLOUDY; BILIRUBIN,URINE NEGATIVE (NEGATIVE); CALCIUM OXALATE CRYSTALS,URINE RARE /HPF; COLOR,URINE YELLOW; GLUCOSE, URINE NEGATIVE (NEGATIVE); KETONES,URINE TRACE mg/dL (NEGATIVE); LEUKOCYTE ESTERASE,URINE TRACE (NEGATIVE); NITRITE,URINE NEGATIVE (NEGATIVE); PROTEIN,URINE NEGATIVE (NEGATIVE); URINE SPECIFIC GRAVITY 1.015; UROBILINOGEN,URINE NEGATIVE mg/dL (<2.0)
[2018-01-15] MEDS: FUROSEMIDE 20 MG TABLET PO SCH (19:50)
[2018-01-15] MEDS: SENNOSIDES/DOCUSATE 8.6-50 MG 1 EACH TABLET PO SCH (21:37)
--- NOTE | 2018-01-15 21:53 | EKG REPORT ---
SEVERITY:- ABNORMAL ECG - SINUS TACHYCARDIA WITH FREQUENT APCs INCOMPLETE LEFT BUNDLE BRANCH BLOCK LVH WITH SECONDARY REPOLARIZATION ABNORMALITY : Confirmed by: Jung Olvera 15-Jan-2018 21:52:28
[2018-01-15] MEDS: MELATONIN 5 MG TABLET PO SCH (22:02)
[2018-01-15] MEDS: AZITHROMYCIN 250 MG TABLET PO SCH (22:02)
[2018-01-15] MEDS: PROMETHAZINE HCL 25 MG TABLET PO PRN (23:27)
[2018-01-16] MEDS: IPRATROPIUM/ALBUTEROL 0.5-2.5 MG/3 ML AMPUL NEB SCH ×6 (00:13→19:41)
[2018-01-16] MEDS: BACLOFEN 10 MG TABLET PO PRN (00:57)
[2018-01-16] MEDS: NITROGLYCERIN 0.4 MG/TAB 25 TAB/BOTTLE SL PRN ×2 (00:58→21:24)
[2018-01-16] MEDS ORDERED: GLUCAGON,HUMAN RECOMB 1 MG INJ IM PRN (01:14)
[2018-01-16] MEDS ORDERED: DEXTROSE 40% GEL 15 GM TUBE X 2 PO PRN (01:14)
[2018-01-16] MEDS ORDERED: DEXTROSE 40% GEL 15 GM TUBE PO PRN (01:14)
[2018-01-16] MEDS ORDERED: DEXTROSE 50%-WATER SYRINGE 25 GM/50 ML DOSE IV PRN (01:14)
[2018-01-16] MEDS ORDERED: DEXTROSE 50%-WATER SYRINGE 12.5 GM/25 ML DOSE IV PRN (01:14)
[2018-01-16] MEDS: METHYLPREDNISOLONE INJ 40 MG/1 ML SDV IV SCH ×2 (01:17→09:41)
[2018-01-16] MEDS: METOCLOPRAMIDE HCL INJ/PF 10 MG/2 ML SDV IV PRN ×2 (01:18→21:20)
[2018-01-16 05:45] LABS: ABSOLUTE LYMPHOCYTES (AUTO) 0.4 10^3/uL (0.5-4.7); ABSOLUTE MONOCYTES (AUTO) 0.3 10^3/uL (0.1-1.4); ABSOLUTE NEUT (AUTO) 4.7 10^3/uL (1.7-8.2); HEMATOCRIT 34.8 % (36.0-47.0); HEMOGLOBIN 11.7 g/dL (12.0-15.5); LYMPHOCYTES % (AUTO) 6.8 % (13-45); MEAN CORPUSCULAR HEMOGLOBIN 27.5 pg (27.0-33.4); MEAN CORPUSCULAR HGB CONC 33.7 g/dL (32.0-36.0); MEAN CORPUSCULAR VOLUME 81 fl (80-97); MONOCYTES % (AUTO) 4.7 % (3-13); PLATELET COUNT 226 10^3/uL (150-450); RED BLOOD COUNT 4.28 10^6/uL (3.72-5.28); RED CELL DISTRIBUTION WIDTH 16.9 % (11.5-14.0); SEGMENTED NEUTROPHILS % (AUTO) 88.5 % (42-78); TOTAL CELLS COUNTED % (AUTO) 100 %; WHITE BLOOD COUNT 5.4 10^3/uL (4.0-10.5)
[2018-01-16 06:06] LABS: ANION GAP 13 (5-19); BLOOD UREA NITROGEN 27 mg/dL (7-20); CARBON DIOXIDE 31 mmol/L (22-30); CHLORIDE 103 mmol/L (98-107); GLUCOSE 168 mg/dL (75-110); POTASSIUM 3.7 mmol/L (3.6-5.0); SODIUM 146.8 mmol/L (137-145)
[2018-01-16] MEDS: OXYCODONE HCL IR 5 MG TABLET PO SCH ×3 (07:03→18:40)
[2018-01-16] MEDS: PREGABALIN 75 MG CAPSULE PO SCH ×3 (07:04→21:23)
[2018-01-16] MEDS: DILTIAZEM HCL 60 MG TABLET PO SCH ×3 (07:05→21:23)
[2018-01-16] MEDS: LANSOPRAZOLE 30 MG TAB.RAP.DR PO SCH (07:06)
[2018-01-16] MEDS: HYDRALAZINE HCL 25 MG TABLET PO SCH ×3 (07:06→21:23)
[2018-01-16] MEDS: ACETYLCYSTEINE 10% NEB 400 MG/4 ML VIAL NEB SCH ×2 (07:44→19:41)
[2018-01-16] MEDS: FUROSEMIDE 40 MG TABLET PO SCH (08:24)
[2018-01-16] MEDS: FAMOTIDINE 20 MG TABLET PO SCH ×2 (09:23→21:23)
[2018-01-16] MEDS: ASCORBIC ACID 500 MG TABLET PO SCH ×2 (09:34→18:40)
[2018-01-16] MEDS: METOPROLOL SUCCINATE 50 MG TAB.SR.24H PO SCH (09:34)
[2018-01-16] MEDS: LORATADINE 10 MG TABLET PO SCH (09:35)
[2018-01-16] MEDS: ASPIRIN 81 MG TABLET, CHEWABLE PO SCH (09:35)
[2018-01-16] MEDS: DULOXETINE HCL 30 MG CAPSULE.DR PO SCH (09:35)
[2018-01-16] MEDS: FERROUS SULFATE 325 MG TABLET PO SCH ×2 (09:35→18:40)
[2018-01-16] MEDS: FLUTICASONE NASAL SPRAY 50 MCG/SPRY 120 SPRAY/16 GM NASL SCH (09:36)
[2018-01-16] MEDS: POTASSIUM CHLORIDE 10 MEQ CAPSULE.ER PO SCH (09:36)
[2018-01-16] MEDS: PROMETHAZINE HCL 25 MG TABLET PO PRN (09:36)
[2018-01-16] MEDS: TAMSULOSIN HCL 0.4 MG CAP.SR.24H PO SCH (09:36)
[2018-01-16] MEDS: BUSPIRONE HCL 10 MG TABLET PO SCH ×2 (09:36→21:23)
[2018-01-16] MEDS: RANOLAZINE 500 MG TAB.SR.12H PO SCH ×2 (09:37→21:23)
[2018-01-16] MEDS: INSULIN DETEMIR 100 UNIT/ML 3 ML PEN SUBCUT SCH (09:37)
[2018-01-16] MEDS: FLUTICASONE/SALMETEROL DISKUS 500-50 MCG/DOSE IH SCH ×2 (09:37→21:23)
[2018-01-16] MEDS: ENOXAPARIN SODIUM INJ 40 MG/0.4 ML DISP.SYRIN SUBCUT SCH (09:38)
[2018-01-16] MEDS: TIOTROPIUM BROMIDE DPI 5 CAP/KIT (18 MCG/CAP) IH SCH (09:38)
[2018-01-16] MEDS: ROFLUMILAST 500 MCG TABLET PO SCH (09:42)
[2018-01-16] MEDS: LIDOCAINE 5% (700 MG) TRANSDERMAL ADH..PATCH TOP SCH (09:42)
[2018-01-16] MEDS: DOCUSATE SODIUM 100 MG CAPSULE PO SCH ×2 (09:44→18:42)
[2018-01-16] MEDS: POLYETHYLENE GLYCOL 3350 POWDER 17 GM/1 PACKET PO SCH (09:44)
--- NOTE | 2018-01-16 11:18 | PDOC PROGRESS REPORT ---
Subjective Progress Note for:: 01/16/18 Subjective:: I seen patient resting in bed. Her shortness of breath is subsiding. Patient reports this her generalized body aching has improved much after she has been started on fentanyl patch. I reviewed her labs there is mild bump in her creatinine from 0.9-1.23. I switched her Solu-Medrol to prednisone 40 mg p.o. daily. If she remains stable she is potential discharge for tomorrow Reason For Visit: COPD EXACERBATION Physical Exam Vital Signs: Temp Pulse Resp BP Pulse Ox 99.0 F 86 20 150/77 H 97 01/16/18 07:32 01/16/18 07:44 01/16/18 07:44 01/16/18 07:32 01/16/18 07:44 Intake & Output 01/15/18 01/16/18 01/17/18 06:59 06:59 06:59 Intake Total 790 266 Output Total 600 400 Balance 190 -134 Weight 92.5 kg 94 kg General appearance: PRESENT: no acute distress Head exam: PRESENT: atraumatic Eye exam: PRESENT: conjunctiva pink Neck exam: ABSENT: carotid bruit, JVD, lymphadenopathy, thyromegaly Respiratory exam: PRESENT: crackles, wheezes Cardiovascular exam: PRESENT: irregular rhythm GI/Abdominal exam: PRESENT: normal bowel sounds, soft. ABSENT: distended, guarding, mass, organolmegaly, rebound, tenderness Extremities exam: PRESENT: +2 edema Neurological exam: PRESENT: alert, awake, oriented to time, oriented to situation Skin exam: PRESENT: other - ecchymotic lesions on both upper and lower extremities Results Laboratory Results: 01/16/18 04:47 01/16/18 04:47 01/15/18 01/16/18 01/16/18 10:30 04:47 04:47 WBC 5.4 RBC 4.28 Hgb 11.7 L Hct 34.8 L MCV 81 MCH 27.5 MCHC 33.7 RDW 16.9 H Plt Count 226 Seg Neutrophils % 88.5 H Lymphocytes % 6.8 L Monocytes % 4.7 Eosinophils % 0.0 Basophils % 0.0 Absolute Neutrophils 4.7 Absolute Lymphocytes 0.4 L Absolute Monocytes 0.3 Absolute Eosinophils 0.0 Absolute Basophils 0.0 Sodium 146.8 H Potassium 3.7 Chloride 103 Carbon Dioxide 31 H Anion Gap 13 BUN 27 H Creatinine 1.27 H Est GFR ( Amer) 50 L Est GFR (Non-Af Amer) 41 L Glucose 168 H Calcium 10.0 Urine Color YELLOW Urine Appearance SLIGHTLY-CLOUDY Urine pH 6.0 Ur Specific [place] 1.015 Urine Protein NEGATIVE Urine Glucose (UA) NEGATIVE Urine Ketones TRACE H Urine Blood NEGATIVE Urine Nitrite NEGATIVE Ur Leukocyte Esterase TRACE H Urine WBC (Auto) 5 Urine RBC (Auto) 23 01/14/18 01/15/18 05:57 11:03 Troponin I 0.015 NT-Pro-B Natriuret Pep 416 Impressions: Chest X-Ray 01/13/18 16:12 IMPRESSION: No significant interval change. Cardiomegaly. Visualized lung mead are clear. Other findings as noted above Assessment & Plan - Diagnosis (1) COPD with exacerbation Is this a current diagnosis for this admission?: Yes (2) Chronic a-fib Is this a current diagnosis for this admission?: Yes (3) Type 2 diabetes mellitus Is this a current diagnosis for this admission?: Yes (4) Coronary artery disease Qualifiers: Coronary Disease-Associated Artery/Lesion type: [place] artery Is this a current diagnosis for this admission?: Yes (5) Hypothyroidism (acquired) Is this a current diagnosis for this admission?: Yes (6) Obstructive sleep apnea Is this a current diagnosis for this admission?: Yes (7) Hypertension Qualifiers: Hypertension type: essential hypertension Qualified Code(s): I10 - Essential (primary) hypertension Is this a current diagnosis for this admission?: Yes (8) Hyperlipidemia Qualifiers: Hyperlipidemia type: unspecified Qualified Code(s): E78.5 - Hyperlipidemia , unspecified Is this a current diagnosis for this admission?: Yes
[2018-01-16] MEDS: INSULIN LISPRO 100 UNIT/ML 3 ML VIAL SUBCUT PRN (11:22)
[2018-01-16] MEDS: PREDNISONE 20 MG TABLET PO SCH (12:24)
[2018-01-16] MEDS ORDERED: PROMETHAZINE HCL INJ 25 MG/1 ML VIAL ONE (14:45)
[2018-01-16] MEDS: PROMETHAZINE HCL INJ 25 MG/1 ML VIAL IV PRN (14:45)
[2018-01-16] MEDS: FUROSEMIDE 20 MG TABLET PO SCH (18:41)
[2018-01-16] MEDS: SENNOSIDES/DOCUSATE 8.6-50 MG 1 EACH TABLET PO SCH (20:57)
[2018-01-16] MEDS: MELATONIN 5 MG TABLET PO SCH (21:23)
[2018-01-16] MEDS: AZITHROMYCIN 250 MG TABLET PO SCH (21:23)
[2018-01-16 22:37] LABS: ARTERIAL BLOOD BASE EXCESS 8.1 mmol/L; ARTERIAL BLOOD FIO2 2L; ARTERIAL BLOOD H2CO3 1.28 mmol/L (1.05-1.35); ARTERIAL BLOOD HCO3 32.2 mmol/L (20-26); ARTERIAL BLOOD O2 SATURATION 95.8 % (94-98); ARTERIAL BLOOD PCO2 42.5 mmHg (35-45); ARTERIAL BLOOD PO2 73.5 mmHg (80-100); ARTERIAL BLOOD TOTAL CO2 33.5 mmol/L (21-25)
[2018-01-17] MEDS: PROMETHAZINE HCL INJ 25 MG/1 ML VIAL IV PRN ×3 (00:02→21:45)
[2018-01-17] MEDS: OXYCODONE HCL IR 5 MG TABLET PO SCH ×4 (00:02→18:06)
[2018-01-17] MEDS: IPRATROPIUM/ALBUTEROL 0.5-2.5 MG/3 ML AMPUL NEB SCH ×6 (00:03→19:38)
[2018-01-17] MEDS ORDERED: DILTIAZEM HCL INJ 25 MG/5 ML VIAL IV ONE ×3 (00:30→05:15)
[2018-01-17 03:15] LABS: HEMOGLOBIN 11.7 g/dL (12.0-15.5); MEAN CORPUSCULAR HEMOGLOBIN 27.4 pg (27.0-33.4); MEAN CORPUSCULAR HGB CONC 33.4 g/dL (32.0-36.0); MEAN CORPUSCULAR VOLUME 82 fl (80-97); PLATELET COUNT 259 10^3/uL (150-450); RED BLOOD COUNT 4.26 10^6/uL (3.72-5.28)
[2018-01-17 03:35] LABS: WHITE BLOOD COUNT 15.5 10^3/uL (4.0-10.5)
[2018-01-17 03:46] LABS: CREATINE KINASE MB 1.31 ng/mL (<4.55); TROPONIN I 0.069 ng/mL
[2018-01-17] MEDS ORDERED: DILTIAZEM HCL INJ 25 MG/5 ML VIAL ONE (04:55)
[2018-01-17] MEDS: HYDRALAZINE HCL 25 MG TABLET PO SCH ×3 (05:04→21:44)
[2018-01-17] MEDS: DILTIAZEM HCL 60 MG TABLET PO SCH ×3 (05:04→21:45)
[2018-01-17] MEDS: LANSOPRAZOLE 30 MG TAB.RAP.DR PO SCH (05:04)
[2018-01-17] MEDS ORDERED: LABETALOL HCL INJ 20 MG/4 ML DISP.SYRIN IV PRN (05:09)
[2018-01-17] MEDS ORDERED: HYDRALAZINE HCL INJ/PF 20 MG/1 ML SDV IV PRN (05:11)
[2018-01-17] MEDS: PREGABALIN 75 MG CAPSULE PO SCH ×3 (05:23→21:44)
[2018-01-17] MEDS: ACETYLCYSTEINE 10% NEB 400 MG/4 ML VIAL NEB SCH ×2 (07:41→19:38)
[2018-01-17] MEDS: FUROSEMIDE 40 MG TABLET PO SCH (08:28)
[2018-01-17] MEDS: DOCUSATE SODIUM 100 MG CAPSULE PO SCH ×2 (10:00→17:50)
[2018-01-17] MEDS: POLYETHYLENE GLYCOL 3350 POWDER 17 GM/1 PACKET PO SCH (10:00)
[2018-01-17] MEDS: INSULIN DETEMIR 100 UNIT/ML 3 ML PEN SUBCUT SCH (10:10)
[2018-01-17] MEDS: TIOTROPIUM BROMIDE DPI 5 CAP/KIT (18 MCG/CAP) IH SCH (10:11)
[2018-01-17] MEDS: FLUTICASONE/SALMETEROL DISKUS 500-50 MCG/DOSE IH SCH ×2 (10:11→21:45)
[2018-01-17] MEDS: ENOXAPARIN SODIUM INJ 40 MG/0.4 ML DISP.SYRIN SUBCUT SCH (10:11)
[2018-01-17] MEDS: ASPIRIN 81 MG TABLET, CHEWABLE PO SCH (10:15)
[2018-01-17] MEDS: FAMOTIDINE 20 MG TABLET PO SCH ×2 (10:15→21:45)
[2018-01-17] MEDS: TAMSULOSIN HCL 0.4 MG CAP.SR.24H PO SCH (10:15)
[2018-01-17] MEDS: RANOLAZINE 500 MG TAB.SR.12H PO SCH ×2 (10:15→21:45)
[2018-01-17] MEDS: FERROUS SULFATE 325 MG TABLET PO SCH ×2 (10:15→17:50)
[2018-01-17] MEDS: METOPROLOL SUCCINATE 50 MG TAB.SR.24H PO SCH (10:16)
[2018-01-17] MEDS: BUSPIRONE HCL 10 MG TABLET PO SCH ×2 (10:17→21:44)
[2018-01-17] MEDS: ASCORBIC ACID 500 MG TABLET PO SCH ×2 (10:17→17:50)
[2018-01-17] MEDS: LORATADINE 10 MG TABLET PO SCH (10:17)
[2018-01-17] MEDS: ROFLUMILAST 500 MCG TABLET PO SCH (10:17)
[2018-01-17] MEDS: LIDOCAINE 5% (700 MG) TRANSDERMAL ADH..PATCH TOP SCH (10:18)
[2018-01-17] MEDS: POTASSIUM CHLORIDE 10 MEQ CAPSULE.ER PO SCH (10:18)
[2018-01-17] MEDS: DULOXETINE HCL 30 MG CAPSULE.DR PO SCH (10:18)
[2018-01-17] MEDS: FLUTICASONE NASAL SPRAY 50 MCG/SPRY 120 SPRAY/16 GM NASL SCH (10:19)
[2018-01-17 10:48] LABS: CREATINE KINASE MB 0.9 ng/mL (<4.55); TROPONIN I 0.057 ng/mL
[2018-01-17] MEDS: METOCLOPRAMIDE HCL INJ/PF 10 MG/2 ML SDV IV PRN (11:55)
[2018-01-17] MEDS ORDERED: METRONIDAZOLE 500 MG TABLET PO ONE (12:00)
[2018-01-17] MEDS: VANCOMYCIN HCL INJ 500 MG VIAL PO SCH ×2 (12:37→18:05)
[2018-01-17] MEDS: PREDNISONE 20 MG TABLET PO SCH (12:37)
[2018-01-17] MEDS ORDERED: PROCHLORPERAZINE EDISYLATE INJ 10 MG/2 ML VIAL IM ONE (14:00)
--- NOTE | 2018-01-17 14:12 | PDOC PROGRESS REPORT ---
Subjective Progress Note for:: 01/17/18 Subjective:: This is a 72 years old male patient retirement resident brought with chief complaint of shortness of breath and admitted for COPD exacerbation. Shortness of breath is relatively subsided but the patient complains of nausea and vomiting. Last night associated an episode of A. fib with RVR which subsided with continued treatment her stool test positive for C. difficile colitis. Patient was given Reglan and Compazine for her nausea and vomiting. Reason For Visit: COPD EXACERBATION Physical Exam Vital Signs: Temp Pulse Resp BP Pulse Ox 98.3 F 78 20 169/75 H 96 01/17/18 12:01 01/17/18 12:01 01/17/18 12:01 01/17/18 12:01 01/17/18 12:01 Intake & Output 01/16/18 01/17/18 01/18/18 06:59 06:59 06:59 Intake Total 266 122 Output Total 400 1050 Balance -134 -928 Weight 94 kg 89 kg General appearance: PRESENT: mild distress Head exam: PRESENT: atraumatic Eye exam: PRESENT: conjunctiva pink Mouth exam: PRESENT: dry mucosa Respiratory exam: PRESENT: clear to auscultation elia. ABSENT: rales, rhonchi, wheezes Cardiovascular exam: PRESENT: irregular rhythm Results Laboratory Results: 01/17/18 03:03 01/16/18 04:47 01/16/18 01/17/18 01/17/18 22:15 03:03 08:50 WBC 15.5 H D RBC 4.26 Hgb 11.7 L Hct 35.0 L MCV 82 MCH 27.4 MCHC 33.4 RDW 17.0 H Plt Count 259 Carbonic Acid 1.28 HCO3/H2CO3 Ratio 25:1 ABG pH 7.50 H ABG pCO2 42.5 ABG pO2 73.5 L ABG HCO3 32.2 H ABG O2 Saturation 95.8 ABG Base Excess 8.1 FiO2 2L Stool Occult Blood NEGATIVE 01/14/18 01/15/18 01/17/18 05:57 11:03 03:03 Creatine Kinase 32 CK-MB (CK-2) Troponin I 0.015 NT-Pro-B Natriuret Pep 416 01/17/18 01/17/18 01/17/18 03:03 09:19 09:19 Creatine Kinase 25 L CK-MB (CK-2) 1.31 0.90 Troponin I 0.069 0.057 NT-Pro-B Natriuret Pep Impressions: Chest X-Ray 01/13/18 16:12 IMPRESSION: No significant interval change. Cardiomegaly. Visualized lung mead are clear. Other findings as noted above Assessment & Plan - Diagnosis (1) COPD with exacerbation Is this a current diagnosis for this admission?: Yes Plan: Stable (2) Chronic a-fib Is this a current diagnosis for this admission?: Yes Plan: Last night patient had an episode of A. fib with RVR treated with Cardizem by on -call physician. (3) Type 2 diabetes mellitus Is this a current diagnosis for this admission?: Yes Plan: Continue sliding scale, Accu-Chek before meals at bedtime (4) Coronary artery disease Qualifiers: Coronary Disease-Associated Artery/Lesion type: [place] artery Is this a current diagnosis for this admission?: Yes (5) Hypothyroidism (acquired) Is this a current diagnosis for this admission?: Yes Plan: Continue her Synthroid (6) Obstructive sleep apnea Is this a current diagnosis for this admission?: Yes Plan: Patient has been started on CPAP. (7) Hypertension Qualifiers: Hypertension type: essential hypertension Qualified Code(s): I10 - Essential (primary) hypertension Is this a current diagnosis for this admission?: Yes Plan: Continue her home medications. (8) Hyperlipidemia Qualifiers: Hyperlipidemia type: unspecified Qualified Code(s): E78.5 - Hyperlipidemia , unspecified Is this a current diagnosis for this admission?: Yes Plan: Continue her home medications. (9) Clostridium difficile colitis Is this a current diagnosis for this admission?: Yes Plan: Patient has history of recurrent C. difficile colitis. She is started on p.o. and vancomycin and Flagyl. - Time Time Spent with patient: 25-34 minutes
[2018-01-17 17:02] LABS: CREATINE KINASE MB 2.16 ng/mL (<4.55); TROPONIN I 0.059 ng/mL
[2018-01-17] MEDS: FUROSEMIDE 20 MG TABLET PO SCH (18:06)
--- NOTE | 2018-01-17 20:29 | Progress Note ---
Provider Note Provider Note: Patient's telemetry strips were reviewed. She is noted to have mostly multifocal atrial tachycardia rather than atrial fibrillation. Will obtain a 2D echo and repeat EKG in the morning to assess this further.
[2018-01-17] MEDS: METRONIDAZOLE 500 MG TABLET PO SCH (21:44)
[2018-01-17] MEDS: AZITHROMYCIN 250 MG TABLET PO SCH (21:44)
[2018-01-17] MEDS: MELATONIN 5 MG TABLET PO SCH (21:45)
[2018-01-17] MEDS: SENNOSIDES/DOCUSATE 8.6-50 MG 1 EACH TABLET PO SCH (21:46)
--- NOTE | 2018-01-17 22:08 | EKG REPORT ---
SEVERITY:- ABNORMAL ECG - MAT LVH WITH IVCD, LAD AND SECONDARY REPOL ABNRM : Confirmed by: Jung Olvera 17-Jan-2018 22:08:25
[2018-01-18] MEDS: VANCOMYCIN HCL INJ 500 MG VIAL PO SCH (00:03)
[2018-01-18] MEDS: OXYCODONE HCL IR 5 MG TABLET PO SCH (00:03)
[2018-01-18] MEDS: IPRATROPIUM/ALBUTEROL 0.5-2.5 MG/3 ML AMPUL NEB SCH ×7 (00:46→23:47)
[2018-01-18 00:56] LABS: APPEARANCE,URINE CLOUDY; BILIRUBIN,URINE NEGATIVE (NEGATIVE); COLOR,URINE AMBER; GLUCOSE, URINE NEGATIVE (NEGATIVE); KETONES,URINE NEGATIVE (NEGATIVE); LEUKOCYTE ESTERASE,URINE LARGE (NEGATIVE); NITRITE,URINE NEGATIVE (NEGATIVE); PROTEIN,URINE 30 mg/dL (NEGATIVE); URINE SPECIFIC GRAVITY 1.016; UROBILINOGEN,URINE NEGATIVE mg/dL (<2.0)
[2018-01-18] MEDS ORDERED: MORPHINE SULFATE 10 MG/ML INJ IV PRN (01:49)
[2018-01-18] MEDS: PROMETHAZINE HCL INJ 25 MG/1 ML VIAL IV PRN (01:59)
--- NOTE | 2018-01-18 03:33 | RADIOLOGY REPORT (SQ) ---
CT abdomen and pelvis without contrast on 01/18/2018 at 2:39 AM CLINICAL INDICATION: Increasing generalized abdominal pain, nausea and vomiting, increasing abdominal distention TECHNIQUE: Multiple axial images are obtained throughout the abdomen and pelvis without the administration of contrast. This exam was performed according to our departmental dose-optimization program, which includes automated exposure control, adjustment of the mA and/or kV according to patient size and/or use of iterative reconstruction technique. Total DLP is 964.58 mGy*cm. COMPARISON: 12/19/2017 FINDINGS: Abdomen: There is mild bibasilar atelectasis and/or scarring. There is extensive gaseous distention of the stomach and proximal duodenum. There is some high density along the inferior aspect of the greater curvature anteriorly and extending along the left aspect of the greater curvature seen on images 42 through 58. Some of this has irregular density associated with this and this has an appearance suggesting hemorrhage along the outside of the stomach. This was not present on the previous exam. This could represent a small hematoma/hemorrhage along the omentum. Please correlate with any recent trauma. Consider NG tube placement to decompress the stomach and short-term follow-up CT with contrast. Left renal cyst is noted. The patient is status post cholecystectomy. The pancreas is fatty replaced. The unenhanced solid abdominal organs are otherwise unremarkable. An IVC filter is noted in place. Mild vascular calcifications are noted. There is no abdominal adenopathy. There is no free fluid or free air within the abdomen. The abdominal portion of the GI tract is otherwise unremarkable. Pelvis: Barton catheter is noted in the bladder. There is diverticulosis. The patient is status post hysterectomy. The patient is status post a left total hip arthroplasty. 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 Pelvic portion of the GI tract is otherwise unremarkable. Degenerative changes are noted in the spine. IMPRESSION: 1. Area of irregular high density along the inferior anterior stomach has an appearance suggestive of cyst hemorrhage possibly in the omentum. Please correlate with any recent trauma. Consider NG tube placement and short-term follow-up exam with IV contrast. Tumor is felt less likely as this was not present on the recent prior exam. 2. Diverticulosis.
--- NOTE | 2018-01-18 03:39 | RADIOLOGY REPORT (SQ) ---
EXAM DESCRIPTION: XR CHEST 1 VIEW COMPLETED DATE/TME: 01/18/2018 00:00 CLINICAL HISTORY: 72 years, Female, increased resp rate and audible rhonci COMPARISON: None. NUMBER OF VIEWS: One TECHNIQUE: AP view of the chest LIMITATIONS: None. FINDINGS: There is mild pulmonary vascular congestion. The heart is enlarged. There is no pneumothorax or pleural effusion. Absence of the proximal right humerus is noted. There is flattening and sclerosis of the proximal left humerus. IMPRESSION: Mild pulmonary vascular congestion 2010 [facility] [employer]- All Rights Reserved
[2018-01-18] MEDS ORDERED: PHARMACY COMMUNICATION ORDER MC NR (04:45)
[2018-01-18] MEDS ORDERED: BUTALB/ACETAMINOPHEN/CAFFEINE 1 TAB EACH NG PRN (05:30)
[2018-01-18 06:31] LABS: ABSOLUTE LYMPHOCYTES (AUTO) 0.9 10^3/uL (0.5-4.7); ABSOLUTE MONOCYTES (AUTO) 1.2 10^3/uL (0.1-1.4); ABSOLUTE NEUT (AUTO) 14.7 10^3/uL (1.7-8.2); BASOPHILS % (AUTO) 0.1 % (0-2); HEMATOCRIT 33.3 % (36.0-47.0); HEMOGLOBIN 11.2 g/dL (12.0-15.5); LYMPHOCYTES % (AUTO) 5.1 % (13-45); MEAN CORPUSCULAR HEMOGLOBIN 28.2 pg (27.0-33.4); MEAN CORPUSCULAR HGB CONC 33.7 g/dL (32.0-36.0); MEAN CORPUSCULAR VOLUME 84 fl (80-97); MONOCYTES % (AUTO) 7.3 % (3-13); PLATELET COUNT 221 10^3/uL (150-450); RED BLOOD COUNT 3.98 10^6/uL (3.72-5.28); RED CELL DISTRIBUTION WIDTH 16.7 % (11.5-14.0); SEGMENTED NEUTROPHILS % (AUTO) 87.5 % (42-78); TOTAL CELLS COUNTED % (AUTO) 100 %; WHITE BLOOD COUNT 16.9 10^3/uL (4.0-10.5)
[2018-01-18] MEDS: METRONIDAZOLE 500 MG TABLET PO SCH (06:33)
[2018-01-18] MEDS: OXYCODONE HCL IR 5 MG TABLET NG SCH ×4 (06:33→23:35)
[2018-01-18] MEDS: LANSOPRAZOLE 30 MG TAB.RAP.DR PO SCH (06:34)
[2018-01-18] MEDS: DILTIAZEM HCL 60 MG TABLET NG SCH ×3 (06:34→22:20)
[2018-01-18] MEDS: HYDRALAZINE HCL 25 MG TABLET PO SCH ×3 (06:34→22:20)
[2018-01-18] MEDS: VANCOMYCIN HCL INJ 500 MG VIAL NG SCH ×4 (06:35→23:33)
[2018-01-18] MEDS: PREGABALIN 75 MG CAPSULE PO SCH ×3 (06:35→22:20)
[2018-01-18 06:46] LABS: ANION GAP 12 (5-19); BLOOD UREA NITROGEN 24 mg/dL (7-20); CARBON DIOXIDE 31 mmol/L (22-30); CHLORIDE 100 mmol/L (98-107); GLUCOSE 104 mg/dL (75-110); POTASSIUM 3.6 mmol/L (3.6-5.0); SODIUM 143.3 mmol/L (137-145)
--- NOTE | 2018-01-18 07:23 | RADIOLOGY REPORT (SQ) ---
Abdomen single view on 01/18/2018 at 6:37 AM CLINICAL INDICATION: NG tube placement COMPARISON: CT from 01/18/2018 FINDINGS: NG tube tip extends into the body of the stomach. There remains gaseous distention of the stomach. An IVC filter is noted in place. Degenerative changes are noted in the spine. IMPRESSION: NG tube in good position in the upper stomach.
[2018-01-18] MEDS: ACETYLCYSTEINE 10% NEB 400 MG/4 ML VIAL NEB SCH ×2 (07:57→20:09)
[2018-01-18] MEDS: FAMOTIDINE 20 MG TABLET NG SCH ×2 (09:01→22:20)
[2018-01-18] MEDS: PANTOPRAZOLE SODIUM 40 MG VIAL IV SCH ×2 (09:02→22:20)
[2018-01-18] MEDS: LIDOCAINE 5% (700 MG) TRANSDERMAL ADH..PATCH TOP SCH (09:05)
[2018-01-18] MEDS: METOPROLOL SUCCINATE 50 MG TAB.SR.24H PO SCH (09:06)
[2018-01-18] MEDS: ENOXAPARIN SODIUM INJ 40 MG/0.4 ML DISP.SYRIN SUBCUT SCH (09:08)
[2018-01-18] MEDS: FENTANYL 25 MCG/HR PATCH.TD72 TD SCH (09:14)
[2018-01-18] MEDS: FLUTICASONE/SALMETEROL DISKUS 500-50 MCG/DOSE IH SCH ×2 (09:19→22:21)
[2018-01-18] MEDS: TIOTROPIUM BROMIDE DPI 5 CAP/KIT (18 MCG/CAP) IH SCH (09:19)
[2018-01-18] MEDS: FLUTICASONE NASAL SPRAY 50 MCG/SPRY 120 SPRAY/16 GM NASL SCH (09:20)
[2018-01-18] MEDS: DOCUSATE SODIUM 100 MG CAPSULE PO SCH ×2 (09:21→18:16)
[2018-01-18] MEDS: FERROUS SULFATE 325 MG TABLET PO SCH ×2 (09:21→18:09)
--- NOTE | 2018-01-18 09:42 | EKG REPORT ---
SEVERITY:- ABNORMAL ECG - SINUS WITH FREQUENT APCs LVH WITH IVCD, LAD AND SECONDARY REPOL ABNRM : Confirmed by: Jung Olvera 18-Jan-2018 09:41:38
[2018-01-18] MEDS: FUROSEMIDE 40 MG TABLET NG SCH (11:35)
[2018-01-18] MEDS: LORATADINE 10 MG TABLET PO SCH (11:35)
[2018-01-18] MEDS: BUSPIRONE HCL 10 MG TABLET NG SCH ×2 (11:36→22:20)
[2018-01-18] MEDS: ASCORBIC ACID 500 MG TABLET NG SCH ×2 (11:37→18:09)
[2018-01-18] MEDS: DULOXETINE HCL 30 MG CAPSULE.DR PO SCH (11:39)
[2018-01-18] MEDS: POTASSIUM CHLORIDE 10 MEQ CAPSULE.ER PO SCH (11:39)
[2018-01-18] MEDS: RANOLAZINE 500 MG TAB.SR.12H PO SCH ×2 (11:40→22:20)
[2018-01-18] MEDS: ROFLUMILAST 500 MCG TABLET PO SCH (11:41)
[2018-01-18] MEDS: TAMSULOSIN HCL 0.4 MG CAP.SR.24H PO SCH (11:42)
[2018-01-18] MEDS: ASPIRIN 81 MG TABLET, CHEWABLE NG SCH (11:51)
[2018-01-18] MEDS: PREDNISONE 20 MG TABLET PO SCH (12:05)
[2018-01-18] MEDS: POLYETHYLENE GLYCOL 3350 POWDER 17 GM/1 PACKET PO SCH (12:06)
[2018-01-18] MEDS: RINGERS SOLUTION,LACTATED 1,000 ML IV PRN (12:48)
[2018-01-18] MEDS: METRONIDAZOLE 500 MG/NS RTU 500 MG/100 ML RTUPB IV SCH ×3 (12:48→23:33)
[2018-01-18] MEDS: INSULIN DETEMIR 100 UNIT/ML 3 ML PEN SUBCUT SCH (12:51)
--- NOTE | 2018-01-18 13:03 | XCELERA REPORT ---
[address] [address] Transthoracic Echocardiogram Report Name: PORSHA WALDRON Age: 72 yrs Gender: Female : 1945 Patient Status: Inpatient Patient Location: [address] [place], [place] [id number] Study Date: 01/17/2018 04:37 PM Height: 63 in Weight: 206 lb BSA: 2.0 m2 Procedure: A complete two-dimensional transthoracic echocardiogram was performed (2D, M-mode, spectral and color flow Doppler). The study was technically difficult with many images being suboptimal in quality. Reason For Study: afib with RVR Ordering Physician: RAYMOND BENTLEY Performed By: Zora Gan Interpretation Summary The left ventricular ejection fraction is preserved. There is borderline concentric left ventricular hypertrophy. The left ventricle is grossly normal size. Doppler measurements suggest pseudonormalized left ventricular relaxation, which is associated with grade II/IV or mild to moderate diastolic dysfunction Wall motion cannot be accurately commented on, but no definite regional wall motion abnormalities noted. The right ventricular systolic function is normal. The right ventricle appears to be hypertrophied The right atrium is normal. Borderline left atrial enlargement. There is no mitral regurgitation noted. There is no mitral valve stenosis. There is a trace amount of aortic regurgitation There is no aortic valve stenosis There is a trace or physiologic amount of tricuspid regurgitation Tricuspid regurgitation jet envelope not well defined to measure RV systolic pressure accurately. The aortic root is not well visualized. The inferior vena cava appeared normal and decreased > 50% with respiration (RAP 5-10 mmHg) There is no pericardial effusion. MMode/2D Measurements & Calculations RVDd: 2.7 cm LVIDd: 5.4 cm FS: 37.1 % Ao root diam: 2.7 cm IVSd: 1.0 cm LVIDs: 3.4 cm EDV(Teich): 140.6 ml LVPWd: 1.0 cm ESV(Teich): 47.0 ml Ao root area: 5.9 cm2 EF(Teich): 66.6 % Doppler Measurements & Calculations MV E max master: MV dec slope: Ao V2 max: LV V1 max P.7 cm/sec 186.5 cm/sec 6.9 mmHg MV A max master: 338.6 cm/sec2 Ao max PG: LV V1 max: 107.4 cm/sec MV dec time: 13.9 mmHg 131.0 cm/sec MV E/A: 0.96 0.30 sec PA V2 max: TR max master: 172.0 cm/sec 260.9 cm/sec PA max PG: TR max P.2 mmHg 11.8 mmHg Left Ventricle The left ventricle is grossly normal size. There is borderline concentric left ventricular hypertrophy. The left ventricular ejection fraction is preserved. Doppler measurements suggest pseudonormalized left ventricular relaxation, which is associated with grade II/IV or mild to moderate diastolic dysfunction. Wall motion cannot be accurately commented on, but no definite regional wall motion abnormalities noted. Right Ventricle The right ventricle is grossly normal size. The right ventricle appears to be hypertrophied. The right ventricular systolic function is normal. Atria The right atrium is normal. Borderline left atrial enlargement. Interarterial septum not well visualized and not well dopplered. Cannot comment on ASD/PFO presence. Mitral Valve The mitral valve is grossly normal. There is no mitral valve stenosis. There is no mitral regurgitation noted. Aortic Valve The aortic valve is not well visualized secondary to technical limitations. The aortic valve opens well. There is no aortic valve stenosis. There is a trace amount of aortic regurgitation. Tricuspid Valve The tricuspid valve is not well visualized secondary to technical limitations. There is no tricuspid stenosis. There is a trace or physiologic amount of tricuspid regurgitation. Tricuspid regurgitation jet envelope not well defined to measure RV systolic pressure accurately. Pulmonic Valve The pulmonic valve is not well visualized. Great Vessels The aortic root is not well visualized. The inferior vena cava appeared normal and decreased > 50% with respiration (RAP 5-10 mmHg). Effusions There is no pericardial effusion. : RAYMOND BENTLEY Shyamal
--- NOTE | 2018-01-18 16:23 | PDOC PROGRESS REPORT ---
Subjective Progress Note for:: 01/18/18 Subjective:: I seen patient resting in bed. She is awake alert and oriented. Yesterday night she had episodes of vomiting and CT scan of the abdomen and pelvis was requested and is reported as area of irregular high density along the inferior anterior stomach has an appearance suggestive of cystic hemorrhage possibly in the omentum. As recommended by radiologist NG tube was inserted. Currently patient kept n.p.o. and she is getting her medications from her NG tube. Surgery consulted. Reason For Visit: COPD EXACERBATION Physical Exam Vital Signs: Temp Pulse Resp BP Pulse Ox 98.5 F 92 20 145/69 H 94 01/18/18 12:33 01/18/18 12:33 01/18/18 12:33 01/18/18 12:33 01/18/18 12:33 Intake & Output 01/17/18 01/18/18 01/19/18 06:59 06:59 06:59 Intake Total 122 445 Output Total 1050 1050 Balance -928 -605 Weight 89 kg 88.6 kg Results Laboratory Results: 01/18/18 05:02 01/18/18 05:02 01/18/18 01/18/18 01/18/18 00:30 05:02 05:02 WBC 16.9 H RBC 3.98 Hgb 11.2 L Hct 33.3 L MCV 84 MCH 28.2 MCHC 33.7 RDW 16.7 H Plt Count 221 Seg Neutrophils % 87.5 H Lymphocytes % 5.1 L Monocytes % 7.3 Eosinophils % 0.0 Basophils % 0.1 Absolute Neutrophils 14.7 H Absolute Lymphocytes 0.9 Absolute Monocytes 1.2 Absolute Eosinophils 0.0 Absolute Basophils 0.0 Sodium 143.3 Potassium 3.6 Chloride 100 Carbon Dioxide 31 H Anion Gap 12 BUN 24 H Creatinine 1.03 Est GFR ( Amer) > 60 Est GFR (Non-Af Amer) 52 L Glucose 104 Calcium 9.0 Urine Color [place] Urine Appearance CLOUDY Urine pH 6.0 Ur Specific Miles 1.016 Urine Protein 30 H Urine Glucose (UA) NEGATIVE Urine Ketones NEGATIVE Urine Blood NEGATIVE Urine Nitrite NEGATIVE Ur Leukocyte Esterase LARGE H Urine WBC (Auto) >182 Urine RBC (Auto) 34 01/14/18 01/15/18 01/17/18 05:57 11:03 03:03 Creatine Kinase 32 CK-MB (CK-2) Troponin I 0.015 NT-Pro-B Natriuret Pep 416 01/17/18 01/17/18 01/17/18 03:03 09:19 09:19 Creatine Kinase 25 L CK-MB (CK-2) 1.31 0.90 Troponin I 0.069 0.057 NT-Pro-B Natriuret Pep 01/17/18 01/17/18 16:07 16:07 Creatine Kinase 73 CK-MB (CK-2) 2.16 Troponin I 0.059 NT-Pro-B Natriuret Pep Impressions: Abdomen/Pelvis CT 01/18/18 00:00 IMPRESSION: 1. Area of irregular high density along the inferior anterior stomach has an appearance suggestive of cyst hemorrhage possibly in the omentum. Please correlate with any recent trauma. Consider NG tube placement and short-term follow-up exam with IV contrast. Tumor is felt less likely as this was not present on the recent prior exam. 2. Diverticulosis. Chest X-Ray 01/18/18 00:00 IMPRESSION: Mild pulmonary vascular congestion 2010 [employer]- All Rights Reserved KUB X-Ray 01/18/18 04:32 IMPRESSION: NG tube in good position in the upper stomach. Assessment & Plan - Diagnosis (1) Clostridium difficile colitis Is this a current diagnosis for this admission?: Yes Plan: Since patient is not able to tolerate p.o. Flagyl I switched to IV. Her white cell count is slightly increased. Since patient has history of recurrent C. difficile colitis her response to Flagyl and vancomycin p.o. I could be slow so in this case I switched her to Dificid (2) Acute exacerbation of chronic obstructive pulmonary disease (COPD) Is this a current diagnosis for this admission?: Yes Plan: Patient has been on Solu-Medrol and Zithromax. (3) Chronic a-fib Is this a current diagnosis for this admission?: Yes Plan: Last night patient had an episode of A. fib with RVR treated with Cardizem by on -call physician. (4) Type 2 diabetes mellitus Is this a current diagnosis for this admission?: Yes Plan: Continue sliding scale, Accu-Chek before meals at bedtime (5) Coronary artery disease Qualifiers: Coronary Disease-Associated Artery/Lesion type: [place] artery Is this a current diagnosis for this admission?: Yes Plan: Patient does not have chest pain. We will continue her home medications. (6) Hypothyroidism (acquired) Is this a current diagnosis for this admission?: Yes Plan: Continue her Synthroid (7) Obstructive sleep apnea Is this a current diagnosis for this admission?: Yes Plan: Patient has been started on CPAP. (8) Hypertension Qualifiers: Hypertension type: essential hypertension Qualified Code(s): I10 - Essential (primary) hypertension Is this a current diagnosis for this admission?: Yes Plan: Continue her home medications. (9) Hyperlipidemia Qualifiers: Hyperlipidemia type: unspecified Qualified Code(s): E78.5 - Hyperlipidemia , unspecified Is this a current diagnosis for this admission?: Yes Plan: Continue her home medications.
--- NOTE | 2018-01-18 16:34 | PDOC CONSULTATION ---
Consultation Consult Date: 01/17/18 Attending physician:: RAFA MCCAULEY Consult reason:: Cardiomegaly and atrial fibrillation History of Present Illness Admission Date/PCP: 01/13/18 18:41 GILBERT CASTANEDA DO Patient complains of: Shortness of breath History of Present Illness: PORSHA WALDRON is a 72 year old female with extensive medical history including COPD, CAD, history of DVT, peripheral vascular disease, ROSETTA, CHF, hypothyroidism, hyperlipidemia, hypertension, stage III CKD, A. fib and depression, brought with chief complaint of shortness of breath of several day duration. Patient is somewhat somnolent and a complicated history from her. I got very brief history from ER attending note. Her blood works are unremarkable and her chest x-ray also reported as no acute pulmonary pathology except for cardiomegaly. They are attending considered the possibility of pneumonia but according my evaluation patient does not have pneumonia as she has COPD exacerbation. Review of system and further detailed history is unobtainable. This history obtained by the hospitalist was reviewed. Subsequently patient got admitted. Overnight she was noted to have irregular heart rate as well as tachycardia. Patient was felt to have atrial fibrillation with rapid ventricular response. I was therefore consulted to evaluate patient. Patient denies any chest pain. She is denying any significant shortness of breath. She was admitted with shortness of breath but this has improved. Patient denied any problems with bleeding. There is no definite prior history of strokes or mini strokes. Patient is not a good historian. Past Medical History Cardiac Medical History: Reports: Atrial Fibrillation, Congestive Heart Failure - Diastolic dysfunction, Myocardial Infarction, Hypertension - essential, Pulmonary Embolism, Heart Murmur Denies: Coronary Artery Disease, DVT, Hyperlipidema, Peripheral Vascular Disease Pulmonary Medical History: Reports: Asthma, Bronchitis, Chronic Obstructive Pulmonary Disease (COPD), Pneumonia - Recurrent MRSA pneumonia., Sleep Apnea - Uses C Pap Denies: Tuberculosis Neurological Medical History: Denies: Seizures Endocrine Medical History: Reports: Diabetes Mellitus Type 2 Denies: Diabetes Mellitus Type 1, Hyperthyroidism, Hypothyroidism GI Medical History: Reports: Gastroesophageal Reflux Disease, Hiatal Hernia Denies: Cirrhosis, Hepatitis Musculoskeltal Medical History: Reports: Arthritis, Fibromyalgia, Gout Skin Medical History: Denies: Eczema, Psoriasis Psychiatric Medical History: Reports: Depression Hematology: Reports: Anemia Infectious Medical History: Reports: Methicillin-Resistant Staph Aureus Past Surgical History Past Surgical History: Reports: Appendectomy, Cholecystectomy, Hysterectomy, Orthopedic Surgery - Multiple left hip procedures, 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 Social History Information Source: Patient Smoking Status: Former Smoker Frequency of Alcohol Use: None Hx Recreational Drug Use: No Drugs: None Hx Prescription Drug Abuse: No - Advance Directive Resuscitation Status: Do Not Resuscitate Surrogate healthcare decision maker:: Surrogate decision maker is Lida patient's daughter Family History Family History: Reviewed & Not Pertinent, Arthritis, CAD, CVA, DM, Hyperlipidemia, Hypertension Parental Family History Reviewed: Yes Children Family History Reviewed: Yes Sibling(s) Family History Reviewed.: Yes Medication/Allergy Home Medications: Acetaminophen [Tylenol 325 mg Tablet] 650 mg PO Q4HP PRN 09/09/17 Acetylcysteine [Mucomist 10% Neb 400 mg/4 mL Vial] 400 mg NEB RTQ6 09/09/17 Albuterol Sulfate [Proair HFA Inhalation Aerosol 8.5 gm MDI] 2 puff IH Q6HP PRN 09/09/17 Ascorbic Acid [Vitamin C 500 mg Tablet] 500 mg PO BID 09/09/17 Aspirin [Aspirin 81 mg Chewable Tablet] 81 mg PO DAILY 09/09/17 Baclofen [Baclofen 10 mg Tablet] 10 mg PO Q8HP PRN 09/09/17 Benzocaine/Menthol [Chloraseptic Sore Throat Lozenge] 1 ru PO Q1HP PRN Benzonatate [Tessalon Perles 100 mg Capsule] 200 mg PO Q8HP PRN 09/09/17 Biotin [Biotin 1 mg Tablet] 1 mg PO DAILYP PRN 09/09/17 Budesonide [Pulmicort 180 mcg Flexhaler] 2 puff IH Q12 09/09/17 Buspirone HCl [Buspar 5 mg Tablet] 5 mg PO Q12 09/09/17 Butalb/Acetaminophen/Caffeine [Vdpiwb-Mwdqxcrw-Zkym 50-325-40] 2 tab PO Q6HP PRN 09/09/17 Carboxymethylcellulose Sodium [Refresh Plus 0.5% Oph Soln 0.4 ml Droperette] 1 drop OU QIDP PRN 09/09/17 Duloxetine HCl [Cymbalta] 90 mg PO DAILY 09/09/17 Ergocalciferol (Vitamin D2) [Drisdol 50,000 unit (1.25MG) Capsule] 50,000 unit PO MO@1000 09/09/17 Ferrous Sulfate [Feosol 325 mg Tablet] 325 mg PO BID 09/09/17 Fluticasone Propionate [Flonase Nasal [place] 50 Mcg/[place] 16 gm] 2 sprays NASL DAILY 09/09/17 Fluticasone/Salmeterol [Advair 500-50 Diskus 14 Dose/Diskus] 1 puff IH Q12 09/09 Furosemide [Lasix 20 mg Tablet] 20 mg PO QPM 09/09/17 Furosemide [Lasix 40 mg Tablet] 40 mg PO QAM 09/09/17 Hydralazine HCl [Apresoline 25 mg Tablet] 25 mg PO Q8 09/09/17 Insulin Detemir [Levemir Flextouch] 30 units SQ DAILY 09/09/17 Insulin Lispro [Humalog Insulin (Lispro) 100 unit/mL] 0 units SQ .SLIDING SCALE 09/09/17 Ipratropium/Albuterol Sulfate [Iprat-Albut 0.5-3(2.5) mg/3 ml] 3 ml NEB [id number] 09/09/17 Lactulose [Enulose 10 gm/15 mL Oral Solution] 15 ml PO BIDP PRN 09/09/17 Levalbuterol HCl [Xopenex Neb 0.63 mg/3 ml Ampul] 0.63 mg NEB RTQ8 09/09/17 Lidocaine [Lidoderm 5% (700 mg) Transdermal Patch] 1 patch TOP DAILY 09/09/17 Linaclotide [Linzess 145 Mcg Capsule] 145 mcg PO DAILY 09/09/17 Loratadine [Claritin 10 mg Tablet] 10 mg PO DAILY 09/09/17 Magnesium Hydroxide [Milk of Magnesia 30 ml Udcup] 30 ml PO DAILYP PRN 09/09/17 Melatonin 10 mg PO QHS 09/09/17 Menthol [Biofreeze] 1 applic TOP DAILYP PRN 09/09/17 Metoprolol Succinate [Toprol Xl 50 mg Tab.sr] 50 mg PO DAILY 09/09/17 Nitroglycerin [Nitrostat] 0.4 mg SL Q5MP PRN 09/09/17 Omeprazole 20 mg PO Q6AM 09/09/17 Polyethylene Glycol 3350 [Miralax Powder 17 gm/Packet] 17 gm PO DAILY 09/09/17 Potassium Chloride [Klor-Con 10 Meq Capsule ER] 10 meq PO DAILY 09/09/17 Prednisone [Deltasone 10 mg Tablet] 10 mg PO DAILY 09/09/17 Pregabalin [Lyrica 75 mg Capsule] 75 mg PO Q8 09/09/17 Promethazine HCl [Phenergan 25 mg Tablet] 25 mg PO Q6HP PRN 09/09/17 Ranitidine HCl [Zantac 150 mg Tablet] 150 mg PO BID 09/09/17 Ranolazine [Ranexa 500 mg Tab.sr] 500 mg PO Q12 09/09/17 Roflumilast [Daliresp 500 mcg Tablet] 500 mcg PO DAILY 09/09/17 Sennosides/Docusate 8.6-50 mg [Senna Plus Tablet] 1 tab PO QHS 09/09/17 Tamsulosin HCl [Flomax 0.4 mg Cap.sr] 0.4 mg PO DAILY 09/09/17 Tiotropium [place] [Spiriva Handihaler 5 Cap/Kit (18 Mcg/Cap)] 1 puff IH DAILY 09/09/17 Diltiazem HCl [Cardizem 60 mg Tablet] 60 mg PO Q8 tablet 09/16/17 Docusate Sodium [Colace 100 mg Capsule] 100 mg PO BID capsule 09/16/17 Fentanyl [Duragesic 25 mcg/hr Transdermal Patch] 1 patch TOP Q3D #1 09/16/17 Oxycodone HCl [Oxy-Ir 5 mg Tablet] 5 mg PO Q6 #5 09/16/17 Allergies/Adverse Reactions: Sulfa (Sulfonamide Antibiotics) Allergy (Intermediate, Verified 08/03/17 22:20) adhesive tape Allergy (Verified 08/03/17 22:20) atorvastatin calcium [From Lipitor] Allergy (Verified 08/03/17 22:20) celecoxib [From Celebrex] Allergy (Verified 08/03/17 22:20) Review of Systems ROS unobtainable: Due to mental status - Patient has been noted to be confused. Physical Exam Vital Signs: Temp Pulse Resp BP Pulse Ox 97.8 F 96 21 H 147/61 H 99 01/17/18 16:20 01/17/18 16:25 01/17/18 16:25 01/17/18 16:20 01/17/18 16:20 Intake & Output 01/16/18 01/17/18 01/18/18 06:59 06:59 06:59 Intake Total 266 122 208 Output Total 400 1050 400 Balance -134 -928 -192 Weight 94 kg 89 kg Exam: GENERAL: well-nourished and in no acute distress. Alert and oriented x2 HEAD: Atraumatic, normocephalic. EYES: Pupils equal round and reactive to light, extraocular movements intact, sclera anicteric, conjunctiva are normal. ENT: TMs normal, nares patent, oropharynx clear without exudates. Moist mucous membranes. No oral ulcerations or bleeding gums noted NECK: supple without lymphadenopathy. Trachea is central. No cervical or axillary lymphadenopathy noted. Carotids are 2+, JVD WNL LUNGS: Respiration seems nonlabored, no significant accessory muscle action noted. Bibasilar fine crackles and bilateral mild scattered wheezes rales or rhonchi noted. No significant dullness noted on percussion. CHEST: Palpation of the chest wall shows no significant chest wall tenderness. 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 ABDOMEN: Soft, no significant tenderness appreciated, normoactive bowel sounds. No guarding, no rebound. No rigidity noted . No masses appreciated. EXTREMITIES: Pedal pulses are 1-2+, no calf tenderness noted. No clubbing or cyanosis. negative pedal edema noted NEUROLOGICAL: Focused neurological exam showed no significant neurologic deficit. Normal speech, no focal weakness appreciated. PSYCH: Normal mood, normal affect. Judgment and insight not checked. SKIN: No significant ecchymosis, skin is noted to be warm. MUSCULOSKELETAL EXAM: No significant acute joint swelling noted. Results Laboratory Results: 01/17/18 03:03 01/16/18 04:47 01/16/18 01/17/18 01/17/18 22:15 03:03 08:50 WBC 15.5 H D RBC 4.26 Hgb 11.7 L Hct 35.0 L MCV 82 MCH 27.4 MCHC 33.4 RDW 17.0 H Plt Count 259 Carbonic Acid 1.28 HCO3/H2CO3 Ratio 25:1 ABG pH 7.50 H ABG pCO2 42.5 ABG pO2 73.5 L ABG HCO3 32.2 H ABG O2 Saturation 95.8 ABG Base Excess 8.1 FiO2 2L Stool Occult Blood NEGATIVE 01/14/18 01/15/18 01/17/18 05:57 11:03 03:03 Creatine Kinase 32 CK-MB (CK-2) Troponin I 0.015 NT-Pro-B Natriuret Pep 416 01/17/18 01/17/18 01/17/18 03:03 09:19 09:19 Creatine Kinase 25 L CK-MB (CK-2) 1.31 0.90 Troponin I 0.069 0.057 NT-Pro-B Natriuret Pep 01/17/18 01/17/18 16:07 16:07 Creatine Kinase 73 CK-MB (CK-2) 2.16 Troponin I 0.059 NT-Pro-B Natriuret Pep EKG Comments: Twelve-lead EKG reviewed shows multifocal atrial tachycardia. No acute ST-T wave changes are noted Impressions: Chest X-Ray 01/13/18 16:12 IMPRESSION: No significant interval change. Cardiomegaly. Visualized lung mead are clear. Other findings as noted above Assessment & Plan - Diagnosis (1) Multifocal atrial tachycardia Is this a current diagnosis for this admission?: Yes (2) Acute exacerbation of chronic obstructive pulmonary disease (COPD) Is this a current diagnosis for this admission?: Yes (3) Coronary artery disease Qualifiers: Coronary Disease-Associated Artery/Lesion type: [place] artery Is this a current diagnosis for this admission?: Yes (4) Hyperlipidemia Qualifiers: Hyperlipidemia type: unspecified Qualified Code(s): E78.5 - Hyperlipidemia , unspecified Is this a current diagnosis for this admission?: Yes (5) Hypertension Qualifiers: Hypertension type: essential hypertension Qualified Code(s): I10 - Essential (primary) hypertension Is this a current diagnosis for this admission?: Yes (6) Type 2 diabetes mellitus Qualifiers: Diabetes mellitus technician terminal and repeater insulin use: unspecified technician terminal and repeater insulin use status Diabetes mellitus complication status: with unspecified complications Qualified Code(s): E11.8 - Type 2 diabetes mellitus with unspecified complications Is this a current diagnosis for this admission?: Yes (7) Acute and chronic respiratory failure Qualifiers: Respiratory failure complication: hypoxia and hypercapnia Qualified Code(s) : J96.21 - Acute and chronic respiratory failure with hypoxia; J96.22 - Acute and chronic respiratory failure with hypercapnia; J96.22 - Acute and chronic respiratory failure with hypercapnia; J96.22 - Acute and chronic respiratory failure with hypercapnia Is this a current diagnosis for this admission?: Yes - Notes Notes: Multifocal atrial tachycardia: Patient is noted to have this tachyarrhythmia on EKG review and rhythm strip review. There is high chance of this deteriorating into atrial fibrillation. In fact review of records shows that patient does have history of atrial fibrillation. Calcium channel daniela such as Cardizem is better for control of dysrhythmia. Of course maintain electrolytes and magnesium within normal limits. Acute exacerbation of COPD: Continue current therapy may consider pulmonary evaluation. Coronary artery disease: Currently stable. Continue with risk factor modification and medical management. Acute on chronic respiratory failure with hypoxemia and hypercarbia: Continue with oxygen supplementation and intermittent noninvasive positive pressure ventilation. Hypertension: Blood pressure goal should be 140/90 but could be more liberal in this elderly lady. Diabetes: Recommend good control of blood sugar. However should avoid any hypoglycemia and hyperglycemia. Patient being expertly managed by primary care M.D/hospitalist - Time Time Spent: 30 to 50 Minutes - CODE STATUS : was discussed, patient remains DO NOT RESUSCITATE. Surrogate decision-maker unchanged. Multiple medical problems were addressed. More than 50% of the time spent coordinating care, discussing management plans with involved caregivers. Management plans discussed with involved personnels. Medical decision making was of moderate to high complexity, patient's has multiple comorbidities. Medications reviewed and adjusted accordingly: Yes
--- NOTE | 2018-01-18 16:41 | PDOC PROGRESS REPORT ---
Subjective Progress Note for:: 01/18/18 Subjective:: Patient had multiple episodes of nausea and vomiting. Today she is noted to be with NG tube. Patient had CT scan of the abdomen and pelvis performed. This is being followed and managed by the hospitalist. On questioning patient denied any chest pain. Today she seems more oriented. Reason For Visit: COPD EXACERBATION Physical Exam Vital Signs: Temp Pulse Resp BP Pulse Ox 98.9 F 99 20 145/69 H 95 01/18/18 16:11 01/18/18 16:14 01/18/18 16:14 01/18/18 12:33 01/18/18 16:14 Intake & Output 01/17/18 01/18/18 01/19/18 06:59 06:59 06:59 Intake Total 122 445 Output Total 1050 1050 Balance -928 -605 Weight 89 kg 88.6 kg Exam: GENERAL: well-nourished and in no acute distress. Alert and oriented x3 HEAD: Atraumatic, normocephalic. NG tube noted. EYES: Pupils equal round and reactive to light, extraocular movements intact, sclera anicteric, conjunctiva are normal. ENT: TMs normal, nares patent, oropharynx clear without exudates. Moist mucous membranes. No oral ulcerations or bleeding gums noted NECK: supple without lymphadenopathy. Trachea is central. No cervical or axillary lymphadenopathy noted. Carotids are 2+, JVD WNL LUNGS: Respiration seems nonlabored, no significant accessory muscle action noted. Bilateral mild scattered wheezes rales or rhonchi noted. No significant dullness noted on percussion. CHEST: Palpation of the chest wall shows no significant chest wall tenderness. 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 ABDOMEN: Soft, no significant tenderness appreciated, normoactive bowel sounds. No guarding, no rebound. No rigidity noted . No masses appreciated. EXTREMITIES: Pedal pulses are 1-2+, no calf tenderness noted. No clubbing or cyanosis. negative pedal edema noted NEUROLOGICAL: Focused neurological exam showed no significant neurologic deficit. Normal speech, no focal weakness appreciated. PSYCH: Normal mood, normal affect. Judgment and insight within normal limits. SKIN: No significant ecchymosis, skin is noted to be warm. MUSCULOSKELETAL EXAM: No significant acute joint swelling noted. Results Laboratory Results: 01/18/18 05:02 01/18/18 05:02 01/18/18 01/18/18 01/18/18 00:30 05:02 05:02 WBC 16.9 H RBC 3.98 Hgb 11.2 L Hct 33.3 L MCV 84 MCH 28.2 MCHC 33.7 RDW 16.7 H Plt Count 221 Seg Neutrophils % 87.5 H Lymphocytes % 5.1 L Monocytes % 7.3 Eosinophils % 0.0 Basophils % 0.1 Absolute Neutrophils 14.7 H Absolute Lymphocytes 0.9 Absolute Monocytes 1.2 Absolute Eosinophils 0.0 Absolute Basophils 0.0 Sodium 143.3 Potassium 3.6 Chloride 100 Carbon Dioxide 31 H Anion Gap 12 BUN 24 H Creatinine 1.03 Est GFR ( Amer) > 60 Est GFR (Non-Af Amer) 52 L Glucose 104 Calcium 9.0 Urine Color [place] Urine Appearance CLOUDY Urine pH 6.0 Ur Specific [place] 1.016 Urine Protein 30 H Urine Glucose (UA) NEGATIVE Urine Ketones NEGATIVE Urine Blood NEGATIVE Urine Nitrite NEGATIVE Ur Leukocyte Esterase LARGE H Urine WBC (Auto) >182 Urine RBC (Auto) 34 01/14/18 01/15/18 01/17/18 05:57 11:03 03:03 Creatine Kinase 32 CK-MB (CK-2) Troponin I 0.015 NT-Pro-B Natriuret Pep 416 01/17/18 01/17/18 01/17/18 03:03 09:19 09:19 Creatine Kinase 25 L CK-MB (CK-2) 1.31 0.90 Troponin I 0.069 0.057 NT-Pro-B Natriuret Pep 01/17/18 01/17/18 16:07 16:07 Creatine Kinase 73 CK-MB (CK-2) 2.16 Troponin I 0.059 NT-Pro-B Natriuret Pep EKG Comments: Twelve-lead EKG shows sinus rhythm with frequent APCs. Impressions: Abdomen/Pelvis CT 01/18/18 00:00 IMPRESSION: 1. Area of irregular high density along the inferior anterior stomach has an appearance suggestive of cyst hemorrhage possibly in the omentum. Please correlate with any recent trauma. Consider NG tube placement and short-term follow-up exam with IV contrast. Tumor is felt less likely as this was not present on the recent prior exam. 2. Diverticulosis. Chest X-Ray 01/18/18 00:00 IMPRESSION: Mild pulmonary vascular congestion 2010 [employer]- All Rights Reserved KUB X-Ray 01/18/18 04:32 IMPRESSION: NG tube in good position in the upper stomach. Assessment & Plan - Diagnosis (1) Multifocal atrial tachycardia Is this a current diagnosis for this admission?: Yes (2) Acute exacerbation of chronic obstructive pulmonary disease (COPD) Is this a current diagnosis for this admission?: Yes (3) Coronary artery disease Qualifiers: Coronary Disease-Associated Artery/Lesion type: [place] artery Is this a current diagnosis for this admission?: Yes (4) Hyperlipidemia Qualifiers: Hyperlipidemia type: unspecified Qualified Code(s): E78.5 - Hyperlipidemia , unspecified Is this a current diagnosis for this admission?: Yes (5) Hypertension Qualifiers: Hypertension type: essential hypertension Qualified Code(s): I10 - Essential (primary) hypertension Is this a current diagnosis for this admission?: Yes (6) Type 2 diabetes mellitus Qualifiers: 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: unspecified local intermodal truck driver insulin use status Diabetes mellitus complication status: with unspecified complications Qualified Code(s): E11.8 - Type 2 diabetes mellitus with unspecified complications Is this a current diagnosis for this admission?: Yes (7) Acute and chronic respiratory failure Qualifiers: Respiratory failure complication: hypoxia and hypercapnia Qualified Code(s) : J96.21 - Acute and chronic respiratory failure with hypoxia; J96.22 - Acute and chronic respiratory failure with hypercapnia; J96.22 - Acute and chronic respiratory failure with hypercapnia; J96.22 - Acute and chronic respiratory failure with hypercapnia Is this a current diagnosis for this admission?: Yes - Notes Notes: Multifocal atrial tachycardia: Patient is noted to have this tachyarrhythmia on EKG review and rhythm strip review. There is high chance of this deteriorating into atrial fibrillation. In fact review of records shows that patient does have history of atrial fibrillation. Calcium channel daniela such as Cardizem is better for control of dysrhythmia. Of course maintain electrolytes and magnesium within normal limits. Patient currently on Cardizem 60 mg p.o. every 8. Which is rather satisfactory. Patient currently not on chronic anticoagulation. 2D echo results were reviewed. Feel that management of COPD and calcium channel daniela now indicated as adequate treatment for MAT. Acute exacerbation of COPD: Continue current therapy may consider pulmonary evaluation. Coronary artery disease: Currently stable. Continue with risk factor modification and medical management. Acute on chronic respiratory failure with hypoxemia and hypercarbia: Continue with oxygen supplementation and intermittent noninvasive positive pressure ventilation. Hypertension: Blood pressure goal should be 140/90 but could be more liberal in this elderly lady. Diabetes: Recommend good control of blood sugar. However should avoid any hypoglycemia and hyperglycemia. Patient being expertly managed by primary care M.D/hospitalist Abdominal discomfort with nausea and vomiting. We will leave this management to Dr. espinal. - Time Time with patient: Greater than 35 minutes - 2D echo results reviewed. CODE STATUS : was discussed, patient remains DO NOT RESUSCITATE. Surrogate decision- maker unchanged. Multiple medical problems were addressed. More than 50% of the time spent coordinating care, discussing management plans with involved caregivers. Management plans discussed with involved personnels. Medical decision making was of moderate to high complexity, patient's has multiple comorbidities. Medications reviewed and adjusted accordingly: Yes
[2018-01-18] MEDS: FUROSEMIDE 20 MG TABLET NG SCH (18:08)
--- NOTE | 2018-01-18 20:07 | PDOC CONSULTATION ---
Consultation Consult Date: 01/18/18 Consult reason:: CT scan findings of hemorrhage at the omentum History of Present Illness Admission Date/PCP: 01/13/18 18:41 GILBERT CASTANEDA DO History of Present Illness: PORSHA WALDRON is a 72 year old female with hx of COPD,DM, fibromyalgia resident of [facility] who was admitted for shortness of breath 01/13/18. Later this week developed diarrhea with nausea and vomiting. Ct scan today showed hemorrhage at the omentum with dilated stomach and duodenum. Her Hb has been stable. Today also found to have positive for C Diff. Past Medical History Cardiac Medical History: Reports: Atrial Fibrillation, Congestive Heart Failure - Diastolic dysfunction, Myocardial Infarction, Hypertension - essential, Pulmonary Embolism, Heart Murmur Denies: Coronary Artery Disease, DVT, Hyperlipidema, Peripheral Vascular Disease Pulmonary Medical History: Reports: Asthma, Bronchitis, Chronic Obstructive Pulmonary Disease (COPD), Pneumonia - Recurrent MRSA pneumonia., Sleep Apnea - Uses C Pap Denies: Tuberculosis Neurological Medical History: Denies: Seizures Endocrine Medical History: Reports: Diabetes Mellitus Type 2 Denies: Diabetes Mellitus Type 1, Hyperthyroidism, Hypothyroidism GI Medical History: Reports: Gastroesophageal Reflux Disease, Hiatal Hernia Denies: Cirrhosis, Hepatitis Musculoskeltal Medical History: Reports: Arthritis, Fibromyalgia, Gout Skin Medical History: Denies: Eczema, Psoriasis Psychiatric Medical History: Reports: Depression Hematology: Reports: Anemia Infectious Medical History: Reports: Methicillin-Resistant Staph Aureus Past Surgical History Past Surgical History: Reports: Appendectomy, Cholecystectomy, Hysterectomy, Orthopedic Surgery - Multiple left hip procedures, 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 Social History Smoking Status: Former Smoker Frequency of Alcohol Use: None Hx Recreational Drug Use: No Drugs: None Hx Prescription Drug Abuse: No - Advance Directive Resuscitation Status: Do Not Resuscitate Family History Family History: Reviewed & Not Pertinent, Arthritis, CAD, CVA, DM, Hyperlipidemia, Hypertension Parental Family History Reviewed: Yes Children Family History Reviewed: Yes - daughter from melanoma Sibling(s) Family History Reviewed.: No Medication/Allergy Home Medications: Acetaminophen [Tylenol 325 mg Tablet] 650 mg PO Q4HP PRN 09/09/17 Acetylcysteine [Mucomist 10% Neb 400 mg/4 mL Vial] 400 mg NEB RTQ6 09/09/17 Albuterol Sulfate [Proair HFA Inhalation Aerosol 8.5 gm MDI] 2 puff IH Q6HP PRN 09/09/17 Ascorbic Acid [Vitamin C 500 mg Tablet] 500 mg PO BID 09/09/17 Aspirin [Aspirin 81 mg Chewable Tablet] 81 mg PO DAILY 09/09/17 Baclofen [Baclofen 10 mg Tablet] 10 mg PO Q8HP PRN 09/09/17 Benzocaine/Menthol [Chloraseptic Sore Throat Lozenge] 1 ru PO Q1HP PRN Benzonatate [Tessalon Perles 100 mg Capsule] 200 mg PO Q8HP PRN 09/09/17 Biotin [Biotin 1 mg Tablet] 1 mg PO DAILYP PRN 09/09/17 Budesonide [Pulmicort 180 mcg Flexhaler] 2 puff IH Q12 09/09/17 Buspirone HCl [Buspar 5 mg Tablet] 5 mg PO Q12 09/09/17 Butalb/Acetaminophen/Caffeine [Qsgrlb-Quwlcbnh-Flmq 50-325-40] 2 tab PO Q6HP PRN 09/09/17 Carboxymethylcellulose Sodium [Refresh Plus 0.5% Oph Soln 0.4 ml Droperette] 1 drop OU QIDP PRN 09/09/17 Duloxetine HCl [Cymbalta] 90 mg PO DAILY 09/09/17 Ergocalciferol (Vitamin D2) [Drisdol 50,000 unit (1.25MG) Capsule] 50,000 unit PO MO@1000 09/09/17 Ferrous Sulfate [Feosol 325 mg Tablet] 325 mg PO BID 09/09/17 Fluticasone Propionate [Flonase Nasal [place] 50 Mcg/[place] 16 gm] 2 sprays NASL DAILY 09/09/17 Fluticasone/Salmeterol [Advair 500-50 Diskus 14 Dose/Diskus] 1 puff IH Q12 09/09 Furosemide [Lasix 20 mg Tablet] 20 mg PO QPM 09/09/17 Furosemide [Lasix 40 mg Tablet] 40 mg PO QAM 09/09/17 Hydralazine HCl [Apresoline 25 mg Tablet] 25 mg PO Q8 09/09/17 Insulin Detemir [Levemir Flextouch] 30 units SQ DAILY 09/09/17 Insulin Lispro [Humalog Insulin (Lispro) 100 unit/mL] 0 units SQ .SLIDING SCALE 09/09/17 Ipratropium/Albuterol Sulfate [Iprat-Albut 0.5-3(2.5) mg/3 ml] 3 ml NEB [id number] 09/09/17 Lactulose [Enulose 10 gm/15 mL Oral Solution] 15 ml PO BIDP PRN 09/09/17 Levalbuterol HCl [Xopenex Neb 0.63 mg/3 ml Ampul] 0.63 mg NEB RTQ8 09/09/17 Lidocaine [Lidoderm 5% (700 mg) Transdermal Patch] 1 patch TOP DAILY 09/09/17 Linaclotide [Linzess 145 Mcg Capsule] 145 mcg PO DAILY 09/09/17 Loratadine [Claritin 10 mg Tablet] 10 mg PO DAILY 09/09/17 Magnesium Hydroxide [Milk of Magnesia 30 ml Udcup] 30 ml PO DAILYP PRN 09/09/17 Melatonin 10 mg PO QHS 09/09/17 Menthol [Biofreeze] 1 applic TOP DAILYP PRN 09/09/17 Metoprolol Succinate [Toprol Xl 50 mg Tab.sr] 50 mg PO DAILY 09/09/17 Nitroglycerin [Nitrostat] 0.4 mg SL Q5MP PRN 09/09/17 Omeprazole 20 mg PO Q6AM 09/09/17 Polyethylene Glycol 3350 [Miralax Powder 17 gm/Packet] 17 gm PO DAILY 09/09/17 Potassium Chloride [Klor-Con 10 Meq Capsule ER] 10 meq PO DAILY 09/09/17 Prednisone [Deltasone 10 mg Tablet] 10 mg PO DAILY 09/09/17 Pregabalin [Lyrica 75 mg Capsule] 75 mg PO Q8 09/09/17 Promethazine HCl [Phenergan 25 mg Tablet] 25 mg PO Q6HP PRN 09/09/17 Ranitidine HCl [Zantac 150 mg Tablet] 150 mg PO BID 09/09/17 Ranolazine [Ranexa 500 mg Tab.sr] 500 mg PO Q12 09/09/17 Roflumilast [Daliresp 500 mcg Tablet] 500 mcg PO DAILY 09/09/17 Sennosides/Docusate 8.6-50 mg [Senna Plus Tablet] 1 tab PO QHS 09/09/17 Tamsulosin HCl [Flomax 0.4 mg Cap.sr] 0.4 mg PO DAILY 09/09/17 Tiotropium [place] [Spiriva Handihaler 5 Cap/Kit (18 Mcg/Cap)] 1 puff IH DAILY 09/09/17 Diltiazem HCl [Cardizem 60 mg Tablet] 60 mg PO Q8 tablet 09/16/17 Docusate Sodium [Colace 100 mg Capsule] 100 mg PO BID capsule 09/16/17 Fentanyl [Duragesic 25 mcg/hr Transdermal Patch] 1 patch TOP Q3D #1 09/16/17 Oxycodone HCl [Oxy-Ir 5 mg Tablet] 5 mg PO Q6 #5 09/16/17 Allergies/Adverse Reactions: Sulfa (Sulfonamide Antibiotics) Allergy (Intermediate, Verified 08/03/17 22:20) adhesive tape Allergy (Verified 08/03/17 22:20) atorvastatin calcium [From Lipitor] Allergy (Verified 08/03/17 22:20) celecoxib [From Celebrex] Allergy (Verified 08/03/17 22:20) Review of Systems Constitutional: PRESENT: other - no fever/chills Eyes: PRESENT: other - good vision especially after elia cataract surgery Ears: PRESENT: other - decreased hearing right ear Cardiovascular: PRESENT: chest pain Respiratory: PRESENT: cough, dyspnea Gastrointestinal: PRESENT: abdominal pain - mild on the LLQ Genitourinary: PRESENT: other - no dysuria Musculoskeletal: PRESENT: other - does not walk for 10 years now after her hip fracture. Has Charcoat's feet Neurological: PRESENT: numbness, weakness, other - neuropathy Physical Exam Vital Signs: Temp Pulse Resp BP Pulse Ox 98.9 F 99 20 145/69 H 95 01/18/18 16:11 01/18/18 16:14 01/18/18 16:14 01/18/18 12:33 01/18/18 16:14 Intake & Output 01/17/18 01/18/18 01/19/18 06:59 06:59 06:59 Intake Total 122 445 320 Output Total 1050 1050 600 Balance -928 -605 -280 Weight 89 kg 88.6 kg General appearance: PRESENT: mild distress, morbidly obese Head exam: PRESENT: atraumatic Eye exam: PRESENT: conjunctiva pink Mouth exam: PRESENT: dry mucosa Neck exam: PRESENT: full ROM Respiratory exam: PRESENT: rhonchi Cardiovascular exam: PRESENT: RRR Pulses: PRESENT: normal radial pulses Vascular exam: PRESENT: normal capillary refill GI/Abdominal exam: PRESENT: soft, tenderness - mild LLQ NGT in place Tympanitic Rectal exam: PRESENT: deferred Extremities exam: PRESENT: other - atrophied lower extremity muscles due to disuse Musculoskeletal exam: PRESENT: other - weak lower ext Neurological exam: PRESENT: alert, oriented to person, oriented to place, oriented to time, oriented to situation Psychiatric exam: PRESENT: appropriate affect Skin exam: PRESENT: normal color, warm Results Laboratory Results: 01/18/18 05:02 01/18/18 05:02 01/18/18 01/18/18 01/18/18 00:30 05:02 05:02 WBC 16.9 H RBC 3.98 Hgb 11.2 L Hct 33.3 L MCV 84 MCH 28.2 MCHC 33.7 RDW 16.7 H Plt Count 221 Seg Neutrophils % 87.5 H Lymphocytes % 5.1 L Monocytes % 7.3 Eosinophils % 0.0 Basophils % 0.1 Absolute Neutrophils 14.7 H Absolute Lymphocytes 0.9 Absolute Monocytes 1.2 Absolute Eosinophils 0.0 Absolute Basophils 0.0 Sodium 143.3 Potassium 3.6 Chloride 100 Carbon Dioxide 31 H Anion Gap 12 BUN 24 H Creatinine 1.03 Est GFR ( Amer) > 60 Est GFR (Non-Af Amer) 52 L Glucose 104 Calcium 9.0 Urine Color [place] Urine Appearance CLOUDY Urine pH 6.0 Ur Specific [place] 1.016 Urine Protein 30 H Urine Glucose (UA) NEGATIVE Urine Ketones NEGATIVE Urine Blood NEGATIVE Urine Nitrite NEGATIVE Ur Leukocyte Esterase LARGE H Urine WBC (Auto) >182 Urine RBC (Auto) 34 01/13/18 19:12 Blood Blood Culture - Final NO GROWTH IN 5 DAYS 01/14/18 01/15/18 01/17/18 05:57 11:03 03:03 Creatine Kinase 32 CK-MB (CK-2) Troponin I 0.015 NT-Pro-B Natriuret Pep 416 01/17/18 01/17/18 01/17/18 03:03 09:19 09:19 Creatine Kinase 25 L CK-MB (CK-2) 1.31 0.90 Troponin I 0.069 0.057 NT-Pro-B Natriuret Pep 01/17/18 01/17/18 16:07 16:07 Creatine Kinase 73 CK-MB (CK-2) 2.16 Troponin I 0.059 NT-Pro-B Natriuret Pep Impressions: Abdomen/Pelvis CT 01/18/18 00:00 IMPRESSION: 1. Area of irregular high density along the inferior anterior stomach has an appearance suggestive of cyst hemorrhage possibly in the omentum. Please correlate with any recent trauma. Consider NG tube placement and short-term follow-up exam with IV contrast. Tumor is felt less likely as this was not present on the recent prior exam. 2. Diverticulosis. Chest X-Ray 01/18/18 00:00 IMPRESSION: Mild pulmonary vascular congestion 2010 [employer]- All Rights Reserved KUB X-Ray 01/18/18 04:32 IMPRESSION: NG tube in good position in the upper stomach. Assessment & Plan - Time Time Spent: 30 to 50 Minutes - Plan Summary Plan Summary: 72 yo female with hx of DM,Fibromyalgia, COPD with exacerbation just diagnosed with C Diff with CT scan showing hemorrhage of the omentum. She denies trauma and no obvious physical finding of trauma to abdominal wall. Her HH stable. Ct scan findings may be related to C Diff in view of no hx of trauma. The elevated wbc and abdominal pains likely due to C Diff since it is at the LLQ rather than the due to Omental hemorrhage which should be in the upper abdomen.Nurse claims patient is getting Lovenox which may be a contributing factor. At any rate, there is no surgical abdomen at this time Will follow with you Suggest to hold off Lovenox unless the HH stable next 24-48 hrs.
[2018-01-18] MEDS ORDERED: PHENOL/SODIUM PHENOLATE 100 SPRAY/177 ML BOTTLE PO PRN (20:47)
[2018-01-18] MEDS ORDERED: PHENOL/SODIUM PHENOLATE 100 SPRAY/177 ML BOTTLE ONE (21:46)
[2018-01-18] MEDS: AZITHROMYCIN 250 MG TABLET NG SCH (22:20)
[2018-01-18] MEDS: MELATONIN 5 MG TABLET PO SCH (22:20)
[2018-01-18] MEDS: SENNOSIDES/DOCUSATE 8.6-50 MG 1 EACH TABLET PO SCH (22:20)
[2018-01-18] MEDS: BACLOFEN 10 MG TABLET NG PRN (23:34)
[2018-01-19] MEDS: IPRATROPIUM/ALBUTEROL 0.5-2.5 MG/3 ML AMPUL NEB SCH ×6 (04:19→22:29)
[2018-01-19] MEDS: RINGERS SOLUTION,LACTATED 1,000 ML IV PRN (06:43)
[2018-01-19] MEDS: METRONIDAZOLE 500 MG/NS RTU 500 MG/100 ML RTUPB IV SCH ×4 (06:44→23:58)
[2018-01-19] MEDS: VANCOMYCIN HCL INJ 500 MG VIAL NG SCH ×4 (06:44→23:57)
[2018-01-19] MEDS: DILTIAZEM HCL 60 MG TABLET NG SCH ×3 (06:44→23:56)
[2018-01-19] MEDS: PREGABALIN 75 MG CAPSULE PO SCH ×3 (06:44→23:59)
[2018-01-19] MEDS: LANSOPRAZOLE 30 MG TAB.RAP.DR PO SCH (06:44)
[2018-01-19] MEDS: HYDRALAZINE HCL 25 MG TABLET PO SCH ×3 (06:44→23:59)
[2018-01-19] MEDS: OXYCODONE HCL IR 5 MG TABLET NG SCH ×4 (06:44→23:59)
[2018-01-19] MEDS: BACLOFEN 10 MG TABLET NG PRN (06:45)
[2018-01-19 07:09] LABS: ABSOLUTE MONOCYTES (AUTO) 1.2 10^3/uL (0.1-1.4); ABSOLUTE NEUT (AUTO) 14.1 10^3/uL (1.7-8.2); EOSINOPHILS % (AUTO) 0.2 % (0-6); HEMATOCRIT 32.4 % (36.0-47.0); HEMOGLOBIN 10.8 g/dL (12.0-15.5); LYMPHOCYTES % (AUTO) 6.2 % (13-45); MEAN CORPUSCULAR HEMOGLOBIN 27.8 pg (27.0-33.4); MEAN CORPUSCULAR HGB CONC 33.4 g/dL (32.0-36.0); MEAN CORPUSCULAR VOLUME 83 fl (80-97); MONOCYTES % (AUTO) 7.6 % (3-13); PLATELET COUNT 197 10^3/uL (150-450); RED CELL DISTRIBUTION WIDTH 16.8 % (11.5-14.0); TOTAL CELLS COUNTED % (AUTO) 100 %; WHITE BLOOD COUNT 16.4 10^3/uL (4.0-10.5)
[2018-01-19 07:32] LABS: ANION GAP 12 (5-19); BLOOD UREA NITROGEN 17 mg/dL (7-20); CALCIUM 8.8 mg/dL (8.4-10.2); CARBON DIOXIDE 28 mmol/L (22-30); CHLORIDE 104 mmol/L (98-107); GLUCOSE 93 mg/dL (75-110); POTASSIUM 3.2 mmol/L (3.6-5.0); SODIUM 144.3 mmol/L (137-145)
[2018-01-19] MEDS: ACETYLCYSTEINE 10% NEB 400 MG/4 ML VIAL NEB SCH ×2 (07:39→19:40)
[2018-01-19] MEDS: FUROSEMIDE 40 MG TABLET NG SCH (10:04)
[2018-01-19] MEDS: ASCORBIC ACID 500 MG TABLET NG SCH ×2 (10:05→18:43)
[2018-01-19] MEDS: BUSPIRONE HCL 10 MG TABLET NG SCH ×2 (10:05→23:57)
[2018-01-19] MEDS: DULOXETINE HCL 30 MG CAPSULE.DR PO SCH (10:06)
[2018-01-19] MEDS: FAMOTIDINE 20 MG TABLET NG SCH ×2 (10:07→23:55)
[2018-01-19] MEDS: FERROUS SULFATE 325 MG TABLET PO SCH ×2 (10:07→18:44)
[2018-01-19] MEDS: LIDOCAINE 5% (700 MG) TRANSDERMAL ADH..PATCH TOP SCH (10:10)
[2018-01-19] MEDS: PANTOPRAZOLE SODIUM 40 MG VIAL IV SCH ×2 (10:13→23:57)
[2018-01-19] MEDS: METOPROLOL SUCCINATE 50 MG TAB.SR.24H PO SCH (10:14)
[2018-01-19] MEDS: LORATADINE 10 MG TABLET PO SCH (10:14)
[2018-01-19] MEDS: TAMSULOSIN HCL 0.4 MG CAP.SR.24H PO SCH (10:15)
[2018-01-19] MEDS: POTASSIUM CHLORIDE 10 MEQ CAPSULE.ER PO SCH (10:16)
[2018-01-19] MEDS: RANOLAZINE 500 MG TAB.SR.12H PO SCH ×2 (10:16→23:58)
[2018-01-19] MEDS: ROFLUMILAST 500 MCG TABLET PO SCH (10:16)
[2018-01-19] MEDS: TIOTROPIUM BROMIDE DPI 5 CAP/KIT (18 MCG/CAP) IH SCH (10:17)
[2018-01-19] MEDS: PREDNISONE 20 MG TABLET PO SCH (10:20)
[2018-01-19] MEDS: ENOXAPARIN SODIUM INJ 40 MG/0.4 ML DISP.SYRIN SUBCUT SCH (10:21)
[2018-01-19] MEDS: DOCUSATE SODIUM 100 MG CAPSULE PO SCH ×2 (10:21→18:45)
[2018-01-19] MEDS: INSULIN DETEMIR 100 UNIT/ML 3 ML PEN SUBCUT SCH (10:21)
[2018-01-19] MEDS: POLYETHYLENE GLYCOL 3350 POWDER 17 GM/1 PACKET PO SCH (10:21)
[2018-01-19] MEDS: FLUTICASONE NASAL SPRAY 50 MCG/SPRY 120 SPRAY/16 GM NASL SCH (10:30)
[2018-01-19] MEDS: FLUTICASONE/SALMETEROL DISKUS 500-50 MCG/DOSE IH SCH ×2 (10:31→23:58)
[2018-01-19] MEDS: ASPIRIN 81 MG TABLET, CHEWABLE NG SCH (13:34)
--- NOTE | 2018-01-19 15:34 | PDOC PROGRESS REPORT ---
Subjective Progress Note for:: 01/19/18 Subjective:: Patient had multiple episodes of nausea and vomiting. Today also she is noted to be with NG tube. Patient had CT scan of the abdomen and pelvis performed. This showed intraperitoneal hemorrhage in the omentum. Patient evaluated by surgeon. No surgery planned. This is being followed and managed by the hospitalist. On questioning patient denied any chest pain. Today she seems more oriented. Telemetry strips an EKG shows sinus rhythm with continued frequent APCs. Reason For Visit: COPD EXACERBATION Physical Exam Vital Signs: Temp Pulse Resp BP Pulse Ox 98.6 F 97 22 H 126/66 H 94 01/19/18 12:09 01/19/18 12:09 01/19/18 12:09 01/19/18 12:09 01/19/18 12:09 Intake & Output 01/18/18 01/19/18 01/20/18 06:59 06:59 06:59 Intake Total 445 1700 Output Total 1050 600 350 Balance -605 1100 -350 Weight 88.6 kg Exam: GENERAL: well-nourished and in no acute distress. Alert and oriented x3 HEAD: Atraumatic, normocephalic. NG tube noted. EYES: Pupils equal round and reactive to light, extraocular movements intact, sclera anicteric, conjunctiva are normal. ENT: TMs normal, nares patent, oropharynx clear without exudates. Moist mucous membranes. No oral ulcerations or bleeding gums noted NECK: supple without lymphadenopathy. Trachea is central. No cervical or axillary lymphadenopathy noted. Carotids are 2+, JVD WNL LUNGS: Respiration seems nonlabored, no significant accessory muscle action noted. Few bibasilar crackles and few a scattered wheezes rales or rhonchi noted. No significant dullness noted on percussion. CHEST: Palpation of the chest wall shows no significant chest wall tenderness. HEART: [place] [employer], No PSH, 1/6 REBECA aortic area, 1/6 morley systolic murmur mitral area, no rubs, no gallops. ABDOMEN: Soft, no significant tenderness appreciated, normoactive bowel sounds. No guarding, no rebound. No rigidity noted . No masses appreciated. EXTREMITIES: Pedal pulses are 1-2+, no calf tenderness noted. No clubbing or cyanosis. 1+ pedal edema noted NEUROLOGICAL: Focused neurological exam showed no significant neurologic deficit. Normal speech, no focal weakness appreciated. PSYCH: Normal mood, normal affect. Judgment and insight within normal limits. SKIN: No significant ecchymosis, skin is noted to be warm. MUSCULOSKELETAL EXAM: No significant acute joint swelling noted. Results Laboratory Results: 01/19/18 06:26 01/19/18 06:26 01/19/18 01/19/18 06:26 06:26 WBC 16.4 H RBC 3.90 Hgb 10.8 L Hct 32.4 L MCV 83 MCH 27.8 MCHC 33.4 RDW 16.8 H Plt Count 197 Seg Neutrophils % 86.0 H Lymphocytes % 6.2 L Monocytes % 7.6 Eosinophils % 0.2 Basophils % 0.0 Absolute Neutrophils 14.1 H Absolute Lymphocytes 1.0 Absolute Monocytes 1.2 Absolute Eosinophils 0.0 Absolute Basophils 0.0 Sodium 144.3 Potassium 3.2 L Chloride 104 Carbon Dioxide 28 Anion Gap 12 BUN 17 Creatinine 0.94 Est GFR ( Amer) > 60 Est GFR (Non-Af Amer) 58 L Glucose 93 Calcium 8.8 01/13/18 19:12 Blood Blood Culture - Final NO GROWTH IN 5 DAYS 01/14/18 01/15/18 01/17/18 05:57 11:03 03:03 Creatine Kinase 32 CK-MB (CK-2) Troponin I 0.015 NT-Pro-B Natriuret Pep 416 01/17/18 01/17/18 01/17/18 03:03 09:19 09:19 Creatine Kinase 25 L CK-MB (CK-2) 1.31 0.90 Troponin I 0.069 0.057 NT-Pro-B Natriuret Pep 01/17/18 01/17/18 16:07 16:07 Creatine Kinase 73 CK-MB (CK-2) 2.16 Troponin I 0.059 NT-Pro-B Natriuret Pep EKG Comments: Telemetry shows sinus rhythm with frequent APCs and occasional VPCs. Impressions: Abdomen/Pelvis CT 01/18/18 00:00 IMPRESSION: 1. Area of irregular high density along the inferior anterior stomach has an appearance suggestive of cyst hemorrhage possibly in the omentum. Please correlate with any recent trauma. Consider NG tube placement and short-term follow-up exam with IV contrast. Tumor is felt less likely as this was not present on the recent prior exam. 2. Diverticulosis. Chest X-Ray 01/18/18 00:00 IMPRESSION: Mild pulmonary vascular congestion 2010 [employer]- All Rights Reserved KUB X-Ray 01/18/18 04:32 IMPRESSION: NG tube in good position in the upper stomach. Assessment & Plan - Diagnosis (1) Multifocal atrial tachycardia Is this a current diagnosis for this admission?: Yes (2) Acute exacerbation of chronic obstructive pulmonary disease (COPD) Is this a current diagnosis for this admission?: Yes (3) Coronary artery disease Qualifiers: Coronary Disease-Associated Artery/Lesion type: [place] artery Is this a current diagnosis for this admission?: Yes (4) Hyperlipidemia Qualifiers: Hyperlipidemia type: unspecified Qualified Code(s): E78.5 - Hyperlipidemia , unspecified Is this a current diagnosis for this admission?: Yes (5) Hypertension Qualifiers: Hypertension type: essential hypertension Qualified Code(s): I10 - Essential (primary) hypertension Is this a current diagnosis for this admission?: Yes (6) Type 2 diabetes mellitus 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: 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: unspecified care home insulin use status Diabetes mellitus complication status: with unspecified complications Qualified Code(s): E11.8 - Type 2 diabetes mellitus with unspecified complications Is this a current diagnosis for this admission?: Yes (7) Acute and chronic respiratory failure Qualifiers: Respiratory failure complication: hypoxia and hypercapnia Qualified Code(s) : J96.21 - Acute and chronic respiratory failure with hypoxia; J96.22 - Acute and chronic respiratory failure with hypercapnia; J96.22 - Acute and chronic respiratory failure with hypercapnia; J96.22 - Acute and chronic respiratory failure with hypercapnia Is this a current diagnosis for this admission?: Yes - Notes Notes: Multifocal atrial tachycardia: Patient is again noted to have this tachyarrhythmia on EKG review and rhythm strip review. There is high chance of this deteriorating into atrial fibrillation. In fact review of records shows that patient does have history of atrial fibrillation. Calcium channel daniela such as Cardizem is better for control of dysrhythmia. Of course maintain electrolytes and magnesium within normal limits. Patient currently on Cardizem 60 mg p.o. every 8. Which is rather satisfactory. Patient currently not on chronic anticoagulation. This is not indicated at this time. 2D echo results were reviewed. Feel that management of COPD and calcium channel daniela now indicated as adequate treatment for MAT. Acute exacerbation of COPD: Continue current therapy may consider pulmonary evaluation. Coronary artery disease: Currently stable. Continue with risk factor modification and medical management. Acute on chronic respiratory failure with hypoxemia and hypercarbia: Continue with oxygen supplementation and intermittent noninvasive positive pressure ventilation. Hypertension: Blood pressure goal should be 140/90 but could be more liberal in this elderly lady. Diabetes: Recommend good control of blood sugar. However should avoid any hypoglycemia and hyperglycemia. Patient being expertly managed by primary care M.D/hospitalist Intra-abdominal hemorrhage in the omentum with abdominal discomfort with nausea and vomiting. We will leave this management to Dr. espinal. Patient also being followed by the surgeon. - Time Time with patient: Greater than 35 minutes - CODE STATUS was discussed, patient remains DNR. Multiple medical problems were addressed. More than 50% of the time spent coordinating care, discussing management plans with involved caregivers. Management plans discussed with involved personnels. Medical decision making was of moderate to high complexity, patient's has multiple comorbidities. Medications reviewed and adjusted accordingly: Yes
--- NOTE | 2018-01-19 17:31 | PDOC PROGRESS REPORT ---
Subjective Progress Note for:: 01/19/18 Subjective:: I seen patient resting in bed. Her nausea and diarrhea is related to improving. Her NG tube is removed and patient started on clear liquid diet. Her kidney function has improved remarkably but states she has leukocytosis. Reason For Visit: COPD EXACERBATION Physical Exam Vital Signs: Temp Pulse Resp BP Pulse Ox 98.1 F 75 20 132/62 H 96 01/19/18 16:09 01/19/18 16:11 01/19/18 16:11 01/19/18 16:09 01/19/18 16:11 Intake & Output 01/18/18 01/19/18 01/20/18 06:59 06:59 06:59 Intake Total 445 1700 Output Total 1050 600 350 Balance -605 1100 -350 Weight 88.6 kg Results Laboratory Results: 01/19/18 06:26 01/19/18 06:26 01/19/18 01/19/18 06:26 06:26 WBC 16.4 H RBC 3.90 Hgb 10.8 L Hct 32.4 L MCV 83 MCH 27.8 MCHC 33.4 RDW 16.8 H Plt Count 197 Seg Neutrophils % 86.0 H Lymphocytes % 6.2 L Monocytes % 7.6 Eosinophils % 0.2 Basophils % 0.0 Absolute Neutrophils 14.1 H Absolute Lymphocytes 1.0 Absolute Monocytes 1.2 Absolute Eosinophils 0.0 Absolute Basophils 0.0 Sodium 144.3 Potassium 3.2 L Chloride 104 Carbon Dioxide 28 Anion Gap 12 BUN 17 Creatinine 0.94 Est GFR ( Amer) > 60 Est GFR (Non-Af Amer) 58 L Glucose 93 Calcium 8.8 01/13/18 19:12 Blood Blood Culture - Final NO GROWTH IN 5 DAYS 01/14/18 01/15/18 01/17/18 05:57 11:03 03:03 Creatine Kinase 32 CK-MB (CK-2) Troponin I 0.015 NT-Pro-B Natriuret Pep 416 01/17/18 01/17/18 01/17/18 03:03 09:19 09:19 Creatine Kinase 25 L CK-MB (CK-2) 1.31 0.90 Troponin I 0.069 0.057 NT-Pro-B Natriuret Pep 01/17/18 01/17/18 16:07 16:07 Creatine Kinase 73 CK-MB (CK-2) 2.16 Troponin I 0.059 NT-Pro-B Natriuret Pep Impressions: Abdomen/Pelvis CT 01/18/18 00:00 IMPRESSION: 1. Area of irregular high density along the inferior anterior stomach has an appearance suggestive of cyst hemorrhage possibly in the omentum. Please correlate with any recent trauma. Consider NG tube placement and short-term follow-up exam with IV contrast. Tumor is felt less likely as this was not present on the recent prior exam. 2. Diverticulosis. Chest X-Ray 01/18/18 00:00 IMPRESSION: Mild pulmonary vascular congestion 2010 [employer]- All Rights Reserved KUB X-Ray 01/18/18 04:32 IMPRESSION: NG tube in good position in the upper stomach. Assessment & Plan - Diagnosis (1) Clostridium difficile colitis Is this a current diagnosis for this admission?: Yes Plan: Diarrhea and vomiting is subsiding. I will continue her IV metronidazole and p.o. vancomycin. (2) Acute exacerbation of chronic obstructive pulmonary disease (COPD) Is this a current diagnosis for this admission?: Yes Plan: continue current regimen (3) Chronic a-fib Is this a current diagnosis for this admission?: Yes Plan: Last night patient had an episode of A. fib with RVR treated with Cardizem by on -call physician. (4) Type 2 diabetes mellitus Qualifiers: Diabetes mellitus group home insulin use: unspecified group home insulin use status Diabetes mellitus complication status: with unspecified complications Qualified Code(s): E11.8 - Type 2 diabetes mellitus with unspecified complications Is this a current diagnosis for this admission?: Yes Plan: Continue sliding scale, Accu-Chek before meals at bedtime (5) Coronary artery disease Qualifiers: Coronary Disease-Associated Artery/Lesion type: [place] artery Is this a current diagnosis for this admission?: Yes Plan: Patient does not have chest pain. We will continue her home medications. (6) Hypothyroidism (acquired) Is this a current diagnosis for this admission?: Yes Plan: Continue her Synthroid (7) Obstructive sleep apnea Is this a current diagnosis for this admission?: Yes Plan: Patient has been started on CPAP. (8) Hypertension Qualifiers: Hypertension type: essential hypertension Qualified Code(s): I10 - Essential (primary) hypertension Is this a current diagnosis for this admission?: Yes Plan: Continue her home medications. (9) Hyperlipidemia Qualifiers: Hyperlipidemia type: unspecified Qualified Code(s): E78.5 - Hyperlipidemia , unspecified Is this a current diagnosis for this admission?: Yes Plan: Continue her home medications.
--- NOTE | 2018-01-19 17:33 | PDOC PROGRESS REPORT ---
Subjective Progress Note for:: 01/19/18 Subjective:: no pains. + flatus. No diarrhea Reason For Visit: COPD EXACERBATION Physical Exam Vital Signs: Temp Pulse Resp BP Pulse Ox 98.1 F 75 20 132/62 H 96 01/19/18 16:09 01/19/18 16:11 01/19/18 16:11 01/19/18 16:09 01/19/18 16:11 Intake & Output 01/18/18 01/19/18 01/20/18 06:59 06:59 06:59 Intake Total 445 1700 Output Total 1050 600 350 Balance -605 1100 -350 Weight 88.6 kg Exam: abd is soft non tender. NGT small amount of drainage Results Laboratory Results: 01/19/18 06:26 01/19/18 06:26 01/19/18 01/19/18 06:26 06:26 WBC 16.4 H RBC 3.90 Hgb 10.8 L Hct 32.4 L MCV 83 MCH 27.8 MCHC 33.4 RDW 16.8 H Plt Count 197 Seg Neutrophils % 86.0 H Lymphocytes % 6.2 L Monocytes % 7.6 Eosinophils % 0.2 Basophils % 0.0 Absolute Neutrophils 14.1 H Absolute Lymphocytes 1.0 Absolute Monocytes 1.2 Absolute Eosinophils 0.0 Absolute Basophils 0.0 Sodium 144.3 Potassium 3.2 L Chloride 104 Carbon Dioxide 28 Anion Gap 12 BUN 17 Creatinine 0.94 Est GFR ( Amer) > 60 Est GFR (Non-Af Amer) 58 L Glucose 93 Calcium 8.8 01/13/18 19:12 Blood Blood Culture - Final NO GROWTH IN 5 DAYS 01/14/18 01/15/18 01/17/18 05:57 11:03 03:03 Creatine Kinase 32 CK-MB (CK-2) Troponin I 0.015 NT-Pro-B Natriuret Pep 416 01/17/18 01/17/18 01/17/18 03:03 09:19 09:19 Creatine Kinase 25 L CK-MB (CK-2) 1.31 0.90 Troponin I 0.069 0.057 NT-Pro-B Natriuret Pep 01/17/18 01/17/18 16:07 16:07 Creatine Kinase 73 CK-MB (CK-2) 2.16 Troponin I 0.059 NT-Pro-B Natriuret Pep Impressions: Abdomen/Pelvis CT 01/18/18 00:00 IMPRESSION: 1. Area of irregular high density along the inferior anterior stomach has an appearance suggestive of cyst hemorrhage possibly in the omentum. Please correlate with any recent trauma. Consider NG tube placement and short-term follow-up exam with IV contrast. Tumor is felt less likely as this was not present on the recent prior exam. 2. Diverticulosis. Chest X-Ray 01/18/18 00:00 IMPRESSION: Mild pulmonary vascular congestion 2010 [employer]- All Rights Reserved KUB X-Ray 01/18/18 04:32 IMPRESSION: NG tube in good position in the upper stomach. Assessment & Plan - Time Time Spent with patient: 15-24 minutes - Plan Summary Plan Summary: Benign abdomen at this time. OK to D/C NGT and start clears Continue mx of + C Diff Omental hemrrhage appears stable thoug WBC still elevated which may also be due to C Diff infection Will follow with you
[2018-01-19] MEDS: INSULIN LISPRO 100 UNIT/ML 3 ML VIAL SUBCUT PRN (18:42)
[2018-01-19] MEDS: FUROSEMIDE 20 MG TABLET NG SCH (18:43)
--- NOTE | 2018-01-19 23:01 | EKG REPORT ---
SEVERITY:- ABNORMAL ECG - SINUS TACHYCARDIA LVH WITH IVCD, LAD AND SECONDARY REPOL ABNRM : Confirmed by: Jung Olvera 19-Jan-2018 23:00:32
[2018-01-19] MEDS: SENNOSIDES/DOCUSATE 8.6-50 MG 1 EACH TABLET PO SCH (23:55)
[2018-01-19] MEDS: AZITHROMYCIN 250 MG TABLET NG SCH (23:56)
[2018-01-19] MEDS: MELATONIN 5 MG TABLET PO SCH (23:59)
[2018-01-20] MEDS: BACLOFEN 10 MG TABLET NG PRN (00:02)
[2018-01-20] MEDS: ACETAMINOPHEN 325 MG TABLET NG PRN ×2 (00:03→10:20)
[2018-01-20] MEDS: IPRATROPIUM/ALBUTEROL 0.5-2.5 MG/3 ML AMPUL NEB SCH ×5 (03:50→19:32)
[2018-01-20 05:32] LABS: HEMATOCRIT 28.6 % (36.0-47.0); HEMOGLOBIN 9.6 g/dL (12.0-15.5); MEAN CORPUSCULAR HEMOGLOBIN 27.9 pg (27.0-33.4); MEAN CORPUSCULAR HGB CONC 33.5 g/dL (32.0-36.0); MEAN CORPUSCULAR VOLUME 83 fl (80-97); PLATELET COUNT 180 10^3/uL (150-450); RED BLOOD COUNT 3.43 10^6/uL (3.72-5.28); RED CELL DISTRIBUTION WIDTH 16.6 % (11.5-14.0); WHITE BLOOD COUNT 12.5 10^3/uL (4.0-10.5)
[2018-01-20] MEDS: HYDRALAZINE HCL 25 MG TABLET PO SCH ×3 (05:48→23:03)
[2018-01-20] MEDS: DILTIAZEM HCL 60 MG TABLET NG SCH (05:48)
[2018-01-20] MEDS: METRONIDAZOLE 500 MG/NS RTU 500 MG/100 ML RTUPB IV SCH ×4 (06:07→23:01)
[2018-01-20] MEDS: LANSOPRAZOLE 30 MG TAB.RAP.DR PO SCH (06:07)
[2018-01-20] MEDS: VANCOMYCIN HCL INJ 500 MG VIAL NG SCH ×2 (06:07→12:14)
[2018-01-20] MEDS: PREGABALIN 75 MG CAPSULE PO SCH ×3 (06:08→23:02)
[2018-01-20] MEDS: OXYCODONE HCL IR 5 MG TABLET NG SCH ×2 (06:08→12:15)
[2018-01-20] MEDS: ACETYLCYSTEINE 10% NEB 400 MG/4 ML VIAL NEB SCH ×2 (08:24→19:32)
[2018-01-20] MEDS ORDERED: ERGOCALCIFEROL (VITAMIN D2) 50000 UNIT (1.25 MG) CAPSULE PO SCH (10:00)
[2018-01-20] MEDS: DOCUSATE SODIUM 100 MG CAPSULE PO SCH ×2 (10:06→17:44)
[2018-01-20] MEDS: POTASSIUM CHLORIDE 10 MEQ CAPSULE.ER PO SCH (10:14)
[2018-01-20] MEDS: FERROUS SULFATE 325 MG TABLET PO SCH ×2 (10:15→18:44)
[2018-01-20] MEDS: TAMSULOSIN HCL 0.4 MG CAP.SR.24H PO SCH (10:15)
[2018-01-20] MEDS: DULOXETINE HCL 30 MG CAPSULE.DR PO SCH (10:15)
[2018-01-20] MEDS: BUSPIRONE HCL 10 MG TABLET NG SCH (10:18)
[2018-01-20] MEDS: ASPIRIN 81 MG TABLET, CHEWABLE NG SCH (10:19)
[2018-01-20] MEDS: ASCORBIC ACID 500 MG TABLET NG SCH (10:19)
[2018-01-20] MEDS: FUROSEMIDE 40 MG TABLET NG SCH (10:19)
[2018-01-20] MEDS: FAMOTIDINE 20 MG TABLET NG SCH (10:19)
[2018-01-20] MEDS: METOPROLOL SUCCINATE 50 MG TAB.SR.24H PO SCH (10:20)
[2018-01-20] MEDS: LORATADINE 10 MG TABLET PO SCH (10:20)
[2018-01-20] MEDS: PANTOPRAZOLE SODIUM 40 MG VIAL IV SCH (10:21)
[2018-01-20] MEDS: POLYETHYLENE GLYCOL 3350 POWDER 17 GM/1 PACKET PO SCH (10:22)
[2018-01-20] MEDS: FLUTICASONE/SALMETEROL DISKUS 500-50 MCG/DOSE IH SCH ×2 (10:23→23:05)
[2018-01-20] MEDS: FLUTICASONE NASAL SPRAY 50 MCG/SPRY 120 SPRAY/16 GM NASL SCH (10:23)
[2018-01-20] MEDS: ROFLUMILAST 500 MCG TABLET PO SCH (10:24)
[2018-01-20] MEDS: LIDOCAINE 5% (700 MG) TRANSDERMAL ADH..PATCH TOP SCH (10:25)
[2018-01-20] MEDS: INSULIN DETEMIR 100 UNIT/ML 3 ML PEN SUBCUT SCH (10:26)
[2018-01-20] MEDS: RANOLAZINE 500 MG TAB.SR.12H PO SCH ×2 (10:27→23:01)
[2018-01-20] MEDS: PREDNISONE 20 MG TABLET PO SCH (12:14)
[2018-01-20 12:46] LABS: APPEARANCE,URINE SLIGHTLY-CLOUDY; BILIRUBIN,URINE NEGATIVE (NEGATIVE); CALCIUM OXALATE CRYSTALS,URINE FEW /HPF; COLOR,URINE AMBER; GLUCOSE, URINE NEGATIVE (NEGATIVE); KETONES,URINE NEGATIVE (NEGATIVE); LEUKOCYTE ESTERASE,URINE LARGE (NEGATIVE); NITRITE,URINE NEGATIVE (NEGATIVE); PROTEIN,URINE NEGATIVE (NEGATIVE); URINE SPECIFIC GRAVITY 1.016; UROBILINOGEN,URINE NEGATIVE mg/dL (<2.0)
[2018-01-20] MEDS ORDERED: BUTALB/ACETAMINOPHEN/CAFFEINE 1 TAB EACH PO PRN (15:00)
[2018-01-20] MEDS ORDERED: ACETAMINOPHEN 325 MG TABLET PO PRN (15:00)
[2018-01-20] MEDS ORDERED: BACLOFEN 10 MG TABLET PO PRN (15:00)
[2018-01-20] MEDS: TIOTROPIUM BROMIDE DPI 5 CAP/KIT (18 MCG/CAP) IH SCH (16:45)
[2018-01-20] MEDS: OXYCODONE HCL IR 5 MG TABLET PO SCH ×2 (18:39→23:16)
[2018-01-20] MEDS: ASCORBIC ACID 500 MG TABLET PO SCH (18:44)
[2018-01-20] MEDS: FUROSEMIDE 20 MG TABLET PO SCH (18:44)
[2018-01-20] MEDS: VANCOMYCIN HCL INJ 500 MG VIAL PO SCH ×2 (18:44→22:59)
--- NOTE | 2018-01-20 19:48 | PDOC PROGRESS REPORT ---
Subjective Progress Note for:: 01/20/18 Subjective:: Patient has been doing relatively better except for her deconditioning. Patient is basically bedbound. She is able to eat and tolerates well so I advanced her diet from clear liquid to solid diet. Her vomiting has subsided. Reason For Visit: COPD EXACERBATION Physical Exam Vital Signs: Temp Pulse Resp BP Pulse Ox 98.5 F 92 16 138/54 H 96 01/20/18 16:42 01/20/18 19:00 01/20/18 16:42 01/20/18 16:42 01/20/18 16:42 Intake & Output 01/19/18 01/20/18 01/21/18 06:59 06:59 06:59 Intake Total 1700 1800 1686 Output Total 675 198 2542 Balance 1100 1450 686 Results Laboratory Results: 01/20/18 03:47 01/19/18 06:26 01/20/18 01/20/18 01/20/18 03:47 09:55 12:00 WBC 12.5 H RBC 3.43 L Hgb 9.6 L Hct 28.6 L MCV 83 MCH 27.9 MCHC 33.5 RDW 16.6 H Plt Count 180 Urine Color GODFREY Urine Appearance SLIGHTLY-CLOUDY Urine pH 6.0 Ur Specific [place] 1.016 Urine Protein NEGATIVE Urine Glucose (UA) NEGATIVE Urine Ketones NEGATIVE Urine Blood NEGATIVE Urine Nitrite NEGATIVE Ur Leukocyte Esterase LARGE H Urine WBC (Auto) >182 Urine RBC (Auto) 5 Stool Occult Blood NEGATIVE 01/14/18 01/15/18 01/17/18 05:57 11:03 03:03 Creatine Kinase 32 CK-MB (CK-2) Troponin I 0.015 NT-Pro-B Natriuret Pep 416 01/17/18 01/17/18 01/17/18 03:03 09:19 09:19 Creatine Kinase 25 L CK-MB (CK-2) 1.31 0.90 Troponin I 0.069 0.057 NT-Pro-B Natriuret Pep 01/17/18 01/17/18 16:07 16:07 Creatine Kinase 73 CK-MB (CK-2) 2.16 Troponin I 0.059 NT-Pro-B Natriuret Pep Impressions: Abdomen/Pelvis CT 01/18/18 00:00 IMPRESSION: 1. Area of irregular high density along the inferior anterior stomach has an appearance suggestive of cyst hemorrhage possibly in the omentum. Please correlate with any recent trauma. Consider NG tube placement and short-term follow-up exam with IV contrast. Tumor is felt less likely as this was not present on the recent prior exam. 2. Diverticulosis. Chest X-Ray 01/18/18 00:00 IMPRESSION: Mild pulmonary vascular congestion 2010 [employer]- All Rights Reserved KUB X-Ray 01/18/18 04:32 IMPRESSION: NG tube in good position in the upper stomach. Assessment & Plan - Diagnosis (1) Clostridium difficile colitis Is this a current diagnosis for this admission?: Yes Plan: Continue IV metronidazole and p.o. vancomycin (2) Acute exacerbation of chronic obstructive pulmonary disease (COPD) Is this a current diagnosis for this admission?: Yes Plan: continue current regimen (3) Chronic a-fib Is this a current diagnosis for this admission?: Yes Plan: Last night patient had an episode of A. fib with RVR treated with Cardizem by on -call physician. (4) Type 2 diabetes mellitus Qualifiers: Diabetes mellitus manager long term care insulin use: unspecified manager long term care insulin use status Diabetes mellitus complication status: with unspecified complications Qualified Code(s): E11.8 - Type 2 diabetes mellitus with unspecified complications Is this a current diagnosis for this admission?: Yes Plan: Continue sliding scale, Accu-Chek before meals at bedtime (5) Coronary artery disease Qualifiers: Coronary Disease-Associated Artery/Lesion type: [place] artery Is this a current diagnosis for this admission?: Yes Plan: Patient does not have chest pain. We will continue her home medications. (6) Hypothyroidism (acquired) Is this a current diagnosis for this admission?: Yes Plan: Continue her Synthroid (7) Obstructive sleep apnea Is this a current diagnosis for this admission?: Yes Plan: Patient has been started on CPAP. (8) Hypertension Qualifiers: Hypertension type: essential hypertension Qualified Code(s): I10 - Essential (primary) hypertension Is this a current diagnosis for this admission?: Yes Plan: Continue her home medications. (9) Hyperlipidemia Qualifiers: Hyperlipidemia type: unspecified Qualified Code(s): E78.5 - Hyperlipidemia , unspecified Is this a current diagnosis for this admission?: Yes Plan: Continue her home medications.
--- NOTE | 2018-01-20 20:03 | PDOC PROGRESS REPORT ---
Subjective Progress Note for:: 01/20/18 Subjective:: Denies any abdominal pain at this time. Diarrhea improved. Reason For Visit: COPD EXACERBATION Physical Exam Vital Signs: Temp Pulse Resp BP Pulse Ox 98.5 F 92 16 138/54 H 96 01/20/18 16:42 01/20/18 19:00 01/20/18 16:42 01/20/18 16:42 01/20/18 16:42 Intake & Output 01/19/18 01/20/18 01/21/18 06:59 06:59 06:59 Intake Total 1700 1800 1686 Output Total 087 268 2542 Balance 1100 1450 686 General appearance: PRESENT: no acute distress, cooperative GI/Abdominal exam: PRESENT: other - Soft, nondistended, nontender to palpation. Results Laboratory Results: 01/20/18 03:47 01/19/18 06:26 01/20/18 01/20/18 01/20/18 03:47 09:55 12:00 WBC 12.5 H RBC 3.43 L Hgb 9.6 L Hct 28.6 L MCV 83 MCH 27.9 MCHC 33.5 RDW 16.6 H Plt Count 180 Urine Color GODFREY Urine Appearance SLIGHTLY-CLOUDY Urine pH 6.0 Ur Specific [place] 1.016 Urine Protein NEGATIVE Urine Glucose (UA) NEGATIVE Urine Ketones NEGATIVE Urine Blood NEGATIVE Urine Nitrite NEGATIVE Ur Leukocyte Esterase LARGE H Urine WBC (Auto) >182 Urine RBC (Auto) 5 Stool Occult Blood NEGATIVE 01/14/18 01/15/18 01/17/18 05:57 11:03 03:03 Creatine Kinase 32 CK-MB (CK-2) Troponin I 0.015 NT-Pro-B Natriuret Pep 416 01/17/18 01/17/18 01/17/18 03:03 09:19 09:19 Creatine Kinase 25 L CK-MB (CK-2) 1.31 0.90 Troponin I 0.069 0.057 NT-Pro-B Natriuret Pep 01/17/18 01/17/18 16:07 16:07 Creatine Kinase 73 CK-MB (CK-2) 2.16 Troponin I 0.059 NT-Pro-B Natriuret Pep Impressions: Abdomen/Pelvis CT 01/18/18 00:00 IMPRESSION: 1. Area of irregular high density along the inferior anterior stomach has an appearance suggestive of cyst hemorrhage possibly in the omentum. Please correlate with any recent trauma. Consider NG tube placement and short-term follow-up exam with IV contrast. Tumor is felt less likely as this was not present on the recent prior exam. 2. Diverticulosis. Chest X-Ray 01/18/18 00:00 IMPRESSION: Mild pulmonary vascular congestion 2010 [employer]- All Rights Reserved KUB X-Ray 01/18/18 04:32 IMPRESSION: NG tube in good position in the upper stomach. Assessment & Plan - Diagnosis (1) Clostridium difficile colitis Is this a current diagnosis for this admission?: Yes Plan: Improving. I see no indication for surgical intervention. Surgicalist service signing off. Call us for any problems.
--- NOTE | 2018-01-20 20:31 | PDOC PROGRESS REPORT ---
Subjective Progress Note for:: 01/20/18 Subjective:: Today patient is much improved. She is off NG tube. On questioning patient denied any chest pain. Today she seems more oriented. Reason For Visit: COPD EXACERBATION Physical Exam Vital Signs: Temp Pulse Resp BP Pulse Ox 98.5 F 92 16 138/54 H 96 01/20/18 16:42 01/20/18 19:00 01/20/18 16:42 01/20/18 16:42 01/20/18 16:42 Intake & Output 01/19/18 01/20/18 01/21/18 06:59 06:59 06:59 Intake Total 1700 1800 1686 Output Total 317 542 7831 Balance 1100 1450 686 Results Laboratory Results: 01/20/18 03:47 01/19/18 06:26 01/20/18 01/20/18 01/20/18 03:47 09:55 12:00 WBC 12.5 H RBC 3.43 L Hgb 9.6 L Hct 28.6 L MCV 83 MCH 27.9 MCHC 33.5 RDW 16.6 H Plt Count 180 Urine Color GODFREY Urine Appearance SLIGHTLY-CLOUDY Urine pH 6.0 Ur Specific [place] 1.016 Urine Protein NEGATIVE Urine Glucose (UA) NEGATIVE Urine Ketones NEGATIVE Urine Blood NEGATIVE Urine Nitrite NEGATIVE Ur Leukocyte Esterase LARGE H Urine WBC (Auto) >182 Urine RBC (Auto) 5 Stool Occult Blood NEGATIVE 01/14/18 01/15/18 01/17/18 05:57 11:03 03:03 Creatine Kinase 32 CK-MB (CK-2) Troponin I 0.015 NT-Pro-B Natriuret Pep 416 01/17/18 01/17/18 01/17/18 03:03 09:19 09:19 Creatine Kinase 25 L CK-MB (CK-2) 1.31 0.90 Troponin I 0.069 0.057 NT-Pro-B Natriuret Pep 01/17/18 01/17/18 16:07 16:07 Creatine Kinase 73 CK-MB (CK-2) 2.16 Troponin I 0.059 NT-Pro-B Natriuret Pep Impressions: Abdomen/Pelvis CT 01/18/18 00:00 IMPRESSION: 1. Area of irregular high density along the inferior anterior stomach has an appearance suggestive of cyst hemorrhage possibly in the omentum. Please correlate with any recent trauma. Consider NG tube placement and short-term follow-up exam with IV contrast. Tumor is felt less likely as this was not present on the recent prior exam. 2. Diverticulosis. Chest X-Ray 01/18/18 00:00 IMPRESSION: Mild pulmonary vascular congestion 2010 [employer]- All Rights Reserved KUB X-Ray 01/18/18 04:32 IMPRESSION: NG tube in good position in the upper stomach. Assessment & Plan - Diagnosis (1) Multifocal atrial tachycardia Is this a current diagnosis for this admission?: Yes (2) Acute exacerbation of chronic obstructive pulmonary disease (COPD) Is this a current diagnosis for this admission?: Yes (3) Coronary artery disease Qualifiers: Coronary Disease-Associated Artery/Lesion type: [place] artery Is this a current diagnosis for this admission?: Yes (4) Hyperlipidemia Qualifiers: Hyperlipidemia type: unspecified Qualified Code(s): E78.5 - Hyperlipidemia , unspecified Is this a current diagnosis for this admission?: Yes (5) Hypertension Qualifiers: Hypertension type: essential hypertension Qualified Code(s): I10 - Essential (primary) hypertension Is this a current diagnosis for this admission?: Yes (6) Type 2 diabetes mellitus Qualifiers: Diabetes mellitus long-term insulin use: unspecified lace mender insulin use status Diabetes mellitus complication status: with unspecified complications Qualified Code(s): E11.8 - Type 2 diabetes mellitus with unspecified complications Is this a current diagnosis for this admission?: Yes (7) Acute and chronic respiratory failure Qualifiers: Respiratory failure complication: hypoxia and hypercapnia Qualified Code(s) : J96.21 - Acute and chronic respiratory failure with hypoxia; J96.22 - Acute and chronic respiratory failure with hypercapnia; J96.22 - Acute and chronic respiratory failure with hypercapnia; J96.22 - Acute and chronic respiratory failure with hypercapnia Is this a current diagnosis for this admission?: Yes - Notes Notes: No new recommendations for today. Continue current management plans. Will follow with you. - Time Time with patient: 15-25 minutes Medications reviewed and adjusted accordingly: Yes
[2018-01-20] MEDS: FAMOTIDINE 20 MG TABLET PO SCH (23:01)
[2018-01-20] MEDS: MELATONIN 5 MG TABLET PO SCH (23:01)
[2018-01-20] MEDS: SENNOSIDES/DOCUSATE 8.6-50 MG 1 EACH TABLET PO SCH (23:01)
[2018-01-20] MEDS: DILTIAZEM HCL 60 MG TABLET PO SCH (23:02)
[2018-01-20] MEDS: BUSPIRONE HCL 10 MG TABLET PO SCH (23:02)
[2018-01-20] MEDS: PHARMACY COMMUNICATION ORDER MC SCH (23:27)
[2018-01-21] MEDS: IPRATROPIUM/ALBUTEROL 0.5-2.5 MG/3 ML AMPUL NEB SCH ×6 (00:01→19:55)
[2018-01-21] MEDS: RINGERS SOLUTION,LACTATED 1,000 ML IV PRN (05:29)
[2018-01-21] MEDS: DILTIAZEM HCL 60 MG TABLET PO SCH ×2 (05:30→14:59)
[2018-01-21] MEDS: HYDRALAZINE HCL 25 MG TABLET PO SCH ×2 (05:30→14:59)
[2018-01-21] MEDS: METRONIDAZOLE 500 MG/NS RTU 500 MG/100 ML RTUPB IV SCH ×3 (05:31→18:01)
[2018-01-21] MEDS: PREGABALIN 75 MG CAPSULE PO SCH ×2 (05:31→14:59)
[2018-01-21] MEDS: OXYCODONE HCL IR 5 MG TABLET PO SCH ×2 (05:31→11:20)
[2018-01-21] MEDS: LANSOPRAZOLE 30 MG TAB.RAP.DR PO SCH (05:32)
[2018-01-21] MEDS: VANCOMYCIN HCL INJ 500 MG VIAL PO SCH ×3 (05:32→18:01)
[2018-01-21 07:12] LABS: ABSOLUTE LYMPHOCYTES (AUTO) 0.8 10^3/uL (0.5-4.7); ABSOLUTE MONOCYTES (AUTO) 0.8 10^3/uL (0.1-1.4); ABSOLUTE NEUT (AUTO) 10.8 10^3/uL (1.7-8.2); BASOPHILS % (AUTO) 0.1 % (0-2); HEMATOCRIT 30.7 % (36.0-47.0); HEMOGLOBIN 10.1 g/dL (12.0-15.5); LYMPHOCYTES % (AUTO) 6.2 % (13-45); MEAN CORPUSCULAR HEMOGLOBIN 27.4 pg (27.0-33.4); MEAN CORPUSCULAR VOLUME 83 fl (80-97); MONOCYTES % (AUTO) 6.6 % (3-13); PLATELET COUNT 226 10^3/uL (150-450); RED CELL DISTRIBUTION WIDTH 16.9 % (11.5-14.0); SEGMENTED NEUTROPHILS % (AUTO) 87.1 % (42-78); TOTAL CELLS COUNTED % (AUTO) 100 %; WHITE BLOOD COUNT 12.4 10^3/uL (4.0-10.5)
[2018-01-21] MEDS: ACETYLCYSTEINE 10% NEB 400 MG/4 ML VIAL NEB SCH ×2 (08:22→19:55)
[2018-01-21] MEDS: FAMOTIDINE 20 MG TABLET PO SCH (10:26)
[2018-01-21] MEDS: BUSPIRONE HCL 10 MG TABLET PO SCH (10:26)
[2018-01-21] MEDS: TAMSULOSIN HCL 0.4 MG CAP.SR.24H PO SCH (10:27)
[2018-01-21] MEDS: POTASSIUM CHLORIDE 10 MEQ CAPSULE.ER PO SCH (10:27)
[2018-01-21] MEDS: ASCORBIC ACID 500 MG TABLET PO SCH ×2 (10:27→18:01)
[2018-01-21] MEDS: FUROSEMIDE 40 MG TABLET PO SCH (10:27)
[2018-01-21] MEDS: FERROUS SULFATE 325 MG TABLET PO SCH ×2 (10:27→18:01)
[2018-01-21] MEDS: ASPIRIN 81 MG TABLET, CHEWABLE PO SCH (10:27)
[2018-01-21] MEDS: DULOXETINE HCL 30 MG CAPSULE.DR PO SCH (10:28)
[2018-01-21] MEDS: FLUTICASONE NASAL SPRAY 50 MCG/SPRY 120 SPRAY/16 GM NASL SCH (10:29)
[2018-01-21] MEDS: LORATADINE 10 MG TABLET PO SCH (10:29)
[2018-01-21] MEDS: METOPROLOL SUCCINATE 50 MG TAB.SR.24H PO SCH (10:29)
[2018-01-21] MEDS: FLUTICASONE/SALMETEROL DISKUS 500-50 MCG/DOSE IH SCH (10:30)
[2018-01-21] MEDS: TIOTROPIUM BROMIDE DPI 5 CAP/KIT (18 MCG/CAP) IH SCH (10:30)
[2018-01-21] MEDS: ROFLUMILAST 500 MCG TABLET PO SCH (10:31)
[2018-01-21] MEDS: DOCUSATE SODIUM 100 MG CAPSULE PO SCH ×2 (10:31→17:40)
[2018-01-21] MEDS: RANOLAZINE 500 MG TAB.SR.12H PO SCH (10:32)
[2018-01-21] MEDS: POLYETHYLENE GLYCOL 3350 POWDER 17 GM/1 PACKET PO SCH (10:32)
[2018-01-21] MEDS: LIDOCAINE 5% (700 MG) TRANSDERMAL ADH..PATCH TOP SCH (10:32)
[2018-01-21] MEDS: INSULIN DETEMIR 100 UNIT/ML 3 ML PEN SUBCUT SCH (10:32)
[2018-01-21] MEDS: FENTANYL 25 MCG/HR PATCH.TD72 TD SCH (10:33)
[2018-01-21] MEDS: PREDNISONE 20 MG TABLET PO SCH (11:20)
[2018-01-21] MEDS: FUROSEMIDE 20 MG TABLET PO SCH (18:02)
[2018-01-21] MEDS: PROMETHAZINE HCL INJ 25 MG/1 ML VIAL IV PRN (18:11)
--- NOTE | 2018-01-21 18:44 | PDOC PROGRESS REPORT ---
Subjective Progress Note for:: 01/21/18 Subjective:: I seen patient awake alert oriented. She complains of 3 episodes of watery diarrhea. Patient has been on vancomycin and Flagyl for C. difficile colitis. Otherwise her blood works are relatively stable. Reason For Visit: COPD EXACERBATION Physical Exam Vital Signs: Temp Pulse Resp BP Pulse Ox 98 F 85 16 152/62 H 100 01/21/18 16:00 01/21/18 16:04 01/21/18 16:04 01/21/18 16:00 01/21/18 16:04 Intake & Output 01/20/18 01/21/18 01/22/18 06:59 06:59 06:59 Intake Total 1800 2906 1653 Output Total 350 2500 1600 Balance 1450 406 53 Weight 94.9 kg General appearance: PRESENT: no acute distress Mouth exam: PRESENT: moist Neck exam: ABSENT: carotid bruit, JVD, lymphadenopathy, thyromegaly Respiratory exam: PRESENT: crackles, rhonchi. ABSENT: rales, wheezes Cardiovascular exam: PRESENT: RRR. ABSENT: diastolic murmur, rubs, systolic murmur GI/Abdominal exam: PRESENT: normal bowel sounds, soft. ABSENT: distended, guarding, mass, organolmegaly, rebound, tenderness Neurological exam: PRESENT: alert, awake Results Laboratory Results: 01/21/18 05:55 01/19/18 06:26 01/21/18 05:55 WBC 12.4 H RBC 3.70 L Hgb 10.1 L Hct 30.7 L MCV 83 MCH 27.4 MCHC 33.0 RDW 16.9 H Plt Count 226 Seg Neutrophils % 87.1 H Lymphocytes % 6.2 L Monocytes % 6.6 Eosinophils % 0.0 Basophils % 0.1 Absolute Neutrophils 10.8 H Absolute Lymphocytes 0.8 Absolute Monocytes 0.8 Absolute Eosinophils 0.0 Absolute Basophils 0.0 01/14/18 01/15/18 01/17/18 05:57 11:03 03:03 Creatine Kinase 32 CK-MB (CK-2) Troponin I 0.015 NT-Pro-B Natriuret Pep 416 01/17/18 01/17/18 01/17/18 03:03 09:19 09:19 Creatine Kinase 25 L CK-MB (CK-2) 1.31 0.90 Troponin I 0.069 0.057 NT-Pro-B Natriuret Pep 01/17/18 01/17/18 16:07 16:07 Creatine Kinase 73 CK-MB (CK-2) 2.16 Troponin I 0.059 NT-Pro-B Natriuret Pep Impressions: Abdomen/Pelvis CT 01/18/18 00:00 IMPRESSION: 1. Area of irregular high density along the inferior anterior stomach has an appearance suggestive of cyst hemorrhage possibly in the omentum. Please correlate with any recent trauma. Consider NG tube placement and short-term follow-up exam with IV contrast. Tumor is felt less likely as this was not present on the recent prior exam. 2. Diverticulosis. Chest X-Ray 01/18/18 00:00 IMPRESSION: Mild pulmonary vascular congestion 2010 [employer]- All Rights Reserved KUB X-Ray 01/18/18 04:32 IMPRESSION: NG tube in good position in the upper stomach. Assessment & Plan - Diagnosis (1) Clostridium difficile colitis Is this a current diagnosis for this admission?: Yes Plan: Continue current regimen (2) Acute exacerbation of chronic obstructive pulmonary disease (COPD) Is this a current diagnosis for this admission?: Yes (3) Chronic a-fib Is this a current diagnosis for this admission?: Yes Plan: Last night patient had an episode of A. fib with RVR treated with Cardizem by on -call physician. 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 We will continue her home medications. (6) Hypothyroidism (acquired) Is this a current diagnosis for this admission?: Yes Plan: Continue her Synthroid (7) Obstructive sleep apnea Is this a current diagnosis for this admission?: Yes Plan: Patient has been started on CPAP. (8) Hypertension Qualifiers: Hypertension type: essential hypertension Qualified Code(s): I10 - Essential (primary) hypertension Is this a current diagnosis for this admission?: Yes Plan: Continue her home medications. (9) Hyperlipidemia Qualifiers: Hyperlipidemia type: unspecified Qualified Code(s): E78.5 - Hyperlipidemia , unspecified Is this a current diagnosis for this admission?: Yes Plan: Continue her home medications.
--- NOTE | 2018-01-21 19:29 | PDOC PROGRESS REPORT ---
Subjective Progress Note for:: 01/21/18 Subjective:: Today patient is much improved. She is off NG tube. On questioning patient denied any chest pain. Today she seems more oriented. Patient has been noted to have some diarrhea. Cardiac espinosa she remains stable with frequent APCs but no atrial fibrillation. Reason For Visit: COPD EXACERBATION Physical Exam Vital Signs: Temp Pulse Resp BP Pulse Ox 98 F 85 16 152/62 H 100 01/21/18 16:00 01/21/18 16:04 01/21/18 16:04 01/21/18 16:00 01/21/18 16:04 Intake & Output 01/20/18 01/21/18 01/22/18 06:59 06:59 06:59 Intake Total 1800 2906 1653 Output Total 350 2500 1600 Balance 1450 406 53 Weight 94.9 kg Exam: GENERAL: well-nourished and in no acute distress. Alert and oriented x3 HEAD: Atraumatic, normocephalic. EYES: Pupils equal round and reactive to light, extraocular movements intact, sclera anicteric, conjunctiva are normal. ENT: TMs normal, nares patent, oropharynx clear without exudates. Moist mucous membranes. No oral ulcerations or bleeding gums noted NECK: supple without lymphadenopathy. Trachea is central. No cervical or axillary lymphadenopathy noted. Carotids are 2+, JVD WNL LUNGS: Respiration seems nonlabored, no significant accessory muscle action noted. Breath sounds clear to auscultation bilaterally and equal noted. No wheezes rales or rhonchi noted. No significant dullness noted on percussion. CHEST: Palpation of the chest wall shows no significant chest wall tenderness. 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 ABDOMEN: Soft, no significant tenderness appreciated, normoactive bowel sounds. No guarding, no rebound. No rigidity noted . No masses appreciated. EXTREMITIES: Pedal pulses are 1-2+, no calf tenderness noted. No clubbing or cyanosis. negative pedal edema noted NEUROLOGICAL: Focused neurological exam showed no significant neurologic deficit. Normal speech, no focal weakness appreciated. PSYCH: Normal mood, normal affect. Judgment and insight within normal limits. SKIN: No significant ecchymosis, skin is noted to be warm. MUSCULOSKELETAL EXAM: No significant acute joint swelling noted. Results Laboratory Results: 01/21/18 05:55 01/19/18 06:26 01/21/18 05:55 WBC 12.4 H RBC 3.70 L Hgb 10.1 L Hct 30.7 L MCV 83 MCH 27.4 MCHC 33.0 RDW 16.9 H Plt Count 226 Seg Neutrophils % 87.1 H Lymphocytes % 6.2 L Monocytes % 6.6 Eosinophils % 0.0 Basophils % 0.1 Absolute Neutrophils 10.8 H Absolute Lymphocytes 0.8 Absolute Monocytes 0.8 Absolute Eosinophils 0.0 Absolute Basophils 0.0 01/14/18 01/15/18 01/17/18 05:57 11:03 03:03 Creatine Kinase 32 CK-MB (CK-2) Troponin I 0.015 NT-Pro-B Natriuret Pep 416 01/17/18 01/17/18 01/17/18 03:03 09:19 09:19 Creatine Kinase 25 L CK-MB (CK-2) 1.31 0.90 Troponin I 0.069 0.057 NT-Pro-B Natriuret Pep 01/17/18 01/17/18 16:07 16:07 Creatine Kinase 73 CK-MB (CK-2) 2.16 Troponin I 0.059 NT-Pro-B Natriuret Pep EKG Comments: Telemetry shows sinus rhythm with frequent APCs but no significant tachycardia or bradycardia noted. Impressions: Abdomen/Pelvis CT 01/18/18 00:00 IMPRESSION: 1. Area of irregular high density along the inferior anterior stomach has an appearance suggestive of cyst hemorrhage possibly in the omentum. Please correlate with any recent trauma. Consider NG tube placement and short-term follow-up exam with IV contrast. Tumor is felt less likely as this was not present on the recent prior exam. 2. Diverticulosis. Chest X-Ray 01/18/18 00:00 IMPRESSION: Mild pulmonary vascular congestion 2010 [employer]- All Rights Reserved KUB X-Ray 01/18/18 04:32 IMPRESSION: NG tube in good position in the upper stomach. Assessment & Plan - Diagnosis (1) Multifocal atrial tachycardia Is this a current diagnosis for this admission?: Yes (2) Acute exacerbation of chronic obstructive pulmonary disease (COPD) Is this a current diagnosis for this admission?: Yes (3) Coronary artery disease Qualifiers: Coronary Disease-Associated Artery/Lesion type: [place] artery Is this a current diagnosis for this admission?: Yes (4) Hyperlipidemia Qualifiers: Hyperlipidemia type: unspecified Qualified Code(s): E78.5 - Hyperlipidemia , unspecified Is this a current diagnosis for this admission?: Yes (5) Hypertension Qualifiers: Hypertension type: essential hypertension Qualified Code(s): I10 - Essential (primary) hypertension Is this a current diagnosis for this admission?: Yes (6) Type 2 diabetes mellitus Qualifiers: Diabetes mellitus shelter insulin use: unspecified shelter insulin use status Diabetes mellitus complication status: with unspecified complications Qualified Code(s): E11.8 - Type 2 diabetes mellitus with unspecified complications Is this a current diagnosis for this admission?: Yes (7) Acute and chronic respiratory failure Qualifiers: Respiratory failure complication: hypoxia and hypercapnia Qualified Code(s) : J96.21 - Acute and chronic respiratory failure with hypoxia; J96.22 - Acute and chronic respiratory failure with hypercapnia; J96.22 - Acute and chronic respiratory failure with hypercapnia; J96.22 - Acute and chronic respiratory failure with hypercapnia Is this a current diagnosis for this admission?: Yes - Notes Notes: Patient's medications were reviewed. Recommend that patient be placed on Cardizem CD 120 mg p.o. twice daily or Cardizem CD 180 mg p.o. daily as this will improve compliance at home. Patient has been stable from cardiac standpoint. Will therefore sign off. Please reconsult if needed. - Time Time with patient: 15-25 minutes - CODE STATUS : was discussed, patient remains DO NOT RESUSCITATE. Surrogate decision-maker unchanged. Multiple medical problems were addressed. More than 50% of the time spent coordinating care, discussing management plans with involved caregivers. Management plans discussed with involved personnels. Medical decision making was of moderate to high complexity, patient's has multiple comorbidities. Medications reviewed and adjusted accordingly: Yes
[2018-01-21] MEDS: SENNOSIDES/DOCUSATE 8.6-50 MG 1 EACH TABLET PO SCH (23:55)
[2018-01-21] MEDS: PHARMACY COMMUNICATION ORDER MC SCH (23:56)
[2018-01-22] MEDS: FLUTICASONE/SALMETEROL DISKUS 500-50 MCG/DOSE IH SCH ×3 (00:10→22:30)
[2018-01-22] MEDS: HYDRALAZINE HCL 25 MG TABLET PO SCH ×4 (00:11→22:30)
[2018-01-22] MEDS: BUSPIRONE HCL 10 MG TABLET PO SCH ×3 (00:12→22:31)
[2018-01-22] MEDS: PREGABALIN 75 MG CAPSULE PO SCH ×4 (00:13→22:32)
[2018-01-22] MEDS: DILTIAZEM HCL 60 MG TABLET PO SCH ×4 (00:13→22:31)
[2018-01-22] MEDS: MELATONIN 5 MG TABLET PO SCH ×2 (00:13→22:32)
[2018-01-22] MEDS: RANOLAZINE 500 MG TAB.SR.12H PO SCH ×3 (00:13→22:32)
[2018-01-22] MEDS: VANCOMYCIN HCL INJ 500 MG VIAL PO SCH ×4 (00:14→18:03)
[2018-01-22] MEDS: FAMOTIDINE 20 MG TABLET PO SCH ×3 (00:14→22:32)
[2018-01-22] MEDS: METRONIDAZOLE 500 MG/NS RTU 500 MG/100 ML RTUPB IV SCH ×4 (00:14→18:00)
[2018-01-22] MEDS: IPRATROPIUM/ALBUTEROL 0.5-2.5 MG/3 ML AMPUL NEB SCH ×6 (00:17→19:50)
[2018-01-22] MEDS ORDERED: OXYCODONE HCL IR 5 MG TABLET PO ONE (04:30)
[2018-01-22] MEDS: RINGERS SOLUTION,LACTATED 1,000 ML IV PRN (05:30)
[2018-01-22] MEDS: LANSOPRAZOLE 30 MG TAB.RAP.DR PO SCH (05:31)
[2018-01-22 05:52] LABS: ABSOLUTE NEUT (AUTO) 8.9 10^3/uL (1.7-8.2); EOSINOPHILS % (AUTO) 0.1 % (0-6); HEMATOCRIT 30.5 % (36.0-47.0); HEMOGLOBIN 10.2 g/dL (12.0-15.5); LYMPHOCYTES % (AUTO) 8.8 % (13-45); MEAN CORPUSCULAR HGB CONC 33.6 g/dL (32.0-36.0); MEAN CORPUSCULAR VOLUME 83 fl (80-97); PLATELET COUNT 239 10^3/uL (150-450); RED BLOOD COUNT 3.66 10^6/uL (3.72-5.28); RED CELL DISTRIBUTION WIDTH 17.1 % (11.5-14.0); SEGMENTED NEUTROPHILS % (AUTO) 82.1 % (42-78); TOTAL CELLS COUNTED % (AUTO) 100 %; WHITE BLOOD COUNT 10.8 10^3/uL (4.0-10.5)
[2018-01-22 06:22] LABS: ANION GAP 11 (5-19); BLOOD UREA NITROGEN 15 mg/dL (7-20); CALCIUM 8.6 mg/dL (8.4-10.2); CARBON DIOXIDE 27 mmol/L (22-30); CHLORIDE 106 mmol/L (98-107); GLUCOSE 92 mg/dL (75-110); POTASSIUM 3.6 mmol/L (3.6-5.0); SODIUM 143.9 mmol/L (137-145)
[2018-01-22] MEDS: ACETYLCYSTEINE 10% NEB 400 MG/4 ML VIAL NEB SCH ×2 (08:08→19:49)
[2018-01-22] MEDS: LORATADINE 10 MG TABLET PO SCH (09:50)
[2018-01-22] MEDS: FERROUS SULFATE 325 MG TABLET PO SCH ×2 (09:50→17:59)
[2018-01-22] MEDS: TAMSULOSIN HCL 0.4 MG CAP.SR.24H PO SCH (09:50)
[2018-01-22] MEDS: ASPIRIN 81 MG TABLET, CHEWABLE PO SCH (09:50)
[2018-01-22] MEDS: DULOXETINE HCL 30 MG CAPSULE.DR PO SCH (09:50)
[2018-01-22] MEDS: POTASSIUM CHLORIDE 10 MEQ CAPSULE.ER PO SCH (09:51)
[2018-01-22] MEDS: FUROSEMIDE 40 MG TABLET PO SCH (09:51)
[2018-01-22] MEDS: ASCORBIC ACID 500 MG TABLET PO SCH ×2 (09:51→18:00)
[2018-01-22] MEDS: METOPROLOL SUCCINATE 50 MG TAB.SR.24H PO SCH (09:51)
[2018-01-22] MEDS: LIDOCAINE 5% (700 MG) TRANSDERMAL ADH..PATCH TOP SCH (09:51)
[2018-01-22] MEDS: FLUTICASONE NASAL SPRAY 50 MCG/SPRY 120 SPRAY/16 GM NASL SCH (09:52)
[2018-01-22] MEDS: INSULIN DETEMIR 100 UNIT/ML 3 ML PEN SUBCUT SCH (09:52)
[2018-01-22] MEDS: TIOTROPIUM BROMIDE DPI 5 CAP/KIT (18 MCG/CAP) IH SCH (09:53)
[2018-01-22] MEDS: POLYETHYLENE GLYCOL 3350 POWDER 17 GM/1 PACKET PO SCH (09:54)
[2018-01-22] MEDS: DOCUSATE SODIUM 100 MG CAPSULE PO SCH ×2 (09:56→17:25)
[2018-01-22] MEDS: ROFLUMILAST 500 MCG TABLET PO SCH (10:41)
--- NOTE | 2018-01-22 11:18 | RADIOLOGY REPORT (SQ) ---
EXAM DESCRIPTION: CHEST SINGLE VIEW COMPLETED DATE/TIME: 01/22/2018 10:39 am REASON FOR STUDY: pna COMPARISON: 01/18/2018 NUMBER OF VIEWS: One view. TECHNIQUE: Single frontal radiographic view of the chest acquired. LIMITATIONS: None. FINDINGS: LUNGS AND PLEURA: No opacities, masses or pneumothorax. A small left-sided pleural effusi on may be present. MEDIASTINUM AND HILAR STRUCTURES: No masses or contour abnormality. HEART AND VASCULATURE: Cardiac enlargement. Vascular congestion. BONES: No acute findings. Stable right proximal humerus osteolysis and left proximal humerus flatten ing. HARDWARE: None in the chest. OTHER: No other significant finding. IMPRESSION: Stable radiographic appearance of the chest demonstrating cardiomegaly and central vascu lar congestion suggesting CHF exacerbation. Superimposed infectious process is not excluded. TECHNICAL DOCUMENTATION: JOB ID: [id number] [email or web address]- All Rights Reserved Reading location - IP/workstation name: [email or web address]
[2018-01-22] MEDS: PREDNISONE 20 MG TABLET PO SCH (11:57)
[2018-01-22] MEDS: OXYCODONE HCL IR 5 MG TABLET PO SCH ×2 (11:57→18:00)
[2018-01-22] MEDS: FUROSEMIDE 20 MG TABLET PO SCH (18:00)
--- NOTE | 2018-01-22 18:45 | PDOC PROGRESS REPORT ---
Subjective Progress Note for:: 01/22/18 Subjective:: There is no significant improvement in her condition. Patient has extensive medical problems and comorbidities and she is also bedbound. I consulted palliative care for possible hospice placement. Reason For Visit: COPD EXACERBATION Physical Exam Vital Signs: Temp Pulse Resp BP Pulse Ox 98.0 F 87 20 152/79 H 98 01/22/18 15:38 01/22/18 16:27 01/22/18 16:27 01/22/18 15:38 01/22/18 16:27 Intake & Output 01/21/18 01/22/18 01/23/18 06:59 06:59 06:59 Intake Total 2906 3828 1823 Output Total 2500 2900 1000 Balance 406 928 823 Weight 94.9 kg 204.5 kg General appearance: PRESENT: other - Mild to moderate distress Head exam: PRESENT: atraumatic Eye exam: PRESENT: conjunctiva pink Mouth exam: PRESENT: dry mucosa Respiratory exam: PRESENT: crackles, prolonged expiratory phas, rhonchi Cardiovascular exam: PRESENT: RRR. ABSENT: diastolic murmur, rubs, systolic murmur GI/Abdominal exam: PRESENT: normal bowel sounds, soft. ABSENT: distended, guarding, mass, organolmegaly, rebound, tenderness Results Laboratory Results: 01/22/18 05:22 01/22/18 05:22 01/22/18 01/22/18 05:22 05:22 WBC 10.8 H RBC 3.66 L Hgb 10.2 L Hct 30.5 L MCV 83 MCH 28.0 MCHC 33.6 RDW 17.1 H Plt Count 239 Seg Neutrophils % 82.1 H Lymphocytes % 8.8 L Monocytes % 9.0 Eosinophils % 0.1 Basophils % 0.0 Absolute Neutrophils 8.9 H Absolute Lymphocytes 1.0 Absolute Monocytes 1.0 Absolute Eosinophils 0.0 Absolute Basophils 0.0 Sodium 143.9 Potassium 3.6 Chloride 106 Carbon Dioxide 27 Anion Gap 11 BUN 15 Creatinine 0.85 Est GFR ( Amer) > 60 Est GFR (Non-Af Amer) > 60 Glucose 92 Calcium 8.6 01/14/18 01/15/18 01/17/18 05:57 11:03 03:03 Creatine Kinase 32 CK-MB (CK-2) Troponin I 0.015 NT-Pro-B Natriuret Pep 416 01/17/18 01/17/18 01/17/18 03:03 09:19 09:19 Creatine Kinase 25 L CK-MB (CK-2) 1.31 0.90 Troponin I 0.069 0.057 NT-Pro-B Natriuret Pep 01/17/18 01/17/18 16:07 16:07 Creatine Kinase 73 CK-MB (CK-2) 2.16 Troponin I 0.059 NT-Pro-B Natriuret Pep Impressions: Abdomen/Pelvis CT 01/18/18 00:00 IMPRESSION: 1. Area of irregular high density along the inferior anterior stomach has an appearance suggestive of cyst hemorrhage possibly in the omentum. Please correlate with any recent trauma. Consider NG tube placement and short-term follow-up exam with IV contrast. Tumor is felt less likely as this was not present on the recent prior exam. 2. Diverticulosis. KUB X-Ray 01/18/18 04:32 IMPRESSION: NG tube in good position in the upper stomach. Chest X-Ray 01/22/18 00:00 IMPRESSION: Stable radiographic appearance of the chest demonstrating cardiomegaly and central vascular congestion suggesting CHF exacerbation. Superimposed infectious process is not excluded. Assessment & Plan - Diagnosis (1) Acute on chronic systolic heart failure, NYHA class 4 Is this a current diagnosis for this admission?: Yes Plan: I will change her Lasix to IV. (2) Clostridium difficile colitis Is this a current diagnosis for this admission?: Yes Plan: Continue current regimen (3) Acute exacerbation of chronic obstructive pulmonary disease (COPD) Is this a current diagnosis for this admission?: Yes Plan: continue current regimen (4) Chronic a-fib Is this a current diagnosis for this admission?: Yes Plan: Last night patient had an episode of A. fib with RVR treated with Cardizem by on -call physician. 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 We will continue her home medications. (7) Hypothyroidism (acquired) Is this a current diagnosis for this admission?: Yes Plan: Continue her Synthroid (8) Obstructive sleep apnea Is this a current diagnosis for this admission?: Yes Plan: Patient has been started on CPAP. (9) Hypertension Qualifiers: Hypertension type: essential hypertension Qualified Code(s): I10 - Essential (primary) hypertension Is this a current diagnosis for this admission?: Yes Plan: Continue her home medications. (10) Hyperlipidemia Qualifiers: Hyperlipidemia type: unspecified Qualified Code(s): E78.5 - Hyperlipidemia , unspecified Is this a current diagnosis for this admission?: Yes Plan: Continue her home medications.
[2018-01-22] MEDS ORDERED: FUROSEMIDE INJ/PF 40 MG/4 ML SDV IV ONE (20:00)
[2018-01-22] MEDS: SENNOSIDES/DOCUSATE 8.6-50 MG 1 EACH TABLET PO SCH (22:32)
[2018-01-22] MEDS: PHARMACY COMMUNICATION ORDER MC SCH (22:34)
[2018-01-23] MEDS: IPRATROPIUM/ALBUTEROL 0.5-2.5 MG/3 ML AMPUL NEB SCH ×5 (00:03→16:07)
[2018-01-23] MEDS: METRONIDAZOLE 500 MG/NS RTU 500 MG/100 ML RTUPB IV SCH ×2 (02:15→06:33)
[2018-01-23] MEDS: VANCOMYCIN HCL INJ 500 MG VIAL PO SCH ×3 (02:15→16:11)
[2018-01-23] MEDS: OXYCODONE HCL IR 5 MG TABLET PO SCH ×3 (02:23→16:10)
[2018-01-23] MEDS: HYDRALAZINE HCL 25 MG TABLET PO SCH (06:31)
[2018-01-23] MEDS: PREGABALIN 75 MG CAPSULE PO SCH ×2 (06:31→16:12)
[2018-01-23] MEDS: LANSOPRAZOLE 30 MG TAB.RAP.DR PO SCH (06:31)
[2018-01-23] MEDS: DILTIAZEM HCL 60 MG TABLET PO SCH ×2 (06:32→16:07)
[2018-01-23] MEDS: FUROSEMIDE INJ/PF 40 MG/4 ML SDV IV SCH ×2 (06:39→16:05)
[2018-01-23] MEDS: RINGERS SOLUTION,LACTATED 1,000 ML IV PRN (06:47)
[2018-01-23] MEDS: PROMETHAZINE HCL 25 MG TABLET PO PRN (06:47)
[2018-01-23] MEDS: ACETYLCYSTEINE 10% NEB 400 MG/4 ML VIAL NEB SCH (08:34)
[2018-01-23] MEDS: FLUTICASONE/SALMETEROL DISKUS 500-50 MCG/DOSE IH SCH (09:26)
[2018-01-23] MEDS: BUSPIRONE HCL 10 MG TABLET PO SCH (09:27)
[2018-01-23] MEDS: RANOLAZINE 500 MG TAB.SR.12H PO SCH (09:27)
[2018-01-23] MEDS: DULOXETINE HCL 30 MG CAPSULE.DR PO SCH (09:27)
[2018-01-23] MEDS: POTASSIUM CHLORIDE 10 MEQ CAPSULE.ER PO SCH (09:27)
[2018-01-23] MEDS: ROFLUMILAST 500 MCG TABLET PO SCH (09:27)
[2018-01-23] MEDS: FERROUS SULFATE 325 MG TABLET PO SCH (09:27)
[2018-01-23] MEDS: TAMSULOSIN HCL 0.4 MG CAP.SR.24H PO SCH (09:27)
[2018-01-23] MEDS: FAMOTIDINE 20 MG TABLET PO SCH (09:27)
[2018-01-23] MEDS: METOPROLOL SUCCINATE 50 MG TAB.SR.24H PO SCH (09:28)
[2018-01-23] MEDS: ASPIRIN 81 MG TABLET, CHEWABLE PO SCH (09:28)
[2018-01-23] MEDS: ASCORBIC ACID 500 MG TABLET PO SCH (09:28)
[2018-01-23] MEDS: LIDOCAINE 5% (700 MG) TRANSDERMAL ADH..PATCH TOP SCH (09:28)
[2018-01-23] MEDS: INSULIN DETEMIR 100 UNIT/ML 3 ML PEN SUBCUT SCH (09:29)
[2018-01-23] MEDS: DOCUSATE SODIUM 100 MG CAPSULE PO SCH (09:30)
[2018-01-23] MEDS: FLUTICASONE NASAL SPRAY 50 MCG/SPRY 120 SPRAY/16 GM NASL SCH (09:30)
[2018-01-23] MEDS: LORATADINE 10 MG TABLET PO SCH (09:30)
[2018-01-23] MEDS: TIOTROPIUM BROMIDE DPI 5 CAP/KIT (18 MCG/CAP) IH SCH (09:31)
[2018-01-23] MEDS: POLYETHYLENE GLYCOL 3350 POWDER 17 GM/1 PACKET PO SCH (09:33)
--- NOTE | 2018-01-23 10:06 | PDOC TRANSFER SUMMARY ---
General - Admit/Disc Date/PCP Admission Date/Primary Care Provider: 01/13/18 18:41 GILBERT CASTANEDA, Discharge Date: 01/23/18 - Discharge Diagnosis (1) Acute on chronic systolic heart failure, NYHA class 4 Is this a current diagnosis for this admission?: Yes (2) Clostridium difficile colitis Is this a current diagnosis for this admission?: Yes (3) Acute exacerbation of chronic obstructive pulmonary disease (COPD) Is this a current diagnosis for this admission?: Yes (4) Chronic a-fib Is this a current diagnosis for this admission?: Yes (5) Type 2 diabetes mellitus Is this a current diagnosis for this admission?: Yes (6) Coronary artery disease Is this a current diagnosis for this admission?: Yes (7) Hypothyroidism (acquired) Is this a current diagnosis for this admission?: Yes (8) Obstructive sleep apnea Is this a current diagnosis for this admission?: Yes (9) Hypertension Is this a current diagnosis for this admission?: Yes (10) Hyperlipidemia Is this a current diagnosis for this admission?: Yes - Additional Information Resuscitation Status: Do Not Resuscitate Prescriptions: Metronidazole [Flagyl 500 mg Tablet] 500 mg PO TID #30 tablet Vancomycin HCl [Vancocin Inj 500 mg Vial] 250 mg PO Q6 #40 vial Home Medications: Acetaminophen [Tylenol 325 mg Tablet] 650 mg PO Q4HP PRN 09/09/17 Acetylcysteine [Mucomist 10% Neb 400 mg/4 mL Vial] 400 mg NEB RTQ6 09/09/17 Albuterol Sulfate [Proair HFA Inhalation Aerosol 8.5 gm MDI] 2 puff IH Q6HP PRN 09/09/17 Ascorbic Acid [Vitamin C 500 mg Tablet] 500 mg PO BID 09/09/17 Aspirin [Aspirin 81 mg Chewable Tablet] 81 mg PO DAILY 09/09/17 Baclofen [Baclofen 10 mg Tablet] 10 mg PO Q8HP PRN 09/09/17 Benzocaine/Menthol [Chloraseptic Sore Throat Lozenge] 1 ru PO Q1HP PRN Benzonatate [Tessalon Perles 100 mg Capsule] 200 mg PO Q8HP PRN 09/09/17 Biotin [Biotin 1 mg Tablet] 1 mg PO DAILYP PRN 09/09/17 Budesonide [Pulmicort 180 mcg Flexhaler] 2 puff IH Q12 09/09/17 Buspirone HCl [Buspar 5 mg Tablet] 5 mg PO Q12 09/09/17 Butalb/Acetaminophen/Caffeine [Tjvwwh-Odjxntcu-Xalv 50-325-40] 2 tab PO Q6HP PRN 09/09/17 Carboxymethylcellulose Sodium [Refresh Plus 0.5% Oph Soln 0.4 ml Droperette] 1 drop OU QIDP PRN 09/09/17 Duloxetine HCl [Cymbalta] 90 mg PO DAILY 09/09/17 Ergocalciferol (Vitamin D2) [Drisdol 50,000 unit (1.25MG) Capsule] 50,000 unit PO MO@1000 09/09/17 Ferrous Sulfate [Feosol 325 mg Tablet] 325 mg PO BID 09/09/17 Fluticasone Propionate [Flonase Nasal [place] 50 Mcg/[place] 16 gm] 2 sprays NASL DAILY 09/09/17 Fluticasone/Salmeterol [Advair 500-50 Diskus 14 Dose/Diskus] 1 puff IH Q12 09/09 Furosemide [Lasix 20 mg Tablet] 20 mg PO QPM 09/09/17 Furosemide [Lasix 40 mg Tablet] 40 mg PO QAM 09/09/17 Hydralazine HCl [Apresoline 25 mg Tablet] 25 mg PO Q8 09/09/17 Insulin Detemir [Levemir Flextouch] 30 units SQ DAILY 09/09/17 Insulin Lispro [Humalog Insulin (Lispro) 100 unit/mL] 0 units SQ .SLIDING SCALE 09/09/17 Ipratropium/Albuterol Sulfate [Iprat-Albut 0.5-3(2.5) mg/3 ml] 3 ml NEB [id number] 09/09/17 Lactulose [Enulose 10 gm/15 mL Oral Solution] 15 ml PO BIDP PRN 09/09/17 Levalbuterol HCl [Xopenex Neb 0.63 mg/3 ml Ampul] 0.63 mg NEB RTQ8 09/09/17 Lidocaine [Lidoderm 5% (700 mg) Transdermal Patch] 1 patch TOP DAILY 09/09/17 Linaclotide [Linzess 145 Mcg Capsule] 145 mcg PO DAILY 09/09/17 Loratadine [Claritin 10 mg Tablet] 10 mg PO DAILY 09/09/17 Magnesium Hydroxide [Milk of Magnesia 30 ml Udcup] 30 ml PO DAILYP PRN 09/09/17 Melatonin 10 mg PO QHS 09/09/17 Menthol [Biofreeze] 1 applic TOP DAILYP PRN 09/09/17 Metoprolol Succinate [Toprol Xl 50 mg Tab.sr] 50 mg PO DAILY 09/09/17 Nitroglycerin [Nitrostat] 0.4 mg SL Q5MP PRN 09/09/17 Omeprazole 20 mg PO Q6AM 09/09/17 Polyethylene Glycol 3350 [Miralax Powder 17 gm/Packet] 17 gm PO DAILY 09/09/17 Potassium Chloride [Klor-Con 10 Meq Capsule ER] 10 meq PO DAILY 09/09/17 Prednisone [Deltasone 10 mg Tablet] 10 mg PO DAILY 09/09/17 Pregabalin [Lyrica 75 mg Capsule] 75 mg PO Q8 09/09/17 Promethazine HCl [Phenergan 25 mg Tablet] 25 mg PO Q6HP PRN 09/09/17 Ranitidine HCl [Zantac 150 mg Tablet] 150 mg PO BID 09/09/17 Ranolazine [Ranexa 500 mg Tab.sr] 500 mg PO Q12 09/09/17 Roflumilast [Daliresp 500 mcg Tablet] 500 mcg PO DAILY 09/09/17 Sennosides/Docusate 8.6-50 mg [Senna Plus Tablet] 1 tab PO QHS 09/09/17 Tamsulosin HCl [Flomax 0.4 mg Cap.sr] 0.4 mg PO DAILY 09/09/17 Tiotropium [place] [Spiriva Handihaler 5 Cap/Kit (18 Mcg/Cap)] 1 puff IH DAILY 09/09/17 Diltiazem HCl [Cardizem 60 mg Tablet] 60 mg PO Q8 tablet 09/16/17 Docusate Sodium [Colace 100 mg Capsule] 100 mg PO BID capsule 09/16/17 Fentanyl [Duragesic 25 mcg/hr Transdermal Patch] 1 patch TOP Q3D #1 09/16/17 Oxycodone HCl [Oxy-Ir 5 mg Tablet] 5 mg PO Q6 #5 09/16/17 Metronidazole [Flagyl 500 mg Tablet] 500 mg PO TID #30 tablet 01/23/18 Vancomycin HCl [Vancocin Inj 500 mg Vial] 250 mg PO Q6 #40 vial 01/23/18 History of Present Illness Admission Date/PCP: 01/13/18 18:41 GILBERT CASTANEDA DO History of Present Illness: PORSHA WALDRON is a 72 year old female with extensive medical history including COPD, CAD, history of DVT, peripheral vascular disease, ROSETTA, CHF, hypothyroidism, hyperlipidemia, hypertension, stage III CKD, A. fib and depression, brought with chief complaint of shortness of breath of several day duration. Patient is somewhat somnolent and a complicated history from her. I got very brief history from ER attending note. Her blood works are unremarkable and her chest x-ray also reported as no acute pulmonary pathology except for cardiomegaly. They are attending considered the possibility of pneumonia but according my evaluation patient does not have pneumonia as she has COPD exacerbation. Review of system and further detailed history is unobtainable. Hospital Course Hospital Course: This is 72 years [facility] brought with chief complaint of shortness of breath yesterday. Patient admitted as a case of COPD exacerbation evidenced by her ABG shows pH of 7.3 and PCO2 79.5. Patient has been started on bronchodilators, Solu-Medrol, Zithromax and supplemental oxygen showed also on CPAP for her obstructive sleep apnea on the second day of her admission her ABG shows marked improvement her pH increased from 7.3 to7.43 and her PCO2 from 79.5 to 55.6. I seen patient propped up in bed. On the Saturday of her admission patient started to have watery greenish diarrhea and leukocytosis. Her stool tested positive for Clostridium difficile. Patient has been started on p.o. metronidazole and vancomycin. Due to nausea and vomiting she is not able to tolerate the metronidazole so I switched it to IV. Of note patient has history of recurrent C. difficile colitis. Her hospital also complicated by acute kidney injury which currently resolved. She also treated for acute on chronic systolic congestive heart failure exacerbation with IV Lasix. Her blood work which was done yesterday shows WBC count of 10.8, sodium of 139, potassium 3.6, creatinine of 0.85 and GFR greater than 60. Her diarrhea relatively subsided. Patient [facility]. I will continue all her home medication I will send her also with vancomycin 250 mg p.o. every 6 hours and metronidazole 500 mg 3 times a day for the coming 10 days. Physical Exam Vital Signs: Temp Pulse Resp BP Pulse Ox 98.7 F 86 18 135/67 H 96 01/23/18 07:52 01/23/18 08:35 01/23/18 08:35 01/23/18 07:52 01/23/18 08:35 Intake & Output 01/22/18 01/23/18 01/24/18 06:59 06:59 06:59 Intake Total 3828 4123 Output Total 2900 4100 Balance 928 23 Weight 204.5 kg 204.2 kg General appearance: PRESENT: mild distress Head exam: PRESENT: atraumatic Eye exam: PRESENT: conjunctiva pink Mouth exam: PRESENT: moist Neck exam: PRESENT: JVD. ABSENT: carotid bruit, lymphadenopathy, thyromegaly Respiratory exam: PRESENT: crackles, rales Cardiovascular exam: PRESENT: RRR. ABSENT: diastolic murmur, rubs, systolic murmur GI/Abdominal exam: PRESENT: normal bowel sounds, soft. ABSENT: distended, guarding, mass, organolmegaly, rebound, tenderness Neurological exam: PRESENT: alert, awake, oriented to time, oriented to situation Results Laboratory Results: 01/22/18 05:22 01/22/18 05:22 01/14/18 01/15/18 01/17/18 05:57 11:03 03:03 Creatine Kinase 32 CK-MB (CK-2) Troponin I 0.015 NT-Pro-B Natriuret Pep 416 01/17/18 01/17/18 01/17/18 03:03 09:19 09:19 Creatine Kinase 25 L CK-MB (CK-2) 1.31 0.90 Troponin I 0.069 0.057 NT-Pro-B Natriuret Pep 01/17/18 01/17/18 16:07 16:07 Creatine Kinase 73 CK-MB (CK-2) 2.16 Troponin I 0.059 NT-Pro-B Natriuret Pep Impressions: Abdomen/Pelvis CT 01/18/18 00:00 IMPRESSION: 1. Area of irregular high density along the inferior anterior stomach has an appearance suggestive of cyst hemorrhage possibly in the omentum. Please correlate with any recent trauma. Consider NG tube placement and short-term follow-up exam with IV contrast. Tumor is felt less likely as this was not present on the recent prior exam. 2. Diverticulosis. KUB X-Ray 01/18/18 04:32 IMPRESSION: NG tube in good position in the upper stomach. Chest X-Ray 01/22/18 00:00 IMPRESSION: Stable radiographic appearance of the chest demonstrating cardiomegaly and central vascular congestion suggesting CHF exacerbation. Superimposed infectious process is not excluded. Qualifiers - * PATIENT BEING DISCHARGED WITH ANY OF THE FOLLOWING DIAGNOSIS: Heart Failure VTE patient discharged on overlapping Therapy?: No Reason(s) for not prescribing Overlap Therapy:: Not indicated Stroke Pt being discharged on Anti-thrombolytic therapy?: No Reason(s) for not prescribing Anti-thrombolytic therapy:: Not indicated Stroke Pt being discharged on Anti-coagulation therapy?: No Reason(s) for not prescribing Anti-coagulation therapy:: Not indicated Stroke Pt being discharged on Statins?: No Reason(s) for not prescribing Statins therapy:: Not indicated [facility] Pt being discharged on Aspirin therapy?: No Reason(s) for not prescribing Aspirin therapy:: Not indicated VA Pt being discharged on Statins?: No Reason(s) for not prescribing Statin therapy:: Not indicated [facility] Pt discharged ACEI/ARBS?: No Reason(s) for not prescribing ACEI/ARBS:: Not indicated HF Pt being discharged on ACEI for LVEF less than 40%?: Yes HF Pt being discharged on ARBS for LVEF less than 40%?: Yes HF Pt with Afib discharged with Warfarin?: No Reason(s) for not prescribing Warfarin:: Not indicated HF Pt discharged on evidence-based Beta Jeremy:: Yes
[2018-01-23 16:03] VITALS: BP 86/36
[2018-01-23] MEDS: PREDNISONE 20 MG TABLET PO SCH (16:09)
== END 2018-01-23 17:37 | DRG 291 ==
LOC: ER 16:01 → EH 18:41 → 4N 20:38
PROVIDERS: ADMIT Internal Medicine; ATTEND Internal Medicine
PROC: 5A09557 Assistance with Respiratory Ventilation, Greater than 96 Consecutive Hours, Continuous Positive Airway Pressure (ICD-10-PCS; 2018-01-13)
PROC: 0D9670Z Drainage of Stomach with Drainage Device, Via Natural or Artificial Opening (ICD-10-PCS; principal; 2018-01-18)
DX: I13.0 Hypertensive heart and chronic kidney disease with heart failure and stage 1 through stage 4 chronic kidney disease, or unspecified chronic kidney disease (principal); I50.23 Acute on chronic systolic (congestive) heart failure; J96.22 Acute and chronic respiratory failure with hypercapnia; J96.21 Acute and chronic respiratory failure with hypoxia; J44.1 Chronic obstructive pulmonary disease with (acute) exacerbation; N17.9 Acute kidney failure, unspecified; A04.71 Enterocolitis due to Clostridium difficile, recurrent; I47.1 Supraventricular tachycardia; E11.22 Type 2 diabetes mellitus with diabetic chronic kidney disease; M79.7 Fibromyalgia; E11.51 Type 2 diabetes mellitus with diabetic peripheral angiopathy without gangrene; N18.3 Chronic kidney disease, stage 3 (moderate); I48.2 Chronic atrial fibrillation; I25.10 Atherosclerotic heart disease of native coronary artery without angina pectoris; E03.9 Hypothyroidism, unspecified; G47.33 Obstructive sleep apnea (adult) (pediatric); E78.5 Hyperlipidemia, unspecified; K21.9 Gastro-esophageal reflux disease without esophagitis; K44.9 Diaphragmatic hernia without obstruction or gangrene; F32.9 Major depressive disorder, single episode, unspecified; K66.8 Other specified disorders of peritoneum; Z66 Do not resuscitate; Z79.82 Long term (current) use of aspirin; Z79.4 Long term (current) use of insulin; Z79.899 Other long term (current) drug therapy; Z86.718 Personal history of other venous thrombosis and embolism; I25.2 Old myocardial infarction; Z86.14 Personal history of Methicillin resistant Staphylococcus aureus infection; Z90.49 Acquired absence of other specified parts of digestive tract; Z90.710 Acquired absence of both cervix and uterus; Z74.01 Bed confinement status; Z87.891 Personal history of nicotine dependence; Z88.2 Allergy status to sulfonamides; Z88.8 Allergy status to other drugs, medicaments and biological substances; Z82.3 Family history of stroke; Z83.3 Family history of diabetes mellitus; Z82.49 Family history of ischemic heart disease and other diseases of the circulatory system; Z82.61 Family history of arthritis; Z79.52 Long term (current) use of systemic steroids
CPT/HCPCS: 36415; 36600; 71045; 74018; 74176; 80048; 80053; 81001; 82272; 82550; 82553; 82803; 82962; 83880; 84443; 84484; 85025; 85027; 87040; 87493; 93005; 93010; 93306; 94640; 94660; 96372; 99285; J0456; J0696; J0780; J1644; J1650; J1815; J1940; J2550; J2765; J2920; J3370; J3490; J7060; J7120; J7512; J7620; S0164

== ENCOUNTER 2018-02-03 09:12 | Emergency (ER) | payer MEDICARE, MEDICAID ==
[2018-02-03 09:32] LABS: ABSOLUTE EOSINOPHILS # (AUTO) 0.1 10^3/uL (0.0-0.6); ABSOLUTE LYMPHOCYTES (AUTO) 2.1 10^3/uL (0.5-4.7); ABSOLUTE MONOCYTES (AUTO) 0.7 10^3/uL (0.1-1.4); ABSOLUTE NEUT (AUTO) 5.3 10^3/uL (1.7-8.2); BASOPHILS % (AUTO) 0.6 % (0-2); EOSINOPHILS % (AUTO) 0.7 % (0-6); HEMATOCRIT 32.2 % (36.0-47.0); HEMOGLOBIN 10.6 g/dL (12.0-15.5); LYMPHOCYTES % (AUTO) 25.5 % (13-45); MEAN CORPUSCULAR HEMOGLOBIN 28.4 pg (27.0-33.4); MEAN CORPUSCULAR HGB CONC 32.9 g/dL (32.0-36.0); MEAN CORPUSCULAR VOLUME 86 fl (80-97); MONOCYTES % (AUTO) 8.7 % (3-13); PLATELET COUNT 242 10^3/uL (150-450); RED BLOOD COUNT 3.73 10^6/uL (3.72-5.28); RED CELL DISTRIBUTION WIDTH 17.9 % (11.5-14.0); SEGMENTED NEUTROPHILS % (AUTO) 64.5 % (42-78); TOTAL CELLS COUNTED % (AUTO) 100 %; WHITE BLOOD COUNT 8.3 10^3/uL (4.0-10.5)
--- NOTE | 2018-02-03 09:45 | ER Document Report ---
ED General - General Chief Complaint: Breathing Difficulty Stated Complaint: DIFFICULTY BREATHING Time Seen by Provider: 02/03/18 09:44 Notes: 72-year-old female patient emergency department chief complaint of wheezing cough and shortness of breath. Patient has long-standing history of COPD. Was recently getting decreased doses of her prednisone. Complaining of worsening shortness of breath and cough today. No fever. No chills. TRAVEL OUTSIDE OF THE [place] IN LAST 30 DAYS: No - HPI Onset: Yesterday Onset/Duration: Gradual, Worse - Related Data Allergies/Adverse Reactions: Sulfa (Sulfonamide Antibiotics) Allergy (Intermediate, Verified 02/03/18 09:37) adhesive tape Allergy (Verified 02/03/18 09:37) atorvastatin calcium [From Lipitor] Allergy (Verified 02/03/18 09:37) celecoxib [From Celebrex] Allergy (Verified 02/03/18 09:37) Past Medical History - General Information source: Patient, [facility] Records - Social History Smoking Status: Former Smoker Frequency of alcohol use: None Drug Abuse: None Family History: Reviewed & Not Pertinent, Arthritis, CAD, CVA, DM, Hyperlipidemia, Hypertension Patient has suicidal ideation: No Patient has homicidal ideation: No - Past Medical History Cardiac Medical History: Reports: Hx Atrial Fibrillation, Hx Congestive Heart Failure - Diastolic dysfunction, Hx Heart Attack, Hx Hypertension - essential, Hx Pulmonary Embolism, Hx Heart Murmur Denies: Hx Coronary Artery Disease, Hx DVT, Hx Hypercholesterolemia, Hx Peripheral Vascular Disease Pulmonary Medical History: Reports: Hx Asthma, Hx Bronchitis, Hx COPD, Hx Pneumonia - Recurrent MRSA pneumonia., Hx Sleep Apnea - Uses C Pap Denies: Hx Tuberculosis Neurological Medical History: Denies: Hx Seizures Endocrine Medical History: Reports: Hx Diabetes Mellitus Type 2. Denies: Hx Diabetes Mellitus Type 1, Hx Hyperthyroidism, Hx Hypothyroidism Renal/ Medical History: Reports: Hx Renal Insufficiency. Denies: Hx Peritoneal Dialysis GI Medical History: Reports: Hx Gastroesophageal Reflux Disease, Hx Hiatal Hernia. Denies: Hx Cirrhosis, Hx Hepatitis Musculoskeletal Medical History: Reports Hx Arthritis, Reports Hx Fibromyalgia, Reports Hx Gout, Reports Hx Muscle Weakness Skin Medical History: Denies Hx Eczema, Denies Hx Psoriasis Psychiatric Medical History: Reports: Hx Anxiety, Hx Depression Infectious Medical History: Reports: Hx MRSA. Denies: Hx Hepatitis Past Surgical History: Reports: Hx Appendectomy, Hx Cholecystectomy, Hx Hysterectomy, Hx Orthopedic Surgery - Multiple left hip procedures, 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 - Immunizations Hx Diphtheria, Pertussis, Tetanus Vaccination: Yes Hx Pneumococcal Vaccination: 05/20/13 Review of Systems - Review of Systems Constitutional: denies: Fever, Malaise, Weakness EENT: denies: Double vision, Difficulty swallowing, Mouth pain Cardiovascular: Dyspnea. denies: Chest pain, Palpitations, Heart racing Respiratory: Cough, Short of breath, Wheezing. denies: Hemoptysis Gastrointestinal: denies: Abdominal pain, Diarrhea, Nausea, Vomiting Genitourinary: denies: Burning, Dysuria, Discharge, Flank pain Musculoskeletal: denies: Back pain, Muscle pain, Leg swelling Hematologic/Lymphatic: denies: Blood clots, Easy bleeding, Easy bruising Neurological/Psychological: denies: Confusion, Weakness, Numbness Physical Exam - Vital signs Vitals: Pulse Ox 99 02/03/18 09:18 Interpretation: Normal - General General appearance: Appears well, Alert - HEENT Head: Normocephalic, Atraumatic Eyes: Normal Pupils: PERRL - Respiratory Respiratory status: No respiratory distress Chest status: Nontender Breath sounds: Decreased air movement, Nonproductive cough, Wheezing Chest palpation: Normal - Cardiovascular Rhythm: Regular Heart sounds: Normal auscultation Murmur: No - Abdominal Inspection: Normal Distension: No distension Bowel sounds: Normal Tenderness: Nontender Organomegaly: No organomegaly - Back Back: Normal, Nontender - Extremities General upper extremity: Normal inspection, Nontender, Normal color, Normal ROM , Normal temperature General lower extremity: Normal inspection, Nontender, Normal color, Normal ROM , Normal temperature. No: Tavo's sign - Neurological Neuro grossly intact: Yes Cognition: Normal Orientation: AAOx4 Duy Coma Scale Eye Opening: Spontaneous Duy Coma Scale Verbal: Oriented [place] Coma Scale Motor: Obeys Commands Duy Coma Scale Total: 15 Speech: Normal Motor strength normal: LUE, RUE, LLE, RLE Sensory: Normal - Psychological Associated symptoms: Normal affect, Normal mood - Skin Skin Temperature: Warm Skin Moisture: Dry Skin Color: Normal Course - Re-evaluation Re-evalutation: 02/03/18 13:13 Patient does not have a fever. No elevated to be BC count. No obvious pneumonia on x-ray. Steroids and breathing treatments have been given. Patient is feeling much better at this time. Have given a dose of IV Rocephin and oral doxycycline. Patient would like to try and go home. She is currently being taken care of at a nursing facility. She can get every 4 hours breathing treatments at the nursing facility. Can get nursing care. Patient would like to try and be discharged. I have advised her that if symptoms are getting worse she should return. 02/03/18 15:11 Of note, patient has indwelling Barton catheter with chronic infection. On doxycycline. Rocephin was given. Will culture. - Vital Signs Vital signs: Temp Pulse Resp BP Pulse Ox 98.0 F 89 18 141/84 H 96 02/03/18 13:59 02/03/18 13:59 02/03/18 13:59 02/03/18 13:59 02/03/18 13:59 - Laboratory Result Diagrams: 02/03/18 09:00 02/03/18 09:00 Laboratory results interpreted by me: 02/03/18 02/03/18 02/03/18 09:00 09:00 11:55 Hgb 10.6 L Hct 32.2 L RDW 17.9 H Sodium 145.6 H Chloride 108 H Est GFR (Non-Af Amer) 58 L Albumin 3.2 L Urine Protein 30 H Urine Nitrite POSITIVE H Ur Leukocyte Esterase LARGE H Urine Ascorbic Acid 40 H Discharge - Discharge Clinical Impression: COPD exacerbation Condition: Good Disposition: SNF-Other Instructions: Chronic Obstructive Lung Disease ([facility]) Prescriptions: Doxycycline Hyclate 100 mg PO BID 10 Days #20 capsule Prednisone [Deltasone 20 mg Tablet] 3 tab PO DAILY 5 Days #15 tablet Referrals: GILBERT CASTANEDA DO [Primary Care Provider] - Follow up as needed
[2018-02-03] MEDS ORDERED: ALBUTEROL SULFATE 0.083% NEB 2.5 MG/3 ML AMPUL NEB ONE (09:55)
[2018-02-03 09:56] LABS: ALANINE AMINOTRANSFERASE 21 U/L (9-52); ALBUMIN 3.2 g/dL (3.5-5.0); ALKALINE PHOSPHATASE 75 U/L (38-126); ANION GAP 11 (5-19); ASPARTATE AMINO TRANSFERASE 17 U/L (14-36); BILIRUBIN,DIRECT 0.4 mg/dL (0.0-0.4); BILIRUBIN,TOTAL 0.4 mg/dL (0.2-1.3); BLOOD UREA NITROGEN 17 mg/dL (7-20); CALCIUM 9.5 mg/dL (8.4-10.2); CARBON DIOXIDE 27 mmol/L (22-30); CHLORIDE 108 mmol/L (98-107); GLUCOSE 101 mg/dL (75-110); POTASSIUM 3.9 mmol/L (3.6-5.0); SODIUM 145.6 mmol/L (137-145); TOTAL PROTEIN 6.7 g/dL (6.3-8.2)
--- NOTE | 2018-02-03 10:54 | RADIOLOGY REPORT (SQ) ---
EXAM DESCRIPTION: CHEST SINGLE VIEW COMPLETED DATE/TIME: 02/03/2018 10:25 am REASON FOR STUDY: shortness of breath COMPARISON: 01/22/2018 EXAM PARAMETERS: NUMBER OF VIEWS: One view. TECHNIQUE: Single frontal radiographic view of the chest acquired. RADIATION DOSE: NA LIMITATIONS: None. FINDINGS: LUNGS AND PLEURA: No opacities, masses or pneumothorax. No pleural effusion. MEDIASTINUM AND HILAR STRUCTURES: No masses. Contour normal. HEART AND VASCULAR STRUCTURES: Cardiac silhouette remains enlarged and is unchanged in configuration BONES: Stable bony changes involving both shoulder articulations. HARDWARE: None in the chest. OTHER: No other significant finding. IMPRESSION: No significant interval change. No acute findings. Cardiomegaly. Other findings as no sonya above TECHNICAL DOCUMENTATION: JOB ID: [id number] [employer]- All Rights Reserved Reading location - IP/workstation name: [email or web address]
[2018-02-03] MEDS ORDERED: DOXYCYCLINE HYCLATE 100 MG TABLET PO ONE (12:01)
[2018-02-03] MEDS ORDERED: CEFTRIAXONE 1 GM/D5W RTU 1 GM/50 ML RTUPB IV ONE (12:01)
[2018-02-03] MEDS ORDERED: CEFTRIAXONE INJ 1000 MG VIAL ONE (12:16)
[2018-02-03 12:35] LABS: APPEARANCE,URINE CLOUDY; BILIRUBIN,URINE NEGATIVE (NEGATIVE); CALCIUM OXALATE CRYSTALS,URINE MODERATE /HPF; COLOR,URINE YELLOW; GLUCOSE, URINE NEGATIVE (NEGATIVE); KETONES,URINE NEGATIVE (NEGATIVE); LEUKOCYTE ESTERASE,URINE LARGE (NEGATIVE); NITRITE,URINE POSITIVE (NEGATIVE); PROTEIN,URINE 30 mg/dL (NEGATIVE); URINE SPECIFIC GRAVITY 1.014; UROBILINOGEN,URINE NEGATIVE mg/dL (<2.0)
--- NOTE | 2018-02-03 13:17 | EKG REPORT ---
SEVERITY:- ABNORMAL ECG - SINUS TACHYCARDIA SUPRAVENTRICULAR BIGEMINY NONSPECIFIC IVCD WITH LAD LVH WITH SECONDARY REPOLARIZATION ABNORMALITY : Confirmed by: Yesenia Graham MD 03-Feb-2018 13:16:04
[2018-02-03 14:00] VITALS: BP 141/84
== END 2018-02-03 14:00 ==
LOC: ER 09:12
DX: J44.1 Chronic obstructive pulmonary disease with (acute) exacerbation (principal); I48.91 Unspecified atrial fibrillation; I50.9 Heart failure, unspecified; I11.0 Hypertensive heart disease with heart failure; I25.2 Old myocardial infarction; Z86.711 Personal history of pulmonary embolism; Z86.14 Personal history of Methicillin resistant Staphylococcus aureus infection
CPT/HCPCS: 93005; 99285; 96365; 36415; 87040; 85025; 80053; 81001; 83605; 71045; 93010; A9270 ×2; J0696

== ENCOUNTER 2018-02-25 11:02 | Emergency (ER) | payer MEDICARE, MEDICAID ==
[2018-02-25 12:13] LABS: ABSOLUTE EOSINOPHILS # (AUTO) 0.1 10^3/uL (0.0-0.6); ABSOLUTE MONOCYTES (AUTO) 0.7 10^3/uL (0.1-1.4); BASOPHILS % (AUTO) 0.4 % (0-2); EOSINOPHILS % (AUTO) 0.8 % (0-6); HEMATOCRIT 30.9 % (36.0-47.0); HEMOGLOBIN 10.1 g/dL (12.0-15.5); MEAN CORPUSCULAR HEMOGLOBIN 28.8 pg (27.0-33.4); MEAN CORPUSCULAR HGB CONC 32.7 g/dL (32.0-36.0); MEAN CORPUSCULAR VOLUME 88 fl (80-97); PLATELET COUNT 237 10^3/uL (150-450); RED CELL DISTRIBUTION WIDTH 16.6 % (11.5-14.0); SEGMENTED NEUTROPHILS % (AUTO) 81.8 % (42-78); TOTAL CELLS COUNTED % (AUTO) 100 %; WHITE BLOOD COUNT 9.8 10^3/uL (4.0-10.5)
[2018-02-25 12:31] LABS: APPEARANCE,URINE TURBID; BILIRUBIN,URINE NEGATIVE (NEGATIVE); COLOR,URINE YELLOW; GLUCOSE, URINE NEGATIVE (NEGATIVE); KETONES,URINE NEGATIVE (NEGATIVE); LEUKOCYTE ESTERASE,URINE LARGE (NEGATIVE); NITRITE,URINE POSITIVE (NEGATIVE); PROTEIN,URINE 100 mg/dL (NEGATIVE); TRIPLE PHOSPHATE CRYSTAL,URINE TOO NUMEROUS TO CNT /HPF; URINE SPECIFIC GRAVITY 1.021; UROBILINOGEN,URINE NEGATIVE mg/dL (<2.0)
[2018-02-25 12:38] LABS: ALANINE AMINOTRANSFERASE 24 U/L (9-52); ALBUMIN 3.4 g/dL (3.5-5.0); ALKALINE PHOSPHATASE 86 U/L (38-126); ANION GAP 8 (5-19); ASPARTATE AMINO TRANSFERASE 22 U/L (14-36); BILIRUBIN,DIRECT 0.4 mg/dL (0.0-0.4); BILIRUBIN,TOTAL 0.4 mg/dL (0.2-1.3); BLOOD UREA NITROGEN 14 mg/dL (7-20); CALCIUM 9.4 mg/dL (8.4-10.2); CARBON DIOXIDE 29 mmol/L (22-30); CHLORIDE 108 mmol/L (98-107); GLUCOSE 144 mg/dL (75-110); POTASSIUM 3.5 mmol/L (3.6-5.0); SODIUM 145.2 mmol/L (137-145)
--- NOTE | 2018-02-25 12:39 | EKG REPORT ---
SEVERITY:- ABNORMAL ECG - SINUS RHYTHM ATRIAL PREMATURE COMPLEX LEFT ANTERIOR FASCICULAR BLOCK LVH WITH SECONDARY REPOLARIZATION ABNORMALITY : Confirmed by: Inocencio Aguilar MD 25-Feb-2018 12:39:10
--- NOTE | 2018-02-25 13:24 | RADIOLOGY REPORT (SQ) ---
EXAM DESCRIPTION: CHEST 2 VIEWS COMPLETED DATE/TIME: 02/25/2018 1:08 pm REASON FOR STUDY: sob shortness of breath COMPARISON: Chest films 02/03/2018, 01/22/2018, 01/18/2018, 10/28/2017 CT angio chest 08/03/2017 EXAM PARAMETERS: NUMBER OF VIEWS: two views TECHNIQUE: Digital Frontal and Lateral radiographic views of the chest acquired. RADIATION DOSE: NA LIMITATIONS: none FINDINGS: LUNGS AND PLEURA: Chronic appearing increased interstitial markings at both lung bases. N o acute infiltrates. No pleural effusion. No pneumothorax MEDIASTINUM AND HILAR STRUCTURES: No masses or contour abnormalities. HEART AND VASCULAR STRUCTURES: Stable massive cardiomegaly BONES: Advanced arthritis left shoulder. Surgical resection right humeral head. HARDWARE: None in the chest. OTHER: No other significant finding. IMPRESSION: Cardiomegaly. Chronic increased interstitial markings. No gross acute changes TECHNICAL DOCUMENTATION: JOB ID: [id number] [employer]- All Rights Reserved Reading location - IP/workstation name: [email or web address]
[2018-02-25] MEDS ORDERED: IPRATROPIUM/ALBUTEROL 0.5-2.5 MG/3 ML AMPUL NEB ONE (14:13)
[2018-02-25] MEDS ORDERED: METHYLPREDNISOLONE INJ 125 MG/2 ML SDV IV ONE (14:13)
[2018-02-25] MEDS ORDERED: DOXYCYCLINE HYCLATE 100 MG TABLET PO ONE (14:15)
[2018-02-25] MEDS ORDERED: NITROFURANTOIN MONOHYD/M-CRYST 100 MG CAPSULE PO ONE (14:21)
--- NOTE | 2018-02-25 14:26 | ER Document Report ---
ED General - General Chief Complaint: Shortness Of Breath Stated Complaint: SHORTNESS OF BREATH Time Seen by Provider: 02/25/18 11:53 Mode of Arrival: Medic Information source: Patient Notes: Patient presents complaining of cough for the past month. Patient complains of right-sided breast pain with coughing. Patient is concerned she may have pneumonia. Patient also reports increased sediment in her Barton catheter and complains of bladder spasms. Patient denies any fever. Cough has been nonproductive. Patient does have a history of COPD. Patient also reports a history of chronic UTI with E. coli. TRAVEL OUTSIDE OF THE [place] IN LAST 30 DAYS: No - HPI Onset: Other - Cough 1 month Onset/Duration: Persistent Quality of pain: Achy Pain Level: 3 Associated symptoms: Chest pain, Nonproductive cough. denies: Diarrhea, Fever, Nausea, Vomiting Exacerbated by: Denies Relieved by: Denies Similar symptoms previously: Yes Recently seen / treated by doctor: No - Related Data Allergies/Adverse Reactions: Sulfa (Sulfonamide Antibiotics) Allergy (Intermediate, Verified 02/03/18 09:37) adhesive tape Allergy (Verified 02/03/18 09:37) atorvastatin calcium [From Lipitor] Allergy (Verified 02/03/18 09:37) celecoxib [From Celebrex] Allergy (Verified 02/03/18 09:37) Past Medical History - General Information source: Patient - Social History Smoking Status: Former Smoker Chew tobacco use (# tins/day): No Frequency of alcohol use: None Drug Abuse: None Lives with: [facility] Family History: Reviewed & Not Pertinent, Arthritis, CAD, CVA, DM, Hyperlipidemia, Hypertension Patient has suicidal ideation: No Patient has homicidal ideation: No - Past Medical History Cardiac Medical History: Reports: Hx Atrial Fibrillation, Hx Congestive Heart Failure - Diastolic dysfunction, Hx Heart Attack, Hx Hypertension - essential, Hx Pulmonary Embolism, Hx Heart Murmur Denies: Hx Coronary Artery Disease, Hx DVT, Hx Hypercholesterolemia, Hx Peripheral Vascular Disease Pulmonary Medical History: Reports: Hx Asthma, Hx Bronchitis, Hx COPD, Hx Pneumonia - Recurrent MRSA pneumonia., Hx Sleep Apnea - Uses C Pap Denies: Hx Tuberculosis Neurological Medical History: Denies: Hx Seizures Endocrine Medical History: Reports: Hx Diabetes Mellitus Type 2. Denies: Hx Diabetes Mellitus Type 1, Hx Hyperthyroidism, Hx Hypothyroidism Renal/ Medical History: Reports: Hx Renal Insufficiency, Other - Frequent UTIs , chronic indwelling Barton. Denies: Hx Peritoneal Dialysis GI Medical History: Reports: Hx Gastroesophageal Reflux Disease, Hx Hiatal Hernia. Denies: Hx Cirrhosis, Hx Hepatitis Musculoskeletal Medical History: Reports Hx Arthritis, Reports Hx Fibromyalgia, Reports Hx Gout, Reports Hx Muscle Weakness Skin Medical History: Denies Hx Eczema, Denies Hx Psoriasis Psychiatric Medical History: Reports: Hx Anxiety, Hx Depression Infectious Medical History: Reports: Hx MRSA. Denies: Hx Hepatitis Past Surgical History: Reports: Hx Appendectomy, Hx Cholecystectomy, Hx Hysterectomy, Hx Orthopedic Surgery - Multiple left hip procedures, 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 - Immunizations Hx Diphtheria, Pertussis, Tetanus Vaccination: Yes Hx Pneumococcal Vaccination: 05/20/13 Review of Systems - Review of Systems Constitutional: No symptoms reported. denies: Fever EENT: No symptoms reported Cardiovascular: Chest pain - With coughing Respiratory: Cough. denies: Short of breath, Sputum Gastrointestinal: No symptoms reported. denies: Abdominal pain, Nausea, Vomiting Genitourinary: Other - Bladder spasms with sediment in her Barton catheter bag Female Genitourinary: No symptoms reported Musculoskeletal: Back pain Skin: No symptoms reported Hematologic/Lymphatic: No symptoms reported Neurological/Psychological: No symptoms reported Physical Exam - Vital signs Vitals: Resp Pulse Ox 13 100 02/25/18 11:12 02/25/18 11:12 - General General appearance: Appears well, Alert In distress: None - HEENT Head: Normocephalic, Atraumatic Eyelashes: Other - Entropion Nasal: Normal Mouth/Lips: Normal Mucous membranes: Normal Pharynx: Normal Neck: Normal, Supple. No: Lymphadenopathy - Respiratory Respiratory status: No respiratory distress Chest status: Tender, Pain with cough Breath sounds: Nonproductive cough, Rhonchi Chest palpation: Tender - Right anterior chest wall tenderness with palpation - Cardiovascular Rhythm: Regular Heart sounds: S1 appreciated, S2 appreciated Murmur: No - Abdominal Inspection: Morbidly Obese Distension: No distension Bowel sounds: Normal Tenderness: Nontender Organomegaly: No organomegaly - Genitourinary Notes: Barton bag with yellow urine with heavy sediment - Back Back: Tender - Right lower thoracic tenderness. No: CVA tenderness - Extremities General upper extremity: Normal inspection, Normal ROM General lower extremity: Other - Patient with ecchymosis to left lower extremity and healing abrasion, scar to left knee from previous knee replacement - Neurological Neuro grossly intact: Yes Duy Coma Scale Eye Opening: Spontaneous [place] Coma Scale Verbal: Oriented Duy Coma Scale Motor: Obeys Commands Duy Coma Scale Total: 15 - Psychological Associated symptoms: Normal affect, Normal mood - Skin Skin Temperature: Warm Skin Moisture: Dry Skin Color: Normal Course - Re-evaluation Re-evalutation: 02/25/18 14:[address] Walsh regarding patient presentation, reviewed diagnostic test results. Also reviewed patient's most recent resulted urine culture obtained from 12/29/2017. Patient does have a history of chronic E. coli infections that grew out ESBL. Patient's culture was sensitive to Macrobid. Recommends placing patient on Macrobid as she does have evidence of worsening UTI. Patient reports bladder spasms with increased sediment to her Barton bag and her urinalysis today was compared with her recent UA obtained yesterday. Dr. Walsh does not recommend treating with any antibiotics for her cough symptoms as she does not demonstrate any signs of pneumonia on chest x-ray. - Vital Signs Vital signs: Temp Pulse Resp BP Pulse Ox 98.0 F 12 140/71 H 99 02/25/18 11:23 02/25/18 19:01 02/25/18 19:00 02/25/18 18:01 - Laboratory Result Diagrams: 02/25/18 11:37 02/25/18 11:37 Laboratory results interpreted by me: 02/25/18 02/25/18 02/25/18 11:23 11:37 11:37 RBC 3.50 L Hgb 10.1 L Hct 30.9 L RDW 16.6 H Seg Neutrophils % 81.8 H Lymphocytes % 10.0 L Sodium 145.2 H Potassium 3.5 L Chloride 108 H Est GFR (Non-Af Amer) 55 L Glucose 144 H POC Glucose Albumin 3.4 L Lipase Urine Protein 100 H Urine Blood SMALL H Urine Nitrite POSITIVE H Ur Leukocyte Esterase LARGE H Urine Ascorbic Acid 40 H 02/25/18 02/25/18 11:37 16:25 RBC Hgb Hct RDW Seg Neutrophils % Lymphocytes % Sodium Potassium Chloride Est GFR (Non-Af Amer) Glucose POC Glucose 165 H Albumin Lipase 18.0 L Urine Protein Urine Blood Urine Nitrite Ur Leukocyte Esterase Urine Ascorbic Acid 02/25/18 19:52 Labs- Entire Visit 0802/25/18 02/25/18 11:23 11:37 11:37 WBC 9.8 RBC 3.50 L Hgb 10.1 L Hct 30.9 L MCV 88 MCH 28.8 MCHC 32.7 RDW 16.6 H Plt Count 237 Seg Neutrophils % 81.8 H Lymphocytes % 10.0 L Monocytes % 7.0 Eosinophils % 0.8 Basophils % 0.4 Absolute Neutrophils 8.0 Absolute Lymphocytes 1.0 Absolute Monocytes 0.7 Absolute Eosinophils 0.1 Absolute Basophils 0.0 VBG pH VBG pCO2 VBG HCO3 VBG Base Excess Sodium 145.2 H Potassium 3.5 L Chloride 108 H Carbon Dioxide 29 Anion Gap 8 BUN 14 Creatinine 0.98 Est GFR ( Amer) > 60 Est GFR (Non-Af Amer) 55 L Glucose 144 H POC Glucose Calcium 9.4 Magnesium Total Bilirubin 0.4 Direct Bilirubin 0.4 Neonat Total Bilirubin Not Reportable Neonat Direct Bilirubin Not Reportable Neonat Indirect Bili Not Reportable AST 22 ALT 24 Alkaline Phosphatase 86 Total Protein 7.0 Albumin 3.4 L Lipase Urine Color YELLOW Urine Appearance TURBID Urine pH 7.0 Ur Specific [place] 1.021 Urine Protein 100 H Urine Glucose (UA) NEGATIVE Urine Ketones NEGATIVE Urine Blood SMALL H Urine Nitrite POSITIVE H Urine Bilirubin NEGATIVE Urine Urobilinogen NEGATIVE Ur Leukocyte Esterase LARGE H Urine WBC (Auto) >182 Urine RBC (Auto) 142 Urine Bacteria (Auto) 2+ Urine WBC Clumps MANY Squamous Epi Cells Auto 19 U Non-Squamous Epis Auto 3 Triple Phos Cryst (Auto) TOO NUMEROUS TO CNT Urine Mucus (Auto) FEW Urine Ascorbic Acid 40 H 02/25/18 02/25/18 02/25/18 11:37 14:33 16:25 WBC RBC Hgb Hct MCV MCH MCHC RDW Plt Count Seg Neutrophils % Lymphocytes % Monocytes % Eosinophils % Basophils % Absolute Neutrophils Absolute Lymphocytes Absolute Monocytes Absolute Eosinophils Absolute Basophils VBG pH 7.33 VBG pCO2 44.0 VBG HCO3 22.6 VBG Base Excess -3.2 Sodium Potassium Chloride Carbon Dioxide Anion Gap BUN Creatinine Est GFR ( Amer) Est GFR (Non-Af Amer) Glucose POC Glucose 165 H Calcium Magnesium 2.3 Total Bilirubin Direct Bilirubin Neonat Total Bilirubin Neonat Direct Bilirubin Neonat Indirect Bili AST ALT Alkaline Phosphatase Total Protein Albumin Lipase 18.0 L Urine Color Urine Appearance Urine pH Ur Specific [place] Urine Protein Urine Glucose (UA) Urine Ketones Urine Blood Urine Nitrite Urine Bilirubin Urine Urobilinogen Ur Leukocyte Esterase Urine WBC (Auto) Urine RBC (Auto) Urine Bacteria (Auto) Urine WBC Clumps Squamous Epi Cells Auto U Non-Squamous Epis Auto Triple Phos Cryst (Auto) Urine Mucus (Auto) Urine Ascorbic Acid - Diagnostic Test Radiology reviewed: Reports reviewed Discharge - Discharge Clinical Impression: Hypokalemia COPD (chronic obstructive pulmonary disease) Qualifiers: COPD type: unspecified COPD Qualified Code(s): J44.9 - Chronic obstructive pulmonary disease, unspecified UTI (urinary tract infection) Qualifiers: Urinary tract infection type: site unspecified Hematuria presence: with hematuria Qualified Code(s): N39.0 - Urinary tract infection, site not specified Condition: Stable Disposition: SNF-Other Instructions: Chronic Obstructive Lung Disease ([facility]), Inhaled Bronchodilators ( [facility]), Nitrofurantoin ([facility]), Steroid Medication, Urinary Tract Infection ([facility]) Additional Instructions: Return immediately for any new or worsening symptoms Followup with your primary care provider, call tomorrow to make a followup appointment Urine culture is pending, we will call if you need any different treatment Use your breathing treatments that you have at home as prescribed Prescriptions: Albuterol Sulfate [Ventolin 0.083% Neb 2.5 mg/3 ml Ampul] 1 vial NEB Q4 PRN #25 vial PRN Reason: Nitrofurantoin Monohyd/M-Cryst [Macrobid 100 mg Capsule] 100 mg PO BID #10 capsule Phenazopyridine HCl [Pyridium 200 mg Tablet] 200 mg PO TID #15 tablet Prednisone [Deltasone 20 mg Tablet] 2 tab PO DAILY 4 Days tablet Referrals: GILBERT CASTANEDA DO [Primary Care Provider] - Follow up tomorrow
[2018-02-25] MEDS ORDERED: POTASSIUM CHLORIDE 10 MEQ CAPSULE.ER PO ONE (14:27)
[2018-02-25 14:49] LABS: VENOUS BLOOD BASE EXCESS -3.2 mmol/L; VENOUS BLOOD HCO3 22.6 mmol/L (20-32); VENOUS BLOOD PH 7.33 (7.30-7.42)
[2018-02-25] MEDS ORDERED: ALBUTEROL SULFATE 0.083% NEB 2.5 MG/3 ML AMPUL NEB ONE (15:46)
[2018-02-25] MEDS ORDERED: PHENAZOPYRIDINE HCL 200 MG TABLET PO ONE (17:27)
[2018-02-25 19:36] VITALS: BP 140/71
== END 2018-02-25 19:38 ==
LOC: ER 11:02
DX: N39.0 Urinary tract infection, site not specified (principal); R31.9 Hematuria, unspecified; J44.9 Chronic obstructive pulmonary disease, unspecified; E87.6 Hypokalemia; R05 Cough; N64.4 Mastodynia; R07.9 Chest pain, unspecified; I10 Essential (primary) hypertension; E11.9 Type 2 diabetes mellitus without complications; Z88.2 Allergy status to sulfonamides; Z91.048 Other nonmedicinal substance allergy status; Z88.8 Allergy status to other drugs, medicaments and biological substances; Z87.891 Personal history of nicotine dependence; Z87.01 Personal history of pneumonia (recurrent); Z86.14 Personal history of Methicillin resistant Staphylococcus aureus infection
CPT/HCPCS: 93005; 94640 ×2; 99285; 51702; 96374; 36415; 87086; 82962; 83690; 83735; 85025; 87088; 80053; 81001; 87186; 82803; 71046; 93010; J2930; A9270 ×5; J3490; J7620; J8499

== ENCOUNTER 2018-04-08 09:49 | Inpatient (IN) | payer MEDICARE, MEDICAID ==
[2018-04-08] MEDS ORDERED: NORMAL SALINE 1000 ML 1,000 ML IV ONE (10:33)
[2018-04-08] MEDS ORDERED: IPRATROPIUM/ALBUTEROL 0.5-2.5 MG/3 ML AMPUL NEB ONE (10:34)
[2018-04-08] MEDS ORDERED: ALBUTEROL SULFATE 0.083% NEB 2.5 MG/3 ML AMPUL NEB ONE (10:34)
--- NOTE | 2018-04-08 10:35 | ER Document Report ---
ED Respiratory Problem - General Mode of Arrival: Medic Information source: Patient TRAVEL OUTSIDE OF THE [place] IN LAST 30 DAYS: No <LADARIUS GUILLERMO - Last Filed: 04/08/18 17:01> <CHANDRA URIBE - Last Filed: 04/08/18 19:02> - General Stated Complaint: DIFFICULTY BREATHING Time Seen by Provider: 04/08/18 10:25 Notes: Patient is a 72 year old female with COPD, type 2 diabetes and a history of OR presents to the emergency department via EMS from [facility] complaining of difficulty breathing onset 4 days ago worsening this morning. Patient states she woke up around 0500 this morning due to a productive cough and proceeded to take a Mucinex which she states relieved her symptoms temporarily. Around 0800 she reports having increased difficulty breathing and decided to come to the emergency department. Patient further mentions having chest pain 4 days ago and taking 3 nitro to relieve her symptoms. Patient received 125 Solu Medrol in EMS. Patient mentions recently finishing Levaquin for a recent diagnoses of an URI. She is on 2-3 L of O2 at home and BiPAP at night. Patient's PCP is Dr. Borrego. (LADARIUS GUILLERMO) - Related Data Allergies/Adverse Reactions: Sulfa (Sulfonamide Antibiotics) Allergy (Intermediate, Verified 02/03/18 09:37) adhesive tape Allergy (Verified 02/03/18 09:37) atorvastatin calcium [From Lipitor] Allergy (Verified 02/03/18 09:37) celecoxib [From Celebrex] Allergy (Verified 02/03/18 09:37) Past Medical History - General Information source: Patient - Social History Smoking Status: Former Smoker Cigarette use (# per day): No Chew tobacco use (# tins/day): No Smoking Education Provided: No Frequency of alcohol use: None Family History: Reviewed & Not Pertinent, Arthritis, CAD, CVA, DM, Hyperlipidemia, Hypertension - Past Medical History Cardiac Medical History: Reports: Hx Atrial Fibrillation, Hx Congestive Heart Failure - Diastolic dysfunction, Hx Heart Attack, Hx Hypertension - essential, Hx Pulmonary Embolism, Hx Heart Murmur Pulmonary Medical History: Reports: Hx Asthma, Hx Bronchitis, Hx COPD, Hx Pneumonia - Recurrent MRSA pneumonia., Hx Sleep Apnea - Uses C Pap Endocrine Medical History: Reports: Hx Diabetes Mellitus Type 2 Renal/ Medical History: Reports: Hx Renal Insufficiency GI Medical History: Reports: Hx Gastroesophageal Reflux Disease, Hx Hiatal Hernia Musculoskeletal Medical History: Reports Hx Arthritis, Reports Hx Fibromyalgia, Reports Hx Gout, Reports Hx Muscle Weakness Psychiatric Medical History: Reports: Hx Anxiety, Hx Depression Infectious Medical History: Reports: Hx MRSA Past Surgical History: Reports: Hx Appendectomy, Hx Cholecystectomy, Hx Hysterectomy, Hx Orthopedic Surgery - Multiple left hip procedures, 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 - Immunizations Hx Diphtheria, Pertussis, Tetanus Vaccination: Yes Hx Pneumococcal Vaccination: 05/20/13 <LADARIUS GUILLERMO - Last Filed: 04/08/18 17:01> Review of Systems - Review of Systems Constitutional: No symptoms reported EENT: No symptoms reported Cardiovascular: See HPI, Chest pain Respiratory: See HPI, Short of breath Gastrointestinal: No symptoms reported Genitourinary: No symptoms reported Female Genitourinary: No symptoms reported Musculoskeletal: No symptoms reported Skin: No symptoms reported Hematologic/Lymphatic: No symptoms reported Neurological/Psychological: No symptoms reported -: Yes All other systems reviewed and negative <LADARIUS GUILLERMO - Last Filed: 04/08/18 17:01> Physical Exam <LADARIUS GUILLERMO - Last Filed: 04/08/18 17:01> <CHANDRA URIBE - Last Filed: 04/08/18 19:02> - Vital signs Vitals: Resp Pulse Ox 23 H 93 04/08/18 10:04 04/08/18 10:04 - Notes Notes: GENERAL: Alert, interacts well. No acute distress. HEAD: Normocephalic, atraumatic. EYES: Pupils equal, round, and reactive to light. Extraocular movements intact. ENT: Oral mucosa moist, tongue midline. NECK: Full range of motion. Supple. Trachea midline. LUNGS: On nasal cannula at bedside. Coarse breath sounds, productive cough, inspiratory rhonchi, expiratory wheezes. HEART: Tachycardic. Regular rhythm. No murmurs, gallops, or rubs. ABDOMEN: Soft, non-tender. Non-distended. Bowel sounds present in all 4 quadrants. EXTREMITIES: Moves all 4 extremities spontaneously. No edema, radial and dorsalis pedis pulses 2/4 bilaterally. No cyanosis. NEUROLOGICAL: Alert and oriented x3. Normal speech. PSYCH: Normal affect, normal mood. SKIN: Warm, dry, normal turgor. Ecchymosis to left ankle. (LADARIUS GUILLERMO) Course - Laboratory Result Diagrams: 04/08/18 09:35 04/08/18 09:35 <LADARIUS GUILLERMO - Last Filed: 04/08/18 17:01> - Laboratory Result Diagrams: 04/08/18 09:35 04/08/18 09:35 <CHANDRA URIBE - Last Filed: 04/08/18 19:02> - Re-evaluation Re-evalutation: 04/08/18 14:07 CBC shows anemia with hemoglobin 10.7, this is stable, coags normal, venous blood gas does not show significant CO2 retention, very mild acute on chronic renal failure, BUN is 33 and creatinine is 1.39, GFR is usually 47 and today it is 37, patient is hyperglycemic but has not had her insulin, lactic acid is normal, cardiac enzymes negative, chest x-ray shows no acute infiltrate. Patient is significantly improved after breathing treatments as far as her breath sounds ago however she is still hypoxic and requires at least 5 L via nasal cannula to maintain her oxygen saturation at 90%. Patient has been placed on BiPAP and is tolerating this well. Patient was given 125 mg of Solu- Medrol by EMS. She actually just finished taking Levaquin, I do not think this is an acute bacterial exacerbation of COPD at this time I think it is more likely viral. Patient was discussed with Daysi Hill NP who agrees to admit the patient to her service on the telemetry care unit. 04/08/18 14:09 Tachycardia has improved well with a small amount of fluid. (CHANDRA URIBE) - Vital Signs Vital signs: Temp Pulse Resp BP Pulse Ox 98.3 F 97 20 119/57 L 94 04/08/18 16:24 04/08/18 17:59 04/08/18 17:59 04/08/18 16:24 04/08/18 17:59 - Laboratory Laboratory results interpreted by me: 04/08/18 04/08/18 04/08/18 09:35 09:35 11:15 RBC 3.59 L Hgb 10.7 L Hct 32.7 L RDW 15.7 H Seg Neutrophils % 93.6 H Lymphocytes % 5.4 L Monocytes % 0.7 L Absolute Neutrophils 8.8 H VBG pH Carbon Dioxide 32 H BUN 33 H Creatinine 1.39 H Est GFR ( Amer) 45 L Est GFR (Non-Af Amer) 37 L Glucose 120 H POC Glucose Direct Bilirubin 0.6 H Creatine Kinase 23 L Urine Protein 30 H Urine Nitrite POSITIVE H Urine Bilirubin MODERATE H Urine Urobilinogen 4.0 H Ur Leukocyte Esterase LARGE H Urine Ascorbic Acid 40 H 04/08/18 04/08/18 12:14 13:13 RBC Hgb Hct RDW Seg Neutrophils % Lymphocytes % Monocytes % Absolute Neutrophils VBG pH 7.45 H Carbon Dioxide BUN Creatinine Est GFR ( Amer) Est GFR (Non-Af Amer) Glucose POC Glucose 260 H Direct Bilirubin Creatine Kinase Urine Protein Urine Nitrite Urine Bilirubin Urine Urobilinogen Ur Leukocyte Esterase Urine Ascorbic Acid - EKG Interpretation by Me Additional EKG results interpreted by me: 04/08/18 14:08 EKG shows sinus tachycardia at a rate of 120, left anterior hemiblock, no ST segment elevations or depressions, there are T wave inversions in 1 and aVL, T wave flattening in V2, poor R wave progression per my interpretation. (CHANDRA URIBE) Critical Care Note - Critical Care Note Total time excluding time spent on procedures (mins): 35 <CHANDRA URIBE - Last Filed: 04/08/18 19:02> Discharge <LADARIUS GUILLERMO - Last Filed: 04/08/18 17:01> - Discharge Admitting Provider: Hospitalist - [facility] Admitted: Telemetry <CHANDRA URIBE - Last Filed: 04/08/18 19:02> - Discharge Clinical Impression: COPD exacerbation, Chronic respiratory failure with hypoxia Anemia Qualifiers: Anemia type: iron deficiency Iron deficiency anemia type: unspecified iron deficiency Qualified Code(s): D50.9 - Iron deficiency anemia, unspecified Acute on chronic renal failure Qualifiers: Acute renal failure type: unspecified Chronic kidney disease stage: stage 3 ( moderate) Qualified Code(s): N17.9 - Acute kidney failure, unspecified Condition: Fair Disposition: ADMITTED INPATIENT Scribe Attestation: 04/08/18 19:02 I personally performed the services described in the documentation, reviewed and edited the documentation which was dictated to the scribe in my presence, and it accurately records my words and actions. (CHANDRA URIBE) Scribe Documentation - Scribe Written by Scribe:: April Winters, 04/08/2018 11:46 acting as scribe for :: Moshe <LADARIUS GUILLERMO - Last Filed: 04/08/18 17:01>
[2018-04-08 10:50] LABS: ABSOLUTE LYMPHOCYTES (AUTO) 0.5 10^3/uL (0.5-4.7); ABSOLUTE MONOCYTES (AUTO) 0.1 10^3/uL (0.1-1.4); ABSOLUTE NEUT (AUTO) 8.8 10^3/uL (1.7-8.2); BASOPHILS % (AUTO) 0.1 % (0-2); EOSINOPHILS % (AUTO) 0.2 % (0-6); HEMATOCRIT 32.7 % (36.0-47.0); HEMOGLOBIN 10.7 g/dL (12.0-15.5); LYMPHOCYTES % (AUTO) 5.4 % (13-45); MEAN CORPUSCULAR HGB CONC 32.8 g/dL (32.0-36.0); MEAN CORPUSCULAR VOLUME 91 fl (80-97); MONOCYTES % (AUTO) 0.7 % (3-13); PLATELET COUNT 209 10^3/uL (150-450); RED BLOOD COUNT 3.59 10^6/uL (3.72-5.28); RED CELL DISTRIBUTION WIDTH 15.7 % (11.5-14.0); SEGMENTED NEUTROPHILS % (AUTO) 93.6 % (42-78); TOTAL CELLS COUNTED % (AUTO) 100 %; WHITE BLOOD COUNT 9.4 10^3/uL (4.0-10.5)
--- NOTE | 2018-04-08 11:01 | RADIOLOGY REPORT (SQ) ---
EXAM DESCRIPTION: CHEST SINGLE VIEW COMPLETED DATE/TIME: 04/08/2018 10:52 am REASON FOR STUDY: sob COMPARISON: 02/25/2018. NUMBER OF VIEWS: One view. TECHNIQUE: Single frontal radiographic view of the chest acquired. LIMITATIONS: None. FINDINGS: LUNGS AND PLEURA: No opacities, masses or pneumothorax. No pleural effusion. MEDIASTINUM AND HILAR STRUCTURES: No masses. Contour normal. HEART AND VASCULAR STRUCTURES: Heart enlarged without failure. Normal vasculature. BONES: No acute findings. Chronic deformity in both shoulders. HARDWARE: None in the chest. OTHER: No other significant finding. IMPRESSION: HEART ENLARGED WITHOUT FAILURE. NO ACUTE RADIOGRAPHIC FINDING IN THE CHEST. TECHNICAL DOCUMENTATION: JOB ID: [id number] [employer]- All Rights Reserved Reading location - IP/workstation name: [email or web address]
[2018-04-08 11:03] LABS: INTERNATIONAL RATION (INR) 1.01; PROTHROMBIN TIME 13.8 SEC (11.4-15.4)
[2018-04-08 11:06] LABS: ALANINE AMINOTRANSFERASE 16 U/L (9-52); ALBUMIN 3.8 g/dL (3.5-5.0); ALKALINE PHOSPHATASE 107 U/L (38-126); ANION GAP 10 (5-19); ASPARTATE AMINO TRANSFERASE 16 U/L (14-36); BILIRUBIN,DIRECT 0.6 mg/dL (0.0-0.4); BILIRUBIN,TOTAL 1.3 mg/dL (0.2-1.3); BLOOD UREA NITROGEN 33 mg/dL (7-20); CALCIUM 9.5 mg/dL (8.4-10.2); CARBON DIOXIDE 32 mmol/L (22-30); CHLORIDE 98 mmol/L (98-107); CREATINE KINASE 23 U/L (30-135); GLUCOSE 120 mg/dL (75-110); POTASSIUM 4.3 mmol/L (3.6-5.0); SODIUM 139.6 mmol/L (137-145); TOTAL PROTEIN 7.2 g/dL (6.3-8.2)
[2018-04-08 11:17] LABS: CREATINE KINASE MB 1.44 ng/mL (<4.55); TROPONIN I 0.014 ng/mL
[2018-04-08 12:27] LABS: VENOUS BLOOD BASE EXCESS 4.8 mmol/L; VENOUS BLOOD HCO3 29.2 mmol/L (20-32); VENOUS BLOOD PH 7.45 (7.30-7.42)
[2018-04-08] MEDS ORDERED: PROMETHAZINE HCL INJ 25 MG/1 ML VIAL IV PRN (15:18)
[2018-04-08] MEDS ORDERED: MAG HYDROX/AL HYDROX/SIMETH SUSP 30 ML UDCUP PO PRN (15:18)
[2018-04-08] MEDS ORDERED: LEVALBUTEROL HCL NEB 1.25 MG/3 ML AMPUL NEB PRN (15:18)
[2018-04-08] MEDS ORDERED: MAGNESIUM HYDROXIDE SUSP 30 ML UDCUP PO PRN (15:18)
[2018-04-08] MEDS ORDERED: ACETAMINOPHEN 325 MG TABLET PO PRN (15:18)
[2018-04-08] MEDS ORDERED: ONDANSETRON HCL INJ/PF 4 MG/2 ML SDV IV PRN (15:18)
[2018-04-08] MEDS ORDERED: NITROGLYCERIN 0.4 MG/TAB 25 TAB/BOTTLE SL PRN (15:28)
[2018-04-08] MEDS ORDERED: DEXTROSE 40% GEL 15 GM TUBE PO PRN ×2 (15:32)
[2018-04-08] MEDS ORDERED: DEXTROSE 50%-WATER 25 GM/50 ML DISP.SYRIN IV PRN ×2 (15:32)
[2018-04-08] MEDS ORDERED: GLUCAGON,HUMAN RECOMB 1 MG INJ IM PRN (15:32)
[2018-04-08] MEDS ORDERED: VANCOMYCIN HCL 0 MG in DEXTROSE 5%-WATER 250 ML IV NR (15:45)
--- NOTE | 2018-04-08 16:00 | PDOC H&P ---
History of Present Illness Admission Date/PCP: 04/08/18 14:35 GILBERT CASTANEDA DO Patient complains of: Shortness of breath History of Present Illness: PORSHA WALDRON is a 72 year old female with an extensive past medical history including chronic respiratory failure with hypoxia (baseline oxygen requirement of 2 L/min), COPD, ROSETTA (uses CPAP), CHF, hypertension, HLD, history PA, insulin- dependent diabetes mellitus, CAD, A. fib, anemia, CKD, GERD, chronic pain, depression with anxiety, and morbid obesity who presented to the emergency department today via EMS with complaint of generalized body aches, fever (102.8 per EMS), dyspnea, and increased oxygen requirement. The patient reports that she was on an unknown antibiotic (completed a 10-day course over the weekend) for pneumonia and was beginning to feel better but suddenly worsened Saturday. She states that at that time she had some angina that resolved with sublingual nitroglycerin; she has been chest pain-free since that time. However, she has continued to have fever, chills, fatigue, malaise, dyspnea and a productive cough. Evaluation in the emergency department revealed hypoxia (currently requiring 6 L /min to maintain oxygen saturations greater than 89%), tachypnea (RR 26), and tachycardia (HR 120). Laboratory evaluation demonstrates her baseline anemia ( hemoglobin 10.8), acute on chronic kidney insufficiency (WV 1.39), and a benign chest x-ray. She is provided nebulizer treatments and IV Solu-Medrol; placed on BiPAP, and referred to the hospitalist service for admission and management of a/c respiratory failure with hypoxia secondary to COPD exacerbation. Past Medical History Cardiac Medical History: Reports: Atrial Fibrillation, Congestive Heart Failure - Diastolic dysfunction, Coronary Artery Disease, DVT, Myocardial Infarction, Hyperlipidema, Hypertension, Pulmonary Embolism, Heart Murmur Pulmonary Medical History: Reports: Asthma, Bronchitis, Chronic Obstructive Pulmonary Disease (COPD), Pneumonia - Recurrent MRSA pneumonia., Respiratory Failure - Chronic, Sleep Apnea - Uses CPap Denies: Tuberculosis EENT Medical History: Reports: None Neurological Medical History: Denies: Ischemic CVA, Seizures Endocrine Medical History: Reports: Diabetes Mellitus Type 2 - Insulin dependent , Obesity Denies: Diabetes Mellitus Type 1, Hyperthyroidism, Hypothyroidism Renal/ Medical History: Reports: Chronic Kidney Disease Malignancy Medical History: Reports: None GI Medical History: Reports: Gastroesophageal Reflux Disease, Hiatal Hernia Denies: Cirrhosis, Hepatitis Musculoskeltal Medical History: Reports: Arthritis, Fibromyalgia, Gout Skin Medical History: Denies: Eczema, Psoriasis Psychiatric Medical History: Reports: Depression, General Anxiety Disorder Hematology: Reports: Anemia Infectious Medical History: Reports: Clostridium Difficile, Methicillin- Resistant Staph Aureus Past Surgical History Past Surgical History: Reports: Appendectomy, Cholecystectomy, Hysterectomy, Orthopedic Surgery - Multiple left hip procedures, 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 Social History Information Source: Patient, Outside Facility Records Lives with: Retirement Smoking Status: Former Smoker Frequency of Alcohol Use: None Hx Recreational Drug Use: No Drugs: None Hx Prescription Drug Abuse: No - Advance Directive Resuscitation Status: Do Not Resuscitate Surrogate healthcare decision maker:: Lida Cowart Family History Family History: Arthritis, CAD, CVA, DM, Hyperlipidemia, Hypertension Parental Family History Reviewed: Yes Children Family History Reviewed: Yes Sibling(s) Family History Reviewed.: Yes Medication/Allergy Home Medications: Acetaminophen [Tylenol 325 mg Tablet] 650 mg PO Q4HP PRN 09/09/17 Acetylcysteine [Mucomist 10% Neb 400 mg/4 mL Vial] 400 mg NEB RTQ6 09/09/17 Ascorbic Acid [Vitamin C 500 mg Tablet] 500 mg PO BID 09/09/17 Aspirin [Aspirin 81 mg Chewable Tablet] 81 mg PO DAILY 09/09/17 Baclofen [Baclofen 10 mg Tablet] 10 mg PO Q8HP PRN 09/09/17 Benzocaine/Menthol [Chloraseptic Sore Throat Lozenge] 1 ru PO Q1HP PRN Benzonatate [Tessalon Perles 100 mg Capsule] 200 mg PO Q8HP PRN 09/09/17 Biotin [Biotin 1 mg Tablet] 1 mg PO DAILYP PRN 09/09/17 Budesonide [Pulmicort 180 mcg Flexhaler] 2 puff IH Q12 09/09/17 Buspirone HCl [Buspar 5 mg Tablet] 5 mg PO Q12 09/09/17 Carboxymethylcellulose Sodium [Refresh Plus 0.5% Oph Soln 0.4 ml Droperette] 1 drop OU QID 09/09/17 Duloxetine HCl [Cymbalta] 90 mg PO DAILY 09/09/17 Ergocalciferol (Vitamin D2) [Drisdol 50,000 unit (1.25MG) Capsule] 50,000 unit PO .09/09/17 Ferrous Sulfate [Feosol 325 mg Tablet] 325 mg PO BID 09/09/17 Fluticasone/Salmeterol [Advair 500-50 Diskus 14 Dose/Diskus] 1 puff IH Q12 09/09 Furosemide [Lasix 40 mg Tablet] 40 mg PO BID 09/09/17 Hydralazine HCl [Apresoline 25 mg Tablet] 25 mg PO Q8 09/09/17 Insulin Detemir [Levemir Flextouch] 30 units SQ DAILY 09/09/17 Insulin Lispro [Humalog Insulin (Lispro) 100 unit/mL] 0 units SQ .SLIDING SCALE 09/09/17 Ipratropium/Albuterol Sulfate [Iprat-Albut 0.5-3(2.5) mg/3 ml] 3 ml NEB [id number] 09/09/17 Lactulose [Enulose 10 gm/15 mL Oral Solution] 15 ml PO BIDP PRN 09/09/17 Levalbuterol HCl [Xopenex Neb 0.63 mg/3 ml Ampul] 0.63 mg NEB RTQ8 09/09/17 Lidocaine [Lidoderm 5% (700 mg) Transdermal Patch] 1 patch TOP DAILY 09/09/17 Linaclotide [Linzess 145 Mcg Capsule] 145 mcg PO DAILY 09/09/17 Magnesium Hydroxide [Milk of Magnesia 30 ml Udcup] 30 ml PO DAILYP PRN 09/09/17 Melatonin 10 mg PO QHS 09/09/17 Metoprolol Succinate [Toprol Xl 50 mg Tab.sr] 50 mg PO DAILY 09/09/17 Nitroglycerin [Nitrostat] 0.4 mg SL Q5MP PRN 09/09/17 Omeprazole 20 mg PO Q6AM 09/09/17 Polyethylene Glycol 3350 [Miralax Powder 17 gm/Packet] 17 gm PO DAILY 09/09/17 Potassium Chloride [Klor-Con 10 Meq Capsule ER] 40 meq PO DAILY 09/09/17 Pregabalin [Lyrica 75 mg Capsule] 75 mg PO Q8 09/09/17 Promethazine HCl [Phenergan 25 mg Tablet] 12.5 mg PO Q4HP PRN 09/09/17 Ranitidine HCl [Zantac 150 mg Tablet] 150 mg PO BID 09/09/17 Ranolazine [Ranexa 500 mg Tab.sr] 500 mg PO Q12 09/09/17 Roflumilast [Daliresp 500 mcg Tablet] 500 mcg PO DAILY 09/09/17 Sennosides/Docusate 8.6-50 mg [Senna Plus Tablet] 1 tab PO QHS 09/09/17 Tamsulosin HCl [Flomax 0.4 mg Cap.sr] 0.4 mg PO DAILY 09/09/17 Tiotropium Filion [Spiriva Handihaler 5 Cap/Kit (18 Mcg/Cap)] 1 cap IH DAILY Diltiazem HCl [Cardizem 60 mg Tablet] 60 mg PO Q8 tablet 09/16/17 Docusate Sodium [Colace 100 mg Capsule] 100 mg PO BID capsule 09/16/17 Cetirizine HCl [Zyrtec 10 mg Tablet] 10 mg PO DAILY 04/08/18 Guaifenesin [Mucinex] 600 mg PO Q12 04/08/18 Oxycodone HCl [Oxy-Ir 5 mg Tablet] 10 mg PO Q6 04/08/18 Phenazopyridine HCl [Pyridium 200 mg Tablet] 200 mg PO PC 04/08/18 Prednisone [Deltasone 20 mg Tablet] 20 mg PO DAILY 04/08/18 Allergies/Adverse Reactions: Sulfa (Sulfonamide Antibiotics) Allergy (Intermediate, Verified 02/03/18 09:37) adhesive tape Allergy (Verified 02/03/18 09:37) atorvastatin calcium [From Lipitor] Allergy (Verified 02/03/18 09:37) celecoxib [From Celebrex] Allergy (Verified 02/03/18 09:37) Review of Systems Constitutional: PRESENT: chills, fatigue, fever(s), headache(s), weakness. ABSENT: weight gain, weight loss Eyes: ABSENT: visual disturbances Ears: ABSENT: hearing changes Cardiovascular: PRESENT: dyspnea on exertion. ABSENT: chest pain, edema, orthropnea, palpitations Respiratory: PRESENT: cough, dyspnea, sputum. ABSENT: hemoptysis Gastrointestinal: PRESENT: constipation. ABSENT: abdominal pain, diarrhea, hematemesis, hematochezia, nausea, vomiting Genitourinary: ABSENT: dysuria, hematuria Musculoskeletal: ABSENT: joint swelling Integumentary: ABSENT: rash, wounds Neurological: ABSENT: abnormal gait, abnormal speech, confusion, dizziness, focal weakness, syncope Psychiatric: ABSENT: anxiety, depression, homidical ideation, suicidal ideation Endocrine: ABSENT: cold intolerance, heat intolerance, polydipsia, polyuria Hematologic/Lymphatic: ABSENT: easy bleeding, easy bruising Physical Exam Vital Signs: Temp Pulse Resp BP Pulse Ox 98.8 F 23 H 140/70 H 89 L 04/08/18 12:46 04/08/18 15:01 04/08/18 15:01 04/08/18 14:01 General appearance: PRESENT: cooperative, mild distress, well-developed, well- nourished - Overweight Head exam: PRESENT: atraumatic, normocephalic Eye exam: PRESENT: conjunctiva pink, EOMI, PERRLA. ABSENT: scleral icterus Ear exam: PRESENT: normal external ear exam Mouth exam: PRESENT: moist, tongue midline Neck exam: ABSENT: carotid bruit, JVD, lymphadenopathy, thyromegaly Respiratory exam: PRESENT: decreased breath sounds - Bibasilar, prolonged expiratory phas, symmetrical, tachypnea, wheezes - Throughout, other - BiPAP. ABSENT: rales, rhonchi Cardiovascular exam: PRESENT: RRR, +S1, +S2, systolic murmur. ABSENT: diastolic murmur, rubs Pulses: PRESENT: normal dorsalis pedis pul Vascular exam: PRESENT: normal capillary refill GI/Abdominal exam: PRESENT: distended, firm, normal bowel sounds. ABSENT: guarding, mass, organolmegaly, rebound, tenderness Rectal exam: PRESENT: deferred Extremities exam: PRESENT: full ROM. ABSENT: calf tenderness, clubbing, pedal edema Neurological exam: PRESENT: alert, awake, oriented to person, oriented to place , oriented to time, oriented to situation, CN II-XII grossly intact. ABSENT: motor sensory deficit Psychiatric exam: PRESENT: appropriate affect, normal mood. ABSENT: homicidal ideation, suicidal ideation Skin exam: PRESENT: dry, intact, warm. ABSENT: cyanosis, rash Results Impressions: Chest X-Ray 04/08/18 10:18 IMPRESSION: HEART ENLARGED WITHOUT FAILURE. NO ACUTE RADIOGRAPHIC FINDING IN THE CHEST. Assessment & Plan - Diagnosis (1) Acute and chronic respiratory failure with hypoxia Is this a current diagnosis for this admission?: Yes Plan: Acute on chronic respiratory failure in the setting of COPD, CHF, morbid obesity , ROSETTA and patient who is chronically O2 dependent at 2 L/min. Presents to the emergency department today with complaint of dyspnea, tachypnea, tachycardia, and hypoxia on her baseline oxygen requirement. Secondary to COPD exacerbation and likely healthcare associated pneumonia ( patient is a resident [facility]) who was recently treated with oral antibiotics. Chest x-ray is unremarkable. Blood cultures are pending. Sputum cultures are pending. Flu screening is pending. The patient is admitted to the telemetry floor. She is placed on supplemental oxygen and BiPAP as needed to maintain oxygen saturations greater than 89%. Have initiated scheduled and as needed nebulizer treatments. Continue her home dose Daliresp. IV Solu-Medrol 40 mg every 8 hours. Mucinex twice daily. Flutter valve and incentive spirometry at bedside. Although chest x-ray is negative for PNA at this time, she is noted to be dehydrated, will provided IV fluids and repeat chest x-ray in the morning. We will empirically place the patient on IV Zosyn and vancomycin based upon her previous culture results (Pseudomonas and MRSA). Consider pulmonary consultation; patient is established with Dr. Ahuja. (2) COPD exacerbation Is this a current diagnosis for this admission?: Yes Plan: Plan as above. Supplemental oxygen, BiPAP, nebulizer treatments, IV Solu-Medrol, Mucinex, empiric antibiotics. (3) ARF (acute renal failure) Qualifiers: Acute renal failure type: unspecified Qualified Code(s): N17.9 - Acute kidney failure, unspecified Is this a current diagnosis for this admission?: Yes Plan: The patient is noted to have an elevated creatinine of 1.39 up from her baseline of 0.98. BUN is elevated to 33. Likely secondary to insensible losses (fever of 102.8). Gentle IV fluid rehydration overnight. Encourage p.o. fluids. Avoid nephrotoxic medications as able. Pharmacy to dose vancomycin. Daily chemistries. (4) Anemia Qualifiers: Anemia type: iron deficiency Iron deficiency anemia type: unspecified iron deficiency Qualified Code(s): D50.9 - Iron deficiency anemia, unspecified Is this a current diagnosis for this admission?: Yes Plan: Patient is noted to be at her baseline; hemoglobin 10.8 on admission. Continue home dose ferrous sulfate supplementation. (5) Constipation Qualifiers: Constipation type: unspecified constipation type Qualified Code(s): K59.00 - Constipation, unspecified Is this a current diagnosis for this admission?: Yes Plan: Likely secondary to chronic opiate use and immobility. Patient requesting fleets enema; states she has not had a bowel movement in 3-4 days. She is placed on daily Colace, milk of magnesia as needed, Linzess (if available ; this is a home medication). Fleets x1 Consider Lactulose. 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 Humalog for sliding scale coverage. Continue her home dose Levemir. Registered dietitian is consulted; appreciate dietary recommendations. (7) Gastroesophageal reflux disease Qualifiers: Esophagitis presence: without esophagitis Qualified Code(s): K21.9 - Gastro -esophageal reflux disease without esophagitis Is this a current diagnosis for this admission?: Yes Plan: PPI. (8) HTN (hypertension) Qualifiers: Hypertension type: essential hypertension Qualified Code(s): I10 - Essential (primary) hypertension Is this a current diagnosis for this admission?: Yes Plan: The patient's home medications are continued: Diltiazem, hydralazine, metoprolol , Ranexa (9) Morbid obesity Is this a current diagnosis for this admission?: Yes Plan: Dietary discretion is advised. Registered dietitian is consulted. (10) Obstructive sleep apnea Is this a current diagnosis for this admission?: Yes Plan: BiPAP nightly and as needed. (11) Chronic pain Qualifiers: Chronic pain type: chronic pain syndrome Qualified Code(s): G89.4 - Chronic pain syndrome Is this a current diagnosis for this admission?: Yes Plan: The patient's home medication regimen is continued: Cymbalta, oxycodone 10 mg every 6 hours, and Lyrica 75 mg every 8 hours. - Time Time Spent: 50 to 70 Minutes Medications reviewed and adjusted accordingly: Yes Anticipated discharge: SNF [facility] Certification Based on my medical assessment, after consideration of the patient's comorbidities, presenting symptoms, or acuity I expect that the services needed warrant INPATIENT care.: Yes I certify that my determination is in accordance with my understanding of Medicare's requirements for reasonable and necessary INPATIENT services [42 CFR 412.3e].: Yes Medical Necessity: Failure to Improve With Outpatient Therapy, Significant Comorbidiites Make Outpatient Treatment Too Risky, Need Close Monitoring Due to Risk of Patient Decompensation, Need For IV Fluids, Need For Continuous Telemetry Monitoring, Need for Nebulizer Therapy and Monitoring of Response, Need for IV Antibiotics
[2018-04-08] MEDS ORDERED: NA PHOS,M-B/NA PHOS,DI-BA (ADULT) 133 ML ENEMA PR ONE (16:15)
[2018-04-08 16:21] LABS: AMORPHOUS SEDIMENT,URINE TRACE /HPF; APPEARANCE,URINE CLOUDY; BILIRUBIN,URINE MODERATE (NEGATIVE); COLOR,URINE AMBER; GLUCOSE, URINE NEGATIVE (NEGATIVE); KETONES,URINE NEGATIVE (NEGATIVE); LEUKOCYTE ESTERASE,URINE LARGE (NEGATIVE); NITRITE,URINE POSITIVE (NEGATIVE); PROTEIN,URINE 30 mg/dL (NEGATIVE)
[2018-04-08] MEDS: NORMAL SALINE 1000 ML 1,000 ML IV PRN (16:43)
[2018-04-08] MEDS: VANCOMYCIN HCL 750 MG in DEXTROSE 5%-WATER 250 ML IV SCH (16:44)
[2018-04-08] MEDS: OXYCODONE HCL IR 5 MG TABLET PO SCH (17:09)
[2018-04-08] MEDS: DOCUSATE SODIUM 100 MG CAPSULE PO SCH (17:09)
[2018-04-08] MEDS: FERROUS SULFATE 325 MG TABLET PO SCH (17:09)
[2018-04-08] MEDS: INSULIN LISPRO 100 UNIT/ML 3 ML VIAL SUBCUT PRN ×2 (17:10→22:32)
[2018-04-08] MEDS: CARBOXYMETHYLCELLULOSE SOD 0.5% 0.4 ML DROPERETTE OU SCH ×2 (17:50→22:31)
[2018-04-08] MEDS: IPRATROPIUM/ALBUTEROL 0.5-2.5 MG/3 ML AMPUL NEB SCH ×2 (17:59→23:34)
[2018-04-08] MEDS ORDERED: (PENDING PHARMACY ID) (Guaifenesin [Mucinex] 600 MG) PO SCH (22:00)
[2018-04-08] MEDS ORDERED: (PENDING PHARMACY ID) (Buspirone Hcl [Buspar 5 Mg Tablet] 5 MG) PO SCH (22:00)
[2018-04-08] MEDS: METHYLPREDNISOLONE INJ 40 MG/1 ML SDV IV SCH (22:31)
[2018-04-08] MEDS: PIPERACILLIN SODIUM/TAZOBACTAM 3.375 GM in NORMAL SALINE 100 ML IV SCH ×2 (22:31→23:32)
[2018-04-08] MEDS: HEPARIN SOD (PORCINE) 5,000 UNIT/ML 1 ML SYRINGE SUBCUT SCH (22:32)
[2018-04-08] MEDS: SENNOSIDES/DOCUSATE 8.6-50 MG 1 EACH TABLET PO SCH (22:33)
[2018-04-08] MEDS: PREGABALIN 75 MG CAPSULE PO SCH (22:33)
[2018-04-08] MEDS: BUSPIRONE HCL 10 MG TABLET PO SCH (22:33)
[2018-04-08] MEDS: GUAIFENESIN 600 MG TABLET.SA PO SCH (22:33)
[2018-04-08] MEDS: RANOLAZINE 500 MG TAB.SR.12H PO SCH (22:33)
[2018-04-08] MEDS: HYDRALAZINE HCL 25 MG TABLET PO SCH (22:33)
[2018-04-08] MEDS: PHENAZOPYRIDINE HCL 200 MG TABLET PO SCH (22:34)
[2018-04-08] MEDS: DILTIAZEM HCL 60 MG TABLET PO SCH (22:34)
[2018-04-09] MEDS: OXYCODONE HCL IR 5 MG TABLET PO SCH ×5 (00:53→23:12)
[2018-04-09] MEDS: PREGABALIN 75 MG CAPSULE PO SCH ×3 (06:08→23:13)
[2018-04-09] MEDS: DILTIAZEM HCL 60 MG TABLET PO SCH ×3 (06:08→23:15)
[2018-04-09] MEDS: HEPARIN SOD (PORCINE) 5,000 UNIT/ML 1 ML SYRINGE SUBCUT SCH ×3 (06:09→23:11)
[2018-04-09] MEDS: HYDRALAZINE HCL 25 MG TABLET PO SCH ×3 (06:09→23:14)
[2018-04-09] MEDS: LANSOPRAZOLE 15 MG TAB.RAP.DR PO SCH (06:10)
[2018-04-09] MEDS: PIPERACILLIN SODIUM/TAZOBACTAM 3.375 GM in NORMAL SALINE 100 ML IV SCH ×4 (06:10→23:40)
[2018-04-09] MEDS: METHYLPREDNISOLONE INJ 40 MG/1 ML SDV IV SCH ×3 (06:10→23:12)
[2018-04-09 06:48] LABS: HEMATOCRIT 25.4 % (36.0-47.0); MEAN CORPUSCULAR HEMOGLOBIN 30.2 pg (27.0-33.4); MEAN CORPUSCULAR VOLUME 91 fl (80-97); PLATELET COUNT 177 10^3/uL (150-450); RED BLOOD COUNT 2.78 10^6/uL (3.72-5.28); RED CELL DISTRIBUTION WIDTH 15.6 % (11.5-14.0); WHITE BLOOD COUNT 16.2 10^3/uL (4.0-10.5)
[2018-04-09 07:04] LABS: ANION GAP 9 (5-19); BLOOD UREA NITROGEN 30 mg/dL (7-20); CALCIUM 9.1 mg/dL (8.4-10.2); CARBON DIOXIDE 27 mmol/L (22-30); CHLORIDE 105 mmol/L (98-107); GLUCOSE 199 mg/dL (75-110); POTASSIUM 4.2 mmol/L (3.6-5.0); SODIUM 140.5 mmol/L (137-145)
[2018-04-09 07:16] LABS: HEMOGLOBIN 8.4 g/dL (12.0-15.5)
[2018-04-09 07:44] LABS: ABSOLUTE LYMPHOCYTES# (MANUAL) 0.3 10^3/uL (0.5-4.7); ABSOLUTE MONOCYTES # (MANUAL) 0.2 10^3/uL (0.1-1.4); ABSOLUTE NEUTROPHILS# (MANUAL) 15.7 10^3/uL (1.7-8.2); BASOPHILS % (MANUAL) 0 % (0-2); EOSINOPHILS % (MANUAL) 0 % (0-6); LYMPHOCYTES % (MANUAL) 2 % (13-45); MONOCYTES % (MANUAL) 1 % (3-13); SEGMENTED NEUTROPHILS % (MAN) 97 % (42-78); TOTAL CELLS COUNTED 100
[2018-04-09 07:45] LABS: ANISOCYTOSIS SLIGHT; PLATELET COMMENT ADEQUATE; TOXIC GRANULATION 1+
[2018-04-09] MEDS: INSULIN LISPRO 100 UNIT/ML 3 ML VIAL SUBCUT PRN ×3 (07:46→23:24)
[2018-04-09] MEDS: IPRATROPIUM/ALBUTEROL 0.5-2.5 MG/3 ML AMPUL NEB SCH ×2 (08:17→16:38)
[2018-04-09] MEDS ORDERED: ONDANSETRON HCL INJ/PF 4 MG/2 ML SDV IV PRN (08:30)
[2018-04-09] MEDS ORDERED: PROMETHAZINE HCL INJ 25 MG/1 ML VIAL IV PRN (08:30)
--- NOTE | 2018-04-09 09:00 | RADIOLOGY REPORT (SQ) ---
EXAM DESCRIPTION: CHEST SINGLE VIEW COMPLETED DATE/TIME: 04/09/2018 8:40 am REASON FOR STUDY: dyspnea, hypoxia COMPARISON: 04/08/2018, 02/25/2018, 02/03/2018 chest films EXAM PARAMETERS: NUMBER OF VIEWS: One view. TECHNIQUE: Single frontal radiographic view of the chest acquired. RADIATION DOSE: NA LIMITATIONS: None. FINDINGS: LUNGS AND PLEURA: No opacities, masses or pneumothorax. No pleural effusion. MEDIASTINUM AND HILAR STRUCTURES: No masses. Contour normal. HEART AND VASCULAR STRUCTURES: Stable moderate cardiomegaly BONES: No acute findings. HARDWARE: None in the chest. OTHER: No other significant finding. IMPRESSION: Stable moderate cardiomegaly TECHNICAL DOCUMENTATION: JOB ID: [id number] [employer]- All Rights Reserved Reading location - IP/workstation name: [email or web address]
[2018-04-09] MEDS: METOPROLOL SUCCINATE 50 MG TAB.SR.24H PO SCH (09:28)
[2018-04-09] MEDS: BUSPIRONE HCL 10 MG TABLET PO SCH ×2 (09:29→23:13)
[2018-04-09] MEDS: FERROUS SULFATE 325 MG TABLET PO SCH ×2 (09:29→18:03)
[2018-04-09] MEDS: DULOXETINE HCL 30 MG CAPSULE.DR PO SCH (09:29)
[2018-04-09] MEDS: ASPIRIN 81 MG TABLET, CHEWABLE PO SCH (09:29)
[2018-04-09] MEDS: TAMSULOSIN HCL 0.4 MG CAP.SR.24H PO SCH (09:29)
[2018-04-09] MEDS: PHENAZOPYRIDINE HCL 200 MG TABLET PO SCH ×3 (09:30→18:04)
[2018-04-09] MEDS: ROFLUMILAST 500 MCG TABLET PO SCH (09:30)
[2018-04-09] MEDS: GUAIFENESIN 600 MG TABLET.SA PO SCH ×2 (09:30→23:14)
[2018-04-09] MEDS: DOCUSATE SODIUM 100 MG CAPSULE PO SCH ×2 (09:30→18:03)
[2018-04-09] MEDS: CARBOXYMETHYLCELLULOSE SOD 0.5% 0.4 ML DROPERETTE OU SCH ×4 (09:30→23:12)
[2018-04-09] MEDS: RANOLAZINE 500 MG TAB.SR.12H PO SCH ×2 (09:30→23:13)
[2018-04-09] MEDS: INSULIN DETEMIR 100 UNIT/ML 3 ML PEN SUBCUT SCH (09:31)
[2018-04-09] MEDS: POLYETHYLENE GLYCOL 3350 POWDER 17 GM/1 PACKET PO SCH (09:32)
[2018-04-09] MEDS ORDERED: (PENDING PHARMACY ID) (Linaclotide 145 MCG) PO SCH (10:00)
[2018-04-09] MEDS ORDERED: (PENDING PHARMACY ID) (Roflumilast [Daliresp 500 Mcg Tablet] 500 MCG) PO SCH (10:00)
--- NOTE | 2018-04-09 10:12 | EKG REPORT ---
SEVERITY:- ABNORMAL ECG - SINUS OR ECTOPIC ATRIAL TACHYCARDIA LEFT ANTERIOR FASCICULAR BLOCK LVH WITH SECONDARY REPOLARIZATION ABNORMALITY : Confirmed by: Yesenia Graham MD 09-Apr-2018 10:12:00
[2018-04-09] MEDS: BACLOFEN 10 MG TABLET PO PRN ×2 (10:40→23:14)
[2018-04-09] MEDS: CETIRIZINE 10 MG TABLET PO SCH (10:41)
[2018-04-09] MEDS ORDERED: LIDOCAINE 5% (700 MG) TRANSDERMAL ADH..PATCH TP ONE (11:30)
--- NOTE | 2018-04-09 16:29 | PDOC PROGRESS REPORT ---
Subjective Progress Note for:: 04/09/18 Subjective:: The patient is a 72 year old female with an extensive past medical history including chronic respiratory failure with hypoxia (baseline oxygen requirement of 2 L/min), COPD, ROSETTA (uses CPAP), CHF, hypertension, HLD, history NH, insulin- dependent diabetes mellitus, CAD, A. fib, anemia, CKD, GERD, chronic pain, depression with anxiety, and morbid obesity who was admitted 04/08/18 for acute on chronic respiratory failure with hypoxia secondary to COPD exacerbation. The patient is seen on morning rounds. She is found resting in bed comfortably on supplemental oxygen at her baseline requirement of 2 L/min. The patient tells me that he did use the BiPAP overnight with good relief of her dyspnea. She has many questions and concerns today about resuming her home medications; she requests Tessalon Perles, primrose oil, melatonin, and additionally request that she be started on a fentanyl patch for her chronic pain. Otherwise, the patient tells me that she is feeling much better. She denies fever, chills, chest pain, palpitations, orthopnea, abdominal pain, nausea vomiting and constipation. She does endorse dyspnea and productive cough. She has no other stated questions or concerns today. No concerns per nursing. Reason For Visit: ACUTE ON CHRONIC RESPIRATORY FAILURE,COPD Physical Exam Vital Signs: Temp Pulse Resp BP Pulse Ox 97.8 F 64 15 112/53 L 97 04/09/18 03:37 04/09/18 08:17 04/09/18 08:17 04/09/18 03:37 04/09/18 08:17 Intake & Output 04/08/18 04/09/18 04/10/18 06:59 06:59 06:59 Intake Total 670 100 Output Total 1000 Balance -330 100 Weight 90.2 kg 90.2 kg General appearance: PRESENT: no acute distress, morbidly obese, well-developed, well-nourished Head exam: PRESENT: atraumatic, normocephalic Eye exam: PRESENT: conjunctiva pink, EOMI, PERRLA. ABSENT: scleral icterus Ear exam: PRESENT: normal external ear exam Mouth exam: PRESENT: moist, tongue midline Neck exam: ABSENT: carotid bruit, JVD, lymphadenopathy, thyromegaly Respiratory exam: PRESENT: decreased breath sounds - Bibasilar, prolonged expiratory phas, rhonchi, symmetrical, unlabored, other - Supplemental oxygen by nasal cannula. ABSENT: rales, wheezes Cardiovascular exam: PRESENT: RRR, +S1, +S2, systolic murmur. ABSENT: diastolic murmur, rubs Pulses: PRESENT: normal dorsalis pedis pul Vascular exam: PRESENT: normal capillary refill GI/Abdominal exam: PRESENT: normal bowel sounds, soft. ABSENT: distended, guarding, mass, organolmegaly, rebound, tenderness Rectal exam: PRESENT: deferred Gentrourinary exam: PRESENT: indwelling catheter Extremities exam: PRESENT: full ROM. ABSENT: calf tenderness, clubbing, pedal edema Neurological exam: PRESENT: alert, awake, oriented to person, oriented to place , oriented to time, oriented to situation, CN II-XII grossly intact. ABSENT: motor sensory deficit Psychiatric exam: PRESENT: appropriate affect, normal mood. ABSENT: homicidal ideation, suicidal ideation Skin exam: PRESENT: dry, intact, warm. ABSENT: cyanosis, rash Results Laboratory Results: 04/09/18 05:42 04/09/18 05:42 04/09/18 04/09/18 05:42 05:42 WBC 16.2 H RBC 2.78 L Hgb 8.4 L D Hct 25.4 L MCV 91 MCH 30.2 MCHC 33.0 RDW 15.6 H Plt Count 177 Seg Neutrophils % Not Reportable Lymphocytes % Not Reportable Monocytes % Not Reportable Eosinophils % Not Reportable Basophils % Not Reportable Absolute Neutrophils Not Reportable Absolute Lymphocytes Not Reportable Absolute Monocytes Not Reportable Absolute Eosinophils Not Reportable Absolute Basophils Not Reportable Sodium 140.5 Potassium 4.2 Chloride 105 Carbon Dioxide 27 Anion Gap 9 BUN 30 H Creatinine 0.99 Est GFR ( Amer) > 60 Est GFR (Non-Af Amer) 55 L Glucose 199 H Calcium 9.1 04/09/18 05:42 Troponin I 0.014 Impressions: Chest X-Ray 04/09/18 07:00 IMPRESSION: Stable moderate cardiomegaly Assessment & Plan - Diagnosis (1) Acute and chronic respiratory failure with hypoxia Is this a current diagnosis for this admission?: Yes Plan: Improved; acute on chronic respiratory failure in the setting of COPD, CHF, morbid obesity, ROSETTA and patient who is chronically O2 dependent at Secondary to COPD exacerbation following treatment for healthcare associated pneumonia (patient is a resident of [facility]) with oral antibiotics. Chest x-ray is unremarkable. Repeat CXR today was unchanged. No longer believe patient has a current pneumonia. Blood cultures are pending. Sputum cultures are pending. Flu screening is pending. The patient is admitted to the telemetry floor. She is placed on supplemental oxygen and BiPAP as needed to maintain oxygen saturations greater than 89%. Continue scheduled and as needed nebulizer treatments. Continue her home dose Daliresp. IV Solu-Medrol 40 mg every 8 hours. Mucinex twice daily. Flutter valve and incentive spirometry at bedside. (2) COPD exacerbation Is this a current diagnosis for this admission?: Yes Plan: Plan as above. Supplemental oxygen, BiPAP, nebulizer treatments, IV Solu-Medrol, Mucinex, empiric antibiotics. (3) ARF (acute renal failure) Qualifiers: Acute renal failure type: unspecified Qualified Code(s): N17.9 - Acute kidney failure, unspecified Is this a current diagnosis for this admission?: Yes Plan: Improved; Cr 1.39--> 0.99. BUN also trending down. Likely secondary to insensible losses (fever of 102.8). Gentle IV fluid rehydration. Encourage p.o. fluids. Avoid nephrotoxic medications as able. Pharmacy to dose vancomycin. Daily chemistries. (4) Anemia Qualifiers: Anemia type: iron deficiency Iron deficiency anemia type: unspecified iron deficiency Qualified Code(s): D50.9 - Iron deficiency anemia, unspecified Is this a current diagnosis for this admission?: Yes Plan: Patient is noted to be at her baseline; hemoglobin 10.8 on admission; decreased to 8.4 following IVF. Will check occult stool. Continue home dose ferrous sulfate supplementation. (5) Constipation Qualifiers: Constipation type: unspecified constipation type Qualified Code(s): K59.00 - Constipation, unspecified Is this a current diagnosis for this admission?: Yes Plan: Likely secondary to chronic opiate use and immobility. She is placed on daily Colace, milk of magnesia as needed, Linzess (if available ; this is a home medication). Start daily Miralax. Consider Lactulose. 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 Humalog for sliding scale coverage. Continue her home dose Levemir. Registered dietitian is consulted; appreciate dietary recommendations. (7) Gastroesophageal reflux disease Qualifiers: Esophagitis presence: without esophagitis Qualified Code(s): K21.9 - Gastro -esophageal reflux disease without esophagitis Is this a current diagnosis for this admission?: Yes Plan: PPI. (8) HTN (hypertension) Qualifiers: Hypertension type: essential hypertension Qualified Code(s): I10 - Essential (primary) hypertension Is this a current diagnosis for this admission?: Yes Plan: The patient's home medications are continued: Diltiazem, hydralazine, metoprolol , Ranexa (9) Morbid obesity Is this a current diagnosis for this admission?: Yes Plan: Dietary discretion is advised. Registered dietitian is consulted. (10) Obstructive sleep apnea Is this a current diagnosis for this admission?: Yes Plan: BiPAP nightly and as needed. (11) Chronic pain Qualifiers: Chronic pain type: chronic pain syndrome Qualified Code(s): G89.4 - Chronic pain syndrome Is this a current diagnosis for this admission?: Yes Plan: The patient's home medication regimen is continued: Cymbalta, oxycodone 10 mg every 6 hours, and Lyrica 75 mg every 8 hours. Patient requests to continue her personally provided [place] Oil and Biofreeze for arthritic pain. She also requests a pain management evaluation for fentanyl patches (reports she was previously on them); will see if [facility] is available. Start Lidoderm patches. (12) UTI (urinary tract infection) Qualifiers: Urinary tract infection type: site unspecified Hematuria presence: without hematuria Qualified Code(s): N39.0 - Urinary tract infection, site not specified Is this a current diagnosis for this admission?: Yes Plan: Catheter associated UTI; urinalysis is grossly positive for urinary tract infection with nitrites, leuk esterase, WBCs, and bacteria. Urine culture growing gram-negative rods Blood cultures pending. Chronic Barton catheter is exchanged. The patient was empirically placed on IV vancomycin and Zosyn at time of admission. Fortunately, the patient's previous multidrug-resistant E. coli ESBL is sensitive to Zosyn. We will continue current antibiotic regiment and adjust as culture identification and sensitivities result. Consider infectious disease consultation. - Time Time Spent with patient: 35 or more minutes Medications reviewed and adjusted accordingly: Yes Anticipated discharge: [facility] Within: within 72 hours
[2018-04-09] MEDS: VANCOMYCIN HCL 750 MG in DEXTROSE 5%-WATER 250 ML IV SCH (16:38)
[2018-04-09] MEDS: NORMAL SALINE 1000 ML 1,000 ML IV PRN (18:03)
[2018-04-09] MEDS ORDERED: (PENDING PHARMACY ID) (Melatonin [Melatonin] 10 MG) PO SCH (22:00)
[2018-04-09] MEDS: MELATONIN 5 MG TABLET PO SCH (23:14)
[2018-04-09] MEDS: BENZONATATE 100 MG CAPSULE PO PRN (23:15)
[2018-04-09] MEDS: SENNOSIDES/DOCUSATE 8.6-50 MG 1 EACH TABLET PO SCH (23:15)
[2018-04-10] MEDS: IPRATROPIUM/ALBUTEROL 0.5-2.5 MG/3 ML AMPUL NEB SCH ×3 (01:07→16:33)
[2018-04-10 04:11] LABS: HEMOGLOBIN 8.2 g/dL (12.0-15.5); MEAN CORPUSCULAR HEMOGLOBIN 29.8 pg (27.0-33.4); MEAN CORPUSCULAR HGB CONC 32.7 g/dL (32.0-36.0); MEAN CORPUSCULAR VOLUME 91 fl (80-97); PLATELET COUNT 175 10^3/uL (150-450); RED BLOOD COUNT 2.74 10^6/uL (3.72-5.28); RED CELL DISTRIBUTION WIDTH 15.2 % (11.5-14.0)
[2018-04-10 04:35] LABS: BLOOD UREA NITROGEN 30 mg/dL (7-20); CALCIUM 8.8 mg/dL (8.4-10.2); CARBON DIOXIDE 29 mmol/L (22-30); CHLORIDE 106 mmol/L (98-107); GLUCOSE 171 mg/dL (75-110); POTASSIUM 4.7 mmol/L (3.6-5.0)
[2018-04-10 04:40] LABS: SODIUM 138.6 mmol/L (137-145)
[2018-04-10 04:43] LABS: ANION GAP 4 (5-19)
[2018-04-10] MEDS: PIPERACILLIN SODIUM/TAZOBACTAM 3.375 GM in NORMAL SALINE 100 ML IV SCH ×3 (06:43→17:03)
[2018-04-10] MEDS: HEPARIN SOD (PORCINE) 5,000 UNIT/ML 1 ML SYRINGE SUBCUT SCH ×3 (06:43→22:35)
[2018-04-10] MEDS: METHYLPREDNISOLONE INJ 40 MG/1 ML SDV IV SCH ×3 (06:43→22:35)
[2018-04-10] MEDS: OXYCODONE HCL IR 5 MG TABLET PO SCH ×2 (06:46→12:48)
[2018-04-10] MEDS: PREGABALIN 75 MG CAPSULE PO SCH ×3 (06:46→22:36)
[2018-04-10] MEDS: LANSOPRAZOLE 15 MG TAB.RAP.DR PO SCH (06:46)
[2018-04-10] MEDS: DILTIAZEM HCL 60 MG TABLET PO SCH ×3 (06:47→22:38)
[2018-04-10] MEDS: HYDRALAZINE HCL 25 MG TABLET PO SCH ×3 (06:47→22:37)
--- NOTE | 2018-04-10 07:56 | CONSULTATION REPORT E ---
Consultation Report NAME: PORSHA WALDRON : 1945 AGE: 72Y DATE: 04/10/2018 405 A TO: JD DUMONT M.D. FROM: ALLAN AYOUB M.D. Requesting Physician ATTENDING PROVIDER: Sergio CHIEF COMPLAINT: Chronic pain. HISTORY: This is a 72-year-old patient with longstanding chronic pain syndrome and multiple medical problems, including chief complaint of shortness of breath resulting in admission and cardiac and pulmonary workup. Consultation for pain management has been made to assist in both the inpatient setting as well as future outpatient setting. The patient states that she has been in the pain clinic at [facility] in the past a number of years ago. She has been evaluated by one of the other local pain clinics in [facility], which she was not satisfied with. She had her medications converted at that time from fentanyl 25 and oxycodone 5 mg four times daily as needed plus baclofen and Lyrica, to oxycodone 10 mg q.6 hours which resulted in diminished pain control and increased anxiety, and decreased mobility. She has asked to be considered to be placed back on those medications, where she felt considerably more stable and to the best of her knowledge did not have any additional untoward side effects such as altered mental status or exacerbation of her respiratory status. It should be noted she is on CPAP and that has helped immensely with managing her sleep apnea syndrome and sleep hypoxia. PAST MEDICAL HISTORY: 1. Atrial fibrillation. 2. Congestive heart failure. PULMONARY HISTORY: 1. Chronic obstructive pulmonary disease. 2. Bronchitis. 3. History of asthma. 4. Occasional pneumonia. She denies a history of tuberculosis. REVIEW OF SYSTEMS: CONSTITUTIONAL: No acute changes other than those documented in the past medical history. HEENT: Noncontributory. NEUROLOGY: No prior history of stroke or seizure disorder. ENDOCRINE: Remarkable for type 2 diabetes associated with morbid obesity. Renal function demonstrates mild chronic renal insufficiency. Denies history of malignancy. GASTROINTESTINAL: Positive for hiatal hernia and reflux. MUSCULOSKELETAL: History of fibromyalgia, degenerative disease, gout, psoriasis. She is status post multiple hip surgeries. She denies back surgery. PSYCHIATRY: Reports depression and some degree of anxiety. INFECTIOUS DISEASE: She does have C. difficile and history of Methicillin resistant staphylococcus aureus. PAST SURGICAL HISTORY: 1. Appendectomy. 2. Cholecystectomy. 3. Hysterectomy. 4. Multiple orthopedic procedures. SOCIAL HISTORY: She lives in a longterm. She is a former smoker. Denies alcohol or recreational drug use. There is no history of prescription drug abuse. FAMILY HISTORY: Remarkable for diabetes, hypertension, coronary artery disease. ALLERGIES: TYLENOL, ACETYLCYSTEINE. MEDICATIONS: Extensive. They are well documented in the chart. With respect to her pain, she is on: 1. Baclofen 10 mg q.8 hours. 2. Duloxetine 90 mg daily. 3. Oxycodone 10 mg four times daily. 4. Lidocaine patch as needed. 5. Lyrica 75 mg three times daily. 6. Prednisone as needed. PHYSICAL EXAMINATION: GENERAL: She is on CPAP. She is awake. Her speech is clear and fluent. Mild shortness of breath during conversation. HEENT: Unremarkable. EOMs are full. Conjunctivae clear. Sclerae are white. NECK: Significant obesity. Pulses cannot be felt. RESPIRATORY: Decreased inspiration. CARDIAC: Regular rhythm. ABDOMEN: Morbidly obese, nontender. EXTREMITIES: Tenderness over the shoulder and elbow joints. There is no calf tenderness bilaterally. PSYCHIATRIC: Her mood is appropriate. SKIN: Some bruising. IMPRESSION: HISTORY OF CHRONIC PAIN AND MULTIPLE MEDICAL PROBLEMS. With respect to the chronic pain, we will place her back on her fentanyl and decrease her oxycodone dose. She has requested to be seen as an outpatient in the pain clinic, and we will accommodate that upon her discharge. Will follow this patient with you. DICTATING PHYSICIAN: JD DUMONT M.D. [id number] PHY#: [id number] ID: [id number] JOB#: [id number] ACCT: [id number] cc:JD DUMONT M.D. >
[2018-04-10] MEDS: INSULIN LISPRO 100 UNIT/ML 3 ML VIAL SUBCUT PRN ×3 (08:01→22:34)
[2018-04-10] MEDS: PHENAZOPYRIDINE HCL 200 MG TABLET PO SCH ×3 (09:43→17:03)
[2018-04-10] MEDS: FENTANYL 25 MCG/HR PATCH.TD72 TD SCH (09:43)
[2018-04-10] MEDS: DOCUSATE SODIUM 100 MG CAPSULE PO SCH ×2 (09:44→17:02)
[2018-04-10] MEDS: ASPIRIN 81 MG TABLET, CHEWABLE PO SCH (09:44)
[2018-04-10] MEDS: BUSPIRONE HCL 10 MG TABLET PO SCH ×2 (09:44→22:36)
[2018-04-10] MEDS: INSULIN DETEMIR 100 UNIT/ML 3 ML PEN SUBCUT SCH (09:45)
[2018-04-10] MEDS: ROFLUMILAST 500 MCG TABLET PO SCH (09:45)
[2018-04-10] MEDS: FUROSEMIDE 20 MG TABLET PO SCH ×2 (09:45→17:03)
[2018-04-10] MEDS: TAMSULOSIN HCL 0.4 MG CAP.SR.24H PO SCH (09:45)
[2018-04-10] MEDS: FERROUS SULFATE 325 MG TABLET PO SCH ×2 (09:45→17:03)
[2018-04-10] MEDS: DULOXETINE HCL 30 MG CAPSULE.DR PO SCH (09:45)
[2018-04-10] MEDS: LIDOCAINE 5% (700 MG) TRANSDERMAL ADH..PATCH TP SCH (09:46)
[2018-04-10] MEDS: POLYETHYLENE GLYCOL 3350 POWDER 17 GM/1 PACKET PO SCH (09:46)
[2018-04-10] MEDS: GUAIFENESIN 600 MG TABLET.SA PO SCH ×2 (09:46→22:37)
[2018-04-10] MEDS: METOPROLOL SUCCINATE 50 MG TAB.SR.24H PO SCH (09:47)
[2018-04-10] MEDS: RANOLAZINE 500 MG TAB.SR.12H PO SCH ×2 (09:47→22:41)
[2018-04-10] MEDS: CETIRIZINE 10 MG TABLET PO SCH (09:47)
[2018-04-10] MEDS: CARBOXYMETHYLCELLULOSE SOD 0.5% 0.4 ML DROPERETTE OU SCH ×4 (09:47→22:41)
[2018-04-10] MEDS ORDERED: FUROSEMIDE 40 MG TABLET PO SCH (10:00)
--- NOTE | 2018-04-10 14:57 | Physician Advisory Note ---
Physician Advisor ProgressNote .: Pursuant to the plan for Brad [facility], I have reviewed the medical record for this patient. Physician Advisor Statement: Very nice documentation of ac on chr resp failure, COPD exac, JASPREET. (Pt w/tachypnea 23-26, & tachycardia 120, initially; usually needs 2-3L O2, but needing 5L in ED to keep sats at 90%.) Please consider documenting, if you agree: 1. "Chronic diastolic CHF" 2. "Suspected acute bronchitis" or what is the reason for "empiric abx" for COPD exac? Or are the abx just for the UTI? 3. "chronic opioid dependence for " Thanks! CK
[2018-04-10] MEDS: VANCOMYCIN HCL 750 MG in DEXTROSE 5%-WATER 250 ML IV SCH (16:56)
--- NOTE | 2018-04-10 17:03 | PDOC PROGRESS REPORT ---
Subjective Progress Note for:: 04/10/18 Subjective:: The patient is a 72 year old female with an extensive past medical history including chronic respiratory failure with hypoxia (baseline oxygen requirement of 2 L/min), COPD, ROSETTA (uses CPAP), CHF, hypertension, HLD, history [place], insulin- dependent diabetes mellitus, CAD, A. fib, anemia, CKD, GERD, chronic pain, depression with anxiety, and morbid obesity who was admitted 04/08/18 for acute on chronic respiratory failure with hypoxia secondary to COPD exacerbation. The patient is seen on morning rounds. She is found resting in bed comfortably on supplemental oxygen at her baseline requirement of 2 L/min. The patient tells me that she is feeling much better today and has no new questions or complaints. She is very satisfied with [facility] who came to see her yesterday to evaluate her chronic pain with recommendations for fentanyl and adjustments to her as needed medications. She reports that her breathing is much improved with decreased dyspnea and productive cough. She denies fever, chills, chest pain, palpitations, orthopnea, abdominal pain, nausea vomiting and constipation. She does endorse dyspnea and productive cough. She has no other stated questions or concerns today. No concerns per nursing. Reason For Visit: ACUTE ON CHRONIC RESPIRATORY FAILURE,COPD Physical Exam Vital Signs: Temp Pulse Resp BP Pulse Ox 98 F 57 L 16 120/59 L 98 04/10/18 11:00 04/10/18 14:00 04/10/18 11:00 04/10/18 11:00 04/10/18 11:00 Intake & Output 04/09/18 04/10/18 04/11/18 06:59 06:59 06:59 Intake Total 0229 018 9586 Output Total 1000 Balance 355 417 8933 Weight 90.2 kg 96 kg General appearance: PRESENT: no acute distress, cooperative, obese, well- developed, well-nourished Head exam: PRESENT: atraumatic, normocephalic Eye exam: PRESENT: conjunctiva pink, EOMI, PERRLA. ABSENT: scleral icterus Ear exam: PRESENT: normal external ear exam Mouth exam: PRESENT: moist, tongue midline Neck exam: ABSENT: carotid bruit, JVD, lymphadenopathy, thyromegaly Respiratory exam: PRESENT: clear to auscultation elia, decreased breath sounds - Bibasilar; secondary to body habitus poor respiratory effort, symmetrical, other - Baseline oxygen requirement. ABSENT: rales, rhonchi, wheezes Cardiovascular exam: PRESENT: RRR, +S1, +S2, systolic murmur. ABSENT: diastolic murmur, rubs Pulses: PRESENT: normal dorsalis pedis pul Vascular exam: PRESENT: normal capillary refill GI/Abdominal exam: PRESENT: normal bowel sounds, soft. ABSENT: distended, guarding, mass, organolmegaly, rebound, tenderness Rectal exam: PRESENT: deferred Gentrourinary exam: PRESENT: indwelling catheter Extremities exam: PRESENT: full ROM. ABSENT: calf tenderness, clubbing, pedal edema Neurological exam: PRESENT: alert, awake, oriented to person, oriented to place , oriented to time, oriented to situation, CN II-XII grossly intact. ABSENT: motor sensory deficit Psychiatric exam: PRESENT: appropriate affect, normal mood. ABSENT: homicidal ideation, suicidal ideation Skin exam: PRESENT: dry, intact, warm. ABSENT: cyanosis, rash Results Laboratory Results: 04/10/18 03:35 04/10/18 03:35 04/10/18 04/10/18 04/10/18 03:35 03:35 07:10 WBC 12.0 H RBC 2.74 L Hgb 8.2 L Hct 25.0 L MCV 91 MCH 29.8 MCHC 32.7 RDW 15.2 H Plt Count 175 Sodium 138.6 Potassium 4.7 Chloride 106 Carbon Dioxide 29 Anion Gap 4 L BUN 30 H Creatinine 0.98 Est GFR ( Amer) > 60 Est GFR (Non-Af Amer) 55 L Glucose 171 H Calcium 8.8 Stool Occult Blood NEGATIVE 04/09/18 05:42 Troponin I 0.014 Impressions: Chest X-Ray 04/09/18 07:00 IMPRESSION: Stable moderate cardiomegaly Assessment & Plan - Diagnosis (1) Acute and chronic respiratory failure with hypoxia Is this a current diagnosis for this admission?: Yes Plan: Improved; acute on chronic respiratory failure in the setting of COPD, CHF, morbid obesity, ROSETTA and patient who is chronically O2 dependent at Secondary to COPD exacerbation following treatment for healthcare associated pneumonia (patient is a resident of [facility]) with oral antibiotics. Chest x-ray is unremarkable. Repeat CXR yesterday was unchanged. No longer believe patient has a current pneumonia. Blood cultures have no growth at 48 hours. Sputum cultures has not yet been obtained. Flu screening has not yet been obtained. The patient is admitted to the telemetry floor. She is placed on supplemental oxygen and BiPAP as needed to maintain oxygen saturations greater than 89%. Continue scheduled and as needed nebulizer treatments. Continue her home dose Daliresp. Have begun weaning Solu-Medrol. Mucinex twice daily. Flutter valve and incentive spirometry at bedside. (2) COPD exacerbation Is this a current diagnosis for this admission?: Yes Plan: Plan as above. Supplemental oxygen, BiPAP, nebulizer treatments, IV Solu-Medrol, Mucinex. Although antibiotics are being continued for UTI; I do not believe the patient has a pneumonia or bronchitis as she is not producing sputum, is afebrile, and has had rapid improvement in her respiratory status. (3) ARF (acute renal failure) Qualifiers: Acute renal failure type: unspecified Qualified Code(s): N17.9 - Acute kidney failure, unspecified Is this a current diagnosis for this admission?: Yes Plan: Improved; Cr 1.39--> 0.98. BUN also trending down. Likely secondary to insensible losses (fever of 102.8). Encourage p.o. fluids. Avoid nephrotoxic medications as able. Pharmacy to dose vancomycin. Daily chemistries. (4) Anemia Qualifiers: Anemia type: iron deficiency Iron deficiency anemia type: unspecified iron deficiency Qualified Code(s): D50.9 - Iron deficiency anemia, unspecified Is this a current diagnosis for this admission?: Yes Plan: Patient is noted to be at her baseline; hemoglobin 10.8 on admission; decreased to 8.4 following IVF. Occult stool is negative. Continue home dose ferrous sulfate supplementation. (5) Constipation Qualifiers: Constipation type: unspecified constipation type Qualified Code(s): K59.00 - Constipation, unspecified Is this a current diagnosis for this admission?: Yes Plan: Likely secondary to chronic opiate use and immobility. She is placed on daily Colace, milk of magnesia as needed, Linzess (if available ; this is a home medication). Start daily Miralax. Consider Lactulose. (6) Diabetes mellitus Qualifiers: Diabetes mellitus type: type 2 Diabetes mellitus buttermaker insulin use: with buttermaker use Diabetes mellitus complication detail: with chronic kidney disease Chronic kidney disease stage: stage 3 (moderate) Is this a current diagnosis for this admission?: Yes Plan: The patient is placed on a consistent carb diet with Accu-Cheks before meals and at bedtime. Humalog for sliding scale coverage. Continue her home dose Levemir. Registered dietitian is consulted; appreciate dietary recommendations. (7) Gastroesophageal reflux disease Qualifiers: Esophagitis presence: without esophagitis Qualified Code(s): K21.9 - Gastro -esophageal reflux disease without esophagitis Is this a current diagnosis for this admission?: Yes Plan: PPI. (8) HTN (hypertension) Qualifiers: Hypertension type: essential hypertension Qualified Code(s): I10 - Essential (primary) hypertension Is this a current diagnosis for this admission?: Yes Plan: The patient's home medications are continued: Diltiazem, hydralazine, metoprolol , Ranexa (9) Morbid obesity Is this a current diagnosis for this admission?: Yes Plan: Dietary discretion is advised. Registered dietitian is consulted. (10) Obstructive sleep apnea Is this a current diagnosis for this admission?: Yes Plan: BiPAP nightly and as needed. (11) Chronic pain Qualifiers: Chronic pain type: chronic pain syndrome Qualified Code(s): G89.4 - Chronic pain syndrome Is this a current diagnosis for this admission?: Yes Plan: The patient reports chronic orthopedic pain related to arthritis and multiple hip revisions. Dr. Hale with [facility] did evaluate the patient; she is very grateful for his evaluation recommendations. Dr. Hale has recommended fentanyl 25 mcg Duragesic patch with decreased oxycodone dosing. She continues on her Cymbalta and Lyrica. The patient is very optimistic that his offered to continue seeing her on an outpatient basis. (12) UTI (urinary tract infection) Qualifiers: Urinary tract infection type: site unspecified Hematuria presence: without hematuria Qualified Code(s): N39.0 - Urinary tract infection, site not specified Is this a current diagnosis for this admission?: Yes Plan: Catheter associated UTI; urinalysis is grossly positive for urinary tract infection with nitrites, leuk esterase, WBCs, and bacteria. Urine culture positive for ESBL E. coli; sensitive to Zosyn. Blood cultures are negative at 48 hours. Chronic Barton catheter is exchanged. The patient was empirically placed on IV vancomycin and Zosyn at time of admission. Fortunately, the patient's previous multidrug-resistant E. coli ESBL is sensitive to Zosyn. We will continue IV Zosyn for treatment of ESBL E. coli. Plan to discontinue vancomycin once blood cultures are negative at 72 hours. Consider infectious disease consultation. (13) Chronic diastolic CHF (congestive heart failure) Is this a current diagnosis for this admission?: Yes Plan: The patient's lung sounds are clear, no peripheral edema; no acute exacerbation at this time. Lasix was briefly held secondary to dehydration. Have resumed at half her home dose today. Will monitor closely for additional titration needs. The patient's home medications are continued: Diltiazem, hydralazine, metoprolol , Ranexa. - Time Time Spent with patient: 15-24 minutes Medications reviewed and adjusted accordingly: Yes Anticipated discharge: [facility] [place]
[2018-04-10] MEDS: OXYCODONE HCL IR 5 MG TABLET PO PRN (22:36)
[2018-04-10] MEDS: BENZONATATE 100 MG CAPSULE PO PRN (22:36)
[2018-04-10] MEDS: SENNOSIDES/DOCUSATE 8.6-50 MG 1 EACH TABLET PO SCH (22:37)
[2018-04-10] MEDS: BACLOFEN 10 MG TABLET PO PRN (22:38)
[2018-04-10] MEDS: MELATONIN 5 MG TABLET PO SCH (22:40)
[2018-04-11] MEDS: IPRATROPIUM/ALBUTEROL 0.5-2.5 MG/3 ML AMPUL NEB SCH ×2 (00:11→08:44)
[2018-04-11] MEDS: PIPERACILLIN SODIUM/TAZOBACTAM 3.375 GM in NORMAL SALINE 100 ML IV SCH ×2 (01:35→06:58)
[2018-04-11 06:12] LABS: HEMATOCRIT 26.4 % (36.0-47.0); HEMOGLOBIN 8.7 g/dL (12.0-15.5); MEAN CORPUSCULAR HEMOGLOBIN 30.4 pg (27.0-33.4); MEAN CORPUSCULAR HGB CONC 33.1 g/dL (32.0-36.0); MEAN CORPUSCULAR VOLUME 92 fl (80-97); PLATELET COUNT 176 10^3/uL (150-450); RED BLOOD COUNT 2.88 10^6/uL (3.72-5.28); RED CELL DISTRIBUTION WIDTH 15.2 % (11.5-14.0); WHITE BLOOD COUNT 9.2 10^3/uL (4.0-10.5)
--- NOTE | 2018-04-11 06:31 | Progress Note ---
Provider Note Provider Note: ID Consult Note Asked to review patient's chart by Pharmacy. Pt not seen or examined. Ms Fernandez is a 72 year old woman with PMH including obesity, DM, COPD, ROSETTA, CAD, AF, CKD, GERD, chronic pain, and chronic respiratory failure on home oxygen. She presented to [facility] with c/o generalized body aches, fever to 102.8 per EMS , dyspnea, and increased hypoxia. Pt reported recently completing an antibiotic course but then having subsequent worsening with chest pain and above complaints. In ED she was noted to be afebrile but tachypnic and tachycardic with decreased breath sounds on exam with prolonged expiratory phase and wheezes throughout, and she required increased oxygen supplementation. Abdomen was nontender. Pt also has a chronic ghotra catheter. Pt was given nebulizer treatments, IV solumedrol, Bipap. She was admitted for acute on chronic respriatory failure secondary to acute exacerbation of COPD, also JSAPREET on CKD. Initial CXR negative for acute process. IV Zosyn and vancomycin were initiated, along with IVF. SCr improved. WBC increased. Repeat CXR on 04/09 read as showing cardiomegaly, no pleural effusion no opacities in lungs. BCx showed no growth. Per most recent provider evaluation, pt has had resolution of sputum production and has had rapid improvement in respiratory status. She has remained afebrile. She has returned to baseline O2 requirement. Based on U/A showing many WBCs, nitrites, leukocyte esterase pt was given diagnosis of UTI. UCx from admission grew >100k cfu ESBL E coli. Ghotra was exchanged. Currently pt remains on vancomycin and Zosyn. Impression/Recommendations Acute exacerbation of COPD; agree, no evidence of pneumonia Leukocytosis - likely reflects steroid effect with pt clinically improving Asymptomatic bacteriuria - urinary colonization with ESBL E coli Typical duration of antibiotics in hospitalized patients with severe acute exacerbation of COPD that might benefit from adjunctive antibiotic therapy is in the range of 3-5 days. Pt has already completed 3 days of vancomycin and Zosyn empirically with return to baseline oxygen requirement, rapid improvement. Today 04/11/18 will be day 4. Doubt much additional benefit would be obtained with continuing further if patient has had resolution of presenting symptoms. Recommend discontinuing vancomycin and Zosyn. Lack of pyuria on U/A has good negative predictive value and can rule out UTI. However, abnormal U/A is non-specific enough to rule-in a UTI. Putting a foreign device in the bladder causes inflammation. As a result, chronically catheterized patients will essentially always have an abnormal urinalysis. Nearly, all patients who have chronic ghotra catheters will also have urine culture growth as well. UTI is a clinical diagnosis. Diagnosis of a UTI would depend on presence of typical symptoms . Someone with a ghotra might still have suprapubic tenderness or discomfort or it may end up being a diagnosis of exclusion if unexplained fever or altered mental status when other etiologies have been ruled out. Ms Fernandez appears to have asymptomatic bacteriuria or colonization with ESBL E coli rather than a UTI (came to hospital for COPD exacerbation, better with COPD exacerbation treatment, no fever, no abd pain). No antibiotic therapy is indicated for asymptomatic bacteriuria. Antibiotics for asymptomatic bacteriuria will not improve outcomes or prevent a future UTI but could cause adverse effects or increase resistance. Outside of or an impending invasive urologic procedure, no antibiotic therapy is indicated for asymptomatic bacteriuria. Charli Orozco MD [facility] pager [phone]
[2018-04-11 06:33] LABS: ANION GAP 6 (5-19); BLOOD UREA NITROGEN 36 mg/dL (7-20); CARBON DIOXIDE 28 mmol/L (22-30); CHLORIDE 103 mmol/L (98-107); GLUCOSE 223 mg/dL (75-110); POTASSIUM 4.9 mmol/L (3.6-5.0); SODIUM 137.3 mmol/L (137-145)
[2018-04-11] MEDS: HEPARIN SOD (PORCINE) 5,000 UNIT/ML 1 ML SYRINGE SUBCUT SCH ×3 (06:58→23:54)
[2018-04-11] MEDS: METHYLPREDNISOLONE INJ 40 MG/1 ML SDV IV SCH ×3 (06:58→23:54)
[2018-04-11] MEDS: LANSOPRAZOLE 15 MG TAB.RAP.DR PO SCH (06:59)
[2018-04-11] MEDS: HYDRALAZINE HCL 25 MG TABLET PO SCH ×3 (06:59→23:58)
[2018-04-11] MEDS: DILTIAZEM HCL 60 MG TABLET PO SCH ×3 (06:59→23:58)
[2018-04-11] MEDS: OXYCODONE HCL IR 5 MG TABLET PO PRN ×2 (06:59→23:58)
[2018-04-11] MEDS: PREGABALIN 75 MG CAPSULE PO SCH ×3 (07:00→23:56)
[2018-04-11] MEDS: PHENAZOPYRIDINE HCL 200 MG TABLET PO SCH ×3 (09:04→17:53)
[2018-04-11] MEDS: BACLOFEN 10 MG TABLET PO PRN ×2 (09:04→23:57)
[2018-04-11] MEDS: INSULIN LISPRO 100 UNIT/ML 3 ML VIAL SUBCUT PRN ×4 (09:04→23:54)
[2018-04-11] MEDS ORDERED: FUROSEMIDE 20 MG TABLET PO SCH (10:00)
[2018-04-11] MEDS: POLYETHYLENE GLYCOL 3350 POWDER 17 GM/1 PACKET PO SCH (10:04)
[2018-04-11] MEDS: FERROUS SULFATE 325 MG TABLET PO SCH ×2 (10:05→17:53)
[2018-04-11] MEDS: ASPIRIN 81 MG TABLET, CHEWABLE PO SCH (10:05)
[2018-04-11] MEDS: METOPROLOL SUCCINATE 50 MG TAB.SR.24H PO SCH (10:05)
[2018-04-11] MEDS: DOCUSATE SODIUM 100 MG CAPSULE PO SCH ×2 (10:05→17:53)
[2018-04-11] MEDS: BUSPIRONE HCL 10 MG TABLET PO SCH ×2 (10:05→23:56)
[2018-04-11] MEDS: TAMSULOSIN HCL 0.4 MG CAP.SR.24H PO SCH (10:05)
[2018-04-11] MEDS: DULOXETINE HCL 30 MG CAPSULE.DR PO SCH (10:05)
[2018-04-11] MEDS: GUAIFENESIN 600 MG TABLET.SA PO SCH ×2 (10:05→23:55)
[2018-04-11] MEDS: LIDOCAINE 5% (700 MG) TRANSDERMAL ADH..PATCH TP SCH (10:07)
[2018-04-11] MEDS: ROFLUMILAST 500 MCG TABLET PO SCH (10:07)
[2018-04-11] MEDS: RANOLAZINE 500 MG TAB.SR.12H PO SCH ×2 (10:08→23:55)
[2018-04-11] MEDS: INSULIN DETEMIR 100 UNIT/ML 3 ML PEN SUBCUT SCH (10:08)
[2018-04-11] MEDS: CARBOXYMETHYLCELLULOSE SOD 0.5% 0.4 ML DROPERETTE OU SCH ×4 (10:08→23:57)
[2018-04-11] MEDS: CETIRIZINE 10 MG TABLET PO SCH (10:09)
--- NOTE | 2018-04-11 15:35 | PDOC PROGRESS REPORT ---
Subjective Progress Note for:: 04/11/18 Subjective:: The patient is a 72 year old female with an extensive past medical history including chronic respiratory failure with hypoxia (baseline oxygen requirement of 2 L/min), COPD, ROSETTA (uses CPAP), CHF, hypertension, HLD, history [place], insulin- dependent diabetes mellitus, CAD, A. fib, anemia, CKD, GERD, chronic pain, depression with anxiety, and morbid obesity who was admitted 04/08/18 for acute on chronic respiratory failure with hypoxia secondary to COPD exacerbation. The patient is seen on morning rounds. She is found resting in bed comfortably on supplemental oxygen at 3 L/min (baseline is 2 lpm). The patient tells me that she "had a rough time" breathing overnight but is unable to elaborate further. She denies chest pain, palpitations, orthopnea, and cough. When asked specifically about shortness of breath, she repeats "I just had a rough time." Otherwise, she does state that she feels like she is "getting better each day." She denies fever, chills, chest pain, palpitations, orthopnea, abdominal pain, nausea vomiting and constipation. She has no other stated questions or concerns today. No concerns per nursing. Reason For Visit: ACUTE ON CHRONIC RESPIRATORY FAILURE,COPD Physical Exam Vital Signs: Temp Pulse Resp BP Pulse Ox 98.8 F 57 L 18 136/59 H 95 04/11/18 12:00 04/11/18 12:00 04/11/18 12:00 04/11/18 12:00 04/11/18 12:00 Intake & Output 04/10/18 04/11/18 04/12/18 06:59 06:59 06:59 Intake Total 400 2752 100 Output Total 1850 1800 Balance 400 902 -1700 Weight 96 kg 98.5 kg General appearance: PRESENT: no acute distress, obese, well-developed, well- nourished Head exam: PRESENT: atraumatic, normocephalic Eye exam: PRESENT: conjunctiva pink, EOMI, PERRLA. ABSENT: scleral icterus Ear exam: PRESENT: normal external ear exam Mouth exam: PRESENT: moist, tongue midline Neck exam: ABSENT: carotid bruit, JVD, lymphadenopathy, thyromegaly Respiratory exam: PRESENT: decreased breath sounds, prolonged expiratory phas, rhonchi - Bibasilar, symmetrical, wheezes - Occasional expiratory wheeze, other. ABSENT: rales, tachypnea Cardiovascular exam: PRESENT: RRR, +S1, +S2, systolic murmur - Supplemental oxygen via nasal cannula. ABSENT: diastolic murmur, rubs Pulses: PRESENT: normal dorsalis pedis pul Vascular exam: PRESENT: normal capillary refill GI/Abdominal exam: PRESENT: normal bowel sounds, soft. ABSENT: distended, guarding, mass, organolmegaly, rebound, tenderness Rectal exam: PRESENT: deferred Gentrourinary exam: PRESENT: indwelling catheter Extremities exam: PRESENT: full ROM. ABSENT: calf tenderness, clubbing, pedal edema Neurological exam: PRESENT: alert, awake, oriented to person, oriented to place , oriented to time, oriented to situation, CN II-XII grossly intact. ABSENT: motor sensory deficit Psychiatric exam: PRESENT: appropriate affect, normal mood. ABSENT: homicidal ideation, suicidal ideation Skin exam: PRESENT: dry, intact, warm. ABSENT: cyanosis, rash Results Laboratory Results: 04/11/18 05:12 04/11/18 05:12 04/11/18 04/11/18 05:12 05:12 WBC 9.2 RBC 2.88 L Hgb 8.7 L Hct 26.4 L MCV 92 MCH 30.4 MCHC 33.1 RDW 15.2 H Plt Count 176 Sodium 137.3 Potassium 4.9 Chloride 103 Carbon Dioxide 28 Anion Gap 6 BUN 36 H Creatinine 1.21 Est GFR ( Amer) 53 L Est GFR (Non-Af Amer) 43 L Glucose 223 H Calcium 9.0 04/09/18 05:42 Troponin I 0.014 Impressions: Chest X-Ray 04/09/18 07:00 IMPRESSION: Stable moderate cardiomegaly Assessment & Plan - Diagnosis (1) Acute and chronic respiratory failure with hypoxia Is this a current diagnosis for this admission?: Yes Plan: Improved; acute on chronic respiratory failure in the setting of COPD, CHF, morbid obesity, ROSETTA and patient who is chronically O2 dependent at Secondary to COPD exacerbation following treatment for healthcare associated pneumonia (patient is a resident of [facility]) with oral antibiotics. Chest x-ray is unremarkable. Repeat CXR yesterday was unchanged. No longer believe patient has a current pneumonia. Blood cultures have no growth at 72 hours. Sputum cultures grew ESBL E. coli; likely contaminant near his previous culture results. Flu screening has not yet been obtained. The patient is admitted to the telemetry floor. She is placed on supplemental oxygen and BiPAP as needed to maintain oxygen saturations greater than 89%. Continue as needed nebulizer treatments. Have resumed her home dose Advair and Spiriva. Continue her home dose Daliresp. Have begun weaning Solu-Medrol. Mucinex twice daily. Flutter valve and incentive spirometry at bedside. (2) COPD exacerbation Is this a current diagnosis for this admission?: Yes Plan: Plan as above. Supplemental oxygen, BiPAP, nebulizer treatments, IV Solu-Medrol, Advair, Spiriva, Daliresp, Mucinex. (3) ARF (acute renal failure) Qualifiers: Acute renal failure type: unspecified Qualified Code(s): N17.9 - Acute kidney failure, unspecified Is this a current diagnosis for this admission?: Yes Plan: Improved; creatinine and BUN slightly increased today after resuming low-dose furosemide. Encourage p.o. fluids. Avoid nephrotoxic medications as able. Vancomycin is discontinued. Furosemide is decreased by half. Daily chemistries. (4) Anemia Qualifiers: Anemia type: iron deficiency Iron deficiency anemia type: unspecified iron deficiency Qualified Code(s): D50.9 - Iron deficiency anemia, unspecified Is this a current diagnosis for this admission?: Yes Plan: Patient is noted to be at her baseline; hemoglobin 10.8 on admission. Decreased to 8.7 following IVF. Occult stool is negative. No signs of acute bleeding. Continue home dose ferrous sulfate supplementation. (5) Constipation Qualifiers: Constipation type: unspecified constipation type Qualified Code(s): K59.00 - Constipation, unspecified Is this a current diagnosis for this admission?: Yes Plan: Stable. Likely secondary to chronic opiate use and immobility. She is placed on daily Colace, milk of magnesia as needed, Linzess (if available ; this is a home medication). Start daily Miralax. Consider Lactulose. 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 Humalog for sliding scale coverage. Levemir increased to 32 units. Registered dietitian is consulted; appreciate dietary recommendations. (7) Gastroesophageal reflux disease Qualifiers: Esophagitis presence: without esophagitis Qualified Code(s): K21.9 - Gastro -esophageal reflux disease without esophagitis Is this a current diagnosis for this admission?: Yes Plan: PPI. (8) HTN (hypertension) Qualifiers: Hypertension type: essential hypertension Qualified Code(s): I10 - Essential (primary) hypertension Is this a current diagnosis for this admission?: Yes Plan: The patient's home medications are continued: Diltiazem, hydralazine, metoprolol , Ranexa (9) Morbid obesity Is this a current diagnosis for this admission?: Yes Plan: Dietary discretion is advised. Registered dietitian is consulted. (10) Obstructive sleep apnea Is this a current diagnosis for this admission?: Yes Plan: BiPAP nightly and as needed. (11) UTI (urinary tract infection) Qualifiers: Urinary tract infection type: site unspecified Hematuria presence: without hematuria Qualified Code(s): N39.0 - Urinary tract infection, site not specified Is this a current diagnosis for this admission?: Yes Plan: Catheter associated UTI; urinalysis is grossly positive for urinary tract infection with nitrites, leuk esterase, WBCs, and bacteria. Urine culture positive for ESBL E. coli; sensitive to Zosyn. Blood cultures are negative at 72 hours. Chronic Barton catheter is exchanged. The patient was empirically placed on IV vancomycin and Zosyn at time of admission; has received [address] Orozco was consulted; appreciate her evaluation and recommendations to discontinue abx due to high probability of colonization and urinalysis not reflecting active infection in the absence of symptoms. Antibiotics are discontinued today; will monitor overnight, if patient remains afebrile and asymptomatic we will consider discharge to [place]. (12) Chronic diastolic CHF (congestive heart failure) Is this a current diagnosis for this admission?: Yes Plan: The patient's lung sounds are clear, no peripheral edema; no acute exacerbation at this time. Lasix was briefly held secondary to dehydration. Have resumed at lower dose. Will monitor closely for additional titration needs. The patient's home medications are continued: Diltiazem, hydralazine, metoprolol , Ranexa. (13) Chronic pain Qualifiers: Chronic pain type: chronic pain syndrome Qualified Code(s): G89.4 - Chronic pain syndrome Is this a current diagnosis for this admission?: Yes Plan: The patient reports chronic orthopedic pain related to arthritis and multiple hip revisions. Dr. Hale with [facility] did evaluate the patient; she is very grateful for his evaluation recommendations. Dr. Hale has recommended fentanyl 25 mcg Duragesic patch with decreased oxycodone dosing. She continues on her Cymbalta and Lyrica. The patient is very optimistic that his offered to continue seeing her on an outpatient basis. (14) Opiate dependence, continuous Is this a current diagnosis for this admission?: Yes Plan: Plan as established by [facility]. - Time Time Spent with patient: 25-34 minutes Medications reviewed and adjusted accordingly: Yes Anticipated discharge: SNF - Established resident at [facility] Within: within 24 hours
[2018-04-11] MEDS: BENZONATATE 100 MG CAPSULE PO PRN ×2 (15:45→23:57)
[2018-04-11] MEDS: IPRATROPIUM/ALBUTEROL 0.5-2.5 MG/3 ML AMPUL NEB PRN (19:14)
[2018-04-11] MEDS: FLUTICASONE/SALMETEROL DISKUS 500-50 MCG/DOSE IH SCH (23:53)
[2018-04-11] MEDS: MELATONIN 5 MG TABLET PO SCH (23:56)
[2018-04-11] MEDS: SENNOSIDES/DOCUSATE 8.6-50 MG 1 EACH TABLET PO SCH (23:56)
[2018-04-12 05:23] LABS: HEMATOCRIT 27.4 % (36.0-47.0); HEMOGLOBIN 9.3 g/dL (12.0-15.5); MEAN CORPUSCULAR HEMOGLOBIN 30.6 pg (27.0-33.4); MEAN CORPUSCULAR HGB CONC 33.8 g/dL (32.0-36.0); MEAN CORPUSCULAR VOLUME 90 fl (80-97); PLATELET COUNT 210 10^3/uL (150-450); RED BLOOD COUNT 3.03 10^6/uL (3.72-5.28); RED CELL DISTRIBUTION WIDTH 14.9 % (11.5-14.0); WHITE BLOOD COUNT 8.9 10^3/uL (4.0-10.5)
[2018-04-12 05:41] LABS: ANION GAP 6 (5-19); BLOOD UREA NITROGEN 43 mg/dL (7-20); CALCIUM 9.3 mg/dL (8.4-10.2); CARBON DIOXIDE 28 mmol/L (22-30); CHLORIDE 104 mmol/L (98-107); GLUCOSE 194 mg/dL (75-110); SODIUM 137.5 mmol/L (137-145)
[2018-04-12] MEDS: METHYLPREDNISOLONE INJ 40 MG/1 ML SDV IV SCH ×2 (06:24→14:08)
[2018-04-12] MEDS: HYDRALAZINE HCL 25 MG TABLET PO SCH ×3 (06:24→21:44)
[2018-04-12] MEDS: LANSOPRAZOLE 15 MG TAB.RAP.DR PO SCH (06:24)
[2018-04-12] MEDS: HEPARIN SOD (PORCINE) 5,000 UNIT/ML 1 ML SYRINGE SUBCUT SCH ×3 (06:24→21:45)
[2018-04-12] MEDS: PREGABALIN 75 MG CAPSULE PO SCH ×3 (06:25→21:43)
[2018-04-12] MEDS: OXYCODONE HCL IR 5 MG TABLET PO PRN ×3 (06:25→21:43)
[2018-04-12] MEDS: DILTIAZEM HCL 60 MG TABLET PO SCH ×3 (06:25→21:42)
[2018-04-12] MEDS: INSULIN LISPRO 100 UNIT/ML 3 ML VIAL SUBCUT PRN ×4 (07:58→21:45)
[2018-04-12] MEDS: ASPIRIN 81 MG TABLET, CHEWABLE PO SCH (09:24)
[2018-04-12] MEDS: PHENAZOPYRIDINE HCL 200 MG TABLET PO SCH ×2 (09:24→14:07)
[2018-04-12] MEDS: BUSPIRONE HCL 10 MG TABLET PO SCH ×2 (09:24→21:40)
[2018-04-12] MEDS: DOCUSATE SODIUM 100 MG CAPSULE PO SCH ×2 (09:24→17:26)
[2018-04-12] MEDS: FLUTICASONE/SALMETEROL DISKUS 500-50 MCG/DOSE IH SCH ×2 (09:24→21:39)
[2018-04-12] MEDS: DULOXETINE HCL 30 MG CAPSULE.DR PO SCH (09:25)
[2018-04-12] MEDS: INSULIN DETEMIR 100 UNIT/ML 3 ML PEN SUBCUT SCH (09:25)
[2018-04-12] MEDS: FERROUS SULFATE 325 MG TABLET PO SCH ×2 (09:25→17:26)
[2018-04-12] MEDS: TAMSULOSIN HCL 0.4 MG CAP.SR.24H PO SCH (09:25)
[2018-04-12] MEDS: ROFLUMILAST 500 MCG TABLET PO SCH (09:25)
[2018-04-12] MEDS: POLYETHYLENE GLYCOL 3350 POWDER 17 GM/1 PACKET PO SCH (09:26)
[2018-04-12] MEDS: RANOLAZINE 500 MG TAB.SR.12H PO SCH ×2 (09:26→21:41)
[2018-04-12] MEDS: LIDOCAINE 5% (700 MG) TRANSDERMAL ADH..PATCH TP SCH (09:26)
[2018-04-12] MEDS: GUAIFENESIN 600 MG TABLET.SA PO SCH ×2 (09:26→21:41)
[2018-04-12] MEDS: TIOTROPIUM BROMIDE DPI 5 CAP/KIT (18 MCG/CAP) IH SCH (09:26)
[2018-04-12] MEDS: CARBOXYMETHYLCELLULOSE SOD 0.5% 0.4 ML DROPERETTE OU SCH ×4 (09:26→21:50)
[2018-04-12] MEDS: NORMAL SALINE 1000 ML 1,000 ML IV PRN ×2 (09:27→21:53)
[2018-04-12] MEDS: METOPROLOL SUCCINATE 50 MG TAB.SR.24H PO SCH (09:27)
[2018-04-12] MEDS: CETIRIZINE 10 MG TABLET PO SCH (09:27)
[2018-04-12] MEDS: IPRATROPIUM/ALBUTEROL 0.5-2.5 MG/3 ML AMPUL NEB PRN ×2 (13:09→23:45)
--- NOTE | 2018-04-12 15:36 | PDOC PROGRESS REPORT ---
Subjective Progress Note for:: 04/12/18 Subjective:: The patient is a 72 year old female with an extensive past medical history including chronic respiratory failure with hypoxia (baseline oxygen requirement of 2 L/min), COPD, ROSETTA (uses CPAP), CHF, hypertension, HLD, history [place], insulin- dependent diabetes mellitus, CAD, A. fib, anemia, CKD, GERD, chronic pain, depression with anxiety, and morbid obesity who was admitted 04/08/18 for acute on chronic respiratory failure with hypoxia secondary to COPD exacerbation. The patient is seen on morning rounds. She is found resting in bed comfortably on supplemental oxygen at 3 L/min (baseline is 2 lpm). She tells me she is feeling well today and has no current questions or concerns; hopeful to be discharged to home soon. She denies fever, chills, chest pain, palpitations, orthopnea, dyspnea, cough, abdominal pain, nausea vomiting and constipation. She has no other stated questions or concerns today. No concerns per nursing. Reason For Visit: ACUTE ON CHRONIC RESPIRATORY FAILURE,COPD Physical Exam Vital Signs: Temp Pulse Resp BP Pulse Ox 98.4 F 63 18 155/66 H 95 04/12/18 12:00 04/12/18 14:00 04/12/18 13:09 04/12/18 12:00 04/12/18 13:09 Intake & Output 04/11/18 04/12/18 04/13/18 06:59 06:59 06:59 Intake Total 2752 600 1437 Output Total 1850 4500 2150 Balance 902 -3900 -713 Weight 98.5 kg 95.8 kg Results Laboratory Results: 04/12/18 05:08 04/12/18 05:08 04/12/18 04/12/18 05:08 05:08 WBC 8.9 RBC 3.03 L Hgb 9.3 L Hct 27.4 L MCV 90 MCH 30.6 MCHC 33.8 RDW 14.9 H Plt Count 210 Sodium 137.5 Potassium 5.0 Chloride 104 Carbon Dioxide 28 Anion Gap 6 BUN 43 H Creatinine 1.35 H Est GFR ( Amer) 46 L Est GFR (Non-Af Amer) 38 L Glucose 194 H Calcium 9.3 04/09/18 05:42 Troponin I 0.014 Impressions: Chest X-Ray 10/10/18 07:00 IMPRESSION: Stable moderate cardiomegaly Assessment & Plan - Diagnosis (1) Acute and chronic respiratory failure with hypoxia Is this a current diagnosis for this admission?: Yes Plan: Improved; acute on chronic respiratory failure in the setting of COPD, CHF, morbid obesity, ROSETTA and patient who is chronically O2 dependent at Secondary to COPD exacerbation following treatment for healthcare associated pneumonia (patient is a resident of [facility]) with oral antibiotics. Chest x-ray is unremarkable. Repeat CXR following IV fluid rehydration was unchanged. No longer believe patient has a current pneumonia. Blood cultures have no growth at 4 days. Correction from previous note; sputum cultures are ordered but have not yet been obtained due to resolution of productive cough. Flu screening has not yet been obtained. The patient is admitted to the telemetry floor. She is placed on supplemental oxygen and BiPAP as needed to maintain oxygen saturations greater than 89%. Continue as needed nebulizer treatments. Have resumed her home dose Advair and Spiriva. Continue her home dose Daliresp. Transition to p.o. prednisone tomorrow. Mucinex twice daily. Flutter valve and incentive spirometry at bedside. (2) COPD exacerbation Is this a current diagnosis for this admission?: Yes Plan: Plan as above. Supplemental oxygen, BiPAP, nebulizer treatments, steroids, Advair, Spiriva, Daliresp, Mucinex. (3) ARF (acute renal failure) Qualifiers: Acute renal failure type: unspecified Qualified Code(s): N17.9 - Acute kidney failure, unspecified Is this a current diagnosis for this admission?: Yes Plan: Reoccurred; Cr 1.39--> 0.99--> 0.98--> 1.21--> 1.35 Encourage p.o. fluids. Avoid nephrotoxic medications as able. Vancomycin is discontinued. Medications reviewed and discontinued as able; Pyridium held.Furosemide held. IVF resumed. Daily chemistries. (4) Anemia Qualifiers: Anemia type: iron deficiency Iron deficiency anemia type: unspecified iron deficiency Qualified Code(s): D50.9 - Iron deficiency anemia, unspecified Is this a current diagnosis for this admission?: Yes Plan: Patient is noted to be at her baseline; hemoglobin 10.8 on admission. Decreased to 8.7 following IVF; now improved 9.3 Occult stool is negative. No signs of acute bleeding. Continue home dose ferrous sulfate supplementation. (5) Constipation Qualifiers: Constipation type: unspecified constipation type Qualified Code(s): K59.00 - Constipation, unspecified Is this a current diagnosis for this admission?: Yes Plan: Stable. Likely secondary to chronic opiate use and immobility. She is placed on daily Colace, milk of magnesia as needed, Linzess (if available ; this is a home medication). Continue daily Miralax. Consider Lactulose. 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 Humalog for sliding scale coverage. Levemir increased to 32 units. Registered dietitian is consulted; appreciate dietary recommendations. (7) Gastroesophageal reflux disease Qualifiers: Esophagitis presence: without esophagitis Qualified Code(s): K21.9 - Gastro -esophageal reflux disease without esophagitis Is this a current diagnosis for this admission?: Yes Plan: PPI. (8) HTN (hypertension) Qualifiers: Hypertension type: essential hypertension Qualified Code(s): I10 - Essential (primary) hypertension Is this a current diagnosis for this admission?: Yes Plan: The patient's home medications are continued: Diltiazem, hydralazine, metoprolol , Ranexa (9) Morbid obesity Is this a current diagnosis for this admission?: Yes Plan: Dietary discretion is advised. Registered dietitian is consulted. (10) Obstructive sleep apnea Is this a current diagnosis for this admission?: Yes Plan: BiPAP nightly and as needed. (11) UTI (urinary tract infection) Qualifiers: Urinary tract infection type: site unspecified Hematuria presence: without hematuria Qualified Code(s): N39.0 - Urinary tract infection, site not specified Is this a current diagnosis for this admission?: Yes Plan: Resolved. Catheter associated UTI; urinalysis is grossly positive for urinary tract infection with nitrites, leuk esterase, WBCs, and bacteria. Urine culture positive for ESBL E. coli; sensitive to Zosyn. Blood cultures are negative at 4 days Chronic Barton catheter is exchanged. The patient was empirically placed on IV vancomycin and Zosyn at time of admission; has received [address] Orozco was consulted; appreciate her evaluation and recommendations to discontinue abx due to high probability of colonization and urinalysis not reflecting active infection in the absence of symptoms. Antibiotics were discontinued yesterday; the patient remains afebrile, asymptomatic, with normal WBC. (12) Chronic diastolic CHF (congestive heart failure) Is this a current diagnosis for this admission?: Yes Plan: The patient's lung sounds are clear, no peripheral edema; no acute exacerbation at this time. Lasix was briefly held secondary to dehydration. Have resumed at lower dose. Will monitor closely for additional titration needs. The patient's home medications are continued: Diltiazem, hydralazine, metoprolol , Ranexa. (13) Chronic pain Qualifiers: Chronic pain type: chronic pain syndrome Qualified Code(s): G89.4 - Chronic pain syndrome Is this a current diagnosis for this admission?: Yes Plan: The patient reports chronic orthopedic pain related to arthritis and multiple hip revisions. Dr. Hale with [facility] did evaluate the patient; she is very grateful for his evaluation recommendations. Dr. Hale has recommended fentanyl 25 mcg Duragesic patch with decreased oxycodone dosing. She continues on her Cymbalta and Lyrica. The patient is very optimistic that his offered to continue seeing her on an outpatient basis. (14) Opiate dependence, continuous Is this a current diagnosis for this admission?: Yes Plan: Plan as established by [facility]. - Time Medications reviewed and adjusted accordingly: Yes Anticipated discharge: SNF - Established resident at [facility] Within: within 24 hours
[2018-04-12] MEDS: BACLOFEN 10 MG TABLET PO PRN (17:26)
[2018-04-12] MEDS: BENZONATATE 100 MG CAPSULE PO PRN (21:43)
[2018-04-12] MEDS: SENNOSIDES/DOCUSATE 8.6-50 MG 1 EACH TABLET PO SCH (21:43)
[2018-04-12] MEDS: MELATONIN 5 MG TABLET PO SCH (21:44)
[2018-04-13 06:07] LABS: ANION GAP 6 (5-19); BLOOD UREA NITROGEN 37 mg/dL (7-20); CALCIUM 8.9 mg/dL (8.4-10.2); CARBON DIOXIDE 27 mmol/L (22-30); CHLORIDE 106 mmol/L (98-107); GLUCOSE 163 mg/dL (75-110); POTASSIUM 4.7 mmol/L (3.6-5.0); SODIUM 139.1 mmol/L (137-145)
[2018-04-13] MEDS: PREGABALIN 75 MG CAPSULE PO SCH (06:28)
[2018-04-13] MEDS: HYDRALAZINE HCL 25 MG TABLET PO SCH (06:28)
[2018-04-13] MEDS: OXYCODONE HCL IR 5 MG TABLET PO PRN ×2 (06:28→12:10)
[2018-04-13] MEDS: DILTIAZEM HCL 60 MG TABLET PO SCH (06:29)
[2018-04-13] MEDS: LANSOPRAZOLE 15 MG TAB.RAP.DR PO SCH (06:29)
[2018-04-13] MEDS: HEPARIN SOD (PORCINE) 5,000 UNIT/ML 1 ML SYRINGE SUBCUT SCH (06:29)
[2018-04-13] MEDS: INSULIN LISPRO 100 UNIT/ML 3 ML VIAL SUBCUT PRN (07:42)
[2018-04-13] MEDS: IPRATROPIUM/ALBUTEROL 0.5-2.5 MG/3 ML AMPUL NEB PRN (08:34)
[2018-04-13 08:48] VITALS: BP 122/57
[2018-04-13] MEDS ORDERED: PREDNISONE 20 MG TABLET PO SCH (10:00)
[2018-04-13] MEDS: FLUTICASONE/SALMETEROL DISKUS 500-50 MCG/DOSE IH SCH (10:16)
[2018-04-13] MEDS: FENTANYL 25 MCG/HR PATCH.TD72 TD SCH (10:16)
[2018-04-13] MEDS: DULOXETINE HCL 30 MG CAPSULE.DR PO SCH (10:17)
[2018-04-13] MEDS: ASPIRIN 81 MG TABLET, CHEWABLE PO SCH (10:17)
[2018-04-13] MEDS: BUSPIRONE HCL 10 MG TABLET PO SCH (10:17)
[2018-04-13] MEDS: FERROUS SULFATE 325 MG TABLET PO SCH (10:17)
[2018-04-13] MEDS: ROFLUMILAST 500 MCG TABLET PO SCH (10:17)
[2018-04-13] MEDS: DOCUSATE SODIUM 100 MG CAPSULE PO SCH (10:17)
[2018-04-13] MEDS: RANOLAZINE 500 MG TAB.SR.12H PO SCH (10:18)
[2018-04-13] MEDS: GUAIFENESIN 600 MG TABLET.SA PO SCH (10:18)
[2018-04-13] MEDS: LIDOCAINE 5% (700 MG) TRANSDERMAL ADH..PATCH TP SCH (10:18)
[2018-04-13] MEDS: TAMSULOSIN HCL 0.4 MG CAP.SR.24H PO SCH (10:18)
[2018-04-13] MEDS: TIOTROPIUM BROMIDE DPI 5 CAP/KIT (18 MCG/CAP) IH SCH (10:18)
[2018-04-13] MEDS: INSULIN DETEMIR 100 UNIT/ML 3 ML PEN SUBCUT SCH (10:18)
[2018-04-13] MEDS: CARBOXYMETHYLCELLULOSE SOD 0.5% 0.4 ML DROPERETTE OU SCH (10:18)
[2018-04-13] MEDS: POLYETHYLENE GLYCOL 3350 POWDER 17 GM/1 PACKET PO SCH (10:18)
[2018-04-13] MEDS: CETIRIZINE 10 MG TABLET PO SCH (10:19)
[2018-04-13] MEDS: BACLOFEN 10 MG TABLET PO PRN (10:19)
[2018-04-13] MEDS: METOPROLOL SUCCINATE 50 MG TAB.SR.24H PO SCH (10:19)
[2018-04-13] MEDS: BENZONATATE 100 MG CAPSULE PO PRN (12:10)
--- NOTE | 2018-04-13 13:02 | PDOC TRANSFER SUMMARY ---
General - Admit/Disc Date/PCP Admission Date/Primary Care Provider: 04/08/18 14:35 GILBERT CASTANEDA, Discharge Date: 04/13/18 - Discharge Diagnosis (1) Acute and chronic respiratory failure with hypoxia Is this a current diagnosis for this admission?: Yes Summary: Acute phase is resolved. Acute on chronic respiratory failure in the setting of COPD, CHF, morbid obesity , ROSETTA and patient who is chronically O2 dependent at Secondary to COPD exacerbation following treatment for healthcare associated pneumonia (patient is a resident of [facility]) with oral antibiotics. Chest x-ray is unremarkable. Repeat CXR following IV fluid rehydration was unchanged. Healthcare associated pneumonia is ruled out. Blood cultures have no growth at 5 days. The patient was admitted to the telemetry floor and provided supplemental oxygen and BiPAP as needed to maintain oxygen saturations. She was placed on scheduled and as needed nebulizer treatments. She received IV Solu-Medrol which has been weaned to p.o. prednisone which she will continue to taper to her chronic prednisone dose. Her home maintenance medications Advair, Spiriva, Daliresp, and Pulmicort are resumed. At time of discharge, the patient continues to have slight rhonchi and occasional wheezing between nebulizer treatments, but is no longer tachycardic, tachypneic, or experiencing shortness of breath. She has been weaned to her baseline supplemental oxygen requirement of 2 L/min during the day and CPAP overnight. She is discharged to [facility] where she is an established resident. (2) COPD exacerbation Is this a current diagnosis for this admission?: Yes Summary: Resolved. (3) ARF (acute renal failure) Is this a current diagnosis for this admission?: Yes Summary: Resolved; patient likely has a component of chronic kidney disease. On the discharge her creatinine is 1.25 with a BUN of 37, estimated GFR 42. Her medications were reviewed and discontinued or renally dosed as able. (4) Anemia Is this a current diagnosis for this admission?: Yes Summary: Chronic; likely due to chronic disease (DM, CKD) and poor nutrition. Occult stool is negative. (5) Constipation Is this a current diagnosis for this admission?: Yes Summary: Stable; secondary to chronic opiate use and immobility. Encourage mobility, continue bowel protocol. (6) Diabetes mellitus Is this a current diagnosis for this admission?: Yes (7) Gastroesophageal reflux disease Is this a current diagnosis for this admission?: Yes Summary: Controlled on omeprazole. (8) HTN (hypertension) Is this a current diagnosis for this admission?: Yes Summary: Adequate blood pressure control on home medication regiment. Of note, the patient's furosemide has been decreased secondary to JASPREET. Recommend low-sodium diet and daily weights. (9) Morbid obesity Is this a current diagnosis for this admission?: Yes (10) Obstructive sleep apnea Is this a current diagnosis for this admission?: Yes Summary: CPAP nightly. (11) UTI (urinary tract infection) Is this a current diagnosis for this admission?: Yes Summary: Ruled out. Urinalysis is grossly positive for urinary tract infection with nitrites, leuk esterase, WBCs, and bacteria. Urine culture positive for ESBL E. coli Blood cultures are negative at 5 days Chronic Barton catheter was exchanged. The patient was empirically placed on IV vancomycin and Zosyn at time of admission; received 4 days of therapy. Infectious Disease, Dr. Orozco was consulted. States the patient has a high probability of colonization and although urinalysis was grossly positive, does not reflect active infection in the absence of symptoms. Antibiotics were subsequently discontinued; the patient has remained afebrile, asymptomatic, and with normal WBC. (12) Chronic diastolic CHF (congestive heart failure) Is this a current diagnosis for this admission?: Yes Summary: Stable and without exacerbation. The patient's home medication regiment was continued unchanged with the exception of Lasix which has been decreased due to renal function. She remains euvolemic on reduced dose. (13) Chronic pain Is this a current diagnosis for this admission?: Yes Summary: The patient reports chronic orthopedic pain related to arthritis and multiple hip revisions. Dr. Hale with [facility] did evaluate the patient; she is very grateful for his evaluation recommendations. Dr. Hale has recommended fentanyl 25 mcg Duragesic patch with decreased oxycodone dosing. She continues on her Cymbalta and Lyrica. (14) Opiate dependence, continuous Is this a current diagnosis for this admission?: Yes Summary: To follow-up with [facility] within 1 month. - Additional Information Resuscitation Status: Do Not Resuscitate Discharge Diet: Cardiac, Diabetic Discharge Activity: Activity As Tolerated, Balance Activity w/Rest, Slowly Increase Activity, Weigh Daily Prescriptions: Baclofen 5 mg PO Q8H #90 tablet Fentanyl [Duragesic 25 mcg/hr Transdermal Patch] 1 each TD Q3D #3 patch.td72 Insulin Detemir [Levemir Flextouch] 32 units SQ DAILY #1 insuln.pen Oxycodone HCl [Oxy-Ir 5 mg Tablet] 5 mg PO Q6HP PRN #10 tablet PRN Reason: Prednisone [Deltasone 20 mg Tablet] 20 mg PO ASDIR PRN #12 tablet PRN Reason: Torsemide 20 mg PO ASDIR PRN #75 tablet PRN Reason: Home Medications: Acetaminophen [Tylenol 325 mg Tablet] 650 mg PO Q4HP PRN 09/09/17 Acetylcysteine [Mucomist 10% Neb 400 mg/4 mL Vial] 400 mg NEB RTQ6 09/09/17 Ascorbic Acid [Vitamin C 500 mg Tablet] 500 mg PO BID 09/09/17 Aspirin [Aspirin 81 mg Chewable Tablet] 81 mg PO DAILY 09/09/17 Benzocaine/Menthol [Chloraseptic Sore Throat Lozenge] 1 ru PO Q1HP PRN Benzonatate [Tessalon Perles 100 mg Capsule] 200 mg PO Q8HP PRN 09/09/17 Budesonide [Pulmicort 180 mcg Flexhaler] 2 puff IH Q12 09/09/17 Buspirone HCl [Buspar 5 mg Tablet] 5 mg PO Q12 09/09/17 Carboxymethylcellulose Sodium [Refresh Plus 0.5% Oph Soln 0.4 ml Droperette] 1 drop OU QID 09/09/17 Duloxetine HCl [Cymbalta] 90 mg PO DAILY 09/09/17 Ergocalciferol (Vitamin D2) [Drisdol 50,000 unit (1.25MG) Capsule] 50,000 unit PO .09/09/17 Ferrous Sulfate [Feosol 325 mg Tablet] 325 mg PO BID 09/09/17 Fluticasone/Salmeterol [Advair 500-50 Diskus 14 Dose/Diskus] 1 puff IH Q12 09/09 Hydralazine HCl [Apresoline 25 mg Tablet] 25 mg PO Q8 09/09/17 Insulin Lispro [Humalog Insulin (Lispro) 100 unit/mL] 0 units SQ .SLIDING SCALE 09/09/17 Ipratropium/Albuterol Sulfate [Iprat-Albut 0.5-3(2.5) mg/3 ml] 3 ml NEB [id number] 09/09/17 Lactulose [Enulose 10 gm/15 mL Oral Solution] 15 ml PO BIDP PRN 09/09/17 Levalbuterol HCl [Xopenex Neb 0.63 mg/3 ml Ampul] 0.63 mg NEB RTQ8 09/09/17 Lidocaine [Lidoderm 5% (700 mg) Transdermal Patch] 1 patch TOP DAILY 09/09/17 Linaclotide [Linzess 145 Mcg Capsule] 145 mcg PO DAILY 09/09/17 Magnesium Hydroxide [Milk of Magnesia 30 ml Udcup] 30 ml PO DAILYP PRN 09/09/17 Melatonin 10 mg PO QHS 09/09/17 Metoprolol Succinate [Toprol Xl 50 mg Tab.sr] 50 mg PO DAILY 09/09/17 Nitroglycerin [Nitrostat] 0.4 mg SL Q5MP PRN 09/09/17 Omeprazole 20 mg PO Q6AM 09/09/17 Polyethylene Glycol 3350 [Miralax Powder 17 gm/Packet] 17 gm PO DAILY 09/09/17 Pregabalin [Lyrica 75 mg Capsule] 75 mg PO Q8 09/09/17 Ranitidine HCl [Zantac 150 mg Tablet] 150 mg PO BID 09/09/17 Ranolazine [Ranexa 500 mg Tab.sr] 500 mg PO Q12 09/09/17 Roflumilast [Daliresp 500 mcg Tablet] 500 mcg PO DAILY 09/09/17 Sennosides/Docusate 8.6-50 mg [Senna Plus Tablet] 1 tab PO QHS 09/09/17 Tamsulosin HCl [Flomax 0.4 mg Cap.sr] 0.4 mg PO DAILY 09/09/17 Tiotropium [place] [Spiriva Handihaler 5 Cap/Kit (18 Mcg/Cap)] 1 cap IH DAILY Diltiazem HCl [Cardizem 60 mg Tablet] 60 mg PO Q8 tablet 09/16/17 Docusate Sodium [Colace 100 mg Capsule] 100 mg PO BID capsule 09/16/17 Cetirizine HCl [Zyrtec 10 mg Tablet] 10 mg PO DAILY 04/08/18 Guaifenesin [Mucinex] 600 mg PO Q12 04/08/18 Prednisone [Deltasone 20 mg Tablet] 20 mg PO DAILY 04/08/18 Baclofen 5 mg PO Q8H #90 tablet 04/13/18 Fentanyl [Duragesic 25 mcg/hr Transdermal Patch] 1 each TD Q3D #3 patch.td72 Insulin Detemir [Levemir Flextouch] 32 units SQ DAILY #1 insuln.pen 04/13/18 Mag Hydrox/Al Hydrox/Simeth [Maalox Plus Susp 30 Udcup] 30 ml PO Q6HP PRN udc 04/13/18 Oxycodone HCl [Oxy-Ir 5 mg Tablet] 5 mg PO Q6HP PRN #10 tablet 04/13/18 Prednisone [Deltasone 20 mg Tablet] 20 mg PO ASDIR PRN #12 tablet 04/13/18 Torsemide 20 mg PO ASDIR PRN #75 tablet 04/13/18 History of Present Illness Admission Date/PCP: 04/08/18 14:35 GILBERT CASTANEDA DO Hospital Course Hospital Course: Per H&P: PORSHA WALDRON is a 72 year old female with an extensive past medical history including chronic respiratory failure with hypoxia (baseline oxygen requirement of 2 L/min), COPD, ROSETTA (uses CPAP), CHF, hypertension, HLD, history NC, insulin-dependent diabetes mellitus, CAD, A. fib, anemia, CKD, GERD, chronic pain, depression with anxiety, and morbid obesity who presented to the emergency department today via EMS with complaint of generalized body aches, fever (102.8 per EMS), dyspnea, and increased oxygen requirement. The patient reports that she was on an unknown antibiotic (completed a 10-day course over the weekend) for pneumonia and was beginning to feel better but suddenly worsened Saturday. She states that at that time she had some angina that resolved with sublingual nitroglycerin; she has been chest pain-free since that time. However, she has continued to have fever, chills, fatigue, malaise, dyspnea and a productive cough. Evaluation in the emergency department revealed hypoxia (currently requiring 6 L /min to maintain oxygen saturations greater than 89%), tachypnea (RR 26), and tachycardia (HR 120). Laboratory evaluation demonstrates her baseline anemia ( hemoglobin 10.8), acute on chronic kidney insufficiency (NM 1.39), and a benign chest x-ray. She is provided nebulizer treatments and IV Solu-Medrol; placed on BiPAP, and referred to the hospitalist service for admission and management of a/c respiratory failure with hypoxia secondary to COPD exacerbation. Physical Exam Vital Signs: Temp Pulse Resp BP Pulse Ox 98.5 F 63 17 122/57 L 94 04/13/18 08:00 04/13/18 08:34 04/13/18 08:34 04/13/18 08:00 04/13/18 08:34 Intake & Output 04/12/18 04/13/18 04/14/18 06:59 06:59 06:59 Intake Total 600 3773 Output Total 4500 5225 Balance -3900 -1452 Weight 95.8 kg 96 kg General appearance: PRESENT: no acute distress, morbidly obese, well-developed, well-nourished Head exam: PRESENT: atraumatic, normocephalic Eye exam: PRESENT: conjunctiva pink, EOMI, PERRLA. ABSENT: scleral icterus Ear exam: PRESENT: normal external ear exam Mouth exam: PRESENT: moist, tongue midline Teeth exam: PRESENT: poor dentation Neck exam: ABSENT: carotid bruit, JVD, lymphadenopathy, thyromegaly Respiratory exam: PRESENT: decreased breath sounds - Bibasilar; secondary to poor inspiratory effort, body habitus, prolonged expiratory phas, rhonchi, symmetrical, unlabored, other - Supplemental oxygen via nasal cannula. ABSENT: rales, wheezes Cardiovascular exam: PRESENT: RRR, +S1, +S2, systolic murmur. ABSENT: diastolic murmur, rubs Pulses: PRESENT: normal dorsalis pedis pul Vascular exam: PRESENT: normal capillary refill GI/Abdominal exam: PRESENT: normal bowel sounds, soft. ABSENT: distended, guarding, mass, organolmegaly, rebound, tenderness Rectal exam: PRESENT: deferred Extremities exam: PRESENT: full ROM. ABSENT: calf tenderness, clubbing, pedal edema Neurological exam: PRESENT: alert, awake, oriented to person, oriented to place , oriented to time, oriented to situation, CN II-XII grossly intact. ABSENT: motor sensory deficit Psychiatric exam: PRESENT: appropriate affect, normal mood. ABSENT: homicidal ideation, suicidal ideation Skin exam: PRESENT: dry, intact, warm. ABSENT: cyanosis, rash Results Laboratory Results: 04/12/18 05:08 04/13/18 04:07 04/13/18 04:07 Sodium 139.1 Potassium 4.7 Chloride 106 Carbon Dioxide 27 Anion Gap 6 BUN 37 H Creatinine 1.25 Est GFR ( Amer) 51 L Est GFR (Non-Af Amer) 42 L Glucose 163 H Calcium 8.9 04/09/18 05:42 Troponin I 0.014 Impressions: Chest X-Ray 04/09/18 07:00 IMPRESSION: Stable moderate cardiomegaly Transfer Plan - Time Spent with Patient Time spent with patient: Less than 30 Minutes Qualifiers - * PATIENT BEING DISCHARGED WITH ANY OF THE FOLLOWING DIAGNOSIS: Heart Failure HF Pt being discharged on ACEI for LVEF less than 40%?: No Reason(s) for not prescribing ACEI:: Not indicated HF Pt being discharged on ARBS for LVEF less than 40%?: No Reason(s) for not prescribing ARBS:: Not indicated HF Pt with Afib discharged with Warfarin?: No Reason(s) for not prescribing Warfarin:: Not indicated HF Pt discharged on evidence-based Beta Jeremy:: Yes Plan Discharge Plan: Discharge to [facility] for the patient is an established resident. Time Spent: Less than 30 Minutes
== END 2018-04-13 12:55 | DRG 189 ==
LOC: ER 09:49 → EH 14:35 → 4N 17:00
PROVIDERS: ADMIT Internal Medicine; ATTEND Internal Medicine
PROC: 3E0234Z Introduction of Serum, Toxoid and Vaccine into Muscle, Percutaneous Approach (ICD-10-PCS; principal; 2018-04-13)
DX: J96.21 Acute and chronic respiratory failure with hypoxia (principal); J18.9 Pneumonia, unspecified organism; Z66 Do not resuscitate; N17.9 Acute kidney failure, unspecified; I13.0 Hypertensive heart and chronic kidney disease with heart failure and stage 1 through stage 4 chronic kidney disease, or unspecified chronic kidney disease; I50.32 Chronic diastolic (congestive) heart failure; J44.1 Chronic obstructive pulmonary disease with (acute) exacerbation; N39.0 Urinary tract infection, site not specified; F11.20 Opioid dependence, uncomplicated; I48.91 Unspecified atrial fibrillation; K21.9 Gastro-esophageal reflux disease without esophagitis; N18.3 Chronic kidney disease, stage 3 (moderate); E11.22 Type 2 diabetes mellitus with diabetic chronic kidney disease; D50.9 Iron deficiency anemia, unspecified; K59.00 Constipation, unspecified; G47.33 Obstructive sleep apnea (adult) (pediatric); M79.7 Fibromyalgia; F41.8 Other specified anxiety disorders; G89.4 Chronic pain syndrome; E66.01 Morbid (severe) obesity due to excess calories; B96.20 Unspecified Escherichia coli [E. coli] as the cause of diseases classified elsewhere; B96.1 Klebsiella pneumoniae [K. pneumoniae] as the cause of diseases classified elsewhere; I25.2 Old myocardial infarction; Z99.81 Dependence on supplemental oxygen; Z87.891 Personal history of nicotine dependence; Z79.82 Long term (current) use of aspirin; Z79.4 Long term (current) use of insulin; Z79.51 Long term (current) use of inhaled steroids; Z79.52 Long term (current) use of systemic steroids; Z79.899 Other long term (current) drug therapy; Z23 Encounter for immunization; Z68.37 Body mass index [BMI] 37.0-37.9, adult
CPT/HCPCS: 36415; 71045; 80048; 80053; 81001; 82272; 82550; 82553; 82803; 82962; 83605; 83880; 84484; 85025; 85027; 85610; 87040; 87086; 87088; 87186; 90471; 90686; 93005; 93010; 94640; 94660; 94667; 94799; 96360; 96361; 99291; G0008; G8978-GP; G8979-GP; J1644; J1815; J2543; J2920; J3370; J3490; J7030; J7060; J7512; J7620

== ENCOUNTER 2018-06-03 05:30 | Inpatient (IN) | payer MEDICARE, MEDICAID ==
[2018-06-03] MEDS ORDERED: ASPIRIN 81 MG TABLET, CHEWABLE PO ONE (05:54)
--- NOTE | 2018-06-03 05:58 | ER Document Report ---
ED Medical Screen (RME) - General Chief Complaint: Shortness Of Breath Stated Complaint: URINARY PROBLEM Time Seen by Provider: 06/03/18 05:49 Notes: Patient is a 72-year-old female presenting to the emergency department from [facility] for increased shortness of breath. Patient states she has had increased short of breath for the last 24 hours with intermittent chest tightness. Patient also admits to a cough. Patient says she was treated for pneumonia last month. States she thinks she was having a "problem with my catheter." She states that she has not been urinating as much as normal. Physical exam: Inspiratory lung mead clear in all, expiratory lung mead reveal rales in all mead. I have greeted and performed a rapid initial assessment of this patient. A comprehensive ED assessment and evaluation of the patient, analysis of test results and completion of the medical decision making process will be conducted by additional ED providers. TRAVEL OUTSIDE OF THE [place] IN LAST 30 DAYS: No - Related Data Allergies/Adverse Reactions: Sulfa (Sulfonamide Antibiotics) Allergy (Intermediate, Verified 02/03/18 09:37) adhesive tape Allergy (Verified 02/03/18 09:37) atorvastatin calcium [From Lipitor] Allergy (Verified 02/03/18 09:37) celecoxib [From Celebrex] Allergy (Verified 02/03/18 09:37) Past Medical History - Past Medical History Cardiac Medical History: Reports: Hx Atrial Fibrillation, Hx Congestive Heart Failure - Diastolic dysfunction, Hx Coronary Artery Disease, Hx DVT, Hx Heart Attack, Hx Hypercholesterolemia, Hx Hypertension - essential, Hx Pulmonary Embolism, Hx Heart Murmur Denies: Hx Peripheral Vascular Disease Pulmonary Medical History: Reports: Hx Asthma, Hx Bronchitis, Hx COPD, Hx Pneumonia - Recurrent MRSA pneumonia., Hx Respiratory Failure - Chronic, Hx Sleep Apnea - Uses C Pap Denies: Hx Tuberculosis Neurological Medical History: Denies: Hx Seizures Endocrine Medical History: Reports: Hx Diabetes Mellitus Type 2. Denies: Hx Diabetes Mellitus Type 1, Hx Hyperthyroidism, Hx Hypothyroidism Renal/ Medical History: Reports: Hx Renal Insufficiency. Denies: Hx Peritoneal Dialysis GI Medical History: Reports: Hx Gastroesophageal Reflux Disease, Hx Hiatal Hernia. Denies: Hx Cirrhosis, Hx Hepatitis Musculoskeltal Medical History: Reports Hx Arthritis, Reports Hx Fibromyalgia, Reports Hx Gout, Reports Hx Muscle Weakness Skin Medical History: Denies Hx Eczema, Denies Hx Psoriasis Psychiatric Medical History: Reports: Hx Anxiety, Hx Depression Infectious Medical History: Reports: Hx C-Diff, Hx MRSA. Denies: Hx Hepatitis Past Surgical History: Reports: Hx Appendectomy, Hx Cholecystectomy, Hx Hysterectomy, Hx Orthopedic Surgery - Multiple left hip procedures, 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 - Immunizations Hx Diphtheria, Pertussis, Tetanus Vaccination: Yes History of Influenza Vaccine for 03/2017 - 08/2017 Season: Yes Influenza Administration Date for 03/2017 - 08/2017 Season: 03/31/17 Doctor's Discharge - Discharge Referrals: GILBERT CASTANEDA DO [Primary Care Provider] - Follow up as needed
[2018-06-03 06:17] LABS: INTERNATIONAL RATION (INR) 0.97; PROTHROMBIN TIME 13.3 SEC (11.4-15.4)
[2018-06-03 06:18] LABS: HEMATOCRIT 28.7 % (36.0-47.0); HEMOGLOBIN 9.5 g/dL (12.0-15.5); MEAN CORPUSCULAR HEMOGLOBIN 29.9 pg (27.0-33.4); MEAN CORPUSCULAR HGB CONC 33.1 g/dL (32.0-36.0); MEAN CORPUSCULAR VOLUME 90 fl (80-97); PLATELET COUNT 236 10^3/uL (150-450); RED BLOOD COUNT 3.18 10^6/uL (3.72-5.28); RED CELL DISTRIBUTION WIDTH 15.2 % (11.5-14.0); WHITE BLOOD COUNT 17.1 10^3/uL (4.0-10.5)
--- NOTE | 2018-06-03 06:21 | RADIOLOGY REPORT (SQ) ---
CLINICAL HISTORY: SOB COMPARISON: None. TECHNIQUE: XR CHEST 1 VIEW 06/03/2018 5:54 AM OFFC SPEC FINDINGS: Cardiac silhouette is enlarged. Lungs are clear without consolidation, atelectasis, mass or edema. There is no pleural effusion. There is no pneumothorax. There are no acute osseous findings. IMPRESSION: Cardiomegaly without definite pneumonia.
[2018-06-03 06:25] LABS: ALANINE AMINOTRANSFERASE 14 U/L (9-52); ALBUMIN 3.3 g/dL (3.5-5.0); ALKALINE PHOSPHATASE 105 U/L (38-126); ANION GAP 13 (5-19); ASPARTATE AMINO TRANSFERASE 13 U/L (14-36); BILIRUBIN,TOTAL 0.7 mg/dL (0.2-1.3); BLOOD UREA NITROGEN 28 mg/dL (7-20); CALCIUM 9.4 mg/dL (8.4-10.2); CARBON DIOXIDE 30 mmol/L (22-30); CHLORIDE 100 mmol/L (98-107); GLUCOSE 121 mg/dL (75-110); POTASSIUM 3.1 mmol/L (3.6-5.0); SODIUM 142.7 mmol/L (137-145); TOTAL PROTEIN 6.1 g/dL (6.3-8.2)
[2018-06-03 06:26] LABS: CREATINE KINASE < 20 U/L (30-135)
[2018-06-03 06:32] LABS: APPEARANCE,URINE TURBID; BILIRUBIN,URINE NEGATIVE (NEGATIVE); COLOR,URINE RED; GLUCOSE, URINE NEGATIVE (NEGATIVE); KETONES,URINE NEGATIVE (NEGATIVE); LEUKOCYTE ESTERASE,URINE SMALL (NEGATIVE); NITRITE,URINE POSITIVE (NEGATIVE); PROTEIN,URINE 100 mg/dL (NEGATIVE); URINE SPECIFIC GRAVITY 1.015
[2018-06-03 06:38] LABS: CREATINE KINASE MB 0.59 ng/mL (<4.55); TROPONIN I 0.031 ng/mL
[2018-06-03 06:45] LABS: ABSOLUTE LYMPHOCYTES# (MANUAL) 0.3 10^3/uL (0.5-4.7); ABSOLUTE MONOCYTES # (MANUAL) 1.9 10^3/uL (0.1-1.4); ABSOLUTE NEUTROPHILS# (MANUAL) 14.9 10^3/uL (1.7-8.2); BASOPHILS % (MANUAL) 0 % (0-2); EOSINOPHILS % (MANUAL) 0 % (0-6); LYMPHOCYTES % (MANUAL) 2 % (13-45); MONOCYTES % (MANUAL) 11 % (3-13); SEGMENTED NEUTROPHILS % (MAN) 87 % (42-78); TOTAL CELLS COUNTED 100
[2018-06-03 06:46] LABS: ANISOCYTOSIS SLIGHT; HELMET CELLS SLIGHT; PLATELET CLUMPS PRESENT; PLATELET COMMENT ADEQUATE; PLATELET LARGE PRESENT; SCHISTOCYTES SLIGHT; TOXIC GRANULATION 1+
[2018-06-03] MEDS ORDERED: PIPERACILLIN/TAZOBACTAM 3.375 GM VIAL IV ONE (07:13)
[2018-06-03] MEDS ORDERED: NORMAL SALINE 500 ML IV ONE (07:13)
--- NOTE | 2018-06-03 07:21 | ER Document Report ---
ED General - General Chief Complaint: Shortness Of Breath Stated Complaint: URINARY PROBLEM Time Seen by Provider: 06/03/18 05:49 Mode of Arrival: Medic Information source: Patient TRAVEL OUTSIDE OF THE [place] IN LAST 30 DAYS: No - HPI Patient complains to provider of: Fatigue fever short of breath Onset: Other - 72-year-old female with a myriad of medical problems including but not limited to heart failure, COPD requiring persistent oxygen as well as an indwelling Barton catheter and urinary retention that presents for evaluation of generalized malaise as well as fevers and shortness of breath which she says she has been evaluated for over the last month twice being treated in the outpatient setting for pneumonia without any resolution of her symptoms. She states in the past she has had issues with infections because of her catheter and that this feels similar. Primarily she is concerned as there is sediment in her catheter had stopped draining a few days ago. She does take a medicine to help with bladder spasms which turns it orange. - Related Data Allergies/Adverse Reactions: Sulfa (Sulfonamide Antibiotics) Allergy (Intermediate, Verified 02/03/18 09:37) adhesive tape Allergy (Verified 02/03/18 09:37) atorvastatin calcium [From Lipitor] Allergy (Verified 02/03/18 09:37) celecoxib [From Celebrex] Allergy (Verified 02/03/18 09:37) Past Medical History - General Information source: Patient, Emergency Med Personnel, [facility] Records - Social History Smoking Status: Former Smoker Frequency of alcohol use: None Family History: Reviewed & Not Pertinent, Arthritis, CAD, CVA, DM, Hyperlipidemia, Hypertension Patient has suicidal ideation: No Patient has homicidal ideation: No - Past Medical History Cardiac Medical History: Reports: Hx Atrial Fibrillation, Hx Congestive Heart Failure - Diastolic dysfunction, Hx Coronary Artery Disease, Hx DVT, Hx Heart Attack, Hx Hypercholesterolemia, Hx Hypertension - essential, Hx Pulmonary Embolism, Hx Heart Murmur Denies: Hx Peripheral Vascular Disease Pulmonary Medical History: Reports: Hx Asthma, Hx Bronchitis, Hx COPD, Hx Pneumonia - Recurrent MRSA pneumonia., Hx Respiratory Failure - Chronic, Hx Sleep Apnea - Uses C Pap Denies: Hx Tuberculosis Neurological Medical History: Denies: Hx Seizures Endocrine Medical History: Reports: Hx Diabetes Mellitus Type 2. Denies: Hx Diabetes Mellitus Type 1, Hx Hyperthyroidism, Hx Hypothyroidism Renal/ Medical History: Reports: Hx Renal Insufficiency. Denies: Hx Peritoneal Dialysis GI Medical History: Reports: Hx Gastroesophageal Reflux Disease, Hx Hiatal Hernia. Denies: Hx Cirrhosis, Hx Hepatitis Musculoskeletal Medical History: Reports Hx Arthritis, Reports Hx Fibromyalgia, Reports Hx Gout, Reports Hx Muscle Weakness Skin Medical History: Denies Hx Eczema, Denies Hx Psoriasis Psychiatric Medical History: Reports: Hx Anxiety, Hx Depression Infectious Medical History: Reports: Hx C-Diff, Hx MRSA. Denies: Hx Hepatitis Past Surgical History: Reports: Hx Appendectomy, Hx Cholecystectomy, Hx Hysterectomy, Hx Orthopedic Surgery - Multiple left hip procedures, 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 - Immunizations Hx Diphtheria, Pertussis, Tetanus Vaccination: Yes Hx Pneumococcal Vaccination: 05/20/13 Review of Systems - Review of Systems -: Yes All other systems reviewed and negative Physical Exam - Vital signs Vitals: Resp Pulse Ox 24 H 94 06/03/18 05:32 06/03/18 05:32 - General General appearance: Alert In distress: Mild - HEENT Head: Normocephalic Eyes: Normal Conjunctiva: Normal Cornea: Normal Extraocular movements intact: Yes Eyelashes: Normal Pupils: PERRL Sinus: Normal Nasal: Normal Mouth/Lips: Normal Mucous membranes: Dry - Respiratory Respiratory status: Tachypnea Chest status: Nontender Breath sounds: Rhonchi, Wheezing Chest palpation: Normal - Cardiovascular Rhythm: Tachycardia Heart sounds: Normal auscultation Murmur: No - Abdominal Inspection: Normal Distension: No distension Tenderness: Nontender - Back Back: Normal - Extremities General upper extremity: Normal inspection, Nontender, Normal strength, Normal temperature General lower extremity: Normal inspection, Nontender, Normal strength, Normal temperature - Neurological Neuro grossly intact: Yes Cognition: Normal Orientation: AAOx4 [place] Coma Scale Eye Opening: Spontaneous Duy Coma Scale Verbal: Oriented Duy Coma Scale Motor: Obeys Commands Duy Coma Scale Total: 15 Speech: Normal Cranial nerves: Normal Cerebellar coordination: Normal Motor strength normal: LUE, RUE, LLE, RLE - Psychological Associated symptoms: Normal affect Course - Re-evaluation Re-evalutation: 06/03/18 08:51 72-year-old female with a chronic indwelling Barton catheter presents for evaluation of urinary retention as well as fevers malaise some shortness of breath. On examination she is tachypneic, she is slight increase in her oxygen requirement from her baseline. She does have a fever does have obviously contaminated urine, represents a mixed picture however she has chronic lung disease and could represent some episode of pulmonary edema in addition to her urinary tract infection. Previously she had grown out an ESBL E. coli which was susceptible to Zosyn. Have obtain sets of labs for sepsis including a modestly elevated lactate. We will administer fluids will plan for continued monitoring emergency department after administration of Zosyn. Have contacted on-call hospitalist Dr. Avendano who agrees to evaluate the patient for admission, will continue to monitor and reassess while she is in the emergency department. - Vital Signs Vital signs: Temp Pulse Resp BP Pulse Ox 98.5 F 97 18 96/48 L 97 06/03/18 09:20 06/03/18 06:02 06/03/18 15:18 06/03/18 15:18 06/03/18 15:18 - Laboratory Result Diagrams: 06/03/18 05:50 06/03/18 05:50 Laboratory results interpreted by me: 06/03/18 06/03/18 06/03/18 05:50 05:50 05:50 WBC 17.1 H RBC 3.18 L Hgb 9.5 L Hct 28.7 L RDW 15.2 H Seg Neuts % (Manual) 87 H Lymphocytes % (Manual) 2 L Abs Neuts (Manual) 14.9 H Abs Lymphs (Manual) 0.3 L Abs Monocytes (Manual) 1.9 H Potassium 3.1 L BUN 28 H Creatinine 1.31 H Est GFR ( Amer) 48 L Est GFR (Non-Af Amer) 40 L Glucose 121 H Lactic Acid AST 13 L Creatine Kinase < 20 L Total Protein 6.1 L Albumin 3.3 L Urine Protein 100 H Urine Blood SMALL H Urine Nitrite POSITIVE H Urine Urobilinogen 4.0 H Ur Leukocyte Esterase SMALL H Urine Ascorbic Acid 40 H 06/03/18 05:50 WBC RBC Hgb Hct RDW Seg Neuts % (Manual) Lymphocytes % (Manual) Abs Neuts (Manual) Abs Lymphs (Manual) Abs Monocytes (Manual) Potassium BUN Creatinine Est GFR ( Amer) Est GFR (Non-Af Amer) Glucose Lactic Acid 2.3 H AST Creatine Kinase Total Protein Albumin Urine Protein Urine Blood Urine Nitrite Urine Urobilinogen Ur Leukocyte Esterase Urine Ascorbic Acid Discharge - Discharge Clinical Impression: UTI due to extended-spectrum beta lactamase (ESBL) producing Escherichia coli UTI (urinary tract infection) due to urinary indwelling Barton catheter Qualifiers: Indwelling urinary catheter type: indwelling urethral catheter Encounter type: initial encounter Qualified Code(s): T83.511A - Infection and inflammatory reaction due to indwelling urethral catheter, initial encounter Condition: Stable Disposition: ADMITTED INPATIENT Admitting Provider: Hospitalist Unit Admitted: Telemetry
[2018-06-03] MEDS ORDERED: ACETAMINOPHEN 325 MG TABLET PO ONE (08:22)
[2018-06-03] MEDS ORDERED: GLUCAGON,HUMAN RECOMB 1 MG INJ IM PRN (09:41)
[2018-06-03] MEDS ORDERED: DEXTROSE 40% GEL 15 GM TUBE PO PRN ×2 (09:41)
[2018-06-03] MEDS ORDERED: DEXTROSE 50%-WATER 25 GM/50 ML DISP.SYRIN IV PRN ×2 (09:41)
--- NOTE | 2018-06-03 11:22 | EKG REPORT ---
SEVERITY:- ABNORMAL ECG - SINUS RHYTHM LVH WITH IVCD, LAD AND SECONDARY REPOL ABNRM APCs : Confirmed by: Jung Olvera 03-Jun-2018 11:22:01
[2018-06-03] MEDS: HEPARIN SOD (PORCINE) 5,000 UNIT/ML 1 ML SYRINGE SUBCUT SCH ×2 (11:36→23:41)
[2018-06-03] MEDS: PIPERACILLIN SODIUM/TAZOBACTAM 3.375 GM in NORMAL SALINE 100 ML IV SCH ×3 (14:00→23:41)
--- NOTE | 2018-06-03 18:17 | PDOC H&P ---
History of Present Illness Admission Date/PCP: 06/03/18 09:28 GILBERT CASTANEDA DO Patient complains of: weakness History of Present Illness: PORSHA WALDRON is a 72 year old female with a past medical history of atrial fibrillation, chronic diastolic heart failure, insulin dependent diabetes mellitus, CAD, history of DVT and PE, hyperlipidemia, hypertension, asthma, COPD , on indwelling Barton catheter and history of recurrent UTIs with prior ESBL who was brought in because of increasing weakness and possible blocked Barton catheter. On encounter, patient reports that she has been has been a moderately productive cough and progressive shortness of breath in the past 3-4 days. She says is also been having increasing weakness. She says that they are having issues with [facility] and that it has not been draining well and she feels that her urinary bladder is getting distended. She says that there has been increasing sediments on the Barton cath. Past Medical History Cardiac Medical History: Reports: Atrial Fibrillation, Congestive Heart Failure - Diastolic dysfunction, Coronary Artery Disease, DVT, Myocardial Infarction, Hyperlipidema, Hypertension - essential, Pulmonary Embolism, Heart Murmur Denies: Peripheral Vascular Disease Pulmonary Medical History: Reports: Asthma, Bronchitis, Chronic Obstructive Pulmonary Disease (COPD), Pneumonia - Recurrent MRSA pneumonia., Respiratory Failure - Chronic, Sleep Apnea - Uses C Pap Denies: Tuberculosis Neurological Medical History: Denies: Seizures Endocrine Medical History: Reports: Diabetes Mellitus Type 2 Denies: Diabetes Mellitus Type 1, Hyperthyroidism, Hypothyroidism GI Medical History: Reports: Gastroesophageal Reflux Disease, Hiatal Hernia Denies: Cirrhosis, Hepatitis Musculoskeltal Medical History: Reports: Arthritis, Fibromyalgia, Gout Skin Medical History: Denies: Eczema, Psoriasis Psychiatric Medical History: Reports: Depression Hematology: Reports: Anemia Infectious Medical History: Reports: Clostridium Difficile, Methicillin- Resistant Staph Aureus Past Surgical History Past Surgical History: Reports: Appendectomy, Cholecystectomy, Hysterectomy, Orthopedic Surgery - Multiple left hip procedures, 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 Social History Smoking Status: Former Smoker Frequency of Alcohol Use: None Hx Recreational Drug Use: No Drugs: None Hx Prescription Drug Abuse: No - Advance Directive Resuscitation Status: Full Code Family History Family History: Reviewed & Not Pertinent, Arthritis, CAD, CVA, DM, Hyperlipidemia, Hypertension Parental Family History Reviewed: Yes - no premature CAD Children Family History Reviewed: No Sibling(s) Family History Reviewed.: No Medication/Allergy Home Medications: Acetaminophen [Tylenol 325 mg Tablet] 650 mg PO Q4HP PRN 09/09/17 Acetylcysteine [Mucomist 10% Neb 400 mg/4 mL Vial] 400 mg NEB RTQ6 09/09/17 Ascorbic Acid [Vitamin C 500 mg Tablet] 500 mg PO BID 09/09/17 Aspirin [Aspirin 81 mg Chewable Tablet] 81 mg PO DAILY 09/09/17 Benzocaine/Menthol [Chloraseptic Sore Throat Lozenge] 1 ru PO Q1HP PRN Benzonatate [Tessalon Perles 100 mg Capsule] 200 mg PO Q8HP PRN 09/09/17 Budesonide [Pulmicort 180 mcg Flexhaler] 2 puff IH Q12 09/09/17 Buspirone HCl [Buspar 5 mg Tablet] 5 mg PO Q12 09/09/17 Carboxymethylcellulose Sodium [Refresh Plus 0.5% Oph Soln 0.4 ml Droperette] 1 drop OU QID 09/09/17 Duloxetine HCl [Cymbalta] 90 mg PO DAILY 09/09/17 Ergocalciferol (Vitamin D2) [Drisdol 50,000 unit (1.25MG) Capsule] 50,000 unit PO [id number] 09/09/17 Ferrous Sulfate [Feosol 325 mg Tablet] 325 mg PO BID 09/09/17 Fluticasone/Salmeterol [Advair 500-50 Diskus 14 Dose/Diskus] 1 puff IH Q12 09/09 Hydralazine HCl [Apresoline 25 mg Tablet] 25 mg PO Q8 09/09/17 Insulin Lispro [Humalog Insulin (Lispro) 100 unit/mL] 0 units SQ .SLIDING SCALE 09/09/17 Ipratropium/Albuterol Sulfate [Iprat-Albut 0.5-3(2.5) mg/3 ml] 3 ml NEB [id number] 09/09/17 Lactulose [Enulose 10 gm/15 mL Oral Solution] 15 ml PO BIDP PRN 09/09/17 Levalbuterol HCl [Xopenex Neb 0.63 mg/3 ml Ampul] 0.63 mg NEB RTQ8 09/09/17 Magnesium Hydroxide [Milk of Magnesia 30 ml Udcup] 30 ml PO DAILYP PRN 09/09/17 Melatonin 10 mg PO QHS 09/09/17 Metoprolol Succinate [Toprol Xl 50 mg Tab.sr] 50 mg PO DAILY 09/09/17 Nitroglycerin [Nitrostat] 0.4 mg SL Q5MP PRN 09/09/17 Omeprazole 20 mg PO Q6AM 09/09/17 Polyethylene Glycol 3350 [Miralax Powder 17 gm/Packet] 17 gm PO DAILY 09/09/17 Pregabalin [Lyrica 75 mg Capsule] 75 mg PO Q8 09/09/17 Ranitidine HCl [Zantac 150 mg Tablet] 150 mg PO BID 09/09/17 Ranolazine [Ranexa 500 mg Tab.sr] 500 mg PO Q12 09/09/17 Roflumilast [Daliresp 500 mcg Tablet] 500 mcg PO DAILY 09/09/17 Sennosides/Docusate 8.6-50 mg [Senna Plus Tablet] 1 tab PO QHS 09/09/17 Tamsulosin HCl [Flomax 0.4 mg Cap.sr] 0.4 mg PO DAILY 09/09/17 Tiotropium Basehor [Spiriva Handihaler 5 Cap/Kit (18 Mcg/Cap)] 1 cap IH DAILY Diltiazem HCl [Cardizem 60 mg Tablet] 60 mg PO Q8 tablet 09/16/17 Docusate Sodium [Colace 100 mg Capsule] 100 mg PO BID capsule 09/16/17 Cetirizine HCl [Zyrtec 10 mg Tablet] 10 mg PO DAILY 04/08/18 Guaifenesin [Mucinex] 600 mg PO Q12 04/08/18 Prednisone [Deltasone 20 mg Tablet] 20 mg PO DAILY 04/08/18 Fentanyl [Duragesic 25 mcg/hr Transdermal Patch] 1 each TD Q3D #3 patch.td72 Insulin Detemir [Levemir Flextouch] 32 units SQ DAILY #1 insuln.pen 04/13/18 Baclofen 5 mg PO Q8HP PRN 06/03/18 Linaclotide [Linzess 145 Mcg Capsule] 145 mcg PO [id number] 06/03/18 Mag Hydrox/Al Hydrox/Simeth [Maalox Plus Susp 30 Udcup] 30 ml PO Q6HP PRN Oxycodone HCl [Oxy-Ir 5 mg Tablet] 10 mg PO Q8HP PRN 06/03/18 Phenazopyridine HCl [Pyridium] 200 mg PO DAILYP PRN 06/03/18 Potassium Chloride [K-Tab ER] 40 meq PO DAILY 06/03/18 Promethazine HCl [Phenergan 25 mg Tablet] 12.5 mg PO Q4HP PRN 06/03/18 Allergies/Adverse Reactions: Sulfa (Sulfonamide Antibiotics) Allergy (Intermediate, Verified 02/03/18 09:37) adhesive tape Allergy (Verified 02/03/18 09:37) atorvastatin calcium [From Lipitor] Allergy (Verified 02/03/18 09:37) celecoxib [From Celebrex] Allergy (Verified 02/03/18 09:37) Review of Systems All systems: reviewed and no additional remarkable complaints except as stated - as mentioned in HPI Physical Exam Vital Signs: Temp Pulse Resp BP Pulse Ox 98.5 F 97 18 96/48 L 97 06/03/18 09:20 06/03/18 06:02 06/03/18 15:18 06/03/18 15:18 06/03/18 15:18 Intake & Output 06/02/18 06/03/18 06/04/18 06:59 06:59 06:59 Intake Total 100 Balance 100 General appearance: PRESENT: no acute distress, well-developed, well-nourished Head exam: PRESENT: atraumatic, normocephalic Eye exam: PRESENT: conjunctiva pink, EOMI, PERRLA. ABSENT: scleral icterus Ear exam: PRESENT: normal external ear exam Mouth exam: PRESENT: moist, tongue midline Neck exam: ABSENT: carotid bruit, JVD, lymphadenopathy, thyromegaly Respiratory exam: PRESENT: rhonchi. ABSENT: rales, wheezes Cardiovascular exam: PRESENT: RRR. ABSENT: diastolic murmur, rubs, systolic murmur Pulses: PRESENT: normal dorsalis pedis pul GI/Abdominal exam: PRESENT: normal bowel sounds, soft. ABSENT: distended, guarding, mass, organolmegaly, rebound, tenderness Rectal exam: PRESENT: deferred Neurological exam: PRESENT: alert, awake, oriented to person, oriented to place , oriented to time, oriented to situation, CN II-XII grossly intact. ABSENT: motor sensory deficit Results Impressions: Chest X-Ray 06/03/18 05:54 IMPRESSION: Cardiomegaly without definite pneumonia. Assessment & Plan - Diagnosis (1) COPD exacerbation Is this a current diagnosis for this admission?: Yes Plan: Breath sounds sound better with only occasional wheezes. We will start low- dose steroids. Breathing treatments with DuoNeb. (2) UTI (urinary tract infection) due to urinary indwelling Barton catheter Qualifiers: Indwelling urinary catheter type: indwelling urethral catheter Encounter type: initial encounter Qualified Code(s): T83.511A - Infection and inflammatory reaction due to indwelling urethral catheter, initial encounter; N39.0 - Urinary tract infection, site not specified; N39.0 - Urinary tract infection, site not specified Plan: Patient's urinalysis is consistent with urinary tract infection. She does have a history of multiple UTIs and had an ESBL UTI earlier this year. Will start patient on Zosyn. Await urine culture results before the escalation. (4) ARF (acute renal failure) Qualifiers: Acute renal failure type: unspecified Qualified Code(s): N17.9 - Acute kidney failure, unspecified (5) Acute on chronic renal failure Qualifiers: Acute renal failure type: unspecified Chronic kidney disease stage: stage 3 (moderate) Qualified Code(s): N17.9 - Acute kidney failure, unspecified; N18.3 - Chronic kidney disease, stage 3 (moderate); N18.3 - Chronic kidney disease, stage 3 (moderate); N18.3 - Chronic kidney disease, stage 3 (moderate) Is this a current diagnosis for this admission?: Yes Plan: Continue IV fluids. Will recheck BMP. (6) Lactic acidosis Is this a current diagnosis for this admission?: Yes Plan: IV fluids and antibiotics. Will recheck lactic acid. - Time Time Spent: 30 to 50 Minutes
[2018-06-03] MEDS ORDERED: MAG HYDROX/AL HYDROX/SIMETH SUSP 30 ML UDCUP PO PRN (18:36)
[2018-06-03] MEDS ORDERED: POTASSIUM CHLORIDE 20 MEQ/15 ML UDCUP PO ONE (19:31)
[2018-06-03] MEDS ORDERED: IPRATROPIUM/ALBUTEROL 0.5-2.5 MG/3 ML AMPUL NEB SCH (20:00)
[2018-06-03] MEDS: OXYCODONE HCL IR 5 MG TABLET PO PRN (20:40)
[2018-06-03] MEDS: ACETAMINOPHEN 325 MG TABLET PO PRN (20:41)
[2018-06-03] MEDS: PROMETHAZINE HCL 25 MG TABLET PO PRN (20:41)
[2018-06-03] MEDS: PREDNISONE 20 MG TABLET PO SCH (20:42)
[2018-06-03] MEDS: PREGABALIN 75 MG CAPSULE PO SCH (23:40)
[2018-06-03] MEDS: FLUTICASONE/SALMETEROL DISKUS 500-50 MCG/DOSE IH SCH (23:40)
[2018-06-04] MEDS: LEVALBUTEROL HCL NEB 0.63 MG/3 ML AMPUL NEB SCH ×3 (00:28→16:14)
[2018-06-04 05:09] LABS: ANION GAP 12 (5-19); BLOOD UREA NITROGEN 32 mg/dL (7-20); CALCIUM 8.9 mg/dL (8.4-10.2); CARBON DIOXIDE 29 mmol/L (22-30); CHLORIDE 102 mmol/L (98-107); GLUCOSE 257 mg/dL (75-110); POTASSIUM 3.9 mmol/L (3.6-5.0)
[2018-06-04] MEDS: PIPERACILLIN SODIUM/TAZOBACTAM 3.375 GM in NORMAL SALINE 100 ML IV SCH ×3 (06:00→17:57)
[2018-06-04] MEDS: LANSOPRAZOLE 15 MG TAB.RAP.DR PO SCH (06:00)
[2018-06-04] MEDS: PREGABALIN 75 MG CAPSULE PO SCH ×3 (06:00→21:58)
[2018-06-04 10:39] LABS: HEMATOCRIT 27.4 % (36.0-47.0); MEAN CORPUSCULAR HEMOGLOBIN 30.1 pg (27.0-33.4); MEAN CORPUSCULAR HGB CONC 32.8 g/dL (32.0-36.0); MEAN CORPUSCULAR VOLUME 92 fl (80-97); PLATELET COUNT 198 10^3/uL (150-450); RED BLOOD COUNT 2.99 10^6/uL (3.72-5.28); RED CELL DISTRIBUTION WIDTH 15.8 % (11.5-14.0); WHITE BLOOD COUNT 22.3 10^3/uL (4.0-10.5)
[2018-06-04 11:09] LABS: ABSOLUTE LYMPHOCYTES# (MANUAL) 0.9 10^3/uL (0.5-4.7); ABSOLUTE MONOCYTES # (MANUAL) 1.1 10^3/uL (0.1-1.4); ABSOLUTE NEUTROPHILS# (MANUAL) 20.3 10^3/uL (1.7-8.2); BAND NEUTROPHILS % (MANUAL) 2 % (3-5); BASOPHILS % (MANUAL) 0 % (0-2); EOSINOPHILS % (MANUAL) 0 % (0-6); LYMPHOCYTES % (MANUAL) 3 % (13-45); METAMYELOCYTES % (MANUAL) 1 % (0); MONOCYTES % (MANUAL) 5 % (3-13); SEGMENTED NEUTROPHILS % (MAN) 88 % (42-78); TOTAL CELLS COUNTED 100
[2018-06-04 11:10] LABS: PLATELET COMMENT ADEQUATE; POLYCHROMASIA SLIGHT; TOXIC GRANULATION 1+; TOXIC VACUOLATION PRESENT
[2018-06-04] MEDS: METOPROLOL SUCCINATE 50 MG TAB.SR.24H PO SCH (11:31)
[2018-06-04] MEDS: PREDNISONE 20 MG TABLET PO SCH ×2 (11:31→18:05)
[2018-06-04] MEDS: DOCUSATE SODIUM 100 MG CAPSULE PO SCH ×2 (11:31→18:05)
[2018-06-04] MEDS: DULOXETINE HCL 30 MG CAPSULE.DR PO SCH (11:31)
[2018-06-04] MEDS: ASPIRIN 81 MG TABLET, CHEWABLE PO SCH (11:31)
[2018-06-04] MEDS: FLUTICASONE/SALMETEROL DISKUS 500-50 MCG/DOSE IH SCH ×2 (11:32→22:08)
[2018-06-04] MEDS: HEPARIN SOD (PORCINE) 5,000 UNIT/ML 1 ML SYRINGE SUBCUT SCH ×2 (11:32→21:59)
[2018-06-04] MEDS: TIOTROPIUM BROMIDE DPI 5 CAP/KIT (18 MCG/CAP) IH SCH (11:33)
[2018-06-04] MEDS: INSULIN DETEMIR 100 UNIT/ML 3 ML PEN SUBCUT SCH (11:34)
[2018-06-04] MEDS: OXYCODONE HCL IR 5 MG TABLET PO PRN ×2 (12:04→21:58)
[2018-06-04] MEDS: CIPROFLOXACIN HCL 0.3% OPH SOLN 2.5 ML OU SCH ×2 (15:14→18:06)
--- NOTE | 2018-06-04 15:37 | PDOC PROGRESS REPORT ---
Subjective Progress Note for:: 06/04/18 Subjective:: Ms. Fernandez is a 72 year old female with a past medical history of atrial fibrillation, chronic diastolic heart failure, insulin dependent diabetes mellitus, CAD, history of DVT and PE, hyperlipidemia, hypertension, asthma, COPD and history of UTI with ESBL who was brought in because of increasing weakness, cough, SOB and possible blocked Barton catheter from the [facility]. She was admitted for COPD exacerbation and UTI. On encounter, patient reports that she has been has been a moderately productive cough and progressive shortness of breath in the past 3-4 days. She says is also been having increasing weakness. She says that they are having issues with her Barton cath and at the [facility] and that it has not been draining well and she feels that her urinary bladder is getting distended. She says that there has been increasing sediments on the Barton cath. Cath was changed in the ER with good flow. No acute event overnight. Patient says that she feels slightly better today with improvement in her weakness. No fever or chills. She says her breathing has also improved compared to yesterday. Denies chest pain, dizziness, nausea or vomiting. Reason For Visit: UTI,LACTIC ACIDOSIS Physical Exam Vital Signs: Temp Pulse Resp BP Pulse Ox 98.3 F 87 18 119/52 L 97 06/04/18 10:54 06/04/18 14:00 06/04/18 10:54 06/04/18 10:54 06/04/18 10:54 Intake & Output 06/03/18 06/04/18 06/05/18 06:59 06:59 06:59 Intake Total 720 Output Total 1200 Balance -480 Weight 200 lb 2.876 oz General appearance: PRESENT: no acute distress, well-developed, well-nourished Head exam: PRESENT: atraumatic, normocephalic Eye exam: PRESENT: conjunctiva pink, EOMI, PERRLA. ABSENT: scleral icterus Ear exam: PRESENT: normal external ear exam Neck exam: ABSENT: carotid bruit, JVD, lymphadenopathy, thyromegaly Respiratory exam: PRESENT: clear to auscultation elia. ABSENT: rales, rhonchi, wheezes Cardiovascular exam: PRESENT: RRR. ABSENT: diastolic murmur, rubs, systolic murmur Pulses: PRESENT: normal dorsalis pedis pul GI/Abdominal exam: PRESENT: normal bowel sounds, soft. ABSENT: distended, guarding, mass, organolmegaly, rebound, tenderness Rectal exam: PRESENT: deferred Neurological exam: PRESENT: alert, awake, oriented to person, oriented to place , oriented to time, oriented to situation, CN II-XII grossly intact. ABSENT: motor sensory deficit Results Laboratory Results: 06/04/18 03:36 06/04/18 03:36 06/03/18 06/04/18 06/04/18 20:13 03:36 03:36 WBC 22.3 H RBC 2.99 L Hgb 9.0 L Hct 27.4 L MCV 92 MCH 30.1 MCHC 32.8 RDW 15.8 H Plt Count 198 Seg Neutrophils % Not Reportable Lymphocytes % Not Reportable Monocytes % Not Reportable Eosinophils % Not Reportable Basophils % Not Reportable Absolute Neutrophils Not Reportable Absolute Lymphocytes Not Reportable Absolute Monocytes Not Reportable Absolute Eosinophils Not Reportable Absolute Basophils Not Reportable Sodium 143.0 Potassium 3.9 Chloride 102 Carbon Dioxide 29 Anion Gap 12 BUN 32 H Creatinine 1.42 H Est GFR ( Amer) 44 L Est GFR (Non-Af Amer) 36 L Glucose 257 H Lactic Acid 1.3 Calcium 8.9 06/04/18 10:30 WBC RBC Hgb Hct MCV MCH MCHC RDW Plt Count Seg Neutrophils % Lymphocytes % Monocytes % Eosinophils % Basophils % Absolute Neutrophils Absolute Lymphocytes Absolute Monocytes Absolute Eosinophils Absolute Basophils Sodium Potassium Chloride Carbon Dioxide Anion Gap BUN Creatinine Est GFR ( Amer) Est GFR (Non-Af Amer) Glucose Lactic Acid 0.8 Calcium Impressions: Chest X-Ray 06/03/18 05:54 IMPRESSION: Cardiomegaly without definite pneumonia. Assessment & Plan - Diagnosis (1) Sepsis Is this a current diagnosis for this admission?: Yes Plan: Likely secondary to pyelonephritis. Patient did present with tachycardia, significant leukocytosis, lactic acidosis and increased creatinine. Blood culture is growing gram-negative rods 1/2 bottles so far. Urine culture pending. Continue Zosyn. Continue IV fluids. (2) UTI (urinary tract infection) due to urinary indwelling Barton catheter Qualifiers: Indwelling urinary catheter type: indwelling urethral catheter Encounter type: initial encounter Qualified Code(s): T83.511A - Infection and inflammatory reaction due to indwelling urethral catheter, initial encounter; N39.0 - Urinary tract infection, site not specified; N39.0 - Urinary tract infection, site not specified Is this a current diagnosis for this admission?: Yes Plan: Patient's urinalysis is consistent with urinary tract infection. She does have a history of multiple UTIs and had an ESBL UTI earlier this year. Continue Zosyn. Blood culture is growing gram negative rods 1/2. (3) COPD exacerbation Is this a current diagnosis for this admission?: Yes Plan: Improved. Continue steroids and breathing treatments with DuoNeb. (4) Acute kidney injury Is this a current diagnosis for this admission?: Yes Plan: Continue IV fluids. Will recheck BMP tomorrow. (5) Lactic acidosis Is this a current diagnosis for this admission?: Yes Plan: Resolved with IV fluids. - Time Time Spent with patient: 25-34 minutes
[2018-06-04] MEDS ORDERED: VANCOMYCIN HCL 0 MG in DEXTROSE 5%-WATER 250 ML IV NR (16:00)
[2018-06-04] MEDS: VANCOMYCIN HCL 1,250 MG in DEXTROSE 5%-WATER 250 ML IV SCH (20:39)
[2018-06-04] MEDS: INSULIN LISPRO 100 UNIT/ML 3 ML VIAL SUBCUT PRN (22:16)
[2018-06-05] MEDS: LEVALBUTEROL HCL NEB 0.63 MG/3 ML AMPUL NEB SCH ×3 (00:09→15:48)
[2018-06-05] MEDS: CIPROFLOXACIN HCL 0.3% OPH SOLN 2.5 ML OU SCH ×4 (01:23→17:54)
[2018-06-05] MEDS: ACETAMINOPHEN 325 MG TABLET PO PRN ×3 (01:24→17:53)
[2018-06-05] MEDS: PIPERACILLIN SODIUM/TAZOBACTAM 3.375 GM in NORMAL SALINE 100 ML IV SCH ×3 (01:24→15:36)
[2018-06-05] MEDS: NORMAL SALINE 1000 ML 1,000 ML IV PRN (01:25)
[2018-06-05] MEDS: OXYCODONE HCL IR 5 MG TABLET PO PRN (06:07)
[2018-06-05] MEDS: PREGABALIN 75 MG CAPSULE PO SCH ×3 (06:07→23:20)
[2018-06-05] MEDS: LANSOPRAZOLE 15 MG TAB.RAP.DR PO SCH (06:08)
[2018-06-05] MEDS: PREDNISONE 20 MG TABLET PO SCH ×2 (09:51→17:52)
[2018-06-05] MEDS: ASPIRIN 81 MG TABLET, CHEWABLE PO SCH (09:51)
[2018-06-05] MEDS: METOPROLOL SUCCINATE 50 MG TAB.SR.24H PO SCH (09:52)
[2018-06-05] MEDS: TIOTROPIUM BROMIDE DPI 5 CAP/KIT (18 MCG/CAP) IH SCH (09:52)
[2018-06-05] MEDS: DULOXETINE HCL 30 MG CAPSULE.DR PO SCH (09:52)
[2018-06-05] MEDS: HEPARIN SOD (PORCINE) 5,000 UNIT/ML 1 ML SYRINGE SUBCUT SCH ×2 (09:53→23:19)
[2018-06-05] MEDS: DOCUSATE SODIUM 100 MG CAPSULE PO SCH ×2 (09:54→17:54)
[2018-06-05] MEDS: INSULIN DETEMIR 100 UNIT/ML 3 ML PEN SUBCUT SCH (09:54)
[2018-06-05] MEDS: FLUTICASONE/SALMETEROL DISKUS 500-50 MCG/DOSE IH SCH ×2 (09:54→23:35)
[2018-06-05] MEDS: INSULIN LISPRO 100 UNIT/ML 3 ML VIAL SUBCUT PRN ×2 (09:55→23:20)
--- NOTE | 2018-06-05 10:14 | Physician Advisory Note ---
Physician Advisor ProgressNote .: Pursuant to the plan for [facility], I have reviewed the medical record for this patient. Physician Advisor Statement: Very nice documentation of chronic diastolic type CHF, chronic resp failure ( requiring __L O2 at baseline). Please consider documenting, if you agree: 1. "Acute on chronic Hypoxemic Resp Failure, evidenced by worsened SOB with labored breathing/tachypnea/tachycardia in ED despite 3L O2" - & state whether "likely due to sepsis", or "due to COPD exac", or both. 2. Dx Clarifications: JASPREET: (A) is this likely "due to sepsis"? or due to something else? (B) "baseline Cr = 1.0" Pyelo = acute or chronic? Afib: chronic or paroxysmal? Thanks! CK Additional support for dx.s given, for reviewers: Acute on chronic Hypoxemic Resp Failure: per [facility], 2010 & 2012, respectively, "Any degree of respiratory acidosis or worsening of respiratory sx indicates that acute respiratory failure is now superimposed on the chronic state", & "The dx of acute on chronic resp failure is in order whenever a pt experiences an acute exac or decompensation of chronic resp failure. It is recognized by any of the following: worsening sx, greater hypoxemia or resp acidosis (hypercapnic resp failure)." Sepsis - pt w/MAPs in the 60s repeatedly, JASPREET that may be due to sepsis, Ac Resp Failure that could possibly be due to sepsis, (+)BC - in addition to clearly meeting Sepsis-2 criteria as documented.
[2018-06-05] MEDS ORDERED: (PENDING PHARMACY ID) (Baclofen [Baclofen] 5 MG) PO PRN (12:26)
[2018-06-05 14:01] LABS: HEMOGLOBIN 8.9 g/dL (12.0-15.5); MEAN CORPUSCULAR HEMOGLOBIN 30.4 pg (27.0-33.4); MEAN CORPUSCULAR HGB CONC 34.3 g/dL (32.0-36.0); MEAN CORPUSCULAR VOLUME 89 fl (80-97); PLATELET COUNT 177 10^3/uL (150-450); RED BLOOD COUNT 2.93 10^6/uL (3.72-5.28); RED CELL DISTRIBUTION WIDTH 14.9 % (11.5-14.0); WHITE BLOOD COUNT 12.9 10^3/uL (4.0-10.5)
[2018-06-05 14:25] LABS: ANION GAP 12 (5-19); BLOOD UREA NITROGEN 22 mg/dL (7-20); CALCIUM 9.3 mg/dL (8.4-10.2); CARBON DIOXIDE 27 mmol/L (22-30); CHLORIDE 102 mmol/L (98-107); GLUCOSE 195 mg/dL (75-110); POTASSIUM 4.2 mmol/L (3.6-5.0); SODIUM 140.9 mmol/L (137-145)
[2018-06-05 14:33] LABS: ABSOLUTE LYMPHOCYTES# (MANUAL) 0.6 10^3/uL (0.5-4.7); ABSOLUTE MONOCYTES # (MANUAL) 0.1 10^3/uL (0.1-1.4); ABSOLUTE NEUTROPHILS# (MANUAL) 12.1 10^3/uL (1.7-8.2); BASOPHILS % (MANUAL) 0 % (0-2); EOSINOPHILS % (MANUAL) 0 % (0-6); LYMPHOCYTES % (MANUAL) 5 % (13-45); MONOCYTES % (MANUAL) 1 % (3-13); SEGMENTED NEUTROPHILS % (MAN) 94 % (42-78); TOTAL CELLS COUNTED 100
[2018-06-05 14:34] LABS: PLATELET COMMENT ADEQUATE; POLYCHROMASIA SLIGHT; TOXIC GRANULATION 1+; TOXIC VACUOLATION PRESENT
[2018-06-05] MEDS: IPRATROPIUM/ALBUTEROL 0.5-2.5 MG/3 ML AMPUL NEB PRN ×2 (14:37→20:48)
[2018-06-05] MEDS: ACETYLCYSTEINE 10% NEB 400 MG/4 ML VIAL NEB SCH ×2 (14:38→20:47)
--- NOTE | 2018-06-05 16:32 | PDOC PROGRESS REPORT ---
Subjective Progress Note for:: 06/05/18 Subjective:: Ms. Fernandez is a 72 year old female with a past medical history of atrial fibrillation, chronic diastolic heart failure, insulin dependent diabetes mellitus, CAD, history of DVT and PE, hyperlipidemia, hypertension, asthma, COPD , on indwelling Barton cath from hypotonic bladder recurrent UTI and history of UTI with ESBL who was brought in because of increasing weakness, cough, SOB and possible blocked Barton catheter from the [place] [facility]. She was admitted for COPD exacerbation and UTI. On encounter, patient reports that she has been has been a moderately productive cough and progressive shortness of breath in the past 3-4 days. She says is also been having increasing weakness. She says that they are having issues with her Barton cath and at the [place] [facility] and that it has not been draining well and she feels that her urinary bladder is getting distended. She says that there has been increasing sediments on the Barton cath. Cath was changed in the ER with good flow. No acute event overnight. Patient says continues to feel better today. No fever or chills. Her breathing has also improved and she says that she feels like her chest is starting to loosen up she is not expectorating. Denies chest pain, dizziness, nausea or vomiting. Reason For Visit: UTI,LACTIC ACIDOSIS Physical Exam Vital Signs: Temp Pulse Resp BP Pulse Ox 98.4 F 78 16 141/69 H 100 06/05/18 11:20 06/05/18 14:46 06/05/18 14:46 06/05/18 11:20 06/05/18 14:46 Intake & Output 06/04/18 06/05/18 06/06/18 06:59 06:59 06:59 Intake Total 720 1510 100 Output Total 1200 1325 Balance -480 185 100 Weight 200 lb 2.876 oz 199 lb 11.821 oz General appearance: PRESENT: no acute distress, well-developed, well-nourished Head exam: PRESENT: atraumatic, normocephalic Eye exam: PRESENT: conjunctiva pink, EOMI, PERRLA. ABSENT: scleral icterus Ear exam: PRESENT: normal external ear exam Mouth exam: PRESENT: moist, tongue midline Neck exam: ABSENT: carotid bruit, JVD, lymphadenopathy, thyromegaly Respiratory exam: PRESENT: clear to auscultation elia. ABSENT: rales, rhonchi, wheezes Cardiovascular exam: PRESENT: RRR. ABSENT: diastolic murmur, rubs, systolic murmur Pulses: PRESENT: normal dorsalis pedis pul Rectal exam: PRESENT: deferred Neurological exam: PRESENT: alert, awake, oriented to person, oriented to place , oriented to time, oriented to situation, CN II-XII grossly intact. ABSENT: motor sensory deficit Results Laboratory Results: 06/05/18 13:10 06/05/18 13:10 06/05/18 06/05/18 13:10 13:10 WBC 12.9 H RBC 2.93 L Hgb 8.9 L Hct 26.0 L MCV 89 MCH 30.4 MCHC 34.3 RDW 14.9 H Plt Count 177 Seg Neutrophils % Not Reportable Lymphocytes % Not Reportable Monocytes % Not Reportable Eosinophils % Not Reportable Basophils % Not Reportable Absolute Neutrophils Not Reportable Absolute Lymphocytes Not Reportable Absolute Monocytes Not Reportable Absolute Eosinophils Not Reportable Absolute Basophils Not Reportable Sodium 140.9 Potassium 4.2 Chloride 102 Carbon Dioxide 27 Anion Gap 12 BUN 22 H Creatinine 1.12 Est GFR ( Amer) 58 L Est GFR (Non-Af Amer) 48 L Glucose 195 H Calcium 9.3 Impressions: Chest X-Ray 06/03/18 05:54 IMPRESSION: Cardiomegaly without definite pneumonia. Assessment & Plan - Diagnosis (1) Sepsis Is this a current diagnosis for this admission?: Yes Plan: Likely secondary to pyelonephritis. Patient did present with tachycardia, significant leukocytosis, lactic acidosis and increased creatinine. Patient did present with tachycardia, significant leukocytosis, lactic acidosis and increased creatinine. Blood culture is growing gram-negative rods 1/2 bottles so far and the other bottle growing gram positive cocci. Urine culture pending. Appreciate ID recommendation. Zosyn switched to meropenem. Continue vancomycin. Continue IV fluids. (2) UTI (urinary tract infection) due to urinary indwelling Barton catheter Qualifiers: Indwelling urinary catheter type: indwelling urethral catheter Encounter type: initial encounter Qualified Code(s): T83.511A - Infection and inflammatory reaction due to indwelling urethral catheter, initial encounter; N39.0 - Urinary tract infection, site not specified; N39.0 - Urinary tract infection, site not specified Is this a current diagnosis for this admission?: Yes Plan: Patient's urinalysis is consistent with urinary tract infection. She does have a history of multiple UTIs and had an ESBL UTI earlier this year. Appreciate ID recommendation to switch antibiotics to meropenem due to recent ESBL UTI. Discussed with patient option to do intermittent catheterization instead to reduce the risk of her getting recurrent urinary tract infections. She is resistant to this idea and prefers to have the indwelling Barton cath. She says she will discuss this with her urologist on outpatient follow-up. (3) COPD exacerbation Is this a current diagnosis for this admission?: Yes Plan: Resolved. Continue low-dose steroids. Breathing treatments with DuoNeb. (4) ARF (acute renal failure) Qualifiers: Acute renal failure type: unspecified Qualified Code(s): N17.9 - Acute kidney failure, unspecified Is this a current diagnosis for this admission?: Yes (5) Acute on chronic renal failure Qualifiers: Acute renal failure type: unspecified Chronic kidney disease stage: stage 3 (moderate) Qualified Code(s): N17.9 - Acute kidney failure, unspecified; N18.3 - Chronic kidney disease, stage 3 (moderate); N18.3 - Chronic kidney disease, stage 3 (moderate); N18.3 - Chronic kidney disease, stage 3 (moderate) Is this a current diagnosis for this admission?: Yes Plan: Resolved. Continue IV fluids. (6) Lactic acidosis Is this a current diagnosis for this admission?: Yes Plan: Resolved with IV fluids. - Time Time Spent with patient: 25-34 minutes
[2018-06-05] MEDS: VANCOMYCIN HCL 1,250 MG in DEXTROSE 5%-WATER 250 ML IV SCH (17:52)
[2018-06-05] MEDS: BACLOFEN 10 MG TABLET PO PRN (17:53)
--- NOTE | 2018-06-05 18:22 | Progress Note ---
Provider Note Provider Note: ID Consult Note Asked by Pharmacy to review patient's chart. Pt not seen or examined. Spoke briefly with Dr Tate via telephone. Ms Fernandez is a 72 year old female [facility] resident with PMH including obesity, AF, CHF, DM, hx of VTE, COPD, indwelling folley catheter and urinary colonization with ESBL E coli and, more remotely, also a carbapenem resistant Klebsiella. She presented to [facility] ED with c/o increasing SOB with chest tightness and productive cough over the past 3-4 days and also complaint that her Barton catheter has not been draining well with associated increased sensation of bladder distention. VS: Tmax 102.8 on day of presentation but afebrile since then with tachycardia and some tachypnea initially, both now resolved. Initial exam notable for rhonchi and wheezing. Labs included WBC count of 17k on 06/03/18 when she presented and slightly increased lactic acid level 2.3. BCx obtained on 06/03 have GPCs in clusters preliminarily reported from one blood culture bottle only of one set. A Gram negative sarai was detected in one bottle from the other set obtained on 06/03. CXR was read as showing cardiomegaly with clear lungs. Urinary catheter was changed in the ED. Impression/Recommendations 1. Sepsis due to Gram negative bacillary bacteremia from urinary source - Pt had fever and leukocytosis when she presented, in conjunction with Gram negative rods present in one blood culture set and possible obstructed Barton catheter. Pt appears to have GNR bacteremia secondary to a urinary source causing sepsis. With her history of urinary ESBL E coli colonization and a GNR in her blood cultures that has not been identified yet, empirically treating the patient with a carbapenem such as ertapenem or meropenem is prudent. Depending on the identification and susceptibility results, it may be possible to de-escalate. - Urinary catheter was exchanged in ED. UCx presumably may have been after urinary catheter exchange/new Barton placement, which is entirely appropriate and favored to reduce effect of the tube being colonized. Follow up results. - U/A in pt with Barton does not help make decision of whether UTI is present because it essentially always shows pyuria from the Barton being in place. But in this patient's case the clinical scenario is compatible with UTI. 2. GPCs in clusters in one blood culture bottle (bacteremia vs pseudobacteremia? ) - anticipate this might be a coagulase negative Staph blood culture contaminant , but until the GPCs are identified, agree with continuing IV vancomycin. Charli Orozco MD [facility] Infectious Diseases pager [phone]
[2018-06-05] MEDS ORDERED: (PENDING PHARMACY ID) (Melatonin [Melatonin] 10 MG) PO SCH (22:00)
[2018-06-05] MEDS: MELATONIN 5 MG TABLET PO SCH (23:20)
[2018-06-05] MEDS: MEROPENEM 1 GM in NORMAL SALINE 50 ML IV SCH (23:29)
[2018-06-06] MEDS: LEVALBUTEROL HCL NEB 0.63 MG/3 ML AMPUL NEB SCH ×3 (00:08→16:00)
[2018-06-06] MEDS: CIPROFLOXACIN HCL 0.3% OPH SOLN 2.5 ML OU SCH ×4 (01:08→18:40)
[2018-06-06] MEDS: OXYCODONE HCL IR 5 MG TABLET PO PRN ×3 (01:14→21:09)
[2018-06-06] MEDS: IPRATROPIUM/ALBUTEROL 0.5-2.5 MG/3 ML AMPUL NEB PRN ×3 (02:06→20:28)
[2018-06-06] MEDS: ACETYLCYSTEINE 10% NEB 400 MG/4 ML VIAL NEB SCH ×4 (02:06→20:28)
[2018-06-06] MEDS: MEROPENEM 1 GM in NORMAL SALINE 50 ML IV SCH ×3 (05:50→21:08)
[2018-06-06] MEDS: NORMAL SALINE 1000 ML 1,000 ML IV PRN (05:50)
[2018-06-06] MEDS: PREGABALIN 75 MG CAPSULE PO SCH ×3 (05:50→21:08)
[2018-06-06] MEDS: LANSOPRAZOLE 15 MG TAB.RAP.DR PO SCH (05:50)
[2018-06-06] MEDS: ACETAMINOPHEN 325 MG TABLET PO PRN (05:51)
[2018-06-06] MEDS: POLYETHYLENE GLYCOL 3350 POWDER 17 GM/1 PACKET PO SCH (09:59)
[2018-06-06] MEDS: DOCUSATE SODIUM 100 MG CAPSULE PO SCH ×2 (09:59→18:38)
[2018-06-06] MEDS: DULOXETINE HCL 30 MG CAPSULE.DR PO SCH (10:02)
[2018-06-06] MEDS: HEPARIN SOD (PORCINE) 5,000 UNIT/ML 1 ML SYRINGE SUBCUT SCH ×2 (10:04→21:18)
[2018-06-06] MEDS: TIOTROPIUM BROMIDE DPI 5 CAP/KIT (18 MCG/CAP) IH SCH (10:05)
[2018-06-06] MEDS: ASPIRIN 81 MG TABLET, CHEWABLE PO SCH (10:05)
[2018-06-06] MEDS: PREDNISONE 20 MG TABLET PO SCH ×2 (10:05→18:40)
[2018-06-06] MEDS: METOPROLOL SUCCINATE 50 MG TAB.SR.24H PO SCH (10:05)
[2018-06-06] MEDS: FLUTICASONE/SALMETEROL DISKUS 500-50 MCG/DOSE IH SCH ×2 (10:05→21:07)
[2018-06-06] MEDS: INSULIN DETEMIR 100 UNIT/ML 3 ML PEN SUBCUT SCH (10:06)
[2018-06-06] MEDS: FENTANYL 12 MCG/HR PATCH.TD72 TD SCH (12:30)
[2018-06-06] MEDS: BUSPIRONE HCL 10 MG TABLET PO SCH ×2 (12:34→21:07)
--- NOTE | 2018-06-06 15:06 | RADIOLOGY REPORT (SQ) ---
EXAM DESCRIPTION: PICC INSERTION; FLUORO/CV PLACEMENT; U/S GUIDE FOR VASCULAR ACCESS COMPLETED DATE/TIME: 06/06/2018 2:54 pm REASON FOR STUDY: [facility] IV antibiotics; IV ABX; IV ACCESS COMPARISON: AP chest 06/03/2018 FLUOROSCOPY TIME: 0.5 minutes 1 ultrasound and 1 digital chest fluoroscopic images saved to PACS. TECHNIQUE: Fluoroscopic and ultrasound guided PICC placement. LIMITATIONS: None. PROCEDURE: After written consent and assessment were obtained, the patient was brought into the fluo roscopy room and placed supine on the table. Ultrasound evaluation of potential access sites were per formed. After successfully identifying a patent right basilic vein, the right arm was prepped and lexis ped in a sterile fashion along with the ultrasound probe. The entry site was anesthetized with 1% lid ocaine. A 21 gauge 7 cm needle was advanced through the skin and into the basilic vein under live ult rasound guidance. An ultrasound image was saved to PACS confirming access site. A .018 guide wire w as then inserted through the needle and into the venous system. The needle was then removed and an 11 blade scalpel was used to make a 1cm skin incision. A 5 fr peel-away sheath was advanced over the w rita and into the venous system. A measurement was then made using the existing wire and live fluorosc opic guidance. The wire was then removed and trimmed. The PICC was advanced through the peel-away she ath and into the venous system. The peel-away sheath was removed and the catheter was adhered to the patients arm with a stat lock. The catheter was then aspirated and flushed and a sterile bandage was placed over the access site. A fluoroscopic spot image was saved to PACS confirming the catheter tip within the superior vena cava. IMPRESSION: SUCCESSFUL PLACEMENT OF A 5 FR DUAL LUMEN 41 CM PICC IN THE RIGHT BASILIC VEIN. COMMENT: Patient medication list reviewed: Yes- Quality ID# [id number]:Eligible professional attests to doc umenting in the medical record they obtained, updated, or reviewed the patient's current medications. . Quality ID 145: Final reports for procedures using fluoroscopy that document radiation exposure jl artemio, or exposure time and number of fluorographic images (if radiation exposure indices are not avail able) Quality ID #76: The patient was prepped and draped using maximum sterile barrier technique including cap, mask, sterile gown, sterile gloves, a large sterile sheet, hand hygiene, and 2% Chlorhexidine fo r cutaneous antisepsis. When ultrasound is used, sterile ultrasound techniques are followed requiring sterile gel and sterile probes. TECHNICAL DOCUMENTATION: JOB ID: [id number] [employer]- All Rights Reserved rev-11/15 Reading location - IP/workstation name: [email or web address] [id number]
--- NOTE | 2018-06-06 15:06 | RADIOLOGY REPORT (SQ) ---
EXAM DESCRIPTION: PICC INSERTION; FLUORO/CV PLACEMENT; U/S GUIDE FOR VASCULAR ACCESS COMPLETED DATE/TIME: 06/06/2018 2:54 pm REASON FOR STUDY: [facility] IV antibiotics; IV ABX; IV ACCESS COMPARISON: AP chest 06/03/2018 FLUOROSCOPY TIME: 0.5 minutes 1 ultrasound and 1 digital chest fluoroscopic images saved to PACS. TECHNIQUE: Fluoroscopic and ultrasound guided PICC placement. LIMITATIONS: None. PROCEDURE: After written consent and assessment were obtained, the patient was brought into the fluo roscopy room and placed supine on the table. Ultrasound evaluation of potential access sites were per formed. After successfully identifying a patent right basilic vein, the right arm was prepped and lexis ped in a sterile fashion along with the ultrasound probe. The entry site was anesthetized with 1% lid ocaine. A 21 gauge 7 cm needle was advanced through the skin and into the basilic vein under live ult rasound guidance. An ultrasound image was saved to PACS confirming access site. A .018 guide wire w as then inserted through the needle and into the venous system. The needle was then removed and an 11 blade scalpel was used to make a 1cm skin incision. A 5 fr peel-away sheath was advanced over the w rita and into the venous system. A measurement was then made using the existing wire and live fluorosc opic guidance. The wire was then removed and trimmed. The PICC was advanced through the peel-away she ath and into the venous system. The peel-away sheath was removed and the catheter was adhered to the patients arm with a stat lock. The catheter was then aspirated and flushed and a sterile bandage was placed over the access site. A fluoroscopic spot image was saved to PACS confirming the catheter tip within the superior vena cava. IMPRESSION: SUCCESSFUL PLACEMENT OF A 5 FR DUAL LUMEN 41 CM PICC IN THE RIGHT BASILIC VEIN. COMMENT: Patient medication list reviewed: Yes- Quality ID# [id number]:Eligible professional attests to doc umenting in the medical record they obtained, updated, or reviewed the patient's current medications. . Quality ID 145: Final reports for procedures using fluoroscopy that document radiation exposure jl artemio, or exposure time and number of fluorographic images (if radiation exposure indices are not avail able) Quality ID #76: The patient was prepped and draped using maximum sterile barrier technique including cap, mask, sterile gown, sterile gloves, a large sterile sheet, hand hygiene, and 2% Chlorhexidine fo r cutaneous antisepsis. When ultrasound is used, sterile ultrasound techniques are followed requiring sterile gel and sterile probes. TECHNICAL DOCUMENTATION: JOB ID: [id number] [employer]- All Rights Reserved rev-11/15 Reading location - IP/workstation name: [email or web address] [id number]
[2018-06-06] MEDS: BACLOFEN 10 MG TABLET PO PRN (15:46)
--- NOTE | 2018-06-06 17:19 | PDOC PROGRESS REPORT ---
Subjective Progress Note for:: 06/06/18 Subjective:: Ms. Fernnadez is a 72 year old female with a past medical history of atrial fibrillation, chronic diastolic heart failure, insulin dependent diabetes mellitus, CAD, history of DVT and PE, hyperlipidemia, hypertension, asthma, COPD , on indwelling Barton cath from hypotonic bladder recurrent UTI and history of UTI with ESBL who was brought in because of increasing weakness, cough, SOB and possible blocked Barton catheter from the skilled nursing. She was admitted for COPD exacerbation and UTI. Patient reports that she has been has been a moderately productive cough and progressive shortness of breath in the past 3-4 days. She says is also been having increasing weakness. She says that they are having issues with her Barton cath and at the skilled nursing and that it has not been draining well and she feels that her urinary bladder is getting distended. She says that there has been increasing sediments on the Barton cath. Cath was changed in the ER with good flow. No acute event overnight. Patient says continues to feel better today. No fever or chills. Her breathing has also improved and she says that she feels like her chest is starting to loosen up she is not expectorating. Denies chest pain, dizziness, nausea or vomiting. Reason For Visit: UTI,LACTIC ACIDOSIS Physical Exam Vital Signs: Temp Pulse Resp BP Pulse Ox 98.5 F 72 18 139/65 H 97 06/06/18 15:32 06/06/18 16:02 06/06/18 16:02 06/06/18 15:32 06/06/18 16:02 Intake & Output 06/05/18 06/06/18 06/07/18 06:59 06:59 06:59 Intake Total 1510 2614 Output Total 1325 1350 Balance 185 1264 Weight 199 lb 11.821 oz 199 lb 11.821 oz General appearance: PRESENT: no acute distress, well-developed, well-nourished Head exam: PRESENT: atraumatic, normocephalic Eye exam: PRESENT: conjunctiva pink, EOMI, PERRLA. ABSENT: scleral icterus Ear exam: PRESENT: normal external ear exam Mouth exam: PRESENT: moist, tongue midline Neck exam: ABSENT: carotid bruit, JVD, lymphadenopathy, thyromegaly Respiratory exam: PRESENT: clear to auscultation elia. ABSENT: rales, rhonchi, wheezes Cardiovascular exam: PRESENT: RRR. ABSENT: diastolic murmur, rubs, systolic murmur Pulses: PRESENT: normal dorsalis pedis pul GI/Abdominal exam: PRESENT: normal bowel sounds, soft. ABSENT: distended, guarding, mass, organolmegaly, rebound, tenderness Rectal exam: PRESENT: deferred Neurological exam: PRESENT: alert, awake, oriented to person, oriented to place , oriented to time, oriented to situation, CN II-XII grossly intact. ABSENT: motor sensory deficit Results Laboratory Results: 06/05/18 13:10 06/05/18 13:10 Impressions: Chest X-Ray 06/03/18 05:54 IMPRESSION: Cardiomegaly without definite pneumonia. Guidance Fluoroscopy 06/06/18 00:00 IMPRESSION: SUCCESSFUL PLACEMENT OF A 5 FR DUAL LUMEN 41 CM PICC IN THE RIGHT BASILIC VEIN. Interventional Vascular Procedure 06/06/18 00:00 IMPRESSION: SUCCESSFUL PLACEMENT OF A 5 FR DUAL LUMEN 41 CM PICC IN THE RIGHT BASILIC VEIN. PICC Line Insertion 06/06/18 00:00 IMPRESSION: SUCCESSFUL PLACEMENT OF A 5 FR DUAL LUMEN 41 CM PICC IN THE RIGHT BASILIC VEIN. Assessment & Plan - Diagnosis (1) Sepsis Is this a current diagnosis for this admission?: Yes Plan: Likely secondary to pyelonephritis. Patient did present with tachycardia, significant leukocytosis, lactic acidosis and increased creatinine. Patient did present with tachycardia, significant leukocytosis, lactic acidosis and increased creatinine. Blood culture E. coli ESBL 1/2 bottle far and the other bottle growing gram positive cocci. Urine culture is growing gram negative rods. Appreciate ID recommendation. Continue meropenem. Continue vancomycin. Continue IV fluids. (2) UTI (urinary tract infection) due to urinary indwelling Barton catheter Qualifiers: Indwelling urinary catheter type: indwelling urethral catheter Encounter type: initial encounter Qualified Code(s): T83.511A - Infection and inflammatory reaction due to indwelling urethral catheter, initial encounter; N39.0 - Urinary tract infection, site not specified; N39.0 - Urinary tract infection, site not specified Is this a current diagnosis for this admission?: Yes Plan: Patient's urinalysis is consistent with urinary tract infection. She does have a history of multiple UTIs and had an ESBL UTI earlier this year. Appreciate ID recommendation. Blood culture E. coli ESBL 1/2 bottle far and the other bottle growing gram positive cocci. Urine culture is growing gram negative rods. Appreciate ID recommendation. Continue meropenem. Continue vancomycin. Discussed with patient option to do intermittent catheterization instead to reduce the risk of her getting recurrent urinary tract infections. She is resistant to this idea and prefers to have the indwelling Barton cath. She says she will discuss this with her urologist on outpatient follow-up. (3) COPD exacerbation Is this a current diagnosis for this admission?: Yes Plan: Resolved. Continue low-dose steroids. Breathing treatments with DuoNeb. (4) ARF (acute renal failure) Qualifiers: Acute renal failure type: unspecified Qualified Code(s): N17.9 - Acute kidney failure, unspecified Is this a current diagnosis for this admission?: Yes Plan: Resolved. (5) Acute on chronic renal failure Qualifiers: Acute renal failure type: unspecified Chronic kidney disease stage: stage 3 (moderate) Qualified Code(s): N17.9 - Acute kidney failure, unspecified; N18.3 - Chronic kidney disease, stage 3 (moderate); N18.3 - Chronic kidney disease, stage 3 (moderate); N18.3 - Chronic kidney disease, stage 3 (moderate) Is this a current diagnosis for this admission?: Yes Plan: Resolved. Continue IV fluids. (6) Lactic acidosis Is this a current diagnosis for this admission?: Yes Plan: Resolved with IV fluids. - Time Time Spent with patient: 25-34 minutes
[2018-06-06] MEDS: VANCOMYCIN HCL 1,250 MG in DEXTROSE 5%-WATER 250 ML IV SCH (18:40)
[2018-06-06] MEDS ORDERED: NORMAL SALINE 10 ML SDV (AFTER EACH USE) IV PRN (19:43)
[2018-06-06] MEDS: FUROSEMIDE 20 MG TABLET PO SCH (21:06)
[2018-06-06] MEDS: MELATONIN 5 MG TABLET PO SCH (21:08)
[2018-06-06] MEDS: NORMAL SALINE 10 ML SDV (SCHEDULED) IV SCH (21:09)
[2018-06-07] MEDS: LEVALBUTEROL HCL NEB 0.63 MG/3 ML AMPUL NEB SCH ×3 (00:18→16:22)
[2018-06-07] MEDS: BENZONATATE 100 MG CAPSULE PO PRN ×2 (00:26→23:10)
[2018-06-07] MEDS: CIPROFLOXACIN HCL 0.3% OPH SOLN 2.5 ML OU SCH ×4 (00:27→17:29)
[2018-06-07] MEDS: NORMAL SALINE 1000 ML 1,000 ML IV PRN (00:32)
[2018-06-07] MEDS: BACLOFEN 10 MG TABLET PO PRN ×2 (01:33→21:56)
[2018-06-07] MEDS: ACETAMINOPHEN 325 MG TABLET PO PRN ×3 (01:33→21:55)
[2018-06-07] MEDS: ACETYLCYSTEINE 10% NEB 400 MG/4 ML VIAL NEB SCH ×4 (02:18→19:39)
[2018-06-07] MEDS: PREGABALIN 75 MG CAPSULE PO SCH ×3 (05:15→21:53)
[2018-06-07] MEDS: MEROPENEM 1 GM in NORMAL SALINE 50 ML IV SCH ×3 (05:15→21:53)
[2018-06-07] MEDS: LANSOPRAZOLE 15 MG TAB.RAP.DR PO SCH (05:15)
[2018-06-07] MEDS: OXYCODONE HCL IR 5 MG TABLET PO PRN ×2 (05:20→15:06)
[2018-06-07] MEDS: HEPARIN SOD (PORCINE) 5,000 UNIT/ML 1 ML SYRINGE SUBCUT SCH ×2 (10:09→21:53)
[2018-06-07] MEDS: FUROSEMIDE 20 MG TABLET PO SCH (10:10)
[2018-06-07] MEDS: BUSPIRONE HCL 10 MG TABLET PO SCH ×2 (10:10→21:52)
[2018-06-07] MEDS: METOPROLOL SUCCINATE 50 MG TAB.SR.24H PO SCH (10:10)
[2018-06-07] MEDS: PREDNISONE 20 MG TABLET PO SCH ×2 (10:10→17:28)
[2018-06-07] MEDS: ASPIRIN 81 MG TABLET, CHEWABLE PO SCH (10:11)
[2018-06-07] MEDS: DOCUSATE SODIUM 100 MG CAPSULE PO SCH ×2 (10:11→17:28)
[2018-06-07] MEDS: TIOTROPIUM BROMIDE DPI 5 CAP/KIT (18 MCG/CAP) IH SCH (10:11)
[2018-06-07] MEDS: DULOXETINE HCL 30 MG CAPSULE.DR PO SCH (10:11)
[2018-06-07] MEDS: FLUTICASONE/SALMETEROL DISKUS 500-50 MCG/DOSE IH SCH ×2 (10:11→21:52)
[2018-06-07] MEDS: NORMAL SALINE 10 ML SDV (SCHEDULED) IV SCH ×2 (10:12→21:54)
[2018-06-07] MEDS: INSULIN DETEMIR 100 UNIT/ML 3 ML PEN SUBCUT SCH (10:13)
[2018-06-07] MEDS: POLYETHYLENE GLYCOL 3350 POWDER 17 GM/1 PACKET PO SCH (10:13)
[2018-06-07] MEDS: IPRATROPIUM/ALBUTEROL 0.5-2.5 MG/3 ML AMPUL NEB PRN ×2 (14:22→19:39)
[2018-06-07] MEDS: FUROSEMIDE 40 MG TABLET PO SCH ×2 (14:37→17:28)
[2018-06-07] MEDS: PHENAZOPYRIDINE HCL 200 MG TABLET PO PRN (14:41)
[2018-06-07] MEDS: VANCOMYCIN HCL 1,250 MG in DEXTROSE 5%-WATER 250 ML IV SCH (15:40)
[2018-06-07 16:14] LABS: VANCOMYCIN,TROUGH 11.7 ug/mL (5.0-20.0)
--- NOTE | 2018-06-07 16:38 | PDOC PROGRESS REPORT ---
Subjective Progress Note for:: 06/07/18 Subjective:: Ms. Fernandez is a 72 year old female with a past medical history of atrial fibrillation, chronic diastolic heart failure, insulin dependent diabetes mellitus, CAD, history of DVT and PE, hyperlipidemia, hypertension, asthma, COPD , on indwelling Barton cath from hypotonic bladder recurrent UTI and history of UTI with ESBL who was brought in because of increasing weakness, cough, SOB and possible blocked Barton catheter from the [place] [facility]. She was admitted for COPD exacerbation and UTI. Patient reports that she has been has been a moderately productive cough and progressive shortness of breath in the past 3-4 days. She says is also been having increasing weakness. She says that they are having issues with her Barton cath and at the [place] [facility] and that it has not been draining well and she feels that her urinary bladder is getting distended. She says that there has been increasing sediments on the Barton cath. Cath was changed in the ER with good flow. No acute event overnight. Patient says continues to feel better today. No fever or chills. Denies chest pain, dizziness, nausea or vomiting. Patient is growing ESBL on her blood and she has been started on meropenem. Called by lab this afternoon that patient's urine culture is growing VRE. Reason For Visit: UTI,LACTIC ACIDOSIS Physical Exam Vital Signs: Temp Pulse Resp BP Pulse Ox 98.2 F 78 16 144/70 H 98 06/07/18 11:26 06/07/18 14:22 06/07/18 14:22 06/07/18 11:26 06/07/18 14:22 Intake & Output 06/06/18 06/07/18 06/08/18 06:59 06:59 06:59 Intake Total 2614 2921 800 Output Total 1350 500 Balance 1264 2421 800 Weight 199 lb 11.821 oz 199 lb 11.821 oz General appearance: PRESENT: no acute distress, well-developed, well-nourished Head exam: PRESENT: atraumatic, normocephalic Eye exam: PRESENT: conjunctiva pink, EOMI, PERRLA. ABSENT: scleral icterus Ear exam: PRESENT: normal external ear exam Mouth exam: PRESENT: moist, tongue midline Neck exam: ABSENT: carotid bruit, JVD, lymphadenopathy, thyromegaly Respiratory exam: PRESENT: rhonchi - Occasional rhonchi in the bases. ABSENT: rales, wheezes Cardiovascular exam: PRESENT: RRR. ABSENT: diastolic murmur, rubs, systolic murmur Pulses: PRESENT: normal dorsalis pedis pul GI/Abdominal exam: PRESENT: normal bowel sounds, soft. ABSENT: distended, guarding, mass, organolmegaly, rebound, tenderness Rectal exam: PRESENT: deferred Neurological exam: PRESENT: alert, awake, oriented to person, oriented to place , oriented to time, oriented to situation, CN II-XII grossly intact. ABSENT: motor sensory deficit Results Laboratory Results: 06/05/18 13:10 Impressions: Chest X-Ray 06/03/18 05:54 IMPRESSION: Cardiomegaly without definite pneumonia. Guidance Fluoroscopy 06/06/18 00:00 IMPRESSION: SUCCESSFUL PLACEMENT OF A 5 FR DUAL LUMEN 41 CM PICC IN THE RIGHT BASILIC VEIN. Interventional Vascular Procedure 06/06/18 00:00 IMPRESSION: SUCCESSFUL PLACEMENT OF A 5 FR DUAL LUMEN 41 CM PICC IN THE RIGHT BASILIC VEIN. PICC Line Insertion 06/06/18 00:00 IMPRESSION: SUCCESSFUL PLACEMENT OF A 5 FR DUAL LUMEN 41 CM PICC IN THE RIGHT BASILIC VEIN. Assessment & Plan - Diagnosis (1) Sepsis Is this a current diagnosis for this admission?: Yes Plan: Likely secondary to pyelonephritis. Patient did present with tachycardia, significant leukocytosis, lactic acidosis and increased creatinine. Patient did present with tachycardia, significant leukocytosis, lactic acidosis and increased creatinine. Blood culture E. coli ESBL 1/2 bottle far and the other bottle grew staph hominis possibly a contaminant. Called by lab, urine culture is growing VRE. Switch vancomycin to daptomycin. Continue meropenem for ESBL. We will rediscuss with ID again regarding antibiotic recommendations and duration of treatment. (2) UTI (urinary tract infection) due to urinary indwelling Barton catheter Qualifiers: Indwelling urinary catheter type: indwelling urethral catheter Encounter type: initial encounter Qualified Code(s): T83.511A - Infection and inflammatory reaction due to indwelling urethral catheter, initial encounter; N39.0 - Urinary tract infection, site not specified; N39.0 - Urinary tract infection, site not specified Is this a current diagnosis for this admission?: Yes Plan: Patient's urinalysis is consistent with urinary tract infection. She does have a history of multiple UTIs and had an ESBL UTI earlier this year. Appreciate ID recommendation. Blood culture E. coli ESBL 1/2 bottle far and the other bottle growing gram positive cocci. Urine culture is growing gram negative rods. Appreciate ID recommendation. Continue meropenem. Continue vancomycin. Discussed with patient option to do intermittent catheterization instead to reduce the risk of her getting recurrent urinary tract infections. She is resistant to this idea and prefers to have the indwelling Barton cath. She says she will discuss this with her urologist on outpatient follow-up with them. (3) COPD exacerbation Is this a current diagnosis for this admission?: Yes Plan: Resolved. Continue low-dose steroids. Breathing treatments with DuoNeb. (4) ARF (acute renal failure) Qualifiers: Acute renal failure type: unspecified Qualified Code(s): N17.9 - Acute kidney failure, unspecified Is this a current diagnosis for this admission?: Yes Plan: Resolved. (5) Acute on chronic renal failure Qualifiers: Acute renal failure type: unspecified Chronic kidney disease stage: stage 3 (moderate) Qualified Code(s): N17.9 - Acute kidney failure, unspecified; N18.3 - Chronic kidney disease, stage 3 (moderate); N18.3 - Chronic kidney disease, stage 3 (moderate); N18.3 - Chronic kidney disease, stage 3 (moderate) Is this a current diagnosis for this admission?: Yes Plan: Resolved. Continue IV fluids. (6) Lactic acidosis Is this a current diagnosis for this admission?: Yes Plan: Resolved with IV fluids. (7) Opiate dependence Is this a current diagnosis for this admission?: Yes Plan: Discussed with patient about risk of being on long-term opiates. She says she does follow up with a pain clinic and they have been continuing her home opiate regimen. Encouraged patient to discuss with the pain clinic on ff-up other alternative options to try to wean her off some of her opiates. - Time Time Spent with patient: 25-34 minutes
[2018-06-07] MEDS: DAPTOMYCIN 600 MG in NORMAL SALINE 50 ML IV SCH (17:29)
[2018-06-07] MEDS: INSULIN LISPRO 100 UNIT/ML 3 ML VIAL SUBCUT PRN ×2 (17:30→21:54)
[2018-06-07] MEDS: MELATONIN 5 MG TABLET PO SCH (21:53)
[2018-06-07] MEDS: MAGNESIUM HYDROXIDE SUSP 30 ML UDCUP PO PRN (22:03)
[2018-06-08] MEDS: LEVALBUTEROL HCL NEB 0.63 MG/3 ML AMPUL NEB SCH ×4 (00:36→19:42)
[2018-06-08] MEDS: IPRATROPIUM/ALBUTEROL 0.5-2.5 MG/3 ML AMPUL NEB PRN (02:38)
[2018-06-08] MEDS: ACETYLCYSTEINE 10% NEB 400 MG/4 ML VIAL NEB SCH ×4 (02:38→19:42)
[2018-06-08] MEDS: OXYCODONE HCL IR 5 MG TABLET PO PRN ×3 (05:10→22:30)
[2018-06-08] MEDS: CIPROFLOXACIN HCL 0.3% OPH SOLN 2.5 ML OU SCH ×4 (05:10→18:00)
[2018-06-08] MEDS: PHENAZOPYRIDINE HCL 200 MG TABLET PO PRN (05:11)
[2018-06-08] MEDS: MEROPENEM 1 GM in NORMAL SALINE 50 ML IV SCH ×3 (05:11→22:31)
[2018-06-08] MEDS: PREGABALIN 75 MG CAPSULE PO SCH ×3 (05:11→22:31)
[2018-06-08] MEDS: LANSOPRAZOLE 15 MG TAB.RAP.DR PO SCH (05:11)
--- NOTE | 2018-06-08 08:38 | RADIOLOGY REPORT (SQ) ---
EXAM DESCRIPTION: CHEST SINGLE VIEW COMPLETED DATE/TIME: 06/08/2018 7:42 am REASON FOR STUDY: assess for congestion COMPARISON: 06/06/2018 EXAM PARAMETERS: NUMBER OF VIEWS: One view. TECHNIQUE: Single frontal radiographic view of the chest acquired. RADIATION DOSE: NA LIMITATIONS: None. FINDINGS: LUNGS AND PLEURA: Unchanged scar atelectasis of the left midlung and lung base. MEDIASTINUM AND HILAR STRUCTURES: No masses. Contour normal. HEART AND VASCULAR STRUCTURES: Unchanged cardiomegaly. 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 HARDWARE: None in the chest. OTHER: Right upper extremity PICC, tip positioned near the superior cavoatrial junction. IMPRESSION: Cardiomegaly without acute abnormality of the lungs. Unchanged scarring or atelectasis of the left midlung and lung base. No evidence of significant pulmonary edema. TECHNICAL DOCUMENTATION: JOB ID: [id number] [employer]- All Rights Reserved Reading location - IP/workstation name: [email or web address]
[2018-06-08] MEDS: FLUTICASONE/SALMETEROL DISKUS 500-50 MCG/DOSE IH SCH ×2 (11:19→22:32)
[2018-06-08] MEDS: DOCUSATE SODIUM 100 MG CAPSULE PO SCH ×2 (11:20→18:01)
[2018-06-08] MEDS: BUSPIRONE HCL 10 MG TABLET PO SCH ×2 (11:20→22:30)
[2018-06-08] MEDS: ASPIRIN 81 MG TABLET, CHEWABLE PO SCH (11:20)
[2018-06-08] MEDS: BENZONATATE 100 MG CAPSULE PO PRN ×2 (11:21→22:31)
[2018-06-08] MEDS: DULOXETINE HCL 30 MG CAPSULE.DR PO SCH (11:21)
[2018-06-08] MEDS: PREDNISONE 20 MG TABLET PO SCH ×2 (11:21→18:01)
[2018-06-08] MEDS: FUROSEMIDE 40 MG TABLET PO SCH ×2 (11:22→18:01)
[2018-06-08] MEDS: HEPARIN SOD (PORCINE) 5,000 UNIT/ML 1 ML SYRINGE SUBCUT SCH ×2 (11:23→22:29)
[2018-06-08] MEDS: NORMAL SALINE 10 ML SDV (SCHEDULED) IV SCH ×2 (11:24→22:32)
[2018-06-08] MEDS: METOPROLOL SUCCINATE 50 MG TAB.SR.24H PO SCH (11:24)
[2018-06-08] MEDS: ACETAMINOPHEN 325 MG TABLET PO PRN (11:27)
[2018-06-08] MEDS: INSULIN DETEMIR 100 UNIT/ML 3 ML PEN SUBCUT SCH (11:28)
[2018-06-08] MEDS: POLYETHYLENE GLYCOL 3350 POWDER 17 GM/1 PACKET PO SCH (11:29)
--- NOTE | 2018-06-08 13:13 | PDOC PROGRESS REPORT ---
Subjective Progress Note for:: 06/08/18 Subjective:: Ms. Fernandez is a 72 year old female with a past medical history of atrial fibrillation, chronic diastolic heart failure, insulin dependent diabetes mellitus, CAD, history of DVT and PE, hyperlipidemia, hypertension, asthma, COPD , on indwelling Barton cath from hypotonic bladder recurrent UTI and history of UTI with ESBL who was brought in because of increasing weakness, cough, SOB and possible blocked Barton [facility]. She was admitted for COPD exacerbation and UTI. Patient reports that she has been has been a moderately productive cough and progressive shortness of breath in the past 3-4 days. She says is also been having increasing weakness. She says that they are having issues with her Barton cath and at the prison and that it has not been draining well and she feels that her urinary bladder is getting distended. She says that there has been increasing sediments on the Barton cath. Cath was changed in the ER with good flow. Patient grew ESBL on her blood and she has been started on meropenem. Urine culture grew VRE. No acute event overnight. Patient says she continues to feel better today. No fever or chills. Denies chest pain, dizziness, nausea or vomiting. Reason For Visit: UTI,LACTIC ACIDOSIS Physical Exam Vital Signs: Temp Pulse Resp BP Pulse Ox 98.5 F 69 16 154/88 H 99 06/08/18 07:43 06/08/18 07:51 06/08/18 07:51 06/08/18 07:43 06/08/18 07:51 Intake & Output 06/07/18 06/08/18 06/09/18 06:59 06:59 06:59 Intake Total 2921 2460 Output Total 500 1900 Balance 2421 560 Weight 199 lb 11.821 oz 198 lb 13.711 oz General appearance: PRESENT: no acute distress, well-developed, well-nourished Head exam: PRESENT: atraumatic, normocephalic Eye exam: PRESENT: conjunctiva pink, EOMI, PERRLA. ABSENT: scleral icterus Ear exam: PRESENT: normal external ear exam Mouth exam: PRESENT: moist, tongue midline Neck exam: ABSENT: carotid bruit, JVD, lymphadenopathy, thyromegaly Respiratory exam: PRESENT: clear to auscultation elia. ABSENT: rales, rhonchi, wheezes Cardiovascular exam: PRESENT: RRR. ABSENT: diastolic murmur, rubs, systolic murmur Pulses: PRESENT: normal dorsalis pedis pul Rectal exam: PRESENT: deferred Neurological exam: PRESENT: alert, awake, oriented to person, oriented to place , oriented to time, oriented to situation, CN II-XII grossly intact. ABSENT: motor sensory deficit Results Laboratory Results: 06/05/18 13:10 06/07/18 15:34 06/07/18 15:34 Creatinine 0.93 Est GFR ( Amer) > 60 Est GFR (Non-Af Amer) 59 L 06/04/18 22:10 Barton Catheter Urine Culture - Final Klebsiella Pneumoniae Impressions: Guidance Fluoroscopy 06/06/18 00:00 IMPRESSION: SUCCESSFUL PLACEMENT OF A 5 FR DUAL LUMEN 41 CM PICC IN THE RIGHT BASILIC VEIN. Interventional Vascular Procedure 06/06/18 00:00 IMPRESSION: SUCCESSFUL PLACEMENT OF A 5 FR DUAL LUMEN 41 CM PICC IN THE RIGHT BASILIC VEIN. PICC Line Insertion 06/06/18 00:00 IMPRESSION: SUCCESSFUL PLACEMENT OF A 5 FR DUAL LUMEN 41 CM PICC IN THE RIGHT BASILIC VEIN. Chest X-Ray 06/08/18 06:00 IMPRESSION: Cardiomegaly without acute abnormality of the lungs. Unchanged scarring or atelectasis of the left midlung and lung base. No evidence of significant pulmonary edema. Assessment & Plan - Diagnosis (1) Sepsis Is this a current diagnosis for this admission?: Yes Plan: Likely secondary to pyelonephritis. Patient did present with tachycardia, significant leukocytosis, lactic acidosis and increased creatinine. Patient did present with tachycardia, significant leukocytosis, lactic acidosis and increased creatinine. Blood culture E. coli ESBL 1/2 bottle far and the other bottle grew staph hominis possibly a contaminant. Urine culture grew VRE. Switched vancomycin to daptomycin. Continue meropenem for ESBL. Await rediscussing with ID regarding antibiotic recommendations and duration of treatment. (2) UTI (urinary tract infection) due to urinary indwelling Barton catheter Qualifiers: Indwelling urinary catheter type: indwelling urethral catheter Encounter type: initial encounter Qualified Code(s): T83.511A - Infection and inflammatory reaction due to indwelling urethral catheter, initial encounter; N39.0 - Urinary tract infection, site not specified; N39.0 - Urinary tract infection, site not specified Is this a current diagnosis for this admission?: Yes Plan: Patient's urinalysis is consistent with urinary tract infection. She does have a history of multiple UTIs and had an ESBL UTI earlier this year. Appreciate ID recommendation. Blood culture E. coli ESBL 1/2 bottle far and the other bottle grew staph hominis possibly a contaminant. Called by microbiology lab today that urine culture is growing VRE. Switched vancomycin to daptomycin. Continue meropenem for ESBL. We will rediscuss with ID again regarding antibiotic recommendations and duration of treatment. Discussed with patient option to do intermittent catheterization instead to reduce the risk of her getting recurrent urinary tract infections. She is resistant to this idea and prefers to have the indwelling Barton cath. She says she will discuss this with her urologist on outpatient follow-up with them. Upon further questioning, patient says that she developed acute urinary retention before but was not clear what caused the urinary retention. She is not sure if a urodynamic study has been done before. Explained to patient that she has been on chronic opiates and opiates definitely can cause urinary retention. She says she will also discuss this with her urologist and find ways to try to be taken off the Barton cath. Explained to patient that gradually being weaned of her multiple opiates may possibly benefit in trying to get her off the Barton cath. As mentioned she says she will also discussed with her pain clinic providers about other alternative options of treatment for her chronic pains. (3) COPD exacerbation Is this a current diagnosis for this admission?: Yes Plan: Resolved. Continue low-dose steroids. Breathing treatments with DuoNeb. (4) ARF (acute renal failure) Qualifiers: Acute renal failure type: unspecified Qualified Code(s): N17.9 - Acute kidney failure, unspecified Is this a current diagnosis for this admission?: Yes Plan: Resolved. (5) Acute on chronic renal failure Qualifiers: Acute renal failure type: unspecified Chronic kidney disease stage: stage 3 (moderate) Qualified Code(s): N17.9 - Acute kidney failure, unspecified; N18.3 - Chronic kidney disease, stage 3 (moderate); N18.3 - Chronic kidney disease, stage 3 (moderate); N18.3 - Chronic kidney disease, stage 3 (moderate) Is this a current diagnosis for this admission?: Yes Plan: Resolved. (6) Lactic acidosis Is this a current diagnosis for this admission?: Yes Plan: Resolved with IV fluids. (7) Opiate dependence Is this a current diagnosis for this admission?: Yes Plan: Discussed with patient about risk of being on long-term opiates. She says she does follow up with a pain clinic and they have been continuing her home opiate regimen. Encouraged patient to discuss with the pain clinic on ff-up other alternative options to try to wean her off some of her opiates. - Time Time Spent with patient: 25-34 minutes
[2018-06-08] MEDS: TIOTROPIUM BROMIDE DPI 5 CAP/KIT (18 MCG/CAP) IH SCH (13:16)
[2018-06-08] MEDS: INSULIN LISPRO 100 UNIT/ML 3 ML VIAL SUBCUT PRN ×3 (13:23→22:28)
[2018-06-08] MEDS: BACLOFEN 10 MG TABLET PO PRN (13:42)
[2018-06-08] MEDS: DAPTOMYCIN 600 MG in NORMAL SALINE 50 ML IV SCH (18:01)
[2018-06-08] MEDS: MELATONIN 5 MG TABLET PO SCH (22:30)
[2018-06-09] MEDS: LEVALBUTEROL HCL NEB 0.63 MG/3 ML AMPUL NEB SCH ×4 (01:39→20:29)
[2018-06-09] MEDS: ACETYLCYSTEINE 10% NEB 400 MG/4 ML VIAL NEB SCH ×4 (01:39→20:30)
[2018-06-09] MEDS: CIPROFLOXACIN HCL 0.3% OPH SOLN 2.5 ML OU SCH ×4 (05:44→17:06)
[2018-06-09] MEDS: LANSOPRAZOLE 15 MG TAB.RAP.DR PO SCH (05:45)
[2018-06-09] MEDS: MEROPENEM 1 GM in NORMAL SALINE 50 ML IV SCH ×3 (05:45→23:29)
[2018-06-09] MEDS: PREGABALIN 75 MG CAPSULE PO SCH ×3 (05:45→23:24)
[2018-06-09] MEDS: BACLOFEN 10 MG TABLET PO PRN ×3 (05:47→23:21)
[2018-06-09] MEDS: OXYCODONE HCL IR 5 MG TABLET PO PRN ×3 (05:48→23:23)
[2018-06-09 06:33] LABS: HEMATOCRIT 28.9 % (36.0-47.0); HEMOGLOBIN 9.7 g/dL (12.0-15.5); MEAN CORPUSCULAR HEMOGLOBIN 29.8 pg (27.0-33.4); MEAN CORPUSCULAR HGB CONC 33.5 g/dL (32.0-36.0); MEAN CORPUSCULAR VOLUME 89 fl (80-97); PLATELET COUNT 214 10^3/uL (150-450); RED BLOOD COUNT 3.25 10^6/uL (3.72-5.28); RED CELL DISTRIBUTION WIDTH 14.8 % (11.5-14.0); WHITE BLOOD COUNT 10.3 10^3/uL (4.0-10.5)
[2018-06-09 06:41] LABS: ANION GAP 11 (5-19); BLOOD UREA NITROGEN 27 mg/dL (7-20); CALCIUM 9.2 mg/dL (8.4-10.2); CARBON DIOXIDE 33 mmol/L (22-30); CHLORIDE 98 mmol/L (98-107); GLUCOSE 143 mg/dL (75-110); POTASSIUM 4.2 mmol/L (3.6-5.0); SODIUM 142.1 mmol/L (137-145)
[2018-06-09 07:09] LABS: ABSOLUTE LYMPHOCYTES# (MANUAL) 1.8 10^3/uL (0.5-4.7); ABSOLUTE MONOCYTES # (MANUAL) 0.7 10^3/uL (0.1-1.4); ABSOLUTE NEUTROPHILS# (MANUAL) 7.8 10^3/uL (1.7-8.2); BASOPHILS % (MANUAL) 0 % (0-2); EOSINOPHILS % (MANUAL) 0 % (0-6); LYMPHOCYTES % (MANUAL) 17 % (13-45); MONOCYTES % (MANUAL) 7 % (3-13); SEGMENTED NEUTROPHILS % (MAN) 76 % (42-78); TOTAL CELLS COUNTED 100
[2018-06-09 07:12] LABS: TOXIC GRANULATION 1+
[2018-06-09 07:13] LABS: HELMET CELLS 2+; PLATELET COMMENT ADEQUATE; POIKILOCYTOSIS 1+; POLYCHROMASIA 1+
[2018-06-09] MEDS: BUSPIRONE HCL 10 MG TABLET PO SCH ×2 (11:33→23:24)
[2018-06-09] MEDS: ASPIRIN 81 MG TABLET, CHEWABLE PO SCH (11:33)
[2018-06-09] MEDS: FLUTICASONE/SALMETEROL DISKUS 500-50 MCG/DOSE IH SCH ×2 (11:33→23:21)
[2018-06-09] MEDS: DULOXETINE HCL 30 MG CAPSULE.DR PO SCH (11:34)
[2018-06-09] MEDS: METOPROLOL SUCCINATE 50 MG TAB.SR.24H PO SCH (11:34)
[2018-06-09] MEDS: DOCUSATE SODIUM 100 MG CAPSULE PO SCH ×2 (11:34→17:06)
[2018-06-09] MEDS: FENTANYL 12 MCG/HR PATCH.TD72 TD SCH (11:35)
[2018-06-09] MEDS: PREDNISONE 20 MG TABLET PO SCH ×2 (11:35→17:06)
[2018-06-09] MEDS: FUROSEMIDE 40 MG TABLET PO SCH ×2 (11:36→17:05)
[2018-06-09] MEDS: HEPARIN SOD (PORCINE) 5,000 UNIT/ML 1 ML SYRINGE SUBCUT SCH ×2 (11:36→23:25)
[2018-06-09] MEDS: TIOTROPIUM BROMIDE DPI 5 CAP/KIT (18 MCG/CAP) IH SCH (11:37)
[2018-06-09] MEDS: INSULIN DETEMIR 100 UNIT/ML 3 ML PEN SUBCUT SCH (11:37)
[2018-06-09] MEDS: NORMAL SALINE 10 ML SDV (SCHEDULED) IV SCH ×2 (11:38→23:32)
[2018-06-09] MEDS: POLYETHYLENE GLYCOL 3350 POWDER 17 GM/1 PACKET PO SCH (11:52)
[2018-06-09] MEDS: INSULIN LISPRO 100 UNIT/ML 3 ML VIAL SUBCUT PRN ×3 (12:18→23:58)
--- NOTE | 2018-06-09 15:56 | Progress Note ---
Provider Note Provider Note: ID Consult - Follow Up Note Asked to review patient's chart by Dr Tate. Pt not seen or examined. Please see prior note for further background. Blood cultures on admission grew Staphylococcus hominis in one out of 4 blood cx from admission on 06/03. The other set grew an ESBL E coli in one bottle, which is reported susceptible to ertapenem, imipenem, meropenem, Zosyn and amikacin but resistant to Cipro and Bactrim. Pt also has a reported sulfa allergy. Repeat BCx from 06/04 showed no growth. UCx from 06/04 showed growth of Klebsiella pneumoniae 10-20k cfu, which is a multidrug resistant organism, reported to have intermediate susceptibility to gentamicin and tetracyclines but otherwise resistant to all antimicrobial agents tested. Pt has had no fever since admission, and she has reported feeling better. Pt had PICC line placed in R basilic vein on 06/06/18. She had CXR on 06/08 that showed no acute abnormality in her lungs to suggest pneumonia. Impression/Recommendations 1. Sepsis due to ESBL E coli bacteremia from a likely urinary source - Although urine culture showed a small amount of growth of multidrug resistant Klebsiella pneumoniae, this likely reflects a difference in time of antibiotic administration and when urine culture was obtained; pt has been known to be colonized with both an ESBL E coli in her urine most recently and, in the more distant past, a multidrug resistant Klebsiella pneumoniae. Treatment should be aimed at the ESBL E coli that invaded her bloodstream. Unfortunately, there is no good oral option for treatment of her E coli bacteremia based on the susceptibility results. Pt will need to continue on a carbapenem. - Recommend de-escalating from meropenem to once daily ertapenem 1 g q24h, as the anti-pseudomonal activity of meropenem is not required; if ertapenem is prohibitively expensive, continue meropenem 1g q8h at the patient's senior care. - Total duration of therapy 14 days; last day of antibiotic treatment should be 06/17/18 and PICC can be removed on 06/18/18. 2. Staphylococcus hominis pseudobacteremia or blood culture contamination - In absence of repeated isolation of the same species of coagulase negative Staph or risk factors for true coagulase negative Staph bacteremia (e.g. prosthetic valve, ICD/PPM, indwelling port/central line) and in the presence of an alternate etiology of sepsis, this blood culture result appears to be most consistent with a contaminant. - Recommend discontinuing daptomycin Charli Orozco MD [facility] Infectious Diseases pager [phone]
[2018-06-09] MEDS: BENZONATATE 100 MG CAPSULE PO PRN (17:05)
[2018-06-09] MEDS: DAPTOMYCIN 600 MG in NORMAL SALINE 50 ML IV SCH (17:08)
--- NOTE | 2018-06-09 18:14 | PDOC PROGRESS REPORT ---
Subjective Progress Note for:: 06/09/18 Subjective:: Ms. Fernandez is a 72 year old female with a past medical history of atrial fibrillation, chronic diastolic heart failure, insulin dependent diabetes mellitus, CAD, history of DVT and PE, hyperlipidemia, hypertension, asthma, COPD , on indwelling Barton cath from hypotonic bladder recurrent UTI and history of UTI with ESBL who was brought in because of increasing weakness, cough, SOB and possible blocked Barton catheter from the care home. She was admitted for COPD exacerbation and UTI. Patient reports that she has been has been a moderately productive cough and progressive shortness of breath in the past 3-4 days. She says is also been having increasing weakness. She says that they are having issues with her Barton cath and at the care home and that it has not been draining well and she feels that her urinary bladder is getting distended. She says that there has been increasing sediments on the Barton cath. Cath was changed in the ER with good flow. Patient grew ESBL on her blood and she was started on meropenem. Provider was called by microbiology lab yesterday that urine culture grew VRE hence patient was started on daptomycin but urine culture report today shows K. pneumoniae. No acute event overnight. Patient says she continues to feel better today. No fever or chills. Denies chest pain, dizziness, nausea or vomiting. Discussed with Dr. Orozco who recommended switching meropenem to ertapenem if latter is not prohibitively expensive and discontinuing daptomycin. Patient will need total of 14 days of antibiotic therapy. Reason For Visit: UTI,LACTIC ACIDOSIS Physical Exam Vital Signs: Temp Pulse Resp BP Pulse Ox 98.1 F 67 20 142/65 H 97 06/09/18 16:00 06/09/18 16:00 06/09/18 16:00 06/09/18 16:00 06/09/18 16:00 Intake & Output 06/08/18 06/09/18 06/10/18 06:59 06:59 06:59 Intake Total 2460 1748 553 Output Total 1903 7945 Balance 560 -3188 553 Weight 198 lb 13.711 oz 210 lb 15.718 oz General appearance: PRESENT: no acute distress, well-developed, well-nourished Head exam: PRESENT: atraumatic, normocephalic Eye exam: PRESENT: conjunctiva pink, EOMI, PERRLA. ABSENT: scleral icterus Ear exam: PRESENT: normal external ear exam Mouth exam: PRESENT: moist, tongue midline Neck exam: ABSENT: carotid bruit, JVD, lymphadenopathy, thyromegaly Respiratory exam: PRESENT: clear to auscultation elia. ABSENT: rales, rhonchi, wheezes Cardiovascular exam: PRESENT: RRR. ABSENT: diastolic murmur, rubs, systolic murmur Pulses: PRESENT: normal dorsalis pedis pul GI/Abdominal exam: PRESENT: normal bowel sounds, soft. ABSENT: distended, guarding, mass, organolmegaly, rebound, tenderness Rectal exam: PRESENT: deferred Neurological exam: PRESENT: alert, awake, oriented to person, oriented to place , oriented to time, oriented to situation, CN II-XII grossly intact. ABSENT: motor sensory deficit Results Laboratory Results: 06/09/18 06:00 06/09/18 06:00 06/09/18 06/09/18 06:00 06:00 WBC 10.3 RBC 3.25 L Hgb 9.7 L Hct 28.9 L MCV 89 MCH 29.8 MCHC 33.5 RDW 14.8 H Plt Count 214 Seg Neutrophils % Not Reportable Lymphocytes % Not Reportable Monocytes % Not Reportable Eosinophils % Not Reportable Basophils % Not Reportable Absolute Neutrophils Not Reportable Absolute Lymphocytes Not Reportable Absolute Monocytes Not Reportable Absolute Eosinophils Not Reportable Absolute Basophils Not Reportable Sodium 142.1 Potassium 4.2 Chloride 98 Carbon Dioxide 33 H Anion Gap 11 BUN 27 H Creatinine 1.08 Est GFR ( Amer) > 60 Est GFR (Non-Af Amer) 49 L Glucose 143 H Calcium 9.2 Impressions: Guidance Fluoroscopy 06/06/18 00:00 IMPRESSION: SUCCESSFUL PLACEMENT OF A 5 FR DUAL LUMEN 41 CM PICC IN THE RIGHT BASILIC VEIN. Interventional Vascular Procedure 06/06/18 00:00 IMPRESSION: SUCCESSFUL PLACEMENT OF A 5 FR DUAL LUMEN 41 CM PICC IN THE RIGHT BASILIC VEIN. PICC Line Insertion 06/06/18 00:00 IMPRESSION: SUCCESSFUL PLACEMENT OF A 5 FR DUAL LUMEN 41 CM PICC IN THE RIGHT BASILIC VEIN. Chest X-Ray 06/08/18 06:00 IMPRESSION: Cardiomegaly without acute abnormality of the lungs. Unchanged scarring or atelectasis of the left midlung and lung base. No evidence of significant pulmonary edema. Assessment & Plan - Diagnosis (1) Sepsis Is this a current diagnosis for this admission?: Yes Plan: Likely secondary to pyelonephritis. Patient did present with tachycardia, significant leukocytosis, lactic acidosis and increased creatinine. Patient did present with tachycardia, significant leukocytosis, lactic acidosis and increased creatinine. Blood culture E. coli ESBL 1/2 bottle far and the other bottle grew staph hominis possibly a contaminant. Discussed with Dr. Orozco who recommended switching meropenem to ertapenem and discontinuing daptomycin. Patient will need total of 14 days of antibiotic therapy. (2) UTI (urinary tract infection) due to urinary indwelling Barton catheter Qualifiers: Indwelling urinary catheter type: indwelling urethral catheter Encounter type: initial encounter Qualified Code(s): T83.511A - Infection and inflammatory reaction due to indwelling urethral catheter, initial encounter; N39.0 - Urinary tract infection, site not specified; N39.0 - Urinary tract infection, site not specified Is this a current diagnosis for this admission?: Yes Plan: Patient's urinalysis is consistent with urinary tract infection. She does have a history of multiple UTIs and had an ESBL UTI earlier this year. Appreciate ID recommendation. Blood culture E. coli ESBL 1/2 bottle and the other bottle grew Staph hominis likely a contaminant. Called by microbiology lab today 06/08/18 that urine culture is growing VRE. Switched vancomycin to daptomycin. Continue meropenem for ESBL. We will rediscuss with ID again regarding antibiotic recommendations and duration of treatment. Discussed with patient option to do intermittent catheterization instead to reduce the risk of her getting recurrent urinary tract infections. She is resistant to this idea and prefers to have the indwelling Barton cath. She says she will discuss this with her urologist on outpatient follow-up with them. Upon further questioning, patient says that she developed acute urinary retention before but was not clear what caused the urinary retention. She is not sure if a urodynamic study has been done before. Explained to patient that she has been on chronic opiates and opiates definitely can cause urinary retention. She says she will also discuss this with her urologist and find ways to try to be taken off the Barton cath. Explained to patient that gradually being weaned of her multiple opiates may possibly benefit in trying to get her off the Barton cath. As mentioned she says she will also discussed with her pain clinic providers about other alternative options of treatment for her chronic pains. (3) COPD exacerbation Is this a current diagnosis for this admission?: Yes Plan: Resolved. Continue low-dose steroids. Breathing treatments with DuoNeb. (4) ARF (acute renal failure) Qualifiers: Acute renal failure type: unspecified Qualified Code(s): N17.9 - Acute kidney failure, unspecified Is this a current diagnosis for this admission?: Yes Plan: Resolved. (5) Acute on chronic renal failure Qualifiers: Acute renal failure type: unspecified Chronic kidney disease stage: stage 3 (moderate) Qualified Code(s): N17.9 - Acute kidney failure, unspecified; N18.3 - Chronic kidney disease, stage 3 (moderate); N18.3 - Chronic kidney disease, stage 3 (moderate); N18.3 - Chronic kidney disease, stage 3 (moderate) Is this a current diagnosis for this admission?: Yes Plan: Resolved. (6) Lactic acidosis Is this a current diagnosis for this admission?: Yes Plan: Resolved with IV fluids. (7) Opiate dependence Is this a current diagnosis for this admission?: Yes Plan: Discussed with patient about risk of being on long-term opiates. She says she does follow up with a pain clinic and they have been continuing her home opiate regimen. Encouraged patient to discuss with the pain clinic on ff-up other alternative options to try to wean her off some of her opiates. - Time Time Spent with patient: 25-34 minutes
[2018-06-09] MEDS: MELATONIN 5 MG TABLET PO SCH (23:23)
[2018-06-09] MEDS: MAGNESIUM HYDROXIDE SUSP 30 ML UDCUP PO PRN (23:58)
[2018-06-10] MEDS: CIPROFLOXACIN HCL 0.3% OPH SOLN 2.5 ML OU SCH ×4 (00:01→17:13)
[2018-06-10] MEDS: PROMETHAZINE HCL 25 MG TABLET PO PRN ×2 (01:42→17:14)
[2018-06-10] MEDS: ACETYLCYSTEINE 10% NEB 400 MG/4 ML VIAL NEB SCH ×4 (02:16→20:21)
[2018-06-10] MEDS: LEVALBUTEROL HCL NEB 0.63 MG/3 ML AMPUL NEB SCH ×4 (02:16→20:21)
[2018-06-10] MEDS: MEROPENEM 1 GM in NORMAL SALINE 50 ML IV SCH ×3 (06:36→21:00)
[2018-06-10] MEDS: PREGABALIN 75 MG CAPSULE PO SCH ×3 (06:37→21:04)
[2018-06-10] MEDS: LANSOPRAZOLE 15 MG TAB.RAP.DR PO SCH (06:37)
[2018-06-10] MEDS: ACETAMINOPHEN 325 MG TABLET PO PRN ×3 (06:49→21:04)
[2018-06-10] MEDS: POLYETHYLENE GLYCOL 3350 POWDER 17 GM/1 PACKET PO SCH (10:05)
[2018-06-10] MEDS: FLUTICASONE/SALMETEROL DISKUS 500-50 MCG/DOSE IH SCH ×2 (10:07→21:01)
[2018-06-10] MEDS: BACLOFEN 10 MG TABLET PO PRN ×2 (10:08→21:05)
[2018-06-10] MEDS: DULOXETINE HCL 30 MG CAPSULE.DR PO SCH (10:09)
[2018-06-10] MEDS: OXYCODONE HCL IR 5 MG TABLET PO PRN (10:09)
[2018-06-10] MEDS: FUROSEMIDE 40 MG TABLET PO SCH ×2 (10:10→17:13)
[2018-06-10] MEDS: TIOTROPIUM BROMIDE DPI 5 CAP/KIT (18 MCG/CAP) IH SCH (10:11)
[2018-06-10] MEDS: BUSPIRONE HCL 10 MG TABLET PO SCH ×2 (10:11→21:06)
[2018-06-10] MEDS: DOCUSATE SODIUM 100 MG CAPSULE PO SCH ×2 (10:12→17:13)
[2018-06-10] MEDS: ASPIRIN 81 MG TABLET, CHEWABLE PO SCH (10:12)
[2018-06-10] MEDS: METOPROLOL SUCCINATE 50 MG TAB.SR.24H PO SCH (10:12)
[2018-06-10] MEDS: PREDNISONE 20 MG TABLET PO SCH ×2 (10:12→17:13)
[2018-06-10] MEDS: INSULIN DETEMIR 100 UNIT/ML 3 ML PEN SUBCUT SCH (10:13)
[2018-06-10] MEDS: HEPARIN SOD (PORCINE) 5,000 UNIT/ML 1 ML SYRINGE SUBCUT SCH ×2 (10:13→21:02)
[2018-06-10] MEDS: NORMAL SALINE 10 ML SDV (SCHEDULED) IV SCH ×2 (10:15→21:09)
--- NOTE | 2018-06-10 12:41 | PDOC DISCHARGE SUMMARY ---
General - Admit/Disc Date/PCP Admission Date/Primary Care Provider: 06/03/18 09:28 GILBERT CASTANEDA, Discharge Date: 06/10/18 - Discharge Diagnosis (2) Lactic acidosis Is this a current diagnosis for this admission?: Yes (3) Sepsis Is this a current diagnosis for this admission?: Yes - Additional Information Resuscitation Status: Full Code Discharge Diet: Cardiac, Diabetic Discharge Activity: Activity As Tolerated Prescriptions: Ertapenem Sodium [Invanz Inj 1 gm Vial] 1 gm IVPB DAILY 8 Days vial Home Medications: Acetaminophen [Tylenol 325 mg Tablet] 650 mg PO Q4HP PRN 09/09/17 Acetylcysteine [Mucomist 10% Neb 400 mg/4 mL Vial] 400 mg NEB RTQ6 09/09/17 Ascorbic Acid [Vitamin C 500 mg Tablet] 500 mg PO BID 09/09/17 Aspirin [Aspirin 81 mg Chewable Tablet] 81 mg PO DAILY 09/09/17 Benzocaine/Menthol [Chloraseptic Sore Throat Lozenge] 1 ru PO Q1HP PRN Benzonatate [Tessalon Perles 100 mg Capsule] 200 mg PO Q8HP PRN 09/09/17 Budesonide [Pulmicort 180 mcg Flexhaler] 2 puff IH Q12 09/09/17 Buspirone HCl [Buspar 5 mg Tablet] 5 mg PO Q12 09/09/17 Carboxymethylcellulose Sodium [Refresh Plus 0.5% Oph Soln 0.4 ml Droperette] 1 drop OU QID 09/09/17 Duloxetine HCl [Cymbalta] 90 mg PO DAILY 09/09/17 Ergocalciferol (Vitamin D2) [Drisdol 50,000 unit (1.25MG) Capsule] 50,000 unit PO [id number] 09/09/17 Ferrous Sulfate [Feosol 325 mg Tablet] 325 mg PO BID 09/09/17 Fluticasone/Salmeterol [Advair 500-50 Diskus 14 Dose/Diskus] 1 puff IH Q12 09/09 Hydralazine HCl [Apresoline 25 mg Tablet] 25 mg PO Q8 09/09/17 Insulin Lispro [Humalog Insulin (Lispro) 100 unit/mL] 0 units SQ .SLIDING SCALE 09/09/17 Ipratropium/Albuterol Sulfate [Iprat-Albut 0.5-3(2.5) mg/3 ml] 3 ml NEB [id number] 09/09/17 Lactulose [Enulose 10 gm/15 mL Oral Solution] 15 ml PO BIDP PRN 09/09/17 Levalbuterol HCl [Xopenex Neb 0.63 mg/3 ml Ampul] 0.63 mg NEB RTQ8 09/09/17 Magnesium Hydroxide [Milk of Magnesia 30 ml Udcup] 30 ml PO DAILYP PRN 09/09/17 Melatonin 10 mg PO QHS 09/09/17 Metoprolol Succinate [Toprol Xl 50 mg Tab.sr] 50 mg PO DAILY 09/09/17 Nitroglycerin [Nitrostat] 0.4 mg SL Q5MP PRN 09/09/17 Omeprazole 20 mg PO Q6AM 09/09/17 Polyethylene Glycol 3350 [Miralax Powder 17 gm/Packet] 17 gm PO DAILY 09/09/17 Pregabalin [Lyrica 75 mg Capsule] 75 mg PO Q8 09/09/17 Ranitidine HCl [Zantac 150 mg Tablet] 150 mg PO BID 09/09/17 Ranolazine [Ranexa 500 mg Tab.sr] 500 mg PO Q12 09/09/17 Roflumilast [Daliresp 500 mcg Tablet] 500 mcg PO DAILY 09/09/17 Sennosides/Docusate 8.6-50 mg [Senna Plus Tablet] 1 tab PO QHS 09/09/17 Tamsulosin HCl [Flomax 0.4 mg Cap.sr] 0.4 mg PO DAILY 09/09/17 Tiotropium Lisle [Spiriva Handihaler 5 Cap/Kit (18 Mcg/Cap)] 1 cap IH DAILY Diltiazem HCl [Cardizem 60 mg Tablet] 60 mg PO Q8 tablet 09/16/17 Docusate Sodium [Colace 100 mg Capsule] 100 mg PO BID capsule 09/16/17 Cetirizine HCl [Zyrtec 10 mg Tablet] 10 mg PO DAILY 04/08/18 Guaifenesin [Mucinex] 600 mg PO Q12 04/08/18 Fentanyl [Duragesic 25 mcg/hr Transdermal Patch] 1 each TD Q3D #3 patch.[id number] Insulin Detemir [Levemir Flextouch] 32 units SQ DAILY #1 insuln.pen 04/13/18 Baclofen 5 mg PO Q8HP PRN 06/03/18 Linaclotide [Linzess 145 Mcg Capsule] 145 mcg PO [id number] 06/03/18 Mag Hydrox/Al Hydrox/Simeth [Maalox Plus Susp 30 Udcup] 30 ml PO Q6HP PRN Oxycodone HCl [Oxy-Ir 5 mg Tablet] 10 mg PO Q8HP PRN 06/03/18 Phenazopyridine HCl [Pyridium] 200 mg PO DAILYP PRN 06/03/18 Potassium Chloride [K-Tab ER] 40 meq PO DAILY 06/03/18 Promethazine HCl [Phenergan 25 mg Tablet] 12.5 mg PO Q4HP PRN 06/03/18 Furosemide [Lasix 40 mg Tablet] 40 mg PO BID 06/06/18 Ertapenem Sodium [Invanz Inj 1 gm Vial] 1 gm IVPB DAILY 8 Days vial 06/10/18 History of Present Illness History of Present Illness: PORSHA WALDRON is a 73 year old female with a past medical history of atrial fibrillation, chronic diastolic heart failure, insulin dependent diabetes mellitus, CAD, history of DVT and PE, hyperlipidemia, hypertension, asthma, COPD , on indwelling Barton catheter and history of recurrent UTIs with prior ESBL who was brought in because of increasing weakness and possible blocked Barton catheter. On encounter, patient reports that she has been has been a moderately productive cough and progressive shortness of breath in the past 3-4 days. She says is also been having increasing weakness. She says that they are having issues with her Barton cath and at the senior living and that it has not been draining well and she feels that her urinary bladder is getting distended. She says that there has been increasing sediments on the Barton cath. Hospital Course Hospital Course: Sepsis Likely secondary to UTI. Patient did present with tachycardia, significant leukocytosis, lactic acidosis and increased creatinine. Patient did present with tachycardia, significant leukocytosis, lactic acidosis and increased creatinine. Blood culture E. coli ESBL 1/2 bottle far and the other bottle grew staph hominis possibly a contaminant. Dr. Orozco recommended switching meropenem to ertapenem and discontinuing daptomycin. Patient will need total of 14 days of antibiotic therapy. UTI (urinary tract infection) due to urinary indwelling Barton catheter Patient's urinalysis is consistent with urinary tract infection. She does have a history of multiple UTIs and had an ESBL UTI earlier this year. Appreciate ID recommendation. COPD exacerbation Resolved. Continue Breathing treatments with DuoNeb. Acute on chronic renal failure Resolved. Lactic acidosis Resolved with IV fluids. Opiate dependence she does follow up with a pain clinic and they have been continuing her home opiate regimen. Physical Exam Vital Signs: Temp Pulse Resp BP Pulse Ox 98.6 F 53 L 22 H 133/58 H 97 06/10/18 11:11 06/10/18 11:11 06/10/18 11:11 06/10/18 11:11 06/10/18 11:11 Intake & Output 06/09/18 06/10/18 06/11/18 06:59 06:59 06:59 Intake Total 1748 1575 50 Output Total 5275 4400 Balance -2467 -7873 50 Weight 210 lb 15.718 oz 206 lb 5.643 oz General appearance: PRESENT: no acute distress, cooperative Head exam: PRESENT: atraumatic, normocephalic Eye exam: PRESENT: EOMI. ABSENT: conjunctival injection Ear exam: ABSENT: bleeding, drainage Mouth exam: PRESENT: neck supple Neck exam: ABSENT: meningismus Respiratory exam: ABSENT: accessory muscle use, crackles, wheezes Cardiovascular exam: PRESENT: RRR Pulses: PRESENT: normal carotid pulses GI/Abdominal exam: PRESENT: soft. ABSENT: ascites, tenderness Rectal exam: PRESENT: deferred Neurological exam: PRESENT: alert, altered, awake, oriented to person, oriented to place, oriented to time, oriented to situation Results Laboratory Results: 06/09/18 06:00 06/09/18 06:00 06/04/18 22:10 Barton Catheter Urine Culture - Final *Cre*Klebsiella Pneumoniae 06/04/18 18:19 Blood Blood Culture - Final NO GROWTH IN 5 DAYS 06/04/18 18:00 Blood Blood Culture - Final NO GROWTH IN 5 DAYS Impressions: Guidance Fluoroscopy 06/06/18 00:00 IMPRESSION: SUCCESSFUL PLACEMENT OF A 5 FR DUAL LUMEN 41 CM PICC IN THE RIGHT BASILIC VEIN. Interventional Vascular Procedure 06/06/18 00:00 IMPRESSION: SUCCESSFUL PLACEMENT OF A 5 FR DUAL LUMEN 41 CM PICC IN THE RIGHT BASILIC VEIN. PICC Line Insertion 06/06/18 00:00 IMPRESSION: SUCCESSFUL PLACEMENT OF A 5 FR DUAL LUMEN 41 CM PICC IN THE RIGHT BASILIC VEIN. Chest X-Ray 06/08/18 06:00 IMPRESSION: Cardiomegaly without acute abnormality of the lungs. Unchanged scarring or atelectasis of the left midlung and lung base. No evidence of significant pulmonary edema. Qualifiers - * PATIENT BEING DISCHARGED WITH ANY OF THE FOLLOWING DIAGNOSIS: No
[2018-06-10] MEDS: INSULIN LISPRO 100 UNIT/ML 3 ML VIAL SUBCUT PRN (17:11)
[2018-06-10] MEDS: DAPTOMYCIN 600 MG in NORMAL SALINE 50 ML IV SCH (17:48)
[2018-06-10 20:24] VITALS: BP 136/65
[2018-06-10] MEDS: MELATONIN 5 MG TABLET PO SCH (21:03)
== END 2018-06-10 21:30 | DRG 872 ==
LOC: ER 05:30 → EH 09:28 → 4N 15:55
PROVIDERS: ADMIT Internal Medicine; ATTEND Internal Medicine
PROC: 02HV33Z Insertion of Infusion Device into Superior Vena Cava, Percutaneous Approach (ICD-10-PCS; principal; 2018-06-06)
PROC: B518ZZA Fluoroscopy of Superior Vena Cava, Guidance (ICD-10-PCS; 2018-06-06)
PROC: B548ZZA Ultrasonography of Superior Vena Cava, Guidance (ICD-10-PCS; 2018-06-06)
DX: A41.9 Sepsis, unspecified organism (principal); T83.511A Infection and inflammatory reaction due to indwelling urethral catheter, initial encounter; N39.0 Urinary tract infection, site not specified; N17.9 Acute kidney failure, unspecified; I50.32 Chronic diastolic (congestive) heart failure; J44.1 Chronic obstructive pulmonary disease with (acute) exacerbation; I13.0 Hypertensive heart and chronic kidney disease with heart failure and stage 1 through stage 4 chronic kidney disease, or unspecified chronic kidney disease; B96.20 Unspecified Escherichia coli [E. coli] as the cause of diseases classified elsewhere; Z99.81 Dependence on supplemental oxygen; R33.9 Retention of urine, unspecified; I48.91 Unspecified atrial fibrillation; I25.10 Atherosclerotic heart disease of native coronary artery without angina pectoris; E11.22 Type 2 diabetes mellitus with diabetic chronic kidney disease; N18.3 Chronic kidney disease, stage 3 (moderate); K21.9 Gastro-esophageal reflux disease without esophagitis; E78.00 Pure hypercholesterolemia, unspecified; M79.7 Fibromyalgia; M1A.9XX0 Chronic gout, unspecified, without tophus (tophi); F41.8 Other specified anxiety disorders; Z86.711 Personal history of pulmonary embolism; Z86.718 Personal history of other venous thrombosis and embolism; Z79.01 Long term (current) use of anticoagulants; Z74.01 Bed confinement status; Z79.4 Long term (current) use of insulin; Z79.51 Long term (current) use of inhaled steroids; Z79.52 Long term (current) use of systemic steroids; Z79.899 Other long term (current) drug therapy
CPT/HCPCS: 36415; 36569; 71045; 76937; 77001; 80048; 80053; 80202; 81001; 82550; 82553; 82565; 82962; 83036; 83605; 83880; 84484; 85025; 85610; 87040; 87077; 87086; 87088; 87186; 93005; 93010; 94640; 94660; 96361; 96365; 99285; C1758; J0878; J1642; J1644; J1815; J2185; J2543; J3370; J3490; J7030; J7040; J7060; J7512; J7614; J7620

== ENCOUNTER → 2018-06-22 | Outpatient (CLI) | payer MEDICARE, MEDICAID ==
[2018-06-22 08:16] LABS: APPEARANCE,URINE TURBID; BILIRUBIN,URINE NEGATIVE (NEGATIVE); COLOR,URINE YELLOW; GLUCOSE, URINE NEGATIVE (NEGATIVE); KETONES,URINE NEGATIVE (NEGATIVE); LEUKOCYTE ESTERASE,URINE LARGE (NEGATIVE); NITRITE,URINE NEGATIVE (NEGATIVE); PROTEIN,URINE NEGATIVE (NEGATIVE); URINE SPECIFIC GRAVITY 1.006; UROBILINOGEN,URINE NEGATIVE mg/dL (<2.0)
== END ==
LOC: LAB 07:45
PROVIDERS: ATTEND Family Medicine
DX: N39.0 Urinary tract infection, site not specified (principal)
CPT/HCPCS: 81001; 87086

== ENCOUNTER 2018-07-01 19:31 | Inpatient (IN) | payer MEDICARE, MEDICAID ==
[2018-07-01] MEDS ORDERED: ERTAPENEM SODIUM INJ 1 GM VIAL IV ONE (20:00)
[2018-07-01 20:16] LABS: ALANINE AMINOTRANSFERASE 16 U/L (9-52); ALBUMIN 3.8 g/dL (3.5-5.0); ALKALINE PHOSPHATASE 117 U/L (38-126); ASPARTATE AMINO TRANSFERASE 24 U/L (14-36); BILIRUBIN,DIRECT 0.4 mg/dL (0.0-0.4); BILIRUBIN,TOTAL 0.7 mg/dL (0.2-1.3); BLOOD UREA NITROGEN 16 mg/dL (7-20); CALCIUM 10.2 mg/dL (8.4-10.2); CHLORIDE 92 mmol/L (98-107); GLUCOSE 95 mg/dL (75-110); POTASSIUM 4.9 mmol/L (3.6-5.0); SODIUM 139.2 mmol/L (137-145); TOTAL PROTEIN 7.4 g/dL (6.3-8.2)
[2018-07-01 20:23] LABS: ANION GAP 9 (5-19); CARBON DIOXIDE 38 mmol/L (22-30)
[2018-07-01 20:29] LABS: ABSOLUTE EOSINOPHILS # (AUTO) 0.1 10^3/uL (0.0-0.6); ABSOLUTE MONOCYTES (AUTO) 0.6 10^3/uL (0.1-1.4); ABSOLUTE NEUT (AUTO) 8.7 10^3/uL (1.7-8.2); BASOPHILS % (AUTO) 0.4 % (0-2); EOSINOPHILS % (AUTO) 1.1 % (0-6); HEMATOCRIT 30.3 % (36.0-47.0); LYMPHOCYTES % (AUTO) 9.9 % (13-45); MEAN CORPUSCULAR HEMOGLOBIN 28.7 pg (27.0-33.4); MEAN CORPUSCULAR VOLUME 87 fl (80-97); MONOCYTES % (AUTO) 5.3 % (3-13); PLATELET COUNT 265 10^3/uL (150-450); RED BLOOD COUNT 3.47 10^6/uL (3.72-5.28); SEGMENTED NEUTROPHILS % (AUTO) 83.3 % (42-78); TOTAL CELLS COUNTED % (AUTO) 100 %; WHITE BLOOD COUNT 10.4 10^3/uL (4.0-10.5)
--- NOTE | 2018-07-01 20:52 | RADIOLOGY REPORT (SQ) ---
EXAM DESCRIPTION: CHEST SINGLE VIEW COMPLETED DATE/TIME: 07/01/2018 8:41 pm REASON FOR STUDY: sob COMPARISON: 06/08/2018. NUMBER OF VIEWS: One view. TECHNIQUE: Single frontal radiographic view of the chest acquired. LIMITATIONS: None. FINDINGS: LUNGS AND PLEURA: No opacities, masses or pneumothorax. No pleural effusion. MEDIASTINUM AND HILAR STRUCTURES: No masses. Contour normal. HEART AND VASCULAR STRUCTURES: Heart enlarged without failure. Normal vasculature. BONES: No acute findings. Chronic deformity in the shoulders. HARDWARE: PICC line. OTHER: No other significant finding. IMPRESSION: HEART ENLARGED WITHOUT FAILURE. NO OTHER SIGNIFICANT RADIOGRAPHIC FINDING IN THE CHEST. TECHNICAL DOCUMENTATION: JOB ID: [id number] [employer]- All Rights Reserved Reading location - IP/workstation name: [email or web address]
[2018-07-01 21:30] LABS: VENOUS BLOOD BASE EXCESS 10.3 mmol/L; VENOUS BLOOD HCO3 37.2 mmol/L (20-32); VENOUS BLOOD PCO2 62.9 mmHg (35-63); VENOUS BLOOD PH 7.39 (7.30-7.42)
[2018-07-01 22:11] LABS: APPEARANCE,URINE TURBID; BILIRUBIN,URINE NEGATIVE (NEGATIVE); GLUCOSE, URINE NEGATIVE (NEGATIVE); KETONES,URINE NEGATIVE (NEGATIVE); LEUKOCYTE ESTERASE,URINE MODERATE (NEGATIVE); NITRITE,URINE NEGATIVE (NEGATIVE); PROTEIN,URINE 100 mg/dL (NEGATIVE); URINE SPECIFIC GRAVITY 1.017; UROBILINOGEN,URINE NEGATIVE mg/dL (<2.0)
[2018-07-01 22:14] LABS: COLOR,URINE YELLOW
[2018-07-01 22:18] LABS: A TYPE INFLUENZA AG NEGATIVE (NEGATIVE); B INFLUENZA AG NEGATIVE (NEGATIVE)
[2018-07-02] MEDS ORDERED: DIPHENHYDRAMINE HCL 50 MG/ML VIAL IV ONE (00:10)
[2018-07-02] MEDS ORDERED: METOCLOPRAMIDE HCL INJ/PF 10 MG/2 ML SDV IV ONE (00:10)
--- NOTE | 2018-07-02 00:57 | ER Document Report ---
ED General - General Chief Complaint: Fever Stated Complaint: FEVER/BACK PAIN Time Seen by Provider: 07/01/18 19:54 Mode of Arrival: Medic Information source: Patient, Emergency Med Personnel, Outside Facility Records Notes: This is a 73-year-old female with a complicated medical history including atrial fibrillation, chronic CHF, insulin requiring diabetes, coronary artery disease,VTE (with filter), COPD, recurrent UTIs with prior CRE and ESBL. The patient is brought into the emergency room via EMS because of wheezing, shortness of breath, fever (temperature 102.8). Patient was treated with nebulizer and Tylenol prior to arrival. Baseline: Patient has been nonambulatory for the past 8 years. She has had a total of 4 hip surgeries and 2 knee surgeries. She normally gets around with a motorized scooter and uses a slide board to go from the bed to the scooter. TRAVEL OUTSIDE OF THE [place] IN LAST 30 DAYS: No - HPI Onset: Just prior to arrival Onset/Duration: Gradual Quality of pain: Dull Severity: Moderate Pain Level: 2 Associated symptoms: Chills, Fever, Shortness of breath, Weakness Exacerbated by: Denies Relieved by: Denies Similar symptoms previously: Yes Recently seen / treated by doctor: Yes - Related Data Allergies/Adverse Reactions: Sulfa (Sulfonamide Antibiotics) Allergy (Intermediate, Verified 02/03/18 09:37) adhesive tape Allergy (Verified 02/03/18 09:37) atorvastatin calcium [From Lipitor] Allergy (Verified 02/03/18 09:37) celecoxib [From Celebrex] Allergy (Verified 02/03/18 09:37) Past Medical History - General Information source: Patient - Social History Smoking Status: Unknown if Ever Smoked Cigarette use (# per day): No Chew tobacco use (# tins/day): No Frequency of alcohol use: None Drug Abuse: None Lives with: Assisted Family History: Reviewed & Not Pertinent, Arthritis, CAD, CVA, DM, Hyperlipidemia, Hypertension Patient has suicidal ideation: No Patient has homicidal ideation: No - Past Medical History Cardiac Medical History: Reports: Hx Atrial Fibrillation, Hx Congestive Heart Failure - Diastolic dysfunction, Hx Coronary Artery Disease, Hx DVT, Hx Heart Attack, Hx Hypercholesterolemia, Hx Hypertension - essential, Hx Pulmonary Embolism, Hx Heart Murmur Denies: Hx Peripheral Vascular Disease Pulmonary Medical History: Reports: Hx Asthma, Hx Bronchitis, Hx COPD, Hx Pneumonia - Recurrent MRSA pneumonia., Hx Respiratory Failure - Chronic, Hx Sleep Apnea - Uses C Pap Denies: Hx Tuberculosis Neurological Medical History: Denies: Hx Seizures Endocrine Medical History: Reports: Hx Diabetes Mellitus Type 2. Denies: Hx Diabetes Mellitus Type 1, Hx Hyperthyroidism, Hx Hypothyroidism Renal/ Medical History: Reports: Hx Renal Insufficiency. Denies: Hx Peritoneal Dialysis GI Medical History: Reports: Hx Gastroesophageal Reflux Disease, Hx Hiatal Hernia. Denies: Hx Cirrhosis, Hx Hepatitis Musculoskeletal Medical History: Reports Hx Arthritis, Reports Hx Fibromyalgia, Reports Hx Gout, Reports Hx Muscle Weakness Skin Medical History: Denies Hx Eczema, Denies Hx Psoriasis Psychiatric Medical History: Reports: Hx Anxiety, Hx Depression Infectious Medical History: Reports: Hx C-Diff, Hx MRSA. Denies: Hx Hepatitis Past Surgical History: Reports: Hx Appendectomy, Hx Cholecystectomy, Hx H ysterectomy, Hx Orthopedic Surgery - Multiple left hip procedures, 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 - Immunizations Hx Diphtheria, Pertussis, Tetanus Vaccination: Yes Hx Pneumococcal Vaccination: 05/20/13 Review of Systems - Review of Systems Constitutional: Chills, Fever EENT: No symptoms reported Cardiovascular: denies: Chest pain, Palpitations, Heart racing Respiratory: Cough, Wheezing Gastrointestinal: No symptoms reported. denies: Abdominal pain, Vomiting Genitourinary: No symptoms reported Female Genitourinary: No symptoms reported Musculoskeletal: See HPI Skin: No symptoms reported Hematologic/Lymphatic: No symptoms reported Neurological/Psychological: No symptoms reported Physical Exam - Vital signs Vitals: Pulse Ox 100 07/01/18 19:39 Notes: Physical exam: GENERAL: Patient is alert and oriented x3, no acute distress. HEAD: Atraumatic, normocephalic. EYES: Pupils equal round and reactive to light, extraocular movements intact, sclera anicteric, conjunctiva are normal. ENT: TMs normal, nares patent, oropharynx clear without exudates. Moist mucous membranes. NECK: Normal range of motion, supple without obvious mass or JVD. LUNGS: Breath sounds clear to auscultation bilaterally and equal. No wheezes rales or rhonchi. HEART: Regular rate and rhythm without murmurs, rubs or gallops. ABDOMEN: Soft, normoactive bowel sounds. No tenderness to palpation. No guarding, no rebound. No masses appreciated. Back: There is no lesions to the upper back. Spine is nontender to palpation EXTREMITIES: Patient has a power PICC line in the right upper extremity. There is no erythema or pus expressible from the site. There is no significant tenderness at the site. The site was cleaned with ChloraPrep and the dressing changed. NEUROLOGICAL: Cranial nerves II through XII grossly intact. Normal speech, moving all extremities. PSYCH: Normal mood, normal affect. SKIN: Patient does have erythema over the sacrum with the beginnings of a superficial decubiti. Course - Re-evaluation Re-evalutation: 07/02/18 01:08 Note: This is a patient that has had multiple UTIs and sepsis in the past with resistant organisms. She was last treated with ertapenem successfully. She did have some wheezing originally but her respiratory status is been stable. Her skin exam reveals some sacral breakdown concerning for beginning of a sacral decubitus. The power PICC site looks quite good and was redressed. CT of the abdomen shows thickened bladder wall consistent with a UTI. The plan will be to continue IV antibiotics. Patient does have a history of chronic pain and we will address that as well. - Vital Signs Vital signs: Temp Pulse Resp BP Pulse Ox 97.8 F 13 120/54 L 96 07/02/18 00:07 07/02/18 00:05 07/02/18 00:05 07/02/18 00:05 - Laboratory Result Diagrams: 07/01/18 20:02 07/01/18 19:25 Laboratory results interpreted by me: 07/01/18 07/01/18 07/01/18 19:25 20:02 20:02 RBC 3.47 L Hgb 10.0 L Hct 30.3 L RDW 16.0 H Seg Neutrophils % 83.3 H Lymphocytes % 9.9 L Absolute Neutrophils 8.7 H VBG HCO3 37.2 H Chloride 92 L Carbon Dioxide 38 H Creatinine 1.35 H Est GFR ( Amer) 46 L Est GFR (Non-Af Amer) 38 L POC Glucose Urine Protein Urine Blood Ur Leukocyte Esterase 07/01/18 07/01/18 21:29 21:30 RBC Hgb Hct RDW Seg Neutrophils % Lymphocytes % Absolute Neutrophils VBG HCO3 Chloride Carbon Dioxide Creatinine Est GFR ( Amer) Est GFR (Non-Af Amer) POC Glucose 136 H Urine Protein 100 H Urine Blood SMALL H Ur Leukocyte Esterase MODERATE H - Diagnostic Test Radiology reviewed: Image reviewed, Reports reviewed - Chest x-ray shows no obvious infiltrates Discharge - Discharge Clinical Impression: Fever, UTI Condition: Stable Disposition: ADMITTED INPATIENT Admitting Provider: Hospitalist - Dr. Mejía Unit Admitted: Telemetry Referrals: KARTHIKEYAN HERNANDEZ MD [Primary Care Provider] - Follow up as needed
--- NOTE | 2018-07-02 01:01 | RADIOLOGY REPORT (SQ) ---
CT OF THE CHEST, ABDOMEN, AND PELVIS HISTORY: Shortness of breath. Abdominal pain. COMPARISON: None. TECHNIQUE: CT scan of the chest, abdomen, and pelvis with IV contrast. This exam was performed according to our departmental dose-optimization program, which includes automated exposure control, adjustment of the mA and/or kV according to patient size and/or use of iterative reconstruction technique. FINDINGS: No mediastinal, hilar, or axillary adenopathy is seen. The heart size is normal. No pericardial effusion is seen. There is no thoracic aortic aneurysm or dissection. No consolidation, pleural effusion, or pneumothorax is identified. There are areas of atelectasis and scarring at the lung bases. The liver, spleen, pancreas, gallbladder, adrenal glands, and kidneys are unremarkable. Multiple renal cysts are seen. There is wall thickening of the urinary bladder with a Barton catheter in situ. No small bowel obstruction. The appendix is not seen. No aortic dissection or aneurysm is seen. An infrarenal IVC filter is present. There is a chronic deformity of the right proximal humerus as well as severe degenerative changes of the left glenohumeral joint. There are chronic changes of prior left total hip arthroplasty. There are mild degenerative changes of the spine. IMPRESSION: Mild wall thickening of the urinary bladder with a Barton catheter in place. Correlate with urinalysis to exclude UTI.
[2018-07-02] MEDS ORDERED: OXYCODONE HCL IR 5 MG TABLET PO ONE (01:10)
[2018-07-02] MEDS ORDERED: LACTULOSE SYRUP 20 GM/30 ML UDCUP PO PRN (01:13)
[2018-07-02] MEDS ORDERED: FENTANYL 25 MCG/HR PATCH.TD72 TD SCH (01:15)
[2018-07-02] MEDS ORDERED: DEXTROSE 50%-WATER 25 GM/50 ML DISP.SYRIN IV PRN ×4 (01:15→11:48)
[2018-07-02] MEDS ORDERED: DEXTROSE 40% GEL 15 GM TUBE PO PRN ×4 (01:15→11:48)
[2018-07-02] MEDS ORDERED: GLUCAGON,HUMAN RECOMB 1 MG INJ IM PRN ×2 (01:15→11:48)
[2018-07-02] MEDS: HYDRALAZINE HCL 25 MG TABLET PO SCH ×3 (05:54→21:55)
[2018-07-02] MEDS: DILTIAZEM HCL 60 MG TABLET PO SCH ×3 (05:54→21:54)
[2018-07-02] MEDS: HEPARIN SOD (PORCINE) 5,000 UNIT/ML 1 ML SYRINGE SUBCUT SCH ×3 (05:54→21:53)
[2018-07-02] MEDS: PREGABALIN 75 MG CAPSULE PO SCH ×3 (05:56→21:54)
[2018-07-02] MEDS: NORMAL SALINE 1000 ML 1,000 ML IV PRN ×3 (05:57→20:14)
--- NOTE | 2018-07-02 06:07 | PDOC H&P ---
History of Present Illness Admission Date/PCP: 07/02/18 01:18 JANAE JONES MD Patient complains of: Fever History of Present Illness: PORSHA WALDRON is a 73 year old female with a past medical history including chronic pain, bedbound state, atrial fibrillation, congestive heart failure, insulin dependent diabetes, coronary artery disease, deep vein thrombosis with IVC filter, COPD, C. 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 Patient presents after 3 hours of fever and diffuse pain, she is found to have pyuria and ordered a ertapenem as recommended by infectious disease consultation of May 2018. She is referred to the hospitalist for admission. Past Medical History Cardiac Medical History: Reports: Atrial Fibrillation, Congestive Heart Failure - Diastolic dysfunction, Coronary Artery Disease, DVT, Myocardial Infarction, Hyperlipidema, Hypertension - essential, Pulmonary Embolism, Heart Murmur Denies: Peripheral Vascular Disease Pulmonary Medical History: Reports: Asthma, Bronchitis, Chronic Obstructive Pulmonary Disease (COPD), Pneumonia - Recurrent MRSA pneumonia., Respiratory Failure - Chronic, Sleep Apnea - Uses C Pap Denies: Tuberculosis Neurological Medical History: Denies: Seizures Endocrine Medical History: Reports: Diabetes Mellitus Type 2 Denies: Diabetes Mellitus Type 1, Hyperthyroidism, Hypothyroidism GI Medical History: Reports: Gastroesophageal Reflux Disease, Hiatal Hernia Denies: Cirrhosis, Hepatitis Musculoskeltal Medical History: Reports: Arthritis, Fibromyalgia, Gout Skin Medical History: Denies: Eczema, Psoriasis Psychiatric Medical History: Reports: Depression Hematology: Reports: Anemia Infectious Medical History: Reports: Clostridium Difficile, Methicillin- Resistant Staph Aureus Past Surgical History Past Surgical History: Reports: Appendectomy, Cholecystectomy, Hysterectomy, Orthopedic Surgery - Multiple left hip procedures, 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 Social History Information Source: Patient, REPLACED BY [facility] Records Lives with: Custodial Smoking Status: Unknown if Ever Smoked Frequency of Alcohol Use: None Hx Recreational Drug Use: No Drugs: None Hx Prescription Drug Abuse: No - Advance Directive Resuscitation Status: Full Code Family History Family History: Reviewed & Not Pertinent, Arthritis, CAD, CVA, DM, Hyperlipidemia, Hypertension Parental Family History Reviewed: Yes Children Family History Reviewed: Yes Sibling(s) Family History Reviewed.: Yes Medication/Allergy Home Medications: Acetaminophen [Tylenol 325 mg Tablet] 650 mg PO Q4HP PRN 09/09/17 Acetylcysteine [Mucomist 10% Neb 400 mg/4 mL Vial] 400 mg NEB RTQ6 09/09/17 Ascorbic Acid [Vitamin C 500 mg Tablet] 500 mg PO BID 09/09/17 Aspirin [Aspirin 81 mg Chewable Tablet] 81 mg PO DAILY 09/09/17 Benzocaine/Menthol [Chloraseptic Sore Throat Lozenge] 1 ru PO Q1HP PRN 09/09/17 Benzonatate [Tessalon Perles 100 mg Capsule] 200 mg PO Q8HP PRN 09/09/17 Budesonide [Pulmicort 180 mcg Flexhaler] 2 puff IH Q12 09/09/17 Buspirone HCl [Buspar 5 mg Tablet] 5 mg PO Q12 09/09/17 Carboxymethylcellulose Sodium [Refresh Plus 0.5% Oph Soln 0.4 ml Droperette] 1 drop OU QID 09/09/17 Duloxetine HCl [Cymbalta] 90 mg PO DAILY 09/09/17 Ergocalciferol (Vitamin D2) [Drisdol 50,000 unit (1.25MG) Capsule] 50,000 unit PO [id number] 09/09/17 Ferrous Sulfate [Feosol 325 mg Tablet] 325 mg PO BID 09/09/17 Fluticasone/Salmeterol [Advair 500-50 Diskus 14 Dose/Diskus] 1 puff IH Q12 09/09/17 Hydralazine HCl [Apresoline 25 mg Tablet] 25 mg PO Q8 09/09/17 Insulin Lispro [Humalog Insulin (Lispro) 100 unit/mL] 0 units SQ .SLIDING SCALE 09/09/17 Ipratropium/Albuterol Sulfate [Iprat-Albut 0.5-3(2.5) mg/3 ml] 3 ml NEB [id number] 09/09/17 Lactulose [Enulose 10 gm/15 mL Oral Solution] 15 ml PO BIDP PRN 09/09/17 Levalbuterol HCl [Xopenex Neb 0.63 mg/3 ml Ampul] 0.63 mg NEB RTQ8 09/09/17 Magnesium Hydroxide [Milk of Magnesia 30 ml Udcup] 30 ml PO DAILYP PRN 09/09/17 Melatonin 10 mg PO QHS 09/09/17 Metoprolol Succinate [Toprol Xl 50 mg Tab.sr] 50 mg PO DAILY 09/09/17 Nitroglycerin [Nitrostat] 0.4 mg SL Q5MP PRN 09/09/17 Omeprazole 20 mg PO Q6AM 09/09/17 Polyethylene Glycol 3350 [Miralax Powder 17 gm/Packet] 17 gm PO DAILY 09/09/17 Pregabalin [Lyrica 75 mg Capsule] 75 mg PO Q8 09/09/17 Ranitidine HCl [Zantac 150 mg Tablet] 150 mg PO BID 09/09/17 Ranolazine [Ranexa 500 mg Tab.sr] 500 mg PO Q12 09/09/17 Roflumilast [Daliresp 500 mcg Tablet] 500 mcg PO DAILY 09/09/17 Sennosides/Docusate 8.6-50 mg [Senna Plus Tablet] 1 tab PO QHS 09/09/17 Tamsulosin HCl [Flomax 0.4 mg Cap.sr] 0.4 mg PO DAILY 09/09/17 Tiotropium [place] [Spiriva Handihaler 5 Cap/Kit (18 Mcg/Cap)] 1 cap IH DAILY 09/09/17 Diltiazem HCl [Cardizem 60 mg Tablet] 60 mg PO Q8 tablet 09/16/17 Docusate Sodium [Colace 100 mg Capsule] 100 mg PO BID capsule 09/16/17 Cetirizine HCl [Zyrtec 10 mg Tablet] 10 mg PO DAILY 04/08/18 Guaifenesin [Mucinex] 600 mg PO Q12 04/08/18 Fentanyl [Duragesic 25 mcg/hr Transdermal Patch] 1 each TD Q3D #3 patch.[id number] 04/13/18 Insulin Detemir [Levemir Flextouch] 32 units SQ DAILY #1 insuln.pen 04/13/18 Baclofen 5 mg PO Q8HP PRN 06/03/18 Linaclotide [Linzess 145 Mcg Capsule] 145 mcg PO [id number] 06/03/18 Mag Hydrox/Al Hydrox/Simeth [Maalox Plus Susp 30 Udcup] 30 ml PO Q6HP PRN 06/03/18 Oxycodone HCl [Oxy-Ir 5 mg Tablet] 10 mg PO Q8HP PRN 06/03/18 Phenazopyridine HCl [Pyridium] 200 mg PO DAILYP PRN 06/03/18 Potassium Chloride [K-Tab ER] 40 meq PO DAILY 06/03/18 Promethazine HCl [Phenergan 25 mg Tablet] 12.5 mg PO Q4HP PRN 06/03/18 Furosemide [Lasix 40 mg Tablet] 40 mg PO BID 06/06/18 Ertapenem Sodium [Invanz Inj 1 gm Vial] 1 gm IVPB DAILY 8 Days vial 06/10/18 Allergies/Adverse Reactions: Sulfa (Sulfonamide Antibiotics) Allergy (Intermediate, Verified 02/03/18 09:37) adhesive tape Allergy (Verified 02/03/18 09:37) atorvastatin calcium [From Lipitor] Allergy (Verified 02/03/18 09:37) celecoxib [From Celebrex] Allergy (Verified 02/03/18 09:37) Review of Systems Constitutional: ABSENT: chills, fever(s), headache(s), weight gain, weight loss Eyes: ABSENT: visual disturbances Ears: ABSENT: hearing changes Cardiovascular: ABSENT: chest pain, dyspnea on exertion, edema, orthropnea, palpitations Respiratory: ABSENT: cough, hemoptysis Gastrointestinal: ABSENT: abdominal pain, constipation, diarrhea, hematemesis, hematochezia, nausea, vomiting Genitourinary: ABSENT: dysuria, hematuria Musculoskeletal: ABSENT: joint swelling Integumentary: ABSENT: rash, wounds Neurological: ABSENT: abnormal gait, abnormal speech, confusion, dizziness, focal weakness, syncope Psychiatric: ABSENT: anxiety, depression, homidical ideation, suicidal ideation Endocrine: ABSENT: cold intolerance, heat intolerance, polydipsia, polyuria Hematologic/Lymphatic: ABSENT: easy bleeding, easy bruising Physical Exam Vital Signs: Temp Pulse Resp BP Pulse Ox 97.6 F 83 20 127/61 H 99 07/02/18 04:10 07/02/18 04:17 07/02/18 04:10 07/02/18 04:10 07/02/18 04:10 Intake & Output 06/30/18 07/01/18 07/02/18 11:59 11:59 11:59 Weight 86.4 kg General appearance: PRESENT: cooperative, mild distress, well-developed, well- nourished, other - Right upper extremity power PICC without erythema Head exam: PRESENT: atraumatic, normocephalic Eye exam: PRESENT: conjunctiva pink, EOMI, PERRLA. ABSENT: scleral icterus Ear exam: PRESENT: normal external ear exam Mouth exam: PRESENT: moist, tongue midline Neck exam: ABSENT: carotid bruit, JVD, lymphadenopathy, thyromegaly Respiratory exam: PRESENT: clear to auscultation elia. ABSENT: rales, rhonchi, wheezes Cardiovascular exam: PRESENT: RRR. ABSENT: diastolic murmur, rubs, systolic murmur Pulses: PRESENT: normal dorsalis pedis pul Vascular exam: PRESENT: normal capillary refill GI/Abdominal exam: PRESENT: normal bowel sounds, soft. ABSENT: distended, guarding, mass, organolmegaly, rebound, tenderness Rectal exam: PRESENT: deferred Extremities exam: PRESENT: full ROM. ABSENT: calf tenderness, clubbing, pedal edema Neurological exam: PRESENT: alert, awake, oriented to person, oriented to place, oriented to time, oriented to situation, CN II-XII grossly intact. ABSENT: motor sensory deficit Psychiatric exam: PRESENT: appropriate affect, normal mood. ABSENT: homicidal ideation, suicidal ideation Skin exam: PRESENT: dry, intact, warm, other - 2 x 2 centimeter stage II sacral decubitus. ABSENT: cyanosis, rash Results Laboratory Results: 07/01/18 20:02 07/01/18 19:25 07/01/18 07/01/18 07/01/18 19:25 19:25 20:02 WBC Cancelled 10.4 RBC Cancelled 3.47 L Hgb Cancelled 10.0 L Hct Cancelled 30.3 L MCV Cancelled 87 MCH Cancelled 28.7 MCHC Cancelled 33.0 RDW Cancelled 16.0 H Plt Count Cancelled 265 Seg Neutrophils % Cancelled 83.3 H Lymphocytes % Cancelled 9.9 L Monocytes % Cancelled 5.3 Eosinophils % Cancelled 1.1 Basophils % Cancelled 0.4 Absolute Neutrophils Cancelled 8.7 H Absolute Lymphocytes Cancelled 1.0 Absolute Monocytes Cancelled 0.6 Absolute Eosinophils Cancelled 0.1 Absolute Basophils Cancelled 0.0 VBG pH VBG pCO2 VBG HCO3 VBG Base Excess Sodium 139.2 Potassium 4.9 Chloride 92 L Carbon Dioxide 38 H Anion Gap 9 BUN 16 Creatinine 1.35 H Est GFR ( Amer) 46 L Est GFR (Non-Af Amer) 38 L Glucose 95 Lactic Acid Calcium 10.2 Total Bilirubin 0.7 AST 24 ALT 16 Alkaline Phosphatase 117 Total Protein 7.4 Albumin 3.8 Urine Color Urine Appearance Urine pH Ur Specific [place] Urine Protein Urine Glucose (UA) Urine Ketones Urine Blood Urine Nitrite Ur Leukocyte Esterase Urine WBC (Auto) Urine RBC (Auto) 07/01/18 07/01/18 07/01/18 20:02 20:02 21:30 WBC RBC Hgb Hct MCV MCH MCHC RDW Plt Count Seg Neutrophils % Lymphocytes % Monocytes % Eosinophils % Basophils % Absolute Neutrophils Absolute Lymphocytes Absolute Monocytes Absolute Eosinophils Absolute Basophils VBG pH 7.39 VBG pCO2 62.9 VBG HCO3 37.2 H VBG Base Excess 10.3 Sodium Potassium Chloride Carbon Dioxide Anion Gap BUN Creatinine Est GFR ( Amer) Est GFR (Non-Af Amer) Glucose Lactic Acid 1.2 Calcium Total Bilirubin AST ALT Alkaline Phosphatase Total Protein Albumin Urine Color YELLOW Urine Appearance TURBID Urine pH 5.0 Ur Specific [place] 1.017 Urine Protein 100 H Urine Glucose (UA) NEGATIVE Urine Ketones NEGATIVE Urine Blood SMALL H Urine Nitrite NEGATIVE Ur Leukocyte Esterase MODERATE H Urine WBC (Auto) >182 Urine RBC (Auto) 15 Impressions: Chest X-Ray 07/01/18 19:54 IMPRESSION: HEART ENLARGED WITHOUT FAILURE. NO OTHER SIGNIFICANT RADIOGRAPHIC FINDING IN THE CHEST. Chest CT 07/01/18 20:52 IMPRESSION: Mild wall thickening of the urinary bladder with a Barton catheter in place. Correlate with urinalysis to exclude UTI. Abdomen/Pelvis CT 07/01/18 20:53 IMPRESSION: Mild wall thickening of the urinary bladder with a Barton catheter in place. Correlate with urinalysis to exclude UTI. Assessment & Plan - Diagnosis (1) Urinary tract infection due to ESBL Klebsiella Is this a current diagnosis for this admission?: Yes Plan: Ertapenem initiated per infectious disease consultation 2 weeks ago, follow-up blood and urine culture, CBC (2) Acute renal failure Is this a current diagnosis for this admission?: Yes Plan: IV fluid challenge, reevaluate chemistry avoiding nephrotoxic meds and doses. (3) Anemia Qualifiers: Anemia type: iron deficiency Iron deficiency anemia type: other iron defici ency Qualified Code(s): D50.8 - Other iron deficiency anemias Is this a current diagnosis for this admission?: Yes Plan: Likely secondary to chronic disease, follow-up anemia workup - Time Time Spent: 50 to 70 Minutes - Inpatient Certification Medical Necessity: Need Close Monitoring Due to Risk of Patient Decompensation
[2018-07-02 06:53] LABS: ABSOLUTE EOSINOPHILS # (AUTO) 0.1 10^3/uL (0.0-0.6); ABSOLUTE LYMPHOCYTES (AUTO) 1.8 10^3/uL (0.5-4.7); ABSOLUTE NEUT (AUTO) 7.9 10^3/uL (1.7-8.2); ABSOLUTE RETICS # 0.116 10^6/uL (0.028-0.122); BASOPHILS % (AUTO) 0.3 % (0-2); EOSINOPHILS % (AUTO) 0.7 % (0-6); HEMATOCRIT 31.6 % (36.0-47.0); HEMOGLOBIN 10.5 g/dL (12.0-15.5); LYMPHOCYTES % (AUTO) 16.7 % (13-45); MEAN CORPUSCULAR HEMOGLOBIN 28.8 pg (27.0-33.4); MEAN CORPUSCULAR HGB CONC 33.2 g/dL (32.0-36.0); MEAN CORPUSCULAR VOLUME 87 fl (80-97); MONOCYTES % (AUTO) 9.2 % (3-13); PLATELET COUNT 256 10^3/uL (150-450); RED BLOOD COUNT 3.64 10^6/uL (3.72-5.28); RED CELL DISTRIBUTION WIDTH 16.1 % (11.5-14.0); RETICULOCYTE COUNT (AUTO) 3.18 % (0.66-2.85); SEGMENTED NEUTROPHILS % (AUTO) 73.1 % (42-78); TOTAL CELLS COUNTED % (AUTO) 100 %; WHITE BLOOD COUNT 10.8 10^3/uL (4.0-10.5)
[2018-07-02 07:07] LABS: ANION GAP 9 (5-19); BLOOD UREA NITROGEN 17 mg/dL (7-20); CALCIUM 9.6 mg/dL (8.4-10.2); CARBON DIOXIDE 33 mmol/L (22-30); CHLORIDE 97 mmol/L (98-107); GLUCOSE 103 mg/dL (75-110); IRON(TIBC) 21.1 ug/dL (37-170); POTASSIUM 4.6 mmol/L (3.6-5.0); SODIUM 138.9 mmol/L (137-145)
[2018-07-02 08:13] LABS: FOLATE 8.52 ng/mL (>2.76)
[2018-07-02] MEDS: BACLOFEN 10 MG TABLET PO PRN (11:03)
[2018-07-02] MEDS: ERTAPENEM SODIUM 1 GM in NORMAL SALINE 50 ML IV SCH (11:03)
[2018-07-02] MEDS: ACETAMINOPHEN 325 MG TABLET PO PRN ×2 (11:04→16:44)
[2018-07-02] MEDS: DULOXETINE HCL 30 MG CAPSULE.DR PO SCH (11:05)
[2018-07-02] MEDS: ASCORBIC ACID 500 MG TABLET PO SCH ×2 (11:05→17:48)
[2018-07-02] MEDS: BUSPIRONE HCL 10 MG TABLET PO SCH ×2 (11:06→21:58)
[2018-07-02] MEDS: ASPIRIN 81 MG TABLET, CHEWABLE PO SCH (11:07)
[2018-07-02] MEDS: INSULIN DETEMIR 100 UNIT/ML 3 ML PEN SUBCUT SCH (11:07)
[2018-07-02] MEDS: LEVALBUTEROL HCL NEB 0.63 MG/3 ML AMPUL NEB SCH ×2 (11:13→17:08)
[2018-07-02] MEDS ORDERED: BENZONATATE 100 MG CAPSULE PO PRN (11:43)
[2018-07-02] MEDS ORDERED: BENZOCAINE/MENTHOL SORE THROAT LOZENGE PO PRN (11:43)
[2018-07-02] MEDS ORDERED: NITROGLYCERIN 0.4 MG/TAB 25 TAB/BOTTLE SL PRN (11:43)
[2018-07-02] MEDS ORDERED: MAGNESIUM HYDROXIDE SUSP 30 ML UDCUP PO PRN (11:43)
[2018-07-02] MEDS ORDERED: MAG HYDROX/AL HYDROX/SIMETH SUSP 30 ML UDCUP PO PRN (11:43)
[2018-07-02] MEDS ORDERED: PHENAZOPYRIDINE HCL 200 MG TABLET PO PRN (11:43)
[2018-07-02] MEDS ORDERED: INSULIN REG, HUMAN 100 UNIT/ML 3 ML VIAL (PYX) SUBCUT PRN (11:48)
--- NOTE | 2018-07-02 12:06 | PDOC PROGRESS REPORT ---
Subjective Progress Note for:: 07/02/18 Subjective:: 07/02/2018-this 73-year-old female snf patient with history of atrial fibrillation congestive heart failure diabetes coronary artery disease DVT with IVC filter COPD admitted for a recurrent UTI and recent CRE Klebsiella. No acute events in the last 24 hours. Patient is afebrile. And is requesting to be on BiPAP. Reason For Visit: ESBL,UTI Physical Exam Vital Signs: Temp Pulse Resp BP Pulse Ox 97.8 F 89 18 140/59 H 96 07/02/18 07:42 07/02/18 11:13 07/02/18 11:13 07/02/18 07:42 07/02/18 11:13 Intake & Output 07/01/18 07/02/18 07/03/18 06:59 06:59 06:59 Intake Total 1000 Balance 1000 Weight 84.1 kg General appearance: PRESENT: mild distress Head exam: PRESENT: atraumatic Eye exam: PRESENT: PERRLA Mouth exam: PRESENT: moist Neck exam: ABSENT: carotid bruit, JVD, lymphadenopathy, thyromegaly Respiratory exam: PRESENT: decreased breath sounds Cardiovascular exam: PRESENT: tachycardia GI/Abdominal exam: PRESENT: other - Abdominal soft obese bowel sounds are present. Neurological exam: PRESENT: alert, awake, oriented to person, oriented to place, oriented to time, oriented to situation, CN II-XII grossly intact. ABSENT: motor sensory deficit Psychiatric exam: PRESENT: appropriate affect, normal mood. ABSENT: homicidal ideation, suicidal ideation Results Laboratory Results: 07/02/18 06:23 07/02/18 06:23 07/01/18 07/01/18 07/01/18 19:25 19:25 20:02 WBC Cancelled 10.4 RBC Cancelled 3.47 L Hgb Cancelled 10.0 L Hct Cancelled 30.3 L MCV Cancelled 87 MCH Cancelled 28.7 MCHC Cancelled 33.0 RDW Cancelled 16.0 H Plt Count Cancelled 265 Seg Neutrophils % Cancelled 83.3 H Lymphocytes % Cancelled 9.9 L Monocytes % Cancelled 5.3 Eosinophils % Cancelled 1.1 Basophils % Cancelled 0.4 Absolute Neutrophils Cancelled 8.7 H Absolute Lymphocytes Cancelled 1.0 Absolute Monocytes Cancelled 0.6 Absolute Eosinophils Cancelled 0.1 Absolute Basophils Cancelled 0.0 Retic Count (auto) Absolute Retic VBG pH VBG pCO2 VBG HCO3 VBG Base Excess Sodium 139.2 Potassium 4.9 Chloride 92 L Carbon Dioxide 38 H Anion Gap 9 BUN 16 Creatinine 1.35 H Est GFR ( Amer) 46 L Est GFR (Non-Af Amer) 38 L Glucose 95 Lactic Acid Calcium 10.2 Iron TIBC % Saturation Ferritin Total Bilirubin 0.7 AST 24 ALT 16 Alkaline Phosphatase 117 Total Protein 7.4 Albumin 3.8 Vitamin B12 Folate Urine Color Urine Appearance Urine pH Ur Specific [place] Urine Protein Urine Glucose (UA) Urine Ketones Urine Blood Urine Nitrite Ur Leukocyte Esterase Urine WBC (Auto) Urine RBC (Auto) 07/01/18 07/01/18 07/01/18 20:02 20:02 21:30 WBC RBC Hgb Hct MCV MCH MCHC RDW Plt Count Seg Neutrophils % Lymphocytes % Monocytes % Eosinophils % Basophils % Absolute Neutrophils Absolute Lymphocytes Absolute Monocytes Absolute Eosinophils Absolute Basophils Retic Count (auto) Absolute Retic VBG pH 7.39 VBG pCO2 62.9 VBG HCO3 37.2 H VBG Base Excess 10.3 Sodium Potassium Chloride Carbon Dioxide Anion Gap BUN Creatinine Est GFR ( Amer) Est GFR (Non-Af Amer) Glucose Lactic Acid 1.2 Calcium Iron TIBC % Saturation Ferritin Total Bilirubin AST ALT Alkaline Phosphatase Total Protein Albumin Vitamin B12 Folate Urine Color YELLOW Urine Appearance TURBID Urine pH 5.0 Ur Specific [place] 1.017 Urine Protein 100 H Urine Glucose (UA) NEGATIVE Urine Ketones NEGATIVE Urine Blood SMALL H Urine Nitrite NEGATIVE Ur Leukocyte Esterase MODERATE H Urine WBC (Auto) >182 Urine RBC (Auto) 15 07/02/18 07/02/18 06:23 06:23 WBC 10.8 H RBC 3.64 L Hgb 10.5 L Hct 31.6 L MCV 87 MCH 28.8 MCHC 33.2 RDW 16.1 H Plt Count 256 Seg Neutrophils % 73.1 Lymphocytes % 16.7 Monocytes % 9.2 Eosinophils % 0.7 Basophils % 0.3 Absolute Neutrophils 7.9 Absolute Lymphocytes 1.8 Absolute Monocytes 1.0 Absolute Eosinophils 0.1 Absolute Basophils 0.0 Retic Count (auto) 3.18 H Absolute Retic 0.116 VBG pH VBG pCO2 VBG HCO3 VBG Base Excess Sodium 138.9 Potassium 4.6 Chloride 97 L Carbon Dioxide 33 H Anion Gap 9 BUN 17 Creatinine 1.22 Est GFR ( Amer) 52 L Est GFR (Non-Af Amer) 43 L Glucose 103 Lactic Acid Calcium 9.6 Iron 21.1 L TIBC 198 L % Saturation 11 Ferritin 163.00 Total Bilirubin AST ALT Alkaline Phosphatase Total Protein Albumin Vitamin B12 836.0 Folate 8.52 Urine Color Urine Appearance Urine pH Ur Specific [place] Urine Protein Urine Glucose (UA) Urine Ketones Urine Blood Urine Nitrite Ur Leukocyte Esterase Urine WBC (Auto) Urine RBC (Auto) Impressions: Chest X-Ray 07/01/18 19:54 IMPRESSION: HEART ENLARGED WITHOUT FAILURE. NO OTHER SIGNIFICANT RADIOGRAPHIC FINDING IN THE CHEST. Chest CT 07/01/18 20:52 IMPRESSION: Mild wall thickening of the urinary bladder with a Barton catheter in place. Correlate with urinalysis to exclude UTI. Abdomen/Pelvis CT 07/01/18 20:53 IMPRESSION: Mild wall thickening of the urinary bladder with a Barton catheter in place. Correlate with urinalysis to exclude UTI. Assessment & Plan - Diagnosis (1) Urinary tract infection due to ESBL Klebsiella Is this a current diagnosis for this admission?: Yes Plan: 07/02/2017-patient has recurrent UTI due to ESBL. Patient is on ertapenem as per the ID recommendations. Blood cultures urine cultures are pending. Urine culture came back positive for gram-negative rods. Waiting for the sensitivity report. (2) ARF (acute renal failure) Qualifiers: Acute renal failure type: unspecified Qualified Code(s): N17.9 - Acute kidney failure, unspecified Is this a current diagnosis for this admission?: Yes Plan: Patient's baseline creatinine on 06/07/2018 is 0.93. Creatinine on admission is 1.35 today it was 1.22 acute renal insufficiency. She got a fluid challenge. I am going to check her renal panel on regular basis. - Time Time Spent with patient: 15-24 minutes Medications reviewed and adjusted accordingly: Yes Anticipated discharge: [facility]
[2018-07-02] MEDS ORDERED: ONDANSETRON HCL INJ/PF 4 MG/2 ML SDV IV PRN (12:18)
[2018-07-02] MEDS: OXYCODONE HCL IR 5 MG TABLET PO PRN ×2 (14:07→22:00)
[2018-07-02] MEDS: CARBOXYMETHYLCELLULOSE SOD 0.5% 0.4 ML DROPERETTE OU SCH ×3 (14:12→21:53)
[2018-07-02] MEDS ORDERED: (PENDING PHARMACY ID) (Budesonide [Pulmicort 180 Mcg Flexhaler] 2 PUFF) IH SCH ×2 (14:15→22:00)
[2018-07-02] MEDS: IPRATROPIUM/ALBUTEROL 0.5-2.5 MG/3 ML AMPUL NEB PRN (14:54)
[2018-07-02] MEDS: ACETYLCYSTEINE 10% NEB 400 MG/4 ML VIAL NEB SCH ×2 (14:54→21:00)
[2018-07-02] MEDS ORDERED: (PENDING PHARMACY ID) (Linaclotide 145 MCG) PO SCH (15:00)
--- NOTE | 2018-07-02 17:21 | EKG REPORT ---
SEVERITY:- ABNORMAL ECG - ECTOPIC ATRIAL TACHYCARDIA LEFT ANTERIOR FASCICULAR BLOCK LVH WITH SECONDARY REPOLARIZATION ABNORMALITY : Confirmed by: Yesenia Graham MD 02-Jul-2018 17:20:32
[2018-07-02] MEDS: DOCUSATE SODIUM 100 MG CAPSULE PO SCH (17:48)
[2018-07-02] MEDS: FERROUS SULFATE 325 MG TABLET PO SCH (17:48)
[2018-07-02] MEDS: FUROSEMIDE 40 MG TABLET PO SCH (17:48)
[2018-07-02] MEDS ORDERED: (PENDING PHARMACY ID) (Ranitidine Hcl [Zantac 150 Mg Tablet] 150 MG) PO SCH (18:00)
[2018-07-02] MEDS: MELATONIN 5 MG TABLET PO SCH (21:54)
[2018-07-02] MEDS: GUAIFENESIN 600 MG TABLET.SA PO SCH (21:55)
[2018-07-02] MEDS: FAMOTIDINE 20 MG TABLET PO SCH (21:55)
[2018-07-02] MEDS: SENNOSIDES/DOCUSATE 8.6-50 MG 1 EACH TABLET PO SCH (21:55)
[2018-07-02] MEDS: FLUTICASONE/SALMETEROL DISKUS 500-50 MCG/DOSE IH SCH (21:56)
[2018-07-02] MEDS ORDERED: (PENDING PHARMACY ID) (Melatonin [Melatonin] 10 MG) PO SCH (22:00)
[2018-07-02] MEDS ORDERED: (PENDING PHARMACY ID) (Guaifenesin [Mucinex] 600 MG) PO SCH (22:00)
[2018-07-02] MEDS: RANOLAZINE 500 MG TAB.SR.12H PO SCH (22:05)
[2018-07-03] MEDS: LEVALBUTEROL HCL NEB 0.63 MG/3 ML AMPUL NEB SCH ×3 (01:05→16:27)
[2018-07-03] MEDS: ACETYLCYSTEINE 10% NEB 400 MG/4 ML VIAL NEB SCH ×4 (01:16→19:37)
[2018-07-03] MEDS: HYDRALAZINE HCL 25 MG TABLET PO SCH ×3 (05:13→21:50)
[2018-07-03] MEDS: DILTIAZEM HCL 60 MG TABLET PO SCH ×3 (05:14→21:49)
[2018-07-03] MEDS: HEPARIN SOD (PORCINE) 5,000 UNIT/ML 1 ML SYRINGE SUBCUT SCH ×3 (05:14→21:50)
[2018-07-03] MEDS: PREGABALIN 75 MG CAPSULE PO SCH ×3 (05:15→21:49)
[2018-07-03] MEDS: PROMETHAZINE HCL 25 MG TABLET PO PRN (05:23)
[2018-07-03] MEDS ORDERED: (PENDING PHARMACY ID) (Linaclotide 145 MCG) PO SCH (08:00)
[2018-07-03] MEDS: BACLOFEN 10 MG TABLET PO PRN (08:36)
[2018-07-03] MEDS: OXYCODONE HCL IR 5 MG TABLET PO PRN (08:36)
[2018-07-03] MEDS ORDERED: METOPROLOL SUCCINATE 50 MG TAB.SR.24H PO SCH (10:00)
[2018-07-03] MEDS ORDERED: (PENDING PHARMACY ID) (Roflumilast [Daliresp 500 Mcg Tablet] 500 MCG) PO SCH (10:00)
[2018-07-03] MEDS ORDERED: (PENDING PHARMACY ID) (Potassium Chloride [K-Tab Er] 40 MEQ) PO SCH (10:00)
[2018-07-03] MEDS: INSULIN DETEMIR 100 UNIT/ML 3 ML PEN SUBCUT SCH (10:47)
[2018-07-03] MEDS: CARBOXYMETHYLCELLULOSE SOD 0.5% 0.4 ML DROPERETTE OU SCH ×4 (10:54→21:50)
[2018-07-03] MEDS: DULOXETINE HCL 30 MG CAPSULE.DR PO SCH (10:54)
[2018-07-03] MEDS: POLYETHYLENE GLYCOL 3350 POWDER 17 GM/1 PACKET PO SCH (10:54)
[2018-07-03] MEDS: ERTAPENEM SODIUM 1 GM in NORMAL SALINE 50 ML IV SCH (10:54)
[2018-07-03] MEDS: POTASSIUM CHLORIDE 10 MEQ CAPSULE.ER PO SCH (10:54)
[2018-07-03] MEDS: FUROSEMIDE 40 MG TABLET PO SCH ×2 (10:55→18:11)
[2018-07-03] MEDS: BUSPIRONE HCL 10 MG TABLET PO SCH ×2 (10:55→21:48)
[2018-07-03] MEDS: ASPIRIN 81 MG TABLET, CHEWABLE PO SCH (10:55)
[2018-07-03] MEDS: ASCORBIC ACID 500 MG TABLET PO SCH ×2 (10:55→18:11)
[2018-07-03] MEDS: ROFLUMILAST 500 MCG TABLET PO SCH (10:55)
[2018-07-03] MEDS: GUAIFENESIN 600 MG TABLET.SA PO SCH ×2 (10:56→21:48)
[2018-07-03] MEDS: FLUTICASONE/SALMETEROL DISKUS 500-50 MCG/DOSE IH SCH ×2 (10:56→21:52)
[2018-07-03] MEDS: FAMOTIDINE 20 MG TABLET PO SCH ×2 (10:56→21:50)
[2018-07-03] MEDS: RANOLAZINE 500 MG TAB.SR.12H PO SCH ×2 (10:56→21:49)
[2018-07-03] MEDS: TAMSULOSIN HCL 0.4 MG CAP.SR.24H PO SCH (10:56)
[2018-07-03] MEDS: FERROUS SULFATE 325 MG TABLET PO SCH ×2 (10:56→18:11)
[2018-07-03] MEDS: TIOTROPIUM BROMIDE DPI 5 CAP/KIT (18 MCG/CAP) IH SCH (10:56)
[2018-07-03] MEDS: DOCUSATE SODIUM 100 MG CAPSULE PO SCH ×2 (10:56→18:11)
[2018-07-03] MEDS: CETIRIZINE 10 MG TABLET PO SCH (10:57)
[2018-07-03] MEDS: FENTANYL 50 MCG/HR PATCH.TD72 TD SCH (13:42)
[2018-07-03 14:47] LABS: ABSOLUTE EOSINOPHILS # (AUTO) 0.2 10^3/uL (0.0-0.6); ABSOLUTE LYMPHOCYTES (AUTO) 1.4 10^3/uL (0.5-4.7); ABSOLUTE MONOCYTES (AUTO) 0.6 10^3/uL (0.1-1.4); ABSOLUTE NEUT (AUTO) 3.7 10^3/uL (1.7-8.2); BASOPHILS % (AUTO) 0.5 % (0-2); EOSINOPHILS % (AUTO) 2.7 % (0-6); HEMATOCRIT 26.4 % (36.0-47.0); HEMOGLOBIN 8.8 g/dL (12.0-15.5); LYMPHOCYTES % (AUTO) 24.4 % (13-45); MEAN CORPUSCULAR HEMOGLOBIN 28.9 pg (27.0-33.4); MEAN CORPUSCULAR HGB CONC 33.5 g/dL (32.0-36.0); MEAN CORPUSCULAR VOLUME 86 fl (80-97); PLATELET COUNT 222 10^3/uL (150-450); RED BLOOD COUNT 3.05 10^6/uL (3.72-5.28); RED CELL DISTRIBUTION WIDTH 15.9 % (11.5-14.0); SEGMENTED NEUTROPHILS % (AUTO) 62.4 % (42-78); TOTAL CELLS COUNTED % (AUTO) 100 %; WHITE BLOOD COUNT 5.9 10^3/uL (4.0-10.5)
[2018-07-03 14:53] LABS: ALANINE AMINOTRANSFERASE 14 U/L (9-52); ALBUMIN 2.8 g/dL (3.5-5.0); ALKALINE PHOSPHATASE 76 U/L (38-126); ANION GAP 5 (5-19); ASPARTATE AMINO TRANSFERASE 17 U/L (14-36); BILIRUBIN,DIRECT 0.3 mg/dL (0.0-0.4); BILIRUBIN,TOTAL 0.3 mg/dL (0.2-1.3); BLOOD UREA NITROGEN 12 mg/dL (7-20); CALCIUM 9.1 mg/dL (8.4-10.2); CARBON DIOXIDE 32 mmol/L (22-30); CHLORIDE 101 mmol/L (98-107); GLUCOSE 98 mg/dL (75-110); POTASSIUM 4.5 mmol/L (3.6-5.0); TOTAL PROTEIN 5.7 g/dL (6.3-8.2)
--- NOTE | 2018-07-03 15:50 | PDOC PROGRESS REPORT ---
Subjective Progress Note for:: 07/03/18 Subjective:: Ms. Sung is a very pleasant unfortunate 73 years old female patient who is a [facility] resident with multiple comorbidities brought with chief complaint of fever. At ER her initial workup revealed pyuria and later her blood culture grew gram-negative rods. She also noticed to have acute kidney injury with creatinine of 1.35 now it is 0.97. Patient is being managed with ertapenem because of her previous urine culture grew ESBL E. coli. Reason For Visit: ESBL,UTI Physical Exam Vital Signs: Temp Pulse Resp BP Pulse Ox 97.8 F 74 18 110/48 L 97 07/03/18 11:09 07/03/18 14:00 07/03/18 11:09 07/03/18 11:09 07/03/18 11:09 Intake & Output 07/02/18 07/03/18 07/04/18 06:59 06:59 06:59 Intake Total 3587 50 Output Total 900 200 Balance 2687 -150 Weight 84.1 kg 88.1 kg General appearance: PRESENT: mild distress Eye exam: PRESENT: conjunctiva pink Mouth exam: PRESENT: moist Neck exam: ABSENT: carotid bruit, JVD, lymphadenopathy, thyromegaly Respiratory exam: PRESENT: clear to auscultation elia. ABSENT: rales, rhonchi, wheezes Cardiovascular exam: PRESENT: RRR. ABSENT: diastolic murmur, rubs, systolic murmur GI/Abdominal exam: PRESENT: normal bowel sounds, soft. ABSENT: distended, guarding, mass, organolmegaly, rebound, tenderness Neurological exam: PRESENT: alert, awake, oriented to time, oriented to sit uation Results Laboratory Results: 07/03/18 13:58 07/03/18 13:58 07/03/18 07/03/18 13:58 13:58 WBC 5.9 RBC 3.05 L Hgb 8.8 L Hct 26.4 L MCV 86 MCH 28.9 MCHC 33.5 RDW 15.9 H Plt Count 222 Seg Neutrophils % 62.4 Lymphocytes % 24.4 Monocytes % 10.0 Eosinophils % 2.7 Basophils % 0.5 Absolute Neutrophils 3.7 Absolute Lymphocytes 1.4 Absolute Monocytes 0.6 Absolute Eosinophils 0.2 Absolute Basophils 0.0 Sodium 138.0 Potassium 4.5 Chloride 101 Carbon Dioxide 32 H Anion Gap 5 BUN 12 Creatinine 0.97 Est GFR ( Amer) > 60 Est GFR (Non-Af Amer) 56 L Glucose 98 Calcium 9.1 Magnesium 1.9 Total Bilirubin 0.3 AST 17 ALT 14 Alkaline Phosphatase 76 Total Protein 5.7 L Albumin 2.8 L 07/03/18 13:58 NT-Pro-B Natriuret Pep 249 Impressions: Chest X-Ray 07/01/18 19:54 IMPRESSION: HEART ENLARGED WITHOUT FAILURE. NO OTHER SIGNIFICANT RADIOGRAPHIC FINDING IN THE CHEST. Chest CT 07/01/18 20:52 IMPRESSION: Mild wall thickening of the urinary bladder with a Barton catheter in place. Correlate with urinalysis to exclude UTI. Abdomen/Pelvis CT 07/01/18 20:53 IMPRESSION: Mild wall thickening of the urinary bladder with a Barton catheter in place. Correlate with urinalysis to exclude UTI. Assessment & Plan - Diagnosis (1) Complicated UTI (urinary tract infection) Is this a current diagnosis for this admission?: Yes Plan: Urine cultures positive for gram-negative sarai. Previous urine culture positive for ESBL Klebsiella. Continue statin (2) Acute kidney injury Is this a current diagnosis for this admission?: Yes Plan: Has resolved (3) HTN (hypertension) Qualifiers: Hypertension type: essential hypertension Qualified Code(s): I10 - Essential (primary) hypertension Is this a current diagnosis for this admission?: Yes Plan: Continue current medication (4) Chronic pain Qualifiers: Chronic pain type: chronic pain syndrome Qualified Code(s): G89.4 - Chronic pain syndrome Is this a current diagnosis for this admission?: Yes Plan: Patient has been on Percocet, Duragesic and, baclofen. On increase the dose of her fentanyl patch to 50 Dimitri. (5) Chronic diastolic CHF (congestive heart failure) Is this a current diagnosis for this admission?: Yes Plan: Compensated. (6) Chronic a-fib Is this a current diagnosis for this admission?: Yes Plan: Rate controlled. Continue current medication. (7) Coronary artery disease Qualifiers: Coronary Disease-Associated Artery/Lesion type: [place] artery Is this a current diagnosis for this admission?: Yes Plan: No anginal pain currently. (8) Diabetes mellitus type II, controlled Qualifiers: 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: with intermediate project manager use Diabetes mellitus complication status: with hyperglycemia Qualified Code(s): E11.65 - Type 2 diabetes mellitus with hyperglycemia; Z79.4 - detention (current) use of insulin; Z79.4 - detention (current) use of insulin; Z79.4 - detention (current) use of insulin; Z79.4 - detention (current) use of insulin Is this a current diagnosis for this admission?: Yes Plan: Continue sliding scale and home medication. (9) Hyperlipidemia Qualifiers: Hyperlipidemia type: unspecified Qualified Code(s): E78.5 - Hyperlipidemia, unspecified Is this a current diagnosis for this admission?: Yes Plan: Continue home statin (10) COPD (chronic obstructive pulmonary disease) Qualifiers: Emphysema type: unspecified Is this a current diagnosis for this admission?: Yes Plan: Continue as needed bronchodilator. (11) Bedbound Is this a current diagnosis for this admission?: Yes Plan: Fall precaution and repositioning every 2 hours to prevent pressure ulcer.
[2018-07-03] MEDS: IPRATROPIUM/ALBUTEROL 0.5-2.5 MG/3 ML AMPUL NEB PRN (19:37)
[2018-07-03] MEDS: MELATONIN 5 MG TABLET PO SCH (21:48)
[2018-07-03] MEDS: SENNOSIDES/DOCUSATE 8.6-50 MG 1 EACH TABLET PO SCH (21:50)
[2018-07-04] MEDS: LEVALBUTEROL HCL NEB 0.63 MG/3 ML AMPUL NEB SCH ×4 (00:42→20:48)
[2018-07-04] MEDS: ACETYLCYSTEINE 10% NEB 400 MG/4 ML VIAL NEB SCH ×3 (02:25→13:52)
[2018-07-04] MEDS: IPRATROPIUM/ALBUTEROL 0.5-2.5 MG/3 ML AMPUL NEB PRN ×2 (02:25→13:52)
[2018-07-04] MEDS: DILTIAZEM HCL 60 MG TABLET PO SCH (05:19)
[2018-07-04] MEDS: PREGABALIN 75 MG CAPSULE PO SCH ×3 (05:20→22:17)
[2018-07-04] MEDS: HEPARIN SOD (PORCINE) 5,000 UNIT/ML 1 ML SYRINGE SUBCUT SCH ×3 (05:20→22:14)
[2018-07-04] MEDS: HYDRALAZINE HCL 25 MG TABLET PO SCH ×3 (05:20→22:17)
[2018-07-04] MEDS ORDERED: METOPROLOL SUCCINATE 50 MG TAB.SR.24H PO SCH (10:00)
[2018-07-04] MEDS: DOCUSATE SODIUM 100 MG CAPSULE PO SCH ×2 (10:44→17:00)
[2018-07-04] MEDS: POLYETHYLENE GLYCOL 3350 POWDER 17 GM/1 PACKET PO SCH (10:45)
[2018-07-04] MEDS: ASCORBIC ACID 500 MG TABLET PO SCH ×2 (10:49→17:20)
[2018-07-04] MEDS: GUAIFENESIN 600 MG TABLET.SA PO SCH ×2 (10:49→22:15)
[2018-07-04] MEDS: CETIRIZINE 10 MG TABLET PO SCH (10:49)
[2018-07-04] MEDS: RANOLAZINE 500 MG TAB.SR.12H PO SCH ×2 (10:49→22:17)
[2018-07-04] MEDS: DULOXETINE HCL 30 MG CAPSULE.DR PO SCH (10:49)
[2018-07-04] MEDS: FUROSEMIDE 40 MG TABLET PO SCH ×2 (10:50→17:20)
[2018-07-04] MEDS: ROFLUMILAST 500 MCG TABLET PO SCH (10:50)
[2018-07-04] MEDS: FERROUS SULFATE 325 MG TABLET PO SCH ×2 (10:50→17:20)
[2018-07-04] MEDS: FAMOTIDINE 20 MG TABLET PO SCH ×2 (10:50→22:17)
[2018-07-04] MEDS: ASPIRIN 81 MG TABLET, CHEWABLE PO SCH (10:50)
[2018-07-04] MEDS: METOPROLOL SUCCINATE 25 MG TAB.SR.24H PO SCH (10:50)
[2018-07-04] MEDS: POTASSIUM CHLORIDE 10 MEQ CAPSULE.ER PO SCH (10:50)
[2018-07-04] MEDS: TAMSULOSIN HCL 0.4 MG CAP.SR.24H PO SCH (10:50)
[2018-07-04] MEDS: BUSPIRONE HCL 10 MG TABLET PO SCH ×2 (10:50→22:16)
[2018-07-04] MEDS: ERTAPENEM SODIUM 1 GM in NORMAL SALINE 50 ML IV SCH (10:51)
[2018-07-04] MEDS: FLUTICASONE/SALMETEROL DISKUS 500-50 MCG/DOSE IH SCH ×2 (10:51→22:15)
[2018-07-04] MEDS: TIOTROPIUM BROMIDE DPI 5 CAP/KIT (18 MCG/CAP) IH SCH (10:51)
[2018-07-04] MEDS: CARBOXYMETHYLCELLULOSE SOD 0.5% 0.4 ML DROPERETTE OU SCH ×4 (10:52→22:17)
[2018-07-04] MEDS: INSULIN DETEMIR 100 UNIT/ML 3 ML PEN SUBCUT SCH (11:31)
[2018-07-04] MEDS: DILTIAZEM HCL 30 MG TABLET PO SCH ×2 (13:39→22:17)
--- NOTE | 2018-07-04 13:52 | PDOC PROGRESS REPORT ---
Subjective Subjective:: I seen patient propped up in bed. She is awake alert and oriented. She is in mild distress. Her blood pressure is on the lower side so I cut it down her Cardizem and metoprolol by half. Her urine culture grew Proteus mirabilis and gram-negative rods. Currently patient has been getting ertapenem since her urine culture during her past admissions grew ESBL E. coli and CRE Klebsiella. Reason For Visit: ESBL,UTI Physical Exam Vital Signs: Temp Pulse Resp BP Pulse Ox 97.3 F 71 17 123/58 L 97 07/04/18 12:25 07/04/18 12:25 07/04/18 12:25 07/04/18 12:25 07/04/18 12:25 Intake & Output 07/03/18 07/04/18 07/05/18 06:59 06:59 06:59 Intake Total 3587 400 520 Output Total 900 1975 275 Balance 5117 -0795 245 Weight 88.1 kg 88.5 kg General appearance: PRESENT: no acute distress Eye exam: PRESENT: conjunctiva pink Mouth exam: PRESENT: moist Neck exam: ABSENT: carotid bruit, JVD, lymphadenopathy, thyromegaly Respiratory exam: PRESENT: crackles Cardiovascular exam: PRESENT: irregular rhythm GI/Abdominal exam: PRESENT: normal bowel sounds, soft. ABSENT: distended, guarding, mass, organolmegaly, rebound, tenderness Neurological exam: PRESENT: alert, awake Results Laboratory Results: 07/03/18 13:58 07/03/18 13:58 07/03/18 07/03/18 13:58 13:58 WBC 5.9 RBC 3.05 L Hgb 8.8 L Hct 26.4 L MCV 86 MCH 28.9 MCHC 33.5 RDW 15.9 H Plt Count 222 Seg Neutrophils % 62.4 Lymphocytes % 24.4 Monocytes % 10.0 Eosinophils % 2.7 Basophils % 0.5 Absolute Neutrophils 3.7 Absolute Lymphocytes 1.4 Absolute Monocytes 0.6 Absolute Eosinophils 0.2 Absolute Basophils 0.0 Sodium 138.0 Potassium 4.5 Chloride 101 Carbon Dioxide 32 H Anion Gap 5 BUN 12 Creatinine 0.97 Est GFR ( Amer) > 60 Est GFR (Non-Af Amer) 56 L Glucose 98 Calcium 9.1 Magnesium 1.9 Total Bilirubin 0.3 AST 17 ALT 14 Alkaline Phosphatase 76 Total Protein 5.7 L Albumin 2.8 L 07/03/18 13:58 NT-Pro-B Natriuret Pep 249 Impressions: Chest X-Ray 07/01/18 19:54 IMPRESSION: HEART ENLARGED WITHOUT FAILURE. NO OTHER SIGNIFICANT RADIOGRAPHIC FINDING IN THE CHEST. Chest CT 07/01/18 20:52 IMPRESSION: Mild wall thickening of the urinary bladder with a Barton catheter in place. Correlate with urinalysis to exclude UTI. Abdomen/Pelvis CT 07/01/18 20:53 IMPRESSION: Mild wall thickening of the urinary bladder with a Barton catheter in place. Correlate with urinalysis to exclude UTI. Assessment & Plan - Diagnosis (1) Complicated UTI (urinary tract infection) Is this a current diagnosis for this admission?: Yes Plan: Urine culture grew Proteus mirabilis and gram-negative rods (2) Acute kidney injury Is this a current diagnosis for this admission?: Yes Plan: Has resolved (3) HTN (hypertension) Qualifiers: Hypertension type: essential hypertension Qualified Code(s): I10 - Essential (primary) hypertension Is this a current diagnosis for this admission?: Yes Plan: Continue current medication (4) Chronic pain Qualifiers: Chronic pain type: chronic pain syndrome Qualified Code(s): G89.4 - Chronic pain syndrome Is this a current diagnosis for this admission?: Yes Plan: Patient has been on Percocet, Duragesic and, baclofen. On increase the dose of her fentanyl patch to 50 Dimitri. (5) Chronic diastolic CHF (congestive heart failure) Is this a current diagnosis for this admission?: Yes Plan: Compensated. (6) Chronic a-fib Is this a current diagnosis for this admission?: Yes Plan: Rate controlled. Continue current medication. (7) Coronary artery disease Qualifiers: Coronary Disease-Associated Artery/Lesion type: [place] artery Is this a current diagnosis for this admission?: Yes Plan: No anginal pain currently. (8) Diabetes mellitus type II, controlled Qualifiers: Diabetes mellitus termite control service representative insulin use: with termite control service representative use Diabetes mellitus complication status: with hyperglycemia Qualified Code(s): E11.65 - Type 2 diabetes mellitus with hyperglycemia; Z79.4 - skilled nursing (current) use of insulin; Z79.4 - keno terminal operator (current) use of insulin; Z79.4 - skilled nursing (current) use of insulin; Z79.4 - keno terminal operator (current) use of insulin Is this a current diagnosis for this admission?: Yes Plan: Continue sliding scale and home medication. (9) Hyperlipidemia Qualifiers: Hyperlipidemia type: unspecified Qualified Code(s): E78.5 - Hyperlipidemia, unspecified Is this a current diagnosis for this admission?: Yes Plan: Continue home statin (10) COPD (chronic obstructive pulmonary disease) Qualifiers: Emphysema type: unspecified Is this a current diagnosis for this admission?: Yes Plan: Continue as needed bronchodilator. (11) Bedbound Is this a current diagnosis for this admission?: Yes Plan: Fall precaution and repositioning every 2 hours to prevent pressure ulcer.
[2018-07-04] MEDS ORDERED: DILTIAZEM HCL 60 MG TABLET PO SCH (14:00)
[2018-07-04] MEDS ORDERED: ACETYLCYSTEINE 20% SOLN 800 MG/4 ML VIAL.NEB NEB SCH ×2 (20:00)
[2018-07-04] MEDS: MELATONIN 5 MG TABLET PO SCH (22:16)
[2018-07-04] MEDS: SENNOSIDES/DOCUSATE 8.6-50 MG 1 EACH TABLET PO SCH (22:17)
[2018-07-05] MEDS: LEVALBUTEROL HCL NEB 0.63 MG/3 ML AMPUL NEB SCH ×4 (01:13→20:34)
[2018-07-05] MEDS: DILTIAZEM HCL 30 MG TABLET PO SCH ×3 (06:31→21:50)
[2018-07-05] MEDS: HEPARIN SOD (PORCINE) 5,000 UNIT/ML 1 ML SYRINGE SUBCUT SCH ×3 (06:32→21:50)
[2018-07-05] MEDS: PREGABALIN 75 MG CAPSULE PO SCH ×3 (06:32→21:50)
[2018-07-05] MEDS: HYDRALAZINE HCL 25 MG TABLET PO SCH ×3 (06:32→21:54)
[2018-07-05] MEDS: OXYCODONE HCL IR 5 MG TABLET PO PRN ×2 (06:41→17:46)
[2018-07-05] MEDS: POTASSIUM CHLORIDE 10 MEQ CAPSULE.ER PO SCH (11:04)
[2018-07-05] MEDS: TAMSULOSIN HCL 0.4 MG CAP.SR.24H PO SCH (11:05)
[2018-07-05] MEDS: METOPROLOL SUCCINATE 25 MG TAB.SR.24H PO SCH (11:05)
[2018-07-05] MEDS: DOCUSATE SODIUM 100 MG CAPSULE PO SCH ×2 (11:05→17:37)
[2018-07-05] MEDS: DULOXETINE HCL 30 MG CAPSULE.DR PO SCH (11:05)
[2018-07-05] MEDS: GUAIFENESIN 600 MG TABLET.SA PO SCH ×2 (11:05→21:54)
[2018-07-05] MEDS: ASPIRIN 81 MG TABLET, CHEWABLE PO SCH (11:05)
[2018-07-05] MEDS: FUROSEMIDE 40 MG TABLET PO SCH ×2 (11:05→17:38)
[2018-07-05] MEDS: FAMOTIDINE 20 MG TABLET PO SCH ×2 (11:05→21:54)
[2018-07-05] MEDS: FERROUS SULFATE 325 MG TABLET PO SCH ×2 (11:05→17:37)
[2018-07-05] MEDS: CETIRIZINE 10 MG TABLET PO SCH (11:05)
[2018-07-05] MEDS: POLYETHYLENE GLYCOL 3350 POWDER 17 GM/1 PACKET PO SCH (11:05)
[2018-07-05] MEDS: BUSPIRONE HCL 10 MG TABLET PO SCH ×2 (11:06→21:50)
[2018-07-05] MEDS: CARBOXYMETHYLCELLULOSE SOD 0.5% 0.4 ML DROPERETTE OU SCH ×4 (11:06→21:55)
[2018-07-05] MEDS: RANOLAZINE 500 MG TAB.SR.12H PO SCH ×2 (11:06→21:53)
[2018-07-05] MEDS: ROFLUMILAST 500 MCG TABLET PO SCH (11:06)
[2018-07-05] MEDS: ERTAPENEM SODIUM 1 GM in NORMAL SALINE 50 ML IV SCH (11:07)
[2018-07-05] MEDS: ASCORBIC ACID 500 MG TABLET PO SCH ×2 (11:07→17:37)
[2018-07-05] MEDS: INSULIN DETEMIR 100 UNIT/ML 3 ML PEN SUBCUT SCH (11:12)
[2018-07-05] MEDS: TIOTROPIUM BROMIDE DPI 5 CAP/KIT (18 MCG/CAP) IH SCH (11:13)
[2018-07-05] MEDS: FLUTICASONE/SALMETEROL DISKUS 500-50 MCG/DOSE IH SCH ×2 (11:14→21:54)
--- NOTE | 2018-07-05 12:35 | PDOC PROGRESS REPORT ---
Subjective Progress Note for:: 07/05/18 Subjective:: Patient is seen and examined at bedside. She is awake alert and oriented. She reports his back pain is well controlled with the increased dose of Duragesic 50 Dimitri every 72 hours. If patient remains stable she is a candidate for discharge on Saturday and continue IV antibiotics at the residential Reason For Visit: ESBL,UTI Physical Exam Vital Signs: Temp Pulse Resp BP Pulse Ox 97.3 F 69 16 105/51 L 98 07/05/18 08:05 07/05/18 09:12 07/05/18 09:12 07/05/18 08:05 07/05/18 09:12 Intake & Output 07/04/18 07/05/18 07/06/18 06:59 06:59 06:59 Intake Total 400 570 Output Total 1975 1425 Balance -1575 -855 Weight 88.5 kg 88.9 kg General appearance: PRESENT: no acute distress Eye exam: PRESENT: conjunctiva pink Respiratory exam: PRESENT: crackles, wheezes Cardiovascular exam: PRESENT: irregular rhythm GI/Abdominal exam: PRESENT: normal bowel sounds, soft. ABSENT: distended, guarding, mass, organolmegaly, rebound, tenderness Neurological exam: PRESENT: alert, awake, oriented to time, oriented to situation Results Laboratory Results: 07/03/18 13:58 07/03/18 13:58 07/01/18 21:30 Catheterized Urine Urine Culture - Final Proteus Mirabilis Klebsiella Pneumoniae 07/03/18 13:58 NT-Pro-B Natriuret Pep 249 Impressions: Chest X-Ray 07/01/18 19:54 IMPRESSION: HEART ENLARGED WITHOUT FAILURE. NO OTHER SIGNIFICANT RADIOGRAPHIC FINDING IN THE CHEST. Chest CT 07/01/18 20:52 IMPRESSION: Mild wall thickening of the urinary bladder with a Barton catheter in place. Correlate with urinalysis to exclude UTI. Abdomen/Pelvis CT 07/01/18 20:53 IMPRESSION: Mild wall thickening of the urinary bladder with a Barton catheter in place. Correlate with urinalysis to exclude UTI. Assessment & Plan - Diagnosis (1) Complicated UTI (urinary tract infection) Is this a current diagnosis for this admission?: Yes Plan: Urine culture grew Proteus mirabilis and gram-negative rods (2) Acute kidney injury Is this a current diagnosis for this admission?: Yes Plan: Has resolved (3) HTN (hypertension) Qualifiers: Hypertension type: essential hypertension Qualified Code(s): I10 - Essential (primary) hypertension Is this a current diagnosis for this admission?: Yes Plan: Continue current medication (4) Chronic pain Qualifiers: Chronic pain type: chronic pain syndrome Qualified Code(s): G89.4 - Chronic pain syndrome Is this a current diagnosis for this admission?: Yes Plan: Patient has been on Percocet, Duragesic and, baclofen. On increase the dose of her fentanyl patch to 50 Dimitri. (5) Chronic diastolic CHF (congestive heart failure) Is this a current diagnosis for this admission?: Yes Plan: Compensated. (6) Chronic a-fib Is this a current diagnosis for this admission?: Yes Plan: Rate controlled. Continue current medication. (7) Coronary artery disease Qualifiers: Coronary Disease-Associated Artery/Lesion type: [place] artery Is this a current diagnosis for this admission?: Yes Plan: No anginal pain currently. (8) Diabetes mellitus type II, controlled Qualifiers: Diabetes mellitus terminal clerk insulin use: with terminal clerk use Diabetes mellitus complication status: with hyperglycemia Qualified Code(s): E11.65 - Type 2 diabetes mellitus with hyperglycemia; Z79.4 - terminal system operator (current) use of insulin; Z79.4 - alf (current) use of insulin; Z79.4 - terminal system operator (current) use of insulin; Z79.4 - terminal system operator (current) use of insulin Is this a current diagnosis for this admission?: Yes Plan: Continue sliding scale and home medication. (9) Hyperlipidemia Qualifiers: Hyperlipidemia type: unspecified Qualified Code(s): E78.5 - Hyperlipidemia, unspecified Is this a current diagnosis for this admission?: Yes Plan: Continue home statin (10) COPD (chronic obstructive pulmonary disease) Qualifiers: Emphysema type: unspecified Is this a current diagnosis for this admission?: Yes Plan: Continue as needed bronchodilator. (11) Bedbound Is this a current diagnosis for this admission?: Yes Plan: Fall precaution and repositioning every 2 hours to prevent pressure ulcer.
[2018-07-05] MEDS: IPRATROPIUM/ALBUTEROL 0.5-2.5 MG/3 ML AMPUL NEB PRN (14:58)
[2018-07-05] MEDS: BACLOFEN 10 MG TABLET PO PRN (17:46)
[2018-07-05] MEDS: ACETYLCYSTEINE 20% SOLN 800 MG/4 ML VIAL.NEB NEB SCH (20:34)
[2018-07-05] MEDS: MELATONIN 5 MG TABLET PO SCH (21:53)
[2018-07-05] MEDS: SENNOSIDES/DOCUSATE 8.6-50 MG 1 EACH TABLET PO SCH (21:54)
[2018-07-06] MEDS: LEVALBUTEROL HCL NEB 0.63 MG/3 ML AMPUL NEB SCH ×4 (02:44→20:03)
[2018-07-06] MEDS: PREGABALIN 75 MG CAPSULE PO SCH ×3 (06:32→21:33)
[2018-07-06] MEDS: HEPARIN SOD (PORCINE) 5,000 UNIT/ML 1 ML SYRINGE SUBCUT SCH ×3 (06:33→21:38)
[2018-07-06] MEDS: HYDRALAZINE HCL 25 MG TABLET PO SCH ×3 (06:39→21:33)
[2018-07-06] MEDS: DILTIAZEM HCL 30 MG TABLET PO SCH ×3 (06:39→21:34)
[2018-07-06] MEDS: IPRATROPIUM/ALBUTEROL 0.5-2.5 MG/3 ML AMPUL NEB PRN (09:07)
[2018-07-06] MEDS: ACETYLCYSTEINE 20% SOLN 800 MG/4 ML VIAL.NEB NEB SCH ×2 (09:11→20:03)
[2018-07-06] MEDS: FENTANYL 50 MCG/HR PATCH.TD72 TD SCH (10:49)
[2018-07-06] MEDS: POTASSIUM CHLORIDE 10 MEQ CAPSULE.ER PO SCH (10:50)
[2018-07-06] MEDS: CARBOXYMETHYLCELLULOSE SOD 0.5% 0.4 ML DROPERETTE OU SCH ×4 (10:50→21:34)
[2018-07-06] MEDS: CETIRIZINE 10 MG TABLET PO SCH (10:51)
[2018-07-06] MEDS: ASPIRIN 81 MG TABLET, CHEWABLE PO SCH (10:51)
[2018-07-06] MEDS: DOCUSATE SODIUM 100 MG CAPSULE PO SCH ×2 (10:51→18:35)
[2018-07-06] MEDS: FUROSEMIDE 40 MG TABLET PO SCH ×2 (10:51→18:35)
[2018-07-06] MEDS: GUAIFENESIN 600 MG TABLET.SA PO SCH ×2 (10:51→21:33)
[2018-07-06] MEDS: METOPROLOL SUCCINATE 25 MG TAB.SR.24H PO SCH (10:51)
[2018-07-06] MEDS: DULOXETINE HCL 30 MG CAPSULE.DR PO SCH (10:51)
[2018-07-06] MEDS: ASCORBIC ACID 500 MG TABLET PO SCH ×2 (10:51→18:34)
[2018-07-06] MEDS: FERROUS SULFATE 325 MG TABLET PO SCH ×2 (10:51→18:35)
[2018-07-06] MEDS: FAMOTIDINE 20 MG TABLET PO SCH ×2 (10:51→21:33)
[2018-07-06] MEDS: POLYETHYLENE GLYCOL 3350 POWDER 17 GM/1 PACKET PO SCH (10:51)
[2018-07-06] MEDS: TAMSULOSIN HCL 0.4 MG CAP.SR.24H PO SCH (10:51)
[2018-07-06] MEDS: TIOTROPIUM BROMIDE DPI 5 CAP/KIT (18 MCG/CAP) IH SCH (10:52)
[2018-07-06] MEDS: FLUTICASONE/SALMETEROL DISKUS 500-50 MCG/DOSE IH SCH ×2 (10:52→21:39)
[2018-07-06] MEDS: RANOLAZINE 500 MG TAB.SR.12H PO SCH ×2 (10:53→21:39)
[2018-07-06] MEDS: ROFLUMILAST 500 MCG TABLET PO SCH (10:54)
[2018-07-06] MEDS: BUSPIRONE HCL 10 MG TABLET PO SCH ×2 (10:54→21:35)
[2018-07-06] MEDS: ERTAPENEM SODIUM 1 GM in NORMAL SALINE 50 ML IV SCH (10:54)
[2018-07-06] MEDS: INSULIN DETEMIR 100 UNIT/ML 3 ML PEN SUBCUT SCH (10:54)
--- NOTE | 2018-07-06 12:09 | PDOC PROGRESS REPORT ---
Subjective Progress Note for:: 07/06/18 Subjective:: I seen patient propped up in bed. Patient complains that she is not fully awake all day yesterday and today this morning. This might be related to this narcotic analgesics that she has been getting so I decreased the dose of her fentanyl from 50 mics to 25 and her oxycodone from 10 mg to 5 mg. Reason For Visit: ESBL,UTI Physical Exam Vital Signs: Temp Pulse Resp BP Pulse Ox 98.5 F 65 16 114/53 L 96 07/06/18 08:20 07/06/18 09:07 07/06/18 09:07 07/06/18 08:20 07/06/18 09:07 Intake & Output 07/05/18 07/06/18 07/07/18 06:59 06:59 06:59 Intake Total 570 607 Output Total 1425 0045 Balance -855 -1318 Weight 88.9 kg 83.5 kg General appearance: PRESENT: no acute distress Mouth exam: PRESENT: moist Neck exam: ABSENT: carotid bruit, JVD, lymphadenopathy, thyromegaly Respiratory exam: PRESENT: clear to auscultation elia. ABSENT: rales, rhonchi, wheezes Cardiovascular exam: PRESENT: irregular rhythm Neurological exam: PRESENT: other - Somewhat sleepy Results Laboratory Results: 07/03/18 13:58 07/03/18 13:58 07/01/18 21:30 Catheterized Urine Urine Culture - Final Proteus Mirabilis Klebsiella Pneumoniae 07/03/18 13:58 NT-Pro-B Natriuret Pep 249 Impressions: Chest X-Ray 07/01/18 19:54 IMPRESSION: HEART ENLARGED WITHOUT FAILURE. NO OTHER SIGNIFICANT RADIOGRAPHIC FINDING IN THE CHEST. Chest CT 07/01/18 20:52 IMPRESSION: Mild wall thickening of the urinary bladder with a Barton catheter in place. Correlate with urinalysis to exclude UTI. Abdomen/Pelvis CT 07/01/18 20:53 IMPRESSION: Mild wall thickening of the urinary bladder with a Barton catheter in place. Correlate with urinalysis to exclude UTI. Assessment & Plan - Diagnosis (1) Complicated UTI (urinary tract infection) Is this a current diagnosis for this admission?: Yes Plan: Urine culture grew Proteus mirabilis and gram-negative rods (2) Acute kidney injury Is this a current diagnosis for this admission?: Yes Plan: Has resolved (3) HTN (hypertension) Qualifiers: Hypertension type: essential hypertension Qualified Code(s): I10 - Essential (primary) hypertension Is this a current diagnosis for this admission?: Yes Plan: Continue current medication (4) Chronic pain Qualifiers: Chronic pain type: chronic pain syndrome Qualified Code(s): G89.4 - Chronic pain syndrome Is this a current diagnosis for this admission?: Yes Plan: Patient has been on Percocet, Duragesic and, baclofen. On increase the dose of her fentanyl patch to 50 Dimitri. (5) Chronic diastolic CHF (congestive heart failure) Is this a current diagnosis for this admission?: Yes Plan: Compensated. (6) Chronic a-fib Is this a current diagnosis for this admission?: Yes Plan: Rate controlled. Continue current medication. (7) Coronary artery disease Qualifiers: Coronary Disease-Associated Artery/Lesion type: [place] artery Is this a current diagnosis for this admission?: Yes Plan: No anginal pain currently. (8) Diabetes mellitus type II, controlled Qualifiers: Diabetes mellitus terminal worker insulin use: with mcc use Diabetes mellitus complication status: with hyperglycemia Qualified Code(s): E11.65 - Type 2 diabetes mellitus with hyperglycemia; Z79.4 - terminal worker (current) use of insulin; Z79.4 - care home (current) use of insulin; Z79.4 - terminal worker (current) use of insulin; Z79.4 - terminal worker (current) use of insulin Is this a current diagnosis for this admission?: Yes Plan: Continue sliding scale and home medication. (9) Hyperlipidemia Qualifiers: Hyperlipidemia type: unspecified Qualified Code(s): E78.5 - Hyperlipidemia, unspecified Is this a current diagnosis for this admission?: Yes Plan: Continue home statin (10) COPD (chronic obstructive pulmonary disease) Qualifiers: Emphysema type: unspecified Is this a current diagnosis for this admission?: Yes Plan: Continue as needed bronchodilator. (11) Bedbound Is this a current diagnosis for this admission?: Yes
[2018-07-06] MEDS ORDERED: HEPARIN SOD (PORCINE) 5,000 UNIT/ML 1 ML SYRINGE SUBCUT ONE (13:00)
[2018-07-06] MEDS ORDERED: WARFARIN SODIUM 5 MG TABLET PO ONE (13:00)
[2018-07-06] MEDS ORDERED: FENTANYL 25 MCG/HR PATCH.TD72 TD ONE (17:30)
[2018-07-06] MEDS: MELATONIN 5 MG TABLET PO SCH (21:33)
[2018-07-06] MEDS: SENNOSIDES/DOCUSATE 8.6-50 MG 1 EACH TABLET PO SCH (21:33)
[2018-07-07] MEDS: LEVALBUTEROL HCL NEB 0.63 MG/3 ML AMPUL NEB SCH ×4 (02:29→19:51)
[2018-07-07] MEDS: HYDRALAZINE HCL 25 MG TABLET PO SCH ×3 (05:44→22:05)
[2018-07-07] MEDS: DILTIAZEM HCL 30 MG TABLET PO SCH ×3 (05:44→22:06)
[2018-07-07] MEDS: HEPARIN SOD (PORCINE) 5,000 UNIT/ML 1 ML SYRINGE SUBCUT SCH ×3 (05:44→22:05)
[2018-07-07] MEDS: PREGABALIN 75 MG CAPSULE PO SCH ×3 (05:44→22:07)
[2018-07-07] MEDS: OXYCODONE HCL IR 5 MG TABLET PO PRN (05:45)
[2018-07-07] MEDS: ACETYLCYSTEINE 20% SOLN 800 MG/4 ML VIAL.NEB NEB SCH ×2 (08:38→19:51)
--- NOTE | 2018-07-07 09:36 | PDOC PROGRESS REPORT ---
Subjective Progress Note for:: 07/07/18 Subjective:: This is 73 years old female patient who is a residential resident with multiple comorbidities, chronic indwelling Barton catheter and polypharmacy brought with chief complaint of fever. Patient is being treated for complicated UTI due to Proteus mirabilis and gram-negative rods with ertapenem, day 5 on antibiotics. During her previous admission her urine cultures were positive for ESBL E. coli and CRE. I am about to discharge this patient to residential and continue her IV antibiotic for additional 7 days, but today patient has some visual hallucination which might be due to poor for polypharmacy so I hold the discharge and will closely observe her for today. Reason For Visit: ESBL,UTI Physical Exam Vital Signs: Temp Pulse Resp BP Pulse Ox 97.3 F 86 20 102/57 L 93 07/07/18 09:06 07/07/18 09:06 07/07/18 09:06 07/07/18 09:06 07/07/18 09:06 Intake & Output 07/06/18 07/07/18 07/08/18 06:59 06:59 06:59 Intake Total 607 250 Output Total 1925 1500 Balance -1318 -1250 Weight 83.5 kg 83.7 kg General appearance: PRESENT: no acute distress Head exam: PRESENT: atraumatic Eye exam: PRESENT: conjunctiva pink Mouth exam: PRESENT: moist Neck exam: ABSENT: carotid bruit, JVD, lymphadenopathy, thyromegaly Respiratory exam: PRESENT: clear to auscultation elia. ABSENT: rales, rhonchi, wheezes Cardiovascular exam: PRESENT: irregular rhythm Neurological exam: PRESENT: alert, awake Results Laboratory Results: 07/03/18 13:58 07/03/18 13:58 07/01/18 21:30 Blood Blood Culture - Final NO GROWTH IN 5 DAYS 07/01/18 20:02 Blood Blood Culture - Final NO GROWTH IN 5 DAYS 07/03/18 13:58 NT-Pro-B Natriuret Pep 249 Impressions: Chest X-Ray 07/01/18 19:54 IMPRESSION: HEART ENLARGED WITHOUT FAILURE. NO OTHER SIGNIFICANT RADIOGRAPHIC FINDING IN THE CHEST. Chest CT 07/01/18 20:52 IMPRESSION: Mild wall thickening of the urinary bladder with a Barton catheter in place. Correlate with urinalysis to exclude UTI. Abdomen/Pelvis CT 07/01/18 20:53 IMPRESSION: Mild wall thickening of the urinary bladder with a Barton catheter in place. Correlate with urinalysis to exclude UTI. Assessment & Plan - Diagnosis (1) Encephalopathy Is this a current diagnosis for this admission?: Yes Plan: Possibly due to polypharmacy and narcotic analgesics. Close follow-up. (2) Complicated UTI (urinary tract infection) Is this a current diagnosis for this admission?: Yes Plan: Urine culture grew Proteus mirabilis and gram-negative rods (3) Acute kidney injury Is this a current diagnosis for this admission?: Yes Plan: Has resolved (4) HTN (hypertension) Qualifiers: Hypertension type: essential hypertension Qualified Code(s): I10 - Essential (primary) hypertension Is this a current diagnosis for this admission?: Yes Plan: Continue current medication (5) Chronic pain Qualifiers: Chronic pain type: chronic pain syndrome Qualified Code(s): G89.4 - Chronic pain syndrome Is this a current diagnosis for this admission?: Yes Plan: Patient has been on Percocet, Duragesic and, baclofen. On increase the dose of her fentanyl patch to 50 Dimitri. (6) Chronic diastolic CHF (congestive heart failure) Is this a current diagnosis for this admission?: Yes Plan: Compensated. (7) Chronic a-fib Is this a current diagnosis for this admission?: Yes Plan: Rate controlled. Continue current medication. (8) Coronary artery disease Qualifiers: Coronary Disease-Associated Artery/Lesion type: [place] artery Is this a current diagnosis for this admission?: Yes Plan: No anginal pain currently. (9) Diabetes mellitus type II, controlled Qualifiers: Diabetes mellitus intermediate frame tender insulin use: with intermediate frame tender use Diabetes mellitus complication status: with hyperglycemia Qualified Code(s): E11.65 - Type 2 diabetes mellitus with hyperglycemia; Z79.4 - rat exterminator (current) use of insulin; Z79.4 - detention (current) use of insulin; Z79.4 - rat exterminator (current) use of insulin; Z79.4 - rat exterminator (current) use of insulin Is this a current diagnosis for this admission?: Yes Plan: Continue sliding scale and home medication. (10) Hyperlipidemia Qualifiers: Hyperlipidemia type: unspecified Qualified Code(s): E78.5 - Hyperlipidemia, unspecified Is this a current diagnosis for this admission?: Yes Plan: Continue home statin (11) COPD (chronic obstructive pulmonary disease) Qualifiers: Emphysema type: unspecified Is this a current diagnosis for this admission?: Yes Plan: Continue as needed bronchodilator. (12) Bedbound Is this a current diagnosis for this admission?: Yes Plan: Fall precaution and repositioning every 2 hours to prevent pressure ulcer.
[2018-07-07] MEDS: FLUTICASONE/SALMETEROL DISKUS 500-50 MCG/DOSE IH SCH ×2 (10:03→22:10)
[2018-07-07] MEDS: FERROUS SULFATE 325 MG TABLET PO SCH ×2 (10:04→17:34)
[2018-07-07] MEDS: DULOXETINE HCL 30 MG CAPSULE.DR PO SCH (10:04)
[2018-07-07] MEDS: BUSPIRONE HCL 10 MG TABLET PO SCH ×2 (10:04→22:07)
[2018-07-07] MEDS: ASPIRIN 81 MG TABLET, CHEWABLE PO SCH (10:04)
[2018-07-07] MEDS: TAMSULOSIN HCL 0.4 MG CAP.SR.24H PO SCH (10:04)
[2018-07-07] MEDS: DOCUSATE SODIUM 100 MG CAPSULE PO SCH ×2 (10:04→17:34)
[2018-07-07] MEDS: ROFLUMILAST 500 MCG TABLET PO SCH (10:04)
[2018-07-07] MEDS: POTASSIUM CHLORIDE 10 MEQ CAPSULE.ER PO SCH (10:05)
[2018-07-07] MEDS: INSULIN DETEMIR 100 UNIT/ML 3 ML PEN SUBCUT SCH (10:05)
[2018-07-07] MEDS: ERTAPENEM SODIUM 1 GM in NORMAL SALINE 50 ML IV SCH (10:05)
[2018-07-07] MEDS: FUROSEMIDE 40 MG TABLET PO SCH ×2 (10:05→17:34)
[2018-07-07] MEDS: CARBOXYMETHYLCELLULOSE SOD 0.5% 0.4 ML DROPERETTE OU SCH ×4 (10:06→22:10)
[2018-07-07] MEDS: TIOTROPIUM BROMIDE DPI 5 CAP/KIT (18 MCG/CAP) IH SCH (10:06)
[2018-07-07] MEDS: FAMOTIDINE 20 MG TABLET PO SCH ×2 (10:06→22:08)
[2018-07-07] MEDS: RANOLAZINE 500 MG TAB.SR.12H PO SCH ×2 (10:06→22:08)
[2018-07-07] MEDS: POLYETHYLENE GLYCOL 3350 POWDER 17 GM/1 PACKET PO SCH (10:06)
[2018-07-07] MEDS: GUAIFENESIN 600 MG TABLET.SA PO SCH ×2 (10:06→22:08)
[2018-07-07] MEDS: CETIRIZINE 10 MG TABLET PO SCH (10:07)
[2018-07-07] MEDS: METOPROLOL SUCCINATE 25 MG TAB.SR.24H PO SCH (10:07)
[2018-07-07] MEDS: ASCORBIC ACID 500 MG TABLET PO SCH ×2 (10:07→17:34)
[2018-07-07] MEDS: SENNOSIDES/DOCUSATE 8.6-50 MG 1 EACH TABLET PO SCH (22:05)
[2018-07-07] MEDS: MELATONIN 5 MG TABLET PO SCH (22:06)
[2018-07-07] MEDS: BACLOFEN 10 MG TABLET PO PRN (22:07)
[2018-07-08] MEDS: LEVALBUTEROL HCL NEB 0.63 MG/3 ML AMPUL NEB SCH ×4 (02:13→21:08)
[2018-07-08] MEDS: DILTIAZEM HCL 30 MG TABLET PO SCH ×3 (06:44→22:21)
[2018-07-08] MEDS: HYDRALAZINE HCL 25 MG TABLET PO SCH ×3 (06:44→22:21)
[2018-07-08] MEDS: HEPARIN SOD (PORCINE) 5,000 UNIT/ML 1 ML SYRINGE SUBCUT SCH ×3 (06:45→22:19)
[2018-07-08] MEDS: PREGABALIN 75 MG CAPSULE PO SCH ×3 (06:45→22:20)
[2018-07-08] MEDS: ACETYLCYSTEINE 20% SOLN 800 MG/4 ML VIAL.NEB NEB SCH ×2 (08:39→21:08)
[2018-07-08] MEDS: ERTAPENEM SODIUM 1 GM in NORMAL SALINE 50 ML IV SCH (09:49)
[2018-07-08] MEDS: FAMOTIDINE 20 MG TABLET PO SCH ×2 (11:18→22:21)
[2018-07-08] MEDS: POLYETHYLENE GLYCOL 3350 POWDER 17 GM/1 PACKET PO SCH (11:18)
[2018-07-08] MEDS: FERROUS SULFATE 325 MG TABLET PO SCH ×2 (11:18→17:20)
[2018-07-08] MEDS: ASCORBIC ACID 500 MG TABLET PO SCH ×2 (11:18→17:20)
[2018-07-08] MEDS: ASPIRIN 81 MG TABLET, CHEWABLE PO SCH (11:18)
[2018-07-08] MEDS: GUAIFENESIN 600 MG TABLET.SA PO SCH ×2 (11:18→22:20)
[2018-07-08] MEDS: TAMSULOSIN HCL 0.4 MG CAP.SR.24H PO SCH (11:18)
[2018-07-08] MEDS: FUROSEMIDE 40 MG TABLET PO SCH ×2 (11:19→17:20)
[2018-07-08] MEDS: METOPROLOL SUCCINATE 25 MG TAB.SR.24H PO SCH (11:19)
[2018-07-08] MEDS: ROFLUMILAST 500 MCG TABLET PO SCH (11:19)
[2018-07-08] MEDS: CETIRIZINE 10 MG TABLET PO SCH (11:19)
[2018-07-08] MEDS: POTASSIUM CHLORIDE 10 MEQ CAPSULE.ER PO SCH (11:19)
[2018-07-08] MEDS: DULOXETINE HCL 30 MG CAPSULE.DR PO SCH (11:19)
[2018-07-08] MEDS: DOCUSATE SODIUM 100 MG CAPSULE PO SCH ×2 (11:19→17:20)
[2018-07-08] MEDS: CARBOXYMETHYLCELLULOSE SOD 0.5% 0.4 ML DROPERETTE OU SCH ×4 (11:20→22:20)
[2018-07-08] MEDS: FLUTICASONE/SALMETEROL DISKUS 500-50 MCG/DOSE IH SCH ×2 (11:20→22:18)
[2018-07-08] MEDS: RANOLAZINE 500 MG TAB.SR.12H PO SCH ×2 (11:20→22:20)
[2018-07-08] MEDS: BUSPIRONE HCL 10 MG TABLET PO SCH ×2 (11:20→22:20)
[2018-07-08] MEDS: INSULIN DETEMIR 100 UNIT/ML 3 ML PEN SUBCUT SCH (11:21)
[2018-07-08] MEDS: TIOTROPIUM BROMIDE DPI 5 CAP/KIT (18 MCG/CAP) IH SCH (12:05)
[2018-07-08] MEDS: PROMETHAZINE HCL 25 MG TABLET PO PRN (12:09)
[2018-07-08 15:33] LABS: ABSOLUTE BASOPHILS # (AUTO) 0.1 10^3/uL (0.0-0.2); ABSOLUTE EOSINOPHILS # (AUTO) 0.1 10^3/uL (0.0-0.6); ABSOLUTE LYMPHOCYTES (AUTO) 1.8 10^3/uL (0.5-4.7); ABSOLUTE MONOCYTES (AUTO) 0.8 10^3/uL (0.1-1.4); ABSOLUTE NEUT (AUTO) 5.8 10^3/uL (1.7-8.2); BASOPHILS % (AUTO) 0.7 % (0-2); EOSINOPHILS % (AUTO) 1.4 % (0-6); HEMATOCRIT 33.4 % (36.0-47.0); HEMOGLOBIN 11.3 g/dL (12.0-15.5); LYMPHOCYTES % (AUTO) 21.1 % (13-45); MEAN CORPUSCULAR HEMOGLOBIN 29.2 pg (27.0-33.4); MEAN CORPUSCULAR VOLUME 86 fl (80-97); MONOCYTES % (AUTO) 8.8 % (3-13); PLATELET COUNT 264 10^3/uL (150-450); RED BLOOD COUNT 3.88 10^6/uL (3.72-5.28); RED CELL DISTRIBUTION WIDTH 15.7 % (11.5-14.0); TOTAL CELLS COUNTED % (AUTO) 100 %; WHITE BLOOD COUNT 8.6 10^3/uL (4.0-10.5)
[2018-07-08 15:58] LABS: ALANINE AMINOTRANSFERASE 22 U/L (9-52); ALBUMIN 3.5 g/dL (3.5-5.0); ALKALINE PHOSPHATASE 93 U/L (38-126); ANION GAP 7 (5-19); ASPARTATE AMINO TRANSFERASE 41 U/L (14-36); BILIRUBIN,DIRECT 0.4 mg/dL (0.0-0.4); BILIRUBIN,TOTAL 0.5 mg/dL (0.2-1.3); BLOOD UREA NITROGEN 20 mg/dL (7-20); CALCIUM 10.4 mg/dL (8.4-10.2); CARBON DIOXIDE 36 mmol/L (22-30); CHLORIDE 95 mmol/L (98-107); GLUCOSE 90 mg/dL (75-110); POTASSIUM 4.7 mmol/L (3.6-5.0); SODIUM 137.9 mmol/L (137-145); TOTAL PROTEIN 7.1 g/dL (6.3-8.2)
[2018-07-08] MEDS ORDERED: HYDROCORTISONE SOD SUCCINATE INJ/PF 100 MG/2 ML SDV IV ONE (16:32)
--- NOTE | 2018-07-08 16:36 | PDOC PROGRESS REPORT ---
Subjective Progress Note for:: 07/08/18 Subjective:: No adverse events overnight. She was initially planned for discharge yesterday but that was put on hold because apparently she was hallucinating. She is not been hallucinating today or overnight, but she been very somnolent all day. She is been resting comfortably on her BiPAP as she usually does. She does wake up to verbal commands and she responds and communicates verbally, but soon after she is done she lays awake for a few minutes and then closes her eyes and drifts off to sleep. Reason For Visit: ESBL,UTI Physical Exam Vital Signs: Temp Pulse Resp BP Pulse Ox 98.2 F 87 16 125/53 L 98 07/08/18 11:07 07/08/18 14:00 07/08/18 13:58 07/08/18 11:07 07/08/18 13:58 Intake & Output 07/07/18 07/08/18 07/09/18 06:59 06:59 06:59 Intake Total 250 387 50 Output Total 1500 1225 Balance -1250 -838 50 Weight 83.7 kg 84 kg General appearance: PRESENT: no acute distress, disheveled, obese, other - Prashant nolent Respiratory exam: PRESENT: clear to auscultation elia, symmetrical, unlabored. ABSENT: accessory muscle use, crackles, rhonchi, tachypnea, wheezes Cardiovascular exam: PRESENT: RRR, +S1, +S2 Vascular exam: PRESENT: normal capillary refill GI/Abdominal exam: PRESENT: normal bowel sounds, soft. ABSENT: distended, guarding, rebound, tenderness Extremities exam: ABSENT: clubbing, pedal edema Musculoskeletal exam: PRESENT: normal inspection. ABSENT: deformity Neurological exam: PRESENT: awake - Drowsy but arousable, is able to stay awake long enough to communicate with me, oriented to person, oriented to place Psychiatric exam: PRESENT: flat affect Skin exam: PRESENT: dry, warm Results Laboratory Results: 07/08/18 14:54 07/08/18 14:54 07/08/18 07/08/18 14:54 14:54 WBC 8.6 RBC 3.88 Hgb 11.3 L Hct 33.4 L MCV 86 MCH 29.2 MCHC 34.0 RDW 15.7 H Plt Count 264 Seg Neutrophils % 68.0 Lymphocytes % 21.1 Monocytes % 8.8 Eosinophils % 1.4 Basophils % 0.7 Absolute Neutrophils 5.8 Absolute Lymphocytes 1.8 Absolute Monocytes 0.8 Absolute Eosinophils 0.1 Absolute Basophils 0.1 Sodium 137.9 Potassium 4.7 Chloride 95 L Carbon Dioxide 36 H Anion Gap 7 BUN 20 Creatinine 1.31 H Est GFR ( Amer) 48 L Est GFR (Non-Af Amer) 40 L Glucose 90 Calcium 10.4 H Total Bilirubin 0.5 AST 41 H ALT 22 Alkaline Phosphatase 93 Total Protein 7.1 Albumin 3.5 07/03/18 13:58 NT-Pro-B Natriuret Pep 249 Impressions: Chest X-Ray 07/01/18 19:54 IMPRESSION: HEART ENLARGED WITHOUT FAILURE. NO OTHER SIGNIFICANT RADIOGRAPHIC FINDING IN THE CHEST. Chest CT 07/01/18 20:52 IMPRESSION: Mild wall thickening of the urinary bladder with a Barton catheter in place. Correlate with urinalysis to exclude UTI. Abdomen/Pelvis CT 07/01/18 20:53 IMPRESSION: Mild wall thickening of the urinary bladder with a Barton catheter in place. Correlate with urinalysis to exclude UTI. Assessment & Plan - Diagnosis (1) Complicated UTI (urinary tract infection) Is this a current diagnosis for this admission?: Yes Plan: Continue ertapenem to complete a course of treatment. She was supposed to complete another 7 days from discharge. (2) Encephalopathy Is this a current diagnosis for this admission?: Yes Plan: She has a very long and extensive home medication list. I reviewed the list and saw prednisone, but I could not find any evidence where she is been on steroids here. I looked through paperwork from her recent hospital admissions, and found indications that she is on daily prednisone. Therefore, I am going to give her some stress dose hydrocortisone, and then after a few days will resume her documented daily dose of prednisone. (3) Chronic diastolic CHF (congestive heart failure) Is this a current diagnosis for this admission?: Yes Plan: She does not appear acutely exacerbated at this time, we will continue her home medications. (4) Bedbound Is this a current diagnosis for this admission?: Yes Plan: Continue to turn her every 2 hours to reduce risk of pressure sore (5) Acute kidney injury Is this a current diagnosis for this admission?: Yes Plan: Resolved (6) Adrenal insufficiency Is this a current diagnosis for this admission?: Yes Plan: As noted above - Time Time Spent with patient: 25-34 minutes
[2018-07-08] MEDS: OXYCODONE HCL IR 5 MG TABLET PO PRN (17:24)
[2018-07-08] MEDS: HYDROCORTISONE SOD SUCCINATE INJ/PF 100 MG/2 ML SDV IV SCH (22:19)
[2018-07-08] MEDS: SENNOSIDES/DOCUSATE 8.6-50 MG 1 EACH TABLET PO SCH (22:20)
[2018-07-08] MEDS: MELATONIN 5 MG TABLET PO SCH (22:20)
[2018-07-09] MEDS: LEVALBUTEROL HCL NEB 0.63 MG/3 ML AMPUL NEB SCH ×4 (01:36→20:30)
[2018-07-09] MEDS: HYDROCORTISONE SOD SUCCINATE INJ/PF 100 MG/2 ML SDV IV SCH ×2 (05:44→13:40)
[2018-07-09] MEDS: HEPARIN SOD (PORCINE) 5,000 UNIT/ML 1 ML SYRINGE SUBCUT SCH ×2 (05:44→13:41)
[2018-07-09] MEDS: PREGABALIN 75 MG CAPSULE PO SCH ×2 (05:45→13:41)
[2018-07-09] MEDS: HYDRALAZINE HCL 25 MG TABLET PO SCH ×2 (05:49→13:41)
[2018-07-09] MEDS: DILTIAZEM HCL 30 MG TABLET PO SCH ×2 (05:49→13:41)
[2018-07-09] MEDS: ACETYLCYSTEINE 20% SOLN 800 MG/4 ML VIAL.NEB NEB SCH ×2 (08:41→20:30)
[2018-07-09] MEDS ORDERED: FENTANYL 25 MCG/HR PATCH.TD72 TD SCH (10:00)
[2018-07-09] MEDS: FUROSEMIDE 40 MG TABLET PO SCH ×2 (10:23→17:47)
[2018-07-09] MEDS: FAMOTIDINE 20 MG TABLET PO SCH (10:23)
[2018-07-09] MEDS: ROFLUMILAST 500 MCG TABLET PO SCH (10:23)
[2018-07-09] MEDS: RANOLAZINE 500 MG TAB.SR.12H PO SCH (10:23)
[2018-07-09] MEDS: BUSPIRONE HCL 10 MG TABLET PO SCH (10:23)
[2018-07-09] MEDS: ASPIRIN 81 MG TABLET, CHEWABLE PO SCH (10:23)
[2018-07-09] MEDS: GUAIFENESIN 600 MG TABLET.SA PO SCH (10:23)
[2018-07-09] MEDS: ASCORBIC ACID 500 MG TABLET PO SCH ×2 (10:24→17:47)
[2018-07-09] MEDS: FERROUS SULFATE 325 MG TABLET PO SCH ×2 (10:24→17:47)
[2018-07-09] MEDS: TAMSULOSIN HCL 0.4 MG CAP.SR.24H PO SCH (10:24)
[2018-07-09] MEDS: CETIRIZINE 10 MG TABLET PO SCH (10:24)
[2018-07-09] MEDS: DULOXETINE HCL 30 MG CAPSULE.DR PO SCH (10:25)
[2018-07-09] MEDS: METOPROLOL SUCCINATE 25 MG TAB.SR.24H PO SCH (10:25)
[2018-07-09] MEDS: DOCUSATE SODIUM 100 MG CAPSULE PO SCH ×2 (10:25→17:47)
[2018-07-09] MEDS: POTASSIUM CHLORIDE 10 MEQ CAPSULE.ER PO SCH (10:25)
[2018-07-09] MEDS: POLYETHYLENE GLYCOL 3350 POWDER 17 GM/1 PACKET PO SCH (10:26)
[2018-07-09] MEDS: CARBOXYMETHYLCELLULOSE SOD 0.5% 0.4 ML DROPERETTE OU SCH ×3 (10:27→17:48)
[2018-07-09] MEDS: FLUTICASONE/SALMETEROL DISKUS 500-50 MCG/DOSE IH SCH (10:28)
[2018-07-09] MEDS: INSULIN DETEMIR 100 UNIT/ML 3 ML PEN SUBCUT SCH (10:28)
[2018-07-09] MEDS: TIOTROPIUM BROMIDE DPI 5 CAP/KIT (18 MCG/CAP) IH SCH (10:45)
--- NOTE | 2018-07-09 17:34 | PDOC TRANSFER SUMMARY ---
General - Admit/Disc Date/PCP Admission Date/Primary Care Provider: 07/02/18 01:18 Discharge Date: 07/09/18 - Discharge Diagnosis (1) Complicated UTI (urinary tract infection) Is this a current diagnosis for this admission?: Yes Summary: She was found to have a polymicrobial UTI with Klebsiella and a Proteus that had multiple antibiotic resistances. It was decided to treat her with a course of ertapenem. She has 5 more days of that to complete. She has a PICC line in place and will complete the course at the alf facility. (2) Encephalopathy Is this a current diagnosis for this admission?: Yes Summary: She was on 20 mg of prednisone a day according to records. She confirmed that she is on prednisone every day, but she is not sure the dose. Her prednisone was not continued on admission. Initially she appeared over sedated, and her pain medicine was decreased, especially her Duragesic patch which was cut down to 25 mcg. She was given a dose of IV Solu-Cortef and after couple doses of that her mental status improved substantially. She will go back on her prednisone after having gotten a full day of IV Solu-Cortef. (3) Chronic diastolic CHF (congestive heart failure) Is this a current diagnosis for this admission?: Yes Summary: This was not acutely exacerbated. She will continue her home medications. (4) Bedbound Is this a current diagnosis for this admission?: Yes Summary: We continue to turn her every 2 hours in an attempt to prevent bedsores (5) Acute kidney injury Is this a current diagnosis for this admission?: Yes Summary: This resolved with some IV fluids and treatment of her underlying condition. (6) Adrenal insufficiency Is this a current diagnosis for this admission?: Yes Summary: As noted above, she responded to Solu-Cortef and she will go back on her usual prednisone dose. - Additional Information Resuscitation Status: Do Not Resuscitate Discharge Diet: Cardiac, Diabetic Discharge Activity: Supervised Activity Prescriptions: Ertapenem Sodium [Invanz Inj 1 gm Vial] 1 gm IV-INFUSE DAILY #5 vial Fentanyl [Duragesic 25 mcg/hr Transdermal Patch] 1 each TD Q3D #3 patch.td72 Oxycodone HCl [Oxy-Ir 5 mg Tablet] 5 mg PO Q8HP PRN #10 tablet PRN Reason: For Pain Home Medications: Acetaminophen [Tylenol 325 mg Tablet] 650 mg PO Q4HP PRN 09/09/17 Acetylcysteine [Mucomist 10% Neb 400 mg/4 mL Vial] 400 mg NEB RTQ6 09/09/17 Ascorbic Acid [Vitamin C 500 mg Tablet] 500 mg PO BID 09/09/17 Aspirin [Aspirin 81 mg Chewable Tablet] 81 mg PO DAILY 09/09/17 Benzocaine/Menthol [Chloraseptic Sore Throat Lozenge] 1 ru PO Q1HP PRN 09/09/17 Budesonide [Pulmicort 180 mcg Flexhaler] 2 puff IH Q12 09/09/17 Buspirone HCl [Buspar 5 mg Tablet] 5 mg PO Q12 09/09/17 Carboxymethylcellulose Sodium [Refresh Plus 0.5% Oph Soln 0.4 ml Droperette] 1 d rop OU QID 09/09/17 Duloxetine HCl [Cymbalta] 90 mg PO DAILY 09/09/17 Ergocalciferol (Vitamin D2) [Drisdol 50,000 unit (1.25MG) Capsule] 50,000 unit PO [id number] 09/09/17 Ferrous Sulfate [Feosol 325 mg Tablet] 325 mg PO BID 09/09/17 Fluticasone/Salmeterol [Advair 500-50 Diskus 14 Dose/Diskus] 1 puff IH Q12 09/09/17 Hydralazine HCl [Apresoline 25 mg Tablet] 25 mg PO Q8 09/09/17 Insulin Lispro [Humalog Insulin (Lispro) 100 unit/mL] 0 units SQ .SLIDING SCALE 09/09/17 Ipratropium/Albuterol Sulfate [Iprat-Albut 0.5-3(2.5) mg/3 ml] 3 ml NEB [id number] 09/09/17 Lactulose [Enulose 10 gm/15 mL Oral Solution] 15 ml PO BIDP PRN 09/09/17 Levalbuterol HCl [Xopenex Neb 0.63 mg/3 ml Ampul] 0.63 mg NEB RTQ8 09/09/17 Magnesium Hydroxide [Milk of Magnesia 30 ml Udcup] 30 ml PO DAILYP PRN 09/09/17 Melatonin 10 mg PO QHS 09/09/17 Nitroglycerin [Nitrostat] 0.4 mg SL Q5MP PRN 09/09/17 Omeprazole 20 mg PO Q6AM 09/09/17 Polyethylene Glycol 3350 [Miralax Powder 17 gm/Packet] 17 gm PO DAILY 09/09/17 Ranitidine HCl [Zantac 150 mg Tablet] 150 mg PO BID 09/09/17 Ranolazine [Ranexa 500 mg Tab.sr] 500 mg PO Q12 09/09/17 Roflumilast [Daliresp 500 mcg Tablet] 500 mcg PO DAILY 09/09/17 Sennosides/Docusate 8.6-50 mg [Senna Plus Tablet] 1 tab PO QHS 09/09/17 Tamsulosin HCl [Flomax 0.4 mg Cap.sr] 0.4 mg PO DAILY 09/09/17 Tiotropium [place] [Spiriva Handihaler 5 Cap/Kit (18 Mcg/Cap)] 1 cap IH DAILY 0 09/09/17 Docusate Sodium [Colace 100 mg Capsule] 100 mg PO BID capsule 09/16/17 Cetirizine HCl [Zyrtec 10 mg Tablet] 10 mg PO DAILY 04/08/18 Guaifenesin [Mucinex] 600 mg PO Q12 04/08/18 Insulin Detemir [Levemir Flextouch] 32 units SQ DAILY #1 insuln.pen 04/13/18 Baclofen 10 mg PO Q8HP PRN 06/03/18 Linaclotide [Linzess 145 Mcg Capsule] 145 mcg PO [id number] 06/03/18 Potassium Chloride [K-Tab ER] 40 meq PO DAILY 06/03/18 Promethazine HCl [Phenergan 25 mg Tablet] 12.5 mg PO Q4HP PRN 06/03/18 Furosemide [Lasix 40 mg Tablet] 40 mg PO BID 06/06/18 Evening [place] Oil 500 mg PO TID 07/02/18 Pregabalin [Lyrica 25 mg Capsule] 25 mg PO Q8 07/02/18 Diltiazem HCl [Cardizem 30 mg Tablet] 30 mg PO Q8 tablet 07/09/18 Ertapenem Sodium [Invanz Inj 1 gm Vial] 1 gm IV-INFUSE DAILY #5 vial 07/09/18 Fentanyl [Duragesic 25 mcg/hr Transdermal Patch] 1 each TD Q3D #3 patch.td72 07/09/18 Metoprolol Succinate [Toprol Xl 25 mg Tab.sr] 25 mg PO DAILY tab.sr.24h 07/09/18 Oxycodone HCl [Oxy-Ir 5 mg Tablet] 5 mg PO Q8HP PRN #10 tablet 07/09/18 Prednisone [Deltasone 20 mg Tablet] 20 mg PO DAILY #0 07/09/18 History of Present Illness Admission Date/PCP: 07/02/18 01:18 History of Present Illness: PORSHA WALDRON is a 73 year old female old female with a past medical history including chronic pain, bedbound state, atrial fibrillation, congestive heart failure, insulin dependent diabetes, coronary artery disease, deep vein thrombosis with IVC filter, COPD, C. 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 Patient presents after 3 hours of fever and diffuse pain, she is found to have pyuria and ordered a ertapenem as recommended by infectious disease consultation of May 2018. She is referred to the hospitalist for admission. Hospital Course Hospital Course: As noted above, she was started on ertapenem for her pyuria as was previously recommended by infectious disease last month. Her fever resolved and a couple days ago the team was thinking of discharging her home, but she was so somnolent it was decided not to do so, she was also having some hallucinations. I noted yesterday that she had prednisone on her home medication list. After some searching of the medical record, I decided that she was probably on this and that it was a current medication, so I started her on stress dose hydrocortiso ne. Today she had perked up and her mental status is back to normal. We had also cut down her Duragesic patch a couple of days ago. Her oxycodone was also held. That was actually the first thing she asked me about today. She is got a full day of stress dose steroids and so she can go back on her usual dose of prednisone. She has about 5 more days of antibiotic that she needs. She has a PICC line in place and will complete her course of Invanz at her alf facility. Her comorbid conditions were managed with her home medications were not acutely exacerbated during this hospitalization. Her labs and examination were reassuring she was discharged today back to the alf facility. Physical Exam Vital Signs: Temp Pulse Resp BP Pulse Ox 98.1 F 88 18 127/68 H 99 07/09/18 08:58 07/09/18 14:00 07/09/18 13:59 07/09/18 08:58 07/09/18 13:59 Intake & Output 07/08/18 07/09/18 07/10/18 06:59 06:59 06:59 Intake Total 387 500 Output Total 1225 1275 Balance -838 -775 Weight 84 kg 87 kg General appearance: PRESENT: no acute distress, cooperative, disheveled, morbidly obese Respiratory exam: PRESENT: symmetrical, unlabored. ABSENT: accessory muscle use, prolonged expiratory phas, rhonchi, tachypnea, wheezes Cardiovascular exam: PRESENT: RRR, +S1, +S2, systolic murmur - 2 out of 6 sy stolic murmur Vascular exam: PRESENT: normal capillary refill GI/Abdominal exam: PRESENT: normal bowel sounds, soft. ABSENT: distended, guarding, rebound, tenderness Extremities exam: ABSENT: clubbing, pedal edema Musculoskeletal exam: ABSENT: dislocation, tenderness Neurological exam: PRESENT: alert, awake, oriented to person, oriented to place, oriented to time, oriented to situation Psychiatric exam: PRESENT: flat affect Skin exam: PRESENT: dry, warm Results Laboratory Results: 07/08/18 14:54 07/08/18 14:54 07/03/18 13:58 NT-Pro-B Natriuret Pep 249 Impressions: Chest X-Ray 07/01/18 19:54 IMPRESSION: HEART ENLARGED WITHOUT FAILURE. NO OTHER SIGNIFICANT RADIOGRAPHIC FINDING IN THE CHEST. Chest CT 07/01/18 20:52 IMPRESSION: Mild wall thickening of the urinary bladder with a Barton catheter in place. Correlate with urinalysis to exclude UTI. Abdomen/Pelvis CT 07/01/18 20:53 IMPRESSION: Mild wall thickening of the urinary bladder with a Barton catheter in place. Correlate with urinalysis to exclude UTI. Transfer Plan - Time Spent with Patient Time spent with patient: Greater than 30 Minutes Qualifiers - * PATIENT BEING DISCHARGED WITH ANY OF THE FOLLOWING DIAGNOSIS: No
[2018-07-09] MEDS: ACETAMINOPHEN 325 MG TABLET PO PRN (17:46)
[2018-07-09] MEDS: IPRATROPIUM/ALBUTEROL 0.5-2.5 MG/3 ML AMPUL NEB PRN (20:30)
[2018-07-09 21:33] VITALS: BP 123/84
[2018-07-27] MEDS ORDERED: ERGOCALCIFEROL (VITAMIN D2) 50000 UNIT (1.25 MG) CAPSULE PO SCH (10:00)
== END 2018-07-09 21:27 | DRG 690 ==
LOC: ER 19:31 → EH 07-02 01:18 → 3S 07-02 03:58
PROVIDERS: ADMIT Internal Medicine; ATTEND Internal Medicine
PROC: 5A09357 Assistance with Respiratory Ventilation, Less than 24 Consecutive Hours, Continuous Positive Airway Pressure (ICD-10-PCS; principal; 2018-07-02)
DX: N39.0 Urinary tract infection, site not specified (principal); N17.9 Acute kidney failure, unspecified; I50.32 Chronic diastolic (congestive) heart failure; G93.40 Encephalopathy, unspecified; E27.40 Unspecified adrenocortical insufficiency; J44.9 Chronic obstructive pulmonary disease, unspecified; I11.0 Hypertensive heart disease with heart failure; I48.2 Chronic atrial fibrillation; E11.9 Type 2 diabetes mellitus without complications; B96.1 Klebsiella pneumoniae [K. pneumoniae] as the cause of diseases classified elsewhere; B96.4 Proteus (mirabilis) (morganii) as the cause of diseases classified elsewhere; G89.29 Other chronic pain; I25.10 Atherosclerotic heart disease of native coronary artery without angina pectoris; E78.5 Hyperlipidemia, unspecified; G47.30 Sleep apnea, unspecified; K21.9 Gastro-esophageal reflux disease without esophagitis; K44.9 Diaphragmatic hernia without obstruction or gangrene; M19.90 Unspecified osteoarthritis, unspecified site; M79.7 Fibromyalgia; M10.9 Gout, unspecified; F32.9 Major depressive disorder, single episode, unspecified; D50.9 Iron deficiency anemia, unspecified; E66.9 Obesity, unspecified; R44.1 Visual hallucinations; Z66 Do not resuscitate; Z74.01 Bed confinement status; Z86.718 Personal history of other venous thrombosis and embolism; I25.2 Old myocardial infarction; Z86.711 Personal history of pulmonary embolism; Z86.14 Personal history of Methicillin resistant Staphylococcus aureus infection; Z79.82 Long term (current) use of aspirin; Z79.4 Long term (current) use of insulin; Z79.52 Long term (current) use of systemic steroids; Z68.32 Body mass index [BMI] 32.0-32.9, adult
CPT/HCPCS: 36415; 71045; 71260; 74177; 80048; 80053; 81001; 82607; 82728; 82746; 82803; 82962; 83540; 83550; 83605; 83735; 83880; 85025; 85045; 87040; 87086; 87088; 87186; 87804; 93005; 93010; 94660; 96365; 96375; 99285; J1200; J1335; J1644; J1720; J1815; J2405; J2765; J3490; J7030; J7614; J7620

== ENCOUNTER 2018-09-30 12:17 | Observation (INO) | payer MEDICARE, MEDICAID ==
[2018-09-30 12:49] LABS: ABSOLUTE BASOPHILS # (AUTO) 0.1 10^3/uL (0.0-0.2); ABSOLUTE EOSINOPHILS # (AUTO) 0.1 10^3/uL (0.0-0.6); ABSOLUTE NEUT (AUTO) 10.4 10^3/uL (1.7-8.2); BASOPHILS % (AUTO) 0.5 % (0-2); EOSINOPHILS % (AUTO) 0.9 % (0-6); HEMOGLOBIN 11.4 g/dL (12.0-15.5); LYMPHOCYTES % (AUTO) 8.1 % (13-45); MEAN CORPUSCULAR HEMOGLOBIN 29.8 pg (27.0-33.4); MEAN CORPUSCULAR HGB CONC 33.6 g/dL (32.0-36.0); MEAN CORPUSCULAR VOLUME 89 fl (80-97); MONOCYTES % (AUTO) 7.7 % (3-13); PLATELET COUNT 185 10^3/uL (150-450); RED BLOOD COUNT 3.83 10^6/uL (3.72-5.28); RED CELL DISTRIBUTION WIDTH 15.5 % (11.5-14.0); SEGMENTED NEUTROPHILS % (AUTO) 82.8 % (42-78); TOTAL CELLS COUNTED % (AUTO) 100 %; WHITE BLOOD COUNT 12.6 10^3/uL (4.0-10.5)
[2018-09-30 12:53] LABS: VENOUS BLOOD BASE EXCESS 5.2 mmol/L; VENOUS BLOOD HCO3 31.6 mmol/L (20-32); VENOUS BLOOD PCO2 53.8 mmHg (35-63); VENOUS BLOOD PH 7.39 (7.30-7.42)
[2018-09-30 13:01] LABS: INTERNATIONAL RATION (INR) 0.98; PROTHROMBIN TIME 13.5 SEC (11.4-15.4)
[2018-09-30] MEDS ORDERED: IPRATROPIUM/ALBUTEROL 0.5-2.5 MG/3 ML AMPUL NEB ONE (13:05)
--- NOTE | 2018-09-30 13:07 | ER Document Report ---
ED Respiratory Problem - General Chief Complaint: Breathing Difficulty Stated Complaint: DIFFICULTY BREATHING Time Seen by Provider: 09/30/18 13:04 Notes: Patient says she is having increasing breathing difficulty. Says she feels as if she is "drowning". Says she has had bronchitis for the past couple months with a chronic cough, sometimes productive, sometimes not. Has a history of COPD and is on home nebulizers and oxygen at 3 L. Denies chest pain although it feels tight at times. She is think she has had a low-grade fever. PMH: CHF, IDDM, hypertension. Patient lives in a local retirement ([place]) TRAVEL OUTSIDE OF THE [place] IN LAST 30 DAYS: No - Related Data Allergies/Adverse Reactions: Sulfa (Sulfonamide Antibiotics) Allergy (Intermediate, Verified 02/03/18 09:37) adhesive tape Allergy (Verified 02/03/18 09:37) atorvastatin calcium [From Lipitor] Allergy (Verified 02/03/18 09:37) celecoxib [From Celebrex] Allergy (Verified 02/03/18 09:37) Past Medical History - Social History Smoking Status: Never Smoker Frequency of alcohol use: None Drug Abuse: None Family History: Reviewed & Not Pertinent, Arthritis, CAD, CVA, DM, Hyperlipidemia, Hypertension Patient has suicidal ideation: No Patient has homicidal ideation: No - Past Medical History Cardiac Medical History: Reports: Hx Atrial Fibrillation, Hx Congestive Heart Failure - Diastolic dysfunction, Hx Coronary Artery Disease, Hx DVT, Hx Heart Attack, Hx Hypercholesterolemia, Hx Hypertension - essential, Hx Pulmonary Embolism, Hx Heart Murmur Denies: Hx Peripheral Vascular Disease Pulmonary Medical History: Reports: Hx Asthma, Hx Bronchitis, Hx COPD, Hx Pneumonia - Recurrent MRSA pneumonia., Hx Respiratory Failure - Chronic, Hx Sleep Apnea - Uses C Pap Denies: Hx Tuberculosis Neurological Medical History: Denies: Hx Seizures Endocrine Medical History: Reports: Hx Diabetes Mellitus Type 1, Hx Diabetes Mellitus Type 2 Renal/ Medical History: Reports: Hx Renal Insufficiency GI Medical History: Reports: Hx Gastroesophageal Reflux Disease, Hx Hiatal Hernia Musculoskeletal Medical History: Reports Hx Arthritis, Reports Hx Fibromyalgia, Reports Hx Gout, Reports Hx Muscle Weakness Skin Medical History: Denies Hx Eczema, Denies Hx Psoriasis Psychiatric Medical History: Reports: Hx Anxiety, Hx Depression Infectious Medical History: Reports: Hx C-Diff, Hx MRSA. Denies: Hx Hepatitis Past Surgical History: Reports: Hx Appendectomy, Hx Cholecystectomy, Hx Hysterectomy, Hx Orthopedic Surgery - Multiple left hip procedures, 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 - Immunizations Hx Diphtheria, Pertussis, Tetanus Vaccination: Yes Hx Pneumococcal Vaccination: 05/20/13 Review of Systems - Review of Systems Notes: REVIEW OF SYSTEMS: CONSTITUTIONAL : Thinks she may have had a low-grade fever. EENT: Denies eye, ear, nose or mouth or throat pain or other symptoms. CARDIOVASCULAR: Denies chest pain. RESPIRATORY: See HPI. GASTROINTESTINAL: Denies abdominal pain or nausea, vomiting, or diarrhea. GENITOURINARY: Denies difficulty or painful urinating, urinary frequency, blood in urine. MUSCULOSKELETAL: Denies back or neck pain. Denies joint pain or swelling. SKIN: Denies rash or skin lesions. NEUROLOGICAL: Denies LOC or altered mental status. Denies headache. Denies sensory loss or motor deficits. ALL OTHER SYSTEMS REVIEWED AND NEGATIVE. Physical Exam - Vital signs Vitals: Pulse Ox 95 09/30/18 12:33 Interpretation: Normal Notes: PHYSICAL EXAMINATION: GENERAL: Appears sleepy, but awakens easily to voice or tactile stimulation. Frequent, hacking cough HEAD: Atraumatic, normocephalic. EYES: Pupils equal round and reactive to light, extraocular movements intact. ENT: oropharynx clear without exudates. Moist mucous membranes. NECK: Normal range of motion, supple. LUNGS: Breath sounds with scattered rhonchi and wheezes. HEART: Regular rate and rhythm without murmurs. ABDOMEN: Soft, nontender. No guarding or rebound. No masses. BACK: No tenderness throughout entire back. EXTREMITIES: Normal range of motion without pain. No pitting edema. NEUROLOGICAL: Normal speech, normal gait. Normal sensory, motor, and reflex exams. Awake, alert, and oriented x3. PSYCH: Normal mood, normal affect. SKIN: Warm, dry, no rashes. Course - Vital Signs Vital signs: Temp Pulse Resp BP Pulse Ox 98.0 F 76 20 128/69 H 96 09/30/18 19:20 09/30/18 19:20 09/30/18 19:20 09/30/18 19:20 09/30/18 19:20 - Laboratory Result Diagrams: 09/30/18 12:30 09/30/18 12:30 Laboratory results interpreted by me: 04/08/1909/30/18 09/30/18 12:30 12:30 13:10 WBC 12.6 H Hgb 11.4 L Hct 34.0 L RDW 15.5 H Seg Neutrophils % 82.8 H Lymphocytes % 8.1 L Absolute Neutrophils 10.4 H BUN 32 H Creatinine 1.33 H Est GFR ( Amer) 47 L Est GFR (Non-Af Amer) 39 L Glucose 129 H Urine Nitrite POSITIVE H Urine Urobilinogen 2.0 H Ur Leukocyte Esterase LARGE H Urine Ascorbic Acid 20 H - Diagnostic Test Radiology results interpreted by me: 09/30/18 15:19 Chest x-ray shows no acute pulmonary process. - EKG Interpretation by [place] EKG shows normal: Sinus rhythm Rate: Normal Voltage: Increased voltage, Consistant with LVH Critical Care Note - Critical Care Note Total time excluding time spent on procedures (mins): 30 Discharge - Discharge Clinical Impression: COPD exacerbation, Hypercapnia, COPD exacerbation, UTI (urinary tract infection) Condition: Stable Disposition: ADMITTED INPATIENT Admitting Provider: Hospitalist Unit Admitted: IMCU
[2018-09-30 13:11] LABS: ALANINE AMINOTRANSFERASE 19 U/L (9-52); ALBUMIN 3.8 g/dL (3.5-5.0); ALKALINE PHOSPHATASE 118 U/L (38-126); ANION GAP 10 (5-19); ASPARTATE AMINO TRANSFERASE 16 U/L (14-36); BILIRUBIN,DIRECT 0.2 mg/dL (0.0-0.4); BILIRUBIN,TOTAL 0.6 mg/dL (0.2-1.3); BLOOD UREA NITROGEN 32 mg/dL (7-20); CALCIUM 9.4 mg/dL (8.4-10.2); CARBON DIOXIDE 29 mmol/L (22-30); CHLORIDE 101 mmol/L (98-107); GLUCOSE 129 mg/dL (75-110); POTASSIUM 4.2 mmol/L (3.6-5.0); SODIUM 140.1 mmol/L (137-145); TOTAL PROTEIN 7.1 g/dL (6.3-8.2)
--- NOTE | 2018-09-30 13:29 | EKG REPORT ---
SEVERITY:- ABNORMAL ECG - SINUS RHYTHM MULTIPLE ATRIAL PREMATURE COMPLEXES LEFT ANTERIOR FASCICULAR BLOCK LEFT VENTRICULAR HYPERTROPHY : Confirmed by: Inocencio Aguilar MD 30-Sep-2018 13:29:09
[2018-09-30 13:36] LABS: APPEARANCE,URINE CLEAR; BILIRUBIN,URINE NEGATIVE (NEGATIVE); COLOR,URINE YELLOW; GLUCOSE, URINE NEGATIVE (NEGATIVE); KETONES,URINE NEGATIVE (NEGATIVE); LEUKOCYTE ESTERASE,URINE LARGE (NEGATIVE); NITRITE,URINE POSITIVE (NEGATIVE); PROTEIN,URINE NEGATIVE (NEGATIVE); URINE SPECIFIC GRAVITY 1.008
--- NOTE | 2018-09-30 13:45 | RADIOLOGY REPORT (SQ) ---
EXAM DESCRIPTION: CHEST SINGLE VIEW COMPLETED DATE/TIME: 09/30/2018 1:00 pm REASON FOR STUDY: sepsis protocol COMPARISON: 07/01/2018 EXAM PARAMETERS: NUMBER OF VIEWS: One view. TECHNIQUE: Single frontal radiographic view of the chest acquired. RADIATION DOSE: NA LIMITATIONS: None. FINDINGS: LUNGS AND PLEURA: Chronic mild stable changes. No acute pulmonary consolidation. No pne umothorax or pleural effusion. MEDIASTINUM AND HILAR STRUCTURES: No masses. Contour normal. HEART AND VASCULAR STRUCTURES: Cardiomegaly, unchanged finding. Normal vasculature. BONES: The osseous structures are stable in appearance. Chronic changes at the shoulders bilaterall y. HARDWARE: None in the chest. OTHER: No other significant finding. IMPRESSION: 1. No significant interval changes since the prior study dated 07/01/2018. Cardiomegaly, unchanged finding. 2. Chronic mild stable changes. No acute pulmonary findings. TECHNICAL DOCUMENTATION: JOB ID: [id number] [employer]- All Rights Reserved Reading location - IP/workstation name: [email or web address]
[2018-09-30] MEDS ORDERED: METHYLPREDNISOLONE INJ 125 MG/2 ML SDV IV ONE (13:46)
[2018-09-30] MEDS ORDERED: CEFTRIAXONE 1 GM/D5W RTU 1 GM/50 ML RTUPB IV ONE (15:13)
[2018-09-30] MEDS ORDERED: PREGABALIN 50 MG CAPSULE PO ONE (15:24)
[2018-09-30] MEDS ORDERED: BACLOFEN 10 MG TABLET PO ONE (15:24)
[2018-09-30] MEDS ORDERED: OXYCODONE HCL IR 5 MG TABLET PO ONE (15:26)
[2018-09-30] MEDS ORDERED: ALBUTEROL SULFATE 0.083% NEB 2.5 MG/3 ML AMPUL NEB PRN (16:03)
[2018-09-30] MEDS ORDERED: ACETAMINOPHEN 325 MG TABLET PO PRN (16:03)
[2018-09-30] MEDS ORDERED: ONDANSETRON HCL INJ/PF 4 MG/2 ML SDV IV PRN (16:03)
[2018-09-30] MEDS ORDERED: IPRATROPIUM/ALBUTEROL 0.5-2.5 MG/3 ML AMPUL NEB PRN (16:03)
--- NOTE | 2018-09-30 16:03 | ADVANCED CARE ---
- Diagnosis (1) COPD exacerbation Diagnosis Current: Yes (2) UTI (urinary tract infection) Diagnosis Current: Yes (3) Acute on chronic renal failure Diagnosis Current: Yes (4) Chronic diastolic CHF (congestive heart failure) Diagnosis Current: Yes Resuscitation Status: Do Not Resuscitate Discussion: 09/30/2018-discussed the advance care plan with the patient she had she said ,has a living will and she also want to be DNR/DNI. Time Spent: More than 10 minutes
[2018-09-30] MEDS ORDERED: PHENAZOPYRIDINE HCL PO PRN (16:12)
[2018-09-30] MEDS ORDERED: PROMETHAZINE HCL 25 MG TABLET PO PRN (16:12)
[2018-09-30] MEDS ORDERED: LACTULOSE PO PRN (16:12)
[2018-09-30] MEDS ORDERED: BACLOFEN 10 MG PO PRN (16:12)
[2018-09-30] MEDS ORDERED: MAGNESIUM HYDROXIDE SUSP 30 ML UDCUP PO PRN (16:12)
[2018-09-30] MEDS ORDERED: (PENDING PHARMACY ID) (Fexofenadine Hcl [Allegra Allergy] 180 MG) PO PRN (16:12)
[2018-09-30] MEDS ORDERED: NITROGLYCERIN 0.4 MG/TAB 25 TAB/BOTTLE SL PRN (16:12)
[2018-09-30] MEDS ORDERED: BENZOCAINE/MENTHOL SORE THROAT LOZENGE PO PRN (16:12)
[2018-09-30] MEDS ORDERED: (PENDING PHARMACY ID) (Fluticasone/Salmeterol 1 PUFF) IH SCH (16:15)
[2018-09-30] MEDS ORDERED: (PENDING PHARMACY ID) (Budesonide [Pulmicort 180 Mcg Flexhaler] 2 PUFF) IH SCH ×2 (16:15→16:30)
[2018-09-30] MEDS ORDERED: (PENDING PHARMACY ID) (Potassium Chloride [K-Tab Er] 40 MEQ) PO SCH (16:15)
[2018-09-30] MEDS ORDERED: (PENDING PHARMACY ID) (Roflumilast [Daliresp 500 Mcg Tablet] 500 MCG) PO SCH (16:15)
[2018-09-30] MEDS ORDERED: (PENDING PHARMACY ID) (Buspirone Hcl [Buspar 5 Mg Tablet] 5 MG) PO SCH (16:15)
[2018-09-30] MEDS ORDERED: (PENDING PHARMACY ID) (Linaclotide 145 MCG) PO SCH (16:15)
[2018-09-30] MEDS ORDERED: INSULIN DETEMIR 32 UNIT SQ SCH (16:15)
[2018-09-30] MEDS ORDERED: (PENDING PHARMACY ID) (Mirabegron [Myrbetriq] 25 MG) PO SCH ×2 (16:15→17:00)
[2018-09-30] MEDS ORDERED: (PENDING PHARMACY ID) (Guaifenesin [Mucinex] 600 MG) PO SCH (16:15)
[2018-09-30] MEDS ORDERED: LORATADINE 10 MG TABLET PO PRN (16:31)
[2018-09-30] MEDS ORDERED: LACTULOSE SYRUP 20 GM/30 ML UDCUP PO PRN (16:35)
--- NOTE | 2018-09-30 16:46 | PDOC H&P ---
History of Present Illness Admission Date/PCP: 09/30/18 15:39 K V DEBORAH HOLLIDAY MD Patient complains of: Came in with shortness of breath. History of Present Illness: PORSHA WALDRON is a 73 year old female history of chronic UTIs, congestive heart failure, COPD on BiPAP at [facility], hypertension diabetes mellitus came to the emergency room with complaints of increasing shortness of breath from last night. VBG was done in the ER , PCO2 is 54 medical consult was called for admission for COPD exacerbation. At the time of examination in the ER patient is complaining of increasing shortness of breath from yesterday she is also saying she has chronic bronchitis for the last couple of weeks taking Augmentin at [facility]. Patient is on contact isolation in the ER. Patient denies any fevers denies any cough denies any vomiting diarrhea but complains of nausea because of the Augmentin. Denies any problems with urination because she has indwelling Fo brianda's catheter. Wants to be DNR/DNI. Patient is going to be admitted to the medical floor. Past Medical History Cardiac Medical History: Reports: Atrial Fibrillation, Congestive Heart Failure - Diastolic dysfunction, Coronary Artery Disease, DVT, Myocardial Infarction, Hyperlipidema, Hypertension - essential, Pulmonary Embolism, Heart Murmur Denies: Peripheral Vascular Disease Pulmonary Medical History: Reports: Asthma, Bronchitis, Chronic Obstructive Pulmonary Disease (COPD), Pneumonia - Recurrent MRSA pneumonia., Respiratory Failure - Chronic, Sleep Apnea - Uses C Pap Denies: Tuberculosis Neurological Medical History: Denies: Seizures Endocrine Medical History: Reports: Diabetes Mellitus Type 1, Diabetes Mellitus Type 2 Denies: Hyperthyroidism, Hypothyroidism GI Medical History: Reports: Gastroesophageal Reflux Disease, Hiatal Hernia Denies: Cirrhosis, Hepatitis Musculoskeltal Medical History: Reports: Arthritis, Fibromyalgia, Gout Skin Medical History: Denies: Eczema, Psoriasis Psychiatric Medical History: Reports: Depression Hematology: Reports: Anemia Infectious Medical History: Reports: Clostridium Difficile, Methicillin- Resistant Staph Aureus Past Surgical History Past Surgical History: Reports: Appendectomy, Cholecystectomy, Hysterectomy, Orthopedic Surgery - Multiple left hip procedures, 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 Social History Information Source: Patient Lives with: Jail Smoking Status: Never Smoker Frequency of Alcohol Use: None Hx Recreational Drug Use: No Drugs: None Hx Prescription Drug Abuse: No - Advance Directive Resuscitation Status: Do Not Resuscitate Family History Family History: Reviewed & Not Pertinent, Arthritis, CAD, CVA, DM, Hyperlipidemia, Hypertension Parental Family History Reviewed: Yes - Sister has a lung cancer. Children Family History Reviewed: Yes Sibling(s) Family History Reviewed.: Yes Medication/Allergy Home Medications: Acetaminophen [Tylenol 325 mg Tablet] 650 mg PO Q4HP PRN 09/09/17 Acetylcysteine [Mucomist 10% Neb 400 mg/4 mL Vial] 400 mg NEB RTQ6 09/09/17 Ascorbic Acid [Vitamin C 500 mg Tablet] 500 mg PO BID 09/09/17 Aspirin [Aspirin 81 mg Chewable Tablet] 81 mg PO DAILY 09/09/17 Benzocaine/Menthol [Chloraseptic Sore Throat Lozenge] 1 ru PO Q1HP PRN 09/09/17 Budesonide [Pulmicort 180 mcg Flexhaler] 2 puff IH Q12 09/09/17 Buspirone HCl [Buspar 5 mg Tablet] 5 mg PO Q12 09/09/17 Carboxymethylcellulose Sodium [Refresh Plus 0.5% Oph Soln 0.4 ml Droperette] 1 drop OU QID 09/09/17 Duloxetine HCl [Cymbalta] 90 mg PO DAILY 09/09/17 Ergocalciferol (Vitamin D2) [Drisdol 50,000 unit (1.25MG) Capsule] 50,000 unit PO [id number] 09/09/17 Ferrous Sulfate [Feosol 325 mg Tablet] 325 mg PO BID 09/09/17 Fluticasone/Salmeterol [Advair 500-50 Diskus 14 Dose/Diskus] 1 puff IH Q12 09/09/17 Hydralazine HCl [Apresoline 25 mg Tablet] 25 mg PO Q8 09/09/17 Insulin Lispro [Humalog Insulin (Lispro) 100 unit/mL] 0 units SQ .SLIDING SCALE 09/09/17 Ipratropium/Albuterol Sulfate [Iprat-Albut 0.5-3(2.5) mg/3 ml] 3 ml NEB [id number] 09/09/17 Lactulose [Enulose 10 gm/15 mL Oral Solution] 15 ml PO BIDP PRN 09/09/17 Levalbuterol HCl [Xopenex Neb 0.63 mg/3 ml Ampul] 0.63 mg NEB RTQ8 09/09/17 Magnesium Hydroxide [Milk of Magnesia 30 ml Udcup] 30 ml PO DAILYP PRN 09/09/17 Melatonin 10 mg PO QHS 09/09/17 Nitroglycerin [Nitrostat] 0.4 mg SL Q5MP PRN 09/09/17 Omeprazole 20 mg PO Q6AM 09/09/17 Polyethylene Glycol 3350 [Miralax Powder 17 gm/Packet] 17 gm PO DAILY 09/09/17 Ranitidine HCl [Zantac 150 mg Tablet] 150 mg PO Q12 09/09/17 Ranolazine [Ranexa 500 mg Tab.sr] 500 mg PO Q12 09/09/17 Roflumilast [Daliresp 500 mcg Tablet] 500 mcg PO DAILY 09/09/17 Sennosides/Docusate 8.6-50 mg [Senna Plus Tablet] 1 tab PO QHS 09/09/17 Tiotropium Kimberly [Spiriva Handihaler 5 Cap/Kit (18 Mcg/Cap)] 1 cap IH DAILY 09/09/17 Docusate Sodium [Colace 100 mg Capsule] 100 mg PO BID capsule 09/16/17 Guaifenesin [Mucinex] 600 mg PO Q12 04/08/18 Insulin Detemir [Levemir Flextouch] 32 units SQ DAILY #1 insuln.pen 04/13/18 Baclofen 10 mg PO Q8HP PRN 06/03/18 Linaclotide [Linzess 145 Mcg Capsule] 145 mcg PO [id number] 06/03/18 Potassium Chloride [K-Tab ER] 40 meq PO DAILY 06/03/18 Promethazine HCl [Phenergan 25 mg Tablet] 12.5 mg PO Q4HP PRN 06/03/18 Furosemide [Lasix 40 mg Tablet] 40 mg PO BID 06/06/18 Evening Vowinckel Oil 500 mg PO TID 07/02/18 Pregabalin [Lyrica 25 mg Capsule] 25 mg PO Q8 07/02/18 Diltiazem HCl [Cardizem 30 mg Tablet] 30 mg PO Q8 tablet 07/09/18 Fentanyl [Duragesic 25 mcg/hr Transdermal Patch] 1 each TD Q3D #3 patch.[id number] 07/09/18 Metoprolol Succinate [Toprol Xl 25 mg Tab.sr] 25 mg PO DAILY tab.sr.24h 07/09/18 Prednisone [Deltasone 20 mg Tablet] 20 mg PO DAILY #0 07/09/18 Amox Tr/Potassium Clavulanate [Augmentin 875-125 mg Tablet] 1 tab PO BID 09/30/18 Benzonatate [Tessalon Perles 100 mg Capsule] 100 mg PO BIDP PRN 09/30/18 Bupropion HCl [Wellbutrin 75 mg Tablet] 75 mg PO DAILY 09/30/18 Diclofenac Sodium [Voltaren] 2 gm TOP Q8HP PRN 09/30/18 Fexofenadine HCl [Shaniqua Allergy] 180 mg PO DAILYP PRN 09/30/18 Fluticasone Propionate [Flonase Nasal [place] 50 Mcg/[place] 16 gm] 1 spray NASL DAILY 09/30/18 Mirabegron [Myrbetriq] 25 mg PO DAILY 09/30/18 Olopatadine HCl [Pataday] 1 drop OU DAILY 09/30/18 Oxycodone HCl [Oxy-Ir 5 mg Tablet] 7.5 mg PO Q8HP PRN 09/30/18 Phenazopyridine HCl [Urinary Pain Relief] 190 mg PO Q8HP PRN 09/30/18 Polymyxin B Sulfate/Tmp [Polytrim Oph Soln 10 ml] 1 drop OD QID 09/30/18 Trazodone HCl [Desyrel 50 mg Tablet] 25 mg PO QHS 09/30/18 Allergies/Adverse Reactions: Sulfa (Sulfonamide Antibiotics) Allergy (Intermediate, Verified 02/03/18 09:37) adhesive tape Allergy (Verified 02/03/18 09:37) atorvastatin calcium [From Lipitor] Allergy (Verified 02/03/18 09:37) celecoxib [From Celebrex] Allergy (Verified 02/03/18 09:37) Review of Systems Constitutional: PRESENT: fatigue, weakness. ABSENT: fever(s), headache(s) Eyes: ABSENT: visual disturbances Ears: ABSENT: hearing changes Nose, Mouth, and Throat: ABSENT: sore throat Cardiovascular: PRESENT: dyspnea on exertion, palpitations Respiratory: PRESENT: dyspnea Gastrointestinal: ABSENT: abdominal pain, constipation, diarrhea, hematemesis, hematochezia, nausea, vomiting Genitourinary: ABSENT: dysuria, hematuria Musculoskeletal: ABSENT: joint swelling Neurological: ABSENT: abnormal gait, abnormal speech, confusion, dizziness, focal weakness, syncope Psychiatric: ABSENT: anxiety, depression, homidical ideation, suicidal ideation Physical Exam Vital Signs: Temp Pulse Resp BP Pulse Ox 98.8 F 20 121/63 96 09/30/18 15:15 09/30/18 14:01 09/30/18 14:01 09/30/18 13:01 Intake & Output 09/29/18 09/30/18 10/01/18 06:59 06:59 06:59 Weight 87.9 kg General appearance: PRESENT: mild distress Head exam: PRESENT: atraumatic Eye exam: PRESENT: PERRLA Mouth exam: PRESENT: moist, tongue midline Neck exam: ABSENT: carotid bruit, JVD, lymphadenopathy, thyromegaly Respiratory exam: PRESENT: crackles, decreased breath sounds, rhonchi, tachypnea, wheezes Cardiovascular exam: PRESENT: tachycardia Pulses: PRESENT: normal dorsalis pedis pul GI/Abdominal exam: PRESENT: normal bowel sounds, soft. ABSENT: distended, gua rding, mass, organolmegaly, rebound, tenderness Extremities exam: PRESENT: full ROM. ABSENT: calf tenderness, clubbing, pedal edema Neurological exam: PRESENT: alert, awake, oriented to person, oriented to place, oriented to time, oriented to situation, CN II-XII grossly intact. ABSENT: motor sensory deficit Psychiatric exam: PRESENT: appropriate affect, normal mood. ABSENT: homicidal ideation, suicidal ideation Results Laboratory Results: 09/30/18 12:30 09/30/18 12:30 09/30/18 09/30/18 09/30/18 12:30 12:30 12:30 WBC 12.6 H RBC 3.83 Hgb 11.4 L Hct 34.0 L MCV 89 MCH 29.8 MCHC 33.6 RDW 15.5 H Plt Count 185 Seg Neutrophils % 82.8 H Lymphocytes % 8.1 L Monocytes % 7.7 Eosinophils % 0.9 Basophils % 0.5 Absolute Neutrophils 10.4 H Absolute Lymphocytes 1.0 Absolute Monocytes 1.0 Absolute Eosinophils 0.1 Absolute Basophils 0.1 VBG pH VBG pCO2 VBG HCO3 VBG Base Excess Sodium 140.1 Potassium 4.2 Chloride 101 Carbon Dioxide 29 Anion Gap 10 BUN 32 H Creatinine 1.33 H Est GFR ( Amer) 47 L Est GFR (Non-Af Amer) 39 L Glucose 129 H Lactic Acid 1.3 Calcium 9.4 Total Bilirubin 0.6 AST 16 ALT 19 Alkaline Phosphatase 118 Total Protein 7.1 Albumin 3.8 Urine Color Urine Appearance Urine pH Ur Specific [place] Urine Protein Urine Glucose (UA) Urine Ketones Urine Blood Urine Nitrite Ur Leukocyte Esterase Urine WBC (Auto) Urine RBC (Auto) 09/30/18 09/30/18 12:30 13:10 WBC RBC Hgb Hct MCV MCH MCHC RDW Plt Count Seg Neutrophils % Lymphocytes % Monocytes % Eosinophils % Basophils % Absolute Neutrophils Absolute Lymphocytes Absolute Monocytes Absolute Eosinophils Absolute Basophils VBG pH 7.39 VBG pCO2 53.8 VBG HCO3 31.6 VBG Base Excess 5.2 Sodium Potassium Chloride Carbon Dioxide Anion Gap BUN Creatinine Est GFR ( Amer) Est GFR (Non-Af Amer) Glucose Lactic Acid Calcium Total Bilirubin AST ALT Alkaline Phosphatase Total Protein Albumin Urine Color YELLOW Urine Appearance CLEAR Urine pH 6.0 Ur Specific [place] 1.008 Urine Protein NEGATIVE Urine Glucose (UA) NEGATIVE Urine Ketones NEGATIVE Urine Blood NEGATIVE Urine Nitrite POSITIVE H Ur Leukocyte Esterase LARGE H Urine WBC (Auto) 22 Urine RBC (Auto) 3 09/30/18 12:30 Troponin I 0.024 Impressions: Chest X-Ray 09/30/18 12:20 IMPRESSION: 1. No significant interval changes since the prior study dated 07/01/2018. Cardiomegaly, unchanged finding. 2. Chronic mild stable changes. No acute pulmonary findings. Assessment and Plan - Diagnosis (1) COPD exacerbation Is this a current diagnosis for this admission?: Yes Plan: 09/30/2018-patient is going to be admitted to medical floor for COPD exacerbation. Patient is going to be DNR/DNI. To continue BiPAP on as-needed basis. Started on IV Solu-Medrol 40 mg every 8 hours, Xopenex and albuterol nebulizations. GI prophylaxis and DVT prophylaxis requested. And is going to be on contact i solation for history of CRE. Patient came in with increased shortness of breath and VBG shows PCO2 of 54. to Do the ABG today. 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 Patient is afebrile. Lactic acid is 1.3. No evidence of any sepsis. Plan to hold off on antibiotics for now. (3) Acute on chronic renal failure Qualifiers: Acute renal failure type: unspecified Chronic kidney disease stage: stage 3 (moderate) Qualified Code(s): N17.9 - Acute kidney failure, unspecified; N18.3 - Chronic kidney disease, stage 3 (moderate); N18.3 - Chronic kidney disease, stage 3 (moderate); N18.3 - Chronic kidney disease, stage 3 (moderate) Is this a current diagnosis for this admission?: No Plan: 09/30/2018 patient is given the history of chronic stage III kidney disease. A 1.33. Kidney function is at baseline. To continue to check the labs on daily basis. (4) Chronic diastolic CHF (congestive heart failure) Is this a current diagnosis for this admission?: No Plan: 09/30/2018-patient has history of chronic diastolic heart failure. Patient is not in fluid overload. Chest x-ray was negative for edema. To check BNP today. (5) Acute and chronic respiratory failure Qualifiers: Respiratory failure complication: hypoxia and hypercapnia Qualified Code(s): J96.21 - Acute and chronic respiratory failure with hypoxia; J96.22 - Acute and chronic respiratory failure with hypercapnia; J96.22 - Acute and chronic respiratory failure with hypercapnia; J96.22 - Acute and chronic respiratory failure with hypercapnia Is this a current diagnosis for this admission?: Yes Plan: 09/30/2018-patient admitted with acute on chronic respiratory failure with hypercapnia. VBG shows PCO2 54 on admission. Patient was on the on the BiPAP in the emergency room. Plan to do the ABG this afternoon. (6) HTN (hypertension) Qualifiers: Hypertension type: essential hypertension Qualified Code(s): I10 - Essential (primary) hypertension Is this a current diagnosis for this admission?: No Plan: 09/30/2018-patient is given the history of hypertension. Blood pressure here in the emergency room is 121/63. Stable. At the [facility] she is on hydralazine 25 mg p.o. every 8 hours, metoprolol 25 mg daily diltiazem 30 mg p.o. every 8 hours plan is to resume those medications. 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 To start her insulin sliding scale in the hospital. She is on Lantus 30 units subcu daily at [facility] plan to resume the medication here. To check hemoglobin A1c in the morning. (9) Morbid obesity Is this a current diagnosis for this admission?: No Plan: 09/30/2018-patient's BMI is more than 35 diet exercise lifestyle modifications are discussed with the patient. Dietary consult was requested. - Time Time Spent with patient: 15-24 minutes Medications reviewed and adjusted accordingly: Yes Anticipated discharge: SNF
[2018-09-30] MEDS ORDERED: PHENAZOPYRIDINE HCL 200 MG TABLET PO PRN (17:06)
[2018-09-30 17:36] LABS: CREATINE KINASE MB 0.96 ng/mL (<4.55); TROPONIN I 0.021 ng/mL
[2018-09-30] MEDS ORDERED: EVENING PRIMROSE OIL 500 MG PO SCH (18:00)
[2018-09-30] MEDS ORDERED: PREDNISONE 20 MG TABLET PO SCH (18:00)
[2018-09-30] MEDS ORDERED: DOCUSATE SODIUM 100 MG CAPSULE PO SCH (18:00)
--- NOTE | 2018-09-30 18:42 | RADIOLOGY REPORT (SQ) ---
EXAM DESCRIPTION: CT CHEST WITHOUT COMPLETED DATE/TIME: 09/30/2018 6:22 pm REASON FOR STUDY: copd/pneumonia COMPARISON: 07/01/2018 TECHNIQUE: CT scan performed of the chest without intravenous contrast. Images reviewed with lung, soft tissue and bone windows. Reconstructed coronal and sagittal MPR images reviewed. All images st ored on PACS. All CT scanners at this facility use dose modulation, iterative reconstruction, and/or weight based d osing when appropriate to reduce radiation dose to as low as reasonably achievable (ALARA). [facility]: Dose Right [facility]: CareDose [facility]: Dose Right [facility]: Teradose 4D [facility]: Smart [place] RADIATION DOSE: CT Rad equipment meets quality standard of care and radiation dose reduction techniq ues were employed. CTDIvol: 16.1 mGy. DLP: 612 mGy-cm. mGy. LIMITATIONS: No technical limitations. FINDINGS: LUNGS AND PLEURA: Basilar atelectasis with scarring. No consolidation. Similar findings were present on prior study. Lung mead are otherwise clear. HILAR AND MEDIASTINAL STRUCTURES: No identified masses or abnormal nodes. No obvious aneurysm. HEART AND VASCULAR STRUCTURES: No aneurysm. No pericardial effusion. UPPER ABDOMEN: No significant findings. Limited exam. THYROID AND OTHER SOFT TISSUES: No masses. No adenopathy. BONES: No significant finding. HARDWARE: None in the chest. OTHER: No other significant findings. IMPRESSION: Basilar atelectasis or scarring. No consolidation. No pleural effusions. TECHNICAL DOCUMENTATION: JOB ID: [id number] Quality ID # [id number]: Final reports with documentation of one or more dose reduction techniques (e.g., Au tomated exposure control, adjustment of the mA and/or kV according to patient size, use of iterative reconstruction technique) 2010 [employer]- All Rights Reserved Reading location - [facility]workstation [facility]
[2018-09-30 19:04] LABS: ARTERIAL BLOOD BASE EXCESS 4.8 mmol/L; ARTERIAL BLOOD H2CO3 1.52 mmol/L (1.05-1.35); ARTERIAL BLOOD HCO3 30.6 mmol/L (20-24); ARTERIAL BLOOD O2 SATURATION 97.3 % (94-98); ARTERIAL BLOOD PCO2 50.6 mmHg (35-45); ARTERIAL BLOOD PO2 96.4 mmHg (80-100); ARTERIAL BLOOD TOTAL CO2 32.2 mmol/L (21-25)
[2018-09-30 19:07] LABS: ARTERIAL BLOOD FIO2 3L
[2018-09-30] MEDS ORDERED: IPRATROPIUM/ALBUTEROL 0.5-2.5 MG/3 ML AMPUL NEB SCH (20:00)
[2018-09-30] MEDS ORDERED: ACETYLCYSTEINE 10% NEB 400 MG/4 ML VIAL NEB SCH (20:00)
[2018-09-30] MEDS: ACETYLCYSTEINE 10% NEB 400 MG/4 ML VIAL NEB SCH (20:18)
[2018-09-30] MEDS ORDERED: DEXTROSE 50%-WATER SYRINGE 25 GM/50 ML DOSE IV PRN (21:00)
[2018-09-30] MEDS ORDERED: DEXTROSE 50%-WATER SYRINGE 12.5 GM/25 ML DOSE IV PRN (21:00)
[2018-09-30] MEDS ORDERED: DEXTROSE 40% GEL 15 GM TUBE PO PRN (21:00)
[2018-09-30] MEDS ORDERED: GLUCAGON,HUMAN RECOMB 1 MG INJ IM PRN (21:00)
[2018-09-30] MEDS ORDERED: DEXTROSE 40% GEL 15 GM TUBE X 2 PO PRN (21:00)
[2018-09-30] MEDS: BUSPIRONE HCL 10 MG TABLET PO SCH (21:08)
[2018-09-30] MEDS: ASPIRIN 81 MG TABLET, CHEWABLE PO SCH ×2 (21:08→21:23)
[2018-09-30] MEDS: BUPROPION HCL 75 MG TABLET PO SCH ×2 (21:09→21:24)
[2018-09-30] MEDS: DULOXETINE HCL 30 MG CAPSULE.DR PO SCH ×2 (21:09→21:22)
[2018-09-30] MEDS: DOCUSATE SODIUM 100 MG/10 ML UDC PO SCH (21:09)
[2018-09-30] MEDS: ENOXAPARIN SODIUM INJ 40 MG/0.4 ML DISP.SYRIN SUBCUT SCH (21:09)
[2018-09-30] MEDS: ASCORBIC ACID 500 MG TABLET PO SCH (21:09)
[2018-09-30] MEDS: POLYETHYLENE GLYCOL 3350 POWDER 17 GM/1 PACKET PO SCH ×2 (21:09→21:21)
[2018-09-30] MEDS: GUAIFENESIN 600 MG TABLET.SA PO SCH (21:09)
[2018-09-30] MEDS: FUROSEMIDE 40 MG TABLET PO SCH (21:09)
[2018-09-30] MEDS: FERROUS SULFATE 325 MG TABLET PO SCH (21:09)
[2018-09-30] MEDS: FLUTICASONE NASAL SPRAY 50 MCG/SPRY 120 SPRAY/16 GM NASL SCH (21:22)
[2018-09-30] MEDS: METHYLPREDNISOLONE INJ 40 MG/1 ML SDV IV SCH (21:22)
[2018-09-30] MEDS: BENZONATATE 100 MG CAPSULE PO PRN (21:22)
[2018-09-30] MEDS: MELATONIN 5 MG TABLET PO SCH (21:23)
[2018-09-30] MEDS: HYDRALAZINE HCL 25 MG TABLET PO SCH (21:24)
[2018-09-30] MEDS: DILTIAZEM HCL 30 MG TABLET PO SCH (21:24)
[2018-09-30] MEDS: POTASSIUM CHLORIDE 10 MEQ CAPSULE.ER PO SCH (21:24)
[2018-09-30] MEDS: FAMOTIDINE 20 MG TABLET PO SCH (21:25)
[2018-09-30] MEDS: CARBOXYMETHYLCELLULOSE SOD 0.5% 0.4 ML DROPERETTE OU SCH ×2 (21:25→21:57)
[2018-09-30] MEDS: METOPROLOL SUCCINATE 25 MG TAB.SR.24H PO SCH (21:26)
[2018-09-30] MEDS: RANOLAZINE 500 MG TAB.SR.12H PO SCH (21:26)
[2018-09-30] MEDS: TIOTROPIUM BROMIDE DPI 5 CAP/KIT (18 MCG/CAP) IH SCH (21:27)
[2018-09-30] MEDS: POLYMYXIN B SULFATE/TMP OPH SOLN 10 ML OD SCH (21:27)
[2018-09-30] MEDS: PREGABALIN 25 MG CAPSULE PO SCH (21:33)
[2018-09-30] MEDS: INSULIN LISPRO 100 UNIT/ML 3 ML VIAL SUBCUT SCH (21:38)
[2018-09-30] MEDS: OXYCODONE HCL IR 5 MG TABLET PO PRN (21:54)
[2018-09-30] MEDS: BACLOFEN 10 MG TABLET PO PRN (21:54)
[2018-09-30] MEDS ORDERED: DOCUSATE SODIUM 100 MG/10 ML UDC PO ONE (22:00)
[2018-09-30] MEDS ORDERED: FAMOTIDINE 20 MG TABLET PO SCH (22:00)
[2018-09-30] MEDS ORDERED: GUAIFENESIN 600 MG TABLET.SA PO ONE (22:00)
[2018-09-30] MEDS ORDERED: FERROUS SULFATE 325 MG TABLET PO ONE (22:00)
[2018-09-30] MEDS ORDERED: ASCORBIC ACID 500 MG TABLET PO ONE (22:00)
[2018-09-30] MEDS ORDERED: RANOLAZINE 500 MG TAB.SR.12H PO ONE (22:00)
[2018-09-30] MEDS ORDERED: FUROSEMIDE 40 MG TABLET PO ONE (22:00)
[2018-09-30] MEDS ORDERED: (PENDING PHARMACY ID) (Melatonin [Melatonin] 10 MG) PO SCH (22:00)
[2018-09-30] MEDS ORDERED: BUSPIRONE HCL 10 MG TABLET PO ONE (22:00)
[2018-09-30] MEDS ORDERED: ENOXAPARIN SODIUM INJ 40 MG/0.4 ML DISP.SYRIN SUBCUT ONE (22:00)
[2018-09-30] MEDS ORDERED: METOPROLOL SUCCINATE 25 MG TAB.SR.24H PO ONE (22:00)
[2018-09-30 23:17] LABS: CREATINE KINASE MB 0.95 ng/mL (<4.55)
[2018-09-30 23:26] LABS: TROPONIN I < 0.012 ng/mL
[2018-10-01] MEDS: LEVALBUTEROL HCL NEB 0.63 MG/3 ML AMPUL NEB SCH ×3 (00:04→16:41)
[2018-10-01] MEDS: METHYLPREDNISOLONE INJ 40 MG/1 ML SDV IV SCH ×3 (05:11→21:41)
[2018-10-01] MEDS: GUAIFENESIN 600 MG TABLET.SA PO SCH ×2 (05:11→18:15)
[2018-10-01] MEDS: DILTIAZEM HCL 30 MG TABLET PO SCH ×3 (05:11→21:43)
[2018-10-01] MEDS: RANOLAZINE 500 MG TAB.SR.12H PO SCH ×2 (05:12→18:14)
[2018-10-01] MEDS: PREGABALIN 25 MG CAPSULE PO SCH ×3 (05:12→21:43)
[2018-10-01] MEDS: HYDRALAZINE HCL 25 MG TABLET PO SCH ×3 (05:12→21:42)
[2018-10-01] MEDS: BUSPIRONE HCL 10 MG TABLET PO SCH ×2 (05:12→18:15)
[2018-10-01 05:25] LABS: ABSOLUTE LYMPHOCYTES (AUTO) 0.8 10^3/uL (0.5-4.7); ABSOLUTE MONOCYTES (AUTO) 0.3 10^3/uL (0.1-1.4); ABSOLUTE NEUT (AUTO) 6.9 10^3/uL (1.7-8.2); BASOPHILS % (AUTO) 0.2 % (0-2); HEMATOCRIT 32.9 % (36.0-47.0); HEMOGLOBIN 11.1 g/dL (12.0-15.5); LYMPHOCYTES % (AUTO) 9.7 % (13-45); MEAN CORPUSCULAR HGB CONC 33.7 g/dL (32.0-36.0); MEAN CORPUSCULAR VOLUME 89 fl (80-97); MONOCYTES % (AUTO) 3.6 % (3-13); PLATELET COUNT 187 10^3/uL (150-450); RED CELL DISTRIBUTION WIDTH 15.4 % (11.5-14.0); SEGMENTED NEUTROPHILS % (AUTO) 86.5 % (42-78); TOTAL CELLS COUNTED % (AUTO) 100 %
[2018-10-01 05:47] LABS: ALANINE AMINOTRANSFERASE 24 U/L (9-52); ALBUMIN 3.4 g/dL (3.5-5.0); ALKALINE PHOSPHATASE 105 U/L (38-126); ANION GAP 8 (5-19); ASPARTATE AMINO TRANSFERASE 14 U/L (14-36); BILIRUBIN,DIRECT 0.4 mg/dL (0.0-0.4); BILIRUBIN,TOTAL 0.4 mg/dL (0.2-1.3); BLOOD UREA NITROGEN 35 mg/dL (7-20); CALCIUM 9.2 mg/dL (8.4-10.2); CARBON DIOXIDE 29 mmol/L (22-30); CHLORIDE 103 mmol/L (98-107); GLUCOSE 141 mg/dL (75-110); POTASSIUM 4.7 mmol/L (3.6-5.0); SODIUM 140.4 mmol/L (137-145); TOTAL PROTEIN 6.6 g/dL (6.3-8.2); TRIGLYCERIDES 114 mg/dL (<150)
[2018-10-01 05:48] LABS: CHOLESTEROL 143.23 mg/dL (0-200)
[2018-10-01 06:00] LABS: DIRECT LDL 73 mg/dL (<100)
[2018-10-01 06:01] LABS: CREATINE KINASE MB 0.89 ng/mL (<4.55); NT PRO BNP 233 pg/mL (<450)
[2018-10-01 06:02] LABS: CREATINE KINASE < 20 U/L (30-135)
[2018-10-01 06:07] LABS: TROPONIN I < 0.012 ng/mL
--- NOTE | 2018-10-01 07:50 | EKG REPORT ---
SEVERITY:- ABNORMAL ECG - SINUS RHYTHM VENTRICULAR PREMATURE COMPLEX INCOMPLETE LEFT BUNDLE BRANCH BLOCK PROBABLE LEFT VENTRICULAR HYPERTROPHY : Confirmed by: Inocencio Aguilar MD 01-Oct-2018 07:49:46
[2018-10-01] MEDS: ACETYLCYSTEINE 10% NEB 400 MG/4 ML VIAL NEB SCH ×2 (08:50→21:13)
[2018-10-01] MEDS ORDERED: DIPHENHYDRAMINE HCL 50 MG/ML VIAL IV ONE (09:15)
[2018-10-01] MEDS: DULOXETINE HCL 30 MG CAPSULE.DR PO SCH (09:18)
[2018-10-01] MEDS: POLYMYXIN B SULFATE/TMP OPH SOLN 10 ML OD SCH ×4 (09:19→21:45)
[2018-10-01] MEDS: CARBOXYMETHYLCELLULOSE SOD 0.5% 0.4 ML DROPERETTE OU SCH ×4 (09:19→21:45)
[2018-10-01] MEDS: FLUTICASONE/VILANTEROL 200-25 MCG/DOSE IH SCH (09:19)
[2018-10-01] MEDS: BUPROPION HCL 75 MG TABLET PO SCH (09:21)
[2018-10-01] MEDS: ROFLUMILAST 500 MCG TABLET PO SCH (09:21)
[2018-10-01] MEDS: DOCUSATE SODIUM 100 MG/10 ML UDC PO SCH ×2 (09:21→18:16)
[2018-10-01] MEDS: FERROUS SULFATE 325 MG TABLET PO SCH ×2 (09:22→18:15)
[2018-10-01] MEDS: ASCORBIC ACID 500 MG TABLET PO SCH ×2 (09:22→18:15)
[2018-10-01] MEDS: FUROSEMIDE 40 MG TABLET PO SCH ×2 (09:23→18:15)
[2018-10-01] MEDS: POTASSIUM CHLORIDE 10 MEQ CAPSULE.ER PO SCH (09:24)
[2018-10-01] MEDS: BACLOFEN 10 MG TABLET PO PRN ×2 (09:24→18:15)
[2018-10-01] MEDS: ASPIRIN 81 MG TABLET, CHEWABLE PO SCH (09:24)
[2018-10-01] MEDS: OXYCODONE HCL IR 5 MG TABLET PO PRN ×2 (09:25→18:16)
[2018-10-01] MEDS: POLYETHYLENE GLYCOL 3350 POWDER 17 GM/1 PACKET PO SCH (09:25)
[2018-10-01] MEDS: INSULIN LISPRO 100 UNIT/ML 3 ML VIAL SUBCUT SCH ×4 (09:26→21:33)
[2018-10-01] MEDS: ENOXAPARIN SODIUM INJ 40 MG/0.4 ML DISP.SYRIN SUBCUT SCH (09:31)
[2018-10-01] MEDS ORDERED: FENTANYL 25 MCG/HR PATCH.TD72 TD SCH (10:00)
[2018-10-01] MEDS ORDERED: INSULIN GLARGINE,HUM.REC.ANLOG 1,000 UNIT/10 ML VIAL SUBCUT SCH (10:00)
[2018-10-01] MEDS: BENZONATATE 100 MG CAPSULE PO PRN ×2 (13:03→23:05)
--- NOTE | 2018-10-01 15:45 | Progress Note ---
Provider Note Provider Note: ID Consult Note Asked to review patient's chart. Pt not seen or examined. 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 Her PMH includes chronic pain, DM, CKD, GERD, AF, chronic diastolic CHF, ROSETTA, COPD with chronic respiratory failure on 3 L O2 and BiPAP at baseline at her SNF, and chronic indwelling Ghotra. She presented to the ED with complaint of increasing SOB starting the day prior. In the ED she reported having bronchitis for the past couple of months with chronic cough that is sometimes productive and sometimes not. She reported recently being prescribed Augmentin. She did not report any fever or problems with urination. Temp on presentation was 100.1 F. She has been afebrile. Her oxygen saturation was 95% on 3L O2. On exam on admission she was noted to have crackles, rhonchi, decreased breath sounds, tachypnea and wheezing. ABG on presentation reflected CO2 retention. WBC count on presentation 09/30 was mildly elevated 12.6k. Today it is 8.0 WNL. U/A includes large LE, 22 WBC/hpf. Blood cultures on admission have no grwoth x 24h. UCx has growth of two different GNRs that have yet to be identified. Sputum was also sent for culture, which has growth of 1+ GNRs, pending identification. Imaging included CXR single view on 09/30 that showed no acute findings. CT chest on 09/30 was read as showing basilar atelectasis with scarring but no consolidation and no change from prior study in Jul 2018. The patient has been managed for suspected COPD AE with BiPAP, nebulizers and steroids. Impression/Recommendations 1. Urinary colonization, asymptomatic bacteriuria - With chronic indwelling ghorta, U/A will be abnormal. Presence of pyuria with chronic indwelling ghotra is not unexpected. Nearly all patients with a chronic indwelling Ghotra also develop urinary colonization. - In absence of localizing symptoms (e.g. suprapubic tenderness) or systemic signs without other explanation (e.g. unexplained fever), urinary culture growth is most consistent with asymptomatic bacteriuria - Patients with asymptomatic bacteriuria do not benefit from antibiotics and should not receive them for this indication unless or about to undergo invasive urologic procedure where mucosal bleeding is expected. 2. AE COPD - Antibiotics are not recommended for all patients with AE COPD, since at least half of the time bacteria are not precipitants of the exacerbation. - Unfortunately, sputum culture growth does not necessarily differentiate between a bacterial cause of COPD exacerbation and a viral or noninfectious cause. COPD patients can have chronic lower respiratory tract colonization with bacteria, and the detection of bacteria in sputum does not necessarily mean that these patients have a higher risk of exacerbations. - A short antibiotic course would be reasonable in a patient with a severe exacerbation (e.g. increased need for ventilatory support) who has increased cough, sputum purulence and volume. However, per chart review, Ms. Fernandez appears to be at her baseline in terms of supplemental oxygen and BiPAP. If her COPD exacerbation is not severe and she is improving, continuing her current management appears to be appropriate. The decision of whether to initiate antibiotics depends on the clinical context rather than the culture growth. Charli Orozco MD [facility] Infectious Diseases pager [phone]
--- NOTE | 2018-10-01 16:53 | PDOC PROGRESS REPORT ---
Subjective Progress Note for:: 10/01/18 Subjective:: No adverse events overnight. No fevers. Patient is requesting to have a PICC line put in because she had had one in previously but it "fell out." She is convinced that she needs to have IV antibiotics. She is not showing any external signs of infection. She has a normal course cough that she normally has. Nurses that are very familiar with her and have taken care of her many times have said that her cough is actually better now than it usually is. Reason For Visit: COPD EXACERBATION, Physical Exam Vital Signs: Temp Pulse Resp BP Pulse Ox 98.1 F 68 22 H 130/69 H 99 10/01/18 11:04 10/01/18 11:04 10/01/18 11:04 10/01/18 11:04 10/01/18 11:04 Intake & Output 09/30/18 10/01/18 10/02/18 06:59 06:59 06:59 Output Total 700 225 Balance -700 -225 Weight 88 kg General appearance: PRESENT: No acute distress, appears chronically ill Respiratory exam: PRESENT: decreased breath sounds, rhonchi, no wheezes Cardiovascular exam: PRESENT: RRR Pulses: PRESENT: normal dorsalis pedis pul GI/Abdominal exam: PRESENT: normal bowel sounds, soft. ABSENT: distended, guarding, mass, organolmegaly, rebound, tenderness Extremities exam: PRESENT: full ROM. ABSENT: calf tenderness, clubbing, pedal edema Neurological exam: PRESENT: alert, awake, oriented to person, oriented to place, oriented to time, oriented to situation, CN II-XII grossly intact. Psychiatric exam: PRESENT: appropriate affect, normal mood Results Laboratory Results: 10/01/18 04:40 10/01/18 04:40 09/30/18 10/01/18 10/01/18 18:45 04:40 04:40 WBC 8.0 RBC 3.70 L Hgb 11.1 L Hct 32.9 L MCV 89 MCH 30.0 MCHC 33.7 RDW 15.4 H Plt Count 187 Seg Neutrophils % 86.5 H Lymphocytes % 9.7 L Monocytes % 3.6 Eosinophils % 0.0 Basophils % 0.2 Absolute Neutrophils 6.9 Absolute Lymphocytes 0.8 Absolute Monocytes 0.3 Absolute Eosinophils 0.0 Absolute Basophils 0.0 Carbonic Acid 1.52 H HCO3/H2CO3 Ratio 20:1 ABG pH 7.40 ABG pCO2 50.6 H ABG pO2 96.4 ABG HCO3 30.6 H ABG O2 Saturation 97.3 ABG Base Excess 4.8 FiO2 3L Sodium 140.4 Potassium 4.7 Chloride 103 Carbon Dioxide 29 Anion Gap 8 BUN 35 H Creatinine 1.30 H Est GFR ( Amer) 48 L Est GFR (Non-Af Amer) 40 L Glucose 141 H Calcium 9.2 Magnesium 2.4 H Total Bilirubin 0.4 AST 14 ALT 24 Alkaline Phosphatase 105 Total Protein 6.6 Albumin 3.4 L Triglycerides 114 Cholesterol 143.23 LDL Cholesterol Direct 73 VLDL Cholesterol 23.0 HDL Cholesterol 45 TSH 10/01/18 04:40 WBC RBC Hgb Hct MCV MCH MCHC RDW Plt Count Seg Neutrophils % Lymphocytes % Monocytes % Eosinophils % Basophils % Absolute Neutrophils Absolute Lymphocytes Absolute Monocytes Absolute Eosinophils Absolute Basophils Carbonic Acid HCO3/H2CO3 Ratio ABG pH ABG pCO2 ABG pO2 ABG HCO3 ABG O2 Saturation ABG Base Excess FiO2 Sodium Potassium Chloride Carbon Dioxide Anion Gap BUN Creatinine Est GFR ( Amer) Est GFR (Non-Af Amer) Glucose Calcium Magnesium Total Bilirubin AST ALT Alkaline Phosphatase Total Protein Albumin Triglycerides Cholesterol LDL Cholesterol Direct VLDL Cholesterol HDL Cholesterol TSH 0.58 09/30/18 09/30/18 09/30/18 12:30 16:47 16:47 Creatine Kinase 35 CK-MB (CK-2) 0.96 Troponin I 0.024 0.021 NT-Pro-B Natriuret Pep 09/30/18 09/30/18 09/30/18 16:47 22:09 22:09 Creatine Kinase 26 L CK-MB (CK-2) 0.95 Troponin I < 0.012 NT-Pro-B Natriuret Pep 329 10/01/18 10/01/18 04:40 04:40 Creatine Kinase < 20 L CK-MB (CK-2) 0.89 Troponin I < 0.012 NT-Pro-B Natriuret Pep 233 Impressions: Chest CT 09/30/18 00:00 IMPRESSION: Basilar atelectasis or scarring. No consolidation. No pleural effusions. Chest X-Ray 09/30/18 12:20 IMPRESSION: 1. No significant interval changes since the prior study dated . Cardiomegaly, unchanged finding. 2. Chronic mild stable changes. No acute pulmonary findings. Assessment and Plan - Diagnosis (1) COPD exacerbation Is this a current diagnosis for this admission?: Yes Plan: Improving with current treatment. We will not initiate antibiotics per infectious disease recommendations. If she sounds like this tomorrow we should be able to transition her to oral prednisone and then discharge home tomorrow. (2) COR (chronic cor pulmonale) Is this a current diagnosis for this admission?: Yes Plan: Not acutely exacerbated, managed with her home medications, of which there are many (3) Chronic diastolic CHF (congestive heart failure) Is this a current diagnosis for this admission?: Yes Plan: Not acutely exacerbated, will manage with her home medications (4) Chronic respiratory failure with hypoxia Is this a current diagnosis for this admission?: Yes Plan: Stable on her usual level of home oxygen support. - Time Time Spent with patient: 25-34 minutes
[2018-10-01] MEDS: METOPROLOL SUCCINATE 25 MG TAB.SR.24H PO SCH (18:14)
[2018-10-01] MEDS ORDERED: DIPHENHYDRAMINE HCL 50 MG/ML VIAL ONE (18:59)
[2018-10-01] MEDS: MELATONIN 5 MG TABLET PO SCH (21:41)
[2018-10-01] MEDS: FAMOTIDINE 20 MG TABLET PO SCH (21:44)
[2018-10-01] MEDS: FLUTICASONE NASAL SPRAY 50 MCG/SPRY 120 SPRAY/16 GM NASL SCH (21:45)
[2018-10-01] MEDS: TIOTROPIUM BROMIDE DPI 5 CAP/KIT (18 MCG/CAP) IH SCH (21:46)
[2018-10-02] MEDS: LEVALBUTEROL HCL NEB 0.63 MG/3 ML AMPUL NEB SCH ×2 (00:36→08:45)
[2018-10-02] MEDS: OXYCODONE HCL IR 5 MG TABLET PO PRN ×2 (02:43→11:23)
[2018-10-02] MEDS: BACLOFEN 10 MG TABLET PO PRN ×2 (02:43→11:31)
[2018-10-02] MEDS: GUAIFENESIN 600 MG TABLET.SA PO SCH (05:26)
[2018-10-02] MEDS: RANOLAZINE 500 MG TAB.SR.12H PO SCH (05:26)
[2018-10-02] MEDS: DILTIAZEM HCL 30 MG TABLET PO SCH (05:26)
[2018-10-02] MEDS: PREGABALIN 25 MG CAPSULE PO SCH (05:26)
[2018-10-02] MEDS: BUSPIRONE HCL 10 MG TABLET PO SCH (05:26)
[2018-10-02] MEDS: METHYLPREDNISOLONE INJ 40 MG/1 ML SDV IV SCH (05:27)
[2018-10-02] MEDS: HYDRALAZINE HCL 25 MG TABLET PO SCH (05:27)
[2018-10-02 08:20] VITALS: BP 147/70
[2018-10-02] MEDS: ACETYLCYSTEINE 10% NEB 400 MG/4 ML VIAL NEB SCH (08:45)
[2018-10-02] MEDS ORDERED: DIPHENHYDRAMINE HCL 50 MG/ML VIAL ONE (08:53)
[2018-10-02] MEDS: INSULIN LISPRO 100 UNIT/ML 3 ML VIAL SUBCUT SCH (09:43)
[2018-10-02] MEDS ORDERED: INSULIN GLARGINE,HUM.REC.ANLOG 1,000 UNIT/10 ML VIAL SUBCUT SCH (10:00)
[2018-10-02] MEDS: CARBOXYMETHYLCELLULOSE SOD 0.5% 0.4 ML DROPERETTE OU SCH (11:25)
[2018-10-02] MEDS: POLYMYXIN B SULFATE/TMP OPH SOLN 10 ML OD SCH (11:25)
[2018-10-02] MEDS: POTASSIUM CHLORIDE 10 MEQ CAPSULE.ER PO SCH (11:30)
[2018-10-02] MEDS: BUPROPION HCL 75 MG TABLET PO SCH (11:30)
[2018-10-02] MEDS: ROFLUMILAST 500 MCG TABLET PO SCH (11:30)
[2018-10-02] MEDS: FERROUS SULFATE 325 MG TABLET PO SCH (11:30)
[2018-10-02] MEDS: BENZONATATE 100 MG CAPSULE PO PRN (11:30)
[2018-10-02] MEDS: DULOXETINE HCL 30 MG CAPSULE.DR PO SCH (11:31)
[2018-10-02] MEDS: POLYETHYLENE GLYCOL 3350 POWDER 17 GM/1 PACKET PO SCH (11:31)
[2018-10-02] MEDS: ASPIRIN 81 MG TABLET, CHEWABLE PO SCH (11:31)
[2018-10-02] MEDS: ASCORBIC ACID 500 MG TABLET PO SCH (11:31)
[2018-10-02] MEDS: FUROSEMIDE 40 MG TABLET PO SCH (11:32)
[2018-10-02] MEDS: FLUTICASONE/VILANTEROL 200-25 MCG/DOSE IH SCH (11:32)
[2018-10-02] MEDS: DOCUSATE SODIUM 100 MG/10 ML UDC PO SCH (11:33)
[2018-10-02] MEDS: ENOXAPARIN SODIUM INJ 40 MG/0.4 ML DISP.SYRIN SUBCUT SCH (11:33)
--- NOTE | 2018-10-02 12:29 | PDOC TRANSFER SUMMARY ---
General - Admit/Disc Date/PCP Admission Date/Primary Care Provider: 09/30/18 15:39 K V DEBORAH HOLLIDAY MD Discharge Date: 10/02/18 - Discharge Diagnosis (1) COPD exacerbation Is this a current diagnosis for this admission?: Yes Summary: Responded quickly to steroids and nebulizer treatments. She is already on prednisone 20 mg a day and I do not think she is getting need any more a dditional prednisone beyond that. No antibiotics are indicated. (2) COR (chronic cor pulmonale) Is this a current diagnosis for this admission?: Yes Summary: Not acutely exacerbated, managed with her home medications (3) Chronic diastolic CHF (congestive heart failure) Is this a current diagnosis for this admission?: Yes Summary: Not acutely exacerbated, managed with her home medications (4) Chronic respiratory failure with hypoxia Is this a current diagnosis for this admission?: Yes Summary: She is been stable on her usual level of oxygen support - Additional Information Resuscitation Status: Do Not Resuscitate Discharge Diet: Cardiac, Diabetic Discharge Activity: Supervised Activity Home Medications: Acetaminophen [Tylenol 325 mg Tablet] 650 mg PO Q4HP PRN 09/09/17 Acetylcysteine [Mucomist 10% Neb 400 mg/4 mL Vial] 400 mg NEB RTQ6 09/09/17 Ascorbic Acid [Vitamin C 500 mg Tablet] 500 mg PO BID 09/09/17 Aspirin [Aspirin 81 mg Chewable Tablet] 81 mg PO DAILY 09/09/17 Benzocaine/Menthol [Chloraseptic Sore Throat Lozenge] 1 ru PO Q1HP PRN 09/09/17 Budesonide [Pulmicort 180 mcg Flexhaler] 2 puff IH Q12 09/09/17 Buspirone HCl [Buspar 5 mg Tablet] 5 mg PO Q12 09/09/17 Carboxymethylcellulose Sodium [Refresh Plus 0.5% Oph Soln 0.4 ml Droperette] 1 drop OU QID 09/09/17 Duloxetine HCl [Cymbalta] 90 mg PO DAILY 09/09/17 Ergocalciferol (Vitamin D2) [Drisdol 50,000 unit (1.25MG) Capsule] 50,000 unit PO [id number] 09/09/17 Ferrous Sulfate [Feosol 325 mg Tablet] 325 mg PO BID 09/09/17 Fluticasone/Salmeterol [Advair 500-50 Diskus 14 Dose/Diskus] 1 puff IH Q12 09/09/17 Hydralazine HCl [Apresoline 25 mg Tablet] 25 mg PO Q8 09/09/17 Insulin Lispro [Humalog Insulin (Lispro) 100 unit/mL] 0 units SQ .SLIDING SCALE 09/09/17 Ipratropium/Albuterol Sulfate [Iprat-Albut 0.5-3(2.5) mg/3 ml] 3 ml NEB [id number] 09/09/17 Lactulose [Enulose 10 gm/15 mL Oral Solution] 15 ml PO BIDP PRN 09/09/17 Levalbuterol HCl [Xopenex Neb 0.63 mg/3 ml Ampul] 0.63 mg NEB RTQ8 09/09/17 Magnesium Hydroxide [Milk of Magnesia 30 ml Udcup] 30 ml PO DAILYP PRN 09/09/17 Melatonin 10 mg PO QHS 09/09/17 Nitroglycerin [Nitrostat] 0.4 mg SL Q5MP PRN 09/09/17 Omeprazole 20 mg PO Q6AM 09/09/17 Polyethylene Glycol 3350 [Miralax Powder 17 gm/Packet] 17 gm PO DAILY 09/09/17 Ranitidine HCl [Zantac 150 mg Tablet] 150 mg PO Q12 09/09/17 Ranolazine [Ranexa 500 mg Tab.sr] 500 mg PO Q12 09/09/17 Roflumilast [Daliresp 500 mcg Tablet] 500 mcg PO DAILY 09/09/17 Sennosides/Docusate 8.6-50 mg [Senna Plus Tablet] 1 tab PO QHS 09/09/17 Tiotropium [place] [Spiriva Handihaler 5 Cap/Kit (18 Mcg/Cap)] 1 cap IH DAILY 09/09/17 Docusate Sodium [Colace 100 mg Capsule] 100 mg PO BID capsule 09/16/17 Guaifenesin [Mucinex] 600 mg PO Q12 04/08/18 Insulin Detemir [Levemir Flextouch] 32 units SQ DAILY #1 insuln.pen 04/13/18 Baclofen 10 mg PO Q8HP PRN 06/03/18 Linaclotide [Linzess 145 Mcg Capsule] 145 mcg PO [id number] 06/03/18 Potassium Chloride [K-Tab ER] 40 meq PO DAILY 06/03/18 Promethazine HCl [Phenergan 25 mg Tablet] 12.5 mg PO Q4HP PRN 06/03/18 Furosemide [Lasix 40 mg Tablet] 40 mg PO BID 06/06/18 Evening Tornillo Oil 500 mg PO TID 07/02/18 Pregabalin [Lyrica 25 mg Capsule] 25 mg PO Q8 07/02/18 Diltiazem HCl [Cardizem 30 mg Tablet] 30 mg PO Q8 tablet 07/09/18 Fentanyl [Duragesic 25 mcg/hr Transdermal Patch] 1 each TD Q3D #3 patch.[id number] 07/09/18 Metoprolol Succinate [Toprol Xl 25 mg Tab.sr] 25 mg PO DAILY tab.sr.24h 07/09/18 Prednisone [Deltasone 20 mg Tablet] 20 mg PO DAILY #0 07/09/18 Amox Tr/Potassium Clavulanate [Augmentin 875-125 mg Tablet] 1 tab PO BID 09/30/18 Benzonatate [Tessalon Perles 100 mg Capsule] 100 mg PO BIDP PRN 09/30/18 Bupropion HCl [Wellbutrin 75 mg Tablet] 75 mg PO DAILY 09/30/18 Diclofenac Sodium [Voltaren] 2 gm TOP Q8HP PRN 09/30/18 Fexofenadine HCl [Shaniqua Allergy] 180 mg PO DAILYP PRN 09/30/18 Fluticasone Propionate [Flonase Nasal [place] 50 Mcg/[place] 16 gm] 1 spray NASL DAILY 09/30/18 Mirabegron [Myrbetriq] 25 mg PO DAILY 09/30/18 Olopatadine HCl [Pataday] 1 drop OU DAILY 09/30/18 Oxycodone HCl [Oxy-Ir 5 mg Tablet] 7.5 mg PO Q8HP PRN 09/30/18 Phenazopyridine HCl [Urinary Pain Relief] 190 mg PO Q8HP PRN 09/30/18 Polymyxin B Sulfate/Tmp [Polytrim Oph Soln 10 ml] 1 drop OD QID 09/30/18 Trazodone HCl [Desyrel 50 mg Tablet] 25 mg PO QHS 09/30/18 History of Present Illness Admission Date/PCP: 09/30/18 15:39 Moises HOLLIDAY MD History of Present Illness: PORSHA WALDRON is a 73 year old female history of chronic UTIs, congestive heart failure, COPD on BiPAP at [facility], hypertension diabetes mellitus came to the emergency room with complaints of increasing shortness of breath from last night. VBG was done in the ER , PCO2 is 54 medical consult was called for admission for COPD exacerbation. At the time of examination in the ER patient is complaining of increasing shortness of breath from yesterday she is also saying she has chronic bronchitis for the last couple of weeks taking Augmentin at snf. Patient is on contact isolation in the ER. Patient denies any fevers denies any cough denies any vomiting diarrhea but complains of nausea because of the Augmentin. Denies any problems with urination because she has indwelling Barton's catheter. Wants to be DNR/DNI. Patient is going to be admitted to the medical floor. Hospital Course Hospital Course: She responded quickly to steroids and bronchodilators. No antibiotics are indicated. They checked a urine and a sputum culture on her when she came in, but she had no evidence of acute infection. Her sputum culture always grows and MRSA plus either a Klebsiella or a Pseudomonas, and this time it was a Pseudomonas with the MRSA. Her airways are colonized that she does not have signs of acute infection at this time, and this was the concurrent opinion of infectious disease. 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 Again, no antibiotics are indicated as there is no evidence of acute infection, again a concurrent opinion of infectious disease. She is already taking 20 mg a day of prednisone at home, and at this point I do not think there is any indication to increase her steroids temporarily above what she is already taking. Her comorbid conditions were managed with her home medications and were not acutely exacerbated during his hospitalization. Her labs and examination were reassuring and she was discharged in stable condition. Physical Exam Vital Signs: Temp Pulse Resp BP Pulse Ox 97.8 F 67 16 147/70 H 100 10/02/18 07:48 10/02/18 08:45 10/02/18 08:45 10/02/18 07:48 10/02/18 08:45 Intake & Output 10/01/18 10/02/1819 06:59 06:59 06:59 Intake Total 1187 Output Total 700 2900 Balance -700 -1713 Weight 88 kg 91.6 kg General appearance: PRESENT: No acute distress, appears chronically ill Respiratory exam: PRESENT: decreased breath sounds, rhonchi, no wheezes Cardiovascular exam: PRESENT: RRR Pulses: PRESENT: normal dorsalis pedis pul GI/Abdominal exam: PRESENT: normal bowel sounds, soft. ABSENT: distended, guarding, mass, organolmegaly, rebound, tenderness Extremities exam: PRESENT: full ROM. ABSENT: calf tenderness, clubbing, pedal edema Neurological exam: PRESENT: alert, awake, oriented to person, oriented to place, oriented to time, oriented to situation, CN II-XII grossly intact. Psychiatric exam: PRESENT: appropriate affect, normal mood Results Laboratory Results: 10/01/18 04:40 10/01/18 04:40 09/30/18 14:40 Sputum Gram Stain - Final 09/30/18 14:40 Sputum Sputum Culture - Final Pseudomonas Aeruginosa Mrsa (Meth Resis Staph Aureus) Reduced Normal Catarina 09/30/18 09/30/18 09/30/18 12:30 16:47 16:47 Creatine Kinase 35 CK-MB (CK-2) 0.96 Troponin I 0.024 0.021 NT-Pro-B Natriuret Pep 09/30/18 09/30/18 09/30/18 16:47 22:09 22:09 Creatine Kinase 26 L CK-MB (CK-2) 0.95 Troponin I < 0.012 NT-Pro-B Natriuret Pep 329 10/01/18 10/01/18 04:40 04:40 Creatine Kinase < 20 L CK-MB (CK-2) 0.89 Troponin I < 0.012 NT-Pro-B Natriuret Pep 233 Impressions: Chest CT 09/30/18 00:00 IMPRESSION: Basilar atelectasis or scarring. No consolidation. No pleural effusions. Chest X-Ray 09/30/18 12:20 IMPRESSION: 1. No significant interval changes since the prior study dated 07/01/2018. Cardiomegaly, unchanged finding. 2. Chronic mild stable changes. No acute pulmonary findings. Transfer Plan - Time Spent with Patient Time spent with patient: Greater than 30 Minutes Qualifiers - * PATIENT BEING DISCHARGED WITH ANY OF THE FOLLOWING DIAGNOSIS: No
[2018-10-02] MEDS ORDERED: DOCUSATE SODIUM 100 MG CAPSULE PO SCH (18:00)
[2018-10-25] MEDS ORDERED: ERGOCALCIFEROL (VITAMIN D2) 50000 UNIT (1.25 MG) CAPSULE PO SCH (10:00)
== END 2018-10-02 14:00 ==
LOC: ER 12:17 → INTOOBSV 15:39 → EH 15:39 → 3S 19:07
PROVIDERS: ADMIT Family Medicine; ATTEND Internal Medicine
DX: J44.1 Chronic obstructive pulmonary disease with (acute) exacerbation (principal); I27.81 Cor pulmonale (chronic); R84.5 Abnormal microbiological findings in specimens from respiratory organs and thorax; R82.79 Other abnormal findings on microbiological examination of urine; I13.0 Hypertensive heart and chronic kidney disease with heart failure and stage 1 through stage 4 chronic kidney disease, or unspecified chronic kidney disease; E11.22 Type 2 diabetes mellitus with diabetic chronic kidney disease; N18.3 Chronic kidney disease, stage 3 (moderate); N17.9 Acute kidney failure, unspecified; I11.0 Hypertensive heart disease with heart failure; I50.32 Chronic diastolic (congestive) heart failure; J96.11 Chronic respiratory failure with hypoxia; R00.2 Palpitations; E11.65 Type 2 diabetes mellitus with hyperglycemia; E66.01 Morbid (severe) obesity due to excess calories; G47.33 Obstructive sleep apnea (adult) (pediatric); G89.29 Other chronic pain; I25.10 Atherosclerotic heart disease of native coronary artery without angina pectoris; Z68.35 Body mass index [BMI] 35.0-35.9, adult; Z79.52 Long term (current) use of systemic steroids; Z87.440 Personal history of urinary (tract) infections; Z99.81 Dependence on supplemental oxygen; Z66 Do not resuscitate; Z79.82 Long term (current) use of aspirin; Z79.899 Other long term (current) drug therapy; Z79.4 Long term (current) use of insulin; Z87.01 Personal history of pneumonia (recurrent); Z86.14 Personal history of Methicillin resistant Staphylococcus aureus infection; Z90.49 Acquired absence of other specified parts of digestive tract; Z74.01 Bed confinement status; Z82.49 Family history of ischemic heart disease and other diseases of the circulatory system; Z80.1 Family history of malignant neoplasm of trachea, bronchus and lung; Z98.890 Other specified postprocedural states
CPT/HCPCS: 93005 ×2; 94640 ×4; 99285; 96374; 36415 ×2; 87040; 87070; 87086; 87205; 82553 ×2; 82962 ×3; 82803 ×2; 82550 ×2; 82728; 83540; 83550; 83735; 84443; 85025 ×2; 85027; 85610; 87077; 87088; 80048; 80053 ×2; 81001; 84484 ×2; 87186; 83036; 83605; 80061; 83880 ×2; 71045; 71250; 93010; 36600; 94660 ×3; G0378; A9270 ×67; J3490 ×15; J2920 ×3; J2930; J1650 ×2; J0696; J1200; J1815; J7614; J7620

== ENCOUNTER → 2018-12-03 | Outpatient (CLI) | payer MEDICARE, MEDICAID ==
[~2018-12-03] MED LIST: AMINOPHYLLINE INJ/PF 250 MG/10 ML SDV IV ONE; LEVALBUTEROL HCL NEB 0.63 MG/3 ML AMPUL NEB ONE; REGADENOSON INJ 0.4 MG/5 ML DISP.SYRIN IV ONE
--- NOTE | 2018-12-07 21:53 | XCELERA REPORT ---
[address] [address] Transthoracic Echocardiogram Report Name: PORSHA WALDRON Age: 73 yrs Gender: Female : 1945 Patient Status: Outpatient Patient Location: RAD Study Date: 12/03/2018 10:09 AM Height: 62 in Weight: 186 lb BSA: 1.9 m2 Procedure: A two-dimensional transthoracic echocardiogram with color flow and Doppler was performed. The study was technically difficult with many images being suboptimal in quality. Reason For Study: CP History: CHEST PAIN. Ordering Physician: YESENIA BOWEN Performed By: Zora Gan Interpretation Summary The left ventricle is normal in size. There is normal left ventricular wall thickness. LV EF is 60% The left ventricular ejection fraction is within normal limits. Doppler measurements suggest impaired left ventricular relaxation, which is associated with grade I/IV or mild diastolic dysfunction The left ventricular wall motion is normal. There is no thrombus. There is no ventricular septal defect visualized. The right ventricle is grossly normal size. The right ventricle is not well visualized secondary to technical limitations The right atrium is normal. The left atrial size is normal. There is no evidence of mitral valve prolapse. There is no mitral valve stenosis. There is a trace amount of mitral regurgitation There is no aortic valve stenosis There is no LVOT obstruction. No aortic regurgitation is present. There is no tricuspid stenosis. There is a trace amount of tricuspid regurgitation No pulmonary hypertension.RVSP is 25 to 30 mm of Hg , with RA mean of 5 to 10. The pulmonic valve is not well visualized. The inferior vena cava appeared normal and decreased > 50% with respiration (RAP 5-10 mmHg) The aortic root is normal size. There is no pericardial effusion. MMode/2D Measurements & Calculations RVDd: 4.1 cm LVIDd: 5.4 cm FS: 28.9 % Ao root diam: 2.6 cm IVSd: 0.99 cm LVIDs: 3.8 cm EDV(Teich): 140.1 ml Ao root area: 5.5 cm2 LVPWd: 0.98 cm ESV(Teich): 62.9 ml LA dimension: 3.6 cm EF(Teich): 55.1 % Doppler Measurements & Calculations MV E max master: MV P1/2t max master: Ao V2 max: LV V1 max P.8 cm/sec 117.4 cm/sec 179.2 cm/sec 9.8 mmHg MV A max master: MV P1/2t: 87.9 msec Ao max PG: LV V1 max: 128.9 cm/sec MVA(P1/2t): 2.5 cm2 12.8 mmHg 156.3 cm/sec MV E/A: 0.91 MV dec slope: 391.2 cm/sec2 MV dec time: 0.27 sec PA V2 max: TR max master: MV P1/2t-pr_phl: 121.2 cm/sec 224.4 cm/sec 87.9 msec PA max P.9 mmHgTR max P.1 mmHg Left Ventricle The left ventricle is normal in size. There is normal left ventricular wall thickness. LV EF is 60%. The left ventricular ejection fraction is within normal limits. Doppler measurements suggest impaired left ventricular relaxation, which is associated with grade I/IV or mild diastolic dysfunction. The left ventricular wall motion is normal. There is no thrombus. There is no ventricular septal defect visualized. Right Ventricle The right ventricle is grossly normal size. The right ventricle is not well visualized secondary to technical limitations. Atria The right atrium is normal. The left atrial size is normal. Mitral Valve There is no evidence of mitral valve prolapse. There is no vegetation seen on the mitral valve. There is no mitral valve stenosis. There is a trace amount of mitral regurgitation. Aortic Valve There is no aortic valve stenosis. There is no LVOT obstruction. No aortic regurgitation is present. Tricuspid Valve There is no tricuspid stenosis. There is a trace amount of tricuspid regurgitation. No pulmonary hypertension.RVSP is 25 to 30 mm of Hg , with RA mean of 5 to 10. Pulmonic Valve The pulmonic valve is not well visualized. Great Vessels The aortic root is normal size. The inferior vena cava appeared normal and decreased > 50% with respiration (RAP 5-10 mmHg). Effusions There is no pericardial effusion. : YESENIA BOWEN > Yesenia Bowen
--- NOTE | 2018-12-07 22:33 | DRAGON STRESS TEST REPORT ---
Intravenous Lexiscan Cardiolite stress test using single photon emmision computerized tomography. Date of procedure: 12/03/2018. Ordering Provider: Dr. Yesenia Graham. Patient's status: Out Patient Indication: Chest pain. Coronary risk factors: Age, diabetes mellitus, hypertension, and dyslipidemia. T he patient had mild wheezing prior to the stress test being done. The patient was given a Xopenex nebulizer breathing treatment, and her wheezing resolved. The patient no shortness of breath. And the IV Lexiscan Cardiolite stress test was done without any untoward events. Post injection of the stress dose of Cardiolite after IV Lexiscan injection, the patient was given 100 mg of Aminophyllin intravenous. There is no further wheezing. There is no further shortness of breath. The patient had no chest pain or discomfort during the procedure, and there were no arrhythmias seen. Resting EKG: Sinus Rhythm. Poor R wave leads V1 to V6. Nonspecific IVCD Stress EKG: No changes of ischemia. Reason for termination: Protocol. Conclusions: Normal EKG and hemodynamic response to IV Lexiscan. Nuclear data: At rest the patient was given 12.96 millicuries of technetium 99m sestamibi injected intravenously. As per protocol rest non gated SPECT images were obtained. Subsequently the patient was given intravenous Lexiscan at a dose of 0.4 mg in 5 mL intravenously, followed by flush with normal saline. Subsequently the stress dose of 36.7 millicuries of technetium 99m sestamibi was injected intravenously. As per protocol stress gated images were obtained. Nuclear interpretation: Review of images showed that all segments of the myocardium had normal perfusion at rest, and normal perfusion post stress with IV Lexiscan. All segments of the myocardium had normal motion, contraction, and thickening by gated study. T. I D. ratio was read by the computer as abnormal at 1.27. Visually this is not reliable and the T I D ratio was normal. There is no transient ischemic dilatation of the left ventricle. Computer read rest, and stress left ventricular ejection fraction were 57 %, and 55 %, respectively. Visually both the stress and rest ejection fractions were normal, and greater than 55%. Conclusion: 1. There is no scintigraphic evidence of Lexiscan induced myocardial ischemia. 2. There is no scintigraphic evidence of myocardial infarction/scar. Recommendations: Aggressive risk factor modification, and treating the underlying co- morbidities. MTDD
== END ==
LOC: RAD 06:50
PROVIDERS: ATTEND Specialist
DX: R07.9 Chest pain, unspecified (principal); R06.2 Wheezing; I10 Essential (primary) hypertension; E11.9 Type 2 diabetes mellitus without complications; E78.5 Hyperlipidemia, unspecified
CPT/HCPCS: 93306; 93017; 78452; 94640; A9500; J2785; A9270; J0280; Q9969; J7614

== ENCOUNTER → 2018-12-08 | Outpatient (CLI) | payer MEDICARE, MEDICAID ==
--- NOTE | 2018-12-08 16:57 | RADIOLOGY REPORT (SQ) ---
EXAM DESCRIPTION: CT RT LOWER EXTREMITY WITHOUT COMPLETED DATE/TIME: 12/08/2018 2:11 pm REASON FOR STUDY: M86.171 OTHER ACUTE OSTEOMYELITIS, RIGHT ANKLE AND FOOT M86.171 OTHER ACUTE OSTEO MYELITIS, RIGHT ANKLE AND FOOT COMPARISON: None. TECHNIQUE: Axial imaging performed through the right foot and ankle with reformatted coronal and sag ittal imaging windowed for bone and soft tissues. Images saved to PACS. 3D IMAGING: Were 3D images as MIP, SSD, or volume rendering performed at the work station? Yes. All CT scanners at this facility use dose modulation, iterative reconstruction, and/or weight based d osing when appropriate to reduce radiation dose to as low as reasonably achievable (ALARA). [facility]: Dose Right [facility]: CareDose [facility]: Dose Right [facility]: Teradose 4D [facility]: [employer] LIMITATIONS: None. RADIATION DOSE: CT Rad equipment meets quality standard of care and radiation dose reduction techniq ues were employed. CTDIvol: 4.6 mGy. DLP: 141 mGy-cm. mGy. FINDINGS: SOFT TISSUES: No evidence of abscess. Subcutaneous inflammation over the lateral malleolu s and along the plantar margin of the 5th phalanx. BONES: No fracture or cortical breakthrough. MINERALIZATION: Osteopenia. OTHER: No other significant finding. IMPRESSION: No evidence of osteomyelitis. TECHNICAL DOCUMENTATION: JOB ID: [id number] Quality ID # [id number]: Final reports with documentation of one or more dose reduction techniques (e.g., Au tomated exposure control, adjustment of the mA and/or kV according to patient size, use of iterative reconstruction technique) 2010 [employer]- All Rights Reserved Reading location - IP/workstation name: [email or web address]
== END ==
LOC: RAD 13:49
PROVIDERS: ATTEND Family Medicine
DX: M86.171 Other acute osteomyelitis, right ankle and foot (principal)
CPT/HCPCS: 82306; 82310; 83970

== ENCOUNTER 2019-01-01 21:30 | Inpatient (IN) | payer MEDICARE, MEDICAID ==
[2019-01-01] MEDS ORDERED: IPRATROPIUM/ALBUTEROL 0.5-2.5 MG/3 ML AMPUL NEB ONE (22:35)
--- NOTE | 2019-01-01 22:36 | ER Document Report ---
ED General - General Chief Complaint: Fever Stated Complaint: FEVER Time Seen by Provider: 01/01/19 22:25 Primary Care Provider: KARTHIKEYAN HERNANDEZ MD [Primary Care Provider] - Follow up as needed Notes: Patient is a 73-year-old female presents with complaints of fever cough. Fever started last 24 hours. 1 to 2 days ago started noticing increasing coughing. She says she does have some cough due to COPD but the last 24 hours her cough is increased and is been productive. She said one time she coughed and there was a small amount of blood-tinged sputum. She denies any further bleeding. No abdominal pain. She does have a history of chronic UTIs with E. coli colonization. She denies any vomiting or diarrhea. She says she feels weak all over. TRAVEL OUTSIDE OF THE [place] IN LAST 30 DAYS: No - Related Data Allergies/Adverse Reactions: Sulfa (Sulfonamide Antibiotics) Allergy (Intermediate, Verified 02/03/18 09:37) adhesive tape Allergy (Verified 02/03/18 09:37) atorvastatin calcium [From Lipitor] Allergy (Verified 02/03/18 09:37) celecoxib [From Celebrex] Allergy (Verified 02/03/18 09:37) Past Medical History - Social History Smoking Status: Former Smoker Frequency of alcohol use: None Drug Abuse: None Family History: Reviewed & Not Pertinent, Arthritis, CAD, CVA, DM, Hyperlipidem ia, Hypertension Patient has suicidal ideation: No Patient has homicidal ideation: No - Past Medical History Cardiac Medical History: Reports: Hx Atrial Fibrillation, Hx Congestive Heart Failure - Diastolic dysfunction, Hx Coronary Artery Disease, Hx DVT, Hx Heart Attack, Hx Hypercholesterolemia, Hx Hypertension - essential, Hx Pulmonary Embolism, Hx Heart Murmur Denies: Hx Peripheral Vascular Disease Pulmonary Medical History: Reports: Hx Asthma, Hx Bronchitis, Hx COPD, Hx Pneumo maria t - Recurrent MRSA pneumonia., Hx Respiratory Failure - Chronic, Hx Sleep Apnea - Uses C Pap Denies: Hx Tuberculosis Neurological Medical History: Denies: Hx Seizures Endocrine Medical History: Reports: Hx Diabetes Mellitus Type 1, Hx Diabetes Clara litus Type 2. Denies: Hx Hyperthyroidism, Hx Hypothyroidism Renal/ Medical History: Reports: Hx Renal Insufficiency. Denies: Hx Peritoneal Dialysis GI Medical History: Reports: Hx Gastroesophageal Reflux Disease, Hx Hiatal Hernia. Denies: Hx Cirrhosis, Hx Hepatitis Musculoskeletal Medical History: Reports Hx Arthritis, Reports Hx Fibromyalgia, Reports Hx Gout, Reports Hx Muscle Weakness Skin Medical History: Denies Hx Eczema, Denies Hx Psoriasis Psychiatric Medical History: Reports: Hx Anxiety, Hx Depression Infectious Medical History: Reports: Hx C-Diff, Hx MRSA. Denies: Hx Hepatitis Past Surgical History: Reports: Hx Appendectomy, Hx Cholecystectomy, Hx Hysterectomy, Hx Orthopedic Surgery - Multiple left hip procedures, 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 - Immunizations Hx Diphtheria, Pertussis, Tetanus Vaccination: Yes Hx Pneumococcal Vaccination: 05/20/13 Review of Systems - Review of Systems Notes: My Normal Review Basic REVIEW OF SYSTEMS: CONSTITUTIONAL : Fever EENT: Denies eye, ear, throat, or mouth pain or symptoms. Denies nasal or sinus congestion. CARDIOVASCULAR: Denies chest pain. RESPIRATORY: Cough GASTROINTESTINAL: Denies abdominal pain. Denies nausea, vomiting, or diarrhea. GENITOURINARY: Denies difficulty urinating, painful urination, burning, frequency, or blood in urine. MUSCULOSKELETAL: Denies neck or back pain or joint pain or swelling. SKIN: Denies rash or skin lesions. NEUROLOGICAL: Denies altered mental status or loss of consciousness. Denies headache. Denies weakness or paralysis or loss of use of either side. Denies p roblems with gait or speech. Denies sensory or motor loss. ALL OTHER SYSTEMS REVIEWED AND NEGATIVE. Physical Exam - Vital signs Vitals: BP Pulse Ox 107/54 L 95 01/01/19 21:49 01/01/19 21:49 - Notes Notes: General Appearance: Well nourished, alert, cooperative, no acute distress, no obvious discomfort. Vitals: reviewed, See vital signs table. Head: no swelling or tenderness to the head Eyes: PERRL, EOMI, Conjuctiva clear Mouth: No decreasd moisture Throat: No tonsillar inflammation, No airway obstruction, No lymphadenopathy Neck: Supple, no neck tenderness Lungs: Somewhat coarse breath sounds heard posteriorly that sound more like upper airway sounds. Remainder of lung mead are clear. No wheezing. Heart: Normal rate, Regular rythm, No murmur, no rub Abdomen: Normal BS, soft, No rigidity, No abdominal tenderness, No guarding, no rebound, no abdominal masses, no organomegaly Extremities: strength 5/5 in all extremities, good pulses in all extremities, no swelling or tenderness in the extremities, 2+ bilateral lower extremity chronic appearing edema. Skin: warm, dry, appropriate color, no rash Neuro: speech clear, oriented x 3, normal affect, responds appropriately to questions. Course - Re-evaluation Re-evalutation: 01/02/19 00:23 Patient has what appears to be facility acquired pneumonia. This makes sense in conjunction with her presentation and history. We will get the patient's intermediate records she does have history of MRSA pneumonia. I will cover with vancomycin as well as Zosyn to help cover for both MRSA pneumonia and facility acquired pneumonia. Patient's vital signs are stable but clinically she is sick and weak appearing. I did speak with the hospitalist, Dr. Mejía, who agrees to evaluate the patient for admission. Dictation of this chart was performed using voice recognition software; therefore, there may be some unintended grammatical errors. - Vital Signs Vital signs: Temp Pulse Resp BP Pulse Ox 99 F 32 H 112/56 L 94 01/01/19 22:23 01/01/19 22:01 01/01/19 22:01 01/01/19 22:01 - Laboratory Result Diagrams: 01/01/19 22:40 01/01/19 22:40 Laboratory results interpreted by me: 01/01/19 01/01/19 01/01/19 22:40 22:40 22:56 WBC 18.6 H RBC 3.62 L Hgb 10.4 L Hct 31.6 L RDW 15.1 H Seg Neutrophils % 84.7 H Lymphocytes % 7.4 L Absolute Neutrophils 15.8 H Carbon Dioxide 31 H BUN 28 H Est GFR ( Amer) 53 L Est GFR (Non-Af Amer) 44 L Glucose 156 H Urine Nitrite POSITIVE H Ur Leukocyte Esterase LARGE H Discharge - Discharge Clinical Impression: Pneumonia Qualifiers: Pneumonia type: due to unspecified organism Laterality: unspecified laterality Lung location: unspecified part of lung Qualified Code(s): J18.9 - Pneumonia, unspecified organism Fever Qualifiers: Fever type: unspecified Qualified Code(s): R50.9 - Fever, unspecified Condition: Good Disposition: HOME, SELF-CARE
[2019-01-01 22:53] LABS: ABSOLUTE BASOPHILS # (AUTO) 0.1 10^3/uL (0.0-0.2); ABSOLUTE LYMPHOCYTES (AUTO) 1.4 10^3/uL (0.5-4.7); ABSOLUTE MONOCYTES (AUTO) 1.4 10^3/uL (0.1-1.4); ABSOLUTE NEUT (AUTO) 15.8 10^3/uL (1.7-8.2); BASOPHILS % (AUTO) 0.3 % (0-2); EOSINOPHILS % (AUTO) 0.1 % (0-6); HEMATOCRIT 31.6 % (36.0-47.0); HEMOGLOBIN 10.4 g/dL (12.0-15.5); LYMPHOCYTES % (AUTO) 7.4 % (13-45); MEAN CORPUSCULAR HEMOGLOBIN 28.7 pg (27.0-33.4); MEAN CORPUSCULAR HGB CONC 32.8 g/dL (32.0-36.0); MEAN CORPUSCULAR VOLUME 87 fl (80-97); MONOCYTES % (AUTO) 7.5 % (3-13); PLATELET COUNT 193 10^3/uL (150-450); RED BLOOD COUNT 3.62 10^6/uL (3.72-5.28); RED CELL DISTRIBUTION WIDTH 15.1 % (11.5-14.0); SEGMENTED NEUTROPHILS % (AUTO) 84.7 % (42-78); TOTAL CELLS COUNTED % (AUTO) 100 %; WHITE BLOOD COUNT 18.6 10^3/uL (4.0-10.5)
[2019-01-01 23:13] LABS: ALANINE AMINOTRANSFERASE 18 U/L (9-52); ALBUMIN 3.6 g/dL (3.5-5.0); ALKALINE PHOSPHATASE 95 U/L (38-126); ANION GAP 8 (5-19); ASPARTATE AMINO TRANSFERASE 17 U/L (14-36); BILIRUBIN,DIRECT 0.3 mg/dL (0.0-0.4); BILIRUBIN,TOTAL 0.4 mg/dL (0.2-1.3); BLOOD UREA NITROGEN 28 mg/dL (7-20); CALCIUM 9.4 mg/dL (8.4-10.2); CARBON DIOXIDE 31 mmol/L (22-30); CHLORIDE 99 mmol/L (98-107); GLUCOSE 156 mg/dL (75-110); POTASSIUM 4.3 mmol/L (3.6-5.0); SODIUM 137.9 mmol/L (137-145); TOTAL PROTEIN 6.7 g/dL (6.3-8.2)
[2019-01-01 23:28] LABS: APPEARANCE,URINE SLIGHTLY-CLOUDY; BILIRUBIN,URINE NEGATIVE (NEGATIVE); COLOR,URINE YELLOW; GLUCOSE, URINE NEGATIVE (NEGATIVE); KETONES,URINE NEGATIVE (NEGATIVE); LEUKOCYTE ESTERASE,URINE LARGE (NEGATIVE); NITRITE,URINE POSITIVE (NEGATIVE); PROTEIN,URINE NEGATIVE (NEGATIVE); URINE SPECIFIC GRAVITY 1.009; UROBILINOGEN,URINE NEGATIVE mg/dL (<2.0)
--- NOTE | 2019-01-01 23:31 | RADIOLOGY REPORT (SQ) ---
EXAM DESCRIPTION: XR CHEST 1 VIEW COMPLETED DATE/TME: 01/01/2019 22:31 CLINICAL HISTORY: 73 years Female, fever COMPARISON: 09/30/18 NUMBER OF VIEWS/TECHNIQUE: 1/AP FINDINGS: Moderate opacity-effusion of the left lower hemithorax. Mildly enlarged cardiac silhouette. Atherosclerotic vascular disease. Partial resection of the/absence of the proximal right humerus. 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 No pneumothorax. Stable bony thorax. IMPRESSION: Moderate left lower lobar pneumonia. Recommend CR/CT surveillance including at 7-12 weeks following initiation of any clinically warranted therapy.
[2019-01-02] MEDS ORDERED: VANCOMYCIN HCL INJ 1000 MG VIAL IV ONE (00:20)
[2019-01-02] MEDS ORDERED: NORMAL SALINE 1000 ML 1,000 ML IV ONE (00:20)
[2019-01-02] MEDS ORDERED: PIPERACILLIN/TAZOBACTAM 4.5 GM VIAL IV ONE (00:20)
[2019-01-02] MEDS ORDERED: IPRATROPIUM/ALBUTEROL 0.5-2.5 MG/3 ML AMPUL NEB PRN (00:22)
[2019-01-02] MEDS ORDERED: GUAIFENESIN SYRP 200 MG/10 ML UDC PO PRN (00:22)
[2019-01-02] MEDS ORDERED: ACETAMINOPHEN 325 MG TABLET PO PRN (00:22)
[2019-01-02] MEDS ORDERED: DEXTROSE 40% GEL 15 GM TUBE PO PRN ×2 (00:25)
[2019-01-02] MEDS ORDERED: DEXTROSE 50%-WATER 25 GM/50 ML DISP.SYRIN IV PRN ×2 (00:25)
[2019-01-02] MEDS ORDERED: GLUCAGON,HUMAN RECOMB 1 MG INJ IM PRN (00:25)
[2019-01-02] MEDS ORDERED: VANCOMYCIN HCL 0 MG in DEXTROSE 5%-WATER 250 ML IV NR (00:30)
[2019-01-02] MEDS ORDERED: PIPERACILLIN/TAZOBACTAM 3.375 GM VIAL IV PRN (00:38)
[2019-01-02] MEDS ORDERED: PIPERACILLIN SODIUM/TAZOBACTAM 3.375 GM in NORMAL SALINE 100 ML IV ONE (01:00)
[2019-01-02] MEDS: IPRATROPIUM/ALBUTEROL 0.5-2.5 MG/3 ML AMPUL NEB SCH ×4 (02:54→19:55)
--- NOTE | 2019-01-02 04:59 | PDOC H&P ---
History of Present Illness Admission Date/PCP: 01/02/19 00:22 KARTHIKEYAN HERNANDEZ MD Patient complains of: Shortness of breath and nonproductive cough History of Present Illness: PORSHA WALDRON is a 73 year old female with a past medical history of chronic pain, bedbound state, atrial fibrillation, congestive heart failure, insulin-dependent diabetes, coronary artery disease, DVT with IVC filter, COPD, MRSA pneumonia, ESBL UTI, and CRE Klebsiella. She presents with 48 hours of shortness of breath and nonproductive cough prompting evaluation emergency room where she is found to have leukocytosis and a left lower lobe infiltrate. She is a intermediate resident and started on vancomycin and Zosyn and referred to the hospitalist for admission. Patient denies chest pain nausea or vomiting. She verifies her CODE STATUS is DNR Past Medical History Cardiac Medical History: Reports: Atrial Fibrillation, Congestive Heart Failure - Diastolic dysfunction, Coronary Artery Disease, DVT, Myocardial Infarction, Hyperlipidema, Hypertension - essential, Pulmonary Embolism, Heart Murmur Denies: Peripheral Vascular Disease Pulmonary Medical History: Reports: Asthma, Bronchitis, Chronic Obstructive Pul monary Disease (COPD), Pneumonia - Recurrent MRSA pneumonia., Respiratory Failure - Chronic, Sleep Apnea - Uses C Pap Denies: Tuberculosis Neurological Medical History: Denies: Seizures Endocrine Medical History: Reports: Diabetes Mellitus Type 1, Diabetes Mellitus Type 2 Denies: Hyperthyroidism, Hypothyroidism GI Medical History: Reports: Gastroesophageal Reflux Disease, Hiatal Hernia Denies: Cirrhosis, Hepatitis Musculoskeltal Medical History: Reports: Arthritis, Fibromyalgia, Gout Skin Medical History: Denies: Eczema, Psoriasis Psychiatric Medical History: Reports: Depression Hematology: Reports: Anemia Infectious Medical History: Reports: Clostridium Difficile, Methicillin-Resista nt Staph Aureus Past Surgical History Past Surgical History: Reports: Appendectomy, Cholecystectomy, Hysterectomy, Orthopedic Surgery - Multiple left hip procedures, 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 Social History Information Source: Patient, Emergency Med Personnel, [facility] Records Lives with: Long Term Smoking Status: Former Smoker Frequency of Alcohol Use: None Hx Recreational Drug Use: No Drugs: None Hx Prescription Drug Abuse: No - Advance Directive Resuscitation Status: Do Not Resuscitate Family History Family History: Reviewed & Not Pertinent, Arthritis, CAD, CVA, DM, Hyper lipidemia, Hypertension Parental Family History Reviewed: Yes Children Family History Reviewed: Yes Sibling(s) Family History Reviewed.: Yes Medication/Allergy Home Medications: Acetaminophen [Tylenol 325 mg Tablet] 650 mg PO Q4HP PRN 09/09/17 Acetylcysteine [Mucomist 10% Neb 400 mg/4 mL Vial] 400 mg NEB RTQ6 09/09/17 Ascorbic Acid [Vitamin C 500 mg Tablet] 500 mg PO BID 09/09/17 Aspirin [Aspirin 81 mg Chewable Tablet] 81 mg PO DAILY 09/09/17 Benzocaine/Menthol [Chloraseptic Sore Throat Lozenge] 1 ru PO Q1HP PRN 09/09/17 Budesonide [Pulmicort 180 mcg Flexhaler] 2 puff IH Q12 09/09/17 Buspirone HCl [Buspar 5 mg Tablet] 5 mg PO Q12 09/09/17 Carboxymethylcellulose Sodium [Refresh Plus 0.5% Oph Soln 0.4 ml Droperette] 1 drop OU QID 09/09/17 Duloxetine HCl [Cymbalta] 90 mg PO DAILY 09/09/17 Ergocalciferol (Vitamin D2) [Drisdol 50,000 unit (1.25MG) Capsule] 50,000 unit PO [id number] 09/09/17 Ferrous Sulfate [Feosol 325 mg Tablet] 325 mg PO BID 09/09/17 Fluticasone/Salmeterol [Advair 500-50 Diskus 14 Dose/Diskus] 1 puff IH Q12 09/09/17 Hydralazine HCl [Apresoline 25 mg Tablet] 25 mg PO Q8 09/09/17 Insulin Lispro [Humalog Insulin (Lispro) 100 unit/mL] 0 units SQ .SLIDING SCALE 09/09/17 Ipratropium/Albuterol Sulfate [Iprat-Albut 0.5-3(2.5) mg/3 ml] 3 ml NEB [id number] 09/09/17 Lactulose [Enulose 10 gm/15 mL Oral Solution] 15 ml PO BIDP PRN 09/09/17 Levalbuterol HCl [Xopenex Neb 0.63 mg/3 ml Ampul] 0.63 mg NEB RTQ8 09/09/17 Magnesium Hydroxide [Milk of Magnesia 30 ml Udcup] 30 ml PO DAILYP PRN 09/09/17 Melatonin 10 mg PO QHS 09/09/17 Nitroglycerin [Nitrostat] 0.4 mg SL Q5MP PRN 09/09/17 Omeprazole 20 mg PO Q6AM 09/09/17 Polyethylene Glycol 3350 [Miralax Powder 17 gm/Packet] 17 gm PO DAILY 09/09/17 Ranitidine HCl [Zantac 150 mg Tablet] 150 mg PO Q12 09/09/17 Ranolazine [Ranexa 500 mg Tab.sr] 500 mg PO Q12 09/09/17 Roflumilast [Daliresp 500 mcg Tablet] 500 mcg PO DAILY 09/09/17 Sennosides/Docusate 8.6-50 mg [Senna Plus Tablet] 1 tab PO QHS 09/09/17 Tiotropium [place] [Spiriva Handihaler 5 Cap/Kit (18 Mcg/Cap)] 1 cap IH DAILY 09/09/17 Docusate Sodium [Colace 100 mg Capsule] 100 mg PO BID capsule 09/16/17 Guaifenesin [Mucinex] 600 mg PO Q12 04/08/18 Insulin Detemir [Levemir Flextouch] 32 units SQ DAILY #1 insuln.pen 04/13/18 Baclofen 10 mg PO Q8HP PRN 06/03/18 Linaclotide [Linzess 145 Mcg Capsule] 145 mcg PO [id number] 06/03/18 Potassium Chloride [K-Tab ER] 40 meq PO DAILY 06/03/18 Promethazine HCl [Phenergan 25 mg Tablet] 12.5 mg PO Q4HP PRN 06/03/18 Furosemide [Lasix 40 mg Tablet] 40 mg PO BID 06/06/18 Evening [place] Oil 500 mg PO TID 07/02/18 Pregabalin [Lyrica 25 mg Capsule] 25 mg PO Q8 07/02/18 Diltiazem HCl [Cardizem 30 mg Tablet] 30 mg PO Q8 tablet 07/09/18 Fentanyl [Duragesic 25 mcg/hr Transdermal Patch] 1 each TD Q3D #3 patch.[id number] 07/09/18 Metoprolol Succinate [Toprol Xl 25 mg Tab.sr] 25 mg PO DAILY tab.sr.24h 07/09/18 Prednisone [Deltasone 20 mg Tablet] 20 mg PO DAILY #0 07/09/18 Amox Tr/Potassium Clavulanate [Augmentin 875-125 mg Tablet] 1 tab PO BID 09/30/18 Benzonatate [Tessalon Perles 100 mg Capsule] 100 mg PO BIDP PRN 09/30/18 Bupropion HCl [Wellbutrin 75 mg Tablet] 75 mg PO DAILY 09/30/18 Diclofenac Sodium [Voltaren] 2 gm TOP Q8HP PRN 09/30/18 Fexofenadine HCl [Shaniqua Allergy] 180 mg PO DAILYP PRN 09/30/18 Fluticasone Propionate [Flonase Nasal [place] 50 Mcg/[place] 16 gm] 1 spray NASL DAILY 09/30/18 Mirabegron [Myrbetriq] 25 mg PO DAILY 09/30/18 Olopatadine HCl [Pataday] 1 drop OU DAILY 09/30/18 Oxycodone HCl [Oxy-Ir 5 mg Tablet] 7.5 mg PO Q8HP PRN 09/30/18 Phenazopyridine HCl [Urinary Pain Relief] 190 mg PO Q8HP PRN 09/30/18 Polymyxin B Sulfate/Tmp [Polytrim Oph Soln 10 ml] 1 drop OD QID 09/30/18 Trazodone HCl [Desyrel 50 mg Tablet] 25 mg PO QHS 09/30/18 Allergies/Adverse Reactions: Sulfa (Sulfonamide Antibiotics) Allergy (Intermediate, Verified 02/03/18 09:37) adhesive tape Allergy (Verified 02/03/18 09:37) atorvastatin calcium [From Lipitor] Allergy (Verified 02/03/18 09:37) celecoxib [From Celebrex] Allergy (Verified 02/03/18 09:37) Review of Systems Constitutional: PRESENT: as per HPI, anorexia, chills, fatigue, weakness. ABSENT: fever(s) Eyes: ABSENT: visual disturbances Ears: ABSENT: hearing changes Cardiovascular: ABSENT: chest pain, dyspnea on exertion, palpitations Respiratory: PRESENT: as per HPI, cough, dyspnea. ABSENT: hemoptysis, sputum Gastrointestinal: ABSENT: abdominal pain, constipation, diarrhea, hematemesis, hematochezia, nausea, vomiting Genitourinary: ABSENT: dysuria, hematuria Musculoskeletal: ABSENT: joint swelling Integumentary: ABSENT: rash, wounds Neurological: ABSENT: abnormal gait, abnormal speech, confusion, dizziness, focal weakness, syncope Psychiatric: ABSENT: anxiety, depression, homidical ideation, suicidal ideation Endocrine: ABSENT: cold intolerance, heat intolerance, polydipsia, polyuria Hematologic/Lymphatic: ABSENT: easy bleeding, easy bruising Physical Exam Vital Signs: Temp Pulse Resp BP Pulse Ox 98.8 F 81 18 125/54 L 96 01/02/19 03:46 01/02/19 03:56 01/02/19 03:46 01/02/19 03:46 01/02/19 03:46 Intake & Output 12/31/18 01/01/19 01/02/19 11:59 11:59 11:59 Weight 89.4 kg General appearance: PRESENT: cooperative, hard of hearing, mild distress. ABSENT: severe distress Head exam: PRESENT: atraumatic, normocephalic Eye exam: PRESENT: conjunctiva pink, EOMI, PERRLA. ABSENT: scleral icterus Ear exam: PRESENT: normal external ear exam Mouth exam: PRESENT: dry mucosa, tongue midline Throat exam: ABSENT: tonsillar exudate Neck exam: ABSENT: carotid bruit, JVD, lymphadenopathy, thyromegaly Respiratory exam: PRESENT: accessory muscle use, crackles, prolonged expiratory phas, rales, retraction, rhonchi, tachypnea. ABSENT: wheezes Cardiovascular exam: PRESENT: gallop, RRR. ABSENT: diastolic murmur, rubs, systolic murmur Pulses: PRESENT: normal dorsalis pedis pul Vascular exam: PRESENT: normal capillary refill GI/Abdominal exam: PRESENT: normal bowel sounds, soft. ABSENT: distended, guarding, mass, organolmegaly, rebound, tenderness Rectal exam: PRESENT: deferred Extremities exam: PRESENT: full ROM. ABSENT: calf tenderness, clubbing, pedal edema Neurological exam: PRESENT: alert, awake, oriented to person, oriented to place, oriented to time, oriented to situation, CN II-XII grossly intact. ABSENT: motor sensory deficit Psychiatric exam: PRESENT: appropriate affect, normal mood. ABSENT: homicidal ideation, suicidal ideation Skin exam: PRESENT: dry, intact, warm. ABSENT: cyanosis, rash Results Laboratory Results: 01/01/19 22:40 01/01/19 22:40 01/01/19 01/01/19 01/01/19 22:40 22:40 22:40 WBC 18.6 H RBC 3.62 L Hgb 10.4 L Hct 31.6 L MCV 87 MCH 28.7 MCHC 32.8 RDW 15.1 H Plt Count 193 Seg Neutrophils % 84.7 H Lymphocytes % 7.4 L Monocytes % 7.5 Eosinophils % 0.1 Basophils % 0.3 Absolute Neutrophils 15.8 H Absolute Lymphocytes 1.4 Absolute Monocytes 1.4 Absolute Eosinophils 0.0 Absolute Basophils 0.1 Sodium 137.9 Potassium 4.3 Chloride 99 Carbon Dioxide 31 H Anion Gap 8 BUN 28 H Creatinine 1.20 Est GFR ( Amer) 53 L Est GFR (Non-Af Amer) 44 L Glucose 156 H Lactic Acid 1.4 Calcium 9.4 Total Bilirubin 0.4 AST 17 ALT 18 Alkaline Phosphatase 95 Total Protein 6.7 Albumin 3.6 Urine Color Urine Appearance Urine pH Ur Specific [place] Urine Protein Urine Glucose (UA) Urine Ketones Urine Blood Urine Nitrite Ur Leukocyte Esterase Urine WBC (Auto) Urine RBC (Auto) 01/01/19 22:56 WBC RBC Hgb Hct MCV MCH MCHC RDW Plt Count Seg Neutrophils % Lymphocytes % Monocytes % Eosinophils % Basophils % Absolute Neutrophils Absolute Lymphocytes Absolute Monocytes Absolute Eosinophils Absolute Basophils Sodium Potassium Chloride Carbon Dioxide Anion Gap BUN Creatinine Est GFR ( Amer) Est GFR (Non-Af Amer) Glucose Lactic Acid Calcium Total Bilirubin AST ALT Alkaline Phosphatase Total Protein Albumin Urine Color YELLOW Urine Appearance SLIGHTLY-CLOUDY Urine pH 6.0 Ur Specific [place] 1.009 Urine Protein NEGATIVE Urine Glucose (UA) NEGATIVE Urine Ketones NEGATIVE Urine Blood NEGATIVE Urine Nitrite POSITIVE H Ur Leukocyte Esterase LARGE H Urine WBC (Auto) 25 Urine RBC (Auto) 4 Impressions: Chest X-Ray 01/01/19 22:31 IMPRESSION: Moderate left lower lobar pneumonia. Recommend CR/CT surveillance including at 7-12 weeks following initiation of any clinically warranted therapy. Assessment and Plan - Diagnosis (1) Pneumonia Qualifiers: Pneumonia type: due to unspecified organism Laterality: unspecified laterality Lung location: unspecified part of lung Qualified Code(s): J18.9 - Pneumonia, unspecified organism Is this a current diagnosis for this admission?: Yes Plan: Healthcare associated, pneumonia care set initiated, Zosyn and vancomycin ordered, incentive spirometry and flutter valve, supplemental oxygen albuterol Atrovent. Follow-up CBC and blood culture (2) COPD exacerbation Is this a current diagnosis for this admission?: Yes Plan: Incentive spirometry, flutter valve and supplemental oxygen (3) Diabetes mellitus Qualifiers: Diabetes mellitus type: type 2 Diabetes mellitus tricot knitter insulin use: with tricot knitter use Diabetes mellitus complication detail: with chronic kidney disease Chronic kidney disease stage: stage 3 (moderate) Is this a current diagnosis for this admission?: Yes Plan: Diabetic diet, Humalog sliding scale ordered QIC PRN - Time Time Spent with patient: 35 or more minutes - Inpatient Certification Medical Necessity: Need Close Monitoring Due to Risk of Patient Decompensation
[2019-01-02 05:06] LABS: ABSOLUTE LYMPHOCYTES (AUTO) 1.5 10^3/uL (0.5-4.7); ABSOLUTE NEUT (AUTO) 12.8 10^3/uL (1.7-8.2); BASOPHILS % (AUTO) 0.2 % (0-2); EOSINOPHILS % (AUTO) 0.2 % (0-6); HEMATOCRIT 29.9 % (36.0-47.0); HEMOGLOBIN 9.7 g/dL (12.0-15.5); LYMPHOCYTES % (AUTO) 9.6 % (13-45); MEAN CORPUSCULAR HEMOGLOBIN 28.6 pg (27.0-33.4); MEAN CORPUSCULAR HGB CONC 32.5 g/dL (32.0-36.0); MEAN CORPUSCULAR VOLUME 88 fl (80-97); MONOCYTES % (AUTO) 6.5 % (3-13); PLATELET COUNT 173 10^3/uL (150-450); RED CELL DISTRIBUTION WIDTH 15.3 % (11.5-14.0); SEGMENTED NEUTROPHILS % (AUTO) 83.5 % (42-78); TOTAL CELLS COUNTED % (AUTO) 100 %; WHITE BLOOD COUNT 15.4 10^3/uL (4.0-10.5)
[2019-01-02] MEDS: CHLORPHENIRAMINE MALEATE 4 MG TABLET PO SCH ×3 (05:13→18:14)
[2019-01-02] MEDS: HEPARIN SOD (PORCINE) 5,000 UNIT/ML 1 ML SYRINGE SUBCUT SCH ×3 (05:13→21:58)
[2019-01-02] MEDS: DILTIAZEM HCL 60 MG TABLET PO SCH ×2 (05:13→11:42)
[2019-01-02] MEDS: PIPERACILLIN SODIUM/TAZOBACTAM 3.375 GM in NORMAL SALINE 100 ML IV SCH ×3 (05:14→18:13)
[2019-01-02] MEDS ORDERED: PIPERACILLIN/TAZOBACTAM 3.375 GM VIAL IV ONE (05:51)
[2019-01-02] MEDS: INSULIN LISPRO 100 UNIT/ML 3 ML VIAL SUBCUT SCH ×3 (07:51→18:13)
[2019-01-02] MEDS: FLUTICASONE NASAL SPRAY 50 MCG/SPRY 120 SPRAY/16 GM NASL SCH ×2 (11:42→21:58)
[2019-01-02] MEDS ORDERED: NITROGLYCERIN 0.4 MG/TAB 25 TAB/BOTTLE SL PRN (13:46)
[2019-01-02] MEDS ORDERED: ALBUTEROL SULFATE HFA (90 MCG/PUFF) 200 PUFF/8.5 GM MDI IH PRN (13:46)
[2019-01-02] MEDS ORDERED: PROMETHAZINE HCL 25 MG TABLET PO PRN (13:46)
--- NOTE | 2019-01-02 13:46 | Progress Note ---
Provider Note Provider Note: 73-year-old female who was admitted after midnight for shortness of breath and pneumonia. Saw patient briefly this morning and discussed about her care with antibiotics and bronchial hygiene. Her WBC count is trending down. Today she is complaining of just having neck pain and back pain and hip pain and just about pain everywhere. She is also requesting STD that she likes them better. She continues to have some wheezing on exam. We will continue with current management and reevaluate patient in the morning.
[2019-01-02] MEDS ORDERED: DILTIAZEM HCL 30 MG TABLET PO SCH (14:00)
[2019-01-02] MEDS: ACETAMINOPHEN 325 MG TABLET PO PRN (14:03)
[2019-01-02] MEDS: HYDRALAZINE HCL 25 MG TABLET PO SCH ×2 (15:10→21:57)
[2019-01-02] MEDS: PREGABALIN 25 MG CAPSULE PO SCH ×2 (15:10→21:57)
[2019-01-02] MEDS: MAGNESIUM OXIDE 400 MG TABLET PO SCH (15:10)
[2019-01-02] MEDS ORDERED: LEVALBUTEROL HCL NEB 0.63 MG/3 ML AMPUL NEB SCH (16:00)
[2019-01-02] MEDS: DOCUSATE SODIUM 100 MG CAPSULE PO SCH (18:14)
[2019-01-02] MEDS: FUROSEMIDE 40 MG TABLET PO SCH (18:14)
[2019-01-02] MEDS: OXYCODONE HCL IR 5 MG TABLET PO PRN (21:57)
[2019-01-02] MEDS: VANCOMYCIN HCL 1,000 MG in DEXTROSE 5%-WATER 250 ML IV SCH (21:57)
[2019-01-02] MEDS: DILTIAZEM HCL 30 MG TABLET PO SCH (21:57)
[2019-01-02] MEDS: AMITRIPTYLINE HCL 10 MG TABLET PO SCH (21:57)
[2019-01-02] MEDS: RANOLAZINE 500 MG TAB.SR.12H PO SCH (22:00)
[2019-01-02] MEDS ORDERED: (PENDING PHARMACY ID) (Fluticasone/Salmeterol 1 PUFF) IH SCH (22:00)
[2019-01-03] MEDS: IPRATROPIUM/ALBUTEROL 0.5-2.5 MG/3 ML AMPUL NEB SCH ×4 (01:48→20:04)
[2019-01-03 04:36] LABS: ABSOLUTE LYMPHOCYTES (AUTO) 1.7 10^3/uL (0.5-4.7); ABSOLUTE NEUT (AUTO) 7.3 10^3/uL (1.7-8.2); BASOPHILS % (AUTO) 0.2 % (0-2); EOSINOPHILS % (AUTO) 0.4 % (0-6); HEMATOCRIT 30.2 % (36.0-47.0); LYMPHOCYTES % (AUTO) 17.1 % (13-45); MEAN CORPUSCULAR HGB CONC 33.2 g/dL (32.0-36.0); MEAN CORPUSCULAR VOLUME 87 fl (80-97); MONOCYTES % (AUTO) 9.8 % (3-13); PLATELET COUNT 166 10^3/uL (150-450); RED BLOOD COUNT 3.45 10^6/uL (3.72-5.28); SEGMENTED NEUTROPHILS % (AUTO) 72.5 % (42-78); TOTAL CELLS COUNTED % (AUTO) 100 %; WHITE BLOOD COUNT 10.1 10^3/uL (4.0-10.5)
[2019-01-03] MEDS: CHLORPHENIRAMINE MALEATE 4 MG TABLET PO SCH (06:44)
[2019-01-03] MEDS: PREGABALIN 25 MG CAPSULE PO SCH ×3 (06:45→21:15)
[2019-01-03] MEDS: OXYCODONE HCL IR 5 MG TABLET PO PRN ×2 (06:45→21:16)
[2019-01-03] MEDS: BACLOFEN 10 MG TABLET PO PRN ×2 (06:45→21:16)
[2019-01-03] MEDS: PIPERACILLIN SODIUM/TAZOBACTAM 3.375 GM in NORMAL SALINE 100 ML IV SCH ×5 (06:46→18:04)
[2019-01-03] MEDS: HYDRALAZINE HCL 25 MG TABLET PO SCH ×3 (06:48→21:24)
[2019-01-03] MEDS: DILTIAZEM HCL 30 MG TABLET PO SCH ×3 (06:49→21:14)
[2019-01-03] MEDS: HEPARIN SOD (PORCINE) 5,000 UNIT/ML 1 ML SYRINGE SUBCUT SCH ×3 (06:49→21:16)
[2019-01-03] MEDS: INSULIN LISPRO 100 UNIT/ML 3 ML VIAL SUBCUT SCH ×3 (07:43→18:05)
[2019-01-03] MEDS: DOCUSATE SODIUM 100 MG CAPSULE PO SCH ×2 (11:00→18:04)
[2019-01-03] MEDS: ACETAMINOPHEN 325 MG TABLET PO PRN ×2 (11:00→18:04)
[2019-01-03] MEDS: FERROUS SULFATE 325 MG TABLET PO SCH (11:00)
[2019-01-03] MEDS: FUROSEMIDE 40 MG TABLET PO SCH ×2 (11:00→18:04)
[2019-01-03] MEDS: RANOLAZINE 500 MG TAB.SR.12H PO SCH ×2 (11:00→21:15)
[2019-01-03] MEDS: FLUTICASONE/VILANTEROL 200-25 MCG/DOSE IH SCH (11:01)
[2019-01-03] MEDS: TIOTROPIUM BROMIDE DPI 5 CAP/KIT (18 MCG/CAP) IH SCH (11:01)
[2019-01-03] MEDS: FLUTICASONE NASAL SPRAY 50 MCG/SPRY 120 SPRAY/16 GM NASL SCH ×2 (11:02→21:14)
[2019-01-03] MEDS: METOPROLOL SUCCINATE 25 MG TAB.SR.24H PO SCH (11:05)
[2019-01-03] MEDS: MAGNESIUM HYDROXIDE SUSP 30 ML UDCUP PO PRN (11:19)
[2019-01-03] MEDS ORDERED: (PENDING PHARMACY ID) (Lactulose [Constulose 10 Gm/15 Ml Oral Solution] 15 ML) PO PRN (15:04)
--- NOTE | 2019-01-03 15:14 | PDOC PROGRESS REPORT ---
Subjective Progress Note for:: 01/03/19 Subjective:: Saw patient this morning at bedside along with her nurse. Discussed about her care. She is wanting her fentanyl but I told her that her blood pressure is on the low side so the fentanyl might not be a good idea at this time. She understands and agrees. Later after rounds nursing called me again that she seems to be in A. fib now. Spoke with patient and it seems that she has a history of atrial fibrillation and she is on metoprolol. But she is not on a blood thinner and I discussed this with her. She tells me that she had a history of bleeding and hence her doctor had taken her off of it. I discussed about the risks and benefits of anticoagulation in the setting of atrial fibrillation. She understands agrees the risk of not being on a blood thinner at this time. Reason For Visit: COPD EXACERBATION PNEUMONIA Physical Exam Vital Signs: Temp Pulse Resp BP Pulse Ox 98.7 F 65 18 102/43 L 97 01/03/19 13:17 01/03/19 13:19 01/03/19 13:17 01/03/19 13:19 01/03/19 13:17 Intake & Output 01/02/19 01/03/19 01/04/19 06:59 06:59 06:59 Intake Total 120 1236 450 Output Total 1000 2950 Balance -880 -1714 450 Weight 195 lb 1.745 oz 183 lb 13.848 oz General appearance: PRESENT: no acute distress Head exam: PRESENT: atraumatic, normocephalic Eye exam: PRESENT: EOMI. ABSENT: scleral icterus Mouth exam: PRESENT: moist, tongue midline Neck exam: ABSENT: tracheal deviation Respiratory exam: PRESENT: decreased breath sounds - Decreased breath sound bilaterally and mostly at the bases., symmetrical Cardiovascular exam: PRESENT: irregular rhythm, +S1, +S2 Pulses: ABSENT: +2 pedal pulses bilateral GI/Abdominal exam: PRESENT: normal bowel sounds, soft. ABSENT: tenderness Extremities exam: ABSENT: pedal edema Neurological exam: PRESENT: alert, awake, oriented to person, oriented to place, oriented to time, oriented to situation, CN II-XII grossly intact Skin exam: PRESENT: dry, warm Results Laboratory Results: 01/03/19 04:13 01/01/19 22:40 01/03/19 04:13 WBC 10.1 RBC 3.45 L Hgb 10.0 L Hct 30.2 L MCV 87 MCH 29.0 MCHC 33.2 RDW 15.0 H Plt Count 166 Seg Neutrophils % 72.5 Lymphocytes % 17.1 Monocytes % 9.8 Eosinophils % 0.4 Basophils % 0.2 Absolute Neutrophils 7.3 Absolute Lymphocytes 1.7 Absolute Monocytes 1.0 Absolute Eosinophils 0.0 Absolute Basophils 0.0 Impressions: Chest X-Ray 01/01/19 22:31 IMPRESSION: Moderate left lower lobar pneumonia. Recommend CR/CT surveillance including at 7-12 weeks following initiation of any clinically warranted therapy. Assessment and Plan - Diagnosis (1) Acute and chronic respiratory failure with hypoxia Is this a current diagnosis for this admission?: Yes (2) Pneumonia Qualifiers: Pneumonia type: due to unspecified organism Laterality: unspecified lateral ity Lung location: unspecified part of lung Qualified Code(s): J18.9 - Pneumonia, unspecified organism Is this a current diagnosis for this admission?: Yes (3) Diabetes mellitus type II, controlled Qualifiers: Diabetes mellitus rodent exterminator insulin use: with custodial use Diabetes mellitus complication status: with hyperglycemia Qualified Code(s): E11.65 - Type 2 diabetes mellitus with hyperglycemia; Z79.4 - termite renewal inspector (current) use of insulin; Z79.4 - termite renewal inspector (current) use of insulin; Z79.4 - care home (current) use of insulin; Z79.4 - care home (current) use of insulin Is this a current diagnosis for this admission?: Yes (4) Obstructive sleep apnea Is this a current diagnosis for this admission?: Yes (5) Paroxysmal A-fib Is this a current diagnosis for this admission?: Yes (6) Hypertension Qualifiers: Hypertension type: essential hypertension Qualified Code(s): I10 - Essential (primary) hypertension Is this a current diagnosis for this admission?: Yes (7) COPD (chronic obstructive pulmonary disease) Qualifiers: Emphysema type: unspecified Is this a current diagnosis for this admission?: Yes - Plan Summary Plan Summary: Acute respiratory failure-most likely secondary to her left lower lobe pneumonia. Continue with IV Vanco and Zosyn since she is a resident of [facility]. Continue with bronchial hygiene. I have restarted some of her home meds of Pulmicort and continue her DuoNeb every 6 hours here. COPD-does not seem to be an exacerbation at this time and she is not wheezing or having difficulty with it. We will continue with her home nebulizer and inhalers. Diabetes mellitus type 2-hold home medications and continue sliding scale insulin at this time. PAF-due to informed by nursing that her heart rate dropped and she is now in A. fib. But her heart rate is well controlled with less than 110. We have continued with her home metoprolol and Cardizem dose. But she did not have any anticoagulation on board. I discussed this with her. She tells me that she had a GI bleed in past admission another doctor has stopped her anticoagulation. I discussed about the risks and benefits about anticoagulation for atrial fibrillation and even . She understands the risks of not being on anticoagulation. We will continue to monitor. Hypertension-we will continue with her home dose of hydralazine.
[2019-01-03] MEDS ORDERED: LACTULOSE SYRUP 20 GM/30 ML UDCUP PO PRN (15:23)
[2019-01-03] MEDS ORDERED: (PENDING PHARMACY ID) (Ketotifen Fumarate [Refresh] 1 DROP) OU SCH (18:00)
[2019-01-03] MEDS ORDERED: (PENDING PHARMACY ID) (Ranitidine Hcl [Zantac 150 Mg Tablet] 150 MG) PO SCH (18:00)
[2019-01-03] MEDS: FAMOTIDINE 20 MG TABLET PO SCH (18:04)
[2019-01-03] MEDS: CARBOXYMETHYLCELLULOSE SOD 0.5% 0.4 ML DROPERETTE OU SCH ×2 (18:05→21:14)
[2019-01-03] MEDS: BUDESONIDE NEB 0.25 MG/2 ML AMPUL NEB SCH (20:06)
[2019-01-03] MEDS: VANCOMYCIN HCL 1,000 MG in DEXTROSE 5%-WATER 250 ML IV SCH (21:14)
[2019-01-03] MEDS: OLOPATADINE HCL 0.1% OPH SOLN 5 ML OU SCH (21:14)
[2019-01-03] MEDS: GUAIFENESIN 600 MG TABLET.SA PO SCH (21:15)
[2019-01-03] MEDS: BUSPIRONE HCL 10 MG TABLET PO SCH (21:15)
[2019-01-03] MEDS: AMITRIPTYLINE HCL 10 MG TABLET PO SCH (21:16)
[2019-01-03] MEDS ORDERED: (PENDING PHARMACY ID) (Buspirone Hcl [Buspar 5 Mg Tablet] 5 MG) PO SCH (22:00)
[2019-01-04] MEDS: PIPERACILLIN SODIUM/TAZOBACTAM 3.375 GM in NORMAL SALINE 100 ML IV SCH ×4 (00:28→17:46)
[2019-01-04] MEDS: IPRATROPIUM/ALBUTEROL 0.5-2.5 MG/3 ML AMPUL NEB SCH ×4 (02:10→19:43)
[2019-01-04] MEDS: HEPARIN SOD (PORCINE) 5,000 UNIT/ML 1 ML SYRINGE SUBCUT SCH ×3 (05:27→22:31)
[2019-01-04] MEDS: PREGABALIN 25 MG CAPSULE PO SCH ×3 (05:31→22:17)
[2019-01-04] MEDS: FAMOTIDINE 20 MG TABLET PO SCH ×2 (05:31→17:41)
[2019-01-04] MEDS: BACLOFEN 10 MG TABLET PO PRN ×2 (05:36→17:41)
[2019-01-04] MEDS: OXYCODONE HCL IR 5 MG TABLET PO PRN ×2 (05:37→17:42)
[2019-01-04] MEDS: DILTIAZEM HCL 30 MG TABLET PO SCH ×3 (05:37→22:17)
[2019-01-04] MEDS: HYDRALAZINE HCL 25 MG TABLET PO SCH ×3 (05:37→22:16)
[2019-01-04] MEDS: BUDESONIDE NEB 0.25 MG/2 ML AMPUL NEB SCH ×2 (08:23→19:43)
[2019-01-04] MEDS: INSULIN LISPRO 100 UNIT/ML 3 ML VIAL SUBCUT SCH ×3 (09:27→17:55)
[2019-01-04] MEDS ORDERED: (PENDING PHARMACY ID) (Mirabegron [Myrbetriq] 25 MG) PO SCH (10:00)
[2019-01-04] MEDS ORDERED: (PENDING PHARMACY ID) (Roflumilast [Daliresp 500 Mcg Tablet] 500 MCG) PO SCH (10:00)
[2019-01-04] MEDS ORDERED: (PENDING PHARMACY ID) (Tolterodine Tartrate [Detrol] 2 MG) PO SCH (10:00)
[2019-01-04] MEDS: LIDOCAINE 5% (700 MG) TRANSDERMAL ADH..PATCH TP PRN (10:19)
[2019-01-04] MEDS: FLUTICASONE/VILANTEROL 200-25 MCG/DOSE IH SCH (10:25)
[2019-01-04] MEDS: RANOLAZINE 500 MG TAB.SR.12H PO SCH ×2 (10:27→22:19)
[2019-01-04] MEDS: BUSPIRONE HCL 10 MG TABLET PO SCH ×2 (10:28→22:16)
[2019-01-04] MEDS: CARBOXYMETHYLCELLULOSE SOD 0.5% 0.4 ML DROPERETTE OU SCH ×4 (10:28→22:20)
[2019-01-04] MEDS: DOCUSATE SODIUM 100 MG CAPSULE PO SCH ×2 (10:29→17:43)
[2019-01-04] MEDS: PREDNISONE 20 MG TABLET PO SCH (10:29)
[2019-01-04] MEDS: GUAIFENESIN 600 MG TABLET.SA PO SCH ×2 (10:29→22:19)
[2019-01-04] MEDS: FERROUS SULFATE 325 MG TABLET PO SCH (10:29)
[2019-01-04] MEDS: METOPROLOL SUCCINATE 25 MG TAB.SR.24H PO SCH (10:30)
[2019-01-04] MEDS: FUROSEMIDE 40 MG TABLET PO SCH ×2 (10:30→17:41)
[2019-01-04] MEDS: TOLTERODINE TARTRATE 1 MG TABLET PO SCH (10:31)
[2019-01-04] MEDS: ROFLUMILAST 500 MCG TABLET PO SCH (10:31)
[2019-01-04] MEDS: FLUTICASONE NASAL SPRAY 50 MCG/SPRY 120 SPRAY/16 GM NASL SCH ×2 (10:33→22:20)
[2019-01-04] MEDS: OLOPATADINE HCL 0.1% OPH SOLN 5 ML OU SCH ×2 (10:33→22:20)
[2019-01-04] MEDS: TIOTROPIUM BROMIDE DPI 5 CAP/KIT (18 MCG/CAP) IH SCH (10:34)
[2019-01-04] MEDS: ACETAMINOPHEN 325 MG TABLET PO PRN ×2 (10:43→18:59)
[2019-01-04] MEDS: MAGNESIUM OXIDE 400 MG TABLET PO SCH (13:18)
--- NOTE | 2019-01-04 16:11 | PDOC PROGRESS REPORT ---
Subjective Reason For Visit: COPD EXACERBATION PNEUMONIA Physical Exam Vital Signs: Temp Pulse Resp BP Pulse Ox 98.8 F 83 20 131/63 H 95 01/04/19 11:06 01/04/19 13:57 01/04/19 13:57 01/04/19 11:06 01/04/19 13:57 Intake & Output 01/03/19 01/04/19 01/05/19 06:59 06:59 06:59 Intake Total 1236 1500 660 Output Total 2950 2125 400 Balance -1714 -625 260 Weight 183 lb 13.848 oz 183 lb 13.848 oz Results Laboratory Results: 01/03/19 04:13 01/01/19 22:40 01/01/19 22:56 Barton Catheter Urine Culture - Final *Cre*Klebsiella Pneumoniae Pseudomonas Aeruginosa Impressions: Chest X-Ray 01/01/19 22:31 IMPRESSION: Moderate left lower lobar pneumonia. Recommend CR/CT surveillance including at 7-12 weeks following initiation of any clinically warranted therapy. Assessment and Plan - Diagnosis (1) Acute and chronic respiratory failure with hypoxia Is this a current diagnosis for this admission?: Yes (2) Pneumonia Qualifiers: Pneumonia type: due to unspecified organism Laterality: unspecified laterality Lung location: unspecified part of lung Qualified Code(s): J18.9 - Pneumonia, unspecified organism Is this a current diagnosis for this admission?: Yes (3) Diabetes mellitus type II, controlled Qualifiers: Diabetes mellitus terminal operations manager insulin use: with terminal operations manager use Diabetes mellitus complication status: with hyperglycemia Qualified Code(s): E11.65 - Type 2 diabetes mellitus with hyperglycemia; Z79.4 - terminal operations manager (current) use of insulin; Z79.4 - halfway (current) use of insulin; Z79.4 - terminal operations manager (current) use of insulin; Z79.4 - terminal operations manager (current) use of insulin Is this a current diagnosis for this admission?: Yes (4) Obstructive sleep apnea Is this a current diagnosis for this admission?: Yes (5) Paroxysmal A-fib Is this a current diagnosis for this admission?: Yes (6) Hypertension Qualifiers: Hypertension type: essential hypertension Qualified Code(s): I10 - Essential (primary) hypertension Is this a current diagnosis for this admission?: Yes (7) COPD (chronic obstructive pulmonary disease) Qualifiers: Emphysema type: unspecified Is this a current diagnosis for this admission?: Yes (8) Infection with multi-drug resistant microorganisms Is this a current diagnosis for this admission?: Yes (9) Colonization with multidrug-resistant bacteria Is this a current diagnosis for this admission?: Yes (10) UTI (urinary tract infection) due to urinary indwelling Barton catheter Qualifiers: Indwelling urinary catheter type: indwelling urethral catheter Encounter type: initial encounter Qualified Code(s): T83.511A - Infection and inflammatory reaction due to indwelling urethral catheter, initial encounter; N39.0 - Urinary tract infection, site not specified; N39.0 - Urinary tract infec tion, site not specified Is this a current diagnosis for this admission?: Yes - Plan Summary Plan Summary: Acute respiratory failure-most likely secondary to her left lower lobe pneumonia. Continue with IV Vanco and Zosyn, day #3. She is a resident of [facility]. Continue with bronchial hygiene. Continue Pulmicort and DuoNeb's UTI-with indwelling catheter. Patient states that she has had this indwelling catheter for over a year. She states she gets it switched out every month. Unfortunately she is currently growing CRE resistant totsdglp-arenktyqz-qolfzhrbb infection with Klebsiella and Pseudomonas. I spoke with pharmacy and they would like [place] [facility] [place] At this time we will continue with Zosyn and vancomycin. I think this is all colonization and not an acute state. COPD-does not seem to be an exacerbation at this time and she is not wheezing or having difficulty with it. We will continue with her home nebulizer and inhalers. Diabetes mellitus type 2-we will restart her insulin detemir lower dose from her usual home dose. Normally she is on 32 units and will start at 25 units. Continue with sliding scale insulin. PAF-continue with her home medication of metoprolol and Cardizem. Heart rate seems to be well controlled. I had a discussion with her about anticoagulation and the fact that she is not on any. She told me that shehas a history of bleeding and hence anticoagulation was stopped by her PCP outpatient. She understands the risks of not being on anticoagulation while she has atrial fibrillation. She understands that she can from this. Hypertension-we will continue with her home dose of hydralazine, metoprolol and Cardizem.
[2019-01-04] MEDS: NYSTATIN/DEXAMETH/DIPHEN SUSP 120 ML PO SCH ×2 (17:48→22:20)
[2019-01-04] MEDS ORDERED: TURMERIC PO SCH (18:00)
[2019-01-04] MEDS ORDERED: [UNRECOGNIZED DRUG - OTHER] PO SCH (18:00)
[2019-01-04 22:01] LABS: VANCOMYCIN,TROUGH 10.7 ug/mL (5.0-20.0)
[2019-01-04] MEDS: AMITRIPTYLINE HCL 10 MG TABLET PO SCH (22:19)
[2019-01-04] MEDS: VANCOMYCIN HCL 1,000 MG in DEXTROSE 5%-WATER 250 ML IV SCH (22:21)
[2019-01-05] MEDS: ACETAMINOPHEN 325 MG TABLET PO PRN ×3 (00:48→17:58)
[2019-01-05] MEDS: PIPERACILLIN SODIUM/TAZOBACTAM 3.375 GM in NORMAL SALINE 100 ML IV SCH ×4 (00:48→17:44)
[2019-01-05] MEDS: IPRATROPIUM/ALBUTEROL 0.5-2.5 MG/3 ML AMPUL NEB SCH ×4 (02:20→19:52)
[2019-01-05] MEDS: OXYCODONE HCL IR 5 MG TABLET PO PRN ×2 (03:22→15:08)
[2019-01-05] MEDS: BACLOFEN 10 MG TABLET PO PRN ×2 (03:22→15:24)
[2019-01-05] MEDS: PREGABALIN 25 MG CAPSULE PO SCH ×3 (05:00→22:24)
[2019-01-05] MEDS: HYDRALAZINE HCL 25 MG TABLET PO SCH ×3 (05:00→22:26)
[2019-01-05] MEDS: FAMOTIDINE 20 MG TABLET PO SCH ×2 (05:00→17:44)
[2019-01-05] MEDS: DILTIAZEM HCL 30 MG TABLET PO SCH ×3 (05:00→22:23)
[2019-01-05] MEDS: HEPARIN SOD (PORCINE) 5,000 UNIT/ML 1 ML SYRINGE SUBCUT SCH ×3 (05:00→22:25)
[2019-01-05] MEDS ORDERED: SIMETHICONE 80 MG TAB.CHEW PO PRN (08:01)
[2019-01-05] MEDS: BUDESONIDE NEB 0.25 MG/2 ML AMPUL NEB SCH ×2 (08:14→19:52)
[2019-01-05] MEDS: INSULIN LISPRO 100 UNIT/ML 3 ML VIAL SUBCUT SCH ×3 (08:19→16:13)
[2019-01-05 09:14] LABS: ABSOLUTE EOSINOPHILS # (AUTO) 0.1 10^3/uL (0.0-0.6); ABSOLUTE LYMPHOCYTES (AUTO) 1.4 10^3/uL (0.5-4.7); ABSOLUTE MONOCYTES (AUTO) 0.5 10^3/uL (0.1-1.4); ABSOLUTE NEUT (AUTO) 4.1 10^3/uL (1.7-8.2); BASOPHILS % (AUTO) 0.4 % (0-2); EOSINOPHILS % (AUTO) 1.2 % (0-6); HEMATOCRIT 29.7 % (36.0-47.0); LYMPHOCYTES % (AUTO) 23.8 % (13-45); MEAN CORPUSCULAR HGB CONC 33.6 g/dL (32.0-36.0); MEAN CORPUSCULAR VOLUME 87 fl (80-97); PLATELET COUNT 201 10^3/uL (150-450); RED BLOOD COUNT 3.43 10^6/uL (3.72-5.28); RED CELL DISTRIBUTION WIDTH 14.5 % (11.5-14.0); SEGMENTED NEUTROPHILS % (AUTO) 66.6 % (42-78); TOTAL CELLS COUNTED % (AUTO) 100 %; WHITE BLOOD COUNT 6.1 10^3/uL (4.0-10.5)
--- NOTE | 2019-01-05 09:17 | PDOC PROGRESS REPORT ---
Subjective Progress Note for:: 01/05/19 Subjective:: 73 year old female with a past medical history of chronic pain, bedbound state, atrial fibrillation, congestive heart failure, insulin-dependent diabetes, coronary artery disease, DVT with IVC filter, COPD, MRSA pneumonia, ESBL UTI, and CRE Klebsiella. She presents with 48 hours of shortness of breath and nonproductive cough prompting evaluation emergency room where she is found to have leukocytosis and a left lower lobe infiltrate. She is a [facility] resi dent and started on vancomycin and Zosyn and referred to the hospitalist for admission. Patient denies chest pain nausea or vomiting. She verifies her CODE STATUS is DNR 01/05/[id number]-lset-old female [facility] resident with multiple medical problems including atrial fibrillation, congestive heart failure, diabetes mellitus, coronary artery disease with history of DVT IVC filter history of COPD, MRSA pneumonia ESBL UTI CRE Klebsiella admitted with COPD exacerbation and pneumonia. Presently on IV vancomycin and Zosyn. No acute events in the last 24 hours. Afebrile. ID consult is pending. T-max is 98.1. Patient has difficulty getting IV access to be going to request for PICC line. And she is also requesting to restart her fentanyl patch because she has chronic pains and fibromyalgia. Reason For Visit: COPD EXACERBATION PNEUMONIA Physical Exam Vital Signs: Temp Pulse Resp BP Pulse Ox 98.1 F 81 14 120/58 L 95 01/04/19 23:18 01/05/19 08:13 01/05/19 08:13 01/05/19 04:00 01/05/19 08:13 Intake & Output 01/04/19 01/05/19 01/06/19 06:59 06:59 06:59 Intake Total 1500 0 Output Total 2121974 Balance -625 75 Weight 83.4 kg 83.4 kg General appearance: PRESENT: no acute distress, obese Head exam: PRESENT: atraumatic Eye exam: PRESENT: PERRLA Mouth exam: PRESENT: moist, tongue midline Neck exam: ABSENT: carotid bruit, JVD, lymphadenopathy, thyromegaly Respiratory exam: PRESENT: clear to auscultation elia, decreased breath sounds, wheezes. ABSENT: rales, rhonchi Cardiovascular exam: PRESENT: RRR. ABSENT: diastolic murmur, rubs, systolic murmur GI/Abdominal exam: PRESENT: normal bowel sounds, soft. ABSENT: distended, guarding, mass, organolmegaly, rebound, tenderness Rectal exam: PRESENT: deferred Extremities exam: PRESENT: full ROM. ABSENT: calf tenderness, clubbing, pedal edema Neurological exam: PRESENT: alert, awake, oriented to person, oriented to place, oriented to time, oriented to situation, CN II-XII grossly intact. ABSENT: motor sensory deficit Psychiatric exam: PRESENT: appropriate affect, normal mood. ABSENT: homicidal ideation, suicidal ideation Results Laboratory Results: 01/03/19 04:13 01/04/19 21:30 01/04/19 21:30 Creatinine 1.08 Est GFR ( Amer) > 60 Est GFR (Non-Af Amer) 49 L 01/02/19 05:27 Sputum Gram Stain - Final 01/02/19 05:27 Sputum Sputum Culture - Final Mrsa (Meth Resis Staph Aureus) C.albicans/C.dubliniensis Haemophilus Influenzae Normal Catarina 01/01/19 22:56 Barton Catheter Urine Culture - Final *Cre*Klebsiella Pneumoniae Pseudomonas Aeruginosa Impressions: Chest X-Ray 01/01/19 22:31 IMPRESSION: Moderate left lower lobar pneumonia. Recommend CR/CT surveillance including at 7-12 weeks following initiation of any clinically warranted therapy. Assessment and Plan - Diagnosis (1) Pneumonia Qualifiers: Pneumonia type: due to unspecified organism Laterality: unspecified lat erality Lung location: unspecified part of lung Qualified Code(s): J18.9 - Pneumonia, unspecified organism Is this a current diagnosis for this admission?: Yes Plan: Healthcare associated, pneumonia care set initiated, Zosyn and vancomycin ordered, incentive spirometry and flutter valve, supplemental oxygen albuterol Atrovent. Follow-up CBC and blood culture 01/05/2019-patient is admitted with a healthcare associated pneumonia on IV Zosyn and vancomycin at this time blood cultures are negative sputum culture shows MRSA urine shows a CRE Klebsiella. Afebrile with a temperature 98.1 on examination of the chest bilateral entry was decreased bilateral minimal wheezing is present. ID consult was requested plan is to continue the present management in the meantime. Positive organism most likely MRSA. (2) UTI (urinary tract infection) Qualifiers: Is this a current diagnosis for this admission?: No Plan: 01/05/2019-patient has chronic indwelling catheter and urine culture positive for CRE probably colonization. Presently on IV Zosyn and vancomycin. (3) COPD with exacerbation Is this a current diagnosis for this admission?: No Plan: 01/05/2019-patient has history of COPD not on home oxygen pulse ox is 100% on nasal cannula. On examination chest bilateral entry was decreased mild wheezing is present bilaterally and will continue the nebulizer treatments. Patient is on IV Zosyn and vancomycin sputum culture is positive for MRSA. (4) Acute and chronic respiratory failure with hypoxia Is this a current diagnosis for this admission?: Yes Plan: Acute respiratory failure-most likely secondary to her left lower lobe pneumonia. Continue with IV Vanco and Zosyn, day #3. [facility] is a resident of [facility]. Continue with bronchial hygiene. Continue Pulmicort and DuoNeb's 01/05/2019-patient admitted with acute on chronic respiratory failure with hypoxia most likely secondary to left-sided pneumonia. Presently on IV vancomycin and Zosyn day 4 afebrile sputum culture is positive for MRSA. (5) Atrial fibrillation with rapid ventricular response Is this a current diagnosis for this admission?: No Plan: continue with her home medication of metoprolol and Cardizem. Heart rate seems to be well controlled. I had a discussion with her about anticoagulation and the fact that she is not on any. She told me that shehas a history of bleeding and hence anticoagulation was stopped by her PCP outpatient. She understands the risks of not being on anticoagulation while she has atrial fibrillation. She understands that she can from this. 07/08/2018-patient has history of paroxysmal atrial fibrillation on metoprolol and Cardizem. Heart rate is well controlled. Patient is not on anticoagulation for atrial fibrillation. She does not know the reason. Does not want to be on anticoagulation at this time point. (6) Chronic diastolic CHF (congestive heart failure) Is this a current diagnosis for this admission?: No Plan: 01/06/2019-patient has history of chronic diastolic heart failure. Not in fluid overload. Plan is to continue the present management at this time. (7) Obesity (BMI 30.0-34.9) Is this a current diagnosis for this admission?: No Plan: 01/05/2019-patient BMI is more than 32 diet exercise weight loss lifestyle modifications are discussed with the patient. - Time Time Spent with patient: 15-24 minutes Smoking Cessation Education: over 10 minutes Medications reviewed and adjusted accordingly: Yes
--- NOTE | 2019-01-05 11:30 | RADIOLOGY REPORT (SQ) ---
EXAM DESCRIPTION: FLUORO/CV PLACEMENT; PICC INSERTION; U/S GUIDE FOR VASCULAR ACCESS COMPLETED DATE/TIME: 01/05/2019 10:52 am REASON FOR STUDY: IV ABX; iv acess for antibiotics COMPARISON: 01/01/2019 FLUOROSCOPY TIME: 0.3 1 digital fluoroscopic and 1 ultrasound images saved to PACS. TECHNIQUE: Fluoroscopic and ultrasound guided PICC placement. LIMITATIONS: None. PROCEDURE: After written consent and assessment were obtained, the patient was brought into the fluo roscopy room and placed supine on the table. Ultrasound evaluation of potential access sites were per formed. After successfully identifying a patent right basilic vein, the right arm was prepped and lexis ped in a sterile fashion along with the ultrasound probe. The entry site was anesthetized with 1% lid ocaine. A 21 gauge 7 cm needle was advanced through the skin and into the basilic vein under live ult rasound guidance. An ultrasound image was saved to PACS confirming access site. A .018 guide wire w as then inserted through the needle and into the venous system. The needle was then removed and an 11 blade scalpel was used to make a 1cm skin incision. A 5 fr peel-away sheath was advanced over the w rita and into the venous system. A measurement was then made using the existing wire and live fluorosc opic guidance. The wire was then removed and trimmed. The PICC was advanced through the peel-away she ath and into the venous system. The peel-away sheath was removed and the catheter was adhered to the patients arm with a stat lock. The catheter was then aspirated and flushed and a sterile bandage was placed over the access site. A fluoroscopic spot image was saved to PACS confirming the catheter tip within the superior vena cava. IMPRESSION: SUCCESSFUL PLACEMENT OF A 5 FR DUAL LUMEN 32 CM PICC IN THE RIGHT BASILIC VEIN. COMMENT: Patient medication list reviewed: Yes- Quality ID# 130:Eligible professional attests to doc umenting in the medical record they obtained, updated, or reviewed the patient's current medications. . Quality ID 145: Final reports for procedures using fluoroscopy that document radiation exposure jl artemio, or exposure time and number of fluorographic images (if radiation exposure indices are not avail able) Quality ID #76: The patient was prepped and draped using maximum sterile barrier technique including cap, mask, sterile gown, sterile gloves, a large sterile sheet, hand hygiene, and 2% Chlorhexidine fo r cutaneous antisepsis. When ultrasound is used, sterile ultrasound techniques are followed requiring sterile gel and sterile probes. TECHNICAL DOCUMENTATION: JOB ID: [id number] [employer]- All Rights Reserved rev-11/15 Reading location - IP/workstation name: [email or web address]
[2019-01-05] MEDS: FENTANYL 25 MCG/HR PATCH.TD72 TD SCH (11:33)
[2019-01-05] MEDS: CARBOXYMETHYLCELLULOSE SOD 0.5% 0.4 ML DROPERETTE OU SCH ×4 (11:34→22:25)
[2019-01-05] MEDS: BUSPIRONE HCL 10 MG TABLET PO SCH ×2 (11:35→22:24)
[2019-01-05] MEDS: ASCORBIC ACID 500 MG TABLET PO SCH ×2 (11:35→17:45)
[2019-01-05] MEDS: PREDNISONE 20 MG TABLET PO SCH (11:35)
[2019-01-05] MEDS: ROFLUMILAST 500 MCG TABLET PO SCH (11:35)
[2019-01-05] MEDS: METOPROLOL SUCCINATE 25 MG TAB.SR.24H PO SCH (11:36)
[2019-01-05] MEDS: TOLTERODINE TARTRATE 1 MG TABLET PO SCH (11:37)
[2019-01-05] MEDS: RANOLAZINE 500 MG TAB.SR.12H PO SCH ×2 (11:38→22:24)
[2019-01-05] MEDS: FUROSEMIDE 40 MG TABLET PO SCH ×2 (11:38→17:46)
[2019-01-05] MEDS: DOCUSATE SODIUM 100 MG CAPSULE PO SCH ×2 (11:39→17:45)
[2019-01-05] MEDS: GUAIFENESIN 600 MG TABLET.SA PO SCH ×2 (11:39→22:24)
[2019-01-05] MEDS: LIDOCAINE 5% (700 MG) TRANSDERMAL ADH..PATCH TP PRN (11:39)
[2019-01-05] MEDS: INSULIN GLARGINE,HUM.REC.ANLOG 1,000 UNIT/10 ML VIAL SUBCUT SCH (11:40)
[2019-01-05] MEDS: FERROUS SULFATE 325 MG TABLET PO SCH (11:41)
[2019-01-05] MEDS: TIOTROPIUM BROMIDE DPI 5 CAP/KIT (18 MCG/CAP) IH SCH (11:41)
[2019-01-05] MEDS: FLUTICASONE NASAL SPRAY 50 MCG/SPRY 120 SPRAY/16 GM NASL SCH ×2 (11:44→22:39)
[2019-01-05] MEDS: FLUTICASONE/VILANTEROL 200-25 MCG/DOSE IH SCH (11:44)
[2019-01-05] MEDS: OLOPATADINE HCL 0.1% OPH SOLN 5 ML OU SCH ×2 (11:45→22:27)
[2019-01-05] MEDS: NYSTATIN/DEXAMETH/DIPHEN SUSP 120 ML PO SCH ×4 (11:48→22:26)
[2019-01-05] MEDS: BENZONATATE 100 MG CAPSULE PO SCH ×2 (15:05→22:23)
--- NOTE | 2019-01-05 19:05 | Progress Note ---
Provider Note Provider Note: ID Consult Note Asked to review patient's chart. Pt not seen or examined. Pt is a 73 [facility] old female [facility] resident with PMH including chronic pain, obesity, CHF, AF, DM, CAD, DVT, COPD, and colonization with CRE Klebsiella. She presented to the ED on 01/01 with complaint of subjective fever, SOB and increased productive cough x 1-2 days. Her exam on admission was notable for tachypnea, accessory muscle use, and coarse breath sounds. She had stable vital signs, no abdominal tenderness, chronic indwelling ghotra and chronic appearing lower extremity edema. CXR was read as consistent with a left lower lobar pneumonia. Blood cultures have been negative. Urine culture grew CRE Klebsiella and Pseudomonas. Sputum sample grew 4+ MRSA, a colony of Haemophilus influenzae, C albicans and normal respiratory bekah. Pt has been afebrile. She has been on her usual level of oxgyen support (per prior notes 3 L). She has been receiving vancomycin and Zosyn. Impression/Recommendations Asymptomatic bacteriuria - In pt with chronic indwelling Ghotra, diagnosis of UTI (and differentiation of this from asymptomatic bacteriuria) is made challenging by lack of classic irritative urinary symptoms but also lack of clinical significance of finding pyuria on U/A (occurs due to presence of Ghotra in nearly all pts) and high frequency of colonization of urine (nearly all pts). Urinary tract infection is best reserved as a diagnosis of exclusion when there are compatible signs/symptoms of infection but no other etiology, given the difficulties in establishing the diagnosis and the frequency of antimicrobial overuse, which has negative consequences for the patient. - In the current case, Ms. Fernandez did not have objective fever, suprapubic discomfort or flank pain as suggestive symptoms or problems with her Ghotra to suggest some contribution of urinary retention as a predisposing factor for UTI, and her complaints were respiratory in nature. - No antibiotics indicated Pneumonia vs COPD exacerbation - MRSA was the predominant organism that grew along from her sputum along with normal respiratory bekah. MRSA can be a colonist in the upper airways, and its presence in a nonsterile site like sputum has to be interpreted in context. MRSA pneumonia tends to be severe and necrotizing, and her presentation does not appear to be consistent with this. The AP CXR this admission was read as suggestive of L lobar pneumonia, but she also has chronic scarring or atelectasis in the left lung base, and otherwise her presentation may also be compatible with acute COPD exacerbation. If there is diagnostic uncertainty, CT chest without contrast could be considered for further evaluation of the lung parenchyma. However, if she has returned to her baseline oxygen requirement and is clinically stable at this point, consider stopping her antibiotics and monitoring. Charli Orozco MD [facility] Infectious Diseases pager [phone]
[2019-01-05] MEDS ORDERED: (PENDING PHARMACY ID) (Melatonin [Melatonin] 10 MG) PO SCH (22:00)
[2019-01-05] MEDS: MELATONIN 5 MG TABLET PO SCH (22:23)
[2019-01-05] MEDS: AMITRIPTYLINE HCL 10 MG TABLET PO SCH (22:24)
[2019-01-05] MEDS: VANCOMYCIN HCL 1,500 MG in DEXTROSE 5%-WATER 250 ML IV SCH (22:25)
[2019-01-05] MEDS: NORMAL SALINE 10 ML SDV (SCHEDULED) IV SCH (22:26)
[2019-01-06] MEDS: PIPERACILLIN SODIUM/TAZOBACTAM 3.375 GM in NORMAL SALINE 100 ML IV SCH ×4 (00:10→17:50)
[2019-01-06] MEDS: IPRATROPIUM/ALBUTEROL 0.5-2.5 MG/3 ML AMPUL NEB SCH ×4 (02:08→19:20)
[2019-01-06] MEDS: HEPARIN SOD (PORCINE) 5,000 UNIT/ML 1 ML SYRINGE SUBCUT SCH ×3 (05:44→22:23)
[2019-01-06] MEDS: OXYCODONE HCL IR 5 MG TABLET PO PRN ×2 (05:44→15:31)
[2019-01-06] MEDS: PREGABALIN 25 MG CAPSULE PO SCH ×3 (05:44→22:14)
[2019-01-06] MEDS: HYDRALAZINE HCL 25 MG TABLET PO SCH ×3 (05:45→22:14)
[2019-01-06] MEDS: DILTIAZEM HCL 30 MG TABLET PO SCH ×3 (05:45→22:15)
[2019-01-06] MEDS: BENZONATATE 100 MG CAPSULE PO SCH ×3 (05:45→22:14)
[2019-01-06] MEDS: FAMOTIDINE 20 MG TABLET PO SCH ×2 (05:45→17:50)
[2019-01-06 06:26] LABS: ABSOLUTE EOSINOPHILS # (AUTO) 0.1 10^3/uL (0.0-0.6); ABSOLUTE LYMPHOCYTES (AUTO) 1.3 10^3/uL (0.5-4.7); ABSOLUTE MONOCYTES (AUTO) 0.4 10^3/uL (0.1-1.4); ABSOLUTE NEUT (AUTO) 3.8 10^3/uL (1.7-8.2); BASOPHILS % (AUTO) 0.5 % (0-2); HEMATOCRIT 30.4 % (36.0-47.0); LYMPHOCYTES % (AUTO) 22.9 % (13-45); MEAN CORPUSCULAR HEMOGLOBIN 28.4 pg (27.0-33.4); MEAN CORPUSCULAR HGB CONC 32.8 g/dL (32.0-36.0); MEAN CORPUSCULAR VOLUME 87 fl (80-97); MONOCYTES % (AUTO) 7.8 % (3-13); PLATELET COUNT 220 10^3/uL (150-450); RED BLOOD COUNT 3.52 10^6/uL (3.72-5.28); RED CELL DISTRIBUTION WIDTH 14.6 % (11.5-14.0); SEGMENTED NEUTROPHILS % (AUTO) 67.8 % (42-78); TOTAL CELLS COUNTED % (AUTO) 100 %; WHITE BLOOD COUNT 5.6 10^3/uL (4.0-10.5)
[2019-01-06 06:45] LABS: ALANINE AMINOTRANSFERASE 21 U/L (9-52); ALBUMIN 3.1 g/dL (3.5-5.0); ALKALINE PHOSPHATASE 81 U/L (38-126); ANION GAP 6 (5-19); ASPARTATE AMINO TRANSFERASE 12 U/L (14-36); BILIRUBIN,DIRECT 0.3 mg/dL (0.0-0.4); BILIRUBIN,TOTAL 0.3 mg/dL (0.2-1.3); BLOOD UREA NITROGEN 17 mg/dL (7-20); CALCIUM 9.1 mg/dL (8.4-10.2); CARBON DIOXIDE 34 mmol/L (22-30); CHLORIDE 101 mmol/L (98-107); GLUCOSE 120 mg/dL (75-110); POTASSIUM 3.4 mmol/L (3.6-5.0); SODIUM 140.7 mmol/L (137-145); TOTAL PROTEIN 6.2 g/dL (6.3-8.2)
[2019-01-06] MEDS: INSULIN LISPRO 100 UNIT/ML 3 ML VIAL SUBCUT SCH ×3 (07:26→15:58)
[2019-01-06] MEDS: BUDESONIDE NEB 0.25 MG/2 ML AMPUL NEB SCH ×2 (07:50→19:22)
[2019-01-06] MEDS: BUSPIRONE HCL 10 MG TABLET PO SCH ×2 (11:13→22:13)
[2019-01-06] MEDS: ACETAMINOPHEN 325 MG TABLET PO PRN ×2 (11:13→22:23)
[2019-01-06] MEDS: FUROSEMIDE 40 MG TABLET PO SCH ×2 (11:14→17:50)
[2019-01-06] MEDS: METOPROLOL SUCCINATE 25 MG TAB.SR.24H PO SCH (11:14)
[2019-01-06] MEDS: TOLTERODINE TARTRATE 1 MG TABLET PO SCH (11:14)
[2019-01-06] MEDS: PREDNISONE 20 MG TABLET PO SCH (11:14)
[2019-01-06] MEDS: FERROUS SULFATE 325 MG TABLET PO SCH (11:14)
[2019-01-06] MEDS: GUAIFENESIN 600 MG TABLET.SA PO SCH ×2 (11:14→22:16)
[2019-01-06] MEDS: DOCUSATE SODIUM 100 MG CAPSULE PO SCH ×2 (11:15→17:50)
[2019-01-06] MEDS: RANOLAZINE 500 MG TAB.SR.12H PO SCH ×2 (11:15→22:15)
[2019-01-06] MEDS: ROFLUMILAST 500 MCG TABLET PO SCH (11:15)
[2019-01-06] MEDS: FLUTICASONE/VILANTEROL 200-25 MCG/DOSE IH SCH (11:15)
[2019-01-06] MEDS: TIOTROPIUM BROMIDE DPI 5 CAP/KIT (18 MCG/CAP) IH SCH (11:15)
[2019-01-06] MEDS: CARBOXYMETHYLCELLULOSE SOD 0.5% 0.4 ML DROPERETTE OU SCH ×4 (11:15→22:17)
[2019-01-06] MEDS: ASCORBIC ACID 500 MG TABLET PO SCH ×2 (11:15→17:50)
[2019-01-06] MEDS: INSULIN GLARGINE,HUM.REC.ANLOG 1,000 UNIT/10 ML VIAL SUBCUT SCH (11:16)
[2019-01-06] MEDS: FLUTICASONE NASAL SPRAY 50 MCG/SPRY 120 SPRAY/16 GM NASL SCH ×2 (11:16→22:12)
[2019-01-06] MEDS: OLOPATADINE HCL 0.1% OPH SOLN 5 ML OU SCH ×2 (11:17→22:12)
[2019-01-06] MEDS: NORMAL SALINE 10 ML SDV (SCHEDULED) IV SCH ×2 (11:17→22:18)
[2019-01-06] MEDS: NYSTATIN/DEXAMETH/DIPHEN SUSP 120 ML PO SCH ×4 (11:25→22:13)
[2019-01-06] MEDS: LIDOCAINE 5% (700 MG) TRANSDERMAL ADH..PATCH TP PRN (15:27)
[2019-01-06] MEDS: BACLOFEN 10 MG TABLET PO PRN (15:31)
[2019-01-06] MEDS: MAGNESIUM OXIDE 400 MG TABLET PO SCH (15:31)
--- NOTE | 2019-01-06 16:14 | PDOC PROGRESS REPORT ---
Subjective Progress Note for:: 01/06/19 Subjective:: This is 73 years old female patient, long-term [facility] resident was complex multiple comorbidities including atrial fibrillation, coronary artery disease, history of DVT, COPD, diabetes mellitus, depression, chronic indwelling Barton catheter, history of recurrent UTI with ESBL E. coli CRE Klebsiella, presented with chief complaint of shortness of breath and nonproductive cough. Her chest x-ray reported moderate left lower lobe pneumonia, her urine culture is positive for CRE Klebsiella and Pseudomonas in her sputum culture is positive for MRSA. Patient has been on Zosyn and vancomycin. This morning patient seen resting in bed comfortably. She is awake alert and oriented. No new complaints. Reason For Visit: COPD EXACERBATION PNEUMONIA Physical Exam Vital Signs: Temp Pulse Resp BP Pulse Ox 98.3 F 69 20 139/75 H 99 01/06/19 15:27 01/06/19 15:27 01/06/19 15:27 01/06/19 15:27 01/06/19 15:27 Intake & Output 01/05/19 01/06/19 01/07/19 06:59 06:59 06:59 Intake Total 2050 1610 580 Output Total 1975 1500 375 Balance 75 110 205 Weight 83.4 kg 84 kg General appearance: PRESENT: no acute distress Eye exam: PRESENT: conjunctiva pink Neck exam: ABSENT: carotid bruit, JVD, lymphadenopathy, thyromegaly Respiratory exam: PRESENT: decreased breath sounds Cardiovascular exam: PRESENT: irregular rhythm Neurological exam: PRESENT: alert, awake Results Laboratory Results: 01/06/19 06:15 01/06/19 06:15 01/06/19 01/06/19 06:15 06:15 WBC 5.6 RBC 3.52 L Hgb 10.0 L Hct 30.4 L MCV 87 MCH 28.4 MCHC 32.8 RDW 14.6 H Plt Count 220 Seg Neutrophils % 67.8 Lymphocytes % 22.9 Monocytes % 7.8 Eosinophils % 1.0 Basophils % 0.5 Absolute Neutrophils 3.8 Absolute Lymphocytes 1.3 Absolute Monocytes 0.4 Absolute Eosinophils 0.1 Absolute Basophils 0.0 Sodium 140.7 Potassium 3.4 L Chloride 101 Carbon Dioxide 34 H Anion Gap 6 BUN 17 Creatinine 1.15 Est GFR ( Amer) 56 L Est GFR (Non-Af Amer) 46 L Glucose 120 H Calcium 9.1 Magnesium 2.1 Total Bilirubin 0.3 AST 12 L ALT 21 Alkaline Phosphatase 81 Total Protein 6.2 L Albumin 3.1 L Impressions: Chest X-Ray 01/01/19 22:31 IMPRESSION: Moderate left lower lobar pneumonia. Recommend CR/CT surveillance including at 7-12 weeks following initiation of any clinically warranted therapy. Guidance Fluoroscopy 01/05/19 00:00 IMPRESSION: SUCCESSFUL PLACEMENT OF A 5 FR DUAL LUMEN 32 CM PICC IN THE RIGHT BASILIC VEIN. Interventional Vascular Procedure 01/05/19 00:00 IMPRESSION: SUCCESSFUL PLACEMENT OF A 5 FR DUAL LUMEN 32 CM PICC IN THE RIGHT BASILIC VEIN. PICC Line Insertion 01/05/19 00:00 IMPRESSION: SUCCESSFUL PLACEMENT OF A 5 FR DUAL LUMEN 32 CM PICC IN THE RIGHT BASILIC VEIN. Assessment and Plan - Diagnosis (1) Possible healthcare associated pneumonia Is this a current diagnosis for this admission?: Yes Plan: Patient is a long-term halfway resident and she has multiple admission to the hospital and she has been on antibiotics multiple times. I will continue vancomycin and Zosyn. (2) Atrial fibrillation Qualifiers: Atrial fibrillation type: chronic Qualified Code(s): I48.2 - Chronic atrial fibrillation Is this a current diagnosis for this admission?: Yes Plan: Rate controlled (3) Type 2 diabetes mellitus Is this a current diagnosis for this admission?: Yes Plan: Continue current regimen (4) Chronic indwelling Barton catheter Is this a current diagnosis for this admission?: Yes Plan: Urine culture is positive for CRE Klebsiella and Pseudomonas. Patient does not have any urinary complaints. It is difficult to distinguish whether it is true infection or colonization. (5) Coronary artery disease Qualifiers: Coronary Disease-Associated Artery/Lesion type: [place] artery Is this a current diagnosis for this admission?: Yes Plan: No anginal symptoms (6) COPD (chronic obstructive pulmonary disease) Qualifiers: Emphysema type: unspecified Is this a current diagnosis for this admission?: Yes Plan: Continue PRN bronchodilators. (7) Hypertension Qualifiers: Hypertension type: essential hypertension Qualified Code(s): I10 - Essential (primary) hypertension Is this a current diagnosis for this admission?: Yes Plan: Continue home medication (8) Hyperlipidemia Qualifiers: Hyperlipidemia type: unspecified Qualified Code(s): E78.5 - Hyperlipidemia, unspecified Is this a current diagnosis for this admission?: Yes Plan: Continue home medication
[2019-01-06] MEDS: MAGNESIUM HYDROXIDE SUSP 30 ML UDCUP PO PRN (17:50)
[2019-01-06] MEDS: VANCOMYCIN HCL 1,500 MG in DEXTROSE 5%-WATER 250 ML IV SCH (22:09)
[2019-01-06] MEDS: AMITRIPTYLINE HCL 10 MG TABLET PO SCH (22:14)
[2019-01-06] MEDS: MELATONIN 5 MG TABLET PO SCH (22:16)
[2019-01-07] MEDS: PIPERACILLIN SODIUM/TAZOBACTAM 3.375 GM in NORMAL SALINE 100 ML IV SCH ×5 (00:29→23:50)
[2019-01-07] MEDS: IPRATROPIUM/ALBUTEROL 0.5-2.5 MG/3 ML AMPUL NEB SCH ×4 (02:29→20:05)
[2019-01-07] MEDS: HYDRALAZINE HCL 25 MG TABLET PO SCH ×4 (05:26→21:38)
[2019-01-07] MEDS: DILTIAZEM HCL 30 MG TABLET PO SCH ×3 (05:26→21:32)
[2019-01-07] MEDS: PREGABALIN 25 MG CAPSULE PO SCH ×3 (05:26→21:30)
[2019-01-07] MEDS: HEPARIN SOD (PORCINE) 5,000 UNIT/ML 1 ML SYRINGE SUBCUT SCH ×4 (05:27→21:57)
[2019-01-07] MEDS: BENZONATATE 100 MG CAPSULE PO SCH ×3 (05:27→21:31)
[2019-01-07] MEDS: FAMOTIDINE 20 MG TABLET PO SCH ×2 (05:27→18:22)
[2019-01-07] MEDS: OXYCODONE HCL IR 5 MG TABLET PO PRN ×2 (05:38→15:33)
[2019-01-07] MEDS: BACLOFEN 10 MG TABLET PO PRN ×3 (05:39→23:50)
[2019-01-07] MEDS: BUDESONIDE NEB 0.25 MG/2 ML AMPUL NEB SCH ×2 (08:01→20:05)
[2019-01-07] MEDS: INSULIN LISPRO 100 UNIT/ML 3 ML VIAL SUBCUT SCH ×3 (08:33→18:22)
[2019-01-07] MEDS: INSULIN GLARGINE,HUM.REC.ANLOG 1,000 UNIT/10 ML VIAL SUBCUT SCH (10:02)
[2019-01-07] MEDS: ASCORBIC ACID 500 MG TABLET PO SCH ×2 (10:04→18:22)
[2019-01-07] MEDS: DOCUSATE SODIUM 100 MG CAPSULE PO SCH ×2 (10:04→18:22)
[2019-01-07] MEDS: PREDNISONE 20 MG TABLET PO SCH (10:05)
[2019-01-07] MEDS: TIOTROPIUM BROMIDE DPI 5 CAP/KIT (18 MCG/CAP) IH SCH (10:05)
[2019-01-07] MEDS: METOPROLOL SUCCINATE 25 MG TAB.SR.24H PO SCH (10:05)
[2019-01-07] MEDS: GUAIFENESIN 600 MG TABLET.SA PO SCH ×2 (10:05→21:31)
[2019-01-07] MEDS: FERROUS SULFATE 325 MG TABLET PO SCH (10:06)
[2019-01-07] MEDS: BUSPIRONE HCL 10 MG TABLET PO SCH ×2 (10:06→21:32)
[2019-01-07] MEDS: CARBOXYMETHYLCELLULOSE SOD 0.5% 0.4 ML DROPERETTE OU SCH ×4 (10:06→21:36)
[2019-01-07] MEDS: FLUTICASONE/VILANTEROL 200-25 MCG/DOSE IH SCH (10:07)
[2019-01-07] MEDS: NORMAL SALINE 10 ML SDV (SCHEDULED) IV SCH ×2 (10:07→21:37)
[2019-01-07] MEDS: FUROSEMIDE 40 MG TABLET PO SCH ×2 (10:07→18:22)
[2019-01-07] MEDS: ROFLUMILAST 500 MCG TABLET PO SCH (10:08)
[2019-01-07] MEDS: RANOLAZINE 500 MG TAB.SR.12H PO SCH ×2 (10:08→21:37)
[2019-01-07] MEDS: TOLTERODINE TARTRATE 1 MG TABLET PO SCH (10:08)
[2019-01-07] MEDS: FLUTICASONE NASAL SPRAY 50 MCG/SPRY 120 SPRAY/16 GM NASL SCH ×2 (10:09→21:38)
[2019-01-07] MEDS: NYSTATIN/DEXAMETH/DIPHEN SUSP 120 ML PO SCH ×4 (10:09→21:35)
[2019-01-07] MEDS: OLOPATADINE HCL 0.1% OPH SOLN 5 ML OU SCH ×2 (10:09→21:39)
[2019-01-07] MEDS: ACETAMINOPHEN 325 MG TABLET PO PRN (10:35)
[2019-01-07] MEDS: LIDOCAINE 5% (700 MG) TRANSDERMAL ADH..PATCH TP PRN (10:36)
--- NOTE | 2019-01-07 15:44 | PDOC PROGRESS REPORT ---
Subjective Progress Note for:: 01/07/19 Subjective:: This is 73 years old female patient, [facility]term [facility] was complex multiple comorbidities including atrial fibrillation, coronary artery disease, history of DVT, COPD, diabetes mellitus, depression, chronic indwelling Barton catheter, history of recurrent UTI with ESBL E. coli CRE Klebsiella, presented with chief complaint of shortness of breath and nonproductive cough. Her chest x-ray reported moderate left lower lobe pneumonia, her urine culture is positive for CRE Klebsiella and Pseudomonas in her sputum culture is positive for MRSA. Patient has been on Zosyn and vancomycin. This morning patient seen resting in bed comfortably. She is awake alert and oriented. No new complaints. 01/07/2019: No adverse event overnight. Patient seen resting in bed comfortably. She is not in pain or distress. She is potential discharge for tomorrow. Reason For Visit: COPD EXACERBATION PNEUMONIA Physical Exam Vital Signs: Temp Pulse Resp BP Pulse Ox 98.4 F 84 16 124/56 L 98 01/07/19 11:44 01/07/19 14:00 01/07/19 14:00 01/07/19 11:44 01/07/19 14:00 Intake & Output 01/06/19 01/07/19 01/08/19 06:59 06:59 06:59 Intake Total 1610 2626 100 Output Total 1500 1785 Balance 110 841 100 Weight 84 kg 84.7 kg General appearance: PRESENT: no acute distress Eye exam: PRESENT: conjunctiva pink Respiratory exam: PRESENT: decreased breath sounds Cardiovascular exam: PRESENT: irregular rhythm Neurological exam: PRESENT: alert, awake Results Laboratory Results: 01/06/19 06:15 01/06/19 06:15 01/01/19 23:18 Blood Blood Culture - Final NO GROWTH IN 5 DAYS 01/01/19 22:40 Blood Blood Culture - Final NO GROWTH IN 5 DAYS Impressions: Chest X-Ray 01/01/19 22:31 IMPRESSION: Moderate left lower lobar pneumonia. Recommend CR/CT surveillance including at 7-12 weeks following initiation of any clinically warranted therapy. Guidance Fluoroscopy 01/05/19 00:00 IMPRESSION: SUCCESSFUL PLACEMENT OF A 5 FR DUAL LUMEN 32 CM PICC IN THE RIGHT BASILIC VEIN. Interventional Vascular Procedure 01/05/19 00:00 IMPRESSION: SUCCESSFUL PLACEMENT OF A 5 FR DUAL LUMEN 32 CM PICC IN THE RIGHT BASILIC VEIN. PICC Line Insertion 01/05/19 00:00 IMPRESSION: SUCCESSFUL PLACEMENT OF A 5 FR DUAL LUMEN 32 CM PICC IN THE RIGHT BASILIC VEIN. Assessment and Plan - Diagnosis (1) Possible healthcare associated pneumonia Is this a current diagnosis for this admission?: Yes Plan: [facility] is a [facility] and she has multiple admission to the hospital and she has been on antibiotics multiple times. I will continue vancomycin and Zosyn. (2) Atrial fibrillation Qualifiers: Atrial fibrillation type: chronic Qualified Code(s): I48.2 - Chronic atrial fibrillation Is this a current diagnosis for this admission?: Yes Plan: Rate controlled (3) Type 2 diabetes mellitus Is this a current diagnosis for this admission?: Yes Plan: Continue current regimen (4) Chronic indwelling Barton catheter Is this a current diagnosis for this admission?: Yes Plan: Urine culture is positive for CRE Klebsiella and Pseudomonas. Patient does not have any urinary complaints. It is difficult to distinguish whether it is true infection or colonization. (5) Coronary artery disease Qualifiers: Coronary Disease-Associated Artery/Lesion type: [place] artery Is this a current diagnosis for this admission?: Yes Plan: No anginal symptoms (6) COPD (chronic obstructive pulmonary disease) Qualifiers: Emphysema type: unspecified Is this a current diagnosis for this admission?: Yes Plan: Continue PRN bronchodilators. (7) Hypertension Qualifiers: Hypertension type: essential hypertension Qualified Code(s): I10 - Essential (primary) hypertension Is this a current diagnosis for this admission?: Yes Plan: Continue home medication (8) Hyperlipidemia Qualifiers: Hyperlipidemia type: unspecified Qualified Code(s): E78.5 - Hyperlipidemia, unspecified Is this a current diagnosis for this admission?: Yes Plan: Continue home medication
[2019-01-07] MEDS: MELATONIN 5 MG TABLET PO SCH (21:30)
[2019-01-07] MEDS: AMITRIPTYLINE HCL 10 MG TABLET PO SCH (21:31)
[2019-01-07] MEDS: VANCOMYCIN HCL 1,500 MG in DEXTROSE 5%-WATER 250 ML IV SCH (21:57)
[2019-01-07] MEDS: NORMAL SALINE 10 ML SDV (AFTER EACH USE) IV PRN (23:51)
[2019-01-08] MEDS: IPRATROPIUM/ALBUTEROL 0.5-2.5 MG/3 ML AMPUL NEB SCH ×4 (02:00→19:37)
[2019-01-08] MEDS: OXYCODONE HCL IR 5 MG TABLET PO PRN (03:59)
[2019-01-08] MEDS: PIPERACILLIN SODIUM/TAZOBACTAM 3.375 GM in NORMAL SALINE 100 ML IV SCH ×3 (06:08→17:57)
[2019-01-08] MEDS: HEPARIN SOD (PORCINE) 5,000 UNIT/ML 1 ML SYRINGE SUBCUT SCH ×3 (06:08→22:44)
[2019-01-08] MEDS: PREGABALIN 25 MG CAPSULE PO SCH ×3 (06:09→22:40)
[2019-01-08] MEDS: DILTIAZEM HCL 30 MG TABLET PO SCH ×3 (06:09→22:41)
[2019-01-08] MEDS: BENZONATATE 100 MG CAPSULE PO SCH ×3 (06:09→22:41)
[2019-01-08] MEDS: FAMOTIDINE 20 MG TABLET PO SCH ×2 (06:09→17:56)
[2019-01-08] MEDS: HYDRALAZINE HCL 25 MG TABLET PO SCH ×3 (06:10→22:41)
[2019-01-08] MEDS: BUDESONIDE NEB 0.25 MG/2 ML AMPUL NEB SCH ×2 (08:01→19:37)
[2019-01-08] MEDS: INSULIN LISPRO 100 UNIT/ML 3 ML VIAL SUBCUT SCH ×3 (08:30→17:57)
[2019-01-08] MEDS: ACETAMINOPHEN 325 MG TABLET PO PRN ×2 (08:36→23:09)
[2019-01-08] MEDS: BACLOFEN 10 MG TABLET PO PRN ×2 (08:37→18:02)
[2019-01-08] MEDS: NORMAL SALINE 10 ML SDV (AFTER EACH USE) IV PRN (08:38)
[2019-01-08] MEDS: ASCORBIC ACID 500 MG TABLET PO SCH ×2 (10:25→17:57)
[2019-01-08] MEDS: NORMAL SALINE 10 ML SDV (SCHEDULED) IV SCH ×2 (10:25→22:42)
[2019-01-08] MEDS: FERROUS SULFATE 325 MG TABLET PO SCH (10:26)
[2019-01-08] MEDS: GUAIFENESIN 600 MG TABLET.SA PO SCH ×2 (10:26→22:39)
[2019-01-08] MEDS: METOPROLOL SUCCINATE 25 MG TAB.SR.24H PO SCH (10:26)
[2019-01-08] MEDS: PREDNISONE 20 MG TABLET PO SCH (10:26)
[2019-01-08] MEDS: BUSPIRONE HCL 10 MG TABLET PO SCH ×2 (10:26→22:38)
[2019-01-08] MEDS: FUROSEMIDE 40 MG TABLET PO SCH ×2 (10:26→17:56)
[2019-01-08] MEDS: DOCUSATE SODIUM 100 MG CAPSULE PO SCH ×2 (10:27→17:56)
[2019-01-08] MEDS: TIOTROPIUM BROMIDE DPI 5 CAP/KIT (18 MCG/CAP) IH SCH (10:28)
[2019-01-08] MEDS: FLUTICASONE NASAL SPRAY 50 MCG/SPRY 120 SPRAY/16 GM NASL SCH ×2 (10:28→23:13)
[2019-01-08] MEDS: ROFLUMILAST 500 MCG TABLET PO SCH (10:29)
[2019-01-08] MEDS: FLUTICASONE/VILANTEROL 200-25 MCG/DOSE IH SCH (10:29)
[2019-01-08] MEDS: RANOLAZINE 500 MG TAB.SR.12H PO SCH ×2 (10:30→22:37)
[2019-01-08] MEDS: NYSTATIN/DEXAMETH/DIPHEN SUSP 120 ML PO SCH ×2 (10:30→14:57)
[2019-01-08] MEDS: TOLTERODINE TARTRATE 1 MG TABLET PO SCH (10:30)
[2019-01-08] MEDS: OLOPATADINE HCL 0.1% OPH SOLN 5 ML OU SCH ×2 (10:30→23:15)
[2019-01-08] MEDS: FENTANYL 25 MCG/HR PATCH.TD72 TD SCH (10:31)
[2019-01-08] MEDS: CARBOXYMETHYLCELLULOSE SOD 0.5% 0.4 ML DROPERETTE OU SCH ×4 (10:33→23:14)
[2019-01-08] MEDS: INSULIN GLARGINE,HUM.REC.ANLOG 1,000 UNIT/10 ML VIAL SUBCUT SCH (10:33)
[2019-01-08] MEDS ORDERED: BUPROPION HCL 75 MG TABLET PO ONE (11:00)
[2019-01-08] MEDS ORDERED: DULOXETINE HCL 30 MG CAPSULE.DR PO ONE (11:00)
[2019-01-08] MEDS: LIDOCAINE 5% (700 MG) TRANSDERMAL ADH..PATCH TP PRN (11:48)
--- NOTE | 2019-01-08 13:01 | PDOC PROGRESS REPORT ---
Subjective Progress Note for:: 01/08/19 Subjective:: This is 73 years old female patient, long-term [facility] resident was complex multiple comorbidities including atrial fibrillation, coronary artery disease, history of DVT, COPD, diabetes mellitus, depression, chronic indwelling Barton catheter, history of recurrent UTI with ESBL E. coli CRE Klebsiella, presented with chief complaint of shortness of breath and nonproductive cough. Her chest x-ray reported moderate left lower lobe pneumonia, her urine culture is positive for CRE Klebsiella and Pseudomonas in her sputum culture is positive for MRSA. Patient has been on Zosyn and vancomycin. This morning patient seen resting in bed comfortably. She is awake alert and oriented. No new complaints. 01/07/2019: No adverse event overnight. Patient seen resting in bed comfortably. She is not in pain or distress. She is potential discharge for tomorrow. 01/07/2019: Patient seen resting in bed. No new complaints. She request is to resume her Wellbutrin and Cymbalta. She also requests to change her Barton catheter. I will continue her antibiotics 1 more day IV then she is going to be discharged tomorrow to [facility]. Reason For Visit: COPD EXACERBATION PNEUMONIA Physical Exam Vital Signs: Temp Pulse Resp BP Pulse Ox 98.3 F 81 18 141/70 H 99 01/07/19 23:52 01/08/19 08:06 01/08/19 08:06 01/08/19 06:00 01/08/19 08:06 Intake & Output 01/07/19 01/08/19 01/09/19 06:59 06:59 06:59 Intake Total 2626 1092 100 Output Total 1785 2250 Balance 841 -1158 100 Weight 84.7 kg 86.5 kg General appearance: PRESENT: mild distress Head exam: PRESENT: atraumatic Mouth exam: PRESENT: moist Neck exam: ABSENT: carotid bruit, JVD, lymphadenopathy, thyromegaly Respiratory exam: PRESENT: clear to auscultation elia. ABSENT: rales, rhonchi, wheezes GI/Abdominal exam: PRESENT: normal bowel sounds, soft. ABSENT: distended, guarding, mass, organolmegaly, rebound, tenderness Neurological exam: PRESENT: alert, awake, oriented to person, oriented to place, oriented to time, oriented to situation Results Laboratory Results: 01/06/19 06:15 01/06/19 06:15 Impressions: Chest X-Ray 01/01/19 22:31 IMPRESSION: Moderate left lower lobar pneumonia. Recommend CR/CT surveillance including at 7-12 weeks following initiation of any clinically warranted therapy. Guidance Fluoroscopy 01/05/19 00:00 IMPRESSION: SUCCESSFUL PLACEMENT OF A 5 FR DUAL LUMEN 32 CM PICC IN THE RIGHT BASILIC VEIN. Interventional Vascular Procedure 01/05/19 00:00 IMPRESSION: SUCCESSFUL PLACEMENT OF A 5 FR DUAL LUMEN 32 CM PICC IN THE RIGHT BASILIC VEIN. PICC Line Insertion 01/05/19 00:00 IMPRESSION: SUCCESSFUL PLACEMENT OF A 5 FR DUAL LUMEN 32 CM PICC IN THE RIGHT BASILIC VEIN. Assessment and Plan - Diagnosis (1) Possible healthcare associated pneumonia Is this a current diagnosis for this admission?: Yes Plan: Patient is a [facility]term [facility] resident and she has multiple admission to the hospital and she has been on antibiotics multiple times. I will continue vancomycin and Zosyn. (2) Atrial fibrillation Qualifiers: Atrial fibrillation type: chronic Qualified Code(s): I48.2 - Chronic atrial fibrillation Is this a current diagnosis for this admission?: Yes Plan: Rate controlled (3) Type 2 diabetes mellitus Is this a current diagnosis for this admission?: Yes Plan: Continue current regimen (4) Chronic indwelling Barton catheter Is this a current diagnosis for this admission?: Yes Plan: Urine culture is positive for CRE Klebsiella and Pseudomonas. Patient does not have any urinary complaints. It is difficult to distinguish whether it is true infection or colonization. (5) Coronary artery disease Qualifiers: Coronary Disease-Associated Artery/Lesion type: [place] artery Is this a current diagnosis for this admission?: Yes Plan: No anginal symptoms (6) COPD (chronic obstructive pulmonary disease) Qualifiers: Emphysema type: unspecified Is this a current diagnosis for this admission?: Yes Plan: Continue PRN bronchodilators. (7) Hypertension Qualifiers: Hypertension type: essential hypertension Qualified Code(s): I10 - Essential (primary) hypertension Is this a current diagnosis for this admission?: Yes Plan: Continue home medication (8) Hyperlipidemia Qualifiers: Hyperlipidemia type: unspecified Qualified Code(s): E78.5 - Hyperlipidemia, unspecified Is this a current diagnosis for this admission?: Yes Plan: Continue home medication
[2019-01-08] MEDS: MAGNESIUM OXIDE 400 MG TABLET PO SCH (14:58)
[2019-01-08] MEDS: VANCOMYCIN HCL 1,500 MG in DEXTROSE 5%-WATER 250 ML IV SCH (22:36)
[2019-01-08] MEDS: MELATONIN 5 MG TABLET PO SCH (22:39)
[2019-01-08] MEDS: BUPROPION HCL 75 MG TABLET PO SCH (22:41)
[2019-01-08] MEDS: AMITRIPTYLINE HCL 10 MG TABLET PO SCH (22:42)
[2019-01-09] MEDS: PIPERACILLIN SODIUM/TAZOBACTAM 3.375 GM in NORMAL SALINE 100 ML IV SCH (00:33)
[2019-01-09] MEDS: IPRATROPIUM/ALBUTEROL 0.5-2.5 MG/3 ML AMPUL NEB SCH ×2 (01:54→08:16)
[2019-01-09] MEDS: PREGABALIN 25 MG CAPSULE PO SCH (06:55)
[2019-01-09] MEDS: BENZONATATE 100 MG CAPSULE PO SCH (06:56)
[2019-01-09] MEDS: FAMOTIDINE 20 MG TABLET PO SCH (06:56)
[2019-01-09] MEDS: DILTIAZEM HCL 30 MG TABLET PO SCH (07:00)
[2019-01-09] MEDS: HYDRALAZINE HCL 25 MG TABLET PO SCH (07:00)
[2019-01-09] MEDS: HEPARIN SOD (PORCINE) 5,000 UNIT/ML 1 ML SYRINGE SUBCUT SCH (07:01)
[2019-01-09] MEDS: INSULIN LISPRO 100 UNIT/ML 3 ML VIAL SUBCUT SCH ×2 (07:55→11:12)
[2019-01-09] MEDS: BUDESONIDE NEB 0.25 MG/2 ML AMPUL NEB SCH (08:16)
[2019-01-09 09:04] VITALS: BP 135/67
[2019-01-09] MEDS ORDERED: DULOXETINE HCL 30 MG CAPSULE.DR PO SCH (10:00)
[2019-01-09] MEDS: GUAIFENESIN 600 MG TABLET.SA PO SCH (10:05)
[2019-01-09] MEDS: METOPROLOL SUCCINATE 25 MG TAB.SR.24H PO SCH (10:06)
[2019-01-09] MEDS: FERROUS SULFATE 325 MG TABLET PO SCH (10:06)
[2019-01-09] MEDS: ASCORBIC ACID 500 MG TABLET PO SCH (10:06)
[2019-01-09] MEDS: BUSPIRONE HCL 10 MG TABLET PO SCH (10:07)
[2019-01-09] MEDS: PREDNISONE 20 MG TABLET PO SCH (10:07)
[2019-01-09] MEDS: BUPROPION HCL 75 MG TABLET PO SCH (10:07)
[2019-01-09] MEDS: FUROSEMIDE 40 MG TABLET PO SCH (10:07)
[2019-01-09] MEDS: DOCUSATE SODIUM 100 MG CAPSULE PO SCH (10:07)
[2019-01-09] MEDS: BACLOFEN 10 MG TABLET PO PRN (10:08)
[2019-01-09] MEDS: ACETAMINOPHEN 325 MG TABLET PO PRN (10:08)
[2019-01-09] MEDS: CARBOXYMETHYLCELLULOSE SOD 0.5% 0.4 ML DROPERETTE OU SCH (10:09)
[2019-01-09] MEDS: FLUTICASONE NASAL SPRAY 50 MCG/SPRY 120 SPRAY/16 GM NASL SCH (10:09)
[2019-01-09] MEDS: FLUTICASONE/VILANTEROL 200-25 MCG/DOSE IH SCH (10:09)
[2019-01-09] MEDS: RANOLAZINE 500 MG TAB.SR.12H PO SCH (10:09)
[2019-01-09] MEDS: OLOPATADINE HCL 0.1% OPH SOLN 5 ML OU SCH (10:09)
[2019-01-09] MEDS: TOLTERODINE TARTRATE 1 MG TABLET PO SCH (10:10)
[2019-01-09] MEDS: ROFLUMILAST 500 MCG TABLET PO SCH (10:10)
[2019-01-09] MEDS: NORMAL SALINE 10 ML SDV (SCHEDULED) IV SCH (10:11)
[2019-01-09] MEDS: TIOTROPIUM BROMIDE DPI 5 CAP/KIT (18 MCG/CAP) IH SCH (10:11)
[2019-01-09] MEDS ORDERED: INSULIN GLARGINE,HUM.REC.ANLOG 1,000 UNIT/10 ML VIAL SUBCUT SCH (11:00)
--- NOTE | 2019-01-09 11:01 | PDOC TRANSFER SUMMARY ---
General - Admit/Disc Date/PCP Admission Date/Primary Care Provider: 01/02/19 00:22 KARTHIKEYAN HERNANDEZ MD Discharge Date: 01/09/19 - Discharge Diagnosis (1) Possible healthcare associated pneumonia Is this a current diagnosis for this admission?: Yes (2) Atrial fibrillation Is this a current diagnosis for this admission?: Yes (3) Type 2 diabetes mellitus Is this a current diagnosis for this admission?: Yes (4) Chronic indwelling Barton catheter Is this a current diagnosis for this admission?: Yes (5) Coronary artery disease Is this a current diagnosis for this admission?: Yes (6) COPD (chronic obstructive pulmonary disease) Is this a current diagnosis for this admission?: Yes (7) Hypertension Is this a current diagnosis for this admission?: Yes (8) Hyperlipidemia Is this a current diagnosis for this admission?: Yes - Additional Information Resuscitation Status: Do Not Resuscitate Prescriptions: Bupropion HCl [Wellbutrin 75 mg Tablet] 75 mg PO Q12 #60 tablet Duloxetine HCl [Cymbalta 30 mg Capsule.] 60 mg PO DAILY #60 capsule. Home Medications: Acetaminophen [Tylenol] 650 mg PO Q4HP PRN 01/02/19 Albuterol Sulfate [Proair HFA Inhalation Aerosol 8.5 gm MDI] 2 puff IH Q4HP PRN 01/02/19 Amitriptyline HCl [Elavil 10 mg Tablet] 10 mg PO QHS 01/02/19 Ascorbic Acid [Vitamin C 500 mg Tablet] 500 mg PO BID 01/02/19 Baclofen [Baclofen 10 mg Tablet] 10 mg PO Q8HP PRN 01/02/19 Benzocaine/Menthol [Chloraseptic Sore Throat Lozenge] 1 each BUCCAL Q1HP PRN 01/02/19 Benzonatate [Tessalon Perles 100 mg Capsule] 200 mg PO TID 01/02/19 Budesonide [Pulmicort] 0.25 mg IH RTBID 01/02/19 Buspirone HCl [Buspar 5 mg Tablet] 5 mg PO Q12 01/02/19 Diltiazem HCl [Cardizem 30 mg Tablet] 30 mg PO Q8 01/02/19 Docusate Sodium [Colace 100 mg Capsule] 100 mg PO BID 01/02/19 Ergocalciferol (Vitamin D2) [Drisdol 50,000 unit (1.25MG) Capsule] 50,000 unit PO [id number] 01/02/19 Akila [place]/Linoleic/Gamoleni [Evening [place] 1,000 mg Sftg] 500 mg PO TID 01/02/19 Fentanyl [Duragesic 25 mcg/hr Transdermal Patch] 1 each TD Q3D 01/02/19 Ferrous Sulfate [Feosol 325 mg Tablet] 325 mg PO DAILY 01/02/19 Fexofenadine HCl [Shaniqua] 180 mg PO QAM 01/02/19 Fluticasone/Salmeterol [Advair 500-50 Diskus 14 Dose/Diskus] 1 puff IH Q12 01/02/19 Furosemide [Lasix 40 mg Tablet] 40 mg PO BID 01/02/19 Guaifenesin [Guaifenesin ER] 600 mg PO Q12 01/02/19 Guaifenesin/D-Methorphan Hb [Robitussin Dm S-F Cough Syrup] 10 ml PO Q4HP PRN 01/02/19 Hydralazine HCl [Apresoline 25 mg Tablet] 25 mg PO Q8 01/02/19 Insulin Detemir [Levemir] 32 unit SQ DAILY 01/02/19 Insulin Lispro [Humalog Insulin (Lispro) 100 unit/mL] 0 unit SUBCUT .SLD SCALE 01/02/19 Ipratropium/Albuterol Sulfate [Duoneb 3 ml Ampul] 3 ml NEB [id number] 01/02/19 Ketotifen Fumarate [Refresh] 1 drop OU QID 01/02/19 Lactulose [Constulose 10 gm/15 mL Oral Solution] 15 ml PO BIDP PRN 01/02/19 Levalbuterol HCl [Xopenex Neb 0.63 mg/3 ml Ampul] 0.63 mg NEB RTQ8 01/02/19 Lidocaine [Lidoderm 5% (700 mg) Transdermal Patch] 2 patch TP DAILYP PRN 01/02/19 Magnesium Hydroxide [Milk of Magnesia 30 ml Udcup] 30 ml PO DAILYP PRN 01/02/19 Magnesium Oxide [Mag-Ox 400 mg Tablet] 400 mg PO Q2D 01/02/19 Melatonin 10 mg PO QHS 01/02/19 Metoprolol Succinate [Toprol Xl] 25 mg PO DAILY 01/02/19 Mirabegron [Myrbetriq] 25 mg PO DAILY 01/02/19 Nitroglycerin [Nitrostat 0.4 mg (1/150 Gr) Tabs 25/Bottle] 0.4 mg SL Q5MP PRN 01/02/19 Olopatadine HCl [Pataday] 1 drop OU DAILY 01/02/19 Oxycodone HCl [Oxycodone HCl 10 MG Tablet] 10 mg PO Q8 01/02/19 Phenazopyridine HCl [Urinary Pain Relief] 95 mg PO Q8HP PRN 01/02/19 Phenol/Sodium Phenolate [Chloraseptic Sore Throat [place] 177 ml] 1 sprays MM Q1HP PRN 01/02/19 Polymyxin B Sulf/Trimethoprim [Polytrim Eye Drops] 1 drop OS QID 01/02/19 Prednisone [Deltasone] 20 mg PO DAILY 01/02/19 Pregabalin [Lyrica 25 mg Capsule] 25 mg PO Q8 01/02/19 Promethazine HCl [Phenergan 25 mg Tablet] 12.5 mg PO Q4HP PRN 01/02/19 Ranitidine HCl [Zantac 150 mg Tablet] 150 mg PO BID 01/02/19 Ranolazine [Ranexa 500 mg Tab.sr] 500 mg PO Q12 01/02/19 Roflumilast [Daliresp 500 mcg Tablet] 500 mcg PO DAILY 01/02/19 Sennosides/Docusate 8.6-50 mg [Senna Plus Tablet] 1 tab PO QHS 01/02/19 Simethicone [Mylicon 80 mg Chewable Tablet] 80 mg PO Q6HP PRN 01/02/19 Tiotropium [place] [Spiriva Handihaler 5 Cap/Kit (18 Mcg/Cap)] 1 cap IH DAILY 01/02/19 Tolterodine Tartrate [Detrol] 2 mg PO DAILY 01/02/19 Turmeric/Turmeric Root Extract [Turmeric 500 mg Capsule] 1,000 mg PO BID 01/02/19 Bupropion HCl [Wellbutrin 75 mg Tablet] 75 mg PO Q12 #60 tablet 01/09/19 Duloxetine HCl [Cymbalta 30 mg Capsule.] 60 mg PO DAILY #60 capsule. 01/09/19 History of Present Illness Admission Date/PCP: 01/02/19 00:22 KARTHIKEYAN HERNANDEZ MD History of Present Illness: PORSHA WALDRON is a 73 year old female with a past medical history of chronic pain, bedbound state, atrial fibrillation, congestive heart failure, insulin-dependent diabetes, coronary artery disease, DVT with IVC filter, COPD, MRSA pneumonia, ESBL UTI, and CRE Klebsiella. She presents with 48 hours of shortness of breath and nonproductive cough prompting evaluation emergency room where she is found to have leukocytosis and a left lower lobe infiltrate. She is a alf resident and started on vancomycin and Zosyn and referred to the hospitalist for admission. Patient denies chest pain nausea or vomiting. She verifies her CODE STATUS is DNR Hospital Course Hospital Course: This is 73 years old female patient, long-term [facility] alf resident was complex multiple comorbidities including atrial fibrillation, coronary artery disease, history of DVT, COPD, diabetes mellitus, depression, chronic indwelling Barton catheter, history of recurrent UTI with ESBL E. coli CRE Klebsiella, presented with chief complaint of shortness of breath and nonproductive cough. Her chest x-ray reported moderate left lower lobe pneumo maria t, her urine culture is positive for CRE Klebsiella and Pseudomonas in her sputum culture is positive for MRSA. Patient has been on Zosyn and vancomycin. This morning patient seen resting in bed comfortably. She is awake alert and oriented. No new complaints. 01/07/2019: No adverse event overnight. Patient seen resting in bed comfortably. She is not in pain or distress. She is potential discharge for tomorrow. 01/07/2019: Patient seen resting in bed. No new complaints. She request is to resume her Wellbutrin and Cymbalta. She also requests to change her Barton catheter. I will continue her antibiotics 1 more day IV then she is going to be discharged tomorrow to [place]. 01/09/2019: Patient seen while she is resting in bed comfortably. She does not have new complaint. She is completed 7 days course of antibiotic for possible healthcare associated pneumonia. Her vital signs and blood work are unremarkable. Patient is stable enough to be discharged today to [facility]. I will continue all her home medication. Physical Exam Vital Signs: Temp Pulse Resp BP Pulse Ox 97.7 F 63 24 H 135/67 H 99 01/09/19 08:04 07/12/19 08:04 01/09/19 08:04 01/09/19 08:04 01/09/19 08:04 Intake & Output 01/08/19 01/09/19 01/10/19 06:59 06:59 06:59 Intake Total 1092 2620 100 Output Total 2250 3700 Balance -1158 -1080 100 Weight 86.5 kg 84.7 kg General appearance: PRESENT: no acute distress Eye exam: PRESENT: conjunctiva pink Mouth exam: PRESENT: moist Neck exam: ABSENT: carotid bruit, JVD, lymphadenopathy, thyromegaly Respiratory exam: PRESENT: crackles, decreased breath sounds Cardiovascular exam: PRESENT: irregular rhythm Neurological exam: PRESENT: alert, altered Results Laboratory Results: 01/06/19 06:15 01/06/19 06:15 Impressions: Chest X-Ray 01/01/19 22:31 IMPRESSION: Moderate left lower lobar pneumonia. Recommend CR/CT surveillance including at 7-12 weeks following initiation of any clinically warranted therapy. Guidance Fluoroscopy 01/05/19 00:00 IMPRESSION: SUCCESSFUL PLACEMENT OF A 5 FR DUAL LUMEN 32 CM PICC IN THE RIGHT BASILIC VEIN. Interventional Vascular Procedure 01/05/19 00:00 IMPRESSION: SUCCESSFUL PLACEMENT OF A 5 FR DUAL LUMEN 32 CM PICC IN THE RIGHT BASILIC VEIN. PICC Line Insertion 01/05/19 00:00 IMPRESSION: SUCCESSFUL PLACEMENT OF A 5 FR DUAL LUMEN 32 CM PICC IN THE RIGHT BASILIC VEIN. Qualifiers - * PATIENT BEING DISCHARGED WITH ANY OF THE FOLLOWING DIAGNOSIS: No Acute Heart Failure - Is this a Heart Failure Patient?: No LVEF < 40%?: No- if no continue to question #3 3. Anticoagulant therapy for permanect/persistent/paraoxysmal Afib or Aflutter: N/A
[2019-01-09] MEDS: OXYCODONE HCL IR 5 MG TABLET PO PRN (13:33)
[2019-01-19] MEDS ORDERED: ERGOCALCIFEROL (VITAMIN D2) 50000 UNIT (1.25 MG) CAPSULE PO SCH (09:00)
== END 2019-01-09 13:54 | DRG 193 ==
LOC: ER 21:30 → EH 01-02 00:22 → 4N 01-02 03:34
PROVIDERS: ADMIT Internal Medicine; ATTEND Internal Medicine
PROC: 5A09557 Assistance with Respiratory Ventilation, Greater than 96 Consecutive Hours, Continuous Positive Airway Pressure (ICD-10-PCS; principal; 2019-01-02)
PROC: 02HV33Z Insertion of Infusion Device into Superior Vena Cava, Percutaneous Approach (ICD-10-PCS; 2019-01-05)
PROC: B5181ZA Fluoroscopy of Superior Vena Cava using Low Osmolar Contrast, Guidance (ICD-10-PCS; 2019-01-05)
PROC: B548ZZA Ultrasonography of Superior Vena Cava, Guidance (ICD-10-PCS; 2019-01-05)
DX: J18.1 Lobar pneumonia, unspecified organism (principal); J96.21 Acute and chronic respiratory failure with hypoxia; I50.32 Chronic diastolic (congestive) heart failure; J44.0 Chronic obstructive pulmonary disease with (acute) lower respiratory infection; J44.1 Chronic obstructive pulmonary disease with (acute) exacerbation; E11.9 Type 2 diabetes mellitus without complications; I25.10 Atherosclerotic heart disease of native coronary artery without angina pectoris; E78.5 Hyperlipidemia, unspecified; F32.9 Major depressive disorder, single episode, unspecified; B96.1 Klebsiella pneumoniae [K. pneumoniae] as the cause of diseases classified elsewhere; B96.5 Pseudomonas (aeruginosa) (mallei) (pseudomallei) as the cause of diseases classified elsewhere; B95.62 Methicillin resistant Staphylococcus aureus infection as the cause of diseases classified elsewhere; K21.9 Gastro-esophageal reflux disease without esophagitis; K44.9 Diaphragmatic hernia without obstruction or gangrene; M10.9 Gout, unspecified; M79.7 Fibromyalgia; Z66 Do not resuscitate; N18.3 Chronic kidney disease, stage 3 (moderate); E11.22 Type 2 diabetes mellitus with diabetic chronic kidney disease; D63.1 Anemia in chronic kidney disease; E11.65 Type 2 diabetes mellitus with hyperglycemia; I48.0 Paroxysmal atrial fibrillation; G47.33 Obstructive sleep apnea (adult) (pediatric); Z16.35 Resistance to multiple antimicrobial drugs; I13.10 Hypertensive heart and chronic kidney disease without heart failure, with stage 1 through stage 4 chronic kidney disease, or unspecified chronic kidney disease; E78.00 Pure hypercholesterolemia, unspecified; I25.2 Old myocardial infarction; Z79.899 Other long term (current) drug therapy; Z79.4 Long term (current) use of insulin; Z86.718 Personal history of other venous thrombosis and embolism; Z74.01 Bed confinement status; Z87.891 Personal history of nicotine dependence; Z79.82 Long term (current) use of aspirin; Z79.51 Long term (current) use of inhaled steroids; Z79.891 Long term (current) use of opiate analgesic; Z88.2 Allergy status to sulfonamides; Z88.8 Allergy status to other drugs, medicaments and biological substances; Z99.81 Dependence on supplemental oxygen; Z86.711 Personal history of pulmonary embolism
CPT/HCPCS: 36415; 36569; 71045; 76937; 77001; 80053; 80202; 81001; 82565; 82962; 83605; 83735; 85025; 87040; 87070; 87077; 87086; 87088; 87186; 87205; 94640; 94660; 94667; 94668; 94799; 99285; C1758; J1642; J1644; J1815; J2543; J3370; J3490; J7050; J7060; J7512; J7620; J7626

== ENCOUNTER 2019-03-30 13:05 | Observation (INO) | payer MEDICARE, MEDICAID ==
--- NOTE | 2019-03-30 14:07 | ER Document Report ---
ED Dizziness/Weakness - General Chief Complaint: Syncope Stated Complaint: DIZZINESS/SYNCOPE Time Seen by Provider: 03/30/19 13:46 Notes: This 73-year-old female with COPD on 3 L O2 at baseline, indwelling urinary catheter with chronic UTIs, heart failure with reduced ejection fraction, presents to the emergency department with significant weakness. Patient is concerned because she tried to sit up earlier and fell backwards and she was "ju st about out of my head, and when that happens I always get septic". Patient is weak, denies any dizziness or lightheadedness, denies any vision changes, does complain of acute shortness of breath, denies chest pain, denies any abdominal pain. Patient states that she gets weekly Invanz shots for chronic UTI. TRAVEL OUTSIDE OF THE [place] IN LAST 30 DAYS: No - Related Data Allergies/Adverse Reactions: Sulfa (Sulfonamide Antibiotics) Allergy (Intermediate, Verified 02/03/18 09:37) adhesive tape Allergy (Verified 02/03/18 09:37) atorvastatin calcium [From Lipitor] Allergy (Verified 02/03/18 09:37) celecoxib [From Celebrex] Allergy (Verified 02/03/18 09:37) Past Medical History - Social History Smoking Status: Unknown if Ever Smoked Family History: Reviewed & Not Pertinent, Arthritis, CAD, CVA, DM, Hyperlipidemia, Hypertension - Past Medical History Cardiac Medical History: Reports: Hx Atrial Fibrillation, Hx Congestive Heart Failure - Diastolic dysfunction, Hx Coronary Artery Disease, Hx DVT, Hx Heart Attack, Hx Hypercholesterolemia, Hx Hypertension - essential, Hx Pulmonary Embo lism, Hx Heart Murmur Denies: Hx Peripheral Vascular Disease Pulmonary Medical History: Reports: Hx Asthma, Hx Bronchitis, Hx COPD, Hx Pneumonia - Recurrent MRSA pneumonia., Hx Respiratory Failure - Chronic, Hx Sleep Apnea - Uses C Pap Denies: Hx Tuberculosis Neurological Medical History: Denies: Hx Seizures Endocrine Medical History: Reports: Hx Diabetes Mellitus Type 1, Hx Diabetes Mellitus Type 2. Denies: Hx Hyperthyroidism, Hx Hypothyroidism Renal/ Medical History: Reports: Hx Renal Insufficiency. Denies: Hx Peritoneal Dialysis GI Medical History: Reports: Hx Gastroesophageal Reflux Disease, Hx Hiatal Hernia. Denies: Hx Cirrhosis, Hx Hepatitis Musculoskeletal Medical History: Reports Hx Arthritis, Reports Hx Fibromyalgia, Reports Hx Gout, Reports Hx Muscle Weakness Skin Medical History: Denies Hx Eczema, Denies Hx Psoriasis Psychiatric Medical History: Reports: Hx Anxiety, Hx Depression Infectious Medical History: Reports: Hx C-Diff, Hx MRSA. Denies: Hx Hepatitis Past Surgical History: Reports: Hx Appendectomy, Hx Cholecystectomy, Hx Hysterectomy, Hx Orthopedic Surgery - Multiple left hip procedures, 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 - Immunizations Hx Diphtheria, Pertussis, Tetanus Vaccination: Yes Hx Pneumococcal Vaccination: 05/20/13 Review of Systems - Review of Systems Constitutional: See HPI EENT: No symptoms reported Cardiovascular: See HPI Respiratory: See HPI Gastrointestinal: See HPI Genitourinary: No symptoms reported Female Genitourinary: No symptoms reported Musculoskeletal: No symptoms reported Skin: No symptoms reported Hematologic/Lymphatic: No symptoms reported Neurological/Psychological: See HPI Physical Exam - Vital signs Vitals: Pulse Ox 98 03/30/19 14:51 - Notes Notes: PHYSICAL EXAMINATION: Reviewed vital signs and charting by RN GENERAL: Alert, interacts well. No acute distress. HEAD: Normocephalic, atraumatic. EYES: Pupils equal and round. Extraocular movements intact. ENT: Oral mucosa moist, tongue midline. NECK: Full range of motion. Trachea midline. LUNGS: Diffuse expiratory wheezes in all mead, no rales or rhonchi. No respiratory distress. HEART: Regular rate and rhythm. No murmur ABDOMEN: soft, non-tender. No distention. Bowel sounds present EXTREMITIES: Moves all 4 extremities spontaneously. No edema, No cyanosis. PSYCH: Normal affect, normal mood. SKIN: Warm, dry, normal turgor. No rashes or lesions noted. Course - Re-evaluation Re-evalutation: 03/30/19 17:43 Patient presents from [facility] assisted for weakness and near syncopal episode. Patient has an indwelling Barton catheter and her work-up was overall unremarkable. Creatinine 1.4 which is consistent with previous. CT head was normal did not show any evidence of a bleed or mass-effect. EKG did not show any evidence of a STEMI. Lactate 1.1. Because patient was acutely confused I called Dr. Avendano, hospitalist, to formally assess the patient for disposition for admission since he knows the patient and he is going to come and assess the patient. 03/30/19 19:58 Dr. Tate accepted patient to telemetry. - Vital Signs Vital signs: Temp Pulse Resp BP Pulse Ox 122/70 98 03/30/19 15:01 03/30/19 15:01 - Laboratory Result Diagrams: 03/30/19 15:05 03/30/19 15:05 Laboratory results interpreted by me: 03/30/19 03/30/19 03/30/19 15:05 15:05 15:05 RBC 3.67 L Hgb 10.5 L Hct 31.9 L RDW 14.9 H Lymph % (Auto) 10.1 L Seg Neutrophils % 84.7 H Carbonic Acid ABG pCO2 ABG HCO3 ABG Total CO2 Carbon Dioxide 34 H BUN 45 H Creatinine 1.40 H Est GFR ( Amer) 44 L Est GFR (MDRD) Non-Af 37 L Glucose 147 H Urine Nitrite POSITIVE H 03/30/19 18:40 RBC Hgb Hct RDW Lymph % (Auto) Seg Neutrophils % Carbonic Acid 1.61 H ABG pCO2 53.4 H ABG HCO3 32.1 H ABG Total CO2 33.8 H Carbon Dioxide BUN Creatinine Est GFR ( Amer) Est GFR (MDRD) Non-Af Glucose Urine Nitrite Discharge - Discharge Clinical Impression: Altered mental status Qualifiers: Altered mental status type: disorientation Qualified Code(s): R41.0 - Disorientation, unspecified Urinary tract infection associated with indwelling urethral catheter Qualifiers: Encounter type: subsequent encounter Qualified Code(s): T83.511D - Infection and inflammatory reaction due to indwelling urethral catheter, subsequent encounter Condition: Good Disposition: ADMITTED INPATIENT Admitting Provider: Lea (Hospitalist) Unit Admitted: Telemetry
--- NOTE | 2019-03-30 14:37 | RADIOLOGY REPORT (SQ) ---
EXAM DESCRIPTION: CHEST SINGLE VIEW COMPLETED DATE/TIME: 03/30/2019 2:28 pm REASON FOR STUDY: SOB COMPARISON: 01/01/2019 EXAM PARAMETERS: NUMBER OF VIEWS: One view. TECHNIQUE: Single frontal radiographic view of the chest acquired. RADIATION DOSE: NA LIMITATIONS: None. FINDINGS: LUNGS AND PLEURA: Minimal linear lingular opacities, likely atelectasis or scarring. No p leural effusion or pneumothorax. MEDIASTINUM AND HILAR STRUCTURES: No masses. Contour normal. HEART AND VASCULAR STRUCTURES: Enlarged cardiac silhouette, stable. Aortic atherosclerosis. BONES: No acute findings. Extensive degenerative change at the left shoulder, stable. Status post r ight proximal humeral osteotomy. HARDWARE: None in the chest. OTHER: No other significant finding. IMPRESSION: Stable enlarged cardiac silhouette. Minimal linear left lingular opacities, likely atel ectasis or scarring TECHNICAL DOCUMENTATION: JOB ID: [id number] Rep- All Rights Reserved Reading location - IP/workstation name: [email or web address]
[2019-03-30 15:41] LABS: ABSOLUTE LYMPHOCYTES (AUTO) 0.7 10^3/uL (0.5-4.7); ABSOLUTE MONOCYTES (AUTO) 0.3 10^3/uL (0.1-1.4); ABSOLUTE NEUT (AUTO) 5.6 10^3/uL (1.7-8.2); BASOPHILS % (AUTO) 0.3 % (0-2); EOSINOPHILS % (AUTO) 0.2 % (0-6); HEMATOCRIT 31.9 % (36.0-47.0); HEMOGLOBIN 10.5 g/dL (12.0-15.5); LYMPHOCYTES % (AUTO) 10.1 % (13-45); MEAN CORPUSCULAR HEMOGLOBIN 28.5 pg (27.0-33.4); MEAN CORPUSCULAR HGB CONC 32.8 g/dL (32.0-36.0); MEAN CORPUSCULAR VOLUME 87 fl (80-97); MONOCYTES % (AUTO) 4.7 % (3-13); PLATELET COUNT 220 10^3/uL (150-450); RED BLOOD COUNT 3.67 10^6/uL (3.72-5.28); RED CELL DISTRIBUTION WIDTH 14.9 % (11.5-14.0); SEGMENTED NEUTROPHILS % (AUTO) 84.7 % (42-78); TOTAL CELLS COUNTED % (AUTO) 100 %; WHITE BLOOD COUNT 6.7 10^3/uL (4.0-10.5)
[2019-03-30 15:45] LABS: APPEARANCE,URINE CLEAR; BILIRUBIN,URINE NEGATIVE (NEGATIVE); COLOR,URINE COLORLESS; GLUCOSE, URINE NEGATIVE (NEGATIVE); KETONES,URINE NEGATIVE (NEGATIVE); LEUKOCYTE ESTERASE,URINE NEGATIVE (NEGATIVE); NITRITE,URINE POSITIVE (NEGATIVE); PROTEIN,URINE NEGATIVE (NEGATIVE); URINE SPECIFIC GRAVITY 1.001; UROBILINOGEN,URINE NEGATIVE mg/dL (<2.0)
[2019-03-30 16:00] LABS: ALBUMIN 3.7 g/dL (3.5-5.0); ALKALINE PHOSPHATASE 87 U/L (38-126); ANION GAP 8 (5-19); ASPARTATE AMINO TRANSFERASE 19 U/L (14-36); BILIRUBIN,DIRECT 0.3 mg/dL (0.0-0.4); BILIRUBIN,TOTAL 0.4 mg/dL (0.2-1.3); BLOOD UREA NITROGEN 45 mg/dL (7-20); CALCIUM 9.3 mg/dL (8.4-10.2); CARBON DIOXIDE 34 mmol/L (22-30); CHLORIDE 98 mmol/L (98-107); CREATINE KINASE 58 U/L (30-135); GLUCOSE 147 mg/dL (75-110); POTASSIUM 3.9 mmol/L (3.6-5.0)
[2019-03-30 16:12] LABS: CREATINE KINASE MB 1.47 ng/mL (<4.55); NT PRO BNP 182 pg/mL (<450)
[2019-03-30 16:30] LABS: TROPONIN I < 0.012 ng/mL
--- NOTE | 2019-03-30 17:01 | RADIOLOGY REPORT (SQ) ---
EXAM DESCRIPTION: CT HEAD WITHOUT COMPLETED DATE/TIME: 03/30/2019 4:53 pm REASON FOR STUDY: Altered mental status COMPARISON: 04/25/2015. TECHNIQUE: Axial images acquired through the brain without intravenous contrast. Images reviewed wi th bone, brain and subdural windows. Additional sagittal and coronal reconstructions were generated. Images stored on PACS. All CT scanners at this facility use dose modulation, iterative reconstruction, and/or weight based d osing when appropriate to reduce radiation dose to as low as reasonably achievable (ALARA). [facility]: Dose Right [facility]: CareDose [facility]: Dose Right [facility]: Teradose 4D [facility]: Smart Carebase RADIATION DOSE: CT Rad equipment meets quality standard of care and radiation dose reduction techniq ues were employed. CTDIvol: 53.2 mGy. DLP: 1070 mGy-cm. mGy. LIMITATIONS: None. FINDINGS: VENTRICLES: Prominent. CEREBRUM: No masses. No hemorrhage. No midline shift. Areas of low density in the white matter mos t likely due to chronic micro-vascular ischemic change. No evidence for acute infarction. CEREBELLUM: No masses. No hemorrhage. No alteration of density. No evidence for acute infarction. EXTRAAXIAL SPACES: Mild age-related involutional change. No fluid collections. No masses. ORBITS AND GLOBE: No intra- or extraconal masses. Normal contour of globe without masses. CALVARIUM: No fracture. PARANASAL SINUSES: No fluid or mucosal thickening. SOFT TISSUES: No mass or hematoma. OTHER: No other significant finding. IMPRESSION: MILD CHRONIC CHANGES OF ATROPHY AND MICROVASCULAR ISCHEMIA. NO ACUTE PROCESS. EVIDENCE OF ACUTE STROKE: NO. TECHNICAL DOCUMENTATION: JOB ID: [id number] Quality ID # [id number]: Final reports with documentation of one or more dose reduction techniques (e.g., Au tomated exposure control, adjustment of the mA and/or kV according to patient size, use of iterative reconstruction technique) 2010 [employer]- All Rights Reserved Reading location - IP/workstation name: [email or web address]
[2019-03-30] MEDS ORDERED: IPRATROPIUM/ALBUTEROL 0.5-2.5 MG/3 ML AMPUL NEB PRN (18:09)
--- NOTE | 2019-03-30 18:29 | PDOC H&P ---
History of Present Illness Admission Date/PCP: KARTHIKEYAN HERNANDEZ MD Patient complains of: weakness, confusion, SOB, cough History of Present Illness: Ms. Fernandez is a 72 year old female with a past medical history of atrial fibrillation, chronic diastolic heart failure, insulin dependent diabetes mellitus, CAD, history of DVT and PE, hyperlipidemia, hypertension, asthma, COPD, on indwelling Barton cath from hypotonic bladder recurrent UTI and history of UTI with ESBL who was brought in because of increasing weakness, cough, SOB and possible blocked Barton catheter from the group home was brought in due to reported confusion at home. Patient has multiple and recurrent UTIs with prior ESBL and CRE Klebsiella. She reportedly was more confused in the group home and was noted to be weaker in the past few days. Upon encounter, she appears lethargic but easily arousable. She is oriented x4 but does appear sleepy. She says she has been gradually progressive shortness of breath in the past week or so. She says that it has been associated with minimally productive cough in the past 2 to 3 days. She says she has been having chills at the group home but denies actual fever. She says she also has been feeling more weak in the past week. She thought that she had another urinary tract infection as she usually feels weak when she gets another UTI. Past Medical History Cardiac Medical History: Reports: Atrial Fibrillation, Congestive Heart Failure - Diastolic dysfunction, Coronary Artery Disease, DVT, Myocardial Infarction, Hyperlipidema, Hypertension - essential, Pulmonary Embolism, Heart Murmur Denies: Peripheral Vascular Disease Pulmonary Medical History: Reports: Asthma, Bronchitis, Chronic Obstructive Pulmonary Disease (COPD), Pneumonia - Recurrent MRSA pneumonia., Respiratory Failure - Chronic, Sleep Apnea - Uses C Pap Denies: Tuberculosis Neurological Medical History: Denies: Seizures Endocrine Medical History: Reports: Diabetes Mellitus Type 1, Diabetes Mellitus Type 2 Denies: Hyperthyroidism, Hypothyroidism GI Medical History: Reports: Gastroesophageal Reflux Disease, Hiatal Hernia Denies: Cirrhosis, Hepatitis Musculoskeltal Medical History: Reports: Arthritis, Fibromyalgia, Gout Skin Medical History: Denies: Eczema, Psoriasis Psychiatric Medical History: Reports: Depression Hematology: Reports: Anemia Infectious Medical History: Reports: Clostridium Difficile, Methicillin- Resistant Staph Aureus Past Surgical History Past Surgical History: Reports: Appendectomy, Cholecystectomy, Hysterectomy, Orthopedic Surgery - Multiple left hip procedures, 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 Social History Smoking Status: Never Smoker Frequency of Alcohol Use: None Hx Recreational Drug Use: No Drugs: None Hx Prescription Drug Abuse: No Family History Family History: Reviewed & Not Pertinent, Arthritis, CAD, CVA, DM, Hyperlipidemia, Hypertension Parental Family History Reviewed: Yes - No premature CAD Children Family History Reviewed: No Sibling(s) Family History Reviewed.: No Medication/Allergy Home Medications: Acetaminophen [Tylenol] 650 mg PO Q4HP PRN 01/02/19 Albuterol Sulfate [Proair HFA Inhalation Aerosol 8.5 gm MDI] 2 puff IH Q4HP PRN 01/02/19 Amitriptyline HCl [Elavil 10 mg Tablet] 10 mg PO QHS 01/02/19 Ascorbic Acid [Vitamin C 500 mg Tablet] 500 mg PO BID 01/02/19 Baclofen [Baclofen 10 mg Tablet] 10 mg PO Q8HP PRN 01/02/19 Benzocaine/Menthol [Chloraseptic Sore Throat Lozenge] 1 each BUCCAL Q1HP PRN 01/02/19 Benzonatate [Tessalon Perles 100 mg Capsule] 200 mg PO TID 01/02/19 Budesonide [Pulmicort] 0.25 mg IH RTBID 01/02/19 Buspirone HCl [Buspar 5 mg Tablet] 5 mg PO Q12 01/02/19 Diltiazem HCl [Cardizem 30 mg Tablet] 30 mg PO Q8 01/02/19 Docusate Sodium [Colace 100 mg Capsule] 100 mg PO BID 01/02/19 Ergocalciferol (Vitamin D2) [Drisdol 50,000 unit (1.25MG) Capsule] 50,000 unit PO [id number] 01/02/19 Akila Leonard/Linoleic/Gamoleni [Evening Leonard 1,000 mg Sftg] 500 mg PO TID 01/02/19 Fentanyl [Duragesic 25 mcg/hr Transdermal Patch] 1 each TD Q3D 01/02/19 Ferrous Sulfate [Feosol 325 mg Tablet] 325 mg PO DAILY 01/02/19 Fexofenadine HCl [Shaniqua] 180 mg PO QAM 01/02/19 Fluticasone/Salmeterol [Advair 500-50 Diskus 14 Dose/Diskus] 1 puff IH Q12 01/02/19 Furosemide [Lasix 40 mg Tablet] 40 mg PO BID 01/02/19 Guaifenesin [Guaifenesin ER] 600 mg PO Q12 01/02/19 Guaifenesin/D-Methorphan Hb [Robitussin Dm S-F Cough Syrup] 10 ml PO Q4HP PRN 01/02/19 Hydralazine HCl [Apresoline 25 mg Tablet] 25 mg PO Q8 01/02/19 Insulin Detemir [Levemir] 32 unit SQ DAILY 01/02/19 Insulin Lispro [Humalog Insulin (Lispro) 100 unit/mL] 0 unit SUBCUT .SLD SCALE 01/02/19 Ipratropium/Albuterol Sulfate [Duoneb 3 ml Ampul] 3 ml NEB [id number] 01/02/19 Ketotifen Fumarate [Refresh] 1 drop OU QID 01/02/19 Lactulose [Constulose 10 gm/15 mL Oral Solution] 15 ml PO BIDP PRN 01/02/19 Levalbuterol HCl [Xopenex Neb 0.63 mg/3 ml Ampul] 0.63 mg NEB RTQ8 01/02/19 Lidocaine [Lidoderm 5% (700 mg) Transdermal Patch] 2 patch TP DAILYP PRN 01/02/19 Magnesium Hydroxide [Milk of Magnesia 30 ml Udcup] 30 ml PO DAILYP PRN 01/02/19 Magnesium Oxide [Mag-Ox 400 mg Tablet] 400 mg PO Q2D 01/02/19 Melatonin 10 mg PO QHS 01/02/19 Metoprolol Succinate [Toprol Xl] 25 mg PO DAILY 01/02/19 Mirabegron [Myrbetriq] 25 mg PO DAILY 01/02/19 Nitroglycerin [Nitrostat 0.4 mg (1/150 Gr) Tabs 25/Bottle] 0.4 mg SL Q5MP PRN 01/02/19 Olopatadine HCl [Pataday] 1 drop OU DAILY 01/02/19 Oxycodone HCl [Oxycodone HCl 10 MG Tablet] 10 mg PO Q8 01/02/19 Phenazopyridine HCl [Urinary Pain Relief] 95 mg PO Q8HP PRN 01/02/19 Phenol/Sodium Phenolate [Chloraseptic Sore Throat [place] 177 ml] 1 sprays MM Q1HP PRN 01/02/19 Polymyxin B Sulf/Trimethoprim [Polytrim Eye Drops] 1 drop OS QID 01/02/19 Prednisone [Deltasone] 20 mg PO DAILY 01/02/19 Pregabalin [Lyrica 25 mg Capsule] 25 mg PO Q8 01/02/19 Promethazine HCl [Phenergan 25 mg Tablet] 12.5 mg PO Q4HP PRN 01/02/19 Ranitidine HCl [Zantac 150 mg Tablet] 150 mg PO BID 01/02/19 Ranolazine [Ranexa 500 mg Tab.sr] 500 mg PO Q12 01/02/19 Roflumilast [Daliresp 500 mcg Tablet] 500 mcg PO DAILY 01/02/19 Sennosides/Docusate 8.6-50 mg [Senna Plus Tablet] 1 tab PO QHS 01/02/19 Simethicone [Mylicon 80 mg Chewable Tablet] 80 mg PO Q6HP PRN 01/02/19 Tiotropium [place] [Spiriva Handihaler 5 Cap/Kit (18 Mcg/Cap)] 1 cap IH DAILY 01/02/19 Tolterodine Tartrate [Detrol] 2 mg PO DAILY 01/02/19 Turmeric/Turmeric Root Extract [Turmeric 500 mg Capsule] 1,000 mg PO BID 01/02/19 Bupropion HCl [Wellbutrin 75 mg Tablet] 75 mg PO Q12 #60 tablet 01/09/19 Duloxetine HCl [Cymbalta 30 mg Capsule.] 60 mg PO DAILY #60 capsule. 01/09/19 Allergies/Adverse Reactions: Sulfa (Sulfonamide Antibiotics) Allergy (Intermediate, Verified 02/03/18 09:37) adhesive tape Allergy (Verified 02/03/18 09:37) atorvastatin calcium [From Lipitor] Allergy (Verified 02/03/18 09:37) celecoxib [From Celebrex] Allergy (Verified 02/03/18 09:37) Review of Systems All systems: reviewed and no additional remarkable complaints except as stated - As mentioned in HPI Physical Exam Vital Signs: Temp Pulse Resp BP Pulse Ox 122/70 98 03/30/19 15:01 03/30/19 15:01 General appearance: PRESENT: no acute distress, well-developed, well-nourished Head exam: PRESENT: atraumatic, normocephalic Eye exam: PRESENT: conjunctiva pink, EOMI, PERRLA. ABSENT: scleral icterus Ear exam: PRESENT: normal external ear exam Mouth exam: PRESENT: moist, tongue midline Neck exam: ABSENT: carotid bruit, JVD, lymphadenopathy, thyromegaly Respiratory exam: PRESENT: decreased breath sounds. ABSENT: rales, rhonchi, wheezes Cardiovascular exam: PRESENT: RRR. ABSENT: diastolic murmur, rubs, systolic murmur Pulses: PRESENT: normal dorsalis pedis pul GI/Abdominal exam: PRESENT: normal bowel sounds, soft. ABSENT: distended, guarding, mass, organolmegaly, rebound, tenderness Rectal exam: PRESENT: deferred Extremities exam: PRESENT: full ROM. ABSENT: calf tenderness, clubbing, pedal edema Neurological exam: PRESENT: oriented to person, oriented to place, oriented to time, oriented to situation, CN II-XII grossly intact. ABSENT: motor sensory deficit Results Laboratory Results: 03/30/19 15:05 03/30/19 15:05 03/30/19 03/30/19 03/30/19 15:05 15:05 15:05 WBC 6.7 RBC 3.67 L Hgb 10.5 L Hct 31.9 L MCV 87 MCH 28.5 MCHC 32.8 RDW 14.9 H Plt Count 220 Seg Neutrophils % 84.7 H Sodium 139.8 Potassium 3.9 Chloride 98 Carbon Dioxide 34 H Anion Gap 8 BUN 45 H Creatinine 1.40 H Est GFR ( Amer) 44 L Glucose 147 H Lactic Acid Calcium 9.3 Total Bilirubin 0.4 AST 19 Alkaline Phosphatase 87 Total Protein 7.0 Albumin 3.7 Urine Color COLORLESS Urine Appearance CLEAR Urine pH 7.0 Ur Specific [place] 1.001 Urine Protein NEGATIVE Urine Glucose (UA) NEGATIVE Urine Ketones NEGATIVE Urine Blood NEGATIVE Urine Nitrite POSITIVE H Ur Leukocyte Esterase NEGATIVE Urine WBC (Auto) 0 Urine RBC (Auto) 0 03/30/19 16:23 WBC RBC Hgb Hct MCV MCH MCHC RDW Plt Count Seg Neutrophils % Sodium Potassium Chloride Carbon Dioxide Anion Gap BUN Creatinine Est GFR ( Amer) Glucose Lactic Acid 1.1 Calcium Total Bilirubin AST Alkaline Phosphatase Total Protein Albumin Urine Color Urine Appearance Urine pH Ur Specific [place] Urine Protein Urine Glucose (UA) Urine Ketones Urine Blood Urine Nitrite Ur Leukocyte Esterase Urine WBC (Auto) Urine RBC (Auto) 03/30/19 03/30/19 15:05 15:05 Creatine Kinase 58 CK-MB (CK-2) 1.47 Troponin I < 0.012 NT-Pro-B Natriuret Pep 182 Impressions: Chest X-Ray 03/30/19 14:01 IMPRESSION: Stable enlarged cardiac silhouette. Minimal linear left lingular opacities, likely atelectasis or scarring Head CT 03/30/19 16:11 IMPRESSION: MILD CHRONIC CHANGES OF ATROPHY AND MICROVASCULAR ISCHEMIA. NO ACUTE PROCESS. EVIDENCE OF ACUTE STROKE: NO. Assessment and Plan - Diagnosis (1) Acute encephalopathy Is this a current diagnosis for this admission?: Yes Plan: Upon encounter, she appears lethargic but easily arousable. She is oriented x4 but does appear sleepy. She says she has been gradually progressive shortness of breath in the past week or so. She says that it has been associated with minimally productive cough in the past [address] head is unremarkable. She initially presents with weakness for her recurrent UTIs. However urinalysis is not consistent with urinary tract infection. Will check an ABG. Chest x-ray shows small densities in the left lower lobe possibly scarring. She does have scarring on the left lower lobe on previous chest x- rays. Will pursue a chest CT to further evaluate for occult pneumonia as she does report of minimally productive cough in the past 2 days. Will check a TSH as well. She denies recent changes in her medications. We will have her home meds verified as she does have a history of polypharmacy. (2) COPD with exacerbation Is this a current diagnosis for this admission?: Yes Plan: She has slightly decreased breath sounds on the bases with very minimal wheezing. However she does have a long-standing history of COPD and is on home O2. We will start her on steroids and breathing treatments. (3) Chronic diastolic CHF (congestive heart failure) Is this a current diagnosis for this admission?: Yes (4) Coronary artery disease Qualifiers: Coronary Disease-Associated Artery/Lesion type: [place] artery Is this a current diagnosis for this admission?: Yes Plan: Stable. (5) DM type 2 (diabetes mellitus, type 2) Is this a current diagnosis for this admission?: Yes (6) HTN (hypertension) Is this a current diagnosis for this admission?: Yes - Time Time Spent with patient: 25-34 minutes
[2019-03-30] MEDS ORDERED: GLUCAGON,HUMAN RECOMB 1 MG INJ IM PRN (18:32)
[2019-03-30] MEDS ORDERED: DEXTROSE 40% GEL 15 GM TUBE PO PRN ×2 (18:32)
[2019-03-30] MEDS ORDERED: DEXTROSE 50%-WATER 25 GM/50 ML DISP.SYRIN IV PRN ×2 (18:32)
--- NOTE | 2019-03-30 18:32 | ADVANCED CARE ---
- Diagnosis (1) Acute encephalopathy Diagnosis Current: Yes (2) COPD exacerbation Diagnosis Current: Yes (3) Diabetes mellitus type II, controlled Diagnosis Current: Yes (4) HTN (hypertension) Diagnosis Current: Yes Resuscitation Status: Full Code Discussion: When asked about her CODE STATUS, patient verbalized " I am a DNR but I want you to massage my heart or shock me if it stops beating". When this was further clarified, she later expresses she want us to attempt resuscitation and prefers to receive chest compressions, defibrillation and temporary mechanical ventilation if she goes into cardiac or respiratory arrest. She verbalized that she does not however want to be on long-term ventilation. She says her niece, Lida Camarillo is her surrogate medical decision maker.
[2019-03-30 19:08] LABS: ARTERIAL BLOOD BASE EXCESS 6.1 mmol/L; ARTERIAL BLOOD H2CO3 1.61 mmol/L (1.05-1.35); ARTERIAL BLOOD HCO3 32.1 mmol/L (20-24); ARTERIAL BLOOD O2 SATURATION 96.4 % (94-98); ARTERIAL BLOOD PCO2 53.4 mmHg (35-45); ARTERIAL BLOOD PO2 86.7 mmHg (80-100); ARTERIAL BLOOD TOTAL CO2 33.8 mmol/L (21-25)
[2019-03-30 19:11] LABS: ARTERIAL BLOOD FIO2 3L
--- NOTE | 2019-03-30 21:47 | RADIOLOGY REPORT (SQ) ---
EXAM DESCRIPTION: CT CHEST WITHOUT IV CONTRAST COMPLETED DATE/TME: 03/30/2019 18:06 CLINICAL HISTORY: 73 years, Female, increasing cough, SOB This exam was performed according to our departmental dose-optimization program which includes automated exposure control, adjustment of the mA and/or kVp according to patient size and/or use of iterative reconstruction technique where applicable. FINDINGS: Thyroid is within normal limits. Aorta is mildly calcified without aneurysm. Mild coronary artery calcification. No significant mediastinal, hilar or axillary lymphadenopathy. No pleural or pericardial effusions. The visualized upper abdominal organs are unremarkable. Evaluation of the lung parenchyma demonstrates trachea and major airways to be patent. No suspicious lung nodules or masses. Mild bibasilar atelectatic changes. No consolidations to suggest pneumonia. Osseous structures demonstrate postoperative changes in the right shoulder with degenerative changes. These correlate with chest radiograph done same day. IMPRESSION: No acute disease.
[2019-03-30] MEDS: HEPARIN SOD (PORCINE) 5,000 UNIT/ML 1 ML VIAL SUBCUT SCH (22:34)
[2019-03-30] MEDS: INSULIN LISPRO 100 UNIT/ML 3 ML VIAL SUBCUT SCH (22:34)
[2019-03-30] MEDS ORDERED: INFLUENZA QUAD (6MOS+) 2019-20 VAC 0.5 ML SYR IM ONE (23:02)
--- NOTE | 2019-03-31 00:29 | EKG REPORT ---
SEVERITY:- ABNORMAL ECG - SINUS OR ECTOPIC ATRIAL RHYTHM NONSPECIFIC IVCD WITH LAD LVH WITH SECONDARY REPOLARIZATION ABNORMALITY : Confirmed by: Yesenia Graham MD 31-Mar-2019 00:28:39
[2019-03-31] MEDS: INSULIN LISPRO 100 UNIT/ML 3 ML VIAL SUBCUT SCH ×4 (08:09→22:06)
--- NOTE | 2019-03-31 08:58 | PDOC PROGRESS REPORT ---
Subjective Progress Note for:: 03/31/19 Subjective:: 72 year old female with a past medical history of atrial fibrillation, chronic diastolic heart failure, insulin dependent diabetes mellitus, CAD, history of DVT and PE, hyperlipidemia, hypertension, asthma, COPD, on indwelling Barton cath from hypotonic bladder recurrent UTI and history of UTI with ESBL who was brought in because of increasing weakness, cough, SOB and possible blocked Barton catheter from the correction was brought in due to reported confusion at home. Patient has multiple and recurrent UTIs with prior ESBL and CRE Klebsiella. She reportedly was more confused in the correction and was noted to be weaker in the past few days. Upon encounter, she appears lethargic but easily arousable. She is oriented x4 but does appear sleepy. She says she has been gradually progressive shortness of breath in the past week or so. She says that it has been associated with minimally productive cough in the past 2 to 3 days. She says she has been having chills at the correction but denies actual fever. She says she also has been feeling more weak in the past week. She thought that she had another urinary tract infection as she usually feels weak when she gets another UTI. 03/31/[id number]-vlcj-old female with history of atrial fibrillation on diltiazem at home not on anticoagulation, chronic diastolic heart failure, insulin-dependent diabetes mellitus, coronary artery disease, history of DVT and pulmonary embolism, hypertension hyperlipidemia asthma COPD indwelling Barton's catheter due to hypotonic bladder with recurrent UTI and history of ESBL came to the emergency room from [place] [facility] with increasing weakness. Also comp laining of shortness of breath and blocked Barton's catheter at the time of admission. CT head was negative at the time of admission chest CT is negative for pneumonia. Patient is complaining of severe pains want her medications to be restarted. No acute events in the last 24 hours. T-max is 98.4. Blood pressure is 109/60. Blood cultures are pending. presently on ceftriaxone 1 g IV daily. Comfortably in the bed sleeping woke up when complaining of extreme pain. Reason For Visit: ACUTE ENCEPHALOPATHY, POSSIBLE PNEUMONIA Physical Exam Vital Signs: Temp Pulse Resp BP Pulse Ox 98.4 F 102 H 18 109/60 95 03/30/19 23:45 03/31/19 07:00 03/30/19 23:45 03/30/19 23:45 03/30/19 23:45 Intake & Output 03/30/19 03/31/19 04/01/19 06:59 06:59 06:59 Output Total 500 Balance -500 Weight 181.2 kg General appearance: PRESENT: cooperative, mild distress, obese Head exam: PRESENT: atraumatic Eye exam: PRESENT: PERRLA Ear exam: PRESENT: normal external ear exam Mouth exam: PRESENT: moist, tongue midline Teeth exam: PRESENT: poor dentation Neck exam: ABSENT: carotid bruit, JVD, lymphadenopathy, thyromegaly Respiratory exam: PRESENT: decreased breath sounds Cardiovascular exam: PRESENT: tachycardia Vascular exam: PRESENT: normal capillary refill GI/Abdominal exam: PRESENT: normal bowel sounds, soft. ABSENT: distended, guarding, mass, organolmegaly, rebound, tenderness Rectal exam: PRESENT: deferred Extremities exam: PRESENT: full ROM. ABSENT: calf tenderness, clubbing, pedal edema Neurological exam: PRESENT: alert, awake, oriented to person, oriented to place, oriented to time, oriented to situation, CN II-XII grossly intact. ABSENT: motor sensory deficit Psychiatric exam: PRESENT: agitated, anxious Results Laboratory Results: 03/30/19 15:05 03/30/19 15:05 03/30/19 03/30/19 03/30/19 15:05 15:05 15:05 WBC 6.7 RBC 3.67 L Hgb 10.5 L Hct 31.9 L MCV 87 MCH 28.5 MCHC 32.8 RDW 14.9 H Plt Count 220 Seg Neutrophils % 84.7 H Carbonic Acid HCO3/H2CO3 Ratio ABG pH ABG pCO2 ABG pO2 ABG HCO3 ABG O2 Saturation ABG Base Excess FiO2 Sodium 139.8 Potassium 3.9 Chloride 98 Carbon Dioxide 34 H Anion Gap 8 BUN 45 H Creatinine 1.40 H Est GFR ( Amer) 44 L Glucose 147 H Lactic Acid Calcium 9.3 Total Bilirubin 0.4 AST 19 Alkaline Phosphatase 87 Total Protein 7.0 Albumin 3.7 TSH Urine Color COLORLESS Urine Appearance CLEAR Urine pH 7.0 Ur Specific [place] 1.001 Urine Protein NEGATIVE Urine Glucose (UA) NEGATIVE Urine Ketones NEGATIVE Urine Blood NEGATIVE Urine Nitrite POSITIVE H Ur Leukocyte Esterase NEGATIVE Urine WBC (Auto) 0 Urine RBC (Auto) 0 03/30/19 03/30/1903/30/19 15:05 16:23 18:40 WBC RBC Hgb Hct MCV MCH MCHC RDW Plt Count Seg Neutrophils % Carbonic Acid 1.61 H HCO3/H2CO3 Ratio 19:1 ABG pH 7.40 ABG pCO2 53.4 H ABG pO2 86.7 ABG HCO3 32.1 H ABG O2 Saturation 96.4 ABG Base Excess 6.1 FiO2 3L Sodium Potassium Chloride Carbon Dioxide Anion Gap BUN Creatinine Est GFR ( Amer) Glucose Lactic Acid 1.1 Calcium Total Bilirubin AST Alkaline Phosphatase Total Protein Albumin TSH 0.82 Urine Color Urine Appearance Urine pH Ur Specific [place] Urine Protein Urine Glucose (UA) Urine Ketones Urine Blood Urine Nitrite Ur Leukocyte Esterase Urine WBC (Auto) Urine RBC (Auto) 03/30/19 03/30/19 15:05 15:05 Creatine Kinase 58 CK-MB (CK-2) 1.47 Troponin I < 0.012 NT-Pro-B Natriuret Pep 182 Impressions: Chest X-Ray 03/30/19 14:01 IMPRESSION: Stable enlarged cardiac silhouette. Minimal linear left lingular opacities, likely atelectasis or scarring Head CT 03/30/19 16:11 IMPRESSION: MILD CHRONIC CHANGES OF ATROPHY AND MICROVASCULAR ISCHEMIA. NO ACUTE PROCESS. EVIDENCE OF ACUTE STROKE: NO. Chest CT 03/30/19 18:06 IMPRESSION: No acute disease. Assessment and Plan - Diagnosis (1) Acute encephalopathy Is this a current diagnosis for this admission?: Yes Plan: Upon encounter, she appears lethargic but easily arousable. She is oriented x4 but does appear sleepy. She says she has been gradually progressive shortness of breath in the past week or so. She says that it has been associated with minimally productive cough in the past [address] head is unremarkable. She initially presents with weakness for her recurrent UTIs. However urinalysis is not consistent with urinary tract infection. Will check an ABG. Chest x-ray shows small densities in the left lower lobe possibly scarring. She does have scarring on the left lower lobe on previous chest x- rays. Will pursue a chest CT to further evaluate for occult pneumonia as she does report of minimally productive cough in the past 2 days. Will check a TSH as well. She denies recent changes in her medications. We will have her home meds verified as she does have a history of polypharmacy. 03/31/[id number]-fckp-old female admitted from the correction with increased weakness shortness of breath and blocked indwelling Barton's catheter. Also found to be confused and lethargic. Today alert awake oriented communicating well. ABG in the emergency room shows pH of 7.4/PCO2 53 PO2 86 and oxygen saturation of 96% on 3 L. She has history of COPD on 2 L oxygen at correction. Head was negative in my opinion altered mental status was resolved. Altered mental status/acute encephalopathy most likely secondary to polypharmacy. (2) COPD exacerbation Is this a current diagnosis for this admission?: Yes Plan: She has slightly decreased breath sounds on the bases with very minimal wheezing. However she does have a long-standing history of COPD and is on home O2. We will start her on steroids and breathing treatments. 03/31/2019-patient has history of COPD on 2 L oxygen at her correction. On examination today bilateral entry was decreased no wheezing no crepitations present. Pulse ox is 95% on 2 L this morning. Plan is to continue the present management. And is to discontinue prednisone from today. (3) Chronic diastolic CHF (congestive heart failure) Is this a current diagnosis for this admission?: No Plan: 03/31/2019-patient has history of chronic diastolic heart failure. Not in fluid overload. Chest x-ray was negative for pulmonary edema no pedal edema is noticed. Pressure this morning is 109/60. (4) Coronary artery disease Qualifiers: Coronary Disease-Associated Artery/Lesion type: [place] artery Is this a current diagnosis for this admission?: No Plan: 03/31/2019-patient has history of coronary artery disease denies any chest pains this morning. Home medications are still pending. Once the pharmacy confirmed the medications I will renew them. (5) DM type 2 (diabetes mellitus, type 2) Is this a current diagnosis for this admission?: No Plan: 03/31/2019-patient has history of type 2 diabetes mellitus on insulin at the correction. Latest blood sugar is 16. Plan is to continue the insulin sliding scale before meals and at bedtime. (6) HTN (hypertension) Is this a current diagnosis for this admission?: No Plan: 03/31/2019-blood pressure today is 110/60. Stable. plan Is to closely monitor the blood pressures every shift.
[2019-03-31 09:06] LABS: ABSOLUTE BASOPHILS # (AUTO) 0.1 10^3/uL (0.0-0.2); ABSOLUTE EOSINOPHILS # (AUTO) 0.1 10^3/uL (0.0-0.6); ABSOLUTE LYMPHOCYTES (AUTO) 2.1 10^3/uL (0.5-4.7); ABSOLUTE MONOCYTES (AUTO) 1.1 10^3/uL (0.1-1.4); ABSOLUTE NEUT (AUTO) 5.3 10^3/uL (1.7-8.2); BASOPHILS % (AUTO) 0.6 % (0-2); EOSINOPHILS % (AUTO) 0.9 % (0-6); HEMATOCRIT 33.8 % (36.0-47.0); HEMOGLOBIN 11.3 g/dL (12.0-15.5); LYMPHOCYTES % (AUTO) 23.9 % (13-45); MEAN CORPUSCULAR HEMOGLOBIN 28.8 pg (27.0-33.4); MEAN CORPUSCULAR HGB CONC 33.5 g/dL (32.0-36.0); MEAN CORPUSCULAR VOLUME 86 fl (80-97); MONOCYTES % (AUTO) 12.9 % (3-13); PLATELET COUNT 251 10^3/uL (150-450); RED BLOOD COUNT 3.92 10^6/uL (3.72-5.28); RED CELL DISTRIBUTION WIDTH 14.4 % (11.5-14.0); SEGMENTED NEUTROPHILS % (AUTO) 61.7 % (42-78); TOTAL CELLS COUNTED % (AUTO) 100 %; WHITE BLOOD COUNT 8.6 10^3/uL (4.0-10.5)
[2019-03-31 09:32] LABS: ALBUMIN 3.9 g/dL (3.5-5.0); ALKALINE PHOSPHATASE 86 U/L (38-126); ANION GAP 8 (5-19); ASPARTATE AMINO TRANSFERASE 20 U/L (14-36); BILIRUBIN,DIRECT 0.2 mg/dL (0.0-0.4); BILIRUBIN,TOTAL 0.5 mg/dL (0.2-1.3); BLOOD UREA NITROGEN 36 mg/dL (7-20); CALCIUM 9.9 mg/dL (8.4-10.2); CARBON DIOXIDE 35 mmol/L (22-30); CHLORIDE 99 mmol/L (98-107); GLUCOSE 122 mg/dL (75-110); POTASSIUM 3.3 mmol/L (3.6-5.0); TOTAL PROTEIN 7.1 g/dL (6.3-8.2)
[2019-03-31] MEDS ORDERED: PREDNISONE 20 MG TABLET PO SCH (10:00)
[2019-03-31] MEDS: HEPARIN SOD (PORCINE) 5,000 UNIT/ML 1 ML VIAL SUBCUT SCH ×2 (11:44→22:06)
[2019-03-31] MEDS: CEFTRIAXONE 1 GM/D5W RTU 1 GM/50 ML RTUPB IV SCH (11:45)
[2019-03-31] MEDS ORDERED: SIMETHICONE 80 MG TAB.CHEW PO PRN (14:17)
[2019-03-31] MEDS ORDERED: (PENDING PHARMACY ID) (Lactulose [Constulose 10 Gm/15 Ml Oral Solution] 15 ML) PO PRN (14:17)
[2019-03-31] MEDS ORDERED: PROMETHAZINE HCL 25 MG TABLET PO PRN (14:17)
[2019-03-31] MEDS ORDERED: (PENDING PHARMACY ID) (Diclofenac Sodium [Voltaren] 2 GM) TOP PRN (14:17)
[2019-03-31] MEDS ORDERED: MAGNESIUM HYDROXIDE SUSP 30 ML UDCUP PO PRN (14:17)
[2019-03-31] MEDS ORDERED: NITROGLYCERIN 0.4 MG/TAB 25 TAB/BOTTLE SL PRN (14:17)
[2019-03-31] MEDS ORDERED: BENZOCAINE/MENTHOL SORE THROAT LOZENGE BUCCAL PRN (14:17)
[2019-03-31] MEDS ORDERED: PHENOL/SODIUM PHENOLATE 100 SPRAY/177 ML BOTTLE MM PRN (14:17)
[2019-03-31] MEDS ORDERED: GUAIFENESIN/D-METHORPHAN (200-20 MG) SYRUP 10 ML PO PRN (14:17)
[2019-03-31] MEDS ORDERED: LIDOCAINE 5% (700 MG) TRANSDERMAL ADH..PATCH TP PRN (14:17)
[2019-03-31] MEDS ORDERED: ALBUTEROL SULFATE HFA (90 MCG/PUFF) 200 PUFF/8.5 GM MDI IH PRN (14:17)
[2019-03-31] MEDS ORDERED: FENTANYL 25 MCG/HR PATCH.TD72 TD SCH (14:30)
[2019-03-31] MEDS ORDERED: LACTULOSE SYRUP 20 GM/30 ML UDCUP PO PRN (14:49)
[2019-03-31] MEDS ORDERED: ERGOCALCIFEROL (VITAMIN D2) 50000 UNIT (1.25 MG) CAPSULE PO SCH (15:00)
[2019-03-31] MEDS: BACLOFEN 10 MG TABLET PO PRN ×2 (15:30→21:59)
[2019-03-31] MEDS: MAGNESIUM OXIDE 400 MG TABLET PO SCH (15:30)
[2019-03-31] MEDS: ACETAMINOPHEN 325 MG TABLET PO PRN (15:30)
[2019-03-31] MEDS ORDERED: IPRATROPIUM/ALBUTEROL 0.5-2.5 MG/3 ML AMPUL NEB PRN (15:34)
[2019-03-31] MEDS ORDERED: IPRATROPIUM/ALBUTEROL 0.5-2.5 MG/3 ML AMPUL NEB SCH (16:00)
[2019-03-31] MEDS: LEVALBUTEROL HCL NEB 0.63 MG/3 ML AMPUL NEB SCH ×2 (16:16→23:55)
[2019-03-31] MEDS: DOCUSATE SODIUM 100 MG CAPSULE PO SCH (17:40)
[2019-03-31] MEDS: POTASSIUM CHLORIDE 10 MEQ CAPSULE.ER PO SCH (17:46)
[2019-03-31] MEDS: FAMOTIDINE 20 MG TABLET PO SCH (17:46)
[2019-03-31] MEDS: FERROUS SULFATE 325 MG TABLET PO SCH (17:46)
[2019-03-31] MEDS: FUROSEMIDE 40 MG TABLET PO SCH (17:46)
[2019-03-31] MEDS: BENZONATATE 100 MG CAPSULE PO SCH (17:46)
[2019-03-31] MEDS: POLYMYXIN B SULFATE/TMP OPH SOLN 10 ML OS SCH ×2 (17:47→22:03)
[2019-03-31] MEDS: POLYVINYL ALCOHOL 1.4% OPH SOLN 15 ML OU SCH ×2 (17:47→22:03)
[2019-03-31] MEDS ORDERED: (PENDING PHARMACY ID) (Potassium Chloride [K-Tab Er] 20 MEQ) PO SCH (18:00)
[2019-03-31] MEDS ORDERED: [UNRECOGNIZED DRUG - OTHER] PO SCH (18:00)
[2019-03-31] MEDS ORDERED: [UNRECOGNIZED DRUG - OTHER] PO SCH (18:00)
[2019-03-31] MEDS ORDERED: (PENDING PHARMACY ID) (Ranitidine Hcl [Zantac 150 Mg Tablet] 150 MG) PO SCH (18:00)
[2019-03-31] MEDS ORDERED: TURMERIC PO SCH (18:00)
[2019-03-31] MEDS: BUPROPION HCL 75 MG TABLET PO SCH (21:56)
[2019-03-31] MEDS: OXYCODONE HCL IR 5 MG TABLET PO SCH (21:56)
[2019-03-31] MEDS: PREGABALIN 50 MG CAPSULE PO SCH (21:57)
[2019-03-31] MEDS: MELATONIN 5 MG TABLET PO SCH (21:57)
[2019-03-31] MEDS: GUAIFENESIN 600 MG TABLET.SA PO SCH (21:59)
[2019-03-31] MEDS: DILTIAZEM HCL 30 MG TABLET PO SCH (21:59)
[2019-03-31] MEDS: BUSPIRONE HCL 10 MG TABLET PO SCH (22:00)
[2019-03-31] MEDS ORDERED: (PENDING PHARMACY ID) (Buspirone Hcl [Buspar 5 Mg Tablet] 5 MG) PO SCH (22:00)
[2019-03-31] MEDS ORDERED: (PENDING PHARMACY ID) (Melatonin [Melatonin] 10 MG) PO SCH (22:00)
[2019-03-31] MEDS ORDERED: (PENDING PHARMACY ID) (Fluticasone/Salmeterol 1 PUFF) IH SCH (22:00)
[2019-03-31] MEDS: HYDRALAZINE HCL 25 MG TABLET PO SCH (22:00)
[2019-03-31] MEDS: FLUTICASONE NASAL SPRAY 50 MCG/SPRY 120 SPRAY/16 GM NASL SCH (22:02)
[2019-03-31] MEDS: SENNOSIDES/DOCUSATE 8.6-50 MG 1 EACH TABLET PO SCH (22:05)
[2019-04-01 03:45] LABS: C DIFFICILE GDH POSITIVE (NEGATIVE)
[2019-04-01] MEDS: DILTIAZEM HCL 30 MG TABLET PO SCH ×3 (05:10→22:31)
[2019-04-01] MEDS: PREGABALIN 50 MG CAPSULE PO SCH ×3 (05:10→22:26)
[2019-04-01] MEDS: HYDRALAZINE HCL 25 MG TABLET PO SCH ×3 (05:10→22:26)
[2019-04-01] MEDS: OXYCODONE HCL IR 5 MG TABLET PO SCH ×3 (05:10→22:28)
[2019-04-01] MEDS: LORATADINE 10 MG TABLET PO SCH (05:10)
[2019-04-01] MEDS: INSULIN LISPRO 100 UNIT/ML 3 ML VIAL SUBCUT SCH ×4 (07:41→22:51)
[2019-04-01] MEDS ORDERED: (PENDING PHARMACY ID) (Fexofenadine Hcl [Allegra] 60 MG) PO SCH (08:00)
[2019-04-01 09:20] LABS: ABSOLUTE BASOPHILS # (AUTO) 0.1 10^3/uL (0.0-0.2); ABSOLUTE EOSINOPHILS # (AUTO) 0.1 10^3/uL (0.0-0.6); ABSOLUTE LYMPHOCYTES (AUTO) 1.9 10^3/uL (0.5-4.7); ABSOLUTE MONOCYTES (AUTO) 0.8 10^3/uL (0.1-1.4); ABSOLUTE NEUT (AUTO) 6.1 10^3/uL (1.7-8.2); BASOPHILS % (AUTO) 0.6 % (0-2); EOSINOPHILS % (AUTO) 0.9 % (0-6); HEMATOCRIT 36.1 % (36.0-47.0); HEMOGLOBIN 12.1 g/dL (12.0-15.5); LYMPHOCYTES % (AUTO) 20.8 % (13-45); MEAN CORPUSCULAR HEMOGLOBIN 28.7 pg (27.0-33.4); MEAN CORPUSCULAR HGB CONC 33.4 g/dL (32.0-36.0); MEAN CORPUSCULAR VOLUME 86 fl (80-97); MONOCYTES % (AUTO) 9.4 % (3-13); PLATELET COUNT 254 10^3/uL (150-450); SEGMENTED NEUTROPHILS % (AUTO) 68.3 % (42-78); TOTAL CELLS COUNTED % (AUTO) 100 %; WHITE BLOOD COUNT 8.9 10^3/uL (4.0-10.5)
[2019-04-01 09:36] LABS: ALBUMIN 3.8 g/dL (3.5-5.0); ALKALINE PHOSPHATASE 92 U/L (38-126); ANION GAP 9 (5-19); ASPARTATE AMINO TRANSFERASE 22 U/L (14-36); BILIRUBIN,DIRECT 0.2 mg/dL (0.0-0.4); BILIRUBIN,TOTAL 0.6 mg/dL (0.2-1.3); BLOOD UREA NITROGEN 28 mg/dL (7-20); CALCIUM 10.2 mg/dL (8.4-10.2); CARBON DIOXIDE 33 mmol/L (22-30); CHLORIDE 96 mmol/L (98-107); GLUCOSE 195 mg/dL (75-110); POTASSIUM 3.2 mmol/L (3.6-5.0)
[2019-04-01] MEDS: LEVALBUTEROL HCL NEB 0.63 MG/3 ML AMPUL NEB SCH ×2 (09:45→16:18)
--- NOTE | 2019-04-01 09:47 | PDOC PROGRESS REPORT ---
Subjective Progress Note for:: 04/01/19 Subjective:: 72 year old female with a past medical history of atrial fibrillation, chronic diastolic heart failure, insulin dependent diabetes mellitus, CAD, history of DVT and PE, hyperlipidemia, hypertension, asthma, COPD, on indwelling Barton cath from hypotonic bladder recurrent UTI and history of UTI with ESBL who was brought in because of increasing weakness, cough, SOB and possible blocked Barton catheter from the correction was brought in due to reported confusion at home. Patient has multiple and recurrent UTIs with prior ESBL and CRE Klebsiella. She reportedly was more confused in the correction and was noted to be weaker in the past few days. Upon encounter, she appears lethargic but easily arousable. She is oriented x4 but does appear sleepy. She says she has been gradually progressive shortness of breath in the past week or so. She says that it has been associated with minimally productive cough in the past 2 to 3 days. She says she has been having chills at the correction but denies actual fever. She says she also has been feeling more weak in the past week. She thought that she had another urinary tract infection as she usually feels weak when she gets another UTI. 03/31/[id number]-ykgs-old female with history of atrial fibrillation on diltiazem at home not on anticoagulation, chronic diastolic heart failure, insulin-dependent diabetes mellitus, coronary artery disease, history of DVT and pulmonary embolism, hypertension hyperlipidemia asthma COPD indwelling Barton's catheter due to hypotonic bladder with recurrent UTI and history of ESBL came to the emergency room from [facility] with increasing weakness. Also comp laining of shortness of breath and blocked Barton's catheter at the time of admission. CT head was negative at the time of admission chest CT is negative for pneumonia. Patient is complaining of severe pains want her medications to be restarted. No acute events in the last 24 hours. T-max is 98.4. Blood pressure is 109/60. Blood cultures are pending. presently on ceftriaxone 1 g IV daily. Comfortably in the bed sleeping woke up when complaining of extreme pain. 04/01/[id number]-sepi-old female resident of [facility] with multiple medical problems admitted with altered mental status which was resolved. Blocked Barton's catheter issue was resolved. Chest CT is negative for pneum onia. Blood cultures are pending. Blood pressure today is 151/70. Receiving IV Rocephin prophylactic antibiotic therapy. Patient is requesting her home medications back on pressure already started. No acute events in the last 24 hours afebrile. Possibly she can be discharged back to correction tomorrow. Reason For Visit: ACUTE ENCEPHALOPATHY, POSSIBLE PNEUMONIA Physical Exam Vital Signs: Temp Pulse Resp BP Pulse Ox 98.4 F 100 20 151/73 H 100 03/30/19 23:45 04/01/19 07:00 04/01/19 00:09 03/31/19 15:55 04/01/19 00:09 Intake & Output 03/31/19 04/01/19 04/02/19 06:59 06:59 06:59 Intake Total 1130 Output Total 500 1200 Balance -500 -70 Weight 181.2 kg 190 kg General appearance: PRESENT: no acute distress, obese Head exam: PRESENT: atraumatic Eye exam: PRESENT: PERRLA Mouth exam: PRESENT: moist, tongue midline Teeth exam: PRESENT: poor dentation Neck exam: ABSENT: carotid bruit, JVD, lymphadenopathy, thyromegaly Respiratory exam: PRESENT: clear to auscultation elia. ABSENT: rales, rhonchi, wheezes Cardiovascular exam: PRESENT: RRR. ABSENT: diastolic murmur, rubs, systolic murmur GI/Abdominal exam: PRESENT: normal bowel sounds, soft. ABSENT: distended, guarding, mass, organolmegaly, rebound, tenderness Rectal exam: PRESENT: deferred Gentrourinary exam: PRESENT: indwelling catheter Extremities exam: PRESENT: full ROM. ABSENT: calf tenderness, clubbing, pedal edema Neurological exam: PRESENT: alert, awake, oriented to person, oriented to place, oriented to time, oriented to situation, CN II-XII grossly intact. ABSENT: motor sensory deficit Psychiatric exam: PRESENT: anxious Results Laboratory Results: 04/01/19 08:57 04/01/19 08:57 04/01/19 04/01/19 04/01/19 01:55 08:57 08:57 WBC 8.9 RBC 4.20 Hgb 12.1 Hct 36.1 MCV 86 MCH 28.7 MCHC 33.4 RDW 15.0 H Plt Count 254 Seg Neutrophils % 68.3 Sodium 137.9 Potassium 3.2 L Chloride 96 L Carbon Dioxide 33 H Anion Gap 9 BUN 28 H Creatinine 1.16 Est GFR ( Amer) 55 L Glucose 195 H Calcium 10.2 Magnesium 2.0 Total Bilirubin 0.6 AST 22 Alkaline Phosphatase 92 Total Protein 7.0 Albumin 3.8 Stl C.difficile Tox PCR POSITIVE 03/30/19 03/30/19 15:05 15:05 Creatine Kinase 58 CK-MB (CK-2) 1.47 Troponin I < 0.012 NT-Pro-B Natriuret Pep 182 Impressions: Chest X-Ray 03/30/19 14:01 IMPRESSION: Stable enlarged cardiac silhouette. Minimal linear left lingular opacities, likely atelectasis or scarring Head CT 03/30/19 16:11 IMPRESSION: MILD CHRONIC CHANGES OF ATROPHY AND MICROVASCULAR ISCHEMIA. NO ACUTE PROCESS. EVIDENCE OF ACUTE STROKE: NO. Chest CT 03/30/19 18:06 IMPRESSION: No acute disease. Assessment and Plan - Diagnosis (1) Acute encephalopathy Is this a current diagnosis for this admission?: Yes (2) COPD exacerbation Is this a current diagnosis for this admission?: Yes (3) Chronic diastolic CHF (congestive heart failure) Is this a current diagnosis for this admission?: No (4) Coronary artery disease Qualifiers: Coronary Disease-Associated Artery/Lesion type: [place] artery Is this a current diagnosis for this admission?: No (5) DM type 2 (diabetes mellitus, type 2) Is this a current diagnosis for this admission?: No (6) HTN (hypertension) Is this a current diagnosis for this admission?: No - Plan Summary Summary: (1) Acute encephalopathy Is this a current diagnosis for this admission?: Yes Plan: Upon encounter, she appears lethargic but easily arousable. She is oriented x4 but does appear sleepy. She says she has been gradually progressive shortness of breath in the past week or so. She says that it has been associated with minimally productive cough in the past [address] head is unremarkable. She initially presents with weakness for her recurrent UTIs. However urinalysis is not consistent with urinary tract infection. Will check an ABG. Chest x-ray shows small densities in the left lower lobe possibly scarring. She does have scarring on the left lower lobe on previous chest x- rays. Will pursue a chest CT to further evaluate for occult pneumonia as she does report of minimally productive cough in the past 2 days. Will check a TSH as well. She denies recent changes in her medications. We will have her home meds verified as she does have a history of polypharmacy. 03/31/[id number]-bfxs-old female admitted from the correction with increased weakness shortness of breath and blocked indwelling Barton's catheter. Also found to be confused and lethargic. Today alert awake oriented communicating well. ABG in the emergency room shows pH of 7.4/PCO2 53 PO2 86 and oxygen saturation of 96% on 3 L. She has history of COPD on 2 L oxygen at correction. Head was negative in my opinion altered mental status was resolved. Altered mental status/acute encephalopathy most likely secondary to polypharmacy. 04/01/[id number]-toto-old female admitted from the [facility] with generalized weakness and shortness of breath CT chest was negative for pneumonia. No acute events in the last 24 hours. Pulse oxes 100% on 2 L. Pre sently on IV ceftriaxone. Patient has history of COPD on 2 L oxygen at correction. Altered mental status resolved. Most likely secondary to COPD exacerbation. (2) COPD exacerbation Is this a current diagnosis for this admission?: Yes Plan: She has slightly decreased breath sounds on the bases with very minimal wheezing. However she does have a long-standing history of COPD and is on home O2. We will start her on steroids and breathing treatments. 03/31/2019-patient has history of COPD on 2 L oxygen at her correction. On examination today bilateral entry was decreased no wheezing no crepitations present. Pulse ox is 95% on 2 L this morning. Plan is to continue the present management. And is to discontinue prednisone from today. 2018-patient has history of COPD on 2 L oxygen correction chest CT was negative for pneumonia came in with shortness of breath with minimal wheezing and COPD exacerbation resolved in my opinion. Patient is presently on albuterol inhaler 2 puffs every 4 hours as needed, DuoNeb's 3 mL every 6 as needed, Xopenex 0.63 mg nebulizer every 8 hours. She is also on Spiriva 1 cap daily. (3) Chronic diastolic CHF (congestive heart failure) Is this a current diagnosis for this admission?: No Plan: 03/31/2019-patient has history of chronic diastolic heart failure. Not in fluid overload. Chest x-ray was negative for pulmonary edema no pedal edema is noticed. Pressure this morning is 109/60. 03/2019-patient has history of chronic diastolic heart failure. She is presently on metolazone 2.5 mg p.o. Saturday and furosemide 40 mg p.o. twice daily. Not in fluid overload. (4) Coronary artery disease Qualifiers: Coronary Disease-Associated Artery/Lesion type: [place] artery Is this a current diagnosis for this admission?: No Plan: 03/31/2019-patient has history of coronary artery disease denies any chest pains this morning. Home medications are still pending. Once the pharmacy confirmed the medications I will renew them. 03/2019-patient has history of coronary artery disease no complaints of chest pain during the hospital stay. (5) DM type 2 (diabetes mellitus, type 2) Is this a current diagnosis for this admission?: No Plan: 03/31/2019-patient has history of type 2 diabetes mellitus on insulin at the nurs ing home. Latest blood sugar is 160. Plan is to continue the insulin sliding scale before meals and at bedtime. 04/01/2019-patient latest blood sugar is 49. Hemoglobin A1c is pending. plan Is to continue insulin sliding scale before meals and at bedtime. (6) HTN (hypertension) Is this a current diagnosis for this admission?: No Plan: 03/31/2019-blood pressure today is 110/60. Stable. plan Is to closely monitor the blood pressures every shift. 03/2019-patient blood pressure today is 150/70. Stable. Plan is to closely monitor the blood pressures.
[2019-04-01] MEDS ORDERED: (PENDING PHARMACY ID) (Tolterodine Tartrate [Detrol] 2 MG) PO SCH (10:00)
[2019-04-01] MEDS ORDERED: (PENDING PHARMACY ID) (Roflumilast [Daliresp 500 Mcg Tablet] 500 MCG) PO SCH (10:00)
[2019-04-01] MEDS ORDERED: (PENDING PHARMACY ID) (Mirabegron [Myrbetriq] 25 MG) PO SCH (10:00)
[2019-04-01] MEDS ORDERED: BIOTIN 300 MCG PO SCH (10:00)
[2019-04-01] MEDS ORDERED: METOLAZONE 2.5 MG TABLET PO SCH (10:00)
[2019-04-01] MEDS ORDERED: INSULIN DETEMIR 32 UNIT SQ SCH (10:00)
[2019-04-01] MEDS: POLYETHYLENE GLYCOL 3350 POWDER 17 GM/1 PACKET PO SCH (10:21)
[2019-04-01] MEDS: DOCUSATE SODIUM 100 MG CAPSULE PO SCH ×2 (10:21→17:53)
[2019-04-01] MEDS: METOPROLOL SUCCINATE 25 MG TAB.SR.24H PO SCH (10:42)
[2019-04-01] MEDS: HEPARIN SOD (PORCINE) 5,000 UNIT/ML 1 ML VIAL SUBCUT SCH ×2 (10:42→22:35)
[2019-04-01] MEDS: FERROUS SULFATE 325 MG TABLET PO SCH ×2 (10:42→18:02)
[2019-04-01] MEDS: PREDNISONE 20 MG TABLET PO SCH (10:42)
[2019-04-01] MEDS: BUSPIRONE HCL 10 MG TABLET PO SCH ×2 (10:43→22:25)
[2019-04-01] MEDS: BENZONATATE 100 MG CAPSULE PO SCH ×3 (10:43→18:02)
[2019-04-01] MEDS: FAMOTIDINE 20 MG TABLET PO SCH ×2 (10:43→18:02)
[2019-04-01] MEDS: GUAIFENESIN 600 MG TABLET.SA PO SCH ×2 (10:43→22:28)
[2019-04-01] MEDS: TOLTERODINE TARTRATE 1 MG TABLET PO SCH (10:43)
[2019-04-01] MEDS: FLUTICASONE/VILANTEROL 200-25 MCG/DOSE IH SCH (10:44)
[2019-04-01] MEDS: POTASSIUM CHLORIDE 10 MEQ CAPSULE.ER PO SCH ×2 (10:44→18:02)
[2019-04-01] MEDS: RANOLAZINE 500 MG TAB.SR.12H PO SCH ×2 (10:44→22:26)
[2019-04-01] MEDS: FUROSEMIDE 40 MG TABLET PO SCH ×2 (10:44→18:02)
[2019-04-01] MEDS: DULOXETINE HCL 30 MG CAPSULE.DR PO SCH (10:44)
[2019-04-01] MEDS: FLUTICASONE NASAL SPRAY 50 MCG/SPRY 120 SPRAY/16 GM NASL SCH ×2 (10:46→22:40)
[2019-04-01] MEDS: ROFLUMILAST 500 MCG TABLET PO SCH (10:46)
[2019-04-01] MEDS: TIOTROPIUM BROMIDE DPI 5 CAP/KIT (18 MCG/CAP) IH SCH (10:47)
[2019-04-01] MEDS: CEFTRIAXONE 1 GM/D5W RTU 1 GM/50 ML RTUPB IV SCH (10:49)
[2019-04-01] MEDS: POLYMYXIN B SULFATE/TMP OPH SOLN 10 ML OS SCH ×4 (10:49→22:42)
[2019-04-01] MEDS: INSULIN GLARGINE,HUM.REC.ANLOG 1,000 UNIT/10 ML VIAL SUBCUT SCH (10:53)
[2019-04-01] MEDS: POLYVINYL ALCOHOL 1.4% OPH SOLN 15 ML OU SCH ×4 (10:53→22:42)
[2019-04-01] MEDS: BUPROPION HCL 75 MG TABLET PO SCH ×2 (10:54→22:32)
[2019-04-01] MEDS ORDERED: ACETYLCYSTEINE 10% NEB 400 MG/4 ML VIAL NEB SCH (14:00)
[2019-04-01] MEDS: ACETYLCYSTEINE 10% NEB 400 MG/4 ML VIAL NEB SCH (16:18)
[2019-04-01] MEDS: MELATONIN 5 MG TABLET PO SCH (22:25)
[2019-04-01] MEDS: SENNOSIDES/DOCUSATE 8.6-50 MG 1 EACH TABLET PO SCH (22:28)
[2019-04-02] MEDS: ACETYLCYSTEINE 10% NEB 400 MG/4 ML VIAL NEB SCH ×3 (00:28→17:05)
[2019-04-02] MEDS: LEVALBUTEROL HCL NEB 0.63 MG/3 ML AMPUL NEB SCH ×2 (00:28→09:30)
[2019-04-02 04:55] LABS: ABSOLUTE EOSINOPHILS # (AUTO) 0.1 10^3/uL (0.0-0.6); ABSOLUTE LYMPHOCYTES (AUTO) 2.6 10^3/uL (0.5-4.7); ABSOLUTE NEUT (AUTO) 5.8 10^3/uL (1.7-8.2); BASOPHILS % (AUTO) 0.4 % (0-2); EOSINOPHILS % (AUTO) 1.2 % (0-6); HEMATOCRIT 34.7 % (36.0-47.0); HEMOGLOBIN 11.7 g/dL (12.0-15.5); LYMPHOCYTES % (AUTO) 26.9 % (13-45); MEAN CORPUSCULAR HGB CONC 33.7 g/dL (32.0-36.0); MEAN CORPUSCULAR VOLUME 86 fl (80-97); PLATELET COUNT 272 10^3/uL (150-450); RED BLOOD COUNT 4.05 10^6/uL (3.72-5.28); RED CELL DISTRIBUTION WIDTH 14.9 % (11.5-14.0); SEGMENTED NEUTROPHILS % (AUTO) 61.5 % (42-78); TOTAL CELLS COUNTED % (AUTO) 100 %; WHITE BLOOD COUNT 9.5 10^3/uL (4.0-10.5)
[2019-04-02 05:17] LABS: ALBUMIN 3.6 g/dL (3.5-5.0); ALKALINE PHOSPHATASE 82 U/L (38-126); ANION GAP 6 (5-19); ASPARTATE AMINO TRANSFERASE 21 U/L (14-36); BILIRUBIN,DIRECT 0.2 mg/dL (0.0-0.4); BILIRUBIN,TOTAL 0.5 mg/dL (0.2-1.3); BLOOD UREA NITROGEN 33 mg/dL (7-20); CARBON DIOXIDE 36 mmol/L (22-30); CHLORIDE 96 mmol/L (98-107); GLUCOSE 114 mg/dL (75-110); POTASSIUM 3.7 mmol/L (3.6-5.0); TOTAL PROTEIN 6.8 g/dL (6.3-8.2)
[2019-04-02] MEDS: LORATADINE 10 MG TABLET PO SCH (05:36)
[2019-04-02] MEDS: OXYCODONE HCL IR 5 MG TABLET PO SCH ×2 (05:36→13:33)
[2019-04-02] MEDS: HYDRALAZINE HCL 25 MG TABLET PO SCH ×2 (05:37→13:34)
[2019-04-02] MEDS: PREGABALIN 50 MG CAPSULE PO SCH ×2 (05:37→13:34)
[2019-04-02] MEDS: DILTIAZEM HCL 30 MG TABLET PO SCH ×2 (05:39→13:34)
[2019-04-02] MEDS: BACLOFEN 10 MG TABLET PO PRN ×2 (05:41→12:11)
[2019-04-02] MEDS: INSULIN LISPRO 100 UNIT/ML 3 ML VIAL SUBCUT SCH ×3 (09:02→15:28)
[2019-04-02] MEDS: POLYETHYLENE GLYCOL 3350 POWDER 17 GM/1 PACKET PO SCH (09:46)
[2019-04-02] MEDS: FLUTICASONE/VILANTEROL 200-25 MCG/DOSE IH SCH (09:47)
[2019-04-02] MEDS: GUAIFENESIN 600 MG TABLET.SA PO SCH (09:47)
[2019-04-02] MEDS: DOCUSATE SODIUM 100 MG CAPSULE PO SCH (09:47)
[2019-04-02] MEDS: FERROUS SULFATE 325 MG TABLET PO SCH (09:47)
[2019-04-02] MEDS: BENZONATATE 100 MG CAPSULE PO SCH ×2 (09:47→13:33)
[2019-04-02] MEDS: ROFLUMILAST 500 MCG TABLET PO SCH (09:47)
[2019-04-02] MEDS: RANOLAZINE 500 MG TAB.SR.12H PO SCH (09:47)
[2019-04-02] MEDS: METOPROLOL SUCCINATE 25 MG TAB.SR.24H PO SCH (09:47)
[2019-04-02] MEDS: TOLTERODINE TARTRATE 1 MG TABLET PO SCH (09:48)
[2019-04-02] MEDS: POTASSIUM CHLORIDE 10 MEQ CAPSULE.ER PO SCH (09:48)
[2019-04-02] MEDS: DULOXETINE HCL 30 MG CAPSULE.DR PO SCH (09:48)
[2019-04-02] MEDS: FUROSEMIDE 40 MG TABLET PO SCH (09:48)
[2019-04-02] MEDS: BUPROPION HCL 75 MG TABLET PO SCH (09:48)
[2019-04-02] MEDS: PREDNISONE 20 MG TABLET PO SCH (09:48)
[2019-04-02] MEDS: BUSPIRONE HCL 10 MG TABLET PO SCH (09:49)
[2019-04-02] MEDS: FAMOTIDINE 20 MG TABLET PO SCH (09:49)
[2019-04-02] MEDS: TIOTROPIUM BROMIDE DPI 5 CAP/KIT (18 MCG/CAP) IH SCH (09:49)
[2019-04-02] MEDS: INSULIN GLARGINE,HUM.REC.ANLOG 1,000 UNIT/10 ML VIAL SUBCUT SCH (09:50)
[2019-04-02] MEDS: HEPARIN SOD (PORCINE) 5,000 UNIT/ML 1 ML VIAL SUBCUT SCH (09:51)
[2019-04-02] MEDS: FLUTICASONE NASAL SPRAY 50 MCG/SPRY 120 SPRAY/16 GM NASL SCH (09:51)
[2019-04-02] MEDS: POLYMYXIN B SULFATE/TMP OPH SOLN 10 ML OS SCH ×2 (09:52→13:35)
[2019-04-02] MEDS: CEFTRIAXONE 1 GM/D5W RTU 1 GM/50 ML RTUPB IV SCH (09:59)
[2019-04-02] MEDS: POLYVINYL ALCOHOL 1.4% OPH SOLN 15 ML OU SCH ×2 (10:00→13:35)
[2019-04-02] MEDS: ACETAMINOPHEN 325 MG TABLET PO PRN (12:11)
--- NOTE | 2019-04-02 13:04 | PDOC TRANSFER SUMMARY ---
Impression - Admit/DC Date/PCP Admission Date/Primary Care Provider: 03/30/19 19:09 KARTHIKEYAN HERNANDEZ MD Discharge Date: 04/02/19 - Discharge Diagnosis (1) Acute encephalopathy Is this a current diagnosis for this admission?: Yes (2) COPD exacerbation Is this a current diagnosis for this admission?: Yes (3) Chronic diastolic CHF (congestive heart failure) Is this a current diagnosis for this admission?: No (4) Coronary artery disease Is this a current diagnosis for this admission?: No (5) DM type 2 (diabetes mellitus, type 2) Is this a current diagnosis for this admission?: No (6) HTN (hypertension) Is this a current diagnosis for this admission?: No - Assessment Summary: (1) Acute encephalopathy Is this a current diagnosis for this admission?: Yes Plan: Upon encounter, she appears lethargic but easily arousable. She is oriented x4 but does appear sleepy. She says she has been gradually progressive shortness of breath in the past week or so. She says that it has been associated with minimally productive cough in the past [address] head is unremarkable. She initially presents with weakness for her recurrent UTIs. However urinalysis is not consistent with urinary tract infection. Will check an ABG. Chest x-ray shows small densities in the left lower lobe possibly scarring. She does have scarring on the left lower lobe on previous chest x- rays. Will pursue a chest CT to further evaluate for occult pneumonia as she does report of minimally productive cough in the past 2 days. Will check a TSH as well. She denies recent changes in her medications. We will have her home meds verified as she does have a history of polypharmacy. 03/31/[id number]-old female admitted from the intermediate with increased weakness shortness of breath and blocked indwelling Barton's catheter. Also found to be confused and lethargic. Today alert awake oriented communicating well. ABG in the emergency room shows pH of 7.4/PCO2 53 PO2 86 and oxygen saturation of 96% on 3 L. She has history of COPD on 2 L oxygen at intermediate. Head was negative in my opinion altered mental status was resolved. Altered mental status/acute encephalopathy most likely secondary to polypharmacy. 04/01/[id number]-njup-old female admitted from the [facility] with generalized weakness and shortness of breath CT chest was negative for pneumonia. No acute events in the last 24 hours. Pulse oxes 100% on 2 L. Presently on IV ceftriaxone. Patient has history of COPD on 2 L oxygen at [facility]. Altered mental status resolved. Most likely secondary to COPD exacerbation. 04/02/2019-patient is comfortable in the bed communicating well acute metabolic encephalopathy is resolved. (2) COPD exacerbation Is this a current diagnosis for this admission?: Yes Plan: She has slightly decreased breath sounds on the bases with very minimal wheezing. However she does have a long-standing history of COPD and is on home O2. We will start her on steroids and breathing treatments. 03/31/2019-patient has history of COPD on 2 L oxygen at her intermediate. On examination today bilateral entry was decreased no wheezing no crepitations present. Pulse ox is 95% on 2 L this morning. Plan is to continue the present management. And is to discontinue prednisone from today. 2018-patient has history of COPD on 2 L oxygen intermediate chest CT was negative for pneumonia came in with shortness of breath with minimal wheezing and COPD exacerbation resolved in my opinion. Patient is presently on albuterol inhaler 2 puffs every 4 hours as needed, DuoNeb's 3 mL every 6 as needed, Xopenex 0.63 mg nebulizer every 8 hours. She is also on Spiriva 1 cap daily. 04/02/2019-patient has history of COPD on 2 L oxygen at home. Pulse ox today is back to baseline. Pulse ox is 98% on 2 L. (3) Chronic diastolic CHF (congestive heart failure) Is this a current diagnosis for this admission?: No Plan: 03/31/2019-patient has history of chronic diastolic heart failure. Not in fluid overload. Chest x-ray was negative for pulmonary edema no pedal edema is noticed. Pressure this morning is 109/60. 03/2019-patient has history of chronic diastolic heart failure. She is presently on metolazone 2.5 mg p.o. Saturday and furosemide 40 mg p.o. twice daily. Not in fluid overload. 04/02/2019-patient has history of chronic diastolic heart failure patient advised to continue Lasix and metolazone at intermediate. (4) Coronary artery disease Qualifiers: Coronary Disease-Associated Artery/Lesion type: ramona artery Is this a current diagnosis for this admission?: No Plan: 03/31/2019-patient has history of coronary artery disease denies any chest pains this morning. Home medications are still pending. Once the pharmacy confirmed the medications I will renew them. 03/2019-patient has history of coronary artery disease no complaints of chest pain during the hospital stay. (5) DM type 2 (diabetes mellitus, type 2) Is this a current diagnosis for this admission?: No Plan: 03/31/2019-patient has history of type 2 diabetes mellitus on insulin at the intermediate. Latest blood sugar is 160. Plan is to continue the insulin sliding scale before meals and at bedtime. 04/01/2019-patient latest blood sugar is 149. Hemoglobin A1c is pending. plan Is to continue insulin sliding scale before meals and at bedtime. 04/02/2019-patient blood sugar today is 132. Stable. Patient is advised to continue the present medication at home. (6) HTN (hypertension) Is this a current diagnosis for this admission?: No Plan: 03/31/2019-blood pressure today is 110/60. Stable. plan Is to closely monitor the blood pressures every shift. 03/2019-patient blood pressure today is 150/70. Stable. Plan is to closely monitor the blood pressures. 04/02/2019-patient blood pressure today is 130/65. Stable. Plan to resume her intermediate medications upon discharge. - Additional Information Resuscitation Status: Full Code Discharge Diet: Diabetic Discharge Activity: Activity As Tolerated Referrals: [facility] [Outside] Home Medications: Acetaminophen [Tylenol] 650 mg PO Q4HP PRN 01/02/19 Albuterol Sulfate [Proair HFA Inhalation Aerosol 8.5 gm MDI] 2 puff IH Q4HP PRN 01/02/19 Baclofen [Baclofen 10 mg Tablet] 10 mg PO Q6HP PRN 01/02/19 Benzocaine/Menthol [Chloraseptic Sore Throat Lozenge] 1 each BUCCAL Q1HP PRN 01/02/19 Benzonatate [Tessalon Perles 100 mg Capsule] 200 mg PO TID 01/02/19 Budesonide [Pulmicort] 0.25 mg IH RTBID 01/02/19 Buspirone HCl [Buspar 5 mg Tablet] 5 mg PO Q12 01/02/19 Diltiazem HCl [Cardizem 30 mg Tablet] 30 mg PO Q8 01/02/19 Docusate Sodium [Colace 100 mg Capsule] 100 mg PO BID 01/02/19 Ergocalciferol (Vitamin D2) [Drisdol 50,000 unit (1.25MG) Capsule] 50,000 unit PO [id number] 01/02/19 Akila Benavides/Linoleic/Gamoleni [Evening Benavides 1,000 mg Sftg] 500 mg PO TID 01/02/19 Fentanyl [Duragesic 25 mcg/hr Transdermal Patch] 1 each TD Q3D 01/02/19 Ferrous Sulfate [Feosol 325 mg Tablet] 325 mg PO BID 01/02/19 Fluticasone/Salmeterol [Advair 500-50 Diskus 14 Dose/Diskus] 1 puff IH Q12 01/02/19 Furosemide [Lasix 40 mg Tablet] 40 mg PO BID 01/02/19 Guaifenesin [Guaifenesin ER] 1,200 mg PO Q12 01/02/19 Guaifenesin/D-Methorphan Hb [Robitussin Dm S-F Cough Syrup] 10 ml PO Q4HP PRN 01/02/19 Hydralazine HCl [Apresoline 25 mg Tablet] 25 mg PO Q8 01/02/19 Insulin Detemir [Levemir] 32 unit SQ DAILY 01/02/19 Insulin Lispro [Humalog Insulin (Lispro) 100 unit/mL] 0 unit SUBCUT .SLD SCALE 01/02/19 Ipratropium/Albuterol Sulfate [Duoneb 3 ml Ampul] 3 ml NEB [id number] 01/02/19 Lactulose [Constulose 10 gm/15 mL Oral Solution] 15 ml PO BIDP PRN 01/02/19 Levalbuterol HCl [Xopenex Neb 0.63 mg/3 ml Ampul] 0.63 mg NEB RTQ8 01/02/19 Lidocaine [Lidoderm 5% (700 mg) Transdermal Patch] 2 patch TP DAILYP PRN 01/02/19 Magnesium Hydroxide [Milk of Magnesia 30 ml Udcup] 30 ml PO DAILYP PRN 01/02/19 Magnesium Oxide [Mag-Ox 400 mg Tablet] 400 mg PO Q2D 01/02/19 Melatonin 10 mg PO QHS 01/02/19 Metoprolol Succinate [Toprol Xl] 25 mg PO DAILY 01/02/19 Mirabegron [Myrbetriq] 25 mg PO DAILY 01/02/19 Nitroglycerin [Nitrostat 0.4 mg (1/150 Gr) Tabs 25/Bottle] 0.4 mg SL Q5MP PRN 01/02/19 Olopatadine HCl [Pataday] 1 drop OU DAILY 01/02/19 Phenol/Sodium Phenolate [Chloraseptic Sore Throat [place] 177 ml] 1 sprays MM Q1HP PRN 01/02/19 Polymyxin B Sulf/Trimethoprim [Polytrim Eye Drops] 1 drop OS QID 01/02/19 Prednisone [Deltasone] 20 mg PO DAILY 01/02/19 Promethazine HCl [Phenergan 25 mg Tablet] 12.5 mg PO Q4HP PRN 01/02/19 Ranitidine HCl [Zantac 150 mg Tablet] 150 mg PO BID 01/02/19 Ranolazine [Ranexa 500 mg Tab.sr] 500 mg PO Q12 01/02/19 Roflumilast [Daliresp 500 mcg Tablet] 500 mcg PO DAILY 01/02/19 Sennosides/Docusate 8.6-50 mg [Senna Plus Tablet] 1 tab PO QHS 01/02/19 Simethicone [Mylicon 80 mg Chewable Tablet] 80 mg PO Q6HP PRN 01/02/19 Tiotropium [place] [Spiriva Handihaler 5 Cap/Kit (18 Mcg/Cap)] 1 cap IH DAILY 01/02/19 Tolterodine Tartrate [Detrol] 2 mg PO DAILY 01/02/19 Turmeric/Turmeric Root Extract [Turmeric 500 mg Capsule] 1,000 mg PO BID 01/02/19 Bupropion HCl [Wellbutrin 75 mg Tablet] 75 mg PO Q12 #60 tablet 01/09/19 Duloxetine HCl [Cymbalta 30 mg Capsule.] 60 mg PO DAILY #60 capsule. 01/09/19 Acetylcysteine [Mucomist 10% Neb 400 mg/4 mL Vial] 2 ml IH Q6 03/31/19 Biotin 300 mcg PO DAILY 03/31/19 Diclofenac Sodium [Voltaren] 2 gm TP Q8HP PRN 03/31/19 Fexofenadine HCl [Shaniqua] 60 mg PO QAM 03/31/19 Fluticasone Propionate [Flonase Nasal [place] 50 Mcg/[place] 16 gm] 2 sprays NASL Q12 03/31/19 Metolazone [Zaroxolyn 2.5 mg Tablet] 2.5 mg PO MOWEFR@1000 03/31/19 Polyethylene Glycol 3350 [Miralax Powder 17 gm/Packet] 17 gm PO DAILY 03/31/19 Polyvinyl Alcohol [Liquitears 1.4% Ophth Soln 15 ml] 1 drop OU QID 03/31/19 Potassium Chloride [K-Tab ER] 20 meq PO BID 03/31/19 Pregabalin [Lyrica 50 mg Capsule] 50 mg PO Q8 03/31/19 Fluticasone Propionate [Flonase Nasal [place] 50 Mcg/[place] 16 gm] 2 spray NASL Q12 spray.pump 04/02/19 Simethicone [Mylicon 80 mg Chewable Tablet] 80 mg PO Q6HP PRN tab.chew 04/02/19 Tiotropium [place] [Spiriva Handihaler 5 Cap/Kit (18 Mcg/Cap)] 1 cap IH DAILY kit 04/02/19 History of Present Illiness History of Present Illness: PORSHA WALDRON is a 73 year old female 72 year old female with a past medical history of atrial fibrillation, chronic diastolic heart failure, insulin dependent diabetes mellitus, CAD, history of DVT and PE, hyperlipidemia, hypertension, asthma, COPD, on indwelling Barton cath from hypotonic bladder recurrent UTI and history of UTI with ESBL who was brought in because of increasing weakness, cough, SOB and possible blocked Barton catheter from the intermediate was brought in due to reported confusion at home. Hospital Course Hospital Course: 72 year old female with a past medical history of atrial fibrillation, chronic diastolic heart failure, insulin dependent diabetes mellitus, CAD, history of DVT and PE, hyperlipidemia, hypertension, asthma, COPD, on indwelling Barton cath from hypotonic bladder recurrent UTI and history of UTI with ESBL who was brought in because of increasing weakness, cough, SOB and possible blocked Barton catheter from the intermediate was brought in due to reported confusion at home. Patient has multiple and recurrent UTIs with prior ESBL and CRE Klebsiella. She reportedly was more confused in the intermediate and was noted to be weaker in the past few days. Upon encounter, she appears lethargic but easily arousable. She is oriented x4 but does appear sleepy. She says she has been gradually progressive shortness of breath in the past week or so. She says that it has been associated with minimally productive cough in the past 2 to 3 days. She says she has been having chills at the intermediate but denies actual fever. She says she also has been feeling more weak in the past week. She thought that she had another urinary tract infection as she usually feels weak when she gets another UTI. 03/31/[id number]-ggfh-old female with history of atrial fibrillation on diltiazem at home not on anticoagulation, chronic diastolic heart failure, insulin-dependent diabetes mellitus, coronary artery disease, history of DVT and pulmonary embolism, hypertension hyperlipidemia asthma COPD indwelling Barton's catheter due to hypotonic bladder with recurrent UTI and history of ESBL came to the emergency room from [facility] with increasing weakness. Also complaining of shortness of breath and blocked Barton's catheter at the time of admission. CT head was negative at the time of admission chest CT is negative for pneumonia. Patient is complaining of severe pains want her medications to be restarted. No acute events in the last 24 hours. T-max is 98.4. Blood pressure is 109/60. Blood cultures are pending. presently on ceftriaxone 1 g IV daily. Comfortably in the bed sleeping woke up when complaining of extreme pain. 04/01/[id number]-czjx-old female resident of [facility] with multiple medical problems admitted with altered mental status which was resolved. Blocked Braton's catheter issue was resolved. Chest CT is negative for pneumonia. Blood cultures are pending. Blood pressure today is 151/70. Receiving IV Rocephin prophylactic antibiotic therapy. Patient is requesting her home medications back on pressure already started. No acute events in the last 24 hours afebrile. Possibly she can be discharged back to intermediate tomorrow. 04/02/2019-no acute events in the last 24 hours. Afebrile. Patient is going back to intermediate today. Physical Exam Vital Signs: Temp Pulse Resp BP Pulse Ox 98.1 F 63 18 131/65 H 99 04/02/19 03:00 04/02/19 09:30 04/02/19 09:30 04/02/19 03:00 04/02/19 09:30 Intake & Output 04/01/19 04/02/19 04/03/19 06:59 06:59 06:59 Intake Total 1130 1099 50 Output Total 1200 850 Balance -70 249 50 Weight 190 kg 187.2 kg General appearance: PRESENT: no acute distress, cooperative, obese Head exam: PRESENT: atraumatic Eye exam: PRESENT: PERRLA Mouth exam: PRESENT: moist, tongue midline Teeth exam: PRESENT: poor dentation Neck exam: ABSENT: carotid bruit, JVD, lymphadenopathy, thyromegaly Respiratory exam: PRESENT: decreased breath sounds Cardiovascular exam: PRESENT: RRR. ABSENT: diastolic murmur, rubs, systolic murmur GI/Abdominal exam: PRESENT: normal bowel sounds, soft. ABSENT: distended, guarding, mass, organolmegaly, rebound, tenderness Rectal exam: PRESENT: deferred Neurological exam: PRESENT: alert, awake, oriented to person, oriented to place, oriented to time, oriented to situation, CN II-XII grossly intact. ABSENT: motor sensory deficit Psychiatric exam: PRESENT: appropriate affect, normal mood. ABSENT: homicidal ideation, suicidal ideation Results Laboratory Results: WBC 9.5 10^3/uL (4.0-10.5) 04/02/19 04:39 RBC 4.05 10^6/uL (3.72-5.28) 04/02/19 04:39 Hgb 11.7 g/dL (12.0-15.5) L 04/02/19 04:39 Hct 34.7 % (36.0-47.0) L 04/02/19 04:39 MCV 86 fl (80-97) 04/02/19 04:39 MCH 29.0 pg (27.0-33.4) 04/02/19 04:39 MCHC 33.7 g/dL (32.0-36.0) 04/02/19 04:39 RDW 14.9 % (11.5-14.0) H 04/02/19 04:39 Plt Count 272 10^3/uL (150-450) 04/02/19 04:39 Lymph % (Auto) 26.9 % (13-45) 04/02/19 04:39 [place] % (Auto) 10.0 % (3-13) 04/02/19 04:39 Eos % (Auto) 1.2 % (0-6) 04/02/19 04:39 Baso % (Auto) 0.4 % (0-2) 04/02/19 04:39 Absolute Neuts (auto) 5.8 10^3/uL (1.7-8.2) 04/02/19 04:39 Absolute Lymphs (auto) 2.6 10^3/uL (0.5-4.7) 04/02/19 04:39 Absolute Monos (auto) 1.0 10^3/uL (0.1-1.4) 04/02/19 04:39 Absolute Eos (auto) 0.1 10^3/uL (0.0-0.6) 04/02/19 04:39 Absolute Basos (auto) 0.0 10^3/uL (0.0-0.2) 04/02/19 04:39 Seg Neutrophils % 61.5 % (42-78) 04/02/19 04:39 Carbonic Acid 1.61 mmol/L (1.05-1.35) H 03/30/19 18:40 HCO3/H2CO3 Ratio 19:1 03/30/19 18:40 ABG pH 7.40 (7.35-7.45) 03/30/19 18:40 ABG pCO2 53.4 mmHg (35-45) H 03/30/19 18:40 ABG pO2 86.7 mmHg (80-100) 03/30/19 18:40 ABG HCO3 32.1 mmol/L (20-24) H 03/30/19 18:40 ABG Total CO2 33.8 mmol/L (21-25) H 03/30/19 18:40 ABG O2 Saturation 96.4 % (94-98) 03/30/19 18:40 ABG Base Excess 6.1 mmol/L 03/30/19 18:40 FiO2 3L 03/30/19 18:40 Sodium 138.2 mmol/L (137-145) 04/02/19 04:39 Potassium 3.7 mmol/L (3.6-5.0) 04/02/19 04:39 Chloride 96 mmol/L (98-107) L 04/02/19 04:39 Carbon Dioxide 36 mmol/L (22-30) H 04/02/19 04:39 Anion Gap 6 (5-19) 04/02/19 04:39 BUN 33 mg/dL (7-20) H 04/02/19 04:39 Creatinine 1.79 mg/dL (0.52-1.25) H 04/02/19 04:39 Est GFR ( Amer) 33 (>60) L 04/02/19 04:39 Est GFR (MDRD) Non-Af 28 (>60) L 04/02/19 04:39 Glucose 114 mg/dL (75-110) H 04/02/19 04:39 POC Glucose 130 mg/dL (70-110) H 04/02/19 11:41 Lactic Acid 1.1 mmol/L (0.7-2.1) 03/30/19 16:23 Calcium 10.0 mg/dL (8.4-10.2) 04/02/19 04:39 Magnesium 2.0 mg/dL (1.6-2.3) 04/01/19 08:57 Total Bilirubin 0.5 mg/dL (0.2-1.3) 04/02/19 04:39 Direct Bilirubin 0.2 mg/dL (0.0-0.4) 04/02/19 04:39 Neonat Total Bilirubin Not Reportable 04/02/19 04:39 Neonat Direct Bilirubin Not Reportable 04/02/19 04:39 Neonat Indirect Bili Not Reportable 04/02/19 04:39 AST 21 U/L (14-36) 04/02/19 04:39 ALT 14 U/L (<35) 04/02/19 04:39 Alkaline Phosphatase 82 U/L (38-126) 04/02/19 04:39 Creatine Kinase 58 U/L (30-135) 03/30/19 15:05 CK-MB (CK-2) 1.47 ng/mL (<4.55) 03/30/19 15:05 Troponin I < 0.012 ng/mL 03/30/19 15:05 NT-Pro-B Natriuret Pep 182 pg/mL (<450) 03/30/19 15:05 Total Protein 6.8 g/dL (6.3-8.2) 04/02/19 04:39 Albumin 3.6 g/dL (3.5-5.0) 04/02/19 04:39 TSH 0.82 uIU/mL (0.47-4.68) 03/30/19 15:05 Urine Color COLORLESS 03/30/19 15:05 Urine Appearance CLEAR 03/30/19 15:05 Urine pH 7.0 (5.0-9.0) 03/30/19 15:05 Ur Specific [place] 1.001 03/30/19 15:05 Urine Protein NEGATIVE mg/dL (NEGATIVE) 03/30/19 15:05 Urine Glucose (UA) NEGATIVE mg/dL (NEGATIVE) 03/30/19 15:05 Urine Ketones NEGATIVE mg/dL (NEGATIVE) 03/30/19 15:05 Urine Blood NEGATIVE (NEGATIVE) 03/30/19 15:05 Urine Nitrite POSITIVE (NEGATIVE) H 03/30/19 15:05 Urine Bilirubin NEGATIVE (NEGATIVE) 03/30/19 15:05 Urine Urobilinogen NEGATIVE mg/dL (<2.0) 03/30/19 15:05 Ur Leukocyte Esterase NEGATIVE (NEGATIVE) 03/30/19 15:05 Urine WBC (Auto) 0 /HPF 03/30/19 15:05 Urine RBC (Auto) 0 /HPF 03/30/19 15:05 Urine Ascorbic Acid NEGATIVE (NEGATIVE) 03/30/19 15:05 Stl C. Difficile GDH Ag POSITIVE (NEGATIVE) 04/01/19 01:55 Stl C.difficile Tox A&B NEGATIVE (NEGATIVE) 04/01/19 01:55 Stl C.difficile Tox PCR POSITIVE (NEGATIVE) 04/01/19 01:55 03/30/19 15:05 CK-MB (CK-2) 1.47 Troponin I < 0.012 NT-Pro-B Natriuret Pep 182 Impressions: Chest X-Ray 03/30/19 14:01 IMPRESSION: Stable enlarged cardiac silhouette. Minimal linear left lingular opacities, likely atelectasis or scarring Head CT 03/30/19 16:11 IMPRESSION: MILD CHRONIC CHANGES OF ATROPHY AND MICROVASCULAR ISCHEMIA. NO ACUTE PROCESS. EVIDENCE OF ACUTE STROKE: NO. Chest CT 03/30/19 18:06 IMPRESSION: No acute disease. Plan Plan of Treatment: She is going back to intermediate today. Time Spent: Greater than 30 Minutes Stroke Is this a Stroke Patient?: No Acute Heart Failure - Is this a Heart Failure Patient?: No
[2019-04-02] MEDS: MAGNESIUM OXIDE 400 MG TABLET PO SCH (13:34)
[2019-04-02 13:42] VITALS: BP 121/59
== END 2019-04-02 16:03 ==
LOC: ER 13:05 → EH 19:09 → 4S 22:00
PROVIDERS: ADMIT Internal Medicine; ATTEND Internal Medicine
DX: G93.40 Encephalopathy, unspecified (principal); J44.1 Chronic obstructive pulmonary disease with (acute) exacerbation; I11.0 Hypertensive heart disease with heart failure; I50.32 Chronic diastolic (congestive) heart failure; I25.10 Atherosclerotic heart disease of native coronary artery without angina pectoris; I48.91 Unspecified atrial fibrillation; E11.9 Type 2 diabetes mellitus without complications; N31.2 Flaccid neuropathic bladder, not elsewhere classified; R53.1 Weakness; R68.83 Chills (without fever); G47.30 Sleep apnea, unspecified; F32.9 Major depressive disorder, single episode, unspecified; M19.90 Unspecified osteoarthritis, unspecified site; E66.9 Obesity, unspecified; R45.1 Restlessness and agitation; J98.4 Other disorders of lung; R55 Syncope and collapse; I25.2 Old myocardial infarction; Z99.81 Dependence on supplemental oxygen; Z96.0 Presence of urogenital implants; Z87.440 Personal history of urinary (tract) infections; Z79.899 Other long term (current) drug therapy; Z79.4 Long term (current) use of insulin; Z86.718 Personal history of other venous thrombosis and embolism; Z86.711 Personal history of pulmonary embolism; Z87.01 Personal history of pneumonia (recurrent); Z86.14 Personal history of Methicillin resistant Staphylococcus aureus infection; Z79.891 Long term (current) use of opiate analgesic; Z23 Encounter for immunization
CPT/HCPCS: 93005; 99285; 51702; 36415 ×4; 87040; 82553; 82962 ×4; 82803; 82550; 83735 ×2; 84443; 85025 ×4; 80053 ×4; 81001; 84484; 87493 ×2; 83605; 87324; 87449; 83880; 71045; 70450; 71250; 90686; 93010; 94660; 94640 ×3; G0378 ×5; A9270 ×63; J3490 ×9; J1644 ×2; J0696 ×3; J1815; J7512; J7614

== ENCOUNTER 2019-06-23 18:16 | Inpatient (IN) | payer MEDICARE, MEDICAID ==
--- NOTE | 2019-06-23 18:58 | RADIOLOGY REPORT (SQ) ---
EXAM DESCRIPTION: CHEST SINGLE VIEW COMPLETED DATE/TIME: 06/23/2019 6:49 pm REASON FOR STUDY: sob COMPARISON: 03/30/2019 EXAM PARAMETERS: NUMBER OF VIEWS: One view. TECHNIQUE: Single frontal radiographic view of the chest acquired. RADIATION DOSE: NA LIMITATIONS: None. FINDINGS: LUNGS AND PLEURA: There is ill-defined opacification in the right base. MEDIASTINUM AND HILAR STRUCTURES: No masses. Contour normal. HEART AND VASCULAR STRUCTURES: Heart size is borderline. There is no maddy pulmonary edema. BONES: No acute findings. HARDWARE: None in the chest. OTHER: No other significant finding. IMPRESSION: Right lower lobe pneumonia. TECHNICAL DOCUMENTATION: JOB ID: [id number] [employer]- All Rights Reserved Reading location - IP/workstation name: [email or web address]
[2019-06-23 19:11] LABS: ABSOLUTE LYMPHOCYTES (AUTO) 1.1 10^3/uL (0.5-4.7); ABSOLUTE MONOCYTES (AUTO) 0.7 10^3/uL (0.1-1.4); ABSOLUTE NEUT (AUTO) 18.1 10^3/uL (1.7-8.2); BASOPHILS % (AUTO) 0.1 % (0-2); EOSINOPHILS % (AUTO) 0.2 % (0-6); HEMATOCRIT 35.8 % (36.0-47.0); HEMOGLOBIN 11.9 g/dL (12.0-15.5); LYMPHOCYTES % (AUTO) 5.4 % (13-45); MEAN CORPUSCULAR HGB CONC 33.2 g/dL (32.0-36.0); MEAN CORPUSCULAR VOLUME 87 fl (80-97); MONOCYTES % (AUTO) 3.6 % (3-13); PLATELET COUNT 273 10^3/uL (150-450); RED BLOOD COUNT 4.11 10^6/uL (3.72-5.28); RED CELL DISTRIBUTION WIDTH 14.4 % (11.5-14.0); SEGMENTED NEUTROPHILS % (AUTO) 90.7 % (42-78); TOTAL CELLS COUNTED % (AUTO) 100 %; WHITE BLOOD COUNT 19.9 10^3/uL (4.0-10.5)
[2019-06-23 19:33] LABS: ALBUMIN 3.4 g/dL (3.5-5.0); ALKALINE PHOSPHATASE 87 U/L (38-126); ANION GAP 10 (5-19); ASPARTATE AMINO TRANSFERASE 23 U/L (14-36); BILIRUBIN,DIRECT 0.4 mg/dL (0.0-0.4); BILIRUBIN,TOTAL 0.5 mg/dL (0.2-1.3); BLOOD UREA NITROGEN 48 mg/dL (7-20); CALCIUM 9.1 mg/dL (8.4-10.2); CARBON DIOXIDE 33 mmol/L (22-30); CHLORIDE 97 mmol/L (98-107); GLUCOSE 204 mg/dL (75-110); POTASSIUM 3.2 mmol/L (3.6-5.0); TOTAL PROTEIN 6.9 g/dL (6.3-8.2)
[2019-06-23] MEDS ORDERED: VANCOMYCIN HCL INJ 1000 MG VIAL IV ONE (19:47)
[2019-06-23] MEDS ORDERED: PIPERACILLIN/TAZOBACTAM 4.5 GM VIAL IV ONE (19:47)
--- NOTE | 2019-06-23 19:59 | ER Document Report ---
ED General - General Chief Complaint: Respiratory Distress Stated Complaint: SHORTNESS OF BREATH Time Seen by Provider: 06/23/19 19:13 Primary Care Provider: KARTHIKEYAN HERNANDEZ MD [Primary Care Provider] - Follow up as needed TRAVEL OUTSIDE OF THE [place] IN LAST 30 DAYS: No - HPI Notes: 72 year old female with a past medical history of atrial fibrillation, chronic diastolic heart failure, insulin dependent diabetes mellitus, CAD, history of DVT and PE, hyperlipidemia, hypertension, asthma, COPD, on indwelling Barton cath from hypotonic bladder recurrent UTI and history of UTI with ESBL who was brought in because of increasing weakness, cough, SOB from the [facility] was brought in due to reported confusion fever and weakness. She is chronically oxygen dependent on 3 L at [facility]. She is mildly disoriented here and history obtained from the patient is limited. SHE IS ON DNR/DNI STATUS. - Related Data Allergies/Adverse Reactions: Sulfa (Sulfonamide Antibiotics) Allergy (Intermediate, Verified 02/03/18 09:37) adhesive tape Allergy (Verified 02/03/18 09:37) atorvastatin calcium [From Lipitor] Allergy (Verified 02/03/18 09:37) celecoxib [From Celebrex] Allergy (Verified 02/03/18 09:37) Past Medical History - General Information source: Patient - Social History Smoking Status: Never Smoker Family History: Reviewed & Not Pertinent, Arthritis, CAD, CVA, DM, Hyperlipidemia, Hypertension Patient has suicidal ideation: No Patient has homicidal ideation: No - Past Medical History Cardiac Medical History: Reports: Hx Atrial Fibrillation, Hx Congestive Heart Failure - Diastolic dysfunction, Hx Coronary Artery Disease, Hx DVT, Hx Heart Attack, Hx Hypercholesterolemia, Hx Hypertension - essential, Hx Pulmonary Embolism, Hx Heart Murmur Denies: Hx Peripheral Vascular Disease Pulmonary Medical History: Reports: Hx Asthma, Hx Bronchitis, Hx COPD, Hx Pneumonia - Recurrent MRSA pneumonia., Hx Respiratory Failure - Chronic, Hx Sleep Apnea - Uses C Pap Denies: Hx Tuberculosis Neurological Medical History: Denies: Hx Seizures Endocrine Medical History: Reports: Hx Diabetes Mellitus Type 1, Hx Diabetes Mellitus Type 2. Denies: Hx Hyperthyroidism, Hx Hypothyroidism Renal/ Medical History: Reports: Hx Renal Insufficiency. Denies: Hx Peritoneal Dialysis GI Medical History: Reports: Hx Gastroesophageal Reflux Disease, Hx Hiatal Her maria t. Denies: Hx Cirrhosis, Hx Hepatitis Musculoskeletal Medical History: Reports Hx Arthritis, Reports Hx Fibromyalgia, Reports Hx Gout, Reports Hx Muscle Weakness Skin Medical History: Denies Hx Eczema, Denies Hx Psoriasis Psychiatric Medical History: Reports: Hx Anxiety, Hx Depression Infectious Medical History: Reports: Hx C-Diff, Hx MRSA. Denies: Hx Hepatitis Past Surgical History: Reports: Hx Appendectomy, Hx Cholecystectomy, Hx Hysterectomy, Hx Orthopedic Surgery - Multiple left hip procedures, 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 - Immunizations Hx Diphtheria, Pertussis, Tetanus Vaccination: Yes Hx Pneumococcal Vaccination: 05/20/13 Review of Systems - Review of Systems Notes: Constitutional: As per HPI HENT: Negative for sore throat. Eyes: Negative for visual changes. Cardiovascular: Negative for chest pain. Respiratory: As per HPI Gastrointestinal: Negative for abdominal pain, vomiting or diarrhea. Genitourinary: Has Barton catheter. Musculoskeletal: Negative for back pain. Skin: Negative for rash. Neurological: As per HPI. 10 point ROS negative except as marked above and in HPI. Physical Exam - Vital signs Vitals: Temp Resp BP Pulse Ox 102.3 F H 30 H 126/52 H 95 06/23/19 18:29 06/23/19 18:29 06/23/19 18:29 06/23/19 18:29 - Notes Notes: GENERAL: Frail elderly female who appears very chronically ill. SKIN: Warm to touch. Scattered ecchymoses. Good turgor. HEAD: Normocephalic atraumatic. EYES: PERRLA. EOMI. Conjunctivae and sclerae clear. EARS: CANALS AND TMS CLEAR. NOSE: CLEAR. MOUTH: Tacky mucosa. No stridor or edema. No drooling. NECK: Supple. No masses or thyromegaly. No adenopathy. Carotids 2+ without bruits. No JVD. BACK: Symmetrical without tenderness. CHEST: Rattling cough with scattered rhonchi and faint wheezes bilaterally. HEART: Regular rhythm. No murmur gallop or rub. ABDOMEN: Soft nontender without masses, organomegaly or rebound. Bowel sounds normally active. No bruits. GENITALIA: Barton catheter in situ. EXTREMITIES: No edema. No calf tenderness. Cap refill less than 1.5 seconds. Dorsalis pedis and posterior tibial pulses 3+ and symmetrical. NEUROLOGICAL: GCS 13. Eyes were closed and open to verbal command. She is or iented to person and place but not to date or time. Fluent speech. Cranial nerves II through XII intact. Sensorimotor and cerebellar normal. Normal tone. PSYCHIATRIC: Flat affect. Course - Re-evaluation Re-evalutation: 06/23/19 22:35 Patient is DNR/DNI. She has a new right lower lobe pneumonia and elevated white count. Lactate is normal. Blood pressure has been stable. Blood cultures were pulled and she has received IV steroids and some IV potassium supplementation as well as IV Zosyn and vancomycin. Findings were discussed with Dr. Stiles the on-call hospitalist who will admit patient to the floor. - Vital Signs Vital signs: Temp Pulse Resp BP Pulse Ox 98.2 F 28 H 117/56 L 91 L 06/23/19 22:22 06/23/19 20:01 06/23/19 20:00 06/23/19 20:01 - Laboratory Result Diagrams: 06/23/19 18:50 06/23/19 18:50 Laboratory results interpreted by me: 06/23/19 06/23/19 06/23/19 18:50 18:50 19:55 WBC 19.9 H Hgb 11.9 L Hct 35.8 L RDW 14.4 H Lymph % (Auto) 5.4 L Absolute Neuts (auto) 18.1 H Seg Neutrophils % 90.7 H ABG pO2 ABG HCO3 ABG Total CO2 Potassium 3.2 L Chloride 97 L Carbon Dioxide 33 H BUN 48 H Creatinine 1.44 H Est GFR ( Amer) 43 L Est GFR (MDRD) Non-Af 35 L Glucose 204 H POC Glucose Albumin 3.4 L Urine Protein 100 H Urine Blood SMALL H Urine Nitrite (Reflex) POSITIVE H Leukocyte Esterase Rfl LARGE H 06/23/19 06/23/19 20:05 21:50 WBC Hgb Hct RDW Lymph % (Auto) Absolute Neuts (auto) Seg Neutrophils % ABG pO2 69.2 L ABG HCO3 29.8 H ABG Total CO2 31.1 H Potassium Chloride Carbon Dioxide BUN Creatinine Est GFR ( Amer) Est GFR (MDRD) Non-Af Glucose POC Glucose 192 H Albumin Urine Protein Urine Blood Urine Nitrite (Reflex) Leukocyte Esterase Rfl - Diagnostic Test Radiology reviewed: Reports reviewed - Right lower lobe pneumonia per radiology Discharge - Discharge Clinical Impression: Pneumonia, COPD exacerbation, Metabolic encephalopathy, Hypokalemia Condition: Serious Disposition: ADMITTED INPATIENT Admitting Provider: Go (Hospitalist) Unit Admitted: Medical Floor Referrals: KARTHIKEYAN HERNANDEZ MD [Primary Care Provider] - Follow up as needed
[2019-06-23 20:06] LABS: INTERNATIONAL RATION (INR) 1.12; PROTHROMBIN TIME 14.5 SEC (11.4-15.4)
--- NOTE | 2019-06-23 20:18 | EKG REPORT ---
SEVERITY:- ABNORMAL ECG - ECTOPIC ATRIAL TACHYCARDIA SUPRAVENTRICULAR BIGEMINY MOBITZ II AV BLOCK LVH WITH IVCD, LAD AND SECONDARY REPOL ABNRM : Confirmed by: Yesenia Graham MD 23-Jun-2019 20:16:51
[2019-06-23 20:57] LABS: AMORPHOUS SEDIMENT,URINE TRACE /HPF; APPEARANCE,URINE CLOUDY; BILIRUBIN,URINE NEGATIVE (NEGATIVE); COLOR,URINE AMBER; GLUCOSE, URINE NEGATIVE (NEGATIVE); KETONES,URINE NEGATIVE (NEGATIVE); PROTEIN,URINE 100 mg/dL (NEGATIVE); TRIPLE PHOSPHATE CRYSTAL,URINE RARE /HPF; URINE SPECIFIC GRAVITY 1.015; UROBILINOGEN,URINE NEGATIVE mg/dL (<2.0)
[2019-06-23 21:29] LABS: INTERNATIONAL RATION (INR) 1.11; PROTHROMBIN TIME 14.4 SEC (11.4-15.4)
[2019-06-23 21:30] LABS: PARTIAL THROMBOPLASTIN TIME 27.2 SEC (23.5-35.8)
[2019-06-23 22:11] LABS: ARTERIAL BLOOD FIO2 3L; ARTERIAL BLOOD H2CO3 1.34 mmol/L (1.05-1.35); ARTERIAL BLOOD HCO3 29.8 mmol/L (20-24); ARTERIAL BLOOD O2 SATURATION 94.4 % (94-98); ARTERIAL BLOOD PCO2 44.4 mmHg (35-45); ARTERIAL BLOOD PH 7.44 (7.35-7.45); ARTERIAL BLOOD PO2 69.2 mmHg (80-100); ARTERIAL BLOOD TOTAL CO2 31.1 mmol/L (21-25)
[2019-06-23] MEDS ORDERED: METHYLPREDNISOLONE INJ 125 MG/2 ML SDV IV ONE (22:28)
[2019-06-23] MEDS ORDERED: POTASSI CL 20 MEQ/50 ML RIDER 20 MEQ/50 ML RTUPB IV ONE (22:30)
[2019-06-24] MEDS ORDERED: GUAIFENESIN SYRP 200 MG/10 ML UDC PO PRN (00:11)
[2019-06-24] MEDS ORDERED: MAG HYDROX/AL HYDROX/SIMETH SUSP 30 ML UDCUP PO PRN (00:14)
[2019-06-24] MEDS ORDERED: MAGNESIUM HYDROXIDE SUSP 30 ML UDCUP PO PRN (00:14)
[2019-06-24] MEDS ORDERED: VANCOMYCIN HCL INJ 1000 MG VIAL IV SCH (00:15)
[2019-06-24] MEDS ORDERED: MEROPENEM 1 GM VIAL IV PRN (00:22)
[2019-06-24] MEDS ORDERED: VANCOMYCIN HCL INJ 500 MG VIAL IV PRN (00:28)
[2019-06-24] MEDS ORDERED: MEROPENEM 1 GM in NORMAL SALINE 50 ML IV ONE (00:30)
[2019-06-24] MEDS ORDERED: POTASSI CL 20 MEQ/50 ML RIDER 20 MEQ/50 ML RTUPB IV ONE (00:30)
[2019-06-24] MEDS ORDERED: METHYLPREDNISOLONE INJ 125 MG/2 ML SDV IV ONE (00:30)
[2019-06-24] MEDS ORDERED: VANCOMYCIN HCL 500 MG in DEXTROSE 5%-WATER 100 ML IV ONE (00:30)
[2019-06-24] MEDS ORDERED: DEXTROSE 40% GEL 15 GM TUBE PO PRN ×2 (00:42)
[2019-06-24] MEDS ORDERED: DEXTROSE 50%-WATER 25 GM/50 ML DISP.SYRIN IV PRN ×2 (00:42)
[2019-06-24] MEDS ORDERED: GLUCAGON,HUMAN RECOMB 1 MG INJ IM PRN (00:42)
[2019-06-24] MEDS ORDERED: MEROPENEM 1 GM VIAL IV SCH (01:00)
[2019-06-24] MEDS ORDERED: MEROPENEM 1 GM VIAL ONE (01:14)
[2019-06-24] MEDS ORDERED: INFLUENZA QUAD (6MOS+) 2019-20 VAC 0.5 ML SYR IM ONE (02:36)
[2019-06-24 02:52] LABS: C DIFFICILE GDH NEGATIVE (NEGATIVE)
--- NOTE | 2019-06-24 02:55 | PDOC H&P ---
History of Present Illness Admission Date/PCP: 06/23/19 22:42 KARTHIKEYAN HERNANDEZ MD Patient complains of: Dyspnea History of Present Illness: PORSHA WALDRON is a 74 year old female who presented from the long-term with an acute history of dyspnea. The long-term staff noted that she seemed to be having more labored breathing and her O2 sat was less than normal despite continuous oxygen per her orders. Additionally they felt that she was weak and less responsive/more confused than normal. Patient has dementia and is unable to contribute substantial reliable information to her medical history. Patient is noted to have had previous similar episodes on numerous occasions related to COPD and pneumonia. In the emergency room the patient was found to have a right lower lobe pneumonia and an elevated white blood count of 19,900. She was subsequently admitted to hospital for further evaluation and treatment. Past Medical History Past Medical History: Patient has significant dementia and information here is obtained from the best available reliable source for past medical history, social history, past surgical history and family medical history. Cardiac Medical History: Reports: Atrial Fibrillation, Congestive Heart Failure - Diastolic dysfunction, Coronary Artery Disease, DVT, Myocardial Infarction, Hyperlipidema, Hypertension - essential, Pulmonary Embolism, Heart Murmur Denies: Peripheral Vascular Disease Pulmonary Medical History: Reports: Asthma, Bronchitis, Chronic Obstructive Pulmonary Disease (COPD), Pneumonia - Recurrent MRSA pneumonia., Respiratory Failure - Chronic, Sleep Apnea - Uses C Pap Denies: Tuberculosis EENT Medical History: Denies: Cataracts, Ears - Hearing aids Neurological Medical History: Denies: Hemorrhagic CVA, Ischemic CVA, Seizures Endocrine Medical History: Reports: Diabetes Mellitus Type 1, Diabetes Mellitus Type 2 Denies: Hyperthyroidism, Hypothyroidism Renal/ Medical History: Denies: Chronic Kidney Disease, Nephrolithiasis Malignancy Medical History: Reports: None GI Medical History: Reports: Gastroesophageal Reflux Disease, Hiatal Hernia Denies: Cirrhosis, Hepatitis Musculoskeltal Medical History: Reports: Arthritis, Fibromyalgia, Gout Skin Medical History: Denies: Eczema, Psoriasis Psychiatric Medical History: Reports: Depression Denies: Alcohol Dependency, Substance Abuse, Tobacco Dependency Traumatic Medical History: Reports: None Hematology: Reports: Anemia Denies: Bleeding Tendencies Infectious Medical History: Reports: Clostridium Difficile, Methicillin- Resistant Staph Aureus Past Surgical History Past Surgical History: Patient has significant dementia and information here is obtained from the best available reliable source for past medical history, social history, past surgical history and family medical history. Past Surgical History: Reports: Appendectomy, Cholecystectomy, Hysterectomy, Orthopedic Surgery - Multiple left hip procedures, 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 Social History Information Source: [facility] Records Lives with: [facility] Smoking Status: Former Smoker Electronic Cigarette use?: No Frequency of Alcohol Use: None Hx Recreational Drug Use: No Drugs: None Hx Prescription Drug Abuse: No Past Social History Note: Patient has significant dementia and information here is obtained from the best available reliable source for past medical history, social history, past criss gical history and family medical history. - Advance Directive Resuscitation Status: Do Not Resuscitate Surrogate healthcare decision maker:: Vera Zamora Family History Family History: Arthritis, CAD, CVA, DM, Hyperlipidemia, Hypertension Family History: Patient has significant dementia and information here is obtained from the best available reliable source for past medical history, social history, past surgical history and family medical history. Parental Family History Reviewed: Yes Children Family History Reviewed: No Sibling(s) Family History Reviewed.: Yes Medication/Allergy Home Medications: Acetaminophen [Tylenol] 650 mg PO Q4HP PRN 01/02/19 Albuterol Sulfate [Proair HFA Inhalation Aerosol 8.5 gm MDI] 2 puff IH Q4HP PRN 01/02/19 Baclofen [Baclofen 10 mg Tablet] 10 mg PO Q6HP PRN 01/02/19 Benzocaine/Menthol [Chloraseptic Sore Throat Lozenge] 1 each BUCCAL Q1HP PRN 01/02/19 Benzonatate [Tessalon Perles 100 mg Capsule] 200 mg PO TID 01/02/19 Budesonide [Pulmicort] 0.25 mg IH RTBID 01/02/19 Buspirone HCl [Buspar 5 mg Tablet] 5 mg PO Q12 01/02/19 Diltiazem HCl [Cardizem 30 mg Tablet] 30 mg PO Q8 01/02/19 Docusate Sodium [Colace 100 mg Capsule] 100 mg PO BID 01/02/19 Ergocalciferol (Vitamin D2) [Drisdol 50,000 unit (1.25MG) Capsule] 50,000 unit PO [id number] 01/02/19 Akila [place]/Linoleic/Gamoleni [Evening [place] 1,000 mg Sftg] 500 mg PO TID 01/02/19 Fentanyl [Duragesic 25 mcg/hr Transdermal Patch] 1 each TD Q3D 01/02/19 Ferrous Sulfate [Feosol 325 mg Tablet] 325 mg PO BID 01/02/19 Fluticasone/Salmeterol [Advair 500-50 Diskus 14 Dose/Diskus] 1 puff IH Q12 01/02/19 Furosemide [Lasix 40 mg Tablet] 40 mg PO BID 01/02/19 Guaifenesin [Guaifenesin ER] 1,200 mg PO Q12 01/02/19 Guaifenesin/D-Methorphan Hb [Robitussin Dm S-F Cough Syrup] 10 ml PO Q4HP PRN 01/02/19 Hydralazine HCl [Apresoline 25 mg Tablet] 25 mg PO Q8 01/02/19 Insulin Detemir [Levemir] 32 unit SQ DAILY 01/02/19 Insulin Lispro [Humalog Insulin (Lispro) 100 unit/mL] 0 unit SUBCUT .SLD SCALE 01/02/19 Ipratropium/Albuterol Sulfate [Duoneb 3 ml Ampul] 3 ml NEB [id number] 01/02/19 Lactulose [Constulose 10 gm/15 mL Oral Solution] 15 ml PO BIDP PRN 01/02/19 Levalbuterol HCl [Xopenex Neb 0.63 mg/3 ml Ampul] 0.63 mg NEB RTQ8 01/02/19 Lidocaine [Lidoderm 5% (700 mg) Transdermal Patch] 2 patch TP DAILYP PRN 01/02/19 Magnesium Hydroxide [Milk of Magnesia 30 ml Udcup] 30 ml PO DAILYP PRN 01/02/19 Magnesium Oxide [Mag-Ox 400 mg Tablet] 400 mg PO Q2D 01/02/19 Melatonin 10 mg PO QHS 01/02/19 Metoprolol Succinate [Toprol Xl] 25 mg PO DAILY 01/02/19 Mirabegron [Myrbetriq] 25 mg PO DAILY 01/02/19 Nitroglycerin [Nitrostat 0.4 mg (1/150 Gr) Tabs 25/Bottle] 0.4 mg SL Q5MP PRN 01/02/19 Olopatadine HCl [Pataday] 1 drop OU DAILY 01/02/19 Phenol/Sodium Phenolate [Chloraseptic Sore Throat Lynch 177 ml] 1 sprays MM Q1HP PRN 01/02/19 Polymyxin B Sulf/Trimethoprim [Polytrim Eye Drops] 1 drop OS QID 01/02/19 Prednisone [Deltasone] 20 mg PO DAILY 01/02/19 Promethazine HCl [Phenergan 25 mg Tablet] 12.5 mg PO Q4HP PRN 01/02/19 Ranitidine HCl [Zantac 150 mg Tablet] 150 mg PO BID 01/02/19 Ranolazine [Ranexa 500 mg Tab.sr] 500 mg PO Q12 01/02/19 Roflumilast [Daliresp 500 mcg Tablet] 500 mcg PO DAILY 01/02/19 Sennosides/Docusate 8.6-50 mg [Senna Plus Tablet] 1 tab PO QHS 01/02/19 Simethicone [Mylicon 80 mg Chewable Tablet] 80 mg PO Q6HP PRN 01/02/19 Tiotropium [place] [Spiriva Handihaler 5 Cap/Kit (18 Mcg/Cap)] 1 cap IH DAILY Tolterodine Tartrate [Detrol] 2 mg PO DAILY 01/02/19 Turmeric/Turmeric Root Extract [Turmeric 500 mg Capsule] 1,000 mg PO BID 01/02/19 Bupropion HCl [Wellbutrin 75 mg Tablet] 75 mg PO Q12 #60 tablet 01/09/19 Duloxetine HCl [Cymbalta 30 mg Capsule.] 60 mg PO DAILY #60 capsule. 01/09/19 Acetylcysteine [Mucomist 10% Neb 400 mg/4 mL Vial] 2 ml IH Q6 03/31/19 Biotin 300 mcg PO DAILY 03/31/19 Diclofenac Sodium [Voltaren] 2 gm TP Q8HP PRN 03/31/19 Fexofenadine HCl [Shaniqua] 60 mg PO QAM 03/31/19 Fluticasone Propionate [Flonase Nasal Lynch 50 Mcg/Lynch 16 gm] 2 sprays NASL Q12 03/31/19 Metolazone [Zaroxolyn 2.5 mg Tablet] 2.5 mg PO MOWEFR@1000 03/31/19 Polyethylene Glycol 3350 [Miralax Powder 17 gm/Packet] 17 gm PO DAILY 03/31/19 Polyvinyl Alcohol [Liquitears 1.4% Ophth Soln 15 ml] 1 drop OU QID 03/31/19 Potassium Chloride [K-Tab ER] 20 meq PO BID 03/31/19 Pregabalin [Lyrica 50 mg Capsule] 50 mg PO Q8 03/31/19 Fluticasone Propionate [Flonase Nasal Lynch 50 Mcg/Lynch 16 gm] 2 spray NASL Q12 spray.pump 04/02/19 Simethicone [Mylicon 80 mg Chewable Tablet] 80 mg PO Q6HP PRN tab.chew 04/02/19 Tiotropium [place] [Spiriva Handihaler 5 Cap/Kit (18 Mcg/Cap)] 1 cap IH DAILY kit 04/02/19 Allergies/Adverse Reactions: Sulfa (Sulfonamide Antibiotics) Allergy (Intermediate, Verified 02/03/18 09:37) adhesive tape Allergy (Verified 02/03/18 09:37) atorvastatin calcium [From Lipitor] Allergy (Verified 02/03/18 09:37) celecoxib [From Celebrex] Allergy (Verified 02/03/18 09:37) Review of Systems ROS unobtainable: Due to mental status - Dementia Physical Exam Vital Signs: Temp Pulse Resp BP Pulse Ox 98.2 F 29 H 120/58 L 93 06/23/19 22:22 06/23/19 23:01 06/23/19 23:00 06/23/19 23:01 Intake & Output 06/21/19 06/22/19 06/23/19 23:59 23:59 23:59 Weight 84 kg General appearance: PRESENT: no acute distress, cooperative Head exam: PRESENT: atraumatic, normocephalic Eye exam: PRESENT: conjunctiva pink. ABSENT: conjunctival injection, scleral icterus Ear exam: PRESENT: normal external ear exam. ABSENT: bleeding, drainage Mouth exam: PRESENT: dry mucosa, neck supple Neck exam: ABSENT: thyromegaly, tracheal deviation Respiratory exam: PRESENT: prolonged expiratory phas - Mildly prolonged expiratory phase in all mead, rales - Coarse rales in the right lower lung field, symmetrical, wheezes - Mild expiratory wheezes in all mead Cardiovascular exam: PRESENT: RRR - With frequent irregular beats. ABSENT: clicks, gallop, rubs Pulses: PRESENT: normal radial pulses, normal dorsalis pedis pul Vascular exam: PRESENT: normal capillary refill. ABSENT: pallor GI/Abdominal exam: PRESENT: normal bowel sounds, soft Rectal exam: PRESENT: deferred Extremities exam: ABSENT: joint swelling, pedal edema Musculoskeletal exam: ABSENT: deformity, dislocation Neurological exam: PRESENT: altered - Pleasant but confused, other - Call Psychiatric exam: PRESENT: other - Calm and affable Skin exam: PRESENT: dry, intact, warm. ABSENT: jaundice, rash, urticaria Results Laboratory Results: 06/23/19 18:50 06/23/19 18:50 06/23/19 06/23/19 06/23/19 18:50 18:50 18:50 WBC 19.9 H RBC 4.11 Hgb 11.9 L Hct 35.8 L MCV 87 MCH 29.0 MCHC 33.2 RDW 14.4 H Plt Count 273 Seg Neutrophils % 90.7 H Carbonic Acid HCO3/H2CO3 Ratio ABG pH ABG pCO2 ABG pO2 ABG HCO3 ABG O2 Saturation ABG Base Excess FiO2 Sodium 140.2 Potassium 3.2 L Chloride 97 L Carbon Dioxide 33 H Anion Gap 10 BUN 48 H Creatinine 1.44 H Est GFR ( Amer) 43 L Glucose 204 H Lactic Acid 1.0 Calcium 9.1 Total Bilirubin 0.5 AST 23 Alkaline Phosphatase 87 Total Protein 6.9 Albumin 3.4 L Urine Color Urine Appearance Urine pH Ur Specific [place] Urine Protein Urine Glucose (UA) Urine Ketones Urine Blood Urine RBC (Auto) 06/23/19 06/23/19 19:55 21:50 WBC RBC Hgb Hct MCV MCH MCHC RDW Plt Count Seg Neutrophils % Carbonic Acid 1.34 HCO3/H2CO3 Ratio 22:1 ABG pH 7.44 ABG pCO2 44.4 ABG pO2 69.2 L ABG HCO3 29.8 H ABG O2 Saturation 94.4 ABG Base Excess 5.0 FiO2 3L Sodium Potassium Chloride Carbon Dioxide Anion Gap BUN Creatinine Est GFR ( Amer) Glucose Lactic Acid Calcium Total Bilirubin AST Alkaline Phosphatase Total Protein Albumin Urine Color [place] Urine Appearance CLOUDY Urine pH 8.0 Ur Specific [place] 1.015 Urine Protein 100 H Urine Glucose (UA) NEGATIVE Urine Ketones NEGATIVE Urine Blood SMALL H Urine RBC (Auto) 6 06/23/19 18:50 Troponin I 0.021 Impressions: Chest X-Ray 06/23/19 18:23 IMPRESSION: Right lower lobe pneumonia. Assessment and Plan - Diagnosis (1) HCAP (healthcare-associated pneumonia) Is this a current diagnosis for this admission?: Yes (2) Acute and chronic respiratory failure with hypoxia Is this a current diagnosis for this admission?: Yes (3) COPD (chronic obstructive pulmonary disease) Qualifiers: Emphysema type: unspecified Is this a current diagnosis for this admission?: Yes (4) COR (chronic cor pulmonale) Is this a current diagnosis for this admission?: Yes (5) Diabetes mellitus type 2 in obese Is this a current diagnosis for this admission?: Yes (6) Coronary artery disease Qualifiers: Coronary Disease-Associated Artery/Lesion type: [place] artery Is this a current diagnosis for this admission?: Yes (7) Hypertension Qualifiers: Hypertension type: essential hypertension Qualified Code(s): I10 - Essential (primary) hypertension Is this a current diagnosis for this admission?: Yes (8) Hyperlipidemia Qualifiers: Hyperlipidemia type: unspecified Qualified Code(s): E78.5 - Hyperlipidemia, unspecified Is this a current diagnosis for this admission?: Yes (9) Paroxysmal A-fib Is this a current diagnosis for this admission?: Yes (10) Chronic diastolic CHF (congestive heart failure) Is this a current diagnosis for this admission?: Yes (11) Gastroesophageal reflux disease Qualifiers: Esophagitis presence: without esophagitis Qualified Code(s): K21.9 - Gastro-esophageal reflux disease without esophagitis Is this a current diagnosis for this admission?: Yes (12) Do not resuscitate Is this a current diagnosis for this admission?: Yes - Plan Summary Summary: Patient is admitted to the medical floor where she will receive routine supportive and symptomatic cares. She will be treated with IV antibiotics uti lizing meropenem and vancomycin due to her previous history of MRSA and ESBL etiologies, pending culture results. She received supplemental potassium in the emergency room. She will be treated with an aggressive pulmonary toilet utilizing Xopenex, Atrovent and Pulmicort delivered via nebulizer. She will receive IV steroids and will receive supplemental oxygen as required to maintain an O2 sat in the 90 to 94% range. Patient's usual medications will be continued as appropriate once her med list has been reconciled. Daily CBCs, metabolic profiles and magnesium levels will be obtained as appropriate. Vancomycin levels will be obtained as needed with pharmacy to manage vancomycin dosing. - Time Time Spent with patient: 15-24 minutes Medications reviewed and adjusted accordingly: Yes Anticipated discharge: SNF - Inpatient Certification Based on my medical assessment, after consideration of the patient's comorbidities, presenting symptoms, or acuity I expect that the services needed warrant INPATIENT care.: Yes I certify that my determination is in accordance with my understanding of Medicare's requirements for reasonable and necessary INPATIENT services [42 CFR 412.3e].: Yes Medical Necessity: Significant Comorbidiites Make Outpatient Treatment Too Risky, Need Close Monitoring Due to Risk of Patient Decompensation, Need for Nebulizer Therapy and Monitoring of Response, Need for IV Antibiotics, Risk of Complication if Not Cared For in Hospital
[2019-06-24] MEDS: METHYLPREDNISOLONE INJ 40 MG/1 ML SDV IV SCH ×3 (05:47→17:22)
[2019-06-24] MEDS: HEPARIN SOD (PORCINE) 5,000 UNIT/ML 1 ML VIAL SUBCUT SCH ×3 (05:48→22:04)
[2019-06-24] MEDS: LEVALBUTEROL HCL NEB 1.25 MG/3 ML AMPUL NEB SCH ×3 (07:34→23:39)
[2019-06-24] MEDS: BUDESONIDE NEB 0.5 MG/2 ML AMPUL NEB SCH ×2 (07:34→20:21)
[2019-06-24] MEDS: IPRATROPIUM BROMIDE 0.02% NEB 0.5 MG/2.5 ML AMPUL NEB SCH ×3 (07:34→23:39)
[2019-06-24] MEDS: ACETYLCYSTEINE 20% SOLN 800 MG/4 ML VIAL.NEB NEB SCH ×2 (07:36→20:04)
[2019-06-24] MEDS: INSULIN REG, HUMAN 100 UNIT/ML 3 ML VIAL (PYX) SUBCUT SCH ×4 (07:57→22:06)
--- NOTE | 2019-06-24 09:13 | PDOC PROGRESS REPORT ---
Subjective Progress Note for:: 06/24/19 Subjective:: 06/24/2019-no complaints this a.m. Reason For Visit: PNEUMONIA Physical Exam Vital Signs: Temp Pulse Resp BP Pulse Ox 99.0 F 95 12 131/69 H 98 06/24/19 08:20 06/24/19 08:20 06/24/19 08:20 06/24/19 08:20 06/24/19 08:20 Intake & Output 06/23/19 06/24/19 06/25/19 06:59 06:59 06:59 Intake Total 200 Output Total 500 Balance -300 Weight 81.8 kg General appearance: PRESENT: no acute distress, well-developed, well-nourished Neck exam: ABSENT: carotid bruit, JVD, lymphadenopathy, thyromegaly Respiratory exam: PRESENT: decreased breath sounds, symmetrical, tachypnea, unlabored, wheezes Cardiovascular exam: PRESENT: RRR. ABSENT: diastolic murmur, rubs, systolic murmur Pulses: PRESENT: +1 pedal pulses bilateral Vascular exam: PRESENT: normal capillary refill GI/Abdominal exam: PRESENT: normal bowel sounds, soft. ABSENT: distended, guarding, mass, organolmegaly, rebound, tenderness Extremities exam: PRESENT: full ROM. ABSENT: calf tenderness, clubbing, pedal edema Neurological exam: PRESENT: alert, awake, oriented to person, oriented to place, oriented to time, oriented to situation, CN II-XII grossly intact. ABSENT: motor sensory deficit Psychiatric exam: PRESENT: appropriate affect, normal mood. ABSENT: homicidal ideation, suicidal ideation Skin exam: PRESENT: dry, intact, warm. ABSENT: cyanosis, rash Results Laboratory Results: 06/23/19 18:50 06/23/19 18:50 06/23/19 06/23/19 06/23/19 18:50 18:50 18:50 WBC 19.9 H RBC 4.11 Hgb 11.9 L Hct 35.8 L MCV 87 MCH 29.0 MCHC 33.2 RDW 14.4 H Plt Count 273 Seg Neutrophils % 90.7 H Carbonic Acid HCO3/H2CO3 Ratio ABG pH ABG pCO2 ABG pO2 ABG HCO3 ABG O2 Saturation ABG Base Excess FiO2 Sodium 140.2 Potassium 3.2 L Chloride 97 L Carbon Dioxide 33 H Anion Gap 10 BUN 48 H Creatinine 1.44 H Est GFR ( Amer) 43 L Glucose 204 H Lactic Acid 1.0 Calcium 9.1 Total Bilirubin 0.5 AST 23 Alkaline Phosphatase 87 Total Protein 6.9 Albumin 3.4 L Urine Color Urine Appearance Urine pH Ur Specific [place] Urine Protein Urine Glucose (UA) Urine Ketones Urine Blood Urine RBC (Auto) 06/23/19 06/23/19 06/23/19 19:55 21:50 23:29 WBC RBC Hgb Hct MCV MCH MCHC RDW Plt Count Seg Neutrophils % Carbonic Acid 1.34 HCO3/H2CO3 Ratio 22:1 ABG pH 7.44 ABG pCO2 44.4 ABG pO2 69.2 L ABG HCO3 29.8 H ABG O2 Saturation 94.4 ABG Base Excess 5.0 FiO2 3L Sodium Potassium Chloride Carbon Dioxide Anion Gap BUN Creatinine Est GFR ( Amer) Glucose Lactic Acid 0.7 Calcium Total Bilirubin AST Alkaline Phosphatase Total Protein Albumin Urine Color [place] Urine Appearance CLOUDY Urine pH 8.0 Ur Specific [place] 1.015 Urine Protein 100 H Urine Glucose (UA) NEGATIVE Urine Ketones NEGATIVE Urine Blood SMALL H Urine RBC (Auto) 6 06/24/19 02:51 WBC RBC Hgb Hct MCV MCH MCHC RDW Plt Count Seg Neutrophils % Carbonic Acid HCO3/H2CO3 Ratio ABG pH ABG pCO2 ABG pO2 ABG HCO3 ABG O2 Saturation ABG Base Excess FiO2 Sodium Potassium Chloride Carbon Dioxide Anion Gap BUN Creatinine Est GFR ( Amer) Glucose Lactic Acid 0.7 Calcium Total Bilirubin AST Alkaline Phosphatase Total Protein Albumin Urine Color Urine Appearance Urine pH Ur Specific [place] Urine Protein Urine Glucose (UA) Urine Ketones Urine Blood Urine RBC (Auto) 06/23/19 18:50 Troponin I 0.021 Impressions: Chest X-Ray 06/23/19 18:23 IMPRESSION: Right lower lobe pneumonia. Assessment and Plan - Diagnosis (1) HCAP (healthcare-associated pneumonia) Is this a current diagnosis for this admission?: Yes Plan: 06/24/2019-continue await cultures. Continue Vanco and meropenem other modalities including steroids, bronchodilators and submental oxygen as needed (2) Acute and chronic respiratory failure with hypoxia Is this a current diagnosis for this admission?: Yes Plan: 06/24/2019-see #1 (3) COPD (chronic obstructive pulmonary disease) Qualifiers: Emphysema type: unspecified Is this a current diagnosis for this admission?: Yes Plan: 06/24/2019-see #1 (4) COR (chronic cor pulmonale) Is this a current diagnosis for this admission?: Yes Plan: 06/24/2019-chronic in nature stable at this time. (5) Chronic diastolic CHF (congestive heart failure) Is this a current diagnosis for this admission?: Yes Plan: 06/24/2019-chronic not in acute exacerbation. Continue to follow (6) Coronary artery disease Qualifiers: Coronary Disease-Associated Artery/Lesion type: [place] artery Is this a current diagnosis for this admission?: Yes Plan: 06/24/2019-stable (7) DM type 2 (diabetes mellitus, type 2) Is this a current diagnosis for this admission?: Yes Plan: 06/24/2019-chronic stable (8) Gastroesophageal reflux disease Qualifiers: Esophagitis presence: without esophagitis Qualified Code(s): K21.9 - Gastro-esophageal reflux disease without esophagitis Is this a current diagnosis for this admission?: Yes Plan: 06/24/2019-stable (9) HTN (hypertension) Is this a current diagnosis for this admission?: Yes Plan: 06/24/2019-stable (10) Hyperlipidemia Qualifiers: Hyperlipidemia type: unspecified Qualified Code(s): E78.5 - Hyperlipidemia, unspecified Is this a current diagnosis for this admission?: Yes Plan: 06/24/2019-stable (11) Paroxysmal A-fib Is this a current diagnosis for this admission?: Yes Plan: 06/24/2019 sinus rhythm at this time continue to follow. - Plan Summary Summary: Patient is admitted to the medical floor where she will receive routine supportive and symptomatic cares. She will be treated with IV antibiotics utilizing meropenem and vancomycin due to her previous history of MRSA and ESBL etiologies, pending culture results. She received supplemental potassium in the emergency room. She will be treated with an aggressive pulmonary toilet utilizing Xopenex, Atrovent and Pulmicort delivered via nebulizer. She will receive IV steroids and will receive supplemental oxygen as required to maintain an O2 sat in the 90 to 94% range. Patient's usual medications will be continued as appropriate once her med list has been reconciled. Daily CBCs, metabolic profiles and magnesium levels will be obtained as appropriate. Vancomycin levels will be obtained as needed with pharmacy to manage vancomycin dosing. - Time Time Spent with patient: 15-24 minutes - Inpatient Certification Based on my medical assessment, after consideration of the patient's comorbidities, presenting symptoms, or acuity I expect that the services needed warrant INPATIENT care.: Yes I certify that my determination is in accordance with my understanding of Medicare's requirements for reasonable and necessary INPATIENT services [42 CFR 412.3e].: Yes Medical Necessity: Significant Comorbidiites Make Outpatient Treatment Too Risky, Need Close Monitoring Due to Risk of Patient Decompensation
[2019-06-24] MEDS: FAMOTIDINE 20 MG TABLET PO SCH ×2 (09:27→22:04)
[2019-06-24] MEDS: DOCUSATE SODIUM 100 MG CAPSULE PO SCH ×3 (09:27→17:21)
[2019-06-24] MEDS: ACETAMINOPHEN 325 MG TABLET PO PRN (12:27)
[2019-06-24] MEDS: OXYCODONE HCL IR 5 MG TABLET PO PRN (14:35)
[2019-06-24] MEDS: FENTANYL 25 MCG/HR PATCH.TD72 TD SCH (16:56)
[2019-06-24] MEDS: PREGABALIN 50 MG CAPSULE PO SCH ×2 (16:56→22:05)
[2019-06-24] MEDS: DILTIAZEM HCL 30 MG TABLET PO SCH ×2 (16:56→22:05)
[2019-06-24] MEDS: HYDRALAZINE HCL 25 MG TABLET PO SCH ×2 (16:56→22:05)
[2019-06-24] MEDS: FERROUS SULFATE 325 MG TABLET PO SCH (17:22)
[2019-06-24] MEDS: MEROPENEM 1 GM in NORMAL SALINE 50 ML IV SCH (17:22)
[2019-06-24] MEDS: VANCOMYCIN HCL 750 MG in DEXTROSE 5%-WATER 250 ML IV SCH (18:33)
[2019-06-24] MEDS: BUDESONIDE NEB 0.25 MG/2 ML AMPUL NEB SCH (20:03)
[2019-06-24] MEDS: LEVALBUTEROL HCL NEB 0.63 MG/3 ML AMPUL NEB PRN (20:03)
--- NOTE | 2019-06-24 20:08 | EKG REPORT ---
SEVERITY:- ABNORMAL ECG - SINUS TACHYCARDIA MULTIPLE ATRIAL PREMATURE COMPLEXES PROBABLE LEFT ATRIAL ABNORMALITY LVH WITH IVCD, LAD AND SECONDARY REPOL ABNRM : Confirmed by: Yesenia Graham MD 24-Jun-2019 20:07:40
[2019-06-24] MEDS ORDERED: (PENDING PHARMACY ID) (Fluticasone/Salmeterol 1 PUFF) IH SCH (22:00)
[2019-06-24] MEDS: BUSPIRONE HCL 10 MG TABLET PO SCH (22:05)
[2019-06-24] MEDS: PROMETHAZINE HCL 25 MG TABLET PO PRN (22:11)
[2019-06-24] MEDS: RANOLAZINE 500 MG TAB.SR.12H PO SCH (22:11)
[2019-06-25] MEDS: METHYLPREDNISOLONE INJ 40 MG/1 ML SDV IV SCH ×4 (00:45→17:27)
[2019-06-25 05:28] LABS: HEMATOCRIT 33.3 % (36.0-47.0); HEMOGLOBIN 11.3 g/dL (12.0-15.5); MEAN CORPUSCULAR HEMOGLOBIN 29.3 pg (27.0-33.4); MEAN CORPUSCULAR VOLUME 86 fl (80-97); PLATELET COUNT 259 10^3/uL (150-450); RED BLOOD COUNT 3.87 10^6/uL (3.72-5.28); RED CELL DISTRIBUTION WIDTH 14.5 % (11.5-14.0); WHITE BLOOD COUNT 11.7 10^3/uL (4.0-10.5)
[2019-06-25 05:56] LABS: ANION GAP 12 (5-19); BLOOD UREA NITROGEN 42 mg/dL (7-20); CALCIUM 8.5 mg/dL (8.4-10.2); CARBON DIOXIDE 30 mmol/L (22-30); CHLORIDE 98 mmol/L (98-107); GLUCOSE 187 mg/dL (75-110); POTASSIUM 3.4 mmol/L (3.6-5.0)
[2019-06-25] MEDS: HEPARIN SOD (PORCINE) 5,000 UNIT/ML 1 ML VIAL SUBCUT SCH ×3 (06:07→22:03)
[2019-06-25] MEDS: PREGABALIN 50 MG CAPSULE PO SCH ×3 (06:07→22:02)
[2019-06-25] MEDS: DILTIAZEM HCL 30 MG TABLET PO SCH ×3 (06:07→22:02)
[2019-06-25] MEDS: HYDRALAZINE HCL 25 MG TABLET PO SCH ×3 (06:07→22:02)
[2019-06-25] MEDS: MEROPENEM 1 GM in NORMAL SALINE 50 ML IV SCH ×2 (06:08→17:26)
[2019-06-25] MEDS: OXYCODONE HCL IR 5 MG TABLET PO PRN ×2 (06:10→15:37)
[2019-06-25] MEDS: METOPROLOL SUCCINATE 25 MG TAB.SR.24H PO SCH (07:33)
[2019-06-25] MEDS: INSULIN REG, HUMAN 100 UNIT/ML 3 ML VIAL (PYX) SUBCUT SCH ×4 (07:33→22:01)
[2019-06-25] MEDS: DULOXETINE HCL 30 MG CAPSULE.DR PO SCH (07:33)
[2019-06-25] MEDS ORDERED: (PENDING PHARMACY ID) (Tolterodine Tartrate [Detrol] 2 MG) PO SCH (08:00)
[2019-06-25] MEDS ORDERED: (PENDING PHARMACY ID) (Bupropion Hcl [Wellbutrin Xl 150 Mg 24hr Tablet] 150 MG) PO SCH (08:00)
[2019-06-25] MEDS ORDERED: (PENDING PHARMACY ID) (Mirabegron [Myrbetriq] 25 MG) PO SCH (08:00)
[2019-06-25] MEDS: ACETYLCYSTEINE 20% SOLN 800 MG/4 ML VIAL.NEB NEB SCH ×2 (08:43→20:00)
[2019-06-25] MEDS: IPRATROPIUM BROMIDE 0.02% NEB 0.5 MG/2.5 ML AMPUL NEB SCH ×2 (08:44→16:03)
[2019-06-25] MEDS: BUDESONIDE NEB 0.25 MG/2 ML AMPUL NEB SCH ×2 (08:45→20:00)
[2019-06-25] MEDS: LEVALBUTEROL HCL NEB 1.25 MG/3 ML AMPUL NEB SCH ×2 (08:45→16:04)
--- NOTE | 2019-06-25 09:28 | PDOC PROGRESS REPORT ---
Subjective Progress Note for:: 06/25/19 Subjective:: 06/24/2019-no complaints this a.m. 06/25/2019-patient wishes to have concern with each meal, patient will have home eyedrops brought in and resume on Lasix. Reason For Visit: PNEUMONIA Physical Exam Vital Signs: Temp Pulse Resp BP Pulse Ox 97.8 F 81 16 125/61 98 06/25/19 08:23 06/25/19 08:23 06/25/19 08:23 06/25/19 08:23 06/25/19 08:23 Intake & Output 06/24/19 06/25/19 06/26/19 06:59 06:59 06:59 Intake Total 200 580 Output Total 500 1415 Balance -300 -835 Weight 81.8 kg 82.2 kg General appearance: PRESENT: no acute distress, well-developed, well-nourished Neck exam: ABSENT: carotid bruit, JVD, lymphadenopathy, thyromegaly Respiratory exam: PRESENT: clear to auscultation elia. ABSENT: rales, rhonchi, wheezes Cardiovascular exam: PRESENT: RRR. ABSENT: diastolic murmur, rubs, systolic murmur Pulses: PRESENT: +1 pedal pulses bilateral Vascular exam: PRESENT: normal capillary refill GI/Abdominal exam: PRESENT: normal bowel sounds, soft. ABSENT: distended, guarding, mass, organolmegaly, rebound, tenderness Extremities exam: PRESENT: full ROM. ABSENT: calf tenderness, clubbing, pedal edema Neurological exam: PRESENT: alert, awake, oriented to person, oriented to place, oriented to time, oriented to situation, CN II-XII grossly intact. ABSENT: motor sensory deficit Psychiatric exam: PRESENT: appropriate affect, normal mood. ABSENT: homicidal ideation, suicidal ideation Skin exam: PRESENT: dry, intact, warm. ABSENT: cyanosis, rash Results Laboratory Results: 06/25/19 04:25 06/25/19 04:25 06/25/19 06/25/19 04:25 04:25 WBC 11.7 H RBC 3.87 Hgb 11.3 L Hct 33.3 L MCV 86 MCH 29.3 MCHC 34.0 RDW 14.5 H Plt Count 259 Sodium 140.0 Potassium 3.4 L Chloride 98 Carbon Dioxide 30 Anion Gap 12 BUN 42 H Creatinine 1.26 H Est GFR ( Amer) 50 L Glucose 187 H Calcium 8.5 06/23/19 18:50 Troponin I 0.021 Impressions: Chest X-Ray 06/23/19 18:23 IMPRESSION: Right lower lobe pneumonia. Assessment and Plan - Diagnosis (1) HCAP (healthcare-associated pneumonia) Is this a current diagnosis for this admission?: Yes Plan: 06/24/2019-continue await cultures. Continue Vanco and meropenem other modalities including steroids, bronchodilators and supplemental oxygen as needed 06/25/2019-continues on vancomycin and meropenem. Await cultures. Continue steroids, bronchodilators and supplemental oxygen (2) Acute and chronic respiratory failure with hypoxia Is this a current diagnosis for this admission?: Yes Plan: 06/24/2019-see #1 06/25/2019-see 1 (3) COPD (chronic obstructive pulmonary disease) Qualifiers: Emphysema type: unspecified Is this a current diagnosis for this admission?: Yes Plan: 06/24/2019-see #1 06/25/2019-see #1 (4) COR (chronic cor pulmonale) Is this a current diagnosis for this admission?: Yes Plan: 06/24/2019-chronic in nature stable at this time. 06/25/2019-stable (5) Chronic diastolic CHF (congestive heart failure) Is this a current diagnosis for this admission?: Yes Plan: 06/24/2019-chronic not in acute exacerbation. Continue to follow 06/25/2019-not in acute exacerbation. Will continue home Lasix (6) Coronary artery disease Qualifiers: Coronary Disease-Associated Artery/Lesion type: [place] artery Is this a current diagnosis for this admission?: Yes Plan: 06/24/2019-stable 06/25/2019-stable (7) DM type 2 (diabetes mellitus, type 2) Is this a current diagnosis for this admission?: Yes Plan: 06/24/2019-chronic stable 06/25/2019-stable (8) Gastroesophageal reflux disease Qualifiers: Esophagitis presence: without esophagitis Qualified Code(s): K21.9 - Gastro-esophageal reflux disease without esophagitis Is this a current diagnosis for this admission?: Yes Plan: 06/24/2019-stable 06/25/2019-stable (9) HTN (hypertension) Is this a current diagnosis for this admission?: Yes Plan: 06/24/2019-stable 06/25/2019-stable (10) Hyperlipidemia Qualifiers: Hyperlipidemia type: unspecified Qualified Code(s): E78.5 - Hyperlipidemia, unspecified Is this a current diagnosis for this admission?: Yes Plan: 06/24/2019-stable 06/25/2019-stable (11) Paroxysmal A-fib Is this a current diagnosis for this admission?: Yes Plan: 06/24/2019 sinus rhythm at this time continue to follow. 06/25/2019-remains in sinus rhythm continue to follow - Plan Summary Summary: Patient is admitted to the medical floor where she will receive routine supportive and symptomatic cares. She will be treated with IV antibiotics utilizing meropenem and vancomycin due to her previous history of MRSA and ESBL etiologies, pending culture results. She received supplemental potassium in the emergency room. She will be treated with an aggressive pulmonary toilet utilizing Xopenex, Atrovent and Pulmicort delivered via nebulizer. She will receive IV steroids and will receive supplemental oxygen as required to maintain an O2 sat in the 90 to 94% range. Patient's usual medications will be continued as appropriate once her med list has been reconciled. Daily CBCs, metabolic profiles and magnesium levels will be obtained as appropriate. Vancomycin levels will be obtained as needed with pharmacy to manage vancomycin dosing. - Time Time Spent with patient: 15-24 minutes - Inpatient Certification Based on my medical assessment, after consideration of the patient's comorbidities, presenting symptoms, or acuity I expect that the services needed warrant INPATIENT care.: Yes I certify that my determination is in accordance with my understanding of Medicare's requirements for reasonable and necessary INPATIENT services [42 CFR 412.3e].: Yes Medical Necessity: Significant Comorbidiites Make Outpatient Treatment Too Risky, Need Close Monitoring Due to Risk of Patient Decompensation, Need For Continuous Telemetry Monitoring
[2019-06-25] MEDS: FAMOTIDINE 20 MG TABLET PO SCH ×2 (09:59→22:02)
[2019-06-25] MEDS: BUSPIRONE HCL 10 MG TABLET PO SCH ×2 (09:59→22:02)
[2019-06-25] MEDS: BUPROPION HCL 75 MG TABLET PO SCH ×2 (09:59→22:01)
[2019-06-25] MEDS: FERROUS SULFATE 325 MG TABLET PO SCH ×2 (10:00→17:26)
[2019-06-25] MEDS: FUROSEMIDE 40 MG TABLET PO SCH ×2 (10:00→17:26)
[2019-06-25] MEDS: INSULIN GLARGINE,HUM.REC.ANLOG 1,000 UNIT/10 ML VIAL SUBCUT SCH (10:00)
[2019-06-25] MEDS: DOCUSATE SODIUM 100 MG CAPSULE PO SCH ×2 (10:00→17:26)
[2019-06-25] MEDS: FLUTICASONE/VILANTEROL 200-25 MCG/DOSE IH SCH (10:01)
[2019-06-25] MEDS: RANOLAZINE 500 MG TAB.SR.12H PO SCH ×2 (10:02→22:03)
[2019-06-25] MEDS: POLYVINYL ALCOHOL 1.4% OPH SOLN 15 ML OU SCH ×4 (15:29→22:15)
[2019-06-25] MEDS: POLYETHYLENE GLYCOL 3350 POWDER 17 GM/1 PACKET PO SCH (15:37)
[2019-06-25] MEDS: VANCOMYCIN HCL 750 MG in DEXTROSE 5%-WATER 250 ML IV SCH (18:28)
[2019-06-25] MEDS: ACETAMINOPHEN 325 MG TABLET PO PRN (19:50)
[2019-06-25] MEDS: LEVALBUTEROL HCL NEB 0.63 MG/3 ML AMPUL NEB PRN (20:00)
[2019-06-25] MEDS: POLYMYXIN B SULFATE/TMP OPH SOLN 10 ML OU SCH (22:04)
[2019-06-26] MEDS: LEVALBUTEROL HCL NEB 1.25 MG/3 ML AMPUL NEB SCH ×3 (00:16→15:58)
[2019-06-26] MEDS: IPRATROPIUM BROMIDE 0.02% NEB 0.5 MG/2.5 ML AMPUL NEB SCH ×3 (00:16→15:58)
[2019-06-26] MEDS: OXYCODONE HCL IR 5 MG TABLET PO PRN ×3 (00:34→22:26)
[2019-06-26] MEDS: METHYLPREDNISOLONE INJ 40 MG/1 ML SDV IV SCH (00:35)
[2019-06-26] MEDS: PROMETHAZINE HCL 25 MG TABLET PO PRN ×2 (02:41→07:40)
[2019-06-26 05:25] LABS: HEMATOCRIT 32.3 % (36.0-47.0); HEMOGLOBIN 11.1 g/dL (12.0-15.5); MEAN CORPUSCULAR HEMOGLOBIN 29.4 pg (27.0-33.4); MEAN CORPUSCULAR HGB CONC 34.4 g/dL (32.0-36.0); MEAN CORPUSCULAR VOLUME 86 fl (80-97); PLATELET COUNT 254 10^3/uL (150-450); RED BLOOD COUNT 3.77 10^6/uL (3.72-5.28); RED CELL DISTRIBUTION WIDTH 14.2 % (11.5-14.0); WHITE BLOOD COUNT 8.1 10^3/uL (4.0-10.5)
[2019-06-26 05:46] LABS: ANION GAP 14 (5-19); BLOOD UREA NITROGEN 51 mg/dL (7-20); CALCIUM 8.4 mg/dL (8.4-10.2); CARBON DIOXIDE 30 mmol/L (22-30); CHLORIDE 92 mmol/L (98-107); GLUCOSE 188 mg/dL (75-110); POTASSIUM 3.3 mmol/L (3.6-5.0)
[2019-06-26] MEDS: MEROPENEM 1 GM in NORMAL SALINE 50 ML IV SCH (06:13)
[2019-06-26] MEDS: PREGABALIN 50 MG CAPSULE PO SCH ×3 (06:13→22:12)
[2019-06-26] MEDS: DILTIAZEM HCL 30 MG TABLET PO SCH ×3 (06:14→22:12)
[2019-06-26] MEDS: HYDRALAZINE HCL 25 MG TABLET PO SCH ×3 (06:15→22:12)
[2019-06-26] MEDS: HEPARIN SOD (PORCINE) 5,000 UNIT/ML 1 ML VIAL SUBCUT SCH ×3 (06:15→22:11)
[2019-06-26] MEDS: ACETAMINOPHEN 325 MG TABLET PO PRN (06:17)
[2019-06-26] MEDS: INSULIN REG, HUMAN 100 UNIT/ML 3 ML VIAL (PYX) SUBCUT SCH ×4 (07:39→22:06)
[2019-06-26] MEDS: METOPROLOL SUCCINATE 25 MG TAB.SR.24H PO SCH (07:41)
[2019-06-26] MEDS: DULOXETINE HCL 30 MG CAPSULE.DR PO SCH (07:42)
[2019-06-26] MEDS: ACETYLCYSTEINE 20% SOLN 800 MG/4 ML VIAL.NEB NEB SCH ×2 (07:49→19:51)
[2019-06-26] MEDS: BUDESONIDE NEB 0.25 MG/2 ML AMPUL NEB SCH ×2 (07:49→19:51)
[2019-06-26] MEDS ORDERED: LIDOCAINE 5% (700 MG) TRANSDERMAL ADH..PATCH TP PRN (09:49)
[2019-06-26] MEDS ORDERED: (PENDING PHARMACY ID) (Diclofenac Sodium [Voltaren] 2 GM) TOP PRN (09:49)
--- NOTE | 2019-06-26 09:56 | PDOC PROGRESS REPORT ---
Subjective Progress Note for:: 06/26/19 Subjective:: 06/24/2019-no complaints this a.m. 06/25/2019-patient wishes to have concern with each meal, patient will have home eyedrops brought in and resume on Lasix. 06/26/2019-no complaints Reason For Visit: PNEUMONIA Physical Exam Vital Signs: Temp Pulse Resp BP Pulse Ox 97.7 F 72 16 146/58 H 98 06/26/19 08:27 06/26/19 08:27 06/26/19 08:27 06/26/19 08:27 06/26/19 08:27 Intake & Output 06/25/19 06/26/19 06/27/19 06:59 06:59 06:59 Intake Total 580 2139 Output Total 1415 1675 Balance -835 464 Weight 82.2 kg 82.4 kg General appearance: PRESENT: no acute distress, well-developed, well-nourished Neck exam: ABSENT: carotid bruit, JVD, lymphadenopathy, thyromegaly Respiratory exam: PRESENT: decreased breath sounds, rhonchi, symmetrical, unlabored Cardiovascular exam: PRESENT: RRR. ABSENT: diastolic murmur, rubs, systolic murmur Pulses: PRESENT: +1 pedal pulses bilateral Vascular exam: PRESENT: normal capillary refill GI/Abdominal exam: PRESENT: normal bowel sounds, soft. ABSENT: distended, guarding, mass, organolmegaly, rebound, tenderness Extremities exam: PRESENT: full ROM. ABSENT: calf tenderness, clubbing, pedal edema Neurological exam: PRESENT: alert, awake, oriented to person, oriented to place, oriented to time, oriented to situation, CN II-XII grossly intact. ABSENT: motor sensory deficit Psychiatric exam: PRESENT: appropriate affect, normal mood. ABSENT: homicidal ideation, suicidal ideation Skin exam: PRESENT: dry, intact, warm. ABSENT: cyanosis, rash Results Laboratory Results: 06/26/19 03:49 06/26/19 03:49 06/26/19 06/26/19 03:49 03:49 WBC 8.1 RBC 3.77 Hgb 11.1 L Hct 32.3 L MCV 86 MCH 29.4 MCHC 34.4 RDW 14.2 H Plt Count 254 Sodium 136.1 L Potassium 3.3 L Chloride 92 L Carbon Dioxide 30 Anion Gap 14 BUN 51 H Creatinine 1.40 H Est GFR ( Amer) 44 L Glucose 188 H Calcium 8.4 06/23/19 18:50 Troponin I 0.021 Impressions: Chest X-Ray 06/23/19 18:23 IMPRESSION: Right lower lobe pneumonia. Assessment and Plan - Diagnosis (1) HCAP (healthcare-associated pneumonia) Is this a current diagnosis for this admission?: Yes Plan: 06/24/2019-continue await cultures. Continue Vanco and meropenem other modalities including steroids, bronchodilators and supplemental oxygen as needed 06/25/2019-continues on vancomycin and meropenem. Await cultures. Continue steroids, bronchodilators and supplemental oxygen 06/26/2019-cultures returned showing Proteus Mirabella's susceptible to Cipro. Will DC Vanco and meropenem and placed on Cipro 500 mg p.o. twice daily. (2) Acute and chronic respiratory failure with hypoxia Is this a current diagnosis for this admission?: Yes Plan: 06/24/2019-see #1 06/25/2019-see 1 06/26/2019 see #1 (3) COPD (chronic obstructive pulmonary disease) Qualifiers: Emphysema type: unspecified Is this a current diagnosis for this admission?: Yes Plan: 06/24/2019-see #1 06/25/2019-see #1 06/26/2019-see #1 (4) COR (chronic cor pulmonale) Is this a current diagnosis for this admission?: Yes Plan: 06/24/2019-chronic in nature stable at this time. 06/25/2019-stable 06/26/2019-stable (5) Chronic diastolic CHF (congestive heart failure) Is this a current diagnosis for this admission?: Yes Plan: 06/24/2019-chronic not in acute exacerbation. Continue to follow 06/25/2019-not in acute exacerbation. Will continue home Lasix 06/26/2019-stable (6) Coronary artery disease Qualifiers: Coronary Disease-Associated Artery/Lesion type: [place] artery Is this a current diagnosis for this admission?: Yes Plan: 06/24/2019-stable 06/25/2019-stable 06/26/2019-stable (7) DM type 2 (diabetes mellitus, type 2) Is this a current diagnosis for this admission?: Yes Plan: 06/24/2019-chronic stable 06/25/2019-stable 06/26/2019-stable (8) Gastroesophageal reflux disease Qualifiers: Esophagitis presence: without esophagitis Qualified Code(s): K21.9 - Gastro-esophageal reflux disease without esophagitis Is this a current diagnosis for this admission?: Yes Plan: 06/24/2019-stable 06/25/2019-stable 06/26/2019-stable (9) HTN (hypertension) Is this a current diagnosis for this admission?: Yes Plan: 06/24/2019-stable 06/25/2019-stable 06/26/2019-stable (10) Hyperlipidemia Qualifiers: Hyperlipidemia type: unspecified Qualified Code(s): E78.5 - Hyperlipidemia, unspecified Is this a current diagnosis for this admission?: Yes Plan: 06/24/2019-stable 06/25/2019-stable 06/26/2019-stable (11) Paroxysmal A-fib Is this a current diagnosis for this admission?: Yes Plan: 06/24/2019 sinus rhythm at this time continue to follow. 06/25/2019-remains in sinus rhythm continue to follow 06/26/2019-stable - Plan Summary Summary: Patient is admitted to the medical floor where she will receive routine supportive and symptomatic cares. She will be treated with IV antibiotics utilizing meropenem and vancomycin due to her previous history of MRSA and ESBL etiologies, pending culture results. She received supplemental potassium in the emergency room. She will be treated with an aggressive pulmonary toilet utilizing Xopenex, Atrovent and Pulmicort delivered via nebulizer. She will receive IV steroids and will receive supplemental oxygen as required to maintain an O2 sat in the 90 to 94% range. Patient's usual medications will be continued as appropriate once her med list has been reconciled. Daily CBCs, metabolic profiles and magnesium levels will be obtained as appropriate. Vancomycin levels will be obtained as needed with pharmacy to manage vancomycin dosing. - Time Time Spent with patient: 15-24 minutes - Inpatient Certification Based on my medical assessment, after consideration of the patient's comorbidities, presenting symptoms, or acuity I expect that the services needed warrant INPATIENT care.: Yes I certify that my determination is in accordance with my understanding of Medicare's requirements for reasonable and necessary INPATIENT services [42 CFR 412.3e].: Yes Medical Necessity: Significant Comorbidiites Make Outpatient Treatment Too Risky, Need Close Monitoring Due to Risk of Patient Decompensation
[2019-06-26] MEDS ORDERED: POTASSIUM CHLORIDE 10 MEQ TABLET.ER PO ONE (10:30)
[2019-06-26] MEDS: OLOPATADINE HCL 0.1% OPH SOLN 5 ML OU SCH (12:05)
[2019-06-26] MEDS: FLUTICASONE/VILANTEROL 200-25 MCG/DOSE IH SCH (12:05)
[2019-06-26] MEDS: RANOLAZINE 500 MG TAB.SR.12H PO SCH ×2 (12:05→22:07)
[2019-06-26] MEDS: CIPROFLOXACIN HCL 500 MG TABLET PO SCH ×2 (12:06→22:14)
[2019-06-26] MEDS: BUPROPION HCL 75 MG TABLET PO SCH ×2 (12:10→22:12)
[2019-06-26] MEDS: BUSPIRONE HCL 10 MG TABLET PO SCH ×2 (12:10→22:12)
[2019-06-26] MEDS: FERROUS SULFATE 325 MG TABLET PO SCH ×2 (12:11→17:14)
[2019-06-26] MEDS: FUROSEMIDE 40 MG TABLET PO SCH ×2 (12:11→17:14)
[2019-06-26] MEDS: FAMOTIDINE 20 MG TABLET PO SCH ×2 (12:11→22:12)
[2019-06-26] MEDS: POLYETHYLENE GLYCOL 3350 POWDER 17 GM/1 PACKET PO SCH (12:12)
[2019-06-26] MEDS: DOCUSATE SODIUM 100 MG CAPSULE PO SCH ×2 (12:16→17:15)
[2019-06-26] MEDS: POLYVINYL ALCOHOL 1.4% OPH SOLN 15 ML OU SCH ×4 (12:20→22:15)
[2019-06-26] MEDS: POLYMYXIN B SULFATE/TMP OPH SOLN 10 ML OU SCH ×4 (12:32→22:16)
[2019-06-26] MEDS: INSULIN GLARGINE,HUM.REC.ANLOG 1,000 UNIT/10 ML VIAL SUBCUT SCH (12:52)
[2019-06-26] MEDS ORDERED: INSULIN GLARGINE,HUM.REC.ANLOG 1,000 UNIT/10 ML VIAL (PYX) SUBCUT ONE (13:00)
[2019-06-26] MEDS: LEVALBUTEROL HCL NEB 0.63 MG/3 ML AMPUL NEB PRN (19:51)
[2019-06-27] MEDS: IPRATROPIUM BROMIDE 0.02% NEB 0.5 MG/2.5 ML AMPUL NEB SCH ×4 (00:06→23:53)
[2019-06-27] MEDS: LEVALBUTEROL HCL NEB 1.25 MG/3 ML AMPUL NEB SCH ×4 (00:06→23:53)
[2019-06-27] MEDS: HYDRALAZINE HCL 25 MG TABLET PO SCH ×3 (06:26→22:28)
[2019-06-27] MEDS: HEPARIN SOD (PORCINE) 5,000 UNIT/ML 1 ML VIAL SUBCUT SCH ×3 (06:26→22:28)
[2019-06-27] MEDS: PREGABALIN 50 MG CAPSULE PO SCH ×3 (06:26→22:28)
[2019-06-27] MEDS: DILTIAZEM HCL 30 MG TABLET PO SCH ×3 (06:26→22:28)
[2019-06-27] MEDS: PROMETHAZINE HCL 25 MG TABLET PO PRN (06:40)
[2019-06-27] MEDS: ACETYLCYSTEINE 20% SOLN 800 MG/4 ML VIAL.NEB NEB SCH ×2 (07:53→20:02)
[2019-06-27] MEDS: BUDESONIDE NEB 0.25 MG/2 ML AMPUL NEB SCH ×2 (07:57→20:02)
[2019-06-27] MEDS: INSULIN REG, HUMAN 100 UNIT/ML 3 ML VIAL (PYX) SUBCUT SCH ×4 (08:00→22:25)
[2019-06-27 08:53] LABS: HEMATOCRIT 35.7 % (36.0-47.0); HEMOGLOBIN 12.2 g/dL (12.0-15.5); MEAN CORPUSCULAR HEMOGLOBIN 29.4 pg (27.0-33.4); MEAN CORPUSCULAR HGB CONC 34.2 g/dL (32.0-36.0); MEAN CORPUSCULAR VOLUME 86 fl (80-97); PLATELET COUNT 236 10^3/uL (150-450); RED BLOOD COUNT 4.16 10^6/uL (3.72-5.28); RED CELL DISTRIBUTION WIDTH 14.5 % (11.5-14.0); WHITE BLOOD COUNT 8.8 10^3/uL (4.0-10.5)
--- NOTE | 2019-06-27 09:17 | PDOC PROGRESS REPORT ---
Subjective Progress Note for:: 06/27/19 Subjective:: 06/24/2019-no complaints this a.m. 06/25/2019-patient wishes to have concern with each meal, patient will have home eyedrops brought in and resume on Lasix. 06/26/2019-no complaints 06/27/2019-no complaints this a.m. Reason For Visit: PNEUMONIA Physical Exam Vital Signs: Temp Pulse Resp BP Pulse Ox 97.4 F 69 19 103/56 L 99 06/27/19 08:23 06/27/19 08:23 06/27/19 08:23 06/27/19 08:23 06/27/19 08:23 Intake & Output 06/26/19 06/27/19 06/28/19 06:59 06:59 06:59 Intake Total 2139 1121 Output Total 1677 8615 Balance 464 -2354 Weight 82.4 kg 88.6 kg General appearance: PRESENT: no acute distress, well-developed, well-nourished Neck exam: PRESENT: carotid bruit Respiratory exam: PRESENT: decreased breath sounds, symmetrical, unlabored Cardiovascular exam: PRESENT: RRR. ABSENT: diastolic murmur, rubs, systolic murmur Pulses: PRESENT: +1 pedal pulses bilateral Vascular exam: PRESENT: normal capillary refill GI/Abdominal exam: PRESENT: normal bowel sounds, soft. ABSENT: distended, guarding, mass, organolmegaly, rebound, tenderness Extremities exam: PRESENT: full ROM. ABSENT: calf tenderness, clubbing, pedal edema Neurological exam: PRESENT: alert, awake, oriented to person, oriented to place, oriented to time, oriented to situation, CN II-XII grossly intact. ABSENT: motor sensory deficit Psychiatric exam: PRESENT: appropriate affect, normal mood. ABSENT: homicidal ideation, suicidal ideation Skin exam: PRESENT: dry, intact, warm. ABSENT: cyanosis, rash Results Laboratory Results: 06/27/19 08:29 06/26/19 18:33 06/26/19 06/27/19 06/27/19 18:33 06:20 08:29 WBC Cancelled 8.8 RBC Cancelled 4.16 Hgb Cancelled 12.2 Hct Cancelled 35.7 L MCV Cancelled 86 MCH Cancelled 29.4 MCHC Cancelled 34.2 RDW Cancelled 14.5 H Plt Count Cancelled 236 Creatinine 1.47 H Est GFR ( Amer) 42 L 06/23/19 19:55 Catheterized Urine Urine Culture - Final Escherichia Coli Esbl Proteus Mirabilis 06/23/19 18:50 Troponin I 0.021 Impressions: Chest X-Ray 06/23/19 18:23 IMPRESSION: Right lower lobe pneumonia. Assessment and Plan - Diagnosis (1) HCAP (healthcare-associated pneumonia) Is this a current diagnosis for this admission?: Yes Plan: 06/24/2019-continue await cultures. Continue Vanco and meropenem other modalities including steroids, bronchodilators and supplemental oxygen as needed 06/25/2019-continues on vancomycin and meropenem. Await cultures. Continue steroids, bronchodilators and supplemental oxygen 06/26/2019-cultures returned showing Proteus Mirabella's susceptible to Cipro. Will DC Vanco and meropenem and placed on Cipro 500 mg p.o. twice daily. 06/27/2019-cultures returned showing an ESBL E. coli. Patient also has Proteus Mirabella's. I have DC'd Cipro at this time place patient on Zosyn per pharmacy dosing as both Mirabella's and E. coli are susceptible to Zosyn. (2) Acute and chronic respiratory failure with hypoxia Is this a current diagnosis for this admission?: Yes Plan: 06/24/2019-see #1 06/25/2019-see 1 06/26/2019 see #1 06/27/2019-see #1 (3) COPD (chronic obstructive pulmonary disease) Qualifiers: Emphysema type: unspecified Is this a current diagnosis for this admission?: Yes Plan: 06/24/2019-see #1 06/25/2019-see #1 06/26/2019-see #1 06/27/2019-see #1 (4) COR (chronic cor pulmonale) Is this a current diagnosis for this admission?: Yes Plan: 06/24/2019-chronic in nature stable at this time. 06/25/2019-stable 06/26/2019-stable 06/27/2019-stable (5) Chronic diastolic CHF (congestive heart failure) Is this a current diagnosis for this admission?: Yes Plan: 06/24/2019-chronic not in acute exacerbation. Continue to follow 06/25/2019-not in acute exacerbation. Will continue home Lasix 06/26/2019-stable 06/27/2019-stable (6) Coronary artery disease Qualifiers: Coronary Disease-Associated Artery/Lesion type: [place] artery Is this a current diagnosis for this admission?: Yes Plan: 06/24/2019-stable 06/25/2019-stable 06/26/2019-stable 06/27/2019-stable (7) DM type 2 (diabetes mellitus, type 2) Is this a current diagnosis for this admission?: Yes Plan: 06/24/2019-chronic stable 06/25/2019-stable 06/26/2019-stable 06/27/2019-stable (8) Gastroesophageal reflux disease Qualifiers: Esophagitis presence: without esophagitis Qualified Code(s): K21.9 - Gastro-esophageal reflux disease without esophagitis Is this a current diagnosis for this admission?: Yes Plan: 06/24/2019-stable 06/25/2019-stable 06/26/2019-stable 06/27/2019-stable (9) HTN (hypertension) Is this a current diagnosis for this admission?: Yes Plan: 06/24/2019-stable 06/25/2019-stable 06/26/2019-stable 06/27/2019-stable (10) Hyperlipidemia Qualifiers: Hyperlipidemia type: unspecified Qualified Code(s): E78.5 - Hyperlipidemia, unspecified Is this a current diagnosis for this admission?: Yes Plan: 06/24/2019-stable 06/25/2019-stable 06/26/2019-stable 06/27/2019-stable (11) Paroxysmal A-fib Is this a current diagnosis for this admission?: Yes Plan: 06/24/2019 sinus rhythm at this time continue to follow. 06/25/2019-remains in sinus rhythm continue to follow 06/26/2019-stable 06/27/2019-stable (12) ESBL (extended spectrum beta-lactamase) producing bacteria infection Is this a current diagnosis for this admission?: Yes Plan: 06/27/2019-urine culture showing E. coli ESBL. I placed patient on Zosyn per pharmacy dosing as this covers both E. coli ESBL and Proteus species. - Plan Summary Summary: Patient is admitted to the medical floor where she will receive routine supportive and symptomatic cares. She will be treated with IV antibiotics utilizing meropenem and vancomycin due to her previous history of MRSA and ESBL etiologies, pending culture results. She received supplemental potassium in the emergency room. She will be treated with an aggressive pulmonary toilet utilizing Xopenex, Atrovent and Pulmicort delivered via nebulizer. She will rec eive IV steroids and will receive supplemental oxygen as required to maintain an O2 sat in the 90 to 94% range. Patient's usual medications will be continued as appropriate once her med list has been reconciled. Daily CBCs, metabolic profiles and magnesium levels will be obtained as appropriate. Vancomycin levels will be obtained as needed with pharmacy to manage vancomycin dosing. - Time Time Spent with patient: 15-24 minutes - Inpatient Certification Based on my medical assessment, after consideration of the patient's comor bidities, presenting symptoms, or acuity I expect that the services needed warrant INPATIENT care.: Yes I certify that my determination is in accordance with my understanding of Medicare's requirements for reasonable and necessary INPATIENT services [42 CFR 412.3e].: Yes Medical Necessity: Need for IV Antibiotics
[2019-06-27] MEDS: FENTANYL 25 MCG/HR PATCH.TD72 TD SCH (09:45)
[2019-06-27] MEDS: RANOLAZINE 500 MG TAB.SR.12H PO SCH ×2 (09:50→22:23)
[2019-06-27] MEDS: FAMOTIDINE 20 MG TABLET PO SCH ×2 (09:50→22:28)
[2019-06-27] MEDS: FERROUS SULFATE 325 MG TABLET PO SCH ×2 (09:50→18:02)
[2019-06-27] MEDS: DOCUSATE SODIUM 100 MG CAPSULE PO SCH ×2 (09:51→18:02)
[2019-06-27] MEDS: POLYETHYLENE GLYCOL 3350 POWDER 17 GM/1 PACKET PO SCH (09:51)
[2019-06-27] MEDS: ACETAMINOPHEN 325 MG TABLET PO PRN (09:51)
[2019-06-27] MEDS: DULOXETINE HCL 30 MG CAPSULE.DR PO SCH (09:51)
[2019-06-27] MEDS: METOPROLOL SUCCINATE 25 MG TAB.SR.24H PO SCH (09:52)
[2019-06-27] MEDS: BUPROPION HCL 75 MG TABLET PO SCH ×2 (09:59→22:28)
[2019-06-27] MEDS: INSULIN GLARGINE,HUM.REC.ANLOG 1,000 UNIT/10 ML VIAL SUBCUT SCH (10:00)
[2019-06-27] MEDS: FUROSEMIDE 40 MG TABLET PO SCH ×2 (10:00→18:02)
[2019-06-27] MEDS: BUSPIRONE HCL 10 MG TABLET PO SCH ×2 (10:06→22:28)
[2019-06-27] MEDS: POLYVINYL ALCOHOL 1.4% OPH SOLN 15 ML OU SCH ×4 (10:09→22:32)
[2019-06-27] MEDS: POLYMYXIN B SULFATE/TMP OPH SOLN 10 ML OU SCH ×4 (10:10→22:33)
[2019-06-27] MEDS: FLUTICASONE/VILANTEROL 200-25 MCG/DOSE IH SCH (10:10)
[2019-06-27] MEDS: OLOPATADINE HCL 0.1% OPH SOLN 5 ML OU SCH (10:10)
[2019-06-27] MEDS: PIPERACILLIN SODIUM/TAZOBACTAM 3.375 GM in NORMAL SALINE 100 ML IV SCH ×3 (11:38→23:00)
[2019-06-27] MEDS: OXYCODONE HCL IR 5 MG TABLET PO PRN (13:43)
[2019-06-27] MEDS ORDERED: BISACODYL 10 MG SUPP.RECT PR ONE (14:30)
[2019-06-27] MEDS: LEVALBUTEROL HCL NEB 0.63 MG/3 ML AMPUL NEB PRN (20:02)
[2019-06-28] MEDS: DILTIAZEM HCL 30 MG TABLET PO SCH ×4 (05:19→22:19)
[2019-06-28] MEDS: HYDRALAZINE HCL 25 MG TABLET PO SCH ×3 (06:15→22:19)
[2019-06-28] MEDS: PIPERACILLIN SODIUM/TAZOBACTAM 3.375 GM in NORMAL SALINE 100 ML IV SCH ×4 (06:31→23:32)
[2019-06-28 06:32] LABS: HEMATOCRIT 36.3 % (36.0-47.0); HEMOGLOBIN 12.6 g/dL (12.0-15.5); MEAN CORPUSCULAR HEMOGLOBIN 29.5 pg (27.0-33.4); MEAN CORPUSCULAR HGB CONC 34.6 g/dL (32.0-36.0); MEAN CORPUSCULAR VOLUME 85 fl (80-97); PLATELET COUNT 241 10^3/uL (150-450); RED BLOOD COUNT 4.26 10^6/uL (3.72-5.28); RED CELL DISTRIBUTION WIDTH 14.1 % (11.5-14.0); WHITE BLOOD COUNT 10.6 10^3/uL (4.0-10.5)
[2019-06-28] MEDS: HEPARIN SOD (PORCINE) 5,000 UNIT/ML 1 ML VIAL SUBCUT SCH ×3 (06:36→22:18)
[2019-06-28] MEDS: OXYCODONE HCL IR 5 MG TABLET PO PRN (06:37)
[2019-06-28] MEDS: PROMETHAZINE HCL 25 MG TABLET PO PRN (06:37)
[2019-06-28] MEDS: PREGABALIN 50 MG CAPSULE PO SCH ×3 (06:41→22:18)
[2019-06-28 06:52] LABS: ANION GAP 13 (5-19); BLOOD UREA NITROGEN 46 mg/dL (7-20); CARBON DIOXIDE 30 mmol/L (22-30); CHLORIDE 96 mmol/L (98-107); GLUCOSE 97 mg/dL (75-110); POTASSIUM 3.6 mmol/L (3.6-5.0)
[2019-06-28] MEDS: DULOXETINE HCL 30 MG CAPSULE.DR PO SCH (07:45)
[2019-06-28] MEDS: METOPROLOL SUCCINATE 25 MG TAB.SR.24H PO SCH (07:45)
[2019-06-28] MEDS: INSULIN REG, HUMAN 100 UNIT/ML 3 ML VIAL (PYX) SUBCUT SCH ×4 (07:46→22:17)
[2019-06-28] MEDS: ACETAMINOPHEN 325 MG TABLET PO PRN (08:15)
[2019-06-28] MEDS: OLOPATADINE HCL 0.1% OPH SOLN 5 ML OU SCH (08:17)
[2019-06-28] MEDS: ACETYLCYSTEINE 20% SOLN 800 MG/4 ML VIAL.NEB NEB SCH ×2 (10:17→20:25)
[2019-06-28] MEDS: IPRATROPIUM BROMIDE 0.02% NEB 0.5 MG/2.5 ML AMPUL NEB SCH ×3 (10:17→23:54)
[2019-06-28] MEDS: BUDESONIDE NEB 0.25 MG/2 ML AMPUL NEB SCH ×2 (10:17→20:24)
[2019-06-28] MEDS: LEVALBUTEROL HCL NEB 1.25 MG/3 ML AMPUL NEB SCH ×3 (10:17→23:54)
[2019-06-28] MEDS: FERROUS SULFATE 325 MG TABLET PO SCH ×2 (10:24→17:33)
[2019-06-28] MEDS: FUROSEMIDE 40 MG TABLET PO SCH ×2 (10:24→17:33)
[2019-06-28] MEDS: BUSPIRONE HCL 10 MG TABLET PO SCH ×2 (10:24→22:18)
[2019-06-28] MEDS: DOCUSATE SODIUM 100 MG CAPSULE PO SCH ×2 (10:24→17:33)
[2019-06-28] MEDS: BUPROPION HCL 75 MG TABLET PO SCH ×2 (10:24→22:18)
[2019-06-28] MEDS: FAMOTIDINE 20 MG TABLET PO SCH ×2 (10:24→22:18)
[2019-06-28] MEDS: RANOLAZINE 500 MG TAB.SR.12H PO SCH ×2 (10:24→22:18)
[2019-06-28] MEDS: POLYETHYLENE GLYCOL 3350 POWDER 17 GM/1 PACKET PO SCH (10:25)
[2019-06-28] MEDS: POLYMYXIN B SULFATE/TMP OPH SOLN 10 ML OU SCH ×4 (10:25→22:20)
[2019-06-28] MEDS: FLUTICASONE/VILANTEROL 200-25 MCG/DOSE IH SCH (10:25)
[2019-06-28] MEDS: POLYVINYL ALCOHOL 1.4% OPH SOLN 15 ML OU SCH ×4 (10:25→22:20)
[2019-06-28] MEDS: INSULIN GLARGINE,HUM.REC.ANLOG 1,000 UNIT/10 ML VIAL SUBCUT SCH (10:25)
--- NOTE | 2019-06-28 19:21 | PDOC PROGRESS REPORT ---
Subjective Progress Note for:: 06/28/19 Subjective:: No acute events overnight. Reason For Visit: PNEUMONIA Physical Exam Vital Signs: Temp Pulse Resp BP Pulse Ox 98.2 F 82 17 100/81 94 06/28/19 16:34 06/28/19 16:34 06/28/19 16:34 06/28/19 16:34 06/28/19 16:34 Intake & Output 06/27/19 06/28/19 06/29/19 06:59 06:59 06:59 Intake Total 1121 1267 1060 Output Total 3475 2225 1050 Balance -3977 -148 10 Weight 88.6 kg 87 kg General appearance: PRESENT: no acute distress, obese, well-developed, well- nourished Respiratory exam: PRESENT: clear to auscultation elia. ABSENT: rales, rhonchi, wheezes Cardiovascular exam: PRESENT: RRR. ABSENT: diastolic murmur, rubs, systolic murmur GI/Abdominal exam: PRESENT: normal bowel sounds, soft. ABSENT: distended, guarding, mass, organolmegaly, rebound, tenderness Neurological exam: PRESENT: alert, awake, oriented to person, oriented to place, oriented to time, oriented to situation, CN II-XII grossly intact. ABSENT: motor sensory deficit Results Laboratory Results: 06/28/19 06:08 06/28/19 06:08 06/28/19 06/28/19 06:08 06:08 WBC 10.6 H RBC 4.26 Hgb 12.6 Hct 36.3 MCV 85 MCH 29.5 MCHC 34.6 RDW 14.1 H Plt Count 241 Sodium 138.7 Potassium 3.6 Chloride 96 L Carbon Dioxide 30 Anion Gap 13 BUN 46 H Creatinine 1.25 Est GFR ( Amer) 50 L Glucose 97 Calcium 9.0 06/23/19 18:50 Troponin I 0.021 Impressions: Chest X-Ray 06/23/19 18:23 IMPRESSION: Right lower lobe pneumonia. Assessment and Plan - Diagnosis (1) Acute and chronic respiratory failure with hypoxia Is this a current diagnosis for this admission?: Yes Plan: 06/24/2019-see #1 06/25/2019-see 1 06/26/2019 see #1 06/27/2019-see #1 (2) COPD (chronic obstructive pulmonary disease) Qualifiers: Emphysema type: unspecified Is this a current diagnosis for this admission?: Yes (3) COR (chronic cor pulmonale) Is this a current diagnosis for this admission?: Yes Plan: 06/24/2019-chronic in nature stable at this time. 06/25/2019-stable 06/26/2019-stable 06/27/2019-stable (4) Coronary artery disease Qualifiers: Coronary Disease-Associated Artery/Lesion type: [place] artery Is this a current diagnosis for this admission?: Yes (5) Diabetes mellitus Qualifiers: Diabetes mellitus type: type 2 Diabetes mellitus intermediate insulin use: with termination clerk use Diabetes mellitus complication detail: with chronic kidney disease Chronic kidney disease stage: stage 3 (moderate) Is this a current diagnosis for this admission?: Yes (6) ESBL (extended spectrum beta-lactamase) producing bacteria infection Is this a current diagnosis for this admission?: Yes Plan: 06/27/2019-urine culture showing E. coli ESBL. I placed patient on Zosyn per pharmacy dosing as this covers both E. coli ESBL and Proteus species. (7) Gastroesophageal reflux disease Qualifiers: Esophagitis presence: without esophagitis Qualified Code(s): K21.9 - Gastro-esophageal reflux disease without esophagitis Is this a current diagnosis for this admission?: Yes Plan: 06/24/2019-stable 06/25/2019-stable 06/26/2019-stable 06/27/2019-stable (8) HCAP (healthcare-associated pneumonia) Is this a current diagnosis for this admission?: Yes Plan: 06/24/2019-continue await cultures. Continue Vanco and meropenem other modalities including steroids, bronchodilators and supplemental oxygen as needed 06/25/2019-continues on vancomycin and meropenem. Await cultures. Continue steroids, bronchodilators and supplemental oxygen 06/26/2019-cultures returned showing Proteus Mirabella's susceptible to Cipro. Will DC Vanco and meropenem and placed on Cipro 500 mg p.o. twice daily. 06/27/2019-cultures returned showing an ESBL E. coli. Patient also has Proteus Mirabella's. I have DC'd Cipro at this time place patient on Zosyn per pharmacy dosing as both Mirabella's and E. coli are susceptible to Zosyn. (9) HTN (hypertension) Qualifiers: Hypertension type: essential hypertension Qualified Code(s): I10 - Essential (primary) hypertension Is this a current diagnosis for this admission?: Yes (10) Hyperlipidemia Qualifiers: Hyperlipidemia type: unspecified Qualified Code(s): E78.5 - Hyperlipidemia, unspecified Is this a current diagnosis for this admission?: Yes (11) Paroxysmal A-fib Is this a current diagnosis for this admission?: Yes Plan: 06/24/2019 sinus rhythm at this time continue to follow. 06/25/2019-remains in sinus rhythm continue to follow 06/26/2019-stable 06/27/2019-stable - Plan Summary Summary: Patient is admitted to the medical floor where she will receive routine supportive and symptomatic cares. She will be treated with IV antibiotics utilizing meropenem and vancomycin due to her previous history of MRSA and ESBL etiologies, pending culture results. She received supplemental potassium in the emergency room. She will be treated with an aggressive pulmonary toilet utilizing Xopenex, Atrovent and Pulmicort delivered via nebulizer. She will receive IV steroids and will receive supplemental oxygen as required to maintain an O2 sat in the 90 to 94% range. Patient's usual medications will be continued as appropriate once her med list has been reconciled. Daily CBCs, metabolic profiles and magnesium levels will be obtained as appropriate. Vancomycin levels will be obtained as needed with pharmacy to manage vancomycin dosing.
[2019-06-28] MEDS: LEVALBUTEROL HCL NEB 0.63 MG/3 ML AMPUL NEB PRN (20:25)
[2019-06-29 05:33] LABS: HEMOGLOBIN 12.7 g/dL (12.0-15.5); MEAN CORPUSCULAR HEMOGLOBIN 28.7 pg (27.0-33.4); MEAN CORPUSCULAR HGB CONC 33.4 g/dL (32.0-36.0); MEAN CORPUSCULAR VOLUME 86 fl (80-97); PLATELET COUNT 256 10^3/uL (150-450); RED BLOOD COUNT 4.43 10^6/uL (3.72-5.28); RED CELL DISTRIBUTION WIDTH 14.7 % (11.5-14.0); WHITE BLOOD COUNT 12.4 10^3/uL (4.0-10.5)
[2019-06-29] MEDS: HYDRALAZINE HCL 25 MG TABLET PO SCH ×2 (05:40→14:57)
[2019-06-29] MEDS: PIPERACILLIN SODIUM/TAZOBACTAM 3.375 GM in NORMAL SALINE 100 ML IV SCH ×2 (05:40→12:50)
[2019-06-29] MEDS: PREGABALIN 50 MG CAPSULE PO SCH ×2 (05:40→15:05)
[2019-06-29] MEDS: HEPARIN SOD (PORCINE) 5,000 UNIT/ML 1 ML VIAL SUBCUT SCH ×2 (05:40→15:05)
[2019-06-29] MEDS: DILTIAZEM HCL 30 MG TABLET PO SCH ×2 (05:41→14:58)
[2019-06-29 05:58] LABS: ALBUMIN 3.2 g/dL (3.5-5.0); ALKALINE PHOSPHATASE 85 U/L (38-126); ANION GAP 12 (5-19); ASPARTATE AMINO TRANSFERASE 35 U/L (14-36); BILIRUBIN,DIRECT 0.4 mg/dL (0.0-0.4); BILIRUBIN,TOTAL 0.5 mg/dL (0.2-1.3); BLOOD UREA NITROGEN 42 mg/dL (7-20); CALCIUM 9.4 mg/dL (8.4-10.2); CARBON DIOXIDE 32 mmol/L (22-30); CHLORIDE 96 mmol/L (98-107); GLUCOSE 98 mg/dL (75-110); POTASSIUM 3.6 mmol/L (3.6-5.0); TOTAL PROTEIN 6.6 g/dL (6.3-8.2)
[2019-06-29 06:07] LABS: ABSOLUTE LYMPHOCYTES# (MANUAL) 3.2 10^3/uL (0.5-4.7); ABSOLUTE MONOCYTES # (MANUAL) 0.9 10^3/uL (0.1-1.4); BASOPHILS % (MANUAL) 0 % (0-2); EOSINOPHILS % (MANUAL) 0 % (0-6); LYMPHOCYTES % (MANUAL) 26 % (13-45); METAMYELOCYTES % (MANUAL) 1 % (0-1); MONOCYTES % (MANUAL) 7 % (3-13); PLATELET COMMENT ADEQUATE; RBC MORPHOLOGY COMMENT NORMO-CYTIC/CHROMIC; SEGMENTED NEUTROPHILS % (MAN) 66 % (42-78); TOTAL CELLS COUNTED 100
[2019-06-29] MEDS: IPRATROPIUM BROMIDE 0.02% NEB 0.5 MG/2.5 ML AMPUL NEB SCH ×2 (07:59→15:53)
[2019-06-29] MEDS: LEVALBUTEROL HCL NEB 1.25 MG/3 ML AMPUL NEB SCH ×2 (07:59→15:53)
[2019-06-29] MEDS: ACETYLCYSTEINE 20% SOLN 800 MG/4 ML VIAL.NEB NEB SCH (07:59)
[2019-06-29] MEDS: BUDESONIDE NEB 0.25 MG/2 ML AMPUL NEB SCH (07:59)
[2019-06-29] MEDS: METOPROLOL SUCCINATE 25 MG TAB.SR.24H PO SCH (08:59)
[2019-06-29] MEDS: INSULIN REG, HUMAN 100 UNIT/ML 3 ML VIAL (PYX) SUBCUT SCH ×3 (08:59→17:18)
[2019-06-29] MEDS: DULOXETINE HCL 30 MG CAPSULE.DR PO SCH (08:59)
[2019-06-29] MEDS: BUPROPION HCL 75 MG TABLET PO SCH (09:46)
[2019-06-29] MEDS: FAMOTIDINE 20 MG TABLET PO SCH (09:46)
[2019-06-29] MEDS: RANOLAZINE 500 MG TAB.SR.12H PO SCH (09:46)
[2019-06-29] MEDS: BUSPIRONE HCL 10 MG TABLET PO SCH (09:47)
[2019-06-29] MEDS: FERROUS SULFATE 325 MG TABLET PO SCH (09:47)
[2019-06-29] MEDS: FUROSEMIDE 40 MG TABLET PO SCH (09:47)
[2019-06-29] MEDS: DOCUSATE SODIUM 100 MG CAPSULE PO SCH (09:48)
[2019-06-29] MEDS: OXYCODONE HCL IR 5 MG TABLET PO PRN (09:51)
[2019-06-29] MEDS: FLUTICASONE/VILANTEROL 200-25 MCG/DOSE IH SCH (09:58)
[2019-06-29] MEDS: OLOPATADINE HCL 0.1% OPH SOLN 5 ML OU SCH (09:58)
[2019-06-29] MEDS: POLYVINYL ALCOHOL 1.4% OPH SOLN 15 ML OU SCH ×2 (09:59→15:12)
[2019-06-29] MEDS: POLYMYXIN B SULFATE/TMP OPH SOLN 10 ML OU SCH ×2 (09:59→15:13)
[2019-06-29] MEDS: POLYETHYLENE GLYCOL 3350 POWDER 17 GM/1 PACKET PO SCH (09:59)
[2019-06-29] MEDS: INSULIN GLARGINE,HUM.REC.ANLOG 1,000 UNIT/10 ML VIAL SUBCUT SCH (10:51)
--- NOTE | 2019-06-29 14:15 | PDOC TRANSFER SUMMARY ---
Impression - Admit/DC Date/PCP Admission Date/Primary Care Provider: 06/23/19 22:42 KARTHIKEYAN HERNANDEZ MD Discharge Date: 06/29/19 - Discharge Diagnosis (1) ESBL (extended spectrum beta-lactamase) producing bacteria infection Is this a current diagnosis for this admission?: Yes (2) HCAP (healthcare-associated pneumonia) Is this a current diagnosis for this admission?: Yes (3) Acute and chronic respiratory failure with hypoxia Is this a current diagnosis for this admission?: Yes (4) COPD (chronic obstructive pulmonary disease) Is this a current diagnosis for this admission?: Yes (5) COR (chronic cor pulmonale) Is this a current diagnosis for this admission?: Yes (6) Coronary artery disease Is this a current diagnosis for this admission?: Yes (7) Diabetes mellitus Is this a current diagnosis for this admission?: Yes (8) Gastroesophageal reflux disease Is this a current diagnosis for this admission?: Yes (9) HTN (hypertension) Is this a current diagnosis for this admission?: Yes (10) Paroxysmal A-fib Is this a current diagnosis for this admission?: Yes - Additional Information Resuscitation Status: Do Not Resuscitate Discharge Diet: Cardiac, Diabetic Discharge Activity: Activity As Tolerated, Balance Activity w/Rest, Slowly Increase Activity Referrals: [facility] [Outside] Prescriptions: Amoxicillin/Potassium Clav [Augmentin 500-125 Tablet] 1 each PO Q8H #12 tablet Home Medications: Acetaminophen [Tylenol] 650 mg PO Q4HP PRN 01/02/19 Albuterol Sulfate [Proair HFA Inhalation Aerosol 8.5 gm MDI] 2 puff IH Q4HP PRN 01/02/19 Baclofen [Baclofen 10 mg Tablet] 5 mg PO Q6HP PRN 01/02/19 Benzonatate [Tessalon Perles 100 mg Capsule] 200 mg PO TIDP PRN 01/02/19 Budesonide [Pulmicort] 0.25 mg NEB RTBID 01/02/19 Buspirone HCl [Buspar 5 mg Tablet] 5 mg PO Q12 01/02/19 Diltiazem HCl [Cardizem 30 mg Tablet] 30 mg PO Q8 01/02/19 Docusate Sodium [Colace 100 mg Capsule] 100 mg PO BID 01/02/19 Ergocalciferol (Vitamin D2) [Drisdol 50,000 unit (1.25MG) Capsule] 50,000 unit PO [id number] 01/02/19 Fentanyl [Duragesic 25 mcg/hr Transdermal Patch] 1 each TD Q3D 01/02/19 Ferrous Sulfate [Feosol 325 mg Tablet] 325 mg PO BID 01/02/19 Fluticasone/Salmeterol [Advair 500-50 Diskus 14 Dose/Diskus] 1 puff IH Q12 01/02/19 Furosemide [Lasix 40 mg Tablet] 40 mg PO BID 01/02/19 Guaifenesin [Guaifenesin ER] 600 mg PO Q12 01/02/19 Guaifenesin/D-Methorphan Hb [Robitussin Dm S-F Cough Syrup] 10 ml PO Q4HP PRN 01/02/19 Hydralazine HCl [Apresoline 25 mg Tablet] 25 mg PO Q8 01/02/19 Insulin Detemir [Levemir] 32 unit SQ DAILY 01/02/19 Insulin Lispro [Humalog Insulin (Lispro) 100 unit/mL] 0 unit SUBCUT .SLD SCALE 01/02/19 Ipratropium/Albuterol Sulfate [Duoneb 3 ml Ampul] 3 ml NEB [id number] 01/02/19 Levalbuterol HCl [Xopenex Neb 0.63 mg/3 ml Ampul] 0.63 mg NEB RTQ8 01/02/19 Lidocaine [Lidoderm 5% (700 mg) Transdermal Patch] 2 patch TP DAILYP PRN 01/02/19 Magnesium Hydroxide [Milk of Magnesia 30 ml Udcup] 30 ml PO DAILYP PRN 01/02/19 Magnesium Oxide [Mag-Ox 400 mg Tablet] 400 mg PO Q2D 01/02/19 Melatonin 10 mg PO QHS 01/02/19 Metoprolol Succinate [Toprol Xl] 25 mg PO QAM 01/02/19 Nitroglycerin [Nitrostat 0.4 mg (1/150 Gr) Tabs 25/Bottle] 0.4 mg SL Q5MP PRN 01/02/19 Olopatadine HCl [Pataday] 1 drop OU QAM 01/02/19 Phenol/Sodium Phenolate [Chloraseptic Sore Throat [place] 177 ml] 1 sprays MM Q1HP PRN 01/02/19 Polymyxin B Sulf/Trimethoprim [Polytrim Eye Drops] 1 drop OU QID 01/02/19 Prednisone [Deltasone] 30 mg PO DAILY 01/02/19 Ranolazine [Ranexa 500 mg Tab.sr] 500 mg PO Q12 01/02/19 Roflumilast [Daliresp 500 mcg Tablet] 500 mcg PO QAM 01/02/19 Sennosides/Docusate 8.6-50 mg [Senna Plus Tablet] 1 tab PO QHS 01/02/19 Tiotropium [place] [Spiriva Handihaler 5 Cap/Kit (18 Mcg/Cap)] 1 cap IH QAM 01/02/19 Acetylcysteine [Mucomist 10% Neb 400 mg/4 mL Vial] 2 ml NEB RTQ6 03/31/19 Diclofenac Sodium [Voltaren] 2 gm TP Q8HP PRN 03/31/19 Fexofenadine HCl [Shaniqua] 60 mg PO QAM 03/31/19 Metolazone [Zaroxolyn 2.5 mg Tablet] 2.5 mg PO [id number] 03/31/19 Polyethylene Glycol 3350 [Miralax Powder 17 gm/Packet] 17 gm PO QAM 03/31/19 Polyvinyl Alcohol [Liquitears 1.4% Ophth Soln 15 ml] 1 drop OU QID 03/31/19 Potassium Chloride [K-Tab ER] 20 meq PO BID 03/31/19 Pregabalin [Lyrica 50 mg Capsule] 50 mg PO Q8 03/31/19 Fluticasone Propionate [Flonase Nasal [place] 50 Mcg/[place] 16 gm] 2 spray NASL Q12 spray.pump 04/02/19 Bupropion HCl [Wellbutrin Xl 150 mg 24hr Tablet] 150 mg PO QAM 06/24/19 Duloxetine HCl [Cymbalta 30 mg Capsule.dr] 90 mg PO QAM 06/24/19 Lactulose [Enulose] 15 ml PO BIDP PRN 06/24/19 Ondansetron HCl [Zofran 4 mg Tablet] 4 mg PO Q8HP PRN 06/24/19 Oxycodone HCl [Oxycodone HCl 10 MG Tablet] 10 mg PO Q8HP PRN 06/24/19 Simethicone [Mylicon 80 mg Chewable Tablet] 80 mg PO Q6HP PRN 06/24/19 Amoxicillin/Potassium Clav [Augmentin 500-125 Tablet] 1 each PO Q8H #12 tablet 06/29/19 History of Present Illiness History of Present Illness: Per H&P by Dr. Stiles: PORSHA WALDRON is a 74 year old female who presented from the long term with an acute history of dyspnea. The long term staff noted that she seemed to be having more labored breathing and her O2 sat was less than normal despite continuous oxygen per her orders. Additionally they felt that she was weak and less responsive/more confused than normal. Patient has dementia and is unable to contribute substantial reliable information to her medical history. Patient is noted to have had previous similar episodes on numerous occasions related to COPD and pneumonia. In the emergency room the patient was found to have a right lower lobe pneumonia and an elevated white blood count of 19,900. She was subsequently admitted to hospital for further evaluation and treatment. Hospital Course Hospital Course: The patient was admitted to the medical floor and monitored on continuous cardiac telemetry. She was empirically placed on IV meropenem and vancomycin due to her previous history of MRSA and ESBL etiologies. Current blood cultures are negative and urine culture again show ESBL E. coli and Proteus mirabilis. 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 Upon receipt of cultures and sensitivities, patient was transitioned to IV Zosyn. Patient was further supported with aggressive pulmonary toilet; supplemental oxygen, CPAP, scheduled and as needed nebulizer treatments, incentive spirometer and flutter valve. The patient's other chronic medical conditions remained stable. The patient is discharged to [facility] where she is an established resident. She is advised to complete her course of Augmentin for treatment of pneumonia. She is instructed to continue her other medications as prescribed. Recommend continued aggressive pulmonary toilet. Follow-up with primary care provider within 1 week. Return to the emergency department as needed for concerning symptoms. Physical Exam Vital Signs: Temp Pulse Resp BP Pulse Ox 98.1 F 77 16 104/46 L 98 06/29/19 10:39 06/29/19 10:39 06/29/19 10:39 06/29/19 10:39 06/29/19 10:39 Intake & Output 06/28/19 06/29/19 06/30/19 06:59 06:59 06:59 Intake Total 1267 1360 300 Output Total 2225 2450 400 Balance -958 -1090 -100 Weight 87 kg 87.8 kg General appearance: PRESENT: no acute distress, cooperative, disheveled, obese, well-developed, well-nourished Head exam: PRESENT: atraumatic, normocephalic Eye exam: PRESENT: conjunctival injection - chronic, conjunctiva pink, EOMI, PERRLA. ABSENT: scleral icterus Ear exam: PRESENT: normal external ear exam Mouth exam: PRESENT: moist, tongue midline Teeth exam: PRESENT: poor dentation Neck exam: ABSENT: carotid bruit, JVD, lymphadenopathy, thyromegaly Respiratory exam: PRESENT: clear to auscultation elia, symmetrical, unlabored, other - baseline oxygen requirement. ABSENT: rales, rhonchi, wheezes Cardiovascular exam: PRESENT: RRR, +S1, +S2. ABSENT: diastolic murmur, rubs, systolic murmur Pulses: PRESENT: normal dorsalis pedis pul Vascular exam: PRESENT: normal capillary refill GI/Abdominal exam: PRESENT: normal bowel sounds, soft. ABSENT: distended, guarding, mass, organolmegaly, rebound, tenderness Rectal exam: PRESENT: deferred Gentrourinary exam: PRESENT: indwelling catheter Extremities exam: ABSENT: calf tenderness, clubbing, full ROM - Limited RUE, pedal edema Neurological exam: PRESENT: alert, awake, oriented to person, oriented to place, oriented to time, oriented to situation, CN II-XII grossly intact. ABSENT: motor sensory deficit Psychiatric exam: PRESENT: appropriate affect, normal mood. ABSENT: homicidal ideation, suicidal ideation Skin exam: PRESENT: dry, intact, warm. ABSENT: cyanosis, rash Results Laboratory Results: WBC 12.4 10^3/uL (4.0-10.5) H 06/29/19 04:29 RBC 4.43 10^6/uL (3.72-5.28) 06/29/19 04:29 Hgb 12.7 g/dL (12.0-15.5) 06/29/19 04:29 Hct 38.0 % (36.0-47.0) 06/29/19 04:29 MCV 86 fl (80-97) 06/29/19 04:29 MCH 28.7 pg (27.0-33.4) 06/29/19 04:29 MCHC 33.4 g/dL (32.0-36.0) 06/29/19 04:29 RDW 14.7 % (11.5-14.0) H 06/29/19 04:29 Plt Count 256 10^3/uL (150-450) 06/29/19 04:29 Lymph % (Auto) Not Reportable 06/29/19 04:29 [place] % (Auto) Not Reportable 06/29/19 04:29 Eos % (Auto) Not Reportable 06/29/19 04:29 Baso % (Auto) Not Reportable 06/29/19 04:29 Absolute Neuts (auto) Not Reportable 06/29/19 04:29 Absolute Lymphs (auto) Not Reportable 06/29/19 04:29 Absolute Monos (auto) Not Reportable 06/29/19 04:29 Absolute Eos (auto) Not Reportable 06/29/19 04:29 Absolute Basos (auto) Not Reportable 06/29/19 04:29 Total Counted 100 06/29/19 04:29 Seg Neutrophils % Not Reportable 06/29/19 04:29 Seg Neuts % (Manual) 66 % (42-78) 06/29/19 04:29 Lymphocytes % (Manual) 26 % (13-45) 06/29/19 04:29 Monocytes % (Manual) 7 % (3-13) 06/29/19 04:29 Eosinophils % (Manual) 0 % (0-6) 06/29/19 04:29 Basophils % (Manual) 0 % (0-2) 06/29/19 04:29 Metamyelocytes % 1 % (0-1) 06/29/19 04:29 Abs Neuts (Manual) 8.3 10^3/uL (1.7-8.2) H 06/29/19 04:29 Abs Lymphs (Manual) 3.2 10^3/uL (0.5-4.7) 06/29/19 04:29 Abs Monocytes (Manual) 0.9 10^3/uL (0.1-1.4) 06/29/19 04:29 Absolute Eos (Manual) 0.0 10^3/uL (0.0-0.6) 06/29/19 04:29 Abs Basophils (Manual) 0.0 10^3/uL (0.0-0.2) 06/29/19 04:29 Platelet Estimate Cancelled 06/27/19 06:20 Platelet Comment ADEQUATE 06/29/19 04:29 RBC Morph Comment NORMO-CYTIC/CHROMIC 06/29/19 04:29 PT 14.4 SEC (11.4-15.4) 06/23/19 20:59 INR 1.11 06/23/19 20:59 APTT 27.2 SEC (23.5-35.8) 06/23/19 20:59 Carbonic Acid 1.34 mmol/L (1.05-1.35) 06/23/19 21:50 HCO3/H2CO3 Ratio 22:1 06/23/19 21:50 ABG pH 7.44 (7.35-7.45) 06/23/19 21:50 ABG pCO2 44.4 mmHg (35-45) 06/23/19 21:50 ABG pO2 69.2 mmHg (80-100) L 06/23/19 21:50 ABG HCO3 29.8 mmol/L (20-24) H 06/23/19 21:50 ABG Total CO2 31.1 mmol/L (21-25) H 06/23/19 21:50 ABG O2 Saturation 94.4 % (94-98) 06/23/19 21:50 ABG Base Excess 5.0 mmol/L 06/23/19 21:50 FiO2 3L 06/23/19 21:50 Sodium 140.3 mmol/L (137-145) 06/29/19 04:29 Potassium 3.6 mmol/L (3.6-5.0) 06/29/19 04:29 Chloride 96 mmol/L (98-107) L 06/29/19 04:29 Carbon Dioxide 32 mmol/L (22-30) H 06/29/19 04:29 Anion Gap 12 (5-19) 06/29/19 04:29 BUN 42 mg/dL (7-20) H 06/29/19 04:29 Creatinine 1.38 mg/dL (0.52-1.25) H 06/29/19 04:29 Est GFR ( Amer) 45 (>60) L 06/29/19 04:29 Est GFR (MDRD) Non-Af 37 (>60) L 06/29/19 04:29 Glucose 98 mg/dL (75-110) 06/29/19 04:29 POC Glucose 170 mg/dL (70-110) H 06/29/19 10:39 Hemoglobin A1c % 7.0 % (4.7-6.0) H 06/25/19 04:25 Lactic Acid 0.7 mmol/L (0.7-2.1) 06/24/19 02:51 Calcium 9.4 mg/dL (8.4-10.2) 06/29/19 04:29 Total Bilirubin 0.5 mg/dL (0.2-1.3) 06/29/19 04:29 Direct Bilirubin 0.4 mg/dL (0.0-0.4) 06/29/19 04:29 Neonat Total Bilirubin Not Reportable 06/29/19 04:29 Neonat Direct Bilirubin Not Reportable 06/29/19 04:29 Neonat Indirect Bili Not Reportable 06/29/19 04:29 AST 35 U/L (14-36) 06/29/19 04:29 ALT 49 U/L (<35) 06/29/19 04:29 Alkaline Phosphatase 85 U/L (38-126) 06/29/19 04:29 Troponin I 0.021 ng/mL 06/23/19 18:50 Total Protein 6.6 g/dL (6.3-8.2) 06/29/19 04:29 Albumin 3.2 g/dL (3.5-5.0) L 06/29/19 04:29 Urine Color GODFREY 06/23/19 19:55 Urine Appearance CLOUDY 06/23/19 19:55 Urine pH 8.0 (5.0-9.0) 06/23/19 19:55 Ur Specific [place] 1.015 06/23/19 19:55 Urine Protein 100 mg/dL (NEGATIVE) H 06/23/19 19:55 Urine Glucose (UA) NEGATIVE mg/dL (NEGATIVE) 06/23/19 19:55 Urine Ketones NEGATIVE mg/dL (NEGATIVE) 06/23/19 19:55 Urine Blood SMALL (NEGATIVE) H 06/23/19 19:55 Urine Nitrite (Reflex) POSITIVE (NEGATIVE) H 06/23/19 19:55 Urine Bilirubin NEGATIVE (NEGATIVE) 06/23/19 19:55 Urine Urobilinogen NEGATIVE mg/dL (<2.0) 06/23/19 19:55 Leukocyte Esterase Rfl LARGE (NEGATIVE) H 06/23/19 19:55 Urine RBC (Auto) 6 /HPF 06/23/19 19:55 Urine Bacteria (Auto) 2+ /HPF 06/23/19 19:55 Urine WBC (Reflex) 10 /HPF 06/23/19 19:55 Squamous Epi Cells Auto 3 /HPF 06/23/19 19:55 U Non-Squamous Epis Auto 1 /HPF 06/23/19 19:55 Triple Phos Cryst (Auto) RARE /HPF 06/23/19 19:55 Amorphous Sediment Auto TRACE /HPF 06/23/19 19:55 Urine Mucus (Auto) RARE /LPF 06/23/19 19:55 Urine Ascorbic Acid NEGATIVE (NEGATIVE) 06/23/19 19:55 Stl C. Difficile GDH Ag NEGATIVE (NEGATIVE) 06/23/19 20:57 Stl C.difficile Tox A&B NEGATIVE (NEGATIVE) 06/23/19 20:57 Time Trough Drawn 1833 06/26/19 18:33 Vancomycin Trough 9.0 ug/mL (5.0-20.0) 06/26/19 18:33 Slides for Path Review Cancelled 06/27/19 06:20 06/23/19 18:50 Troponin I 0.021 Impressions: Chest X-Ray 06/23/19 18:23 IMPRESSION: Right lower lobe pneumonia. Plan Plan of Treatment: The patient is discharged to [facility], where she is a long-term resident, in stable condition. She is to complete her course of Augmentin for treatment of pneumonia. She is not being treated for urinary tract infection; urine cultures reveal ESBL E. coli and Proteus Mirabella's, both of which the patient is known to be chronically colonized with. Recommend review of medication and decreasing dose or discontinuing as appropriate due to polypharmacy. Continue aggressive pulmonary toilet with incentive spirometer, flutter valve, position changing, and nebulizer treatments. Follow-up with primary care provider within 1 week. Return to the emergency department as needed for concerning symptoms. Time Spent: Greater than 30 Minutes Stroke Is this a Stroke Patient?: No Acute Heart Failure - Is this a Heart Failure Patient?: No
[2019-06-29] MEDS: ACETAMINOPHEN 325 MG TABLET PO PRN (15:05)
[2019-06-29 16:56] VITALS: BP 113/51
[2019-06-29] MEDS ORDERED: TOLTERODINE TARTRATE 1 MG TABLET PO SCH (22:00)
== END 2019-06-29 18:08 | DRG 194 ==
LOC: ER 18:16 → EH 22:42 → 4N 06-24 00:05
PROVIDERS: ADMIT Emergency Medicine; ATTEND Emergency Medicine
PROC: 5A09457 Assistance with Respiratory Ventilation, 24-96 Consecutive Hours, Continuous Positive Airway Pressure (ICD-10-PCS; principal; 2019-06-26)
DX: J18.9 Pneumonia, unspecified organism (principal); J44.0 Chronic obstructive pulmonary disease with (acute) lower respiratory infection; I50.32 Chronic diastolic (congestive) heart failure; Z16.12 Extended spectrum beta lactamase (ESBL) resistance; J96.11 Chronic respiratory failure with hypoxia; J44.9 Chronic obstructive pulmonary disease, unspecified; F01.50 Vascular dementia, unspecified severity, without behavioral disturbance, psychotic disturbance, mood disturbance, and anxiety; E11.9 Type 2 diabetes mellitus without complications; I11.0 Hypertensive heart disease with heart failure; K21.9 Gastro-esophageal reflux disease without esophagitis; M19.90 Unspecified osteoarthritis, unspecified site; I25.10 Atherosclerotic heart disease of native coronary artery without angina pectoris; I48.0 Paroxysmal atrial fibrillation; E87.5 Hyperkalemia; I27.81 Cor pulmonale (chronic); B95.2 Enterococcus as the cause of diseases classified elsewhere; B96.20 Unspecified Escherichia coli [E. coli] as the cause of diseases classified elsewhere; B96.4 Proteus (mirabilis) (morganii) as the cause of diseases classified elsewhere; F32.9 Major depressive disorder, single episode, unspecified; Z66 Do not resuscitate; I25.2 Old myocardial infarction; Z86.711 Personal history of pulmonary embolism; Z86.14 Personal history of Methicillin resistant Staphylococcus aureus infection; Z82.49 Family history of ischemic heart disease and other diseases of the circulatory system; Z83.3 Family history of diabetes mellitus; Z82.3 Family history of stroke; Z88.2 Allergy status to sulfonamides; Z88.8 Allergy status to other drugs, medicaments and biological substances; Z79.899 Other long term (current) drug therapy; Z87.440 Personal history of urinary (tract) infections; Z99.81 Dependence on supplemental oxygen; Z74.01 Bed confinement status; Z79.51 Long term (current) use of inhaled steroids; Z79.4 Long term (current) use of insulin
CPT/HCPCS: 36415; 71045; 80048; 80053; 80202; 81001; 82565; 82803; 82962; 83036; 83605; 84484; 85025; 85027; 85610; 85730; 87040; 87086; 87088; 87186; 87324; 87449; 93005; 93010; 94660; 96365; 99285; J1644; J1815; J2185; J2543; J2920; J2930; J3370; J3480; J3490; J7050; J7060; J7614; J7626

== ENCOUNTER 2019-07-12 16:59 | Inpatient (IN) | payer MEDICARE, MEDICAID ==
[2019-07-12 18:04] LABS: HEMATOCRIT 31.4 % (36.0-47.0); HEMOGLOBIN 10.4 g/dL (12.0-15.5); MEAN CORPUSCULAR HEMOGLOBIN 29.2 pg (27.0-33.4); MEAN CORPUSCULAR HGB CONC 33.1 g/dL (32.0-36.0); MEAN CORPUSCULAR VOLUME 88 fl (80-97); PLATELET COUNT 212 10^3/uL (150-450); RED BLOOD COUNT 3.56 10^6/uL (3.72-5.28); WHITE BLOOD COUNT 14.5 10^3/uL (4.0-10.5)
[2019-07-12 18:05] LABS: VENOUS BLOOD BASE EXCESS 7.8 mmol/L; VENOUS BLOOD HCO3 36.3 mmol/L (20-32); VENOUS BLOOD PH 7.36 (7.30-7.42)
[2019-07-12 18:06] LABS: VENOUS BLOOD PCO2 66.5 mmHg (35-63)
[2019-07-12 18:09] LABS: INTERNATIONAL RATION (INR) 0.92; PROTHROMBIN TIME 12.3 SEC (11.4-15.4)
[2019-07-12 18:14] LABS: ALBUMIN 3.8 g/dL (3.5-5.0); ALKALINE PHOSPHATASE 96 U/L (38-126); ANION GAP 11 (5-19); ASPARTATE AMINO TRANSFERASE 21 U/L (14-36); BILIRUBIN,DIRECT 0.4 mg/dL (0.0-0.4); BILIRUBIN,TOTAL 0.4 mg/dL (0.2-1.3); BLOOD UREA NITROGEN 55 mg/dL (7-20); CALCIUM 9.6 mg/dL (8.4-10.2); CARBON DIOXIDE 35 mmol/L (22-30); CHLORIDE 92 mmol/L (98-107); GLUCOSE 203 mg/dL (75-110); POTASSIUM 4.1 mmol/L (3.6-5.0); TOTAL PROTEIN 7.1 g/dL (6.3-8.2)
[2019-07-12 18:15] LABS: APPEARANCE,URINE CLEAR; BILIRUBIN,URINE NEGATIVE (NEGATIVE); COLOR,URINE YELLOW; GLUCOSE, URINE NEGATIVE (NEGATIVE); KETONES,URINE NEGATIVE (NEGATIVE); PROTEIN,URINE NEGATIVE (NEGATIVE); URINE SPECIFIC GRAVITY 1.012; UROBILINOGEN,URINE NEGATIVE mg/dL (<2.0)
[2019-07-12 18:29] LABS: ABSOLUTE LYMPHOCYTES# (MANUAL) 0.9 10^3/uL (0.5-4.7); BASOPHILS % (MANUAL) 0 % (0-2); EOSINOPHILS % (MANUAL) 0 % (0-6); LYMPHOCYTES % (MANUAL) 6 % (13-45); MONOCYTES % (MANUAL) 0 % (3-13); SEGMENTED NEUTROPHILS % (MAN) 94 % (42-78); TOTAL CELLS COUNTED 100
[2019-07-12 18:30] LABS: ANISOCYTOSIS SLIGHT; PLATELET COMMENT ADEQUATE
--- NOTE | 2019-07-12 19:08 | RADIOLOGY REPORT (SQ) ---
EXAM DESCRIPTION: CHEST SINGLE VIEW COMPLETED DATE/TIME: 07/12/2019 5:48 pm REASON FOR STUDY: SOB COMPARISON: Chest radiograph, 06/23/2019 EXAM PARAMETERS: NUMBER OF VIEWS: One view. TECHNIQUE: Single frontal radiographic view of the chest acquired. RADIATION DOSE: NA LIMITATIONS: None. FINDINGS: LUNGS AND PLEURA: Persistent but improving consolidation in the right lower lobe. Left ba silar atelectasis. Probable small bilateral pleural effusions. No pneumothorax. MEDIASTINUM AND HILAR STRUCTURES: No masses. Contour normal. HEART AND VASCULAR STRUCTURES: Heart normal in size. Normal vasculature. BONES: Severe osteoarthritis left glenohumeral joint. Chronic postsurgical or posttraumatic changes at the right shoulder. HARDWARE: None in the chest. OTHER: No other significant finding. IMPRESSION: Improving but persistent consolidation in the right lower lung, possibly representing re solving pneumonia. There is new atelectasis at the left lung base. Probable tiny bilateral pleural effusions. TECHNICAL DOCUMENTATION: JOB ID: [id number] [employer]- All Rights Reserved Reading location - IP/workstation name: [email or web address]
[2019-07-12] MEDS ORDERED: NORMAL SALINE IV ONE (19:26)
[2019-07-12] MEDS ORDERED: LEVOFLOXACIN 750 MG/D5W RTU 150 ML IV ONE (19:26)
[2019-07-12] MEDS ORDERED: VANCOMYCIN HCL INJ 1000 MG VIAL IV ONE (19:37)
[2019-07-12] MEDS ORDERED: MEROPENEM 1 GM VIAL IV ONE (19:37)
--- NOTE | 2019-07-12 20:16 | ER Document Report ---
Entered by PATSY FOWLER SCRIBE 07/12/191937 Acting as scribe for:FERCHO ORO IV, MD ED Respiratory Problem - General Chief Complaint: Shortness Of Breath Stated Complaint: BREATHING PROBLEMS Primary Care Provider: KARTHIKEYAN HERNANDEZ MD [Primary Care Provider] - Follow up as needed Mode of Arrival: Ambulatory Information source: Patient Notes: This 74 year old female that presents to the emergency department today with complaints of increased shortness of breath. Patient states that she lives at [facility] and she was admitted TRAVEL OUTSIDE OF THE [place] IN LAST 30 DAYS: No - Related Data Allergies/Adverse Reactions: Sulfa (Sulfonamide Antibiotics) Allergy (Intermediate, Verified 07/12/19 17:19) adhesive tape Allergy (Verified 07/12/19 17:19) atorvastatin calcium [From Lipitor] Allergy (Verified 07/12/19 17:19) celecoxib [From Celebrex] Allergy (Verified 07/12/19 17:19) Past Medical History - General Information source: Patient - Social History Smoking Status: Never Smoker Cigarette use (# per day): No Chew tobacco use (# tins/day): No Frequency of alcohol use: None Drug Abuse: None Lives with: Family Family History: Arthritis, CAD, CVA, DM, Hyperlipidemia, Hypertension Patient has suicidal ideation: No Patient has homicidal ideation: No - Past Medical History Cardiac Medical History: Reports: Hx Atrial Fibrillation, Hx Congestive Heart Failure - Diastolic dysfunction, Hx Coronary Artery Disease, Hx DVT, Hx Heart Attack, Hx Hypercholesterolemia, Hx Hypertension - essential, Hx Pulmonary Embolism, Hx Heart Murmur Pulmonary Medical History: Reports: Hx Asthma, Hx Bronchitis, Hx COPD, Hx Pneumonia - Recurrent MRSA pneumonia., Hx Respiratory Failure - Chronic, Hx Sleep Apnea - Uses C Pap Endocrine Medical History: Reports: Hx Diabetes Mellitus Type 1, Hx Diabetes Mellitus Type 2 Renal/ Medical History: Reports: Hx Renal Insufficiency GI Medical History: Reports: Hx Gastroesophageal Reflux Disease, Hx Hiatal Hernia Musculoskeletal Medical History: Reports Hx Arthritis, Reports Hx Fibromyalgia, Reports Hx Gout, Reports Hx Muscle Weakness Psychiatric Medical History: Reports: Hx Anxiety, Hx Depression Infectious Medical History: Reports: Hx C-Diff, Hx MRSA Past Surgical History: Reports: Hx Appendectomy, Hx Cholecystectomy, Hx Hysterectomy, Hx Orthopedic Surgery - Multiple left hip procedures, 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 - Immunizations Hx Diphtheria, Pertussis, Tetanus Vaccination: Yes Hx Pneumococcal Vaccination: 05/20/13 Review of Systems - Review of Systems Constitutional: No symptoms reported EENT: No symptoms reported Cardiovascular: No symptoms reported Respiratory: See HPI, Cough, Short of breath, Sputum, Wheezing Gastrointestinal: No symptoms reported Genitourinary: No symptoms reported Female Genitourinary: No symptoms reported Musculoskeletal: No symptoms reported Skin: No symptoms reported Hematologic/Lymphatic: No symptoms reported Neurological/Psychological: No symptoms reported -: Yes All other systems reviewed and negative Physical Exam - Vital signs Vitals: Pulse Ox 99 07/12/19 17:07 - General General appearance: Alert In distress: Mild - HEENT Head: Normocephalic, Atraumatic Eyes: Normal - Respiratory Respiratory status: Respiratory distress, Pursed lip breathing Breath sounds: Rales, Rhonchi, Wheezing - Cardiovascular Rhythm: Regular Heart sounds: Normal auscultation Murmur: No - Abdominal Inspection: Obese Distension: No distension Tenderness: Nontender - Extremities General upper extremity: Normal inspection. No: Edema General lower extremity: Edema - Neurological Neuro grossly intact: Yes Cognition: Normal - Psychological Associated symptoms: Normal affect, Normal mood - Skin Skin Temperature: Warm Skin Moisture: Dry Skin Color: Normal Course - Vital Signs Vital signs: Temp Pulse Resp BP Pulse Ox 98.2 F 24 H 141/61 H 96 07/12/19 19:01 07/12/19 19:01 07/12/19 19:01 07/12/19 19:01 - Laboratory Result Diagrams: 07/12/19 17:25 07/12/19 17:25 Laboratory results interpreted by me: 07/12/19 07/12/19 07/12/19 17:25 17:25 17:25 WBC 14.5 H RBC 3.56 L Hgb 10.4 L Hct 31.4 L RDW 15.0 H Seg Neuts % (Manual) 94 H Lymphocytes % (Manual) 6 L Monocytes % (Manual) 0 L Abs Neuts (Manual) 13.6 H Abs Monocytes (Manual) 0.0 L VBG pCO2 VBG HCO3 Chloride 92 L Carbon Dioxide 35 H BUN 55 H Creatinine 1.48 H Est GFR ( Amer) 41 L Est GFR (MDRD) Non-Af 34 L Glucose 203 H Lactic Acid 2.4 H Urine Nitrite (Reflex) Leukocyte Esterase Rfl 07/12/19 07/12/19 17:25 17:25 WBC RBC Hgb Hct RDW Seg Neuts % (Manual) Lymphocytes % (Manual) Monocytes % (Manual) Abs Neuts (Manual) Abs Monocytes (Manual) VBG pCO2 66.5 H* VBG HCO3 36.3 H Chloride Carbon Dioxide BUN Creatinine Est GFR ( Amer) Est GFR (MDRD) Non-Af Glucose Lactic Acid Urine Nitrite (Reflex) POSITIVE H Leukocyte Esterase Rfl MODERATE H - Diagnostic Test Radiology reviewed: Reports reviewed - Consults DR. BRENDA WEBBER Time consulted: 20:15 - HOSPITALIST Reason for consultation: 07/12/19 20:15 DYSPNEA, PNEUMONIA Consulted provider: will see as inpatient Discharge - Discharge Clinical Impression: HCAP (healthcare-associated pneumonia) Condition: Good Disposition: ADMITTED INPATIENT Admitting Provider: Go (Hospitalist) Unit Admitted: Medical Floor Referrals: KARTHIKEYAN HERNANDEZ MD [Primary Care Provider] - Follow up as needed I personally performed the services described in the documentation, reviewed and edited the documentation which was dictated to the scribe in my presence, and it accurately records my words and actions.
[2019-07-12] MEDS ORDERED: GUAIFENESIN SYRP 200 MG/10 ML UDC PO PRN (21:03)
[2019-07-12] MEDS ORDERED: DEXTROSE 50%-WATER 25 GM/50 ML DISP.SYRIN IV PRN ×2 (21:20)
[2019-07-12] MEDS ORDERED: DEXTROSE 40% GEL 15 GM TUBE PO PRN ×2 (21:20)
[2019-07-12] MEDS ORDERED: GLUCAGON,HUMAN RECOMB 1 MG INJ IM PRN (21:20)
[2019-07-12] MEDS ORDERED: MAG HYDROX/AL HYDROX/SIMETH SUSP 30 ML UDCUP PO PRN (21:21)
[2019-07-12] MEDS ORDERED: INSULIN REG, HUMAN 100 UNIT/ML 3 ML VIAL (PYX) SUBCUT PRN (21:21)
[2019-07-12] MEDS ORDERED: MORPHINE SULFATE 10 MG/ML INJ IV PRN ×2 (21:21)
[2019-07-12] MEDS ORDERED: LORAZEPAM INJ 2 MG/1 ML VIAL IV PRN (21:21)
[2019-07-12] MEDS ORDERED: MAGNESIUM HYDROXIDE SUSP 30 ML UDCUP PO PRN (21:21)
[2019-07-12] MEDS ORDERED: VANCOMYCIN HCL INJ 1000 MG VIAL IV SCH (22:00)
[2019-07-12] MEDS: HEPARIN SOD (PORCINE) 5,000 UNIT/ML 1 ML VIAL SUBCUT SCH (22:24)
[2019-07-12] MEDS ORDERED: LEVOFLOXACIN 500 MG/D5W RTU 500 MG/100 ML RTUPB IV ONE (23:00)
[2019-07-12] MEDS: RINGERS SOLUTION,LACTATED 1,000 ML IV PRN (23:37)
--- NOTE | 2019-07-13 00:14 | PDOC H&P ---
History of Present Illness Admission Date/PCP: 07/12/2019 20:17 KARTHIKEYAN HERNANDEZ MD Patient complains of: Dyspnea History of Present Illness: PORSHA WALDRON is a 74 year old female who presented to the emergency room with a 2-day history of dyspnea. The patient reports progressively worsening dyspnea over the last 2 days after completion of her antibiotic therapy for a pneumonia. She was admitted on 06/23/2019 and treated for pneumonia with discharge on 06/29/2019 and continued antibiotic therapy at the [facility] until 4 days ago. Within 48 hours of the discontinuation of antibiotic therapy her symptoms began and have been escalating since that time despite continuous supplemental oxygen therapy at 3 L/min. Her dyspnea is associated with a nonproductive cough and fatigue/lethargy. She denies other associated or accompanying signs and symptoms but admits her dyspnea gets worse with any activity. She has not identified any additional aggravating or ameliorating factors for her dyspnea. In the emergency room she was noted to have a white blood count of 14,500 with a lactic acid of 2.4 and a chest x-ray showing the continued presence of her right sided pneumonia though it did appear to be improved. She was subsequently admitted to the hospital for further evaluation and treatment for HCAP. Past Medical History Cardiac Medical History: Reports: Atrial Fibrillation, Congestive Heart Failure - Diastolic dysfunction, Coronary Artery Disease, DVT, Myocardial Infarction, Hyperlipidema, Hypertension - essential, Pulmonary Embolism, Heart Murmur Denies: Peripheral Vascular Disease Pulmonary Medical History: Reports: Asthma, Bronchitis, Chronic Obstructive Pulmonary Disease (COPD), Pneumonia - Recurrent MRSA pneumonia., Respiratory Failure - Chronic, Sleep Apnea - Uses C Pap Denies: Tuberculosis EENT Medical History: Denies: Cataracts, Ears - Hearing aids Neurological Medical History: Denies: Hemorrhagic CVA, Ischemic CVA, Seizures Endocrine Medical History: Reports: Diabetes Mellitus Type 2, Obesity Denies: Diabetes Mellitus Type 1, Hyperthyroidism, Hypothyroidism Renal/ Medical History: Reports: Chronic Kidney Disease Denies: Nephrolithiasis Malignancy Medical History: Reports: None GI Medical History: Reports: Gastroesophageal Reflux Disease, Hiatal Hernia Denies: Cirrhosis, Crohn's Disease, Hepatitis, Ulcerative Colitis Musculoskeltal Medical History: Reports: Arthritis, Fibromyalgia, Gout Skin Medical History: Denies: Eczema, Psoriasis Psychiatric Medical History: Reports: Dementia - Mild dementia, Depression Denies: Alcohol Dependency, Substance Abuse, Tobacco Dependency Traumatic Medical History: Reports: None Hematology: Reports: Anemia Denies: Bleeding Tendencies Infectious Medical History: Reports: Clostridium Difficile, Methicillin- Resistant Staph Aureus, Other Infectious History Note: ESBL E. coli urinary tract infections Past Surgical History Past Surgical History: Reports: Appendectomy, Cholecystectomy, Hysterectomy, Orthopedic Surgery - Multiple left hip procedures, 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 Social History Information Source: Patient Lives with: [facility] Smoking Status: Former Smoker Electronic Cigarette use?: No Frequency of Alcohol Use: None Hx Recreational Drug Use: No Drugs: None Hx Prescription Drug Abuse: No - Advance Directive Resuscitation Status: Do Not Resuscitate Surrogate healthcare decision maker:: Vera Zamora Family History Family History: Arthritis, CAD, CVA, DM, Hyperlipidemia, Hypertension Parental Family History Reviewed: Yes Children Family History Reviewed: No Sibling(s) Family History Reviewed.: Yes Medication/Allergy Home Medications: Acetaminophen [Tylenol] 650 mg PO Q4HP PRN 01/02/19 Albuterol Sulfate [Proair HFA Inhalation Aerosol 8.5 gm MDI] 2 puff IH Q4HP PRN 01/02/19 Baclofen [Baclofen 10 mg Tablet] 5 mg PO Q6HP PRN 01/02/19 Benzonatate [Tessalon Perles 100 mg Capsule] 200 mg PO TIDP PRN 01/02/19 Budesonide [Pulmicort] 0.25 mg NEB RTBID 01/02/19 Buspirone HCl [Buspar 5 mg Tablet] 5 mg PO Q12 01/02/19 Diltiazem HCl [Cardizem 30 mg Tablet] 30 mg PO Q8 01/02/19 Docusate Sodium [Colace 100 mg Capsule] 100 mg PO BID 01/02/19 Ergocalciferol (Vitamin D2) [Drisdol 50,000 unit (1.25MG) Capsule] 50,000 unit PO [id number] 01/02/19 Fentanyl [Duragesic 25 mcg/hr Transdermal Patch] 1 each TD Q3D 01/02/19 Ferrous Sulfate [Feosol 325 mg Tablet] 325 mg PO BID 01/02/19 Fluticasone/Salmeterol [Advair 500-50 Diskus 14 Dose/Diskus] 1 puff IH Q12 01/02/19 Furosemide [Lasix 40 mg Tablet] 40 mg PO BID 01/02/19 Guaifenesin [Guaifenesin ER] 600 mg PO Q12 01/02/19 Guaifenesin/D-Methorphan Hb [Robitussin Dm S-F Cough Syrup] 10 ml PO Q4HP PRN 01/02/19 Hydralazine HCl [Apresoline 25 mg Tablet] 25 mg PO Q8 01/02/19 Insulin Detemir [Levemir] 32 unit SQ DAILY 01/02/19 Insulin Lispro [Humalog Insulin (Lispro) 100 unit/mL] 0 unit SUBCUT .SLD SCALE 01/02/19 Ipratropium/Albuterol Sulfate [Duoneb 3 ml Ampul] 3 ml NEB [id number] 01/02/19 Levalbuterol HCl [Xopenex Neb 0.63 mg/3 ml Ampul] 0.63 mg NEB RTQ8 01/02/19 Lidocaine [Lidoderm 5% (700 mg) Transdermal Patch] 2 patch TP DAILYP PRN 01/02/19 Magnesium Hydroxide [Milk of Magnesia 30 ml Udcup] 30 ml PO DAILYP PRN 01/02/19 Magnesium Oxide [Mag-Ox 400 mg Tablet] 400 mg PO Q2D 01/02/19 Melatonin 10 mg PO QHS 01/02/19 Metoprolol Succinate [Toprol Xl] 25 mg PO QAM 01/02/19 Nitroglycerin [Nitrostat 0.4 mg (1/150 Gr) Tabs 25/Bottle] 0.4 mg SL Q5MP PRN 01/02/19 Olopatadine HCl [Pataday] 1 drop OU QAM 01/02/19 Phenol/Sodium Phenolate [Chloraseptic Sore Throat [place] 177 ml] 1 sprays MM Q1HP PRN 01/02/19 Polymyxin B Sulf/Trimethoprim [Polytrim Eye Drops] 1 drop OU QID 01/02/19 Prednisone [Deltasone] 30 mg PO DAILY 01/02/19 Ranolazine [Ranexa 500 mg Tab.sr] 500 mg PO Q12 01/02/19 Roflumilast [Daliresp 500 mcg Tablet] 500 mcg PO QAM 01/02/19 Sennosides/Docusate 8.6-50 mg [Senna Plus Tablet] 1 tab PO QHS 01/02/19 Tiotropium [place] [Spiriva Handihaler 5 Cap/Kit (18 Mcg/Cap)] 1 cap IH QAM 01/02/19 Acetylcysteine [Mucomist 10% Neb 400 mg/4 mL Vial] 2 ml NEB RTQ6 03/31/19 Diclofenac Sodium [Voltaren] 2 gm TP Q8HP PRN 03/31/19 Fexofenadine HCl [Shaniqua] 60 mg PO QAM 03/31/19 Metolazone [Zaroxolyn 2.5 mg Tablet] 2.5 mg PO MOTUWETHFR 03/31/19 Polyethylene Glycol 3350 [Miralax Powder 17 gm/Packet] 17 gm PO QAM 03/31/19 Polyvinyl Alcohol [Liquitears 1.4% Ophth Soln 15 ml] 1 drop OU QID 03/31/19 Potassium Chloride [K-Tab ER] 20 meq PO BID 03/31/19 Pregabalin [Lyrica 50 mg Capsule] 50 mg PO Q8 03/31/19 Fluticasone Propionate [Flonase Nasal [place] 50 Mcg/[place] 16 gm] 2 spray NASL Q12 spray.pump 04/02/19 Bupropion HCl [Wellbutrin Xl 150 mg 24hr Tablet] 150 mg PO QAM 06/24/19 Duloxetine HCl [Cymbalta 30 mg Capsule.dr] 90 mg PO QAM 06/24/19 Lactulose [Enulose] 15 ml PO BIDP PRN 06/24/19 Ondansetron HCl [Zofran 4 mg Tablet] 4 mg PO Q8HP PRN 06/24/19 Oxycodone HCl [Oxycodone HCl 10 MG Tablet] 10 mg PO Q8HP PRN 06/24/19 Simethicone [Mylicon 80 mg Chewable Tablet] 80 mg PO Q6HP PRN 06/24/19 Amoxicillin/Potassium Clav [Augmentin 500-125 Tablet] 1 each PO Q8H #12 tablet 06/29/19 Allergies/Adverse Reactions: Sulfa (Sulfonamide Antibiotics) Allergy (Intermediate, Verified 07/12/19 17:19) adhesive tape Allergy (Verified 07/12/19 17:19) atorvastatin calcium [From Lipitor] Allergy (Verified 07/12/19 17:19) celecoxib [From Celebrex] Allergy (Verified 07/12/19 17:19) latex Allergy (Uncoded 07/12/19 23:54) Review of Systems Constitutional: PRESENT: fatigue, other - Lethargy. ABSENT: anorexia, chills, fever(s) Eyes: ABSENT: visual disturbances, other - Eye pain Ears: ABSENT: hearing changes, other - Ear pain Nose, Mouth, and Throat: ABSENT: headache(s), mouth pain, sore throat Cardiovascular: PRESENT: as per HPI, dyspnea on exertion. ABSENT: chest pain, edema, orthropnea, palpitations Respiratory: PRESENT: as per HPI, cough, dyspnea. ABSENT: sputum Gastrointestinal: ABSENT: abdominal pain, constipation, diarrhea, nausea, vomiting Genitourinary: PRESENT: other - Foul-smelling urine from her Barton catheter. ABSENT: dysuria, hematuria Musculoskeletal: PRESENT: back pain - Chronic. ABSENT: joint swelling, muscle weakness Integumentary: ABSENT: pruritus, rash Neurological: ABSENT: confusion, convulsions, focal weakness, memory loss, syncope Psychiatric: ABSENT: anxiety, depression Endocrine: ABSENT: cold intolerance, heat intolerance, polydipsia, polyphagia Hematologic/Lymphatic: ABSENT: easy bleeding, easy bruising Allergic/Immunologic: ABSENT: seasonal rhinorrhea Physical Exam Vital Signs: Temp Pulse Resp BP Pulse Ox 98.2 F 24 H 141/61 H 96 07/12/19 19:01 07/12/19 19:01 07/12/19 19:01 07/12/19 19:01 Intake & Output 07/10/19 07/11/19 07/12/19 23:59 23:59 23:59 Weight 85.275 kg General appearance: PRESENT: no acute distress, cooperative, obese, other - On supplemental oxygen on my evaluation, bedbound Head exam: PRESENT: atraumatic, normocephalic Eye exam: PRESENT: conjunctiva pink. ABSENT: conjunctival injection, scleral icterus Ear exam: PRESENT: normal external ear exam. ABSENT: bleeding, drainage Mouth exam: PRESENT: dry mucosa, neck supple Neck exam: PRESENT: JVD. ABSENT: thyromegaly, tracheal deviation Respiratory exam: PRESENT: decreased breath sounds - Mildly decreased breath sounds noted throughout all lung mead, prolonged expiratory phas - Mildly prolonged expiratory phase noted in all mead, rales - Course rales noted in the right lower lung mead, rhonchi - Intermittent coarse rhonchi present in the central mead of the right lung that clear with cough, symmetrical, wheezes - Mild expiratory wheezes present throughout all mead Cardiovascular exam: PRESENT: irregular rhythm - Irregularly irregular rate and rhythm. ABSENT: clicks, gallop, rubs Pulses: PRESENT: normal radial pulses, normal dorsalis pedis pul Vascular exam: PRESENT: normal capillary refill. ABSENT: pallor GI/Abdominal exam: PRESENT: normal bowel sounds, soft Rectal exam: PRESENT: deferred Extremities exam: ABSENT: joint swelling, pedal edema Musculoskeletal exam: PRESENT: other - Bedbound, mild generalized muscular atrophy in bilateral lower extremities. ABSENT: ambulatory, deformity, dislocation Neurological exam: PRESENT: alert, oriented to person, oriented to place, oriented to time, oriented to situation, CN II-XII grossly intact, other - Bedbound. ABSENT: motor sensory deficit Psychiatric exam: PRESENT: appropriate affect, normal mood Skin exam: PRESENT: dry, intact, warm. ABSENT: jaundice, rash, urticaria Results Laboratory Results: 07/12/19 17:25 07/12/19 17:25 07/12/19 07/12/19 07/12/19 17:25 17:25 17:25 WBC 14.5 H RBC 3.56 L Hgb 10.4 L Hct 31.4 L MCV 88 MCH 29.2 MCHC 33.1 RDW 15.0 H Plt Count 212 Seg Neutrophils % Not Reportable VBG pH VBG pCO2 VBG HCO3 VBG Base Excess Sodium 137.7 Potassium 4.1 Chloride 92 L Carbon Dioxide 35 H Anion Gap 11 BUN 55 H Creatinine 1.48 H Est GFR ( Amer) 41 L Glucose 203 H Lactic Acid 2.4 H Calcium 9.6 Total Bilirubin 0.4 AST 21 Alkaline Phosphatase 96 Total Protein 7.1 Albumin 3.8 Urine Color Urine Appearance Urine pH Ur Specific [place] Urine Protein Urine Glucose (UA) Urine Ketones Urine Blood Urine RBC (Auto) 07/12/19 07/12/19 17:25 17:25 WBC RBC Hgb Hct MCV MCH MCHC RDW Plt Count Seg Neutrophils % VBG pH 7.36 VBG pCO2 66.5 H* VBG HCO3 36.3 H VBG Base Excess 7.8 Sodium Potassium Chloride Carbon Dioxide Anion Gap BUN Creatinine Est GFR ( Amer) Glucose Lactic Acid Calcium Total Bilirubin AST Alkaline Phosphatase Total Protein Albumin Urine Color YELLOW Urine Appearance CLEAR Urine pH 7.0 Ur Specific [place] 1.012 Urine Protein NEGATIVE Urine Glucose (UA) NEGATIVE Urine Ketones NEGATIVE Urine Blood NEGATIVE Urine RBC (Auto) 0 Impressions: Chest X-Ray 07/12/19 17:54 IMPRESSION: Improving but persistent consolidation in the right lower lung, possibly representing resolving pneumonia. There is new atelectasis at the left lung base. Probable tiny bilateral pleural effusions. Assessment and Plan - Diagnosis (1) Acute on chronic respiratory failure with hypoxia and hypercapnia Is this a current diagnosis for this admission?: Yes (2) Acute kidney injury superimposed on chronic kidney disease Is this a current diagnosis for this admission?: Yes (3) HCAP (healthcare-associated pneumonia) Is this a current diagnosis for this admission?: Yes (4) COPD (chronic obstructive pulmonary disease) Qualifiers: Emphysema type: unspecified Is this a current diagnosis for this admission?: Yes (5) Chronic diastolic CHF (congestive heart failure) Is this a current diagnosis for this admission?: Yes (6) Obstructive sleep apnea Is this a current diagnosis for this admission?: Yes (7) Coronary artery disease Qualifiers: Coronary Disease-Associated Artery/Lesion type: [place] artery [place] vs. transplanted heart: [place] heart Associated angina: without angina Qualified Code(s): I25.10 - Atherosclerotic heart disease of [place] coronary artery without angina pectoris Is this a current diagnosis for this admission?: Yes (8) Diabetes mellitus type 2 in obese Is this a current diagnosis for this admission?: Yes (9) HTN (hypertension) Qualifiers: Hypertension type: essential hypertension Qualified Code(s): I10 - Essential (primary) hypertension Is this a current diagnosis for this admission?: Yes (10) Hyperlipidemia Qualifiers: Hyperlipidemia type: unspecified Qualified Code(s): E78.5 - Hyperlipidemia, unspecified Is this a current diagnosis for this admission?: Yes (11) Bedbound Is this a current diagnosis for this admission?: Yes (12) Chronic indwelling Barton catheter Is this a current diagnosis for this admission?: Yes (13) Obesity (BMI 30.0-34.9) Is this a current diagnosis for this admission?: Yes (14) Polypharmacy Is this a current diagnosis for this admission?: Yes (15) Chronic pain syndrome Is this a current diagnosis for this admission?: Yes (16) Opiate dependence, continuous Is this a current diagnosis for this admission?: Yes - Plan Summary Summary: Patient is admitted to the medical floor where she will receive routine supportive and symptomatic cares. She will be treated with an aggressive pulmonary toilet utilizing nebulized Xopenex, Atrovent, Pulmicort and Mucomyst. She will be treated with IV antibiotics initially utilizing meropenem and vancomycin pending culture results. Serial lactic acids will be performed. Patient received a sepsis bolus of IV fluids in the emergency room per ER report. Further fluids will be administered as needed based on clinical observation and laboratory results. Patient is DNR status. Patient will receive her usual medications and treatments only as appropriate for her chronic medical problems, though significant reduction in polypharmacy should be achieved prior to discharge. CBCs, metabolic profiles and magnesium levels will be obtained on a regular basis as required. Patient will be on a diabetic and cardiac restricted diet. Before meals and at bedtime Accu-Cheks will be obtained with sliding scale insulin for hyperglycemia and a hypoglycemic protocol in place. - Time Time Spent with patient: Less than 15 minutes Medications reviewed and adjusted accordingly: Yes Anticipated discharge: SNF - Inpatient Certification Based on my medical assessment, after consideration of the patient's comorbidities, presenting symptoms, or acuity I expect that the services needed warrant INPATIENT care.: Yes I certify that my determination is in accordance with my understanding of Medicare's requirements for reasonable and necessary INPATIENT services [42 CFR 412.3e].: Yes Medical Necessity: Failure to Improve With Outpatient Therapy, Significant Comorbidiites Make Outpatient Treatment Too Risky, Need Close Monitoring Due to Risk of Patient Decompensation, Need for Nebulizer Therapy and Monitoring of Response, Need for IV Antibiotics, Risk of Complication if Not Cared For in Hospital
[2019-07-13] MEDS: MORPHINE SULFATE 10 MG/ML INJ IV PRN ×4 (00:17→20:39)
[2019-07-13] MEDS: LEVALBUTEROL HCL NEB 1.25 MG/3 ML AMPUL NEB SCH ×3 (00:22→15:36)
[2019-07-13] MEDS: IPRATROPIUM BROMIDE 0.02% NEB 0.5 MG/2.5 ML AMPUL NEB SCH ×3 (00:22→15:36)
[2019-07-13] MEDS ORDERED: MEROPENEM 1 GM VIAL IV PRN (04:00)
[2019-07-13 05:27] LABS: HEMATOCRIT 27.2 % (36.0-47.0); HEMOGLOBIN 9.3 g/dL (12.0-15.5); MEAN CORPUSCULAR HEMOGLOBIN 29.8 pg (27.0-33.4); MEAN CORPUSCULAR HGB CONC 34.3 g/dL (32.0-36.0); MEAN CORPUSCULAR VOLUME 87 fl (80-97); PLATELET COUNT 169 10^3/uL (150-450); RED BLOOD COUNT 3.13 10^6/uL (3.72-5.28); RED CELL DISTRIBUTION WIDTH 14.6 % (11.5-14.0); WHITE BLOOD COUNT 11.4 10^3/uL (4.0-10.5)
[2019-07-13 05:55] LABS: ANION GAP 5 (5-19); BLOOD UREA NITROGEN 43 mg/dL (7-20); CARBON DIOXIDE 37 mmol/L (22-30); CHLORIDE 96 mmol/L (98-107); GLUCOSE 91 mg/dL (75-110); POTASSIUM 3.6 mmol/L (3.6-5.0)
[2019-07-13] MEDS ORDERED: MEROPENEM 1 GM in NORMAL SALINE 50 ML IV SCH (06:00)
[2019-07-13] MEDS: BACLOFEN 10 MG TABLET PO SCH ×3 (06:29→21:39)
[2019-07-13] MEDS: HEPARIN SOD (PORCINE) 5,000 UNIT/ML 1 ML VIAL SUBCUT SCH ×3 (06:29→21:37)
[2019-07-13] MEDS: PANTOPRAZOLE SODIUM 40 MG TABLET.DR PO SCH (06:29)
[2019-07-13] MEDS: ACETAMINOPHEN 325 MG TABLET PO PRN ×2 (06:37→15:33)
[2019-07-13] MEDS: RINGERS SOLUTION,LACTATED 1,000 ML IV PRN ×3 (06:43→21:47)
[2019-07-13] MEDS: ACETYLCYSTEINE 20% SOLN 800 MG/4 ML VIAL.NEB NEB SCH ×2 (08:38→19:49)
[2019-07-13] MEDS: BUDESONIDE NEB 0.5 MG/2 ML AMPUL NEB SCH ×2 (08:38→19:49)
[2019-07-13] MEDS: DOCUSATE SODIUM 100 MG CAPSULE PO SCH ×2 (11:13→18:35)
[2019-07-13] MEDS: MEROPENEM 1 GM in NORMAL SALINE 50 ML IV SCH ×2 (11:13→17:35)
[2019-07-13] MEDS: RANOLAZINE 500 MG TAB.SR.12H PO SCH ×2 (11:13→21:39)
[2019-07-13] MEDS: LOSARTAN POTASSIUM 50 MG TABLET PO SCH (11:13)
[2019-07-13] MEDS: DULOXETINE HCL 30 MG CAPSULE.DR PO SCH ×2 (11:14→21:39)
[2019-07-13] MEDS: TORSEMIDE 20 MG TABLET PO SCH (11:14)
[2019-07-13] MEDS: PREGABALIN 50 MG CAPSULE PO SCH ×2 (11:14→21:39)
[2019-07-13] MEDS: METOPROLOL SUCCINATE 25 MG TAB.SR.24H PO SCH (11:14)
[2019-07-13] MEDS: BUPROPION HCL 75 MG TABLET PO SCH ×2 (11:14→21:40)
[2019-07-13] MEDS: MAGNESIUM OXIDE 400 MG TABLET PO SCH (11:14)
--- NOTE | 2019-07-13 12:22 | PDOC PROGRESS REPORT ---
Subjective Progress Note for:: 07/13/19 Reason For Visit: ACUTE RESPIRATORY FAILURE WITH HYPOXIA 07/13/2019 She was admitted last night through the emergency room for 2-day history of shortness of breath Physical Exam Vital Signs: Temp Pulse Resp BP Pulse Ox 98.8 F 65 16 112/57 L 95 07/13/19 07:36 07/13/19 08:43 07/13/19 08:43 07/13/19 07:36 07/13/19 08:43 Pulse Oximeter Continuous Start: 07/12/19 21 :03 Freq: RTQ4 Status: Active Protocol: Document 07/13/19 08:43 J (Rec: 07/13/19 09:11 [id number]) Pulse Oximetry Assessment Oxygen Saturation (92-100) 95 Oxygen Flow Rate (L/min) 2 Oxygen Delivery Method Nasal Cannula Equipment Usage Equipment in Use Continuous SpO2 Machine # 10 Intake & Output 07/12/19 07/13/19 07/14/19 06:59 06:59 06:59 Intake Total 1100 50 Balance 1100 50 Weight 91.4 kg General appearance: PRESENT: no acute distress Respiratory exam: PRESENT: decreased breath sounds, wheezes Cardiovascular exam: PRESENT: irregular rhythm. ABSENT: diastolic murmur, rubs, systolic murmur Neurological exam: PRESENT: alert, awake, oriented to person, oriented to place, oriented to time, oriented to situation, CN II-XII grossly intact, other - She is able to tell me about her past medical history. ABSENT: motor sensory deficit Psychiatric exam: PRESENT: appropriate affect, normal mood. ABSENT: homicidal ideation, suicidal ideation Results Laboratory Results: 07/13/19 05:11 07/13/19 05:11 07/12/19 07/12/19 07/12/19 17:25 17:25 17:25 WBC 14.5 H RBC 3.56 L Hgb 10.4 L Hct 31.4 L MCV 88 MCH 29.2 MCHC 33.1 RDW 15.0 H Plt Count 212 Seg Neutrophils % Not Reportable VBG pH VBG pCO2 VBG HCO3 VBG Base Excess Sodium 137.7 Potassium 4.1 Chloride 92 L Carbon Dioxide 35 H Anion Gap 11 BUN 55 H Creatinine 1.48 H Est GFR ( Amer) 41 L Glucose 203 H Lactic Acid 2.4 H Calcium 9.6 Magnesium Total Bilirubin 0.4 AST 21 Alkaline Phosphatase 96 Total Protein 7.1 Albumin 3.8 Urine Color Urine Appearance Urine pH Ur Specific [place] Urine Protein Urine Glucose (UA) Urine Ketones Urine Blood Urine RBC (Auto) 07/12/19 07/12/19 07/12/19 17:25 17:25 20:56 WBC RBC Hgb Hct MCV MCH MCHC RDW Plt Count Seg Neutrophils % VBG pH 7.36 VBG pCO2 66.5 H* VBG HCO3 36.3 H VBG Base Excess 7.8 Sodium Potassium Chloride Carbon Dioxide Anion Gap BUN Creatinine Est GFR ( Amer) Glucose Lactic Acid 1.5 Calcium Magnesium Total Bilirubin AST Alkaline Phosphatase Total Protein Albumin Urine Color YELLOW Urine Appearance CLEAR Urine pH 7.0 Ur Specific [place] 1.012 Urine Protein NEGATIVE Urine Glucose (UA) NEGATIVE Urine Ketones NEGATIVE Urine Blood NEGATIVE Urine RBC (Auto) 0 07/13/19 07/13/19 07/13/19 00:39 05:11 05:11 WBC 11.4 H RBC 3.13 L Hgb 9.3 L Hct 27.2 L MCV 87 MCH 29.8 MCHC 34.3 RDW 14.6 H Plt Count 169 Seg Neutrophils % VBG pH VBG pCO2 VBG HCO3 VBG Base Excess Sodium 137.8 Potassium 3.6 Chloride 96 L Carbon Dioxide 37 H Anion Gap 5 BUN 43 H Creatinine 1.22 Est GFR ( Amer) 52 L Glucose 91 Lactic Acid 2.1 Calcium 9.0 Magnesium 2.6 H Total Bilirubin AST Alkaline Phosphatase Total Protein Albumin Urine Color Urine Appearance Urine pH Ur Specific [place] Urine Protein Urine Glucose (UA) Urine Ketones Urine Blood Urine RBC (Auto) 07/13/19 07/13/19 05:11 10:10 WBC RBC Hgb Hct MCV MCH MCHC RDW Plt Count Seg Neutrophils % VBG pH VBG pCO2 VBG HCO3 VBG Base Excess Sodium Potassium Chloride Carbon Dioxide Anion Gap BUN Creatinine Est GFR ( Amer) Glucose Lactic Acid 0.9 1.3 Calcium Magnesium Total Bilirubin AST Alkaline Phosphatase Total Protein Albumin Urine Color Urine Appearance Urine pH Ur Specific [place] Urine Protein Urine Glucose (UA) Urine Ketones Urine Blood Urine RBC (Auto) 07/12/19 17:25 NT-Pro-B Natriuret Pep 316 Impressions: Chest X-Ray 07/12/19 17:54 IMPRESSION: Improving but persistent consolidation in the right lower lung, possibly representing resolving pneumonia. There is new atelectasis at the left lung base. Probable tiny bilateral pleural effusions. Assessment and Plan - Diagnosis (1) Acute on chronic respiratory failure with hypoxia and hypercapnia Is this a current diagnosis for this admission?: Yes (2) COPD exacerbation Is this a current diagnosis for this admission?: Yes (3) DM type 2 (diabetes mellitus, type 2) Is this a current diagnosis for this admission?: Yes (4) HTN (hypertension) Qualifiers: Hypertension type: essential hypertension Qualified Code(s): I10 - Essential (primary) hypertension Is this a current diagnosis for this admission?: Yes (5) Hyperlipidemia Qualifiers: Hyperlipidemia type: unspecified Qualified Code(s): E78.5 - Hyperlipidemia, unspecified Is this a current diagnosis for this admission?: Yes - Plan Summary Summary: Patient is admitted to the medical floor where she will receive routine supportive and symptomatic cares. She will be treated with an aggressive pulmonary toilet utilizing nebulized Xopenex, Atrovent, Pulmicort and Mucomyst. She will be treated with IV antibiotics initially utilizing meropenem and vancomycin pending culture results. Serial lactic acids will be performed. Patient received a sepsis bolus of IV fluids in the emergency room per ER report. Further fluids will be administered as needed based on clinical observation and laboratory results. Patient is DNR status. Patient will receive her usual medications and treatments only as appropriate for her chronic medical problems, though significant reduction in polypharmacy should be achieved prior to discharge. CBCs, metabolic profiles and magnesium levels will be obtained on a regular basis as required. Patient will be on a diabetic and cardiac restricted diet. Before meals and at bedtime Accu-Cheks will be obtained with sliding scale insulin for hyperglycemia and a hypoglycemic protocol in place. 07/13/2019 Temperature 98.8, pulse rate 75, blood pressure 112/57, O2 sat 98% on 2 L nasal cannula Count this morning is 11,400 down from 14,500 on admission BUN and creatinine are improved with IV fluids Lactic acid is normal 1.3 Analysis positive nitrates moderate leukocytes with culture pending Chest x-ray from last night shows persistent consolidation in the right lower lung possibly representing pneumonia as well as atelectasis left lung base IV fluids are lactated Ringer's 167/h Meropenem IV every 8 hours Vancomycin IV nightly Appears to have urinary tract infection, probable persistent pneumonia, possible urosepsis Multiple admissions for this patient - Time Time Spent with patient: 25-34 minutes
[2019-07-13] MEDS: VANCOMYCIN HCL 1,000 MG in DEXTROSE 5%-WATER 250 ML IV SCH (17:35)
[2019-07-13] MEDS: LEVALBUTEROL HCL NEB 0.63 MG/3 ML AMPUL NEB PRN (19:49)
[2019-07-13] MEDS: MELATONIN 5 MG TABLET PO SCH (21:39)
[2019-07-13] MEDS ORDERED: LEVOFLOXACIN 500 MG/D5W RTU 500 MG/100 ML RTUPB IV SCH (22:00)
[2019-07-14] MEDS: ACETAMINOPHEN 325 MG TABLET PO PRN ×2 (00:09→22:25)
[2019-07-14] MEDS: MORPHINE SULFATE 10 MG/ML INJ IV PRN ×3 (00:10→09:01)
[2019-07-14] MEDS: LEVALBUTEROL HCL NEB 1.25 MG/3 ML AMPUL NEB SCH ×3 (00:56→15:49)
[2019-07-14] MEDS: IPRATROPIUM BROMIDE 0.02% NEB 0.5 MG/2.5 ML AMPUL NEB SCH ×3 (00:56→15:49)
[2019-07-14 05:10] LABS: HEMATOCRIT 28.8 % (36.0-47.0); HEMOGLOBIN 9.8 g/dL (12.0-15.5); MEAN CORPUSCULAR HEMOGLOBIN 29.7 pg (27.0-33.4); MEAN CORPUSCULAR HGB CONC 34.1 g/dL (32.0-36.0); MEAN CORPUSCULAR VOLUME 87 fl (80-97); PLATELET COUNT 176 10^3/uL (150-450); RED BLOOD COUNT 3.31 10^6/uL (3.72-5.28); RED CELL DISTRIBUTION WIDTH 14.7 % (11.5-14.0); WHITE BLOOD COUNT 10.5 10^3/uL (4.0-10.5)
[2019-07-14] MEDS: PANTOPRAZOLE SODIUM 40 MG TABLET.DR PO SCH (05:11)
[2019-07-14] MEDS: HEPARIN SOD (PORCINE) 5,000 UNIT/ML 1 ML VIAL SUBCUT SCH ×3 (05:11→22:25)
[2019-07-14] MEDS: BACLOFEN 10 MG TABLET PO SCH ×3 (05:11→22:27)
[2019-07-14] MEDS: MEROPENEM 1 GM in NORMAL SALINE 50 ML IV SCH ×3 (05:12→22:25)
[2019-07-14 05:32] LABS: ANION GAP 5 (5-19); BLOOD UREA NITROGEN 27 mg/dL (7-20); CARBON DIOXIDE 37 mmol/L (22-30); CHLORIDE 96 mmol/L (98-107); GLUCOSE 105 mg/dL (75-110); POTASSIUM 3.6 mmol/L (3.6-5.0)
[2019-07-14] MEDS: ACETYLCYSTEINE 20% SOLN 800 MG/4 ML VIAL.NEB NEB SCH ×2 (08:36→20:44)
[2019-07-14] MEDS: BUDESONIDE NEB 0.5 MG/2 ML AMPUL NEB SCH ×2 (08:36→20:44)
[2019-07-14] MEDS: DULOXETINE HCL 30 MG CAPSULE.DR PO SCH (08:59)
[2019-07-14] MEDS: DOCUSATE SODIUM 100 MG CAPSULE PO SCH ×2 (08:59→17:54)
[2019-07-14] MEDS: LOSARTAN POTASSIUM 50 MG TABLET PO SCH (08:59)
[2019-07-14] MEDS: METOPROLOL SUCCINATE 25 MG TAB.SR.24H PO SCH (09:00)
[2019-07-14] MEDS: PREGABALIN 50 MG CAPSULE PO SCH ×3 (09:00→22:26)
[2019-07-14] MEDS: BUPROPION HCL 75 MG TABLET PO SCH ×2 (09:00→22:27)
[2019-07-14] MEDS: RANOLAZINE 500 MG TAB.SR.12H PO SCH ×2 (09:00→22:26)
[2019-07-14] MEDS: MAGNESIUM OXIDE 400 MG TABLET PO SCH (09:00)
[2019-07-14] MEDS: TORSEMIDE 20 MG TABLET PO SCH (09:00)
[2019-07-14] MEDS: RINGERS SOLUTION,LACTATED 1,000 ML IV PRN (09:02)
[2019-07-14] MEDS ORDERED: BISACODYL 10 MG SUPP.RECT PR PRN (13:25)
[2019-07-14] MEDS ORDERED: LIDOCAINE 5% (700 MG) TRANSDERMAL ADH..PATCH TP PRN (13:27)
[2019-07-14] MEDS ORDERED: SIMETHICONE 80 MG TAB.CHEW PO PRN (13:27)
[2019-07-14] MEDS ORDERED: RINGERS SOLUTION,LACTATED 1,000 ML IV PRN (13:30)
--- NOTE | 2019-07-14 14:00 | PDOC PROGRESS REPORT ---
Subjective Progress Note for:: 07/14/19 Subjective:: The patient is a 74-year-old female with a past medical history of atrial fibrillation, diastolic CHF, CAD, DVT, [place], hypertension, hyperlipidemia, PE, COPD, recurrent MRSA pneumonia, chronic respiratory failure, ROSETTA, DM 2, obesity, CKD, GERD, arthritis, fibromyalgia, dementia, C. difficile, ESBL E. coli UTI, frequent admissions to the hospital who was admitted 07/12/2019 for acute on chronic respiratory failure with hypoxia and hypercapnia following discharge to [facility] on Augmentin. Patient returned to the hospital approximately 2 days after completing course of antibiotics for worsening dyspnea. Patient was seen on morning rounds. She was found resting in bed, comfortably, on supplemental oxygen by nasal cannula at 3 L/min. She utilizes 3 L/min and CPAP nightly at baseline. She is noted to have rhonchi and a productive cough but otherwise appears to be in her general state of health. She endorses increased sputum production. Primary concern today is constipation; requests Dulcolax suppository. Otherwise, she denies fever, chills, chest pain, palpitations, orthopnea, abdominal pain, nausea and vomiting. She has no other questions or concerns at this time. No concerns per nursing. Reason For Visit: ACUTE RESPIRATORY FAILURE WITH HYPOXIA Physical Exam Vital Signs: Temp Pulse Resp BP Pulse Ox 98.0 F 81 16 130/61 H 100 07/14/19 08:00 07/14/19 09:18 07/14/19 09:18 07/14/19 08:00 07/14/19 12:59 Pulse Oximeter Continuous Start: 07/12/19 21:03 Freq: RTQ4 Status: Active Protocol: Document 07/14/19 12:59 [facility] (Rec: 07/14/19 13:06 [facility] [id number]) Additional RT Notes Other cannula returned to 3 lpm per pt request. pt uses 3 lpm at home Pulse Oximetry Assessment Oxygen Saturation (92-100) 100 Oxygen Flow Rate (L/min) 2 Oxygen Delivery Method Nasal Cannula Fraction of Inspired Oxygen (FIO2) 28 Equipment Usage Equipment in Use Continuous SpO2 Machine # 10 Intake & Output 07/13/19 07/14/19 07/15/19 06:59 06:59 06:59 Intake Total 1100 5120 50 Output Total 5425 Balance 1100 -305 50 Weight 91.4 kg 93.4 kg General appearance: PRESENT: no acute distress, disheveled, obese, well- developed, well-nourished, other - Chronically ill-appearing Head exam: PRESENT: atraumatic, normocephalic Eye exam: PRESENT: conjunctiva pink, EOMI, PERRLA. ABSENT: scleral icterus Ear exam: PRESENT: normal external ear exam Mouth exam: PRESENT: moist, tongue midline Neck exam: ABSENT: carotid bruit, JVD, lymphadenopathy, thyromegaly Respiratory exam: PRESENT: prolonged expiratory phas, rhonchi, symmetrical, unlabored, other - Supplemental oxygen by nasal cannula. ABSENT: rales, wheezes Cardiovascular exam: PRESENT: RRR, +S1, +S2, systolic murmur. ABSENT: diastolic murmur, rubs Pulses: PRESENT: normal dorsalis pedis pul Vascular exam: PRESENT: normal capillary refill GI/Abdominal exam: PRESENT: normal bowel sounds, soft. ABSENT: distended, guarding, mass, organolmegaly, rebound, tenderness Rectal exam: PRESENT: deferred Gentrourinary exam: PRESENT: indwelling catheter - Chronic Extremities exam: PRESENT: full ROM. ABSENT: calf tenderness, clubbing, pedal edema Musculoskeletal exam: ABSENT: ambulatory - Nonambulatory at baseline Neurological exam: PRESENT: alert, awake, oriented to person, oriented to place, oriented to time, oriented to situation, CN II-XII grossly intact. ABSENT: motor sensory deficit Psychiatric exam: PRESENT: appropriate affect, normal mood. ABSENT: homicidal ideation, suicidal ideation Skin exam: PRESENT: dry, intact, warm. ABSENT: cyanosis, rash Results Laboratory Results: 07/14/19 04:45 07/14/19 04:45 07/14/19 07/14/19 04:45 04:45 WBC 10.5 RBC 3.31 L Hgb 9.8 L Hct 28.8 L MCV 87 MCH 29.7 MCHC 34.1 RDW 14.7 H Plt Count 176 Sodium 138.0 Potassium 3.6 Chloride 96 L Carbon Dioxide 37 H Anion Gap 5 BUN 27 H Creatinine 1.36 H Est GFR ( Amer) 46 L Glucose 105 Calcium 9.0 Magnesium 2.4 H 07/12/19 17:25 NT-Pro-B Natriuret Pep 316 Impressions: Chest X-Ray 07/12/19 17:54 IMPRESSION: Improving but persistent consolidation in the right lower lung, po ssibly representing resolving pneumonia. There is new atelectasis at the left lung base. Probable tiny bilateral pleural effusions. Assessment and Plan - Diagnosis (1) Acute on chronic respiratory failure with hypoxia and hypercapnia Is this a current diagnosis for this admission?: Yes Plan: Improved; secondary to healthcare associated pneumonia and COPD exacerbation. Now on baseline supplemental oxygen and CPAP requirements. Does continue to have rhonchi with increased sputum production. Chest x-ray on time of admission shows improved RLL pneumonia. Blood cultures are negative. Sputum cultures were not obtained. T-max 100.9 last 48 hours. Leukocytosis has resolved. We will continue IV meropenem and vancomycin. Have discontinued IV Levaquin. Patient received a full course of Zosyn followed by p.o. Augmentin from prior admission. Continue supplemental oxygen and CPAP as needed maintain oxygen saturations. Continue scheduled and as needed nebulizer treatments. Mucinex twice daily. Robitussin as needed. Continue home dose prednisone and Daliresp for COPD. Encourage pulmonary toilet with incentive spirometer, flutter valve, chest physiotherapy. (2) COPD (chronic obstructive pulmonary disease) Qualifiers: Emphysema type: unspecified Is this a current diagnosis for this admission?: Yes Plan: Evaluation management as above. (3) HCAP (healthcare-associated pneumonia) Is this a current diagnosis for this admission?: Yes Plan: As above. Blood cultures are negative at 24 hours. Sputum cultures are pending. Additionally, infectious disease consultation is requested to guide antibiotic therapy. Currently on day #3 of meropenem and vancomycin. IV Levaquin has been discontinued. (4) UTI (urinary tract infection) due to urinary indwelling catheter Qualifiers: Indwelling urinary catheter type: indwelling urethral catheter Encounter type: initial encounter Qualified Code(s): T83.511A - Infection and i nflammatory reaction due to indwelling urethral catheter, initial encounter; N39.0 - Urinary tract infection, site not specified Is this a current diagnosis for this admission?: Yes Plan: Urinalysis positive for nitrites Patient denies symptoms; does have indwelling catheter. On admission, patient with elevated WBCs (14.5); subsequently resolved. T-max 100.9 last 48 hours. Urine cultures show >100k ESBL E. coli and >100k Pseudomonas. Both with multiple resistances. Of note, patient was recently treated with PIP/Tazo for healthcare associated pneumonia and transitioned to p.o. Augmentin at time of discharge (w/in last 30 days). Continue IV meropenem and vancomycin. Infectious disease has been consulted to guide antibiotic course. Change Barton catheter today. (5) Chronic diastolic CHF (congestive heart failure) Is this a current diagnosis for this admission?: Yes Plan: Stable and without exacerbation at this time. Continuing home medications: Diltiazem, hydralazine, losartan, metoprolol, Ranexa, furosemide and metolazone. Cardiac/prerenal/consistent carb diet. Daily weights, strict I&Os (6) Chronic indwelling Barton catheter Is this a current diagnosis for this admission?: Yes (7) Chronic pain syndrome Is this a current diagnosis for this admission?: Yes Plan: Catheter changed today per schedule. (8) Coronary artery disease Qualifiers: Coronary Disease-Associated Artery/Lesion type: [place] artery [place] vs. transplanted heart: [place] heart Associated angina: without angina Qualified Code(s): I25.10 - Atherosclerotic heart disease of [place] coronary artery without angina pectoris Is this a current diagnosis for this admission?: Yes (9) Diabetes mellitus type 2 in obese Is this a current diagnosis for this admission?: Yes (10) HTN (hypertension) Qualifiers: Hypertension type: essential hypertension Qualified Code(s): I10 - Essential (primary) hypertension Is this a current diagnosis for this admission?: Yes Plan: Continue home regiment of diltiazem, hydralazine, losartan, metoprolol, Ranexa. Cardiac diet. (11) Hyperlipidemia Qualifiers: Hyperlipidemia type: unspecified Qualified Code(s): E78.5 - Hyperlipidemia, unspecified Is this a current diagnosis for this admission?: Yes Plan: Continue cardiac diet. Patient with reported statin allergy. (12) Obesity (BMI 30.0-34.9) Is this a current diagnosis for this admission?: Yes Plan: Dietary discretion is advised. Patient is placed on a prerenal, cardiac, consistent carb diet. (13) Obstructive sleep apnea Is this a current diagnosis for this admission?: Yes Plan: CPAP nightly. (14) Opiate dependence, continuous Is this a current diagnosis for this admission?: Yes Plan: Continuing home medication regiment of oxycodone 10 mg every 8 hours as needed, Lyrica 50 mg every 8 hours scheduled, and Duragesic patch. (15) Polypharmacy Is this a current diagnosis for this admission?: Yes Plan: Medications are reviewed, decreased and discontinued were appropriate. Advised to continue discussion with primary care provider regarding decreasing medications. (16) Bedbound Is this a current diagnosis for this admission?: Yes Plan: Every 2 turns. Aspiration and fall precautions. Discharge planning consulted; patient will discharge to [facility] where she is a long-term resident. (17) Constipation Is this a current diagnosis for this admission?: Yes Plan: Bowel regiment of Colace, milk of mag, MiraLAX, and Dulcolax suppository. - Time Time Spent with patient: 35 or more minutes Medications reviewed and adjusted accordingly: Yes Anticipated discharge: Home - [facility] Within: within 48 hours
[2019-07-14] MEDS: HYDRALAZINE HCL 25 MG TABLET PO SCH ×2 (14:26→22:27)
[2019-07-14] MEDS: METOLAZONE 2.5 MG TABLET PO SCH (14:26)
[2019-07-14] MEDS ORDERED: FENTANYL 25 MCG/HR PATCH.TD72 TD SCH (15:00)
[2019-07-14] MEDS: FERROUS SULFATE 325 MG TABLET PO SCH (17:54)
[2019-07-14] MEDS: VANCOMYCIN HCL 1,000 MG in DEXTROSE 5%-WATER 250 ML IV SCH (17:54)
[2019-07-14] MEDS: FUROSEMIDE 40 MG TABLET PO SCH (17:55)
[2019-07-14] MEDS ORDERED: (PENDING PHARMACY ID) (Buspirone Hcl [Buspar 5 Mg Tablet] 5 MG) PO SCH (22:00)
[2019-07-14] MEDS: GUAIFENESIN 600 MG TABLET.SA PO SCH (22:26)
[2019-07-14] MEDS: MELATONIN 5 MG TABLET PO SCH (22:26)
[2019-07-14] MEDS: BUSPIRONE HCL 10 MG TABLET PO SCH (22:26)
[2019-07-14] MEDS: FLUTICASONE NASAL SPRAY 50 MCG/SPRY 120 SPRAY/16 GM NASL SCH (22:26)
[2019-07-14] MEDS: DILTIAZEM HCL 30 MG TABLET PO SCH (22:27)
[2019-07-15] MEDS: IPRATROPIUM BROMIDE 0.02% NEB 0.5 MG/2.5 ML AMPUL NEB SCH ×4 (01:06→23:53)
[2019-07-15] MEDS: LEVALBUTEROL HCL NEB 1.25 MG/3 ML AMPUL NEB SCH ×4 (01:06→23:53)
[2019-07-15 05:42] LABS: HEMOGLOBIN 9.6 g/dL (12.0-15.5); MEAN CORPUSCULAR HEMOGLOBIN 29.7 pg (27.0-33.4); MEAN CORPUSCULAR HGB CONC 34.3 g/dL (32.0-36.0); MEAN CORPUSCULAR VOLUME 87 fl (80-97); PLATELET COUNT 165 10^3/uL (150-450); RED BLOOD COUNT 3.23 10^6/uL (3.72-5.28); RED CELL DISTRIBUTION WIDTH 14.3 % (11.5-14.0); WHITE BLOOD COUNT 7.3 10^3/uL (4.0-10.5)
[2019-07-15 06:08] LABS: ANION GAP 7 (5-19); BLOOD UREA NITROGEN 28 mg/dL (7-20); CALCIUM 9.4 mg/dL (8.4-10.2); CARBON DIOXIDE 38 mmol/L (22-30); CHLORIDE 95 mmol/L (98-107); GLUCOSE 106 mg/dL (75-110); POTASSIUM 3.8 mmol/L (3.6-5.0)
[2019-07-15] MEDS: HYDRALAZINE HCL 25 MG TABLET PO SCH ×2 (06:44→13:54)
[2019-07-15] MEDS: PREGABALIN 50 MG CAPSULE PO SCH ×2 (06:45→14:25)
[2019-07-15] MEDS: HEPARIN SOD (PORCINE) 5,000 UNIT/ML 1 ML VIAL SUBCUT SCH ×3 (06:45→22:12)
[2019-07-15] MEDS: DILTIAZEM HCL 30 MG TABLET PO SCH ×2 (06:45→13:54)
[2019-07-15] MEDS: BACLOFEN 10 MG TABLET PO SCH ×3 (06:45→22:15)
[2019-07-15] MEDS: PANTOPRAZOLE SODIUM 40 MG TABLET.DR PO SCH (06:45)
[2019-07-15] MEDS ORDERED: (PENDING PHARMACY ID) (Bupropion Hcl [Wellbutrin Xl 150 Mg 24hr Tablet] 150 MG) PO SCH (08:00)
[2019-07-15] MEDS ORDERED: (PENDING PHARMACY ID) (Roflumilast [Daliresp 500 Mcg Tablet] 500 MCG) PO SCH (08:00)
[2019-07-15] MEDS: ACETYLCYSTEINE 20% SOLN 800 MG/4 ML VIAL.NEB NEB SCH ×2 (08:12→21:08)
[2019-07-15] MEDS: BUDESONIDE NEB 0.5 MG/2 ML AMPUL NEB SCH ×2 (08:12→21:08)
[2019-07-15] MEDS: ROFLUMILAST 500 MCG TABLET PO SCH (08:35)
[2019-07-15] MEDS: POLYETHYLENE GLYCOL 3350 POWDER 17 GM/1 PACKET PO SCH (08:35)
[2019-07-15] MEDS: BUPROPION HCL 75 MG TABLET PO SCH ×2 (09:07→22:14)
[2019-07-15] MEDS: METOLAZONE 2.5 MG TABLET PO SCH (09:07)
[2019-07-15] MEDS: DOCUSATE SODIUM 100 MG CAPSULE PO SCH ×2 (09:08→18:38)
[2019-07-15] MEDS: GUAIFENESIN 600 MG TABLET.SA PO SCH ×2 (09:08→22:13)
[2019-07-15] MEDS: BUSPIRONE HCL 10 MG TABLET PO SCH ×2 (09:08→22:13)
[2019-07-15] MEDS: RANOLAZINE 500 MG TAB.SR.12H PO SCH ×2 (09:08→22:14)
[2019-07-15] MEDS: METOPROLOL SUCCINATE 25 MG TAB.SR.24H PO SCH (09:08)
[2019-07-15] MEDS: MAGNESIUM OXIDE 400 MG TABLET PO SCH (09:08)
[2019-07-15] MEDS: MEROPENEM 1 GM in NORMAL SALINE 50 ML IV SCH (09:08)
[2019-07-15] MEDS: FERROUS SULFATE 325 MG TABLET PO SCH ×2 (09:09→18:38)
[2019-07-15] MEDS: OXYCODONE HCL IR 5 MG TABLET PO PRN ×2 (09:09→18:38)
[2019-07-15] MEDS: FUROSEMIDE 40 MG TABLET PO SCH ×2 (09:09→18:38)
[2019-07-15] MEDS: DULOXETINE HCL 30 MG CAPSULE.DR PO SCH (09:09)
[2019-07-15] MEDS: PREDNISONE 20 MG TABLET PO SCH (09:09)
[2019-07-15] MEDS: LOSARTAN POTASSIUM 50 MG TABLET PO SCH (09:10)
[2019-07-15] MEDS: FLUTICASONE NASAL SPRAY 50 MCG/SPRY 120 SPRAY/16 GM NASL SCH ×2 (09:10→22:14)
[2019-07-15] MEDS: ACETAMINOPHEN 325 MG TABLET PO PRN ×2 (14:31→23:10)
[2019-07-15] MEDS ORDERED: METOPROLOL SUCCINATE 25 MG TAB.SR.24H PO SCH (16:37)
--- NOTE | 2019-07-15 16:52 | PDOC PROGRESS REPORT ---
Subjective Progress Note for:: 07/15/19 Subjective:: The patient is a 74-year-old female with a past medical history of atrial fibrillation, diastolic CHF, CAD, DVT, [place], hypertension, hyperlipidemia, PE, COPD, recurrent MRSA pneumonia, chronic respiratory failure, ROSETTA, DM 2, obesity, CKD, GERD, arthritis, fibromyalgia, dementia, C. difficile, ESBL E. coli UTI, frequent admissions to the hospital who was admitted 07/12/2019 for acute on chronic respiratory failure with hypoxia and hypercapnia following discharge to [facility] on Augmentin. Patient returned to the hospital approximately 2 days after completing course of antibiotics for worsening dyspnea. Patient was seen on afternoon rounds. She was found resting in bed, comfortably, on supplemental oxygen by nasal cannula at 3 L/min. She utilizes 3 L/min and CPAP nightly at baseline. She is noted to have rhonchi and a productive cough but otherwise appears to be in her general state of health. She endorses increased sputum production. She reports that her constipation has resolved. Today she is concerned about hypotension. Nursing does confirm that they have held multiple blood pressure medications over the last 36 hours due to low blood pressures. Otherwise, she denies fever, chills, chest pain, palpitations, orthopnea, abdominal pain, nausea and vomiting. She has no other questions or concerns at this time. No other concerns per nursing. Reason For Visit: ACUTE RESPIRATORY FAILURE WITH HYPOXIA Physical Exam Vital Signs: Temp Pulse Resp BP Pulse Ox 98.4 F 81 20 98/41 L 96 07/15/19 12:00 07/15/19 16:05 07/15/19 16:05 07/15/19 12:00 07/15/19 16:05 Pulse Oximeter Continuous Start: 07/12/19 21 :03 Freq: RTQ4 Status: Complete Protocol: Document 07/15/19 16:05 [facility] (Rec: 07/15/19 16:15 [facility] [id number]) Pulse Oximetry Assessment Oxygen Saturation (92-100) 96 Oxygen Flow Rate (L/min) 3 Oxygen Delivery Method Nasal Cannula Fraction of Inspired Oxygen (FIO2) 32 Equipment Usage Equipment in Use Continuous SpO2 Machine # 10 Intake & Output 07/14/19 07/15/19 07/16/19 06:59 06:59 06:59 Intake Total 0497 3105 50 Output Total 8519 9123 Balance -305 -5312 50 Weight 93.4 kg 97.8 kg General appearance: PRESENT: no acute distress, obese, well-developed, well- nourished, other - Chronically ill-appearing Head exam: PRESENT: atraumatic, normocephalic Eye exam: PRESENT: conjunctiva pink, EOMI, PERRLA. ABSENT: scleral icterus Ear exam: PRESENT: normal external ear exam Mouth exam: PRESENT: moist, tongue midline Neck exam: ABSENT: carotid bruit, JVD, lymphadenopathy, thyromegaly Respiratory exam: PRESENT: prolonged expiratory phas, rhonchi, symmetrical, unlabored, other - Baseline oxygen requirement. ABSENT: rales, wheezes Cardiovascular exam: PRESENT: RRR, +S1, +S2, systolic murmur. ABSENT: diastolic murmur, rubs Pulses: PRESENT: normal dorsalis pedis pul Vascular exam: PRESENT: normal capillary refill GI/Abdominal exam: PRESENT: normal bowel sounds, soft. ABSENT: distended, guarding, mass, organolmegaly, rebound, tenderness Rectal exam: PRESENT: deferred Gentrourinary exam: PRESENT: indwelling catheter - Chronic Extremities exam: PRESENT: full ROM. ABSENT: calf tenderness, clubbing, pedal edema Musculoskeletal exam: ABSENT: ambulatory - Nonambulatory at baseline Neurological exam: PRESENT: alert, awake, oriented to person, oriented to place, oriented to time, oriented to situation, CN II-XII grossly intact. ABSENT: motor sensory deficit Psychiatric exam: PRESENT: appropriate affect, normal mood. ABSENT: homicidal ideation, suicidal ideation Skin exam: PRESENT: dry, intact, warm. ABSENT: cyanosis, rash Results Laboratory Results: 07/15/19 05:10 07/15/19 05:10 07/15/19 07/15/19 05:10 05:10 WBC 7.3 RBC 3.23 L Hgb 9.6 L Hct 28.0 L MCV 87 MCH 29.7 MCHC 34.3 RDW 14.3 H Plt Count 165 Sodium 139.9 Potassium 3.8 Chloride 95 L Carbon Dioxide 38 H Anion Gap 7 BUN 28 H Creatinine 1.25 Est GFR ( Amer) 50 L Glucose 106 Calcium 9.4 Magnesium 2.2 07/12/19 17:25 Barton Catheter Urine Culture - Final Escherichia Coli Esbl Pseudomonas Aeruginosa 07/12/19 17:25 NT-Pro-B Natriuret Pep 316 Impressions: Chest X-Ray 07/12/19 17:54 IMPRESSION: Improving but persistent consolidation in the right lower lung, possibly representing resolving pneumonia. There is new atelectasis at the left lung base. Probable tiny bilateral pleural effusions. Assessment and Plan - Diagnosis (1) Acute on chronic respiratory failure with hypoxia and hypercapnia Is this a current diagnosis for this admission?: Yes Plan: Improved; secondary to healthcare associated pneumonia and COPD exacerbation. Now on baseline supplemental oxygen and CPAP requirements. Does continue to have rhonchi with increased sputum production. Chest x-ray on time of admission shows improved RLL pneumonia. Blood cultures are negative. Sputum cultures were not obtained. T-max 100.9 last 48 hours. Leukocytosis has resolved. Have discontinued IV meropenem and vancomycin. Previously discontinued IV Levaquin. Patient received a full course of Zosyn followed by p.o. Augmentin from prior admission. Continue supplemental oxygen and CPAP as needed maintain oxygen saturations. Continue scheduled and as needed nebulizer treatments. Mucinex twice daily. Robitussin as needed. Continue home dose prednisone and Daliresp for COPD. Encourage pulmonary toilet with incentive spirometer, flutter valve, chest physiotherapy. (2) COPD (chronic obstructive pulmonary disease) Qualifiers: Emphysema type: unspecified Is this a current diagnosis for this admission?: Yes Plan: Evaluation management as above. (3) HCAP (healthcare-associated pneumonia) Is this a current diagnosis for this admission?: Yes Plan: As above. Blood cultures are negative at 48 hours. Sputum cultures were not obtained. Infectious disease consultation is requested to guide antibiotic therapy. Have discontinued meropenem and vancomycin; received 4 days. IV Levaquin has been discontinued. (4) UTI (urinary tract infection) due to urinary indwelling catheter Qualifiers: Indwelling urinary catheter type: indwelling urethral catheter Encounter type: initial encounter Qualified Code(s): T83.511A - Infection and inflammatory reaction due to indwelling urethral catheter, initial encounter; N39.0 - Urinary tract infection, site not specified Is this a current diagnosis for this admission?: Yes Plan: Urinalysis positive for nitrites Patient denies symptoms; does have indwelling catheter. On admission, patient with elevated WBCs (14.5); subsequently resolved. T-max 100.9 last 48 hours. Urine cultures show >100k ESBL E. coli and >100k Pseudomonas. Both with multiple resistances. Of note, patient was recently treated with PIP/Tazo for healthcare associated pneumonia and transitioned to p.o. Augmentin at time of discharge (w/in last 30 days). Infectious disease has been consulted to guide antibiotic course. Discussed with pharmacy; per their discussion with Dr. Orozco, patient is colonized and does not require further abx as she did not have other clinic evidence of acute /active infection. Have exchanged [place] catheter (5) Chronic diastolic CHF (congestive heart failure) Is this a current diagnosis for this admission?: Yes Plan: Stable and without exacerbation at this time. Continuing home medications: metoprolol, Ranexa, furosemide and metolazone. - Diltiazem, hydralazine, losartan on hold due to hypotension (noted following resumption of fentanyl patch) Cardiac/prerenal/consistent carb diet. Daily weights, strict I&Os (6) Chronic indwelling Barton catheter Is this a current diagnosis for this admission?: Yes Plan: Exchanged (7) Chronic pain syndrome Is this a current diagnosis for this admission?: Yes Plan: Catheter changed today per schedule. (8) Coronary artery disease Qualifiers: Coronary Disease-Associated Artery/Lesion type: [place] artery [place] vs. transplanted heart: [place] heart Associated angina: without angina Qualified Code(s): I25.10 - Atherosclerotic heart disease of [place] coronary artery without angina pectoris Is this a current diagnosis for this admission?: Yes (9) Diabetes mellitus type 2 in obese Is this a current diagnosis for this admission?: Yes Plan: Patient is placed on Accu-Cheks before meals and at bedtime with Humalog for sliding scale coverage. Consistent carb diet. Hypoglycemia protocol in place. (10) HTN (hypertension) Qualifiers: Hypertension type: essential hypertension Qualified Code(s): I10 - Essential (primary) hypertension Is this a current diagnosis for this admission?: Yes Plan: Continue home regiment of metoprolol, Ranexa. - diltiazem, hydralazine, losartan currently on hold secondary to hypotension (first noted upon resumption of patient's home dose Duragesic patch) Cardiac diet. (11) Hyperlipidemia Qualifiers: Hyperlipidemia type: unspecified Qualified Code(s): E78.5 - Hyperlipidemia, unspecified Is this a current diagnosis for this admission?: Yes Plan: Continue cardiac diet. Patient with reported statin allergy. (12) Obesity (BMI 30.0-34.9) Is this a current diagnosis for this admission?: Yes Plan: Dietary discretion is advised. Patient is placed on a prerenal, cardiac, consistent carb diet. (13) Obstructive sleep apnea Is this a current diagnosis for this admission?: Yes Plan: CPAP nightly. (14) Opiate dependence, continuous Is this a current diagnosis for this admission?: Yes Plan: Continuing home medication regiment of oxycodone 10 mg every 8 hours as needed, Lyrica 50 mg every 8 hours scheduled, and Duragesic patch. (15) Polypharmacy Is this a current diagnosis for this admission?: Yes Plan: Medications are reviewed, decreased and discontinued were appropriate. Advised to continue discussion with primary care provider regarding decreasing medications. (16) Bedbound Is this a current diagnosis for this admission?: Yes Plan: Every 2 turns. Aspiration and fall precautions. Discharge planning consulted; patient will discharge to [place] where she is a long-term resident. (17) Constipation Is this a current diagnosis for this admission?: Yes Plan: Resolved. Bowel regiment of Colace, milk of mag, MiraLAX, and Dulcolax suppository. - Time Time Spent with patient: 35 or more minutes Medications reviewed and adjusted accordingly: Yes Anticipated discharge: Home - Long-term resident at [place] Within: within 24 hours - If blood pressures remain stable.
[2019-07-15] MEDS: LEVALBUTEROL HCL NEB 0.63 MG/3 ML AMPUL NEB PRN (21:08)
[2019-07-15] MEDS ORDERED: PREGABALIN 50 MG CAPSULE PO SCH (22:00)
[2019-07-15] MEDS: PREGABALIN 25 MG CAPSULE PO SCH (22:14)
[2019-07-15] MEDS: MELATONIN 5 MG TABLET PO SCH (22:14)
[2019-07-16] MEDS: OXYCODONE HCL IR 5 MG TABLET PO PRN ×2 (03:37→11:57)
[2019-07-16] MEDS: BACLOFEN 10 MG TABLET PO SCH ×2 (05:43→13:39)
[2019-07-16] MEDS: HEPARIN SOD (PORCINE) 5,000 UNIT/ML 1 ML VIAL SUBCUT SCH ×2 (05:43→13:52)
[2019-07-16] MEDS: PREGABALIN 25 MG CAPSULE PO SCH ×2 (05:43→13:39)
[2019-07-16] MEDS: PANTOPRAZOLE SODIUM 40 MG TABLET.DR PO SCH (05:43)
[2019-07-16] MEDS: ACETAMINOPHEN 325 MG TABLET PO PRN (08:05)
[2019-07-16] MEDS: POLYETHYLENE GLYCOL 3350 POWDER 17 GM/1 PACKET PO SCH (08:06)
[2019-07-16] MEDS: ROFLUMILAST 500 MCG TABLET PO SCH (08:06)
[2019-07-16] MEDS: IPRATROPIUM BROMIDE 0.02% NEB 0.5 MG/2.5 ML AMPUL NEB SCH (08:19)
[2019-07-16] MEDS: ACETYLCYSTEINE 20% SOLN 800 MG/4 ML VIAL.NEB NEB SCH (08:19)
[2019-07-16] MEDS: LEVALBUTEROL HCL NEB 1.25 MG/3 ML AMPUL NEB SCH (08:19)
[2019-07-16] MEDS: BUDESONIDE NEB 0.5 MG/2 ML AMPUL NEB SCH (08:19)
[2019-07-16] MEDS: FERROUS SULFATE 325 MG TABLET PO SCH (09:53)
[2019-07-16] MEDS: FUROSEMIDE 40 MG TABLET PO SCH (09:53)
[2019-07-16] MEDS: METOLAZONE 2.5 MG TABLET PO SCH (09:53)
[2019-07-16] MEDS: BUPROPION HCL 75 MG TABLET PO SCH (09:53)
[2019-07-16] MEDS: MAGNESIUM OXIDE 400 MG TABLET PO SCH (09:53)
[2019-07-16] MEDS: BUSPIRONE HCL 10 MG TABLET PO SCH (09:54)
[2019-07-16] MEDS: DOCUSATE SODIUM 100 MG CAPSULE PO SCH (09:54)
[2019-07-16] MEDS: RANOLAZINE 500 MG TAB.SR.12H PO SCH (09:54)
[2019-07-16] MEDS: GUAIFENESIN 600 MG TABLET.SA PO SCH (09:54)
[2019-07-16] MEDS: PREDNISONE 20 MG TABLET PO SCH (09:54)
[2019-07-16] MEDS: DULOXETINE HCL 30 MG CAPSULE.DR PO SCH (09:55)
[2019-07-16 09:57] VITALS: BP 110/58
[2019-07-16] MEDS: FLUTICASONE NASAL SPRAY 50 MCG/SPRY 120 SPRAY/16 GM NASL SCH (09:59)
--- NOTE | 2019-07-16 12:26 | PDOC TRANSFER SUMMARY ---
Impression - Admit/DC Date/PCP Admission Date/Primary Care Provider: 07/12/19 21:34 KARTHIKEYAN HERNANDEZ MD Discharge Date: 07/16/19 - Discharge Diagnosis (1) Acute on chronic respiratory failure with hypoxia and hypercapnia Is this a current diagnosis for this admission?: Yes (2) COPD (chronic obstructive pulmonary disease) Is this a current diagnosis for this admission?: Yes (3) HCAP (healthcare-associated pneumonia) Is this a current diagnosis for this admission?: Yes (4) UTI (urinary tract infection) due to urinary indwelling catheter Is this a current diagnosis for this admission?: Yes (5) Chronic diastolic CHF (congestive heart failure) Is this a current diagnosis for this admission?: Yes (6) Chronic indwelling Barton catheter Is this a current diagnosis for this admission?: Yes (7) Chronic pain syndrome Is this a current diagnosis for this admission?: Yes (8) Coronary artery disease Is this a current diagnosis for this admission?: Yes (9) Diabetes mellitus type 2 in obese Is this a current diagnosis for this admission?: Yes (10) HTN (hypertension) Is this a current diagnosis for this admission?: Yes (11) Hyperlipidemia Is this a current diagnosis for this admission?: Yes (12) Obesity (BMI 30.0-34.9) Is this a current diagnosis for this admission?: Yes (13) Obstructive sleep apnea Is this a current diagnosis for this admission?: Yes (14) Opiate dependence, continuous Is this a current diagnosis for this admission?: Yes (15) Polypharmacy Is this a current diagnosis for this admission?: Yes (16) Bedbound Is this a current diagnosis for this admission?: Yes (17) Constipation Is this a current diagnosis for this admission?: Yes - Additional Information Resuscitation Status: Do Not Resuscitate Discharge Diet: Cardiac, Diabetic Discharge Activity: Activity As Tolerated, Balance Activity w/Rest, Slowly Increase Activity Referrals: KARTHIKEYAN HERNANDEZ MD [Primary Care Provider] - Follow up as needed Home Medications: Acetaminophen [Tylenol] 650 mg PO Q4HP PRN 01/02/19 Albuterol Sulfate [Proair HFA Inhalation Aerosol 8.5 gm MDI] 2 puff IH Q4HP PRN 01/02/19 Baclofen [Baclofen 10 mg Tablet] 5 mg PO Q6HP PRN 01/02/19 Budesonide [Pulmicort] 0.25 mg NEB RTBID 01/02/19 Buspirone HCl [Buspar 5 mg Tablet] 5 mg PO Q12 01/02/19 Diltiazem HCl [Cardizem 30 mg Tablet] 30 mg PO Q8 01/02/19 Docusate Sodium [Colace 100 mg Capsule] 100 mg PO BID 01/02/19 Ergocalciferol (Vitamin D2) [Drisdol 50,000 unit (1.25MG) Capsule] 50,000 unit PO FRYE@1000 01/02/19 Fentanyl [Duragesic 25 mcg/hr Transdermal Patch] 1 each TD Q3D 01/02/19 Ferrous Sulfate [Feosol 325 mg Tablet] 325 mg PO BID 01/02/19 Fluticasone/Salmeterol [Advair 500-50 Diskus 14 Dose/Diskus] 1 puff IH Q12 01/02/19 Furosemide [Lasix 40 mg Tablet] 40 mg PO BID 01/02/19 Guaifenesin [Guaifenesin ER] 600 mg PO Q12 01/02/19 Insulin Detemir [Levemir] 32 unit SQ DAILY 01/02/19 Insulin Lispro [Humalog Insulin (Lispro) 100 unit/mL] 0 unit SUBCUT .SLD SCALE 01/02/19 Ipratropium/Albuterol Sulfate [Duoneb 3 ml Ampul] 3 ml NEB [id number] 01/02/19 Levalbuterol HCl [Xopenex Neb 0.63 mg/3 ml Ampul] 0.63 mg NEB RTQ8 01/02/19 Lidocaine [Lidoderm 5% (700 mg) Transdermal Patch] 2 patch TP DAILYP PRN 01/02/19 Magnesium Oxide [Mag-Ox 400 mg Tablet] 800 mg PO DAILY 01/02/19 Melatonin 10 mg PO QHS 01/02/19 Metoprolol Succinate [Toprol Xl] 25 mg PO QAM 01/02/19 Nitroglycerin [Nitrostat 0.4 mg (1/150 Gr) Tabs 25/Bottle] 0.4 mg SL Q5MP PRN 01/02/19 Prednisone [Deltasone] 30 mg PO DAILY 01/02/19 Ranolazine [Ranexa 500 mg Tab.sr] 500 mg PO Q12 01/02/19 Roflumilast [Daliresp 500 mcg Tablet] 500 mcg PO QAM 01/02/19 Sennosides/Docusate 8.6-50 mg [Senna Plus Tablet] 1 tab PO QHS 01/02/19 Tiotropium [place] [Spiriva Handihaler 5 Cap/Kit (18 Mcg/Cap)] 1 cap IH QAM 01/02/19 Acetylcysteine [Mucomist 10% Neb 400 mg/4 mL Vial] 2 ml NEB RTQ6 03/31/19 Fexofenadine HCl [Shaniqua] 60 mg PO QAM 03/31/19 Metolazone [Zaroxolyn 2.5 mg Tablet] 2.5 mg PO [id number] 03/31/19 Polyethylene Glycol 3350 [Miralax Powder 17 gm/Packet] 17 gm PO QAM 03/31/19 Polyvinyl Alcohol [Liquitears 1.4% Ophth Soln 15 ml] 1 drop OU QID 03/31/19 Potassium Chloride [K-Tab ER] 20 meq PO BID 03/31/19 Fluticasone Propionate [Flonase Nasal [place] 50 Mcg/Stehekin 16 gm] 2 spray NASL Q12 spray.pump 04/02/19 Bupropion HCl [Wellbutrin Xl 150 mg 24hr Tablet] 150 mg PO QAM 06/24/19 Duloxetine HCl [Cymbalta 30 mg Capsule.dr] 90 mg PO QAM 06/24/19 Oxycodone HCl [Oxycodone HCl 10 MG Tablet] 10 mg PO Q8HP PRN 06/24/19 Simethicone [Mylicon 80 mg Chewable Tablet] 80 mg PO Q6HP PRN 06/24/19 Pregabalin [Lyrica 50 mg Capsule] 25 mg PO Q8 #0 07/16/19 History of Present Illiness History of Present Illness: Per H&P by Dr. Stiles: PORSHA WALDRON is a 74 year old female who presented to the emergency room with a 2-day history of dyspnea. The patient reports progressively worsening dyspnea over the last 2 days after completion of her antibiotic therapy for a pneumonia. She was admitted on 06/23/2019 and treated for pneumonia with discharge on 06/29/2019 and continued antibiotic therapy at the [facility] until 4 days ago. Within 48 hours of the discontinuation of antibiotic therapy her symptoms began and have been escalating since that time despite continuous supplemental oxygen therapy at 3 L/min. Her dyspnea is associated with a nonproductive cough and fatigue/lethargy. She denies other associated or accompanying signs and symptoms but admits her dyspnea gets worse with any activity. She has not identified any additional aggravating or ameliorating factors for her dyspnea. In the emergency room she was noted to have a white blood count of 14,500 with a lactic acid of 2.4 and a chest x-ray showing the continued presence of her right sided pneumonia though it did appear to be improved. She was subsequently admitted to the hospital for further evaluation and treatment for HCAP. Hospital Course Hospital Course: The patient was admitted to the medical floor on continuous cardiac telemetry and pulse oximetry. She was empirically placed on IV meropenem, vancomycin, and Levaquin for presumed healthcare associated pneumonia. Chest x-ray at time of admission did show improvement from prior imaging. Blood cultures remain negative. Infectious disease consultation was requested to guide antibiotic therapy. Per Dr. Orozco, patient has received appropriate length of therapy for treatment of pneumonia. The patient's respiratory status gradually improved with use of supplemental oxygen, CPAP, scheduled and as needed nebulizer treatments, Mucinex, home dose prednisone and Daliresp, and aggressive pulmonary toilet with incentive spirometer, flutter valve and chest physiotherapy. The patient's urinalysis suggested urinary tract infection and urine cultures grew ESBL E. coli and Klebsiella pneumonea; both colonizations and present on prior urine cultures. Again, infectious disease consultation was obtained. Per ID, the patient is colonized and these cultures results do not represent active infection outside of symptomology; IV antibiotics were subsequently discontinued. The patient's Barton catheter was exchanged prior to discharge. Upon resumption of the patient's Duragesic patch, she did experience slight hypotension. Patient's diltiazem, losartan and hydralazine were placed on hold. Baclofen and Lyrica doses was decreased. Blood pressure subsequently improved. Her other chronic medical conditions remained stable throughout her admission. At time of discharge, the patient is in stable condition, maintaining oxygen saturations on her baseline oxygen requirement, with appropriate blood pressures and well-controlled discomfort. She is discharged to [facility] where she is a long-term resident. She does not require further antibiotic treatment. Recommend continued aggressive pulmonary toilet. Follow-up with primary care provider within 1 week. Recommend further evaluation of medication regiment for dose reduction and discontinuation where appropriate to reduce polypharmacy. Return to the emergency department as needed for concerning symptoms. Physical Exam Vital Signs: Temp Pulse Resp BP Pulse Ox 98.4 F 79 18 110/58 L 99 07/16/19 07:57 07/16/19 07:57 07/16/19 07:57 07/16/19 09:56 07/16/19 07:57 Pulse Oximeter Continuous Start: 07/12/19 21:03 Freq: RTQ4 Status: Complete Protocol: Document 07/15/19 16:05 [facility] (Rec: 07/15/19 16:15 [facility] [id number]) Pulse Oximetry Assessment Oxygen Saturation (92-100) 96 Oxygen Flow Rate (L/min) 3 Oxygen Delivery Method Nasal Cannula Fraction of Inspired Oxygen (FIO2) 32 Equipment Usage Equipment in Use Continuous SpO2 Machine # 10 Intake & Output 07/15/19 07/16/19 07/17/19 06:59 06:59 06:59 Intake Total 3128 2092 Output Total 4400 2400 Balance -1272 -308 Weight 97.8 kg 100 kg General appearance: PRESENT: no acute distress, cooperative, morbidly obese, well-developed, well-nourished Head exam: PRESENT: atraumatic, normocephalic Eye exam: PRESENT: conjunctiva pink, EOMI, PERRLA. ABSENT: scleral icterus Ear exam: PRESENT: normal external ear exam Mouth exam: PRESENT: moist, tongue midline Teeth exam: PRESENT: poor dentation Respiratory exam: PRESENT: prolonged expiratory phas, rhonchi, symmetrical, unlabored, other - Baseline oxygen requirement. ABSENT: rales, wheezes Cardiovascular exam: PRESENT: RRR, +S1, +S2, systolic murmur. ABSENT: diastolic murmur, rubs Pulses: PRESENT: normal dorsalis pedis pul Vascular exam: PRESENT: normal capillary refill GI/Abdominal exam: PRESENT: normal bowel sounds, soft. ABSENT: distended, guarding, mass, organolmegaly, rebound, tenderness Rectal exam: PRESENT: deferred Gentrourinary exam: PRESENT: indwelling catheter Extremities exam: PRESENT: full ROM. ABSENT: calf tenderness, clubbing, pedal edema Neurological exam: PRESENT: alert, awake, oriented to person, oriented to place, oriented to time, oriented to situation, CN II-XII grossly intact. ABSENT: motor sensory deficit Psychiatric exam: PRESENT: appropriate affect, normal mood. ABSENT: homicidal ideation, suicidal ideation Skin exam: PRESENT: dry, intact, warm. ABSENT: cyanosis, rash Results Laboratory Results: WBC 7.3 10^3/uL (4.0-10.5) 07/15/19 05:10 RBC 3.23 10^6/uL (3.72-5.28) L 07/15/19 05:10 Hgb 9.6 g/dL (12.0-15.5) L 07/15/19 05:10 Hct 28.0 % (36.0-47.0) L 07/15/19 05:10 MCV 87 fl (80-97) 07/15/19 05:10 MCH 29.7 pg (27.0-33.4) 07/15/19 05:10 MCHC 34.3 g/dL (32.0-36.0) 07/15/19 05:10 RDW 14.3 % (11.5-14.0) H 07/15/19 05:10 Plt Count 165 10^3/uL (150-450) 07/15/19 05:10 Lymph % (Auto) Not Reportable 07/12/19 17:25 Elbert % (Auto) Not Reportable 07/12/19 17:25 Eos % (Auto) Not Reportable 07/12/19 17:25 Baso % (Auto) Not Reportable 07/12/19 17:25 Absolute Neuts (auto) Not Reportable 07/12/19 17:25 Absolute Lymphs (auto) Not Reportable 07/12/19 17:25 Absolute Monos (auto) Not Reportable 07/12/19 17:25 Absolute Eos (auto) Not Reportable 07/12/19 17:25 Absolute Basos (auto) Not Reportable 07/12/19 17:25 Total Counted 100 07/12/19 17:25 Seg Neutrophils % Not Reportable 07/12/19 17:25 Seg Neuts % (Manual) 94 % (42-78) H 07/12/19 17:25 Lymphocytes % (Manual) 6 % (13-45) L 07/12/19 17:25 Monocytes % (Manual) 0 % (3-13) L 07/12/19 17:25 Eosinophils % (Manual) 0 % (0-6) 07/12/19 17:25 Basophils % (Manual) 0 % (0-2) 07/12/19 17:25 Abs Neuts (Manual) 13.6 10^3/uL (1.7-8.2) H 07/12/19 17:25 Abs Lymphs (Manual) 0.9 10^3/uL (0.5-4.7) 07/12/19 17:25 Abs Monocytes (Manual) 0.0 10^3/uL (0.1-1.4) L 07/12/19 17:25 Absolute Eos (Manual) 0.0 10^3/uL (0.0-0.6) 07/12/19 17:25 Abs Basophils (Manual) 0.0 10^3/uL (0.0-0.2) 07/12/19 17:25 Platelet Comment ADEQUATE 07/12/19 17:25 Anisocytosis SLIGHT 07/12/19 17:25 PT 12.3 SEC (11.4-15.4) 07/12/19 17:25 INR 0.92 07/12/19 17:25 VBG pH 7.36 (7.30-7.42) 07/12/19 17:25 VBG pCO2 66.5 mmHg (35-63) H* 07/12/19 17:25 VBG HCO3 36.3 mmol/L (20-32) H 07/12/19 17:25 VBG Base Excess 7.8 mmol/L 07/12/19 17:25 Sodium 139.9 mmol/L (137-145) 07/15/19 05:10 Potassium 3.8 mmol/L (3.6-5.0) 07/15/19 05:10 Chloride 95 mmol/L (98-107) L 07/15/19 05:10 Carbon Dioxide 38 mmol/L (22-30) H 07/15/19 05:10 Anion Gap 7 (5-19) 07/15/19 05:10 BUN 28 mg/dL (7-20) H 07/15/19 05:10 Creatinine 1.25 mg/dL (0.52-1.25) 07/15/19 05:10 Est GFR ( Amer) 50 (>60) L 07/15/19 05:10 Est GFR (MDRD) Non-Af 42 (>60) L 07/15/19 05:10 Glucose 106 mg/dL (75-110) 07/15/19 05:10 POC Glucose 149 mg/dL (70-110) H 07/16/19 11:18 Lactic Acid 1.3 mmol/L (0.7-2.1) 07/13/19 10:10 Calcium 9.4 mg/dL (8.4-10.2) 07/15/19 05:10 Magnesium 2.2 mg/dL (1.6-2.3) 07/15/19 05:10 Total Bilirubin 0.4 mg/dL (0.2-1.3) 07/12/19 17:25 Direct Bilirubin 0.4 mg/dL (0.0-0.4) 07/12/19 17:25 Neonat Total Bilirubin Not Reportable 07/12/19 17:25 Neonat Direct Bilirubin Not Reportable 07/12/19 17:25 Neonat Indirect Bili Not Reportable 07/12/19 17:25 AST 21 U/L (14-36) 07/12/19 17:25 ALT 19 U/L (<35) 07/12/19 17:25 Alkaline Phosphatase 96 U/L (38-126) 07/12/19 17:25 NT-Pro-B Natriuret Pep 316 pg/mL (<450) 07/12/19 17:25 Total Protein 7.1 g/dL (6.3-8.2) 07/12/19 17:25 Albumin 3.8 g/dL (3.5-5.0) 07/12/19 17:25 Urine Color YELLOW 07/12/19 17:25 Urine Appearance CLEAR 07/12/19 17:25 Urine pH 7.0 (5.0-9.0) 07/12/19 17:25 Ur Specific [place] 1.012 07/12/19 17:25 Urine Protein NEGATIVE mg/dL (NEGATIVE) 07/12/19 17:25 Urine Glucose (UA) NEGATIVE mg/dL (NEGATIVE) 07/12/19 17:25 Urine Ketones NEGATIVE mg/dL (NEGATIVE) 07/12/19 17:25 Urine Blood NEGATIVE (NEGATIVE) 07/12/19 17:25 Urine Nitrite (Reflex) POSITIVE (NEGATIVE) H 07/12/19 17:25 Urine Bilirubin NEGATIVE (NEGATIVE) 07/12/19 17:25 Urine Urobilinogen NEGATIVE mg/dL (<2.0) 07/12/19 17:25 Leukocyte Esterase Rfl MODERATE (NEGATIVE) H 07/12/19 17:25 Urine RBC (Auto) 0 /HPF 07/12/19 17:25 Urine Bacteria (Auto) TRACE /HPF 07/12/19 17:25 Urine WBC (Reflex) 9 /HPF 07/12/19 17:25 Squamous Epi Cells Auto <1 /HPF 07/12/19 17:25 Urine Mucus (Auto) RARE /LPF 07/12/19 17:25 Urine Ascorbic Acid NEGATIVE (NEGATIVE) 07/12/19 17:25 07/12/19 17:25 NT-Pro-B Natriuret Pep 316 Impressions: Chest X-Ray 07/12/19 17:54 IMPRESSION: Improving but persistent consolidation in the right lower lung, possibly representing resolving pneumonia. There is new atelectasis at the left lung base. Probable tiny bilateral pleural effusions. Plan Plan of Treatment: The patient is discharged to [facility] where she is a long-term resident. Recommend follow-up with primary care provider within 1 week. Strongly recommend review of all medications with dose reduction and discontinuation were able due to polypharmacy. Patient did experience hypotension following resumption of her fentanyl Duragesic patch; have placed multiple antihypertensives on hold with appropriate improvement in blood pressure. Patient will require continued blood pressure monitoring and medication adjustments at SNF. Continue aggressive pulmonary toilet. Return to the emergency department as needed for concerning symptoms. Time Spent: Greater than 30 Minutes Stroke Is this a Stroke Patient?: No Acute Heart Failure - Is this a Heart Failure Patient?: No
== END 2019-07-16 13:53 | DRG 193 ==
LOC: ER 16:59 → EH 21:34 → 4S 22:47
PROVIDERS: ADMIT Emergency Medicine; ATTEND Emergency Medicine
DX: J18.9 Pneumonia, unspecified organism (principal); J96.22 Acute and chronic respiratory failure with hypercapnia; J96.21 Acute and chronic respiratory failure with hypoxia; I50.32 Chronic diastolic (congestive) heart failure; J44.1 Chronic obstructive pulmonary disease with (acute) exacerbation; F11.20 Opioid dependence, uncomplicated; N17.9 Acute kidney failure, unspecified; Z16.12 Extended spectrum beta lactamase (ESBL) resistance; J44.0 Chronic obstructive pulmonary disease with (acute) lower respiratory infection; I11.0 Hypertensive heart disease with heart failure; I48.91 Unspecified atrial fibrillation; I25.10 Atherosclerotic heart disease of native coronary artery without angina pectoris; I25.2 Old myocardial infarction; E78.5 Hyperlipidemia, unspecified; Z86.711 Personal history of pulmonary embolism; E11.9 Type 2 diabetes mellitus without complications; E66.9 Obesity, unspecified; M19.90 Unspecified osteoarthritis, unspecified site; F32.9 Major depressive disorder, single episode, unspecified; G89.4 Chronic pain syndrome; F03.90 Unspecified dementia, unspecified severity, without behavioral disturbance, psychotic disturbance, mood disturbance, and anxiety; Z86.14 Personal history of Methicillin resistant Staphylococcus aureus infection; Z90.49 Acquired absence of other specified parts of digestive tract; Z74.01 Bed confinement status; Z90.710 Acquired absence of both cervix and uterus; Z66 Do not resuscitate; G47.33 Obstructive sleep apnea (adult) (pediatric); Z22.39 Carrier of other specified bacterial diseases; Z82.49 Family history of ischemic heart disease and other diseases of the circulatory system; Z82.3 Family history of stroke; Z83.3 Family history of diabetes mellitus; Z83.438 Family history of other disorder of lipoprotein metabolism and other lipidemia; Z79.51 Long term (current) use of inhaled steroids; Z79.899 Other long term (current) drug therapy; Z79.4 Long term (current) use of insulin; Z88.2 Allergy status to sulfonamides; Z91.040 Latex allergy status; Z88.8 Allergy status to other drugs, medicaments and biological substances; Z68.30 Body mass index [BMI] 30.0-30.9, adult; M79.7 Fibromyalgia; Y95 Nosocomial condition; K59.00 Constipation, unspecified
CPT/HCPCS: 36415; 71045; 80048; 80053; 81001; 82803; 82962; 83605; 83735; 83880; 85025; 85027; 85610; 87040; 87086; 87088; 87186; 94640; 94660; 94667; 94668; 94762; 94799; 96365; 96367; 99285; J1644; J1815; J1956; J2185; J2270; J3370; J3490; J7030; J7060; J7120; J7512; J7614

== ENCOUNTER 2019-12-10 19:02 | Emergency (ER) | payer MEDICARE, MEDICAID ==
[2019-12-10 19:50] LABS: HEMATOCRIT 29.5 % (36.0-47.0); HEMOGLOBIN 9.6 g/dL (12.0-15.5); MEAN CORPUSCULAR HEMOGLOBIN 28.1 pg (27.0-33.4); MEAN CORPUSCULAR HGB CONC 32.5 g/dL (32.0-36.0); MEAN CORPUSCULAR VOLUME 86 fl (80-97); PLATELET COUNT 139 10^3/uL (150-450); RED BLOOD COUNT 3.41 10^6/uL (3.72-5.28); RED CELL DISTRIBUTION WIDTH 15.8 % (11.5-14.0); WHITE BLOOD COUNT 11.9 10^3/uL (4.0-10.5)
[2019-12-10 19:59] LABS: INTERNATIONAL RATION (INR) 1.11; PROTHROMBIN TIME 14.3 SEC (11.4-15.4)
[2019-12-10 20:07] LABS: ALBUMIN 3.2 g/dL (3.5-5.0); ALKALINE PHOSPHATASE 97 U/L (38-126); ANION GAP 7 (5-19); ASPARTATE AMINO TRANSFERASE 16 U/L (14-36); BILIRUBIN,DIRECT 0.1 mg/dL (0.0-0.4); BILIRUBIN,TOTAL 0.4 mg/dL (0.2-1.3); BLOOD UREA NITROGEN 66 mg/dL (7-20); CALCIUM 8.8 mg/dL (8.4-10.2); CARBON DIOXIDE 32 mmol/L (22-30); CHLORIDE 99 mmol/L (98-107); GLUCOSE 130 mg/dL (75-110); POTASSIUM 5.2 mmol/L (3.6-5.0); TOTAL PROTEIN 6.6 g/dL (6.3-8.2)
--- NOTE | 2019-12-10 20:07 | ER Document Report ---
ED General - General Chief Complaint: Shortness Of Breath Stated Complaint: RESPIRATORY DISTRESS Time Seen by Provider: 12/10/19 19:17 Primary Care Provider: KARTHIKEYAN HERNANDEZ MD [Primary Care Provider] - Follow up as needed TRAVEL OUTSIDE OF THE [place] IN LAST 30 DAYS: No - HPI Notes: Patient is a 74-year-old female, with multiple medical issues, who presents to the emergency department for evaluation of cough, shortness of breath, and low blood pressure. The patient states has been feeling poorly for about a week, but symptoms have worsened over the last 3 days. She states today she felt exceptionally dizzy. She was coughing more. She states that she had night sweats, woke with her nightgown being soaked, suspects that she did have a fever, although she is unaware of a documented 1. She has chronic pain in her neck and hips, which she states is not different from her baseline. She denies any chest pain. She notes her last hospitalization was back in August. She states she also feels as if her belly is swollen, and that she is "filled with fluid." - Related Data Allergies/Adverse Reactions: Sulfa (Sulfonamide Antibiotics) Allergy (Intermediate, Verified 12/10/19 19:11) latex Allergy (Unknown, Verified 12/10/19 19:11) adhesive tape Allergy (Verified 12/10/19 19:11) atorvastatin calcium [From Lipitor] Allergy (Verified 12/10/19 19:11) celecoxib [From Celebrex] Allergy (Verified 12/10/19 19:11) Past Medical History - General Information source: Patient, Outside Facility Records - Social History Smoking Status: Never Smoker Chew tobacco use (# tins/day): No Frequency of alcohol use: None Drug Abuse: None Family History: Arthritis, CAD, CVA, DM, Hyperlipidemia, Hypertension Patient has homicidal ideation: No - Past Medical History Cardiac Medical History: Reports: Hx Atrial Fibrillation, Hx Congestive Heart Failure - Diastolic dysfunction, Hx Coronary Artery Disease, Hx DVT, Hx Heart Attack, Hx Hypercholesterolemia, Hx Hypertension - essential, Hx Pulmonary Embolism, Hx Heart Murmur Denies: Hx Peripheral Vascular Disease Pulmonary Medical History: Reports: Hx Asthma, Hx Bronchitis, Hx COPD, Hx Pneumonia - Recurrent MRSA pneumonia., Hx Respiratory Failure - Chronic, Hx Sleep Apnea - Uses C Pap Denies: Hx Tuberculosis Neurological Medical History: Denies: Hx Seizures Endocrine Medical History: Reports: Hx Diabetes Mellitus Type 2. Denies: Hx Diabetes Mellitus Type 1, Hx Hyperthyroidism, Hx Hypothyroidism Renal/ Medical History: Reports: Hx Renal Insufficiency. Denies: Hx Peritoneal Dialysis GI Medical History: Reports: Hx Gastroesophageal Reflux Disease, Hx Hiatal Hernia. Denies: Hx Cirrhosis, Hx Crohn's Disease, Hx Hepatitis, Hx Ulcerative Colitis Musculoskeletal Medical History: Reports Hx Arthritis, Reports Hx Fibromyalgia, Reports Hx Gout, Reports Hx Muscle Weakness Skin Medical History: Denies Hx Eczema, Denies Hx Psoriasis Psychiatric Medical History: Reports: Hx Anxiety, Hx Dementia - Mild dementia, Hx Depression Infectious Medical History: Reports: Hx C-Diff, Hx MRSA. Denies: Hx Hepatitis Past Surgical History: Reports: Hx Appendectomy, Hx Cholecystectomy, Hx Hysterectomy, Hx Orthopedic Surgery - Multiple left hip procedures, 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 - Immunizations Hx Diphtheria, Pertussis, Tetanus Vaccination: Yes Hx Pneumococcal Vaccination: 05/20/13 Review of Systems - Review of Systems Constitutional: See HPI Respiratory: See HPI Gastrointestinal: See HPI Musculoskeletal: See HPI -: Yes All other systems reviewed and negative Physical Exam - Vital signs Vitals: Temp 98.2 F 12/10/19 19:11 - Notes Notes: This is a 74-year-old female who appears her stated age, in no acute distress. She has what sounds like significant secretions in the back of her throat, but intermittently coughs and is able to clear them. Vital signs reviewed, please refer to chart. Head is normocephalic, atraumatic. Pupils equal round, reactive to light. Neck is supple without meningismus. Heart is regular rate and rhythm. Lungs reveal coarse breath sounds but no wheezes, rales, rhonchi. Abdomen is obese, nontender, normoactive bowel sounds throughout. Extremities without cyanosis, clubbing. Posterior calves are nontender. Peripheral pulses are equal. Skin is warm and dry. Patient is awake, alert, neurological exam is nonfocal. Course - Re-evaluation Re-evalutation: 12/10/19 20:06 Patient presents to the emergency department for evaluation. On arrival her blood pressure is in the 80s. She is oxygenating well on her normal nasal cannula. She is afebrile. Laboratory investigations were ordered, including sepsis work-up and proBNP. Patient's blood pressure is normalized without any sort of intervention from this provider. Her current blood pressure is 112/65. I did review echocardiogram performed last year, which did not show any signs of systolic dysfunction. Awaiting proBNP and chest x-ray before any decisions are made on fluid resuscitation, especially given the patient's normotensive status at this time. She is stable, we will continue to monitor. 12/10/19 23:32 Patient's laboratory investigations failed to reveal anything significant or acute. Her chest x-ray is unremarkable. I went back and talked to the patient. Her urine is likely colonized, but given her mildly elevated white count I am inclined to treat. I will start her on Macrobid. She is given her first dose here. We talked at length about this. Her vitals have been stable, her pressures have improved, and there is been no intervention in regards to that. We started talking, the patient admits to having a significant family stressor, she learned that her former son-in-law was guilty of murder last week. She is still in contact with her granddaughter. She states that she believes all of her symptoms might be in part related to this. Certainly that is reasonable. At any rate I will treat the patient with Macrobid and have her follow-up closely with primary doctor. The patient states she also thinks that her blood pressure has been intermittently running low, would like to discuss medication changes. I told her that this needs to be addressed with her primary care provider as well. She voiced understanding and the patient will be discharged. - Vital Signs Vital signs: Temp Pulse Resp BP Pulse Ox 98.2 F 77 28 H 130/66 H 100 12/10/19 19:13 12/10/19 19:13 12/10/19 23:01 12/10/19 23:00 12/10/19 23:01 - Laboratory Result Diagrams: 12/10/19 19:36 12/10/19 19:36 Laboratory results interpreted by me: 12/10/19 12/10/19 12/10/19 19:36 19:36 19:36 WBC 11.9 H RBC 3.41 L Hgb 9.6 L Hct 29.5 L RDW 15.8 H Plt Count 139 L Seg Neuts % (Manual) 83 H Lymphocytes % (Manual) 8 L Abs Neuts (Manual) 10.4 H Potassium 5.2 H Carbon Dioxide 32 H BUN 66 H Creatinine 1.99 H Est GFR ( Amer) 29 L Est GFR (MDRD) Non-Af 24 L Glucose 130 H Lactic Acid NT-Pro-B Natriuret Pep 2120 H Albumin 3.2 L Urine Protein Urine Blood Leukocyte Esterase Rfl 12/10/19 12/10/19 20:29 22:17 WBC RBC Hgb Hct RDW Plt Count Seg Neuts % (Manual) Lymphocytes % (Manual) Abs Neuts (Manual) Potassium Carbon Dioxide BUN Creatinine Est GFR ( Amer) Est GFR (MDRD) Non-Af Glucose Lactic Acid 0.5 L NT-Pro-B Natriuret Pep Albumin Urine Protein 100 H Urine Blood LARGE H Leukocyte Esterase Rfl LARGE H - Diagnostic Test Radiology reviewed: Reports reviewed Radiology results interpreted by me: 12/10/19 23:34 Chest X-Ray 12/10/19 19:29 IMPRESSION: Mild pulmonary edema pattern, without pleural effusions or focal consolidation. - EKG Interpretation by Me Additional EKG results interpreted by me: 12/10/19 20:07 Sinus mechanism with a rate of 73 bpm. Left axis deviation. IVCD. Artifact in leads V5 and V6. LVH. She has some septal T wave changes, nonspecific in nature, that are different from prior study. This could be lead placement versus ischemia. No ST elevation concerning for infarction. Discharge - Discharge Clinical Impression: Leukocytosis, Dyspnea, Hypotension, Stress, UTI (urinary tract infection) due to urinary indwelling Barton catheter Condition: Stable Disposition: HOME-SNF (ED ONLY) Instructions: Nitrofurantoin ([facility]), Urinary Tract Infection ([facility]), Dyspnea, Nonspecific ([facility]), Grief Reaction ([facility]) Additional Instructions: Please discuss your medications with your primary care provider. He may be able to identify medications that you can come off of, as you expressed a wish to do so. Please take all of the Macrobid as directed until gone. Follow-up with your primary care provider next week. If you develop worsening or new concerning symptoms of any sort, please return immediately to the emergency department for reevaluation. Referrals: KARTHIKEYAN HERNANDEZ MD [Primary Care Provider] - Follow up as needed
[2019-12-10 20:12] LABS: VENOUS BLOOD BASE EXCESS 4.2 mmol/L; VENOUS BLOOD HCO3 30.9 mmol/L (20-32); VENOUS BLOOD PCO2 55.2 mmHg (35-63); VENOUS BLOOD PH 7.37 (7.30-7.42)
[2019-12-10 20:13] LABS: ABSOLUTE MONOCYTES # (MANUAL) 0.6 10^3/uL (0.1-1.4); BAND NEUTROPHILS % (MANUAL) 4 % (3-5); BASOPHILS % (MANUAL) 0 % (0-2); EOSINOPHILS % (MANUAL) 0 % (0-6); LYMPHOCYTES % (MANUAL) 8 % (13-45); MONOCYTES % (MANUAL) 5 % (3-13); SEGMENTED NEUTROPHILS % (MAN) 83 % (42-78); TOTAL CELLS COUNTED 100
[2019-12-10 20:14] LABS: ANISOCYTOSIS SLIGHT; PLATELET COMMENT ADEQUATE
[2019-12-10 20:23] LABS: TROPONIN I 0.042 ng/mL
[2019-12-10 21:00] LABS: APPEARANCE,URINE TURBID; BILIRUBIN,URINE NEGATIVE (NEGATIVE); COLOR,URINE YELLOW; GLUCOSE, URINE NEGATIVE (NEGATIVE); KETONES,URINE NEGATIVE (NEGATIVE); PROTEIN,URINE 100 mg/dL (NEGATIVE); URINE SPECIFIC GRAVITY 1.015; UROBILINOGEN,URINE NEGATIVE mg/dL (<2.0)
--- NOTE | 2019-12-10 21:27 | RADIOLOGY REPORT (SQ) ---
XR CHEST 1 VIEW HISTORY: Dyspnea, cough. COMPARISON: 07/12/2019 FINDINGS: The heart size is enlarged with mild central pulmonary vascular congestion. No consolidation, pleural effusion, or pneumothorax is seen. The bony structures are preserved. IMPRESSION: Mild pulmonary edema pattern, without pleural effusions or focal consolidation.
[2019-12-10] MEDS ORDERED: NITROFURANTOIN MONOHYD/M-CRYST 100 MG CAPSULE PO ONE (23:32)
[2019-12-11 00:17] VITALS: BP 139/72
--- NOTE | 2019-12-11 19:05 | EKG REPORT ---
SEVERITY:- ABNORMAL ECG - NONSPECIFIC IVCD WITH LAD LEFT VENTRICULAR HYPERTROPHY SINUS RHYTHM.BASELINE ARTIFACT : Confirmed by: Yesenia Graham MD 11-Dec-2019 19:04:40
== END 2019-12-11 00:17 ==
LOC: ER 19:02
DX: J44.9 Chronic obstructive pulmonary disease, unspecified (principal); T83.511A Infection and inflammatory reaction due to indwelling urethral catheter, initial encounter; N39.0 Urinary tract infection, site not specified; Y84.6 Urinary catheterization as the cause of abnormal reaction of the patient, or of later complication, without mention of misadventure at the time of the procedure; F43.9 Reaction to severe stress, unspecified; I95.9 Hypotension, unspecified; I11.0 Hypertensive heart disease with heart failure; I50.30 Unspecified diastolic (congestive) heart failure; I45.9 Conduction disorder, unspecified; I25.2 Old myocardial infarction; E11.9 Type 2 diabetes mellitus without complications; R05 Cough; R06.02 Shortness of breath; R42 Dizziness and giddiness; R61 Generalized hyperhidrosis; M54.2 Cervicalgia; M25.551 Pain in right hip; M25.552 Pain in left hip; G89.29 Other chronic pain; Z87.01 Personal history of pneumonia (recurrent); Z88.2 Allergy status to sulfonamides; Z91.040 Latex allergy status; Z91.048 Other nonmedicinal substance allergy status; Z88.8 Allergy status to other drugs, medicaments and biological substances
CPT/HCPCS: 93005; 99285; 51701; 36415; 87040; 87086; 82962; 83605; 85025; 85610; 87070; 87077; 87088; 81001; 84484; 87186; 82803; 87150 ×26; 83880; 71045; 93010; A9270; 80048; J8499

== ENCOUNTER 2020-03-27 20:51 | Inpatient (IN) | payer MEDICARE, MEDICAID ==
[2020-03-27 21:29] LABS: ABSOLUTE EOSINOPHILS # (AUTO) 0.1 10^3/uL (0.0-0.6); ABSOLUTE LYMPHOCYTES (AUTO) 2.3 10^3/uL (0.5-4.7); ABSOLUTE MONOCYTES (AUTO) 0.8 10^3/uL (0.1-1.4); ABSOLUTE NEUT (AUTO) 8.6 10^3/uL (1.7-8.2); BASOPHILS % (AUTO) 0.3 % (0-2); EOSINOPHILS % (AUTO) 0.8 % (0-6); HEMATOCRIT 32.9 % (36.0-47.0); HEMOGLOBIN 10.9 g/dL (12.0-15.5); LYMPHOCYTES % (AUTO) 19.3 % (13-45); MEAN CORPUSCULAR HEMOGLOBIN 29.7 pg (27.0-33.4); MEAN CORPUSCULAR HGB CONC 33.1 g/dL (32.0-36.0); MEAN CORPUSCULAR VOLUME 90 fl (80-97); MONOCYTES % (AUTO) 6.5 % (3-13); PLATELET COUNT 198 10^3/uL (150-450); RED BLOOD COUNT 3.67 10^6/uL (3.72-5.28); SEGMENTED NEUTROPHILS % (AUTO) 73.1 % (42-78); TOTAL CELLS COUNTED % (AUTO) 100 %; WHITE BLOOD COUNT 11.7 10^3/uL (4.0-10.5)
--- NOTE | 2020-03-27 21:35 | RADIOLOGY REPORT (SQ) ---
EXAM DESCRIPTION: CT HEAD WITHOUT IV CONTRAST COMPLETED DATE/TME: 03/27/2020 21:04 CLINICAL INDICATION: 74-year-old female with decreased mental status. COMPARISON: 03/30/2019. TECHNIQUE: CT brain without contrast. This exam was performed according to our departmental dose optimization program which includes use of automated exposure control, adjustment of the mA and/or kV according to patient size and/or use of iterative reconstruction technique. FINDINGS: Examination findings are limited secondary to motion artifact despite attempts at rescanning. Multifocal regions of patchy hypoattenuation are present in a subcortical and periventricular deep white matter distribution, nonspecific; however, most likely represent small vessel ischemic disease, age indeterminate. The ventricles, and sulci prominence compatible with underlying volume loss stable in comparison to the previous examination. The mojica-white matter differentiation is preserved. There is no mass effect, midline shift, intra- or extra-axial fluid collection/acute hemorrhage. The osseous structures are unremarkable. The paranasal sinuses and LEFT side mastoid air cells are clear. Opacification of the RIGHT side mastoid air cells, a finding which can be seen with sequela of infectious or inflammatory etiology. IMPRESSION: 1. No acute intracranial abnormalities. Nonspecific white matter change most likely small vessel ischemic disease, age indeterminate. 2. CT is insensitive for early evaluation of acute stroke. If there is clinical concern for acute ischemia, an MRI may be considered. 3. Motion limited examination.
--- NOTE | 2020-03-27 21:40 | ER Document Report ---
ED Dizziness/Weakness - General Chief Complaint: Altered Mental Status Stated Complaint: DECREASED MENTAL STATUS Time Seen by Provider: 03/27/20 21:03 Primary Care Provider: KARTHIKEYAN HERNANDEZ MD [Primary Care Provider] - Follow up as needed Mode of Arrival: Medic Information source: Patient Notes: 74 year old female arrives via EMS with chief complaint of having weakness and disorientation. Actually nursing staff advised the patient is quite oriented but has a severely infected Barton catheter. On her prior history she has a history of anemia UTI hyperkalemia pneumonia hypo-magnesium hyponatremia and she was admitted in July by Dr. Gordon Stiles. Patient arrives from [place]. Patient is a DNR and her level of consciousness is in and out. EMS reports no concern for aspiration but patient has food and drink all over her shirt. Patient has had no cough but she had acute mental status changes x30 minutes progressively worse over the weekend and tonight. Please note patient was begun on BuSpar 4 days ago and is wearing a fentanyl patch and was given Phenergan earlier today for nausea. Also note the BuSpar side effects include dizziness nausea headaches nervousness lightheadedness drowsiness tiredness blurry vision restlessness dry mouth sore throat and insomnia TRAVEL OUTSIDE OF THE [place] IN LAST 30 DAYS: No - HPI Patient complains to provider of: Weakness - Related Data Allergies/Adverse Reactions: Sulfa (Sulfonamide Antibiotics) Allergy (Intermediate, Verified 03/27/20 21:15) latex Allergy (Unknown, Verified 03/27/20 21:15) adhesive tape Allergy (Verified 03/27/20 21:15) atorvastatin calcium [From Lipitor] Allergy (Verified 03/27/20 21:15) celecoxib [From Celebrex] Allergy (Verified 03/27/20 21:15) Past Medical History - Social History Smoking Status: Unknown if Ever Smoked Family History: Arthritis, CAD, CVA, DM, Hyperlipidemia, Hypertension - Past Medical History Cardiac Medical History: Reports: Hx Atrial Fibrillation, Hx Congestive Heart Failure - Diastolic dysfunction, Hx Coronary Artery Disease, Hx DVT, Hx Heart Attack, Hx Hypercholesterolemia, Hx Hypertension - essential, Hx Pulmonary Embolism, Hx Heart Murmur Denies: Hx Peripheral Vascular Disease Pulmonary Medical History: Reports: Hx Asthma, Hx Bronchitis, Hx COPD, Hx Pneumonia - Recurrent MRSA pneumonia., Hx Respiratory Failure - Chronic, Hx Sleep Apnea - Uses C Pap Denies: Hx Tuberculosis Neurological Medical History: Denies: Hx Seizures Endocrine Medical History: Reports: Hx Diabetes Mellitus Type 2. Denies: Hx Diabetes Mellitus Type 1, Hx Hyperthyroidism, Hx Hypothyroidism Renal/ Medical History: Reports: Hx Renal Insufficiency. Denies: Hx Peritoneal Dialysis GI Medical History: Reports: Hx Gastroesophageal Reflux Disease, Hx Hiatal Hernia. Denies: Hx Cirrhosis, Hx Crohn's Disease, Hx Hepatitis, Hx Ulcerative Colitis Musculoskeletal Medical History: Reports Hx Arthritis, Reports Hx Fibromyalgia, Reports Hx Gout, Reports Hx Muscle Weakness Skin Medical History: Denies Hx Eczema, Denies Hx Psoriasis Psychiatric Medical History: Reports: Hx Anxiety, Hx Dementia - Mild dementia, Hx Depression Infectious Medical History: Reports: Hx C-Diff, Hx MRSA. Denies: Hx Hepatitis Past Surgical History: Reports: Hx Appendectomy, Hx Cholecystectomy, Hx H ysterectomy, Hx Orthopedic Surgery - Multiple left hip procedures, 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 - Immunizations Hx Diphtheria, Pertussis, Tetanus Vaccination: Yes Hx Pneumococcal Vaccination: 05/20/13 Physical Exam - Vital signs Vitals: Temp 97.6 F 03/27/20 20:51 Interpretation: Hypotensive, Tachycardic - Notes Notes: Pickwickian body habitus - HEENT Head: Normocephalic, Atraumatic Eyes: Normal Pupils: PERRL Nasal: Normal Mouth/Lips: Normal Mucous membranes: Dry Pharynx: Normal Neck: Normal - Respiratory Respiratory status: Labored Chest status: Nontender Breath sounds: Stridor Chest palpation: Normal - Cardiovascular Rhythm: Regular Heart sounds: Normal auscultation Murmur: No - Abdominal Inspection: Morbidly Obese Distension: Distended Bowel sounds: Hypoactive Tenderness: Nontender Organomegaly: No organomegaly - Rectal Tenderness: No - Genitourinary External exam: Normal - Barton replaced by staff; old catheter had white mucoid d ischarge and accumulated mattering - Back Back: Normal, Nontender - Extremities General upper extremity: Normal inspection, Nontender, Normal color, Normal ROM, Normal temperature General lower extremity: Normal inspection, Nontender, Normal color, Normal ROM, Normal temperature, Normal weight bearing, Other - Status post TKR. No: Tavo's sign - Neurological Neuro grossly intact: No Cognition: Confused Kimberly Coma Scale Eye Opening: To Pain Kimberly Coma Scale Verbal: Confused Motor strength normal: LUE, RUE, LLE, RLE Course - Vital Signs Vital signs: Temp Pulse Resp BP Pulse Ox 97.6 F 99 03/27/20 20:51 03/27/20 21:00 - Laboratory Result Diagrams: 03/27/20 21:02 03/27/20 21:02 Laboratory results interpreted by me: 03/27/20 03/27/20 03/27/20 21:02 21:02 22:00 WBC 11.7 H RBC 3.67 L Hgb 10.9 L Hct 32.9 L RDW 16.0 H Absolute Neuts (auto) 8.6 H Chloride 90 L Carbon Dioxide 38 H BUN 84 H Creatinine 2.32 H Est GFR ( Amer) 25 L Est GFR (MDRD) Non-Af 20 L Glucose 170 H POC Glucose Direct Bilirubin 0.5 H Urine Blood MODERATE H Ur Leukocyte Esterase LARGE H 03/27/20 22:06 WBC RBC Hgb Hct RDW Absolute Neuts (auto) Chloride Carbon Dioxide BUN Creatinine Est GFR ( Amer) Est GFR (MDRD) Non-Af Glucose POC Glucose 173 H Direct Bilirubin Urine Blood Ur Leukocyte Esterase - Diagnostic Test Radiology reviewed: Reports reviewed - EKG Interpretation by Me EKG shows normal: Sinus rhythm Rate: Normal Rhythm: NSR - 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 I also read this EKG myself. Critical Care Note - Critical Care Note Comments: I discussed this case with Dr. Gordon Stiles at [phone] and he accepts patient for admission medical floor Discharge - Discharge Clinical Impression: Medication side effects UTI (urinary tract infection) due to urinary indwelling Braton catheter Qualifiers: Indwelling urinary catheter type: indwelling urethral catheter Encounter type: initial encounter Qualified Code(s): T83.511A - Infection and inflammatory reaction due to indwelling urethral catheter, initial encounter; N39.0 - Urinary tract infection, site not specified Condition: Stable Disposition: ADMITTED INPATIENT Admitting Provider: Go (Hospitalist) Unit Admitted: Medical Floor Referrals: KARTHIKEYAN HERNANDEZ MD [Primary Care Provider] - Follow up as needed
[2020-03-27 21:42] LABS: ALBUMIN 3.7 g/dL (3.5-5.0); ALKALINE PHOSPHATASE 84 U/L (38-126); ASPARTATE AMINO TRANSFERASE 21 U/L (14-36); BILIRUBIN,DIRECT 0.5 mg/dL (0.0-0.4); BILIRUBIN,TOTAL 0.6 mg/dL (0.2-1.3); BLOOD UREA NITROGEN 84 mg/dL (7-20); CALCIUM 9.2 mg/dL (8.4-10.2); CHLORIDE 90 mmol/L (98-107); GLUCOSE 170 mg/dL (75-110); POTASSIUM 4.1 mmol/L (3.6-5.0); TOTAL PROTEIN 6.7 g/dL (6.3-8.2)
[2020-03-27 21:49] LABS: ANION GAP 10 (5-19); CARBON DIOXIDE 38 mmol/L (22-30)
--- NOTE | 2020-03-27 21:49 | RADIOLOGY REPORT (SQ) ---
EXAM DESCRIPTION: [facility]: XR CHEST 1 VIEW CLINICAL HISTORY: 74 years Female; altered mental status; COMPARISON: 12/10/2019 FINDINGS: Lungs: Mild interstitial scarring and several calcified granulomata are again noted. There are no focal acute infiltrates. No pneumothorax or pleural effusion. Mediastinum: Heart appears enlarged, although this may be exaggerated by positioning. No significant superior mediastinal widening. Bones: Bony structures are unremarkable. IMPRESSION: 1. No acute pulmonary findings.
[2020-03-27] MEDS ORDERED: NALOXONE HCL INJ 2 MG/2 ML DISP.SYRIN IV ONE (22:16)
[2020-03-27 22:25] LABS: APPEARANCE,URINE CLOUDY; BILIRUBIN,URINE NEGATIVE (NEGATIVE); COLOR,URINE YELLOW; GLUCOSE, URINE NEGATIVE (NEGATIVE); KETONES,URINE NEGATIVE (NEGATIVE); LEUKOCYTE ESTERASE,URINE LARGE (NEGATIVE); NITRITE,URINE NEGATIVE (NEGATIVE); PROTEIN,URINE NEGATIVE (NEGATIVE); URINE SPECIFIC GRAVITY 1.012; UROBILINOGEN,URINE NEGATIVE mg/dL (<2.0)
[2020-03-27] MEDS ORDERED: VANCOMYCIN HCL INJ 1000 MG VIAL IV ONE (22:50)
[2020-03-27] MEDS ORDERED: PIPERACILLIN/TAZOBACTAM 3.375 GM VIAL IV ONE (23:03)
[2020-03-27] MEDS ORDERED: LIDOCAINE 1% INJ-PF (10 MG/ML) 30 ML SDV NEB ONE (23:13)
[2020-03-27] MEDS ORDERED: LIDOCAINE 1% INJ-PF (10 MG/ML) 30 ML SDV ONE (23:18)
[2020-03-27] MEDS ORDERED: LORAZEPAM INJ 2 MG/1 ML VIAL IV PRN (23:42)
[2020-03-27] MEDS ORDERED: MAGNESIUM HYDROXIDE SUSP 30 ML UDCUP PO PRN (23:42)
[2020-03-27] MEDS ORDERED: MORPHINE SULFATE 10 MG/ML INJ IV PRN ×4 (23:42→23:51)
[2020-03-27] MEDS ORDERED: ACETAMINOPHEN 650 MG SUPP.RECT PR PRN (23:42)
[2020-03-27] MEDS ORDERED: MELATONIN 5 MG TABLET PO PRN (23:42)
[2020-03-27] MEDS ORDERED: METOPROLOL TARTRATE PF/INJ 5 MG/5 ML SDV IV PRN (23:42)
[2020-03-27] MEDS ORDERED: GUAIFENESIN SYRP 200 MG/10 ML UDC PO PRN (23:42)
[2020-03-27] MEDS ORDERED: HYDRALAZINE HCL INJ/PF 20 MG/1 ML SDV IV PRN (23:42)
[2020-03-27] MEDS ORDERED: MAG HYDROX/AL HYDROX/SIMETH SUSP 30 ML UDCUP PO PRN (23:42)
[2020-03-27] MEDS ORDERED: ACETAMINOPHEN 325 MG TABLET PO PRN (23:42)
[2020-03-27] MEDS ORDERED: CEFEPIME 2 GM/D5W RTU 2 GM/50 ML RTUPB IV ONE (23:45)
[2020-03-28] MEDS ORDERED: GLUCAGON,HUMAN RECOMB 1 MG INJ IM PRN (00:12)
[2020-03-28] MEDS ORDERED: DEXTROSE 50%-WATER 25 GM/50 ML DISP.SYRIN IV PRN ×2 (00:12)
[2020-03-28] MEDS ORDERED: RINGERS SOLUTION,LACTATED 1,000 ML IV PRN (00:12)
[2020-03-28] MEDS ORDERED: DEXTROSE 40% GEL 15 GM TUBE PO PRN ×2 (00:12)
[2020-03-28] MEDS ORDERED: ONDANSETRON HCL INJ/PF 4 MG/2 ML SDV IV PRN (00:12)
--- NOTE | 2020-03-28 02:15 | EKG REPORT ---
SEVERITY:- ABNORMAL ECG - WANDERING PACEMAKER LEFT ANTERIOR FASCICULAR BLOCK LVH WITH SECONDARY REPOLARIZATION ABNORMALITY : Confirmed by: Yesenia Graham MD 28-Mar-2020 02:13:53
[2020-03-28 04:36] LABS: ABSOLUTE EOSINOPHILS # (AUTO) 0.1 10^3/uL (0.0-0.6); ABSOLUTE LYMPHOCYTES (AUTO) 1.9 10^3/uL (0.5-4.7); ABSOLUTE NEUT (AUTO) 9.4 10^3/uL (1.7-8.2); BASOPHILS % (AUTO) 0.3 % (0-2); EOSINOPHILS % (AUTO) 0.5 % (0-6); HEMATOCRIT 32.6 % (36.0-47.0); HEMOGLOBIN 11.2 g/dL (12.0-15.5); LYMPHOCYTES % (AUTO) 15.6 % (13-45); MEAN CORPUSCULAR HEMOGLOBIN 30.3 pg (27.0-33.4); MEAN CORPUSCULAR HGB CONC 34.2 g/dL (32.0-36.0); MEAN CORPUSCULAR VOLUME 89 fl (80-97); MONOCYTES % (AUTO) 7.8 % (3-13); PLATELET COUNT 193 10^3/uL (150-450); RED BLOOD COUNT 3.68 10^6/uL (3.72-5.28); RED CELL DISTRIBUTION WIDTH 15.6 % (11.5-14.0); SEGMENTED NEUTROPHILS % (AUTO) 75.8 % (42-78); TOTAL CELLS COUNTED % (AUTO) 100 %; WHITE BLOOD COUNT 12.4 10^3/uL (4.0-10.5)
[2020-03-28 04:58] LABS: ANION GAP 10 (5-19); BLOOD UREA NITROGEN 81 mg/dL (7-20); CALCIUM 9.5 mg/dL (8.4-10.2); CARBON DIOXIDE 36 mmol/L (22-30); CHLORIDE 92 mmol/L (98-107); GLUCOSE 172 mg/dL (75-110); POTASSIUM 3.4 mmol/L (3.6-5.0)
[2020-03-28] MEDS ORDERED: HEPARIN SOD (PORCINE) 5,000 UNIT/ML 1 ML VIAL ONE (05:00)
[2020-03-28] MEDS: HEPARIN SOD (PORCINE) 5,000 UNIT/ML 1 ML VIAL SUBCUT SCH ×3 (05:04→23:23)
--- NOTE | 2020-03-28 05:13 | PDOC H&P ---
History of Present Illness Admission Date/PCP: 03/27/2020 23:44 KARTHIKEYAN HERNANDEZ MD Patient complains of: Altered mental status History of Present Illness: PORSHA WALDRON is a 74 year old female who presents the emergency room via EMS with a 3-day history of altered mental status (disorientation). prison staff reports that the patient has been progressively deteriorating in her mental status becoming increasingly disoriented and somnolent. Patient's altered mental status has been associated with generalized weakness and accompanied by decreased oral intake. Patient symptoms became severe this evening. Patient has altered mental status and is unable to provide input into her medical history. In the emergency room the patient was found to be clinically dehydrated and somnolent with resolution of her somnolence obtained by removing her fentanyl patch and giving her Narcan. She became more alert but remains confused. She was noted to have pyuria in the emergency room and blood and urine cultures were obtained prior to initiation of antibiotic therapy. Patient was subsequently admitted to hospital for further evaluation treatment. Past Medical History Past Medical History: Due to the patient's altered mental status all historical data is obtained from the best available reliable source. Cardiac Medical History: Reports: Atrial Fibrillation, Congestive Heart Failure - Diastolic dysfunction, Coronary Artery Disease, DVT, Myocardial Infarction, Hyperlipidema, Hypertension - essential, Pulmonary Embolism, Heart Murmur Denies: Peripheral Vascular Disease Pulmonary Medical History: Reports: Asthma, Bronchitis, Chronic Obstructive Pulmonary Disease (COPD), Pneumonia - Recurrent MRSA pneumonia., Respiratory Failure - Chronic, Sleep Apnea - Uses C Pap Denies: Tuberculosis EENT Medical History: Denies: Cataracts, Ears - Hearing aids Neurological Medical History: Denies: Hemorrhagic CVA, Ischemic CVA, Seizures Endocrine Medical History: Reports: Diabetes Mellitus Type 2 Denies: Diabetes Mellitus Type 1, Hyperthyroidism, Hypothyroidism Renal/ Medical History: Denies: Chronic Kidney Disease, Nephrolithiasis Malignancy Medical History: Reports: None GI Medical History: Reports: Gastroesophageal Reflux Disease, Hiatal Hernia Denies: Cirrhosis, Crohn's Disease, Hepatitis, Ulcerative Colitis Musculoskeltal Medical History: Reports: Arthritis, Fibromyalgia, Gout Skin Medical History: Denies: Eczema, Psoriasis Psychiatric Medical History: Reports: Dementia, Depression Denies: Alcohol Dependency, Substance Abuse, Tobacco Dependency Traumatic Medical History: Reports: None Hematology: Reports: Anemia Denies: Bleeding Tendencies Infectious Medical History: Reports: Clostridium Difficile, Methicillin- Resistant Staph Aureus Past Surgical History Past Surgical History: Due to the patient's altered mental status all historical data is obtained from the best available reliable source. Past Surgical History: Reports: Appendectomy, Cholecystectomy, Hysterectomy, Orthopedic Surgery - Multiple left hip procedures, 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 Social History Information Source: [facility] Records Lives with: Shelter Smoking Status: Former Smoker Electronic Cigarette use?: No Frequency of Alcohol Use: None Hx Recreational Drug Use: No Drugs: None Hx Prescription Drug Abuse: No Past Social History Note: Due to the patient's altered mental status all historical data is obtained from the best available reliable source. - Advance Directive Resuscitation Status: Full Code Surrogate healthcare decision maker:: Vera Zamoar Family History Family History: Arthritis, CAD, CVA, DM, Hyperlipidemia, Hypertension Family History: Due to the patient's altered mental status all historical data is obtained from the best available reliable source. Parental Family History Reviewed: Yes Children Family History Reviewed: No Sibling(s) Family History Reviewed.: Yes Medication/Allergy Home Medications: Acetylcysteine [Mucomist 10% Neb 400 mg/4 ml Vial] 1 appful IH Q6 03/27/20 Allopurinol [Zyloprim 100 mg Tablet] 200 mg PO DAILY 03/27/20 Azithromycin 250 mg PO DAILY 03/27/20 Baclofen [Baclofen 10 mg Tablet] 10 mg PO TID 03/27/20 Budesonide [Pulmicort Neb 0.25 mg/2 ml Ampule] 0.25 mg NEB BID 03/27/20 Buspirone HCl 1 tab PO Q12H 03/27/20 Diltiazem HCl [Cardizem 30 mg Tablet] 1 tab PO TID 03/27/20 Docusate Sodium [Colace 100 mg Capsule] 100 mg PO BID 03/27/20 Duloxetine HCl [Cymbalta] 30 mg PO DAILY 03/27/20 Eyelid Cleanser Comb No.7 [Ocusoft Lid Scrub] 1 each TP BID 03/27/20 Fentanyl [Duragesic 75 Mcg/Hr Transdermal Patch] 1 each TD Q3D 03/27/20 Fexofenadine HCl [Shaniqua Allergy] 60 mg PO DAILY 03/27/20 Fluticasone Propionate [Flonase Nasal Christmas 50 Mcg/Christmas 16 gm] 2 spray NASL Q12 03/27/20 Fluticasone/Salmeterol [Advair 500-50 Diskus 14 Dose/Diskus] 1 inh IH Q12H Furosemide [Lasix 80 mg Tablet] 80 mg PO QAM 03/27/20 Guaifenesin [Mucus ER] 600 mg PO Q12H 03/27/20 Insulin Aspart [Novolog Insulin 100 Unit/1 ml 10 ml] 0 unit SUBCUT .SLD SCALE 03/27/20 Insulin Detemir [Levemir Insulin 100 units/mL Insulin Pen] 32 unit SUBCUT QHS 03/27/20 Ipratropium/Albuterol Sulfate [Duoneb 3 ml Ampul] 3 ml NEB Q4H 03/27/20 Lidocaine [Lidocaine Pain Relief] 1 each TP Q12H 03/27/20 Linaclotide [Linzess 145 Mcg Capsule] 145 mcg PO DAILY 03/27/20 Magnesium Oxide [Magnesium] 400 mg PO DAILY 03/27/20 Melatonin 10 mg PO QHS 03/27/20 Metolazone [Zaroxolyn 5 Mg Tablet] 5 mg PO DAILY 03/27/20 Metoprolol Tartrate [Lopressor 25 mg Tablet] 25 mg PO BID 03/27/20 Multivitamin [Multiple Vitamins] 1 tab PO DAILY 03/27/20 Nitroglycerin [Nitrostat 0.4 mg (1/150 Gr) Tabs 25/Bottle] 1 tab SL Q5MP PRN 03/27/20 Nystatin [Mycostatin 243991 Unit/mL Susp 60 mL] 10 ml PO Q6H 03/27/20 Olopatadine HCl [Pataday] 1 drop OU DAILY 03/27/20 Omeprazole Magnesium [Prilosec Otc] 40 mg PO DAILY 03/27/20 Polyethylene Glycol 3350 [Miralax Powder 17 gm/Packet] 1 packet PO DAILY 03/27/20 Polymyxin B Sulf/Trimethoprim [Polytrim Eye Drops] 1 drop OP QID 03/27/20 Polyvinyl Alcohol [Liquitears 1.4% Ophth Soln 15 ml] 1 drop OP Q6H 03/27/20 Potassium Chloride [Klor-Con] 20 meq PO BID 03/27/20 Prednisone [Deltasone 20 mg Tablet] 20 mg PO DAILY 03/27/20 Pregabalin [Lyrica 50 Mg Capsule] 50 mg PO QHS 03/27/20 Promethazine HCl [Phenergan 25 mg Tablet] 25 mg PO ASDIR PRN 03/27/20 Ranolazine [Ranexa 500 mg Tab.sr] 500 mg PO Q12 03/27/20 Roflumilast [Daliresp] 500 mcg PO DAILY 03/27/20 Sennosides/Docusate Sodium [Senna Plus 8.6-50 mg Tablet] 1 each PO DAILY 03/27/20 Simethicone [Gas Relief] 80 mg PO Q6H 03/27/20 Umeclidinium [place] [Incruse Ellipta] 1 inh IH DAILY 03/27/20 Witch Alicia [Preparation H] 1 each TP QHS 03/27/20 Allergies/Adverse Reactions: Sulfa (Sulfonamide Antibiotics) Allergy (Intermediate, Verified 03/27/20 21:15) latex Allergy (Unknown, Verified 03/27/20 21:15) adhesive tape Allergy (Verified 03/27/20 21:15) atorvastatin calcium [From Lipitor] Allergy (Verified 03/27/20 21:15) celecoxib [From Celebrex] Allergy (Verified 03/27/20 21:15) Review of Systems ROS unobtainable: Due to mental status - Altered mental status plus dementia Physical Exam Vital Signs: Temp Pulse Resp BP Pulse Ox 97.6 F 99 03/27/20 20:51 03/27/20 21:00 Intake & Output 03/25/20 03/26/20 03/27/20 23:59 23:59 23:59 Weight 89.9 kg General appearance: PRESENT: no acute distress, cooperative, obese, other - Somnolent but arousable Head exam: PRESENT: atraumatic, normocephalic Eye exam: PRESENT: conjunctiva pink. ABSENT: conjunctival injection, scleral icterus Ear exam: PRESENT: normal external ear exam. ABSENT: bleeding, drainage Mouth exam: PRESENT: dry mucosa, neck supple Neck exam: ABSENT: thyromegaly, tracheal deviation Respiratory exam: PRESENT: clear to auscultation elia, symmetrical, unlabored Cardiovascular exam: PRESENT: irregular rhythm - Irregularly irregular rate and rhythm. ABSENT: clicks, gallop, rubs Pulses: PRESENT: normal radial pulses, normal dorsalis pedis pul Vascular exam: ABSENT: normal capillary refill - Delayed capillary refill at 3 seconds, pallor GI/Abdominal exam: PRESENT: normal bowel sounds, soft Rectal exam: PRESENT: deferred Extremities exam: ABSENT: joint swelling, pedal edema Musculoskeletal exam: ABSENT: deformity, dislocation Neurological exam: PRESENT: altered - Somnolent but arousable, CN II-XII grossly intact, other - Confused when aroused Psychiatric exam: PRESENT: other - Somnolent but arousable with confusion upon arousal Skin exam: PRESENT: dry, intact, warm. ABSENT: jaundice, rash, urticaria Results Laboratory Results: 03/27/20 21:02 03/27/20 21:02 03/27/20 03/27/20 03/27/20 21:02 21:02 22:00 WBC 11.7 H RBC 3.67 L Hgb 10.9 L Hct 32.9 L MCV 90 MCH 29.7 MCHC 33.1 RDW 16.0 H Plt Count 198 Seg Neutrophils % 73.1 Sodium 137.9 Potassium 4.1 Chloride 90 L Carbon Dioxide 38 H Anion Gap 10 BUN 84 H Creatinine 2.32 H Est GFR ( Amer) 25 L Glucose 170 H Calcium 9.2 Total Bilirubin 0.6 AST 21 Alkaline Phosphatase 84 Total Protein 6.7 Albumin 3.7 Urine Color YELLOW Urine Appearance CLOUDY Urine pH 6.0 Ur Specific [place] 1.012 Urine Protein NEGATIVE Urine Glucose (UA) NEGATIVE Urine Ketones NEGATIVE Urine Blood MODERATE H Urine Nitrite NEGATIVE Ur Leukocyte Esterase LARGE H Urine WBC (Auto) >182 Urine RBC (Auto) 19 03/27/20 21:02 Troponin I 0.057 Impressions: Chest X-Ray 03/27/20 21:00 IMPRESSION: 1. No acute pulmonary findings. Head CT 03/27/20 21:04 IMPRESSION: 1. No acute intracranial abnormalities. Nonspecific white matter change most likely small vessel ischemic disease, age indeterminate. 2. CT is insensitive for early evaluation of acute stroke. If there is clinical concern for acute ischemia, an MRI may be considered. 3. Motion limited examination. Assessment and Plan - Diagnosis (1) Urinary tract infection associated with indwelling urethral catheter Qualifiers: Encounter type: initial encounter Qualified Code(s): T83.511A - Infection and inflammatory reaction due to indwelling urethral catheter, initial encounter; N39.0 - Urinary tract infection, site not specified Is this a current diagnosis for this admission?: Yes (2) Delirium Is this a current diagnosis for this admission?: Yes (3) HTN (hypertension) Qualifiers: Hypertension type: essential hypertension Qualified Code(s): I10 - Essential (primary) hypertension Is this a current diagnosis for this admission?: Yes (4) Diabetes mellitus type 2 in obese Is this a current diagnosis for this admission?: Yes (5) Chronic pain syndrome Is this a current diagnosis for this admission?: Yes - Plan Summary Summary: Patient will be admitted to the medical floor where she will receive routine supportive and symptomatic cares. She will be treated with IV cefepime 2 g every 12 hours initially pending blood and urine culture results. Serial lactic acid levels will be performed. Patient will be placed on a diabetic and cardiac restricted diet. AC and at bedtime Accu-Cheks will be obtained with sliding scale insulin for hyperglycemia and a hypoglycemic protocol in place. CBCs, metabolic profiles and additional laboratory and/or radiographic evaluations will be obtained as appropriate. Patient will receive Ativan 1 mg IV every 4 hours as needed for anxiety or restlessness. Patient received morphine sulfate 2 to 4 mg IV every 2 hours as needed for pain. Patient's usual snf medications will be restarted, as appropriate, when her medication list has been verified and reconciled. - Time Time Spent with patient: Less than 15 minutes Medications reviewed and adjusted accordingly: Yes Anticipated Discharge Disposition: Long Term Facility Anticipated Discharge Timeframe: within 72 hours - Inpatient Certification Based on my medical assessment, after consideration of the patient's comorbidities, presenting symptoms, or acuity I expect that the services needed warrant INPATIENT care.: Yes I certify that my determination is in accordance with my understanding of Medicare's requirements for reasonable and necessary INPATIENT services [42 CFR 412.3e].: Yes Medical Necessity: Need Close Monitoring Due to Risk of Patient Decompensation, Need For IV Fluids, Need for IV Antibiotics
[2020-03-28] MEDS ORDERED: ACETAMINOPHEN 650 MG SUPP.RECT PR PRN (07:30)
[2020-03-28] MEDS ORDERED: INSULIN REG, HUMAN 100 UNIT/ML 3 ML VIAL (PYX) SUBCUT SCH (08:00)
[2020-03-28] MEDS ORDERED: CEFEPIME 2 GM/D5W RTU 2 GM/50 ML RTUPB IV SCH (10:00)
[2020-03-28] MEDS ORDERED: DOCUSATE SODIUM 100 MG CAPSULE PO SCH (10:00)
[2020-03-28] MEDS: INSULIN LISPRO 100 UNIT/ML 3 ML VIAL SUBCUT SCH ×3 (12:06→23:21)
--- NOTE | 2020-03-28 12:07 | CDI QUERY ---
CDI Query CDI Review: Dear Provider, Please document in PROGRESS NOTES and D/C summary if you agree with the clinical data: ACUTE METABOLIC ENCEPHALOPATHY, resolving? ACUTE TOXIC ENCEPHALOPATHY, resolving due to fentanyl patch removal? DELIRIUM only? OTHER? Clinical data: DELIRIUM SOMNOLENCE CONFUSION AMS FENTANYL PATCH REMOVED Thanks, Inés Peralta, CDI [phone]
[2020-03-28] MEDS: LEVALBUTEROL HCL NEB 0.63 MG/3 ML AMPUL NEB PRN (13:20)
[2020-03-28] MEDS ORDERED: (PENDING PHARMACY ID) (Nystatin 10 ML) PO SCH (14:45)
[2020-03-28] MEDS ORDERED: (PENDING PHARMACY ID) (Buspirone Hcl [Buspirone Hcl] 1 TAB) PO SCH (14:45)
[2020-03-28] MEDS ORDERED: (PENDING PHARMACY ID) (Fluticasone/Salmeterol 1 INH) IH SCH (14:45)
[2020-03-28] MEDS ORDERED: FUROSEMIDE 80 MG TABLET PO SCH (14:45)
[2020-03-28] MEDS ORDERED: LIDOCAINE 5% (700 MG) TRANSDERMAL ADH..PATCH TP PRN (15:30)
--- NOTE | 2020-03-28 15:41 | PDOC PROGRESS REPORT ---
Subjective Subjective:: Per Admitting Physician: "PORSHA WALDRON is a 74 year old female who presents the emergency room via EMS with a 3-day history of altered mental status (disorientation). group home staff reports that the patient has been progressively deteriorating in her mental status becoming increasingly disoriented and somnolent. Patient's altered mental status has been associated with generalized weakness and accompanied by decreased oral intake. Patient symptoms became severe this evening. Patient has altered mental status and is unable to provide input into her medical history. In the emergency room the patient was found to be clinically dehydrated and somnolent with resolution of her somnolence obtained by removing her fentanyl patch and giving her Narcan. She became more alert but remains confused. She was noted to have pyuria in the emergency room and blood and urine cultures were obtained prior to initiation of antibiotic therapy. Patient was subsequently admitted to hospital for further evaluation treatment." 03/28/2020 Patient is much more alert and fully oriented today. She is on excessive number of sedating medications and is very likely these adversely affected her in the setting of acute UTI. She is extremely high risk for polypharmacy now in the future. I confirmed all of the doses of her narcotics and other sedating medications and she demanded that these be restarted. If she gets confused, we will need to dial back the doses and frequencies of these. She confirms she is still currently wearing a 25 mcg fentanyl patch. Creatinine lower. Chest x-ray and head CT without acute findings. UA showed obvious infection and urine culture is pending. Cardiac medications restarted. Other than severe generalized fatigue and weakness, cough of chronic bronchitis/COPD, and chronic shortness of breath, patient has no new complaints. Reason For Visit: UTI,AMS Physical Exam Vital Signs: Temp Pulse Resp BP Pulse Ox 99.0 F 100 18 138/71 H 98 03/28/20 08:29 03/28/20 13:20 03/28/20 13:20 03/28/20 08:29 03/28/20 13:20 Intake & Output 03/27/20 03/28/20 03/29/20 06:59 06:59 06:59 Weight 89.9 kg General appearance: PRESENT: no acute distress, morbidly obese Head exam: PRESENT: atraumatic, normocephalic Eye exam: PRESENT: conjunctiva pink. ABSENT: scleral icterus Mouth exam: PRESENT: moist Respiratory exam: PRESENT: rhonchi - Upper airway rhonchorous sounds. ABSENT: rales, wheezes Cardiovascular exam: PRESENT: RRR. ABSENT: diastolic murmur, rubs, systolic murmur GI/Abdominal exam: PRESENT: normal bowel sounds, soft. ABSENT: distended, guarding, mass, organolmegaly, rebound, tenderness Extremities exam: ABSENT: pedal edema Neurological exam: PRESENT: alert, awake, oriented to person, oriented to place, oriented to time, oriented to situation Psychiatric exam: PRESENT: appropriate affect, normal mood Skin exam: PRESENT: dry, intact, warm Results Laboratory Results: 03/28/20 04:20 03/28/20 04:20 03/27/20 03/27/20 03/27/20 21:02 21:02 22:00 WBC 11.7 H RBC 3.67 L Hgb 10.9 L Hct 32.9 L MCV 90 MCH 29.7 MCHC 33.1 RDW 16.0 H Plt Count 198 Seg Neutrophils % 73.1 Sodium 137.9 Potassium 4.1 Chloride 90 L Carbon Dioxide 38 H Anion Gap 10 BUN 84 H Creatinine 2.32 H Est GFR ( Amer) 25 L Glucose 170 H Serum Osmolality Lactic Acid Calcium 9.2 Magnesium Total Bilirubin 0.6 AST 21 Alkaline Phosphatase 84 Total Protein 6.7 Albumin 3.7 Urine Color YELLOW Urine Appearance CLOUDY Urine pH 6.0 Ur Specific [place] 1.012 Urine Protein NEGATIVE Urine Glucose (UA) NEGATIVE Urine Ketones NEGATIVE Urine Blood MODERATE H Urine Nitrite NEGATIVE Ur Leukocyte Esterase LARGE H Urine WBC (Auto) >182 Urine RBC (Auto) 19 03/28/20 03/28/20 03/28/20 00:34 04:20 04:20 WBC 12.4 H RBC 3.68 L Hgb 11.2 L Hct 32.6 L MCV 89 MCH 30.3 MCHC 34.2 RDW 15.6 H Plt Count 193 Seg Neutrophils % 75.8 Sodium Potassium Chloride Carbon Dioxide Anion Gap BUN Creatinine Est GFR ( Amer) Glucose Serum Osmolality Lactic Acid 1.1 0.7 Calcium Magnesium Total Bilirubin AST Alkaline Phosphatase Total Protein Albumin Urine Color Urine Appearance Urine pH Ur Specific [place] Urine Protein Urine Glucose (UA) Urine Ketones Urine Blood Urine Nitrite Ur Leukocyte Esterase Urine WBC (Auto) Urine RBC (Auto) 09/03/28/20 03/28/20 04:20 04:20 08:16 WBC RBC Hgb Hct MCV MCH MCHC RDW Plt Count Seg Neutrophils % Sodium 137.7 Potassium 3.4 L Chloride 92 L Carbon Dioxide 36 H Anion Gap 10 BUN 81 H Creatinine 1.83 H Est GFR ( Amer) 32 L Glucose 172 H Serum Osmolality 310 H Lactic Acid 0.8 Calcium 9.5 Magnesium 2.4 H Total Bilirubin AST Alkaline Phosphatase Total Protein Albumin Urine Color Urine Appearance Urine pH Ur Specific [place] Urine Protein Urine Glucose (UA) Urine Ketones Urine Blood Urine Nitrite Ur Leukocyte Esterase Urine WBC (Auto) Urine RBC (Auto) 03/27/20 21:02 Troponin I 0.057 Impressions: Chest X-Ray 03/27/20 21:00 IMPRESSION: 1. No acute pulmonary findings. Head CT 03/27/20 21:04 IMPRESSION: 1. No acute intracranial abnormalities. Nonspecific white matter change most likely small vessel ischemic disease, age indeterminate. 2. CT is insensitive for early evaluation of acute stroke. If there is clinical concern for acute ischemia, an MRI may be considered. 3. Motion limited examination. Assessment and Plan - Diagnosis (1) UTI (urinary tract infection) due to urinary indwelling Barton catheter Qualifiers: Indwelling urinary catheter type: indwelling urethral catheter Encounter type: initial encounter Qualified Code(s): T83.511A - Infection and inf lammatory reaction due to indwelling urethral catheter, initial encounter; N39.0 - Urinary tract infection, site not specified Is this a current diagnosis for this admission?: Yes Plan: UA infected, urine culture pending Started on cefepime on admission, previous urine cultures reveal consistent resistance to this drug Antibiotics changed to Zosyn (2) Acute encephalopathy Is this a current diagnosis for this admission?: Yes Plan: Acute metabolic cephalopathy Multifactorial: UTI, polypharmacy Treat underlying causes as above Consider reducing sedating medication dose and frequency (3) Medication side effects Is this a current diagnosis for this admission?: Yes (4) Acute and chronic respiratory failure with hypoxia Is this a current diagnosis for this admission?: Yes (5) Acute kidney injury superimposed on chronic kidney disease Is this a current diagnosis for this admission?: Yes Plan: Baseline creatinine approximately 1.5-1.8 per records Trend BMP Suspect due to UTI IV fluids given on admission, stopped due to very high risk of volume overload due to CHF on multiple diuretics at home (6) Adrenal insufficiency Is this a current diagnosis for this admission?: Yes Plan: Iatrogenic adrenal insufficiency from long-term steroid use for COPD On 60 mg prednisone daily outpatient, continued here (7) Atrial fibrillation Qualifiers: Atrial fibrillation type: chronic Is this a current diagnosis for this admission?: Yes Plan: Rate controlled Paroxysmal A. fib Not on blood thinner outpatient (8) COPD with acute bronchitis Is this a current diagnosis for this admission?: Yes Plan: Chronic On long-term prednisone, reportedly unable to be tapered very much per patient as she has recurrence of severe respiratory symptoms Continue home inhalers/nebs (9) Chronic diastolic CHF (congestive heart failure) Is this a current diagnosis for this admission?: Yes Plan: No exacerbation Continue home cardiac medications including diuretics Avoid IV fluids (10) Diabetes mellitus type 2 in obese Is this a current diagnosis for this admission?: Yes Plan: Low-dose correctional insulin, Accu-Cheks (11) ESBL (extended spectrum beta-lactamase) producing bacteria infection Is this a current diagnosis for this admission?: Yes Plan: Seen in microbiology history, cultures growing ESBL E. coli, E faecalis, pseudomonas aeruginosa (12) HTN (hypertension) Qualifiers: Hypertension type: essential hypertension Qualified Code(s): I10 - Essential (primary) hypertension Is this a current diagnosis for this admission?: Yes (13) MRSA (methicillin resistant Staphylococcus aureus) colonization Is this a current diagnosis for this admission?: Yes Plan: History of MRSA in sputum (14) Morbid obesity Is this a current diagnosis for this admission?: Yes Plan: Needs weight loss (15) Chronic pain syndrome Is this a current diagnosis for this admission?: Yes Plan: On extensive array of pain medications, high risk for polypharmacy (16) History of pulmonary embolism Is this a current diagnosis for this admission?: Yes Plan: Not on a blood thinner at home (17) Obstructive sleep apnea Is this a current diagnosis for this admission?: Yes - Plan Summary Summary: Patient will be admitted to the medical floor where she will receive routine supportive and symptomatic cares. She will be treated with IV cefepime 2 g every 12 hours initially pending blood and urine culture results. Serial lactic acid levels will be performed. Patient will be placed on a diabetic and cardiac restricted diet. AC and at bedtime Accu-Cheks will be obtained with sliding scale insulin for hyperglycemia and a hypoglycemic protocol in place. CBCs, metabolic profiles and additional laboratory and/or radiographic evaluations will be obtained as appropriate. Patient will receive Ativan 1 mg IV every 4 hours as needed for anxiety or restlessness. Patient received morphine sulfate 2 to 4 mg IV every 2 hours as needed for pain. Patient's usual long-term medications will be restarted, as appropriate, when her medication list has been verified and reconciled. - Time Time Spent with patient: 25-34 minutes Medications reviewed and adjusted accordingly: Yes Anticipated Discharge Disposition: [facility] Anticipated Discharge Timeframe: within 72 hours - Inpatient Certification Based on my medical assessment, after consideration of the patient's comorbidities, presenting symptoms, or acuity I expect that the services needed warrant INPATIENT care.: Yes I certify that my determination is in accordance with my understanding of Medicare's requirements for reasonable and necessary INPATIENT services [42 CFR 412.3e].: Yes Medical Necessity: Significant Comorbidiites Make Outpatient Treatment Too Risky, Need Close Monitoring Due to Risk of Patient Decompensation, Need for IV Antibiotics, Risk of Complication if Not Cared For in Hospital, Risk of Diagnosis Which Will Require Inpatient Eval/Care/Monitoring
[2020-03-28] MEDS: IPRATROPIUM/ALBUTEROL 0.5-2.5 MG/3 ML AMPUL NEB SCH ×3 (15:51→23:47)
[2020-03-28] MEDS ORDERED: BUDESONIDE NEB 0.5 MG/2 ML AMPUL NEB ONE (15:55)
[2020-03-28] MEDS: ACETYLCYSTEINE 10% NEB 400 MG/4 ML VIAL NEB SCH (15:58)
[2020-03-28] MEDS: BUDESONIDE NEB 0.25 MG/2 ML AMPUL NEB SCH (16:00)
[2020-03-28] MEDS: FUROSEMIDE 40 MG TABLET PO SCH ×2 (17:24→23:24)
[2020-03-28] MEDS: POLYVINYL ALCOHOL 1.4% OPH SOLN 15 ML OU SCH (17:25)
[2020-03-28] MEDS: NYSTATIN 500000 UNIT/5 ML UDCUP PO SCH ×2 (17:28→23:19)
[2020-03-28] MEDS: DOCUSATE SODIUM 100 MG CAPSULE PO SCH (17:29)
[2020-03-28] MEDS: SIMETHICONE 80 MG TAB.CHEW PO SCH ×2 (17:31→23:24)
[2020-03-28] MEDS ORDERED: [UNRECOGNIZED DRUG - OTHER] TP SCH (18:00)
[2020-03-28] MEDS ORDERED: BUDESONIDE NEB 0.25 MG/2 ML AMPUL NEB SCH (18:00)
[2020-03-28] MEDS ORDERED: ACETYLCYSTEINE 10% NEB 400 MG/4 ML VIAL NEB SCH (18:00)
[2020-03-28] MEDS ORDERED: PIPERACILLIN/TAZOBACTAM 3.375 GM VIAL IV SCH (18:00)
[2020-03-28] MEDS ORDERED: POTASSIUM CHLORIDE 20 MEQ PACKET PO SCH (18:00)
[2020-03-28] MEDS: PIPERACILLIN SODIUM/TAZOBACTAM 2.25 GM in NORMAL SALINE 50 ML IV SCH ×2 (18:25→23:51)
[2020-03-28] MEDS: OXYCODONE HCL SR 10 MG TABLET PO PRN (18:32)
[2020-03-28] MEDS: POLYMYXIN B SULFATE/TMP OPH SOLN 10 ML OS SCH ×2 (18:33→23:51)
[2020-03-28] MEDS ORDERED: [UNRECOGNIZED DRUG - OTHER] SUBCUT SCH (22:00)
[2020-03-28] MEDS ORDERED: INSULIN DETEMIR 32 UNIT SUBCUT SCH (22:00)
[2020-03-28] MEDS ORDERED: WITCH HAZEL TP SCH (22:00)
[2020-03-28] MEDS ORDERED: PREGABALIN 50 MG CAPSULE PO SCH (22:00)
[2020-03-28] MEDS ORDERED: (PENDING PHARMACY ID) (Melatonin [Melatonin] 10 MG) PO SCH (22:00)
[2020-03-28] MEDS ORDERED: CEFEPIME HCL 2 GM in DEXTROSE 5%-WATER 50 ML IV SCH (22:00)
[2020-03-28] MEDS: ONDANSETRON HCL INJ/PF 4 MG/2 ML SDV IV PRN (23:20)
[2020-03-28] MEDS: INSULIN GLARGINE,HUM.REC.ANLOG 1,000 UNIT/10 ML VIAL SUBCUT SCH (23:22)
[2020-03-28] MEDS: METOPROLOL TARTRATE 25 MG TABLET PO SCH (23:23)
[2020-03-28] MEDS: PREGABALIN 50 MG CAPSULE PO SCH (23:24)
[2020-03-28] MEDS: RANOLAZINE 500 MG TAB.SR.12H PO SCH (23:25)
[2020-03-28] MEDS: BUSPIRONE HCL 10 MG TABLET PO SCH (23:26)
[2020-03-28] MEDS: GUAIFENESIN 600 MG TABLET.SA PO SCH (23:26)
[2020-03-28] MEDS: MELATONIN 5 MG TABLET PO SCH (23:26)
[2020-03-28] MEDS: FLUTICASONE NASAL SPRAY 50 MCG/SPRY 120 SPRAY/16 GM NASL SCH (23:29)
[2020-03-28] MEDS: DILTIAZEM HCL 30 MG TABLET PO SCH (23:31)
[2020-03-28] MEDS: BACLOFEN 10 MG TABLET PO SCH ×2 (23:31→23:53)
[2020-03-29] MEDS: POLYMYXIN B SULFATE/TMP OPH SOLN 10 ML OS SCH ×5 (00:01→22:31)
[2020-03-29] MEDS: BUSPIRONE HCL 10 MG TABLET PO SCH ×3 (00:01→22:29)
[2020-03-29] MEDS: POLYVINYL ALCOHOL 1.4% OPH SOLN 15 ML OU SCH ×4 (00:16→18:31)
[2020-03-29] MEDS: LEVALBUTEROL HCL NEB 0.63 MG/3 ML AMPUL NEB PRN (01:58)
[2020-03-29] MEDS: ACETYLCYSTEINE 10% NEB 400 MG/4 ML VIAL NEB SCH ×4 (01:58→20:29)
[2020-03-29] MEDS: IPRATROPIUM/ALBUTEROL 0.5-2.5 MG/3 ML AMPUL NEB SCH ×4 (03:55→20:29)
[2020-03-29] MEDS: ONDANSETRON HCL INJ/PF 4 MG/2 ML SDV IV PRN (04:45)
[2020-03-29] MEDS: OXYCODONE HCL SR 10 MG TABLET PO PRN ×2 (04:45→16:07)
[2020-03-29] MEDS: DILTIAZEM HCL 30 MG TABLET PO SCH ×3 (05:05→22:28)
[2020-03-29] MEDS: NYSTATIN 500000 UNIT/5 ML UDCUP PO SCH ×3 (05:07→18:11)
[2020-03-29] MEDS: PREGABALIN 50 MG CAPSULE PO SCH ×3 (05:08→22:28)
[2020-03-29] MEDS: BACLOFEN 10 MG TABLET PO SCH ×3 (05:08→22:29)
[2020-03-29] MEDS: SIMETHICONE 80 MG TAB.CHEW PO SCH ×3 (05:08→18:11)
[2020-03-29] MEDS: HEPARIN SOD (PORCINE) 5,000 UNIT/ML 1 ML VIAL SUBCUT SCH ×3 (05:09→22:30)
[2020-03-29] MEDS: FUROSEMIDE 40 MG TABLET PO SCH ×3 (05:09→22:28)
[2020-03-29] MEDS: PIPERACILLIN SODIUM/TAZOBACTAM 2.25 GM in NORMAL SALINE 50 ML IV SCH ×3 (05:14→18:11)
[2020-03-29] MEDS: PANTOPRAZOLE SODIUM 40 MG TABLET.DR PO SCH (06:42)
[2020-03-29 06:45] LABS: ABSOLUTE EOSINOPHILS # (AUTO) 0.1 10^3/uL (0.0-0.6); ABSOLUTE LYMPHOCYTES (AUTO) 1.5 10^3/uL (0.5-4.7); ABSOLUTE MONOCYTES (AUTO) 0.7 10^3/uL (0.1-1.4); ABSOLUTE NEUT (AUTO) 5.4 10^3/uL (1.7-8.2); BASOPHILS % (AUTO) 0.3 % (0-2); EOSINOPHILS % (AUTO) 0.9 % (0-6); HEMATOCRIT 33.2 % (36.0-47.0); HEMOGLOBIN 11.2 g/dL (12.0-15.5); LYMPHOCYTES % (AUTO) 19.1 % (13-45); MEAN CORPUSCULAR HGB CONC 33.8 g/dL (32.0-36.0); MEAN CORPUSCULAR VOLUME 89 fl (80-97); MONOCYTES % (AUTO) 8.8 % (3-13); PLATELET COUNT 170 10^3/uL (150-450); RED BLOOD COUNT 3.75 10^6/uL (3.72-5.28); RED CELL DISTRIBUTION WIDTH 15.7 % (11.5-14.0); SEGMENTED NEUTROPHILS % (AUTO) 70.9 % (42-78); TOTAL CELLS COUNTED % (AUTO) 100 %; WHITE BLOOD COUNT 7.6 10^3/uL (4.0-10.5)
[2020-03-29 07:15] LABS: ANION GAP 8 (5-19); BLOOD UREA NITROGEN 60 mg/dL (7-20); CALCIUM 9.8 mg/dL (8.4-10.2); CARBON DIOXIDE 38 mmol/L (22-30); CHLORIDE 91 mmol/L (98-107); GLUCOSE 193 mg/dL (75-110)
[2020-03-29] MEDS: BUDESONIDE NEB 0.25 MG/2 ML AMPUL NEB SCH ×2 (07:56→20:29)
[2020-03-29] MEDS ORDERED: (PENDING PHARMACY ID) (Omeprazole Magnesium [Prilosec Otc] 40 MG) PO SCH (10:00)
[2020-03-29] MEDS ORDERED: (PENDING PHARMACY ID) (Linaclotide 145 MCG) PO SCH (10:00)
[2020-03-29] MEDS ORDERED: (PENDING PHARMACY ID) (Roflumilast [Daliresp] 500 MCG) PO SCH (10:00)
[2020-03-29] MEDS ORDERED: (PENDING PHARMACY ID) (Fexofenadine Hcl [Allegra Allergy] 60 MG) PO SCH (10:00)
[2020-03-29] MEDS ORDERED: (PENDING PHARMACY ID) (Magnesium Oxide [Magnesium] 400 MG) PO SCH (10:00)
[2020-03-29] MEDS ORDERED: POTASSI CL 20 MEQ/50 ML RIDER 20 MEQ/50 ML RTUPB IV ONE (10:01)
[2020-03-29] MEDS: INSULIN LISPRO 100 UNIT/ML 3 ML VIAL SUBCUT SCH ×4 (10:07→22:31)
[2020-03-29] MEDS: POLYETHYLENE GLYCOL 3350 POWDER 17 GM/1 PACKET PO SCH (10:07)
[2020-03-29] MEDS: GUAIFENESIN 600 MG TABLET.SA PO SCH ×2 (10:08→22:28)
[2020-03-29] MEDS: ALLOPURINOL 100 MG TABLET PO SCH (10:09)
[2020-03-29] MEDS: LORATADINE 10 MG TABLET PO SCH (10:09)
[2020-03-29] MEDS: SENNOSIDES/DOCUSATE 8.6-50 MG 1 EACH TABLET PO SCH (10:09)
[2020-03-29] MEDS: RANOLAZINE 500 MG TAB.SR.12H PO SCH ×2 (10:09→22:29)
[2020-03-29] MEDS: DOCUSATE SODIUM 100 MG CAPSULE PO SCH ×2 (10:09→18:11)
[2020-03-29] MEDS: ROFLUMILAST 500 MCG TABLET PO SCH (10:10)
[2020-03-29] MEDS: DULOXETINE HCL 30 MG CAPSULE.DR PO SCH (10:10)
[2020-03-29] MEDS: PREDNISONE 20 MG TABLET PO SCH (10:10)
[2020-03-29] MEDS: MAGNESIUM OXIDE 400 MG TABLET PO SCH (10:10)
[2020-03-29] MEDS: METOLAZONE 5 MG TABLET PO SCH (10:10)
[2020-03-29] MEDS: MULTIVITAMIN TABLET PO SCH (10:10)
[2020-03-29] MEDS: METOPROLOL TARTRATE 25 MG TABLET PO SCH ×2 (10:10→22:29)
[2020-03-29] MEDS: FLUTICASONE NASAL SPRAY 50 MCG/SPRY 120 SPRAY/16 GM NASL SCH ×2 (10:25→22:30)
[2020-03-29] MEDS: FLUTICASONE/VILANTEROL 200-25 MCG/DOSE IH SCH (10:26)
[2020-03-29] MEDS: UMECLIDINIUM BROMIDE 62.5 MCG/DOSE IH SCH (10:26)
[2020-03-29] MEDS: POTASSIUM CHLORIDE 20 MEQ PACKET PO SCH ×2 (11:12→18:11)
[2020-03-29] MEDS: OLOPATADINE HCL 0.1% OPH SOLN 5 ML OU SCH (11:12)
[2020-03-29] MEDS: POTASSI CL 20 MEQ/50 ML RIDER 20 MEQ/50 ML RTUPB IV SCH ×3 (11:14→19:30)
[2020-03-29] MEDS: FENTANYL 25 MCG/HR PATCH.TD72 TD SCH (14:40)
--- NOTE | 2020-03-29 14:56 | PDOC PROGRESS REPORT ---
Subjective Subjective:: Per Admitting Physician: "PORSHA WALDRON is a 74 year old female who presents the emergency room via EMS with a 3-day history of altered mental status (disorientation). [facility] staff reports that the patient has been progressively deteriorating in her mental status becoming increasingly disoriented and somnolent. Patient's altered mental status has been associated with generalized weakness and accompanied by decreased oral intake. Patient symptoms became severe this evening. Patient has altered mental status and is unable to provide input into her medical history. In the emergency room the patient was found to be clinically dehydrated and somnolent with resolution of her somnolence obtained by removing her fentanyl patch and giving her Narcan. She became more alert but remains confused. She was noted to have pyuria in the emergency room and blood and urine cultures were obtained prior to initiation of antibiotic therapy. Patient was subsequently admitted to hospital for further evaluation treatment." 03/28/2020 Patient is much more alert and fully oriented today. She is on excessive number of sedating medications and is very likely these adversely affected her in the setting of acute UTI. She is extremely high risk for polypharmacy now in the future. I confirmed all of the doses of her narcotics and other sedating medications and she demanded that these be restarted. If she gets confused, we will need to dial back the doses and frequencies of these. She confirms she is still currently wearing a 25 mcg fentanyl patch. Creatinine lower. Chest x-ray and head CT without acute findings. UA showed obvious infection and urine culture is pending. Cardiac medications restarted. Other than severe generalized fatigue and weakness, cough of chronic bronchitis/COPD, and chronic shortness of breath, patient has no new complaints. 03/29/2020 Patient seems to be a little bit better today but states she is still in a lot of musculoskeletal pain which is chronic. I have continued her home medications and noted there are many of them. I encouraged the patient to ask her primary c are doctor about trying to taper some of these medications off. She is very high risk for polypharmacy. Potassium notably low today and this is being actively repleted. Blood cultures negative. Antibiotics continued for ESBL UTI. I called the microbiology lab and clarified the results of the urine culture which had not been put in. They stated patient has what is most likely going to grow out to be Pseudomonas and possibly Klebsiella but we should have finalized results over the next 2 days. Otherwise, patient has no new complaints. I have consulted physical therapy and Occupational Therapy. Reason For Visit: UTI,AMS Physical Exam Vital Signs: Temp Pulse Resp BP Pulse Ox 98.9 F 90 22 H 91/44 L 99 03/29/20 11:04 03/29/20 11:04 03/29/20 11:04 03/29/20 11:04 03/29/20 11:04 Intake & Output 03/28/20 03/29/20 03/30/20 06:59 06:59 06:59 Intake Total 1280 300 Output Total 3000 300 Balance -1720 0 Weight 89.9 kg 89.9 kg 89.9 kg Exam: General appearance: PRESENT: no acute distress, morbidly obese, states that she is having a bowel movement on her bedpan Head exam: PRESENT: atraumatic, normocephalic Eye exam: PRESENT: conjunctiva pink. ABSENT: scleral icterus Mouth exam: PRESENT: moist Respiratory exam: PRESENT: rhonchi - Upper airway rhonchorous sounds. ABSENT: rales, wheezes Cardiovascular exam: PRESENT: RRR. ABSENT: diastolic murmur, rubs, systolic murmur GI/Abdominal exam: PRESENT: normal bowel sounds, soft. ABSENT: distended, guar ding, mass, organolmegaly, rebound, tenderness Extremities exam: ABSENT: pedal edema Neurological exam: PRESENT: alert, awake, oriented to person, oriented to place, oriented to time, oriented to situation Psychiatric exam: PRESENT: appropriate affect, normal mood Skin exam: PRESENT: dry, intact, warm Results Laboratory Results: 03/29/20 06:26 03/29/20 06:26 03/29/20 03/29/20 06:26 06:26 WBC 7.6 RBC 3.75 Hgb 11.2 L Hct 33.2 L MCV 89 MCH 30.0 MCHC 33.8 RDW 15.7 H Plt Count 170 Seg Neutrophils % 70.9 Sodium 136.6 L Potassium 3.0 L* Chloride 91 L Carbon Dioxide 38 H Anion Gap 8 BUN 60 H Creatinine 1.21 Est GFR ( Amer) 52 L Glucose 193 H Calcium 9.8 Magnesium 2.1 03/27/20 21:02 Troponin I 0.057 Impressions: Chest X-Ray 03/27/20 21:00 IMPRESSION: 1. No acute pulmonary findings. Head CT 03/27/20 21:04 IMPRESSION: 1. No acute intracranial abnormalities. Nonspecific white matter change most likely small vessel ischemic disease, age indeterminate. 2. CT is insensitive for early evaluation of acute stroke. If there is clinical concern for acute ischemia, an MRI may be considered. 3. Motion limited examination. Assessment and Plan - Diagnosis (1) UTI (urinary tract infection) due to urinary indwelling Barton catheter Qualifiers: Indwelling urinary catheter type: indwelling urethral catheter Encounter type: initial encounter Qualified Code(s): T83.511A - Infection and inflammatory reaction due to indwelling urethral catheter, initial encounter; N39.0 - Urinary tract infection, site not specified Is this a current diagnosis for this admission?: Yes Plan: UA infected, urine culture growing likely Pseudomonas and Klebsiella, finalized results still pending Started on cefepime on admission, previous urine cultures reveal consistent resistance to this drug Antibiotics changed to Zosyn (2) Acute encephalopathy Is this a current diagnosis for this admission?: Yes Plan: Acute metabolic cephalopathy Multifactorial: UTI, polypharmacy Treat underlying causes as above Consider reducing sedating medication dose and frequency Resolved (3) Medication side effects Is this a current diagnosis for this admission?: Yes (4) Acute and chronic respiratory failure with hypoxia Is this a current diagnosis for this admission?: Yes (5) Acute kidney injury superimposed on chronic kidney disease Is this a current diagnosis for this admission?: Yes Plan: Baseline creatinine approximately 1.5-1.8 per records Trend BMP Suspect due to UTI IV fluids given on admission, stopped due to very high risk of volume overload due to CHF on multiple diuretics at home Resolved (6) Adrenal insufficiency Is this a current diagnosis for this admission?: Yes (7) Atrial fibrillation Qualifiers: Atrial fibrillation type: chronic Is this a current diagnosis for this admission?: Yes (8) COPD with acute bronchitis Is this a current diagnosis for this admission?: Yes (9) Chronic diastolic CHF (congestive heart failure) Is this a current diagnosis for this admission?: Yes (10) Diabetes mellitus type 2 in obese Is this a current diagnosis for this admission?: Yes (11) ESBL (extended spectrum beta-lactamase) producing bacteria infection Is this a current diagnosis for this admission?: Yes (12) HTN (hypertension) Qualifiers: Hypertension type: essential hypertension Qualified Code(s): I10 - Essential (primary) hypertension Is this a current diagnosis for this admission?: Yes (13) MRSA (methicillin resistant Staphylococcus aureus) colonization Is this a current diagnosis for this admission?: Yes (14) Morbid obesity Is this a current diagnosis for this admission?: Yes (15) Chronic pain syndrome Is this a current diagnosis for this admission?: Yes (16) History of pulmonary embolism Is this a current diagnosis for this admission?: Yes (17) Obstructive sleep apnea Is this a current diagnosis for this admission?: Yes - Plan Summary Summary: Patient will be admitted to the medical floor where she will receive routine supportive and symptomatic cares. She will be treated with IV cefepime 2 g every 12 hours initially pending blood and urine culture results. Serial lactic acid levels will be performed. Patient will be placed on a diabetic and cardiac restricted diet. AC and at bedtime Accu-Cheks will be obtained with sliding scale insulin for hyperglycemia and a hypoglycemic protocol in place. CBCs, metabolic profiles and additional laboratory and/or radiographic evaluations will be obtained as appropriate. Patient will receive Ativan 1 mg IV every 4 hours as needed for anxiety or restlessness. Patient received morphine sulfate 2 to 4 mg IV every 2 hours as needed for pain. Patient's usual care home medications will be restarted, as appropriate, when her medication list has been verified and reconciled. - Time Time Spent with patient: 25-34 minutes Medications reviewed and adjusted accordingly: Yes Anticipated Discharge Disposition: [facility] Facility Anticipated Discharge Timeframe: within 72 hours - Inpatient Certification Based on my medical assessment, after consideration of the patient's comorbidities, presenting symptoms, or acuity I expect that the services needed warrant INPATIENT care.: Yes I certify that my determination is in accordance with my understanding of Medicare's requirements for reasonable and necessary INPATIENT services [42 CFR 412.3e].: Yes Medical Necessity: Significant Comorbidiites Make Outpatient Treatment Too Risky, Need Close Monitoring Due to Risk of Patient Decompensation, Need for IV Antibiotics, Risk of Complication if Not Cared For in Hospital, Risk of Diagnosis Which Will Require Inpatient Eval/Care/Monitoring
[2020-03-29] MEDS: ACETAMINOPHEN 325 MG TABLET PO PRN (19:34)
[2020-03-29] MEDS: MELATONIN 5 MG TABLET PO SCH (22:28)
[2020-03-29] MEDS: INSULIN GLARGINE,HUM.REC.ANLOG 1,000 UNIT/10 ML VIAL SUBCUT SCH (22:30)
[2020-03-30] MEDS: PIPERACILLIN SODIUM/TAZOBACTAM 2.25 GM in NORMAL SALINE 50 ML IV SCH ×5 (00:18→23:27)
[2020-03-30] MEDS: POLYVINYL ALCOHOL 1.4% OPH SOLN 15 ML OU SCH ×5 (00:19→23:27)
[2020-03-30] MEDS: NYSTATIN 500000 UNIT/5 ML UDCUP PO SCH ×5 (00:19→23:27)
[2020-03-30] MEDS: SIMETHICONE 80 MG TAB.CHEW PO SCH ×5 (00:19→23:27)
[2020-03-30] MEDS: IPRATROPIUM/ALBUTEROL 0.5-2.5 MG/3 ML AMPUL NEB SCH ×4 (02:18→20:55)
[2020-03-30] MEDS: ACETYLCYSTEINE 10% NEB 400 MG/4 ML VIAL NEB SCH ×4 (02:18→20:55)
[2020-03-30] MEDS: DILTIAZEM HCL 30 MG TABLET PO SCH ×3 (05:23→22:18)
[2020-03-30] MEDS: BACLOFEN 10 MG TABLET PO SCH ×3 (05:24→22:19)
[2020-03-30] MEDS: PANTOPRAZOLE SODIUM 40 MG TABLET.DR PO SCH (05:24)
[2020-03-30] MEDS: FUROSEMIDE 40 MG TABLET PO SCH ×3 (05:24→22:17)
[2020-03-30] MEDS: PREGABALIN 50 MG CAPSULE PO SCH ×3 (05:24→22:18)
[2020-03-30] MEDS: HEPARIN SOD (PORCINE) 5,000 UNIT/ML 1 ML VIAL SUBCUT SCH ×3 (05:25→22:19)
[2020-03-30 07:02] LABS: ABSOLUTE EOSINOPHILS # (AUTO) 0.1 10^3/uL (0.0-0.6); ABSOLUTE LYMPHOCYTES (AUTO) 1.3 10^3/uL (0.5-4.7); ABSOLUTE MONOCYTES (AUTO) 0.6 10^3/uL (0.1-1.4); ABSOLUTE NEUT (AUTO) 5.4 10^3/uL (1.7-8.2); BASOPHILS % (AUTO) 0.4 % (0-2); EOSINOPHILS % (AUTO) 1.2 % (0-6); HEMATOCRIT 31.3 % (36.0-47.0); HEMOGLOBIN 10.6 g/dL (12.0-15.5); LYMPHOCYTES % (AUTO) 17.7 % (13-45); MEAN CORPUSCULAR HEMOGLOBIN 30.2 pg (27.0-33.4); MEAN CORPUSCULAR VOLUME 89 fl (80-97); MONOCYTES % (AUTO) 7.8 % (3-13); PLATELET COUNT 182 10^3/uL (150-450); RED BLOOD COUNT 3.52 10^6/uL (3.72-5.28); RED CELL DISTRIBUTION WIDTH 15.9 % (11.5-14.0); SEGMENTED NEUTROPHILS % (AUTO) 72.9 % (42-78); TOTAL CELLS COUNTED % (AUTO) 100 %; WHITE BLOOD COUNT 7.4 10^3/uL (4.0-10.5)
[2020-03-30 07:12] LABS: ANION GAP 6 (5-19); BLOOD UREA NITROGEN 52 mg/dL (7-20); CALCIUM 9.8 mg/dL (8.4-10.2); CARBON DIOXIDE 39 mmol/L (22-30); CHLORIDE 95 mmol/L (98-107); GLUCOSE 143 mg/dL (75-110); POTASSIUM 3.7 mmol/L (3.6-5.0)
[2020-03-30] MEDS: BUDESONIDE NEB 0.25 MG/2 ML AMPUL NEB SCH ×2 (07:46→20:55)
[2020-03-30 08:00] LABS: METHANOL <.010 % (0.000-0.01)
[2020-03-30] MEDS: INSULIN LISPRO 100 UNIT/ML 3 ML VIAL SUBCUT SCH ×4 (08:04→22:20)
[2020-03-30] MEDS: RANOLAZINE 500 MG TAB.SR.12H PO SCH ×2 (09:01→22:17)
[2020-03-30] MEDS: POLYETHYLENE GLYCOL 3350 POWDER 17 GM/1 PACKET PO SCH ×3 (09:01→18:28)
[2020-03-30] MEDS: POTASSIUM CHLORIDE 20 MEQ PACKET PO SCH ×2 (09:01→18:24)
[2020-03-30] MEDS: DOCUSATE SODIUM 100 MG CAPSULE PO SCH ×2 (09:02→18:24)
[2020-03-30] MEDS: METOLAZONE 5 MG TABLET PO SCH (09:02)
[2020-03-30] MEDS: DULOXETINE HCL 30 MG CAPSULE.DR PO SCH (09:02)
[2020-03-30] MEDS: PREDNISONE 20 MG TABLET PO SCH (09:02)
[2020-03-30] MEDS: GUAIFENESIN 600 MG TABLET.SA PO SCH ×2 (09:02→22:17)
[2020-03-30] MEDS: LORATADINE 10 MG TABLET PO SCH (09:02)
[2020-03-30] MEDS: METOPROLOL TARTRATE 25 MG TABLET PO SCH ×2 (09:03→22:18)
[2020-03-30] MEDS: BUSPIRONE HCL 10 MG TABLET PO SCH ×2 (09:03→22:17)
[2020-03-30] MEDS: MAGNESIUM OXIDE 400 MG TABLET PO SCH (09:03)
[2020-03-30] MEDS: MULTIVITAMIN TABLET PO SCH (09:04)
[2020-03-30] MEDS: ALLOPURINOL 100 MG TABLET PO SCH (09:04)
[2020-03-30] MEDS: FLUTICASONE NASAL SPRAY 50 MCG/SPRY 120 SPRAY/16 GM NASL SCH ×2 (09:06→22:20)
[2020-03-30] MEDS: FLUTICASONE/VILANTEROL 200-25 MCG/DOSE IH SCH (09:06)
[2020-03-30] MEDS: UMECLIDINIUM BROMIDE 62.5 MCG/DOSE IH SCH (09:06)
[2020-03-30] MEDS: OLOPATADINE HCL 0.1% OPH SOLN 5 ML OU SCH (09:07)
[2020-03-30] MEDS: POLYMYXIN B SULFATE/TMP OPH SOLN 10 ML OS SCH ×4 (09:08→22:21)
[2020-03-30] MEDS: SENNOSIDES/DOCUSATE 8.6-50 MG 1 EACH TABLET PO SCH (09:10)
[2020-03-30] MEDS: ROFLUMILAST 500 MCG TABLET PO SCH (10:57)
--- NOTE | 2020-03-30 11:21 | PDOC PROGRESS REPORT ---
Subjective Subjective:: Per Admitting Physician: "PORSHA WALDRON is a 74 year old female who presents the emergency room via EMS with a 3-day history of altered mental status (disorientation). [facility] staff reports that the patient has been progressively deteriorating in her mental status becoming increasingly disoriented and somnolent. Patient's altered mental status has been associated with generalized weakness and accompanied by decreased oral intake. Patient symptoms became severe this evening. Patient has altered mental status and is unable to provide input into her medical history. In the emergency room the patient was found to be clinically dehydrated and somnolent with resolution of her somnolence obtained by removing her fentanyl patch and giving her Narcan. She became more alert but remains confused. She was noted to have pyuria in the emergency room and blood and urine cultures were obtained prior to initiation of antibiotic therapy. Patient was subsequently admitted to hospital for further evaluation treatment." 03/28/2020 Patient is much more alert and fully oriented today. She is on excessive number of sedating medications and is very likely these adversely affected her in the setting of acute UTI. She is extremely high risk for polypharmacy now in the future. I confirmed all of the doses of her narcotics and other sedating medications and she demanded that these be restarted. If she gets confused, we will need to dial back the doses and frequencies of these. She confirms she is still currently wearing a 25 mcg fentanyl patch. Creatinine lower. Chest x-ray and head CT without acute findings. UA showed obvious infection and urine culture is pending. Cardiac medications restarted. Other than severe generalized fatigue and weakness, cough of chronic bronchitis/COPD, and chronic shortness of breath, patient has no new complaints. 03/29/2020 Patient seems to be a little bit better today but states she is still in a lot of musculoskeletal pain which is chronic. I have continued her home medications and noted there are many of them. I encouraged the patient to ask her primary c are doctor about trying to taper some of these medications off. She is very high risk for polypharmacy. Potassium notably low today and this is being actively repleted. Blood cultures negative. Antibiotics continued for ESBL UTI. I called the microbiology lab and clarified the results of the urine culture which had not been put in. They stated patient has what is most likely going to grow out to be Pseudomonas and possibly Klebsiella but we should have finalized results over the next 2 days. Otherwise, patient has no new complaints. I have consulted physical therapy and Occupational Therapy. 03/30/2020 Patient doing overall well today. We are still waiting on her finalized urine culture results come back. I spoke with physical therapy and they visited the patient today. Yesterday patient had expressed interest in having physical therapy evaluate her however today she states that she has too much chronic joint pain to be able to successfully complete any meaningful rehab. Once we have her finalized urine culture results she can be discharged back to [facility] where she can continue her light duty upper extremity rehab. Creatinine is higher today but it is still approximately at her baseline which is around 1.4- 1.6 per records. Blood culture negative. She has no new complaints. Reason For Visit: UTI,AMS Physical Exam Vital Signs: Temp Pulse Resp BP Pulse Ox 98.1 F 70 16 113/57 L 100 03/30/20 08:40 03/30/20 08:00 03/30/20 08:00 03/30/20 08:00 03/30/20 08:00 Intake & Output 03/29/20 03/30/20 03/31/20 06:59 06:59 06:59 Intake Total 1280 1800 370 Output Total 3000 3300 Balance -1720 -1500 370 Weight 89.9 kg 89.9 kg Exam: General appearance: PRESENT: no acute distress, morbidly obese, states that she has too much chronic pain to make much progress with rehab Head exam: PRESENT: atraumatic, normocephalic Eye exam: PRESENT: conjunctiva pink. ABSENT: scleral icterus Mouth exam: PRESENT: moist Respiratory exam: PRESENT: rhonchi - Upper airway rhonchorous sounds. ABSENT: r ales, wheezes Cardiovascular exam: PRESENT: RRR. ABSENT: diastolic murmur, rubs, systolic murmur GI/Abdominal exam: PRESENT: normal bowel sounds, soft. ABSENT: distended, guarding, mass, organolmegaly, rebound, tenderness Extremities exam: ABSENT: pedal edema Neurological exam: PRESENT: alert, awake, oriented to person, oriented to place, oriented to time, oriented to situation Psychiatric exam: PRESENT: appropriate affect, normal mood Skin exam: PRESENT: dry, warm; RLE anterior owusu wound clean and healing Results Laboratory Results: 03/30/20 06:29 03/30/20 06:29 03/30/20 03/30/20 06:29 06:29 WBC 7.4 RBC 3.52 L Hgb 10.6 L Hct 31.3 L MCV 89 MCH 30.2 MCHC 34.0 RDW 15.9 H Plt Count 182 Seg Neutrophils % 72.9 Sodium 140.4 Potassium 3.7 Chloride 95 L Carbon Dioxide 39 H Anion Gap 6 BUN 52 H Creatinine 1.43 H Est GFR ( Amer) 43 L Glucose 143 H Calcium 9.8 Magnesium 2.0 03/27/20 21:02 Troponin I 0.057 Impressions: Chest X-Ray 03/27/20 21:00 IMPRESSION: 1. No acute pulmonary findings. Head CT 03/27/20 21:04 IMPRESSION: 1. No acute intracranial abnormalities. Nonspecific white matter change most likely small vessel ischemic disease, age indeterminate. 2. CT is insensitive for early evaluation of acute stroke. If there is clinical concern for acute ischemia, an MRI may be considered. 3. Motion limited examination. Assessment and Plan - Diagnosis (1) UTI (urinary tract infection) due to urinary indwelling Barton catheter Qualifiers: Indwelling urinary catheter type: indwelling urethral catheter Encounter type: initial encounter Qualified Code(s): T83.511A - Infection and inflammatory reaction due to indwelling urethral catheter, initial encounter; N39.0 - Urinary tract infection, site not specified Is this a current diagnosis for this admission?: Yes Plan: UA infected, urine culture growing likely Pseudomonas and Klebsiella, finalized results still pending Started on cefepime on admission, previous urine cultures reveal consistent resistance to this drug Antibiotics changed to Zosyn (2) Acute encephalopathy Is this a current diagnosis for this admission?: Yes Plan: Acute metabolic cephalopathy Multifactorial: UTI, polypharmacy Treat underlying causes as above Consider reducing sedating medication dose and frequency Resolved (3) Medication side effects Is this a current diagnosis for this admission?: Yes (4) Acute and chronic respiratory failure with hypoxia Is this a current diagnosis for this admission?: Yes (5) Acute kidney injury superimposed on chronic kidney disease Is this a current diagnosis for this admission?: Yes (6) Adrenal insufficiency Is this a current diagnosis for this admission?: Yes (7) Atrial fibrillation Qualifiers: Atrial fibrillation type: chronic Is this a current diagnosis for this admission?: Yes (8) COPD with acute bronchitis Is this a current diagnosis for this admission?: Yes (9) Chronic diastolic CHF (congestive heart failure) Is this a current diagnosis for this admission?: Yes (10) Diabetes mellitus type 2 in obese Is this a current diagnosis for this admission?: Yes (11) ESBL (extended spectrum beta-lactamase) producing bacteria infection Is this a current diagnosis for this admission?: Yes (12) HTN (hypertension) Qualifiers: Hypertension type: essential hypertension Qualified Code(s): I10 - Essential (primary) hypertension Is this a current diagnosis for this admission?: Yes (13) MRSA (methicillin resistant Staphylococcus aureus) colonization Is this a current diagnosis for this admission?: Yes (14) Morbid obesity Is this a current diagnosis for this admission?: Yes (15) Chronic pain syndrome Is this a current diagnosis for this admission?: Yes (16) History of pulmonary embolism Is this a current diagnosis for this admission?: Yes (17) Obstructive sleep apnea Is this a current diagnosis for this admission?: Yes - Plan Summary Summary: Patient will be admitted to the medical floor where she will receive routine supportive and symptomatic cares. She will be treated with IV cefepime 2 g every 12 hours initially pending blood and urine culture results. Serial lactic acid levels will be performed. Patient will be placed on a diabetic and cardiac restricted diet. AC and at bedtime Accu-Cheks will be obtained with sliding scale insulin for hyperglycemia and a hypoglycemic protocol in place. CBCs, metabolic profiles and additional laboratory and/or radiographic evaluations will be obtained as appropriate. Patient will receive Ativan 1 mg IV every 4 hours as needed for anxiety or restlessness. Patient received morphine sulfate 2 to 4 mg IV every 2 hours as needed for pain. Patient's usual longterm medications will be restarted, as appropriate, when her medication list has been verified and reconciled. - Time Time Spent with patient: 25-34 minutes Medications reviewed and adjusted accordingly: Yes Anticipated Discharge Disposition: [facility] Anticipated Discharge Timeframe: within 48 hours - Inpatient Certification Based on my medical assessment, after consideration of the patient's comorbidities, presenting symptoms, or acuity I expect that the services needed warrant INPATIENT care.: Yes I certify that my determination is in accordance with my understanding of [facility]'s requirements for reasonable and necessary INPATIENT services [42 CFR 412.3e].: Yes Medical Necessity: Significant Comorbidiites Make Outpatient Treatment Too Risky, Need Close Monitoring Due to Risk of Patient Decompensation, Need for IV Antibiotics, Risk of Complication if Not Cared For in Hospital, Risk of Diagnosis Which Will Require Inpatient Eval/Care/Monitoring
[2020-03-30] MEDS: OXYCODONE HCL SR 10 MG TABLET PO PRN (12:48)
[2020-03-30] MEDS: MELATONIN 5 MG TABLET PO SCH (22:18)
[2020-03-30] MEDS: INSULIN GLARGINE,HUM.REC.ANLOG 1,000 UNIT/10 ML VIAL SUBCUT SCH (22:20)
[2020-03-31] MEDS: ACETYLCYSTEINE 10% NEB 400 MG/4 ML VIAL NEB SCH ×4 (02:42→20:02)
[2020-03-31] MEDS: IPRATROPIUM/ALBUTEROL 0.5-2.5 MG/3 ML AMPUL NEB SCH ×4 (02:42→20:02)
[2020-03-31] MEDS: NYSTATIN 500000 UNIT/5 ML UDCUP PO SCH ×4 (05:05→23:21)
[2020-03-31] MEDS: OXYCODONE HCL SR 10 MG TABLET PO PRN ×2 (05:06→14:21)
[2020-03-31] MEDS: FUROSEMIDE 40 MG TABLET PO SCH ×3 (05:06→22:08)
[2020-03-31] MEDS: SIMETHICONE 80 MG TAB.CHEW PO SCH ×4 (05:07→23:22)
[2020-03-31] MEDS: PREGABALIN 50 MG CAPSULE PO SCH ×3 (05:07→22:07)
[2020-03-31] MEDS: DILTIAZEM HCL 30 MG TABLET PO SCH ×3 (05:07→22:07)
[2020-03-31] MEDS: BACLOFEN 10 MG TABLET PO SCH ×3 (05:07→22:08)
[2020-03-31] MEDS: PANTOPRAZOLE SODIUM 40 MG TABLET.DR PO SCH (05:07)
[2020-03-31] MEDS: HEPARIN SOD (PORCINE) 5,000 UNIT/ML 1 ML VIAL SUBCUT SCH ×3 (05:07→23:20)
[2020-03-31] MEDS: POLYVINYL ALCOHOL 1.4% OPH SOLN 15 ML OU SCH ×4 (05:08→23:21)
[2020-03-31] MEDS: PIPERACILLIN SODIUM/TAZOBACTAM 2.25 GM in NORMAL SALINE 50 ML IV SCH ×4 (05:08→23:22)
[2020-03-31] MEDS: INSULIN LISPRO 100 UNIT/ML 3 ML VIAL SUBCUT SCH ×4 (08:45→22:08)
[2020-03-31] MEDS: BUDESONIDE NEB 0.25 MG/2 ML AMPUL NEB SCH ×2 (08:57→20:02)
[2020-03-31] MEDS ORDERED: FENTANYL 25 MCG/HR PATCH.TD72 TD SCH (10:00)
[2020-03-31] MEDS: DOCUSATE SODIUM 100 MG CAPSULE PO SCH ×2 (10:51→18:38)
[2020-03-31] MEDS: ALLOPURINOL 100 MG TABLET PO SCH (10:51)
[2020-03-31] MEDS: ROFLUMILAST 500 MCG TABLET PO SCH (10:51)
[2020-03-31] MEDS: LORATADINE 10 MG TABLET PO SCH (10:51)
[2020-03-31] MEDS: RANOLAZINE 500 MG TAB.SR.12H PO SCH ×2 (10:51→22:07)
[2020-03-31] MEDS: MULTIVITAMIN TABLET PO SCH (10:51)
[2020-03-31] MEDS: MAGNESIUM OXIDE 400 MG TABLET PO SCH (10:51)
[2020-03-31] MEDS: DULOXETINE HCL 30 MG CAPSULE.DR PO SCH (10:51)
[2020-03-31] MEDS: BUSPIRONE HCL 10 MG TABLET PO SCH ×2 (10:51→22:08)
[2020-03-31] MEDS: METOLAZONE 5 MG TABLET PO SCH (10:51)
[2020-03-31] MEDS: SENNOSIDES/DOCUSATE 8.6-50 MG 1 EACH TABLET PO SCH (10:51)
[2020-03-31] MEDS: PREDNISONE 20 MG TABLET PO SCH (10:51)
[2020-03-31] MEDS: GUAIFENESIN 600 MG TABLET.SA PO SCH ×2 (10:51→22:07)
[2020-03-31] MEDS: METOPROLOL TARTRATE 25 MG TABLET PO SCH ×2 (10:51→22:07)
[2020-03-31] MEDS: UMECLIDINIUM BROMIDE 62.5 MCG/DOSE IH SCH (10:52)
[2020-03-31] MEDS: FLUTICASONE/VILANTEROL 200-25 MCG/DOSE IH SCH (10:52)
[2020-03-31] MEDS: FLUTICASONE NASAL SPRAY 50 MCG/SPRY 120 SPRAY/16 GM NASL SCH ×2 (10:52→22:09)
[2020-03-31] MEDS: POTASSIUM CHLORIDE 20 MEQ PACKET PO SCH ×2 (10:52→18:38)
[2020-03-31] MEDS: POLYETHYLENE GLYCOL 3350 POWDER 17 GM/1 PACKET PO SCH (10:52)
[2020-03-31] MEDS: OLOPATADINE HCL 0.1% OPH SOLN 5 ML OU SCH (10:53)
[2020-03-31] MEDS: POLYMYXIN B SULFATE/TMP OPH SOLN 10 ML OS SCH ×4 (10:53→23:20)
--- NOTE | 2020-03-31 13:23 | PDOC PROGRESS REPORT ---
Subjective Subjective:: Per Admitting Physician: "PORSHA WALDRON is a 74 year old female who presents the emergency room via EMS with a 3-day history of altered mental status (disorientation). skilled nursing staff reports that the patient has been progressively deteriorating in her mental status becoming increasingly disoriented and somnolent. Patient's altered mental status has been associated with generalized weakness and accompanied by decreased oral intake. Patient symptoms became severe this evening. Patient has altered mental status and is unable to provide input into her medical history. In the emergency room the patient was found to be clinically dehydrated and somnolent with resolution of her somnolence obtained by removing her fentanyl patch and giving her Narcan. She became more alert but remains confused. She was noted to have pyuria in the emergency room and blood and urine cultures were obtained prior to initiation of antibiotic therapy. Patient was subsequently admitted to hospital for further evaluation treatment." 03/28/2020 Patient is much more alert and fully oriented today. She is on excessive number of sedating medications and is very likely these adversely affected her in the setting of acute UTI. She is extremely high risk for polypharmacy now in the future. I confirmed all of the doses of her narcotics and other sedating medications and she demanded that these be restarted. If she gets confused, we will need to dial back the doses and frequencies of these. She confirms she is still currently wearing a 25 mcg fentanyl patch. Creatinine lower. Chest x-ray and head CT without acute findings. UA showed obvious infection and urine culture is pending. Cardiac medications restarted. Other than severe generalized fatigue and weakness, cough of chronic bronchitis/COPD, and chronic shortness of breath, patient has no new complaints. 03/29/2020 Patient seems to be a little bit better today but states she is still in a lot of musculoskeletal pain which is chronic. I have continued her home medications and noted there are many of them. I encouraged the patient to ask her primary c are doctor about trying to taper some of these medications off. She is very high risk for polypharmacy. Potassium notably low today and this is being actively repleted. Blood cultures negative. Antibiotics continued for ESBL UTI. I called the microbiology lab and clarified the results of the urine culture which had not been put in. They stated patient has what is most likely going to grow out to be Pseudomonas and possibly Klebsiella but we should have finalized results over the next 2 days. Otherwise, patient has no new complaints. I have consulted physical therapy and Occupational Therapy. 03/30/2020 Patient doing overall well today. We are still waiting on her finalized urine culture results come back. I spoke with physical therapy and they visited the patient today. Yesterday patient had expressed interest in having physical therapy evaluate her however today she states that she has too much chronic joint pain to be able to successfully complete any meaningful rehab. Once we have her finalized urine culture results she can be discharged back to [facility] where she can continue her light duty upper extremity rehab. Creatinine is higher today but it is still approximately at her baseline which is around 1.4- 1.6 per records. Blood culture negative. She has no new complaints. 03/31/2020 Urine culture is growing ESBL, CRE, Pseudomonas. Infectious disease consult kira garcia. Suspect patient will need a PICC line and IV antibiotics when she returns to nursing facility. Patient states she is getting a bit of her strength back and she would like to continue her physical therapy when she returns to her nursing facility. Blood sugar is a bit higher but stable. Chiara stewart has no new complaints today. Reason For Visit: UTI,AMS Physical Exam Vital Signs: Temp Pulse Resp BP Pulse Ox 97.6 F 98 20 129/98 H 100 03/31/20 11:21 03/31/20 11:21 03/31/20 11:21 03/31/20 11:21 03/31/20 12:52 Intake & Output 03/30/20 03/31/20 04/01/20 06:59 06:59 06:59 Intake Total 1800 1560 Output Total 3300 2500 Balance -1500 -940 Weight 89.9 kg 89 kg Exam: General appearance: PRESENT: no acute distress, morbidly obese, states she has a bit more energy today Head exam: PRESENT: atraumatic, normocephalic Eye exam: PRESENT: conjunctiva pink. ABSENT: scleral icterus Mouth exam: PRESENT: moist Respiratory exam: PRESENT: rhonchi - Upper airway rhonchorous sounds. ABSENT: rales, wheezes Cardiovascular exam: PRESENT: RRR. ABSENT: diastolic murmur, rubs, systolic murmur GI/Abdominal exam: PRESENT: normal bowel sounds, soft. ABSENT: distended, guarding, mass, organolmegaly, rebound, tenderness Extremities exam: ABSENT: pedal edema Neurological exam: PRESENT: alert, awake, oriented to person, oriented to place, oriented to time, oriented to situation Psychiatric exam: PRESENT: appropriate affect, normal mood Skin exam: PRESENT: dry, warm; RLE anterior owusu wound clean and healing Results Laboratory Results: 03/30/20 06:29 03/30/20 06:29 03/27/20 21:02 Troponin I 0.057 Impressions: Chest X-Ray 03/27/20 21:00 IMPRESSION: 1. No acute pulmonary findings. Head CT 03/27/20 21:04 IMPRESSION: 1. No acute intracranial abnormalities. Nonspecific white matter change most likely small vessel ischemic disease, age indeterminate. 2. CT is insensitive for early evaluation of acute stroke. If there is clinical concern for acute ischemia, an MRI may be considered. 3. Motion limited examination. Assessment and Plan - Diagnosis (1) UTI (urinary tract infection) due to urinary indwelling Barton catheter Qualifiers: Indwelling urinary catheter type: indwelling urethral catheter Encounter type: initial encounter Qualified Code(s): T83.511A - Infection and inflammatory reaction due to indwelling urethral catheter, initial encounter; N39.0 - Urinary tract infection, site not specified Is this a current diagnosis for this admission?: Yes Plan: UA infected, urine culture growing likely Pseudomonas and Klebsiella, finalized results still pending Started on cefepime on admission, previous urine cultures reveal consistent resistance to this drug Antibiotics changed to Zosyn 03/31/2020 Urine culture growing ESBL E. coli, CRE, Pseudomonas per microbiology staff however finalized results are not available yet Possible patient will need a PICC line and IV antibiotics at discharge Infectious disease consult pending (2) Acute encephalopathy Is this a current diagnosis for this admission?: Yes Plan: Acute metabolic cephalopathy Multifactorial: UTI, polypharmacy Treat underlying causes as above Consider reducing sedating medication dose and frequency Resolved (3) Medication side effects Is this a current diagnosis for this admission?: Yes (4) Acute and chronic respiratory failure with hypoxia Is this a current diagnosis for this admission?: Yes (5) Acute kidney injury superimposed on chronic kidney disease Is this a current diagnosis for this admission?: Yes Plan: Baseline creatinine approximately 1.5-1.8 per records Trend BMP Suspect due to UTI IV fluids given on admission, stopped due to very high risk of volume overload due to CHF on multiple diuretics at home Resolved (6) Adrenal insufficiency Is this a current diagnosis for this admission?: Yes (7) Atrial fibrillation Qualifiers: Atrial fibrillation type: chronic Is this a current diagnosis for this admission?: Yes (8) COPD with acute bronchitis Is this a current diagnosis for this admission?: Yes (9) Chronic diastolic CHF (congestive heart failure) Is this a current diagnosis for this admission?: Yes (10) Diabetes mellitus type 2 in obese Is this a current diagnosis for this admission?: Yes (11) ESBL (extended spectrum beta-lactamase) producing bacteria infection Is this a current diagnosis for this admission?: Yes Plan: Seen in microbiology history, cultures growing ESBL E. coli, E faecalis, ps eudomonas aeruginosa (12) HTN (hypertension) Qualifiers: Hypertension type: essential hypertension Qualified Code(s): I10 - Essen tial (primary) hypertension Is this a current diagnosis for this admission?: Yes (13) MRSA (methicillin resistant Staphylococcus aureus) colonization Is this a current diagnosis for this admission?: Yes (14) Morbid obesity Is this a current diagnosis for this admission?: Yes (15) Chronic pain syndrome Is this a current diagnosis for this admission?: Yes (16) History of pulmonary embolism Is this a current diagnosis for this admission?: Yes (17) Obstructive sleep apnea Is this a current diagnosis for this admission?: Yes - Plan Summary Summary: Patient will be admitted to the medical floor where she will receive routine supportive and symptomatic cares. She will be treated with IV cefepime 2 g every 12 hours initially pending blood and urine culture results. Serial lactic acid levels will be performed. Patient will be placed on a diabetic and cardiac restricted diet. AC and at bedtime Accu-Cheks will be obtained with sliding scale insulin for hyperglycemia and a hypoglycemic protocol in place. CBCs, metabolic profiles and additional laboratory and/or radiographic evaluations will be obtained as appropriate. Patient will receive Ativan 1 mg IV every 4 hours as needed for anxiety or restlessness. Patient received morphine sulfate 2 to 4 mg IV every 2 hours as needed for pain. Patient's usual care home medications will be restarted, as appropriate, when her medication list has been verified and reconciled. - Time Time Spent with patient: 25-34 minutes Medications reviewed and adjusted accordingly: Yes Anticipated Discharge Disposition: [facility] Anticipated Discharge Timeframe: within 24 hours - Inpatient Certification Based on my medical assessment, after consideration of the patient's comorbidities, presenting symptoms, or acuity I expect that the services needed warrant INPATIENT care.: Yes I certify that my determination is in accordance with my understanding of Medicare's requirements for reasonable and necessary INPATIENT services [42 CFR 412.3e].: Yes Medical Necessity: Significant Comorbidiites Make Outpatient Treatment Too Risky, Need Close Monitoring Due to Risk of Patient Decompensation, Need for IV Antibiotics, Risk of Complication if Not Cared For in Hospital, Risk of Diagnosis Which Will Require Inpatient Eval/Care/Monitoring
[2020-03-31] MEDS ORDERED: BISACODYL 10 MG SUPP.RECT PR ONE (15:00)
--- NOTE | 2020-03-31 19:06 | Progress Note ---
Provider Note Provider Note: [facility] ID Telephone Advice Consultation Chart reviewed, patient not examined. This is a 74-year-old woman with multiple comorbid conditions including atrial fibrillation, depression, CHF, GERD, dementia, gout, arthritis, DM2, who was admitted from SNF due to altered mental status. Due to her musculoskeletal pain she is on multiple pain medications and narcotics. On admission, she was dehydrated, she had minimal leukocytosis, JASPREET, pyuria. Barton catheter was exchanged prior to do cultures. Blood cultures on were negative. Urine cultures the same day grew PSeudomonas and another GNR 70,000 CFU. Patient was started on cefepime then transition to zosyn. She received narcan and some of her pain medications were on hold obtaining an improvement in her mental status. Her WBC is down to normal and creatinine close to baseline. ID consulted for recommendations. Allergies: Sulfa (Sulfonamide Antibiotics) Allergy (Intermediate, Verified 03/27/20 21:15) latex Allergy (Unknown, Verified 03/27/20 21:15) adhesive tape Allergy (Verified 03/27/20 21:15) atorvastatin calcium [From Lipitor] Allergy (Verified 03/27/20 21:15) celecoxib [From Celebrex] Allergy (Verified 03/27/20 21:15) Medications: Acetylcysteine [Mucomist 10% Neb 400 mg/4 ml Vial] 1 appful IH Q6 03/27/20 Allopurinol [Zyloprim 100 mg Tablet] 200 mg PO DAILY 03/27/20 Azithromycin 250 mg PO DAILY 03/27/20 Baclofen [Baclofen 10 mg Tablet] 10 mg PO TID 03/27/20 Budesonide [Pulmicort Neb 0.25 mg/2 ml Ampule] 0.25 mg NEB BID 03/27/20 Buspirone HCl 1 tab PO Q12H 03/27/20 Diltiazem HCl [Cardizem 30 mg Tablet] 1 tab PO TID 03/27/20 Docusate Sodium [Colace 100 mg Capsule] 100 mg PO BID 03/27/20 Duloxetine HCl [Cymbalta] 30 mg PO DAILY 03/27/20 Eyelid Cleanser Comb No.7 [Ocusoft Lid Scrub] 1 each TP BID 03/27/20 Fentanyl [Duragesic 75 Mcg/Hr Transdermal Patch] 1 each TD Q3D 03/27/20 Fexofenadine HCl [Shaniqua Allergy] 60 mg PO DAILY 03/27/20 Fluticasone Propionate [Flonase Nasal [place] 50 Mcg/[place] 16 gm] 2 spray NASL Q12 03/27/20 Fluticasone/Salmeterol [Advair 500-50 Diskus 14 Dose/Diskus] 1 inh IH Q12H 03/27/20 Furosemide [Lasix 80 mg Tablet] 80 mg PO QAM 03/27/20 Guaifenesin [Mucus ER] 600 mg PO Q12H 03/27/20 Insulin Aspart [Novolog Insulin 100 Unit/1 ml 10 ml] 0 unit SUBCUT .SLD SCALE 03/27/20 Insulin Detemir [Levemir Insulin 100 units/mL Insulin Pen] 32 unit SUBCUT QHS 03/27/20 Ipratropium/Albuterol Sulfate [Duoneb 3 ml Ampul] 3 ml NEB Q4H 03/27/20 Lidocaine [Lidocaine Pain Relief] 1 each TP Q12H 03/27/20 Linaclotide [Linzess 145 Mcg Capsule] 145 mcg PO DAILY 03/27/20 Magnesium Oxide [Magnesium] 400 mg PO DAILY 03/27/20 Melatonin 10 mg PO QHS 03/27/20 Metolazone [Zaroxolyn 5 Mg Tablet] 5 mg PO DAILY 03/27/20 Metoprolol Tartrate [Lopressor 25 mg Tablet] 25 mg PO BID 03/27/20 Multivitamin [Multiple Vitamins] 1 tab PO DAILY 03/27/20 Nitroglycerin [Nitrostat 0.4 mg (1/150 Gr) Tabs 25/Bottle] 1 tab SL Q5MP PRN 03/27/20 Nystatin [Mycostatin 958152 Unit/mL Susp 60 mL] 10 ml PO Q6H 03/27/20 Olopatadine HCl [Pataday] 1 drop OU DAILY 03/27/20 Omeprazole Magnesium [Prilosec Otc] 40 mg PO DAILY 03/27/20 Polyethylene Glycol 3350 [Miralax Powder 17 gm/Packet] 1 packet PO DAILY 03/27/20 Polymyxin B Sulf/Trimethoprim [Polytrim Eye Drops] 1 drop OP QID 03/27/20 Polyvinyl Alcohol [Liquitears 1.4% Ophth Soln 15 ml] 1 drop OP Q6H 03/27/20 Potassium Chloride [Klor-Con] 20 meq PO BID 03/27/20 Prednisone [Deltasone 20 mg Tablet] 60 mg PO DAILY 03/27/20 Pregabalin [Lyrica 50 Mg Capsule] 50 mg PO QHS 03/27/20 Promethazine HCl [Phenergan 25 mg Tablet] 25 mg PO DAILYP PRN 03/27/20 Ranolazine [Ranexa 500 mg Tab.sr] 500 mg PO Q12 03/27/20 Roflumilast [Daliresp] 500 mcg PO DAILY 03/27/20 Sennosides/Docusate Sodium [Senna Plus 8.6-50 mg Tablet] 1 each PO DAILY 03/27/20 Simethicone [Gas Relief] 80 mg PO Q6H 03/27/20 Umeclidinium Marianna [Incruse Ellipta] 1 inh IH DAILY 03/27/20 Witch Alicia [Preparation H] 1 each TP QHS 03/27/20 Lidocaine [Aspercreme] 1 each TP Q12HP PRN 03/28/20 Vital Signs: Temp Pulse Resp BP Pulse Ox 98.6 F 71 18 146/58 H 100 03/31/20 15:33 03/31/20 15:33 03/31/20 15:33 03/31/20 15:33 03/31/20 15:52 Intake & Output 03/30/20 03/31/20 04/01/20 06:59 06:59 06:59 Intake Total 1800 1560 50 Output Total 3300 2500 Balance -1500 -940 50 Weight 89.9 kg 89 kg Weight/Height Weight 89 kg Height 5 ft 1 in Laboratories: 03/30/20 06:29 03/30/20 06:29 MCV 89 fl (80-97) 03/30/20 06:29 MCH 30.2 pg (27.0-33.4) 03/30/20 06:29 MCHC 34.0 g/dL (32.0-36.0) 03/30/20 06:29 RDW 15.9 % (11.5-14.0) H 03/30/20 06:29 Seg Neutrophils % 72.9 % (42-78) 03/30/20 06:29 Chloride 95 mmol/L (98-107) L 03/30/20 06:29 Carbon Dioxide 39 mmol/L (22-30) H 03/30/20 06:29 Anion Gap 6 (5-19) 03/30/20 06:29 Est GFR ( Amer) 43 (>60) L 03/30/20 06:29 Glucose 143 mg/dL (75-110) H 03/30/20 06:29 Serum Osmolality 310 mOsm/kg (275-301) H 03/28/20 04:20 Lactic Acid 0.8 mmol/L (0.7-2.1) 03/28/20 08:16 Calcium 9.8 mg/dL (8.4-10.2) 03/30/20 06:29 Magnesium 2.0 mg/dL (1.6-2.3) 03/30/20 06:29 Total Bilirubin 0.6 mg/dL (0.2-1.3) 03/27/20 21:02 AST 21 U/L (14-36) 03/27/20 21:02 Alkaline Phosphatase 84 U/L (38-126) 03/27/20 21:02 Total Protein 6.7 g/dL (6.3-8.2) 03/27/20 21:02 Albumin 3.7 g/dL (3.5-5.0) 03/27/20 21:02 Urine Color YELLOW 03/27/20 22:00 Urine Appearance CLOUDY 03/27/20 22:00 Urine pH 6.0 (5.0-9.0) 03/27/20 22:00 Ur Specific [place] 1.012 03/27/20 22:00 Urine Protein NEGATIVE mg/dL (NEGATIVE) 03/27/20 22:00 Urine Glucose (UA) NEGATIVE mg/dL (NEGATIVE) 03/27/20 22:00 Urine Ketones NEGATIVE mg/dL (NEGATIVE) 03/27/20 22:00 Urine Blood MODERATE (NEGATIVE) H 03/27/20 22:00 Urine Nitrite NEGATIVE (NEGATIVE) 03/27/20 22:00 Ur Leukocyte Esterase LARGE (NEGATIVE) H 03/27/20 22:00 Urine WBC (Auto) >182 /HPF 03/27/20 22:00 Urine RBC (Auto) 19 /HPF 03/27/20 22:00 03/27/20 21:02 Troponin I 0.057 Microbiology: Blood cultures: 03/27 NGTD Urine culture; 03/27 Pseudomonas aeruginosa (I aztreonam, R to fluoroquinolones) Radiology: Chest X-Ray 03/27/20 21:00 IMPRESSION: 1. No acute pulmonary findings. Head CT 03/27/20 21:04 IMPRESSION: 1. No acute intracranial abnormalities. Nonspecific white matter change most likely small vessel ischemic disease, age indeterminate. 2. CT is insensitive for early evaluation of acute stroke. If there is clinical concern for acute ischemia, an MRI may be considered. 3. Motion limited examination. Assessment and Recommendations: Patient evaluated due to encephalopathy due to possible UTI in the setting of Barton catheter. Patient has other reasons to have encephalopathy, more likely due to polypharmacy. Her mental status started to improve with hydration and after holding some of her medications. Her creatinine improved as well. She had an old Barton catheter, this increases the risk of CAUTI in the setting of history of ASB (asymptomatic bacteriuria). She is probably colonized with some of these organisms. She has been on zosyn, responding well. Pseudomonas was susceptible to it, will recommend 3 more days of antibiotics. She has a history of C diff infection, would limit the antibiotics for events of strong evidence of infectious process to justify antibiotics to prevent recurrences. Please call if questions. Sheryl Acevedo MD [facility] ID [phone]
[2020-03-31] MEDS: MELATONIN 5 MG TABLET PO SCH (22:07)
[2020-03-31] MEDS: INSULIN GLARGINE,HUM.REC.ANLOG 1,000 UNIT/10 ML VIAL SUBCUT SCH (22:09)
[2020-04-01] MEDS: IPRATROPIUM/ALBUTEROL 0.5-2.5 MG/3 ML AMPUL NEB SCH ×4 (02:25→19:58)
[2020-04-01] MEDS: ACETYLCYSTEINE 10% NEB 400 MG/4 ML VIAL NEB SCH ×4 (02:25→19:58)
[2020-04-01] MEDS: PREGABALIN 50 MG CAPSULE PO SCH ×3 (05:37→21:54)
[2020-04-01] MEDS: NYSTATIN 500000 UNIT/5 ML UDCUP PO SCH ×4 (05:37→23:00)
[2020-04-01] MEDS: SIMETHICONE 80 MG TAB.CHEW PO SCH ×4 (05:37→23:00)
[2020-04-01] MEDS: DILTIAZEM HCL 30 MG TABLET PO SCH ×3 (05:37→21:53)
[2020-04-01] MEDS: PANTOPRAZOLE SODIUM 40 MG TABLET.DR PO SCH (05:37)
[2020-04-01] MEDS: BACLOFEN 10 MG TABLET PO SCH ×3 (05:37→21:53)
[2020-04-01] MEDS: FUROSEMIDE 40 MG TABLET PO SCH ×3 (05:37→21:53)
[2020-04-01] MEDS: PIPERACILLIN SODIUM/TAZOBACTAM 2.25 GM in NORMAL SALINE 50 ML IV SCH ×4 (05:37→23:00)
[2020-04-01] MEDS: BENZONATATE 100 MG CAPSULE PO PRN ×3 (06:41→23:00)
[2020-04-01] MEDS: POLYVINYL ALCOHOL 1.4% OPH SOLN 15 ML OU SCH ×4 (06:42→23:28)
[2020-04-01] MEDS: HEPARIN SOD (PORCINE) 5,000 UNIT/ML 1 ML VIAL SUBCUT SCH ×3 (06:42→21:55)
[2020-04-01] MEDS: INSULIN LISPRO 100 UNIT/ML 3 ML VIAL SUBCUT SCH ×4 (07:45→21:51)
[2020-04-01] MEDS: POLYETHYLENE GLYCOL 3350 POWDER 17 GM/1 PACKET PO SCH (09:37)
[2020-04-01] MEDS: POTASSIUM CHLORIDE 20 MEQ PACKET PO SCH ×2 (09:37→18:38)
[2020-04-01] MEDS: ROFLUMILAST 500 MCG TABLET PO SCH (09:39)
[2020-04-01] MEDS: MULTIVITAMIN TABLET PO SCH (09:39)
[2020-04-01] MEDS: RANOLAZINE 500 MG TAB.SR.12H PO SCH ×2 (09:39→21:53)
[2020-04-01] MEDS: METOLAZONE 5 MG TABLET PO SCH (09:39)
[2020-04-01] MEDS: DULOXETINE HCL 30 MG CAPSULE.DR PO SCH (09:40)
[2020-04-01] MEDS: ALLOPURINOL 100 MG TABLET PO SCH (09:40)
[2020-04-01] MEDS: SENNOSIDES/DOCUSATE 8.6-50 MG 1 EACH TABLET PO SCH (09:40)
[2020-04-01] MEDS: LORATADINE 10 MG TABLET PO SCH (09:40)
[2020-04-01] MEDS: MAGNESIUM OXIDE 400 MG TABLET PO SCH (09:40)
[2020-04-01] MEDS: GUAIFENESIN 600 MG TABLET.SA PO SCH ×2 (09:40→21:55)
[2020-04-01] MEDS: PREDNISONE 20 MG TABLET PO SCH (09:41)
[2020-04-01] MEDS: METOPROLOL TARTRATE 25 MG TABLET PO SCH ×2 (09:41→21:55)
[2020-04-01] MEDS: BUSPIRONE HCL 10 MG TABLET PO SCH ×2 (09:42→21:53)
[2020-04-01] MEDS: DOCUSATE SODIUM 100 MG CAPSULE PO SCH ×2 (09:44→18:38)
[2020-04-01] MEDS: FENTANYL 25 MCG/HR PATCH.TD72 TD SCH (09:45)
[2020-04-01] MEDS: OXYCODONE HCL SR 10 MG TABLET PO PRN ×2 (09:47→23:00)
[2020-04-01] MEDS: FLUTICASONE NASAL SPRAY 50 MCG/SPRY 120 SPRAY/16 GM NASL SCH ×2 (09:50→21:55)
[2020-04-01] MEDS: UMECLIDINIUM BROMIDE 62.5 MCG/DOSE IH SCH (09:50)
[2020-04-01] MEDS: FLUTICASONE/VILANTEROL 200-25 MCG/DOSE IH SCH (09:50)
[2020-04-01] MEDS: POLYMYXIN B SULFATE/TMP OPH SOLN 10 ML OS SCH ×4 (09:51→21:56)
[2020-04-01] MEDS: OLOPATADINE HCL 0.1% OPH SOLN 5 ML OU SCH (09:54)
[2020-04-01] MEDS: BUDESONIDE NEB 0.25 MG/2 ML AMPUL NEB SCH ×2 (09:58→19:58)
--- NOTE | 2020-04-01 12:24 | PDOC PROGRESS REPORT ---
Subjective Subjective:: Per Admitting Physician: "PORSHA WALDRON is a 74 year old female who presents the emergency room via EMS with a 3-day history of altered mental status (disorientation). [facility] staff reports that the patient has been progressively deteriorating in her mental status becoming increasingly disoriented and somnolent. Patient's altered mental status has been associated with generalized weakness and accompanied by decreased oral intake. Patient symptoms became severe this evening. Patient has altered mental status and is unable to provide input into her medical history. In the emergency room the patient was found to be clinically dehydrated and somnolent with resolution of her somnolence obtained by removing her fentanyl patch and giving her Narcan. She became more alert but remains confused. She was noted to have pyuria in the emergency room and blood and urine cultures were obtained prior to initiation of antibiotic therapy. Patient was subsequently admitted to hospital for further evaluation treatment." 03/28/2020 Patient is much more alert and fully oriented today. She is on excessive number of sedating medications and is very likely these adversely affected her in the setting of acute UTI. She is extremely high risk for polypharmacy now in the future. I confirmed all of the doses of her narcotics and other sedating medications and she demanded that these be restarted. If she gets confused, we will need to dial back the doses and frequencies of these. She confirms she is still currently wearing a 25 mcg fentanyl patch. Creatinine lower. Chest x-ray and head CT without acute findings. UA showed obvious infection and urine culture is pending. Cardiac medications restarted. Other than severe generalized fatigue and weakness, cough of chronic bronchitis/COPD, and chronic shortness of breath, patient has no new complaints. 03/29/2020 Patient seems to be a little bit better today but states she is still in a lot of musculoskeletal pain which is chronic. I have continued her home medications and noted there are many of them. I encouraged the patient to ask her primary c are doctor about trying to taper some of these medications off. She is very high risk for polypharmacy. Potassium notably low today and this is being actively repleted. Blood cultures negative. Antibiotics continued for ESBL UTI. I called the microbiology lab and clarified the results of the urine culture which had not been put in. They stated patient has what is most likely going to grow out to be Pseudomonas and possibly Klebsiella but we should have finalized results over the next 2 days. Otherwise, patient has no new complaints. I have consulted physical therapy and Occupational Therapy. 03/30/2020 Patient doing overall well today. We are still waiting on her finalized urine culture results come back. I spoke with physical therapy and they visited the patient today. Yesterday patient had expressed interest in having physical therapy evaluate her however today she states that she has too much chronic joint pain to be able to successfully complete any meaningful rehab. Once we have her finalized urine culture results she can be discharged back to [facility] where she can continue her light duty upper extremity rehab. Creatinine is higher today but it is still approximately at her baseline which is around 1.4- 1.6 per records. Blood culture negative. She has no new complaints. 03/31/2020 Urine culture is growing ESBL, CRE, Pseudomonas. Infectious disease consult kira garcia. Suspect patient will need a PICC line and IV antibiotics when she returns to nursing facility. Patient states she is getting a bit of her strength back and she would like to continue her physical therapy when she returns to her nursing facility. Blood sugar is a bit higher but stable. Chiara stewart has no new complaints today. 04/01/2020 Discussed case with infectious disease yesterday and they recommended the patient remain in-house and get IV antibiotics through her peripheral IV rather than place a PICC line and send her back to her nursing facility as patient will be at risk for a line infection. Patient is to be doing fine today than her chronic musculoskeletal pain. Blood sugar is elevated and vital signs are stable. We will plan on discharging her back to [facility] nursing facility on Saturday when she has completed her additional 3 days of Zosyn. Otherwise she has no new complaints. Reason For Visit: UTI,AMS Physical Exam Vital Signs: Temp Pulse Resp BP Pulse Ox 98.6 F 63 20 155/87 H 100 04/01/20 11:41 04/01/20 11:41 04/01/20 11:41 04/01/20 11:41 04/01/20 11:41 Intake & Output 03/31/20 04/01/20 04/02/20 06:59 06:59 06:59 Intake Total 1560 1000 Output Total 2500 1700 Balance -940 -700 Weight 89 kg 91.2 kg Exam: General appearance: PRESENT: no acute distress, morbidly obese, states she is having more of her chronic musculoskeletal pain today Head exam: PRESENT: atraumatic, normocephalic Eye exam: PRESENT: conjunctiva pink. ABSENT: scleral icterus Mouth exam: PRESENT: moist Respiratory exam: PRESENT: rhonchi - Upper airway rhonchorous sounds. ABSENT: rales, wheezes Cardiovascular exam: PRESENT: RRR. ABSENT: diastolic murmur, rubs, systolic mu rmur GI/Abdominal exam: PRESENT: normal bowel sounds, soft. ABSENT: distended, guarding, mass, organolmegaly, rebound, tenderness Extremities exam: ABSENT: pedal edema Neurological exam: PRESENT: alert, awake, oriented to person, oriented to place, oriented to time, oriented to situation Psychiatric exam: PRESENT: appropriate affect, normal mood Skin exam: PRESENT: dry, warm; RLE anterior owusu wound clean and healing Results Laboratory Results: 03/30/20 06:29 03/30/20 06:29 03/27/20 21:02 Troponin I 0.057 Impressions: Chest X-Ray 03/27/20 21:00 IMPRESSION: 1. No acute pulmonary findings. Head CT 03/27/20 21:04 IMPRESSION: 1. No acute intracranial abnormalities. Nonspecific white matter change most likely small vessel ischemic disease, age indeterminate. 2. CT is insensitive for early evaluation of acute stroke. If there is clinical concern for acute ischemia, an MRI may be considered. 3. Motion limited examination. Assessment and Plan - Diagnosis (1) UTI (urinary tract infection) due to urinary indwelling Barton catheter Qualifiers: Indwelling urinary catheter type: indwelling urethral catheter Encounter type: initial encounter Qualified Code(s): T83.511A - Infection and inflammatory reaction due to indwelling urethral catheter, initial encounter; N39.0 - Urinary tract infection, site not specified Is this a current diagnosis for this admission?: Yes Plan: UA infected, urine culture growing likely Pseudomonas and Klebsiella, finalized results still pending Started on cefepime on admission, previous urine cultures reveal consistent r esistance to this drug Antibiotics changed to Zosyn 03/31/2020 Urine culture growing ESBL E. coli, CRE, Pseudomonas per microbiology staff however finalized results are not available yet Possible patient will need a PICC line and IV antibiotics at discharge Infectious disease consult pending 04/01/2020 -Continued on Zosyn for 3 more days. We will try to avoid placing a PICC line. Can be discharged back to SNF on Saturday. Per ID: "Patient evaluated due to encephalopathy due to possible UTI in the setting of Barton catheter. Patient has other reasons to have encephalopathy, more likely due to polypharmacy. Her mental status started to improve with hydration and after holding some of her medications. Her creatinine improved as well. She had an old Barton catheter, this increases the risk of CAUTI in the setting of history of ASB (asymptomatic bacteriuria). She is probably colonized with some of these organisms. She has been on zosyn, responding well. Pseudomonas was susceptible to it, will recommend 3 more days of antibiotics. She has a history of C diff infection, would limit the antibiotics for events of strong evidence of infectious process to justify antibiotics to prevent recurrences. Please call if questions." (2) Acute encephalopathy Is this a current diagnosis for this admission?: Yes Plan: Acute metabolic cephalopathy Multifactorial: UTI, polypharmacy Treat underlying causes as above Consider reducing sedating medication dose and frequency Resolved (3) Medication side effects Is this a current diagnosis for this admission?: Yes (4) Acute and chronic respiratory failure with hypoxia Is this a current diagnosis for this admission?: Yes (5) Acute kidney injury superimposed on chronic kidney disease Is this a current diagnosis for this admission?: Yes Plan: Baseline creatinine approximately 1.5-1.8 per records Trend BMP Suspect due to UTI IV fluids given on admission, stopped due to very high risk of volume overload due to CHF on multiple diuretics at home Resolved (6) Adrenal insufficiency Is this a current diagnosis for this admission?: Yes Plan: Iatrogenic adrenal insufficiency from long-term steroid use for COPD On 60 mg prednisone daily outpatient, continued here (7) Atrial fibrillation Qualifiers: Atrial fibrillation type: chronic Is this a current diagnosis for this admission?: Yes Plan: Rate controlled Paroxysmal A. fib Not on blood thinner outpatient (8) COPD with acute bronchitis Is this a current diagnosis for this admission?: Yes Plan: Chronic On long-term prednisone, reportedly unable to be tapered very much per patient as she has recurrence of severe respiratory symptoms Continue home inhalers/nebs (9) Chronic diastolic CHF (congestive heart failure) Is this a current diagnosis for this admission?: Yes (10) Diabetes mellitus type 2 in obese Is this a current diagnosis for this admission?: Yes (11) ESBL (extended spectrum beta-lactamase) producing bacteria infection Is this a current diagnosis for this admission?: Yes Plan: Seen in microbiology history, cultures growing ESBL E. coli, E faecalis, pseudomonas aeruginosa (12) HTN (hypertension) Qualifiers: Hypertension type: essential hypertension Qualified Code(s): I10 - Essential (primary) hypertension Is this a current diagnosis for this admission?: Yes (13) MRSA (methicillin resistant Staphylococcus aureus) colonization Is this a current diagnosis for this admission?: Yes (14) Morbid obesity Is this a current diagnosis for this admission?: Yes (15) Chronic pain syndrome Is this a current diagnosis for this admission?: Yes (16) History of pulmonary embolism Is this a current diagnosis for this admission?: Yes (17) Obstructive sleep apnea Is this a current diagnosis for this admission?: Yes - Plan Summary Summary: Patient will be admitted to the medical floor where she will receive routine supportive and symptomatic cares. She will be treated with IV cefepime 2 g every 12 hours initially pending blood and urine culture results. Serial lactic acid levels will be performed. Patient will be placed on a diabetic and cardiac restricted diet. AC and at bedtime Accu-Cheks will be obtained with sliding scale insulin for hyperglycemia and a hypoglycemic protocol in place. CBCs, metabolic profiles and additional laboratory and/or radiographic evaluations will be obtained as appropriate. Patient will receive Ativan 1 mg IV every 4 hours as needed for anxiety or restlessness. Patient received morphine sulfate 2 to 4 mg IV every 2 hours as needed for pain. Patient's usual retirement medications will be restarted, as appropriate, when her medication list has been verified and reconciled. - Time Time Spent with patient: 15-24 minutes Anticipated Discharge Disposition: Nursing Home Care Facility Anticipated Discharge Timeframe: within 36 hours - Inpatient Certification Based on my medical assessment, after consideration of the patient's comorbidities, presenting symptoms, or acuity I expect that the services needed warrant INPATIENT care.: Yes I certify that my determination is in accordance with my understanding of Medicare's requirements for reasonable and necessary INPATIENT services [42 CFR 412.3e].: Yes Medical Necessity: Significant Comorbidiites Make Outpatient Treatment Too Risky, Need Close Monitoring Due to Risk of Patient Decompensation, Need for IV Antibiotics, Risk of Complication if Not Cared For in Hospital, Risk of Diagnosis Which Will Require Inpatient Eval/Care/Monitoring
[2020-04-01] MEDS: ACETAMINOPHEN 325 MG TABLET PO PRN (15:21)
[2020-04-01] MEDS ORDERED: NA PHOS,M-B/NA PHOS,DI-BA (ADULT) 133 ML ENEMA PR ONE (21:00)
[2020-04-01] MEDS: INSULIN GLARGINE,HUM.REC.ANLOG 1,000 UNIT/10 ML VIAL SUBCUT SCH (21:52)
[2020-04-01] MEDS: MELATONIN 5 MG TABLET PO SCH (21:53)
[2020-04-02] MEDS: PROMETHAZINE HCL 25 MG TABLET PO PRN (01:22)
[2020-04-02] MEDS: IPRATROPIUM/ALBUTEROL 0.5-2.5 MG/3 ML AMPUL NEB SCH ×4 (02:06→19:44)
[2020-04-02] MEDS: ACETYLCYSTEINE 10% NEB 400 MG/4 ML VIAL NEB SCH ×4 (02:06→19:44)
[2020-04-02] MEDS: NYSTATIN 500000 UNIT/5 ML UDCUP PO SCH ×3 (05:06→16:59)
[2020-04-02] MEDS: PANTOPRAZOLE SODIUM 40 MG TABLET.DR PO SCH (05:07)
[2020-04-02] MEDS: DILTIAZEM HCL 30 MG TABLET PO SCH ×3 (05:07→21:38)
[2020-04-02] MEDS: PREGABALIN 50 MG CAPSULE PO SCH ×3 (05:07→21:38)
[2020-04-02] MEDS: FUROSEMIDE 40 MG TABLET PO SCH ×3 (05:07→21:38)
[2020-04-02] MEDS: SIMETHICONE 80 MG TAB.CHEW PO SCH ×3 (05:07→16:59)
[2020-04-02] MEDS: HEPARIN SOD (PORCINE) 5,000 UNIT/ML 1 ML VIAL SUBCUT SCH ×3 (05:07→21:40)
[2020-04-02] MEDS: BACLOFEN 10 MG TABLET PO SCH ×3 (05:07→21:38)
[2020-04-02] MEDS: POLYVINYL ALCOHOL 1.4% OPH SOLN 15 ML OU SCH ×3 (05:08→17:07)
[2020-04-02] MEDS: PIPERACILLIN SODIUM/TAZOBACTAM 2.25 GM in NORMAL SALINE 50 ML IV SCH ×3 (05:08→16:59)
[2020-04-02 06:26] LABS: ABSOLUTE LYMPHOCYTES (AUTO) 1.6 10^3/uL (0.5-4.7); ABSOLUTE MONOCYTES (AUTO) 0.7 10^3/uL (0.1-1.4); ABSOLUTE NEUT (AUTO) 5.5 10^3/uL (1.7-8.2); BASOPHILS % (AUTO) 0.2 % (0-2); EOSINOPHILS % (AUTO) 0.3 % (0-6); HEMATOCRIT 28.9 % (36.0-47.0); HEMOGLOBIN 9.9 g/dL (12.0-15.5); LYMPHOCYTES % (AUTO) 20.6 % (13-45); MEAN CORPUSCULAR HEMOGLOBIN 30.3 pg (27.0-33.4); MEAN CORPUSCULAR HGB CONC 34.4 g/dL (32.0-36.0); MEAN CORPUSCULAR VOLUME 88 fl (80-97); PLATELET COUNT 182 10^3/uL (150-450); RED BLOOD COUNT 3.27 10^6/uL (3.72-5.28); RED CELL DISTRIBUTION WIDTH 15.4 % (11.5-14.0); SEGMENTED NEUTROPHILS % (AUTO) 69.9 % (42-78); TOTAL CELLS COUNTED % (AUTO) 100 %; WHITE BLOOD COUNT 7.9 10^3/uL (4.0-10.5)
[2020-04-02 06:45] LABS: BLOOD UREA NITROGEN 56 mg/dL (7-20); CALCIUM 9.8 mg/dL (8.4-10.2); CHLORIDE 92 mmol/L (98-107); GLUCOSE 100 mg/dL (75-110); POTASSIUM 4.3 mmol/L (3.6-5.0)
[2020-04-02] MEDS: OXYCODONE HCL SR 10 MG TABLET PO PRN (06:50)
[2020-04-02 06:52] LABS: ANION GAP 8 (5-19)
[2020-04-02 06:57] LABS: CARBON DIOXIDE 39 mmol/L (22-30)
[2020-04-02] MEDS: INSULIN LISPRO 100 UNIT/ML 3 ML VIAL SUBCUT SCH ×4 (07:31→21:40)
[2020-04-02] MEDS: BUDESONIDE NEB 0.25 MG/2 ML AMPUL NEB SCH ×2 (07:40→19:44)
[2020-04-02] MEDS ORDERED: INFLUENZA QUAD (6MOS+) 2020-21 VAC 0.5 ML SYR IM ONE (08:00)
[2020-04-02] MEDS: LORATADINE 10 MG TABLET PO SCH (09:46)
[2020-04-02] MEDS: DULOXETINE HCL 30 MG CAPSULE.DR PO SCH (09:46)
[2020-04-02] MEDS: DOCUSATE SODIUM 100 MG CAPSULE PO SCH ×2 (09:46→16:59)
[2020-04-02] MEDS: ROFLUMILAST 500 MCG TABLET PO SCH (09:46)
[2020-04-02] MEDS: BUSPIRONE HCL 10 MG TABLET PO SCH ×2 (09:46→21:38)
[2020-04-02] MEDS: RANOLAZINE 500 MG TAB.SR.12H PO SCH ×2 (09:47→21:39)
[2020-04-02] MEDS: GUAIFENESIN 600 MG TABLET.SA PO SCH ×2 (09:47→21:38)
[2020-04-02] MEDS: METOPROLOL TARTRATE 25 MG TABLET PO SCH ×2 (09:47→21:38)
[2020-04-02] MEDS: POLYETHYLENE GLYCOL 3350 POWDER 17 GM/1 PACKET PO SCH (09:47)
[2020-04-02] MEDS: MAGNESIUM OXIDE 400 MG TABLET PO SCH (09:47)
[2020-04-02] MEDS: PREDNISONE 20 MG TABLET PO SCH (09:47)
[2020-04-02] MEDS: POTASSIUM CHLORIDE 20 MEQ PACKET PO SCH ×2 (09:47→16:59)
[2020-04-02] MEDS: METOLAZONE 5 MG TABLET PO SCH (09:48)
[2020-04-02] MEDS: SENNOSIDES/DOCUSATE 8.6-50 MG 1 EACH TABLET PO SCH (09:48)
[2020-04-02] MEDS: ALLOPURINOL 100 MG TABLET PO SCH (09:48)
[2020-04-02] MEDS: MULTIVITAMIN TABLET PO SCH (09:48)
[2020-04-02] MEDS: FLUTICASONE NASAL SPRAY 50 MCG/SPRY 120 SPRAY/16 GM NASL SCH ×2 (09:57→21:39)
[2020-04-02] MEDS: FLUTICASONE/VILANTEROL 200-25 MCG/DOSE IH SCH (09:57)
[2020-04-02] MEDS: OLOPATADINE HCL 0.1% OPH SOLN 5 ML OU SCH (09:58)
[2020-04-02] MEDS: POLYMYXIN B SULFATE/TMP OPH SOLN 10 ML OS SCH ×2 (09:58→13:27)
[2020-04-02] MEDS: UMECLIDINIUM BROMIDE 62.5 MCG/DOSE IH SCH (09:58)
--- NOTE | 2020-04-02 16:06 | PDOC PROGRESS REPORT ---
Subjective Progress Note for:: 04/02/20 Subjective:: No adverse events overnight. No new complaints. Vital signs been stable. Eating and drinking without difficulty. Reason For Visit: UTI,AMS Physical Exam Vital Signs: Temp Pulse Resp BP Pulse Ox 98.1 F 76 16 122/65 97 04/02/20 11:46 04/02/20 14:05 04/02/20 14:05 04/02/20 11:46 04/02/20 14:05 Intake & Output 04/01/20 04/02/20 04/03/20 06:59 06:59 06:59 Intake Total 1000 3300 290 Output Total 1700 4600 850 Balance -700 -1300 -560 Weight 91.2 kg 91.2 kg General appearance: PRESENT: no acute distress, morbidly obese, states she is having more of her chronic musculoskeletal pain today Head exam: PRESENT: atraumatic, normocephalic Eye exam: PRESENT: conjunctiva pink. ABSENT: scleral icterus Mouth exam: PRESENT: moist Respiratory exam: PRESENT: rhonchi - Upper airway rhonchorous sounds. ABSENT: rales, wheezes Cardiovascular exam: PRESENT: RRR. ABSENT: diastolic murmur, rubs, systolic murmur GI/Abdominal exam: PRESENT: normal bowel sounds, soft. ABSENT: distended, guarding, mass, organolmegaly, rebound, tenderness Extremities exam: ABSENT: pedal edema Neurological exam: PRESENT: alert, awake, oriented to person, oriented to place, oriented to time, oriented to situation Psychiatric exam: PRESENT: appropriate affect, normal mood Skin exam: PRESENT: dry, warm; RLE anterior owusu wound clean and healing Results Laboratory Results: 04/02/20 06:04 04/02/20 06:04 04/02/20 04/02/20 06:04 06:04 WBC 7.9 RBC 3.27 L Hgb 9.9 L Hct 28.9 L MCV 88 MCH 30.3 MCHC 34.4 RDW 15.4 H Plt Count 182 Seg Neutrophils % 69.9 Sodium 139.3 Potassium 4.3 Chloride 92 L Carbon Dioxide 39 H Anion Gap 8 BUN 56 H Creatinine 1.43 H Est GFR ( Amer) 43 L Glucose 100 Calcium 9.8 03/27/20 23:35 Barton Catheter Urine Culture - Final Pseudomonas Aeruginosa *Cre*Escherichia Coli 03/27/20 21:50 Blood Blood Culture - Final NO GROWTH IN 5 DAYS 03/27/20 21:02 Blood Blood Culture - Final NO GROWTH IN 5 DAYS 03/27/20 21:02 Troponin I 0.057 Impressions: Chest X-Ray 03/27/20 21:00 IMPRESSION: 1. No acute pulmonary findings. Head CT 03/27/20 21:04 IMPRESSION: 1. No acute intracranial abnormalities. Nonspecific white matter change most likely small vessel ischemic disease, age indeterminate. 2. CT is insensitive for early evaluation of acute stroke. If there is clinical concern for acute ischemia, an MRI may be considered. 3. Motion limited examination. Assessment and Plan - Diagnosis (1) Medication side effects Is this a current diagnosis for this admission?: Yes (2) UTI (urinary tract infection) due to urinary indwelling Barton catheter Qualifiers: Indwelling urinary catheter type: indwelling urethral catheter Encounter type: initial encounter Qualified Code(s): T83.511A - Infection and inflammatory reaction due to indwelling urethral catheter, initial encounter; N39.0 - Urinary tract infection, site not specified Is this a current diagnosis for this admission?: Yes (3) Acute and chronic respiratory failure with hypoxia Is this a current diagnosis for this admission?: Yes (4) Acute encephalopathy Is this a current diagnosis for this admission?: Yes (5) Anemia Qualifiers: Anemia type: iron deficiency Iron deficiency anemia type: other iron deficiency Qualified Code(s): D50.8 - Other iron deficiency anemias Is this a current diagnosis for this admission?: Yes (6) Benzodiazepine dependence, continuous Is this a current diagnosis for this admission?: Yes (7) COPD (chronic obstructive pulmonary disease) Qualifiers: Emphysema type: unspecified Is this a current diagnosis for this admission?: Yes (8) Chronic a-fib Is this a current diagnosis for this admission?: Yes (9) Constipation due to opioid therapy Is this a current diagnosis for this admission?: Yes (10) Coronary artery disease Qualifiers: Coronary Disease-Associated Artery/Lesion type: [place] artery Associated angina: without angina Is this a current diagnosis for this admission?: Yes (11) DM type 2 (diabetes mellitus, type 2) Is this a current diagnosis for this admission?: Yes (12) Morbid obesity with BMI of 40.0-44.9, adult Is this a current diagnosis for this admission?: Yes (13) Obstructive sleep apnea Is this a current diagnosis for this admission?: Yes (14) Opiate dependence, continuous Is this a current diagnosis for this admission?: Yes (15) Physical debility Is this a current diagnosis for this admission?: Yes - Plan Summary Summary: She is finishing her antibiotics for 2 more days for her urinary tract infection and then will return to [place] to continue rehab. - Time Time Spent with patient: 15-24 minutes Anticipated Discharge Disposition: Senior Living Facility Anticipated Discharge Timeframe: within 48 hours
[2020-04-02] MEDS: POLYMYXIN B SULFATE/TMP OPH SOLN 10 ML OU SCH ×2 (17:07→21:39)
[2020-04-02] MEDS: ACETAMINOPHEN 325 MG TABLET PO PRN (18:14)
[2020-04-02] MEDS: MELATONIN 5 MG TABLET PO SCH (21:38)
[2020-04-02] MEDS: INSULIN GLARGINE,HUM.REC.ANLOG 1,000 UNIT/10 ML VIAL SUBCUT SCH (21:41)
[2020-04-03] MEDS: OXYCODONE HCL SR 10 MG TABLET PO PRN ×3 (00:16→20:02)
[2020-04-03] MEDS: NYSTATIN 500000 UNIT/5 ML UDCUP PO SCH ×5 (00:16→23:32)
[2020-04-03] MEDS: SIMETHICONE 80 MG TAB.CHEW PO SCH ×5 (00:16→23:34)
[2020-04-03] MEDS: PIPERACILLIN SODIUM/TAZOBACTAM 2.25 GM in NORMAL SALINE 50 ML IV SCH ×5 (00:17→23:45)
[2020-04-03] MEDS: ACETAMINOPHEN 325 MG TABLET PO PRN ×3 (00:25→22:26)
[2020-04-03] MEDS: POLYVINYL ALCOHOL 1.4% OPH SOLN 15 ML OU SCH ×5 (01:44→23:45)
[2020-04-03] MEDS: ACETYLCYSTEINE 10% NEB 400 MG/4 ML VIAL NEB SCH ×4 (02:01→20:32)
[2020-04-03] MEDS: IPRATROPIUM/ALBUTEROL 0.5-2.5 MG/3 ML AMPUL NEB SCH ×4 (02:01→20:31)
[2020-04-03] MEDS: BENZONATATE 100 MG CAPSULE PO PRN ×2 (03:25→12:00)
[2020-04-03] MEDS: PREGABALIN 50 MG CAPSULE PO SCH ×3 (05:54→22:03)
[2020-04-03] MEDS: FUROSEMIDE 40 MG TABLET PO SCH ×3 (05:55→21:59)
[2020-04-03] MEDS: BACLOFEN 10 MG TABLET PO SCH ×3 (05:55→22:04)
[2020-04-03] MEDS: PANTOPRAZOLE SODIUM 40 MG TABLET.DR PO SCH (05:55)
[2020-04-03] MEDS: DILTIAZEM HCL 30 MG TABLET PO SCH ×3 (05:55→21:58)
[2020-04-03] MEDS: HEPARIN SOD (PORCINE) 5,000 UNIT/ML 1 ML VIAL SUBCUT SCH ×3 (05:57→22:00)
[2020-04-03] MEDS: BUDESONIDE NEB 0.25 MG/2 ML AMPUL NEB SCH ×2 (08:10→20:31)
[2020-04-03] MEDS: INSULIN LISPRO 100 UNIT/ML 3 ML VIAL SUBCUT SCH ×4 (09:09→21:59)
[2020-04-03] MEDS: MULTIVITAMIN TABLET PO SCH (09:23)
[2020-04-03] MEDS: ROFLUMILAST 500 MCG TABLET PO SCH (09:25)
[2020-04-03] MEDS: METOLAZONE 5 MG TABLET PO SCH (09:26)
[2020-04-03] MEDS: DOCUSATE SODIUM 100 MG CAPSULE PO SCH ×2 (09:31→17:13)
[2020-04-03] MEDS: ALLOPURINOL 100 MG TABLET PO SCH (09:31)
[2020-04-03] MEDS: GUAIFENESIN 600 MG TABLET.SA PO SCH ×2 (09:31→22:03)
[2020-04-03] MEDS: DULOXETINE HCL 30 MG CAPSULE.DR PO SCH (09:31)
[2020-04-03] MEDS: METOPROLOL TARTRATE 25 MG TABLET PO SCH ×2 (09:32→21:57)
[2020-04-03] MEDS: SENNOSIDES/DOCUSATE 8.6-50 MG 1 EACH TABLET PO SCH (09:32)
[2020-04-03] MEDS: BUSPIRONE HCL 10 MG TABLET PO SCH ×2 (09:32→21:55)
[2020-04-03] MEDS: MAGNESIUM OXIDE 400 MG TABLET PO SCH (09:32)
[2020-04-03] MEDS: LORATADINE 10 MG TABLET PO SCH (09:32)
[2020-04-03] MEDS: POLYETHYLENE GLYCOL 3350 POWDER 17 GM/1 PACKET PO SCH (09:33)
[2020-04-03] MEDS: POTASSIUM CHLORIDE 20 MEQ PACKET PO SCH ×2 (09:33→17:12)
[2020-04-03] MEDS: POLYMYXIN B SULFATE/TMP OPH SOLN 10 ML OU SCH ×4 (09:36→22:11)
[2020-04-03] MEDS: FLUTICASONE NASAL SPRAY 50 MCG/SPRY 120 SPRAY/16 GM NASL SCH ×2 (09:37→22:11)
[2020-04-03] MEDS: FLUTICASONE/VILANTEROL 200-25 MCG/DOSE IH SCH (09:37)
[2020-04-03] MEDS: UMECLIDINIUM BROMIDE 62.5 MCG/DOSE IH SCH (09:38)
[2020-04-03] MEDS: OLOPATADINE HCL 0.1% OPH SOLN 5 ML OU SCH (09:38)
[2020-04-03] MEDS: PREDNISONE 20 MG TABLET PO SCH (09:59)
[2020-04-03] MEDS: RANOLAZINE 500 MG TAB.SR.12H PO SCH ×2 (09:59→22:03)
--- NOTE | 2020-04-03 15:37 | PDOC PROGRESS REPORT ---
Subjective Progress Note for:: 04/03/20 Subjective:: No adverse events overnight. She says she has a headache. She says she feels like it is getting better. She wanted to know how much Tylenol she could take in a day. She also wanted her oxycodone started back the way she takes it at home. I had to remind her that she was overmedicated when she came in and we actually had to give her Narcan to wake her up when she was first admitted. Reason For Visit: UTI,AMS Physical Exam Vital Signs: Temp Pulse Resp BP Pulse Ox 98.3 F 90 16 168/60 H 99 04/03/20 11:51 04/03/20 13:52 04/03/20 13:52 04/03/20 11:51 04/03/20 13:52 Intake & Output 04/02/20 04/03/20 04/04/20 06:59 06:59 06:59 Intake Total 3300 1050 730 Output Total 4600 3250 1800 Balance -1300 -2200 -1070 Weight 91.2 kg General appearance: PRESENT: no acute distress, morbidly obese, states she is having more of her chronic musculoskeletal pain today Head exam: PRESENT: atraumatic, normocephalic Eye exam: PRESENT: conjunctiva pink. ABSENT: scleral icterus Mouth exam: PRESENT: moist Respiratory exam: PRESENT: rhonchi - Upper airway rhonchorous sounds. ABSENT: rales, wheezes Cardiovascular exam: PRESENT: RRR. ABSENT: diastolic murmur, rubs, systolic murmur GI/Abdominal exam: PRESENT: normal bowel sounds, soft. ABSENT: distended, guarding, mass, organolmegaly, rebound, tenderness Extremities exam: ABSENT: pedal edema Neurological exam: PRESENT: alert, awake, oriented to person, oriented to place, oriented to time, oriented to situation Psychiatric exam: PRESENT: appropriate affect, normal mood Skin exam: PRESENT: dry, warm; RLE anterior owusu wound clean and healing Results Laboratory Results: 04/02/20 06:04 04/02/20 06:04 03/27/20 23:35 Barton Catheter Urine Culture - Final Pseudomonas Aeruginosa *Cre*Escherichia Coli 03/27/20 21:02 Troponin I 0.057 Impressions: Chest X-Ray 03/27/20 21:00 IMPRESSION: 1. No acute pulmonary findings. Head CT 03/27/20 21:04 IMPRESSION: 1. No acute intracranial abnormalities. Nonspecific white matter change most likely small vessel ischemic disease, age indeterminate. 2. CT is insensitive for early evaluation of acute stroke. If there is clinical concern for acute ischemia, an MRI may be considered. 3. Motion limited examination. Assessment and Plan - Diagnosis (1) Medication side effects Is this a current diagnosis for this admission?: Yes (2) UTI (urinary tract infection) due to urinary indwelling Barton catheter Qualifiers: Indwelling urinary catheter type: indwelling urethral catheter Encounter type: initial encounter Qualified Code(s): T83.511A - Infection and inflammatory reaction due to indwelling urethral catheter, initial encounter; N39.0 - Urinary tract infection, site not specified Is this a current diagnosis for this admission?: Yes (3) Acute and chronic respiratory failure with hypoxia Is this a current diagnosis for this admission?: Yes (4) Acute encephalopathy Is this a current diagnosis for this admission?: Yes (5) Anemia Qualifiers: Anemia type: iron deficiency Iron deficiency anemia type: other iron deficiency Qualified Code(s): D50.8 - Other iron deficiency anemias Is this a current diagnosis for this admission?: Yes (6) Benzodiazepine dependence, continuous Is this a current diagnosis for this admission?: Yes (7) COPD (chronic obstructive pulmonary disease) Qualifiers: Emphysema type: unspecified Is this a current diagnosis for this admission?: Yes (8) Chronic a-fib Is this a current diagnosis for this admission?: Yes (9) Constipation due to opioid therapy Is this a current diagnosis for this admission?: Yes (10) Coronary artery disease Qualifiers: Coronary Disease-Associated Artery/Lesion type: [place] artery Associated angina: without angina Is this a current diagnosis for this admission?: Yes (11) DM type 2 (diabetes mellitus, type 2) Is this a current diagnosis for this admission?: Yes (12) Morbid obesity with BMI of 40.0-44.9, adult Is this a current diagnosis for this admission?: Yes (13) Obstructive sleep apnea Is this a current diagnosis for this admission?: Yes (14) Opiate dependence, continuous Is this a current diagnosis for this admission?: Yes (15) Physical debility Is this a current diagnosis for this admission?: Yes - Plan Summary Summary: She is finishing her antibiotics for another day for her urinary tract infection and then will return to [place] [facility] to continue rehab. I am not going to do anything with her oxycodone for fear of worsening her encephalopathy, which is now resolved. Her blood pressure was little bit elevated, possibly because she has a headache, but this patient [facility] medications at the [facility] and I am highly reluctant to start anything else. - Time Time Spent with patient: 15-24 minutes Anticipated Discharge Disposition: [facility] Facility Anticipated Discharge Timeframe: within 24 hours
[2020-04-03] MEDS ORDERED: LIDOCAINE 4% CREAM 5 GM TUBE ONE (21:25)
[2020-04-03] MEDS ORDERED: LIDOCAINE 4% CREAM 5 GM TUBE TP PRN (21:30)
[2020-04-03] MEDS: MELATONIN 5 MG TABLET PO SCH (21:57)
[2020-04-03] MEDS: INSULIN GLARGINE,HUM.REC.ANLOG 1,000 UNIT/10 ML VIAL SUBCUT SCH (21:59)
[2020-04-03] MEDS ORDERED: LIDOCAINE 5% (700 MG) TRANSDERMAL ADH..PATCH ONE (22:04)
[2020-04-04] MEDS: LEVALBUTEROL HCL NEB 0.63 MG/3 ML AMPUL NEB PRN (00:07)
[2020-04-04] MEDS: PROMETHAZINE HCL 25 MG TABLET PO PRN (01:57)
[2020-04-04] MEDS: ONDANSETRON HCL INJ/PF 4 MG/2 ML SDV IV PRN ×2 (02:02→10:15)
[2020-04-04] MEDS: ACETYLCYSTEINE 10% NEB 400 MG/4 ML VIAL NEB SCH ×3 (02:49→13:55)
[2020-04-04] MEDS: IPRATROPIUM/ALBUTEROL 0.5-2.5 MG/3 ML AMPUL NEB SCH ×3 (02:49→13:55)
[2020-04-04 05:48] LABS: HEMATOCRIT 32.3 % (36.0-47.0); MEAN CORPUSCULAR HEMOGLOBIN 29.9 pg (27.0-33.4); MEAN CORPUSCULAR HGB CONC 33.9 g/dL (32.0-36.0); MEAN CORPUSCULAR VOLUME 88 fl (80-97); PLATELET COUNT 201 10^3/uL (150-450); RED BLOOD COUNT 3.66 10^6/uL (3.72-5.28); RED CELL DISTRIBUTION WIDTH 15.4 % (11.5-14.0); WHITE BLOOD COUNT 8.2 10^3/uL (4.0-10.5)
[2020-04-04] MEDS: BACLOFEN 10 MG TABLET PO SCH ×2 (05:49→15:22)
[2020-04-04] MEDS: DILTIAZEM HCL 30 MG TABLET PO SCH ×2 (05:49→15:21)
[2020-04-04] MEDS: HEPARIN SOD (PORCINE) 5,000 UNIT/ML 1 ML VIAL SUBCUT SCH ×2 (05:49→15:20)
[2020-04-04] MEDS: NYSTATIN 500000 UNIT/5 ML UDCUP PO SCH ×2 (05:50→15:22)
[2020-04-04] MEDS: PREGABALIN 50 MG CAPSULE PO SCH ×2 (05:50→15:19)
[2020-04-04] MEDS: FUROSEMIDE 40 MG TABLET PO SCH ×2 (05:50→15:20)
[2020-04-04] MEDS: SIMETHICONE 80 MG TAB.CHEW PO SCH ×2 (05:50→15:19)
[2020-04-04] MEDS: POLYVINYL ALCOHOL 1.4% OPH SOLN 15 ML OU SCH ×2 (05:51→15:22)
[2020-04-04] MEDS: PANTOPRAZOLE SODIUM 40 MG TABLET.DR PO SCH (05:51)
[2020-04-04] MEDS: PIPERACILLIN SODIUM/TAZOBACTAM 2.25 GM in NORMAL SALINE 50 ML IV SCH ×2 (05:51→11:20)
[2020-04-04 06:13] LABS: ABSOLUTE LYMPHOCYTES# (MANUAL) 1.3 10^3/uL (0.5-4.7); ABSOLUTE MONOCYTES # (MANUAL) 0.4 10^3/uL (0.1-1.4); BASOPHILS % (MANUAL) 0 % (0-2); EOSINOPHILS % (MANUAL) 0 % (0-6); LYMPHOCYTES % (MANUAL) 16 % (13-45); MONOCYTES % (MANUAL) 5 % (3-13); SEGMENTED NEUTROPHILS % (MAN) 79 % (42-78); TOTAL CELLS COUNTED 100
[2020-04-04 06:15] LABS: ANISOCYTOSIS SLIGHT; OVALOCYTES SLIGHT; PLATELET COMMENT ADEQUATE; POIKILOCYTOSIS SLIGHT; TOXIC GRANULATION SLIGHT
[2020-04-04 06:27] LABS: BLOOD UREA NITROGEN 61 mg/dL (7-20); CHLORIDE 89 mmol/L (98-107); GLUCOSE 120 mg/dL (75-110); POTASSIUM 4.3 mmol/L (3.6-5.0)
[2020-04-04 06:33] LABS: ANION GAP 11 (5-19); CARBON DIOXIDE 38 mmol/L (22-30)
[2020-04-04] MEDS: BUDESONIDE NEB 0.25 MG/2 ML AMPUL NEB SCH (08:07)
[2020-04-04] MEDS: INSULIN LISPRO 100 UNIT/ML 3 ML VIAL SUBCUT SCH ×2 (08:09→12:09)
[2020-04-04] MEDS: OXYCODONE HCL SR 10 MG TABLET PO PRN (08:13)
[2020-04-04] MEDS: DULOXETINE HCL 30 MG CAPSULE.DR PO SCH (10:39)
[2020-04-04] MEDS: GUAIFENESIN 600 MG TABLET.SA PO SCH (10:39)
[2020-04-04] MEDS: ALLOPURINOL 100 MG TABLET PO SCH (10:39)
[2020-04-04] MEDS: DOCUSATE SODIUM 100 MG CAPSULE PO SCH (10:39)
[2020-04-04] MEDS: POLYETHYLENE GLYCOL 3350 POWDER 17 GM/1 PACKET PO SCH (10:41)
[2020-04-04] MEDS: POTASSIUM CHLORIDE 20 MEQ PACKET PO SCH (10:41)
[2020-04-04] MEDS: MAGNESIUM OXIDE 400 MG TABLET PO SCH (10:41)
[2020-04-04] MEDS: MULTIVITAMIN TABLET PO SCH (10:42)
[2020-04-04] MEDS: RANOLAZINE 500 MG TAB.SR.12H PO SCH (10:42)
[2020-04-04] MEDS: PREDNISONE 20 MG TABLET PO SCH (10:42)
[2020-04-04] MEDS: BUSPIRONE HCL 10 MG TABLET PO SCH (10:42)
[2020-04-04] MEDS: METOPROLOL TARTRATE 25 MG TABLET PO SCH (10:43)
[2020-04-04] MEDS: METOLAZONE 5 MG TABLET PO SCH (10:44)
[2020-04-04] MEDS: ROFLUMILAST 500 MCG TABLET PO SCH (10:44)
[2020-04-04] MEDS: FLUTICASONE/VILANTEROL 200-25 MCG/DOSE IH SCH (10:45)
[2020-04-04] MEDS: LORATADINE 10 MG TABLET PO SCH (10:46)
[2020-04-04] MEDS: FLUTICASONE NASAL SPRAY 50 MCG/SPRY 120 SPRAY/16 GM NASL SCH (10:48)
[2020-04-04] MEDS: OLOPATADINE HCL 0.1% OPH SOLN 5 ML OU SCH (10:49)
[2020-04-04] MEDS: UMECLIDINIUM BROMIDE 62.5 MCG/DOSE IH SCH (10:49)
[2020-04-04] MEDS: POLYMYXIN B SULFATE/TMP OPH SOLN 10 ML OU SCH ×2 (10:50→15:24)
[2020-04-04] MEDS: SENNOSIDES/DOCUSATE 8.6-50 MG 1 EACH TABLET PO SCH (10:53)
[2020-04-04] MEDS: FENTANYL 25 MCG/HR PATCH.TD72 TD SCH (10:57)
[2020-04-04] MEDS: BENZONATATE 100 MG CAPSULE PO PRN (12:07)
[2020-04-04] MEDS: ACETAMINOPHEN 325 MG TABLET PO PRN (12:07)
--- NOTE | 2020-04-04 15:21 | PDOC TRANSFER SUMMARY ---
Impression - Admit/DC Date/PCP Admission Date/Primary Care Provider: 03/27/20 23:53 KARTHIKEYAN HERNANDEZ MD Discharge Date: 04/04/20 - Discharge Diagnosis (1) Medication side effects Is this a current diagnosis for this admission?: Yes (2) UTI (urinary tract infection) due to urinary indwelling Barton catheter Is this a current diagnosis for this admission?: Yes (3) Acute and chronic respiratory failure with hypoxia Is this a current diagnosis for this admission?: Yes (4) Acute encephalopathy Is this a current diagnosis for this admission?: Yes (5) Anemia Is this a current diagnosis for this admission?: Yes (6) Benzodiazepine dependence, continuous Is this a current diagnosis for this admission?: Yes (7) COPD (chronic obstructive pulmonary disease) Is this a current diagnosis for this admission?: Yes (8) Chronic a-fib Is this a current diagnosis for this admission?: Yes (9) Constipation due to opioid therapy Is this a current diagnosis for this admission?: Yes (10) Coronary artery disease Is this a current diagnosis for this admission?: Yes (11) DM type 2 (diabetes mellitus, type 2) Is this a current diagnosis for this admission?: Yes (12) Morbid obesity with BMI of 40.0-44.9, adult Is this a current diagnosis for this admission?: Yes (13) Obstructive sleep apnea Is this a current diagnosis for this admission?: Yes (14) Opiate dependence, continuous Is this a current diagnosis for this admission?: Yes (15) Physical debility Is this a current diagnosis for this admission?: Yes - Assessment Summary: She is finishing her antibiotics for another day for her urinary tract infection and then will return to [place] to continue rehab. I am not going to do anything with her oxycodone for fear of worsening her encephalopathy, which is now resolved. Her blood pressure was little bit elevated, possibly because she has a headache, but this patient takes 44 different medications at the [facility] and I am highly reluctant to start anything else. - Additional Information Resuscitation Status: Full Code Discharge Diet: Cardiac, Diabetic Discharge Activity: Slowly Increase Activity, Supervised Activity Referrals: [facility] [Outside] KARTHIKEYAN HERNANDEZ MD [Primary Care Provider] - Follow up as needed Prescriptions: Fentanyl [Duragesic 25 mcg/hr Transdermal Patch] 1 each TD Q3DAYS #1 patch.[id number] Home Medications: Acetylcysteine [Mucomist 10% Neb 400 mg/4 mL Vial] 1 appful IH Q6 03/27/20 Allopurinol [Zyloprim 100 mg Tablet] 200 mg PO DAILY 03/27/20 Baclofen [Baclofen 10 mg Tablet] 10 mg PO TID 03/27/20 Budesonide [Pulmicort Neb 0.25 mg/2 ml Ampul] 0.25 mg NEB BID 03/27/20 Buspirone HCl 1 tab PO Q12H 03/27/20 Diltiazem HCl [Cardizem 30 mg Tablet] 1 tab PO TID 03/27/20 Docusate Sodium [Colace 100 mg Capsule] 100 mg PO BID 03/27/20 Duloxetine HCl [Cymbalta] 30 mg PO DAILY 03/27/20 Eyelid Cleanser Comb No.7 [Ocusoft Lid Scrub] 1 each TP BID 03/27/20 Fexofenadine HCl [Shaniqua Allergy] 60 mg PO DAILY 03/27/20 Fluticasone Propionate [Flonase Nasal [place] 50 Mcg/[place] 16 gm] 2 spray NASL Q12 03/27/20 Fluticasone/Salmeterol [Advair 500-50 Diskus 14 Dose/Diskus] 1 inh IH Q12H 03/27/20 Furosemide [Lasix 80 mg Tablet] 80 mg PO QAM 03/27/20 Guaifenesin [Mucus ER] 600 mg PO Q12H 03/27/20 Insulin Aspart [Novolog Insulin (Aspart) 100 unit/mL] 0 unit SUBCUT .SLD SCALE 03/27/20 Insulin Detemir [Levemir Insulin 100 units/mL Insulin Pen] 32 unit SUBCUT QHS 03/27/20 Ipratropium/Albuterol Sulfate [Duoneb 3 ml Ampul] 3 ml NEB Q4H 03/27/20 Lidocaine [Lidocaine Pain Relief] 1 each TP Q12H 03/27/20 Linaclotide [Linzess 145 Mcg Capsule] 145 mcg PO DAILY 03/27/20 Magnesium Oxide [Magnesium] 400 mg PO DAILY 03/27/20 Melatonin 10 mg PO QHS 03/27/20 Metolazone [Zaroxolyn 5 mg Tablet] 5 mg PO DAILY 03/27/20 Metoprolol Tartrate [Lopressor 25 mg Tablet] 25 mg PO BID 03/27/20 Multivitamin [Multiple Vitamins] 1 tab PO DAILY 03/27/20 Nitroglycerin [Nitrostat 0.4 mg (1/150 Gr) Tabs 25/Bottle] 1 tab SL Q5MP PRN 03/27/20 Nystatin [Mycostatin 455752 Unit/1 ml Susp 60 ml Btl] 10 ml PO Q6H 03/27/20 Olopatadine HCl [Pataday] 1 drop OU DAILY 03/27/20 Omeprazole Magnesium [Prilosec Otc] 40 mg PO DAILY 03/27/20 Polyethylene Glycol 3350 [Miralax Powder 17 gm/Packet] 1 packet PO DAILY 03/27/20 Polymyxin B Sulf/Trimethoprim [Polytrim Eye Drops] 1 drop OP QID 03/27/20 Polyvinyl Alcohol [Liquitears 1.4% Ophth Soln 15 ml] 1 drop OP Q6H 03/27/20 Potassium Chloride [Klor-Con] 20 meq PO BID 03/27/20 Prednisone [Deltasone 20 mg Tablet] 60 mg PO DAILY 03/27/20 Pregabalin [Lyrica 50 mg Capsule] 50 mg PO QHS 03/27/20 Ranolazine [Ranexa 500 mg Tab.sr] 500 mg PO Q12 03/27/20 Roflumilast [Daliresp] 500 mcg PO DAILY 03/27/20 Sennosides/Docusate Sodium [Senna Plus 8.6-50 mg Tablet] 1 each PO DAILY 03/27/20 Simethicone [Gas Relief] 80 mg PO Q6H 03/27/20 Umeclidinium [place] [Incruse Ellipta] 1 inh IH DAILY 03/27/20 Witch Alicia [Preparation H] 1 each TP QHS 03/27/20 Fentanyl [Duragesic 25 mcg/hr Transdermal Patch] 1 each TD Q3DAYS #1 patch.[id number] 04/04/20 History of Present Illiness History of Present Illness: PORSHA WALDRON is a 74 year old female who presents the emergency room via EMS with a 3-day history of altered mental status (disorientation). correction staff reports that the patient has been progressively deteriorating in her mental status becoming increasingly disoriented and somnolent. Patient's altered mental status has been associated with generalized weakness and accompanied by decreased oral intake. Patient symptoms became severe this evening. Patient has altered mental status and is unable to provide input into her medical history. In the emergency room the patient was found to be clinically dehydrated and somnolent with resolution of her somnolence obtained by removing her fentanyl patch and giving her Narcan. She became more alert but remains confused. She was noted to have pyuria in the emergency room and blood and urine cultures were obtained prior to initiation of antibiotic therapy. Patient was subsequently admitted to hospital for further evaluation treatment. Hospital Course Hospital Course: She had a couple of different issues during this hospitalization. She was treated with a course of antibiotics for a resistant catheter associated urinary tract infection. She is completed a course of Zosyn. Her Barton catheter has been changed out. Her Barton should be changed every 2 to 4 weeks. There were also some issues with polypharmacy. We de-escalated several of the sedating medications and her mental status improved. When she first came in in the ER and was encephalopathic she was given some Narcan and immediately woke up. We have discontinued her oxycodone and have cut back on her fentanyl patch subs tantially. These changes are reflected in her discharge medication list. She is on a lot of different medications at home, at one point I counted 44, and it is strongly recommended that if any of these can be discontinued that it would be a good idea for her list to be streamlined substantially. She is going back to [facility] today. Her labs and examination were reassuring and she was discharged in stable condition. Physical Exam Vital Signs: Temp Pulse Resp BP Pulse Ox 98.9 F 93 18 141/80 H 99 04/04/20 08:37 04/04/20 13:57 04/04/20 13:57 04/04/20 00:32 04/04/20 13:57 Intake & Output 04/03/20 04/04/20 04/05/20 06:59 06:59 06:59 Intake Total 1050 2310 Output Total 3250 4550 Balance -2200 -2240 Weight 91.2 kg General appearance: PRESENT: no acute distress, morbidly obese, states she is having more of her chronic musculoskeletal pain today Head exam: PRESENT: atraumatic, normocephalic Eye exam: PRESENT: conjunctiva pink. ABSENT: scleral icterus Mouth exam: PRESENT: moist Respiratory exam: PRESENT: rhonchi - Upper airway rhonchorous sounds. ABSENT: rales, wheezes Cardiovascular exam: PRESENT: RRR. ABSENT: diastolic murmur, rubs, systolic murmur GI/Abdominal exam: PRESENT: normal bowel sounds, soft. ABSENT: distended, guarding, mass, organolmegaly, rebound, tenderness Extremities exam: ABSENT: pedal edema Neurological exam: PRESENT: alert, awake, oriented to person, oriented to place, oriented to time, oriented to situation Psychiatric exam: PRESENT: appropriate affect, normal mood Skin exam: PRESENT: dry, warm; RLE anterior owusu wound clean and healing Results Laboratory Results: WBC 8.2 10^3/uL (4.0-10.5) 04/04/20 05:23 RBC 3.66 10^6/uL (3.72-5.28) L 04/04/20 05:23 Hgb 11.0 g/dL (12.0-15.5) L 04/04/20 05:23 Hct 32.3 % (36.0-47.0) L 04/04/20 05:23 MCV 88 fl (80-97) 04/04/20 05:23 MCH 29.9 pg (27.0-33.4) 04/04/20 05:23 MCHC 33.9 g/dL (32.0-36.0) 04/04/20 05:23 RDW 15.4 % (11.5-14.0) H 04/04/20 05:23 Plt Count 201 10^3/uL (150-450) 04/04/20 05:23 Lymph % (Auto) Not Reportable 04/04/20 05:23 Mellette % (Auto) Not Reportable 04/04/20 05:23 Eos % (Auto) Not Reportable 04/04/20 05:23 Baso % (Auto) Not Reportable 04/04/20 05:23 Absolute Neuts (auto) Not Reportable 04/04/20 05:23 Absolute Lymphs (auto) Not Reportable 04/04/20 05:23 Absolute Monos (auto) Not Reportable 04/04/20 05:23 Absolute Eos (auto) Not Reportable 04/04/20 05:23 Absolute Basos (auto) Not Reportable 04/04/20 05:23 Total Counted 100 04/04/20 05:23 Seg Neutrophils % Not Reportable 04/04/20 05:23 Seg Neuts % (Manual) 79 % (42-78) H 04/04/20 05:23 Lymphocytes % (Manual) 16 % (13-45) 04/04/20 05:23 Monocytes % (Manual) 5 % (3-13) 04/04/20 05:23 Eosinophils % (Manual) 0 % (0-6) 04/04/20 05:23 Basophils % (Manual) 0 % (0-2) 04/04/20 05:23 Abs Neuts (Manual) 6.5 10^3/uL (1.7-8.2) 04/04/20 05:23 Abs Lymphs (Manual) 1.3 10^3/uL (0.5-4.7) 04/04/20 05:23 Abs Monocytes (Manual) 0.4 10^3/uL (0.1-1.4) 04/04/20 05:23 Absolute Eos (Manual) 0.0 10^3/uL (0.0-0.6) 04/04/20 05:23 Abs Basophils (Manual) 0.0 10^3/uL (0.0-0.2) 04/04/20 05:23 Toxic Granulation SLIGHT 04/04/20 05:23 Platelet Comment ADEQUATE 04/04/20 05:23 Poikilocytosis SLIGHT 04/04/20 05:23 Anisocytosis SLIGHT 04/04/20 05:23 Ovalocytes SLIGHT 04/04/20 05:23 Sodium 137.6 mmol/L (137-145) 04/04/20 05:23 Potassium 4.3 mmol/L (3.6-5.0) 04/04/20 05:23 Chloride 89 mmol/L (98-107) L 04/04/20 05:23 Carbon Dioxide 38 mmol/L (22-30) H 04/04/20 05:23 Anion Gap 11 (5-19) 04/04/20 05:23 BUN 61 mg/dL (7-20) H 04/04/20 05:23 Creatinine 1.62 mg/dL (0.52-1.25) H 04/04/20 05:23 Est GFR ( Amer) 37 (>60) L 04/04/20 05:23 Est GFR (MDRD) Non-Af 31 (>60) L 04/04/20 05:23 Glucose 120 mg/dL (75-110) H 04/04/20 05:23 POC Glucose 210 mg/dL (70-110) H 04/04/20 11:24 Serum Osmolality 310 mOsm/kg (275-301) H 03/28/20 04:20 Lactic Acid 0.8 mmol/L (0.7-2.1) 03/28/20 08:16 Calcium 10.0 mg/dL (8.4-10.2) 04/04/20 05:23 Magnesium 2.0 mg/dL (1.6-2.3) 03/30/20 06:29 Total Bilirubin 0.6 mg/dL (0.2-1.3) 03/27/20 21:02 Direct Bilirubin 0.5 mg/dL (0.0-0.4) H 03/27/20 21:02 Neonat Total Bilirubin Not Reportable 03/27/20 21:02 Neonat Direct Bilirubin Not Reportable 03/27/20 21:02 Neonat Indirect Bili Not Reportable 03/27/20 21:02 AST 21 U/L (14-36) 03/27/20 21:02 ALT 15 U/L (<35) 03/27/20 21:02 Alkaline Phosphatase 84 U/L (38-126) 03/27/20 21:02 Troponin I 0.057 ng/mL 03/27/20 21:02 Total Protein 6.7 g/dL (6.3-8.2) 03/27/20 21:02 Albumin 3.7 g/dL (3.5-5.0) 03/27/20 21:02 Urine Color YELLOW 03/27/20 22:00 Urine Appearance CLOUDY 03/27/20 22:00 Urine pH 6.0 (5.0-9.0) 03/27/20 22:00 Ur Specific [place] 1.012 03/27/20 22:00 Urine Protein NEGATIVE mg/dL (NEGATIVE) 03/27/20 22:00 Urine Glucose (UA) NEGATIVE mg/dL (NEGATIVE) 03/27/20 22:00 Urine Ketones NEGATIVE mg/dL (NEGATIVE) 03/27/20 22:00 Urine Blood MODERATE (NEGATIVE) H 03/27/20 22:00 Urine Nitrite NEGATIVE (NEGATIVE) 03/27/20 22:00 Urine Bilirubin NEGATIVE (NEGATIVE) 03/27/20 22:00 Urine Urobilinogen NEGATIVE mg/dL (<2.0) 03/27/20 22:00 Ur Leukocyte Esterase LARGE (NEGATIVE) H 03/27/20 22:00 Urine WBC (Auto) >182 /HPF 03/27/20 22:00 Urine RBC (Auto) 19 /HPF 03/27/20 22:00 U Hyaline Cast (Auto) 15 /LPF 03/27/20 22:00 Urine Bacteria (Auto) 2+ /HPF 03/27/20 22:00 Urine WBC Clumps MANY /HPF 03/27/20 22:00 Squamous Epi Cells Auto 11 /HPF 03/27/20 22:00 Urine Mucus (Auto) RARE /LPF 03/27/20 22:00 Urine Ascorbic Acid NEGATIVE (NEGATIVE) 03/27/20 22:00 Ethylene Glycol <5 mg/dL (None detec) 03/28/20 11:37 Methyl Alcohol, Quant <.010 % (0.000-0.01) 03/28/20 11:37 03/27/20 21:02 Troponin I 0.057 Impressions: Chest X-Ray 03/27/20 21:00 IMPRESSION: 1. No acute pulmonary findings. Head CT 03/27/20 21:04 IMPRESSION: 1. No acute intracranial abnormalities. Nonspecific white matter change most likely small vessel ischemic disease, age indeterminate. 2. CT is insensitive for early evaluation of acute stroke. If there is clinical concern for acute ischemia, an MRI may be considered. 3. Motion limited examination. Plan Time Spent: Greater than 30 Minutes Stroke Is this a Stroke Patient?: No Acute Heart Failure Is this a Heart Failure Patient?: No
[2020-04-04 16:32] VITALS: BP 167/84
== END 2020-04-04 18:22 | DRG 698 ==
LOC: ER 20:51 → EH 23:53 → 4S 03-28 02:20
PROVIDERS: ADMIT Emergency Medicine; ATTEND Family Medicine
PROC: 5A09557 Assistance with Respiratory Ventilation, Greater than 96 Consecutive Hours, Continuous Positive Airway Pressure (ICD-10-PCS; principal; 2020-03-29)
PROC: 3E02340 Introduction of Influenza Vaccine into Muscle, Percutaneous Approach (ICD-10-PCS; 2020-04-04)
DX: T83.518A Infection and inflammatory reaction due to other urinary catheter, initial encounter (principal); J96.21 Acute and chronic respiratory failure with hypoxia; G92 Toxic encephalopathy; F13.20 Sedative, hypnotic or anxiolytic dependence, uncomplicated; Z68.41 Body mass index [BMI] 40.0-44.9, adult; F11.20 Opioid dependence, uncomplicated; N39.0 Urinary tract infection, site not specified; N17.9 Acute kidney failure, unspecified; I50.32 Chronic diastolic (congestive) heart failure; I13.0 Hypertensive heart and chronic kidney disease with heart failure and stage 1 through stage 4 chronic kidney disease, or unspecified chronic kidney disease; J44.0 Chronic obstructive pulmonary disease with (acute) lower respiratory infection; Z16.12 Extended spectrum beta lactamase (ESBL) resistance; Z16.23 Resistance to quinolones and fluoroquinolones; E27.3 Drug-induced adrenocortical insufficiency; Y84.6 Urinary catheterization as the cause of abnormal reaction of the patient, or of later complication, without mention of misadventure at the time of the procedure; Z66 Do not resuscitate; K59.03 Drug induced constipation; T40.2X5A Adverse effect of other opioids, initial encounter; I25.10 Atherosclerotic heart disease of native coronary artery without angina pectoris; E66.01 Morbid (severe) obesity due to excess calories; G47.33 Obstructive sleep apnea (adult) (pediatric); E86.0 Dehydration; E78.5 Hyperlipidemia, unspecified; K21.9 Gastro-esophageal reflux disease without esophagitis; M79.7 Fibromyalgia; M10.9 Gout, unspecified; F32.9 Major depressive disorder, single episode, unspecified; F03.90 Unspecified dementia, unspecified severity, without behavioral disturbance, psychotic disturbance, mood disturbance, and anxiety; I48.0 Paroxysmal atrial fibrillation; R41.0 Disorientation, unspecified; G89.4 Chronic pain syndrome; N18.9 Chronic kidney disease, unspecified; D63.1 Anemia in chronic kidney disease; E11.22 Type 2 diabetes mellitus with diabetic chronic kidney disease; J20.9 Acute bronchitis, unspecified; B96.20 Unspecified Escherichia coli [E. coli] as the cause of diseases classified elsewhere; B96.5 Pseudomonas (aeruginosa) (mallei) (pseudomallei) as the cause of diseases classified elsewhere; T38.0X5A Adverse effect of glucocorticoids and synthetic analogues, initial encounter; D50.8 Other iron deficiency anemias; Y92.9 Unspecified place or not applicable; Z23 Encounter for immunization; Z79.899 Other long term (current) drug therapy; Z79.51 Long term (current) use of inhaled steroids; Z79.4 Long term (current) use of insulin; Z86.718 Personal history of other venous thrombosis and embolism; Z86.711 Personal history of pulmonary embolism; Z87.01 Personal history of pneumonia (recurrent); Z86.14 Personal history of Methicillin resistant Staphylococcus aureus infection; Z74.01 Bed confinement status; Z87.891 Personal history of nicotine dependence; Z88.2 Allergy status to sulfonamides; Z88.8 Allergy status to other drugs, medicaments and biological substances; Z91.040 Latex allergy status; Z82.61 Family history of arthritis; Z82.3 Family history of stroke; Z83.3 Family history of diabetes mellitus; Z82.49 Family history of ischemic heart disease and other diseases of the circulatory system
CPT/HCPCS: 36415; 51702; 70450; 71045; 80048; 80053; 81001; 82693; 82962; 83605; 83735; 83930; 84484; 84600; 85025; 87040; 87086; 87088; 87186; 90471; 90686; 93005; 93010; 94660; 96365; 96375; 99285; G0008; J0692; J1644; J1815; J2310; J2405; J2543; J3370; J3480; J3490; J7120; J7512; J7608

== ENCOUNTER 2020-04-24 15:24 | Emergency (ER) | payer MEDICARE, MEDICAID ==
--- NOTE | 2020-04-24 16:12 | ER Document Report ---
ED General - General Chief Complaint: Leg Injury Stated Complaint: LEG PAIN Primary Care Provider: KARTHIKEYAN HERNANDEZ MD [Primary Care Provider] - Follow up as needed Notes: Patient is a 74-year-old white female with a history of chronic respiratory failure history of DVT, COPD, opioid dependence, CHF, sleep apnea, atrial fibrillation, anemia, hypothyroidism, prior [place], type 2 diabetes, adrenal insufficiency, CAD and fibromyalgia who is on supplemental oxygen 2 L via nasal cannula regularly who presents to the emergency department with a chief complaint of right knee pain. The patient states on her bedside table follow-up fell striking there right knee. She states she is had pain and some swelling in the knee since. She states this morning she requested an x-ray given the ongoing pain in the x-ray showed a fracture of the distal femur of a knee replacement with displacement of the distal portion of the fracture laterally. Patient was then sent here from her assisted living facility [facility] for further care and management. Patient has a 25 mcg fentanyl patch in the right upper chest but complaining of ongoing pain and is tearful. Denies any numbness tingling or weakness. TRAVEL OUTSIDE OF THE [place] IN LAST 30 DAYS: No - Related Data Allergies/Adverse Reactions: Sulfa (Sulfonamide Antibiotics) Allergy (Intermediate, Verified 03/27/20 21:15) latex Allergy (Unknown, Verified 03/27/20 21:15) adhesive tape Allergy (Verified 03/27/20 21:15) atorvastatin calcium [From Lipitor] Allergy (Verified 03/27/20 21:15) celecoxib [From Celebrex] Allergy (Verified 03/27/20 21:15) Past Medical History - Social History Smoking Status: Unknown if Ever Smoked Family History: Arthritis, CAD, CVA, DM, Hyperlipidemia, Hypertension Patient has homicidal ideation: No - Past Medical History Cardiac Medical History: Reports: Hx Atrial Fibrillation, Hx Congestive Heart Failure - Diastolic dysfunction, Hx Coronary Artery Disease, Hx DVT, Hx Heart Attack, Hx Hypercholesterolemia, Hx Hypertension - essential, Hx Pulmonary Embolism, Hx Heart Murmur Denies: Hx Peripheral Vascular Disease Pulmonary Medical History: Reports: Hx Asthma, Hx Bronchitis, Hx COPD, Hx Pneumonia - Recurrent MRSA pneumonia., Hx Respiratory Failure - Chronic, Hx Sleep Apnea - Uses C Pap Denies: Hx Tuberculosis Neurological Medical History: Denies: Hx Seizures Endocrine Medical History: Reports: Hx Diabetes Mellitus Type 2. Denies: Hx Diabetes Mellitus Type 1, Hx Hyperthyroidism, Hx Hypothyroidism Renal/ Medical History: Reports: Hx Renal Insufficiency. Denies: Hx Peritoneal Dialysis GI Medical History: Reports: Hx Gastroesophageal Reflux Disease, Hx Hiatal Hernia. Denies: Hx Cirrhosis, Hx Crohn's Disease, Hx Hepatitis, Hx Ulcerative Colitis Musculoskeletal Medical History: Reports Hx Arthritis, Reports Hx Fibromyalgia, Reports Hx Gout, Reports Hx Muscle Weakness Skin Medical History: Denies Hx Eczema, Denies Hx Psoriasis Psychiatric Medical History: Reports: Hx Anxiety, Hx Dementia, Hx Depression Infectious Medical History: Reports: Hx C-Diff, Hx MRSA. Denies: Hx Hepatitis Past Surgical History: Reports: Hx Appendectomy, Hx Cholecystectomy, Hx Hysterectomy, Hx Orthopedic Surgery - Multiple left hip procedures, 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 - Immunizations Hx Diphtheria, Pertussis, Tetanus Vaccination: Yes Hx Pneumococcal Vaccination: 05/20/13 Review of Systems - Review of Systems Constitutional: denies: Fever EENT: denies: Nose pain Cardiovascular: denies: Orthopnea Respiratory: denies: Sputum Gastrointestinal: denies: Poor fluid intake Genitourinary: denies: Pain Female Genitourinary: denies: Irregular period Musculoskeletal: denies: Muscle pain Skin: denies: Lesions Hematologic/Lymphatic: denies: Easy bleeding Neurological/Psychological: denies: Weakness Physical Exam - Vital signs Vitals: Temp Pulse Resp BP Pulse Ox 98.9 F 81 22 H 144/44 H 100 04/24/20 15:35 04/24/20 15:35 04/24/20 15:35 04/24/20 15:35 04/24/20 15:35 - General General appearance: Appears well, Alert In distress: None - Respiratory Respiratory status: No respiratory distress Chest status: Nontender - Cardiovascular Rhythm: Regular Heart sounds: Normal auscultation - Extremities Knee: Other - Knee held in about 10 degrees of flexion with the hip externally rotated. Obvious edema with diffuse tenderness about the right anterior knee. No palpable deformities. Unable to assess range of motion and gait secondary to pain and reported fracture - Neurological Neuro grossly intact: Yes Cognition: Normal Orientation: AAOx4 - Psychological Associated symptoms: Tearful - Skin Skin Temperature: Warm Skin Moisture: Dry Skin Color: Normal Course - Re-evaluation Re-evalutation: 04/24/20 18:31 Spoke with the radiologist regarding his CT and he advised there is artifact and recommended a repeat x-ray. X-ray show a knee same distal femur fracture with lateral displacement of the fracture fragment. Discussed with orthopedist on- call, Dr. Lara. He advised as the patient is not a surgical candidate to place her in a bulky dressing with a knee immobilizer and have her follow-up outpatient. The patient also subsequently has a slightly elevated white count slight increase in her baseline creatinine and evidence of a catheter associated UTI which she had previously here in the ED during her hospitalization. She was given a liter normal saline. Her catheter was removed and replaced with a new one. She was given 2 g Rocephin here in the emergency department. She will be sent home on Levaquin for Pseudomonas coverage as her previous UTI did populate Pseudomonas. She will be given instructions to continue Levaquin and given a course of oxycodone to accompany her 25 mcg fentanyl patches at her assisted living facility. She will have the facility arrange follow-up with Dr. Lara as he recommended. - Vital Signs Vital signs: Temp Pulse Resp BP Pulse Ox 98.9 F 81 22 H 144/44 H 100 04/24/20 15:56 04/24/20 15:35 04/24/20 15:35 04/24/20 15:35 04/24/20 15:35 - Laboratory Result Diagrams: 04/24/20 15:48 04/24/20 15:48 Laboratory results interpreted by me: 04/24/20 04/24/20 04/24/20 15:48 15:48 17:21 WBC 16.4 H Hgb 11.7 L Hct 34.9 L RDW 16.1 H Lymph % (Auto) 5.2 L Absolute Neuts (auto) 14.3 H Seg Neutrophils % 87.2 H Sodium 134.7 L Chloride 93 L Carbon Dioxide 32 H BUN 62 H Creatinine 2.05 H Est GFR ( Amer) 28 L Est GFR (MDRD) Non-Af 24 L Glucose 214 H Direct Bilirubin 0.6 H Urine Blood SMALL H Urine Nitrite (Reflex) POSITIVE H Leukocyte Esterase Rfl LARGE H Discharge - Discharge Clinical Impression: Femoral distal fracture Qualifiers: Encounter type: initial encounter Fracture type: closed Fracture morphology: unspecified fracture morphology Laterality: right Qualified Code(s): S72.401A - Unspecified fracture of lower end of right femur, initial encounter for closed fracture UTI (urinary tract infection) Qualifiers: Urinary tract infection type: site unspecified Hematuria presence: without belle turia Qualified Code(s): N39.0 - Urinary tract infection, site not specified UTI (urinary tract infection) due to urinary indwelling Barton catheter Qualifiers: Indwelling urinary catheter type: indwelling urethral catheter Encounter type: initial encounter Qualified Code(s): T83.511A - Infection and inflammatory reaction due to indwelling urethral catheter, initial encounter; N39.0 - Urinary tract infection, site not specified Condition: Stable Disposition: HOME, SELF-CARE Instructions: Urinary Tract Infection ([facility]) Additional Instructions: Please call on Saturday to establish follow-up with the orthopedic doctor, Dr. Lara. Please take the additional pain medications in addition to your fentanyl every 6 hours as needed for breakthrough pain. Please take the Levaquin for the urinary infection and monitor urinary output closely. Please return here or any ER immediately with any new, persistent or worsening symptoms. Prescriptions: Levofloxacin [Levaquin 750 mg Tablet] 750 mg PO DAILY #5 tab Hydrocodone/Acetaminophen [[place] 10-325 mg Tablet] 1 tab PO Q6 PRN #12 tablet PRN Reason: Referrals: KARTHIKEYAN HERNANDEZ MD [Primary Care Provider] - Follow up as needed TACO LARA MD [ACTIVE STAFF] - Follow up as needed
[2020-04-24] MEDS ORDERED: HYDROMORPHONE HCL INJ/PF 2 MG/ML AMPULE IV ONE (16:13)
[2020-04-24 16:22] LABS: ABSOLUTE LYMPHOCYTES (AUTO) 0.9 10^3/uL (0.5-4.7); ABSOLUTE MONOCYTES (AUTO) 1.2 10^3/uL (0.1-1.4); ABSOLUTE NEUT (AUTO) 14.3 10^3/uL (1.7-8.2); BASOPHILS % (AUTO) 0.1 % (0-2); HEMATOCRIT 34.9 % (36.0-47.0); HEMOGLOBIN 11.7 g/dL (12.0-15.5); LYMPHOCYTES % (AUTO) 5.2 % (13-45); MEAN CORPUSCULAR HEMOGLOBIN 30.6 pg (27.0-33.4); MEAN CORPUSCULAR HGB CONC 33.5 g/dL (32.0-36.0); MEAN CORPUSCULAR VOLUME 91 fl (80-97); MONOCYTES % (AUTO) 7.5 % (3-13); PLATELET COUNT 159 10^3/uL (150-450); RED BLOOD COUNT 3.81 10^6/uL (3.72-5.28); RED CELL DISTRIBUTION WIDTH 16.1 % (11.5-14.0); SEGMENTED NEUTROPHILS % (AUTO) 87.2 % (42-78); TOTAL CELLS COUNTED % (AUTO) 100 %; WHITE BLOOD COUNT 16.4 10^3/uL (4.0-10.5)
[2020-04-24 16:28] LABS: ALBUMIN 4.1 g/dL (3.5-5.0); ALKALINE PHOSPHATASE 74 U/L (38-126); ANION GAP 10 (5-19); ASPARTATE AMINO TRANSFERASE 29 U/L (14-36); BILIRUBIN,DIRECT 0.6 mg/dL (0.0-0.4); BILIRUBIN,TOTAL 0.9 mg/dL (0.2-1.3); BLOOD UREA NITROGEN 62 mg/dL (7-20); CALCIUM 9.7 mg/dL (8.4-10.2); CARBON DIOXIDE 32 mmol/L (22-30); CHLORIDE 93 mmol/L (98-107); GLUCOSE 214 mg/dL (75-110); POTASSIUM 4.5 mmol/L (3.6-5.0); TOTAL PROTEIN 7.5 g/dL (6.3-8.2)
[2020-04-24] MEDS ORDERED: NORMAL SALINE 1000 ML 1,000 ML IV ONE (16:39)
[2020-04-24 17:51] LABS: APPEARANCE,URINE SLIGHTLY-CLOUDY; BILIRUBIN,URINE NEGATIVE (NEGATIVE); COLOR,URINE YELLOW; GLUCOSE, URINE NEGATIVE (NEGATIVE); KETONES,URINE NEGATIVE (NEGATIVE); PROTEIN,URINE NEGATIVE (NEGATIVE); UROBILINOGEN,URINE NEGATIVE mg/dL (<2.0)
--- NOTE | 2020-04-24 17:55 | RADIOLOGY REPORT (SQ) ---
EXAM DESCRIPTION: KNEE RIGHT 4 VIEWS IMAGES COMPLETED DATE/TIME: 04/24/2020 5:36 pm REASON FOR STUDY: distal femur fx COMPARISON: None. NUMBER OF VIEWS: Four views. TECHNIQUE: AP, lateral, and both oblique radiographic images acquired of the right knee. LIMITATIONS: None. FINDINGS: MINERALIZATION: Normal. BONES: Right total knee arthroplasty is present. The hardware partially obscures the distal femur, b ut there is medial displacement of the distal femur relative to the femoral prosthesis. No significan t osteophytes. JOINT: No effusion. No chondrocalcinosis. OTHER: No other significant finding. IMPRESSION: Distal femur fracture with medial displacement of the proximal fracture fragment. TECHNICAL DOCUMENTATION: JOB ID: [id number] 2010 [employer]- All Rights Reserved Reading location - IP/workstation name: [email or web address]
--- NOTE | 2020-04-24 17:56 | RADIOLOGY REPORT (SQ) ---
EXAM DESCRIPTION: CT RT LOWER EXTREMITY WITHOUT IMAGES COMPLETED DATE/TIME: 04/24/2020 4:53 pm REASON FOR STUDY: xray R distal femur fx COMPARISON: None. EXAM PARAMETERS: TECHNIQUE:Axial imaging performed through the right knee with reformatted coronal a nd sagittal imaging windowed for bone and soft tissues. Images saved to PACS. 3D IMAGING: Were 3D images as MIP, SSD, or volume rendering performed at the work station? No. All CT scanners at this facility use dose modulation, iterative reconstruction, and/or weight based d osing when appropriate to reduce radiation dose to as low as reasonably achievable (ALARA). [facility]: Dose Right [facility]: SureCare [facility]: Dose Right [facility]: Teradose 4D [facility]: Tapad RADIATION DOSE: CT Rad equipment meets quality standard of care and radiation dose reduction techniqu es were employed. CTDIvol: 4.1 mGy. DLP: 127 mGy-cm. mGy. LIMITATIONS: None. FINDINGS: SOFT TISSUES: No obvious swelling or foreign body. BONES: Severe metal artifact from the patient's total knee arthroplasty limits evaluation. There is a moderately displaced and impacted distal femur fracture with medial displacement of the proximal fr acture fragment relative to the knee joint. MINERALIZATION: Normal. OTHER: No other significant finding. IMPRESSION: Displaced distal femur fracture in the setting of total knee arthroplasty. TECHNICAL DOCUMENTATION: JOB ID: [id number] [facility] [id number]: Final reports with documentation of one or more dose reduction techniques (e.g., Automate d exposure control, adjustment of the mA and/or kV according to patient size, use of iterative recons truction technique) 2010 [employer]- All Rights Reserved Reading location - IP/workstation name: [email or web address]
[2020-04-24] MEDS ORDERED: CEFTRIAXONE INJ 1000 MG VIAL IV ONE (18:04)
[2020-04-24 19:48] VITALS: BP 142/77
== END 2020-04-24 19:48 | disposition home or self-care (01) ==
LOC: ER 15:24
DX: S72.401A Unspecified fracture of lower end of right femur, initial encounter for closed fracture (principal); M25.561 Pain in right knee; W20.8XXA Other cause of strike by thrown, projected or falling object, initial encounter; T83.511A Infection and inflammatory reaction due to indwelling urethral catheter, initial encounter; N39.0 Urinary tract infection, site not specified; Y84.6 Urinary catheterization as the cause of abnormal reaction of the patient, or of later complication, without mention of misadventure at the time of the procedure; J44.9 Chronic obstructive pulmonary disease, unspecified; J96.10 Chronic respiratory failure, unspecified whether with hypoxia or hypercapnia; Z99.81 Dependence on supplemental oxygen; E11.9 Type 2 diabetes mellitus without complications; I25.10 Atherosclerotic heart disease of native coronary artery without angina pectoris; I11.0 Hypertensive heart disease with heart failure; I50.32 Chronic diastolic (congestive) heart failure; Z88.2 Allergy status to sulfonamides; Z91.040 Latex allergy status; Z91.048 Other nonmedicinal substance allergy status; Z88.8 Allergy status to other drugs, medicaments and biological substances
CPT/HCPCS: 99285; 96361; 96375; 96365; 36415; 87086; 85025; 87088; 80053; 81001; 73564; 73700; J1170; J0696; J7030; 87186

== ENCOUNTER 2020-04-26 15:43 | Inpatient (IN) | payer MEDICARE, MEDICAID ==
[2020-04-26] MEDS ORDERED: FLUMAZENIL INJ 0.5 MG/5 ML VIAL ONE (15:46)
[2020-04-26] MEDS ORDERED: NALOXONE HCL INJ/PF 0.4 MG/1 ML SDV ONE (15:50)
[2020-04-26] MEDS ORDERED: FLUMAZENIL INJ 0.5 MG/5 ML VIAL IV ONE (16:06)
[2020-04-26] MEDS ORDERED: BUMETANIDE INJ/PF 1 MG/4 ML SDV IV ONE (16:07)
[2020-04-26] MEDS ORDERED: NALOXONE HCL INJ/PF 0.4 MG/1 ML SDV IV ONE (16:08)
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
[2020-04-26 16:52] LABS: HEMOGLOBIN 10.1 g/dL (12.0-15.5); MEAN CORPUSCULAR HEMOGLOBIN 30.1 pg (27.0-33.4); MEAN CORPUSCULAR HGB CONC 32.7 g/dL (32.0-36.0); MEAN CORPUSCULAR VOLUME 92 fl (80-97); RED BLOOD COUNT 3.37 10^6/uL (3.72-5.28); RED CELL DISTRIBUTION WIDTH 16.2 % (11.5-14.0); WHITE BLOOD COUNT 12.8 10^3/uL (4.0-10.5)
[2020-04-26 16:53] LABS: ALBUMIN 3.7 g/dL (3.5-5.0); ALKALINE PHOSPHATASE 92 U/L (38-126); ANION GAP 15 (5-19); ASPARTATE AMINO TRANSFERASE 27 U/L (14-36); BILIRUBIN,DIRECT 0.5 mg/dL (0.0-0.4); BILIRUBIN,TOTAL 0.6 mg/dL (0.2-1.3); BLOOD UREA NITROGEN 85 mg/dL (7-20); CALCIUM 9.8 mg/dL (8.4-10.2); CARBON DIOXIDE 26 mmol/L (22-30); CHLORIDE 97 mmol/L (98-107); GLUCOSE 238 mg/dL (75-110); TOTAL PROTEIN 7.5 g/dL (6.3-8.2)
[2020-04-26 16:58] LABS: POTASSIUM 6.5 mmol/L (3.6-5.0); PROTHROMBIN TIME 15.4 SEC (11.4-15.4)
[2020-04-26 16:59] LABS: PARTIAL THROMBOPLASTIN TIME 39.6 SEC (23.5-35.8)
[2020-04-26] MEDS ORDERED: SODIUM POLYSTYRENE SULFONATE 15 GM/60 ML PO ONE (16:59)
[2020-04-26] MEDS ORDERED: DEXTROSE 50%-WATER 25 GM/50 ML DISP.SYRIN IV ONE (17:01)
[2020-04-26] MEDS ORDERED: INSULIN REG, HUMAN 100 UNIT/ML 3 ML VIAL (PYX) IV ONE (17:01)
[2020-04-26 17:07] LABS: TROPONIN I 0.035 ng/mL
[2020-04-26 17:15] LABS: ABSOLUTE LYMPHOCYTES# (MANUAL) 0.1 10^3/uL (0.5-4.7); ABSOLUTE MONOCYTES # (MANUAL) 0.6 10^3/uL (0.1-1.4); BAND NEUTROPHILS % (MANUAL) 1 % (3-5); BASOPHILS % (MANUAL) 0 % (0-2); EOSINOPHILS % (MANUAL) 0 % (0-6); LYMPHOCYTES % (MANUAL) 0 % (13-45); MONOCYTES % (MANUAL) 5 % (3-13); SEGMENTED NEUTROPHILS % (MAN) 93 % (42-78); TOTAL CELLS COUNTED 100
[2020-04-26 17:16] LABS: PLATELET CLUMPS PRESENT; PLATELET COMMENT ADEQUATE; PLATELET COUNT 174 10^3/uL (150-450); RBC MORPHOLOGY COMMENT NORMO-CYTIC/CHROMIC
--- NOTE | 2020-04-26 17:24 | RADIOLOGY REPORT (SQ) ---
EXAM DESCRIPTION: CHEST SINGLE VIEW IMAGES COMPLETED DATE/TIME: 04/26/2020 5:06 pm REASON FOR STUDY: sob COMPARISON: 03/27/2020 EXAM PARAMETERS: NUMBER OF VIEWS: One view. TECHNIQUE: Single frontal radiographic view of the chest acquired. RADIATION DOSE: NA LIMITATIONS: None. FINDINGS: LUNGS AND PLEURA: Stable mild interstitial changes in the right mid-lower lung zone proba sophia on a chronic basis. No acute pulmonary consolidation. No pneumothorax or pleural effusion. MEDIASTINUM AND HILAR STRUCTURES: No masses. Contour normal. HEART AND VASCULAR STRUCTURES: Marked cardiomegaly, unchanged finding. Normal vasculature. BONES: The osseous structures are stable in appearance. Chronic changes at the shoulders with absen ce of the right humeral head and marked contour deformity involving the left humeral head. HARDWARE: None in the chest. OTHER: No other significant finding. IMPRESSION: 1. Marked generalized cardiomegaly, unchanged finding since the prior study dated 2019. 2. Chronic mild changes. No acute pulmonary consolidation. TECHNICAL DOCUMENTATION: JOB ID: [id number] 2010 [employer] All Rights Reserved Reading location - IP/workstation name: [email or web address]
[2020-04-26 17:35] LABS: APPEARANCE,URINE SLIGHTLY-CLOUDY; BILIRUBIN,URINE NEGATIVE (NEGATIVE); COLOR,URINE AMBER; GLUCOSE, URINE NEGATIVE (NEGATIVE); KETONES,URINE NEGATIVE (NEGATIVE); LEUKOCYTE ESTERASE,URINE MODERATE (NEGATIVE); NITRITE,URINE NEGATIVE (NEGATIVE); PROTEIN,URINE NEGATIVE (NEGATIVE); URINE SPECIFIC GRAVITY 1.018; UROBILINOGEN,URINE NEGATIVE mg/dL (<2.0)
[2020-04-26 17:38] LABS: ARTERIAL BLOOD BASE EXCESS 0.2 mmol/L; ARTERIAL BLOOD H2CO3 1.77 mmol/L (1.05-1.35); ARTERIAL BLOOD HCO3 27.7 mmol/L (20-24); ARTERIAL BLOOD O2 SATURATION 98.4 % (94-98); ARTERIAL BLOOD PCO2 58.9 mmHg (35-45); ARTERIAL BLOOD PH 7.29 (7.35-7.45); ARTERIAL BLOOD PO2 135.7 mmHg (80-100); ARTERIAL BLOOD TOTAL CO2 29.6 mmol/L (21-25)
[2020-04-26 17:39] LABS: ARTERIAL BLOOD FIO2 35%
--- NOTE | 2020-04-26 18:12 | EKG REPORT ---
SEVERITY:- ABNORMAL ECG - SINUS OR ECTOPIC ATRIAL RHYTHM NONSPECIFIC IVCD WITH LAD LEFT VENTRICULAR HYPERTROPHY FIRST DEGREE AVB : Confirmed by: Inocencio Aguilar MD 26-Apr-2020 18:11:29
[2020-04-26] MEDS ORDERED: MAGNESIUM HYDROXIDE SUSP 30 ML UDCUP PO PRN (18:38)
[2020-04-26] MEDS ORDERED: IPRATROPIUM/ALBUTEROL 0.5-2.5 MG/3 ML AMPUL NEB PRN (18:38)
--- NOTE | 2020-04-26 18:53 | PDOC H&P ---
History of Present Illness Admission Date/PCP: KARTHIKEYAN HERNANDEZ MD History of Present Illness: PORSHA WALDRON is a 74 year old female Patient presents emergency room apparently with difficulty breathing. She was found to be hypoxic on initial presentation. She was given 5 mg of Versed just prior to arrival and it appears patient became nonresponsive. She was bagged by the nursing staff and she also received Romazicon as well as Narcan as she has a fentanyl patch that was removed just prior to arrival. It appears she did not work-up briefly and she was talkative however by the time I saw her patient was lethargic again and hardly arousable. She had green thick phlegm on presenta tion. She apparently uses BiPAP nocturnally. Please note that this information is obtained solely from the chart as patient is unable to provide any information due to her lethargy. She had a recent fracture and a distal femoral and a status post total knee osteoplasty. She has a Velcro splint on her right lower extremity. The complaint of a cough with yellow sputum and she is noted to be also with a UTI as well as a leukocytosis patient also has a hyperkalemia with potassium of 6.5 and she has an acute kidney injury with a creatinine of 3.16 up from 2.05 just 48 hours ago BUN is 85 up from 60 to 48 hours ago Past Medical History Cardiac Medical History: Reports: Atrial Fibrillation, Congestive Heart Failure - Diastolic dysfunction, Coronary Artery Disease, DVT, Myocardial Infarction, Hyperlipidema, Hypertension - essential, Pulmonary Embolism, Heart Murmur Denies: Peripheral Vascular Disease Pulmonary Medical History: Reports: Asthma, Bronchitis, Chronic Obstructive Pulmonary Disease (COPD), Pneumonia - Recurrent MRSA pneumonia., Respiratory Failure - Chronic, Sleep Apnea - Uses C Pap Denies: Tuberculosis Neurological Medical History: Denies: Seizures Endocrine Medical History: Reports: Diabetes Mellitus Type 2 Denies: Diabetes Mellitus Type 1, Hyperthyroidism, Hypothyroidism GI Medical History: Reports: Gastroesophageal Reflux Disease, Hiatal Hernia Denies: Cirrhosis, Crohn's Disease, Hepatitis, Ulcerative Colitis Musculoskeltal Medical History: Reports: Arthritis, Fibromyalgia, Gout Skin Medical History: Denies: Eczema, Psoriasis Psychiatric Medical History: Reports: Dementia, Depression Hematology: Reports: Anemia Denies: Bleeding Tendencies Infectious Medical History: Reports: Clostridium Difficile, Methicillin- Resistant Staph Aureus Past Surgical History Past Surgical History: Reports: Appendectomy, Cholecystectomy, Hysterectomy, Orthopedic Surgery - Multiple left hip procedures, 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 Social History Information Source: [facility] Records Lives with: [facility] Smoking Status: Unknown if Ever Smoked Electronic Cigarette use?: No Frequency of Alcohol Use: None Hx Recreational Drug Use: No Drugs: None Hx Prescription Drug Abuse: No - Advance Directive Resuscitation Status: Do Not Resuscitate - And does have a yellow DNR form with her papers Family History Family History: Arthritis, CAD, CVA, DM, Hyperlipidemia, Hypertension Parental Family History Reviewed: No Children Family History Reviewed: No Sibling(s) Family History Reviewed.: No - Able to obtain information due to patient's mental status Medication/Allergy Home Medications: Acetylcysteine [Mucomist 10% Neb 400 mg/4 mL Vial] 4 ml IH Q6 03/27/20 Allopurinol [Zyloprim 100 mg Tablet] 200 mg PO DAILY 03/27/20 Baclofen [Baclofen 10 mg Tablet] 10 mg PO TID 03/27/20 Budesonide [Pulmicort Neb 0.25 mg/2 ml Ampul] 0.25 mg NEB RTBID 03/27/20 Diltiazem HCl [Cardizem 30 mg Tablet] 30 mg PO Q8 03/27/20 Docusate Sodium [Colace 100 mg Capsule] 100 mg PO QHS 03/27/20 Duloxetine HCl [Cymbalta] 30 mg PO DAILY 03/27/20 Fluticasone Propionate [Flonase Nasal Carmel 50 Mcg/[place]el 16 gm] 2 spray NASL Q12 03/27/20 Fluticasone/Salmeterol [Advair 500-50 Diskus 14 Dose/Diskus] 1 puff IH Q12 03/27/20 Furosemide [Lasix 80 mg Tablet] 80 mg PO DAILY 03/27/20 Insulin Aspart [Novolog Insulin (Aspart) 100 unit/mL] 0 unit SUBCUT .SLD SCALE 03/27/20 Insulin Detemir [Levemir Insulin 100 units/mL Insulin Pen] 32 unit SUBCUT QHS 03/27/20 Ipratropium/Albuterol Sulfate [Duoneb 3 ml Ampul] 3 ml NEB RTQ4HP PRN 03/27/20 Magnesium Oxide [Magnesium] 400 mg PO DAILY 03/27/20 Melatonin 10 mg PO QHS 03/27/20 Metolazone [Zaroxolyn 5 mg Tablet] 5 mg PO DAILY 03/27/20 Metoprolol Tartrate [Lopressor 25 mg Tablet] 25 mg PO Q12 03/27/20 Multivitamin [Multiple Vitamins] 1 tab PO DAILY 03/27/20 Nitroglycerin [Nitrostat 0.4 mg (1/150 Gr) Tabs 25/Bottle] 1 tab SL Q5MP PRN 03/27/20 Nystatin [Mycostatin 949739 Unit/1 ml Susp 60 ml Btl] 10 ml PO Q6 03/27/20 Olopatadine HCl [Pataday] 1 drop OU DAILY 03/27/20 Omeprazole Magnesium [Prilosec Otc] 40 mg PO Q6AM 03/27/20 Polymyxin B Sulf/Trimethoprim [Polytrim Eye Drops] 1 drop OU Q6 03/27/20 Polyvinyl Alcohol [Liquitears 1.4% Ophth Soln 15 ml] 1 drop OU Q6 03/27/20 Potassium Chloride [Klor-Con] 20 meq PO BID 03/27/20 Prednisone [Deltasone 20 mg Tablet] 20 mg PO DAILY 03/27/20 Pregabalin [Lyrica 50 mg Capsule] 75 mg PO QHS 03/27/20 Ranolazine [Ranexa 500 mg Tab.sr] 500 mg PO Q12 03/27/20 Roflumilast [Daliresp] 500 mcg PO DAILY 03/27/20 Simethicone [Gas Relief] 80 mg PO Q6 03/27/20 Umeclidinium [place] [Incruse Ellipta] 1 puff IH DAILY 03/27/20 Witchava Alicia [Preparation H] 1 each TP QHS 03/27/20 Levofloxacin [Levaquin 750 mg Tablet] 750 mg PO DAILY #5 tab 04/24/20 Acetaminophen [Tylenol] 650 mg PO Q4HP PRN 04/26/20 Azithromycin [Zithromax 250 mg Tablet] 250 mg PO DAILY 04/26/20 Bupropion HCl [Wellbutrin 75 mg Tablet] 75 g PO DAILY 04/26/20 Buspirone HCl 5 mg PO Q12 04/26/20 Cetirizine HCl [Zyrtec 10 mg Tablet] 10 mg PO DAILY 04/26/20 Diclofenac Sodium [Voltaren Arthritis Pain] 1 gr TOP QID 04/26/20 Fentanyl [Duragesic 25 mcg/hr Transdermal Patch] 25 mcg TOP Q3DAYS 04/26/20 Hydrocodone/Acetaminophen [Geff 5-325 Tablet] 1 tab PO DAILY 04/26/20 Lidocaine HCl [Xylocaine 2% Jelly 5 ml Tube] 1 applic TOP Q12 04/26/20 Loperamide HCl [Imodium A-D] 2 mg PO Q4HP PRN 04/26/20 Promethazine HCl [Phenergan 25 mg Tablet] 25 mg PO Q6HP PRN 04/26/20 Allergies/Adverse Reactions: Sulfa (Sulfonamide Antibiotics) Allergy (Intermediate, Verified 03/27/20 21:15) latex Allergy (Unknown, Verified 03/27/20 21:15) adhesive tape Allergy (Verified 03/27/20 21:15) atorvastatin calcium [From Lipitor] Allergy (Verified 03/27/20 21:15) celecoxib [From Celebrex] Allergy (Verified 03/27/20 21:15) Review of Systems ROS unobtainable: Due to mental status Physical Exam Vital Signs: Temp Pulse Resp BP Pulse Ox 99.4 F 14 122/60 99 04/26/20 18:01 04/26/20 18:01 04/26/20 18:01 04/26/20 18:01 Intake & Output 04/25/20 04/26/20 04/27/20 06:59 06:59 06:59 Weight 99.2 kg General appearance: PRESENT: no acute distress, morbidly obese, well-nourished, other - Lethargic and barely arousable on BiPAP Head exam: PRESENT: atraumatic, normocephalic Eye exam: PRESENT: conjunctiva pink, EOMI, PERRLA. ABSENT: scleral icterus Ear exam: PRESENT: normal external ear exam Mouth exam: PRESENT: tongue midline Neck exam: ABSENT: carotid bruit, JVD, lymphadenopathy, thyromegaly Respiratory exam: PRESENT: clear to auscultation elia, unlabored. ABSENT: rales, rhonchi, wheezes Cardiovascular exam: PRESENT: RRR, +S1, +S2. ABSENT: diastolic murmur, rubs, systolic murmur Pulses: PRESENT: normal dorsalis pedis pul Vascular exam: PRESENT: normal capillary refill GI/Abdominal exam: PRESENT: normal bowel sounds, soft. ABSENT: distended, guarding, mass, organolmegaly, rebound, tenderness Rectal exam: PRESENT: deferred Extremities exam: PRESENT: full ROM, other - Velcro splint on right lower extremity. ABSENT: calf tenderness, clubbing, pedal edema Neurological exam: PRESENT: altered. ABSENT: motor sensory deficit Psychiatric exam: ABSENT: homicidal ideation, suicidal ideation Skin exam: PRESENT: dry, warm, other - Scattered ecchymoses and contusions. ABSENT: cyanosis, rash Results Laboratory Results: 04/26/20 16:05 04/26/20 16:05 04/26/20 04/26/20 04/26/20 16:05 16:05 17:10 WBC 12.8 H RBC 3.37 L Hgb 10.1 L Hct 31.0 L MCV 92 MCH 30.1 MCHC 32.7 RDW 16.2 H Plt Count 174 Seg Neutrophils % Not Reportable Carbonic Acid 1.77 H HCO3/H2CO3 Ratio 15:1 ABG pH 7.29 L ABG pCO2 58.9 H ABG pO2 135.7 H ABG HCO3 27.7 H ABG O2 Saturation 98.4 H ABG Base Excess 0.2 FiO2 35% Sodium 137.8 Potassium 6.5 H* Chloride 97 L Carbon Dioxide 26 Anion Gap 15 BUN 85 H Creatinine 3.16 H Est GFR ( Amer) 17 L Glucose 238 H Calcium 9.8 Total Bilirubin 0.6 AST 27 Alkaline Phosphatase 92 Total Protein 7.5 Albumin 3.7 Urine Color Urine Appearance Urine pH Ur Specific [place] Urine Protein Urine Glucose (UA) Urine Ketones Urine Blood Urine Nitrite Ur Leukocyte Esterase Urine WBC (Auto) Urine RBC (Auto) 04/26/20 17:10 WBC RBC Hgb Hct MCV MCH MCHC RDW Plt Count Seg Neutrophils % Carbonic Acid HCO3/H2CO3 Ratio ABG pH ABG pCO2 ABG pO2 ABG HCO3 ABG O2 Saturation ABG Base Excess FiO2 Sodium Potassium Chloride Carbon Dioxide Anion Gap BUN Creatinine Est GFR ( Amer) Glucose Calcium Total Bilirubin AST Alkaline Phosphatase Total Protein Albumin Urine Color GOD[place] Urine Appearance SLIGHTLY-CLOUDY Urine pH 5.0 Ur Specific [place] 1.018 Urine Protein NEGATIVE Urine Glucose (UA) NEGATIVE Urine Ketones NEGATIVE Urine Blood NEGATIVE Urine Nitrite NEGATIVE Ur Leukocyte Esterase MODERATE H Urine WBC (Auto) 30 Urine RBC (Auto) 8 04/26/20 16:05 Troponin I 0.035 NT-Pro-B Natriuret Pep 857 H Impressions: Chest X-Ray 04/26/20 16:12 IMPRESSION: 1. Marked generalized cardiomegaly, unchanged finding since the prior study dated 03/27/2020. 2. Chronic mild changes. No acute pulmonary consolidation. Assessment and Plan - Diagnosis (1) Femur fracture, right Qualifiers: Encounter type: subsequent encounter Femur location: unspecified portion of femur Fracture type: closed Fracture morphology: unspecified fracture morphology Fracture healing: with routine healing Qualified Code(s): S72.91XD - Unspecified fracture of right femur, subsequent encounter for closed fracture with routine healing Is this a current diagnosis for this admission?: Yes (2) Hyperkalemia Is this a current diagnosis for this admission?: Yes Plan: She was treated in the emergency room. We will recheck and treat as appropriate (3) Pneumonia Qualifiers: Pneumonia type: due to unspecified organism Laterality: unspecified laterality Lung location: unspecified part of lung Qualified Code(s): J18.9 - Pneumonia, unspecified organism Is this a current diagnosis for this admission?: Yes Plan: Unclear if there is any indication for Covid testing at this time. Patient was seen in the ED yesterday. There is no history of Covid pneumonitis. Her white count was actually 16,000 on April 24 and is down to 12.8 today (4) Morbid obesity with BMI of 40.0-44.9, adult Is this a current diagnosis for this admission?: Yes (5) ARF (acute renal failure) Qualifiers: Is this a current diagnosis for this admission?: Yes Plan: Kidney function is worse and in fact she is in acute renal failure superimposed on chronic kidney disease. Hyperkalemia is likely also related to days. Will gently hydrate and recheck labs in a.m. (6) Acute and chronic respiratory failure Qualifiers: Is this a current diagnosis for this admission?: Yes Plan: Patient will be placed on BiPAP. Should be monitored in IMCU. Her breathing and blood gas appears to be stable at this time however patient is still obtunded likely from over medications. She did receive Romazicon and Versed and she apparently woke up although at the time of my exam she was barely arousable. - Time Time Spent with patient: 35 or more minutes Medications reviewed and adjusted accordingly: Yes Anticipated Discharge Disposition: Residential Facility Anticipated Discharge Timeframe: within 72 hours
[2020-04-26 21:04] LABS: ANION GAP 16 (5-19); BLOOD UREA NITROGEN 84 mg/dL (7-20); CALCIUM 9.2 mg/dL (8.4-10.2); CARBON DIOXIDE 26 mmol/L (22-30); CHLORIDE 97 mmol/L (98-107); GLUCOSE 193 mg/dL (75-110)
[2020-04-26 21:07] LABS: POTASSIUM 4.8 mmol/L (3.6-5.0)
[2020-04-26 23:32] LABS: ANION GAP 13 (5-19); BLOOD UREA NITROGEN 85 mg/dL (7-20); CALCIUM 9.3 mg/dL (8.4-10.2); CARBON DIOXIDE 29 mmol/L (22-30); CHLORIDE 97 mmol/L (98-107); GLUCOSE 158 mg/dL (75-110); POTASSIUM 4.5 mmol/L (3.6-5.0)
[2020-04-27] MEDS: ACETAMINOPHEN 325 MG TABLET PO PRN ×4 (01:19→15:50)
[2020-04-27 06:48] LABS: ARTERIAL BLOOD BASE EXCESS 1.1 mmol/L; ARTERIAL BLOOD H2CO3 1.56 mmol/L (1.05-1.35); ARTERIAL BLOOD HCO3 27.3 mmol/L (20-24); ARTERIAL BLOOD O2 SATURATION 97.7 % (94-98); ARTERIAL BLOOD PCO2 51.9 mmHg (35-45); ARTERIAL BLOOD PH 7.34 (7.35-7.45); ARTERIAL BLOOD PO2 110.2 mmHg (80-100); ARTERIAL BLOOD TOTAL CO2 28.9 mmol/L (21-25)
[2020-04-27 06:49] LABS: ARTERIAL BLOOD FIO2 30%
[2020-04-27 07:33] LABS: ABSOLUTE LYMPHOCYTES (AUTO) 0.8 10^3/uL (0.5-4.7); ABSOLUTE MONOCYTES (AUTO) 0.7 10^3/uL (0.1-1.4); ABSOLUTE NEUT (AUTO) 8.6 10^3/uL (1.7-8.2); BASOPHILS % (AUTO) 0.1 % (0-2); EOSINOPHILS % (AUTO) 0.1 % (0-6); HEMATOCRIT 26.6 % (36.0-47.0); HEMOGLOBIN 8.9 g/dL (12.0-15.5); LYMPHOCYTES % (AUTO) 7.6 % (13-45); MEAN CORPUSCULAR HEMOGLOBIN 30.5 pg (27.0-33.4); MEAN CORPUSCULAR HGB CONC 33.6 g/dL (32.0-36.0); MEAN CORPUSCULAR VOLUME 91 fl (80-97); PLATELET COUNT 168 10^3/uL (150-450); RED BLOOD COUNT 2.93 10^6/uL (3.72-5.28); SEGMENTED NEUTROPHILS % (AUTO) 85.2 % (42-78); TOTAL CELLS COUNTED % (AUTO) 100 %; WHITE BLOOD COUNT 10.1 10^3/uL (4.0-10.5)
[2020-04-27 07:56] LABS: ANION GAP 14 (5-19); BLOOD UREA NITROGEN 87 mg/dL (7-20); CALCIUM 8.8 mg/dL (8.4-10.2); CARBON DIOXIDE 26 mmol/L (22-30); CHLORIDE 98 mmol/L (98-107); GLUCOSE 109 mg/dL (75-110); POTASSIUM 3.8 mmol/L (3.6-5.0)
[2020-04-27] MEDS ORDERED: ENOXAPARIN SODIUM INJ 40 MG/0.4 ML DISP.SYRIN SUBCUT SCH (10:00)
[2020-04-27] MEDS: PANTOPRAZOLE SODIUM 40 MG VIAL IV SCH (10:07)
[2020-04-27] MEDS: CEFTRIAXONE 2 GM/D5W RTU 2 GM/50 ML RTUPB IV SCH (10:07)
[2020-04-27] MEDS: ENOXAPARIN SODIUM INJ 30 MG/0.3 ML DISP.SYRIN SUBCUT SCH (10:08)
[2020-04-27] MEDS: NORMAL SALINE 1000 ML 1,000 ML IV PRN ×2 (10:08→20:45)
[2020-04-27] MEDS ORDERED: NITROGLYCERIN 0.4 MG/TAB 25 TAB/BOTTLE SL PRN (16:43)
--- NOTE | 2020-04-27 16:52 | PDOC PROGRESS REPORT ---
Subjective Progress Note for:: 04/27/20 Subjective:: Awake and alert today. She was able to converse and stated a week. She is still on the BiPAP. She is complaining of pain and asking for pain medications Reason For Visit: ACUTE HYPOXIC RESPIRATORY FAILURE Physical Exam Vital Signs: Temp Pulse Resp BP Pulse Ox 98.0 F 137 H 21 H 127/52 H 96 04/27/20 16:07 04/27/20 16:07 04/27/20 16:07 04/27/20 16:07 04/27/20 16:07 Intake & Output 04/26/20 04/27/20 04/28/20 06:59 06:59 06:59 Intake Total 50 Output Total 850 Balance -850 50 Weight 86.9 kg General appearance: PRESENT: no acute distress, obese, well-developed Head exam: PRESENT: atraumatic, normocephalic Eye exam: PRESENT: conjunctiva pink, EOMI, PERRLA. ABSENT: scleral icterus Ear exam: PRESENT: normal external ear exam Mouth exam: PRESENT: moist, tongue midline Neck exam: ABSENT: carotid bruit, JVD, lymphadenopathy, thyromegaly Respiratory exam: PRESENT: decreased breath sounds, other - on BIPAP. ABSENT: rales, rhonchi, wheezes Cardiovascular exam: PRESENT: RRR, +S1, +S2. ABSENT: diastolic murmur, rubs, systolic murmur Pulses: PRESENT: normal dorsalis pedis pul Vascular exam: PRESENT: normal capillary refill GI/Abdominal exam: PRESENT: normal bowel sounds, soft. ABSENT: distended, guarding, mass, organolmegaly, rebound, tenderness Rectal exam: PRESENT: deferred Extremities exam: PRESENT: full ROM, other - RLE in splint. ABSENT: calf tenderness, clubbing, pedal edema Neurological exam: PRESENT: alert, awake, oriented to person, oriented to place, oriented to time, oriented to situation, CN II-XII grossly intact. ABSENT: motor sensory deficit Psychiatric exam: PRESENT: appropriate affect, normal mood. ABSENT: homicidal ideation, suicidal ideation Skin exam: PRESENT: rash, warm, other - Sporadic emesis and skin contusions. ABSENT: cyanosis Results Laboratory Results: 04/27/20 06:40 04/27/20 06:40 04/26/20 04/26/20 04/26/20 16:05 16:05 17:10 WBC 12.8 H RBC 3.37 L Hgb 10.1 L Hct 31.0 L MCV 92 MCH 30.1 MCHC 32.7 RDW 16.2 H Plt Count 174 Seg Neutrophils % Not Reportable Carbonic Acid 1.77 H HCO3/H2CO3 Ratio 15:1 ABG pH 7.29 L ABG pCO2 58.9 H ABG pO2 135.7 H ABG HCO3 27.7 H ABG O2 Saturation 98.4 H ABG Base Excess 0.2 FiO2 35% Sodium 137.8 Potassium 6.5 H* Chloride 97 L Carbon Dioxide 26 Anion Gap 15 BUN 85 H Creatinine 3.16 H Est GFR ( Amer) 17 L Glucose 238 H Calcium 9.8 Total Bilirubin 0.6 AST 27 Alkaline Phosphatase 92 Total Protein 7.5 Albumin 3.7 Urine Color Urine Appearance Urine pH Ur Specific [place] Urine Protein Urine Glucose (UA) Urine Ketones Urine Blood Urine Nitrite Ur Leukocyte Esterase Urine WBC (Auto) Urine RBC (Auto) 04/26/20 04/26/20 04/26/20 17:10 20:17 22:57 WBC RBC Hgb Hct MCV MCH MCHC RDW Plt Count Seg Neutrophils % Carbonic Acid HCO3/H2CO3 Ratio ABG pH ABG pCO2 ABG pO2 ABG HCO3 ABG O2 Saturation ABG Base Excess FiO2 Sodium 139.1 138.5 Potassium 4.8 D 4.5 Chloride 97 L 97 L Carbon Dioxide 26 29 Anion Gap 16 13 BUN 84 H 85 H Creatinine 3.10 H 3.25 H Est GFR ( Amer) 18 L 17 L Glucose 193 H 158 H Calcium 9.2 9.3 Total Bilirubin AST Alkaline Phosphatase Total Protein Albumin Urine Color GODFREY Urine Appearance SLIGHTLY-CLOUDY Urine pH 5.0 Ur Specific [place] 1.018 Urine Protein NEGATIVE Urine Glucose (UA) NEGATIVE Urine Ketones NEGATIVE Urine Blood NEGATIVE Urine Nitrite NEGATIVE Ur Leukocyte Esterase MODERATE H Urine WBC (Auto) 30 Urine RBC (Auto) 8 04/27/20 04/27/20 04/27/20 06:25 06:40 06:40 WBC 10.1 RBC 2.93 L Hgb 8.9 L Hct 26.6 L MCV 91 MCH 30.5 MCHC 33.6 RDW 16.0 H Plt Count 168 Seg Neutrophils % 85.2 H Carbonic Acid 1.56 H HCO3/H2CO3 Ratio 17:1 ABG pH 7.34 L ABG pCO2 51.9 H ABG pO2 110.2 H ABG HCO3 27.3 H ABG O2 Saturation 97.7 ABG Base Excess 1.1 FiO2 30% Sodium 138.0 Potassium 3.8 Chloride 98 Carbon Dioxide 26 Anion Gap 14 BUN 87 H Creatinine 2.48 H Est GFR ( Amer) 23 L Glucose 109 Calcium 8.8 Total Bilirubin AST Alkaline Phosphatase Total Protein Albumin Urine Color Urine Appearance Urine pH Ur Specific [place] Urine Protein Urine Glucose (UA) Urine Ketones Urine Blood Urine Nitrite Ur Leukocyte Esterase Urine WBC (Auto) Urine RBC (Auto) 04/26/20 16:05 Troponin I 0.035 NT-Pro-B Natriuret Pep 857 H Impressions: Chest X-Ray 04/26/20 16:12 IMPRESSION: 1. Marked generalized cardiomegaly, unchanged finding since the prior study dated 03/27/2020. 2. Chronic mild changes. No acute pulmonary consolidation. Assessment and Plan - Diagnosis (1) Femur fracture, right Qualifiers: Encounter type: subsequent encounter Femur location: unspecified portion of femur Fracture type: closed Fracture morphology: unspecified fracture morphology Fracture healing: with routine healing Qualified Code(s): S72.91XD - Unspecified fracture of right femur, subsequent encounter for closed fracture with routine healing Is this a current diagnosis for this admission?: Yes (2) Hyperkalemia Is this a current diagnosis for this admission?: Yes Plan: Secondary to acute kidney injury, resolved (3) Pneumonia Qualifiers: Pneumonia type: due to unspecified organism Laterality: unspecified laterality Lung location: unspecified part of lung Qualified Code(s): J18.9 - Pneumonia, unspecified organism Is this a current diagnosis for this admission?: Yes Plan: Unclear if there is any indication for Covid testing at this time. Patient was seen in the ED yesterday. There is no history of Covid pneumonitis. Her white count was actually 16,000 on April 24 and is down to 12.8 today 04/27 continue with empiric antibiotics. (4) Morbid obesity with BMI of 40.0-44.9, adult Is this a current diagnosis for this admission?: Yes (5) ARF (acute renal failure) Qualifiers: Is this a current diagnosis for this admission?: Yes Plan: Kidney function is worse and in fact she is in acute renal failure superimposed on chronic kidney disease. Hyperkalemia is likely also related to days. Will gently hydrate and recheck labs in a.m. 04/27 Kidney function improved from 3.25 and 85 to 2.48 and 87. We will continue cautious hydration and hold and adjust diuretics as indicated (6) Acute and chronic respiratory failure Qualifiers: Is this a current diagnosis for this admission?: Yes Plan: Patient will be placed on BiPAP. Should be monitored in IMCU. Her breathing and blood gas appears to be stable at this time however patient is still obtunded likely from over medications. She did receive Romazicon and Versed and she apparently woke up although at the time of my exam she was barely arousable. 04/27 hypercapnia is improving. Patient is using her BiPAP. I expect further improvement as the days goes on - Time Time Spent with patient: 15-24 minutes Medications reviewed and adjusted accordingly: Yes Anticipated Discharge Disposition: Nursing Home Facility Anticipated Discharge Timeframe: within 72 hours
[2020-04-27] MEDS: METOPROLOL TARTRATE 25 MG TABLET PO SCH (17:56)
[2020-04-27] MEDS: BACLOFEN 10 MG TABLET PO SCH (17:56)
[2020-04-27] MEDS: SIMETHICONE 80 MG TAB.CHEW PO SCH (17:56)
[2020-04-27] MEDS: PREDNISONE 20 MG TABLET PO SCH (17:56)
[2020-04-27] MEDS ORDERED: (PENDING PHARMACY ID) (Nystatin 10 ML) PO SCH (18:00)
[2020-04-27] MEDS ORDERED: DICLOFENAC SODIUM TOP SCH (18:00)
[2020-04-27] MEDS: NYSTATIN 500000 UNIT/5 ML UDCUP PO SCH (18:37)
[2020-04-27] MEDS: IPRATROPIUM/ALBUTEROL 0.5-2.5 MG/3 ML AMPUL NEB PRN (20:33)
[2020-04-27] MEDS: BUDESONIDE NEB 0.25 MG/2 ML AMPUL NEB SCH (20:33)
[2020-04-27] MEDS: ACETYLCYSTEINE 10% NEB 400 MG/4 ML VIAL NEB SCH (20:33)
[2020-04-27] MEDS: MEROPENEM 1 GM in NORMAL SALINE 50 ML IV SCH (21:29)
[2020-04-27] MEDS: LIDOCAINE 2% JELLY 5 ML TUBE TOP SCH (21:29)
[2020-04-27] MEDS: FLUTICASONE NASAL SPRAY 50 MCG/SPRY 120 SPRAY/16 GM NASL SCH (21:30)
[2020-04-27] MEDS: DILTIAZEM HCL 30 MG TABLET PO SCH (21:31)
[2020-04-27] MEDS: POLYMYXIN B SULFATE/TMP OPH SOLN 10 ML OU SCH (21:31)
[2020-04-27] MEDS: PREGABALIN 50 MG CAPSULE PO SCH (21:32)
[2020-04-27] MEDS: DOCUSATE SODIUM 100 MG CAPSULE PO SCH (21:32)
[2020-04-27] MEDS: BUSPIRONE HCL 10 MG TABLET PO SCH (21:32)
[2020-04-27] MEDS: RANOLAZINE 500 MG TAB.SR.12H PO SCH (21:32)
[2020-04-27] MEDS: POLYVINYL ALCOHOL 1.4% OPH SOLN 15 ML OU SCH ×2 (21:34→22:17)
[2020-04-27] MEDS ORDERED: [UNRECOGNIZED DRUG - OTHER] SUBCUT SCH (22:00)
[2020-04-27] MEDS ORDERED: INSULIN DETEMIR 32 UNIT SUBCUT SCH (22:00)
[2020-04-27] MEDS ORDERED: (PENDING PHARMACY ID) (Fluticasone/Salmeterol 1 PUFF) IH SCH (22:00)
[2020-04-27] MEDS: INSULIN GLARGINE,HUM.REC.ANLOG 1,000 UNIT/10 ML VIAL SUBCUT SCH (22:04)
[2020-04-28] MEDS: SIMETHICONE 80 MG TAB.CHEW PO SCH ×4 (00:55→17:53)
[2020-04-28] MEDS: NYSTATIN 500000 UNIT/5 ML UDCUP PO SCH ×4 (00:55→17:53)
[2020-04-28] MEDS: POLYMYXIN B SULFATE/TMP OPH SOLN 10 ML OU SCH ×4 (00:55→17:56)
[2020-04-28] MEDS: IPRATROPIUM/ALBUTEROL 0.5-2.5 MG/3 ML AMPUL NEB PRN ×3 (02:06→14:31)
[2020-04-28] MEDS: ACETYLCYSTEINE 10% NEB 400 MG/4 ML VIAL NEB SCH ×4 (02:06→20:50)
[2020-04-28] MEDS: ACETAMINOPHEN 325 MG TABLET PO PRN (03:25)
[2020-04-28] MEDS: HYDROCODONE/ACETAMINOPHEN 5-325 MG TABLET PO SCH ×2 (04:35→11:04)
[2020-04-28] MEDS: METOPROLOL TARTRATE 25 MG TABLET PO SCH ×2 (05:51→17:54)
[2020-04-28] MEDS: DILTIAZEM HCL 30 MG TABLET PO SCH ×3 (05:51→21:40)
[2020-04-28 06:25] LABS: ABSOLUTE LYMPHOCYTES (AUTO) 0.4 10^3/uL (0.5-4.7); ABSOLUTE MONOCYTES (AUTO) 0.5 10^3/uL (0.1-1.4); ABSOLUTE NEUT (AUTO) 6.1 10^3/uL (1.7-8.2); HEMATOCRIT 27.9 % (36.0-47.0); HEMOGLOBIN 9.5 g/dL (12.0-15.5); LYMPHOCYTES % (AUTO) 6.2 % (13-45); MEAN CORPUSCULAR HEMOGLOBIN 30.9 pg (27.0-33.4); MEAN CORPUSCULAR HGB CONC 34.2 g/dL (32.0-36.0); MEAN CORPUSCULAR VOLUME 90 fl (80-97); MONOCYTES % (AUTO) 7.2 % (3-13); PLATELET COUNT 174 10^3/uL (150-450); RED BLOOD COUNT 3.08 10^6/uL (3.72-5.28); RED CELL DISTRIBUTION WIDTH 15.9 % (11.5-14.0); SEGMENTED NEUTROPHILS % (AUTO) 86.6 % (42-78); TOTAL CELLS COUNTED % (AUTO) 100 %
[2020-04-28] MEDS: NORMAL SALINE 1000 ML 1,000 ML IV PRN (06:44)
[2020-04-28 07:30] LABS: ANION GAP 12 (5-19); CALCIUM 9.2 mg/dL (8.4-10.2); CARBON DIOXIDE 28 mmol/L (22-30); CHLORIDE 102 mmol/L (98-107); GLUCOSE 180 mg/dL (75-110); POTASSIUM 3.5 mmol/L (3.6-5.0)
[2020-04-28 07:32] LABS: BLOOD UREA NITROGEN 66 mg/dL (7-20)
[2020-04-28] MEDS: BUDESONIDE NEB 0.25 MG/2 ML AMPUL NEB SCH ×2 (08:07→20:50)
[2020-04-28] MEDS ORDERED: (PENDING PHARMACY ID) (Magnesium Oxide [Magnesium] 400 MG) PO SCH (10:00)
[2020-04-28] MEDS ORDERED: FUROSEMIDE 80 MG TABLET PO SCH (10:00)
[2020-04-28] MEDS ORDERED: (PENDING PHARMACY ID) (Roflumilast [Daliresp] 500 MCG) PO SCH (10:00)
[2020-04-28] MEDS: AZITHROMYCIN 250 MG TABLET PO SCH (11:03)
[2020-04-28] MEDS: DULOXETINE HCL 30 MG CAPSULE.DR PO SCH (11:03)
[2020-04-28] MEDS: PANTOPRAZOLE SODIUM 40 MG VIAL IV SCH (11:03)
[2020-04-28] MEDS: CEFTRIAXONE 2 GM/D5W RTU 2 GM/50 ML RTUPB IV SCH (11:03)
[2020-04-28] MEDS: BUPROPION HCL 75 MG TABLET PO SCH (11:04)
[2020-04-28] MEDS: CETIRIZINE 10 MG TABLET PO SCH (11:04)
[2020-04-28] MEDS: BUSPIRONE HCL 10 MG TABLET PO SCH ×2 (11:04→21:35)
[2020-04-28] MEDS: ALLOPURINOL 100 MG TABLET PO SCH (11:04)
[2020-04-28] MEDS: MULTIVITAMIN TABLET PO SCH (11:05)
[2020-04-28] MEDS: RANOLAZINE 500 MG TAB.SR.12H PO SCH ×2 (11:05→21:35)
[2020-04-28] MEDS: BACLOFEN 10 MG TABLET PO SCH ×3 (11:05→17:53)
[2020-04-28] MEDS: FUROSEMIDE 40 MG TABLET PO SCH (11:05)
[2020-04-28] MEDS: MAGNESIUM OXIDE 400 MG TABLET PO SCH (11:05)
[2020-04-28] MEDS: PREDNISONE 20 MG TABLET PO SCH (11:05)
[2020-04-28] MEDS: LIDOCAINE 2% JELLY 5 ML TUBE TOP SCH ×2 (11:06→21:54)
[2020-04-28] MEDS: POLYVINYL ALCOHOL 1.4% OPH SOLN 15 ML OU SCH ×4 (11:08→21:50)
[2020-04-28] MEDS: FLUTICASONE NASAL SPRAY 50 MCG/SPRY 120 SPRAY/16 GM NASL SCH ×2 (11:08→21:53)
[2020-04-28] MEDS: OLOPATADINE HCL 0.1% OPH SOLN 5 ML OU SCH (11:09)
[2020-04-28] MEDS: UMECLIDINIUM BROMIDE 62.5 MCG/DOSE IH SCH (11:10)
[2020-04-28] MEDS: FLUTICASONE/VILANTEROL 200-25 MCG/DOSE IH SCH (11:10)
[2020-04-28] MEDS: ENOXAPARIN SODIUM INJ 30 MG/0.3 ML DISP.SYRIN SUBCUT SCH (11:13)
[2020-04-28] MEDS: ROFLUMILAST 500 MCG TABLET PO SCH (11:13)
[2020-04-28] MEDS: MEROPENEM 1 GM in NORMAL SALINE 50 ML IV SCH ×2 (11:14→21:55)
[2020-04-28] MEDS ORDERED: GUAIFENESIN/D-METHORPHAN (200-20 MG) SYRUP 10 ML PO PRN (16:46)
--- NOTE | 2020-04-28 16:54 | PDOC PROGRESS REPORT ---
Subjective Progress Note for:: 04/28/20 Subjective:: Awake and alert today. She was able to converse and stated a week. patient continues to improve clinically Reason For Visit: ACUTE HYPOXIC RESPIRATORY FAILURE Physical Exam Vital Signs: Temp Pulse Resp BP Pulse Ox 98.3 F 94 18 123/74 99 04/28/20 11:42 04/28/20 14:34 04/28/20 14:34 04/28/20 11:42 04/28/20 14:34 Intake & Output 04/27/20 04/28/20 04/29/20 06:59 06:59 06:59 Intake Total 2758 260 Output Total 850 2025 575 Balance -850 733 -315 Weight 86.9 kg 90.1 kg General appearance: PRESENT: no acute distress, well-developed, well-nourished Head exam: PRESENT: atraumatic, normocephalic Eye exam: PRESENT: conjunctiva pink, EOMI, PERRLA. ABSENT: scleral icterus Ear exam: PRESENT: normal external ear exam Mouth exam: PRESENT: moist, tongue midline Neck exam: ABSENT: carotid bruit, JVD, lymphadenopathy, thyromegaly Respiratory exam: PRESENT: decreased breath sounds. ABSENT: rales, rhonchi, wheezes Cardiovascular exam: PRESENT: RRR, +S1, +S2. ABSENT: diastolic murmur, rubs, systolic murmur Pulses: PRESENT: normal dorsalis pedis pul Vascular exam: PRESENT: normal capillary refill GI/Abdominal exam: PRESENT: normal bowel sounds, soft. ABSENT: distended, guarding, mass, organolmegaly, rebound, tenderness Rectal exam: PRESENT: deferred Extremities exam: PRESENT: +1 edema, other - RLE splint. ABSENT: calf tenderness, clubbing, pedal edema Neurological exam: PRESENT: alert, awake, oriented to person, oriented to place, oriented to time, oriented to situation, CN II-XII grossly intact. ABSENT: motor sensory deficit Psychiatric exam: PRESENT: appropriate affect, normal mood. ABSENT: homicidal ideation, suicidal ideation Skin exam: PRESENT: dry, intact, warm. ABSENT: cyanosis, rash Results Laboratory Results: 04/28/20 06:06 04/28/20 06:06 04/28/20 04/28/20 06:06 06:06 WBC 7.0 RBC 3.08 L Hgb 9.5 L Hct 27.9 L MCV 90 MCH 30.9 MCHC 34.2 RDW 15.9 H Plt Count 174 Seg Neutrophils % 86.6 H Sodium 141.6 Potassium 3.5 L Chloride 102 Carbon Dioxide 28 Anion Gap 12 BUN 66 H D Creatinine 1.71 H Est GFR ( Amer) 35 L Glucose 180 H Calcium 9.2 04/26/20 16:05 Troponin I 0.035 NT-Pro-B Natriuret Pep 857 H Impressions: Chest X-Ray 04/26/20 16:12 IMPRESSION: 1. Marked generalized cardiomegaly, unchanged finding since the prior study dated 03/27/2020. 2. Chronic mild changes. No acute pulmonary consolidation. Assessment and Plan - Diagnosis (1) Femur fracture, right Qualifiers: Encounter type: subsequent encounter Femur location: unspecified portion of femur Fracture type: closed Fracture morphology: unspecified fracture morphology Fracture healing: with routine healing Qualified Code(s): S72.91XD - Unspecified fracture of right femur, subsequent encounter for closed fracture with routine healing Is this a current diagnosis for this admission?: Yes Plan: Patient had a CT scan done on April 24 which showed a moderately displaced and impacted distal femur fracture with medial displacement of the proximal fracture fragment relative to the knee joint (2) Hyperkalemia Is this a current diagnosis for this admission?: Yes Plan: Resolved (3) Pneumonia Qualifiers: Pneumonia type: due to unspecified organism Laterality: unspecified laterality Lung location: unspecified part of lung Qualified Code(s): J18.9 - Pneumonia, unspecified organism Is this a current diagnosis for this admission?: Yes Plan: Unclear if there is any indication for Covid testing at this time. Patient was seen in the ED yesterday. There is no history of Covid pneumonitis. Her white count was actually 16,000 on April 24 and is down to 12.8 today We will continue with antibiotics empirically (4) Morbid obesity with BMI of 40.0-44.9, adult Is this a current diagnosis for this admission?: Yes (5) ARF (acute renal failure) Qualifiers: Is this a current diagnosis for this admission?: Yes Plan: Kidney function is worse and in fact she is in acute renal failure superimposed on chronic kidney disease. Hyperkalemia is likely also related to days. Will gently hydrate and recheck labs in a.m. 04/28Her kidney function continues to improve with a creatinine down to 1.7 BUN down to 66 from 85 and 3.16. (6) Acute and chronic respiratory failure Qualifiers: Is this a current diagnosis for this admission?: Yes Plan: Patient will be placed on BiPAP. Should be monitored in IMCU. Her breathing and blood gas appears to be stable at this time however patient is still obtunded likely from over medications. She did receive Romazicon and Versed and she apparently woke up although at the time of my exam she was barely arousable. 04/28 respiratory symptoms continue to improve. We will continue with Zithromax and meropenem. Ceftriaxone has been discontinued (7) UTI (urinary tract infection) due to urinary indwelling catheter Qualifiers: Indwelling urinary catheter type: indwelling urethral catheter Encounter type: initial encounter Qualified Code(s): T83.511A - Infection and inflammatory reaction due to indwelling urethral catheter, initial encounter; N39.0 - Urinary tract infection, site not specified Is this a current diagnosis for this admission?: Yes Plan: Patient is growing multiple organisms including ESBL E. coli, VRE as well as Pseudomonas. It appears that she has had recurrent issues with these organisms. She does have an indwelling Barton catheter. I was informed that this was changed within the last 3 days when she came to the hospital. Consulted infectious disease due to the multiple organisms so we will continue with the meropenem for now - Time Time Spent with patient: 25-34 minutes Medications reviewed and adjusted accordingly: Yes Anticipated Discharge Disposition: [facility] Anticipated Discharge Timeframe: within 72 hours
[2020-04-28] MEDS ORDERED: LACTULOSE SYRUP 20 GM/30 ML UDCUP PO PRN (16:55)
[2020-04-28] MEDS: HYDROCODONE/ACETAMINOPHEN 5-325 MG TABLET PO PRN (20:37)
[2020-04-28] MEDS: PREGABALIN 50 MG CAPSULE PO SCH (21:36)
[2020-04-28] MEDS: DOCUSATE SODIUM 100 MG CAPSULE PO SCH (21:45)
[2020-04-28] MEDS: INSULIN GLARGINE,HUM.REC.ANLOG 1,000 UNIT/10 ML VIAL SUBCUT SCH (21:48)
[2020-04-29] MEDS: NORMAL SALINE 1000 ML 1,000 ML IV PRN ×2 (00:49→02:35)
[2020-04-29] MEDS: SIMETHICONE 80 MG TAB.CHEW PO SCH ×4 (00:50→17:31)
[2020-04-29] MEDS: NYSTATIN 500000 UNIT/5 ML UDCUP PO SCH ×4 (00:50→17:32)
[2020-04-29] MEDS: POLYMYXIN B SULFATE/TMP OPH SOLN 10 ML OU SCH ×4 (00:50→17:34)
[2020-04-29] MEDS: ACETAMINOPHEN 325 MG TABLET PO PRN ×2 (00:50→05:59)
[2020-04-29] MEDS: IPRATROPIUM/ALBUTEROL 0.5-2.5 MG/3 ML AMPUL NEB PRN ×3 (02:22→13:53)
[2020-04-29] MEDS: ACETYLCYSTEINE 10% NEB 400 MG/4 ML VIAL NEB SCH ×4 (02:22→19:59)
[2020-04-29] MEDS: HYDROCODONE/ACETAMINOPHEN 5-325 MG TABLET PO PRN ×3 (02:39→17:31)
[2020-04-29] MEDS: PANTOPRAZOLE SODIUM 40 MG TABLET.DR PO SCH (05:52)
[2020-04-29] MEDS: DILTIAZEM HCL 30 MG TABLET PO SCH ×2 (05:53→14:40)
[2020-04-29] MEDS: METOPROLOL TARTRATE 25 MG TABLET PO SCH ×2 (05:53→17:32)
[2020-04-29 06:59] LABS: ABSOLUTE MONOCYTES (AUTO) 0.7 10^3/uL (0.1-1.4); EOSINOPHILS % (AUTO) 0.3 % (0-6); HEMATOCRIT 30.3 % (36.0-47.0); HEMOGLOBIN 10.3 g/dL (12.0-15.5); LYMPHOCYTES % (AUTO) 13.3 % (13-45); MEAN CORPUSCULAR HEMOGLOBIN 30.7 pg (27.0-33.4); MEAN CORPUSCULAR HGB CONC 33.9 g/dL (32.0-36.0); MEAN CORPUSCULAR VOLUME 91 fl (80-97); MONOCYTES % (AUTO) 9.3 % (3-13); PLATELET COUNT 212 10^3/uL (150-450); RED BLOOD COUNT 3.34 10^6/uL (3.72-5.28); RED CELL DISTRIBUTION WIDTH 15.9 % (11.5-14.0); SEGMENTED NEUTROPHILS % (AUTO) 77.1 % (42-78); TOTAL CELLS COUNTED % (AUTO) 100 %; WHITE BLOOD COUNT 7.7 10^3/uL (4.0-10.5)
[2020-04-29 07:25] LABS: ANION GAP 12 (5-19); BLOOD UREA NITROGEN 54 mg/dL (7-20); CALCIUM 9.7 mg/dL (8.4-10.2); CARBON DIOXIDE 32 mmol/L (22-30); CHLORIDE 101 mmol/L (98-107); GLUCOSE 121 mg/dL (75-110); POTASSIUM 3.1 mmol/L (3.6-5.0)
[2020-04-29] MEDS: BUDESONIDE NEB 0.25 MG/2 ML AMPUL NEB SCH ×2 (08:25→19:59)
--- NOTE | 2020-04-29 08:29 | Progress Note ---
Provider Note Provider Note: [facility] Telephone Advice Consultation Chart reviewed, patient not examined. This is a 74-year-old woman with multiple comorbid conditions including atrial fibrillation, depression, CHF, GERD, dementia, gout, arthritis, DM2, living in a SNF who was admitted due to altered mental status and right knee pain. Due to her musculoskeletal pain she is on multiple pain medications and narcotics. She was lethargic and unresponsive. This improved after removing her fentanyl patch and giving narcan. On admission, she was dehydrated, found with an JASPREET. Barton catheter was exchanged in the ED but unclear if before or after the urine cultures were obtained. There were thick purelent repsiratory secretions described by physician on examination. She had marked leukocytosis of 16k on admission, creatinine of 3.16, potassium 6.5, UA with pyuria but again unclear if before or after exchanging the catheter. She started meropenem and azithromycin with adequate response. Mental status has significantly improved, JASPREET resolved. CXR looks stable. Leg CT scan with displaced femur fracture in the setting of total knee arthroplasty. Urine culture polymicrobial as she has a history of colonization/ASB with Pseudomonas, E coli, VRE. This time urine culture grew VRE, E coli ESBL and Pseudomonas. ID consulted for r ecommendations. Allergies: Sulfa (Sulfonamide Antibiotics) Allergy (Intermediate, Verified 03/27/20 21:15) latex Allergy (Unknown, Verified 03/27/20 21:15) adhesive tape Allergy (Verified 03/27/20 21:15) atorvastatin calcium [From Lipitor] Allergy (Verified 03/27/20 21:15) celecoxib [From Celebrex] Allergy (Verified 03/27/20 21:15) Medications: Acetylcysteine [Mucomist 10% Neb 400 mg/4 mL Vial] 4 ml IH Q6 03/27/20 Allopurinol [Zyloprim 100 mg Tablet] 200 mg PO DAILY 03/27/20 Baclofen [Baclofen 10 mg Tablet] 10 mg PO TID 03/27/20 Budesonide [Pulmicort Neb 0.25 mg/2 ml Ampul] 0.25 mg NEB RTBID 03/27/20 Diltiazem HCl [Cardizem 30 mg Tablet] 30 mg PO Q8 03/27/20 Docusate Sodium [Colace 100 mg Capsule] 100 mg PO QHS 03/27/20 Duloxetine HCl [Cymbalta] 30 mg PO DAILY 03/27/20 Fluticasone Propionate [Flonase Nasal [place] 50 Mcg/[place] 16 gm] 2 spray NASL Q12 03/27/20 Fluticasone/Salmeterol [Advair 500-50 Diskus 14 Dose/Diskus] 1 puff IH Q12 03/27/20 Furosemide [Lasix 80 mg Tablet] 80 mg PO DAILY 03/27/20 Insulin Aspart [Novolog Insulin (Aspart) 100 unit/mL] 0 unit SUBCUT .SLD SCALE 03/27/20 Insulin Detemir [Levemir Insulin 100 units/mL Insulin Pen] 32 unit SUBCUT QHS 03/27/20 Ipratropium/Albuterol Sulfate [Duoneb 3 ml Ampul] 3 ml NEB RTQ4HP PRN 03/27/20 Magnesium Oxide [Magnesium] 400 mg PO DAILY 03/27/20 Melatonin 10 mg PO QHS 03/27/20 Metolazone [Zaroxolyn 5 mg Tablet] 5 mg PO DAILY 03/27/20 Metoprolol Tartrate [Lopressor 25 mg Tablet] 25 mg PO Q12 03/27/20 Multivitamin [Multiple Vitamins] 1 tab PO DAILY 03/27/20 Nitroglycerin [Nitrostat 0.4 mg (1/150 Gr) Tabs 25/Bottle] 1 tab SL Q5MP PRN 03/27/20 Nystatin [Mycostatin 063477 Unit/1 ml Susp 60 ml Btl] 10 ml PO Q6 03/27/20 Olopatadine HCl [Pataday] 1 drop OU DAILY 03/27/20 Omeprazole Magnesium [Prilosec Otc] 40 mg PO Q6AM 03/27/20 Polymyxin B Sulf/Trimethoprim [Polytrim Eye Drops] 1 drop OU Q6 03/27/20 Polyvinyl Alcohol [Liquitears 1.4% Ophth Soln 15 ml] 1 drop OU Q6 03/27/20 Potassium Chloride [Klor-Con] 20 meq PO BID 03/27/20 Prednisone [Deltasone 20 mg Tablet] 20 mg PO DAILY 03/27/20 Pregabalin [Lyrica 50 mg Capsule] 75 mg PO QHS 03/27/20 Ranolazine [Ranexa 500 mg Tab.sr] 500 mg PO Q12 03/27/20 Roflumilast [Daliresp] 500 mcg PO DAILY 03/27/20 Simethicone [Gas Relief] 80 mg PO Q6 03/27/20 Umeclidinium [place] [Incruse Ellipta] 1 puff IH DAILY 03/27/20 Witchava Alicia [Preparation H] 1 each TP QHS 03/27/20 Acetaminophen [Tylenol] 650 mg PO Q4HP PRN 04/26/20 Azithromycin [Zithromax 250 mg Tablet] 250 mg PO DAILY 04/26/20 Bupropion HCl [Wellbutrin 75 mg Tablet] 75 g PO DAILY 04/26/20 Buspirone HCl 5 mg PO Q12 04/26/20 Cetirizine HCl [Zyrtec 10 mg Tablet] 10 mg PO DAILY 04/26/20 Diclofenac Sodium [Voltaren Arthritis Pain] 1 gr TOP QID 04/26/20 Fentanyl [Duragesic 25 mcg/hr Transdermal Patch] 25 mcg TOP Q3DAYS 04/26/20 Hydrocodone/Acetaminophen [[place] 5-325 Tablet] 1 tab PO DAILY 04/26/20 Lidocaine HCl [Xylocaine 2% Jelly 5 ml Tube] 1 applic TOP Q12 04/26/20 Loperamide HCl [Imodium A-D] 2 mg PO Q4HP PRN 04/26/20 Promethazine HCl [Phenergan 25 mg Tablet] 25 mg PO Q6HP PRN 04/26/20 Vital Signs: Temp Pulse Resp BP Pulse Ox 97.7 F 79 17 118/58 L 100 04/29/20 03:25 04/29/20 03:25 04/29/20 04:44 04/29/20 03:25 04/29/20 04:44 Intake & Output 04/28/20 04/29/20 04/30/20 06:59 06:59 06:59 Intake Total 2752 1703 Output Total 2024 3049 Balance 733 -1347 Weight 90.1 kg 92.6 kg Weight/Height Weight 92.6 kg Height 5 ft 3 in Laboratories: 04/29/20 06:23 04/29/20 06:23 MCV 91 fl (80-97) 04/29/20 06:23 MCH 30.7 pg (27.0-33.4) 04/29/20 06:23 MCHC 33.9 g/dL (32.0-36.0) 04/29/20 06:23 RDW 15.9 % (11.5-14.0) H 04/29/20 06:23 Seg Neutrophils % 77.1 % (42-78) 04/29/20 06:23 Carbonic Acid 1.56 mmol/L (1.05-1.35) H 04/27/20 06:25 HCO3/H2CO3 Ratio 17:1 04/27/20 06:25 ABG pH 7.34 (7.35-7.45) L 04/27/20 06:25 ABG pCO2 51.9 mmHg (35-45) H 04/27/20 06:25 ABG pO2 110.2 mmHg (80-100) H 04/27/20 06:25 ABG HCO3 27.3 mmol/L (20-24) H 04/27/20 06:25 ABG O2 Saturation 97.7 % (94-98) 04/27/20 06:25 ABG Base Excess 1.1 mmol/L 04/27/20 06:25 FiO2 30% 04/27/20 06:25 Chloride 101 mmol/L (98-107) 04/29/20 06:23 Carbon Dioxide 32 mmol/L (22-30) H 04/29/20 06:23 Anion Gap 12 (5-19) 04/29/20 06:23 Est GFR ( Amer) 53 (>60) L 04/29/20 06:23 Glucose 121 mg/dL (75-110) H 04/29/20 06:23 Calcium 9.7 mg/dL (8.4-10.2) 04/29/20 06:23 Total Bilirubin 0.6 mg/dL (0.2-1.3) 04/26/20 16:05 AST 27 U/L (14-36) 04/26/20 16:05 Alkaline Phosphatase 92 U/L (38-126) 04/26/20 16:05 Total Protein 7.5 g/dL (6.3-8.2) 04/26/20 16:05 Albumin 3.7 g/dL (3.5-5.0) 04/26/20 16:05 Urine Color GODFREY 04/26/20 17:10 Urine Appearance SLIGHTLY-CLOUDY 04/26/20 17:10 Urine pH 5.0 (5.0-9.0) 04/26/20 17:10 Ur Specific [place] 1.018 04/26/20 17:10 Urine Protein NEGATIVE mg/dL (NEGATIVE) 04/26/20 17:10 Urine Glucose (UA) NEGATIVE mg/dL (NEGATIVE) 04/26/20 17:10 Urine Ketones NEGATIVE mg/dL (NEGATIVE) 04/26/20 17:10 Urine Blood NEGATIVE (NEGATIVE) 04/26/20 17:10 Urine Nitrite NEGATIVE (NEGATIVE) 04/26/20 17:10 Ur Leukocyte Esterase MODERATE (NEGATIVE) H 04/26/20 17:10 Urine WBC (Auto) 30 /HPF 04/26/20 17:10 Urine RBC (Auto) 8 /HPF 04/26/20 17:10 04/26/20 16:05 Troponin I 0.035 NT-Pro-B Natriuret Pep 857 H Microbiology: Urine culture: 04/24 VRE (E faecalis), Pseudomonas aeruginosa, E coli ESBL Radiology: Chest X-Ray 04/26/20 16:12 IMPRESSION: 1. Marked generalized cardiomegaly, unchanged finding since the prior study dated 03/27/2020. 2. Chronic mild changes. No acute pulmonary consolidation. Assessment and Recommendations: ID consulted for positive urine cultures in the setting of indwelling Barton catheter and history of asymptomatic bacteriuria and colonization with multiple resistant organisms producing ESBL, VRE and CRE. Catheter has been already exchanged. She has been on meropenem and azithromycin for possible onuemonia considering thick respiratory secretions although CXR not impressive for pneumonia. In terms of the urinary tract, she is already improving without VRE coverage, which confirms that this is colonization. No need to treat these organisms, these are colonizers. It is reasonable to continue meropenem and azithromycin for 5 days to complete therapy for the respiratory tract. Patient has a history of CDI, would limit exposure to antibiotics unless strictly necessary. Please call if questions. Sheryl Acevedo MD [facility] [phone]
[2020-04-29] MEDS: FLUTICASONE/VILANTEROL 200-25 MCG/DOSE IH SCH (09:53)
[2020-04-29] MEDS: FLUTICASONE NASAL SPRAY 50 MCG/SPRY 120 SPRAY/16 GM NASL SCH (09:53)
[2020-04-29] MEDS: UMECLIDINIUM BROMIDE 62.5 MCG/DOSE IH SCH (09:54)
[2020-04-29] MEDS: LIDOCAINE 2% JELLY 5 ML TUBE TOP SCH (09:54)
[2020-04-29] MEDS ORDERED: LEVOFLOXACIN 750 MG TABLET PO SCH (10:00)
[2020-04-29] MEDS: CETIRIZINE 10 MG TABLET PO SCH (10:00)
[2020-04-29] MEDS: BUPROPION HCL 75 MG TABLET PO SCH (10:00)
[2020-04-29] MEDS: BACLOFEN 10 MG TABLET PO SCH ×3 (10:00→17:31)
[2020-04-29] MEDS: PREDNISONE 20 MG TABLET PO SCH (10:00)
[2020-04-29] MEDS: FUROSEMIDE 40 MG TABLET PO SCH (10:00)
[2020-04-29] MEDS: MAGNESIUM OXIDE 400 MG TABLET PO SCH (10:01)
[2020-04-29] MEDS: DULOXETINE HCL 30 MG CAPSULE.DR PO SCH (10:01)
[2020-04-29] MEDS: MULTIVITAMIN TABLET PO SCH (10:01)
[2020-04-29] MEDS: ALLOPURINOL 100 MG TABLET PO SCH (10:01)
[2020-04-29] MEDS: AZITHROMYCIN 250 MG TABLET PO SCH (10:01)
[2020-04-29] MEDS: RANOLAZINE 500 MG TAB.SR.12H PO SCH (10:02)
[2020-04-29] MEDS: BUSPIRONE HCL 10 MG TABLET PO SCH (10:02)
[2020-04-29] MEDS: ROFLUMILAST 500 MCG TABLET PO SCH (10:02)
[2020-04-29] MEDS: OLOPATADINE HCL 0.1% OPH SOLN 5 ML OU SCH (10:04)
[2020-04-29] MEDS: POLYVINYL ALCOHOL 1.4% OPH SOLN 15 ML OU SCH ×3 (10:05→17:34)
[2020-04-29] MEDS: ENOXAPARIN SODIUM INJ 30 MG/0.3 ML DISP.SYRIN SUBCUT SCH (10:06)
[2020-04-29] MEDS: MEROPENEM 1 GM in NORMAL SALINE 50 ML IV SCH ×2 (10:11→23:59)
--- NOTE | 2020-04-29 15:01 | PDOC PROGRESS REPORT ---
Subjective Reason For Visit: ACUTE HYPOXIC RESPIRATORY FAILURE Physical Exam Vital Signs: Temp Pulse Resp BP Pulse Ox 98.2 F 76 20 148/74 H 97 04/29/20 11:40 04/29/20 13:54 04/29/20 13:54 04/29/20 11:40 04/29/20 13:54 Intake & Output 04/28/20 04/29/20 04/30/20 06:59 06:59 06:59 Intake Total 2754 8043 Output Total 4 7147 Balance 733 -1297 Weight 90.1 kg 92.6 kg General appearance: PRESENT: no acute distress, obese, well-developed, well- nourished Head exam: PRESENT: atraumatic, normocephalic Eye exam: PRESENT: conjunctiva pink, EOMI, PERRLA. ABSENT: scleral icterus Ear exam: PRESENT: normal external ear exam Mouth exam: PRESENT: moist, tongue midline Neck exam: ABSENT: carotid bruit, JVD, lymphadenopathy, thyromegaly Respiratory exam: PRESENT: decreased breath sounds, rhonchi. ABSENT: rales, wheezes Cardiovascular exam: PRESENT: RRR, +S1, +S2. ABSENT: diastolic murmur, rubs, systolic murmur Pulses: PRESENT: normal dorsalis pedis pul Vascular exam: PRESENT: normal capillary refill GI/Abdominal exam: PRESENT: normal bowel sounds, soft. ABSENT: distended, guarding, mass, organolmegaly, rebound, tenderness Rectal exam: PRESENT: deferred Extremities exam: PRESENT: other - RLE splint. ABSENT: calf tenderness, clubbing, pedal edema Neurological exam: PRESENT: alert, awake, oriented to person, oriented to place, oriented to time, oriented to situation, CN II-XII grossly intact. ABSENT: motor sensory deficit Psychiatric exam: PRESENT: appropriate affect, normal mood. ABSENT: homicidal ideation, suicidal ideation Skin exam: PRESENT: dry, intact, rash, warm. ABSENT: cyanosis Results Laboratory Results: 04/29/20 06:23 04/29/20 06:23 04/29/20 04/29/20 06:23 06:23 WBC 7.7 RBC 3.34 L Hgb 10.3 L Hct 30.3 L MCV 91 MCH 30.7 MCHC 33.9 RDW 15.9 H Plt Count 212 Seg Neutrophils % 77.1 Sodium 144.6 Potassium 3.1 L Chloride 101 Carbon Dioxide 32 H Anion Gap 12 BUN 54 H Creatinine 1.20 Est GFR ( Amer) 53 L Glucose 121 H Calcium 9.7 04/26/20 16:05 Troponin I 0.035 NT-Pro-B Natriuret Pep 857 H Impressions: Chest X-Ray 04/26/20 16:12 IMPRESSION: 1. Marked generalized cardiomegaly, unchanged finding since the prior study dated 03/27/2020. 2. Chronic mild changes. No acute pulmonary consolidation. Assessment and Plan - Diagnosis (1) Femur fracture, right Qualifiers: Encounter type: subsequent encounter Femur location: unspecified portion of femur Fracture type: closed Fracture morphology: unspecified fracture morphology Fracture healing: with routine healing Qualified Code(s): S 72.91XD - Unspecified fracture of right femur, subsequent encounter for closed fracture with routine healing Is this a current diagnosis for this admission?: Yes (2) Hyperkalemia Is this a current diagnosis for this admission?: Yes (3) Pneumonia Qualifiers: Pneumonia type: due to unspecified organism Laterality: unspecified laterality Lung location: unspecified part of lung Qualified Code(s): J18.9 - Pneumonia, unspecified organism Is this a current diagnosis for this admission?: Yes (4) Morbid obesity with BMI of 40.0-44.9, adult Is this a current diagnosis for this admission?: Yes (5) ARF (acute renal failure) Qualifiers: Is this a current diagnosis for this admission?: Yes (6) Acute and chronic respiratory failure Qualifiers: Is this a current diagnosis for this admission?: Yes (7) UTI (urinary tract infection) due to urinary indwelling catheter Qualifiers: Indwelling urinary catheter type: indwelling urethral catheter Encounter type: initial encounter Qualified Code(s): T83.511A - Infection and inflammatory reaction due to indwelling urethral catheter, initial encounter; N39.0 - Urinary tract infection, site not specified Is this a current diagnosis for this admission?: Yes Plan: Patient is growing multiple organisms including ESBL E. coli, VRE as well as Pseudomonas. It appears that she has had recurrent issues with these organisms. She does have an indwelling Barton catheter. I was informed that this was changed within the last 3 days when she came to the hospital. Consulted infectious disease due to the multiple organisms so we will continue with the meropenem for now 04/29 Likely colonizers. - Plan Summary Summary: Patient noted to be hypokalemic with a potassium of 3.1. Her kidney function is improving with a creatinine down to 1.2 fourth one 3.1 on admission white count is down to 7000. Appreciate Infectious disease input. Recommendation is to continue meropenem and azithromycin for 5 days. It is felt that her urine findings may be likely contaminant Patient can likely be discharged early next week once she completes antibiotic treatment - Time Time Spent with patient: 25-34 minutes Medications reviewed and adjusted accordingly: Yes Anticipated Discharge Disposition: [facility] Anticipated Discharge Timeframe: within 72 hours
[2020-04-29] MEDS ORDERED: POTASSIUM CHLORIDE 10 MEQ TABLET.ER PO ONE (15:30)
--- NOTE | 2020-04-29 15:53 | PDOC CONSULTATION ---
Consultation Consult Date: 04/29/20 Provider Consulted: CRISELDA PECK Consult reason:: Femur fracture History of Present Illness Admission Date/PCP: 04/26/20 18:51 KARTHIKEYAN HERNANDEZ MD Patient complains of: Right knee pain History of Present Illness: Patient is a 74-year-old white female with a history of chronic respiratory failure history of DVT, COPD, opioid dependence, CHF, sleep apnea, atrial fibrillation, anemia, hypothyroidism, prior [place], type 2 diabetes, adrenal insu fficiency, CAD and fibromyalgia who is on supplemental oxygen 2 L via nasal cannula regularly who presents to the emergency department shortness of breath and respiratory issues. She also was seen 04/24/2020 after sustaining injury the patient states on 04/21/2020 her bedside table follow-up fell striking there right knee. She states she is had pain and some swelling in the knee since. She states that morning she requested an x-ray given the ongoing pain in the x- ray showed a fracture of the distal femur of a knee replacement with displacement of the distal portion of the fracture laterally. Patient states prior to this injury she was having minimal pain and was able to bend her knee. But since the injury she is unable to bend her knee and has significant discomfort. Further questioning reveals the patient underwent total knee arthroplasty at [facility] in 2008. She has been nonambulatory for 10 years she is unable to give adequate history of exact cause of her lack of ambulation. Jamir mari also states he sustained an additional injury prior to her distal femur fracture when she was in the ambulance but which caused a fracture of her ankle but no radiographs were performed recently once again she is unaware of the exact mechanism of this fracture. She does note a history of Charcot neuropathy as well. Currently denies fever chills or sweats. Pain worse with any motion. She was placed in a knee immobilizer which has provided some but certainly not complete relief. Pain 01/07. Past Medical History Cardiac Medical History: Reports: Atrial Fibrillation, Congestive Heart Failure - Diastolic dysfunction, Coronary Artery Disease, DVT, Myocardial Infarction, Hyperlipidema, Hypertension - essential, Pulmonary Embolism, Heart Murmur Denies: Peripheral Vascular Disease Pulmonary Medical History: Reports: Asthma, Bronchitis, Chronic Obstructive Pulmonary Disease (COPD), Pneumonia - Recurrent MRSA pneumonia., Respiratory Failure - Chronic, Sleep Apnea - Uses C Pap Denies: Tuberculosis Neurological Medical History: Denies: Seizures Endocrine Medical History: Reports: Diabetes Mellitus Type 2 Denies: Diabetes Mellitus Type 1, Hyperthyroidism, Hypothyroidism GI Medical History: Reports: Gastroesophageal Reflux Disease, Hiatal Hernia Denies: Cirrhosis, Crohn's Disease, Hepatitis, Ulcerative Colitis Musculoskeltal Medical History: Reports: Arthritis, Fibromyalgia, Gout Skin Medical History: Denies: Eczema, Psoriasis Psychiatric Medical History: Reports: Dementia, Depression Hematology: Reports: Anemia Denies: Bleeding Tendencies Infectious Medical History: Reports: Clostridium Difficile, Methicillin- Resistant Staph Aureus Past Surgical History Past Surgical History: Reports: Appendectomy, Cholecystectomy, Hysterectomy, Orthopedic Surgery - Multiple left hip procedures, 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 Social History Lives with: Longterm Smoking Status: Unknown if Ever Smoked Electronic Cigarette use?: No Frequency of Alcohol Use: None Hx Recreational Drug Use: No Drugs: None Hx Prescription Drug Abuse: No - Advance Directive Resuscitation Status: Do Not Resuscitate - And does have a yellow DNR form with her papers Family History Family History: Arthritis, CAD, CVA, DM, Hyperlipidemia, Hypertension Parental Family History Reviewed: No Children Family History Reviewed: No Sibling(s) Family History Reviewed.: No Medication/Allergy Home Medications: Acetylcysteine [Mucomist 10% Neb 400 mg/4 mL Vial] 4 ml IH Q6 03/27/20 Allopurinol [Zyloprim 100 mg Tablet] 200 mg PO DAILY 03/27/20 Baclofen [Baclofen 10 mg Tablet] 10 mg PO TID 03/27/20 Budesonide [Pulmicort Neb 0.25 mg/2 ml Ampul] 0.25 mg NEB RTBID 03/27/20 Diltiazem HCl [Cardizem 30 mg Tablet] 30 mg PO Q8 03/27/20 Docusate Sodium [Colace 100 mg Capsule] 100 mg PO QHS 03/27/20 Duloxetine HCl [Cymbalta] 30 mg PO DAILY 03/27/20 Fluticasone Propionate [Flonase Nasal [place] 50 Mcg/[place] 16 gm] 2 spray NASL Q12 03/27/20 Fluticasone/Salmeterol [Advair 500-50 Diskus 14 Dose/Diskus] 1 puff IH Q12 03/27/20 Furosemide [Lasix 80 mg Tablet] 80 mg PO DAILY 03/27/20 Insulin Aspart [Novolog Insulin (Aspart) 100 unit/mL] 0 unit SUBCUT .SLD SCALE 03/27/20 Insulin Detemir [Levemir Insulin 100 units/mL Insulin Pen] 32 unit SUBCUT QHS 03/27/20 Ipratropium/Albuterol Sulfate [Duoneb 3 ml Ampul] 3 ml NEB RTQ4HP PRN 03/27/20 Magnesium Oxide [Magnesium] 400 mg PO DAILY 03/27/20 Melatonin 10 mg PO QHS 03/27/20 Metolazone [Zaroxolyn 5 mg Tablet] 5 mg PO DAILY 03/27/20 Metoprolol Tartrate [Lopressor 25 mg Tablet] 25 mg PO Q12 03/27/20 Multivitamin [Multiple Vitamins] 1 tab PO DAILY 03/27/20 Nitroglycerin [Nitrostat 0.4 mg (1/150 Gr) Tabs 25/Bottle] 1 tab SL Q5MP PRN 03/27/20 Nystatin [Mycostatin 808192 Unit/1 ml Susp 60 ml Btl] 10 ml PO Q6 03/27/20 Olopatadine HCl [Pataday] 1 drop OU DAILY 03/27/20 Omeprazole Magnesium [Prilosec Otc] 40 mg PO Q6AM 03/27/20 Polymyxin B Sulf/Trimethoprim [Polytrim Eye Drops] 1 drop OU Q6 03/27/20 Polyvinyl Alcohol [Liquitears 1.4% Ophth Soln 15 ml] 1 drop OU Q6 03/27/20 Potassium Chloride [Klor-Con] 20 meq PO BID 03/27/20 Prednisone [Deltasone 20 mg Tablet] 20 mg PO DAILY 03/27/20 Pregabalin [Lyrica 50 mg Capsule] 75 mg PO QHS 03/27/20 Ranolazine [Ranexa 500 mg Tab.sr] 500 mg PO Q12 03/27/20 Roflumilast [Daliresp] 500 mcg PO DAILY 03/27/20 Simethicone [Gas Relief] 80 mg PO Q6 03/27/20 Umeclidinium Culver [Incruse Ellipta] 1 puff IH DAILY 03/27/20 Witch Alicia [Preparation H] 1 each TP QHS 03/27/20 Levofloxacin [Levaquin 750 mg Tablet] 750 mg PO DAILY #5 tab 04/24/20 Acetaminophen [Tylenol] 650 mg PO Q4HP PRN 04/26/20 Azithromycin [Zithromax 250 mg Tablet] 250 mg PO DAILY 04/26/20 Bupropion HCl [Wellbutrin 75 mg Tablet] 75 g PO DAILY 04/26/20 Buspirone HCl 5 mg PO Q12 04/26/20 Cetirizine HCl [Zyrtec 10 mg Tablet] 10 mg PO DAILY 04/26/20 Diclofenac Sodium [Voltaren Arthritis Pain] 1 gr TOP QID 04/26/20 Fentanyl [Duragesic 25 mcg/hr Transdermal Patch] 25 mcg TOP Q3DAYS 04/26/20 Hydrocodone/Acetaminophen [Brocket 5-325 Tablet] 1 tab PO DAILY 04/26/20 Lidocaine HCl [Xylocaine 2% Jelly 5 ml Tube] 1 applic TOP Q12 04/26/20 Loperamide HCl [Imodium A-D] 2 mg PO Q4HP PRN 04/26/20 Promethazine HCl [Phenergan 25 mg Tablet] 25 mg PO Q6HP PRN 04/26/20 Allergies/Adverse Reactions: Sulfa (Sulfonamide Antibiotics) Allergy (Intermediate, Verified 03/27/20 21:15) latex Allergy (Unknown, Verified 03/27/20 21:15) adhesive tape Allergy (Verified 03/27/20 21:15) atorvastatin calcium [From Lipitor] Allergy (Verified 03/27/20 21:15) celecoxib [From Celebrex] Allergy (Verified 03/27/20 21:15) Review of Systems Constitutional: ABSENT: chills, fever(s), headache(s), weight gain, weight loss Eyes: ABSENT: visual disturbances Ears: ABSENT: hearing changes Cardiovascular: ABSENT: chest pain, dyspnea on exertion, edema, orthropnea, palpitations Respiratory: PRESENT: cough, dyspnea, sputum. ABSENT: hemoptysis Gastrointestinal: ABSENT: abdominal pain, constipation, diarrhea, hematemesis, hematochezia, nausea, vomiting Genitourinary: PRESENT: difficulty urinating. ABSENT: dysuria, hematuria Musculoskeletal: PRESENT: as per HPI Integumentary: ABSENT: rash, wounds Neurological: ABSENT: abnormal gait, abnormal speech, confusion, dizziness, focal weakness, syncope Psychiatric: PRESENT: depression. ABSENT: anxiety, homidical ideation, suicidal ideation Endocrine: ABSENT: cold intolerance, heat intolerance, menstrual abnormalities, polydipsia, polyuria Hematologic/Lymphatic: ABSENT: easy bleeding, easy bruising, lymphadenopathy Physical Exam Vital Signs: Temp Pulse Resp BP Pulse Ox 98.2 F 76 20 148/74 H 97 04/29/20 11:40 04/29/20 13:54 04/29/20 13:54 04/29/20 11:40 04/29/20 13:54 Intake & Output 04/28/20 04/29/20 04/30/20 06:59 06:59 06:59 Intake Total 275 1753 490 Output Total 2024 3050 1700 Balance 733 -1297 -1210 Weight 90.1 kg 92.6 kg General appearance: PRESENT: no acute distress, obese, well-developed, well- nourished Head exam: PRESENT: atraumatic, normocephalic Eye exam: PRESENT: conjunctiva pink, EOMI, PERRLA. ABSENT: scleral icterus Ear exam: PRESENT: normal external ear exam Mouth exam: PRESENT: moist, tongue midline Neck exam: PRESENT: full ROM. ABSENT: carotid bruit, JVD, lymphadenopathy, thyromegaly Respiratory exam: PRESENT: wheezes Cardiovascular exam: PRESENT: RRR. ABSENT: diastolic murmur, rubs, systolic murmur Pulses: PRESENT: normal dorsalis pedis pul, +2 pedal pulses bilateral Vascular exam: PRESENT: normal capillary refill GI/Abdominal exam: PRESENT: normal bowel sounds, soft. ABSENT: distended, g uarding, mass, organolmegaly, rebound, tenderness Rectal exam: PRESENT: deferred Musculoskeletal exam: PRESENT: other - Right lower extremity: Knee immobilizer removed. Swelling/ecchymosis noted along the knee prior incision noted without abnormality. Significant deformity of the distal femur with external rotation noted. Weakness with plantarflexion/dorsiflexion. Stocking glove hypoesthesia throughout the foot. Cap refill less than 2 seconds. Dorsalis pedis pulse 2+. Pain with any attempted range of motion. No evidence of effusion. Wound noted along the anterior aspect of the distal tibia Neurological exam: PRESENT: alert, awake, oriented to person, oriented to place, oriented to time, oriented to situation, CN II-XII grossly intact. ABSENT: motor sensory deficit Psychiatric exam: PRESENT: appropriate affect, normal mood. ABSENT: homicidal ideation, suicidal ideation Skin exam: PRESENT: dry, intact, warm. ABSENT: cyanosis, rash Results Laboratory Results: 10/30/20 06:23 04/29/20 06:23 04/29/20 04/29/20 06:23 06:23 WBC 7.7 RBC 3.34 L Hgb 10.3 L Hct 30.3 L MCV 91 MCH 30.7 MCHC 33.9 RDW 15.9 H Plt Count 212 Seg Neutrophils % 77.1 Sodium 144.6 Potassium 3.1 L Chloride 101 Carbon Dioxide 32 H Anion Gap 12 BUN 54 H Creatinine 1.20 Est GFR ( Amer) 53 L Glucose 121 H Calcium 9.7 04/26/20 16:05 Troponin I 0.035 NT-Pro-B Natriuret Pep 857 H Impressions: Chest X-Ray 04/26/20 16:12 IMPRESSION: 1. Marked generalized cardiomegaly, unchanged finding since the prior study dated 03/27/2020. 2. Chronic mild changes. No acute pulmonary consolidation. Status: Image reviewed by me - I have reviewed patient's previous radiographs and CT scan which demonstrate displaced distal femoral prosthesis notable metal artifact. Prior distal femur fracture chronicity unknown Assessment & Plan - Diagnosis (1) Femur fracture, right Qualifiers: Encounter type: subsequent encounter Femur location: unspecified portion of femur Fracture type: closed Fracture morphology: unspecified fracture morphology Fracture healing: with routine healing Qualified Code(s): S72.91XD - Unspecified fracture of right femur, subsequent encounter for closed fracture with routine healing Is this a current diagnosis for this admission?: Yes Plan: It appears patient sustained a distal femur fracture however there is also possibility of aseptic loosening of the prosthesis which could have occurred over time. It is difficult to determine chronicity or exact nature of the injury given patient's somewhat inaccurate history. But more likely than not this is more of a chronic issue than an acute issue especially given mechanism of injury is unlikely to result in supracondylar femur fracture as noted on CT scan and radiographs. Thus Charcot arthropathy remains fairly high in the differential diagnosis. In the meantime we will continue knee immobilizer. Patient will remain nonweightbearing May transfer from bed to chair. Should focus on skin care to avoid breakdown. Patient may follow-up as an outpatient. We will also place orders for radiographs of her ankle given her history of possible ankle fracture.
--- NOTE | 2020-04-29 16:38 | RADIOLOGY REPORT (SQ) ---
EXAM DESCRIPTION: ANKLE RIGHT AP/LATERAL IMAGES COMPLETED DATE/TIME: 04/29/2020 4:29 pm REASON FOR STUDY: pain COMPARISON: None. NUMBER OF VIEWS: Two views. TECHNIQUE: AP and lateral radiographic images acquired of the right ankle. LIMITATIONS: None. FINDINGS: MINERALIZATION: Normal. BONES: No acute fracture or dislocation. No worrisome bone lesions. JOINTS: No effusions. SOFT TISSUES: Mild calf edema. OTHER: Spurring at the insertion site of the plantar aponeurosis. IMPRESSION: Mild calf edema. No displaced fractures. TECHNICAL DOCUMENTATION: JOB ID: [id number] 2010 [employer]- All Rights Reserved Reading location - IP/workstation name: [email or web address]
[2020-04-29] MEDS: GUAIFENESIN 600 MG TABLET.SA PO SCH (18:53)
[2020-04-29] MEDS ORDERED: DEXTROSE 40% GEL 15 GM TUBE PO PRN (20:30)
[2020-04-29] MEDS ORDERED: GLUCAGON,HUMAN RECOMB 1 MG INJ IM PRN (20:30)
[2020-04-29] MEDS ORDERED: DEXTROSE 40% GEL 15 GM TUBE X 2 PO PRN (20:30)
[2020-04-29] MEDS ORDERED: DEXTROSE 50%-WATER SYRINGE 12.5 GM/25 ML DOSE IV PRN (20:30)
[2020-04-29] MEDS ORDERED: DEXTROSE 50%-WATER SYRINGE 25 GM/50 ML DOSE IV PRN (20:30)
[2020-04-30] MEDS: SIMETHICONE 80 MG TAB.CHEW PO SCH ×5 (00:01→23:19)
[2020-04-30] MEDS: DILTIAZEM HCL 30 MG TABLET PO SCH ×4 (00:04→23:17)
[2020-04-30] MEDS: RANOLAZINE 500 MG TAB.SR.12H PO SCH ×3 (00:05→23:20)
[2020-04-30] MEDS: DOCUSATE SODIUM 100 MG CAPSULE PO SCH ×2 (00:05→23:21)
[2020-04-30] MEDS: BUSPIRONE HCL 10 MG TABLET PO SCH ×3 (00:06→23:21)
[2020-04-30] MEDS: PREGABALIN 50 MG CAPSULE PO SCH ×2 (00:06→23:18)
[2020-04-30] MEDS: GUAIFENESIN 600 MG TABLET.SA PO SCH ×3 (00:06→23:20)
[2020-04-30] MEDS: NYSTATIN 500000 UNIT/5 ML UDCUP PO SCH ×5 (00:07→23:18)
[2020-04-30] MEDS: INSULIN GLARGINE,HUM.REC.ANLOG 1,000 UNIT/10 ML VIAL SUBCUT SCH ×2 (00:10→23:26)
[2020-04-30] MEDS: POLYMYXIN B SULFATE/TMP OPH SOLN 10 ML OU SCH ×5 (00:15→23:29)
[2020-04-30] MEDS: POLYVINYL ALCOHOL 1.4% OPH SOLN 15 ML OU SCH ×5 (00:15→23:28)
[2020-04-30] MEDS: FLUTICASONE NASAL SPRAY 50 MCG/SPRY 120 SPRAY/16 GM NASL SCH ×3 (00:17→23:29)
[2020-04-30] MEDS: TEMAZEPAM 15 MG CAPSULE PO PRN (00:40)
[2020-04-30] MEDS: ONDANSETRON HCL INJ/PF 4 MG/2 ML SDV IV PRN ×2 (00:41→23:21)
[2020-04-30] MEDS: IPRATROPIUM/ALBUTEROL 0.5-2.5 MG/3 ML AMPUL NEB PRN ×4 (01:40→20:36)
[2020-04-30] MEDS: ACETYLCYSTEINE 10% NEB 400 MG/4 ML VIAL NEB SCH ×4 (01:40→20:36)
[2020-04-30] MEDS: HYDROCODONE/ACETAMINOPHEN 5-325 MG TABLET PO PRN ×4 (06:40→23:19)
[2020-04-30] MEDS: PANTOPRAZOLE SODIUM 40 MG TABLET.DR PO SCH (06:41)
[2020-04-30] MEDS: METOPROLOL TARTRATE 25 MG TABLET PO SCH ×2 (06:41→17:13)
[2020-04-30 06:42] LABS: ANION GAP 5 (5-19); BLOOD UREA NITROGEN 41 mg/dL (7-20); CARBON DIOXIDE 39 mmol/L (22-30); CHLORIDE 99 mmol/L (98-107); GLUCOSE 107 mg/dL (75-110); POTASSIUM 3.9 mmol/L (3.6-5.0)
[2020-04-30] MEDS: BUDESONIDE NEB 0.25 MG/2 ML AMPUL NEB SCH ×2 (08:31→20:36)
[2020-04-30] MEDS: INSULIN LISPRO 100 UNIT/ML 3 ML VIAL SUBCUT SCH ×3 (09:16→16:05)
[2020-04-30] MEDS: MEROPENEM 1 GM in NORMAL SALINE 50 ML IV SCH ×2 (09:25→23:17)
[2020-04-30] MEDS: ENOXAPARIN SODIUM INJ 30 MG/0.3 ML DISP.SYRIN SUBCUT SCH (09:25)
[2020-04-30] MEDS: DULOXETINE HCL 30 MG CAPSULE.DR PO SCH (09:26)
[2020-04-30] MEDS: CETIRIZINE 10 MG TABLET PO SCH (09:26)
[2020-04-30] MEDS: PREDNISONE 20 MG TABLET PO SCH (09:26)
[2020-04-30] MEDS: BACLOFEN 10 MG TABLET PO SCH ×3 (09:26→17:13)
[2020-04-30] MEDS: ALLOPURINOL 100 MG TABLET PO SCH (09:26)
[2020-04-30] MEDS: MAGNESIUM OXIDE 400 MG TABLET PO SCH (09:26)
[2020-04-30] MEDS: ROFLUMILAST 500 MCG TABLET PO SCH (09:26)
[2020-04-30] MEDS: BUPROPION HCL 75 MG TABLET PO SCH (09:27)
[2020-04-30] MEDS: LIDOCAINE 2% JELLY 5 ML TUBE TOP SCH ×3 (09:27→23:28)
[2020-04-30] MEDS: AZITHROMYCIN 250 MG TABLET PO SCH (09:27)
[2020-04-30] MEDS: FUROSEMIDE 40 MG TABLET PO SCH (09:27)
[2020-04-30] MEDS: MULTIVITAMIN TABLET PO SCH (09:27)
[2020-04-30] MEDS: ACETAMINOPHEN 325 MG TABLET PO PRN ×2 (09:29→15:54)
[2020-04-30] MEDS: OLOPATADINE HCL 0.1% OPH SOLN 5 ML OU SCH (09:30)
[2020-04-30] MEDS: UMECLIDINIUM BROMIDE 62.5 MCG/DOSE IH SCH (09:31)
[2020-04-30] MEDS: FLUTICASONE/VILANTEROL 200-25 MCG/DOSE IH SCH (09:31)
[2020-04-30] MEDS ORDERED: BISACODYL 10 MG SUPP.RECT PR PRN (13:30)
--- NOTE | 2020-04-30 13:47 | PDOC PROGRESS REPORT ---
Subjective Progress Note for:: 04/30/20 Subjective:: patient continues to improve clinically c/o constipation Reason For Visit: ACUTE HYPOXIC RESPIRATORY FAILURE Physical Exam Vital Signs: Temp Pulse Resp BP Pulse Ox 98.0 F 78 18 147/98 H 100 04/30/20 12:49 04/30/20 12:49 04/30/20 12:49 04/30/20 12:49 04/30/20 12:49 Intake & Output 04/29/20 04/30/20 05/01/20 06:59 06:59 05:59 Intake Total 1753 1690 100 Output Total 3050 3350 Balance -1297 -1660 100 Weight 92.6 kg 92.6 kg General appearance: PRESENT: no acute distress, well-developed, well-nourished Head exam: PRESENT: atraumatic, normocephalic Eye exam: PRESENT: conjunctiva pink, EOMI. ABSENT: scleral icterus Ear exam: PRESENT: normal external ear exam Mouth exam: PRESENT: moist, tongue midline Neck exam: ABSENT: carotid bruit, JVD, lymphadenopathy, thyromegaly Respiratory exam: PRESENT: clear to auscultation elia, unlabored. ABSENT: rales, rhonchi, wheezes Cardiovascular exam: PRESENT: RRR. ABSENT: diastolic murmur, rubs, systolic murmur Pulses: PRESENT: normal dorsalis pedis pul Vascular exam: PRESENT: normal capillary refill GI/Abdominal exam: PRESENT: normal bowel sounds, soft. ABSENT: distended, guarding, mass, organolmegaly, rebound, tenderness Rectal exam: PRESENT: deferred Extremities exam: PRESENT: other - Splint in RLE. ABSENT: calf tenderness, clubbing, pedal edema Neurological exam: PRESENT: alert, awake, oriented to person, oriented to place, oriented to time, oriented to situation, CN II-XII grossly intact. ABSENT: motor sensory deficit Psychiatric exam: PRESENT: appropriate affect, normal mood. ABSENT: homicidal ideation, suicidal ideation Skin exam: ABSENT: cyanosis, rash Results Laboratory Results: 04/29/20 06:23 04/30/20 05:57 04/30/20 05:57 Sodium 143.3 Potassium 3.9 Chloride 99 Carbon Dioxide 39 H Anion Gap 5 BUN 41 H Creatinine 0.79 Est GFR ( Amer) > 60 Glucose 107 Calcium 10.0 04/26/20 16:05 Troponin I 0.035 NT-Pro-B Natriuret Pep 857 H Impressions: Chest X-Ray 04/26/20 16:12 IMPRESSION: 1. Marked generalized cardiomegaly, unchanged finding since the prior study dated 03/27/2020. 2. Chronic mild changes. No acute pulmonary consolidation. Ankle X-Ray 04/29/20 00:00 IMPRESSION: Mild calf edema. No displaced fractures. Assessment and Plan - Diagnosis (1) Femur fracture, right Qualifiers: Encounter type: subsequent encounter Femur location: unspecified portion of femur Fracture type: closed Fracture morphology: unspecified fracture morphology Fracture healing: with routine healing Qualified Code(s): S72.91XD - Unspecified fracture of right femur, subsequent encounter for closed fracture with routine healing Is this a current diagnosis for this admission?: Yes (2) Hyperkalemia Is this a current diagnosis for this admission?: Yes (3) Pneumonia Qualifiers: Pneumonia type: due to unspecified organism Laterality: unspecified laterality Lung location: unspecified part of lung Qualified Code(s): J18.9 - Pneumonia, unspecified organism Is this a current diagnosis for this admission?: Yes (4) Morbid obesity with BMI of 40.0-44.9, adult Is this a current diagnosis for this admission?: Yes (5) ARF (acute renal failure) Qualifiers: Is this a current diagnosis for this admission?: Yes (6) Acute and chronic respiratory failure Qualifiers: Is this a current diagnosis for this admission?: Yes (7) UTI (urinary tract infection) due to urinary indwelling catheter Qualifiers: Indwelling urinary catheter type: indwelling urethral catheter Encounter type: initial encounter Qualified Code(s): T83.511A - Infection and inflammatory reaction due to indwelling urethral catheter, initial encounter; N39.0 - Urinary tract infection, site not specified Is this a current diagnosis for this admission?: Yes - Plan Summary Summary: Patient noted to be hypokalemic with a potassium of 3.1. Her kidney function is improving with a creatinine down to 1.2 fourth one 3.1 on admission white count is down to 7000. Appreciate Infectious disease input. Recommendation is to continue meropenem and azithromycin for 5 days. It is felt that her urine findings may be likely contaminant Patient can likely be discharged 05/02 once she completes antibiotic treatment 04/30 Meropenem was started on April 27 and as per infectious disease suggestion will complete a 5-day course on May 01. Antibiotics can be stopped on May 01 and patient can be discharged to half-way on May 02 if she remains stable patient was seen by Dr. Edge due to a femoral fracture which she sustained on April 21 prior to this admission. He suggest to continue with knee immobilizer, remain nonweightbearing although may transfer from bed to chair - Time Time Spent with patient: 15-24 minutes Medications reviewed and adjusted accordingly: Yes Anticipated Discharge Disposition: [facility] Anticipated Discharge Timeframe: within 48 hours
[2020-04-30] MEDS ORDERED: TRAMADOL HCL 50 MG TABLET PO SCH (14:00)
[2020-05-01] MEDS: IPRATROPIUM/ALBUTEROL 0.5-2.5 MG/3 ML AMPUL NEB PRN ×4 (02:08→19:58)
[2020-05-01] MEDS: ACETYLCYSTEINE 10% NEB 400 MG/4 ML VIAL NEB SCH ×4 (02:08→19:58)
[2020-05-01] MEDS: HYDROCODONE/ACETAMINOPHEN 5-325 MG TABLET PO PRN ×3 (04:27→17:07)
[2020-05-01] MEDS: NYSTATIN 500000 UNIT/5 ML UDCUP PO SCH ×3 (06:06→17:07)
[2020-05-01] MEDS: SIMETHICONE 80 MG TAB.CHEW PO SCH ×3 (06:07→17:07)
[2020-05-01] MEDS: PANTOPRAZOLE SODIUM 40 MG TABLET.DR PO SCH (06:07)
[2020-05-01] MEDS: METOPROLOL TARTRATE 25 MG TABLET PO SCH ×2 (06:07→17:07)
[2020-05-01] MEDS: DILTIAZEM HCL 30 MG TABLET PO SCH ×3 (06:07→21:52)
[2020-05-01] MEDS: POLYMYXIN B SULFATE/TMP OPH SOLN 10 ML OU SCH ×3 (06:10→17:08)
[2020-05-01] MEDS: BUDESONIDE NEB 0.25 MG/2 ML AMPUL NEB SCH ×2 (08:13→19:58)
[2020-05-01] MEDS: INSULIN LISPRO 100 UNIT/ML 3 ML VIAL SUBCUT SCH ×3 (10:09→17:08)
[2020-05-01] MEDS: MEROPENEM 1 GM in NORMAL SALINE 50 ML IV SCH ×2 (10:26→21:47)
[2020-05-01] MEDS: ROFLUMILAST 500 MCG TABLET PO SCH (10:28)
[2020-05-01] MEDS: GUAIFENESIN 600 MG TABLET.SA PO SCH ×2 (10:28→21:53)
[2020-05-01] MEDS: FUROSEMIDE 40 MG TABLET PO SCH (10:30)
[2020-05-01] MEDS: RANOLAZINE 500 MG TAB.SR.12H PO SCH ×2 (10:32→21:52)
[2020-05-01] MEDS: CETIRIZINE 10 MG TABLET PO SCH (10:32)
[2020-05-01] MEDS: ALLOPURINOL 100 MG TABLET PO SCH (10:32)
[2020-05-01] MEDS: BUSPIRONE HCL 10 MG TABLET PO SCH ×2 (10:32→21:52)
[2020-05-01] MEDS: DULOXETINE HCL 30 MG CAPSULE.DR PO SCH (10:33)
[2020-05-01] MEDS: PREDNISONE 20 MG TABLET PO SCH (10:33)
[2020-05-01] MEDS: BUPROPION HCL 75 MG TABLET PO SCH (10:33)
[2020-05-01] MEDS: MAGNESIUM OXIDE 400 MG TABLET PO SCH (10:33)
[2020-05-01] MEDS: BACLOFEN 10 MG TABLET PO SCH ×3 (10:34→17:07)
[2020-05-01] MEDS: AZITHROMYCIN 250 MG TABLET PO SCH (10:34)
[2020-05-01] MEDS: MULTIVITAMIN TABLET PO SCH (10:34)
[2020-05-01] MEDS: UMECLIDINIUM BROMIDE 62.5 MCG/DOSE IH SCH (10:35)
[2020-05-01] MEDS: FLUTICASONE NASAL SPRAY 50 MCG/SPRY 120 SPRAY/16 GM NASL SCH ×2 (10:35→22:25)
[2020-05-01] MEDS: FLUTICASONE/VILANTEROL 200-25 MCG/DOSE IH SCH (10:35)
[2020-05-01] MEDS: OLOPATADINE HCL 0.1% OPH SOLN 5 ML OU SCH (10:36)
[2020-05-01] MEDS: LIDOCAINE 2% JELLY 5 ML TUBE TOP SCH ×2 (10:37→21:49)
[2020-05-01] MEDS: ENOXAPARIN SODIUM INJ 30 MG/0.3 ML DISP.SYRIN SUBCUT SCH (10:46)
[2020-05-01] MEDS: POLYVINYL ALCOHOL 1.4% OPH SOLN 15 ML OU SCH ×4 (10:48→22:25)
[2020-05-01] MEDS: ACETAMINOPHEN 325 MG TABLET PO PRN (14:24)
--- NOTE | 2020-05-01 17:29 | PDOC PROGRESS REPORT ---
Subjective Subjective:: Per Previous Physician: "PORSHA WALDRON is a 74 year old female Patient presents emergency room apparently with difficulty breathing. She was found to be hypoxic on initial presentation. She was given 5 mg of Versed just prior to arrival and it appears patient became nonresponsive. She was bagged by the nursing staff and she also received Romazicon as well as Narcan as she has a fentanyl patch that was removed just prior to arrival. It appears she did not work-up briefly and she was talkative however by the time I saw her patient was lethargic again and hardly arousable. She had green thick phlegm on presentat ion. She apparently uses BiPAP nocturnally. Please note that this information is obtained solely from the chart as patient is unable to provide any information due to her lethargy. She had a recent fracture and a distal femoral and a status post total knee osteoplasty. She has a Velcro splint on her right lower extremity. The complaint of a cough with yellow sputum and she is noted to be also with a UTI as well as a leukocytosis patient also has a hyperkalemia with potassium of 6.5 and she has an acute kidney injury with a creatinine of 3.16 up from 2.05 just 48 hours ago BUN is 85 up from 60 to 48 hours ago" 05/01/2020 Patient seems to be doing well overall however she is still having difficulty using her BiPAP and is already refusing it intermittently in [facility] nursing. I had a long discussion with her about the use of BiPAP given that I also have some personal experience using these devices myself. If she does not use her BiPAP as instructed, I believe she will continue to have significant hypercarbic respiratory failure in the setting of COPD and ROSETTA she will be readmitted to the hospital multiple times in short order. I explained the pathophysiology behind this in plain terms and confirm that she understood. She will have a ophthalmic technician apprentice bring in her BiPAP tomorrow we will have the respiratory therapist educate the patient and ophthalmic technician apprentice on the use of BiPAP and also make setting adjustments as needed. Patient can be discharged tomorrow after this is done. Reason For Visit: ACUTE HYPOXIC RESPIRATORY FAILURE Physical Exam Vital Signs: Temp Pulse Resp BP Pulse Ox 97.6 F 106 H 16 141/85 H 100 05/01/20 12:24 05/01/20 14:00 05/01/20 14:00 05/01/20 12:24 05/01/20 12:24 Intake & Output 04/30/20 05/01/20 05/02/20 07:59 06:59 06:59 Intake Total 370 Output Total 875 Balance -505 Weight Exam: General appearance: PRESENT: no acute distress, well-developed, well-nourished, obese Head exam: PRESENT: atraumatic, normocephalic Eye exam: PRESENT: conjunctiva pink. ABSENT: scleral icterus Mouth exam: PRESENT: moist Respiratory exam: PRESENT: clear to auscultation elia. ABSENT: rales, rhonchi, wheezes Cardiovascular exam: PRESENT: RRR. ABSENT: diastolic murmur, rubs, systolic murmur GI/Abdominal exam: PRESENT: normal bowel sounds, soft. ABSENT: distended, guarding, mass, organolmegaly, rebound, tenderness Neurological exam: PRESENT: alert, awake, oriented to person, oriented to place, oriented to time, oriented to situation Psychiatric exam: PRESENT: appropriate affect, normal mood Skin exam: PRESENT: dry, intact, warm Results Laboratory Results: 04/29/20 06:23 04/30/20 05:57 04/26/20 16:05 Troponin I 0.035 NT-Pro-B Natriuret Pep 857 H Impressions: Chest X-Ray 04/26/20 16:12 IMPRESSION: 1. Marked generalized cardiomegaly, unchanged finding since the prior study dated 03/27/2020. 2. Chronic mild changes. No acute pulmonary consolidation. Ankle X-Ray 04/29/20 00:00 IMPRESSION: Mild calf edema. No displaced fractures. Assessment and Plan - Diagnosis (1) Femur fracture, right Qualifiers: Encounter type: subsequent encounter Femur location: unspecified portion of femur Fracture type: closed Fracture morphology: unspecified fracture morphology Fracture healing: with routine healing Qualified Code(s): S72.91XD - Unspecified fracture of right femur, subsequent encounter for closed fracture with routine healing Is this a current diagnosis for this admission?: Yes (2) Hyperkalemia Is this a current diagnosis for this admission?: Yes (3) Pneumonia Qualifiers: Pneumonia type: due to unspecified organism Laterality: unspecified laterality Lung location: unspecified part of lung Qualified Code(s): J18.9 - Pneumonia, unspecified organism Is this a current diagnosis for this admission?: Yes (4) Morbid obesity with BMI of 40.0-44.9, adult Is this a current diagnosis for this admission?: Yes (5) Acute kidney injury superimposed on chronic kidney disease Is this a current diagnosis for this admission?: Yes (6) COPD (chronic obstructive pulmonary disease) Qualifiers: Emphysema type: unspecified Is this a current diagnosis for this admission?: Yes (7) Complicated UTI (urinary tract infection) Is this a current diagnosis for this admission?: Yes (8) Coronary artery disease Qualifiers: Coronary Disease-Associated Artery/Lesion type: [place] artery Associated angina: without angina Is this a current diagnosis for this admission?: Yes (9) DM type 2 (diabetes mellitus, type 2) Is this a current diagnosis for this admission?: Yes (10) ESBL (extended spectrum beta-lactamase) producing bacteria infection Is this a current diagnosis for this admission?: Yes (11) Functional quadriplegia Is this a current diagnosis for this admission?: Yes (12) HTN (hypertension) Qualifiers: Hypertension type: essential hypertension Qualified Code(s): I10 - Essential (primary) hypertension Is this a current diagnosis for this admission?: Yes (13) Hyperlipidemia Qualifiers: Hyperlipidemia type: unspecified Qualified Code(s): E78.5 - Hyperlipidemia, unspecified Is this a current diagnosis for this admission?: Yes (14) Infection with multi-drug resistant microorganisms Is this a current diagnosis for this admission?: Yes (15) Morbid (severe) obesity with alveolar hypoventilation Is this a current diagnosis for this admission?: Yes (16) Narcotic dependency, continuous Is this a current diagnosis for this admission?: Yes (17) Obstructive sleep apnea Is this a current diagnosis for this admission?: Yes (18) Chronic pain syndrome Is this a current diagnosis for this admission?: Yes (19) Generalized anxiety disorder Is this a current diagnosis for this admission?: Yes - Plan Summary Summary: Per Previous Physician: "Patient noted to be hypokalemic with a potassium of 3.1. Her kidney function is improving with a creatinine down to 1.2 fourth one 3.1 on admission white count is down to 7000. Appreciate Infectious disease input. Recommendation is to continue meropenem and azithromycin for 5 days. It is felt that her urine findings may be likely contaminant Patient can likely be discharged 05/02 once she completes antibiotic treatment 04/30 Meropenem was started on April 27 and as per infectious disease suggestion will complete a 5-day course on May 01. Antibiotics can be stopped on May 01 and patient can be discharged to halfway on May 02 if she remains stable patient was seen by Dr. Edge due to a femoral fracture which she sustained on April 21 prior to this admission. He suggest to continue with knee immobilizer, remain nonweightbearing although may transfer from bed to chair" (1) Femur fracture, right Qualifiers: Encounter type: subsequent encounter Femur location: unspecified portion of femur Fracture type: closed Fracture morphology: unspecified fracture morphology Fracture healing: with routine healing Qualified Code(s): S72.91XD - Unspecified fracture of right femur, subsequent encounter for closed fracture with routine healing Is this a current diagnosis for this admission?: Yes -Orthopedic surgery consulted: No indication for surgery currently, continue knee immobilizer, follow-up as outpatient Ankle x-ray did not show any acute fracture Pain management Long-term resident at [facility] (2) Hyperkalemia Is this a current diagnosis for this admission?: Yes Resolved (3) ruled out pneumonia Pneumonia type: due to unspecified organism Laterality: unspecified laterality Lung location: unspecified part of lung Qualified Code(s): J18.9 - Pneumonia, unspecified organism Is this a current diagnosis for this admission?: Yes No evidence of acute findings on chest x-ray Antibiotics for UTI will also treat pneumonia if this were present however there is little to no evidence that she has a pneumonia (4) Morbid obesity with BMI of 40.0-44.9, adult Needs weight loss, will have to do this via diet alone as her mobility is extremely limited, recommend vegan diet (5) ARF (acute renal failure) Resolved to baseline Is this a current diagnosis for this admission?: Yes (6) Acute and chronic respiratory failure Resolved to baseline breathing Is this a current diagnosis for this admission?: Yes (7) UTI (urinary tract infection) due to urinary indwelling catheter Recurrent, urine culture frequently growing resistant bacteria including VRE and Pseudomonas ID consulted: Continue antibiotics until May 01 - Time Time Spent with patient: 25-34 minutes Medications reviewed and adjusted accordingly: Yes Anticipated Discharge Disposition: [facility] Anticipated Discharge Timeframe: within 48 hours - Inpatient Certification Based on my medical assessment, after consideration of the patient's comorbidities, presenting symptoms, or acuity I expect that the services needed warrant INPATIENT care.: Yes I certify that my determination is in accordance with my understanding of Medicare's requirements for reasonable and necessary INPATIENT services [42 CFR 412.3e].: Yes Medical Necessity: Significant Comorbidiites Make Outpatient Treatment Too Risk y, Need Close Monitoring Due to Risk of Patient Decompensation, Need for IV Antibiotics, Risk of Complication if Not Cared For in Hospital, Risk of Diagnosis Which Will Require Inpatient Eval/Care/Monitoring
[2020-05-01] MEDS: PREGABALIN 50 MG CAPSULE PO SCH (18:34)
[2020-05-01] MEDS: INSULIN GLARGINE,HUM.REC.ANLOG 1,000 UNIT/10 ML VIAL SUBCUT SCH (21:49)
[2020-05-01] MEDS: TEMAZEPAM 15 MG CAPSULE PO PRN (21:51)
[2020-05-01] MEDS: DOCUSATE SODIUM 100 MG CAPSULE PO SCH (21:53)
[2020-05-02] MEDS: NYSTATIN 500000 UNIT/5 ML UDCUP PO SCH ×3 (00:23→14:19)
[2020-05-02] MEDS: POLYMYXIN B SULFATE/TMP OPH SOLN 10 ML OU SCH ×3 (00:24→13:59)
[2020-05-02] MEDS: SIMETHICONE 80 MG TAB.CHEW PO SCH ×3 (00:24→14:19)
[2020-05-02] MEDS: IPRATROPIUM/ALBUTEROL 0.5-2.5 MG/3 ML AMPUL NEB PRN ×3 (02:08→14:12)
[2020-05-02] MEDS: ACETYLCYSTEINE 10% NEB 400 MG/4 ML VIAL NEB SCH ×3 (02:08→14:12)
[2020-05-02] MEDS: HYDROCODONE/ACETAMINOPHEN 5-325 MG TABLET PO PRN ×2 (03:36→09:58)
[2020-05-02] MEDS: PANTOPRAZOLE SODIUM 40 MG TABLET.DR PO SCH (05:25)
[2020-05-02] MEDS: METOPROLOL TARTRATE 25 MG TABLET PO SCH (05:27)
[2020-05-02] MEDS: DILTIAZEM HCL 30 MG TABLET PO SCH ×2 (05:27→14:19)
[2020-05-02 08:45] LABS: BLOOD UREA NITROGEN 33 mg/dL (7-20); CALCIUM 10.5 mg/dL (8.4-10.2); CHLORIDE 88 mmol/L (98-107); GLUCOSE 110 mg/dL (75-110); POTASSIUM 3.8 mmol/L (3.6-5.0)
[2020-05-02 08:52] LABS: ANION GAP 10 (5-19); CARBON DIOXIDE 39 mmol/L (22-30)
[2020-05-02] MEDS: BUDESONIDE NEB 0.25 MG/2 ML AMPUL NEB SCH (08:59)
[2020-05-02] MEDS: BUPROPION HCL 75 MG TABLET PO SCH (09:55)
[2020-05-02] MEDS: PREGABALIN 50 MG CAPSULE PO SCH (09:55)
[2020-05-02] MEDS: DULOXETINE HCL 30 MG CAPSULE.DR PO SCH (09:55)
[2020-05-02] MEDS: PREDNISONE 20 MG TABLET PO SCH (09:55)
[2020-05-02] MEDS: CETIRIZINE 10 MG TABLET PO SCH (09:55)
[2020-05-02] MEDS: RANOLAZINE 500 MG TAB.SR.12H PO SCH (09:55)
[2020-05-02] MEDS: MULTIVITAMIN TABLET PO SCH (09:55)
[2020-05-02] MEDS: BUSPIRONE HCL 10 MG TABLET PO SCH (09:56)
[2020-05-02] MEDS: FUROSEMIDE 40 MG TABLET PO SCH (09:56)
[2020-05-02] MEDS: BACLOFEN 10 MG TABLET PO SCH ×2 (09:56→14:20)
[2020-05-02] MEDS: ROFLUMILAST 500 MCG TABLET PO SCH (09:58)
[2020-05-02] MEDS: GUAIFENESIN 600 MG TABLET.SA PO SCH (09:58)
[2020-05-02] MEDS: ALLOPURINOL 100 MG TABLET PO SCH (09:58)
[2020-05-02] MEDS: MAGNESIUM OXIDE 400 MG TABLET PO SCH (09:58)
[2020-05-02] MEDS: ONDANSETRON HCL INJ/PF 4 MG/2 ML SDV IV PRN (09:59)
[2020-05-02] MEDS: ENOXAPARIN SODIUM INJ 30 MG/0.3 ML DISP.SYRIN SUBCUT SCH (09:59)
[2020-05-02] MEDS: INSULIN LISPRO 100 UNIT/ML 3 ML VIAL SUBCUT SCH ×2 (10:01→13:59)
[2020-05-02] MEDS: FLUTICASONE/VILANTEROL 200-25 MCG/DOSE IH SCH (10:02)
[2020-05-02] MEDS: UMECLIDINIUM BROMIDE 62.5 MCG/DOSE IH SCH (10:02)
[2020-05-02] MEDS: LIDOCAINE 2% JELLY 5 ML TUBE TOP SCH (10:04)
[2020-05-02] MEDS: POLYVINYL ALCOHOL 1.4% OPH SOLN 15 ML OU SCH ×2 (10:25→14:22)
[2020-05-02] MEDS: OLOPATADINE HCL 0.1% OPH SOLN 5 ML OU SCH (10:25)
[2020-05-02] MEDS: FLUTICASONE NASAL SPRAY 50 MCG/SPRY 120 SPRAY/16 GM NASL SCH (10:25)
--- NOTE | 2020-05-02 12:56 | PDOC TRANSFER SUMMARY ---
Impression - Admit/DC Date/PCP Admission Date/Primary Care Provider: 04/26/20 18:51 KARTHIKEYAN HERNANDEZ MD Discharge Date: 05/02/20 - Discharge Diagnosis (1) Femur fracture, right Is this a current diagnosis for this admission?: Yes (2) Hyperkalemia Is this a current diagnosis for this admission?: Yes (3) Pneumonia Is this a current diagnosis for this admission?: Yes (4) Morbid obesity with BMI of 40.0-44.9, adult Is this a current diagnosis for this admission?: Yes (5) Acute kidney injury superimposed on chronic kidney disease Is this a current diagnosis for this admission?: Yes (6) COPD (chronic obstructive pulmonary disease) Is this a current diagnosis for this admission?: Yes (7) Complicated UTI (urinary tract infection) Is this a current diagnosis for this admission?: Yes (8) Coronary artery disease Is this a current diagnosis for this admission?: Yes (9) DM type 2 (diabetes mellitus, type 2) Is this a current diagnosis for this admission?: Yes (10) ESBL (extended spectrum beta-lactamase) producing bacteria infection Is this a current diagnosis for this admission?: Yes (11) Functional quadriplegia Is this a current diagnosis for this admission?: Yes (12) HTN (hypertension) Is this a current diagnosis for this admission?: Yes (13) Hyperlipidemia Is this a current diagnosis for this admission?: Yes (14) Infection with multi-drug resistant microorganisms Is this a current diagnosis for this admission?: Yes (15) Morbid (severe) obesity with alveolar hypoventilation Is this a current diagnosis for this admission?: Yes (16) Narcotic dependency, continuous Is this a current diagnosis for this admission?: Yes (17) Obstructive sleep apnea Is this a current diagnosis for this admission?: Yes (18) Chronic pain syndrome Is this a current diagnosis for this admission?: Yes (19) Generalized anxiety disorder Is this a current diagnosis for this admission?: Yes - Assessment Summary: Per Previous Physician: "Patient noted to be hypokalemic with a potassium of 3.1. Her kidney function is improving with a creatinine down to 1.2 fourth one 3.1 on admission white count is down to 7000. Appreciate Infectious disease input. Recommendation is to continue meropenem and azithromycin for 5 days. It is felt that her urine findings may be likely contaminant Patient can likely be discharged 05/02 once she completes antibiotic treatment 04/30 Meropenem was started on April 27 and as per infectious disease suggestion will complete a 5-day course on May 01. Antibiotics can be stopped on May 01 and patient can be discharged to intermediate on May 02 if she remains stable patient was seen by Dr. Edge due to a femoral fracture which she sustained on April 21 prior to this admission. He suggest to continue with knee immobilizer, remain nonweightbearing although may transfer from bed to chair" (1) Femur fracture, right Qualifiers: Encounter type: subsequent encounter Femur location: unspecified portion of femur Fracture type: closed Fracture morphology: unspecified fracture morphology Fracture healing: with routine healing Qualified Code(s): S72.91XD - Unspecified fracture of right femur, subsequent encounter for closed fracture with routine healing Is this a current diagnosis for this admission?: Yes -Orthopedic surgery consulted: No indication for surgery currently, continue knee immobilizer, follow-up as outpatient Ankle x-ray did not show any acute fracture Pain management Long-term resident at [facility] (2) Hyperkalemia Is this a current diagnosis for this admission?: Yes Resolved (3) ruled out pneumonia Pneumonia type: due to unspecified organism Laterality: unspecified laterality Lung location: unspecified part of lung Qualified Code(s): J18.9 - Pneumonia, unspecified organism Is this a current diagnosis for this admission?: Yes No evidence of acute findings on chest x-ray Antibiotics for UTI will also treat pneumonia if this were present however there is little to no evidence that she has a pneumonia (4) Morbid obesity with BMI of 40.0-44.9, adult Needs weight loss, will have to do this via diet alone as her mobility is extremely limited, recommend vegan diet (5) ARF (acute renal failure) Resolved to baseline Is this a current diagnosis for this admission?: Yes (6) Acute and chronic respiratory failure Resolved to baseline breathing Is this a current diagnosis for this admission?: Yes (7) UTI (urinary tract infection) due to urinary indwelling catheter Recurrent, urine culture frequently growing resistant bacteria including VRE and Pseudomonas ID consulted: Continue antibiotics until May 01, completed Recommend exchanging Barton catheter every 2 weeks or sooner. - Additional Information Resuscitation Status: Do Not Resuscitate - And does have a yellow DNR form with her papers Discharge Diet: As Tolerated, Diabetic Discharge Activity: Activity As Tolerated, Balance Activity w/Rest Referrals: KARTHIKEYAN HERNANDEZ MD [Primary Care Provider] - Follow up as needed Home Medications: Acetylcysteine [Mucomist 10% Neb 400 mg/4 mL Vial] 4 ml IH Q6 03/27/20 Allopurinol [Zyloprim 100 mg Tablet] 200 mg PO DAILY 03/27/20 Baclofen [Baclofen 10 mg Tablet] 10 mg PO TID 03/27/20 Budesonide [Pulmicort Neb 0.25 mg/2 ml Ampul] 0.25 mg NEB RTBID 03/27/20 Diltiazem HCl [Cardizem 30 mg Tablet] 30 mg PO Q8 03/27/20 Docusate Sodium [Colace 100 mg Capsule] 100 mg PO QHS 03/27/20 Duloxetine HCl [Cymbalta] 30 mg PO DAILY 03/27/20 Fluticasone Propionate [Flonase Nasal [place] 50 Mcg/[place] 16 gm] 2 spray NASL Q12 03/27/20 Fluticasone/Salmeterol [Advair 500-50 Diskus 14 Dose/Diskus] 1 puff IH Q12 03/27/20 Insulin Aspart [Novolog Insulin (Aspart) 100 unit/mL] 0 unit SUBCUT .SLD SCALE 03/27/20 Insulin Detemir [Levemir Insulin 100 units/mL Insulin Pen] 32 unit SUBCUT QHS 03/27/20 Ipratropium/Albuterol Sulfate [Duoneb 3 ml Ampul] 3 ml NEB RTQ4HP PRN 03/27/20 Magnesium Oxide [Magnesium] 400 mg PO DAILY 03/27/20 Melatonin 10 mg PO QHS 03/27/20 Metoprolol Tartrate [Lopressor 25 mg Tablet] 25 mg PO Q12 03/27/20 Multivitamin [Multiple Vitamins] 1 tab PO DAILY 03/27/20 Nitroglycerin [Nitrostat 0.4 mg (1/150 Gr) Tabs 25/Bottle] 1 tab SL Q5MP PRN 03/27/20 Nystatin [Mycostatin 183087 Unit/1 ml Susp 60 ml Btl] 10 ml PO Q6 03/27/20 Olopatadine HCl [Pataday] 1 drop OU DAILY 03/27/20 Omeprazole Magnesium [Prilosec Otc] 40 mg PO Q6AM 03/27/20 Polymyxin B Sulf/Trimethoprim [Polytrim Eye Drops] 1 drop OU Q6 03/27/20 Polyvinyl Alcohol [Liquitears 1.4% Ophth Soln 15 ml] 1 drop OU Q6 03/27/20 Potassium Chloride [Klor-Con] 20 meq PO BID 03/27/20 Prednisone [Deltasone 20 mg Tablet] 20 mg PO DAILY 03/27/20 Ranolazine [Ranexa 500 mg Tab.sr] 500 mg PO Q12 03/27/20 Roflumilast [Daliresp] 500 mcg PO DAILY 03/27/20 Simethicone [Gas Relief] 80 mg PO Q6 03/27/20 Umeclidinium [place] [Incruse Ellipta] 1 puff IH DAILY 03/27/20 Witch Alicia [Preparation H] 1 each TP QHS 03/27/20 Acetaminophen [Tylenol] 650 mg PO Q4HP PRN 04/26/20 Bupropion HCl [Wellbutrin 75 mg Tablet] 75 g PO DAILY 04/26/20 Buspirone HCl 5 mg PO Q12 04/26/20 Cetirizine HCl [Zyrtec 10 mg Tablet] 10 mg PO DAILY 04/26/20 Diclofenac Sodium [Voltaren Arthritis Pain] 1 gr TOP QID 04/26/20 Hydrocodone/Acetaminophen [[place] 5-325 Tablet] 1 tab PO DAILY 04/26/20 Lidocaine HCl [Xylocaine 2% Jelly 5 ml Tube] 1 applic TOP Q12 04/26/20 Loperamide HCl [Imodium A-D] 2 mg PO Q4HP PRN 04/26/20 Promethazine HCl [Phenergan 25 mg Tablet] 25 mg PO Q6HP PRN 04/26/20 Furosemide [Lasix 40 mg Tablet] 60 mg PO DAILY tablet 05/02/20 Lactulose [Cephulac Syrup 20 gm/30 ml Udcup] 20 gm PO DAILYP PRN udc 05/02/20 History of Present Illiness History of Present Illness: PORSHA WALDRON is a 74 year old female Per Previous Physician: "PORSHA WALDRON is a 74 year old female Patient presents emergency room apparently with difficulty breathing. She was found to be hypoxic on initial presentation. She was given 5 mg of Versed just prior to arrival and it appears patient became nonresponsive. She was bagged by the nursing staff and she also received Romazicon as well as Narcan as she has a fentanyl patch that was removed just prior to arrival. It appears she did not work-up briefly and she was talkative however by the time I saw her patient was lethargic again and hardly arousable. She had green thick phlegm on presentation. She apparently uses BiPAP nocturnally. Please note that this information is obtained solely from the chart as patient is unable to provide any information due to her lethargy. She had a recent fracture and a distal femoral and a status post total knee osteoplasty. She has a Velcro splint on her right lower extremity. The complaint of a cough with yellow sputum and she is noted to be also with a UTI as well as a leukocytosis patient also has a hyperkalemia with potassium of 6.5 and she has an acute kidney injury with a creatinine of 3.16 up from 2.05 just 48 hours ago BUN is 85 up from 60 to 48 hours ago" Hospital Course Hospital Course: Per Previous Physician: "PORSHA WALDRON is a 74 year old female Patient presents emergency room apparently with difficulty breathing. She was found to be hypoxic on initial presentation. She was given 5 mg of Versed just prior to arrival and it appears patient became nonresponsive. She was bagged by the nursing staff and she also received Romazicon as well as Narcan as she has a fentanyl patch that was removed just prior to arrival. It appears she did not work-up briefly and she was talkative however by the time I saw her patient was lethargic again and hardly arousable. She had green thick phlegm on presentation. She apparently uses BiPAP nocturnally. Please note that this information is obtained solely from the chart as patient is unable to provide any information due to her lethargy. She had a recent fracture and a distal femoral and a status post total knee osteoplasty. She has a Velcro splint on her right lower extremity. The complaint of a cough with yellow sputum and she is noted to be also with a UTI as well as a leukocytosis patient also has a hyp erkalemia with potassium of 6.5 and she has an acute kidney injury with a creatinine of 3.16 up from 2.05 just 48 hours ago BUN is 85 up from 60 to 48 hours ago" 05/01/2020 Patient still complaining of significant chronic pain and states that she has severe muscle spasms in her legs and back that are only relieved by Lyrica. She is on a great deal of pain medication prior to admission and she is required this for a very long time due to severe pain in various parts of her body. She states she understands the risks of taking these medications including narcotics and muscle relaxants but she states that is the only way she can have relief. She is essentially immobilized. Her antibiotics for her recurrent UTI will end today. Unclear if she keeps developing metabolic encephalopathy due to purely pain medications or UTI or combination of both. She has no new complaints today. On day of discharge, patient is stable, completed antibiotics yesterday. Overall well-appearing but still complaining of her chronic pain as usual. I have increased her Lyrica as she states this is the most effective pain medication she takes. We will discontinue her fentanyl patch at this time. She needs prompt follow-up with pain management and should follow with them closely from here on out. She will likely be frequently readmitted in the future for recurrent UTI, pneumonia, and polypharmacy. I have discussed rehab with the patient she is not very interested in pursuing aggressive rehab due to her chronic pain. She mentioned going on hospice but then retracted this statement when asked her about it. She may very well be a candidate for hospice in the near future. Physical Exam Vital Signs: Temp Pulse Resp BP Pulse Ox 97.8 F 94 15 151/72 H 100 05/02/20 08:00 05/02/20 09:00 05/02/20 09:00 05/02/20 08:00 05/02/20 09:00 Intake & Output 05/01/20 05/02/20 05/03/20 06:59 06:59 06:59 Intake Total 1150 Output Total 1725 Balance -575 Weight 89.1 kg Exam: General appearance: PRESENT: no acute distress, well-developed, well-nourished, obese, states she has chronic pain which is about the same as it usually is Head exam: PRESENT: atraumatic, normocephalic Eye exam: PRESENT: conjunctiva pink. ABSENT: scleral icterus Mouth exam: PRESENT: moist Respiratory exam: PRESENT: clear to auscultation elia. ABSENT: rales, rhonchi, wheezes Cardiovascular exam: PRESENT: RRR. ABSENT: diastolic murmur, rubs, systolic murmur GI/Abdominal exam: PRESENT: normal bowel sounds, soft. ABSENT: distended, guarding, mass, organolmegaly, rebound, tenderness Neurological exam: PRESENT: alert, awake, oriented to person, oriented to place, oriented to time, oriented to situation Psychiatric exam: PRESENT: appropriate affect, normal mood Skin exam: PRESENT: dry, intact, warm Results Laboratory Results: WBC 7.7 10^3/uL (4.0-10.5) 04/29/20 06:23 RBC 3.34 10^6/uL (3.72-5.28) L 04/29/20 06:23 Hgb 10.3 g/dL (12.0-15.5) L 04/29/20 06:23 Hct 30.3 % (36.0-47.0) L 04/29/20 06:23 MCV 91 fl (80-97) 04/29/20 06:23 MCH 30.7 pg (27.0-33.4) 04/29/20 06:23 MCHC 33.9 g/dL (32.0-36.0) 04/29/20 06:23 RDW 15.9 % (11.5-14.0) H 04/29/20 06:23 Plt Count 212 10^3/uL (150-450) 04/29/20 06:23 Lymph % (Auto) 13.3 % (13-45) 04/29/20 06:23 [place] % (Auto) 9.3 % (3-13) 04/29/20 06:23 Eos % (Auto) 0.3 % (0-6) 04/29/20 06:23 Baso % (Auto) 0.0 % (0-2) 04/29/20 06:23 Absolute Neuts (auto) 6.0 10^3/uL (1.7-8.2) 04/29/20 06:23 Absolute Lymphs (auto) 1.0 10^3/uL (0.5-4.7) 04/29/20 06:23 Absolute Monos (auto) 0.7 10^3/uL (0.1-1.4) 04/29/20 06:23 Absolute Eos (auto) 0.0 10^3/uL (0.0-0.6) 04/29/20 06:23 Absolute Basos (auto) 0.0 10^3/uL (0.0-0.2) 04/29/20 06:23 Total Counted 100 04/26/20 16:05 Seg Neutrophils % 77.1 % (42-78) 04/29/20 06:23 Seg Neuts % (Manual) 93 % (42-78) H 04/26/20 16:05 Band Neutrophils % 1 % (3-5) L 04/26/20 16:05 Lymphocytes % (Manual) 0 % (13-45) L 04/26/20 16:05 Atypical Lymphs % 1 % (0) 04/26/20 16:05 Monocytes % (Manual) 5 % (3-13) 04/26/20 16:05 Eosinophils % (Manual) 0 % (0-6) 04/26/20 16:05 Basophils % (Manual) 0 % (0-2) 04/26/20 16:05 Abs Neuts (Manual) 12.0 10^3/uL (1.7-8.2) H 04/26/20 16:05 Abs Lymphs (Manual) 0.1 10^3/uL (0.5-4.7) L 04/26/20 16:05 Abs Monocytes (Manual) 0.6 10^3/uL (0.1-1.4) 04/26/20 16:05 Absolute Eos (Manual) 0.0 10^3/uL (0.0-0.6) 04/26/20 16:05 Abs Basophils (Manual) 0.0 10^3/uL (0.0-0.2) 04/26/20 16:05 Clumped Platelets PRESENT 04/26/20 16:05 Platelet Comment ADEQUATE 04/26/20 16:05 RBC Morph Comment NORMO-CYTIC/CHROMIC 04/26/20 16:05 PT 15.4 SEC (11.4-15.4) 04/26/20 16:05 INR 1.20 04/26/20 16:05 APTT 39.6 SEC (23.5-35.8) H 04/26/20 16:05 Carbonic Acid 1.56 mmol/L (1.05-1.35) H 04/27/20 06:25 HCO3/H2CO3 Ratio 17:1 04/27/20 06:25 ABG pH 7.34 (7.35-7.45) L 04/27/20 06:25 ABG pCO2 51.9 mmHg (35-45) H 04/27/20 06:25 ABG pO2 110.2 mmHg (80-100) H 04/27/20 06:25 ABG HCO3 27.3 mmol/L (20-24) H 04/27/20 06:25 ABG Total CO2 28.9 mmol/L (21-25) H 04/27/20 06:25 ABG O2 Saturation 97.7 % (94-98) 04/27/20 06:25 ABG Base Excess 1.1 mmol/L 04/27/20 06:25 FiO2 30% 04/27/20 06:25 Sodium 136.7 mmol/L (137-145) L 05/02/20 08:00 Potassium 3.8 mmol/L (3.6-5.0) 05/02/20 08:00 Chloride 88 mmol/L (98-107) L 05/02/20 08:00 Carbon Dioxide 39 mmol/L (22-30) H 05/02/20 08:00 Anion Gap 10 (5-19) 05/02/20 08:00 BUN 33 mg/dL (7-20) H 05/02/20 08:00 Creatinine 0.80 mg/dL (0.52-1.25) 05/02/20 08:00 Est GFR ( Amer) > 60 (>60) 05/02/20 08:00 Est GFR (MDRD) Non-Af > 60 (>60) 05/02/20 08:00 Glucose 110 mg/dL (75-110) 05/02/20 08:00 POC Glucose 159 mg/dL (70-110) H 05/02/20 09:33 Calcium 10.5 mg/dL (8.4-10.2) H 05/02/20 08:00 Total Bilirubin 0.6 mg/dL (0.2-1.3) 04/26/20 16:05 Direct Bilirubin 0.5 mg/dL (0.0-0.4) H 04/26/20 16:05 Neonat Total Bilirubin Not Reportable 04/26/20 16:05 Neonat Direct Bilirubin Not Reportable 04/26/20 16:05 Neonat Indirect Bili Not Reportable 04/26/20 16:05 AST 27 U/L (14-36) 04/26/20 16:05 ALT 22 U/L (<35) 04/26/20 16:05 Alkaline Phosphatase 92 U/L (38-126) 04/26/20 16:05 Troponin I 0.035 ng/mL 04/26/20 16:05 NT-Pro-B Natriuret Pep 857 pg/mL (<450) H 04/26/20 16:05 Total Protein 7.5 g/dL (6.3-8.2) 04/26/20 16:05 Albumin 3.7 g/dL (3.5-5.0) 04/26/20 16:05 Urine Color GODFREY 04/26/20 17:10 Urine Appearance SLIGHTLY-CLOUDY 04/26/20 17:10 Urine pH 5.0 (5.0-9.0) 04/26/20 17:10 Ur Specific Raymond 1.018 04/26/20 17:10 Urine Protein NEGATIVE mg/dL (NEGATIVE) 04/26/20 17:10 Urine Glucose (UA) NEGATIVE mg/dL (NEGATIVE) 04/26/20 17:10 Urine Ketones NEGATIVE mg/dL (NEGATIVE) 04/26/20 17:10 Urine Blood NEGATIVE (NEGATIVE) 04/26/20 17:10 Urine Nitrite NEGATIVE (NEGATIVE) 04/26/20 17:10 Urine Bilirubin NEGATIVE (NEGATIVE) 04/26/20 17:10 Urine Urobilinogen NEGATIVE mg/dL (<2.0) 04/26/20 17:10 Ur Leukocyte Esterase MODERATE (NEGATIVE) H 04/26/20 17:10 Urine WBC (Auto) 30 /HPF 04/26/20 17:10 Urine RBC (Auto) 8 /HPF 04/26/20 17:10 U Hyaline Cast (Auto) 13 /LPF 04/26/20 17:10 Urine Bacteria (Auto) 3+ /HPF 04/26/20 17:10 Squamous Epi Cells Auto 5 /HPF 04/26/20 17:10 Urine Mucus (Auto) OCC /LPF 04/26/20 17:10 Urine Ascorbic Acid NEGATIVE (NEGATIVE) 04/26/20 17:10 04/26/20 16:05 Troponin I 0.035 NT-Pro-B Natriuret Pep 857 H Impressions: Chest X-Ray 04/26/20 16:12 IMPRESSION: 1. Marked generalized cardiomegaly, unchanged finding since the prior study dated 03/27/2020. 2. Chronic mild changes. No acute pulmonary consolidation. Ankle X-Ray 04/29/20 00:00 IMPRESSION: Mild calf edema. No displaced fractures. Plan Plan of Treatment: Follow-up with PCP Follow-up with pain management Follow-up with urology Time Spent: Greater than 30 Minutes Stroke Is this a Stroke Patient?: No Acute Heart Failure Is this a Heart Failure Patient?: No
[2020-05-02 14:54] VITALS: BP 151/72
[2020-05-02] MEDS ORDERED: PREGABALIN 75 MG CAPSULE PO SCH (18:00)
== END 2020-05-02 15:06 | DRG 189 ==
LOC: ER 15:43 → EH 18:51 → 3S 21:18 → 3W 05-01 15:18
PROVIDERS: ADMIT Internal Medicine; ATTEND Internal Medicine
PROC: 5A09557 Assistance with Respiratory Ventilation, Greater than 96 Consecutive Hours, Continuous Positive Airway Pressure (ICD-10-PCS; principal; 2020-04-26)
DX: J96.21 Acute and chronic respiratory failure with hypoxia (principal); R53.2 Functional quadriplegia; T83.511A Infection and inflammatory reaction due to indwelling urethral catheter, initial encounter; Z68.41 Body mass index [BMI] 40.0-44.9, adult; N17.9 Acute kidney failure, unspecified; J44.0 Chronic obstructive pulmonary disease with (acute) lower respiratory infection; Z16.12 Extended spectrum beta lactamase (ESBL) resistance; Z16.24 Resistance to multiple antibiotics; E66.2 Morbid (severe) obesity with alveolar hypoventilation; F11.20 Opioid dependence, uncomplicated; Z16.21 Resistance to vancomycin; J96.01 Acute respiratory failure with hypoxia; Z66 Do not resuscitate; E87.5 Hyperkalemia; I25.10 Atherosclerotic heart disease of native coronary artery without angina pectoris; G89.4 Chronic pain syndrome; F41.1 Generalized anxiety disorder; Y84.6 Urinary catheterization as the cause of abnormal reaction of the patient, or of later complication, without mention of misadventure at the time of the procedure; B96.5 Pseudomonas (aeruginosa) (mallei) (pseudomallei) as the cause of diseases classified elsewhere; B95.2 Enterococcus as the cause of diseases classified elsewhere; E03.9 Hypothyroidism, unspecified; D63.1 Anemia in chronic kidney disease; J44.9 Chronic obstructive pulmonary disease, unspecified; K21.9 Gastro-esophageal reflux disease without esophagitis; F03.90 Unspecified dementia, unspecified severity, without behavioral disturbance, psychotic disturbance, mood disturbance, and anxiety; E11.22 Type 2 diabetes mellitus with diabetic chronic kidney disease; N18.32 Chronic kidney disease, stage 3b; S72.91XD Unspecified fracture of right femur, subsequent encounter for closed fracture with routine healing; I25.2 Old myocardial infarction; I12.9 Hypertensive chronic kidney disease with stage 1 through stage 4 chronic kidney disease, or unspecified chronic kidney disease; Z79.899 Other long term (current) drug therapy; Z79.51 Long term (current) use of inhaled steroids; Z79.4 Long term (current) use of insulin; Z86.718 Personal history of other venous thrombosis and embolism; Z86.14 Personal history of Methicillin resistant Staphylococcus aureus infection; Z74.01 Bed confinement status; Z83.3 Family history of diabetes mellitus; Z82.49 Family history of ischemic heart disease and other diseases of the circulatory system; Z82.3 Family history of stroke; Z91.040 Latex allergy status; Z88.2 Allergy status to sulfonamides; Z88.8 Allergy status to other drugs, medicaments and biological substances; Z91.048 Other nonmedicinal substance allergy status
CPT/HCPCS: 36415; 36600; 71045; 80048; 80053; 81001; 82803; 82962; 83880; 84484; 85025; 85610; 85730; 87086; 87088; 87186; 93005; 93010; 94660; 96361; 96365; 96374; 96375; 99285; C9113; J0696; J1170; J1650; J1815; J2185; J2310; J2405; J3490; J7030; J7512; J7608